=== PATIENT | female | born 1995 | race Caucasian/White ===

== ENCOUNTER → 2017-08-30 | Outpatient (CLI) | payer BC | END | disposition home or self-care (01) | LOC: C.LABSPEC 10:52 | PROVIDERS: ATTEND Physician Assistant | DX: N91.2 Amenorrhea, unspecified (principal) ==

== ENCOUNTER 2023-10-30 07:46 | Inpatient (IN) ==
[2023-10-30] MEDS ORDERED: LIDOCAINE 1% LOCAL 20 ML VIAL INFIL PRN (08:49)
[2023-10-30] MEDS ORDERED: OXYTOCIN 30 UNITS/NSS 30 UNITS/500 ML BAG IV PRN (08:49)
[2023-10-30 08:56] LABS: Hematocrit (blood only) 32.7 % (37.0-47.0); Hemoglobin 11.1 g/dl (12.0-16.0); Mean Corpuscular Hgb Conc 33.9 g/dL (32.0-36.0); Mean Corpuscular Volume 97.3 fL (80.0-100.0); Mean Platelet Volume 10.3 fL (9.4-12.4); Platelet Count 149 K/uL (130-400); RDW Coefficient of Variation 12.7 % (11.5-14.5); RDW Standard Deviation 44.4 fL (36.4-46.3); Red Blood Count 3.36 M/uL (4.20-5.40); White Blood Count 7.98 K/ul (4.8-10.8)
--- NOTE | 2023-10-30 09:41 | Obstetrical Progress Note ---
Date of Service October 30, 2023 Assessment & Plan (1) : Plan: at 39 + weeks GDMA! Pending macrosomia FHR; CAT1 Ctx Minimal VE: Ft/thick/post Good bulb placed w/o difficulty. 30cc saline used Mild bleeding noticed after placement Admission and Anticipated Discharge Date Admission Date: October 30, 2023 Results & Data Vital Signs (Past 12 Hours) Vital Signs Temp Pulse Resp BP 10/30/23 07:57 101 H 117/61 10/30/23 07:53 36.6 C 18
[2023-10-30] MEDS: LACTATED RINGER'S 1,000 ML IV PRN (10:05)
--- NOTE | 2023-10-30 12:16 | Obstetrical Progress Note ---
Date of Service October 30, 2023 Assessment & Plan (1) : Plan: Induction day off Good fell out FHR ; CAT1 Ctx; 2-4mins VE; 3/50/-3 EFW By Lisa; 8-9lbs Pitocin augmentation Admission and Anticipated Discharge Date Admission Date: October 30, 2023 Results & Data Vital Signs (Past 12 Hours) Vital Signs Temp Pulse Resp BP 10/30/23 07:57 101 H 117/61 10/30/23 07:53 36.6 C 18
[2023-10-30] MEDS: OXYTOCIN 30 UNITS/NSS 30 UNITS/500 ML BAG IV PRN (12:17)
[2023-10-30] MEDS ORDERED: NALOXONE HCL 0.4 MG/1 ML VIAL/CARP IV PRN (16:05)
[2023-10-30] MEDS ORDERED: NALOXONE HCL 1 MG in SODIUM CHLORIDE 0.9% 1,000 ML IV PRN (16:05)
[2023-10-30] MEDS ORDERED: ROPIVACAINE 0.5% PF 5 MG/ML 20 ML VIAL EPI PRN (16:05)
[2023-10-30] MEDS ORDERED: NALBUPHINE HCL 5 MG in SYRINGE 0 ML IV PRN (16:05)
[2023-10-30] MEDS ORDERED: LIDOCAINE 2% MPF LOCAL 5 ML VIAL EPI PRN (16:05)
[2023-10-30] MEDS ORDERED: diphenhydrAMINE 50 MG/ML VIAL IV PRN (16:05)
[2023-10-30] MEDS: fentANYL 2 MCG/ML BUPIVacaine 0.125%-NSS 100ML BAG EPI PRN (16:20)
--- NOTE | 2023-10-30 16:24 | Anesthesiology Consultation ---
Date of Service October 30, 2023 Assessment & Plan Chart Review Chart Review: Acceptable Risk for Labor Epidural Consults Requested none History Height/Weight Height: 5 ft 9 in Weight: 108.409 kg Allergies Allergy/AdvReac Type Severity Reaction Status Date / Time No Known Allergies Allergy Verified 04/23/23 08:42 Medications Home Medications Medication Instructions Recorded Confirmed Last Taken vit with calcium-iron 1 tab PO HS 04/18/23 10/30/23 10/29/23 22:00 fum-folic acid 60 mg-0.8 mg tablet Active Medications Generic Name Dose Route Start Last Admin Trade Name Freq PRN Reason Stop Dose Admin Lactated Ringer's 1,000 mls @ 125 mls/hr 10/30/23 08:49 10/30/23 15:35 Lr IV 11/01/23 08:48 999 mls/hr .Q8H PRN Administration L&D Protocol Protocol Oxytocin 30 units in 500 mls @ 12 mls/hr 10/30/23 11:55 10/30/23 15:00 Pitocin 30 Units/Nss IV 11/01/23 11:54 0.72 units/hr .Q24H PRN 12 mls/hr Labor Induction/Augmentation Titration Protocol 0.72 UNITS/HR Past Surgical History Surgical History (Updated 10/30/23 @ 08:14 by Ciarra Betancourt RN) Holden teeth removed No history of previous surgery Social History Smoking Status: Never smoker Do You Dip or Chew Tobacco: No Hx Alcohol Use: No Hx Substance Use: No Physical Exam Vital Signs Last Vital Signs Temp 36.9 C 10/30/23 12:20 Pulse 85 10/30/23 16:21 Resp 20 10/30/23 12:20 BP 108/71 10/30/23 16:21 Pulse Ox 97 10/30/23 16:21 Testing Laboratory Results 10/30/23 08:33 Blood Type A Positive 10/30/23 08:33 Antibody Screen NEGATIVE 10/30/23 08:33 10/30/23 10:08 POC Glucose 76
[2023-10-30] MEDS ORDERED: NURSING L&D Epidural Breakthrough Pain Update ONE (17:56)
--- OUTSIDE RECORDS SUMMARY | 2023-10-30 17:57 | External Medical Summary | Summary of Care ---
Author Name Unknown Organization [facility] Address [address] [place] [place] [address] Phone [phone] Care Team Providers Care Rn Imcu Name Role Phone Malinda Owens Primary Care Provider [phone] Reason for Visit * Reason Comments Return Visit Encounter Details Date Type Department Care Team (Late st Contact Info) Description 10/29/2023 8:45 AM EDT [facility] [address] [place] [address] Praveen aCrranza MD [address] [place] [id number] Encounter for supervision of other normal , unspecified trimester*; Class 1 obesity due to excess calories without serious comorbidity with body mass index (BMI) of 33.0 to 33.9 in adult; Antepartum anemia complicating ; Excessive growth affecting management of , antepartum, single or unspecified fetus; Diet controlled gestational diabetes mellitus (GDM) in third trimester Allergies No known active allergiesdocumented as of this encounter (statuses as of 10/29/2023) Medications Medication Sig Dispensed Refills Start Date End Date Status 19 29-1 MG Oral Tablet Chewable Take by mouth. 0 Active Vitamin B-12 1000 MCG Oral Tablet (Cyanocobalamin)Indica tions:Antepartum anemia complicating Take 1 Tablet by mouth in the morning. 30 Tablet 5 08/14/2023 Active OneTouch Verio Flex System w/Device KitIndications:Diet controlled gestational diabetes mellitus (GDM) in third trimester Use to test blood sugars 4 times daily (fasting, 1 hour after breakfast, lunch, and dinner) 1 Kit 0 09/20/2023 Active [employer]ite In Vitro Strip (Glucose Blood)Indications:Diet controlled gestational diabetes mellitus (GDM) in third trimester Use to test blood sugars 4 times daily (fasting, 1 hour after breakfast, lunch, and dinner) 125 Strip 6 09/20/2023 Active [employer] Delica Lancets 30GIndications:Diet controlled gestational diabetes mellitus (GDM) in third trimester Use to test blood sugars 4 times daily (fasting, 1 hour after breakfast, lunch, and dinner) 200 Each 6 09/20/2023 Active documented as of this encounter (statuses as of 10/29/2023) Active Problems Problem Noted Date Diagnosed Date Diet controlled gestational diabetes mellitus (GDM) in third trimester 09/20/2023 Overview: 09/20/23 Repeated 3hr GTT at 33w d/t LGA, failed. MFM referral placed for ADAPT. Diagnosed at 33 weeks Nutrition consult 09/24/23 Lab Results Component Value Date/Time 50-G GESTATIONAL GLUCOSE, 1 HOUR - [facility] 169 (H) 04/19/2023 09:23 AM 100-G GESTATIONAL GLUCOSE, 1 HOUR - [facility] 216 (H) 09/19/2023 01:52 PM 100-G GESTATIONAL GLUCOSE, 2 HOUR - [facility] 258 (H) 09/19/2023 02:54 PM 100-G GESTATIONAL GLUCOSE, 3 HOUR - [facility] 139 09/19/2023 03:51 PM 100-G GESTATIONAL GLUCOSE, FASTING - [facility] 74 09/19/2023 12:54 PM 09/21/23: MFM ADAPT consult complete. Enrolled in Current Health. 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 Instructions provided to report blood sugars each week for MFM review 09/25/23: RPM reviewed; Stable; continue diet controlled 10/03/23: RPM reviewed; Stable 10/09/23: RPM reviewed; Stable overall; continue diet controlled 10/16/23: RPM reviewed; Stable 10/23/23: RPM reviewed; Stable; diet controlled Last Assessment & Plan: She presents for follow-up of growth secondary to GDMA1, previously noted LGA, and class I obesity. Blood glucose values have been well-controlled with diet. Today's ultrasound notes the following: The estimated weight is large for gestational age in the 94th percentile. The visualized anatomy is unremarkable in appearance. The DEYSI is normal. Excessive growth affec ting management of mother, antepartum 09/14/2023 Last Assessment & Plan: CONSIDERATIONS: Reviewed that weight greater than 90%ile is considered "large for gestational age" (LGA). Discussed associated risks (e.g., difficult labor progress or delivery, hemorrhage, shoulder dystocia). LGA may be related to constitutional factors (e.g., male gender, ethnicity), environmental factors (maternal diabetes/obesity/weight gain), or genetic conditions. Discussed the limitations of ultrasound in predicting weight, especially at later gestational ages. RECOMMENDATIONS: Recommend delivery without trial of labor for estimated weight greater than 4500 gm in the diabetic woman. Based on the current EFW, she is a candidate for a trial of labor. Concern for macrosomia/LGA is NOT an indication for induction of labor, though elective induction after 39 weeks can be considered per patient/provider preferences. The patient should discuss further management and delivery plan with her primary OB provider. Iron deficiency anemia 08/21/2023 Antepartum anemia complicating 024 Overview: Receiving IV iron infusions Anemia Labs Lab Results Component Value Date/Time HGB 10.7 (L) 08/13/2023 07:56 AM HGB 12.2 04/18/2023 12:00 AM HCT 32.3 (L) 08/13/2023 07:56 AM FERRITIN - [facility] 19 08/13/2023 07:56 AM VITAMIN B12 - [facility] 160 (L) 08/13/2023 07:56 AM FOLIC ACID - [facility] >20.0 08/13/2023 07:56 AM IRON BINDING CAPACITY - [facility] 430 (H) 08/13/2023 07:56 AM MCV 103.2 08/13/2023 07:56 AM Last Assessment & Plan: CONSIDERATIONS: Severe maternal anemia (hemoglobin levels below 6 to 7 g/dl) is associated with oligohydramnios, cerebral vasodilation, delivery, miscarriage, growth restriction, nonreassuring heart rate patterns, and stillbirth. There is also an increased risk for maternal . RECOMMENDATIONS: If hemoglobin is below 11 g/dl during first and third trimesters or less than10.5 g/dL in 2nd trimester, we recommend anemia studies to assess serum ferritin, iron, iron binding capacity, transferritin saturation, and hemoglobin electrophoresis. If iron-deficiency anemia is confirmed, then we recommend iron supplementation with oral (preferred) or parenteral therapy (if recommended by blood conservation program after oral therapy has failed) as indicated to keep hemoglobin level above 11 g/dl during . Oral iron should be taken with orange juice. If anemia studies do not reflect iron deficiency anemia we recommend checking TSH, B12 and folate levels and referral to a tire mold tester. If hemoglobin levels are below 8 g/dl, we recommend Maternal Medicine ultrasound for growth every 4 weeks after 24 weeks. Consider a blood transfusion if hemoglobin levels fall below 6 g/dL. ([employer] Bulletin Number 95, December,). Consider Venofer transfusions if patient labs supportive of iron deficiency anemia with dosing of 300 mg IV weekly x 3 weeks Encounter for supervision of other normal , unspecified trimester 04/03/2023 Class 1 obesity due to exces s calories without serious comorbidity with body mass index (BMI) of 33.0 to 33.9 in adult 04/03/2023 Overview: Early glucola Estimated Date of Delivery Comme nts Yes 11/02/2023 Based on Ultraso und documented as of this encounter (statuses as of 10/29/2023) Resolved Problems Problem Noted Date Diagnosed Date Resolved Date Abnormal glucose tolerance i n mother complicating 04/19/2023 08/31/2023 Overview: Failed early glucola. 3hr GTT ordered documented as of this encounter (statuses as of 10/29/2023) Immunizations Name Administration Dates Next Due DTP Vaccine 01/02/1997, 5,1994,05/19 DTaP Dipth/Tet/Acell Pertussis (Infanrix), Peds 01/18/2000,01/02/1997 HEP A - Hepatitis A (Adult > 18 yrs) 08/22/2019 HPV Vaccine, 4-Valent 11/13/2012,03/21/2012 Haemophilius B (HIB), unspecified 1994,,1994 Hep A - Hepatitis A (ped/ado le, 1-18 Yrs) 11/13/2012,02/02/2010 Hepatitis A Vaccine 02/02/2010 Hepatitis B, 0-19 yrs 02/17/1995,1994,07/1993 IPV - Polio Virus Vaccine (Inact) 01/18/2000 MMR - Measles/Mumps/Rubella Vaccine 01/18/2000,0 07/26/1995 Meningococcal Conjugate Vacc ine (Menactra/Menveo) 02/02/2010 Meningococcal MCV4P Conjugat e Vaccine (Menactra) 11/13/2012 OPV - Polio Virus Vaccine (Oral) 000,01/02/1997,1994,05/19 Seasonal Influenza Virus Vac cine, Unspecified Formulation 04/08/2012,04/13/2010,04/09/2009 Seasonal Influenza, PF, 6 M & above, IM , (FluLaval or Fluzone) 05/17/2023,08/21/2019 Seasonal Influenza, Split, I IV3, With Preserve, Inj 04/08/2012,04/13/2010 TDAP (age 10 and older)(Boostrix) 08/13/2023,11/2019 TDAP (age 11 and older)(Adacel) 09/17/2008 Varicella Vaccine (Chicken Pox) 09/17/2008,11/07 documented as of this encounter Social History Tobacco Use Types Packs/Day Years Used Date Smoking Tobacco: Never Smokeless Tobacco: Never Alcohol Use Standard Drinks/Week Comments Not Currently 0 (1 standard drink = 0.6 oz pur e alcohol) Hunger Vital Sign Answer Date Recorded Within the past 12 months, y ou worried that your food would run out before you got the money to buy more. Never true 01/20/20 23 Within the past 12 months, t he food you bought just didn't last and you didn't have money to get more. Never true 01/19/2023 [place] Depression Scale Answer Date Recorded [place] Depression Scale Total 5 09/28/2023 The thought of harming myself has occurred to me . Never 09/28/2023 Estimated Date of Delivery Comme nts Yes 11/02/2023 Based on Ultraso und Sex and Gender Information Value Date Recorded Sex Assigned at Female 01/19/2023 1:52 PM EDT Gender Identity Female 01/19/2023 1:52 PM EDT Sexual Orientation Straight 01/19/2023 1: 52 PM EDT Job Start Date Occupation Industry Not on file Not on file Not on file documented as of this encounter Last Filed Vital Signs Vital Sign Reading Time Taken Comments Blood Pressure 100/60 10/29/2023 9:02 AM EDT Pulse - - Temperature - - Respiratory Rate - - Oxygen Saturation - - Inhaled Oxygen Concentration - - Weight 108.4 kg (239 lb) 10/29/2023 9:02 AM EDT Height 175.3 cm (5' 9") 10/29/2023 9:02 AM EDT Body Mass Index 35.29 10/29/2023 9:02 AM EDT documented in this encounter Progress Notes * Praveen Carranza MD - 10/29/2023 9:20 AM EDT Pt doing well No complaints VE; FT Tamara for induction tomorrow documented in this encounter Nursing Notes * Eli Calles LPN - 10/29/2023 8:59 AM EDT 39w3d IOL tomorrow documented in this encounter Plan of Treatment Upcoming Encounters Date Type Department Care Team (Late st Contact Info) Description 05/12/2024 10:00 AM EST Office Visit Family Practice [facility] [address] [address] Malinda Owens CRNP [address] [id number] Health Maintenance Due Date Last Done Comments Depression Screening 2006 GARDASIL-HPV IMMUNIZATION SERIES (3 - 3-dose series) 02/05/2013 11/13/2012, 03/21/2012 COVID-19 Vaccine ( - 2022- season) 2023 Pap Smear 01/29/2026 01/29/2023, 11/17, 07/17/2018, Additional history exists DTaP,Tdap,and Td Vaccines (9 - Td or Tdap) 08/13/2033 08/13/2023, 08/22/2019, 09/17/2008, Additional history exists Hepatitis B Completed 02/17/1995, 07/1993, 1994 MENINGOCOCCAL (MENACTRA/MENVEO) Completed 11/13/2012, 02/02/2010 Influenza Vaccine (FLU shot) Completed , 08/21/2019, 04/08/2012, Additional history exists Pneumococcal Vaccine: Pediatrics (0 to 5 Years) and At-Risk Patients (6 to 64 Years) Aged Out No longer eligible based on patient's age to complete this topic documented as of this encounter Medical Devices Not on filedocumented as of this encounter Visit Diagnoses Diagnosis Encounter for supervision of other normal , unspecified trimester- Primary Class 1 obesity due to excess calories without serious comorbidity with body mass index (BMI) of 33.0 to 33.9 in adult Antepartum anemia complicating Anemia, antepartum Excessive growth affecting management of , antepartum, single or unspecified fetus Diet controlled gestational diabetes mellitus (GDM) in third trimester documented in this encounter Care Teams Rn Imcu Relationship Specialty Start Date End Date Malinda Owens CRNP [address] [id number] PCP - General Nurse Practitioner 09/20/23 documented as of this encounter
--- OUTSIDE RECORDS SUMMARY | 2023-10-30 17:57 | External Medical Summary | Summary of Care ---
Author Name Unknown Organization [facility] Address [address] [place] [place] [address] Phone [phone] Care Team Providers Care Foster Parent Name Role Phone Malinda Owens Primary Care Provider [phone] Reason for Visit * Reason Comments Return Visit Encounter Details Date Type Department Care Team (Late st Contact Info) Description 10/24/2023 3:00 PM EDT [facility] [address] [place] [address] Praveen Carranza MD [address] [place] [phone] Encounter for supervision of other normal , [...] as of this encounter (statuses as of 10/24/2023) Medications Medication Sig Dispensed Refills Start Date [...] and dinner) 1 Kit 0 09/20/2023 Active [employer] In Vitro Strip (Glucose Blood)Indications:Diet controlled gestational diabetes mellitus (GDM) in third trimester Use to test blood sugars 4 times daily (fasting, 1 hour after breakfast, lunch, and dinner) 125 Strip 6 09/20/2023 Active [employer] Delica Lancets 30GIndications:Diet controlled gestational diabetes mellitus (GDM) in third trimester Use to test blood sugars 4 times daily (fasting, 1 hour after breakfast, lunch, and dinner) 200 Each 6 09/20/2023 Active documented as of this encounter (statuses as of 10/24/2023) Active Problems Problem Noted Date Diagnosed Date [...] complete. Enrolled in Current Health. 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 Instructions provided [...] and folate levels and referral to a linux administrator. If hemoglobin levels are below 8 g/dl, we recommend Maternal Medicine ultrasound for growth every 4 weeks after 24 weeks. Consider a blood transfusion if hemoglobin levels fall below 6 g/dL. ([employer] Bulletin Number 95, December,). Consider Venofer [...] as of this encounter (statuses as of 10/24/2023) Resolved Problems Problem Noted Date Diagnosed Date Resolved Date Abnormal glucose tolerance i n mother complicating 04/19/2023 08/31/2023 Overview: Failed early glucola. 3hr GTT ordered documented as of this encounter (statuses as of 10/24/2023) Immunizations Name Administration Dates Next Due DTP [...] money to get more. Never true 01/19/2023 [place] Depression Scale Answer Date Recorded [place] Depression Scale Total 5 09/28/2023 The thought [...] Sign Reading Time Taken Comments Blood Pressure 98/60 10/24/2023 3:08 PM EDT Pulse - - Temperature - - Respiratory Rate - - Oxygen Saturation - - Inhaled Oxygen Concentration - - Weight - - Height 175.3 cm (5' 9") 10/24/2023 3:08 PM EDT Body Mass Index - - documented in this encounter Progress Notes * Praveen Carranza MD - 10/24/2023 3:42 PM EDT Pt doing well GDMA1 on diet EFW done by MFM is 8;9lbs Discussed induction of labor Pt is agreeable VE; ft.post/thick Tamara for induction on 10/30/23 * Eli Calles LPN - 10/24/2023 3:08 PM EDT 38w5d Concerns with growth scan documented in this encounter Plan of Treatment Upcoming Encounters Date Type Department Care Team (Late st Contact Info) Description 10/29/2023 8:45 AM EDT Office Visit Gynecology/Obstetrics [facility] [address] [address] Praveen Carranza MD [address] [phone] 05/12/2024 10:00 AM EST Office Visit Family Practice [facility] [address] [phone] Malinda Owens CRNP [address] [place] [place] [address] Health Maintenance Due Date Last Done Comments Depression Screening 2006 GARDASIL-HPV IMMUNIZATION SERIES (3 - 3-dose series) 02/05/2013 11/13/2012, 03/21/2012 COVID-19 Vaccine ( season) 2023 Pap Smear 01/29/2026 01/29/2023, 11/17, [...] trimester documented in this encounter Care Teams Foster Parent Relationship Specialty Start Date End Date Malinda Owens CRNP [address] [phone] PCP - General Nurse Practitioner 09/20/23 documented as of this encounter
--- OUTSIDE RECORDS SUMMARY | 2023-10-30 17:58 | External Medical Summary | Summary of Care ---
Author Name Unknown Organization [facility] Address [address] [place] [address] Phone [phone] Care Team Providers Care Latex Caster Name Role Phone Malinda Owens Primary Care Provider [phone] Reason for Visit * Reason Comments Ultrasound Encounter Details Date Type Department Care Team (Late st Contact Info) Description 10/19/2023 2:45 PM EDT Office Visit Fire Official Obstetrics Maternal Medicine, [place] [address] [place], [place] [phone] Cam Sim, [address], [place] [phone] Diet controlled gestational diabetes mellitus (GDM) in third trimester*; Excessive growth affecting management of , antepartum, single or unspecified fetus Allergies No known active allergiesdocumented as of this encounter (statuses as of 10/22/2023) Medications Medication Sig Dispensed Refills Start Date End Date Status 19 29-1 MG Oral Tablet Chewable Take by mouth. 0 Active Vitamin B-12 1000 MCG Oral Tablet (Cyanocobalamin)Indica tions:Antepartum anemia complicating Take 1 Tablet by mouth in the morning. 30 Tablet 5 08/14/2023 Active STAR FESTIVALToAskBot Verio Flex System w/Device KitIndications:Diet controlled gestational diabetes mellitus (GDM) in third trimester Use to test blood sugars 4 times daily (fasting, 1 hour after breakfast, lunch, and dinner) 1 Kit 0 09/20/2023 Active Affaredelgiornouch Verio In Vitro Strip (Glucose Blood)Indications:Diet controlled gestational diabetes mellitus (GDM) in third trimester Use to test blood sugars 4 times daily (fasting, 1 hour after breakfast, lunch, and dinner) 125 Strip 6 09/20/2023 Active OneTouch Mayank Lancets 30GIndications:Diet controlled gestational diabetes mellitus (GDM) in third trimester Use to test blood sugars 4 times daily (fasting, 1 hour after breakfast, lunch, and dinner) 200 Each 6 09/20/2023 Active documented as of this encounter (statuses as of 10/22/2023) Active Problems Problem Noted Date Diagnosed Date [...] complete. Enrolled in Current Health. Plans to cone picker meter from pharmacy today. Instructions provided to report blood sugars each week for MFM review 09/25/23: RPM reviewed; Stable; continue diet controlled 10/03/23: RPM reviewed; Stable 10/09/23: RPM reviewed; Stable overall; continue diet controlled 10/16/23: RPM reviewed; Stable Last Assessment & Plan: She presents for [...] and folate levels and referral to a actuarial science professor. If hemoglobin levels are below 8 g/dl, we recommend Maternal Medicine ultrasound for growth every 4 weeks after 24 weeks. Consider a blood transfusion if hemoglobin levels fall below 6 g/dL. ([employer] Practice Bulletin Number 95, December,). Consider Venofer [...] as of this encounter (statuses as of 10/22/2023) Resolved Problems Problem Noted Date Diagnosed Date Resolved Date Abnormal glucose tolerance i n mother complicating 04/19/2023 08/31/2023 Overview: Failed early glucola. 3hr GTT ordered documented as of this encounter (statuses as of 10/22/2023) Immunizations Name Administration Dates Next Due DTP [...] money to get more. Never true 01/19/2023 [place] Depression Scale Answer Date Recorded [place] Depression Scale Total 5 09/28/2023 The thought [...] on file documented as of this encounter Progress Notes * Cam Sim, DO - 10/19/2023 5:36 PM EDT MATERNAL MEDICINE VISIT Yuli Gutierrez is at 38w0d who presents to [facility] for an ultrasound and follow-up of her high risk . PHYSICAL EXAM: General: pleasant, alert and oriented, no acute distress She is being seen today by Maternal- Medicine for the following reasons: Problem List Items Addressed This Visit Excessive growth affecting management of mother, antepartum CONSIDERATIONS: Reviewed that weight greater than 90%ile is considered "large for gestational age" (LGA). Discussed associated risks (e.g., difficult labor progress or delivery, hemorrhage, shoulderdystocia). LGA may be related to constitutional factors (e.g., male gender, ethnicity), environmental factors (maternal diabetes/obesity/weight gain), or genetic conditions. Discussed the limitations of ultrasound in predicting weight, especially at later gestationalages. RECOMMENDATIONS: Recommend delivery without trial of labor for estimated weight greater than 4500 gm in the diabetic woman. Based on the current EFW, she is a candidate for a trial of labor. Concern for macrosomia/LGA is NOT an indication for induction of labor, though elective induction after 39 weeks can be considered per patient/provider preferences. The patient should discuss furthermanagement and delivery plan with her primary OB provider. Diet controlled gestational diabetes mellitus (GDM) in third trimester - Primary She presents for follow-up of growth secondary to GDMA1, previously noted LGA, and class I obesity. Blood glucose values have been well-controlled with diet. Today's ultrasound notes the following: The estimated weight is large for gestational age in the 94th percentile. The visualized anatomy is unremarkable in appearance. The DEYSI is normal. We reviewed today's ultrasound findings. (For full report, please refer to ultrasound report provided separately). Ms. Gutierrez's questions were answered to her satisfaction. RECOMMENDATIONS: No follow-up with Maternal Medicine is necessary unless further questions or indications arise. Thank you for allowing us to participate in the care of this patient. Please call with any questions. Cam Sim DO 10/19/2023 5:36 PM documented in this encounter Miscellaneous Notes * Assessment & Plan Note - Cam Sim DO - 10/19/2023 5:36 PM EDT Associated Problem(s): Diet controlled gestational diabetes mellitus (GDM) in third trimester She presents for follow-up of growth secondary to GDMA1, previously noted LGA, and class I obesity. Blood glucose values have been well-controlled with diet. Today's ultrasound notes the following: The estimated weight is large for gestational age in the 94th percentile. The visualized anatomy is unremarkable in appearance. The DEYSI is normal. * Assessment & Plan Note - Cam Sim DO - 10/19/2023 5:34 PM EDT Associated Problem(s): Excessive growth affecting management of mother, antepartum CONSIDERATIONS: Reviewed that weight greater than 90%ile is considered "large for gestational age" (LGA). Discussed associated risks (e.g., difficult labor progress or delivery, hemorrhage, shoulderdystocia). LGA may be related to constitutional factors (e.g., male gender, ethnicity), environmental factors (maternal diabetes/obesity/weight gain), or genetic conditions. Discussed the limitations of ultrasound in predicting weight, especially at later gestationalages. RECOMMENDATIONS: Recommend delivery without trial of labor for estimated weight greater than 4500 gm in the diabetic woman. Based on the current EFW, she is a candidate for a trial of labor. Concern for macrosomia/LGA is NOT an indication for induction of labor, though elective induction after 39 weeks can be considered per patient/provider preferences. The patient should discuss furthermanagement and delivery plan with her primary OB provider. documented in this encounter Plan of Treatment Upcoming Encounters Date Type Department Care Team (Gregorio Contact Info) Description 10/24/2023 3:00 PM EDT Office Visit Gynecology/Obstetrics [facility] [address] [place] [address] Praveen Carrazna MD [address] [place] [address] 10/29/2023 8:45 AM EDT Office Visit Gynecology/Obstetrics [facility] [address] [place] [address] Praveen Carranza MD [address] [place] [address] 05/12/2024 10:00 AM EST Office Visit Family Practice [facility] [address] [place] [address] Malinda Owens CRNP [address] [place] [address] Health Maintenance Due Date Last Done Comments Depression Screening 2006 GARDASIL-HPV IMMUNIZATION SERIES (3 - 3-dose series) 02/05/2013 11/13/2012, 03/21/2012 COVID-19 Vaccine (2022- season) 2023 Pap Smear 01/29/2026 01/29/2023, 11/17, [...] as of this encounter Visit Diagnoses Diagnosis Diet controlled gestational diabetes mellitus (GDM) in third trimester- Primary Excessive growth affecting management of , antepartum, single or unspecified fetus documented in this encounter Care Teams Latex Caster Relationship Specialty Start Date End Date Malinda Owens CRNP [address] [place] [address] PCP - General Nurse Practitioner 09/20/23 documented as of this encounter
--- OUTSIDE RECORDS SUMMARY | 2023-10-30 17:58 | External Medical Summary | Summary of Care ---
Author Name Unknown Organization [facility] Address [address] [place] [address] Phone [phone] Care Team Providers Care Child & Adolescent Psychiatrist Name Role Phone Malinda Owens Primary Care Provider [phone] Reason for Visit * Reason Comments Ultrasound Encounter Details Date Type Department Care Team (Late st Contact Info) Description 10/19/2023 2:45 PM EDT Office Visit Microbiology Lab Assistant Obstetrics Maternal Medicine, [place] [address] [place], [place] [phone] Cam Sim, [address] [place], [place] [phone] Diet controlled gestational diabetes mellitus (GDM) in third trimester*; Excessive growth affecting management of , antepartum, single or unspecified fetus Allergies No known active allergiesdocumented as of this encounter (statuses as of 10/19/2023) Medications Medication Sig Dispensed Refills Start Date End Date Status 19 29-1 MG Oral Tablet Chewable Take by mouth. 0 Active Vitamin B-12 1000 MCG Oral Tablet (Cyanocobalamin)Indica tions:Antepartum anemia complicating Take 1 Tablet by mouth in the morning. 30 Tablet 5 08/14/2023 Active IZI Medical ProductsToFuton Verio Flex System w/Device KitIndications:Diet controlled gestational diabetes mellitus (GDM) in third trimester Use to test blood sugars 4 times daily (fasting, 1 hour after breakfast, lunch, and dinner) 1 Kit 0 09/20/2023 Active simplifyMDuch Verio In Vitro Strip (Glucose Blood)Indications:Diet controlled gestational diabetes mellitus (GDM) in third trimester Use to test blood sugars 4 times daily (fasting, 1 hour after breakfast, lunch, and dinner) 125 Strip 6 09/20/2023 Active OneTouch Delshantel Lancets 30GIndications:Diet controlled gestational diabetes mellitus (GDM) in third trimester Use to test blood sugars 4 times daily (fasting, 1 hour after breakfast, lunch, and dinner) 200 Each 6 09/20/2023 Active documented as of this encounter (statuses as of 10/19/2023) Active Problems Problem Noted Date Diagnosed Date [...] complete. Enrolled in Current Health. Plans to chicken picker meter from pharmacy today. Instructions provided [...] and folate levels and referral to a shoe coverer. If hemoglobin levels are below 8 g/dl, we recommend Maternal Medicine ultrasound for growth every 4 weeks after 24 weeks. Consider a blood transfusion if hemoglobin levels fall below 6 g/dL. ([employer] Practice Bulletin Number 95, December,). Consider Venofer [...] as of this encounter (statuses as of 10/19/2023) Resolved Problems Problem Noted Date Diagnosed Date Resolved Date Abnormal glucose tolerance i n mother complicating 04/19/2023 08/31/2023 Overview: Failed early glucola. 3hr GTT ordered documented as of this encounter (statuses as of 10/19/2023) Immunizations Name Administration Dates Next Due DTP [...] money to get more. Never true 01/19/2023 [place] Depression Scale Answer Date Recorded [place] Depression Scale Total 5 09/28/2023 The thought [...] Gutierrez is at 38w0d who presents to [facility] for an ultrasound and follow-up of her [...] 10/24/2023 3:00 PM EDT Office Visit Gynecology/Obstetrics [facility] [address] [place] [address] Praveen Carranza MD [address] [place] [address] 10/29/2023 8:45 AM EDT Office Visit Gynecology/Obstetrics [facility] [address] [place] [address] Praveen Carranza MD [address] [place] [address] 05/12/2024 10:00 AM EST Office Visit Family Practice [facility] [address] [place] [address] Malinda Owens CRNP [address] [place] [address] Health Maintenance Due Date Last Done Comments [...] fetus documented in this encounter Care Teams Child & Adolescent Psychiatrist Relationship Specialty Start Date End Date Malinda Owens CRNP [address] [place] [place] [address] PCP - General Nurse Practitioner 09/20/23 documented as of this encounter
--- OUTSIDE RECORDS SUMMARY | 2023-10-30 17:58 | External Medical Summary | Summary of Care ---
Author Name Unknown Organization [facility] Address [address] [facility] [place] [address] Phone [phone] Care Team Providers Care Art Installer Name Role Phone Unavailable Primary Care Provider Unavailabl e Reason for Visit * Reason Comments Infusion Venofer 2/ Encounter Details Date Type Department Care Team (Latest Contact Info) Description 08/31/2023 10:15 AM EDT Hem/Onc Treatment Hematology/Oncology Treatment, [address] [address] [place], Chair [address] [address] Antepartum anemia complicating *; Iron deficiency anemia, unspecified iron deficiency anemia type Allergies No known active allergiesdocumented as of this encounter (statuses as of 10/19/2023) Medications Medication Sig Dispensed Refills Start Date End Date Status 19 29-1 MG Oral Tablet Chewable Take by mouth. 0 Active Vitamin B-12 1000 MCG Oral Tablet (Cyanocobalamin)Ind ications:Antepartum anemia complicating Take 1 Tablet by mouth in the morning. 30 Tablet 5 08/14/2023 Active Doxylamine Succinate (Sleep) 25 MG Oral Tablet (Unisom SleepTabs) Take 1 Tablet by mouth at bedtime as needed. 0 10/02/2023 Discontinued (Medication List Clean Up) documented as of this encounter (statuses as of 10/19/2023) Active Problems Problem Noted Date Diagnosed Date Iron deficiency anemia 08/21/2023 Antepartum anemia complicating [...] and folate levels and referral to a technical sales advisor. If hemoglobin levels are below 8 g/dl, we recommend Maternal Medicine ultrasound for growth every 4 weeks after 24 weeks. Consider a blood transfusion if hemoglobin levels fall below 6 g/dL. ([employer] [facility] Practice Bulletin Number 95, December,). Consider Venofer [...] money to get more. Never true 01/19/2023 [place]da Depression Scale Answer Date Recorded [place]da Depression Scale Total 9 04/03/2023 The thought of harming myself has occurred to me . Never 04/03/2023 Estimated Date of Delivery Comme nts Yes [...] Sign Reading Time Taken Comments Blood Pressure 130/75 08/31/2023 10:40 AM EDT Pulse 96 08/31/2023 10:40 AM EDT Temperature 37.1 C (98.7 F) 08/31/2023 10:40 AM E DT Respiratory Rate 18 08/31/2023 10:40 AM EDT Oxygen Saturation 95% 08/31/2023 10:40 AM EDT Inhaled Oxygen Concentration - - Weight - - Height - - Body Mass Index - - documented in this encounter Nursing Notes * Em Mendoza LPN - 08/31/2023 12:40 PM EDT 1215: Pt tolerated Venofer infusion well. PIV removed intact. Pt to return in one week. Discharged in stable condition. * Em Mendoza LPN - 08/31/2023 10:40 AM EDT Chair 8. Pt arrived for Venofer 2/3 infusion. PIV in RFA. Pt tolerated well. VSS. No complaints at this time. documented in this encounter Plan of Treatment Upcoming Encounters Date Type Department Care Team (Late st Contact Info) Description 10/24/2023 3:00 PM EDT Office Visit Gynecology/Obstetrics [facility] [address] [address] Praveen Carranza MD [address] [place] [address] 10/29/2023 8:45 AM EDT Office Visit Gynecology/Obstetrics [facility] [address] [address] Praveen Carranza MD [address] [place] [address] 05/12/2024 10:00 AM EST Office Visit Family Practice [facility] [address] [place] [address] Malinda Owens CRNP [address] [place] [address] Health Maintenance Due Date Last Done Comments [...] as of this encounter Visit Diagnoses Diagnosis Antepartum anemia complicating - Primary Anemia, antepartum Iron deficiency anemia, unspecified iron deficiency anemia type documented in this encounter Administered Medications Inactive Administered Medications - up to 3 most recent administrations Medication Order MAR Action Action Date Dose Rate Site Iron Sucrose (Venofer) 300 mg in NSS 250 mL ivpb 300 mg, IV Piggyback, ONCE, 1 dose, On Sun08/31/23 at 1200, Administer over 90 Minutes Start Infusion 08/31/2023 10:37 AM EDT 300 mg 166.67 mL/hr NSS infusion 500 mL, Intravenous, at 50 mL/hr, CONTINUOUS, Starting on Sun08/31/23 at 1130, Until Sun08/31/23 at 1645 Start Infusion 08/31/2023 10:37 AM EDT 500 mL 50 mL/hr documented in this encounter
--- OUTSIDE RECORDS SUMMARY | 2023-10-30 17:58 | External Medical Summary | Summary of Care ---
Author Name Unknown Organization [facility] Address [address] [facility] [place] [address] Phone [phone] Care Team Providers Care Health Professional Name Role Phone Unavailable Primary Care Provider Unavailabl e Reason for Visit * Reason Comments IV Therapy Venofer. Encounter Details Date Type Department Care Team (Latest Contact Info) Description 08/24/2023 2:00 PM EST Hem/Onc Treatment Hematology/Oncology Treatment, [place] [address] [place] [address] Antepartum anemia complicating *; Iron deficiency anemia, unspecified iron deficiency anemia type Allergies No known active allergiesdocumented as of this encounter (statuses as of 10/20/2023) Medications Medication Sig Dispensed Refills Start Date [...] as of this encounter (statuses as of 10/20/2023) Active Problems Problem Noted Date Diagnosed Date [...] and folate levels and referral to a director religious education. If hemoglobin levels are below 8 g/dl, we recommend Maternal Medicine ultrasound for growth every 4 weeks after 24 weeks. Consider a blood transfusion if hemoglobin levels fall below 6 g/dL. ([employer] Practice Bulletin Number 95, December,). Consider Venofer [...] as of this encounter (statuses as of 10/20/2023) Resolved Problems Problem Noted Date Diagnosed Date Resolved Date Abnormal glucose tolerance i n mother complicating 04/19/2023 08/31/2023 Overview: Failed early glucola. 3hr GTT ordered documented as of this encounter (statuses as of 10/20/2023) Immunizations Name Administration Dates Next Due DTP [...] money to get more. Never true 01/19/2023 [place] Depression Scale Answer Date Recorded [place] Depression Scale Total 9 04/03/2023 The thought [...] Sign Reading Time Taken Comments Blood Pressure 140/75 08/24/2023 2:00 PM EST Pulse 90 08/24/2023 2:00 PM EST Temperature 36.6 C (97.9 F) 08/24/2023 2:00 PM ES T Respiratory Rate 18 08/24/2023 2:00 PM EST Oxygen Saturation 100% 08/24/2023 2:00 PM EST Inhaled Oxygen Concentration - - Weight - - Height - - Body Mass Index - - documented in this encounter Nursing Notes * Lakia Donald RN - 08/24/2023 3:41 PM EST Goals: Patient will remain free from injury. Possible barriers to meeting goals: Fall risk d/t ambulation with IV pole. Stability of the patient: Moderately stable - low risk of patient condition declining or worsening Summary regarding today's goals: Met: Patient remained free of injury. Patient tolerated infusion well. Discharged in stable condition. * Lakia Donald RN - 08/24/2023 2:35 PM EST Chair 11. Patient arrived for venofer infusion with no acute complaints. Patient was oriented to treatment room and infusion process. Patient verbalized understanding. Call robledo within reach. PIV established. Safety and Risk for Injury Patient will remain free from injury. Ensure appropriate safety devices are available. Provide and maintain safe environment. documented in this encounter Plan of Treatment Upcoming Encounters Date Type Department Care Team (Late st Contact Info) Description 10/24/2023 3:00 PM EDT Office Visit Gynecology/Obstetrics [facility] [address] [address] Praveen Carranza MD [address] [place] [address] 10/29/2023 8:45 AM EDT Office Visit Gynecology/Obstetrics [facility] [address] [address] Praveen Carrnaza MD [address] [place] [address] 05/12/2024 10:00 AM EST Office Visit Family Practice [facility] [address] [place] [address] Malinda Owens CRNP [address] [place] [address] Health Maintenance Due Date Last Done Comments Depression Screening 2006 GARDASIL-HPV IMMUNIZATION SERIES (3 - 3-dose series) 02/05/2013 11/13/2012, 03/21/2012 COVID-19 Vaccine (24 season) 2023 Pap Smear 01/29/2026 01/29/2023, 11/17, [...] mg, IV Piggyback, ONCE, 1 dose, On Sun08/24/23 at 1545, Administer over 90 Minutes Start Infusion 08/24/2023 2:10 PM EST 300 mg 166.67 mL/hr NSS infusion 500 mL, Intravenous, at 50 mL/hr, CONTINUOUS, Starting on Sun08/24/23 at 1515, Until Sun08/24/23 at 1955 Start Infusion 08/24/2023 2:10 PM EST 500 mL 50 mL/hr documented in this encounter
--- OUTSIDE RECORDS SUMMARY | 2023-10-30 17:59 | External Medical Summary | Summary of Care ---
Author Name Unknown Organization [facility] Address [address] [place] [facility] [address] Phone [phone] Care Team Providers Care Rehabilitation Services Aide Name Role Phone Malinda Owens Primary Care Provider [phone] Reason for Visit * Reason Onset Date Comments Forms Request 10/09/2023 Encounter Details Date Type Department Care Team (Late st Contact Info) Description 10/09/2023 Telephone Gynecology/Obstetrics [facility] [address] [place] [address] Indira Cleveland CRNP [address] [place] [address] Forms Request Allergies No known active allergiesdocumented as of this encounter (statuses as of 10/11/2023) Medications Medication Sig Dispensed Refills Start Date End Date Status 19 29-1 MG Oral Tablet Chewable Take by mouth. 0 Active Vitamin B-12 1000 MCG Oral Tablet (Cyanocobalamin)Indica tions:Antepartum anemia complicating Take 1 Tablet by mouth in the morning. 30 Tablet 5 08/14/2023 Active Gecko AudioToToroleo Verio Flex System w/Device KitIndications:Diet controlled gestational diabetes mellitus (GDM) in third trimester Use to test blood sugars 4 times daily (fasting, 1 hour after breakfast, lunch, and dinner) 1 Kit 0 09/20/2023 Active Gecko AudioTouch Verio In Vitro Strip (Glucose Blood)Indications:Diet controlled gestational diabetes mellitus (GDM) in third trimester Use to test blood sugars 4 times daily (fasting, 1 hour after breakfast, lunch, and dinner) 125 Strip 6 09/20/2023 Active OneTouch Delica Lancets 30GIndications:Diet controlled gestational diabetes mellitus (GDM) in third trimester Use to test blood sugars 4 times daily (fasting, 1 hour after breakfast, lunch, and dinner) 200 Each 6 09/20/2023 Active documented as of this encounter (statuses as of 10/11/2023) Active Problems Problem Noted Date Diagnosed Date [...] complete. Enrolled in Current Health. Plans to pickers material handlers meter from pharmacy today. Instructions provided to report blood sugars each week for MFM review 09/25/23: RPM reviewed; Stable; continue diet controlled 10/03/23: RPM reviewed; Stable 10/09/23: RPM reviewed; Stable overall; continue diet controlled Last Assessment & Plan: She presents for an assessment of growth and anatomy secondary to GDMA1, previously noted LGA, and class I obesity. Per review of HIGH SCHOOL FRENCH TEACHER documentation of 09/25/23, blood glucose values have been well-controlled with diet, which she confirms today as well. Imaging reviewed: -- US report from 09/14/23 -- EFW [id number] (97%) We reviewed the results of today's ultrasound. The estimated weight is appropriate for gestational age in the 85th percentile. The visualized anatomy is unremarkable in appearance. Multiple structures are suboptimally imaged secondary to position/advanced gestational age. The amniotic fluid amount appears normal. We discussed that ultrasound is not able to identify all anomalies, but it is reassuring that no anomalies were seen today. We reviewed that the EFW today is at the upper range of normal, though there can be some variation with ultrasound assessment of weight with a range of variability today of about 1 lb. Given GDM and upper-normal measurements with a prior evaluation noting LGA, I suggested a repeat evaluation in about 3-4 weeks to assess growth prior to delivery. Excessive growth affec ting management of mother, antepartum 09/14/2023 Iron deficiency anemia 08/21/2023 Antepartum anemia complicating [...] and folate levels and referral to a physics and astronomy professor. If hemoglobin levels are below 8 g/dl, we recommend Maternal Medicine ultrasound for growth every 4 weeks after 24 weeks. Consider a blood transfusion if hemoglobin levels fall below 6 g/dL. ([employer] Physician Scribe Practice Bulletin Number 95, December,). Consider Venofer [...] as of this encounter (statuses as of 10/11/2023) Resolved Problems Problem Noted Date Diagnosed Date Resolved Date Abnormal glucose tolerance i n mother complicating 04/19/2023 08/31/2023 Overview: Failed early glucola. 3hr GTT ordered documented as of this encounter (statuses as of 10/11/2023) Immunizations Name Administration Dates Next Due DTP [...] money to get more. Never true 01/19/2023 [place] Depression Scale Answer Date Recorded [place] Depression Scale Total 5 09/28/2023 The thought [...] on file documented as of this encounter Miscellaneous Notes * Telephone Encounter - Ronda Turner LPN - 10/11/2023 3:15 PM EDT Copies in scan bin. Originals in triage for pickers material handlers at next visit. * Telephone Encounter - Ronda Turner LPN - 10/11/2023 10:20 AM EDT Forms on Indira's desk for signature. * Telephone Encounter - Ronda Turner LPN - 10/09/2023 2:02 PM EDT FMLA forms dropped off. Patient prefers to pick-up at [facility] next week. documented in this encounter Plan of Treatment Upcoming Encounters Date Type Department Care Team (Late st Contact Info) Description 10/16/2023 3:00 PM EDT Office Visit Gynecology/Obstetrics [facility] [address] [place] [address] Praveen Carranza MD [address] [place] [address] 10/19/2023 2:45 PM EDT Office Visit Supervisor Fine Grading Obstetrics Maternal Medicine, [place] [address] [place] [address] Cam Sim, [address] [place] [address] 10/19/2023 2:45 PM EDT Imaging Radiology [facility], [place] [address] [place] [address] 10/24/2023 3:00 PM EDT Office Visit Gynecology/Obstetrics [facility] [address] [place] [address] Praveen Carranza MD [address] [place] [address] 10/29/2023 8:45 AM EDT Office Visit Gynecology/Obstetrics [facility] [address] [place] [address] Praveen Carranza MD [address] [place] [address] 05/12/2024 10:00 AM EST Office Visit Family Practice [facility] [address] [place] [address] Malinda Owens CRNP [address] [place] [address] Health Maintenance Due Date Last Done Comments [...] Not on filedocumented as of this encounter Care Teams Rehabilitation Services Aide Relationship Specialty Start Date End Date Malinda Owens CRNP [address] [place] [address] PCP - General Nurse Practitioner 09/20/23 documented as of this encounter
--- OUTSIDE RECORDS SUMMARY | 2023-10-30 17:59 | External Medical Summary | Summary of Care ---
Author Name Unknown Organization [facility] Address [address] [facility] [place] [address] Phone [phone] Care Team Providers Care Kick Plate Installer Name Role Phone Unavailable Primary Care Provider Unavailabl e Reason for Visit * Reason Comments IV Therapy Venofer 08/18 Encounter Details Date Type Department Care Team (Latest Contact Info) Description 09/07/2023 2:00 PM EDT Hem/Onc Treatment Hematology/Oncology Treatment, [address] [address] [place], Chair [address] Hem [address] [address] Antepartum anemia complicating *; Iron deficiency anemia, unspecified iron deficiency anemia type Allergies No known active allergiesdocumented as of this encounter (statuses as of 10/18/2023) Medications Medication Sig Dispensed Refills Start Date [...] as of this encounter (statuses as of 10/18/2023) Active Problems Problem Noted Date Diagnosed Date [...] and folate levels and referral to a lace cutter. If hemoglobin levels are below 8 g/dl, we recommend Maternal Medicine ultrasound for growth every 4 weeks after 24 weeks. Consider a blood transfusion if hemoglobin levels fall below 6 g/dL. ([employer] Nurses Director Practice Bulletin Number 95, December,). Consider Venofer [...] as of this encounter (statuses as of 10/18/2023) Resolved Problems Problem Noted Date Diagnosed Date Resolved Date Abnormal glucose tolerance i n mother complicating 04/19/2023 08/31/2023 Overview: Failed early glucola. 3hr GTT ordered documented as of this encounter (statuses as of 10/18/2023) Immunizations Name Administration Dates Next Due DTP [...] money to buy more. Never true 01/20/20 Within the past 12 months, t he food you bought just didn't last and you didn't have money to get more. Never true 01/19/2023 [place] Depression Scale Answer Date Recorded [place] Depression Scale Total 9 04/03/2023 The thought [...] Sign Reading Time Taken Comments Blood Pressure 99/62 09/07/2023 2:00 PM EDT Pulse 100 09/07/2023 2:00 PM EDT Temperature 36.8 C (98.2 F) 09/07/2023 2:00 PM ED T Respiratory Rate 16 09/07/2023 2:00 PM EDT Oxygen Saturation 98% 09/07/2023 2:00 PM EDT Inhaled Oxygen Concentration - - Weight - - Height - - Body Mass Index - - documented in this encounter Nursing Notes * Justine Cool RN - 09/07/2023 3:45 PM EDT Goals: Patient will remain free from injury. Possible barriers to meeting goals: ambulating with IV pole Stability of the patient: Moderately stable - low risk of patient condition declining or worsening Summary regarding today's goals: Met: pt remained free of harm today Patient tolerated treatment well without any acute issues or problems. Patient left facility in stable condition and denied any further needs. * Justine Cool RN - 09/07/2023 2:24 PM EDT Chair 10. IV inserted. Patient here for Venofer 08/18, feeling well, no issues. Safety and Risk for Injury Patient will remain free from injury. Ensure appropriate safety devices are available. Provide and maintain safe environment. documented in this encounter Plan of Treatment Upcoming Encounters Date Type Department Care Team (Late st Contact Info) Description 10/19/2023 2:45 PM EDT Office Visit Side Piece Coverer Obstetrics Maternal Medicine, [address] [address] [facility] [address] [place] [address] 10/19/2023 2:45 PM EDT Imaging Radiology [facility] [place] [address] [place] [address] 10/24/2023 3:00 PM EDT Office Visit Gynecology/Obstetrics [facility] [address] [place] [address] Praveen Carranza MD [address] [place] [address] 10/29/2023 8:45 AM EDT Office Visit Gynecology/Obstetrics [facility] [address] [place] [place] [address] Praveen Carranza MD [address] [place] [address] 05/12/2024 10:00 AM EST Office Visit Family Practice [facility] [address] [place] [address] Malinda Owens CRNP [address] [place] [address] Health Maintenance Due Date Last Done Comments [...] mg, IV Piggyback, ONCE, 1 dose, On Sun09/07/23 at 1545, Administer over 90 Minutes Start Infusion 09/07/2023 2:12 PM EDT 300 mg 166.67 mL/hr NSS infusion 500 mL, Intravenous, at 50 mL/hr, CONTINUOUS, Starting on Sun09/07/23 at 1515, Until Sun09/07/23 at 1948 Start Infusion 09/07/2023 2:12 PM EDT 500 mL 50 mL/hr documented in this encounter
--- OUTSIDE RECORDS SUMMARY | 2023-10-30 17:59 | External Medical Summary | Summary of Care ---
Author Name Unknown Organization [facility] Address [address] [facility] [place] [address] Phone [phone] Care Team Providers Care Hydro Station Operator Name Role Phone Malinda Owens Primary Care Provider Reason for Visit * Reason Comments Return Visit Encounter Details Date Type Department Care Team (Late st Contact Info) Description 10/16/2023 3:00 PM EDT Office Visit Gynecology/Obstetric [facility] [address] [place] [address] Praveen Carranza MD [address] [place] [address] Excessive growth affecting management of , antepartum, single or unspecified fetus*; Encounter for supervision of other normal , unspecified trimester; Class 1 obesity due to excess calories without serious comorbidity with body mass index (BMI) of 33.0 to 33.9 in adult; Antepartum anemia complicating ; Diet controlled gestational diabetes mellitus (GDM) in third trimester Allergies No known active allergiesdocumented as of this encounter (statuses as of 10/16/2023) Medications Medication Sig Dispensed Refills Start Date [...] and dinner) 1 Kit 0 09/20/2023 Active [place] Mengxun [employer] In Vitro Strip (Glucose Blood)Indications:Diet controlled gestational diabetes mellitus (GDM) in third trimester Use to test blood sugars 4 times daily (fasting, 1 hour after breakfast, lunch, and dinner) 125 Strip 6 09/20/2023 Active Synqera Delica Lancets 30GIndications:Diet controlled gestational diabetes mellitus (GDM) in third trimester Use to test blood sugars 4 times daily (fasting, 1 hour after breakfast, lunch, and dinner) 200 Each 6 09/20/2023 Active documented as of this encounter (statuses as of 10/16/2023) Active Problems Problem Noted Date Diagnosed Date [...] complete. Enrolled in Current Health. Plans to sweet pickled fruit maker meter from pharmacy today. Instructions provided to [...] and class I obesity. Per review of REROLLING MACHINE OPERATOR documentation of 09/25/23, blood glucose values have [...] and folate levels and referral to a armored car messenger. If hemoglobin levels are below 8 g/dl, we recommend Maternal Medicine ultrasound for growth every 4 weeks after 24 weeks. Consider a blood transfusion if hemoglobin levels fall below 6 g/dL. ([employer] Stage Electrician Practice Bulletin Number 95, December,). Consider Venofer [...] as of this encounter (statuses as of 10/16/2023) Resolved Problems Problem Noted Date Diagnosed Date Resolved Date Abnormal glucose tolerance i n mother complicating 04/19/2023 08/31/2023 Overview: Failed early glucola. 3hr GTT ordered documented as of this encounter (statuses as of 10/16/2023) Immunizations Name Administration Dates Next Due DTP [...] money to get more. Never true 01/19/2023 [place] Depression Scale Answer Date Recorded [place] Depression Scale Total 5 09/28/2023 The thought [...] Reading Time Taken Comments Blood Pressure 100/60 10/16/2023 3:02 PM EDT Pulse - - Temperature - - Respiratory Rate - - Oxygen Saturation - - Inhaled Oxygen Concentration - - Weight 107.5 kg (237 lb) 10/16/2023 3:02 PM EDT Height 175.3 cm (5' 9") 10/16/2023 3:02 PM EDT Body Mass Index 35 10/16/2023 3:02 PM EDT documented in this encounter Progress Notes * Praveen Carranza MD - 10/16/2023 3:15 PM EDT Pt doing well No comapaints GDMA1 on diet Last EFW 85% Tamara for MFM appt this Sunday * Eli Calles LPN - 10/16/2023 3:02 PM EDT [id number] documented in this encounter Plan of Treatment Upcoming Encounters Date Type Department Care Team (Late st Contact Info) Description 10/19/2023 2:45 PM EDT Office Visit Roustabout Supervisor Obstetrics Maternal Medicine, [place] [address] [place] [address] Cam Sim [address] [place] [address] 10/19/2023 2:45 PM EDT Imaging Radiology [facility], [place] [address] [place] [address] 10/24/2023 3:00 PM EDT Office Visit Gynecology/Obstetrics [facility] [address] [place] [address] Praveen Carranza MD [address] [place] [address] 10/29/2023 8:45 AM EDT Office Visit Gynecology/Obstetrics [facility] [address] [place] [address] Praveen Carranza MD [address] [place] [address] 05/12/2024 10:00 AM EST Office Visit Family Practice [facility] [address] [place] [address] Malinda Owens CRNP [address] [place] [address] Health Maintenance Due Date Last Done Comments [...] as of this encounter Visit Diagnoses Diagnosis Excessive growth affecting management of , antepartum, single or unspecified fetus- Primary Encounter for supervision of other normal , unspecified trimester Class 1 obesity due to excess calories without serious comorbidity with body mass index (BMI) of 33.0 to 33.9 in adult Antepartum anemia complicating Anemia, antepartum Diet controlled gestational diabetes mellitus (GDM) in third trimester documented in this encounter Care Teams Hydro Station Operator Relationship Specialty Start Date End Date Malinda Owens CRNP [address] [place] [address] PCP - General Nurse Practitioner 09/20/23 documented as of this encounter
--- OUTSIDE RECORDS SUMMARY | 2023-10-30 17:59 | External Medical Summary | Summary of Care ---
Author Name Unknown Organization [facility] Address [address] [place] [place] [facility] [place] [address] Phone [phone] Care Team Providers Care Production Shift Supervisor Name Role Phone Malinda Owens Primary Care Provider Reason for Visit * Reason Onset Date Comments Forms Request 10/09/2023 Encounter Details Date Type Department Care Team (Late st Contact Info) Description 10/09/2023 Telephone Gynecology/Obstetrics [facility] [address] [place] [address] Indira Cleveland CRNP [address] [place] [address] Forms Request Allergies No known active allergiesdocumented as of this encounter (statuses as of 10/11/2023) Medications Medication Sig Dispensed Refills Start Date End Date Status 19 29-1 MG Oral Tablet Chewable Take by mouth. 0 Active Vitamin B-12 1000 MCG Oral Tablet (Cyanocobalamin)Indica tions:Antepartum anemia complicating Take 1 Tablet by mouth in the morning. 30 Tablet 5 08/14/2023 Active YR FreeToHarir Verio Flex System w/Device KitIndications:Diet controlled gestational diabetes mellitus (GDM) in third trimester Use to test blood sugars 4 times daily (fasting, 1 hour after breakfast, lunch, and dinner) 1 Kit 0 09/20/2023 Active YR FreeTouch Verio In Vitro Strip (Glucose Blood)Indications:Diet controlled [...] complete. Enrolled in Current Health. Plans to field support representative meter from pharmacy today. Instructions provided to report blood sugars each week for MFM review 09/25/23: RPM reviewed; Stable; continue diet controlled 10/03/23: RPM reviewed; Stable 10/09/23: RPM reviewed; Stable overall; continue diet controlled Last Assessment & Plan: She presents for an assessment of growth and anatomy secondary to GDMA1, previously noted LGA, and class I obesity. Per review of BLACKSMITH APPRENTICE documentation of 09/25/23, blood glucose values have [...] and folate levels and referral to a delivery department supervisor. If hemoglobin levels are below 8 g/dl, we recommend Maternal Medicine ultrasound for growth every 4 weeks after 24 weeks. Consider a blood transfusion if hemoglobin levels fall below 6 g/dL. ([employer] and Senior Licensing Manager Practice Bulletin Number 95, December,). Consider Venofer [...] money to get more. Never true 01/19/2023 [place] Depression Scale Answer Date Recorded [place] Depression Scale Total 5 09/28/2023 The thought [...] 10/16/2023 3:00 PM EDT Office Visit Gynecology/Obstetrics [facility] [address] [place] [address] Praveen Carranza MD [address] [place] [address] 10/19/2023 2:45 PM EDT Office Visit Manager Talent Obstetrics Maternal Medicine, [place] [address] [place] [address] Cam Sim, [address] [place] [address] 10/19/2023 2:45 PM EDT Imaging Radiology [facility] [address] [place] [address] 10/24/2023 3:00 PM EDT Office Visit Gynecology/Obstetrics [facility] [address] [place] [address] Praveen Carranza MD [address] [place] [address] 10/29/2023 8:45 AM EDT Office Visit Gynecology/Obstetrics [facility] [address] [place] [address] Praveen Carranza MD [address] [place] [address] 05/12/2024 10:00 AM EST Office Visit Family Practice [facility] [address] [place] [address] Malinda Owens CRNP [address] [place] [address] Health Maintenance Due Date Last Done Comments [...] filedocumented as of this encounter Care Teams Production Shift Supervisor Relationship Specialty Start Date End Date Malinda Owens CRNP [address] [place] [address] PCP - General Nurse Practitioner 09/20/23 documented as of this encounter
--- OUTSIDE RECORDS SUMMARY | 2023-10-30 17:59 | External Medical Summary | Summary of Care ---
Author Name Unknown Organization [facility] Address [address] [place] [address] Phone [phone] Care Team Providers Care Tablet Technician Name Role Phone Malinda Owens Primary Care Provider [phone] Reason for Visit * Reason Onset Date Comments Medication Refill 10/14/2023 Encounter Details Date Type Department Care Team (Late st Contact Info) Description 10/14/2023 Refill Gynecology/Obstetrics [facility] [address] [place] [address] Indira [place] CRNP [address] [place] [address] Antepartum anemia complicating ; Diet controlled gestational diabetes mellitus (GDM) in third trimester Allergies No known active allergiesdocumented as of this encounter (statuses as of 10/15/2023) Medications Medication Sig Dispensed Refills Start Date [...] and dinner) 1 Kit 0 09/20/2023 Active OneTouch Verio In Vitro Strip (Glucose Blood)Indications:Diet controlled [...] as of this encounter (statuses as of 10/15/2023) Active Problems Problem Noted Date Diagnosed Date [...] complete. Enrolled in Current Health. Plans to seed cone picker meter from pharmacy today. Instructions provided to report blood sugars each week for MFM review 09/25/23: RPM reviewed; Stable; continue diet controlled 10/03/23: RPM reviewed; Stable 10/09/23: RPM reviewed; Stable overall; continue diet controlled Last Assessment & Plan: She presents for an assessment of growth and anatomy secondary to GDMA1, previously noted LGA, and class I obesity. Per review of WOVEN BLIND LOOM TENDER documentation of 09/25/23, blood glucose values have [...] and folate levels and referral to a workers compensation consultant. If hemoglobin levels are below 8 g/dl, we recommend Maternal Medicine ultrasound for growth every 4 weeks after 24 weeks. Consider a blood transfusion if hemoglobin levels fall below 6 g/dL. ([employer] Fur Polisher Practice Bulletin Number 95, December,). Consider Venofer [...] as of this encounter (statuses as of 10/15/2023) Resolved Problems Problem Noted Date Diagnosed Date Resolved Date Abnormal glucose tolerance i n mother complicating 04/19/2023 08/31/2023 Overview: Failed early glucola. 3hr GTT ordered documented as of this encounter (statuses as of 10/15/2023) Immunizations Name Administration Dates Next Due DTP [...] money to get more. Never true 01/19/2023 Gill Depression Scale Answer Date Recorded Gill Depression Scale Total 5 09/28/2023 The thought [...] encounter Miscellaneous Notes * Telephone Encounter - Lolis Vasquez LPN - 10/15/2023 11:25 AM EDTRefused Prescriptions: Disp Refills Vitamin B-12 1000 MCG Oral Tablet (Cyanoco*30 Tab*5 Sig: Take 1Tablet by mouth in the morning.Refused By: LOLIS VASQUEZ LReason for Refusal: Not indicated OneTouch Verio In Vitro Strip (Glucose Blo*125 St*6 Sig: Use to test blood sugars 4 times daily (fasting, 1 hour after breakfast, lunch, and dinner)Refused By: LOLIS VASQUEZ LReason for Refusal: Not indicated * Telephone Encounter - Lolis Vasquez LPN - 10/15/2023 11:24 AM EDTPending Prescriptions: Disp Refills Vitamin B-12 1000 MCG Oral Tablet (Cyanoco*30 Tab*5 Sig: Take 1 Tablet by mouth in the morning. OneTouch Verio In Vitro Strip (Glucose Blo*125 St*6 Sig: Use to test blood sugars 4 times daily (fasting, 1 hour after breakfast, lunch, and dinner) documented in this encounter Plan of Treatment Upcoming Encounters Date Type Department Care Team (Late st Contact Info) Description 10/16/2023 3:00 PM EDT Office Visit Gynecology/Obstetrics [address] [place] [address] Praveen Carranza MD [address] [place] [address] 10/19/2023 2:45 PM EDT Office Visit Musical Instrument Maker Obstetrics Maternal Medicine, [place] [address] [place] [address] Cam Sim DO [address] [place] [address] 10/19/2023 2:45 PM EDT Imaging [facility]iology [facility] [place] [address] [place] [address] 10/24/2023 3:00 PM EDT Office Visit Gynecology/Obstetrics [facility] [address] [place] [address] Praveen Carranza MD [address] [place] [address] 10/29/2023 8:45 AM EDT Office Visit Gynecology/Obstetrics [facility] [address] [place] [address] Praveen Carranza MD [address] [place] [address] 05/12/2024 10:00 AM EST Office Visit Family Practice [facility] [address] [place] [address] Malinda Owens CRNP [address] [place] [address] Health Maintenance Due Date Last Done Comments Depression Screening 2006 GARDASIL-HPV IMMUNIZATION SERIES (3 - 3-dose series) 02/05/2013 11/13/2012, 03/21/2012 COVID-19 Vaccine (2022-24 season) 2023 Pap Smear 01/29/2026 01/29/2023, 11/17, [...] encounter Visit Diagnoses Diagnosis Antepartum anemia complicating Anemia, antepartum Diet controlled gestational diabetes mellitus (GDM) in third trimester documented in this encounter Care Teams Tablet Technician Relationship Specialty Start Date End Date Malinda Owens CRNP [address] [place] [address] PCP - General Nurse Practitioner 09/20/23 documented as of this encounter
--- OUTSIDE RECORDS SUMMARY | 2023-10-30 18:00 | External Medical Summary ---
Author Name Unknown Address Unknown Organization K01:[facility] - [address] [facility] [address] Laboratory Report Ordering Provider Test Date Status KELSI LR 10/09/2023 14:40:51 Final Observation Date Value Abnormality Reference (Units ) Status Streptococcus agalactiae DNA [Presence] in Specimen by MOR with probe detection 10/09/2023 14:40:51 Negative Negative Final No Group B Streptococcus det ected by culture-enhanced PCR (amplified probe).
The collection of vaginal/rectal swab specimen combinations (FDA approved specimen type) is optimal for the detection of Group B Streptococcus. Single source collection (vaginal only or rectal only) or alternate specimen sources may lead to false negative results. Performing Location [facility] - [address] [address]
--- OUTSIDE RECORDS SUMMARY | 2023-10-30 18:00 | External Medical Summary | Summary of Care ---
Author Name Unknown Organization [facility] Address [address] [facility] [address] Phone [phone] Care Team Providers Care Melter Supervisor Open Hearth Furnace Name Role Phone Malinda Owens Primary Care Provider [phone] Reason for Visit * Reason Onset Date Comments Forms Request 10/09/2023 Encounter Details Date Type Department Care Team (Late st Contact Info) Description 10/09/2023 Telephone Gynecology/Obstetrics [facility] [address] [place] [address] Indira [place] CRNP [address] [place] [address] Forms Request Allergies No known active allergiesdocumented as of this encounter (statuses as of 10/09/2023) Medications Medication Sig Dispensed Refills Start Date End Date Status 19 29-1 MG Oral Tablet Chewable Take by mouth. 0 Active Vitamin B-12 1000 MCG Oral Tablet (Cyanocobalamin)Indica tions:Antepartum anemia complicating Take 1 Tablet by mouth in the morning. 30 Tablet 5 08/14/2023 Active [employer] Verio Flex System w/Device KitIndications:Diet controlled gestational diabetes mellitus (GDM) in third trimester Use to test blood sugars 4 times daily (fasting, 1 hour after breakfast, lunch, and dinner) 1 Kit 0 09/20/2023 Active OpenEdTouch Verio In Vitro Strip (Glucose Blood)Indications:Diet controlled [...] as of this encounter (statuses as of 10/09/2023) Active Problems Problem Noted Date Diagnosed Date [...] complete. Enrolled in Current Health. Plans to brick picker meter from pharmacy today. Instructions provided to report blood sugars each week for MFM review 09/25/23: RPM reviewed; Stable; continue diet controlled 10/03/23: RPM reviewed; Stable 10/09/23: RPM reviewed; Stable overall; continue diet controlled Last Assessment & Plan: She presents for an assessment of growth and anatomy secondary to GDMA1, previously noted LGA, and class I obesity. Per review of SUPPLY CHAIN PLANNER documentation of 09/25/23, blood glucose values have [...] and folate levels and referral to a inclusion special education teacher. If hemoglobin levels are below 8 g/dl, we recommend Maternal Medicine ultrasound for growth every 4 weeks after 24 weeks. Consider a blood transfusion if hemoglobin levels fall below 6 g/dL. ([employer] and Nozzle Worker Practice Bulletin Number 95, December,). Consider Venofer [...] as of this encounter (statuses as of 10/09/2023) Resolved Problems Problem Noted Date Diagnosed Date Resolved Date Abnormal glucose tolerance i n mother complicating 04/19/2023 08/31/2023 Overview: Failed early glucola. 3hr GTT ordered documented as of this encounter (statuses as of 10/09/2023) Immunizations Name Administration Dates Next Due DTP [...] money to get more. Never true 01/19/2023 [place] Depression Scale Answer Date Recorded [place] Depression Scale Total 5 09/28/2023 The thought [...] Care Team (Late st Contact Info) Description 10/10/2023 9:30 AM EDT Pharmacy Pharmacy, House [address] [place] [address] Clinic, [place] [address] [place] [address] 10/16/2023 3:00 PM EDT Office Visit Gynecology/Obstetrics [facility] [address] [facility] [place] [address] Praveen Carranza MD [address] [place] [address] 10/19/2023 2:45 PM EDT Office Visit Shirt Cleaner Obstetrics Maternal Medicine, [address] [place] [address] [facility] [address] [place] [address] 10/19/2023 2:45 PM EDT [facility] [address] [place] [address] 10/24/2023 3:00 PM EDT Office Visit Gynecology/Obstetrics [facility] [address] [place] [address] Praveen Carranza MD [address] [place] [address] 10/29/2023 8:45 AM EDT Office Visit Gynecology/Obstetrics [facility] [address] [place] [address] Praveen Carranza MD [address] [place] [address] 05/12/2024 10:00 AM EST Office Visit Family [facility] [address] [place] [address] Malinda Owens CRNP [address] [place] [address] Health Maintenance Due Date Last Done Comments [...] filedocumented as of this encounter Care Teams Melter Supervisor Open Hearth Furnace Relationship Specialty Start Date End Date Malinda Owens CRNP [address] [place] [address] PCP - General Nurse Practitioner 09/20/23 documented as of this encounter
--- OUTSIDE RECORDS SUMMARY | 2023-10-30 18:00 | External Medical Summary | Summary of Care ---
Author Name Unknown Organization [facility] Address [address] [place] [address] Phone [phone] Care Team Providers Care Equipment Operator Intermodal Yard Name Role Phone Malinda Owens Primary Care Provider [phone] Reason for Visit * Reason Comments Outpatient Testing Encounter Details Date Type Department Care Team (Late st Contact Info) Description 10/09/2023 1:30 PM EDT Laboratory Laboratory, [facility] [address] [facility] [place] [address] [facility] [address] [place] [address] Iron deficiency anemia, unspecified iron deficiency anemia [...] the morning. 30 Tablet 5 08/14/2023 Active Inviragenio Flex System w/Device KitIndications:Diet controlled gestational diabetes mellitus (GDM) in third trimester Use to test blood sugars 4 times daily (fasting, 1 hour after breakfast, lunch, and dinner) 1 Kit 0 09/20/2023 Active [employer] Verio In Vitro Strip (Glucose Blood)Indications:Diet controlled gestational diabetes mellitus (GDM) in third trimester Use to test blood sugars 4 times daily (fasting, 1 hour after breakfast, lunch, and dinner) 125 Strip 6 09/20/2023 Active Luisa Talley Lancets 30GIndications:Diet controlled gestational diabetes mellitus (GDM) [...] complete. Enrolled in Current Health. Plans to fiber picker meter from pharmacy today. Instructions provided to report blood sugars each week for MFM review 09/25/23: RPM reviewed; Stable; continue diet controlled 10/03/23: RPM reviewed; Stable 10/09/23: RPM reviewed; Stable overall; continue diet controlled Last Assessment & Plan: She presents for an assessment of growth and anatomy secondary to GDMA1, previously noted LGA, and class I obesity. Per review of TEST DESK OPERATOR documentation of 09/25/23, blood glucose values [...] and folate levels and referral to a decorating consultant. If hemoglobin levels are below 8 g/dl, we recommend Maternal Medicine ultrasound for growth every 4 weeks after 24 weeks. Consider a blood transfusion if hemoglobin levels fall below 6 g/dL. ([employer]st[employer]ians and Gage Maker Practice Bulletin Number 95, December,). Consider Venofer [...] money to get more. Never true 01/19/2023 [place] Depression Scale Answer Date Recorded [place] Depression Scale Total 5 09/28/2023 The thought [...] on file documented as of this encounter Plan of Treatment Upcoming Encounters Date Type Department Care Team (Late st Contact Info) Description 10/09/2023 2:15 PM EDT Office Visit Gynecology/Obstetrics Shanna Topete [address] [place] [address] Indira [place] CRNP [address] [place] [address] Arrived 10/10/2023 9:30 AM EDT Pharmacy Pharmacy, [place] [address] [place] [address] [facility] [address] [place] [address] 10/16/2023 3:00 PM EDT Office Visit Gynecology/Obstetrics Shanna Romeros [address] [place] [address] Praveen Carranza MD [address] [place] [address] 10/19/2023 2:45 PM EDT Office Visit Good Humor Vendor Obstetrics Maternal Medicine, [place] [address] [place] [address] Cam Sim, [address] [place] [address] 10/19/2023 2:45 PM EDT [facility] [place] [address] [place] [address] 10/24/2023 3:00 PM EDT Office Visit Gynecology/Obstetrics Shanna Romeros [address] [place] [address] Praveen Carranza MD [address] [place] [address] 10/29/2023 8:45 AM EDT Office Visit Gynecology/Obstetrics Shanna Topete [address] [place] [address] Praveen Carranza MD [address] [place] [address] 05/12/2024 10:00 AM EST Office Visit Family [facility] [address] [place] [address] Malinda Owens CRNP [address] [place] [address] Pending Results Name Type Priority Associated Diagnoses Date /Time CBC WITH WBC DIFFERENTIAL Lab Routine Iron deficiency anemia, unspecified iron deficiency anemia type 10/09/2023 1:33 PM EDT IRON SCREEN, INCLUDING TIBC Lab Routine Iron deficiency anemia, unspecified iron deficiency anemia type 10/09/2023 1:33 PM EDT FERRITIN Lab Routine Iron deficiency anemia, unspecified iron deficiency anemia type 10/09/2023 1:33 PM EDT RETICULOCYTE PANEL Lab Routine Iron deficiency anemia, unspecified iron deficiency anemia type 10/09/2023 1:33 PM EDT FOLIC ACID Lab Routine Iron deficiency anemia, unspecified iron deficiency anemia type 10/09/2023 1:33 PM EDT VITAMIN B12 Lab Routine Iron deficiency anemia, unspecified iron deficiency anemia type 10/09/2023 1:33 PM EDT CBC Lab Routine Iron deficiency anemia, unspecified iron deficiency anemia type 10/09/2023 1:33 PM EDT DIFFERENTIAL, AUTOMATED Lab Routine Iron deficiency anemia, unspecified iron deficiency anemia type 10/09/2023 1:33 PM EDT Health Maintenance Due Date Last Done Comments [...] as of this encounter Visit Diagnoses Diagnosis Iron deficiency anemia, unspecified iron deficiency anemia type documented in this encounter Care Teams Equipment Operator Intermodal Yard Relationship Specialty Start Date End Date Malinda Ownes CRNP [address] [place] [address] PCP - General Nurse Practitioner 09/20/23 documented as of this encounter
--- OUTSIDE RECORDS SUMMARY | 2023-10-30 18:00 | External Medical Summary | Summary of Care ---
Author Name Unknown Organization [facility] Address [address] [place] [address] Phone [phone] Care Team Providers Care Online Tutor Name Role Phone Malinda Owens Primary Care Provider [phone] Reason for Visit * Reason Comments Return Visit Encounter Details Date Type Department Care Team (Late st Contact Info) Description 10/09/2023 2:15 PM EDT Office Visit Gynecology/Obstetric s Shanna Topete [address] [place] [address] Indira [place] CRNP [address] [place] [address] Encounter for supervision of other normal , [...] and dinner) 1 Kit 0 09/20/2023 Active [facility] [employer] (H[facility]) Verio In Vitro Strip (Glucose Blood)Indications:Diet controlled gestational diabetes mellitus (GDM) in third trimester Use to test blood sugars 4 times daily (fasting, 1 hour after breakfast, lunch, and dinner) 125 Strip 6 09/20/2023 Active SDL Enterprise TechnologiesTouch Delica Lancets 30GIndications:Diet controlled gestational diabetes mellitus [...] complete. Enrolled in Current Health. Plans to cherry picker operator meter from pharmacy today. Instructions provided to report blood sugars each week for MFM review 09/25/23: RPM reviewed; Stable; continue diet controlled 10/03/23: RPM reviewed; Stable 10/09/23: RPM reviewed; Stable overall; continue diet controlled Last Assessment & Plan: She presents for an assessment of growth and anatomy secondary to GDMA1, previously noted LGA, and class I obesity. Per review of REFRACTORY FURNACE DESIGNER documentation of 09/25/23, blood glucose values have [...] and folate levels and referral to a inspector advanced composite. If hemoglobin levels are below 8 g/dl, we recommend Maternal Medicine ultrasound for growth every 4 weeks after 24 weeks. Consider a blood transfusion if hemoglobin levels fall below 6 g/dL. ([employer] Obstetricians and Cloth Weigher Practice Bulletin Number 95, December,). Consider Venofer [...] money to get more. Never true 01/19/2023 Premium Depression Scale Answer Date Recorded [place] Depression Scale Total 5 09/28/2023 The thought [...] Sign Reading Time Taken Comments Blood Pressure 104/62 10/09/2023 1:53 PM EDT Pulse - - Temperature - - Respiratory Rate - - Oxygen Saturation - - Inhaled Oxygen Concentration - - Weight 107.5 kg (237 lb) 10/09/2023 1:53 PM EDT Height 175.3 cm (5' 9") 10/09/2023 1:53 PM EDT Body Mass Index 35 10/09/2023 1:53 PM EDT documented in this encounter Progress Notes * Indira [place] CRNP - 10/09/2023 2:13 PM EDT 36w4d Complaints: had pretty bad pelvic pain last week but helps to sit on ball. Blood sugars are overall good. Has elevated reading occasionally, usually not higher than 150. Good FM. No contractions, bleeding, or LOF. Following with MFM, LGA fetus. Sending blood sugars to [facility] GBS today. Circular Clerk Documentation Provider requested development coach. Name of development coach: AD Schmidt documented in this encounter Nursing Notes * Ronda Turner LPN - 10/09/2023 1:59 PM EDT 36w4d Denies concerns GBS today documented in this encounter Plan of Treatment Upcoming Encounters Date Type Department Care Team (Late st Contact Info) Description 10/10/2023 9:30 AM EDT Pharmacy Pharmacy, [place] [address] [place] [address] Clinic, [facility] [address] [place] [address] 10/16/2023 3:00 PM EDT Office Visit Gynecology/Obstetrics [facility] [address] [place] [address] Praveen Carranza MD [address] [place] [address] 10/19/2023 2:45 PM EDT Office Visit Refractory Furnace Designer Obstetrics Maternal Medicine, [address] [address] [facility] [address] [place] [address] 10/19/2023 2:45 PM EDT Imaging Radiology [facility], [place] [address] [place] [address] 10/24/2023 3:00 PM EDT Office Visit Gynecology/Obstetrics [facility] [address] [place] [address] Praveen Carranza MD [address] [place] [address] 10/29/2023 8:45 AM EDT Office Visit Gynecology/Obstetrics [facility] [address] [place] [address] Praveen Carranza MD [address] [place] [address] 05/12/2024 10:00 AM EST Office Visit Family Practice [facility] [address] [place] [address] Malinda Owens CRNP [address] [place] [address] Pending Results Name Type Priority Associated Diagnoses Date /Time GROUP B STREP CULTURE/PCR Lab Routine Encounter for supervision of other normal , unspecified trimester 10/09/2023 2:40 PM EDT Health Maintenance Due Date Last [...] trimester documented in this encounter Care Teams Online Tutor Relationship Specialty Start Date End Date Malinda Owens CRNP [address] [place] [address] PCP - General Nurse Practitioner 09/20/23 documented as of this encounter
--- OUTSIDE RECORDS SUMMARY | 2023-10-30 18:00 | External Medical Summary | Summary of Care ---
Author Name Unknown Organization [facility] Address [address] [place] [address] Phone [phone] Care Team Providers Care Branch Employment Coordinator Name Role Phone Malinda Owens Primary Care Provider [phone] Reason for Visit * Reason Onset Date Comments Forms Request 10/09/2023 Encounter Details Date Type Department Care Team (Late st Contact Info) Description 10/09/2023 Telephone Gynecology/Obstetrics [facility] [address] [place] [address] Indira Cleveland CRNP [address] [place] [address] Forms Request Allergies No known active allergiesdocumented as of this encounter (statuses as of 10/09/2023) Medications Medication Sig Dispensed Refills Start Date End Date Status 19 29-1 MG Oral Tablet Chewable Take by mouth. 0 Active Vitamin B-12 1000 MCG Oral Tablet (Cyanocobalamin)Indica tions:Antepartum anemia complicating Take 1 Tablet by mouth in the morning. 30 Tablet 5 08/14/2023 Active Agworld Pty LtdTo[employer]Quest Verio Flex System w/Device KitIndications:Diet controlled gestational diabetes mellitus (GDM) in third trimester Use to test blood sugars 4 times daily (fasting, 1 hour after breakfast, lunch, and dinner) 1 Kit 0 09/20/2023 Active Agworld Pty LtdTouch Verio In Vitro Strip (Glucose Blood)Indications:Diet controlled [...] Enrolled in Current Health. Plans to picker tender helper meter from pharmacy today. Instructions provided to report blood sugars each week for MFM review 09/25/23: RPM reviewed; Stable; continue diet controlled 10/03/23: RPM reviewed; Stable 10/09/23: RPM reviewed; Stable overall; continue diet controlled Last Assessment & Plan: She presents for an assessment of growth and anatomy secondary to GDMA1, previously noted LGA, and class I obesity. Per review of COLD MILL SUPERVISOR documentation of 09/25/23, blood glucose values have [...] and folate levels and referral to a immigration manager. If hemoglobin levels are below 8 g/dl, we recommend Maternal Medicine ultrasound for growth every 4 weeks after 24 weeks. Consider a blood transfusion if hemoglobin levels fall below 6 g/dL. ([employer] and Pipe Machine Operator Practice Bulletin Number 95, December,). Consider Venofer [...] money to get more. Never true 01/19/2023 [place] Depression Scale Answer Date Recorded [place] Depression Scale Total 5 09/28/2023 The thought [...] Description 10/10/2023 9:30 AM EDT Pharmacy Pharmacy, [place] [address] [place] [address] Clinic, [place] [address] [place] [address] 10/16/2023 3:00 PM EDT Office Visit Gynecology/Obstetrics [facility] [address] [facility] [place] [address] Praveen Carranza MD [address] [place] [address] 10/19/2023 2:45 PM EDT Office Visit Superintendent Greens Obstetrics Maternal Medicine, [place] [address] [place] [address] [facility] [address] [place] [address] 10/19/2023 2:45 PM EDT [facility] [place] [address] [place] [address] 10/24/2023 3:00 PM EDT Office Visit Gynecology/Obstetrics [facility] [address] [place] [address] Praveen Carranza MD [address] [place] [address] 10/29/2023 8:45 AM EDT Office Visit Gynecology/Obstetrics [facility] [address] [place] [address] Praveen Carranza MD [address] [place] [address] 05/12/2024 10:00 AM EST Office Visit Family [facility] [address] [place] [address] Malinda Owens CRNP [address] [place] [address] Health Maintenance Due Date Last Done Comments [...] filedocumented as of this encounter Care Teams Branch Employment Coordinator Relationship Specialty Start Date End Date Malinda Owens CRNP [address] [place] [address] PCP - General Nurse Practitioner 09/20/23 documented as of this encounter
--- OUTSIDE RECORDS SUMMARY | 2023-10-30 18:00 | External Medical Summary | Summary of Care ---
Author Name Unknown Organization [facility] Address [address] [place] [facility] [place] [place] [address] Phone [phone] Care Team Providers Care Dog Show Judge Name Role Phone Malinda Owens Primary Care Provider [phone] Reason for Visit * Reason Comments Return Visit Encounter Details Date Type Department Care Team (Late st Contact Info) Description 10/09/2023 2:15 PM EDT Office Visit Gynecology/Obstetric s [facility] [address] [place] [address] Indira Cleveland CRNP [address] [place] [address] Encounter for supervision of other normal , [...] and dinner) 1 Kit 0 09/20/2023 Active [employer] Verio In Vitro Strip (Glucose Blood)Indications:Diet controlled gestational diabetes mellitus (GDM) in third trimester Use to test blood sugars 4 times daily (fasting, 1 hour after breakfast, lunch, and dinner) 125 Strip 6 09/20/2023 Active MyDocTimeTouch Delica Lancets 30GIndications:Diet controlled gestational diabetes mellitus [...] complete. Enrolled in Current Health. Plans to belt picker meter from pharmacy today. Instructions provided to report blood sugars each week for MFM review 09/25/23: RPM reviewed; Stable; continue diet controlled 10/03/23: RPM reviewed; Stable 10/09/23: RPM reviewed; Stable overall; continue diet controlled Last Assessment & Plan: She presents for an assessment of growth and anatomy secondary to GDMA1, previously noted LGA, and class I obesity. Per review of GLOBAL PROJECT MANAGER documentation of 09/25/23, blood glucose values have [...] and folate levels and referral to a golf course ranger. If hemoglobin levels are below 8 g/dl, we recommend Maternal Medicine ultrasound for growth every 4 weeks after 24 weeks. Consider a blood transfusion if hemoglobin levels fall below 6 g/dL. ([employer] Obst[employer]ians and Drawer In Dobby Loom Practice Bulletin Number 95, December,). Consider Venofer [...] money to get more. Never true 01/19/2023 [place] Depression Scale Answer Date Recorded [place] Depression Scale Total 5 09/28/2023 The thought [...] Sending blood sugars to [facility]. GBS today. Hose Stripper Documentation Provider requested financial aid counselor. Name of financial aid counselor: AD Schmidt documented in this encounter Nursing Notes * Ronda Turner LPN - 10/09/2023 1:59 PM EDT 36w4d Denies concerns GBS today documented in this encounter Plan of Treatment Upcoming Encounters Date Type Department Care Team (Late st Contact Info) Description 10/10/2023 9:30 AM EDT Pharmacy Pharmacy, [place] [address] [place] [address] Clinic, [facility] [address] [place] [address] 10/16/2023 3:00 PM EDT Office Visit Gynecology/Obstetrics [facility] [address] [place] [address] Praveen Carranza MD [address] [place] [address] 10/19/2023 2:45 PM EDT Office Visit Recreation Center Director Obstetrics Maternal Medicine, [address] [address] [facility] [address] [place] [address] 10/19/2023 2:45 PM EDT Imaging Radiology [facility], [place] [address] [place] [address] 10/24/2023 3:00 PM EDT Office Visit Gynecology/Obstetrics [facility] [address] [place] [address] Praveen Carranza MD [address] [place] [address] 10/29/2023 8:45 AM EDT Office Visit Gynecology/Obstetrics [facility] [address] [place] [address] Praveen Carranza MD [address] [place] [address] 05/12/2024 10:00 AM EST Office Visit Family Practice [facility] [address] [place] [address] Malinda Owens CRNP [address] [place] [address] Scheduled Orders Name Type Priority Associated Diagnoses Orde r Schedule GROUP B STREP CULTURE/PCR Lab Routine Encounter for supervision of other normal , unspecified trimester Ordered: 10/09/2023 Health Maintenance Due Date Last Done Comments [...] trimester documented in this encounter Care Teams Dog Show Judge Relationship Specialty Start Date End Date Malinda Owens CRNP [address] [place] [address] PCP - General Nurse Practitioner 09/20/23 documented as of this encounter
--- OUTSIDE RECORDS SUMMARY | 2023-10-30 18:01 | External Medical Summary | Summary of Care ---
Author Name Unknown Organization [facility] Address [address] [facility] [place] [address] Phone [phone] Care Team Providers Care Music Rehabilitation Therapist Name Role Phone Malinda Owens Primary Care Provider [phone] Reason for Visit * Reason Comments Return Visit Encounter Details Date Type Department Care Team (Late st Contact Info) Description 09/28/2023 2:30 PM EDT Office Visit Gynecology/Obstetric [facility] [address] [facility] [place] [address] Claire Caballero PA-C [address] [facility] [place] [address] Encounter for supervision of other normal , third trimester*; Class 1 obesity due to excess calories without serious comorbidity with body mass index (BMI) of 33.0 to 33.9 in adult; Diet controlled gestational diabetes mellitus (GDM) in third trimester; Antepartum anemia complicating ; Excessive growth affecting management of , antepartum, single or unspecified fetus Allergies No known active allergiesdocumented as of this encounter (statuses as of 09/28/2023) Medications Medication Sig Dispensed Refills Start Date End Date Status 19 29-1 MG Oral Tablet Chewable Take by mouth. 0 Active Doxylamine Succinate (Sleep) 25 MG Oral Tablet (Unisom SleepTabs) Take 1 Tablet by mouth at bedtime as needed. 0 Active Vitamin B-12 1000 MCG Oral Tablet (Cyanocobalamin)Indica tions:Antepartum anemia complicating Take 1 Tablet by mouth in the morning. 30 Tablet 5 08/14/2023 Active [employer] Flex System w/Device KitIndications:Diet controlled gestational diabetes mellitus (GDM) in third trimester Use to test blood sugars 4 times daily (fasting, 1 hour after breakfast, lunch, and dinner) 1 Kit 0 09/20/2023 Active [employer] In Vitro Strip (Glucose Blood)Indications:Diet controlled gestational diabetes mellitus (GDM) in third trimester Use to test blood sugars 4 times daily (fasting, 1 hour after breakfast, lunch, and dinner) 125 Strip 6 09/20/2023 Active Karmarama DelConnexient Lancets 30GIndications:Diet controlled gestational diabetes mellitus (GDM) in third trimester Use to test blood sugars 4 times daily (fasting, 1 hour after breakfast, lunch, and dinner) 200 Each 6 09/20/2023 Active documented as of this encounter (statuses as of 09/28/2023) Active Problems Problem Noted Date Diagnosed Date [...] complete. Enrolled in Current Health. Plans to orange picker meter from pharmacy today. Instructions provided to report blood sugars each week for MFM review 09/25/23: RPM reviewed; Stable; continue diet controlled Last Assessment & Plan: She presents for an assessment of growth and anatomy secondary to GDMA1, previously noted LGA, and class I obesity. Per review of QUIRK SANDER documentation of 09/25/23, blood glucose values have [...] and folate levels and referral to a unit operator. If hemoglobin levels are below 8 g/dl, we recommend Maternal Medicine ultrasound for growth every 4 weeks after 24 weeks. Consider a blood transfusion if hemoglobin levels fall below 6 g/dL. ([employer]st[employer]ians and Rf Test Engineer Practice Bulletin Number 95, December,). Consider Venofer [...] as of this encounter (statuses as of 09/28/2023) Resolved Problems Problem Noted Date Diagnosed Date Resolved Date Abnormal glucose tolerance i n mother complicating 04/19/2023 08/31/2023 Overview: Failed early glucola. 3hr GTT ordered documented as of this encounter (statuses as of 09/28/2023) Immunizations Name Administration Dates Next Due DTP [...] money to get more. Never true 01/19/2023 [place] Depression Scale Answer Date Recorded [place] Depression Scale Total 5 09/28/2023 The thought [...] Reading Time Taken Comments Blood Pressure 100/60 09/28/2023 2:25 PM EDT Pulse - - Temperature - - Respiratory Rate - - Oxygen Saturation - - Inhaled Oxygen Concentration - - Weight 108.4 kg (239 lb) 09/28/2023 2:25 PM EDT Height - - Body Mass Index 35.29 08/13/2023 8:08 AM EST documented in this encounter Progress Notes * Claire Caballero PA-C - 09/28/2023 2:40 PM EDT Yuli Gutierrez is a 28 year old female here for her routine OB appointment at 35w0d Her Estimated Date of Delivery: 11/02/23 She is inquiring about what things to take with her to L&D. She also is starting to think abouther plan, and is curious if she is able to take birthing classes. She attended BF classes jamal L&D tour of [facility] already. She also is asking if her follow-up scan with M is necessary. She expresses no further concerns. REVIEW OF SYSTEMS She affirms movement. Denies vaginal bleeding, LOF, contractions, N/V, headaches, vision changes, chest pain, deep calf pain/swelling, RUQ pain. [place] Depression Scale [place] Depression Scale Total: 5 [place] suicide question and score: Score of 3 = Yes, quite often. Score of 2 = Sometimes. Score of 1 = Hardly ever The thought of harming myself has occurred to me.: 0 PHYSICAL EXAM: BP 100/60 | Wt 108.4 kg (239 lb) | BMI 35.29 kg/m | BSA 2.3 m +FHT 130s Fundal height 36 cm ASSESSMENT/PLAN Encounter for supervision of other normal , third trimester (Primary) Class 1 obesity due to excess calories without serious comorbidity with body mass index (BMI) of 33.0 to 33.9 in adult Diet controlled gestational diabetes mellitus (GDM) in third trimester Antepartum anemia complicating Excessive growth affecting management of , antepartum, single or unspecified fetus - Following with MFM. Growth percentile was down at last MFM appointment (from 97th percentile to 85th). Encouraged her to follow-up for repeat growth scan. Stressed the importance of monitoring EFW.She is agreeable to continuing to follow at this time. Supervision of - discussed GBS and to expect swab to be complete at next visit. Will schedule 1 week KATY early to complete GBS in 36th week. - new OB book given today. Packing list and [facility] online birthing class information given. - reviewed plan and preferences. - labor precautions and kick counts reviewed RTO in 1 week for KATY/GBS Claire Caballero PA-C 09/28/2023 * Jaqueline Chery LPN - 09/28/2023 2:25 PM EDT 35w0d Denies vaginal bleeding/rom + movement No new concerns documented in this encounter Plan of Treatment Upcoming Encounters Date Type Department Care Team (Late st Contact Info) Description 10/02/2023 11:30 AM EDT Office Visit Gynecology/Obstetrics Shanna [facility] [address] [place] [address] [place], [place] [address] [place] [address] 10/09/2023 1:30 PM EDT [facility] [address] [place] [phone] Khris Topete [address] [place] [address] 10/09/2023 2:15 PM EDT Office Visit Gynecology/Obstetrics [facility] [address] [place] [address] Indira Cleveland CRNP [address] [place] [address] 10/10/2023 9:30 AM EDT Pharmacy Pharmacy, [place] [address] [place] [address] [facility], [place] [address] [place] [address] 10/16/2023 3:00 PM EDT Office Visit Gynecology/Obstetrics [facility] [address] [facility] [address] Praveen Carranza MD [address] [place] [address] 10/19/2023 2:45 PM EDT Office Visit Assistant Director Of Admissions Obstetrics Maternal Medicine, [place] [address] [place] [address] Cam Sim, [address] [place] [address] 10/19/2023 2:45 PM EDT Imaging Radiology [facility], [place] [address] [place] [address] 10/24/2023 3:00 PM EDT [facility] [address] [place] [address] Praveen Carranza MD [address] [place] [address] 10/29/2023 8:45 AM EDT Office Visit [facility]cology[facility] [address] [place] [address] Praveen Carranza MD [address] [place] [address] 05/12/2024 10:00 AM EST Office Visit Family Practice [facility] [address] [place] [address] Malinda Owens CRNP [address] [place] [address] Health Maintenance Due Date Last Done Comments [...] Encounter for supervision of other normal , third trimester- Primary Class 1 obesity due to excess calories without serious comorbidity with body mass index (BMI) of 33.0 to 33.9 in adult Diet controlled gestational diabetes mellitus (GDM) in third trimester Antepartum anemia complicating Anemia, antepartum Excessive growth affecting management of , antepartum, single or unspecified fetus documented in this encounter Care Teams Music Rehabilitation Therapist Relationship Specialty Start Date End Date Malinda Owens CRNP [address] [place] [address] PCP - General Nurse Practitioner 09/20/23 documented as of this encounter"
--- OUTSIDE RECORDS SUMMARY | 2023-10-30 18:01 | External Medical Summary ---
Author Name Unknown Address Unknown Organization K01:LABORATORY [facility] - [address] [place] [address] Laboratory Report Ordering Provider Test Date Status ANTWON BARLOW 10/09/2023 13:33:49 Final Observation Date Value Abnormality Reference (Units ) Status Iron 10/09/2023 13:33:49 83 33-151 (ug/dL) Final Iron-binding capacity 10/09/2023 13:33:49 456 Above high normal 250-425 (ug/dL) Final Transferrin Sat % 10/09/2023 13:33:49 18 15-55 (%) Final Performing Location LABORATORY [facility] - [address] [place] [address]
--- OUTSIDE RECORDS SUMMARY | 2023-10-30 18:01 | External Medical Summary ---
Author Name Unknown Address Unknown Organization K01:LABORATORY C - [address] [place] [address] Laboratory Report Ordering Provider Test Date Status ANTWON BARLOW 10/09/2023 13:33:49 Final Observation Date Value Abnormality Reference (Units ) Status Vitamin B12 10/09/2023 13:33:49 201 Below low normal 2 32-1245 (pg/mL) Final Performing Location LABORATORY [facility] - [address] [place] [address]
--- OUTSIDE RECORDS SUMMARY | 2023-10-30 18:01 | External Medical Summary | Summary of Care ---
Author Name Unknown Organization [facility] Address [address] [place] [place] [facility] [place] [address] Phone [phone] Care Team Providers Care Crop Supervisor Name Role Phone Malinda Owens Primary Care Provider [phone] Reason for Visit * Reason Comments Return Visit Encounter Details Date Type Department Care Team (Late st Contact Info) Description 10/02/2023 11:30 AM EDT Office Visit Gynecology/Obstetric s Shanna Top[facility] [address] [place] [address] BackYvrose davis CRNP [address] [place] [address] Encounter for supervision of other normal , [...] as of this encounter (statuses as of 10/02/2023) Medications Medication Sig Dispensed Refills Start Date [...] Active OneTouch Verio In Vitro Strip (Glucose Blood)Indications:D iet controlled gestational diabetes mellitus (GDM) in third trimester Use to test blood sugars 4 times daily (fasting, 1 hour after breakfast, lunch, and dinner) 125 Strip 6 09/20/2023 Active OneTouch Delica Lancets 30GIndications:Diet controlled gestational diabetes mellitus (GDM) in third trimester Use to test blood sugars 4 times daily (fasting, 1 hour after breakfast, lunch, and dinner) 200 Each 6 09/20/2023 Active Doxylamine Succinate (Sleep) 25 MG Oral Tablet (Unisom SleepTabs) Take 1 Tablet by mouth at bedtime as needed. 0 10/02/2023 Discontinued (Medication List Clean Up) documented as of this encounter (statuses as of 10/02/2023) Active Problems Problem Noted Date Diagnosed Date [...] complete. Enrolled in Current Health. Plans to pick up worker meter from pharmacy today. Instructions provided to report blood sugars each week for MFM review 09/25/23: RPM reviewed; Stable; continue diet controlled Last Assessment & Plan: She presents for an assessment of growth and anatomy secondary to GDMA1, previously noted LGA, and class I obesity. Per review of GREIGE GOODS INSPECTOR documentation of 09/25/23, blood glucose values have [...] and folate levels and referral to a marine diver. If hemoglobin levels are below 8 g/dl, we recommend Maternal Medicine ultrasound for growth every 4 weeks after 24 weeks. Consider a blood transfusion if hemoglobin levels fall below 6 g/dL. ([employer] Obst[employer] and [place] Worker Practice Bulletin Number 95, December,). Consider [...] as of this encounter (statuses as of 10/02/2023) Resolved Problems Problem Noted Date Diagnosed Date Resolved Date Abnormal glucose tolerance i n mother complicating 04/19/2023 08/31/2023 Overview: Failed early glucola. 3hr GTT ordered documented as of this encounter (statuses as of 10/02/2023) Immunizations Name Administration Dates Next Due DTP Vaccine 01/02/1997, 5,1994,05/19 DTaP Dipth/Tet/Acell Pertussis (Infanrix), Peds 01/18/2000,01/02/1997 HEP A - Hepatitis A (Adult > 18 yrs) 08/22/2019 HPV Vaccine, 4-Valent 11/13/2012,03/21/2012 Haemophilius B (HIB), unspecified 1994,,1994 Hep A - Hepatitis A (ped/ado le, 1-18 Yrs) 11/13/2012,02/02/2010 Hepatitis A Vaccine 02/02/2010 Hepatitis B, 0-19 yrs 02/17/1995,1994,1007/1993 IPV - Polio Virus Vaccine (Inact) 01/18/2000 [...] money to get more. Never true 01/19/2023 [place] Depression Scale Answer Date Recorded [place] Depression Scale Total 5 09/28/2023 The thought [...] Reading Time Taken Comments Blood Pressure 98/60 10/02/2023 11:22 AM EDT Pulse - - Temperature - - Respiratory Rate - - Oxygen Saturation - - Inhaled Oxygen Concentration - - Weight 108 kg (238 lb) 10/02/2023 11:22 AM EDT Height - - Body Mass Index 35.15 08/13/2023 8:08 AM EST documented in this encounter Progress Notes * Yvrose Seymour CRNP - 10/02/2023 11:28 AM EDT 35w4d Doing well, good movement. No ctx/bleeding. Increase in physiologic vaginal discharge, no itching/burning/odor. Followed by [facility] for GDM. Has another growth scan scheduled in a few weeks with MFM. Labor instructions provided. GBS next visit. AD Ritchie * Jaqueline Chery LPN - 10/02/2023 11:24 AM EDT 35w4d Denies vaginal bleeding/rom + movement Increased dischage documented in this encounter Plan of Treatment Upcoming Encounters Date Type Department Care Team (Late st Contact Info) Description 10/09/2023 1:30 PM EDT [facility] [address] [phone] Khris Topete [address] [place] [address] 10/09/2023 2:15 PM EDT Office Visit Gynecology/Obstetrics [facility] [address] [place] [address] Indira Cleveland CRNP [address] [place] [address] 10/10/2023 9:30 AM EDT Pharmacy Pharmacy, [place] [address] [place] [address] [place] [address] [place] [address] 10/16/2023 3:00 PM EDT Office Visit Gynecology/Obstetrics [facility] [address] [place] [address] Praveen Carranza MD [address] [place] [address] 10/19/2023 2:45 PM EDT Office Visit Cane Piler Obstetrics Maternal Medicine, [place] [address] [place] [address] Cam Sim, [address] [place] [address] 10/19/2023 2:45 PM EDT Imaging Radiology [place] [address] [place] [address] 10/24/2023 3:00 PM EDT Office Visit Gynecology/Obstetrics [facility] [address] [place] [address] Praveen Carranza MD [address] [place] [address] 10/29/2023 8:45 AM EDT Office Visit Gynecology/Obstetrics [facility] [address] [place] [address] Praveen Carranza MD [address] [place] [address] 05/12/2024 10:00 AM EST Office Visit Family [facility] [address] [place] [address] Malinda Owens CRNP [address] [place] [address] Health Maintenance Due Date Last Done Comments [...] trimester documented in this encounter Care Teams Crop Supervisor Relationship Specialty Start Date End Date Malinda Owens CRNP [address] [place] [address] PCP - General Nurse Practitioner 09/20/23 documented as of this encounter
--- OUTSIDE RECORDS SUMMARY | 2023-10-30 18:01 | External Medical Summary ---
Author Name Unknown Address Unknown Organization K01:LAB[facility]ATORY [facility] - [address] [place] [address] Laboratory Report Ordering Provider Test Date Status ANTWON BARLOW 10/09/2023 13:33:49 Final Observation Date Value Abnormality Reference (Units ) Status Ferritin 10/09/2023 13:33:49 90 13-150 (ng /mL) Final Performing Location [facility] [address] [address] [place] [address]
--- OUTSIDE RECORDS SUMMARY | 2023-10-30 18:01 | External Medical Summary | Summary of Care ---
Author Name Unknown Organization [facility] Address [address] [place] [facility] [place] [place] [address] Phone [phone] Care Team Providers Care Director Of Strategic Communications Name Role Phone Malinda Owens Primary Care Provider [phone] Encounter Details Date Type Department Care Team (Late st Contact Info) Description 10/05/2023 Telephone Gynecology/Obstetrics [facility] [address] [place] [address] Indira Cleveland CRNP [address] [facility] [place] [address] Allergies No known active allergiesdocumented as of this encounter (statuses as of 10/05/2023) Medications Medication Sig Dispensed Refills Start Date End Date Status 19 29-1 MG Oral Tablet Chewable Take by mouth. 0 Active Vitamin B-12 1000 MCG Oral Tablet (Cyanocobalamin)Indica tions:Antepartum anemia complicating Take 1 Tablet by mouth in the morning. 30 Tablet 5 08/14/2023 Active LOGIC DEVICE[employer]oWeb Performance Verio Flex System w/Device KitIndications:Diet controlled gestational diabetes mellitus (GDM) in third trimester Use to test blood sugars 4 times daily (fasting, 1 hour after breakfast, lunch, and dinner) 1 Kit 0 09/20/2023 Active LOGIC DEVICESTouch Verio In Vitro Strip (Glucose Blood)Indications:Diet controlled [...] as of this encounter (statuses as of 10/05/2023) Active Problems Problem Noted Date Diagnosed Date [...] complete. Enrolled in Current Health. Plans to curing pickling packer meter from pharmacy today. Instructions provided to report blood sugars each week for MFM review 09/25/23: RPM reviewed; Stable; continue diet controlled 10/03/23: RPM reviewed; Stable Last Assessment & Plan: She presents for an assessment of growth and anatomy secondary to GDMA1, previously noted LGA, and class I obesity. Per review of IT APPLICATION DEVELOPMENT MANAGER documentation of 09/25/23, blood glucose values [...] and folate levels and referral to a quality assurance practice manager. If hemoglobin levels are below 8 g/dl, we recommend Maternal Medicine ultrasound for growth every 4 weeks after 24 weeks. Consider a blood transfusion if hemoglobin levels fall below 6 g/dL. ([employer] [place] Bulletin Number 95, December,). Consider Venofer [...] as of this encounter (statuses as of 10/05/2023) Resolved Problems Problem Noted Date Diagnosed Date Resolved Date Abnormal glucose tolerance i n mother complicating 04/19/2023 08/31/2023 Overview: Failed early glucola. 3hr GTT ordered documented as of this encounter (statuses as of 10/05/2023) Immunizations Name Administration Dates Next Due DTP [...] money to get more. Never true 01/19/2023 [place] Depression Scale Answer Date Recorded [place] Depression Scale Total 5 09/28/2023 The thought [...] encounter Miscellaneous Notes * Telephone Encounter - Em Amato RN - 10/05/2023 9:01 AM EDT Pt is having pelvic pain only when she walks. Feels completely fine when sitting. Only happens withwalking. Denies any bleeding, ROM, or decreased movement. Advised to push fluids, try tylenoland heat or a belly band. Pt agreeable. documented in this encounter Plan of Treatment Upcoming Encounters Date Type Department Care Team (Late st Contact Info) Description 10/09/2023 1:30 PM EDT Laboratory Laboratory, [facility] [address] [facility] [phone] [facility] [place] [address] 10/09/2023 2:15 PM EDT Office Visit Gynecology/Obstetrics [facility] [address] [place] [address] Indira Cleveland CRNP [address] [facility] [place] [address] 10/10/2023 9:30 AM EDT Pharmacy Pharmacy, [id number] [place] [address] [place] [address] 10/16/2023 3:00 PM EDT Office Visit Gynecology/Obstetrics [facility] [address] [facility] [place] [address] Praveen Carranza MD [address] [place] [address] 10/19/2023 2:45 PM EDT Office Visit District Plant Engineer Obstetrics Maternal Medicine, [address] [address] Cam Sim, [address] [place] [address] 10/19/2023 2:45 PM EDT [facility] [address] [place] [address] 10/24/2023 3:00 PM EDT Office Visit Gynecology/Obstetrics [facility] [address] [place] [address] Praveen Carranza MD [address] [place] [address] 10/29/2023 8:45 AM EDT Office Visit Gynecology/Obstetrics [facility] [address] [place] [address] Praveen Carranza MD [address] [place] [address] 05/12/2024 10:00 AM EST Office Visit Family Practice [facility] [address] [place] [address] Malinda Owens CRNP [address] [place] [address] Health Maintenance Due Date Last Done Comments [...] filedocumented as of this encounter Care Teams Director Of Strategic Communications Relationship Specialty Start Date End Date Malinda Owens CRNP [address] [place] [address] PCP - General Nurse Practitioner 09/20/23 documented as of this encounter
--- OUTSIDE RECORDS SUMMARY | 2023-10-30 18:01 | External Medical Summary ---
Author Name Unknown Address Unknown Organization K01:[facility] - [address] [place] [address] Laboratory Report Ordering Provider Test Date Status ANTWON BARLOW 10/09/2023 13:33:49 Final Observation Date Value Abnormality Reference (Units ) Status Folic Acid 10/09/2023 13:33:49 18.2 >4.5 (ng/ mL) Final Performing Location [facility] - [address] [place] [address]
--- OUTSIDE RECORDS SUMMARY | 2023-10-30 18:01 | External Medical Summary ---
Author Name Unknown Address Unknown Organization K01:LABORATORY [facility] - [facility] [address] [facility] [address] [facility] [address] Laboratory Report Ordering Provider Test Date Status ANTWON BARLOW 10/09/2023 13:33:49 Final Observation Date Value Abnormality Reference (Units ) Status WBC, Total 10/09/2023 13:33:49 8.02 4.00-10.80 (K/uL) Final RBC 10/09/2023 13:33:49 3.51 3.85-5.15 (M/uL) Final Hemoglobin 10/09/2023 13:33:49 11.9 Below low normal 12.0-15.3 (g/dL) Final HCT 10/09/2023 13:33:49 37.0 36.0-45.2 (%) Final MCV 10/09/2023 13:33:49 105.4 81.5-97.5 (fL) Final MCH 10/09/2023 13:33:49 33.9 27.0-34.0 (pg) Final MCHC 10/09/2023 13:33:49 32.2 32.0-36.0 (g/dL) Final RDW 10/09/2023 13:33:49 13.2 11.5-15.5 (%) Final Platelets 10/09/2023 13:33:49 196 140-400 (K/uL) Final MPV 10/09/2023 13:33:49 10.9 6.6-11.1 (fL) Final Nucleated erythrocytes/100 leukocytes [Ratio] in Blood by Automated count 10/09/2023 13:33:49 0 <=0 (/100 WBCs) Final Performing Location LABORATORY [facility] - [address] [facility] [place] [address]
--- OUTSIDE RECORDS SUMMARY | 2023-10-30 18:01 | External Medical Summary | Summary of Care ---
Author Name Unknown Organization [facility] Address [address] [place] [address] Phone [phone] Care Team Providers Care Historiography Professor Name Role Phone Malinda Owens Primary Care Provider [phone] Encounter Details Date Type Department Care Team (Late st Contact Info) Description 09/27/2023 10:45 AM EDT Office Visit Jordan Man Obstetrics Maternal Medicine, [place] [address] [place] [address] Cam Sim, [address] [place] [address] Diet controlled gestational diabetes mellitus (GDM) in third trimester*; Excessive growth affecting management of , antepartum, single or unspecified fetus; 34 weeks gestation of ; Other specified related conditions, unspecified trimester Allergies No known active allergiesdocumented as of this encounter (statuses as of 09/27/2023) Medications Medication Sig Dispensed Refills Start Date [...] the morning. 30 Tablet 5 08/14/2023 Active StylefinchTouch Boost Communicationsio Flex System w/Device KitIndications:Diet controlled gestational diabetes mellitus (GDM) in third trimester Use to test blood sugars 4 times daily (fasting, 1 hour after breakfast, lunch, and dinner) 1 Kit 0 09/20/2023 Active SeeOnuch [email or web address] In Vitro Strip (Glucose Blood)Indications:Diet controlled gestational diabetes mellitus (GDM) in third trimester Use to test blood sugars 4 times daily (fasting, 1 hour after breakfast, lunch, and dinner) 125 Strip 6 09/20/2023 Active StylefinchTouch Delica Lancets 30GIndications:Diet controlled gestational diabetes mellitus (GDM) in third trimester Use to test blood sugars 4 times daily (fasting, 1 hour after breakfast, lunch, and dinner) 200 Each 6 09/20/2023 Active documented as of this encounter (statuses as of 09/27/2023) Active Problems Problem Noted Date Diagnosed Date [...] complete. Enrolled in Current Health. Plans to machine pecan picker meter from pharmacy today. Instructions provided to report blood sugars each week for MFM review 09/25/23: RPM reviewed; Stable; continue diet controlled Last Assessment & Plan: She presents for an assessment of growth and anatomy secondary to GDMA1, previously noted LGA, and class I obesity. Per review of NURSING STAFF DEVELOPMENT COORDINATOR documentation of 09/25/23, blood glucose values have [...] and folate levels and referral to a sail repairer. If hemoglobin levels are below 8 g/dl, we recommend Maternal Medicine ultrasound for growth every 4 weeks after 24 weeks. Consider a blood transfusion if hemoglobin levels fall below 6 g/dL. ([employer] Practice Bulletin Number 95, December,). Consider Venofer [...] as of this encounter (statuses as of 09/27/2023) Resolved Problems Problem Noted Date Diagnosed Date Resolved Date Abnormal glucose tolerance i n mother complicating 04/19/2023 08/31/2023 Overview: Failed early glucola. 3hr GTT ordered documented as of this encounter (statuses as of 09/27/2023) Immunizations Name Administration Dates Next Due DTP [...] money to get more. Never true 01/19/2023 [place] Depression Scale Answer Date Recorded [place] Depression Scale Total 9 04/03/2023 The thought [...] of this encounter Progress Notes * Cam Sim DO - 09/27/2023 12:45 PM EDT MATERNAL MEDICINE VISIT Yuli Gutierrez is at 34w6d who presents to [facility] for an ultrasound and follow-up of her high risk . PHYSICAL EXAM: General: pleasant, alert and oriented, no acute distress She is being seen today by Maternal- Medicine for the following reasons: Problem List Items Addressed This Visit Excessive growth affecting management of mother, antepartum Diet controlled gestational diabetes mellitus (GDM) in third trimester - Primary She presents for an assessment of growth and anatomy secondary to GDMA1, previously noted LGA, and class I obesity. Per review of NURSING STAFF DEVELOPMENT COORDINATOR documentation of 09/25/23, blood glucose values have been well- controlled with diet, which she confirms today as [...] identify all anomalies, but it is reassuring thatno anomalies were seen today. We reviewed that [...] weeks to assess growth prior to delivery. We reviewed today's ultrasound findings. (For full report, please refer to ultrasound report provided separately). Ms. Gutierrez's questions were answered to her satisfaction. RECOMMENDATIONS: Recommend follow up ultrasound in 4 weeks for growth secondary to the above. Thank you for allowing us to participate in the care of this patient. Please call with any questions. Cam Sim DO 09/27/2023 12:45 PM documented in this encounter Miscellaneous Notes * Assessment & Plan Note - Cam Sim DO - 09/27/2023 12:04 PM EDT Associated Problem(s): Diet controlled gestational diabetes mellitus (GDM) in third trimester She presents for an assessment of growth and anatomy secondary to GDMA1, previously noted LGA, and class I obesity. Per review of NURSING STAFF DEVELOPMENT COORDINATOR documentation of 09/25/23, blood glucose values have been well- controlled with diet, which she confirms today as [...] identify all anomalies, but it is reassuring thatno anomalies were seen today. We reviewed that [...] weeks to assess growth prior to delivery. documented in this encounter Plan of Treatment Upcoming Encounters Date Type Department Care Team (Late st Contact Info) Description 09/28/2023 2:30 PM EDT Office Visit Gynecology/Obstetrics Shanna Topete [address] [place] [address] Claire Caballero PA-C [address] [place] [address] 10/09/2023 1:30 PM EDT [facility] [address] [place] [phone] Khris Topete [address] [place] [address] 10/09/2023 2:15 PM EDT Office Visit Gynecology/Obstetrics [facility] [address] [place] [address] Indira Cleveland CRNP [address] [place] [address] 10/10/2023 9:30 AM EDT Pharmacy Pharmacy, [place] [address] [place] [address] [facility] [address] [place] [address] 10/16/2023 3:00 PM EDT Office Visit Gynecology/Obstetrics [facility] [address] [place] [address] Praveen Carranza MD [address] [place] [address] 10/19/2023 2:45 PM EDT Office Visit Jordan Man Obstetrics Maternal Medicine, [place] [address] [place] [address] Cam Sim, [address] [place] [address] 10/19/2023 2:45 PM EDT Imaging Radiology [facility], [place] [address] [place] [address] 10/24/2023 3:00 PM EDT [facility] [address] [place] [address] Praveen Carranza MD [address] [place] [address] 10/29/2023 8:45 AM EDT Office Visit Gynecology/Obstetrics [facility] [address] [place] [address] Praveen Carranza MD [address] [place] [address] 05/12/2024 10:00 AM EST Office Visit Family [facility] [address] [place] [address] Malinda Owens CRNP [address] [place] [address] Scheduled Orders Name Type Priority Associated Diagnoses Orde r Schedule MFM US PREG FOLLOW UP EACH FETUS Medical Imaging Routine Diet controlled gestational diabetes mellitus (GDM) in third trimester Excessive growth affecting management of , antepartum, single or unspecified fetus Other specified related conditions, unspecified trimester 1 Occurrences starting 09/27/2023 until 11/02/2023 Health Maintenance Due Date Last Done Comments [...] of , antepartum, single or unspecified fetus 34 weeks gestation of state, incidental Other specified related conditions, unspecified trimester documented in this encounter Care Teams Historiography Professor Relationship Specialty Start Date End Date Malinda Owens CRNP [address] [place] [address] PCP - General Nurse Practitioner 09/20/23 documented as of this encounter
--- OUTSIDE RECORDS SUMMARY | 2023-10-30 18:01 | External Medical Summary ---
Author Name Unknown Address Unknown Organization K01:LABORATORY [facility] - [address] [place] [address] Laboratory Report Ordering Provider Test Date Status ANTWON BARLOW 10/09/2023 13:33:49 Final Observation Date Value Abnormality Reference (Units ) Status Retic, % (auto) 10/09/2023 13:33:49 2.91 Above high normal 0.80-1.90 (%) Final Reticulocytes, Absolute 10/09/2023 13:33:49 102.1 Above high normal 31.3-100.1 (K/uL) Final Reticulocyte fraction, immature 10/09/2023 13:33:49 23.0 Above high normal 2.5-20.6 (%) Final Reticulocyte HGB 10/09/2023 13:33:49 35.6 29.7-37.4 (pg) Final Performing Location LAB[facility]ATORY [facility] [address] [facility] [address]
--- OUTSIDE RECORDS SUMMARY | 2023-10-30 18:01 | External Medical Summary ---
Author Name Unknown Address Unknown Organization K01:LABORATORY [facility] - [address] [facility] [place] [address] Laboratory Report Ordering Provider Test Date Status ANTWON BARLOW 10/09/2023 13:33:49 Final Observation Date Value Abnormality Reference (Units ) Status SYNC LEUKOCYTES IN BLOOD BY AUTOMATED COUNT 10/09/2023 13:33:49 8.02 4.00-10.80 (K/uL) Final Segs 10/09/2023 13:33:49 73.2 40.0-75.0 (%) Final Lymphs % 10/09/2023 13:33:49 17.2 Below low normal 18.0-42.0 (%) Final Monos 10/09/2023 13:33:49 8.2 1.0-11.0 (%) Final Eosinophils 10/09/2023 13:33:49 0.5 0.0-6.0 (%) Final Basos 10/09/2023 13:33:49 0.2 0.0-2.0 (%) Final Immature Granulocyte, Percent 10/09/2023 13:33:49 0.7 0.0-2.0 (%) Final Absolute Segs 10/09/2023 13:33:49 5.86 1.80-7.70 (K/uL) Final Lymphs, absolute 10/09/2023 13:33:49 1.38 1.00-4.80 (K/ul) Final Monos, Abs 10/09/2023 13:33:49 0.66 0.00-1.10 (K/uL) Final Eos, Abs 10/09/2023 13:33:49 0.04 0.00-0.70 (K/uL) Final Basos, Abs 10/09/2023 13:33:49 0.02 0.00-0.20 (K/uL) Final Immature Granulocytes, Number 10/09/2023 13:33:49 0.06 0.00-0.20 (K/uL) Final Performing Location LABORATORY [facility] - [address] [facility] [address]
--- OUTSIDE RECORDS SUMMARY | 2023-10-30 18:02 | External Medical Summary | Summary of Care ---
Author Name Unknown Organization [facility] Address [address] [place] [address] Phone [phone] Care Team Providers Care Bilingual Teacher Name Role Phone Malinda Owens Primary Care Provider [phone] Reason for Visit * Reason Comments DSMT INITIAL * Evaluate & Treat - Unlimited Visits (Within 10 days (routine)) - Pending Review Specialty Diagnoses / Procedures Referred By Bennie gilliland Referred To Contact Territory Account Executive / Nutrition Services Diagnoses Diet controlled gestational diabetes mellitus (GDM) in third trimester Indira Cleveland CRNP [address] [place] [address] Referral ID Status Reason Start Date Expiration Date Visits Requested Visits Authorized [id number] Pending Review Specialty Services Required 09/20/[phone] Encounter Details Date Type Department Care Team ([facility] st Contact Info) Description 09/24/2023 9:00 AM EDT Telemedicine Nutrition Services, [facility] [address] [place] [address] Anai Mustafa RDN [address] [place] [address] Diet controlled gestational diabetes mellitus (GDM) in third trimester [O24.410]* Allergies No known active allergiesdocumented as of this encounter (statuses as of 09/24/2023) Medications Medication Sig Dispensed Refills Start Date [...] the morning. 30 Tablet 5 08/14/2023 Active enVistauch Verio Flex System w/Device KitIndications:Diet controlled gestational diabetes mellitus (GDM) in third trimester Use to test blood sugars 4 times daily (fasting, 1 hour after breakfast, lunch, and dinner) 1 Kit 0 09/20/2023 Active Rumble In Vitro Strip (Glucose Blood)Indications:Diet controlled gestational diabetes mellitus (GDM) in third trimester Use to test blood sugars 4 times daily (fasting, 1 hour after breakfast, lunch, and dinner) 125 Strip 6 09/20/2023 Active Mis Descuentos Delica Lancets 30GIndications:Diet controlled gestational diabetes mellitus (GDM) in third trimester Use to test blood sugars 4 times daily (fasting, 1 hour after breakfast, lunch, and dinner) 200 Each 6 09/20/2023 Active documented as of this encounter (statuses as of 09/24/2023) Active Problems Problem Noted Date Diagnosed Date [...] Enrolled in Current Health. Plans to picker and sorter load and unload meter from pharmacy today. Instructions provided to report blood sugars each week for MFM review Last Assessment & Plan: CONSIDERATIONS: Reviewed etiology and risks associated with gestational diabetes mellitus (GDM), including risks to , fetus, and maternal progression to Type 2 DM. Instructed on proper use of glucometer; supplies ordered, if indicated. Advised that life-long screening for diabetes is recommended every 1-3 years. RECOMMENDATIONS: Recommend monitoring blood sugars with daily fasting blood sugar (maintained at less than or equal to 95) and 1 hour postprandial measurements (maintained at less than or equal to 140). Medications should be adjusted to maintain these target values. Report levels to MFM (Maternal- Medicine) weekly. Recommend nutrition consult with RDN (Registered Dietitian Final Assembler Boat). Lifestyle changes are also indicated including optimizing gestational weight gain and physical activity of 30 minutes per day, if not otherwise contraindicated in . Insulin is preferred if medications are indicated to optimize euglycemia. Metformin (preferred over glyburide) may also be used in some circumstances. Reviewed the risks and benefits of each. Recommend ultrasound, surveillance and delivery as follows: A1GDM, delivery should be accomplished by 41w0d. A2GDM, recommend growth assessment with MFM every 4 weeks, initiate surveillance at 32 weeks and continue until delivery at 39 weeks. Recommend intrapartum monitoring every 1-2 hours (A2GDM) or every 4 hours (A1GDM) and treat with insulin if indicated. Recommend 2-hour glucose tolerance testing with 75-gram glucose load 6-8 weeks . Excessive growth affec ting management of mother, [...] and folate levels and referral to a mechanical artist. If hemoglobin levels are below 8 g/dl, we recommend Maternal Medicine ultrasound for growth every 4 weeks after 24 weeks. Consider a blood transfusion if hemoglobin levels fall below 6 g/dL. ([employer] Practice Bulletin Number 95, December,). Consider [...] as of this encounter (statuses as of 09/24/2023) Resolved Problems Problem Noted Date Diagnosed Date Resolved Date Abnormal glucose tolerance i n mother complicating 04/19/2023 08/31/2023 Overview: Failed early glucola. 3hr GTT ordered documented as of this encounter (statuses as of 09/24/2023) Immunizations Name Administration Dates Next Due DTP [...] money to get more. Never true 01/19/2023 [place] Depression Scale Answer Date Recorded [place] Depression Scale Total 9 04/03/2023 The thought [...] on file documented as of this encounter Patient Instructions * Patient Instructions* Anai Mustafa RDN - 09/24/2023 10:09 AM EDT Participant Selected Behavioral Objective: Nutrition: To improve blood glucose control I will at least 3 times before next visit, follow a meal plan of 30-45 grams of carbohydrate at each meal, 0-15 grams at morning and afternoon snack and 15-30 grams at evening snack. documented in this encounter Progress Notes * Anai Mustafa RDN - 09/24/2023 9:00 AM EDT DIABETES SELF-MANAGEMENT TRAINING/INITIAL NOTE Name: Yuli Gutierrez Date: 09/24/2023 Patient location: HOME. I was in a hospital or clinic location. After connecting through televideo,patient was verified with two unique identifiers. Patient (or authorized legal sales representative metals) was then informed that this was a Telemedicine visit and being conducted confidentially over secure lines. Methods to assure confidentiality were taken. Patient acknowledged consent and understanding of pr ivacy and security of the Telemedicine visit. The patient agreed to participate. Last order of DIABETES MANAGEMENT EDUCATION (ADA) REFERRAL was found on 09/20/2023 from Telephone on 09/20/2023 No order of CLINICAL NUTRITION AND DIABETES EDUCATION ANNUAL RENEWAL is found. No order of PEDIATRIC DIABETES MANAGEMENT EDUCATION (ADA) REFERRAL OP is found. ADA referral in place? Yes Participant scheduled for 1:1 training due to lack of classes scheduled within 2 months of appointment. What diabetes concerns and/or barriers to care would you like to discuss in your appointment: Here for initial Gestational Diabetes education at 34 week 3 days gestation. She visited with Maternal Medicine staff for overview of diabetes management during , including glucometer instruction. Now in for nutrition education. Participant is taking vitamins. Reports no problems with nausea/vomiting/constipation/diarrhea/heartburn. Participant is not enrolled in [place]. Participant plans to breast feed. In your words, what is diabetes? "Diabetes that you get just in , caused by the placenta." Do you know the risks of uncontrolled diabetes? Yes Do you believe that diabetes can be controlled? Yes Are you ready to make small changes to help with diabetes self-management: Yes What type of diabetes do you have? Gestational Diabetes Mellitus: Are you aware of the post- glucose screening recommendations? Yes Female of childbearing age with any type of diabetes or considering . N/A Diabetes diagnosis year: 2023 Do you have a family history of diabetes? Yes Have you had any previous diabetes education? Yes Support systems: Spouse Barriers to care: None Special Needs: None Psychosocial Screening: Lately have you been feeling down, depressed or hopeless most of the day? No How Do You Manage Stress? Breathing exercises Talking to family/friends Takes a bath in the evenings Watches television Food Insecurity: Within the past 12 months, I worried whether our food would run out before we got money to buy more. No Within the past 12 months, the food we bought just did not last and we did not have money to buy more. No Sleep Health: Addressed - How many hours are you sleeping during the night? 8-10 hours Do you have difficulty falling or staying asleep? No Do you snore? No Are you waking up during the night with symptoms of low glucose levels (shaky, sweaty, nightmares)?No Are you waking up during the night to urinate frequently? No Diabetes Medications: None Monitoring blood glucose, interpreting and using results Self-Monitoring Blood Glucose Source of Information: Data obtained from this chart. Participant is using the Current Health phoneapplication to report blood glucose levels to [facility] Frequency of tests: 4 times daily -fasting and 1 hour after each meal. Started checking her blood glucose levels on Wednesday 09/20 Blood Glucose Levels 09/20-09/24/23: Fasting: After breakfast: After lunch: After supper: X X X 136 67 99 87 130 76 123 83 155 72 Summary: Blood glucose level was elevated last evening due to participant eating at a restaurant and drinking 1/2 sweetened and 1/2 unsweetened iced tea with this meal. Hypoglycemia?: No Diet: Describes typical diet history/24-hour recall: Breakfast 9 AM: Has started to eat this meal on a daily basis. During the week - [place] yogurt with granola and sometimes fruit added, water. Weekends - scrambled eggs with vegetables added, toast, water. Snacks: States that the snacks are tough. Trying to have fruit (apple with peanut butter). Drinks water. Lunch 12 PM during work week, weekends - a little later: Likes BLT sandwich. On other days, might have leftovers. Drinks water. Snacks: "Hit or miss", if she feels hungry. Fruit or baby carrots or peppers with cream cheese. Dinner weekdays -6-7 PM, weekends - 5 PM: Yesterday - ate at a restaurant - hamburger on a bun, side salad, iced tea - 1/2 sweetened, 1/2 unsweetened Snacks 7-8 PM: Usually eats this snack. Grapes, Carb Smart ice cream bar, water. Drinks: Water, diet green tea Restaurant meals: once a week Alcohol: None Tobacco Use: No Weight management review: Wt Readings from Last 12 Encounters: 09/14/23 110.2 kg (243 lb) 08/31/23 108.9 kg (240 lb) 08/13/23 108 kg (238 lb) 07/31/23 107.5 kg (237 lb) 06/20/23 104.3 kg (230 lb) 06/01/23 104.8 kg (231 lb) 05/17/23 102.6 kg (226 lb 3.2 oz) 05/11/23 102.6 kg (226 lb 4.8 oz) 04/27/23 102.9 kg (226 lb 12.8 oz) 04/19/23 104.2 kg (229 lb 12.8 oz) 04/03/23 103 kg (227 lb) 01/29/23 106 kg (233 lb 9.6 oz) Prepregnancy weight: 233 lb Prepregnancy BMI: 34.4 Recommended weight gain by term : 11-20 lb Total weight gain in : 10 lb at 34 weeks 3 days gestation which is at goal. Goal is slow rate of weight gain per week until delivery. Physical Activity: Light activity level. Does move around in her house, but her back is starting to be more uncomfortable. Was doing yoga during second trimester. ADA STANDARDS OF CARE/BUNDLE MEASURES Diabetes Bundle / Standards of Care: Gestational Diabetes Participant Therapy Management Plan: Hypertension: BP Readings from Last 3 Encounters: 09/14/23 100/60 09/07/23 99/62 08/31/23 130/75 Gestational Diabetes Participant, being monitored by [facility]. Dyslipidemia: Gestational Diabetes Mellitus Participant Kidney function review: Lab Results Component Value Date/Time ESTIMATED GLOMERULAR FILTRATION RATE - [facility] >90 08/13/2023 07:56 AM Gestational Diabetes Mellitus Participant DSMT/Diabetes MNT Diagnosis: Food and nutrition related knowledge deficit related to nutritional management of gestational diabetes as evidenced by participant interview. DSMT Initial Visit Assessment of Content Areas: Choose the answer that represents the participant's competency in each area. All need to be assessed at initial. Areas taught must match intervention. If content area not assessed and/or intervened today, it will be deferred to future session. Diabetes disease process and treatment process: Needs instruction (1) Incorporating nutrition management into lifestyle: Needs instruction (1) Incorporating physical activity into lifestyle: Needs instruction (1) Using medications safely: Needs instruction (1) Monitoring blood glucose, interpreting and using results: Needs instruction (1) Prevention, detection, and treatment of acute complications: Needs instruction (1) Prevention, detection, and treatment of chronic complications: Needs instruction (1) Developing strategies to address psychosocial issues: Needs instruction (1) Developing strategies to promote health/change behavior: Needs instruction (1) DSMT/ Diabetes MNT intervention: Nutrition: GDM nutrition: Educated on rationale and guidelines of nutritional management of GDM. Emphasis on need for carbohydrate control/consistency with structured meal schedule. Importance of also meeting nutritional needs of reinforced. Stressed importance of avoiding sugar sweetened beverages, fruit juices. Encouraged bedtime snack 8-10 hours before fasting test the next day. Individualized meal pattern provided = Breakfast: 30-45 grams carbohydrate Snack: 0-15 grams carbohydrate Lunch: 30-45 grams carbohydrate Snack: 0-15 grams carbohydrate Dinner: 30-45 grams carbohydrate Bedtime snack: 15-30 grams carbohydrate Participant Selected Behavioral Objective: Nutrition: To improve blood glucose control I will at least 3 times before next visit, follow a meal plan of 30-45 grams of carbohydrate at each meal, 0-15 grams at morning and afternoon snack and 15-30 grams at evening snack. Recommended Medication Changes: No changes. Education materials given to participant/caregiver and reviewed during today's visit: Ready, Set, Start Counting! Carbohydrate Counting - a Tool to Help Manage Your Blood Glucose Possible Future Topics: Content areas that were not assessed in first visit: All content areas have been assessed. Time Spent With Patient: Time in: 09 Time out: 951 Billing: MNT: 45 Minutes (38-52) Plan for Return: Follow up visit not necessary at this time. Participant provided with contact information for Diabetes Care and Software Educator. All [facility] providers within the system are able to see [place] [employer] education and outcomes within the participant's electronic medical record. LILY Reyez [facility] NUTRITION SERVICES [facility] Diabetes Care and Software Educator documented in this encounter Plan of Treatment Upcoming Encounters Date Type Department Care Team (Late st Contact Info) Description 09/27/2023 10:45 AM EDT Office Visit [facility] M[facility], [place] [address] [place] [address] Cam Sim DO [address] [place] [address] 09/27/2023 10:45 AM EDT [facility] [place] [address] [place] [address] 09/28/2023 2:30 PM EDT Office Visit Gynecology/Obstetrics [facility] [address] [facility] [place] [address] Claire Caballero PA-C [address] [place] [address] [place] [address] 10/09/2023 1:30 PM EDT Laboratory Laboratory, [facility] [place] [phone] [facility] [address] [facility] [place] [address] 10/09/2023 2:15 PM EDT Office Visit Gynecology/Obstetrics [facility] [address] [facility] [place] [address] Indira Cleveland CRNP [address] [place] [address] 10/10/2023 9:30 AM EDT Pharmacy Pharmacy, [place] [address] [place] [address] [place] [address] [place] [address] 10/16/2023 3:00 PM EDT Office Visit Gynecology/Obstetrics [facility] [address] [place] [address] Praveen Carranza MD [address] [place] [address] 10/24/2023 3:00 PM EDT Office Visit Gynecology/Obstetrics [facility] [address] [place] [address] Praveen Carranza MD [address] [place] [address] 10/29/2023 8:45 AM EDT Office Visit Gynecology/Obstetrics [facility] [address] [place] [address] Praveen Carranza MD [address] [place] [address] 05/12/2024 10:00 AM EST Office Visit Family Practice [facility] [address] [place] [address] Malinda Owens CRNP [address] [place] [address] Scheduled Referrals Name Type Priority Associated Diagnoses Orde r Schedule DIABETES MANAGEMENT EDUCATION (ADA) REFERRAL Referral Within 10 days (routine) Diet controlled gestational diabetes mellitus (GDM) in third trimester Ordered: 09/20/2023 Health Maintenance Due Date Last Done Comments [...] gestational diabetes mellitus (GDM) in third trimester [O24.410]- Primary documented in this encounter Care Teams Bilingual Teacher Relationship Specialty Start Date End Date Malinda Owens CRNP [address] [place] [address] PCP - General Nurse Practitioner 09/20/23 documented as of this encounter
--- OUTSIDE RECORDS SUMMARY | 2023-10-30 18:02 | External Medical Summary | Summary of Care ---
Author Name Unknown Organization [facility] Address [address] [facility] [address] Phone [phone] Care Team Providers Care Crt Name Role Phone Unavailable Primary Care Provider Unavailabl e Reason for Visit * Reason Comments Outpatient Testing Encounter Details Date Type Department Care Team (Late st Contact Info) Description 09/19/2023 1:00 PM EDT Laboratory Laboratory, [facility] 132 [facility] [place] [phone] [facility] 132 [facility] [place] [address] Encounter for supervision of other normal , unspecified trimester; Excessive growth affecting management of , antepartum, single or unspecified fetus Allergies No known active allergiesdocumented as of this encounter (statuses as of 09/19/2023) Medications Medication Sig Dispensed Refills Start Date [...] the morning. 30 Tablet 5 08/14/2023 Active documented as of this encounter (statuses as of 09/19/2023) Active Problems Problem Noted Date Diagnosed Date Excessive growth affec ting management of mother, antepartum 09/14/2023 Iron deficiency anemia 08/21/2023 Antepartum anemia complicating 024 Overview: Needs IV iron infusons Encounter for supervision of other normal , unspecified trimester 04/03/2023 Class 1 obesity due to exces s calories without serious comorbidity with body mass index (BMI) of 33.0 to 33.9 in adult 04/03/2023 Overview: Early glucola Estimated Date of Delivery Comme nts Yes 11/02/2023 Based on Ultraso und documented as of this encounter (statuses as of 09/19/2023) Resolved Problems Problem Noted Date Diagnosed Date Resolved Date Abnormal glucose tolerance i n mother complicating 04/19/2023 08/31/2023 Overview: Failed early glucola. 3hr GTT ordered documented as of this encounter (statuses as of 09/19/2023) Immunizations Name Administration Dates Next Due DTP [...] money to get more. Never true 01/19/2023 [place] Depression Scale Answer Date Recorded [place] Depression Scale Total 9 04/03/2023 The thought [...] 09/28/2023 2:30 PM EDT Office Visit Gynecology/Obstetrics [facility] [address] [facility] [place] [address] Claire Caballero PA-C [address] [place] [address] [place] [phone] 10/09/2023 1:30 PM EDT Laboratory Laboratory, [facility] [address] [place] [address] Khris Topete [address] [place] [address] 10/09/2023 2:15 PM EDT Office Visit Gynecology/Obstetrics [facility] [address] [place] [address] Indira Cleveland CRNP [address] [place] [address] 10/10/2023 9:30 AM EDT Pharmacy Pharmacy, [address] [address] 10/16/2023 3:00 PM EDT Office Visit Gynecology/Obstetrics [facility] [address] [place] [address] Praveen Carranza MD [address] [place] [address] 10/24/2023 3:00 PM EDT Office Visit Gynecology/Obstetrics [facility] [address] [place] [address] Praveen Carranza MD [address] [place] [address] 10/29/2023 8:45 AM EDT Office Visit Gynecology/Obstetrics [facility] [address] [place] [address] Praveen Carranza MD [address] [place] [address] 05/12/2024 10:00 AM EST Office Visit Family Practice [facility] [address] [place] [address] Malinda Owens CRNP [address] [place] [address] Pending Results Name Type Priority Associated Diagnoses Date /Time GESTATIONAL GLUCOSE TOLERANCE, 3 HOUR Lab Routine Encounter for supervision of other normal , unspecified trimester Excessive growth affecting management of , antepartum, single or unspecified fetus 09/19/2023 12:54 PM EDT 100-G GESTATIONAL GLUCOSE, 3 HOUR Lab Routine Encounter for supervision of other normal , unspecified trimester Excessive growth affecting management of , antepartum, single or unspecified fetus 09/19/2023 3:51 PM EDT Health Maintenance Due Date Last [...] Not on filedocumented as of this encounter Procedures Procedure Name Priority Date/Time Associated Diagnosis Comments 100-G GESTATIONAL GLUCOSE, 2 HOUR Routine 09/19/2023 2:54 PM EDT Encounter for supervision of other normal , unspecified trimester Excessive growth affecting management of , antepartum, single or unspecified fetus 100-G GESTATIONAL GLUCOSE, 1 HOUR Routine 09/19/2023 1:52 PM EDT Encounter for supervision of other normal , unspecified trimester Excessive growth affecting management of , antepartum, single or unspecified fetus 100-G GESTATIONAL GLUCOSE, FASTING Routine 09/19/2023 12:54 PM EDT Encounter for supervision of other normal , unspecified trimester Excessive growth affecting management of , antepartum, single or unspecified fetus documented in this encounter Results * (ABNORMAL) 100-G GESTATIONAL GLUCOSE, 2 HOUR (09/19/2023 2:54 PM EDT) 100-g Gestational Glucose, 2 Hour 258(H) 70 - 154 mg/dL 09/19/2023 3:45 PM EDT LABORATORY [place] 57-10 Blood Venous blood specimen / Unknown Venipuncture / Unknown 09/19/2023 2:54 PM EDT 09/19/2023 2:54 PM EDT Indira DUONG LAB BLOOD ORDERABLES Performing Organization Address City/[facility]/ZIP Co de Phone Number [facility] [place] [phone] [facility] [phone] * (ABNORMAL) 100-G GESTATIONAL GLUCOSE, 1 HOUR (09/19/2023 1:52 PM EDT) 100-g Gestational Glucose, 1 Hour 216(H) 70 - 179 mg/dL 09/19/2023 2:40 PM EDT LAB[facility]ORY [place] 57-10 Blood Venous blood specimen / Unknown Venipuncture / Unknown 09/19/2023 1:52 PM EDT 09/19/2023 1:52 PM EDT Indira DUONG LAB BLOOD ORDERABLES LAB[facility]ATORY [place] 57-[address] [place] [address] * 100-G GESTATIONAL GLUCOSE, FASTING (09/19/2023 12:54 PM EDT) 100-g Gestational Glucose, Fasting 74 70 - 94 mg/dL 09/19/2023 1:28 PM EDT LABORATORY [place] 57-10 Blood Venous blood specimen / Unknown Venipuncture / Unknown 09/19/2023 12:54 PM EDT 09/19/2023 12:54 PM EDT Narrative LABORATORY [place] 57-10 - 09/19/2023 1:28 PM EDT Based on ACOG guideline, gestational diabetes mellitus is diagnosed when any of the following is met: Fasting is greater than or equal to 95 mg/dL 1 hour is greater than or equal to 180 mg/dL 2 hour is greater than or equal to 155 mg/dL 3 hour is greater than or equal to 140 mg/dL Indira DUONG LAB BLOOD ORDERABLES LABORATORY [place] 57-[address] [place] [address] documented in this encounter Visit Diagnoses Diagnosis Encounter for supervision of other normal , unspecified trimester Excessive growth affecting management of , antepartum, single or unspecified fetus documented in this encounter
--- OUTSIDE RECORDS SUMMARY | 2023-10-30 18:02 | External Medical Summary | Summary of Care ---
Author Name Unknown Organization [facility] Address [address] [facility] [place] [address] Phone [phone] Care Team Providers Care Olericulture Professor Name Role Phone Unavailable Primary Care Provider Unavailabl e Reason for Referral * Evaluate & Treat - Unlimited Visits (Within 10 days (routine)) - Pending Review Specialty Diagnoses / Procedures Referred By Bennie gilliland Referred To Contact Line Up Examiner / Nutrition Services Diagnoses Diet controlled gestational diabetes mellitus (GDM) in third trimester Indira Cleveland CRNP [address] [place] [address] Referral ID Status Reason Start Date Expiration Date Visits Requested Visits Authorized [id number] Pending Review Specialty Services Required 09/20/2023 999 999 Question Answer Is the patient ? Yes Referral Priority Within 10 days (routine) Where should this appointment be scheduled? Digna Comments This referral is for Diabetes Self-Management Training (DSMT) by a recognized [place] Diabetes Association (ADA) nurse informatics educator: Nurse (RN), Registered Dietitian Residential Collections (RDN), and/or Diabetes Medical Nutrition Therapy (MNT) Management (dietitian only). Diabetes educators are responsible for assessing the participant's diabetes education needs, and providing diabetes self-management training in accordance with the standards set by the ADA for DSMT. Any adjustment in diabetes therapy will be made within the guidelines of standards of practice and isinger approved policies and procedures. I understand that the nurse informatics educator will keep me informed. Areas of Education: Pathophysiology Nutrition Physical Activity Medications Monitoring Acute Complications Chronic Complications Psychosocial Management Promote Health/Behavior Change Participant will be offered 1:1 education training if there is a lack of classes available within 2 months. Providers can also order 1:1 training if indicated for participant for the following reasons: 1:1 Training for Insulin Initiation Participant Inappropriate for Class Setting By my electronic signature, I understand that my patient will be offered the comprehensive ADA content area above unless deemed not appropriate of I specify otherwise here: * Evaluate & Treat - Unlimited Visits (Within 10 days (routine)) - Pending Review Specialty Diagnoses / Procedures Referred By Bennie gilliland Referred To Contact Obstetrics/Gynecology / Maternal Medicine Diagnoses Diet controlled gestational diabetes mellitus (GDM) in third trimester Indira Cleveland CRNP [address] [place] [address] Referral ID Status Reason Start Date Expiration Date Visits Requested Visits Authorized [id number] Pending Review Specialty Services Required 09/20/2023 999 999 Question Answer Referral Priority Within 10 days (routine) Has the patient had a viability scan? Yes Date performed 03/20/2023 Location performed Radiology Reason for referral Diabetes Diabetes type Gestational Where should this appointment be scheduled? [facility] Comments /Para: LMP: No LMP recorded. Patient is . SERAFIN: 11/02/2023, by Ultrasound Pre-Gravid BMI: 33.51 Reason for Visit * Reason Onset Date Comments Abnormal Test Results 09/20/2023 Encounter Details Date Type Department Care Team (Late st Contact Info) Description 09/20/2023 Telephone Gynecology/Obstetrics Shanna Topete [address] [place] [address] nIdira Cleveland CRNP [address] [place] [address] Abnormal Test Results Allergies No known active allergiesdocumented as of this encounter (statuses as of 09/20/2023) Medications Medication Sig Dispensed Refills Start Date [...] the morning. 30 Tablet 5 08/14/2023 Active [employer] Verio Flex System w/Device KitIndications:Diet controlled gestational diabetes mellitus (GDM) in third trimester Use to test blood sugars 4 times daily (fasting, 1 hour after breakfast, lunch, and dinner) 1 Kit 0 09/20/2023 Active [employer] In Vitro Strip (Glucose Blood)Indications:Diet controlled gestational diabetes mellitus (GDM) in third trimester Use to test blood sugars 4 times daily (fasting, 1 hour after breakfast, lunch, and dinner) 125 Strip 6 09/20/2023 Active [employer] Lancets 30GIndications:Diet controlled gestational diabetes mellitus (GDM) in third trimester Use to test blood sugars 4 times daily (fasting, 1 hour after breakfast, lunch, and dinner) 200 Each 6 09/20/2023 Active documented as of this encounter (statuses as of 09/20/2023) Active Problems Problem Noted Date Diagnosed Date Diet controlled gestational diabetes mellitus (GDM) in third trimester 09/20/2023 Overview: Repeated 3hr GTT at 33w d/t LGA, failed. MFM referral placed for ADAPT. Excessive growth affec ting management of mother, [...] as of this encounter (statuses as of 09/20/2023) Resolved Problems Problem Noted Date Diagnosed Date Resolved Date Abnormal glucose tolerance i n mother complicating 04/19/2023 08/31/2023 Overview: Failed early glucola. 3hr GTT ordered documented as of this encounter (statuses as of 09/20/2023) Immunizations Name Administration Dates Next Due DTP [...] money to get more. Never true 01/19/2023 [place] Depression Scale Answer Date Recorded [place] Depression Scale Total 9 04/03/2023 The thought [...] Telephone Encounter - Ronda Turner LPN - 09/20/2023 10:04 AM EDT Patient aware, reviewed testing instructions. Will send myg also. Everette Augustine. Richarday with [facility] referral. * Telephone Encounter - Ronda Turner LPN - 09/20/2023 9:23 AM EDT left message for patient to call office * Telephone Encounter - Indira Cleveland CRNP - 09/20/2023 9:05 AM EDT Please notify pt that she failed her 3hr GTT. She is now considered GDM. Recommendation is referralto MFM so she can get enrolled in ADAPT program. Will send glucometer and supplies to pharmacy as well. She can check the One Touch website to learn how to use it if she'd like. Review goal parameters with pt. Please confirm pharmacy and confirm she's ok with MFM. documented in this encounter Plan of Treatment Upcoming Encounters Date Type Department Care Team (Late st Contact Info) Description 09/28/2023 2:30 PM EDT Office Visit Gynecology[facility]st[facility] [address] [facility] [address] Claire Caballero PA-C [address] [place] [address] 10/09/2023 1:30 PM EDT Laboratory Laboratory, [facility] [address] [facility] [place] [phone] TopeteKhris bermudez [facility] [address] [place] [address] 10/09/2023 2:15 PM EDT [facility] [address] [facility] [place] [address] Indira Cleveland CRNP [address] [facility] [address] 10/10/2023 9:30 AM EDT Pharmacy Pharmacy, [id number] [id number] 10/16/2023 3:00 PM EDT Office Visit Gynecology/Obstetrics [facility] [address] [place] [address] Praveen Carranza MD [address] [place] [address] 10/24/2023 3:00 PM EDT Office Visit Gynecology/Obstetrics [facility] [address] [place] [address] Praveen Carranza MD [address] [place] [address] 10/29/2023 8:45 AM EDT Office Visit Gynecology/Obstetrics [facility] [address] [place] [address] Praveen Carranza MD [address] [place] [address] 05/12/2024 10:00 AM EST Office Visit Family Practice [facility] [address] [place] [address] Malinda Owens CRNP [address] [place] [address] Scheduled Orders Name Type Priority Associated Diagnoses Orde r Schedule MFM US MATERNAL 1ST FETUS Medical Imaging Routine Diet controlled gestational diabetes mellitus (GDM) in third trimester Other specified related conditions, third trimester Expected: 09/20/2023, Expires: 10/19/2024 Scheduled Referrals Name Type Priority Associated Diagnoses Orde r Schedule MATERNAL MEDICINE REFERRAL OP Referral Within 10 days (routine) Diet controlled gestational diabetes mellitus (GDM) in third trimester Ordered: 09/20/2023 DIABETES MANAGEMENT EDUCATION (ADA) REFERRAL Referral Within [...] diabetes mellitus (GDM) in third trimester- Primary Other specified related conditions, third trimester documented in this encounter
--- OUTSIDE RECORDS SUMMARY | 2023-10-30 18:02 | External Medical Summary ---
Author Name Unknown Address Unknown Organization K0G:[facility] [place] [address] [place] [id number] Laboratory Report Ordering Provider Test Date Status KELSI LR 09/19/2023 15:51:24 Final Observation Date Value Abnormality Reference (Units ) Status Glucose [Mass/volume] in Serum or Plasma --3 hours post dose glucose 09/19/2023 15:51:24 139 70-139 (mg/dL) Final Performing Location [facility] [place] [address] [place] [address]
--- OUTSIDE RECORDS SUMMARY | 2023-10-30 18:02 | External Medical Summary ---
Author Name Unknown Address Unknown Organization [facility] [address] [facility] [address] [place] [id number] Laboratory Report Ordering Provider Test Date Status KELSI LR 09/19/2023 14:54:43 Final Observation Date Value Abnormality Reference (Units ) Status Glucose, 2-hr post glucose challenge 09/19/2023 14:54:43 258 Above high normal 70-154 (mg/dL) Final Performing Location [facility] [place] [address] [place] [address]
--- OUTSIDE RECORDS SUMMARY | 2023-10-30 18:02 | External Medical Summary | Summary of Care ---
Author Name Unknown Organization [facility] Address [address] [place] [address] Phone [phone] Care Team Providers Care Health Information Internship Name Role Phone Malinda Owens Primary Care Provider [phone] Reason for Visit * Reason Onset Date Comments Home Monitoring Orders Only 09/21/2023 Encounter Details Date Type Department Care Team ([facility] st Contact Info) Description 09/21/2023 Home Monitoring Infrastructure Director Obstetrics Maternal Medicine, [place] [address] [facility] [address] [place] [address] Laith Lino CRNP [address] [facility] [address] [place] [address] Diet controlled gestational diabetes mellitus (GDM) in third trimester* Allergies No known active allergiesdocumented as of this encounter (statuses as of 09/21/2023) Medications Medication Sig Dispensed Refills Start Date [...] and dinner) 1 Kit 0 09/20/2023 Active [employer] In Vitro Strip (Glucose Blood)Indications:Diet controlled gestational diabetes mellitus (GDM) in third trimester Use to test blood sugars 4 times daily (fasting, 1 hour after breakfast, lunch, and dinner) 125 Strip 6 09/20/2023 Active [employer] Lancets 30GIndications:Diet controlled gestational diabetes mellitus (GDM) in third trimester Use to test blood sugars 4 times daily (fasting, 1 hour after breakfast, lunch, and dinner) 200 Each 6 09/20/2023 Active documented as of this encounter (statuses as of 09/21/2023) Active Problems Problem Noted Date Diagnosed Date [...] complete. Enrolled in Current Health. Plans to meat pickler meter from pharmacy today. Instructions provided to [...] Recommend nutrition consult with RDN (Registered Dietitian Commissioning Manager). Lifestyle changes are also indicated including optimizing [...] and folate levels and referral to a solutions manager. If hemoglobin levels are below 8 g/dl, we recommend Maternal Medicine ultrasound for growth every 4 weeks after 24 weeks. Consider a blood transfusion if hemoglobin levels fall below 6 g/dL. ([employer] Bulletin Number 95, December,). Consider [...] as of this encounter (statuses as of 09/21/2023) Resolved Problems Problem Noted Date Diagnosed Date Resolved Date Abnormal glucose tolerance i n mother complicating 04/19/2023 08/31/2023 Overview: Failed early glucola. 3hr GTT ordered documented as of this encounter (statuses as of 09/21/2023) Immunizations Name Administration Dates Next Due DTP [...] money to get more. Never true 01/19/2023 [place] Depression Scale Answer Date Recorded [place] Depression Scale Total 9 04/03/2023 The thought [...] as of this encounter Progress Notes * Teri Rod, Community Health Marketing Performance Analyst - 09/21/2023 3:04 PM EDT Patient has been successfully enrolled to the [id number] Diabetes Management in program. Standard alarm settings have been set as follows: Singular glucose level > 200 Singular glucose level < 60 Patient has been advised to take blood sugar four times a day (fasting upon waking, and one hour after each meal). Patient has been oriented to remote patient monitoring, assisted with initial device set-up, and provided with instruction and education regarding the program. Patient understands that this monitoring should not be used as a replacement for emergency and/or urgent care. If patient experiences any urgent symptoms, they are aware to call office/injection molding operator provider for additional instructions. In emergency situations, they will report directly to the ED for further evaluation. If you would like to customize the alert parameters and/or instructions for this patient, please let me know and we can have them changed. documented in this encounter Plan of Treatment Upcoming Encounters Date Type Department Care Team (Late st Contact Info) Description 09/24/2023 9:00 AM EDT Telemedicine Nutrition Services, [facility] [address] [place] [address] Anai Mustafa, RDN [address] [place] [address] 09/27/2023 10:45 AM EDT Office Visit Infrastructure Director Obstetrics Maternal Medicine, [place] [address] [place] [address] Cam Sim, [address] [place] [address] 09/27/2023 10:45 AM EDT [facility] [address] [place] [address] 09/28/2023 2:30 PM EDT Office Visit Gynecology/Obstetrics [facility] [address] [place] [address] Claire Caballero PA-C [address] [place] [address] [place] [address] 10/09/2023 1:30 PM EDT Laboratory Laboratory, [facility] [address] [place] [address] [facility] [address] [place] [address] 10/09/2023 2:15 PM EDT Office Visit Gynecology/Obstetrics [facility] [address] [place] [address] Indira Cleveland CRNP [address] [place] [address] 10/10/2023 9:30 AM EDT Pharmacy Pharmacy, [place] [address] [place] [address] [place] [address] [place] [address] 10/16/2023 3:00 PM EDT Office Visit Gynecology/Obstetrics [facility] [address] [place] [address] Praveen Carranza MD [address] [place] [address] 10/24/2023 3:00 PM EDT Office Visit Gynecology/Obstetrics [facility] [address] [place] [address] Praveen Carranza MD [address] [place] [address] 10/29/2023 8:45 AM EDT Office Visit Gynecology/Obstetrics [facility] [address] [place] [address] Praveen Carranza MD [address] [place] [address] 05/12/2024 10:00 AM EST Office Visit Family Practice [facility] [address] [place] [address] Malinda Owens CRNP [address] [place] [address] Health Maintenance Due Date Last Done Comments [...] diabetes mellitus (GDM) in third trimester- Primary documented in this encounter Care Teams Health Information Internship Relationship Specialty Start Date End Date Malinda Owens CRNP [address] [place] [address] PCP - General Nurse Practitioner 09/20/23 documented as of this encounter
--- OUTSIDE RECORDS SUMMARY | 2023-10-30 18:02 | External Medical Summary | Summary of Care ---
Author Name Unknown Organization [facility] Address [address] [facility] [place] [address] Phone [phone] Care Team Providers Care Extension Professor Name Role Phone Unavailable Primary Care Provider Unavailabl e Reason for Referral * Evaluate & Treat - Unlimited Visits (Within 10 days (routine)) - Pending Review Specialty Diagnoses / Procedures Referred By Bennie gilliland Referred To Contact Events Manager / Nutrition Services Diagnoses Diet controlled gestational diabetes mellitus (GDM) in third trimester Indira Cleveland CRNP [address] [place] [address] Referral ID Status Reason Start Date Expiration Date Visits Requested Visits Authorized [id number] Pending Review Specialty Services Required 09/20/2023 999 999 Question Answer Is the patient ? Yes Referral Priority Within 10 days (routine) Where should this appointment be scheduled? Digna Comments This referral is for Diabetes Self-Management Training (DSMT) by a recognized [place] Diabetes Association (ADA) telehealth nurse educator: Nurse (RN), Registered Dietitian Capacity Planning Analyst (RDN), and/or Diabetes Medical Nutrition Therapy (MNT) Management (dietitian only). Diabetes educators are responsible for assessing the participant's diabetes education needs, and providing diabetes self-management training in accordance with the standards set by the ADA for DSMT. Any adjustment in diabetes therapy will be made within the guidelines of standards of practice and isinger approved policies and procedures. I understand that the telehealth nurse educator will keep me informed. Areas of [...] (GDM) in third trimester Indira Cleveland CRNP [address] [place] [address] Referral ID Status Reason Start Date Expiration Date Visits Requested Visits Authorized [id number] Pending Review Specialty Services Required 09/20/2023 999 [...] Gynecology/Obstetrics Shanna Topete [address] [place] [address] Indira Cleveland CRNP [address] [place] [address] Abnormal Test Results Allergies No known active [...] the morning. 30 Tablet 5 08/14/2023 Active [employer] Verio Flex System w/Device KitIndications:Diet controlled gestational diabetes mellitus (GDM) in third trimester Use to test blood sugars 4 times daily (fasting, 1 hour after breakfast, lunch, and dinner) 1 Kit 0 09/20/2023 Active [employer] In Vitro Strip (Glucose Blood)Indications:Diet controlled gestational diabetes mellitus (GDM) in third trimester Use to test blood sugars 4 times daily (fasting, 1 hour after breakfast, lunch, and dinner) 125 Strip 6 09/20/2023 Active [employer]or[employer] Lancets 30GIndications:Diet controlled gestational diabetes mellitus (GDM) [...] money to get more. Never true 01/19/2023 [place] Depression Scale Answer Date Recorded [place] Depression Scale Total 9 04/03/2023 The thought [...] send myg also. Everette Augustine. Richarday with [facility] referral. * Telephone Encounter - Ronda [...] 09/28/2023 2:30 PM EDT Office Visit Gynecology/Obstetrics [facility] [address] [facility] [address] Claire Caballero PA-C [address] [place] [address] 10/09/2023 1:30 PM EDT Laboratory Laboratory, [facility] [address] [facility] [place] [address] TopeteKhris bermudez [facility] [address] [place] [address] 10/09/2023 2:15 PM EDT [facility] [address] [facility] [place] [address] Indira Cleveland CRNP [address] [facility] [address] 10/10/2023 9:30 AM EDT Pharmacy Pharmacy, [id number] [id number] 10/16/2023 3:00 PM EDT Office Visit Gynecology/Obstetrics [facility] [address] [place] [address] Praveen Carranza MD [address] [place] [address] 10/24/2023 3:00 PM EDT Office Visit Gynecology/Obstetrics [facility] [address] [place] [address] Praveen Carranza MD [address] [place] [address] 10/29/2023 8:45 AM EDT Office Visit Gynecology/Obstetrics [facility] [address] [place] [address] Praveen Carranza MD [address] [place] [address] 05/12/2024 10:00 AM EST Office Visit Family [facility] [address] [place] [address] Malinda Owens CRNP [address] [place] [address] Scheduled Orders Name Type Priority Associated Diagnoses [...]
--- OUTSIDE RECORDS SUMMARY | 2023-10-30 18:02 | External Medical Summary | Summary of Care ---
Author Name Unknown Organization [facility] Address [address] [place] [address] Phone [phone] Care Team Providers Care Store Administrative Assistant Name Role Phone Malinda Owens Primary Care Provider [phone] Reason for Referral * Evaluate & Treat - Unlimited Visits (Within 3 days (urgent)) - Pending Review Specialty Diagnoses / Procedures Referred By Bennie gilliland Referred To Contact Material Requirements Planning Manager Diagnoses Diet controlled gestational diabetes mellitus (GDM) in third trimester Laith Lino CRNP [address] [address] Referral ID Status Reason Start Date Expiration Date Visits Requested Visits Authorized [id number] Pending Review Specialty Services Required 09/21/2023 1 1 Question Answer Referral Priority Within 3 days (urgent) Where should this appointment be scheduled? [facility] Program Type Chronic Disease Management Chronic Disease Management Diabetes in Alarm Settings Standard per protocol Comments Has OneTouch Verio meter Reason for Visit * Reason Comments Consultation High risk * Evaluate & Treat - Unlimited Visits (Within 10 days (routine)) - Pending Review Specialty Diagnoses / Procedures Referred By Contjeffery gilliland Referred To Contact Obstetrics/Gynecology / Maternal Medicine Diagnoses Diet controlled gestational diabetes mellitus (GDM) in third trimester Indira Cleveland CRNP [address] [place] [address] Referral ID Status Reason Start Date Expiration Date Visits Requested Visits Authorized [id number] Pending Review Specialty Services Required 09/20/[phone] Encounter Details Date Type Department Care Team (Late st Contact Info) Description 09/21/2023 1:45 PM EDT Telemedicine Facility Specialist Obstetrics Maternal Medicine, [place] [address] [facility] [address] [place] [address] Laith Lino CRNP [address] [facility] [address] [place] [address] Diet controlled gestational diabetes mellitus (GDM) in third trimester*; Antepartum anemia complicating ; Supervision of high risk , antepartum, third trimester; 34 weeks gestation of Allergies No known active allergiesdocumented as of [...] the morning. 30 Tablet 5 08/14/2023 Active PCD PartnersTouch Verio Flex System w/Device KitIndications:Diet controlled gestational diabetes mellitus (GDM) in third trimester Use to test blood sugars 4 times daily (fasting, 1 hour after breakfast, lunch, and dinner) 1 Kit 0 09/20/2023 Active PCD PartnersTouch Verio In Vitro Strip (Glucose Blood)Indications:Diet controlled [...] complete. Enrolled in Current Health. Plans to poultry picking machine tender meter from pharmacy today. Instructions provided to [...] Recommend nutrition consult with RDN (Registered Dietitian Curbstone Setter). Lifestyle changes are also indicated including optimizing [...] and folate levels and referral to a poultry trimmer. If hemoglobin levels are below 8 g/dl, we recommend Maternal Medicine ultrasound for growth every 4 weeks after 24 weeks. Consider a blood transfusion if hemoglobin levels fall below 6 g/dL. ([employer] Bulletin Number 95, December,). [...] money to get more. Never true 01/19/2023 Monte[place] Depression Scale Answer Date Recorded [place] Depression Scale Total 9 04/03/2023 The thought [...] as of this encounter Progress Notes * Laith Lino CRNP - 09/21/2023 1:52 PM EDT MATERNAL MEDICINE CONSULT Yuli Gutierrez 09/21/23 REFERRING PROVIDER: AD Miguel Patient location: HOME. I was in a hospital or clinic location. After connecting through televideo,patient was verified with two unique identifiers. 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 Methods to assure confidentiality were taken. Patient acknowledged consent and understanding of pr ivacy and security of the Telemedicine visit. The patient agreed to participate. Yuli Gutierrez is a 28 year old with intrauterine at 34w0d (Estimated Date of Delivery: 11/02/23 by 7w4d ultrasound) who presents today for an MFM consult due to gestational diabetesand anemia. HPI/CURRENT : pre- BMI=class 1 obesity (103 kg (227 lb); 5' 9"); FOB #1; pregnancycomplicated by above. Genetic testing: Low Risk Cell Free DNA [facility] (from 03/23/23 to present) Problem Noted Resolved Diet controlled gestational diabetes mellitus (GDM) in third trimester Overview Addendum 09/21/2023 1:49 PM by Laith Lino CRNP 09/20/23 Repeated 3hr GTT at 33w d/t LGA, failed. MFM referral placed for ADAPT. Diagnosed at 33 weeks Nutrition consult ordered Lab Results Component Value Date/Time 50-G GESTATIONAL [...] complete. Enrolled in Current Health. Plans to poultry picking machine tender meter from pharmacy today. Instructions provided to report blood sugars each week for MFM review Excessive growth affecting management of mother, antepartum Antepartum anemia complicating Overview Addendum 09/20/2023 11:15 AM by Laith Lino CRNP Receiving IV iron infusions Anemia Labs Lab [...] 07:56 AM MCV 103.2 08/13/2023 07:56 AM I have reviewed this patient's previous OB ultrasound reports, pertinent labwork and testing provided by her referring OB provider. Current Outpatient Medications Medication Sig Dispense Refill Doxylamine Succinate (Sleep) 25 MG Oral Tablet (Unisom SleepTabs) Take 1 Tablet by mouth at bedtimeas needed. S[employer] Delica Lancets 30G Use to test blood sugars 4 times daily (fasting, 1 hour after breakfast, lunch, and dinner) 200 Each 6 [employer]Box Verio Flex System w/Device Kit Use to test blood sugars 4 times daily (fasting, 1 hour after breakfast, lunch, and dinner) 1 Kit 0 S[employer] Verio In Vitro Strip (Glucose Blood) Use to test blood sugars 4 times daily (fasting, 1 hour after breakfast, lunch, and dinner) 125 Strip 6 19 29-1 MG Oral Tablet Chewable Take by mouth. Vitamin B-12 1000 MCG Oral Tablet (Cyanocobalamin) Take 1 Tablet by mouth in the morning. 30 Tablet5 No current facility-administered medications for this visit. Review of patient's allergies indicates: No Known Allergies OB History Para Term AB Living 2 0 0 0 1 0 SAB IAB Ectopic Multiple Live Births 0 0 0 0 0 # Outcome Date GA Lbr Joe/2nd Weight Sex Delivery Anes PTL Lv 2 Current 1 AB 01/20/23 SPONTANEOUS No past medical history on file. Past Surgical History: Procedure Laterality Date DENTAL SURGERY PROCEDURE NEC Age 12 Family History Problem Relation Age of Onset No Known Problems Mother Diabetes Father Colon cancer Grandmother (Maternal) Other (old age) Grandfather (Maternal) Heart attack Grandfather (Paternal) Social History Tobacco Use Smoking status: Never Smokeless tobacco: Never Substance Use Topics Alcohol use: Not Currently Drug use: No REVIEW OF SYSTEMS: headaches: no nausea/vomiting: denies reports movement: yes abdominal pain/tenderness/cramping/contractions: no vaginal bleeding: no vaginal leaking of fluid: no all other systems negative PHYSICAL EXAM: There were no vitals taken for this visit. General: Well appearing Psych: Alert to time, place, and person and Pleasant DISCUSSION/RECOMMENDATIONS: Problem List Items Addressed This Visit [facility] Antepartum anemia complicating CONSIDERATIONS: Severe maternal anemia (hemoglobin levels below [...] blood conservation program after oral therapy has failed)as indicated to keep hemoglobin level above 11 g/dl during . Oral iron should be taken with orange juice. If anemia studies do not reflect iron deficiency anemia we recommend checking TSH, B12 and folate levels and referral to a poultry trimmer. If hemoglobin levels are below 8 g/dl, we recommend Maternal Medicine ultrasound for growth every 4 weeks after 24 weeks. Consider a blood transfusion if hemoglobin levels fall below 6 g/dL. ([employer] Practice Bulletin Number 95, December,). Consider Venofer transfusions if patient labs supportive of iron deficiency anemia with dosing of 300 mg IV weekly x 3 weeks Diet controlled gestational diabetes mellitus (GDM) in third trimester - Primary CONSIDERATIONS: Reviewed etiology and risks associated with gestational diabetes mellitus (GDM), including risks topregnancy, fetus, and maternal progression to Type 2 [...] Recommend nutrition consult with RDN (Registered Dietitian Curbstone Setter). Lifestyle changes are also indicated including optimizing gestational weight gain and physical activity of 30 minutes per day, if not otherwise contraindicated in . Insulin is preferred if medications are indicated to optimize euglycemia. Metformin (preferred overglyburide) may also be used in some circumstances. [...] with 75-gram glucose load 6-8 weeks . Relevant Orders REMOTE PATIENT MONITORING REFERRAL SUPPORTIVE CARE Antepartum anemia complicating CONSIDERATIONS: Severe maternal anemia (hemoglobin levels below [...] blood conservation program after oral therapy has failed)as indicated to keep hemoglobin level above 11 g/dl during . Oral iron should be taken with orange juice. If anemia studies do not reflect iron deficiency anemia we recommend checking TSH, B12 and folate levels and referral to a poultry trimmer. If hemoglobin levels are below 8 g/dl, we recommend Maternal Medicine ultrasound for growth every 4 weeks after 24 weeks. Consider a blood transfusion if hemoglobin levels fall below 6 g/dL. ([employer] Practice Bulletin Number 95, December,). Consider Venofer transfusions if patient labs supportive of iron deficiency anemia with dosing of 300 mg IV weekly x 3 weeks Other Visit Diagnoses Supervision of high risk , antepartum, third trimester 34 weeks gestation of Follow up ultrasound with Maternal Medicine is scheduled on 09/27/[address] Ross for anatomyscan secondary to gestational diabetes and anemia. Patient is aware of upcoming MFM appointment. AD Astudillo 09/21/2023 2:19 PM documented in this encounter Miscellaneous Notes * Assessment & Plan Note - Laith Lino CRNP - 09/21/2023 1:47 PM EDT Associated Problem(s): Diet controlled gestational diabetes mellitus (GDM) in third trimester CONSIDERATIONS: Reviewed etiology and risks associated with gestational diabetes mellitus (GDM), including risks topregnancy, fetus, and maternal progression to Type 2 [...] Recommend nutrition consult with RDN (Registered Dietitian Curbstone Setter). Lifestyle changes are also indicated including optimizing gestational weight gain and physical activity of 30 minutes per day, if not otherwise contraindicated in . Insulin is preferred if medications are indicated to optimize euglycemia. Metformin (preferred overglyburide) may also be used in some circumstances. [...] with 75-gram glucose load 6-8 weeks . * Assessment & Plan Note - Laith Lino CRNP - 09/21/2023 1:47 PM EDT Associated Problem(s): Antepartum anemia complicating CONSIDERATIONS: Severe maternal anemia (hemoglobin levels below [...] blood conservation program after oral therapy has failed)as indicated to keep hemoglobin level above 11 g/dl during . Oral iron should be taken with orange juice. If anemia studies do not reflect iron deficiency anemia we recommend checking TSH, B12 and folate levels and referral to a poultry trimmer. If hemoglobin levels are below 8 g/dl, we recommend Maternal Medicine ultrasound for growth every 4 weeks after 24 weeks. Consider a blood transfusion if hemoglobin levels fall below 6 g/dL. ([employer] Practice Bulletin Number 95, December,). Consider Venofer transfusions if patient labs supportive of iron deficiency anemia with dosing of 300 mg IV weekly x 3 weeks * Pt Handout (on AVS) - Laith Lino CRNP - 09/21/2023 1:46 PM EDT 79359 Understanding Blood Sugar During Gestational diabetes causes high blood sugar levels during . You are at risk of developing, or perhaps have already developed, gestational diabetes. Controlling your blood sugar can help prevent problems for you and your baby. Your body turns food into blood sugar As food is digested, it turns into sugar (glucose), a fuel that feeds your body. This sugar goes into your bloodstream. Your body then releases a substance called insulin to help your body use blood sugar correctly. Blood sugar goes to your baby The placenta is where nutrients in your blood are exchanged with your baby's blood. Your blood sugar goes to your baby from the placenta through the umbilical cord. Your baby uses this sugar to grow. Too much blood sugar affects you and your baby During , the placenta makes hormones that can disrupt the way your body uses insulin. If your body can't use insulin correctly, your blood sugar level gets too high. Then too much blood sugar goes to your baby. This can cause problems for both you and your baby. Controlling your blood sugar helps prevent problems You can lower your blood sugar by eating right, exercising, and taking medicines that your healthcare provider prescribes to control your blood sugar. If you keep your blood sugar in control, the risks to you and your baby are the same as those for a normal . Last Reviewed Date: 12/16/202019998788-4110 [employer]. All rights reserved. This information is not intended as a substitute for professional medical care. Always follow your healthcare professional's instructions. * Pt Handout (on AVS) - Laith Lino CRNP - 09/21/2023 1:46 PM EDT Images from the original note were not included. [address] Gestational Diabetes: Exercise Exercise can help you keep your blood sugar in a normal range. That?s because your body uses more blood sugar when you exercise. Diabetes in can often be managed with careful nutrition and exercise alone. Then you may not need medicine to control your blood sugar. Exercise regularly Your healthcare provider may want you to exercise each day. The best time depends on when your blood sugar is highest. Exercising may also help ease some common symptoms of . These include bloating, constipation, and backaches. Ask about exercise at your first care visit. Your provider will work with you to make an exercise plan that fits your needs. Here are some tips: Aim to exercise for 30 to 60 minutes a day. Do this at moderate intensity. This means you're moving enough to raise your heart rate and start sweating. But you can still talk normally. Try breaking up daily exercise into 2 or 3 sessions. For example, take a 15- minute walk after each meal. Exercise with a friend or your partner. This may help you stick to your exercise plan. Go at a comfortable pace. Don?t tire yourself out. Exercise safely Ask your provider about exercise safety for you and your baby. Walking, swimming, and low-impact orwater aerobics are often the safest things to do. Other safety tips include: Don't do activities where you jump, turn, twist, stop or start quickly. Don't lift heavy weights. Don't exercise on your back after the first trimester. This can put too much pressure on an important vein. It can limit blood flow to the baby. If you do yoga or Pilates, find a class designed for . Use a sports bra to support your breasts. You may also want to use a belly support belt later inpregnancy. Don't get overheated. Don't do hot yoga or hot Pilates. Don't raise your heart rate to a level that makes it hard to talk. Drink plenty of water. If you use insulin, carry a carbohydrate snack with you. If you walk or do low-impact aerobics, wear sturdy shoes. If you haven?t eaten in 2 or more hours, have a light snack before exercising. Don't do contact sports that put you at risk of being hit in the belly. These include boxing, ice hockey, soccer, and basketball. Don't go skydiving or scuba diving. Don't do things that may cause a serious fall. These include horseback riding, gymnastics, and off-road cycling. Use a stationary bike. It's a safer choice than a standard bike. It will stop you from getting off balance with your growing belly. When it's not safe to exercise It's not advised to exercise when if you have any of these health conditions: Some types of heart and lung diseases with twins or more, and at risk for labor labor of your water has broken (ruptured membranes) Placenta previa later than 26 weeks of Preeclampsia or high blood pressure due to Severe anemia Cervical insufficiency or cerclage When to call your healthcare provider Call your provider right away or go to the emergency room (ER) if you have any of these: Belly pain Shortness of breath before starting exercise Vaginal bleeding Dizziness or feeling faint Chest pain Headache Decreased movement contractions Muscle weakness Calf pain or swelling Fluid leaking from the vagina Last Reviewed Date: 07/19/202119991027-2192 [employer]. All rights reserved. This information is not intended as a substitute for professional medical care. Always follow your healthcare professional's instructions. * Pt Handout (on AVS) - Laith Lino CRNP - 09/21/2023 1:46 PM EDT Images from the original note were not included. 17334 Healthy Meals for Diabetes Figuring out what to eat can be one of the most confusing parts of diabetes. It will help you to have a meal plan. You can ask your healthcare team to help you make a meal plan that fits your needs. Your meal plan tells you when to eat your meals and snacks, what kinds of foods to eat, and how muchof each food to eat. You don?t have to give up all the foods you like but following some guidelines will set you up for success in managing your diabetes. A healthcare provider will help you develop a meal plan that fits your needs. Choose healthy carbohydrates Starches, sugars, and fiber are all types of carbohydrates (carbs). Carbs can get a bad reputation since they affect your blood sugar the most. It is important to remember that your body benefits from the right amount of healthy carbs. Fiber can help lower your cholesterol and triglycerides. Fiber is also healthy for your heart. You should have 20 to 35 grams of total fiber each day. Fiber comes from plants. Fiber-rich foods include: Whole-grain breads and cereals Nuts Brown rice and quinoa Whole-wheat pasta Fruits and vegetables Beans and peas Keep track of the amount of carbs you eat. This can help you keep the right balance of physical activity and medicine. The amount of carbs needed will vary for each person. It depends on many things such as your health, the medicines you take, and how active you are. Your healthcare team will help you figure out the right amount of carbs for you. You may start with around 45 to 60 grams of carbs per meal, depending on your needs. Here are some examples of foods that have about 15 grams of carbs (1 serving of carbs): 1/2 cup of canned or frozen fruit A small piece of fresh fruit (4 ounces) 1 slice of bread 1/2 cup of oatmeal 1/3 cup of rice 4 to 6 crackers 1/2 [place] muffin 1/2 cup of black beans 1/4 of a large baked potato (3 ounces) 2/3 cup of plain fat-free yogurt 1 cup of soup 1/2 cup of casserole 6 chicken nuggets 2-ogdl-ixpjmw brownie or cake without frosting 2 small cookies 1/2 cup of ice cream or sherbet Choose healthy protein foods Proteins play a alatorre role in building healthy muscles, bones, skin, and many other parts of your body. Eating protein that's low in fat can help you control your weight. It also helps keep your heart healthy. Low-fat protein foods include: Fish Plant proteins, such as lentils, beans, peas, nuts, and soy products like tofu and soymilk Lean meat with all visible fat removed Poultry with the skin removed Low-fat or nonfat milk, cheese, and yogurt Limit unhealthy fats and sugar Saturated and trans fats are unhealthy for your heart. They raise LDL (bad) cholesterol. Fat is also high in calories. To cut down on unhealthy fats and sugar, limit these foods: Butter or margarine Palm and palm kernel oils and coconut oil Cream Cheese Roth Lunch meats Ice cream Sweet bakery goods such as pies, muffins, and donuts Jams and jellies Candy bars Regular sodas How much to eat The amount of food you eat affects your blood sugar. It also affects your weight. Your healthcare team will tell you how much of each type of food you should eat. Use measuring cups and spoons and a food scale to measure serving sizes. Learn what a correct serving size looks like on your plate. This will help [facility] and can?t measure your servings. For instance, a serving of meat is about the size of the palmof your hand. Eat only the number of servings given on your meal plan for each food. Don?t take seconds. Learn to read food labels. Be sure to look at serving size, total carbohydrates, fiber, calories, sugar, salt, and saturated and trans fats. Look for healthier options such as foods with no added sugar or salt. Plan ahead for parties. Then you can still have a good time without diving into unhealthy food choices. Bring a healthy dish to [employer]. Choose healthy snacks When it comes to snacks, we often think about foods with added sugar and fats. But there are many other options for healthier snack choices. Here are a few snack ideas to choose from: Snacks with less than 5 grams of carbohydrates 1 piece of string cheese 3 celery sticks plus 1 tablespoon of peanut butter 5 may tomatoes plus 1 tablespoon of ranch dressing 1 hard-boiled egg 1/4 cup of fresh blueberries 5 baby carrots 1 cup of light popcorn 1/2 cup of sugar-free gelatin 15 almonds Snacks with about 10 to 20 grams of carbohydrates 1/3 cup of hummus plus 1 cup of fresh cut non-starchy vegetables (carrots, green peppers, broccoli, celery, or a mix) 1/2 cup of fresh or canned fruit plus 1/4 cup of cottage cheese 1/2 cup of tuna salad with 4 crackers 2 rice cakes and a tablespoon of peanut butter 1 small apple or orange 3 cups light popcorn 1/2 of a turkey sandwich (1 slice of whole-wheat bread, 2 ounces of turkey, and mustard) Portion sizes are important for controlling your blood sugar and staying at a healthy weight. Stockup on healthy snack foods so you always have them on hand. When to eat Your meal plan will likely include breakfast, lunch, dinner, and some snacks. Try to eat your meals and snacks at about the same times each day. Eat all your meals and snacks. Skipping a meal or snack can make your blood sugar drop too low. It can also cause you to eat too much at the next meal or snack. Then your blood sugar could get toohigh. Be patient It can be stressful trying to figure out what to eat. But over time, you?ll form new habits around your meal plan and healthy guidelines. Then eating right for your blood sugar will be much easier. Last Reviewed Date: 09/17/202319991232-6272 [employer]. All rights reserved. This information is not intended as a substitute for professional medical care. Always follow your healthcare professional's instructions. * Pt Handout (on AVS) - Brynn LinoAD Still - 09/21/2023 1:46 PM EDT Images from the original note were not included. 35993 If You Need Extra Insulin During During , your body may not be able to make enough insulin to control your blood sugar. If this happens, you may need extra insulin. This will help control your blood sugar. In some cases, anoral antidiabetic medicine may be used. An example of this is glyburide. But insulin is used most often. Insulin is a natural substance. It is not addictive. It does not harm your baby. It does not cross the placenta. That means it does not affect your baby the way taking a pill would. If you did not have diabetes before , you will likely stop taking insulin after your baby is born. Learning to use insulin Your healthcare provider will prescribe your insulin. They will teach you how to give yourself a shot. With practice, you?ll get comfortable doing it. You will need to inject it 1 or more times a day. Insulin is injected into fatty tissue. The best site for a shot of insulin is in your belly area. But you can also do the shot in your upper arm or thigh. Talk with your healthcare provider about where to give the shot. Here are some steps to follow: Choose an injection site. Clean it with alcohol if the skin is dirty. Pinch a fold of skin. Insert the needle at a steep angle. The best angle will depend on your body type, the length of the needle, and where you put the shot. Your healthcare provider will help youfind the best angle. Keeping the skin pinched, push the plunger down. This injects the insulin. Release the pinched skin. Remove the needle from your skin. If you see blood or insulin leaking from your skin, press firmly on the site for 5 to 8 seconds. Don?t rub your skin in the area. [place] and syringes should be used only 1 time. After using, throw them away in a puncture-proof container. This is known as a sharps container. Don?t throw needles in your household trash. Talk to your healthcare provider if you have any questions or concerns about taking insulin. The best site for injecting insulin is your abdomen. But you can also inject into an upper arm or thigh. Talk with your health care provider about where to give yourself a shot. Finding the right dose for you Your healthcare provider will work with you to find the right dose of insulin for you. It may take time. This is because you need to balance your insulin with your food and exercise. And your body needs more insulin as your baby grows. You must check your blood sugar several times a day. This is to be sure your insulin is working. Ifyour blood sugar is too high or too low, your healthcare provider will adjust your dose. Low blood sugar Taking insulin puts you at risk of low blood sugar. Symptoms of low blood sugar include: Shakiness Dizziness Weakness Confusion If you feel any of these symptoms, check your blood sugar right away. Always treat low blood sugar quickly. To do this, eat 15 grams of fast-acting sugar, such as: 3 glucose tablets 5 to 6 pieces of hard candy 1 to 2 tablespoons of honey or sugar cup fruit juice or regular, nondiet soda 1 cup fat-free milk Then check your blood sugar again in 15 minutes. If your blood sugar is still low, eat another 15 grams of sugar. If your blood sugar does not return to the target range in 30 minutes, call your healthcare provider. Last Reviewed Date: 05/18/202219990473-1018 [employer]. All rights reserved. This information is not intended as a substitute for professional medical care. Always follow your healthcare professional's instructions. * Pt Handout (on AVS) - Laith Lino CRNP - 09/21/2023 1:46 PM EDT Images from the original note were not included. Managing Gestational Diabetes - Video Being diagnosed with gestational diabetes can be stressful. But with proper care and management, you can stay healthy and deliver a healthy baby. In many cases, gestational diabetes goes away on its own after the mother gives . To view the video go to this web address: [email or web address] Or, scan this QR code with your smart phone [employer]. * Pt Handout (on AVS) - Laith Lino CRNP - 09/21/2023 1:46 PM EDT Images from the original note were not included. [id number] What Is Gestational Diabetes? Diabetes is when your body doesn?t use blood sugar normally. Gestational diabetes happens only in . When food is digested, it turns into sugar (glucose) that goes into your bloodstream. Yourbody sends out insulin. This is a hormone that helps your cells use this blood sugar for energy. Changes in your body during may affect this process. This can cause your blood sugar to be too high. This can cause problems for both you and your baby. You can take steps to control your blood sugar. This will help reduce the risks for you and your baby. Managing gestational diabetes You need to control your blood sugar while you are . Your healthcare team will help you make a plan to do this. This plan will include: Eating the right foods. This is the main way to control your blood sugar. You need to eat a variety of healthy foods each day. To help you plan changes in your diet, you will likely work with a registered dietitian. This is an expert on food and nutrition. The dietitian may have you take part charles nutrition program to help you reach your goals. Getting exercise. Your body uses more blood sugar when you exercise. Your healthcare team can help you pick the best kinds of exercise for you. Checking your blood sugar. You will likely need to check your blood sugar at home. You will do this 2 or more times a day. Your healthcare team will teach you how. They will talk with you about your blood sugar goals. Your blood sugar may also be tested every week or so at a clinic. If your blood sugar stays too high, you may need to have insulin shots during your . Risks to your baby If your blood sugar stays high, your baby is at risk for these problems: Your baby may grow too large. If your blood sugar stays too high, your baby may grow too large. This is called macrosomia. This means a baby is too big for a safe vaginal . A large baby may get their shoulder stuck behind the pubic bone during . This is called shoulder dystocia. The baby's arms and shoulders could be injured. This may cause permanent arm damage. The baby may also have low oxygen levels (hypoxia) while they are stuck. Hypoxia can lead to cerebral palsy. In rare cases, it can lead to . Your baby?s organs may not be fully grown at . If you have diabetes, your baby may need to be delivered early. This may be because of problems with the . Or it may be because of risks to you or your baby. If your baby is delivered early, their lungs may not work well. This is called respiratory distress syndrome. Your baby's liver also may not work normally. And your baby may have yellow color in their skin and eyes (jaundice) after . Your baby?s blood sugar may be low after . If your blood sugar is too high, your baby makesextra insulin. The baby will keep making extra insulin right after . Your baby may need to be treated for low blood sugar. Your baby could be stillborn. This is very rare. But your baby could before if your blood sugar stays high for too long. Risks to you If you don?t control your blood sugar, you are more likely to have: High blood pressure. High blood sugar makes you more likely to have high blood pressure during your . This is a danger to your health. It could lead to early delivery for your baby. Infections. High blood sugar makes you more likely to have bladder, kidney, and vaginal infections. Trouble breathing. You may feel short of breath. High blood sugar can cause too much fluid around the baby. This is called polyhydramnios. Your abdomen gets big and pushes up on your lungs. Difficult labor. Your delivery may be harder. And your recovery may take longer. If your blood sugar stays too high, your baby may grow too large. A large baby might cause injury to you during . Or the baby may have to be delivered by section (). This means making a cut (incision) in your abdomen and uterus. A is a common risk of gestational diabetes. Reduce your future risk for type 2 diabetes Women who have gestational diabetes are at higher risk of type 2 diabetes later. You are also at higher risk for gestational diabetes in your next . You can help reduce your risk in these ways: Lose excess weight. Be as active as you can. Eat more fruits and vegetables. Eat fewer processed foods. Get regular blood tests to check for diabetes. Who is at risk for gestational diabetes? You're more at risk if you: Are overweight Have a family history of diabetes Have had a baby who before Had gestational diabetes in the past Are , , , [place] or [place] , or How daily issues affect your health Many things in your daily life impact your health. This can include transportation, money problems,housing, access to food, and childcare. If you can?t get to medical appointments, you may not receive the care you need. When money is tight, it may be difficult to pay for medicines. And living far from a grocery store can make it hard to buy healthy food. If you have concerns in any of these or other areas, talk with your healthcare team. They may know of local resources to assist you. Or they may have a staff person who can help. Last Reviewed Date: 01/16/202319995459-4435 [employer]. All rights reserved. This information is not intended as a substitute for professional medical care. Always follow your healthcare professional's instructions. * Pt Handout (on AVS) - Laith Lino CRNP - 09/21/2023 1:46 PM EDT Images from the original note were not included. 67554 Understanding Carbohydrates Just like a car needs the right type of fuel to run, you need the right kind of food to function. To keep your energy level up, your body needs food that has carbohydrates (carbs). But carbs raise blood sugar levels higher and faster than other kinds of food. Your dietitian will work with you to figure out the amount of carbs you need. Carbs come in 3 types: starches, sugars, and fiber. Starches Starches are found in grains, some vegetables, and beans. Grain products include bread, pasta, cereal, and tortillas. Starchy vegetables include potatoes, peas, corn, mccarthy beans, yams, and squash. Kidney beans, chowdary beans, black beans, garbanzo beans, and lentils also have starches. Sugars Sugars are found naturally in many foods. Or they can be added. Foods that contain natural sugar include fruits and fruit juices, dairy products, honey, and molasses. Added sugars are found in most desserts, processed foods, candy, regular soda, and fruit drinks. These are very helpful to treat lowblood sugar (hypoglycemia). They give you sugar quickly. Try to keep at least 15 to 20 grams of these simple sugars with you at all times. Eat or drink these if you start to have symptoms of low blood sugar. Fiber Fiber comes from plant foods. Your body can't digest most fiber. Instead of raising blood sugar levels like other carbs, fiber stops blood sugar from rising too quickly. Fiber is found in fruits, vegetables, whole grains, beans, peas, and many nuts. Understanding how to count your carbs Keep track of the amount of carbs you eat. This can help you keep the right balance of carbs, physical activity, and medicine. The amount of carbs you need will be different from what other people need. How much you need depends on many things. These include your health, the medicines you take, andhow active you are. Your healthcare team will help you figure out the right amount of carbs for you. You may start with 45 to 60 grams of carbs per meal, depending on your case. Carb counting is a system that helps you keep track of the carbohydrates you eat at each meal. Carbs come from many foods. These include grains, starchy vegetables, fruit, milk, beans, and snackfoods. You can either count carbohydrate grams or carbohydrate servings. When you count carbohydrate servings, 1 carbohydrate serving = 15 grams of carbohydrates. Here are some examples of foods that have about 15 grams of carbs (1 serving of carbohydrates): 1/2 cup of canned or frozen fruit A small piece of fresh fruit (4 ounces) 1 slice of bread 1/2 cup of oatmeal 1/3 cup of rice 4 to 6 crackers 1/2 [place] muffin 1/2 cup of black beans 1/4 of a large baked potato (3 ounces) 2/3 cup of plain fat-free yogurt 1 cup of soup 1/2 cup of casserole 6 chicken nuggets [id number] brownie or cake without frosting 2 small cookies 1/2 cup of ice cream or sherbet Carb counting is easier when food labels are available. Look at the label to see how many grams of total carbs per serving the food contains. Then you can figure out how much you should eat. If your food doesn't have a nutrition label, you should be able to get an idea of how many carbs there are per serving by using a book or website. Two very important lines to look at on the label are the serving size and the total carbohydrate amount per serving. Here are some tips for using food labels to count your carbs: Check the serving size. The information on the label is based on that serving size. If you eat more than the listed serving size, you may have to double or triple the other information on the label. Check the total grams of carbs. Total carbohydrate from the label includes sugar, starch, and fiber. Be sure to use the total carbohydrate number (minus the fiber) and not sugar alone. Know how many grams of carbs you can have. Be familiar with the matching portion sizes. Compare labels. Compare the labels of different products. Look at serving sizes and total carbs to find the products that work best for you. Don't forget protein and fat. With the focus on carb counting, it might be easy to forget protein and fat in your meals. Don't forget to include sources of protein and healthy fat to balance your meals. Also watch how much salt (sodium) you eat. This is especially true if you have high blood pressure. If you have diabetes, limit the amount of sodium to less than 2,300 mg a day. It?s also important to be consistent with the amount of carbs and time you eat when taking a fixed dose of diabetes medicine. Work with your healthcare provider or dietitian if you need more help. They can help you keep track of your carbs. They can also help you figure out how many grams of carbs you should have. Last Reviewed Date: 08/17/202319998349-7279 [employer]. All rights reserved. This information is not intended as a substitute for professional medical care. Always follow your healthcare professional's instructions. * Pt Handout (on AVS) - Laith Lino CRNP - 09/21/2023 1:46 PM EDT [id number] Anemia During Anemia is a condition in which the red blood cell count is too low. In women, this is often caused by not having enough iron in the blood. Anemia is common in and very easy to treat. Why you need iron While , your body uses iron to make red blood cells for you and your baby. These cells bring oxygen to your baby and to the rest of your body. Not having enough red blood cells can cause yourbaby to be born too small. But this is rare, as it?s easy for you to get enough iron. Testing for anemia The only way to know if you have anemia is to have a simple test called a CBC (complete blood count). This is a routine test that will be done at one of your first visits. This test may be done again, at about week 26 to week 28. Treating anemia If you have anemia due to low iron content, follow the advice of your healthcare provider. Eating foods high in iron and taking supplements can help you get the iron you need. Eating foods high in iron Green leafy vegetables and nuts are a good source of iron. Eat foods that are high in iron such as: Red meat (limit organ meats such as liver) Seafood (be sure it?s fully cooked), and don't eat fish that are high in mercury, such as swordfish, tilefish, yovani mackerel, and shark Tofu Eggs Green, leafy vegetables Whole grains and iron-fortified cereals Dried fruits and nuts Taking iron supplements In most cases, a vitamin can provide enough iron. But if you need more, your healthcare provider may prescribe an iron supplement. Swallow iron pills with a glass of orange or cranberry juice. The vitamin C in these fruit juices can help your body absorb iron. But don?t take your iron pills with juices that have calcium added to them. They can keep your body from absorbing the iron. Iron supplements Iron supplements may have certain side effects. They may cause your stools to turn black, and make you feel sick to your stomach or constipated. Here are some tips that may help you limit side effects: Start slowly. Take 1 pill a day for a few days. Then work up to your prescribed dose over time. Take your pills with meals and not at bedtime. Increase the fiber in your diet. Eat more whole grains, fruits, and vegetables. Do mild exercise each day. If advised by your healthcare provider, take a stool softener. Last Reviewed Date: 11/16/202119998620-0195 [employer]. All rights reserved. This information is not intended as a substitute for professional medical care. Always follow your healthcare professional's instructions. * Pt Handout (on AVS) - Laith Lino CRNP - 09/21/2023 1:46 PM EDT Images from the original note were not included. Diabetes and Healthy Eating - Video If you have diabetes, you know it's important to keep your blood glucose level within a safe range.One of the best ways to do this is by eating a healthy diet. Let's take a few minutes to learn about some good eating habits that can make a difference for you. To view the video go to this web address: [email or web address] Or, scan this QR code with your smart phone [employer]. * Pt Handout (on AVS) - Laith Lino CRNP - 09/21/2023 1:46 PM EDT Images from the original note were not included. 84162 Diabetes: Shopping for and Making Meals Having diabetes doesn?t mean you have to shop in a special aisle or look for special foods. But you'll need to make healthy food choices. Comparing items and reading food labels is alatorre. This can helpyou find the healthiest foods for you and your family. Comparing items When you shop, compare items to find the best ones for your needs. Keep these facts in mind: No sugar added doesn't mean a product is sugar-free. Sugar-free means less than 1/2 gram (g) of sugar per serving. Fat-free means less than 1/2 g of fat per serving. This does not necessarily mean the product islow in calories. Low fat means 3 g fat or less per serving. Reduced fat or less fat means 25% less fat than the regular version. Some of this fat may be saturated or trans fat. And the calories per serving may be similar to the regular version. Making small changes Don?t try to change all of your eating habits at once. Here are some ideas to start with: Try fat-free or low-fat cheese, milk, and yogurt. Also, try leaner cuts of meat. This will help you cut down on saturated fat. Try whole-grain bread, brown rice, and whole-wheat pasta. Load up on fresh or frozen vegetables. If you buy canned, choose low-sodium vegetables. Stay away from processed foods as much as possible. They tend to be low in fiber and high in trans fats and salt. Limit how much salt you have to 2,300 mg per day. Try tofu, soy milk, or meat substitutes.?They can help you cut cholesterol and saturated fat outof your diet. Learning to read food labels To find healthy foods that help you control blood sugar, learn how to read food labels. Look for the Nutrition Facts label on packaged foods. It will tell you how many servings there are in the package. It will also tell you the amount of carbohydrate, sugar, fat, and fiber in each serving. Then you can decide if the food fits into your meal plan. Using the food label So, once you have the food label, what do you do with it? The food label helps in many ways. Use itto: Compare items. Decide which is the best for your health needs. Track the number of carbohydrates in your portions. Figure out how many servings of a food you can have and still stay within the number of carbohydrates for that meal. Planning meals For good blood sugar control, plan what and when you?ll eat. Start by making a meal plan that includes all the food groups. Then time your meals and exercise to help keep your blood sugar level steady. You may need to adjust your plan for special situations. But 3 of the best ways to manage your blood sugar are to: Eat meals and snacks at the same time every day Eat about the same amount of food Exercise each day Eating from all the food groups A healthy meal plan starts with eating many different types of foods. Look for lean meats, fresh fruits and vegetables, whole grains, and low-fat or nonfat dairy products. Eating a wide variety of healthy foods offers the nutrients your body needs. It can also keep you from getting bored with your meal plan. Reducing liquid sugars Extra calories from sodas, sports drinks, and fruit drinks make it hard to keep blood sugar in range. Cut as many liquid sugars from your meal plan as you can. This includes most fruit juices. These are often high in natural or added sugar. Instead, take plenty of water and other sugar-free drinks. Eating less fat If you need to lose some weight, try to reduce the amount of fat in your diet. This can also help lower your cholesterol level. This can keep blood vessels healthier. Cut fat by using only small amounts of liquid oil for cooking. Read food labels carefully. This can help you stay away from foods with unhealthy trans fats. Timing your meals When it comes to blood sugar control, when you eat is as important as what you eat. You may need toeat several small meals spaced evenly during the day. This can help you stay in your target range. So don?t skip breakfast or wait until late in the day to get most of your calories. Doing so can make your blood sugar rise too high or fall too low. Cooking wisely Broil, steam, bake, or grill meats and vegetables. Don't zacarias them. Flavor foods with vegetable pure, lemon or standing rock juice, or herb seasonings. Don't use cream-based sauces or sugary glazes. Remove skin from chicken and turkey before serving. Look in cookbooks for easy low-fat, low-sugar recipes. When making your normal recipes, cut sugar by 1/2. Cut fat by 1/3. Last Reviewed Date: 05/18/202119993829-0149 [employer]. All rights reserved. This information is not intended as a substitute for professional medical care. Always follow your healthcare professional's instructions. * Pt Handout (on AVS) - Laith Lino CRNP - 09/21/2023 1:46 PM EDT Images from the original note were not included. [id number] Gestational Diabetes: After Your blood sugar will most likely return to normal after delivery. But gestational diabetes is a warning sign that you are at risk of getting diabetes later in life. You?re also more likely to have gestational diabetes with your next . But you can take steps to reduce these risks. Taking care of yourself Even if your blood sugar goes back to normal, you still need to take care of yourself. This will help prevent diabetes later in life. You'll need to: Keep your weight down. Eating food that is low in fat and sugar can help you control your weight. If you?re overweight, your risk of getting diabetes in 10 to 15 years more than doubles. Keeping your weight down also reduces your risk of gestational diabetes in your next . Get regular exercise. Exercise helps lower your blood sugar. It can also help you control your weight. Try to work up to at least 150 to 300 minutes of moderate exercise every week. This is at least 30 minutes each day. Have your blood sugar checked. Make an appointment to have your blood sugar checked 6 to 8 weeksafter delivery. If your blood sugar is still high, you may have type 2 diabetes. Your healthcare provider will tell you more about how to manage diabetes long-term. Have regular diabetes screenings. Have blood tests every year, or as often as your healthcare provider advises. Breastmilk is the best food for your baby. Giving only breastmilk is advised for at least your baby's first 6 months. may also help lower your blood sugar. Your healthcare provider can show you how to breastfeed. Be sure to eat healthy foods and drink extra water while you?re . You may find exercise easier right after . This is when your breasts may feel law firm consultant. Planning a future Your blood sugar needs to be back to normal before you get again. Have your blood sugar checked before you plan your next . And remember that it?s possible to get again soon after you give . Talk with your healthcare provider about the best method of control for you and your partner. Last Reviewed Date: 07/19/202119995203-7088 [employer]. All rights reserved. This information is not intended as a substitute for professional medical care. Always follow your healthcare professional's instructions. documented in this encounter Plan of Treatment Upcoming Encounters Date Type Department Care Team (Late st Contact Info) Description 09/24/2023 9:00 AM EDT Telemedicine Nutrition Services, [facility] [address] [place] [address] Anai Mustafa, RDN [address] [place] [address] 09/27/2023 10:45 AM EDT Office Visit Facility Specialist Obstetrics Maternal Medicine, [address] [address] [place], [facility] [place] [address] 09/27/2023 10:45 AM EDT Imaging Radiology [facility], [place] [address] [place] [address] 09/28/2023 2:30 PM EDT Office Visit Gynecology/Obstetrics [facility] [address] Claire Caballero PA-C [address] [place] [address] 10/09/2023 1:30 PM EDT Laboratory Laboratory, [facility] 132 [facility] [place] [phone] [facility] 132 [facility] [place] [address] 10/09/2023 2:15 PM EDT Office Visit Gynecology/Obstetrics [facility] 132 [facility] [place] [address] Indira Cleveland CRNP 132 [facility] [place] [address] 10/10/2023 9:30 AM EDT Pharmacy Pharmacy, [place] [address] [place] [address] [facility], [facility] [address] [place] [address] 10/16/2023 3:00 PM EDT Office Visit Gynecology/Obstetrics [facility] [address] [place] [address] Praveen Carranza MD [address] [place] [address] 10/24/2023 3:00 PM EDT Office Visit Gynecology/Obstetrics [facility] [address] [place] [address] Praveen Carranza MD [address] [place] [address] 10/29/2023 8:45 AM EDT Office Visit Gynecology/Obstetrics [facility] [address] [place] [address] Praveen Carranza MD [address] [place] [address] 05/12/2024 10:00 AM EST Office Visit Family Practice [facility] [address] [place] [address] Malinda Owens CRNP [address] [place] [address] Scheduled Referrals Name Type Priority Associated Diagnoses Orde r Schedule REMOTE PATIENT MONITORING REFERRAL Referral Within 3 days (urgent) Diet controlled gestational diabetes mellitus (GDM) in third trimester Ordered: 09/21/2023 Health Maintenance Due Date Last Done Comments [...] diabetes mellitus (GDM) in third trimester- Primary Antepartum anemia complicating Anemia, antepartum Supervision of high risk , antepartum, third trimester 34 weeks gestation of state, incidental documented in this encounter Care Teams Store Administrative Assistant Relationship Specialty Start Date End Date Malinda Owens CRNP 132 [facility] [place] [address] PCP - General Nurse Practitioner 09/20/23 documented as of this encounter
--- OUTSIDE RECORDS SUMMARY | 2023-10-30 18:03 | External Medical Summary ---
Author Name Unknown Address Unknown Organization K0G:LABORATORY [place] [address] [place] [address] Laboratory Report Ordering Provider Test Date Status ADELINEKELSI 09/19/2023 12:54:02 Final Based on ACOG guideline, ges tational diabetes mellitus is diagnosed when any of the following is met:
Fasting is greater than or equal to 95 mg/dL
1 hour is greater than or equal to 180 mg/dL
2 hour is greater than or equal to 155 mg/dL
3 hour is greater than or equal to 140 mg/dL Observation Date Value Abnormality Reference (Units ) Status Glucose, fasting 09/19/2023 12:54:02 74 70- 94 (mg/dL) Final Performing Location LABORATORY [facility] [place] [address] [place] [address]
--- OUTSIDE RECORDS SUMMARY | 2023-10-30 18:03 | External Medical Summary | Summary of Care ---
Author Name Unknown Organization [facility] Address [address] [place] [address] Phone [phone] Care Team Providers Care Hand Salter Name Role Phone Unavailable Primary Care Provider Unavailabl e Reason for Visit * Reason Onset Date Comments Anemia Follow-Up 09/14/2023 Encounter Details Date Type Department Care Team (Late st Contact Info) Description 09/14/2023 2:30 PM EDT Pharmacy Pharmacy, [place] [address] [place] [address] Clinic, [place] [address] [place] [address] Iron deficiency anemia, unspecified iron deficiency anemia type* Allergies No known active allergiesdocumented as of this encounter (statuses as of 09/14/2023) Medications Medication Sig Dispensed Refills Start Date End Date Status 19 -1 MG Oral Tablet Chewable Take by mouth. 0 Active Doxylamine Succinate (Sleep) 25 MG Oral Tablet (Unisom SleepTabs) Take 1 Tablet by mouth at bedtime as needed. 0 Active Vitamin B-12 1000 MCG Oral Tablet (Cyanocobalamin)Indica tions:Antepartum anemia complicating Take 1 Tablet by mouth in the morning. 30 Tablet 5 08/14/2023 Active documented as of this encounter (statuses as of 09/14/2023) Active Problems Problem Noted Date Diagnosed Date [...] as of this encounter (statuses as of 09/14/2023) Resolved Problems Problem Noted Date Diagnosed Date Resolved Date Abnormal glucose tolerance i n mother complicating 04/19/2023 08/31/2023 Overview: Failed early glucola. 3hr GTT ordered documented as of this encounter (statuses as of 09/14/2023) Immunizations Name Administration Dates Next Due DTP [...] money to get more. Never true 01/19/2023 Ferrum Depression Scale Answer Date Recorded Ferrum Depression Scale Total 9 04/03/2023 The thought [...] as of this encounter Progress Notes * Nel Freitas RPh - 09/14/2023 10:33 AM EDT CBCd, ferritin, iron screen, retic panel, B12, FA ordered for 10/09/23. Gerald PlazaD, [facility] Clinical Pharmacist [facility] (P: [phone]) 09/14/2023 10:33 AM * Jeni Bryant, finish molder - 09/13/2023 2:11 PM EDT Patient Phone Numbers MyG sent to patient.. Patient received Venofer 300 mg x 3 on 08/24/23, 08/31/23 and 09/07/23. Labs due on 10/09/23. GA: 32w6d Estimated Date of Delivery: 11/02/23 Pharmacist - please place appropriate lab orders. Thank you, Jeni Bryant Tank Car Mechanic 09/13/2023,2:12 PM documented in this encounter Plan of Treatment Upcoming Encounters Date Type Department Care Team (Late st Contact Info) Description 09/14/2023 1:15 PM EDT Imaging Radiology [facility] [address] [place] [address] 09/14/2023 2:15 PM EDT Office Visit Gynecology/Obstetrics [facility] [address] [place] [address] Indira Cleveland CRNP [address] [place] [address] 09/28/2023 2:30 PM EDT Office Visit Gynecology/Obstetrics [facility] [address] [place] [address] Claire Caballero PA-C [address] [place] [address] [place] [address] 10/09/2023 1:30 PM EDT Laboratory Laboratory, [facility] [address] [place] [phone] Khris Topete [address] [place] [address] 10/09/2023 2:15 PM EDT Office Visit Gynecology/Obstetrics [facility] [address] [place] [address] Indira Cleveland CRNP [address] [place] [address] 10/10/2023 9:30 AM EDT Pharmacy Pharmacy, [place] [address] [place] [address] Clinic, [facility] [address] [place] [address] 10/16/2023 3:00 PM EDT Office Visit Gynecology/Obstetrics [facility] [address] [place] [address] Praveen Carranza MD [address] [place] [address] 10/24/2023 3:00 PM EDT Office Visit Gynecology/Obstetrics [facility] [address] [place] [address] Praveen Carranza MD [address] [place] [address] 10/29/2023 8:45 AM EDT Office Visit Gynecology/Obstetrics [facility] [address] [place] [address] Praveen Carranza MD [address] [place] [address] 05/12/2024 10:00 AM EST Office Visit Family Practice [facility] [address] [place] [address] Malinda Owens CRNP [address] [place] [address] Scheduled Orders Name Type Priority Associated Diagnoses Orde r Schedule CBC WITH WBC DIFFERENTIAL Lab Routine Iron deficiency anemia, unspecified iron deficiency anemia type Expected: 10/09/2023, Expires: 08/15/2024 IRON SCREEN, INCLUDING TIBC Lab Routine Iron deficiency anemia, unspecified iron deficiency anemia type Expected: 10/09/2023, Expires: 08/15/2024 FERRITIN Lab Routine Iron deficiency anemia, unspecified iron deficiency anemia type Expected: 10/09/2023, Expires: 08/15/2024 RETICULOCYTE PANEL Lab Routine Iron deficiency anemia, unspecified iron deficiency anemia type Expected: 10/09/2023, Expires: 08/15/2024 FOLIC ACID Lab Routine Iron deficiency anemia, unspecified iron deficiency anemia type Expected: 10/09/2023, Expires: 08/15/2024 VITAMIN B12 Lab Routine Iron deficiency anemia, unspecified iron deficiency anemia type Expected: 10/09/2023, Expires: 08/15/2024 Health Maintenance Due Date Last Done Comments [...] Iron deficiency anemia, unspecified iron deficiency anemia type- Primary documented in this encounter
--- OUTSIDE RECORDS SUMMARY | 2023-10-30 18:03 | External Medical Summary | Summary of Care ---
Author Name Unknown Organization [facility] Address [address] [place] [facility] [place] [address] Phone [phone] Care Team Providers Care Nuclear Monitoring Technician Name Role Phone Unavailable Primary Care Provider Unavailabl e Reason for Visit * Reason Comments Return Visit Encounter Details Date Type Department Care Team (Late st Contact Info) Description 09/14/2023 2:15 PM EDT Office Visit Gynecology/Obstetric s Shanna Topete [address] [place] [address] Indira Cleveland CRNP [address] [place] [address] Encounter for supervision of other normal , [...] Dispensed Refills Start Date End Date Status 29-1 MG Oral Tablet Chewable Take by [...] money to get more. Never true 01/19/2023 Industry Depression Scale Answer Date Recorded Industry Depression Scale Total 9 04/03/2023 The thought [...] Reading Time Taken Comments Blood Pressure 100/60 09/14/2023 1:38 PM EDT Pulse - - Temperature - - Respiratory Rate - - Oxygen Saturation - - Inhaled Oxygen Concentration - - Weight 110.2 kg (243 lb) 09/14/2023 1:38 PM EDT Height - - Body Mass Index 35.88 08/13/2023 8:08 AM EST documented in this encounter Progress Notes * Indira Cleveland CRNP - 09/14/2023 2:02 PM EDT 33w Had growth u/s today, 97th percentile. Recommend repeat 3hr GTT, she is agreeable. No other concerns. Baby is active. No contractions, bleeding, LOF. AD Miguel * Jaqueline Chery LPN - 09/14/2023 1:38 PM EDT 33w0d Denies vaginal bleeding/rom + movement Growth US today 2697gm 97% DEYSI 18.4cm documented in this encounter Plan of Treatment Upcoming Encounters Date Type Department Care Team (Late st Contact Info) Description 09/14/2023 2:30 PM EDT Pharmacy Pharmacy, [place] [address] [facility] [place] [address] Clinic, [facility]emia [facility] [place] [address] Iron deficiency anemia, unspecified iron deficiency anemia type* 09/19/2023 1:00 PM EDT Laboratory Laboratory, [facility] [address] [place] [phone] [facility] [place] [address] 09/28/2023 2:30 PM EDT Office [facility] 132 [place] [address] Claire Caballero PA-C [address] [place] [address] [place] [address] 10/09/2023 1:30 PM EDT [facility] [address] [place] [address] Khris Topete [address] [place] [address] 10/09/2023 2:15 PM EDT Office Visit Gynecology/Obstetric s Shanna Topete [address] [place] [address] Indira Cleveland CRNP [address] [place] [address] 10/10/2023 9:30 AM EDT Pharmacy Pharmacy, [address] [address] 10/16/2023 3:00 PM EDT Office Visit Gynecology/Obstetric s Shanna Topete [address] [place] [address] Praveen Carranza MD [address] [place] [address] 10/24/2023 3:00 PM EDT Office Visit Gynecology/Obstetric s Shanna Topete [address] [place] [address] Praveen Carranza MD [address] [place] [address] 10/29/2023 8:45 AM EDT Office Visit Gynecology/Obstetric s Shanna Topete [address] [place] [address] Praveen Carranza MD [address] [place] [address] 05/12/2024 10:00 AM EST Office Visit Family Practice [facility] [address] [place] [address] Malinda Owens CRNP [address] [place] [address] Scheduled Orders Name Type Priority Associated Diagnoses Orde r Schedule GESTATIONAL GLUCOSE TOLERANCE, 3 HOUR Lab Routine Encounter for supervision of other normal , unspecified trimester Excessive growth affecting management of , antepartum, single or unspecified fetus Expected: 09/15/2023 (Approximate), Expires: 09/13/2024 Health Maintenance Due Date Last Done Comments [...] of , antepartum, single or unspecified fetus Iron deficiency anemia, unspecified iron deficiency anemia type- Primary documented in this encounter
--- OUTSIDE RECORDS SUMMARY | 2023-10-30 18:03 | External Medical Summary | Summary of Care ---
Author Name Unknown Organization [facility] Address [address] [place] [facility] [place] [address] Phone [phone] Care Team Providers Care Costume Rental Clerk Name Role Phone Unavailable Primary Care Provider Unavailabl e Reason for Visit * Reason Onset Date Comments Test Results 09/14/2023 Unexpected or In determinate Result Encounter Details Date Type Department Care Team (Late st Contact Info) Description 09/14/2023 Telephone Gynecology/Obstetrics [facility] [address] [place] [address] Yvrose Seymour CRNP [address] [place] [address] Test Results (Unexpected or Indeterminate ... Allergies No known active allergiesdocumented as of this encounter (statuses as of 09/17/2023) Medications Medication Sig Dispensed Refills Start Date [...] as of this encounter (statuses as of 09/17/2023) Active Problems Problem Noted Date Diagnosed Date [...] as of this encounter (statuses as of 09/17/2023) Resolved Problems Problem Noted Date Diagnosed Date Resolved Date Abnormal glucose tolerance i n mother complicating 04/19/2023 08/31/2023 Overview: Failed early glucola. 3hr GTT ordered documented as of this encounter (statuses as of 09/17/2023) Immunizations Name Administration Dates Next Due DTP [...] money to get more. Never true 01/19/2023 Arp Depression Scale Answer Date Recorded Arp Depression Scale Total 9 04/03/2023 The thought [...] encounter Miscellaneous Notes * Telephone Encounter - Yvrose Seymour CRNP - 09/17/2023 7:34 AM EDT This was addressed at her last office visit on 09/13. AD Ritchie * Telephone Encounter - Shelia Armstrong OSA - 09/14/2023 4:08 PM EDT Fermin- The radiologist discovered an unexpected or indeterminate finding on Yuli Gutierrez ([id number]) and asks that you review the following report. Study Type: US PREG FOLLOW-UP EACH FETUS Date of Study: 09/14/2023 IMPRESSION 1. Large for gestational age. Composite age 35 weeks 1 day and growth 2 weeks and 1 day advanced based on current gestational age from 1st ultrasound. 2. Normal DEYSI 3. Vertex presentation. Please respond to this encounter to acknowledge receipt of this message and take responsibility to ensure this report is reviewed. Thank you, THOMAS Soto Client Service Rep [facility] documented in this encounter Plan of Treatment Upcoming Encounters Date Type Department Care Team (Late st Contact Info) Description 09/19/2023 1:00 PM EDT Laboratory Laboratory, [facility] 132 [place] [phone] Khris Topete [address] [place] [address] 09/28/2023 2:30 PM EDT Office Visit Gynecology/Obstetrics [facility] [place] [address] Claire Caballero PA-C [address] [place] [address] [place] [address] 10/09/2023 1:30 PM EDT Laboratory Laboratory, [facility] 132 [place] [phone] Khris Topete 132 [place] [address] 10/09/2023 2:15 PM EDT Office Visit Gynecology/Obstetrics [facility] [address] [place] [address] Indira Cleveland CRNP [address] [place] [address] 10/10/2023 9:30 AM EDT Pharmacy Pharmacy, [address] [address] Clinic, [place] [address] [address] [place], [place] [id number] 10/16/2023 3:00 PM EDT Office Visit Gynecology/Obstetrics [facility] [address] [place] [address] Praveen Carranza MD [address] [place] [address] 10/24/2023 3:00 PM EDT Office Visit Gynecology/Obstetrics [facility] [address] [place] [address] Praveen Carranza MD [address] [place] [address] 10/29/2023 8:45 AM EDT Office Visit Gynecology/Obstetrics [facility] [address] [place] [address] Praveen Carranza MD [address] [place] [address] 05/12/2024 10:00 AM EST Office Visit Family Practice [facility] [address] [place] [address] Malinda Owens CRNP [address] [place] [address] Health Maintenance Due Date Last Done Comments [...]
--- OUTSIDE RECORDS SUMMARY | 2023-10-30 18:03 | External Medical Summary | Summary of Care ---
Author Name Unknown Organization [facility] Address [address] [facility] [address] Phone [phone] Care Team Providers Care Thrasher Feeder Name Role Phone Unavailable Primary Care Provider Unavailabl e Reason for Visit * Reason Onset Date Comments Test Results 09/14/2023 Unexpected or In determinate Result Encounter Details Date Type Department Care Team (Late st Contact Info) Description 09/14/2023 Telephone Gynecology/Obstetrics [facility] [address] [place] [address] Yvrose Seymour CRNP [address] [facility] [place] [address] Test Results (Unexpected or Indeterminate ... Allergies No known active allergiesdocumented as of this encounter (statuses as of 09/14/2023) Medications Medication Sig Dispensed Refills Start Date End Date Status -1 MG Oral Tablet Chewable Take by [...] money to get more. Never true 01/19/2023 Parsons Depression Scale Answer Date Recorded Parsons Depression Scale Total 9 04/03/2023 The thought [...] encounter Miscellaneous Notes * Telephone Encounter - Shelia Armstrong OSA - 09/14/2023 4:08 PM EDT [place]- The radiologist discovered an unexpected or indeterminate finding on Yuli Matt ([id number]) and asks that you review the following [...] Thank you, THOMAS Soto Client Service Rep [facility] documented in this encounter Plan of Treatment Upcoming Encounters Date Type Department Care Team (Late st Contact Info) Description 09/19/2023 1:00 PM EDT Laboratory Laboratory, [facility] [address] [place] [phone] Khris Topete [facility] [place] [address] 09/28/2023 2:30 PM EDT Office Visit Gynecology/Obstetrics [facility] [place] [address] Claire Caballero PA-C [address] [place] [address] 10/09/2023 1:30 PM EDT Laboratory Laboratory, [facility] [address] [place] [phone] Khris Topete [facility] [place] [address] 10/09/2023 2:15 PM EDT Office Visit Gynecology/Obstetrics [facility] [address] [place] [address] Indira Cleveland CRNP [address] [place] [address] 10/10/2023 9:30 AM EDT Pharmacy Pharmacy, [place] [address] [place] [address] [place] [address] [place] [address] 10/16/2023 3:00 PM EDT Office Visit Gynecology/Obstetrics [facility] [address] [place] [address] Praveen Carranza MD [address] [place] [address] 10/24/2023 3:00 PM EDT Office Visit Gynecology/Obstetrics [facility] [address] [place] [address] Praveen Carranza MD [address] [place] [address] 10/29/2023 8:45 AM EDT Office Visit Gynecology/Obstetrics [facility] [address] [place] [address] Praveen Carranza MD [address] [place] [address] 05/12/2024 10:00 AM EST Office Visit Family Practice [facility] [address] [place] [address] Malinda Owens CRNP [address] [place] [address] Health Maintenance Due Date Last Done Comments [...]
--- OUTSIDE RECORDS SUMMARY | 2023-10-30 18:03 | External Medical Summary ---
Author Name Unknown Address Unknown Organization K0G:LAB[facility]ORY [facility] [place] [address] [place] [address] Laboratory Report Ordering Provider Test Date Status KELSI LR 09/19/2023 13:52:29 Final Observation Date Value Abnormality Reference (Units ) Status Glucose [Mass/volume] in Serum or Plasma --1 hour post dose glucose 09/19/2023 13:52:29 216 Above high normal 70-179 (mg/dL) Final Performing Location LAB[facility]ATORY [facility] [place] [address] [place] [address]
--- OUTSIDE RECORDS SUMMARY | 2023-10-30 18:04 | External Medical Summary | Summary of Care ---
Author Name Unknown Organization [facility] Address [address] [place] [facility] [place] [address] Phone [phone] Care Team Providers Care Fruit Culler Name Role Phone Unavailable Primary Care Provider Unavailabl e Reason for Visit * Reason Comments IV Therapy Venofer 08/18 Encounter Details Date Type Department Care Team (Latest Contact Info) Description 09/07/2023 2:00 PM EDT Hem/Onc Treatment Hematology/Oncology Treatment, [address] [address] [place], Chair 11 Hem Onc [address] [address] Antepartum anemia complicating *; Iron deficiency anemia, unspecified iron deficiency anemia type Allergies No known active allergiesdocumented as of this encounter (statuses as of 09/07/2023) Medications Medication Sig Dispensed Refills Start Date [...] as of this encounter (statuses as of 09/07/2023) Active Problems Problem Noted Date Diagnosed Date [...] as of this encounter (statuses as of 09/07/2023) Resolved Problems Problem Noted Date Diagnosed Date Resolved Date Abnormal glucose tolerance i n mother complicating 04/19/2023 08/31/2023 Overview: Failed early glucola. 3hr GTT ordered documented as of this encounter (statuses as of 09/07/2023) Immunizations Name Administration Dates Next Due DTP [...] money to get more. Never true 01/19/2023 [place] Depression Scale Answer Date Recorded [place] Depression Scale Total 9 04/03/2023 The thought [...] Care Team (Late st Contact Info) Description 09/10/2023 2:30 PM EDT Pharmacy Pharmacy, [place] [address] [place] [address] Clinic, [place] [address] [place] [address] 09/14/2023 1:15 PM EDT Imaging Radiology [facility] [address] [place] [address] 09/14/2023 2:15 PM EDT Office Visit Gynecology/Obstetrics [facility] [address] [place] [address] Indira [place] CRNP [address] [place] [address] 09/28/2023 2:30 PM EDT Office Visit Gynecology/Obstetrics [facility] [address] [place] [address] Claire Caballero PA-C [address] [place] [address] [place] [address] 10/09/2023 2:15 PM EDT Office Visit Gynecology/Obstetrics [facility] [address] [place] [address] Indira [place] CRNP [address] [place] [address] 10/16/2023 3:00 PM EDT Office Visit Gynecology/Obstetrics [facility] [address] [place] [address] Praveen Carranza MD [address] [place] [address] 10/24/2023 3:00 PM EDT Office Visit Gynecology/Obstetrics [facility] [address] [place] [address] Praveen Carranza MD [address] [place] [address] 10/29/2023 8:45 AM EDT Office Visit Gynecology/Obstetrics [facility] [address] [place] [address] Praveen Carranza MD [address] [place] [address] 05/12/2024 10:00 AM EST Office Visit Family Practice [facility] [address] [place] [address] Malinda Owens CRNP [address] [place] [address] Health Maintenance Due Date Last Done Comments [...] type documented in this encounter Administered Medications Active Administered Medications - up to 3 most recent administrations Medication Order MAR Action Action Date Dose Rate Site diphenhydrAMINE (Benadryl) inj 50 mg 50 mg, IV Push, ONCE PRN Other, Hypersensitivity Reaction, Starting on Sun09/07/23 at 1413, Until 09/08/23 at 1412, For 24 hours EPINEPHrine 1 MG/ML inj 0.3 mg 0.3 mg, Intramuscular, ONCE PRN Other, Hypersensitivity Reaction or Anaphylaxis, Starting on Sun09/07/23 at 1413, Until 09/08/23 at 1412, For 24 hours hEParin 100 UNIT/ML Lock Flush inj 500 Units 500 Units (5 mL), IV Lock, PRN Other, IV Flush, Starting on Sun09/07/23 at 1413, Until 09/08/23 at 1412, For 24 hours, Do not flush if lock, PICC, or central line not in place; IV infusing or unable to flush. Hydrocortisone Sod Suc (PF) (Solu-Cortef) inj 100 mg 100 mg, IV Push, ONCE PRN Other, Hypersensitivity Reaction, Starting on Sun09/07/23 at 1413, Until 09/08/23 at 1412, For 24 hours NSS infusion 500 mL, Intravenous, at 50 mL/hr, CONTINUOUS, Starting on Sun09/07/23 at 1515, Until 09/08/23 at 0114 Start Infusion 09/07/2023 2:12 PM EDT 500 mL 50 mL/hr oxygen GAS Inhalation, OXYGEN, First dose on Sun09/07/23 at 1600, Until Discontinued, Device/Managed by: Low Flow Device, Goal SPO2 (%): 91-95, Starting Device: Nasal Cannula, Initial Flow Rate (LPM): 2, Lowest Support: Nasal Cannula: Flow 0-6 LPM. Titrate up/down by 1 LPM., Higher Support: Non-Rebreather (NRB) Mask: Minimum of 10 LPM. Titrate to maintain bag inflation., Titration Interval: Q2 minutes and as needed., Notify Provider: For sudden DECREASE in resting SPO2 to less than 85% and when escalating delivery device., Wean patient off Oxygen when the oxygen saturation is greater than or equal to 93% sodium chloride 0.9 % flush central line 10 mL 10 mL, IV Push, PRN Other, IV Flush, Starting on Sun09/07/23 at 1413, Until 09/08/23 at 1412, For 24 hours, Do not flush if lock, PICC, or central line not in place; IV infusing or unable to flush. Inactive Administered Medications - up to 3 most recent administrations Medication Order MAR Action Action Date Dose Rate Site Iron Sucrose (Venofer) 300 mg in NSS 250 mL ivpb 300 mg, IV Piggyback, ONCE, 1 dose, On Sun09/07/23 at 1545, Administer over 90 Minutes Start Infusion 09/07/2023 2:12 PM EDT 300 mg 166.67 mL/hr documented in this encounter
--- OUTSIDE RECORDS SUMMARY | 2023-10-30 18:04 | External Medical Summary | Summary of Care ---
Author Name Unknown Organization [facility] Address [address] [place] [place] [address] Phone [phone] Care Team Providers Care Operational Intelligence Officer Name Role Phone Unavailable Primary Care Provider Unavailabl e Reason for Visit * Reason Comments IV Therapy Venofer. Encounter Details Date Type Department Care Team (Latest Contact Info) Description 08/24/2023 2:00 PM EST Hem/Onc Treatment Hematology/Oncology Treatment, [place] [address] [place] [address] Antepartum anemia complicating *; Iron deficiency anemia, unspecified iron deficiency anemia type Allergies No known active allergiesdocumented as of this encounter (statuses as of 08/24/2023) Medications Medication Sig Dispensed Refills Start Date [...] as of this encounter (statuses as of 08/24/2023) Active Problems Problem Noted Date Diagnosed Date Iron deficiency anemia 08/21/2023 Antepartum anemia complicating 024 Overview: Needs IV iron infusons Abnormal glucose tolerance in mother complicatin g 04/19/2023 Overview: Failed early glucola. 3hr GTT ordered Encounter for supervision of other normal , unspecified trimester 04/03/2023 Class 1 obesity due to exces s calories without serious comorbidity with body mass index (BMI) of 33.0 to 33.9 in adult 04/03/2023 Overview: Early glucola Estimated Date of Delivery Comme nts Yes 11/02/2023 Based on Ultraso und documented as of this encounter (statuses as of 08/24/2023) Immunizations Name Administration Dates Next Due DTP [...] money to get more. Never true 01/19/2023 [place] Depression Scale Answer Date Recorded [place] Depression Scale Total 9 04/03/2023 The thought [...] in this encounter Nursing Notes * Lakia Donald, TAMIKO - 08/24/2023 3:41 PM EST Goals: Patient [...] Care Team (Late st Contact Info) Description 08/29/2023 10:00 AM EDT Pharmacy Pharmacy, [address] [address] Clinic, [address] [address] 08/31/2023 8:30 AM EDT Office Visit Gynecology/Obstetrics [facility] [address] [facility] [address] [place], [place] [address] [place] [place] [address] 08/31/2023 10:15 AM EDT Hem/Onc Treatment Hematology/Oncology [address], [address] [phone] [place], Chair [address] [facility] [address] [place] [address] [place] [address] 09/07/2023 2:00 PM EDT Hem/Onc Treatment Hematology/Oncology Treatment, [address] [phone] [place], Chair 11 Hem Onc [place] [address] [facility] [place] [address] 05/12/2024 10:00 AM EST Office Visit Family Practice [facility] [address] [place] [address] Malinda Owens CRNP [address] [place] [address] Health Maintenance Due Date Last Done Comments [...] ONCE PRN Other, Hypersensitivity Reaction, Starting on 08/24/23 at 1411, Until 08/25/23 at 1410, For 24 hours EPINEPHrine 1 MG/ML inj 0.3 mg 0.3 mg, Intramuscular, ONCE PRN Other, Hypersensitivity Reaction or Anaphylaxis, Starting on 08/24/23 at 1411, Until 08/25/23 at 1410, For 24 hours hEParin 100 UNIT/ML Lock Flush inj 500 Units 500 Units (5 mL), IV Lock, PRN Other, IV Flush, Starting on Sun08/24/23 at 1411, Until 08/25/23 at 1410, For 24 hours, Do not flush if lock, PICC, or central line not in place; IV infusing or unable to flush. Hydrocortisone Sod Suc (PF) (Solu-Cortef) inj 100 mg 100 mg, IV Push, ONCE PRN Other, Hypersensitivity Reaction, Starting on Sun08/24/23 at 1411, Until 08/25/23 at 1410, For 24 hours NSS infusion 500 mL, Intravenous, at 50 mL/hr, CONTINUOUS, Starting on Sun08/24/23 at 1515, Until 08/25/23 at 0114 Start Infusion 08/24/2023 2:10 PM EST 500 mL 50 mL/hr oxygen GAS Inhalation, OXYGEN, First dose on Sun08/24/23 at 1600, Until Discontinued, Device/Managed by: Low [...] Push, PRN Other, IV Flush, Starting on Sun08/24/23 at 1411, Until 08/25/23 at 1410, For 24 hours, Do not flush if [...] 2:10 PM EST 300 mg 166.67 mL/hr documented in this encounter
--- OUTSIDE RECORDS SUMMARY | 2023-10-30 18:04 | External Medical Summary | Summary of Care ---
Author Name Unknown Organization [facility] Address [address] [place] [address] Phone [phone] Care Team Providers Care Lead Mason Tender Name Role Phone Unavailable Primary Care Provider Unavailabl e Reason for Visit * Reason Comments Infusion Venofer 2/3 Encounter Details Date Type Department Care Team (Latest Contact Info) Description 08/31/2023 10:15 AM EDT Hem/Onc Treatment Hematology/Oncology Treatment, [address] [address] [place], Chair 10 Hem On[address] [address] Antepartum anemia complicating *; Iron deficiency anemia, unspecified iron deficiency anemia type Allergies No known active allergiesdocumented as of this encounter (statuses as of 08/31/2023) Medications Medication Sig Dispensed Refills Start Date [...] as of this encounter (statuses as of 08/31/2023) Active Problems Problem Noted Date Diagnosed Date [...] as of this encounter (statuses as of 08/31/2023) Resolved Problems Problem Noted Date Diagnosed Date Resolved Date Abnormal glucose tolerance i n mother complicating 04/19/2023 08/31/2023 Overview: Failed early glucola. 3hr GTT ordered documented as of this encounter (statuses as of 08/31/2023) Immunizations Name Administration Dates Next Due DTP [...] money to get more. Never true 01/19/2023 [place] Depression Scale Answer Date Recorded [place] Depression Scale Total 9 04/03/2023 The thought [...] Care Team (Late st Contact Info) Description 09/07/2023 2:00 PM EDT Hem/Onc Treatment Hematology/Oncology Treatment, [address] [phone] [place], Chair 11 Hem On[address] [address] 09/10/2023 2:30 PM EDT Pharmacy Pharmacy, [place] [address] [place] [address] Clinic, [facility] [address] [place] [address] 09/14/2023 1:15 PM EDT Imaging Radiology [facility] [address] 09/14/2023 2:15 PM EDT Office Visit Gynecology/Obstetrics [facility] [place] [address] Indira [place] CRNP [facility] [address] 09/28/2023 2:30 PM EDT Office Visit Gynecology/Obstetrics [facility] [address] [place] [address] Claire Caballero PA-C [address] [place] [address] [place] [address] 10/09/2023 2:15 PM EDT Office Visit Gynecology/Obstetrics [facility] [address] [place] [address] Indira [place] CRNP [address] [place] [address] 10/16/2023 3:00 PM EDT Office Visit Gynecology/Obstetrics [facility] [address] [place] [address] Praveen Carranza MD [address] [place] [address] 10/24/2023 3:00 PM EDT Office Visit Gynecology/Obstetrics [facility] [address] [place] [address] Praveen Carranza MD [address] [place] [address] 10/29/2023 8:45 AM EDT Office Visit Gynecology/Obstetrics [facility] [address] [place] [address] Praveen Carranza MD [address] [place] [address] 05/12/2024 10:00 AM EST Office Visit Family Practice [facility] [address] [place] [address] Malinda Owens CRNP [address] [place] [address] Health Maintenance Due Date Last Done Comments [...] ONCE PRN Other, Hypersensitivity Reaction, Starting on Sun08/31/23 at 1027, Until 09/01/23 at 1026, For 24 hours EPINEPHrine 1 MG/ML inj 0.3 mg 0.3 mg, Intramuscular, ONCE PRN Other, Hypersensitivity Reaction or Anaphylaxis, Starting on Sun08/31/23 at 1027, Until 09/01/23 at 1026, For 24 hours hEParin 100 UNIT/ML Lock Flush inj 500 Units 500 Units (5 mL), IV Lock, PRN Other, IV Flush, Starting on Sun08/31/23 at 1027, Until 09/01/23 at 1026, For 24 hours, Do not flush if lock, PICC, or central line not in place; IV infusing or unable to flush. Hydrocortisone Sod Suc (PF) (Solu-Cortef) inj 100 mg 100 mg, IV Push, ONCE PRN Other, Hypersensitivity Reaction, Starting on Sun08/31/23 at 1027, Until 09/01/23 at 1026, For 24 hours NSS infusion 500 mL, Intravenous, at 50 mL/hr, CONTINUOUS, Starting on Sun08/31/23 at 1130, Until Sun08/31/23 at 2129 Start Infusion 08/31/2023 10:37 AM EDT 500 mL 50 mL/hr oxygen GAS Inhalation, OXYGEN, First dose on Sun08/31/23 at 1100, Until Discontinued, Device/Managed by: Low Flow Device, [...] Push, PRN Other, IV Flush, Starting on Sun08/31/23 at 1027, Until 09/01/23 at 1026, For 24 hours, Do not flush if [...] 10:37 AM EDT 300 mg 166.67 mL/hr documented in this encounter
--- OUTSIDE RECORDS SUMMARY | 2023-10-30 18:04 | External Medical Summary | Summary of Care ---
Author Name Unknown Organization [facility] Address [address] [place] [address] Phone [phone] Care Team Providers Care Electric Arc Furnace Operator Name Role Phone Unavailable Primary Care Provider Unavailabl e Reason for Visit * Reason Onset Date Comments Anemia Follow-Up 08/29/2023 Encounter Details Date Type Department Care Team (Late st Contact Info) Description 08/29/2023 10:00 AM EDT Pharmacy Pharmacy, [place] [address] [place] [address] Clinic, [place] [address] [place] [address] Iron deficiency anemia, unspecified iron deficiency anemia type* Allergies No known active allergiesdocumented as of this encounter (statuses as of 08/29/2023) Medications Medication Sig Dispensed Refills Start Date [...] as of this encounter (statuses as of 08/29/2023) Active Problems Problem Noted Date Diagnosed Date [...] as of this encounter (statuses as of 08/29/2023) Immunizations Name Administration Dates Next Due DTP [...] money to get more. Never true 01/19/2023 [place] Depression Scale Answer Date Recorded [place] Depression Scale Total 9 04/03/2023 The thought [...] as of this encounter Progress Notes * Judy Briggs [facility] - 08/29/2023 3:17 PM EDT Patient received first dose of Venofer 300 mg x 3 repletion series on 08/23 and appeared to have tolerated it without issue. Next scheduled: 08/30 Scheduled to be completed: 09/06 GA: 30w5d Estimated Date of Delivery: 11/02/23 Follow-up after completion of series to schedule repeat labs if appropriate prior to delivery. Anemia Clinic will continue to follow. Thank you for allowing us to participate in the care of thispatient. Thanks, Judy Briggs [facility] Clinical Pharmacist [facility] Anemia [facility] (P: [phone]) 08/29/2023 3:17 PM documented in this encounter Plan of Treatment Upcoming Encounters Date Type Department Care Team (Late st Contact Info) Description 08/31/2023 8:30 AM EDT Office Visit Gynecology/Obstetrics [facility] 132 [place] [address] Yvrose Seymour CRNP 132 [place] [address] 08/31/2023 10:15 AM EDT Hem/Onc Treatment Hematology/Oncology Treatment, [address] [place] [phone] [place], Chair 10 Hem On[address] [place] [address] 09/07/2023 2:00 PM EDT Hem/Onc Treatment Hematology/Oncology Treatment, [address] [place] [phone] [place], Chair 11 Hem Onc [address] [address] 09/10/2023 2:30 PM EDT Pharmacy Pharmacy, [place] [address] [place], [place] [id number] Clinic, [facility] [address] [place] [address] 05/12/2024 10:00 AM EST Office Visit Family Practice [facility] 132 [place] [address] Malinda Owens CRNP 132 [place] [address] Health Maintenance Due Date Last Done Comments [...]
--- OUTSIDE RECORDS SUMMARY | 2023-10-30 18:04 | External Medical Summary | Summary of Care ---
Author Name Unknown Organization [facility] Address [address] [facility] [address] Phone [phone] Care Team Providers Care Barrel Loader Name Role Phone Unavailable Primary Care Provider Unavailabl e Reason for Visit * Reason Comments Return Visit Encounter Details Date Type Department Care Team (Late st Contact Info) Description 08/31/2023 8:30 AM EDT Office Visit Gynecology/Obstetric s [facility] [address] [place] [address] Yvrose Seymour CRNP [address] [place] [address] Encounter for supervision of other normal , unspecified trimester*; Class 1 obesity due to excess calories without serious comorbidity with body mass index (BMI) of 33.0 to 33.9 in adult; Antepartum anemia complicating ; Uterine size date discrepancy Allergies No known active allergiesdocumented as of [...] money to get more. Never true 01/19/2023 [place] Depression Scale Answer Date Recorded [place] Depression Scale Total 9 04/03/2023 The thought [...] Sign Reading Time Taken Comments Blood Pressure 118/70 08/31/2023 8:24 AM EDT Pulse - - Temperature - - Respiratory Rate - - Oxygen Saturation - - Inhaled Oxygen Concentration - - Weight 108.9 kg (240 lb) 08/31/2023 8:24 AM EDT Height - - Body Mass Index 35.44 08/13/2023 8:08 AM EST documented in this encounter Progress Notes * Jaqueline Chery LPN - 08/31/2023 8:23 AM EDT 31w0d Denies vaginal bleeding/rom + movement No new concerns * Yvrose Seymour CRNP - 08/31/2023 8:22 AM EDT 31w0d Baby moving well, reviewed [facility] and when to call. No bleeding/ctx. Receiving iron infusions; feeling more energetic. S>D, will get growth scan. Discussed choosing peds. 2 week return AD Ritchie documented in this encounter Plan of Treatment Upcoming Encounters Date Type Department Care Team (Late st Contact Info) Description 08/31/2023 10:15 AM EDT Hem/Onc Treatment Hematology/Oncology Treatment, [address] [place] [phone] [place], Chair [address] Hem [address] [place] [address] 09/07/2023 2:00 PM EDT Hem/Onc Treatment Hematology/Oncology Treatment, [address] [place] [address] [place], Chair 11 Hem Onc [address] [place] [address] 09/10/2023 2:30 PM EDT Pharmacy Pharmacy, [place] [address] [place] [address] Clinic, [facility] [address] 09/14/2023 1:15 PM EDT Imaging Radiology [facility] 132 [facility] [place] [id number] 09/14/2023 2:15 PM EDT Office Visit Gynecology/Obstetrics [facility] [address] [place] [address] Indira [place] CRNP [address] [place] [address] 09/28/2023 2:30 PM EDT Office Visit Gynecology/Obstetrics [facility] [address] [place] [address] Claire Caballero PA-C [address] [place] [address] [place] [address] 10/09/2023 2:15 PM EDT Office Visit Gynecology/Obstetrics [facility] [address] [place] [address] Indira [place] CRNP [address] [place] [address] 10/16/2023 3:00 PM EDT Office Visit Gynecology/Obstetrics [facility] [address] [place] [address] Praveen Carranza MD [address] [place] [address] 10/24/2023 3:00 PM EDT Office Visit Gynecology/Obstetrics [facility] [address] [place] [address] Praveen Carranza MD [address] [place] [address] 10/29/2023 8:45 AM EDT Office Visit Gynecology/Obstetrics [facility] [address] [place] [address] Praveen Carranza MD [address] [place] [address] 05/12/2024 10:00 AM EST Office Visit Family Practice [facility] [address] [place] [address] Malinda Owens CRNP [address] [place] [address] Scheduled Orders Name Type Priority Associated Diagnoses Orde r Schedule US PREG FOLLOW-UP EACH FETUS Medical Imaging Routine Encounter for supervision of other normal , unspecified trimester Uterine size date discrepancy Expected: 08/31/2023 (Approximate), Expires: 09/30/2024 Health Maintenance Due Date Last Done Comments [...] in adult Antepartum anemia complicating Anemia, antepartum Uterine size date discrepancy Uterine size date discrepancy, antepartum condition or complication documented in this encounter
--- OUTSIDE RECORDS SUMMARY | 2023-10-30 18:05 | External Medical Summary | Summary of Care ---
Author Name Unknown Organization [facility] Address [address] [facility] [place] [address] Phone [phone] Care Team Providers Care Wireless Internet Installer Name Role Phone Unavailable Primary Care Provider Unavailabl e Encounter Details Date Type Department Care Team (Late st Contact Info) Description 08/21/2023 Orders Only [facility] [address] [place] [address] Indira [place] CRNP [address] [place] [address] Antepartum anemia complicating * Allergies No known active allergiesdocumented as of this encounter (statuses as of 08/21/2023) Medications Medication Sig Dispensed Refills Start Date [...] as of this encounter (statuses as of 08/21/2023) Active Problems Problem Noted Date Diagnosed Date [...] as of this encounter (statuses as of 08/21/2023) Immunizations Name Administration Dates Next Due DTP [...] money to get more. Never true 01/19/2023 [place] Depression Scale Answer Date Recorded [place] Depression Scale Total 9 04/03/2023 The thought [...] Care Team (Late st Contact Info) Description 08/21/2023 4:00 PM EST Pharmacy Pharmacy, [place] [address] [place] [address] Clinic, Anemia [address] [place] [address] Iron deficiency anemia, unspecified iron deficiency anemia type* 08/29/2023 10:00 AM EDT Pharmacy Pharmacy, [place] [address] [place] [address] Clinic, Anemia [address] [place] [address] 08/31/2023 8:30 AM EDT Office Visit Gynecology/Obstetric s [facility] [address] [place] [address] Yvrose Seymour CRNP [address] [place] [address] 05/12/2024 10:00 AM EST Office Visit Family Practice [facility] [address] [place] [address] Malinda Owens CRNP [address] [place] [address] Health Maintenance Due Date Last Done Comments [...] anemia, unspecified iron deficiency anemia type- Primary Antepartum anemia complicating - Primary Anemia, antepartum documented in this encounter
--- OUTSIDE RECORDS SUMMARY | 2023-10-30 18:05 | External Medical Summary | Summary of Care ---
Author Name Unknown Organization [facility] Address [address] [place] [address] Phone [phone] Care Team Providers Care Locksmith Apprentice Name Role Phone Unavailable Primary Care Provider Unavailabl e Reason for Visit * Reason Onset Date Comments Anemia Follow-Up 08/21/2023 * Evaluate & Treat - Unlimited Visits (Within 10 days (routine)) - Pending Review Specialty Diagnoses / Procedures Referred By Contjeffery t Referred To Contact Pharmacist / Pharmacy Diagnoses ROSSANA (iron deficiency anemia) Indira Cleveland CRNP [address] [place] [address] Referral ID Status Reason Start Date Expiration Date Visits Requested Visits Authorized [id number] Pending Review Specialty Services Required 08/14/2023 99 99 Encounter Details Date Type Department Care Team (Late st Contact Info) Description 08/21/2023 4:00 PM [facility] Pharmacy Pharmacy, [place] [address] [place], [place] [id number] Clinic, Anemia [address] [place] [address] Iron deficiency anemia, unspecified iron deficiency anemia [...] money to get more. Never true 01/19/2023 [place] Depression Scale Answer Date Recorded [place] Depression Scale Total 9 04/03/2023 The thought [...] of this encounter Progress Notes * Judy Iniguez, [facility] - 08/21/2023 1:11 PM EST Patient Phone Numbers Patient referred by AD Aguiar for evaluation of anemia by the Anemia Clinic. Called patient to introduce role/clinic and to review labs from 08/13. Hgb: 10.7 g/dL TSAT: 24 % Ferritin: 19 ng/mL B12: 160 pg/mL FA: >20.0 ng/mL GA: 29w4d Estimated Date of Delivery: 11/02/23 Hgb is below target range for the third trimester. Iron studies within target range. B12 level below target range. FA level within target range. Per chart review, patient is taking B12 1000mcg daily and appears to be tolerating it well. Patientreports feeling kind of blah depending on the day. Some days worse than others. Patient qualifies for IV iron repletion. Plan: Venofer 300 mg IV weekly x 3 doses at . Orders placed and routed to appropriate parties. Patient agreeable to intervention. Follow-up labs to be scheduled ~4-6 weeks after iron repletion completed if appropriate prior to delivery. Anemia Clinic will continue to follow. Thank you for allowing us to participate in the care of thispatient. Thanks, Judy Iniguez [facility] Clinical Pharmacist [facility] Anemia Clinic (P: [phone]) 08/21/2023 1:12 PM documented in this encounter Miscellaneous Notes * Addendum Note - Judy Iniguez RPh - 08/21/2023 2:21 PM ESTAddended by: JUDY INIGUEZ on: 08/21/2023 02:21 PM Modules accepted: Orders documented in this encounter Plan of Treatment Upcoming Encounters Date Type Department Care Team (Late st Contact Info) Description 08/29/2023 10:00 AM EDT Pharmacy Pharmacy, [place] [address] [place] [address] Clinic, Anemia [facility] [place] [address] 08/31/2023 8:30 AM EDT Office Visit Gynecology/Obstetrics [facility] [address] [facility] [place] [address] Yvrose Seymour CRNP [address] [place] [address] 05/12/2024 10:00 AM EST Office Visit Family Practice [facility] [address] [place] [address] Malinda Owens CRNP [address] [place] [address] Scheduled Referrals Name Type Priority Associated Diagnoses Orde r Schedule PHARMACIST MEDS THERAPY MGMT REFERRAL OP Referral Within 10 days (routine) ROSSANA (iron deficiency anemia) Ordered: 08/14/2023 Health Maintenance Due Date Last Done Comments [...]
--- OUTSIDE RECORDS SUMMARY | 2023-10-30 18:05 | External Medical Summary | Summary of Care ---
Author Name Unknown Organization [facility] Address [address] [place] [address] Phone [phone] Care Team Providers Care Certifed Refrigeration Operator Name Role Phone Unavailable Primary Care Provider Unavailabl e Reason for Referral * Evaluate & Treat - Unlimited Visits (Within 10 days (routine)) - Pending Review Specialty Diagnoses / Procedures Referred By Bennie t Referred To Contact Pharmacist / Pharmacy Diagnoses ROSSANA (iron deficiency anemia) Indira Cleveland CRNP [address] [place] [address] Referral ID Status Reason Start Date Expiration Date Visits Requested Visits Authorized [id number] Pending Review Specialty Services Required 08/14/2023 99 99 Question Answer Referral Priority Within 10 days (routine) Where should this appointment be scheduled? [facility] Referring Provider Role: Specialist Specialty: oil well driller Reason for Referral: Anemia Comments Pharmacist Medication Therapy Management: Iron deficiency anemia Bryce Brar RN Reason for Visit * Reason Onset Date Comments Blood Management Program 08/14/2023 Encounter Details Date Type Department Care Team (Late st Contact Info) Description 08/14/2023 Telephone Patient Blood Management, [place] [address] [place] [address] Indira Cleveland CRNP [address] [place] [address] Blood Management Program Allergies No known active allergiesdocumented as of this encounter (statuses as of 08/23/2023) Medications Medication Sig Dispensed Refills Start Date [...] as of this encounter (statuses as of 08/23/2023) Active Problems Problem Noted Date Diagnosed Date [...] as of this encounter (statuses as of 08/23/2023) Immunizations Name Administration Dates Next Due DTP [...] money to get more. Never true 01/19/2023 [place] Depression Scale Answer Date Recorded [place] Depression Scale Total 9 04/03/2023 The thought [...] encounter Miscellaneous Notes * Telephone Encounter - Anai Delgadillo MED ASSIST - 08/23/2023 8:33 AM EST Called and spoke to patient and she is scheduled for venofer for 08/24/23. * Telephone Encounter - Yvrose Capps LPN - 08/23/2023 8:12 AM EST Ramer planned was signed. Scheduling: Please contact patient to schedule 2 hour appointment "Venofer 06/20", (AD Oquendo). Thank you Patient will need Venofer once a week x 3 doses. * Telephone Encounter - Yvrose Capps LPN - 08/22/2023 2:30 PM EST Order Received Ramer plan built and routed to provider Per Judy oconnor to add D50.9 to beacon plan. Prior auth not needed for Venofer. Schedule once beacon plan is signed. * Telephone Encounter - Bryce Brar RN - 08/14/2023 10:19 AM EST Recommend IV iron per OB MTM guidelines. Patient agreeable, prefers infusion at [facility]. documented in this encounter Plan of Treatment Upcoming Encounters Date Type Department Care Team (Late st Contact Info) Description 08/24/2023 2:00 PM EST Hem/Onc Treatment Hematology/Oncology Treatment, [place] [address] [place] [address] 08/29/2023 10:00 AM EDT Pharmacy Pharmacy, [address] [address] Clinic, Anemia [address] [place] [address] 08/31/2023 8:30 AM EDT Office Visit Gynecology/Obstetrics [facility] [address] [place] [address] Yvrose Seymour CRNP [address] [place] [address] 08/31/2023 10:15 AM EDT Hem/Onc Treatment Hematology/Oncology [address] [phone] [place], Chair 10 Hem Onc [address] [address] 09/07/2023 2:00 PM EDT Hem/Onc Treatment Hematology/Oncology Treatment, [address] [phone] [place], Chair 11 Hem Onc [address] [place] [address] 05/12/2024 10:00 AM EST Office Visit Family Practice [facility] [address] [place] [address] Malinda Owens CRNP [address] [place] [address] Scheduled Referrals Name Type Priority Associated Diagnoses Orde r Schedule PHARMACIST MEDS THERAPY MGMT REFERRAL OP Referral Within 10 days (routine) ROSSANA (iron deficiency anemia) Ordered: 08/14/2023 Health Maintenance Due Date Last Done Comments Depression Screening 2006 GARDASIL-HPV IMMUNIZATION SERIES (3 - 3-dose series) 02/05/2013 11/13/2012, 03/21/2012 COVID-19 Vaccine ( season) 2023 Pap Smear 01/29/2026 01/29/2023, /11/2019, 07/17/2018, Additional history exists DTaP,Tdap,and Td Vaccines [...] as of this encounter Visit Diagnoses Diagnosis ROSSANA (iron deficiency anemia)- Primary Iron deficiency anemia, unspecified documented in this encounter
--- OUTSIDE RECORDS SUMMARY | 2023-10-30 18:05 | External Medical Summary | Summary of Care ---
Author Name Unknown Organization [facility] Address [address] [place] [address] Phone [phone] Care Team Providers Care Passenger Car Cleaning Supervisor Name Role Phone Unavailable Primary Care Provider Unavailabl e Reason for Visit * Reason Onset Date Comments Anemia Follow-Up 08/23/2023 Encounter Details Date Type Department Care Team (Late st Contact Info) Description 08/23/2023 8:00 AM [facility] Pharmacy Pharmacy, [place] [address] [place] [address] Clinic, Anemia [address] [place] [address] Iron deficiency anemia, unspecified iron deficiency anemia [...] money to get more. Never true 01/19/2023 [place] Depression Scale Answer Date Recorded [place] Depression Scale Total 9 04/03/2023 The thought [...] Progress Notes * Nel Freitas RPh - 08/23/2023 4:00 PM EST Patient Phone Numbers Returned call to patient. Patient was previously inquiring if she should start PO iron until her infusions were scheduled, however, infusions scheduled starting on 08/24/23. Will discuss need for PO iron once repeat labs are obtained after repletion series. Anemia Clinic will continue to follow. Thank you for allowing us to participate in the care of thispatient. Nel Freitas, PharmD, BCPS Clinical Pharmacist [facility] Anemia Clinic (P: [phone]) 08/23/2023 4:16 PM documented in this encounter Plan of Treatment Upcoming Encounters Date Type Department Care Team (Late st Contact Info) Description 08/24/2023 2:00 PM EST Hem/Onc Treatment Hematology/Oncology Treatment, [address], [place] [phone] 08/29/2023 10:00 AM EDT Pharmacy Pharmacy, [place] [address] [place] [address] Clinic, [facility] [address] [place] [address] 08/31/2023 8:30 AM EDT Office Visit Gynecology/Obstetrics [facility] [address] [place] [address] Yvrose Seymour CRNP [address] [place] [address] 08/31/2023 10:15 AM EDT Hem/Onc Treatment Hematology/Oncology Treatment, [address], [place] [phone] [place], Chair [address] Hem On[address] [place] [address] 09/07/2023 2:00 PM EDT Hem/Onc Treatment Hematology/Oncology Treatment, [address], [place] [phone] [place], Chair 11 Hem Onc [facility] [address] [place] [address] [place] [address] 05/12/2024 10:00 AM EST Office Visit Family Practice [facility] [address] [place] [address] Malinda Owens CRNP [address] [place] [address] Health Maintenance Due Date Last Done Comments [...]
--- OUTSIDE RECORDS SUMMARY | 2023-10-30 18:05 | External Medical Summary | Summary of Care ---
Author Name Unknown Organization [facility] Address [address] [place] [address] Phone [phone] Care Team Providers Care Concrete Craftsman Name Role Phone Unavailable Primary Care Provider Unavailabl e Encounter Details Date Type Department Care Team (Late st Contact Info) Description 08/22/2023 Orders Only Pharmacy, [place] [address] [place] [address] Dane [place], [facility] [address] [place] [address] Allergies No known active allergiesdocumented as of this encounter (statuses as of 08/22/2023) Medications Medication Sig Dispensed Refills Start Date [...] as of this encounter (statuses as of 08/22/2023) Active Problems Problem Noted Date Diagnosed Date [...] as of this encounter (statuses as of 08/22/2023) Immunizations Name Administration Dates Next Due DTP [...] money to get more. Never true 01/19/2023 [place] Depression Scale Answer Date Recorded [place] Depression Scale Total 9 04/03/2023 The thought [...] Description 08/29/2023 10:00 AM EDT Pharmacy Pharmacy, [place] [address] [place] [address] [place] [address] [place] [address] 08/31/2023 8:30 AM EDT Office Visit Gynecology/Obstetrics [facility] [address] [place] [address] Yvrose Seymour CRNP [address] [place] [address] 05/12/2024 10:00 AM EST Office Visit Family Practice [facility] [address] [place] [address] Malinda Owens CRNP [address] [place] [address] Health Maintenance Due Date Last Done Comments [...]
--- OUTSIDE RECORDS SUMMARY | 2023-10-30 18:06 | External Medical Summary | Summary of Care ---
Author Name Unknown Organization [facility] Address [address] [place] [address] Phone [phone] Care Team Providers Care Metal Fabricator Apprentice Name Role Phone Unavailable Primary Care Provider Unavailabl e Reason for Visit * Reason Onset Date Comments Anemia Follow-Up 08/21/2023 * Evaluate & Treat - Unlimited Visits (Within 10 days (routine)) - Pending Review Specialty Diagnoses / Procedures Referred By Contjeffery t Referred To Contact Pharmacist / Pharmacy Diagnoses ROSSANA (iron deficiency anemia) Indira Cleveland CRNP [address] [place] [address] Referral ID Status Reason Start Date Expiration Date Visits Requested Visits Authorized [id number] Pending Review Specialty Services Required 08/14/2023 99 99 Encounter Details Date Type Department Care Team (Late st Contact Info) Description 08/21/2023 4:00 PM [facility] Pharmacy Pharmacy, [place] [address] [place], [place] [address] Clinic, Anemia [address] [place] [address] Iron deficiency anemia, unspecified iron deficiency anemia [...] money to get more. Never true 01/19/2023 [place] Depression Scale Answer Date Recorded [place] Depression Scale Total 9 04/03/2023 The thought [...] of this encounter Progress Notes * Judy Briggs, [facility] - 08/21/2023 1:11 PM EST Patient Phone [...] and appears to be tolerating it well. Patient qualifies for IV iron repletion. Tentative Plan: Venofer 300 mg IV weekly x 3 doses at . Orders need to be placed and routed to appropriate parties if patient agreeable to intervention. Follow-up labs to be scheduled ~4-6 weeks after iron repletion completed if appropriate prior to delivery. Anemia Clinic will continue to follow. Thank you for allowing us to participate in the care of this patient. Thanks, Judy Briggs [facility] Clinical Pharmacist [facility] Anemia Clinic (P: [phone]) 08/21/2023 1:12 PM documented in this encounter Plan of Treatment Upcoming Encounters Date Type Department Care Team (Late st Contact Info) Description 08/29/2023 4:00 PM EDT Pharmacy Pharmacy, [address] [address] Clinic, Anemia [facility] [place] [address] 08/31/2023 8:30 AM EDT Office Visit Gynecology/Obstetrics [facility] [address] [place] [address] Yvrose Seymour CRNP [address] [place] [address] 05/12/2024 10:00 AM EST Office Visit Family Practice [facility] [address] [place] [address] Malinda Owens CRNP [address] [place] [address] Scheduled Referrals Name Type Priority Associated Diagnoses [...]
--- OUTSIDE RECORDS SUMMARY | 2023-10-30 18:06 | External Medical Summary ---
Author Name Unknown Address Unknown Organization K0G:[facility]ORY [facility] [place] [address] [place] [address] Laboratory Report Ordering Provider Test Date Status KELSI LR 08/13/2023 10:58:42 Final Observation Date Value Abnormality Reference (Units ) Status Glucose [Mass/volume] in Serum or Plasma --3 hours post dose glucose 08/13/2023 10:58:42 72 70-139 (mg/dL) Final Performing Location LABORATORY [place] [address] [place] [address]
--- OUTSIDE RECORDS SUMMARY | 2023-10-30 18:06 | External Medical Summary | Summary of Care ---
Author Name Unknown Organization [facility] Address [address] [place] [address] Phone [phone] Care Team Providers Care Breakfast Manager Name Role Phone Unavailable Primary Care Provider Unavailabl e Reason for Referral * (Within 10 days (routine)) Specialty Diagnoses / Procedures Referred By Bennie t Referred To Contact Adeline Cleveland CRNP [address] [place] [address] Referral ID Status Reason Start Date Expiration Date Visits Re quested Visits Authorized Question Answer Referral Priority Within 10 days (routine) Where should this appointment be scheduled? [facility] Reason for Visit * Reason Onset Date Comments Abnormal Test Results 08/14/2023 Encounter Details Date Type Department Care Team (Late st Contact Info) Description 08/14/2023 Refill Gynecology/Obstetrics [facility] [address] [place] [address] Adeline Cleveland CRNP [address] [place] [address] Antepartum anemia complicating * Allergies No known active allergiesdocumented as of this encounter (statuses as of 08/14/2023) Medications Medication Sig Dispensed Refills Start Date [...] as of this encounter (statuses as of 08/14/2023) Active Problems Problem Noted Date Diagnosed Date Antepartum anemia complicating 024 Overview: Needs IV [...] as of this encounter (statuses as of 08/14/2023) Immunizations Name Administration Dates Next Due DTP [...] money to get more. Never true 01/19/2023 [place] Depression Scale Answer Date Recorded [place] Depression Scale Total 9 04/03/2023 The thought [...] encounter Miscellaneous Notes * Telephone Encounter - Adeline Cleveland CRNP - 08/14/2023 10:03 AM ESTSigned Prescriptions: Disp Refills Vitamin B-12 1000 MCG Oral Tablet (Cyanoco*30 Tab*5 Sig: Take 1Tablet by mouth in the morning.Authorizing Provider: ADELINE [place] * Telephone Encounter - Adeline Cleveland CRNP - 08/14/2023 10:03 AM EST Rx sent. Referral placed. * Telephone Encounter - Laurel Buchanan RN - 08/14/2023 9:38 AM ESTPending Prescriptions: Disp Refills Vitamin B-12 1000 MCG Oral Tablet (Cyanoco*30 Tab*5 Sig: Take 1 Tablet by mouth in the morning. * Telephone Encounter - Laurel Buchanan RN - 08/14/2023 9:37 AM EST Patient called and made aware. Patient agreeable to IV iron. Uses [facility] in [place]. Pharmacy updated in chart. * Telephone Encounter - Adeline Cleveland CRNP - 08/14/2023 9:29 AM EST Please make pt aware she is anemic. Needs IV iron infusions, as well as oral vitamin B12. Once she is aware, and agreeable please route back to me so I can place referral for infusions. Please ask pharmacy so I can send the B12. documented in this encounter Plan of Treatment Upcoming Encounters Date Type Department Care Team (Late st Contact Info) Description 08/27/2023 8:30 AM EDT Office Visit Gynecology/Obstetrics [facility] [address] [place] [address] Yvrose Seymour CRNP [address] [place] [address] 05/12/2024 10:00 AM EST Office Visit Family Practice [facility] [address] [place] [address] Malinda Owens CRNP [address] [place] [address] Scheduled Referrals Name Type Priority Associated Diagnoses Orde r Schedule BLOOD MANAGEMENT REFERRAL Referral Within 10 days (routine) Antepartum anemia complicating Ordered: 08/14/2023 Health Maintenance Due Date Last [...]
--- OUTSIDE RECORDS SUMMARY | 2023-10-30 18:06 | External Medical Summary ---
Author Name Unknown Address Unknown Organization K0G:LABORATORY [facility] [place] [address] [place] [address] Laboratory Report Ordering Provider Test Date Status KELSI LR 08/13/2023 10:01:42 Final Observation Date Value Abnormality Reference (Units ) Status Glucose, 2-hr post glucose challenge 08/13/2023 10:01:42 174 Above high normal 70-154 (mg/dL) Final Performing Location [facility]ORY [facility] [place] [address] [place] [address]
--- OUTSIDE RECORDS SUMMARY | 2023-10-30 18:06 | External Medical Summary | Summary of Care ---
Author Name Unknown Organization [facility] Address [address] [place] [address] Phone [phone] Care Team Providers Care Glassware Finisher Name Role Phone Unavailable Primary Care Provider Unavailabl e Reason for Visit * Reason Comments Blood Management Program Encounter Details Date Type Department Care Team (Late st Contact Info) Description 08/14/2023 Documentation Patient Blood Management, [place] [address] [place] [address] Bryce Brar RN Allergies No known active allergiesdocumented as of [...] money to get more. Never true 01/19/2023 [place] Depression Scale Answer Date Recorded [place] Depression Scale Total 9 04/03/2023 The thought [...] as of this encounter Progress Notes * Bryce Brar RN - 08/14/2023 10:16 AM EST REFERRAL - Patient Blood Management Name: Yuli Gutierrez REQUESTING SERVICE: [facility] OB REASON FOR REFERRAL: new evaluation outpatient, anemia in [place]: 11/02/23 Anemia Evaluation: Latest Reference Range & Units 08/13/23 07:56 HGB 12.0 - 15.3 g/dL 10.7 (L) HCT 36.0 - 45.2 % 32.3 (L) Iron 33 - 151 ug/dL 104 Iron Binding Capacity 250 - 425 ug/dL 430 (H) Transferrin Saturation Percent 15 - 55 % 24 Ferritin 13 - 150 ng/mL 19 Vitamin B12 232 - 1,245 pg/mL 160 (L) Folic Acid >4.5 ng/mL >20.0 Immature Reticuloctye Fraction 2.5 - 20.6 % 26.5 (H) Reticulocyte Hemoglobin 29.7 - 37.4 pg 35.6 (L): Data is abnormally low (H): Data is abnormally high Current Patient Medications: Medications that may impair hemostasis: none Medications that may impair iron absorption: none Patient Refused Blood Transfusion? (e.g. Congregation): no Possible Contributing Factors: iron deficiency and vitamin B12 deficiency Treatment Recommendations: B12 1000mcg PO daily IV iron per OB MTM guidelines. 08/14 - OB MTM submitted. MyG sent to patient. Thank you for allowing Blood Management to participate in the care of this patient. documented in this encounter Plan of Treatment Upcoming Encounters Date Type Department Care Team (Late st Contact Info) Description 08/27/2023 8:30 AM EDT Office Visit Gynecology/Obstetrics [facility] [address] [place] [address] Yvrose Seymour CRNP [address] [place] [address] 05/12/2024 10:00 AM EST Office Visit Family Practice [facility] [address] [place] [address] Malinda Owens CRNP [address] [place] [address] Health Maintenance Due Date Last Done Comments [...]
--- OUTSIDE RECORDS SUMMARY | 2023-10-30 18:06 | External Medical Summary | Summary of Care ---
Author Name Unknown Organization [facility] Address [address] [facility] [address] Phone [phone] Care Team Providers Care Tractor Drill Operator Name Role Phone Unavailable Primary Care Provider Unavailabl e Reason for Visit * Reason Comments Return Visit Encounter Details Date Type Department Care Team (Late st Contact Info) Description 08/13/2023 8:15 AM EST Office Visit [facility]necology[facility]Obstetric [facility] [address] [place] [address] Indira Cleveland CRNP [address] [place] [address] Encounter for supervision of other normal , unspecified trimester*; Class 1 obesity due to excess calories without serious comorbidity with body mass index (BMI) of 33.0 to 33.9 in adult; Abnormal glucose tolerance in mother complicating ; Need for prophylactic vaccination with combined zlarlwvofg-frbgiap-kl rtussis (DTP) vaccine Allergies No known active allergiesdocumented as of this encounter (statuses as of 08/13/2023) Medications Medication Sig Dispensed Refills Start Date End Date Status 19 29-1 MG Oral Tablet Chewable Take by mouth. 0 Active Doxylamine Succinate (Sleep) 25 MG Oral Tablet (Unisom SleepTabs) Take 1 Tablet by mouth at bedtime as needed. 0 Active documented as of this encounter (statuses as of 08/13/2023) Active Problems Problem Noted Date Diagnosed Date Abnormal glucose tolerance in mother complicatin g [...] as of this encounter (statuses as of 08/13/2023) Immunizations Name Administration Dates Next Due DTP [...] money to get more. Never true 01/19/2023 [place] Depression Scale Answer Date Recorded [place] Depression Scale Total 9 04/03/2023 The thought [...] Sign Reading Time Taken Comments Blood Pressure 100/58 08/13/2023 8:08 AM EST Pulse - - Temperature - - Respiratory Rate - - Oxygen Saturation - - Inhaled Oxygen Concentration - - Weight 108 kg (238 lb) 08/13/2023 8:08 AM EST Height 175.3 cm (5' 9") 08/13/2023 8:08 AM EST Body Mass Index 35.15 08/13/2023 8:08 AM EST documented in this encounter Progress Notes * Indira Cleveland CRNP - 08/13/2023 8:28 AM EST 28w3d Has superficial lumps in medial aspect of bilateral breasts. More prominent at night, but present all day. Changed type of bra, wondering if that was causing it. Exam shows superficial nodule medial aspect of left breast. Nodule feels in skin, consistent with sebaceous cyst type lesion. Right breast lesion not present at time of examination. Reassured this does not seem to be in breast tissue. Call with changes. Completing 3hr GTT today. TDAP today. Baby is active. No contractions or bleeding. AD Miguel * Eli Calles LPN - 08/13/2023 8:08 AM EST 28w3d Would like tdap Lumps on inside of breast documented in this encounter Nursing Notes * Eli Calles LPN - 08/13/2023 8:38 AM EST Patient here for tdap injection. Patient doing well no complaints. Injection given IM as ordered. Patient tolerated well. Patient to follow up as directed. Patient instructed to call if any complications. Patient verbalized understanding of instructions given and her follow up appt for 2 weeks Injection site: Right Deltoid Medication Source: Dispensed stock medication documented in this encounter Plan of Treatment Upcoming Encounters Date Type Department Care Team (Late st Contact Info) Description 08/27/2023 8:30 AM EDT [facility] [address] [place] [address] Yvrose Seymour CRNP [address] [place] [address] 05/12/2024 10:00 AM EST Office Visit Family Practice [facility] [address] [place] [address] Malinda Owens CRNP [address] [place] [address] Health Maintenance Due Date Last Done Comments [...] (BMI) of 33.0 to 33.9 in adult Abnormal glucose tolerance in mother complicating Abnormal maternal glucose tolerance, complicating , childbirth, or the puerperium, unspecified as to episode of care Need for prophylactic vaccination with combined ivxpetrstf-dicwmbf-ebqegvrbc (DTP) vaccine documented in this encounter
--- OUTSIDE RECORDS SUMMARY | 2023-10-30 18:06 | External Medical Summary ---
Author Name Unknown Address Unknown Organization [id number]:LABORATORY [facility] [address] - [address] [place] [address] Laboratory Report Ordering Provider Test Date Status KELSI LR 08/13/2023 08:59:09 Final Observation Date Value Abnormality Reference (Units ) Status Glucose [Mass/volume] in Serum or Plasma --1 hour post dose glucose 08/13/2023 08:59:09 178 70-179 (mg/dL) Final Performing Location LAB[facility]ATORY [facility] 57[address] 0 - [address] [place] [address]
--- OUTSIDE RECORDS SUMMARY | 2023-10-30 18:06 | External Medical Summary | Summary of Care ---
Author Name Unknown Organization [facility] Address [address] [place] [address] Phone [phone] Care Team Providers Care Apartment Groundskeeper Name Role Phone Unavailable Primary Care Provider Unavailabl e Reason for Visit * Reason Comments Outpatient Testing Encounter Details Date Type Department Care Team (Late st Contact Info) Description 08/13/2023 7:50 AM EST Laboratory Laboratory, [facility] [address] [place] [phone] [facility] [address] [place] [address] Encounter for supervision of other normal , unspecified trimester; Abnormal glucose tolerance in mother complicating Allergies No known active allergiesdocumented as of [...] money to get more. Never true 01/19/2023 [place] Depression Scale Answer Date Recorded [place] Depression Scale Total 9 04/03/2023 The thought [...] 08/27/2023 8:30 AM EDT Office Visit Gynecology/Obstetrics [facility] [address] [place] [address] [address] Yvrose Seymour CRNP [address] [place] [address] 05/12/2024 10:00 AM EST Office Visit Family Practice [facility] [address] [place] [address] Malinda Owens CRNP [address] [place] [address] Pending Results Name Type Priority Associated Diagnoses Date /Time GESTATIONAL GLUCOSE TOLERANCE, 3 HOUR Lab Routine Encounter for supervision of other normal , unspecified trimester Abnormal glucose tolerance in mother complicating 08/13/2023 7:56 AM EST CBC WITH WBC DIFFERENTIAL AND ANEMIA REFLEX WORKUP Lab Routine Encounter for supervision of other normal , unspecified trimester 08/13/2023 7:56 AM EST SYPHILIS ANTIBODY SCREEN WITH REFLEX TO RPR Lab Routine Encounter for supervision of other normal , unspecified trimester 08/13/2023 7:56 AM EST ANEMIA CBC Lab Routine Encounter for supervision of other normal , unspecified trimester 08/13/2023 7:56 AM EST DIFFERENTIAL, AUTOMATED Lab Routine Encounter for supervision of other normal , unspecified trimester 08/13/2023 7:56 AM EST ANEMIA REFLEX CHEMISTRY HOLD Lab Routine Encounter for supervision of other normal , unspecified trimester 08/13/2023 7:56 AM EST SYPHILIS ANTIBODY SCREEN Lab Routine Encounter for supervision of other normal , unspecified trimester 08/13/2023 7:56 AM EST 100-G GESTATIONAL GLUCOSE, 3 HOUR Lab Routine Encounter for supervision of other normal , unspecified trimester Abnormal glucose tolerance in mother complicating 08/13/2023 10:58 AM EST Health Maintenance Due Date Last Done Comments [...] Comments 100-G GESTATIONAL GLUCOSE, 2 HOUR Routine 08/13/2023 10:01 AM EST Encounter for supervision of other normal , unspecified trimester Abnormal glucose tolerance in mother complicating 100-G GESTATIONAL GLUCOSE, 1 HOUR Routine 08/13/2023 8:59 AM EST Encounter for supervision of other normal , unspecified trimester Abnormal glucose tolerance in mother complicating 100-G GESTATIONAL GLUCOSE, FASTING Routine 08/13/2023 7:56 AM EST Encounter for supervision of other normal , unspecified trimester Abnormal glucose tolerance in mother complicating documented in this encounter Results * (ABNORMAL) 100-G GESTATIONAL GLUCOSE, 2 HOUR (08/13/2023 10:01 AM EST) 100-g Gestational Glucose, 2 Hour 174(H) 70 - 154 mg/dL 08/13/2023 11:04 AM EST [facility] [place] [facility] Blood Venous blood specimen / Unknown Venipuncture / Unknown 08/13/2023 10:01 AM EST 08/13/2023 10:01 AM EST Indira DUONG LAB BLOOD ORDERABLES [facility] [place] [facility] [facility] [address] * 100-G GESTATIONAL GLUCOSE, 1 HOUR (08/13/2023 8:59 AM EST) 100-g Gestational Glucose, 1 Hour 178 70 - 179 mg/dL 08/13/2023 9:47 AM EST [facility] [place] [facility] Blood Venous blood specimen / Unknown Venipuncture / Unknown 08/13/2023 8:59 AM EST 08/13/2023 8:59 AM EST Indira DUONG LAB BLOOD ORDERABLES [facility] [place] [facility] [facility] [address] * 100-G GESTATIONAL GLUCOSE, FASTING (08/13/2023 7:56 AM EST) 100-g Gestational Glucose, Fasting 79 70 - 94 mg/dL 08/13/2023 8:56 AM EST LAB[facility]ORY [facility] [place] 57-10 Blood Venous blood specimen / Unknown Venipuncture / Unknown 08/13/2023 7:56 AM EST 08/13/2023 7:56 AM EST Narrative [facility] - 08/13/2023 8:56 AM EST Based on ACOG guideline, gestational diabetes mellitus is diagnosed when any of the following is met: Fasting is greater than or equal to 95 mg/dL 1 hour is greater than or equal to 180 mg/dL 2 hour is greater than or equal to 155 mg/dL 3 hour is greater than or equal to 140 mg/dL Indira DUONG LAB BLOOD ORDERABLES Performing Organization Address City/State/[facility] Co de Phone Number [facility] [place] [address] [place] [address] documented in this encounter Visit Diagnoses Diagnosis Encounter for supervision of other normal , unspecified trimester Abnormal glucose tolerance in mother complicating Abnormal maternal glucose tolerance, complicating , childbirth, or the puerperium, unspecified as to episode of care documented in this encounter
--- OUTSIDE RECORDS SUMMARY | 2023-10-30 18:07 | External Medical Summary ---
Author Name Unknown Address Unknown Organization [id number]:[facility] [place] [address] - [address] [place] [address] Laboratory Report Ordering Provider Test Date Status NINO LRTOMER 08/13/2023 07:56:39 Final Based on ACOG guideline, ges tational [...] Abnormality Reference (Units ) Status Glucose, fasting 08/13/2023 07:56:39 79 70- 94 (mg/dL) Final Performing Location LABORATORY [facility] [place] [address] 0 - [address] [place] [address]
--- OUTSIDE RECORDS SUMMARY | 2023-10-30 18:07 | External Medical Summary | Summary of Care ---
Author Name Unknown Organization [facility] Address [address] [place] [address] Phone [phone] Care Team Providers Care Derrick Worker Name Role Phone Unavailable Primary Care Provider Unavailabl e Reason for Visit * Reason Onset Date Comments Test Results 06/19/2023 Encounter Details Date Type Department Care Team (Late st Contact Info) Description 06/19/2023 Telephone Gynecology/Obstetrics [facility] [address] [place] [address] Yvrose Seymour CRNP [address] [place] [id number] Test Results Allergies No known active allergiesdocumented as of this encounter (statuses as of 06/21/2023) Medications Medication Sig Dispensed Refills Start Date End Date Status 19 29-1 MG Oral Tablet Chewable Take by mouth. 0 Active Doxylamine Succinate (Sleep) 25 MG Oral Tablet (Unisom SleepTabs) Take 1 Tablet by mouth at bedtime as needed. 0 Active documented as of this encounter (statuses as of 06/21/2023) Active Problems Problem Noted Date Diagnosed Date [...] as of this encounter (statuses as of 06/21/2023) Immunizations Name Administration Dates Next Due DTP [...] Inj 04/08/2012,04/13/2010 TDAP (age 10 and older)(Boostrix) 08/22/2019 TDAP (age 11 and older)(Adacel) 09/17/2008 Varicella [...] money to get more. Never true 01/19/2023 [place] Depression Scale Answer Date Recorded [place] Depression Scale Total 9 04/03/2023 The thought [...] encounter Miscellaneous Notes * Telephone Encounter - Laurel Buchanan RN - 06/21/2023 10:17 AM EST Per chart, Patient has missed anatomy appt scheduled for 07/04. * Telephone Encounter - Laurel Buchanan RN - 06/21/2023 10:00 AM EST Attempted to call patient. No answer, unable to Leave VM * Telephone Encounter - Lolis Vasquez LPN - 06/19/2023 9:34 AM EST left message for patient to call office * Telephone Encounter - Yvrose Seymour CRNP - 06/19/2023 8:24 AM EST Normal anatomy scan, does need follow up imaging in 2 weeks for missed anatomy. Please notify pt and help schedule. AD Ritchie documented in this encounter Plan of Treatment Upcoming Encounters Date Type Department Care Team (Late st Contact Info) Description 07/04/2023 3:00 PM EST Imaging Radiology [facility] 2nd [facility] [address] [place] [address] 07/18/2023 8:00 AM EST Office Visit Gynecology/Obstetrics [facility] [place] [address] Indira Cleveland CRNP [address] [place] [address] 05/12/2024 10:00 AM EST Office Visit Family Practice [facility] [address] [place] [address] Malinda Owens CRNP [address] [place] [address] Scheduled Orders Name Type Priority Associated Diagnoses Orde r Schedule US PREG FOLLOW-UP EACH FETUS Medical Imaging Routine Encounter for supervision of other normal , unspecified trimester Expected: 07/03/2023 (Approximate), Expires: 07/20/2024 Health Maintenance Due Date Last Done Comments COVID-19 Vaccine (#1) 1994 Depression Screening 2006 GARDASIL-HPV IMMUNIZATION SERIES (3 - 3-dose series) 02/05/2013 11/13/2012, 03/21/2012 Pap Smear 01/29/2026 01/29/2023, 11/17, 07/17/2018, Additional history exists DTaP,Tdap,and Td Vaccines (8 - Td or Tdap) 08/21/2029 08/22/2019, 09/17/2008, 01/18/2000, Additional history exists Hepatitis B Completed 02/17/1995, [...] of other normal , unspecified trimester- Primary documented in this encounter
--- OUTSIDE RECORDS SUMMARY | 2023-10-30 18:07 | External Medical Summary ---
Author Name Unknown Address Unknown Organization [id number]:LABORATORY C - [address] [place] [address] Laboratory Report Ordering Provider Test Date Status KELSI LR 08/13/2023 07:56:39 Final Observation Date Value Abnormality Reference (Units ) Status Folic Acid 08/13/2023 07:56:39 >20.0 >4.5 (ng/ mL) Final Performing Location LABORATORY [facility] - [address] [place] [address]
--- OUTSIDE RECORDS SUMMARY | 2023-10-30 18:07 | External Medical Summary | Summary of Care ---
Author Name Unknown Organization [facility] Address [address] [place] [address] Phone [phone] Care Team Providers Care Scanning Coordinator Name Role Phone Unavailable Primary Care Provider Unavailabl e Reason for Visit * Reason Onset Date Comments Test Results 06/19/2023 Encounter Details Date Type Department Care Team (Late st Contact Info) Description 06/19/2023 Telephone Gynecology/Obstetrics [facility] [address] [place] [address] Yvrose Seymour CRNP [address] [place] [address] Test Results Allergies No known active allergiesdocumented [...] money to get more. Never true 01/19/2023 [place] Depression Scale Answer Date Recorded [place] Depression Scale Total 9 04/03/2023 The thought [...] Description 07/04/2023 3:00 PM EST Imaging Radiology [facility] 2nd [facility] [address] [facility] [place] [address] 07/18/2023 8:00 AM EST Office Visit Gynecology/Obstetrics [facility] [place] [address] Indira Cleveland CRNP [address] [place] [address] 05/12/2024 10:00 AM EST Office Visit Family Practice [facility] [address] [place] [address] Malinda Owens CRNP [address] [place] [address] Scheduled Orders Name Type Priority Associated Diagnoses [...]
--- OUTSIDE RECORDS SUMMARY | 2023-10-30 18:07 | External Medical Summary ---
Author Name Unknown Address Unknown Organization [id number]:LABORATORY [facility] [address] [place] [address] Laboratory Report Ordering Provider Test Date Status KELSI LR 08/13/2023 07:56:39 Final Observation Date Value Abnormality Reference (Units ) Status Creatinine 08/13/2023 07:56:39 0.7 0.5-1.0 (mg/dL) Final Glomerular filtration rate/1.73 sq M.predicted [Volume Rate/Area] in Serum, Plasma or Blood by Creatinine-based formula (CKD-EPI) 08/13/2023 07:56:39 >90 >=60 (mL/min) Final eGFR is calculated based on the CKD-EPI 2020 equation Performing Location LABORATORY [facility] - [facility] [address] [place] [address]
--- OUTSIDE RECORDS SUMMARY | 2023-10-30 18:07 | External Medical Summary ---
Author Name Unknown Address Unknown Organization [id number]:[facility] [place] [address] [place] [address] Laboratory Report Ordering Provider Test Date Status KELSI LR 08/13/2023 07:56:39 Final Observation Date Value Abnormality Reference (Units ) Status Iron 08/13/2023 07:56:39 104 33-151 (ug/dL) Final Iron-binding capacity 08/13/2023 07:56:39 430 Above high normal 250-425 (ug/dL) Final Transferrin Sat % 08/13/2023 07:56:39 24 15-55 (%) Final Performing Location [facility] [place] [address] [place] [address]
--- OUTSIDE RECORDS SUMMARY | 2023-10-30 18:07 | External Medical Summary ---
Author Name Unknown Address Unknown Organization [id number]:LAB[facility]ATORY [facility] [place] - [address] [place] [address] Laboratory Report Ordering Provider Test Date Status NINO LRTOMER 08/13/2023 07:56:39 Final Observation Date Value Abnormality Reference (Units ) Status Retic, % (auto) 08/13/2023 07:56:39 3.24 Above high normal 0.80-1.90 (%) Final Reticulocytes, Absolute 08/13/2023 07:56:39 100.8 Above high normal 31.3-100.1 (K/uL) Final Reticulocyte fraction, immature 08/13/2023 07:56:39 26.5 Above high normal 2.5-20.6 (%) Final Reticulocyte HGB 08/13/2023 07:56:39 35.6 29.7-37.4 (pg) Final Performing Location LABORATORY [facility] - [address] [place] [address]
--- OUTSIDE RECORDS SUMMARY | 2023-10-30 18:07 | External Medical Summary ---
Author Name Unknown Address Unknown Organization [id number]:LABORATORY [facility] [place] - [address] [facility] [place] [address] Laboratory Report Ordering Provider Test Date Status KELSI LR 08/13/2023 07:56:39 Final Observation Date Value Abnormality Reference (Units ) Status SYNC LEUKOCYTES IN BLOOD BY AUTOMATED COUNT 08/13/2023 07:56:39 9.09 4.00-10.80 (K/uL) Final Segs 08/13/2023 07:56:39 70.7 40.0-75.0 (%) Final Lymphs % 08/13/2023 07:56:39 18.9 18.0-42.0 (%) Final Monos 08/13/2023 07:56:39 7.4 1.0-11.0 (%) Final Eosinophils 08/13/2023 07:56:39 1.4 0.0-6.0 (%) Final Basos 08/13/2023 07:56:39 0.2 0.0-2.0 (%) Final Immature Granulocyte, Percent 08/13/2023 07:56:39 1.4 0.0-2.0 (%) Final Absolute Segs 08/13/2023 07:56:39 6.42 1.80-7.70 (K/uL) Final Lymphs, absolute 08/13/2023 07:56:39 1.72 1.00-4.80 (K/ul) Final Monos, Abs 08/13/2023 07:56:39 0.67 0.00-1.10 (K/uL) Final Eos, Abs 08/13/2023 07:56:39 0.13 0.00-0.70 (K/uL) Final Basos, Abs 08/13/2023 07:56:39 0.02 0.00-0.20 (K/uL) Final Immature Granulocytes, Number 08/13/2023 07:56:39 0.13 0.00-0.20 (K/uL) Final Performing Location LABORATORY [facility] [place] - [address] [facility] [address]
--- OUTSIDE RECORDS SUMMARY | 2023-10-30 18:07 | External Medical Summary ---
Author Name Unknown Address Unknown Organization K01:LABORATORY [facility] [place] - [address] [place], [place] [address] [address] Laboratory Report Ordering Provider Test Date Status KELSI LR 08/13/2023 07:56:39 Final Observation Date Value Abnormality Reference (Units ) Status WBC, Total 08/13/2023 07:56:39 9.09 4.00-10.8 0 (K/uL) Final RBC 08/13/2023 07:56:39 3.13 3.85-5.15 (M/uL) Final Hemoglobin 08/13/2023 07:56:39 10.7 Below low normal 12 .0-15.3 (g/dL) Final Anemia reflex testing trigge rs on a HGB < 12.0 for Females and HGB < 13.0 for Males in accordance with the WHO Anemia Guidelines
Anemia reflex testing triggers on a HGB < 12.0 for Females and HGB < 13.0 for Males in accordance with the WHO Anemia Guidelines HCT 08/13/2023 07:56:39 32.3 Below low normal 36. 0-45.2 (%) Final MCV 08/13/2023 07:56:39 103.2 81.5-97.5 (fL) Final MCH 08/13/2023 07:56:39 34.2 27.0-34.0 (pg) Final MCHC 08/13/2023 07:56:39 33.1 32.0-36.0 (g/dL) Final RDW 08/13/2023 07:56:39 12.9 11.5-15.5 (%) Final Platelets 08/13/2023 07:56:39 197 140-400 (K /uL) Final MPV 08/13/2023 07:56:39 10.7 6.6-11.1 ( fL) Final Nucleated erythrocytes/100 leukocytes [Ratio] in Blood by Automated count 08/13/2023 07:56:39 0 <=0 (/100 WBCs) Marycruz morgan Performing Location LABORATORY [facility] [place] - [address] [place] [facility] [address]
--- OUTSIDE RECORDS SUMMARY | 2023-10-30 18:07 | External Medical Summary | Summary of Care ---
Author Name Unknown Organization [facility] Address [address] [facility] [place] [address] Phone [phone] Care Team Providers Care Trials Manager Name Role Phone Unavailable Primary Care Provider Unavailabl e Reason for Visit * Reason Onset Date Comments Test Results 06/19/2023 Encounter Details Date Type Department Care Team (Late st Contact Info) Description 06/19/2023 Telephone Gynecology/Obstetrics [facility] [address] [place] [address] Yvrose Seymour CRNP [address] [place] [address] Test Results Allergies No known active allergiesdocumented [...] money to get more. Never true 01/19/2023 [place] Depression Scale Answer Date Recorded [place] Depression Scale Total 9 04/03/2023 The thought [...] Description 07/04/2023 3:00 PM EST Imaging Radiology [facility] 2nd [facility] [address] [facility] [place] [address] 07/18/2023 8:00 AM EST Office Visit [facility]necology[facility] [place] [address] Indira Cleveland CRNP [address] [place] [address] 05/12/2024 10:00 AM EST Office Visit Family Practice [facility] [address] [place] [address] Malinda Owens CRNP [address] [place] [address] Scheduled Orders Name Type Priority Associated Diagnoses [...]
--- OUTSIDE RECORDS SUMMARY | 2023-10-30 18:07 | External Medical Summary | Summary of Care ---
Author Name Unknown Organization [facility] Address [address] [place] [facility] [place] [address] Phone [phone] Care Team Providers Care Speech And Language Assistant Name Role Phone Unavailable Primary Care Provider Unavailabl e Reason for Visit * Reason Comments Return Visit Encounter Details Date Type Department Care Team (Late st Contact Info) Description 07/31/2023 8:00 AM EST Office [facility] [address] [place] [address] Indira Cleveland CRNP [address] [place] [address] Encounter for supervision of other normal , unspecified trimester*; Class 1 obesity due to excess calories without serious comorbidity with body mass index (BMI) of 33.0 to 33.9 in adult; Abnormal glucose tolerance in mother complicating Allergies No known active allergiesdocumented as of this encounter (statuses as of 07/31/2023) Medications Medication Sig Dispensed Refills Start Date End Date Status 19 29-1 MG Oral Tablet Chewable Take by mouth. 0 Active Doxylamine Succinate (Sleep) 25 MG Oral Tablet (Unisom SleepTabs) Take 1 Tablet by mouth at bedtime as needed. 0 Active documented as of this encounter (statuses as of 07/31/2023) Active Problems Problem Noted Date Diagnosed Date [...] as of this encounter (statuses as of 07/31/2023) Immunizations Name Administration Dates Next Due DTP [...] money to get more. Never true 01/19/2023 [place] Depression Scale Answer Date Recorded [place] Depression Scale Total 9 04/03/2023 The thought [...] Sign Reading Time Taken Comments Blood Pressure 98/66 07/31/2023 8:02 AM EST Pulse - - Temperature - - Respiratory Rate - - Oxygen Saturation - - Inhaled Oxygen Concentration - - Weight 107.5 kg (237 lb) 07/31/2023 8:02 AM EST Height 175.3 cm (5' 9") 07/31/2023 8:02 AM EST Body Mass Index 35 07/31/2023 8:02 AM EST documented in this encounter Progress Notes * Indira Cleveland CRNP - 07/31/2023 8:16 AM EST 26w4d No concerns. Baby is active. No contractions or bleeding. Will complete 3hr GTT with next visit in 2 weeks. AD Miguel documented in this encounter Nursing Notes * Ronda Turner LPN - 07/31/2023 8:08 AM EST 26w4d Denies concerns. Has Heir and Parent class at [facility] this week. documented in this encounter Plan of Treatment Upcoming Encounters Date Type Department Care Team (Late st Contact Info) Description 08/13/2023 7:50 AM EST Laboratory Laboratory, [facility] [address] [place] [phone] [facility] [address] [place] [address] 08/13/2023 8:15 AM EST Office Visit Gynecology/Obstetrics [facility] [address] [place] [address] Indira Cleveland CRNP [address] [place] [address] 08/27/2023 8:30 AM EDT Office Visit Gynecology/Obstetrics [facility] [address] [place] [address] Yvrose Seymour CRNP [address] [place] [address] 05/12/2024 10:00 AM EST Office Visit Family Practice [facility] [address] [place] [address] Malinda Owens CRNP [address] [place] [address] Scheduled Orders Name Type Priority Associated Diagnoses Orde r Schedule GESTATIONAL GLUCOSE TOLERANCE, 3 HOUR Lab Routine Encounter for supervision of other normal , unspecified trimester Abnormal glucose tolerance in mother complicating Expected: 07/31/2023 (Approximate), Expires: 07/31/2024 CBC WITH WBC DIFFERENTIAL AND ANEMIA REFLEX WORKUP Lab Routine Encounter for supervision of other normal , unspecified trimester Expected: 07/31/2023 (Approximate), Expires: 07/31/2024 SYPHILIS ANTIBODY SCREEN WITH REFLEX TO RPR Lab Routine Encounter for supervision of other normal , unspecified trimester Expected: 07/31/2023 (Approximate), Expires: 07/31/2024 Health Maintenance Due Date Last Done Comments [...]
--- OUTSIDE RECORDS SUMMARY | 2023-10-30 18:07 | External Medical Summary ---
Author Name Unknown Address Unknown Organization [facility] - [address] [place] [address] Laboratory Report Ordering Provider Test Date Status KELSI LR 08/13/2023 07:56:39 Final Observation Date Value Abnormality Reference (Units ) Status Vitamin B12 08/13/2023 07:56:39 160 Below low normal 2 32-1245 (pg/mL) Final Performing Location [facility] - [address] [place] [id number]
--- OUTSIDE RECORDS SUMMARY | 2023-10-30 18:07 | External Medical Summary ---
Author Name Unknown Address Unknown Organization [facility] - [address] [place] [address] Laboratory Report Ordering Provider Test Date Status KELSI LR 08/13/2023 07:56:39 Final Observation Date Value Abnormality Reference (Units ) Status Ferritin 08/13/2023 07:56:39 19 13-150 (ng /mL) Final Performing Location [facility] - [address] [place] [address]
--- OUTSIDE RECORDS SUMMARY | 2023-10-30 18:07 | External Medical Summary ---
Author Name Unknown Address Unknown Organization K[facility] [place] - [address] [facility] [address] Laboratory Report Ordering Provider Test Date Status KELSI LR 08/13/2023 07:56:39 Final Observation Date Value Abnormality Reference (Units ) Status Treponema pallidum Ab [Presence] in Serum by Immunoassay 08/13/2023 07:56:39 Nonreactive Nonreactive Final No serologic evidence of syp hilis. No additional testing clinicially indicated at this time. Consider repeat testing in 2-4 weeks if acute or primary syphilis is suspected. Performing Location [facility] [place] [facility] [address] [facility] [address]
--- OUTSIDE RECORDS SUMMARY | 2023-10-30 18:07 | External Medical Summary ---
Author Name Unknown Address Unknown Organization [facility] - [address] [place] [address] Laboratory Report Ordering Provider Test Date Status KELSI LR 08/13/2023 07:56:39 Final Observation Date Value Abnormality Reference (Units ) Status TSH 08/13/2023 07:56:39 3.44 0.27-4.20 (uIU/mL) Final Performing Location [facility] - [address] [place] [address]
--- OUTSIDE RECORDS SUMMARY | 2023-10-30 18:08 | External Medical Summary | Summary of Care ---
Author Name Unknown Organization [facility] Address [address] [facility] [place] [address] Phone [phone] Care Team Providers Care Cushion Maker Hand Name Role Phone Unavailable Primary Care Provider Unavailabl e Reason for Visit * Reason Comments Acute Congestion, cough Encounter Details Date Type Department Care Team (Late st Contact Info) Description 06/20/2023 4:00 PM EST Telemedicine Family [facility] [address] [facility] [address] Kasia Segundo PA-C [address] [facility] [place] [address] Acute non-recurrent pansinusitis* Allergies No known active allergiesdocumented as of this encounter (statuses as of 06/20/2023) Medications Medication Sig Dispensed Refills Start Date End Date Status 19 29-1 MG Oral Tablet Chewable Take by mouth. 0 Active Doxylamine Succinate (Sleep) 25 MG Oral Tablet (Unisom SleepTabs) Take 1 Tablet by mouth at bedtime as needed. 0 Active Amoxicillin 875 MG Oral TabletIndications:Acu te non-recurrent pansinusitis Take 1 Tablet by mouth in the morning and 1 Tablet before bedtime. Do all this for 10 days. 20 Tablet 0 06/20/2023 06/30/2023 Active documented as of this encounter (statuses as of 06/20/2023) Active Problems Problem Noted Date Diagnosed Date [...] as of this encounter (statuses as of 06/20/2023) Immunizations Name Administration Dates Next Due DTP [...] money to get more. Never true 01/19/2023 [place] Depression Scale Answer Date Recorded [place] Depression Scale Total 9 04/03/2023 The thought [...] as of this encounter Progress Notes * Kasia Segundo PA-C - 06/20/2023 4:26 PM EST Patient location: HOME. I was in a hospital or clinic location. After connecting through televideo,patient was verified with two unique identifiers. Patient (or authorized legal strategic partnership representative) was then informed that this was a Telemedicine visit and being conducted confidentially over secure lines. Methods to assure confidentiality were taken. Patient acknowledged consent and understanding of pr ivacy and security of the Telemedicine visit. The patient agreed to participate. Unable to connect over telemed. Connected over telephone in my office. Pt agreed to participate. Subjective Yuli Gutierrez is a 28 year old female that presents for Acute (Congestion, cough) 20 weeks female presents c/o congestion, cough x 10 days. Pt states she started getting sick at [place] and symptoms have continued. She hasn't been using anything at home because of being. No one else around her is sick. She didn't take any home COVID tests. She did marlee her OB group who recommended she get seen by her PCP. She denies fevers, chills, chest pain, SOB. Had one ep isode of vomiting, none since. Denies diarrhea, abdominal pain, vaginal bleeding, cramping. Allergies and medications reviewed. Objective There were no vitals taken for this visit. There is no height or weight on file to calculate BMI. BP Readings from Last 3 Encounters: 06/20/23 124/72 06/01/23 100/62 05/17/23 104/70 Wt Readings from Last 3 Encounters: 06/20/23 104.3 kg (230 lb) 06/01/23 104.8 kg (231 lb) 05/17/23 102.6 kg (226 lb 3.2 oz) Physical Exam Constitutional: General: She is not in acute distress. Pulmonary: Effort: Pulmonary effort is normal. Neurological: Mental Status: She is oriented to person, place, and time. Psychiatric: Mood and Affect: Mood normal. Behavior: Behavior normal. Assessment and plan 1. Acute non-recurrent pansinusitis -amoxicillin as prescribed for sinusitis -rest,fluids -to Er with acute worsening symptoms -OTC medications as recommended by [facility] P[facility]ER - Amoxicillin 875 MG Oral Tablet; Take 1 Tablet by mouth in the morning and 1 Tablet before bedtime. Do all this for 10 days. Dispense: 20 Tablet; Refill: 0 Follow up Total time today including reviewing chart before the visit, pertinent labs, imaging reports, face to face time, and documentation time was 15 minutes. The above was discussed and understanding was expressed. Kasia Segundo PA-C documented in this encounter Plan of Treatment Upcoming Encounters Date Type Department Care Team (Late st Contact Info) Description 07/04/2023 3:00 PM EST Imaging Radiology [facility] 2nd [facility] [address] [facility] [place] [address] 07/18/2023 8:00 AM EST Office Visit Gynecology/Obstetrics [facility] [address] [facility] [place] [address] Indira Cleveland CRNP [address] [place] [address] 05/12/2024 10:00 AM EST Office Visit Family [facility] [address] [place] [address] Malinda Owens CRNP [address] [place] [address] Health Maintenance Due Date Last Done Comments [...] as of this encounter Visit Diagnoses Diagnosis Acute non-recurrent pansinusitis- Primary documented in this encounter
--- OUTSIDE RECORDS SUMMARY | 2023-10-30 18:08 | External Medical Summary | Summary of Care ---
Author Name Unknown Organization [facility] Address [address] [facility] [place] [address] Phone [phone] Care Team Providers Care Optical Brightener Maker Helper Name Role Phone Unavailable Primary Care Provider Unavailabl e Reason for Visit * Reason Comments Return Visit Encounter Details Date Type Department Care Team (Late st Contact Info) Description 06/01/2023 8:15 AM EST Office Visit Gynecology/Obstetric s Shanna Topete [address] [place] [address] Kina Capps PA-C [address] [place] [address] Encounter for supervision of other normal , unspecified trimester*; Class 1 obesity due to excess calories without serious comorbidity with body mass index (BMI) of 33.0 to 33.9 in adult; Abnormal glucose tolerance in mother complicating Allergies No known active allergiesdocumented as of this encounter (statuses as of 06/01/2023) Medications Medication Sig Dispensed Refills Start Date End Date Status 19 29-1 MG Oral Tablet Chewable Take by mouth. 0 Active Doxylamine Succinate (Sleep) 25 MG Oral Tablet (Unisom SleepTabs) Take 1 Tablet by mouth at bedtime as needed. 0 Active documented as of this encounter (statuses as of 06/01/2023) Active Problems Problem Noted Date Diagnosed Date [...] as of this encounter (statuses as of 06/01/2023) Immunizations Name Administration Dates Next Due DTP [...] money to get more. Never true 01/19/2023 [place] Depression Scale Answer Date Recorded [place] Depression Scale Total 9 04/03/2023 The thought [...] Sign Reading Time Taken Comments Blood Pressure 100/62 06/01/2023 8:10 AM EST Pulse - - Temperature - - Respiratory Rate - - Oxygen Saturation - - Inhaled Oxygen Concentration - - Weight 104.8 kg (231 lb) 06/01/2023 8:10 AM EST Height 175.3 cm (5' 9") 06/01/2023 8:10 AM EST Body Mass Index 34.11 06/01/2023 8:10 AM EST documented in this encounter Progress Notes * Kina Capps PA-C - 06/01/2023 8:23 AM EST 18w0d Acute visit, pt wanted FHT check. Denies bleeding, leaking, contractions. Unsure if feeling quickening as of yet. + FHT 150's with today visit. Reviewed MSAFP, pt still undecided will notify office if she'd like to completed. Reviewed 15-22wk testing. RTC in 2 weeks with anatomy as scheduled Kina Capps PA-C documented in this encounter Plan of Treatment Upcoming Encounters Date Type Department Care Team (Late st Contact Info) Description 06/15/2023 12:45 PM EST Imaging Radiology [facility] [address] [facility] [place] [address] 06/20/2023 8:30 AM EST Office Visit Gynecology/Obstetrics [facility] [address] [place] [address] Indira Cleveland CRNP [address] [place] [address] 05/12/2024 10:00 AM EST Office Visit Family Practice [facility] [address] [place] [address] Malinda Owens CRNP [address] [place] [address] Health Maintenance Due Date Last Done Comments [...]
--- OUTSIDE RECORDS SUMMARY | 2023-10-30 18:08 | External Medical Summary | Summary of Care ---
Author Name Unknown Organization [facility] Address [address] [place] [place] [address] Phone [phone] Care Team Providers Care Seo Assistant Name Role Phone Unavailable Primary Care Provider Unavailabl e Reason for Visit * Reason Onset Date Comments Return Visit Medication Administration 05/17/2023 Flu an d/or Pneumo Inj Encounter Details Date Type Department Care Team (Late st Contact Info) Description 05/17/2023 7:45 AM EST Office Visit Gynecology/Obstetric s [facility] [address] [place] [address] BackYvrose davis CRNP [address] [place] [address] Cramping complicating , antepartum*; Encounter for supervision of other normal , unspecified trimester; Class 1 obesity due to excess calories without serious comorbidity with body mass index (BMI) of 33.0 to 33.9 in adult; Abnormal glucose tolerance in mother complicating ; Need for prophylactic vaccination and inoculation against influenza Allergies No known active allergiesdocumented as of this encounter (statuses as of 05/17/2023) Medications Medication Sig Dispensed Refills Start Date End Date Status 19 29-1 MG Oral Tablet Chewable Take by mouth. 0 Active Doxylamine Succinate (Sleep) 25 MG Oral Tablet (Unisom SleepTabs) Take 1 Tablet by mouth at bedtime as needed. 0 Active documented as of this encounter (statuses as of 05/17/2023) Active Problems Problem Noted Date Diagnosed Date [...] as of this encounter (statuses as of 05/17/2023) Immunizations Name Administration Dates Next Due DTP [...] OPV - Polio Virus Vaccine (Oral) 000,01/02/1997,1994,05/19 SEASONAL INFLUENZA, PF, 6 M & Above, IM , (FLULAVAL or FLUZONE) 05/17/2023,08/21/2019 Seasonal Influenza Virus Vac cine, Unspecified Formulation 04/08/2012,04/13/2010,04/09/2009 Seasonal Influenza, Split, I IV3, With Preserve, [...] money to get more. Never true 01/19/2023 [place] Depression Scale Answer Date Recorded [place] Depression Scale Total 9 04/03/2023 The thought [...] Sign Reading Time Taken Comments Blood Pressure 104/70 05/17/2023 7:30 AM EST Pulse - - Temperature - - Respiratory Rate - - Oxygen Saturation - - Inhaled Oxygen Concentration - - Weight 102.6 kg (226 lb 3.2 oz) 05/17/2023 7:30 AM EST Height 175.3 cm (5' 9") 05/17/2023 7:30 AM EST Body Mass Index 33.4 05/17/2023 7:30 AM EST documented in this encounter Patient Instructions * Patient Instructions* Yvrose Seymour CRNP - 05/17/2023 7:52 AM EST Round Ligament Pain: Causes and Treatment Round ligament pain is most common during the 2nd and 3rd trimesters. Women may have a sharp pain in their abdomen or hip area that is either on one side or both. Some women even report pain that extends into the groin area. Round ligament pain is considered a normal part of as your body goes through many different changes. What causes round ligament pain? The round ligament supports the uterus and stretches during . It connects the front portion of the uterus to the groin. These ligaments contract and relax like muscles, but much more slowly. Any movement (including going from a sitting to standing position quickly, laughing, or coughing) that stretches these ligaments by making them contract quickly, can cause a woman to experience pain.Round ligament pain should only last for a few seconds. Stretching is the best way to loosen things up and prevent round ligament pain. Here are our top round ligament pain stretches to get you started: #1 CAT-COW Start on your hands and knees, shoulders above wrists and hips above knees. Breathe in and drop your stomach down, arching your back and looking upward. Then, breathe out and round your upper back toward the ceiling, allowing your head to drop and face your stomach. #2 HIP FLEXOR STRETCH In all fours position with your arm resting on a chair or birthing ball, bring the right leg forward while extending/straightening the left leg back until you feel a stretch in the front of the left thigh. Hold the position for 5-10 seconds. Repeat on the opposite side. #3 SIDE LYING SAVASANA Lie on your left side in a position, tuck your left arm beneath your head, and place a pillowbetween your legs to relieve pressure on your lower back. Flex your hips and remain in this position for several minutes. Inhale deeply as you stretch. #4 THE PELVIC CLOCK Sit on a birthing ball or chair with your feet flat on the floor. Bring your hands to your hips so you can feel the movement in your pelvis as you stretch. Now, imagine a clock resting on your pelvis--with your navel at 12 oclock and pubic bone at 6 oclock. Engage your abs and lengthen your spine. Inhale and tilt your pelvis toward a 3 oclock position. Continue on the inhale and move around the clock, creating a small arch in your lower back. Exhale and bring your pelvis to 9 oclock. Continue your exhale until you reach a neutral 12 oclock position. #5 BUTTERFLY STRETCH Sit upright on a firm surface. Place the soles of your feet together and pulse your legs up and down, like the wings of a butterfly. You should feel a stretch in your inner thighs. For an even deeperstretch, place your hands on your knees for resistance. Other Ways to Relieve Round Ligament Pain While round ligament pain stretches are the best way to reduce pain, there are a few other things you can try to alleviate the discomfort : A belly band to give your bump some extra support Hydration to improve circulation to your growing tissue Rest to allow your muscles to recover from any movement Massage to give that area some extra TLC Acetaminophen to get some medicated pain relief documented in this encounter Progress Notes * Yvrose Seymour CRNP - 05/17/2023 7:40 AM EST 15w6d No bleeding or movement. Reports cramping x1 week, no remedies. Can be on either side. Discussed round ligament pain - recommend Tylenol, warm bath, increase water intake. She is very anxious given prior miscarriage; will check cervical length for reassurance, as well as urine dip. Discussed MSAFP and role in screening for ONTD, she wants to check insurance coverage. Advised to complete by 23 weeks. Recommend flu shot, she accepts. She would feel more at ease returning in 2 weeks for FHR. Anatomy scan at 20 wks. AD Ritchie documented in this encounter Nursing Notes * Ronda Turner LPN - 05/17/2023 7:58 AM EST Patient here for flu injection. Patient doing well no complaints. Injection given IM as ordered. Patient tolerated well. Patient to follow up as directed. Patient instructed to call if any complications. Patient verbalized understanding of instructions given and her follow up appt for KATY. Injection site: Right Deltoid Medication Source: Dispensed stock medication * Cecile Dowell RN - 05/17/2023 7:32 AM EST Patient here for KATY 15w6d Having a lot of cramping No bleeding/leaking Pended anatomy documented in this encounter Miscellaneous Notes * Addendum Note - Cecile Dowell RN - 05/17/2023 8:34 AM ESTAddended by: CECILE DOWELL on: 05/17/2023 08:34 AM Modules accepted: Orders documented in this encounter Plan of Treatment Upcoming Encounters Date Type Department Care Team (Late st Contact Info) Description 05/17/2023 10:45 AM EST Imaging Radiology [address] [place] [address] Arrived 06/15/2023 12:45 PM EST Imaging Radiology [address] [place] [address] 05/12/2024 10:00 AM EST Office Visit Family Practice [address] [place] [address] Malinda Owens CRNP [address] [facility] [place] [address] Pending Results Name Type Priority Associated Diagnoses Date /Time US PELVIS TRANS-VAGINAL OB Medical Imaging Routine Encounter for supervision of other normal , unspecified trimester 05/17/2023 8:26 AM EST CULTURE, URINE, QUANTITATIVE Lab Routine Encounter for supervision of other normal , unspecified trimester Cramping complicating , antepartum 05/17/2023 8:34 AM EST Scheduled Orders Name Type Priority Associated Diagnoses Orde r Schedule US PREG SINGLE/1ST GEST, 14 WEEKS OR LATER Medical Imaging Routine Encounter for supervision of other normal , unspecified trimester Expected: 06/16/2023, Expires: 06/16/2024 URINALYSIS OBSTETRICS, POINT OF CARE Point of Care Testing - Unsolicited Results Routine Cramping complicating , antepartum Ordered: 05/17/2023 Health Maintenance Due Date Last Done Comments [...] Procedure Name Priority Date/Time Associated Diagnosis Comments URINALYSIS, POINT OF CARE (ENTER/EDIT) Routine 05/17/2023 Cramping complicating , antepartum documented in this encounter Results * URINALYSIS, POINT OF CARE (ENTER/EDIT) (05/17/2023) Color, Urine Yellow Yellow or Light Yellow Clarity, Urine Clear Clear Glucose, Urine Negative Negative mg/dL Bilirubin, Urine Negative Negative Ketone, Urine Negative Negative mg/dL Specific [place], Urine 1.020 1.003 - 1.030 Blood, Urine Negative Negative pH, Urine 7.5 5.0 - 7.5 units Protein, Urine Negative Negative mg/dL Urobilinogen, Urine 1.0 0.2 - 1.0 mg/dL Nitrite, Urine Negative Negative Esterase, Urine Small Negative Urine 05/17/2023 Yvrose DUONG LAB POINT O F CARE TEST ENTER/EDIT ORDERABLES documented in this encounter Visit Diagnoses Diagnosis Cramping complicating , antepartum- Primary Other specified complication, antepartum Encounter for supervision of other normal , unspecified trimester Class 1 obesity due to excess calories without serious comorbidity with body mass index (BMI) of 33.0 to 33.9 in adult Abnormal glucose tolerance in mother complicating Abnormal maternal glucose tolerance, complicating , childbirth, or the puerperium, unspecified as to episode of care Need for prophylactic vaccination and inoculation against influenza documented in this encounter
--- OUTSIDE RECORDS SUMMARY | 2023-10-30 18:08 | External Medical Summary | Summary of Care ---
Author Name Unknown Organization [facility] Address [address] [facility] [place] [address] Phone [phone] Care Team Providers Care Shoe Associate Name Role Phone Unavailable Primary Care Provider Unavailabl e Reason for Visit * Reason Onset Date Comments Test Results 06/19/2023 Encounter Details Date Type Department Care Team (Late st Contact Info) Description 06/19/2023 Telephone Gynecology/Obstetrics [facility] [address] [place] [address] Yvrose Seymour CRNP [address] [place] [id number] Test Results Allergies No known active allergiesdocumented [...] money to get more. Never true 01/19/2023 [place] Depression Scale Answer Date Recorded [place] Depression Scale Total 9 04/03/2023 The thought [...] Description 06/20/2023 4:00 PM EST [facility]medicine [facility] [place] [address] [place] [address] Kasia Segundo PA-C [address] [facility] [place] [address] 07/04/2023 3:00 PM EST Imaging Radiology [facility] 2nd [facility] 132 [facility] [place] [address] 05/12/2024 10:00 AM EST Office Visit Family Practice [facility] [address] [place] [address] Malinda Owens CRNP [address] [place] [address] Scheduled Orders Name Type Priority Associated Diagnoses [...]
--- OUTSIDE RECORDS SUMMARY | 2023-10-30 18:08 | External Medical Summary ---
Author Name Unknown Address Unknown Organization [id number]:[facility] - [address] [place] [id number] Laboratory Report Ordering Provider Test Date Status BOBBI SANTIAGO 05/17/2023 08:34:50 Final Observation Date Value Abnormality Reference (Units) Status Bacteria identified in Specimen by Culture 05/17/2023 08:34:50 No significant growth Final Test: Culture, Urine, Quanti tative
Specimen Source: Urine, Clean Catch
Specimen Type: Urine
Specimen Date: 05/17/2023 8:34 AM
Result Date: 05/18/2023 9:14 AM
Result Status: Final result
Resulting Lab: [facility]
[address]
[facility] [address]

CULTURE

No significant growth

null Performing Location [facility] - [address] [facility] [address]
--- OUTSIDE RECORDS SUMMARY | 2023-10-30 18:08 | External Medical Summary | Summary of Care ---
Author Name Unknown Organization [facility] Address [address] [place] [address] Phone [phone] Care Team Providers Care Lithographic Platemaker Name Role Phone Unavailable Primary Care Provider Unavailabl e Encounter Details Date Type Department Care Team (Late st Contact Info) Description 02/21/2023 Telephone Gynecology/Obstetrics [facility] [address] [place], [place] [phone] Maddi Parra [facility] [address] [place], [place] [phone] Allergies No known active allergiesdocumented as of this encounter (statuses as of 05/23/2023) Medications Medication Sig Dispensed Refills Start Date End Date Status 19 29-1 MG Oral Tablet Chewable Take by mouth. 0 Activ e documented as of this encounter (statuses as of 05/23/2023) Active Problems Problem Noted Date Diagnosed Date Abnormal glucose tolerance in mother complicatin g 04/19/2023 Overview: Failed early glucola. 3hr GTT ordered Encounter for supervision of other normal , unspecified trimester 04/03/2023 Class 1 obesity due to exces s calories without serious comorbidity with body mass index (BMI) of 33.0 to 33.9 in adult 04/03/2023 Overview: Early glucola documented as of this encounter (statuses as of 05/23/2023) Immunizations Name Administration Dates Next Due DTP [...] & Above, IM , (FLULAVAL or FLUZONE) 08/21/2019 Seasonal Influenza Virus Vac cine, Unspecified Formulation 04/08/2012,04/13/2010,04/09/2009 Seasonal Influenza, Split, I IV3, With Preserve, Inj 04/08/2012,04/13/2010 TDAP (age 10 and older)(Boostrix) 08/22/2019 TDAP (age 11 and older)(Adacel) 09/17/2008 Varicella Vaccine (Chicken Pox) 09/17/2008,11/07 documented as of this encounter Social History Tobacco Use Types Packs/Day Years Used Date Smoking Tobacco: Never Smokeless Tobacco: Never Alcohol Use Standard Drinks/Week Comments Yes 0 (1 standard drink = 0.6 oz pur e alcohol) socially Hunger Vital Sign Answer Date Recorded Within the past 12 months, y ou worried that your food would run out before you got the money to buy more. Never true 08/04/20 23 Within the past 12 months, t he food you bought just didn't last and you didn't have money to get more. Never true 01/19/2023 [place] Depression Scale Answer Date Recorded [place] Depression Scale Total 9 04/03/2023 The thought of harming myself has occurred to me . Never 04/03/2023 Sex and Gender Information Value Date Recorded Sex Assigned at Female 01/19/2023 1:52 PM EDT Gender Identity Female 01/19/2023 1:52 PM EDT Sexual Orientation Straight 01/19/2023 1: 52 PM EDT Job Start Date Occupation Industry Not on file Not on file Not on file documented as of this encounter Miscellaneous Notes * Telephone Encounter - Belkys Zaidi OSA - 02/21/2023 1:32 PM EDT Apt scheduled * Telephone Encounter - Eli Calles LPN - 02/21/2023 9:37 AM EDT Please call pt and get her scheduled for US olivia * Telephone Encounter - Eli Calles LPN - 02/21/2023 9:37 AM EDT ----- Message from Maddi Parra CNM sent at 02/21/2023 9:01 AM EDT ----- Called patient to let her know her beta hcg was 44.9, which is higher than on 01/26/23 when it was 4.5. I ordered an ultrasound to rule out retained products of conception versus a new . Please assist with scheduling an ultrasound today or tomorrow. She denies bleeding and cramping at this time. Thanks! Maddi Parra CNM documented in this encounter Plan of Treatment Upcoming Encounters Date Type Department Care Team (Late st Contact Info) Description 06/01/2023 8:15 AM EST Office Visit Gynecology/Obstetrics [facility] [address] [place] [address] Kina Capps PA-C [address] [place] [address] 06/15/2023 12:45 PM EST Imaging Radiology [facility] 2nd [facility] [place] [address] [place] [address] 05/12/2024 10:00 AM EST Office Visit Family Practice [facility] [address] [place] [address] Malinda Owens CRNP [address] [place] [address] Health Maintenance Due Date Last Done Comments [...]
--- OUTSIDE RECORDS SUMMARY | 2023-10-30 18:08 | External Medical Summary | Summary of Care ---
Author Name Unknown Organization [facility] Address [address] [place] [place] [address] Phone [phone] Care Team Providers Care Grades 1 Through 5 Teacher Name Role Phone Unavailable Primary Care Provider Unavailabl e Reason for Visit * Reason Comments Return Visit Encounter Details Date Type Department Care Team (Late st Contact Info) Description 06/20/2023 8:30 AM EST Office Visit Gynecology/Obstetric s [facility] [address] [place] [address] Indira Cleveland CRNP [address] [place] [address] Encounter for supervision of other normal , [...] money to get more. Never true 01/19/2023 [place] Depression Scale Answer Date Recorded [place] Depression Scale Total 9 04/03/2023 The thought [...] Sign Reading Time Taken Comments Blood Pressure 124/72 06/20/2023 8:27 AM EST Pulse - - Temperature - - Respiratory Rate - - Oxygen Saturation - - Inhaled Oxygen Concentration - - Weight 104.3 kg (230 lb) 06/20/2023 8:27 AM EST Height 175.3 cm (5' 9") 06/20/2023 8:27 AM EST Body Mass Index 33.97 06/20/2023 8:27 AM EST documented in this encounter Progress Notes * Indira Cleveland CRNP - 06/20/2023 9:07 AM EST 20w5d Vomited x1 on , feeling fine since. Has questions about labor, labor, FM. Unsure if feeling FM. No contractions that she is aware of. Had anatomy u/s last week, has u/s scheduled for missed anatomy. AD Miguel * Ronda Turner LPN - 06/20/2023 8:30 AM EST 20w5d Denies concerns. Vomiting x 1. Needs f/u for missed anatomy in 2 weeks. documented in this encounter Plan of Treatment Upcoming Encounters Date Type Department Care Team (Late st Contact Info) Description 06/20/2023 4:00 PM EST [facility]icine [facility] [address] Kasia Segundo PA-C [facility] [address] 07/04/2023 3:00 PM EST Imaging Radiology [facility] 2nd [facility] [address] [place] [address] 07/18/2023 8:00 AM EST Office Visit Gynecology/Obstetrics [facility] [address] [place] [address] Indira Cleveland CRNP [address] [place] [address] 05/12/2024 10:00 AM EST Office Visit Family Practice [facility] [address] [place] [address] Malinda Owens CRNP [address] [place] [address] Health Maintenance Due Date Last Done Comments [...]
--- OUTSIDE RECORDS SUMMARY | 2023-10-30 18:08 | External Medical Summary | Summary of Care ---
Author Name Unknown Organization [facility] Address [address] [place] [facility] [place] [address] Phone [phone] Care Team Providers Care Acupressure Therapist Name Role Phone Unavailable Primary Care Provider Unavailabl e Reason for Visit * Reason Onset Date Comments Return Visit Medication Administration 05/17/2023 Flu an d/or Pneumo Inj Encounter Details Date Type Department Care Team (Late st Contact Info) Description 05/17/2023 7:45 AM EST Office Visit Gynecology/Obstetric s [facility] [address] [place] [address] BackYvrose davis CRNP [address] [place] [address] Cramping complicating , antepartum*; Encounter for supervision [...] money to get more. Never true 01/19/2023 [place] Depression Scale Answer Date Recorded [place] Depression Scale Total 9 04/03/2023 The thought [...] Description 05/17/2023 10:45 AM EST Imaging Radiology [address] [place] [address] Arrived 06/15/2023 12:45 PM EST Imaging Radiology [address] [place] [address] 05/12/2024 10:00 AM EST Office Visit Family Practice [address] [place] [address] Malinda Owens CRNP 132 [facility] [place] [address] Pending Results Name Type Priority Associated Diagnoses [...] Negative Ketone, Urine Negative Negative mg/dL Specific [place], Urine 1.020 1.003 - 1.030 Blood, Urine [...]
--- OUTSIDE RECORDS SUMMARY | 2023-10-30 18:08 | External Medical Summary | Summary of Care ---
Author Name Unknown Organization [facility] Address [address] [facility] [place] [address] Phone [phone] Care Team Providers Care Radio Officer Name Role Phone Unavailable Primary Care Provider Unavailabl e Reason for Visit * Reason Onset Date Comments Return Visit Medication Administration 05/17/2023 Flu an d/or Pneumo Inj Encounter Details Date Type Department Care Team (Late st Contact Info) Description 05/17/2023 7:45 AM EST Office Visit Gynecology/Obstetric s [facility] [address] [place] [address] BackYvrose davis CRNP [address] [place] [address] Cramping complicating , antepartum*; Encounter for supervision [...] money to get more. Never true 01/19/2023 [place] Depression Scale Answer Date Recorded [place] Depression Scale Total 9 04/03/2023 The thought [...] Description 05/17/2023 10:45 AM EST Imaging Radiology [address] [place] [address] Arrived 06/15/2023 12:45 PM EST Imaging Radiology [address] [place] [address] 05/12/2024 10:00 AM EST Office Visit Family Practice [address] [place] [address] Malinda Owens CRNP 132 [facility] [place] [address] Pending Results Name Type Priority Associated Diagnoses [...] Negative Ketone, Urine Negative Negative mg/dL Specific [place], Urine 1.020 1.003 - 1.030 Blood, Urine [...]
--- OUTSIDE RECORDS SUMMARY | 2023-10-30 18:09 | External Medical Summary | Summary of Care ---
Author Name Unknown Organization [facility] Address [address] [place] [facility] [place] [address] Phone [phone] Care Team Providers Care Lighting Engineering Technician Name Role Phone Unavailable Primary Care Provider Unavailabl e Reason for Visit * Reason Comments Physical-Exam Establish care. Had diarrhea and cramping for a few weeks 2 weeks ago but has since resolved. LAWYER CRIMINAL ok'd Imodium. Pt is 15 weeks Encounter Details Date Type Department Care Team (Late st Contact Info) Description 05/11/2023 9:20 AM EST Office Visit Family Practice [facility] [place] [address] Malinda Owens CRNP 132 [facility] [place] [address] Well adult exam*; Diarrhea, unspecified type; Encounter for supervision of normal first in first trimester Allergies No known active allergiesdocumented as of this encounter (statuses as of 05/11/2023) Medications Medication Sig Dispensed Refills Start Date End Date Status 19 29-1 MG Oral Tablet Chewable Take by mouth. 0 Active Doxylamine Succinate (Sleep) 25 MG Oral Tablet (Unisom SleepTabs) Take 1 Tablet by mouth at bedtime as needed. 0 Active Vitamin B-6 25 MG Oral Tablet Take by mouth. 0 05/11/2023 Discontin ued( Medication List Clean Up) documented as of this encounter (statuses as of 05/11/2023) Active Problems Problem Noted Date Diagnosed Date [...] as of this encounter (statuses as of 05/11/2023) Immunizations Name Administration Dates Next Due DTP [...] Date Smoking Tobacco: Never Smokeless Tobacco: Never Tobacco Cessation:Counseling Given: Not Answered Alcohol Use Standard Drinks/Week Comments Not Currently [...] money to get more. Never true 01/19/2023 [place] Depression Scale Answer Date Recorded [place] Depression Scale Total 9 04/03/2023 The thought [...] Sign Reading Time Taken Comments Blood Pressure 112/78 05/11/2023 9:17 AM EST Pulse 72 05/11/2023 9:17 AM EST Temperature 37.2 C (98.9 F) 05/11/2023 9:17 AM ES T Respiratory Rate 16 05/11/2023 9:17 AM EST Oxygen Saturation 98% 05/11/2023 9:17 AM EST Inhaled Oxygen Concentration - - Weight 102.6 kg (226 lb 4.8 oz) 05/11/2023 9:17 AM EST Height 175.3 cm (5' 9") 05/11/2023 9:17 AM EST Body Mass Index 33.42 05/11/2023 9:17 AM EST documented in this encounter Progress Notes * Malinda Oewns CRNP - 05/11/2023 9:22 AM EST Images from the original note were not included. Follow up Family Medicine Visit History of Present Illness Yuli Gutierrez is a very pleasant 28 year old female with PMH listed below presenting with Physical-Exam. Had diarrhea and cramping for a few weeks 2 weeks ago but has since resolved. No fever or chills. Minimal bleeding on toilet paper, unsure of source vaginal or GI. She had regular BM prior to . More prone to diarrhea since , now resolved. LAWYER CRIMINAL ok'd Imodium. Pt is 15 weeks , due in October 2023. 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 Tobacco Use Smoking status: Never Smokeless tobacco: Never Substance and Sexual Activity Alcohol use: Not Currently Drug use: No Sexual activity: Yes Partners: Male Other Topics Concern Not on file Social History Narrative Not on file Social Determinants of Health Financial Resource Strain: Not on file Food Insecurity: No Food Insecurity (01/19/2023) Hunger Vital Sign Worried About Running Out of Food in the Last Year: Never true Ran Out of Food in the Last Year: Never true Transportation Needs: Not on file Physical Activity: Not on file Stress: Not on file Social Connections: Not on file Intimate Partner Violence: Not on file Housing Stability: Not on file PMH: No past medical history on file. Past Surgical History: Procedure Laterality Date DENTAL SURGERY PROCEDURE NEC Age 12 Outpatient Medications Marked as Taking for the 05/11/23 encounter (Office Visit) with Malinda Owens CRNP Medication Sig Doxylamine Succinate (Sleep) 25 MG Oral Tablet (Unisom SleepTabs) Take 1 Tablet by mouth at bedtimeas needed. 19 29-1 MG Oral Tablet Chewable Take by mouth. Review of patient's allergies indicates: No Known Allergies Most Recent Immunizations Administered Date(s) Administered DTP Vaccine 01/02/1997 DTaP - Dipth/Tet/Acell Pertussis (Infanrix), Peds 01/18/2000 HEP A - Hepatitis A (Adult > 18 yrs) 08/22/2019 HPV Vaccine, 4-Valent 11/13/2012 Haemophilius B (HIB), unspecified 1994 Hep A - Hepatitis A (ped/adole, 1-18 Yrs) 11/13/2012 Hepatitis A Vaccine 02/02/2010 Hepatitis B, 0-19 yrs 02/17/1995 IPV - Polio Virus Vaccine (Inact) 01/18/2000 MMR - Measles/Mumps/Rubella Vaccine 01/18/2000 Meningococcal Conjugate Vaccine (Menactra/Menveo) 02/02/2010 Meningococcal MCV4P Conjugate Vaccine (Menactra) 11/13/2012 OPV - Polio Virus Vaccine (Oral) 01/18/2000 SEASONAL INFLUENZA, PF, 6 M & Above, IM , (FLULAVAL or FLUZONE) 08/21/2019 Seasonal Influenza Virus Vaccine, Unspecified Formulation 04/08/2012 Seasonal Influenza, Split, IIV3, With Preserve, Inj 04/08/2012 TDAP (age 10 and older)(Boostrix) 08/22/2019 TDAP (age 11 and older)(Adacel) 09/17/2008 Varicella Vaccine (Chicken Pox) 09/17/2008 Review of Systems: Physical Exam BP 112/78 (BP Site: Left Arm, BP Position: Sitting, BP Cuff Size: Regular) | Pulse 72 | Temp 37.2 C (98.9 F) (Tympanic) | Resp 16 | Ht 1.753 m (5' 9") | Wt 102.6 kg (226 lb 4.8 oz) | SpO2 98% | BMI 33.42 kg/m | BSA 2.24 m Physical Exam Constitutional: Appearance: Normal appearance. She is well-developed and well-groomed. HENT: Head: Normocephalic. Right Ear: Tympanic membrane, ear canal and external ear normal. Left Ear: Tympanic membrane, ear canal and external ear normal. Nose: Nose normal. Mouth/Throat: Mouth: Mucous membranes are moist. Pharynx: Oropharynx is clear. Eyes: Extraocular Movements: Extraocular movements intact. Conjunctiva/sclera: Conjunctivae normal. Pupils: Pupils are equal, round, and reactive to light. Cardiovascular: Rate and Rhythm: Normal rate and regular rhythm. Pulses: Normal pulses. Heart sounds: Normal heart sounds. Pulmonary: Effort: Pulmonary effort is normal. Breath sounds: Normal breath sounds. Abdominal: General: Bowel sounds are normal. Palpations: Abdomen is soft. Musculoskeletal: General: Normal range of motion. Cervical back: Normal range of motion. Skin: General: Skin is warm and dry. Capillary Refill: Capillary refill takes less than 2 seconds. Neurological: General: No focal deficit present. Mental Status: She is alert. Psychiatric: Mood and Affect: Mood normal. Assessment and Plan 1. Well adult exam Manager Therapy diet and exercise - plan to return gym if nausea/fatigue improved in second trimester PAP wnl 2022 2. Diarrhea, unspecified type Self limiting +RLQ abdominal pain at that time Discussed s/sx to watch - fever, blood, black tarry stools, severe abdominal pain 3. Encounter for supervision of normal first in first trimester F/u ob Wrap-Up I have advised the patient to call our office with any worsening or new symptoms. I spent a total of 20-29 minutes (exact time 28 mins) on the date of service in preparation, delivery, and documentation of the care provided to Yuli Gutierrez excluding any time spent in the performance of separately billed services. Malinda Owens, MSN, AD [facility] documented in this encounter Plan of Treatment Upcoming Encounters Date Type Department Care Team (Late st Contact Info) Description 05/17/2023 7:45 AM EST Office Visit Gynecology/Obstetrics [facility] [address] [place] [address] BackerYvrose CRNP [address] [place] [address] 05/12/2024 10:00 AM EST Office Visit Family Practice [facility] [address] [place] [address] Malinda Owens CRNP [address] [place] [address] Health Maintenance Due Date Last Done Comments COVID-19 Vaccine (#1) 1994 Depression Screening 2006 GARDASIL-HPV IMMUNIZATION SERIES (3 - 3-dose series) 02/05/2013 11/13/2012, 03/21/2012 Influenza Vaccine (FLU shot) (#1) 2023 08/21/2019, 04/08/2012, 04/08/2012, Additional history exists Pap Smear 01/29/2026 01/29/2023, 11/17, 07/17/2018, Additional history exists DTaP,Tdap,and Td Vaccines (8 - Td or Tdap) 08/21/2029 08/22/2019, 09/17/2008, 01/18/2000, Additional history exists Hepatitis B Completed 02/17/1995, 07/1993, 1994 MENINGOCOCCAL (MENACTRA/MENVEO) Completed 11/13/2012, 02/02/2010 Pneumococcal Vaccine: Pediatrics (0 to 5 Years) and At-Risk Patients (6 to 64 Years) Aged Out No longer eligible based on patient's age to complete this topic documented as of this encounter Medical Devices Not on filedocumented as of this encounter Visit Diagnoses Diagnosis Well adult exam- Primary Routine general medical examination at a health care facility Diarrhea, unspecified type Encounter for supervision of normal first in first trimester Supervision of normal first documented in this encounter
--- OUTSIDE RECORDS SUMMARY | 2023-10-30 18:09 | External Medical Summary | Summary of Care ---
Author Name Unknown Organization [facility] Address [address] [place] [address] Phone [phone] Care Team Providers Care Mathematics Technician Name Role Phone Unavailable Primary Care Provider Unavailabl e Encounter Details Date Type Department Care Team (Late st Contact Info) Description 05/15/2023 Telephone Gynecology/Obstetrics [facility] [address] [place] [address] Praveen Carranza MD [address] [facility] [place] [address] Allergies No known active allergiesdocumented as of this encounter (statuses as of 05/15/2023) Medications Medication Sig Dispensed Refills Start Date End Date Status 19 29-1 MG Oral Tablet Chewable Take by mouth. 0 Active Doxylamine Succinate (Sleep) 25 MG Oral Tablet (Unisom SleepTabs) Take 1 Tablet by mouth at bedtime as needed. 0 Active documented as of this encounter (statuses as of 05/15/2023) Active Problems Problem Noted Date Diagnosed Date [...] as of this encounter (statuses as of 05/15/2023) Immunizations Name Administration Dates Next Due DTP [...] money to get more. Never true 01/19/2023 [place] Depression Scale Answer Date Recorded [place] Depression Scale Total 9 04/03/2023 The thought [...] Telephone Encounter - Em Amato RN - 05/15/2023 4:14 PM EST Pt states that she started a few days ago with pain on her lower part of her belly. She feels that this is constant. Happens not only with movement but at rest. She denies any UTI symptoms. Denies any bleeding. She has been having diarrhea at times. She has not tried imodium. She was seen by her pcp for this last week but it had resolved by the time she got there but comes and goes now. Denies any fevers or chills. She denies any change in her appetite. She does admit to not drinking as much asnormal. Advised to push fluids and try heat and tylenol. If no relief should call back. Pt has appton . ADvised to keep that and call back with no relief. documented in this encounter Plan of Treatment Upcoming Encounters Date Type Department Care Team (Late st Contact Info) Description 05/17/2023 7:45 AM EST Office Visit Gynecology/Obstetrics [address] [place] [address] Yvrose Seymour CRNP [address] [place] [address] 05/12/2024 10:00 AM EST Office Visit Family [facility] [address] [place] [address] Malinda Owens CRNP [address] [place] [address] Health Maintenance Due Date Last Done Comments [...]
--- OUTSIDE RECORDS SUMMARY | 2023-10-30 18:09 | External Medical Summary | Summary of Care ---
Author Name Unknown Organization [facility] Address [address] [facility] [place] [address] Phone [phone] Care Team Providers Care Parking Officer Name Role Phone Unavailable Primary Care Provider Unavailabl e Reason for Visit * Reason Onset Date Comments Abnormal Test Results 04/19/2023 Encounter Details Date Type Department Care Team (Late st Contact Info) Description 04/19/2023 Telephone Gynecology/Obstetrics [facility] [address] [place] [id number] Indira Cleveland CRNP [address] [place] [id number] Abnormal Test Results Allergies No known active allergiesdocumented as of this encounter (statuses as of 05/14/2023) Medications Medication Sig Dispensed Refills Start Date [...] as of this encounter (statuses as of 05/14/2023) Active Problems Problem Noted Date Diagnosed Date [...] as of this encounter (statuses as of 05/14/2023) Immunizations Name Administration Dates Next Due DTP [...] money to get more. Never true 01/19/2023 [place] Depression Scale Answer Date Recorded [place] Depression Scale Total 9 04/03/2023 The thought [...] Telephone Encounter - Belkys Zaidi OSA - 04/19/2023 1:44 PM EDT Apt scheduled * Telephone Encounter - Lolis Vasquez LPN - 04/19/2023 1:07 PM EDT Patient notified of abnormal glucola. The order has been placed in [place]. Patient. advised to be NPO after 10pm the night before the test.The patient must stay on the premises for the entire time of the test. Patient counseled to take something to eat for after testing. Please help pt schedule 3 hour gtt * Telephone Encounter - Indira Cleveland CRNP - 04/19/2023 1:03 PM EDT Please notify pt that glucola elevated (169). Needs 3hr GTT. Orders placed. documented in this encounter Plan of Treatment Upcoming Encounters Date Type Department Care Team (Late st Contact Info) Description 05/17/2023 7:45 AM EST Office Visit Gynecology/Obstetrics [facility] [address] [place] [id number] Yvrose Seymour CRNP [address] [place] [id number] 05/12/2024 10:00 AM EST Office Visit Family Practice [facility] [address] [place] [id number] Malinda Owens CRNP [address] [place] [address] Health Maintenance Due Date Last Done Comments [...] as of this encounter Visit Diagnoses Diagnosis Abnormal glucose tolerance in mother complicating - Primary Abnormal maternal glucose tolerance, complicating , childbirth, or the puerperium, unspecified as to episode of care documented in this encounter
--- NOTE | 2023-10-30 18:36 | Anesthesia Procedure Note ---
Date of Service October 30, 2023 Anesthesia Epidural Re-Dose Vital Signs Temp Pulse Resp BP Pulse Ox 36.9 C 82 18 111/61 96 10/30/23 16:30 10/30/23 18:32 10/30/23 18:00 10/30/23 18:32 10/30/23 18:31 Notes Pain Intensity: 5 Dilatation (cm): 4.5 Effacement (%): 75 Called by nursing to evaluate epidural as the patient is having increased pain. The epidural was re-dosed with the following medications (all medications via epidural route) after negative aspiration of the epidural catheter for CSF/HEME. 2% lidocaine 5cc After Epidural Re-Dose Mental Status: alert / awake / arousable and participated in evaluation Pain: improving with treatment Airway Patency, RR, SpO2: stable & adequate BP & HR: stable & adequate
[2023-10-30] MEDS: fentaNYL citrate PF 100 MCG/2 ML VIAL ONE ×2 (19:06→23:52)
[2023-10-30] MEDS: LIDOCAINE 2%/EPINEPHRINE 1:200,000 20 ML PF ONE ×2 (19:06→23:54)
[2023-10-30] MEDS: OXYTOCIN 30 UNITS/LR 1,003 ML IV SCH (19:06)
[2023-10-30] MEDS: BUPIVACAINE 0.25% PF 30 ML VIAL ONE ×2 (19:06→23:52)
[2023-10-30] MEDS: fentANYL 2 MCG/ML BUPIVacaine 0.125%-NSS 100ML BAG ONE ×2 (19:06→23:53)
[2023-10-30] MEDS: SODIUM CHLORIDE 0.9% PF INJ 10 ML VIAL ONE ×2 (19:06→23:55)
[2023-10-30] MEDS: LIDOCAINE 2%/EPINEPHRINE 1:200,000 20 ML PF EPI STA (19:07)
[2023-10-30] MEDS: SODIUM CHLORIDE 0.9% PF INJ 10 ML VIAL EPI STA (19:07)
[2023-10-30] MEDS: fentaNYL citrate PF 100 MCG/2 ML VIAL EPI STA (19:07)
[2023-10-30] MEDS: BUPIVACAINE 0.25% PF 30 ML VIAL EPI STA (19:07)
[2023-10-30] MEDS: NURSING L&D Epidural Breakthrough Pain Update ONE (19:07)
[2023-10-30] MEDS: ePHEDrine sulfate 50 MG/ML AMP ONE ×2 (19:29→23:55)
[2023-10-30] MEDS: fentaNYL citrate PF 100 MCG/2 ML VIAL EPI PRN (20:38)
[2023-10-30] MEDS: BUPIVACAINE 0.25% PF 30 ML VIAL EPI PRN (21:21)
[2023-10-30] MEDS: SODIUM CHLORIDE 0.9% PF INJ 10 ML VIAL EPI PRN (21:22)
--- NOTE | 2023-10-30 21:25 | Anesthesia Procedure Note ---
Date of Service October 30, 2023 Anesthesia Epidural Re-Dose Vital Signs Temp Pulse Resp BP Pulse Ox 36.8 C 77 18 117/68 94 10/30/23 20:30 10/30/23 21:18 10/30/23 20:30 10/30/23 21:18 10/30/23 21:16 Notes Pain Intensity: 8 Dilatation (cm): 7.5 Effacement (%): 100 Heart Rate: 130 After Epidural Re-Dose Mental Status: alert / awake / arousable and participated in evaluation Airway Patency, RR, SpO2: stable & adequate BP & HR: stable & adequate Additional Notes: @ 2113, Pt epidural was bolused w/ 12 ml 0.17% bupivacaine + 50 mcgs fentanyl using incremental aspiration and injections. Vital signs stable.
--- NOTE | 2023-10-30 22:10 | Obstetrical Progress Note ---
Date of Service October 30, 2023 Assessment & Plan Admission and Anticipated Discharge Date Admission Date: October 30, 2023 Subjective FHR; CAT1 Ctx 2-4 Pit 15mu Ve 7/90/-2 AROM- clear fluid anticipate VD Results & Data Vital Signs (Past 12 Hours) Vital Signs Temp Pulse Resp BP Pulse Ox 10/30/23 22:08 92 H 95 10/30/23 22:03 91 H 93 10/30/23 22:00 18 10/30/23 22:00 37.0 C 18 10/30/23 21:58 93 H 95 10/30/23 21:51 87 95 10/30/23 21:47 81 110/60 10/30/23 21:46 90 97 10/30/23 21:41 93 H 94 10/30/23 21:36 77 92 10/30/23 21:31 77 117/65 93 10/30/23 21:30 18 10/30/23 21:30 18 10/30/23 21:26 72 92 10/30/23 21:21 82 96 10/30/23 21:18 77 117/68 10/30/23 21:16 88 94 10/30/23 21:11 85 94 10/30/23 21:10 81 93 10/30/23 21:06 88 95 10/30/23 21:03 90 92 10/30/23 21:01 94 10/30/23 21:01 92 H 10/30/23 21:01 90 108/67 10/30/23 20:57 79 93 10/30/23 20:56 83 98 10/30/23 20:51 94 10/30/23 20:51 92 H 10/30/23 20:51 92 H 93 10/30/23 20:47 96 H 110/66 10/30/23 20:46 88 93 10/30/23 20:44 85 94 10/30/23 20:41 84 97 10/30/23 20:38 88 93 10/30/23 20:36 97 H 95 10/30/23 20:32 87 94 10/30/23 20:31 87 96 10/30/23 20:30 18 10/30/23 20:30 36.8 C 18 10/30/23 20:26 85 97 10/30/23 20:23 92 H 94 10/30/23 20:21 87 95 10/30/23 20:17 94 10/30/23 20:17 80 05 20:17 79 126/62 10/30/23 20:16 81 97 10/30/23 20:12 78 94 10/30/23 20:11 86 98 10/30/23 20:06 88 96 10/30/23 20:05 83 94 10/30/23 20:03 88 113/63 10/30/23 20:01 87 95 10/30/23 19:58 95 H 93 10/30/23 19:56 90 95 10/30/23 19:51 78 96 10/30/23 19:49 89 125/74 10/30/23 19:47 91 H 93 10/30/23 19:46 79 96 10/30/23 19:41 90 96 10/30/23 19:36 84 98 10/30/23 19:33 86 146/68 H 94 10/30/23 19:31 94 H 97 10/30/23 19:26 97 H 97 10/30/23 19:21 76 97 10/30/23 19:17 92 H 117/70 94 10/30/23 19:16 85 96 10/30/23 19:11 80 98 10/30/23 19:06 87 97 10/30/23 19:02 90 109/58 L 10/30/23 19:01 90 96 10/30/23 18:56 82 98 10/30/23 18:51 83 97 10/30/23 18:46 96 10/30/23 18:46 78 10/30/23 18:46 77 129/62 10/30/23 18:44 79 119/58 L 10/30/23 18:41 83 112/60 96 10/30/23 18:38 86 120/59 L 10/30/23 18:36 84 97 10/30/23 18:35 86 124/61 10/30/23 18:32 82 111/61 10/30/23 18:31 82 96 10/30/23 18:30 77 18 105/55 L 10/30/23 18:26 75 142/62 H 96 10/30/23 18:21 81 96 10/30/23 18:17 85 94 10/30/23 18:16 86 94 10/30/23 18:15 80 136/60 10/30/23 18:11 77 96 10/30/23 18:06 84 97 10/30/23 18:01 76 97 10/30/23 18:00 75 18 114/64 10/30/23 17:56 75 97 10/30/23 17:51 78 97 10/30/23 17:46 70 97 10/30/23 17:44 71 97/55 L 10/30/23 17:41 68 97 10/30/23 17:36 69 98 10/30/23 17:31 70 98 10/30/23 17:30 66 20 105/54 L 10/30/23 17:26 70 98 10/30/23 17:21 70 99 10/30/23 17:16 67 96 10/30/23 17:14 67 98/52 L 10/30/23 17:11 69 97 10/30/23 17:06 68 96 10/30/23 17:01 81 97 10/30/23 17:00 18 10/30/23 17:00 18 10/30/23 16:59 73 123/58 L 10/30/23 16:56 70 97 10/30/23 16:52 88 109/65 10/30/23 16:51 92 H 98 10/30/23 16:47 69 113/63 10/30/23 16:46 91 H 98 10/30/23 16:42 88 107/68 10/30/23 16:41 79 98 10/30/23 16:40 20 10/30/23 16:40 20 10/30/23 16:38 71 114/69 10/30/23 16:36 70 98 10/30/23 16:31 75 94/66 L 98 10/30/23 16:30 18 10/30/23 16:30 36.9 C 18 10/30/23 16:29 77 114/58 L 10/30/23 16:27 83 116/57 L 10/30/23 16:26 80 97 10/30/23 16:25 67 123/63 10/30/23 16:24 71 121/62 10/30/23 16:22 18 10/30/23 16:22 18 10/30/23 16:21 85 108/71 97 10/30/23 16:19 80 110/69 10/30/23 16:16 86 99 10/30/23 16:11 84 100 10/30/23 15:36 72 104/54 L 10/30/23 14:32 69 117/67 10/30/23 13:30 67 115/56 L 10/30/23 12:47 72 102/54 L 10/30/23 12:20 36.9 C 20 10/30/23 12:18 75 106/62
[2023-10-30] MEDS: ePHEDrine sulfate 50 MG/ML AMP IV PRN (23:51)
[2023-10-31] MEDS: METHYLERGONOVINE MALEATE 0.2 MG/ML AMP IM ONE (04:15)
[2023-10-31] MEDS: miSOPROStoL 200 MCG TAB PR ONE (04:55)
[2023-10-31] MEDS ORDERED: OXYTOCIN 30 UNITS/NSS 30 UNITS/500 ML BAG IV PRN (05:15)
[2023-10-31] MEDS ORDERED: HYDROCORTISONE ACETATE 25 MG SUPP PR PRN (05:15)
--- NOTE | 2023-10-31 05:20 | Delivery Summary ---
Vaginal Delivery Summary Date of Service October 31, 2023 Vaginal Delivery Summary DELIVERY NOTE Patient delivered a live infant male in left occiput anterior presentation there was no nuchal cord which was easily reduced. was delivered and placed on mother's abdomen. Delayed cord clamping was performed. 8,9 Cord blood is obtained Cord gasses are not obtained Meconium is absent Placenta is spontaneously delivered. Placenta appears grossly normal and has 3 vessel cord Inspection of the perineum showed a third degree midline laceration and right sulcus tear Laceration is repaired in layers with 2-0 Vicryl in layers Rectal exam post repair showed good sphincter tone no sutures palpated in the rectum. Quantitative blood loss is 986 cc per 's weight is pending Mother and baby are stable in in the recovery
[2023-10-31] MEDS: BENZOCAINE 20% SPRY 85 APPLN/85 GM CAN EXT PRN (05:48)
[2023-10-31] MEDS: IBUPROFEN 600 MG TAB PO PRN (05:49)
[2023-10-31] MEDS: DIPHTHER/TETAN/PERTUS Vaccine (Tdap, Adol/Adult) 0.5mL IM ONE (06:44)
[2023-10-31] MEDS ORDERED: SODIUM CHLORIDE 0.9% 250 ML IV PRN (06:49)
--- NOTE | 2023-10-31 07:02 | Anesthesia Procedure Note ---
Date of Service October 31, 2023 Anesthesia Post Epidural Note Vital Signs Vital Signs: Temp Pulse Resp BP Pulse Ox 37.0 C 90 18 96/68 L 73 L 10/31/23 05:26 10/31/23 06:21 10/31/23 06:21 10/31/23 06:21 10/31/23 04:01 Pain Intensity Bilateral Abdomen: Pain Intensity: 5 Bilateral Back: Pain Intensity: 8 Notes Mental Status: alert / awake / arousable and participated in evaluation Nausea / Vomiting: adequately controlled Pain: adequately controlled Airway Patency, RR, SpO2: stable & adequate BP & HR: stable & adequate Hydration State: stable & adequate Neuraxial Anesthesia: was administered and sensory block is resolving Anesthetic Complications: no major complications apparent and Pt Satisfied with anesthetic care Epidural: Removed without complications and With tip intact
[2023-10-31] MEDS: PRENATAL VITAMIN 1 TAB PO SCH (09:29)
[2023-10-31] MEDS: DOCUSATE SODIUM 100 MG CAP PO SCH (09:29)
[2023-10-31] MEDS: ACETAMINOPHEN 325 MG TAB PO PRN (12:35)
[2023-11-01 06:48] LABS: Hematocrit (blood only) 23.5 % (37.0-47.0); Hemoglobin 7.9 g/dl (12.0-16.0); Mean Corpuscular Hemoglobin 33.3 pg (25.0-34.0); Mean Corpuscular Hgb Conc 33.6 g/dL (32.0-36.0); Mean Corpuscular Volume 99.2 fL (80.0-100.0); Mean Platelet Volume 10.4 fL (9.4-12.4); Platelet Count 134 K/uL (130-400); RDW Coefficient of Variation 13.1 % (11.5-14.5); RDW Standard Deviation 46.6 fL (36.4-46.3); Red Blood Count 2.37 M/uL (4.20-5.40); White Blood Count 14.25 K/ul (4.8-10.8)
--- NOTE | 2023-11-01 09:37 | Obstetrical Progress Note ---
Date of Service November 01, 2023 Assessment & Plan (1) Anemia, : PPD #1 pt doing well Anemia. No tachycardia starting pt on ferrous sulphate Results & Data Vital Signs (Past 12 Hours) Vital Signs Temp Pulse Resp BP Pulse Ox O2 Del Method 11/01/23 08:00 36.3 C L 78 18 94/60 L 96 Room Air 11/01/23 03:35 36.6 C 84 18 101/67 95 Room Air 10/31/23 23:15 36.7 C 68 18 98/65 L 96 Room Air
[2023-11-01] MEDS ORDERED: FERROUS SULFATE 325 MG/7.4 ML UDP PO SCH (09:45)
[2023-11-01] MEDS ORDERED: Nursing to Pharmacy Communication SCH (10:30)
[2023-11-01] MEDS: FERROUS SULFATE 325 MG TAB PO SCH (12:26)
[2023-11-01] MEDS: bisacodyL 5 MG TABEC PO SCH (19:45)
[2023-11-01 21:52] VITALS: RESP 18
[2023-11-01 23:18] VITALS: O2SAT 96
[2023-11-02] MEDS ORDERED: bisacodyL 10 MG SUPP PR PRN
[2023-11-02 06:43] LABS: Hematocrit (blood only) 23.2 % (37.0-47.0); Hemoglobin 7.7 g/dl (12.0-16.0)
[2023-11-02 07:51] VITALS: BP 97/60; PULSE 62; TEMP 97.7
--- NOTE | 2023-11-02 09:18 | Obstetrical Progress Note ---
Date of Service November 02, 2023 Assessment & Plan Admission and Anticipated Discharge Date Admission Date: October 30, 2023 Subjective Patient is seen and examined. She feels well, no complaints. Ambulating without dizziness Voiding without difficulty Tolerating regular diet with out N&V Bleeding is minimal No fever/ chills/ CP/ SOB/ N&V/ Leg pain Breast feeding without problems Vital Signs Temp Pulse Resp BP Pulse Ox O2 Del Method 11/02/23 08:49 36.5 C 62 18 97/60 L 96 11/02/23 07:45 Room Air 11/02/23 07:45 36.5 C 62 18 97/60 L 96 Room Air 11/02/23 03:00 36.6 C 64 18 100/63 96 Room Air 11/01/23 23:00 36.5 C 64 18 94/58 L 96 Room Air Lab Results 10/30/23 10/30/23 10/30/23 Range/Units 08:33 09:21 10:08 WBC 7.98 (4.8-10.8) K/ul RBC 3.36 L (4.20-5.40) M/uL Hgb 11.1 L (12.0-16.0) g/dl Hct 32.7 L (37.0-47.0) % MCV 97.3 (80.0-100.0) fL MCH 33.0 (25.0-34.0) pg MCHC 33.9 (32.0-36.0) g/dL RDW Std Deviation 44.4 (36.4-46.3) fL RDW Coeff of Kare[place] 12.7 (11.5-14.5) % Plt Count 149 (130-400) K/uL MPV 10.3 (9.4-12.4) fL POC Glucose 76 (70-99) mg/dl RPR Nonreactive (Nonreactive) Blood Type A Positive Antibody Screen NEGATIVE 11/01/23 11/02/23 Range/Units 06:12 06:04 WBC 14.25 H (4.8-10.8) K/ul RBC 2.37 L (4.20-5.40) M/uL Hgb 7.9 L D 7.7 L (12.0-16.0) g/dl Hct 23.5 L 23.2 L (37.0-47.0) % MCV 99.2 (80.0-100.0) fL MCH 33.3 (25.0-34.0) pg MCHC 33.6 (32.0-36.0) g/dL RDW Std Deviation 46.6 H (36.4-46.3) fL RDW Coeff of Karey 13.1 (11.5-14.5) % Plt Count 134 (130-400) K/uL MPV 10.4 (9.4-12.4) fL POC Glucose (70-99) mg/dl RPR (Nonreactive) Blood Type Antibody Screen PE: General: Alert, orientedx3, NAD Abd: soft, NT, fundus firm, below Umbilicus Perineum intact, Lochia rubra minimal Ext; NT, no edema AP: 28 yo s/p , ppd# 2 VSS Afebrile doing well Continue routine care Anemic, asymptomatic, offered IV iron and she accepted All questions were answered D/C home , f/u in office Results & Data Vital Signs (Past 12 Hours) Vital Signs Temp Pulse Resp BP Pulse Ox O2 Del Method 11/02/23 08:49 36.5 C 62 18 97/60 L 96 11/02/23 07:45 Room Air 11/02/23 07:45 36.5 C 62 18 97/60 L 96 Room Air 11/02/23 03:00 36.6 C 64 18 100/63 96 Room Air 11/01/23 23:00 36.5 C 64 18 94/58 L 96 Room Air
[2023-11-02] MEDS: IRON SUCROSE 200 MG in 0.9 % SODIUM CHLORIDE 100 ML IV ONE (09:24)
== END 2023-11-02 11:30 | disposition home health service (06) | DRG 768 ==
LOC: 4S1 07:46 → 4E2 10-31 08:30

== ENCOUNTER 2024-09-05 09:52 | Inpatient (IN) ==
--- NOTE | 2024-09-05 10:22 | XRay Report ---
XR chest 1V portable CLINICAL HISTORY: Sepsis COMPARISON STUDY: None FINDINGS: Right chest port tip is at the cavoatrial junction. Heart size and pulmonary vasculature ar e normal. No effusion, consolidation, or pneumothorax. IMPRESSION: No acute findings. ACT 112: Negative or not required by law. Electronically signed by: Shayan Gomez M.D. 09/05/2024 10:21 AM
--- NOTE | 2024-09-05 10:36 | Emergency Department Note ---
Impression & Plan Febrile neutropenia, Immunosuppressed due to chemotherapy, Triple negative breast cancer, Hypomagnesemia ED Provider Note NAME: FLACO CAMACHO AGE: 29 SEX: F : 1995 ARRIVES VIA: Walk-In INFORMANT: Patient ED PROVIDER(S): Julián Ma MD CHIEF COMPLAINT: Fever, neutropenia, breast cancer patient, referred PLAN: Disposition: Admit MEDICAL DECISION MAKING: The patient is a pleasant 29-year-old woman with a past medical history of triple negative breast cancer who presents to the emergency department via walk- in referred by the cancer center for fever and hypotension in the setting of the patient feeling unwell for the past several days. Patient has any cough or congestion, chest pain or shortness of breath. She reports feeling dizzy and weak with intermittent nausea. She denies any vomiting or diarrhea. She denies any urinary symptoms. Patient is receiving chemotherapy with her last treatment last week. On presentation the patient is febrile to 39.5 with heart in the 120s and blood pressure 80s/60s and vital signs otherwise stable. O2 saturation is 98% on room air with normal respiratory effort. She appears clinically dry. Lungs are clear. Right upper chest wall port site is clean dry intact without evidence of infection or tenderness. Abdomen is benign. Sepsis protocol was initiated with blood cultures obtained and empiric cefepime and vancomycin initiated and 30 cc+/kg IV fluids ordered. EKG without overt acute ischemia. CXR negative for acute cardiopulmonary process per my personal preliminary review/interpretation. WBC 1.2K with neutropenia of 0.03. H/H 9.9/27.8 decreased from prior and platelets 40K decreased from prior consistent with pancytopenia. Chemistry without metabolic acidosis. Lactic acid 0.8, within normal limits. Magnesium 1.5 with repletion provided. Electrolytes unremarkable otherwise. LFTs unremarkable. High-sensitivity troponin 7.9, within normal limits. Procalcitonin is not elevated. hCG negative. UA with 2+ bacteria but with epithelial cells present and no nitrites. Respiratory BioFire was negative. Patient agrees with plan for admission for further management. Case was discussed with Digna Lamb PAC, with Digna Velazquez hospitalist who will evaluate the patient for admission. Triage Nursing notes reviewed and agree them. Prior/external medical records reviewed Vital Signs: reviewed Differential diagnosis: Sepsis, UTI, pneumonia, metabolic, electrolyte abnormalities, cardiac sources, intracerebral event, toxicologic, neurologic, as well as other pathologies. ER treatment provided: See below. Diagnostics interpreted by me: ECG: Sinus tachycardia, 117 bpm, no ectopy, nonspecific ST abnormality, no overt ST elevation depression, QTc 474, QRS 84. Cardiac Monitoring: An order for continuous cardiac monitoring was placed and demonstrated Sinus tachycardia, 117 bpm, no ectopy. Laboratory studies: See below Imaging studies: See below Consultation(s): Digna Lamb PAC, with [facility] Borjas[facility]. HPI: The patient is a pleasant 29-year-old woman with a past medical history of triple negative breast cancer who presents to the emergency department via walk- in referred by the cancer center for fever and hypotension in the setting of the patient feeling unwell for the past several days. Patient has any cough or congestion, chest pain or shortness of breath. She reports feeling dizzy and weak with intermittent nausea. She denies any vomiting or diarrhea. She denies any urinary symptoms. Patient is receiving chemotherapy with her last treatment last week. ROS: See above HPI for pertinent positives & negatives. A total of 10 systems reviewed and were otherwise negative. VITALS:See Below PHYSICAL EXAMINATION: GENERAL: Awake, alert, ill-appearing, in no distress HENT: Normocephalic, atraumatic. Oropharynx with dry mucous membranes and otherwise unremarkable. EYES: Normal conjunctiva. Sclera non-icteric. NECK: Supple. No nuchal rigidity. FROM. No JVD. RESPIRATORY: Clear to auscultation. CARDIAC: Tachycardic rate, normal rhythm. Extremities warm and well perfused. Pulses equal. ABDOMEN: Soft, non-distended. No tenderness to palpation. No rebound or guarding. No masses. MUSCULOSKELETAL: Chest examination reveals no tenderness. Right upper chest wall port site clean dry and intact. The back is symmetrical on inspection without obvious abnormality. There is no CVA tenderness to palpation. No joint edema. LOWER EXTREMITIES: Calves are equal size bilaterally and non-tender. No edema. No discoloration. NEURO: Normal sensorium. No sensory or motor deficits noted. SKIN: No rash or jaundice noted. ED COURSE: Critical Care: I have personally spent greater than 35 minutes of critical care time in the direct management of this patient. This includes bedside care, interpretation of diagnostic studies, and testing, discussion with consultants, patient, and family members, and other required patient management activities. This 35 minutes is in excess of all separately billable procedures. Julián Ma MD Past Med/Surg History Problem List (Updated 09/06/24 @ 13:45 by Julián Ma MD) Hypomagnesemia (Acute) Immunosuppressed due to chemotherapy (Acute) Triple negative breast cancer (Acute) Febrile neutropenia (Acute) Cholelithiasis Anemia, No significant past medical history Medical History Bradycardia normally runs in 50's History of COVID-19 (2019) no hosp; resolved Hx gestational diabetes History of anemia Mother currently breast-feeding Surgical History [place] teeth removed Family History Other No family history of adverse response to anesthesia Social History Smoking Status: Never smoker Second Hand Exposure: No; Do You Dip or Chew Tobacco: No; Hx Alcohol Use: No Hx Substance Use: No Preferred Language: Martiniquais Communication Ability: Effective Ruby [employer] Consultant Required: No Beliefs That Will Affect Care: None marital status: Current Living Situation: Spouse Other Information That Helps Us Care for You: No Feels Safe at Home: Yes Safety Concerns: Feels Safe At This Time Assistive Devices: None Allergies Allergies Allergy/AdvReac Type Severity Reaction Status Date / Time No Known Allergies Allergy Verified 09/05/24 13:34 Home Meds Home Medications Medication Instructions Recorded Confirmed loratadine 10 mg tablet 10 mg PO DAILY PRN Allergy Symptoms 09/05/24 09/05/24 olanzapine 5 mg tablet 5 mg PO BID 09/05/24 09/05/24 ondansetron HCl 8 mg tablet 8 mg PO Q8H PRN Nausea And Vomiting 09/05/24 09/05/24 Results & Data (ED) Vital Signs Vital Signs - 24 hr 09/05/24 09:53 09/05/24 09:57 09/05/24 10:27 Temperature 39.5 C H Temperature Source Oral Pulse Rate 128 H Pulse Rate from SpO2 Sensor Pulse Rhythm Regular Pulse Strength Normal Respiratory Rate 24 Respiratory Effort / Characteristics Non-Labored Spontaneous Respiratory Depth Normal Respiratory Pattern Regular Blood Pressure 84/66 L 97/65 L Blood Pressure Mean 72 81 Blood Pressure Position Sitting Pulse Oximetry 98 Oxygen Delivery Method Room Air Room Air Sepsis Recent Fever Within 48 Hours Yes Sepsis New/Unexplained Change in Mental Status No Sepsis Action Taken by Nursing No Action Required 09/05/24 10:27 09/05/24 10:27 09/05/24 10:27 Temperature Temperature Source Pulse Rate Pulse Rate from SpO2 Sensor Pulse Rhythm Pulse Strength Respiratory Rate Respiratory Effort / Characteristics Respiratory Depth Respiratory Pattern Blood Pressure 97/65 L 97/65 L 97/65 L Blood Pressure Mean 81 81 81 Blood Pressure Position Pulse Oximetry Oxygen Delivery Method Sepsis Recent Fever Within 48 Hours Sepsis New/Unexplained Change in Mental Status Sepsis Action Taken by Nursing 09/05/24 10:27 09/05/24 10:27 09/05/24 10:27 Temperature Temperature Source Pulse Rate Pulse Rate from SpO2 Sensor Pulse Rhythm Pulse Strength Respiratory Rate Respiratory Effort / Characteristics Respiratory Depth Respiratory Pattern Blood Pressure 97/65 L 97/65 L 97/65 L Blood Pressure Mean 81 81 81 Blood Pressure Position Pulse Oximetry Oxygen Delivery Method Sepsis Recent Fever Within 48 Hours Sepsis New/Unexplained Change in Mental Status Sepsis Action Taken by Nursing 09/05/24 10:27 09/05/24 10:27 09/05/24 10:27 Temperature Temperature Source Pulse Rate Pulse Rate from SpO2 Sensor Pulse Rhythm Pulse Strength Respiratory Rate Respiratory Effort / Characteristics Respiratory Depth Respiratory Pattern Blood Pressure 97/65 L 97/65 L 97/65 L Blood Pressure Mean 81 81 81 Blood Pressure Position Pulse Oximetry Oxygen Delivery Method Sepsis Recent Fever Within 48 Hours Sepsis New/Unexplained Change in Mental Status Sepsis Action Taken by Nursing 09/05/24 10:27 09/05/24 10:27 09/05/24 10:27 Temperature Temperature Source Pulse Rate Pulse Rate from SpO2 Sensor Pulse Rhythm Pulse Strength Respiratory Rate Respiratory Effort / Characteristics Respiratory Depth Respiratory Pattern Blood Pressure 97/65 L 97/65 L 97/65 L Blood Pressure Mean 81 81 81 Blood Pressure Position Pulse Oximetry Oxygen Delivery Method Sepsis Recent Fever Within 48 Hours Sepsis New/Unexplained Change in Mental Status Sepsis Action Taken by Nursing 09/05/24 10:27 09/05/24 10:27 09/05/24 10:27 Temperature Temperature Source Pulse Rate Pulse Rate from SpO2 Sensor Pulse Rhythm Pulse Strength Respiratory Rate Respiratory Effort / Characteristics Respiratory Depth Respiratory Pattern Blood Pressure 97/65 L 97/65 L 97/65 L Blood Pressure Mean 81 81 81 Blood Pressure Position Pulse Oximetry Oxygen Delivery Method Sepsis Recent Fever Within 48 Hours Sepsis New/Unexplained Change in Mental Status Sepsis Action Taken by Nursing 09/05/24 10:27 09/05/24 10:27 09/05/24 10:27 Temperature Temperature Source Pulse Rate Pulse Rate from SpO2 Sensor Pulse Rhythm Pulse Strength Respiratory Rate Respiratory Effort / Characteristics Respiratory Depth Respiratory Pattern Blood Pressure 97/65 L 97/65 L 97/65 L Blood Pressure Mean 81 81 81 Blood Pressure Position Pulse Oximetry Oxygen Delivery Method Sepsis Recent Fever Within 48 Hours Sepsis New/Unexplained Change in Mental Status Sepsis Action Taken by Nursing 09/05/24 10:42 09/05/24 11:00 09/05/24 11:33 Temperature Temperature Source Pulse Rate 117 H 123 H 111 H Pulse Rate from SpO2 Sensor 117 H 114 H 111 H Pulse Rhythm Pulse Strength Respiratory Rate 24 18 23 Respiratory Effort / Characteristics Respiratory Depth Respiratory Pattern Blood Pressure Blood Pressure Mean Blood Pressure Position Pulse Oximetry 98 95 98 Oxygen Delivery Method Sepsis Recent Fever Within 48 Hours Sepsis New/Unexplained Change in Mental Status Sepsis Action Taken by Nursing 09/05/24 11:45 09/05/24 11:51 09/05/24 11:51 Temperature Temperature Source Pulse Rate 112 H Pulse Rate from SpO2 Sensor 112 H Pulse Rhythm Pulse Strength Respiratory Rate 23 Respiratory Effort / Characteristics Respiratory Depth Respiratory Pattern Blood Pressure 89/54 L 89/54 L Blood Pressure Mean 77 77 Blood Pressure Position Pulse Oximetry 99 Oxygen Delivery Method Sepsis Recent Fever Within 48 Hours Sepsis New/Unexplained Change in Mental Status Sepsis Action Taken by Nursing 09/05/24 11:59 09/05/24 12:00 09/05/24 12:00 Temperature Temperature Source Pulse Rate 115 H Pulse Rate from SpO2 Sensor Pulse Rhythm Pulse Strength Respiratory Rate Respiratory Effort / Characteristics Respiratory Depth Respiratory Pattern Blood Pressure Blood Pressure Mean 104 104 Blood Pressure Position Pulse Oximetry Oxygen Delivery Method Sepsis Recent Fever Within 48 Hours Sepsis New/Unexplained Change in Mental Status Sepsis Action Taken by Nursing 09/05/24 12:00 09/05/24 12:09 09/05/24 12:10 Temperature Temperature Source Pulse Rate 116 H Pulse Rate from SpO2 Sensor Pulse Rhythm Pulse Strength Respiratory Rate 20 Respiratory Effort / Characteristics Respiratory Depth Respiratory Pattern Blood Pressure 83/55 L Blood Pressure Mean 104 60 Blood Pressure Position Pulse Oximetry Oxygen Delivery Method Sepsis Recent Fever Within 48 Hours Sepsis New/Unexplained Change in Mental Status Sepsis Action Taken by Nursing 09/05/24 12:12 09/05/24 12:18 09/05/24 12:36 Temperature Temperature Source Pulse Rate 111 H 107 H 103 H Pulse Rate from SpO2 Sensor Pulse Rhythm Pulse Strength Respiratory Rate 25 H 18 21 Respiratory Effort / Characteristics Respiratory Depth Respiratory Pattern Blood Pressure 91/57 L 88/59 L 88/59 L Blood Pressure Mean 68 68 68 Blood Pressure Position Pulse Oximetry Oxygen Delivery Method Sepsis Recent Fever Within 48 Hours Sepsis New/Unexplained Change in Mental Status Sepsis Action Taken by Nursing Laboratory Data Attestation: I reviewed the patient's lab results. 09/06/24 07:27 09/06/24 07:27 Lab Results 09/05/24 09/05/24 Range/Units 10:55 12:22 WBC 1.29 L (4.8-10.8) K/ul RBC 2.99 L (4.20-5.40) M/uL Hgb 9.9 L (12.0-16.0) g/dl Hct 27.8 L (37.0-47.0) % MCV 93.0 (80.0-100.0) fL MCH 33.1 (25.0-34.0) pg MCHC 35.6 (32.0-36.0) g/dL RDW Std Deviation 35.8 L (36.4-46.3) fL RDW Coeff of Karey 10.6 L (11.5-14.5) % Plt Count 40 L (130-400) K/uL MPV 10.6 (9.4-12.4) fL Immature Gran % (Auto) 0.0 % Neut % (Auto) 2.3 % Lymph % (Auto) 87.6 % [place] % (Auto) 7.8 % Eos % (Auto) 2.3 % Baso % (Auto) 0.0 % Neut # (Auto) 0.03 L* (1.40-6.50) K/uL Lymph # (Auto) 1.13 L (1.20-3.40) K/uL [place] # (Auto) 0.10 L (0.11-0.59) K/uL Eos # (Auto) 0.03 (0.00-0.50) K/uL Baso # (Auto) 0.00 (0.00-0.20) K/uL Immature Gran # (Auto) 0.00 L (0.01-0.20) K/uL PT 11.7 (9.0-12.0) Seconds INR 1.1 (0.9-1.1) VBG pH 7.45 H (7.36-7.41) VBG pCO2 23 L (38-50) mmHg VBG pO2 50 mmHg VBG HCO3 16 mmol/L VBG O2 Saturation 83.6 % VBG Base Excess -6.0 mEq/L Sodium 130 L (136-145) mmol/L Potassium 3.6 (3.5-5.1) mmol/L Chloride 102 (98-107) mmol/L Carbon Dioxide 23 (21-32) mmol/L Anion Gap 5 (3-11) BUN 11 (6-23) mg/dl Creatinine 0.82 (0.6-1.2) mg/dl Est Cr Clr Drug Dosing 119.5 ml/min eGFR 98.62 BUN/Creatinine Ratio 13.4 (10-20) Glucose 93 (70-99(Fasting)) mg/dl Lactate 0.8 (0.4-2.0) mmol/L Calcium 8.8 (8.6-10.3) mg/dl Magnesium 1.5 L (1.7-2.4) mg/dl Total Bilirubin 0.8 (0.2-1.0) mg/dl Direct Bilirubin 0.1 (0-0.2) mg/dl AST 13 (13-39) U/L ALT 12 (7-52) U/L Alkaline Phosphatase 56 (34-104) U/L Troponin I High Sens 7.9 (0-14) pg/ml Total Protein 6.4 (6.0-8.3) gm/dl Albumin 4.0 (3.4-5.0) gm/dl Procalcitonin 0.11 (0-0.5) ng/ml HCG, Qual Negative (Negative) Urine Color Yellow Urine Appearance Clear (Clear) Urine pH 5.0 (4.5-7.5) Ur Specific [place] 1.026 (1.000-1.030) Urine Protein Negative (Negative) Urine Glucose (UA) Negative (Negative) Urine Ketones 1+ H (Negative) Urine Blood Negative (Negative) Urine Nitrite Negative (Negative) Urine Bilirubin Negative (Negative) Urine Urobilinogen Negative (Negative) Ur Leukocyte Esterase Trace H (Negative) Urine WBC (Auto) 0-5 (0-5) /hpf Urine RBC (Auto) 0-2 (0-2) /hpf U Hyaline Cast (Auto) 0-2 (0-2) /lpf U Epithel Cells (Auto) 11-20 H (0-2) /hpf Urine Bacteria (Auto) 2+ H (None Seen) Adenovirus (PCR) Not Detected (NotDetected) B. pertussis DNA (PCR) Not Detected (NotDetected) B.parapertussis DNA PCR Not Detected (NotDetected) C. pneumoniae DNA (PCR) Not Detected (NotDetected) Coronavirus OC43 (PCR) Not Detected (NotDetected) Coronavirus HKU1 (PCR) Not Detected (NotDetected) Coronavirus 229E (PCR) Not Detected (NotDetected) SARS-CoV-2 (PCR) Not Detected (NotDetected) Coronavirus NL63 (PCR) Not Detected (NotDetected) Human Metapneumovir PCR Not Detected (NotDetected) Influenza Type A (PCR) Not Detected (NotDetected) Influenza Type B (PCR) Not Detected (NotDetected) M. pneumoniae (PCR) Not Detected (NotDetected) Parainfluenza 1 (PCR) Not Detected (NotDetected) Parainfluenza 2 (PCR) Not Detected (NotDetected) Parainfluenza 3 (PCR) Not Detected (NotDetected) Parainfluenza 4 (PCR) Not Detected (NotDetected) RSV (PCR) Not Detected (NotDetected) Entero/Rhino (PCR) Not Detected (NotDetected) Administered Medications Acetaminophen (Acetaminophen 325 Mg Tab) 650 mg PO Q4H PRN PRN Reason: Fever or headache Stop: 10/05/24 15:28 Last Admin: 09/06/24 11:40 Dose: 650 mg Documented By: Admin: 09/05/24 16:38 Dose: 650 mg Documented By: FJKuldeep Sodium Chloride (Nss) 1,000 mls @ 125 mls/hr IV .Q8H ADEOLA Stop: 09/06/24 13:59 Last Admin: 09/06/24 05:34 Dose: 125 mls/hr Documented By: Infusion: 09/06/24 05:33 Dose: Infused Documented By: Admin: 09/05/24 21:33 Dose: 125 mls/hr Documented By: Infusion: 09/05/24 21:33 Dose: Infused Documented By: Admin: 09/05/24 15:48 Dose: 125 mls/hr Documented By: ARVIN Cefepime HCl (Maxipime 2000mg) 2,000 mg in 20 mls @ 5 mls/min IV Q8H ADEOLA; Protocol Stop: 09/16/24 09:29 Last Admin: 09/06/24 10:07 Dose: 5 mls/min Documented By: ARVIN Vancomycin HCl 1,250 mg/ (Sodium Chloride) 275 mls @ 200 mls/hr IV Q8H ADEOLA Stop: 09/08/24 09:59 Last Infusion: 09/06/24 11:53 Dose: Infused Documented By: Admin: 09/06/24 10:07 Dose: 200 mls/hr Documented By: ARVIN Olanzapine (Olanzapine 5 Mg Tablet) 5 mg PO BID ADEOLA Stop: 10/05/24 20:59 Last Admin: 09/06/24 09:33 Dose: Not Given Documented By: Admin: 09/05/24 21:28 Dose: 5 mg Documented By: IGLESIA Ondansetron HCl (Ondansetron Inj 2 Mg/Ml 2 Ml Vial) 4 mg IV Q4H PRN PRN Reason: Nausea And Vomiting Stop: 10/05/24 15:28 Last Admin: 09/05/24 16:38 Dose: 4 mg Documented By: SAMMY Ondansetron HCl (Ondansetron 8mg Od Tab) 8 mg PO Q8H PRN PRN Reason: Nausea And Vomiting Stop: 10/05/24 15:30 Last Admin: 09/06/24 09:34 Dose: 8 mg Documented By: ARVIN Discontinued Medications Sodium Chloride (Nss) 1,000 mls @ 999 mls/hr IV .Q1H1M ADEOLA Stop: 09/05/24 12:15 Last Infusion: 09/05/24 15:56 Dose: Infused Documented By: Admin: 09/05/24 11:16 Dose: 999 mls/hr Documented By: Infusion: 09/05/24 11:16 Dose: Infused Documented By: Admin: 09/05/24 11:07 Dose: 999 mls/hr Documented By: KATHERINE Acetaminophen (Ofirmev) 1,000 mg in 100 mls @ 400 mls/hr IV NOW STA Stop: 09/05/24 10:21 Last Infusion: 09/05/24 11:22 Dose: Infused Documented By: Admin: 09/05/24 11:07 Dose: 400 mls/hr Documented By: KATHERINE Cefepime HCl (Maxipime 2000mg) 2,000 mg in 20 mls @ 5 mls/min IV NOW STA; Protocol Stop: 09/05/24 10:10 Last Admin: 09/05/24 11:07 Dose: 5 mls/min Documented By: KATEHRINE Magnesium Sulfate/Dextrose (Magnesium Sulfate / D5w) 1 gm in 100 mls @ 100 mls/hr IV NOW STA Stop: 09/05/24 13:17 Last Infusion: 09/05/24 13:57 Dose: Infused Documented By: Admin: 09/05/24 12:57 Dose: 100 mls/hr Documented By: KATHERINE Vancomycin HCl 2,250 mg/ (Sodium Chloride) 545 mls @ 200 mls/hr IV NOW ONE Stop: 09/05/24 15:13 Last Infusion: 09/05/24 17:33 Dose: Infused Documented By: Admin: 09/05/24 14:37 Dose: 200 mls/hr Documented By: KATHERINE Sodium Chloride (Nss) 1,000 mls @ 999 mls/hr IV .Q1H1M ONE Stop: 09/05/24 13:30 Last Infusion: 09/05/24 15:55 Dose: Infused Documented By: Admin: 09/05/24 12:57 Dose: 999 mls/hr Documented By: KATHERINE Vancomycin HCl 1,500 mg/ (Sodium Chloride) 530 mls @ 200 mls/hr IV Q12H ADEOLA Stop: 09/08/24 00:00 Last Infusion: 09/06/24 02:32 Dose: Infused Documented By: Admin: 09/05/24 23:53 Dose: 200 mls/hr Documented By: IGLESIA Hydrocortisone Sodium (Succinate 100 mg/ Syringe) 2 mls @ 4 mls/min IV NOW STA Stop: 09/06/24 11:00 Last Admin: 09/06/24 11:40 Dose: 4 mls/min Documented By: [facility] Imaging Data Radiologist's Impression: Chest X-Ray 09/05/24 10:08 XR chest 1V portable CLINICAL HISTORY: Sepsis COMPARISON STUDY: None FINDINGS: Right chest port tip is at the cavoatrial junction. Heart size and pulmonary vasculature are normal. No effusion, consolidation, or pneumothorax. IMPRESSION: No acute findings. ACT 112: Negative or not required by law. Electronically signed by: Shayan Gomez M.D. 09/05/2024 10:21 AM Discharge Plan Visit Data Chief Complaint: Fever Stated Complaint: FEVER, CHEMO RELATED/CANCER PATIENT ED Provider: Julián Ma Discharge Problem: Febrile neutropenia, Immunosuppressed due to chemotherapy, Triple negative breast cancer, Hypomagnesemia Patient Disposition: Admitted As Inpatient Discharge Instructions Interventions: ED Discharge Assessment Last Done: 09/05/24 16:07
[2024-09-05] MEDS: ACETAMINOPHEN 1,000 MG/100 ML VIAL IV STA (11:07)
[2024-09-05] MEDS: SODIUM CHLORIDE 0.9% 1,000 ML IV SCH ×2 (11:07→15:48)
[2024-09-05] MEDS: CEFEPIME 2000MG 2,000 MG/20 ML SYR IV STA (11:07)
[2024-09-05 11:14] LABS: HCO3 VBG 16 mmol/L; Oxygen Saturation VBG 83.6 %; PCO2 VBG 23 mmHg (38-50); PO2 VBG 50 mmHg; pH VBG 7.45 (7.36-7.41)
[2024-09-05 11:30] LABS: Hematocrit (blood only) 27.8 % (37.0-47.0); Hemoglobin 9.9 g/dl (12.0-16.0); Mean Corpuscular Hemoglobin 33.1 pg (25.0-34.0); Mean Corpuscular Hgb Conc 35.6 g/dL (32.0-36.0); Mean Platelet Volume 10.6 fL (9.4-12.4); Platelet Count 40 K/uL (130-400); RDW Coefficient of Variation 10.6 % (11.5-14.5); RDW Standard Deviation 35.8 fL (36.4-46.3); Red Blood Count 2.99 M/uL (4.20-5.40); White Blood Count 1.29 K/ul (4.8-10.8)
[2024-09-05 11:47] LABS: Pregnancy Test, Serum Negative (Negative)
[2024-09-05 11:49] LABS: BUN Creatinine Ratio 13.4 (10-20); Bilirubin Direct 0.1 mg/dl (0-0.2); Bilirubin,Total 0.8 mg/dl (0.2-1.0); Calcium 8.8 mg/dl (8.6-10.3); Creatinine Clr Calc Pharmacy 119.5 ml/min; Magnesium 1.5 mg/dl (1.7-2.4); Potassium 3.6 mmol/L (3.5-5.1); Total Protein 6.4 gm/dl (6.0-8.3)
[2024-09-05 11:54] LABS: Troponin I High Sensitivity 7.9 pg/ml (0-14)
[2024-09-05 11:57] LABS: Eosinophils # (auto) 0.03 K/uL (0.00-0.50); Eosinophils % (auto) 2.3 %; Lymphocytes # (auto) 1.13 K/uL (1.20-3.40); Lymphocytes % (auto) 87.6 %; Monocytes % (auto) 7.8 %; Neutrophils # (auto) 0.03 K/uL (1.40-6.50); Neutrophils % (auto) 2.3 %
[2024-09-05 11:58] LABS: INR 1.1 (0.9-1.1); Prothrombin Time 11.7 Seconds (9.0-12.0)
[2024-09-05 12:15] LABS: Adenovirus PCR Not Detected (NotDetected); Bordetella parapertussis PCR Not Detected (NotDetected); Bordetella pertussis PCR Not Detected (NotDetected); Chlamydia pneumoniae PCR Not Detected (NotDetected); Coronavirus 229E PCR Not Detected (NotDetected); Coronavirus CoV-2 (COVID19)PCR Not Detected (NotDetected); Coronavirus HKU1 PCR Not Detected (NotDetected); Coronavirus NL63 PCR Not Detected (NotDetected); Coronavirus OC43PCR Not Detected (NotDetected); Human Metapneumovirus PCR Not Detected (NotDetected); Influenza A PCR Not Detected (NotDetected); Influenza B PCR Not Detected (NotDetected); Mycoplasma pneumoniae PCR Not Detected (NotDetected); Parainfluenza Virus 1 PCR Not Detected (NotDetected); Parainfluenza Virus 2 PCR Not Detected (NotDetected); Parainfluenza Virus 3 PCR Not Detected (NotDetected); Parainfluenza Virus 4 PCR Not Detected (NotDetected); Respiratory Syncytial VirusPCR Not Detected (NotDetected); Rhinovirus/Enterovirus PCR Not Detected (NotDetected)
[2024-09-05] MEDS ORDERED: VANCOMYCIN CONSULT ACTIVE PRN (12:30)
--- NOTE | 2024-09-05 12:35 | History & Physical Report ---
Date of Service September 05, 2024 Assessment & Plan (1) Febrile neutropenia: (2) Triple negative breast cancer: (3) Immunosuppressed due to chemotherapy: Plan: - Admit to med [facility] [place] [facility], neutropenic precautions, discussed with the additional 8 family members at bedside at length. - Currently follows with [facility] onc[facility] as outpatient - T2 primary tumor, no axillary lymph node involvement on PET-CT, negative for distant metastatic disease - Neoadjuvant chemotherapy with Keynote 522 protocol. Currently completed phase 1 of the treatment, (Paclitaxel, carboplatin, Keytruda). - Current Regimen: Actively on Phase 2, Keytruda, Adriamycin, cyclophosphamide, started C1 day 8 on 08/14. Last round was on 08/28/24 and had pegfilgrastim dosed on 08/29. - she is at high-risk for febrile neutropenia - Will consult oncology here for recommendations on starting pegfilgrastim here x several doses due to ANC of 30 upon presentation - BCx x 2, obtain BC from left chest wall port as well- follow - Cont cefepime and Vanc IV for empiric coverage at this time - biofire RVP is negative - She is on Lupron monthly per oncology DVT ppx: teds, scds Lines: PIV x 1, Mediport x 1 FEN/GI: Regular diet, neutropenic precautions, no fresh fruit or vegetable unless able to be peeled CODE: Full code Dispo: From home, likely to remain in the hospital x 1-2 days I spent a total of 77 minutes with greater than 50% of that time face to face with the patient, personally reviewing all current laboratories, imaging studies, past medication reconciliation, outpatient chart review, and discussion with specialists to collaborate care for the patient excluding time spent in the performance of separately billed services or time spent by another provider/QHP. Please see attending documentation for corrections and/or additions. History of Present Illness Chief Complaint: Fever Primary Care Provider: NO PCP This is a 29 yo F with PMHx of Left triple negative breast cancer, diagnosed Mar 2024, follows with Dr. Kanu Maravilla, currently receiving neoadjuvant chemotherapy and is on phase 2 which includes Keytruda 200 mg every 3 weeks x 4, Adriamycin every 3 weeks x 4, cyclophosphamide every 3 weeks x 4. She had cycle 1 day 8 on 08/14. Presented to the cancer center this morning however was found to be febrile with a Tmax of 39.3, BP 86/40. Here she is found to have WBC of 1.29, neutrophils 0, lymphs 1.13, ANC is 30, she was referred to the hospitalist team for admission for febrile neutropenia. Blood cultures have been obtained peripherally and through port in the left chest wall. She was started on cefepime and IV vancomycin. Currently has had 1 L normal saline so far, additional 1 L is ordered for hypotension. Magnesium 1.5 being replaced. BioFire respiratory viral panel is negative. Pt last round of chemotherapy was on 08/28 and had dose of pegfilgrastim on 08/29( this was the first time she required neupogen) Pt reports having chills and sweats last evening and reports being found to have fever this morning at the clinic. She admits to have a soft bowel movement this morning. Denies any abdominal complaints. Eating ok but reports the taste of food is not right. She does better with fluids. Multipls family members including , brother, sister, brother in law, mother in law and mother are all present at bedside. Education was provided for mask wearing, hand washing, and recommendations for NO hugging, kissing, other forms of physical contact with neutropenia at this time, and masks provided at bedside. Allergies Allergy/AdvReac Type Severity Reaction Status Date / Time No Known Allergies Allergy Verified 09/05/24 13:34 Home Medications Medication Instructions Recorded Confirmed Type loratadine 10 mg tablet 10 mg PO DAILY PRN Allergy Symptoms 09/05/24 09/05/24 History olanzapine 5 mg tablet 5 mg PO BID 09/05/24 09/05/24 History ondansetron HCl 8 mg tablet 8 mg PO Q8H PRN Nausea And Vomiting 09/05/24 09/05/24 History Past Med/Surg History Problem List (Updated 09/05/24 @ 12:37 by Jeanie Mckay PA-C) Immunosuppressed due to chemotherapy Triple negative breast cancer Febrile neutropenia Cholelithiasis Anemia, No significant past medical history Medical History (Updated 09/05/24 @ 12:37 by Jeanie Mckay PA-C) Bradycardia normally runs in 50's History of COVID-19 (2019) no hosp; resolved Hx gestational diabetes History of anemia Mother currently breast-feeding Surgical History [place] teeth removed Family History Other No family history of adverse response to anesthesia Social History Smoking Status: Never smoker Second Hand Exposure: No; Do You Dip or Chew Tobacco: No; Hx Alcohol Use: No Hx Substance Use: No Preferred Language: Swedish Communication Ability: Effective 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 Beliefs That Will Affect Care: None marital status: Current Living Situation: Spouse Feels Safe at Home: Yes Assistive Devices: Contacts Review of Systems Review of Systems: Constitutional: + Fevers, sweats and chills, + shakes Eyes: No diplopia, no worsening or blurred vision ENT: normal hearing, no trouble swallowing Respiratory: No cough, sputum, dyspnea at rest or on exertion Cardiovascular: No chest pain, tightness or palpitations Abdomen: No pain, nausea, vomiting, diarrhea or constipation Musculoskeletal: No joint pain, calf pain, swelling Neurologic: No weakness, numbness/tingling, or balance problems Psychiatric: No anxiety or depression Skin: No rash or itch Physical Exam Physical Exam: General: awake, alert, white female, pallor, alopecia Head: Normocephalic, atraumatic ENT: PERRL, EOMI, no pharyngeal exudate, mucous membranes moist Chest: Right Mediport, clear to auscultation, on room air, no adventitious breath sounds Cardiac: Sinus tachycardia, no murmur, no JVD, normal peripheral pulses, good capillary refill Abdominal: NABS x 4 quadrants, soft, nondistended, nontender to palpation, no rebound or guarding Extremities: Normal inspection, no peripheral edema or erythema, calfs nontender to palpation Psych: Normal mood and affect Neuro: AAO x 3, strength intact bilaterally and rated 5/5, no motor deficits, speech is clear, no peripheral sensory deficits Results & Data Results & Data Vital Signs (Past 12 Hours) Vital Signs Temp Pulse Resp BP Pulse Ox O2 Del Method 09/05/24 12:10 83/55 L 09/05/24 12:09 116 H 20 09/05/24 11:59 115 H 09/05/24 11:51 89/54 L 09/05/24 11:51 89/54 L 09/05/24 11:45 112 H 23 99 09/05/24 11:33 111 H 23 98 09/05/24 11:00 123 H 18 95 09/05/24 10:42 117 H 24 98 09/05/24 10:27 97/65 L 09/05/24 10:27 97/65 L 09/05/24 10:27 97/65 L 09/05/24 10:27 97/65 L 09/05/24 10:27 97/65 L 09/05/24 10:27 97/65 L 09/05/24 10:27 97/65 L 09/05/24 10:27 97/65 L 09/05/24 10:27 97/65 L 09/05/24 10:27 97/65 L 09/05/24 10:27 97/65 L 09/05/24 10:27 97/65 L 09/05/24 10:27 97/65 L 09/05/24 10:27 97/65 L 09/05/24 10:27 97/65 L 09/05/24 10:27 97/65 L 09/05/24 10:27 97/65 L 09/05/24 10:27 97/65 L 09/05/24 10:27 97/65 L 09/05/24 09:57 39.5 C H 128 H 24 84/66 L 98 Room Air 09/05/24 09:53 Room Air Laboratory Results 09/05/24 11:09 Aerobic Blood Culture - Pending Blood Anaerobic Blood Culture - Pending 09/05/24 10:55 Aerobic Blood Culture - Pending Blood Anaerobic Blood Culture - Pending 09/05/24 10:55 WBC 1.29 L RBC 2.99 L Hgb 9.9 L Hct 27.8 L MCV 93.0 MCH 33.1 MCHC 35.6 RDW Std Deviation 35.8 L RDW Coeff of Karey 10.6 L Plt Count 40 L MPV 10.6 Immature Gran % (Auto) 0.0 Neut % (Auto) 2.3 Lymph % (Auto) 87.6 Adams % (Auto) 7.8 Eos % (Auto) 2.3 Baso % (Auto) 0.0 Neut # (Auto) 0.03 L* Lymph # (Auto) 1.13 L Adams # (Auto) 0.10 L Eos # (Auto) 0.03 Baso # (Auto) 0.00 Immature Gran # (Auto) 0.00 L PT 11.7 INR 1.1 VBG pH 7.45 H VBG pCO2 23 L VBG pO2 50 VBG HCO3 16 VBG O2 Saturation 83.6 VBG Base Excess -6.0 Sodium 130 L Potassium 3.6 Chloride 102 Carbon Dioxide 23 Anion Gap 5 BUN 11 Creatinine 0.82 Est Cr Clr Drug Dosing 119.5 eGFR 98.62 BUN/Creatinine Ratio 13.4 Glucose 93 Lactate 0.8 Calcium 8.8 Magnesium 1.5 L Total Bilirubin 0.8 Direct Bilirubin 0.1 AST 13 ALT 12 Alkaline Phosphatase 56 Troponin I High Sens 7.9 Total Protein 6.4 Albumin 4.0 HCG, Qual Negative Adenovirus (PCR) Not Detected B. pertussis DNA (PCR) Not Detected B.parapertussis DNA PCR Not Detected C. pneumoniae DNA (PCR) Not Detected Coronavirus OC43 (PCR) Not Detected Coronavirus HKU1 (PCR) Not Detected Coronavirus 229E (PCR) Not Detected SARS-CoV-2 (PCR) Not Detected Coronavirus NL63 (PCR) Not Detected Human Metapneumovir PCR Not Detected Influenza Type A (PCR) Not Detected Influenza Type B (PCR) Not Detected M. pneumoniae (PCR) Not Detected Parainfluenza 1 (PCR) Not Detected Parainfluenza 2 (PCR) Not Detected Parainfluenza 3 (PCR) Not Detected Parainfluenza 4 (PCR) Not Detected RSV (PCR) Not Detected Entero/Rhino (PCR) Not Detected Diagnostic Findings Chest X-Ray 09/05/24 10:08 XR chest 1V portable CLINICAL HISTORY: Sepsis COMPARISON STUDY: None FINDINGS: Right chest port tip is at the cavoatrial junction. Heart size and pulmonary vasculature are normal. No effusion, consolidation, or pneumothorax. IMPRESSION: No acute findings. ACT 112: Negative or not required by law. Electronically signed by: Shayan Gomez M.D. 09/05/2024 10:21 AM Code Status & VTE Plan Code Status Full code Supervising Physician Co-Signing Physician Notes I have seen and discussed the case with the collaborating advanced practitioner. I agree with the above H&P. I have reviewed and confirmed the patients medical history, the findings on physical examination, and the patients diagnosis and treatment plan with Santiago LOPES and agree with the information documented. In short, Ms. Gutierrez is a 29 yo woman with triple negative breast cancer on active chemotherapy admitted fro febrile neutropenia. She reports feeling poorly with nausea and vomiting after her treatments. She was sent in today with fevers, tmax documented at 39.5. She denies any other symptoms. labs with noted neutropenia, hyponatremia to 130 (likely multifactorial) and hypomagnesemia. Biofire negative. Ua with questionable sampling, given epi cell and 2+ as well as absent symptoms #Febrile Neutropenia #Severe neutropenia #possible sepsis, unclear source #Immunocompromised #Left breast triple negative breast cancer, T2 primary tumor, no axilla lymph node involvement PET-CT scan negative for distant metastatic disease. ANC 30 On phase 2 of chemo: -Keytruda 200 mg every 3 weekly x4 -Adriamycin 60 mg/m every 3 weekly x4 - cyclophosphamide 600 mg/m every 3 weekly x4. and pilgastrium Continue vanc and cefepime Follow up cultures Heme/Onc for need for Neupogen Trend CBC with diff IVF @125 neutropenic precautions I spent a total of 15 minutes coordinating, documenting, and providing care for this patient excluding time spent in the performance of separately billed services. All of the aforementioned completed outside of collaborating with the assigned advanced practitioner for a full treatment plan. I have reviewed the advanced practitioner's documentation, and I agree with, and take responsibility for the plan of care
[2024-09-05 12:47] LABS: Appearance Urine Clear (Clear); Bacteria Urine Automated 2+ (None Seen); Bilirubin Urine Negative (Negative); Blood Urine Negative (Negative); Cast Urine Automated 0-2 /lpf (0-2); Color Urine Yellow; Glucose Urine UA Negative (Negative); Ketones Urine 1+ (Negative); Leukocyte Esterase Urine Trace (Negative); Nitrite Urine Negative (Negative); Protein Urine Negative (Negative); RBC Urine Automated 0-2 /hpf (0-2); Specific Gravity Urine 1.026 (1.000-1.030); Urobilinogen Urine Negative (Negative); WBC Urine Automated 0-5 /hpf (0-5)
[2024-09-05] MEDS: SODIUM CHLORIDE 0.9% 1,000 ML IV ONE (12:57)
[2024-09-05] MEDS: MAGNESIUM SULFATE / D5W 1 GM/100 ML BAG IV STA (12:57)
--- OUTSIDE RECORDS SUMMARY | 2024-09-05 14:21 | External Medical Summary ---
Author Name Unknown Address Unknown Organization [id number]:[facility] [place] [address] Laboratory Report Ordering Provider Test Date Status JASMINE JANSEN 09/05/2024 09:10:25 Final Observation Date Value Abnormality Reference (Units ) Status Nucleated erythrocytes/100 leukocytes [Ratio] in Blood by Automated count 09/05/2024 09:10:25 Final Variant lymphocytes [Presence] in Blood by Light microscopy 09/05/2024 09:10:25 Present Abnormal None Seen Final Giant platelets [Presence] in Blood by Light microscopy 09/05/2024 09:10:25 Present Abnormal None Seen Final Performing Location [facility] [place] [address]
--- OUTSIDE RECORDS SUMMARY | 2024-09-05 14:21 | External Medical Summary ---
Author Name Unknown Address Unknown Organization [id number]:[facility] [address] [place] [address] Laboratory Report Ordering Provider Test Date Status JASMINE JANSEN 09/04/2024 12:40:13 Final Observation Date Value Abnormality Reference (Units ) Status SYNC LEUKOCYTES IN BLOOD BY AUTOMATED COUNT 09/04/2024 12:40:13 1.61 Below low normal 4.00-10.80 (K/uL) Final Neutrophils/100 leukocytes in Blood by Manual count 09/04/2024 12:40:13 1.0 Below low normal 40.0-75.0 (%) Final Lymphocytes/100 leukocytes in Blood by Manual count 09/04/2024 12:40:13 89.0 Above high normal 18.0-42.0 (%) Final Monocytes/100 leukocytes in Blood by Manual count 09/04/2024 12:40:13 2.0 1.0-11.0 (%) Final Eosinophils/100 leukocytes in Blood by Manual count 09/04/2024 12:40:13 8.0 Above high normal 0.0-6.0 (%) Final Neutrophils [#/volume] in Blood by Manual count 09/04/2024 12:40:13 0.02 Below low normal 1.80-7.70 (K/uL) Final Lymphocytes [#/volume] in Blood by Manual count 09/04/2024 12:40:13 1.43 1.00-4.80 (K/uL) Final Monocytes [#/volume] in Blood by Manual count 09/04/2024 12:40:13 0.03 0.00-1.10 (K/uL) Final Eosinophils [#/volume] in Blood by Manual count 09/04/2024 12:40:13 0.13 0.00-0.70 (K/uL) Final Nucleated erythrocytes/100 leukocytes [Ratio] in Blood by Automated count 09/04/2024 12:40:13 Final Variant lymphocytes [Presence] in Blood by Light microscopy 09/04/2024 12:40:13 Present Abnormal None Seen Final Performing Location [facility] [address] [place] [address]
--- OUTSIDE RECORDS SUMMARY | 2024-09-05 14:21 | External Medical Summary ---
Author Name Unknown Address Unknown Organization [id number][facility] [place] [address] Laboratory Report Ordering Provider Test Date Status JASMINE JANSEN 09/05/2024 09:10:25 Final Observation Date Value Abnormality Reference (Units ) Status SYNC LEUKOCYTES IN BLOOD BY AUTOMATED COUNT 09/05/2024 09:10:25 1.48 Below low normal 4.00-10.80 (K/uL) Final Segs 09/05/2024 09:10:25 0.6 Below low normal 40.0-75.0 (%) Final Lymphs % 09/05/2024 09:10:25 91.2 Above high normal 18.0-42.0 (%) Final Monos 09/05/2024 09:10:25 4.1 1.0-11.0 (%) Final Eosinophils 09/05/2024 09:10:25 3.4 0.0-6.0 (%) Final Basos 09/05/2024 09:10:25 0.7 0.0-2.0 (%) Final Absolute Segs 09/05/2024 09:10:25 0.01 Below low normal 1.80-7.70 (K/uL) Final Lymphs, absolute 09/05/2024 09:10:25 1.35 1.00-4.80 (K/ul) Final Monos, Abs 09/05/2024 09:10:25 0.06 0.00-1.10 (K/uL) Final Eos, Abs 09/05/2024 09:10:25 0.05 0.00-0.70 (K/uL) Final Basos, Abs 09/05/2024 09:10:25 0.01 0.00-0.20 (K/uL) Final Performing Location [facility] [place] [address]
--- OUTSIDE RECORDS SUMMARY | 2024-09-05 14:21 | External Medical Summary | Summary of Care ---
Author Name Unknown Organization [facility] Address [address] [place] [facility] [place] [address] Phone [phone] Care Team Providers Care Title I Director Name Role Phone Malinda Owens AD Primary Care Provider [phone] Encounter Details Date Type Department Care Team (Late st Contact Info) Description 09/04/2024 Orders Only [facility]ology[facility] [address] [facility] [place] [address] Kanu Maravilla MD [address] [place] [address] Malignant neoplasm of upper-outer quadrant of left breast in female, estrogen receptor negative (HCC)*; Dehydration Allergies No known active allergiesdocumented as of this encounter (statuses as of 09/05/2024) Medications 19 29-1 MG Oral Tablet Chewable Take by mouth. Activ e Famotidine 20 MG Oral Tablet (Pepcid)Indication s:Malignant neoplasm of upper-outer quadrant of left breast in female, estrogen receptor negative (HCC),Encounter for antineoplastic chemotherapy,Encou nter for prevention of neutropenia due to chemotherapy Take by mouth 1 Tablet 12 hours prior to paclitaxel infusion. Do not start before May 06, 2024. 12 Tablet 05/06/20 24 Active Additional Information Patient not taking.Reported on 05/02/2024 Prochlorperazine Maleate 10 MG Oral Tablet (Compazine)Indicat ions:Malignant neoplasm of upper-outer quadrant of left breast in female, estrogen receptor negative (HCC),Encounter for antineoplastic chemotherapy,Encou nter for prevention of neutropenia due to chemotherapy Take 1 Tablet by mouth every 6 hours as needed for Nausea. Do not start before May 06, 2024. 30 Tablet 5 05/06/20 24 Active Lidocaine-Prilocai ne 2.5-2.5 % External Cream (Emla)Indications: Malignant neoplasm of upper-outer quadrant of left breast in female, estrogen receptor negative (HCC) APPLY TO SKIN OVER MEDIPORT & COVER 1HR PRIOR TO ACCESSING. 30 g 05/05/20 24 Active Loratadine 10 MG Oral Tablet (Claritin)Indicati ons:Malignant neoplasm of upper-outer quadrant of left breast in female, estrogen receptor negative (HCC) Take 1 tablet by mouth x5 days starting the day before fulphila injection 20 Tablet 05/08/20 24 Active Ondansetron HCl 8 MG Oral Tablet (Zofran)Indication s:Malignant neoplasm of upper-outer quadrant of left breast in female, estrogen receptor negative (HCC) Take 1 Tablet by mouth every 8 hours as needed for Nausea. 30 Tablet 3 06/26/19 25 Active Phenazopyridine HCl 200 MG Oral Tablet (Pyridium)Indicati ons:Dysuria Take 1 Tablet by mouth in the morning and 1 Tablet at noon and 1 Tablet before bedtime. After meals.. 6 Tablet 07/02/19 25 Active Diphenoxylate-Atro pine 2.5-0.025 MG Oral Tablet (Lomotil)Indicatio ns:Chemotherapy induced diarrhea Take 1 Tablet by mouth 4 times a day as needed for Diarrhea. 30 Tablet 07/04/19 25 Active oxyBUTYnin Chloride 5 MG Oral Tablet (Ditropan)Indicati ons:Chemotherapy induced diarrhea,Bladder spasm Take 1 Tablet by mouth in the morning and 1 Tablet at noon and 1 Tablet before bedtime. 30 Tablet 07/07/19 25 Active OLANZapine 5 MG Oral TabletIndications: Malignant neoplasm of upper-outer quadrant of left breast in female, estrogen receptor negative (HCC) Take 1-2 Tablets by mouth at bedtime as needed for Insomnia or Nausea. 60 Tablet 1 09/03/19 25 Active documented as of this encounter (statuses as of 09/05/2024) Active Problems Problem Noted Date Diagnosed Date Dehydration 07/01/2024 Encounter for fertility preservation procedure 1 07/08/2023 Suppression of ovarian secretion 05/08/2024 Encounter for antineoplastic chemotherapy 2023 Encounter for prevention of neutropenia due to c hemotherapy 04/30/2024 Malignant neoplasm of upper- outer quadrant of left breast in female, estrogen receptor negative 04/22/2024 Cancer Staging:Clinical: Unsigned Diet controlled gestational diabetes mellitus (GDM) in third trimester 09/20/2023 Overview (10/31/2023): 09/20/23 Repeated 3hr GTT at 33w d/t [...] complete. Enrolled in Current Health. Plans to moss picker meter from pharmacy today. Instructions provided to report blood sugars each week for MFM review 09/25/23: RPM reviewed; Stable; continue diet controlled 10/03/23: RPM reviewed; Stable 10/09/23: RPM reviewed; Stable overall; continue diet controlled 10/16/23: RPM reviewed; Stable 10/23/23: RPM reviewed; Stable; diet controlled 10/31/23: RPM reviewed; Stable. Continue diet control. Assessment & Plan (10/19/2023 5:36 PM EDT): She presents for follow-up of growth secondary to GDMA1, previously noted LGA, and class I obesity. Blood glucose values have been well-controlled with diet. Today's ultrasound notes the following: The estimated weight is large for gestational age in the 94th percentile. The visualized anatomy is unremarkable in appearance. The DEYSI is normal. Assessment & Plan (09/27/2023 12:45 PM EDT): She presents for an assessment of growth and anatomy secondary to GDMA1, previously noted LGA, and class I obesity. Per review of GROUND CONTROL APPROACH TECHNICIAN documentation of 09/25/23, blood glucose values have [...] weeks to assess growth prior to delivery. Assessment & Plan (09/21/2023 1:47 PM EDT): CONSIDERATIONS: Reviewed etiology and risks associated with [...] Recommend nutrition consult with RDN (Registered Dietitian Shot Coat Tender). Lifestyle changes are also indicated including optimizing [...] affec ting management of mother, antepartum 09/14/2023 Assessment & Plan (10/19/2023 5:34 PM EDT): CONSIDERATIONS: Reviewed that weight greater than 90%ile [...] deficiency anemia 08/21/2023 Antepartum anemia complicating 024 Overview (09/20/2023): Receiving IV iron infusions Anemia Labs Lab [...] 07:56 AM MCV 103.2 08/13/2023 07:56 AM Assessment & Plan (09/21/2023 1:47 PM EDT): CONSIDERATIONS: Severe maternal anemia (hemoglobin levels below [...] and folate levels and referral to a building code administrator. If hemoglobin levels are below 8 g/dl, we recommend Maternal Medicine ultrasound for growth every 4 weeks after 24 weeks. Consider a blood transfusion if hemoglobin levels fall below 6 g/dL. ([employer] Practice Bulletin Number 95, December,). Consider Venofer transfusions if patient labs supportive of iron deficiency anemia with dosing of 300 mg IV weekly x 3 weeks Encounter for supervision of other normal , unspecified trimester 04/03/2023 Class 1 obesity due to exces s calories without serious comorbidity with body mass index (BMI) of 33.0 to 33.9 in adult 04/03/2023 Overview (04/03/2023): Early glucola documented as of this encounter (statuses as of 09/05/2024) Resolved Problems Problem Noted Date Diagnosed Date Resolved Date Abnormal glucose tolerance i n mother complicating 04/19/2023 08/31/2023 Overview (04/19/2023): Failed early glucola. 3hr GTT ordered documented as of this encounter (statuses as of 09/05/2024) Immunizations Name Administration Dates Next Due DTP Vaccine 01/02/1997, 5,1994,05/19 DTaP Dipth/Tet/Acell Pertussis (Infanrix), Peds 01/18/2000,01/02/1997 HEP A - Hepatitis A (Adult > 18 yrs) 08/22/2019 HPV Vaccine, 4-Valent 11/13/2012,03/21/2012 Haemophilius B (HIB), unspecified 1994,,1994 Hepatitis A Vaccine 02/02/2010 Hepatitis A, Ped/Adol., 18 y ear and below, 2-Dose 11/13/2012,02/02/2010 Hepatitis B, 0-19 yrs 02/17/1995,1994,07/1993 IPV - Polio Virus Vaccine (Inact) 01/18/2000 MMR - Measles/Mumps/Rubella Vaccine 01/18/2000,0 07/26/1995 Meningococcal Conjugate Vacc ine (Menactra/Menveo) 02/02/2010 Meningococcal MCV4P Conjugat e Vaccine (Menactra) 11/13/2012 OPV - Polio Virus Vaccine (Oral) 000,01/02/1997,1994,05/19 Seasonal Influenza Vac., MDV , IM, 0.5 mL (Fluzone) 04/08/2012,04/13/2010 Seasonal Influenza Virus Vac cine, Unspecified Formulation 04/08/2012,04/13/2010,04/09/2009 Seasonal Influenza, PF, 6 M & above, IM , (FluLaval or Fluzone) 05/17/2023,08/21/2019 Seasonal Influenza, Trivalen t, (IIV3), PF, (Fluzone) 04/24/2024 TDAP (age 10 and older)(Boostrix) 08/13/2023,11/2019 TDAP, Age 7 and older, IM (Adacel) 09/17/2008 Varicella Vaccine (Chicken Pox) 09/17/2008,11/07 documented [...] the money to buy more. Never true 03/26/20 24 Within the past 12 months, t he food you bought just didn't last and you didn't have money to get more. Never true 03/26/2024 Elizabeth Depression Scale Answer Date Recorded Elizabeth Depression Scale Total 6 12/11/2023 The thought of harming myself has occurred to me . Never 12/11/2023 Childcare Answer Date Recorded Do you feel overwhelmed with taking care of a child, family member or friend? No 03/26/2024 Does your family need help f inding childcare? (Household - for ages 0-17 years) Not on file 03/26/2024 Clothing Answer Date Recorded Have you been unable to get clothing when it was really needed? No 03/26/2024 Is your family able to get c lothes or diapers when needed? (Household - for ages 0-17 years) Not on file 03/26/2024 Personal Safety Answer Date Recorded Do you feel unsafe or have concerns for your saf ety? No 03/26/2024 Do you have concerns for you r family's safety? (Household - for ages 0-17 years) Not on file 03/26/2024 Utilities Answer Date Recorded Do you have trouble paying y our heating, water, or electric bill? No 03/26/2024 Is your family able to pay t he heat, water, or electric bill? (Household - for ages 0-17 years) Not on file 03/26/2024 Does your family have access to good internet? (Household - for ages 0-17 years) Not on file 03/26/2024 Employment Status Answer Date Recorded Are you unemployed or without regular income? No 03/26/2024 Does the household have a re gular source of income? (Household - for ages 0-17 years) Not on file 03/26/2024 Social Connections Answer Date Recorded How often do you feel lonely or isolated from th ose around you? Never 03/26/2024 Financial Resource Strain Answer Date R ecorded Do you have any trouble payi ng for your medications, or do you think you might in the future? No 03/26/2024 Does your family have troubl e paying for medicine? (Household - for ages 0-17 years) Not on file 03/26/2024 Transportation Needs Answer Date Record ed Do you have trouble getting a ride to medical visits or work? (Adult - for ages 18 years and over) Not on file 03/26/2024 Does your family have a hard time getting a ride to doctors visits? (Household - for ages 0-17 years) Not on file 03/26/2024 Has lack of transportation k ept you from medical appointments, meetings, work, or from getting things needed for daily living? Check all that apply. No 03/26/2024 Do you (or your family) have trouble finding or paying for a ride (transportation)? (Household - for ages 0-17 years) Not on file 03/26/2024 Housing Stability Answer Date Recorded Do you currently live in a s helter or have no steady place to sleep at night? No 03/26/2024 Do you think you are at risk of becoming homeless? (Adult - for ages 18 years and over) Not on file 03/26/2024 Does your family worry about paying for your home or becoming homeless? (Household - for ages 0-17 years) Not on file 1 Are you homeless or worried that you might be in the future? No 03/26/2024 Are you (or your family) giuliano eless or worried that you might be in the future? (Household - for ages 0-17 years) Not on file Food Insecurity Answer Date Recorded Do you need food for this week? No 03/26/2024 Are you able to get enough f ood for your family? (Household - for ages 0-17 years) Not on file 03/26/2024 Does your family need food t his week? (Household - for ages 0-17 years) Not on file 03/26/2024 Do you always have enough fo od for your family? (Household - for ages 0-17 years) Not on file 03/26/2024 Food Insecurity Answer Date Recorded Within the past 12 months, y ou worried that your food would run out before you got the money to buy more. Never true 03/26/20 24 Within the past 12 months, t he food you bought just didn't last and you didn't have money to get more. Never true 03/26/2024 Do you need food for this week? 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 documented in this encounter Plan of Treatment Upcoming Encounters Date Type Department Care Team (Late st Contact Info) Description 09/05/2024 9:00 AM EDT Hem/Onc Treatment [address]ematology[address] [phone] [place], Chair [address] Hem On[address] [place] [address] 09/08/2024 9:30 AM EDT Imaging Radiology [address] [place] [phone] 09/18/2024 11:00 AM EDT Nurse Only Hematology/Oncology Treatment, [address] [place] [phone] [place], Chair 10 Hem On[address] [place] [address] 09/18/2024 12:00 PM EDT Office Visit Hematology/Oncology [facility] [place] [address] [place] [phone] Gabby Zavala CRNP [address] [place], [place] [address] [id number] 09/18/2024 12:30 PM EDT Hem/Onc Treatment Hematology/Oncology Treatment, [place] [address] [place] [address] [place], Chair 6 Hem Onc [address] [facility] [address] Health Maintenance Due Date Last Done Comments Depression Screening 2006 HPV (Gardasil) Vaccine (3 - 3-dose series) 02/05/2013 11/13/2012, 03/21/2012 Lipid Panel 2014 COVID-19 Vaccine ( season) 2024 HPV/Co-Test 2024 Cervical Cancer Screening 01/29/2026 Pap Smear 01/29/2026 01/29/2023, 11/17, 07/17/2018, Additional history exists DTap/Tdap Vaccines (9 - Td or Tdap) 08/13/2033 08/13/2023, 08/22/2019, 09/17/2008, Additional history exists Hepatitis B Vaccine Completed 02/17/1995, 1994, 1994 MENINGOCOCCAL (MENACTRA/MENVEO) Completed 11/13/2012, 02/02/2010 Influenza Vaccine (FLU shot) Completed 12/2023, 05/17/2023, 08/21/2019, Additional history exists Meningitis B Vaccine (Bexsero/Trumemba) Aged Out No longer eligible based on patient's age to complete this topic Pneumococcal Vaccine: Pediatrics (0 to 5 Years) and At-Risk Patients (6 to 18 Years and 19+ Years) Aged Out No longer eligib le based on patient's age to complete this topic documented as of this encounter Medical Devices Implanted Type Area E Learning Manager Device Identifier Shelf Expiration Date Model / Serial / Lot Therese Angulo 4fr 11cm - [id number] Implanted:Qty : 1 on 02/08/2024 by Jeffrey Kerr MD at OR [facility] [employer] [facility] [id number] 08/16/2028 [id number] / / [id number] Description:https://www.doct ordoctor.biz/search/Detail.aspx?[email or web address] JLS 09/04/2024 Non metallic Port Implant W8f Poly Cath - [id number] Implanted:Qty : 1 on 05/02/2024 by aIm Curry MD at OR [facility] Right: Chest CR BARD : PERIPHERAL VASCULAR [id number] 05/17/2025 [id number] / / [id number] documented as of this encounter Visit Diagnoses Diagnosis Diet controlled gestational diabetes mellitus (GDM) in third trimester- Primary Antepartum anemia complicating Anemia, antepartum Supervision of high risk , antepartum, third trimester 34 weeks gestation of state, incidental Diet controlled gestational diabetes mellitus (GDM) in third trimester- Primary Excessive growth affecting management of , antepartum, single or unspecified fetus 34 weeks gestation of state, incidental Other specified related conditions, unspecified trimester Diet controlled gestational diabetes mellitus (GDM) in third trimester- Primary Excessive growth affecting management of , antepartum, single or unspecified fetus Malignant neoplasm of upper-outer quadrant of left breast in female, estrogen receptor negative (HCC)- Primary Dehydration documented in this encounter Care Teams Title I Director Relationship Specialty Start Date End Date Malinda Owens CRNP [address] [facility] [place] [address] PCP - General Nurse Practitioner 09/20/23 documented as of this encounter
--- OUTSIDE RECORDS SUMMARY | 2024-09-05 14:21 | External Medical Summary ---
Author Name Unknown Address Unknown Organization [id number]:[facility] [place] [place] [address] Laboratory Report Ordering Provider Test Date Status JASMINE JANSEN 09/04/2024 12:40:13 Final Observation Date Value Abnormality Reference (Units ) Status WBC, Total 09/04/2024 12:40:13 1.61 Below low normal 4. 00-10.80 (K/uL) Final RBC 09/04/2024 12:40:13 3.24 3.85-5.15 (M/uL) Final Hemoglobin 09/04/2024 12:40:13 10.9 Below low normal 12 .0-15.3 (g/dL) Final HCT 09/04/2024 12:40:13 31.3 Below low normal 36. 0-45.2 (%) Final MCV 09/04/2024 12:40:13 96.6 81.5-97.5 (fL) Final MCH 09/04/2024 12:40:13 33.6 27.0-34.0 (pg) Final MCHC 09/04/2024 12:40:13 34.8 32.0-36.0 (g/dL) Final RDW 09/04/2024 12:40:13 10.9 11.5-15.5 (%) Final Platelets 09/04/2024 12:40:13 57 Below low normal 140 -400 (K/uL) Final MPV 09/04/2024 12:40:13 10.5 6.6-11.1 ( fL) Final Performing Location [facility] [place] [place] [address]
--- OUTSIDE RECORDS SUMMARY | 2024-09-05 14:21 | External Medical Summary | Summary of Care ---
Author Name Unknown Organization [facility] Address [address] [place] [place] [place] [address] Phone [phone] Care Team Providers Care Joy Operator Name Role Phone Malinda Owens AD Primary Care Provider [phone] Encounter Details Date Type Department Care Team (Late st Contact Info) Description 09/04/2024 Orders Only Hematology/Oncology [facility] [address] [place] [phone] Kanu Maravilla MD [address] [place] [address] Allergies No known active allergiesdocumented as of this encounter (statuses as of 09/05/2024) Medications 29-1 MG Oral Tablet Chewable Take by [...] and class I obesity. Per review of BRICK MACHINE OPERATOR documentation of 09/25/23, blood glucose [...] Recommend nutrition consult with RDN (Registered Dietitian Tobacco Weigher). Lifestyle changes are also indicated including optimizing [...] and folate levels and referral to a guest services attendant. If hemoglobin levels are below 8 g/dl, we recommend Maternal Medicine ultrasound for growth every 4 weeks after 24 weeks. Consider a blood transfusion if hemoglobin levels fall below 6 g/dL. ([employer] Practice Bulletin Number 95, December,). Consider [...] money to get more. 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 Not on file Not on file documented as of this encounter Plan of Treatment Upcoming Encounters Date Type Department Care Team (Late st Contact Info) Description 09/05/2024 9:00 AM EDT Hem/Onc Treatment Hematology/Oncology Treatment [address] [place] [phone] [place], Chair [address] On[address] [place] [address] 09/08/2024 9:30 AM EDT Imaging Radiology [address] [place] [address] 09/18/2024 11:00 AM EDT Nurse Only Hematology/Oncology [address] [phone] [place], Chair 10 Hem Onc [address] [place] [address] 09/18/2024 12:00 PM EDT Office Visit Hematology/Oncology [facility] [address] [place] [phone] Gabby Zavala CRNP [address] [facility] [place] [address] 09/18/2024 12:30 PM EDT Hem/Onc Treatment Hematology/Oncology Treatment, [address] [place] [phone] [place], Chair 6 Hem Onc [address] [place] [address] Health Maintenance Due Date Last Done Comments [...] this encounter Medical Devices Implanted Type Area Administrator Device Identifier Shelf Expiration Date Model / Serial / Lot Stent Angulo 4fr 11cm - [id number] Implanted:Qty : 1 on 02/08/2024 by Jeffrey Kerr MD at OR [facility] [employer] [id number] 08/16/2028 [id number] / / [id number] Description:https://www.doct ordoctor.biz/search/Detail.aspx?[email or web address] JLS 09/04/2024 Non metallic Port Implant W8f Poly Cath - [id number] Implanted:Qty : 1 on 05/02/2024 by Iam Curry MD at OR [facility] Right: Chest CR BARD : PERIPHERAL VASCULAR [id number] 05/17/2025 [id number] / / [id number] documented as of this encounter Care Teams Joy Operator Relationship Specialty Start Date End Date Malinda Owens CRNP [address] [place] [address] PCP - General Nurse Practitioner 09/20/23 documented as of this encounter
--- OUTSIDE RECORDS SUMMARY | 2024-09-05 14:21 | External Medical Summary ---
Author Name Unknown Address Unknown Organization [id number]:[facility] [place] [address] Laboratory Report Ordering Provider Test Date Status INDERJITJASMINE 09/04/2024 12:40:13 Final Observation Date Value Abnormality Reference (Units ) Status Magnesium 09/04/2024 12:40:13 1.7 1.5-2.6 (m g/dL) Final Performing Location [facility] [place] [address]
--- OUTSIDE RECORDS SUMMARY | 2024-09-05 14:21 | External Medical Summary ---
Author Name Unknown Address Unknown Organization [id number]:[facility] [address] [place] [address] Laboratory Report Ordering Provider Test Date Status JASMINE JANSEN 09/04/2024 12:40:13 Final Observation Date Value Abnormality Reference (Units ) Status BUN 09/04/2024 12:40:13 12 6-20 (mg/dL) Final Creatinine 09/04/2024 12:40:13 0.8 0.5-1.0 (mg/dL) Final Glomerular filtration rate/1.73 sq M.predicted [Volume Rate/Area] in Serum, Plasma or Blood by Creatinine-based formula (CKD-EPI) 09/04/2024 12:40:13 >90 >=60 (mL/min) Final eGFR is calculated based on the CKD-EPI 2020 equation. Sodium 09/04/2024 12:40:13 133 Below low normal 135 -146 (mmol/L) Final Potassium 09/04/2024 12:40:13 3.9 3.5-5.1 (m mol/L) Final Cl 09/04/2024 12:40:13 100 98-107 (mm ol/L) Final CO2 09/04/2024 12:40:13 21 Below low normal 22- 32 (mmol/L) Final Anion gap 09/04/2024 12:40:13 12 7-15 (mmol /L) Final Glucose 09/04/2024 12:40:13 90 70-120 (mg /dL) Final Albumin 09/04/2024 12:40:13 4.1 3.8-5.0 (g /dL) Final AST (Aspartate aminotransferase) 09/04/2024 12:40:13 15 10-35 (U/L) Fin al Alk Phos 09/04/2024 12:40:13 79 35-130 (U/ L) Final Bilirubin, Total 09/04/2024 12:40:13 0.7 <=1 .2 (mg/dL) Final Calcium 09/04/2024 12:40:13 9.4 8.4-10.2 ( mg/dL) Final Protein 09/04/2024 12:40:13 6.9 6.0-8.3 (g /dL) Final ALT (Alanine aminotransferase) 09/04/2024 12:40:13 18 10-35 (U/L) Clif[place] [email or web address] Performing Location [facility] [address] [place] [address]
--- OUTSIDE RECORDS SUMMARY | 2024-09-05 14:21 | External Medical Summary ---
Author Name Unknown Address Unknown Organization K09:[facility] [place] [address] Laboratory Report Ordering Provider Test Date Status JASMINE JANSEN 09/05/2024 09:10:25 Final Observation Date Value Abnormality Reference (Units ) Status WBC, Total 09/05/2024 09:10:25 1.48 Below low normal 4. 00-10.80 (K/uL) Final Results rechecked. RBC 09/05/2024 09:10:25 2.98 3.85-5.15 (M/uL) Final Hemoglobin 09/05/2024 09:10:25 10.1 Below low normal 12 .0-15.3 (g/dL) Final HCT 09/05/2024 09:10:25 29.0 Below low normal 36. 0-45.2 (%) Final MCV 09/05/2024 09:10:25 97.3 81.5-97.5 (fL) Final MCH 09/05/2024 09:10:25 33.9 27.0-34.0 (pg) Final MCHC 09/05/2024 09:10:25 34.8 32.0-36.0 (g/dL) Final RDW 09/05/2024 09:10:25 10.8 11.5-15.5 (%) Final Platelets 09/05/2024 09:10:25 38 Below low normal 140 -400 (K/uL) Final Results rechecked. MPV 09/05/2024 09:10:25 10.7 6.6-11.1 ( fL) Final Performing Location [facility] [place] [address]
--- OUTSIDE RECORDS SUMMARY | 2024-09-05 14:21 | External Medical Summary | Summary of Care ---
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 Enrolled in Current Health. Plans to turkey picker meter from pharmacy today. Instructions provided [...] and class I obesity. Per review of AUTOMATIC PATTERN EDGER documentation of 09/25/23, blood glucose values have [...] Recommend nutrition consult with RDN (Registered Dietitian Elementary Reading Tutor). Lifestyle changes are also indicated including optimizing [...] and folate levels and referral to a research methodologist. If hemoglobin levels are below 8 g/dl, we recommend Maternal Medicine ultrasound for growth every 4 weeks after 24 weeks. Consider a blood transfusion if hemoglobin levels fall below 6 g/dL. ([employer] Bulletin Number 95, December,). Consider [...] money to get more. 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 Port needle flushed with 10 ml NSS, blood return noted, and port locked with additional 10 ml NSS. Lopez needle removed, intact, gauze dressing applied. Goals: Pt will remain free from injury. Possible barriers to meeting goals: pt is currently a high fall risk; ambulation with IV pole Stability of the patient: Moderately stable - low risk of patient condition declining or worsening Summary regarding today's goals: Met: . Pt remained free from injury during treatment today. Discharged in stable condition. * Ava Pope RN - 09/04/2024 2:14 PM EDT Chair 3, IV hydration. Pt presents to clinic c/o persistent dizziness, difficulty ambulating. Pt isvisibly unsteady when ambulating in clinic. Pt denies N/V, pain, bowel issues. Pt states dizziness has progressively gotten worse since treatment last week. Pt reports low appetite, but stated she is trying to stay hydrated. VAD accessed; specimen collected for ordered labs. NSS infusing. Safety and Risk for Injury Patient will remain free from injury. Ensure appropriate safety devices are available. Provide and maintain safe environment. Patient instructed on use of heat and massage functions where applicable. Patient shown how to operate the heat function of the chair and to alert nursing staff if the chair feels too warm. Patient instructed on the risk of potential segovia while using the heat function. documented in this encounter Plan of Treatment Upcoming Encounters Date Type Department Care Team (Late st Contact Info) Description 09/05/2024 9:00 AM EDT Hem/Onc Treatment Hematology/Oncology Treatment [address] [place] [phone] [place], Chair 3 Hem On[address] [place] [address] 09/08/2024 9:30 AM EDT Imaging Radiology [address] [place] [address] 09/18/2024 11:00 AM EDT Nurse Only Hematology/Oncology Treatment [address] [place] [phone] [place], Chair 10 Hem On[address] [place] [address] 09/18/2024 12:00 PM EDT Office Visit Hematology/Oncology [facility] [place] [address] [place] [phone] Gabby Zavala CRNP [address] [place], [place] [address] [address] 09/18/2024 12:30 PM EDT Hem/Onc Treatment Hematology/Oncology Treatment, [address] [place] [phone] [place], Chair 6 Hem Onc [address]ery [address] [place] [address] Health Maintenance Due Date Last Done Comments [...] this encounter Medical Devices Implanted Type Area Photo Manager Device Identifier Shelf Expiration Date Model / Serial / Lot Stent Kev 4fr 11cm - [id number] Implanted:Qty : 1 on 02/08/2024 by [facility] [id number] 08/16/2028 [id number] / / [id number] Description:[email or web address]://www.doct [email or web address].biz/search/Detail.[email or web address]?[email or web address] JLS 09/04/2024 Non metallic Port Implant W8f Poly Cath - [id number] Implanted:Qty : 1 on 05/02/2024 by Iam Curry MD at OR [facility] Right: Chest CR BARD : PERIPHERAL VASCULAR [id number] 05/17/2025 [id number] / / [id number] documented as of this encounter Procedures Procedure Name Priority Date/Time Associated Diagnosis Comments DIFFERENTIAL, AUTOMATED STAT 09/04/2024 12:40 PM EDT Malignant neoplasm of upper-outer quadrant of left breast in female, estrogen receptor negative (HCC) COMPREHENSIVE METABOLIC PANEL STAT 09/04/2024 12:40 PM EDT Malignant neoplasm of upper-outer quadrant of left breast in female, estrogen receptor negative (HCC) CBC STAT 09/04/2024 12:40 PM EDT Malignant neoplasm of upper-outer quadrant of left breast in female, estrogen receptor negative (HCC) CBC STAT 09/04/2024 12:40 PM EDT Malignant neoplasm of upper-outer quadrant of left breast in female, estrogen receptor negative (HCC) DIFFERENTIAL, TECHNOLOGIST REVIEW Routine 09/04/2024 12:40 PM EDT Malignant neoplasm of upper-outer quadrant of left breast in female, estrogen receptor negative (HCC) MAGNESIUM STAT 09/04/2024 12:40 PM EDT Malignant neoplasm of upper-outer quadrant of left breast in female, estrogen receptor negative (HCC) documented in this encounter Results * (ABNORMAL) DIFFERENTIAL, TECHNOLOGIST REVIEW (09/04/2024 12:40 PM EDT) WBC 1.61(L) 4.00 - 10.80 K/uL 09/04/2024 1:18 PM EDT [facility] 56-02 Neutrophils % 1.0(L) 40.0 - 75.0 % 09/04/2024 1:18 PM EDT [facility] 56-02 Lymphocytes % 89.0(H) 18.0 - 42.0 % 09/04/2024 1:18 PM EDT [facility] 56-02 Monocytes % 2.0 1.0 - 11.0 % 09/04/2024 1:18 PM EDT [facility] 56-02 Eosinophils % 8.0(H) 0.0 - 6.0 % 09/04/2024 1:18 PM EDT [facility] 56- Absolute Neutrophils 0.02(L) 1.80 - 7.70 K/uL 09/04/2024 1:18 PM EDT [facility] 56- Absolute Lymphocytes 1.43 1.00 - 4.80 K/uL 09/04/2024 1:18 PM EDT [facility] 56- Absolute Monocytes 0.03 0.00 - 1.10 K/uL 09/04/2024 1:18 PM EDT [facility] 56 Absolute Eosinophils 0.13 0.00 - 0.70 K/uL 09/04/2024 1:18 PM EDT [facility] 56- nRBCs 09/04/2024 1:18 PM EDT [facility] 56- Reactive Lymphocytes Present(A ) None Seen 09/04/2024 1:18 PM EDT [facility] 56 Blood Blood sample taken from central line / Unknown Central Line / Unknown 09/04/2024 12:40 PM EDT 09/04/2024 1:06 PM EDT us Kanu Maravilla MD LAB BLOOD ORDERABLES Final Res ult [facility] [address] [place] [address] * DIFFERENTIAL, AUTOMATED (09/04/2024 12:40 PM EDT) Blood Blood sample taken from central line / Unknown Central Line / Unknown 09/04/2024 12:40 PM EDT 09/04/2024 1:06 PM EDT Kanu Maravilla MD LAB BLOOD ORDERABLES Final Res ult [facility] [address] [place] [address] * (ABNORMAL) CBC (09/04/2024 12:40 PM EDT) WBC 1.61(L) 4.00 - 10.80 K/uL 09/04/2024 1:18 PM EDT [facility] 56 RBC 3.24 3.85 - 5.15 M/uL 09/04/2024 1:18 PM EDT [facility] 56 HGB 10.9(L) 12.0 - 15.3 g/dL 09/04/2024 1:18 PM EDT [facility] 56 HCT 31.3(L) 36.0 - 45.2 % 09/04/2024 1:18 PM EDT [facility] 56 MCV 96.6 81.5 - 97.5 fL 09/04/2024 1:18 PM EDT [facility] 56 MCH 33.6 27.0 - 34.0 pg 09/04/2024 1:18 PM EDT [facility] 56 MCHC 34.8 32.0 - 36.0 g/dL 09/04/2024 1:18 PM EDT [facility] 56 RDW 10.9 11.5 - 15.5 % 09/04/2024 1:18 PM EDT [facility] 56 PLT 57(L) 140 - 400 K/uL 09/04/2024 1:18 PM EDT [facility] 56 MPV 10.5 6.6 - 11.1 fL 09/04/2024 1:18 PM EDT [facility] 56 Blood Blood sample taken from central line / Unknown Central Line / Unknown 09/04/2024 12:40 PM EDT 09/04/2024 1:06 PM EDT us Kanu Maravilla MD LAB BLOOD ORDERABLES Final Res ult [facility] 56- [address] [place] [address] * MAGNESIUM (09/04/2024 12:40 PM EDT) Magnesium 1.7 1.5 - 2.6 mg/dL 09/04/2024 1:48 PM EDT [facility] 56 Blood Blood sample taken from central line / Unknown Central Line / Unknown 09/04/2024 12:40 PM EDT 09/04/2024 1:06 PM EDT us Kanu Maravilla MD LAB BLOOD ORDERABLES Final Res ult [facility] [address] [place] [address] * (ABNORMAL) COMPREHENSIVE METABOLIC PANEL (09/04/2024 12:40 PM EDT) BUN 12 6 - 20 mg/dL 09/04/2024 1:48 PM EDT [facility] 56 CREATININE 0.8 0.5 - 1.0 mg/dL 09/04/2024 1:48 PM EDT [facility] 56 EGFR >90 >=60 mL/min 09/04/2024 1:48 PM EDT [facility] 56 Comment:eGFR is calculated b ased on the CKD-EPI 2020 equation. SODIUM 133(L) 135 - 146 mmol/L 09/04/2024 1:48 PM EDT [facility] 56 POTASSIUM 3.9 3.5 - 5.1 mmol/L 09/04/2024 1:48 PM EDT [facility] 56 CHLORIDE 100 98 - 107 mmol/L 09/04/2024 1:48 PM EDT [facility] 56 CO2 21(L) 22 - 32 mmol/L 09/04/2024 1:48 PM EDT [facility] 56 ANION GAP 12 7 - 15 mmol/L 09/04/2024 1:48 PM EDT [facility] 56 GLUCOSE 90 70 - 120 mg/dL 09/04/2024 1:48 PM EDT [facility] 56 Albumin 4.1 3.8 - 5.0 g/dL 09/04/2024 1:48 PM EDT [facility] 56 AST 15 10 - 35 U/L 09/04/2024 1:48 PM EDT [facility] 56 Alkaline Phosphatase 79 35 - 130 U/L 09/04/2024 1:48 PM EDT [facility] 56- Bilirubin, Total 0.7 <=1.2 mg/dL 09/04/2024 1:48 PM EDT [facility] 56- CALCIUM 9.4 8.4 - 10.2 mg/dL 09/04/2024 1:48 PM EDT [facility] 56- Protein 6.9 6.0 - 8.3 g/dL 09/04/2024 1:48 PM EDT [facility] 56- ALT 18 10 - 35 U/L 09/04/2024 1:48 PM EDT [facility] 56- Blood Blood sample taken from central line / Unknown Central Line / Unknown 09/04/2024 12:40 PM EDT 09/04/2024 1:06 PM EDT us Kanu Maravilla MD LAB BLOOD ORDERABLES Final Res ult [facility] [address] [place] [address] documented in this encounter Visit Diagnoses Diagnosis Diet controlled [...] (HCC)- Primary Dehydration documented in this encounter Administered Medications Inactive Administered Medications - up to 3 most recent administrations Medication Order MAR Action Action Date Dose Rate Site NSS infusion FOR HYDRATION Intravenous, at 500 mL/hr Administer over 2 Hours, ONCE, 1 dose, On Sun09/04/24 at 1345Indications:Malignant neoplasm of upper-outer quadrant of left breast in female, estrogen receptor negative (HCC),Dehydration Start Infusion 09/04/2024 12:54 PM EDT 1,000 mL 500 mL/hr sodium chloride 0.9 % flush central line 10 mL 10 mL, IV Push, PRN Other, IV Flush, Starting on Sun09/04/24 at 1238, Until Bibi 09/04/24 at 2006, For 24 hours, Do not flush if lock, PICC, or central line not in place; IV infusing or unable to flush.Indications:Maligna nt neoplasm of upper-outer quadrant of left breast in female, estrogen receptor negative (HCC),Dehydration Given 09/04/2024 2:57 PM EDT 20 mL documented in this encounter Care Teams Aircraft Loadmaster Superintendent Relationship Specialty Start Date End Date Malinda Owens CRNP [address] [facility] [place] [address] PCP - General Nurse Practitioner 09/20/23 documented as of this encounter
--- OUTSIDE RECORDS SUMMARY | 2024-09-05 14:22 | External Medical Summary ---
Author Name Unknown Address Unknown Organization [id number]:[facility] - [address] [place] [address] Laboratory Report Ordering Provider Test Date Status RADHA CUEVAS 08/28/2024 11:47:28 Final Observation Date Value Abnormality Reference (Units ) Status Folic Acid 08/28/2024 11:47:28 >20.0 >4.5 (ng/ mL) Final Performing Location [facility] - [address] [place] [address]
--- OUTSIDE RECORDS SUMMARY | 2024-09-05 14:22 | External Medical Summary ---
Author Name Unknown Address Unknown Organization [id number]:[facility] [place] [address] Laboratory Report Ordering Provider Test Date Status JASMINE JANSEN 08/28/2024 11:47:28 Final Observation Date Value Abnormality Reference (Units ) Status WBC, Total 08/28/2024 11:47:28 5.63 4.00-10.8 0 (K/uL) Final RBC 08/28/2024 11:47:28 3.21 3.85-5.15 (M/uL) Final Hemoglobin 08/28/2024 11:47:28 10.9 Below low normal 12 .0-15.3 (g/dL) Final HCT 08/28/2024 11:47:28 32.5 Below low normal 36. 0-45.2 (%) Final MCV 08/28/2024 11:47:28 101.2 81.5-97.5 (fL) Final MCH 08/28/2024 11:47:28 34.0 27.0-34.0 (pg) Final MCHC 08/28/2024 11:47:28 33.5 32.0-36.0 (g/dL) Final RDW 08/28/2024 11:47:28 12.1 11.5-15.5 (%) Final Platelets 08/28/2024 11:47:28 175 140-400 (K /uL) Final MPV 08/28/2024 11:47:28 10.0 6.6-11.1 ( fL) Final Performing Location [facility] [place] [address]
--- OUTSIDE RECORDS SUMMARY | 2024-09-05 14:22 | External Medical Summary | Summary of Care ---
Author Name Unknown Organization [facility] Address [address] [place] [address] Phone [phone] Care Team Providers Care Executive Business Coach Name Role Phone Malinda Owens Primary Care Provider [phone] Reason for Visit * Reason Comments Chemotherapy C4 D15 Carbo Taxol * Episode Based Medications (Routine) - Authorized Specialty Diagnoses / Procedures Referred By Contac t Referred To Contact Diagnoses Malignant neoplasm of upper-outer quadrant of left breast in female, estrogen receptor negative (HCC) Encounter for antineoplastic chemotherapy Encounter for prevention of neutropenia due to chemotherapy Procedures OR DOXORUBIC HCL 10 MG VL CHEMO OR CARBOPLATIN INJECTION OR FOSAPREPITANT INJECTION OR INJ PEMBROLIZUMAB OR INJECTION, FULPHILA OR PACLITAXEL INJECTION OR INJ CYCLOPHOSPHAMD AUROMEDIC OR PALONOSETRON HCL Em Ng MD Hematology/Oncology Treatment, [address] [address] Phone: tel: fax: Referral ID Status Reason Start Date Expiration Date V isits Requested Visits Authorized [id number] Authorized 04/30/2024 06/17/2099 [id number] Encounter Details Date Type Department Care Team (Latest Contact Info) Description 07/31/2024 8:45 AM EST Hem/Onc Treatment Hematology/Oncolog y Treatment, [address] [address] [place] Chair 7 Hem Onc [address] [place] [address] Malignant neoplasm of upper-outer quadrant of left breast in female, estrogen receptor negative (HCC)*; Encounter for antineoplastic chemotherapy; Encounter for prevention of neutropenia due to chemotherapy Allergies No known active allergiesdocumented as of this encounter (statuses as of 08/27/2024) Medications 19 29-1 MG Oral Tablet Chewable [...] fulphila injection 20 Tablet 05/08/20 24 Active dexAMETHasone 4 MG Oral Tablet (Decadron)Indicati ons:Encounter for antineoplastic chemotherapy,Jess christie neoplasm of upper-outer quadrant of left breast in female, estrogen receptor negative (HCC) Take two tablets the night before and morning of each chemotherapy treatment 40 Tablet 05/22/20 24 Active Ondansetron HCl 8 MG Oral [...] before bedtime. 30 Tablet 07/07/19 25 Active documented as of this encounter (statuses as of 08/27/2024) Active Problems Problem Noted Date Diagnosed Date [...] complete. Enrolled in Current Health. 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 Instructions provided [...] and class I obesity. Per review of COLLIERY CLERK documentation of 09/25/23, blood glucose values have [...] Recommend nutrition consult with RDN (Registered Dietitian Lead Handler). Lifestyle changes are also indicated including optimizing [...] and folate levels and referral to a tool trouble shooter. If hemoglobin levels are below 8 g/dl, we recommend Maternal Medicine ultrasound for growth every 4 weeks after 24 weeks. Consider a blood transfusion if hemoglobin levels fall below 6 g/dL. ([employer] Practice Bulletin Number 95, December,). Consider [...] as of this encounter (statuses as of 08/27/2024) Resolved Problems Problem Noted Date Diagnosed Date Resolved Date Abnormal glucose tolerance i n mother complicating 04/19/2023 08/31/2023 Overview (04/19/2023): Failed early glucola. 3hr GTT ordered documented as of this encounter (statuses as of 08/27/2024) Immunizations Name Administration Dates Next Due DTP [...] money to get more. Never true 03/26/2024 [place] Depression Scale Answer Date Recorded [place] Depression Scale Total 6 12/11/2023 The thought [...] 03/26/2024 Does the household have a re lar source of income? 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 Not on file Not on file documented as of this encounter Last Filed Vital Signs Vital Sign Reading Time Taken Comments Blood Pressure 105/71 07/31/2024 8:48 AM EST Pulse 82 07/31/2024 8:48 AM EST Temperature 36.6 C (97.9 F) 07/31/2024 8:48 AM ES T Respiratory Rate 18 07/31/2024 8:48 AM EST Oxygen Saturation 95% 07/31/2024 8:48 AM EST Inhaled Oxygen Concentration - - Weight 90.8 kg (200 lb 3.2 oz) 07/31/2024 8:48 A M EST Height - - Body Mass Index 33.32 07/24/2024 8:04 AM EST documented in this encounter Nursing Notes * Jaqueline Arenas RN - 07/31/2024 2:39 PM EST Patient tolerated treatment without issue. Port needle flushed with 10 ml NSS, blood return noted, and port locked with additional 10 ml NSS. Lopez needle removed, intact, gauze dressing applied. Goals: Patient will remain free from injury. Possible barriers to meeting goals: Ambulating with IV pole Stability of the patient: Moderately stable - low risk of patient condition declining or worsening Summary regarding today's goals: Met: patient remained free from harm. Pt discharged in stable condition. * Jaqueline Arenas RN - 07/31/2024 2:29 PM EST Chair 5 Patient here for labs drawn from port and treatment. Port accessed with brisk blood return. Labs drawn and port flushed with NSS. Patient stated she feels the worst she has through all other treatments. She appears pale in color and complains of weakness. Patient verbalized concern about starting next phase "low". Discussed labs and complaints with Dr. Maravilla decision was made to treat last cycle of taxol carbo but delay start of Keytruda/ AC by 1 week. Patient also requested hydration today andDr. Maravilla agreed. Chemotherapy/Immunotherapy agents: CARBOPLATIN and TAXOL Consent for chemotherapy drug treatment complete, dated, and signed? yes, date - 04/24/24 Treatment lab parameters met? Yes Has treatment weight changed > than 10%? No Treatment preauthorized? Yes VITALS Filed Vitals: 07/31/24 0848 BP: 105/71 Pulse: 82 Resp: 18 Temp: 36.6 C (97.9 F) SpO2: 95% Weight: 90.8 kg (200 lb 3.2 oz) BP Readings from Last 2 Encounters: 07/31/24 105/71 07/24/24 100/71 Pulse Readings from Last 2 Encounters: 07/31/24 82 07/24/24 103 Resp Readings from Last 2 Encounters: 07/31/24 18 07/17/24 18 SpO2 Readings from Last 2 Encounters: 07/31/24 95% 07/24/24 97% Temp Readings from Last 2 Encounters: 07/31/24 36.6 C (97.9 F) 07/24/24 36.7 C (98.1 F) (Tympanic) Urine protein: N/A Patient education completed for treatment? Yes Blood transfusion consent signed and complete? NA Return appointment scheduled? Yes Patient had provider visit today? No - If no provider visit must complete Pretreatment Assessment Functional Status: Functional status at today's visit: Fully active, able to carry on all pre-disease performance without restriction The drug name, dose, infusion volume, rate and route of administration, expiration date and time, appearance and physical integrity of the drug and rate set on the pump and sequencing of drug administration (as applicable) were verified by me and second sign-in RN. Patient was assessed for symptoms or adverse side effects during treatment. Patient Education: Patient instructed on use of heat and massage functions where applicable. Patient shown how to operate the heat function of the chair and to alert nursing staff if the chair feels too warm. Patient instructed on the risk of potential segovia while using the heat function. PRE-TREATMENT ASSESSMENT: NEURO: fatigue:States feels more fatigued than she has thus far CV/RESP: denies symptoms GI/: denies symptoms OTHER: denies any additional symptoms PAIN: 0 Safety and Risk for Injury Patient will remain free from injury. Ensure appropriate safety devices are available. Provide and maintain safe environment. documented in this encounter Plan of Treatment Upcoming Encounters Date Type Department Care Team (Late st Contact Info) Description 08/28/2024 11:15 AM EDT Hem/Onc Treatment Hematology/Oncology Treatment, [place] [address] [facility] [place] [phone] [place], Chair 10 Hem Onc [facility] [address] [facility] [place] [address] 09/11/2024 8:00 AM EDT Office Visit Hematology/Oncology [facility] [place] [address] [facility] [place] [phone] Gabby Zavala CRNP [address] [place] [address] Health Maintenance Due Date Last Done Comments Depression Screening 2006 HPV (Gardasil) Vaccine (3 - 3-dose series) 02/05/2013 11/13/2012, 03/21/2012 COVID-19 Vaccine ( season) 2024 HPV/Co-Test 2024 [...] this encounter Medical Devices Implanted Type Area Clock Maker Device Identifier Shelf Expiration Date Model / Serial / Lot Stent Angulo 4fr 11cm - [id number] Implanted:Qty : 1 on 02/08/2024 by Jeffrey Kerr MD at OR [facility] [employer] [id number] 08/16/2028 [id number] / / [id number] Port Implant W8f Poly Cath - [id number] Implanted:Qty : 1 on 05/02/2024 by Iam Curry MD at OR [facility] Right: Chest CR BARD : PERIPHERAL VASCULAR [id number] 05/17/2025 [id number] / / [id number] documented as of this encounter Procedures Procedure Name Priority Date/Time Associated Diagnosis Comments DIFFERENTIAL, AUTOMATED STAT 07/31/2024 8:44 AM EST Malignant neoplasm of upper-outer quadrant of left breast in female, estrogen receptor negative (HCC) COMPREHENSIVE METABOLIC PANEL STAT 07/31/2024 8:44 AM EST Malignant neoplasm of upper-outer quadrant of left breast in female, estrogen receptor negative (HCC) CBC STAT 07/31/2024 8:44 AM EST Malignant neoplasm of upper-outer quadrant of left breast in female, estrogen receptor negative (HCC) CBC STAT 07/31/2024 8:44 AM EST Malignant neoplasm of upper-outer quadrant of left breast in female, estrogen receptor negative (HCC) DIFFERENTIAL, TECHNOLOGIST REVIEW Routine 07/31/2024 8:44 AM EST Malignant neoplasm of upper-outer quadrant of left breast in female, estrogen receptor negative (HCC) HCG QUALITATIVE, URINE STAT 8:44 AM EST Malignant neoplasm of upper-outer quadrant of left breast in female, estrogen receptor negative (HCC) documented in this encounter Results * DIFFERENTIAL, TECHNOLOGIST REVIEW (07/31/2024 8:44 AM EST) Pathologist [facility] nRs 07/31/2024 10:02 AM EST [facility] 56-02 Blood Venous blood specimen / Unknown Central Line / Unknown 07/31/2024 8:44 AM EST 07/31/2024 9:39 AM EST Kanu Maravilla MD LAB BLOOD ORDERABLES Final Res ult [facility] 56-[address] [place] [address] * (ABNORMAL) DIFFERENTIAL, AUTOMATED (07/31/2024 8:44 AM EST) WBC 2.59(L) 4.00 - 10.80 K/uL 07/31/2024 10:02 AM EST [facility] 56-02 Neutrophils % 71.4 40.0 - 75.0 % 07/31/2024 10:02 AM [facility] 56-02 Lymphocytes % 27.0 18.0 - 42.0 % 07/31/2024 10:02 AM [facility] 56-02 Monocytes % 1.2 1.0 - 11.0 % 07/31/2024 10:02 AM [facility] 56-02 Eosinophils % 0.0 0.0 - 6.0 % 07/31/2024 10:02 AM [facility] 56-02 Basophils % 0.4 0.0 - 2.0 % 07/31/2024 10:02 AM [facility] 56-02 Absolute Neutrophils 1.85 1.80 - 7.70 K/uL 07/31/2024 10:02 AM [facility] 56-02 Absolute Lymphocytes 0.70(L) 1.00 - 4.80 K/ul 07/31/2024 10:02 AM [facility] 56-02 Absolute Monocytes 0.03 0.00 - 1.10 K/uL 07/31/2024 10:02 AM [facility] 56-02 Absolute Eosinophils 0.00 0.00 - 0.70 K/uL 07/31/2024 10:02 AM [facility] 56-02 Absolute Basophils 0.01 0.00 - 0.20 K/uL 07/31/2024 10:02 AM [facility] 56-02 Blood Venous blood specimen / Unknown Central Line / Unknown 07/31/2024 8:44 AM EST 07/31/2024 9:39 AM EST us Kanu Maravilla MD LAB BLOOD ORDERABLES Final Res ult [facility] 56-[address] [place] [address] * (ABNORMAL) CBC (07/31/2024 8:44 AM EST) WBC 2.59(L) 4.00 - 10.80 K/uL 07/31/2024 10:02 AM [facility] 56-02 RBC 3.39 3.85 - 5.15 M/uL 07/31/2024 10:02 AM [facility] 56-02 HGB 11.4(L) 12.0 - 15.3 g/dL 07/31/2024 10:02 AM [facility] 56- HCT 34.6(L) 36.0 - 45.2 % 07/31/2024 10:02 AM [facility] 56- MCV 102.1 81.5 - 97.5 fL 07/31/2024 10:02 AM [facility] 56- MCH 33.6 27.0 - 34.0 pg 07/31/2024 10:02 AM [facility] 56- MCHC 32.9 32.0 - 36.0 g/dL 07/31/2024 10:02 AM [facility] 56- RDW 14.6 11.5 - 15.5 % 07/31/2024 10:02 AM [facility] 56- PLT 179 140 - 400 K/uL 07/31/2024 10:02 AM [facility] 56- MPV 10.2 6.6 - 11.1 fL 07/31/2024 10:02 AM [facility] 56 Blood Venous blood specimen / Unknown Central Line / Unknown 07/31/2024 8:44 AM EST 07/31/2024 9:39 AM EST us Kanu Maravilla MD LAB BLOOD ORDERABLES Final Res ult [facility] 56 [address] [place] [address] * HCG QUALITATIVE, URINE (07/31/2024 8:44 AM EST) HCG Qualitative, Urine Negative Negative 07/31/2024 9:57 AM [facility] 56- Urine Urine specimen obtained by clean catch procedure / Unknown Non-blood Collection / Unknown 07/31/2024 8:44 AM EST 07/31/2024 9:48 AM EST us Kanu Maravilla MD LAB URINE ORDERABLES Final Res ult [facility] 56- [address] [facility] [place] [place] [address] * (ABNORMAL) COMPREHENSIVE METABOLIC PANEL (07/31/2024 8:44 AM EST) BUN 16 6 - 20 mg/dL 07/31/2024 10:02 AM [facility] 56- CREATININE 0.7 0.5 - 1.0 mg/dL 07/31/2024 10:02 AM [facility] 56- EGFR >90 >=60 mL/min 07/31/2024 10:02 AM [facility] 56- Comment:eGFR is calculated b ased on the CKD-EPI 2020 equation. SODIUM 140 135 - 146 mmol/L 07/31/2024 10:02 AM [facility] 56- POTASSIUM 4.3 3.5 - 5.1 mmol/L 07/31/2024 10:02 AM [facility] 56- CHLORIDE 104 98 - 107 mmol/L 07/31/2024 10:02 AM [facility] 56 CO2 20(L) 22 - 32 mmol/L 07/31/2024 10:02 AM [facility] 56- ANION GAP 16(H) 7 - 15 mmol/L 07/31/2024 10:02 AM [facility] 56 GLUCOSE 223(H) 70 - 120 mg/dL 07/31/2024 10:02 AM [facility] 56 Albumin 4.5 3.8 - 5.0 g/dL 07/31/2024 10:02 AM [facility] 56- AST 16 10 - 35 U/L 07/31/2024 10:02 AM [facility] 56- Alkaline Phosphatase 80 35 - 130 U/L 07/31/2024 10:02 AM [facility] 56- Bilirubin, Total 0.4 <=1.2 mg/dL 07/31/2024 10:02 AM [facility] 56- CALCIUM 9.6 8.4 - 10.2 mg/dL 07/31/2024 10:02 AM [facility] 56- Protein 7.5 6.0 - 8.3 g/dL 07/31/2024 10:02 AM [facility] 56- ALT 20 10 - 35 U/L 07/31/2024 10:02 AM EST [facility] 56-02 Blood Venous blood specimen / Unknown Central Line / Unknown 07/31/2024 8:44 AM EST 07/31/2024 9:38 AM EST us Kanu Maravilla MD LAB BLOOD ORDERABLES Final Res ult [facility] 56- [address] [place] [address] documented in this encounter Visit Diagnoses Diagnosis [...] in female, estrogen receptor negative (HCC)- Primary Encounter for antineoplastic chemotherapy Encounter for prevention of neutropenia due to chemotherapy documented in this encounter Administered Medications Inactive Administered Medications - up to 3 most recent administrations Medication Order MAR Action Action Date Dose Rate Site CARBOplatin (Paraplatin) 225 mg in D5W 250 mL infusion 225 mg (Target AUC = 1.5), IV Piggyback, at 510 mL/hr Administer over 30 Minutes, PROTECT FROM LIGHT, ONCE, 1 dose, On Bibi 07/31/24 at 1145Indications:Malignant neoplasm of upper-outer quadrant of left breast in female, estrogen receptor negative (HCC),Encounter for antineoplastic chemotherapy,Encounter for prevention of neutropenia due to chemotherapy Start Infusion 07/31/2024 12:24 PM EST 225 mg 510 mL/hr dexAMETHasone (Decadron) tab 12 mg 12 mg, Oral, ONCE, On Bibi 07/31/24 at 1045, For 1 doseIndications:Malignant neoplasm of upper-outer quadrant of left breast in female, estrogen receptor negative (HCC),Encounter for antineoplastic chemotherapy,Encounter for prevention of neutropenia due to chemotherapy Given 07/31/2024 10:58 AM EST 12 mg diphenhydrAMINE (Benadryl) inj 25 mg 25 mg, IV Push, ONCE, On Bibi 07/31/24 at 1045, For 1 doseIndications:Malignant neoplasm of upper-outer quadrant of left breast in female, estrogen receptor negative (HCC),Encounter for antineoplastic chemotherapy,Encounter for prevention of neutropenia due to chemotherapy Given 07/31/2024 11:01 AM EST 25 mg Famotidine (Pepcid) inj 20 mg 20 mg, IV Push, ONCE, On Bibi 07/31/24 at 1045, For 1 dose, Give IV push over 2 minutes.Indications:Maligna nt neoplasm of upper-outer quadrant of left breast in female, estrogen receptor negative (HCC),Encounter for antineoplastic chemotherapy,Encounter for prevention of neutropenia due to chemotherapy Given 07/31/2024 10:59 AM EST 20 mg NSS infusion FOR HYDRATION Intravenous, at 500 mL/hr Administer over 2 Hours, ONCE, 1 dose, On Bibi 07/31/24 at 1130Indications:Malignant neoplasm of upper-outer quadrant of left breast in female, estrogen receptor negative (HCC),Encounter for antineoplastic chemotherapy,Encounter for prevention of neutropenia due to chemotherapy Start Infusion 07/31/2024 11:10 AM EST 1,000 mL 500 mL/hr NSS infusion Intravenous, at 50 mL/hr, PRN, Starting on Bibi 07/31/24 at 1130, Until Bibi 07/31/24 at 1842, Maintenance lineIndications:Malignant neoplasm of upper-outer quadrant of left breast in female, estrogen receptor negative (HCC),Encounter for antineoplastic chemotherapy,Encounter for prevention of neutropenia due to chemotherapy Start Infusion 07/31/2024 10:22 AM EST 50 mL/hr PACLitaxel (Taxol) 165 mg in NSS 250 mL infusion 165 mg (rounded from 164.8 mg = 80 mg/m2 2.06 m2 Treatment Plan BSA from Recorded weight), IV Piggyback, ONCE, 1 dose, On Bibi 07/31/24 at 1230, Administer over 60 Minutes, Administer through 0.22 micron low protein binding filter!Indications:Malignan t neoplasm of upper-outer quadrant of left breast in female, estrogen receptor negative (HCC),Encounter for antineoplastic chemotherapy,Encounter for prevention of neutropenia due to chemotherapy Start Infusion 07/31/2024 11:21 AM EST 165 mg 255 mL/hr Palonosetron (Aloxi) inj SOLN 0.25 mg 0.25 mg, IV Push, ONCE, On Bibi 07/31/24 at 1045, For 1 dose, Restricted per [facility] antiemetic guidelinesIndications:Jess christie neoplasm of upper-outer quadrant of left breast in female, estrogen receptor negative (HCC),Encounter for antineoplastic chemotherapy,Encounter for prevention of neutropenia due to chemotherapy Given 07/31/2024 11:01 AM EST 0.25 mg sodium chloride 0.9 % flush/inj 20 mL 20 mL, IV Push, PRN IV Flush and Lock, Starting on Bibi 07/31/24 at 1016, Until Bibi 07/31/24 at 1842, Do not flush if lock, PICC, or central line not in place; IV infusing or unable to flush. For midlines and central lines. For IV Flush and Lock, IVAD is flushed with a total of 20 mL Normal Saline, 10 mL of Normal Saline Flush with 10 mL of Normal Saline acting as IV LOCK.Indications:Malignant neoplasm of upper-outer quadrant of left breast in female, estrogen receptor negative (HCC),Encounter for antineoplastic chemotherapy,Encounter for prevention of neutropenia due to chemotherapy Given 07/31/2024 1:08 PM EST 20 mL documented in this encounter Care Teams Executive Business Coach Relationship Specialty Start Date End Date Malinda Owens CRNP [address] [facility] [place] [address] PCP - General Nurse Practitioner 09/20/23 documented as of this encounter
--- OUTSIDE RECORDS SUMMARY | 2024-09-05 14:22 | External Medical Summary ---
Author Name Unknown Address Unknown Organization K01:LABORATORY [facility] - [address] [place] [address] Laboratory Report Ordering Provider Test Date Status RADHA CUEVAS 08/28/2024 11:47:28 Final Observation Date Value Abnormality Reference (Units ) Status Ferritin 08/28/2024 11:47:28 128 13-150 (ng /mL) Final Performing Location [facility]ORY [facility] [address] [place] [place] [address]
--- OUTSIDE RECORDS SUMMARY | 2024-09-05 14:22 | External Medical Summary | Summary of Care ---
Author Name Unknown Organization [facility] Address [address] [place] [facility] [place] [address] Phone [phone] Care Team Providers Care Medical Technologist Microbiology Name Role Phone Malinda Owens Primary Care Provider [phone] Reason for Visit * Reason Comments Chemotherapy Day 1, cycle 5 doxor ubicin, keytruda, cytoxan Procedure Labs from port * Episode Based Medications (Routine) - Authorized Specialty Diagnoses / Procedures Referred By Bennie t Referred To Contact Diagnoses Malignant neoplasm of upper-outer quadrant of left breast in female, estrogen receptor negative (HCC) Encounter for antineoplastic chemotherapy Encounter for prevention of neutropenia due to chemotherapy Procedures MN DOXORUBIC HCL 10 MG VL CHEMO MN CARBOPLATIN INJECTION MN FOSAPREPITANT INJECTION MN INJ PEMBROLIZUMAB MN INJECTION, FULPHILA MN PACLITAXEL INJECTION MN INJ CYCLOPHOSPHAMD AUROMEDIC MN PALONOSETRON HCL Em Ng MD Hematology/Oncology Treatment, [address] [address] Phone: tel: fax: Referral ID Status Reason Start Date Expiration Date V isits Requested Visits Authorized [id number] Authorized 04/30/2024 06/17/2099 [id number] Encounter Details Date Type Department Care Team (Latest Contact Info) Description 08/28/2024 11:15 AM EDT Hem/Onc Treatment Hematology/Oncolog y Treatment, [address] [place] [address] [place] Chair [address] Hem On[address] [place] [address] Encounter for antineoplastic chemotherapy*; Malignant neoplasm of upper-outer quadrant of left breast in female, estrogen receptor negative (HCC); Encounter for prevention of neutropenia due to chemotherapy Allergies No known active allergiesdocumented as of this encounter (statuses as of 08/28/2024) Medications 19 29-1 MG Oral Tablet Chewable [...] before bedtime. 30 Tablet 07/07/19 25 Active dexAMETHasone 4 MG Oral Tablet (Decadron)Indicati ons:Encounter for antineoplastic chemotherapy,Jimmieforest christie neoplasm of upper-outer quadrant of left breast in female, estrogen receptor negative (HCC) Take two tablets the night before and morning of each chemotherapy treatment 40 Tablet 05/22/20 24 025 Discontin ued(Medic ation List Clean Up) documented as of this encounter (statuses as of 08/28/2024) Active Problems Problem Noted Date Diagnosed Date [...] complete. Enrolled in Current Health. Plans to case picker meter from pharmacy today. Instructions provided [...] and class I obesity. Per review of TAIL [employer]PER documentation of 09/25/23, blood glucose values have [...] Recommend nutrition consult with RDN (Registered Dietitian Sap Basis Architect). Lifestyle changes are also indicated including optimizing [...] and folate levels and referral to a salesperson flying squad. If hemoglobin levels are below 8 g/dl, we recommend Maternal Medicine ultrasound for growth every 4 weeks after 24 weeks. Consider a blood transfusion if hemoglobin levels fall below 6 g/dL. ([employer] [facility] Bulletin Number 95, December,). Consider Venofer [...] as of this encounter (statuses as of 08/28/2024) Resolved Problems Problem Noted Date Diagnosed Date Resolved Date Abnormal glucose tolerance i n mother complicating 04/19/2023 08/31/2023 Overview (04/19/2023): Failed early glucola. 3hr GTT ordered documented as of this encounter (statuses as of 08/28/2024) Immunizations Name Administration Dates Next Due DTP [...] money to get more. 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 Patient tolerated well. No complaints. Port needle flushed with 10 ml NSS, blood return noted, and port locked with additional 10 ml NSS. Lopez needle removed, intact, gauze dressing applied. Goals: Patient will remain free from injury. Possible barriers to meeting goals: ambulating with IV pole, dizziness Stability of the patient: Moderately stable - low risk of patient condition declining or worsening Summary regarding today's goals: Met: Patient remained free from harm/injury during treatment. Patient left facility in stable condition. * Marilyn Burnett RN - 08/28/2024 1:44 PM EDT Chair 1. Patient here for labs from port and treatment. Patient reports still feeling dizzy, lightheaded, decreased appetite. VAD accessed without difficulty, + blood return, waste tube drawn, labs drawn without difficulty. flushed with 10 ml NSS and dressing applied. Reviewed labs with Dr. Maravilla, ANC 1.58 and relayed patient's symptoms. Ok to treat. Patient agreeable to treatment. Encouraged patient to call if she has increased nausea and feels she needs fluids or a provider appointment following treatment. Patient verbalized understanding. Chemotherapy/Immunotherapy agents: CYTOXAN, DOXORUBICIN, and KEYTRUDA Consent for chemotherapy drug treatment complete, dated, and signed? yes, date - 04/24/24 Treatment lab parameters met? Yes Has treatment weight changed > than 10%? No Treatment preauthorized? Yes VITALS Filed Vitals: 08/28/24 1146 BP: 108/72 Pulse: 102 Resp: 16 Temp: 36.8 C (98.2 F) TempSrc: Tympanic SpO2: 95% Weight: 88.2 kg (194 lb 6.4 oz) BP Readings from Last 2 Encounters: 08/28/24 108/72 08/21/24 90/58 Pulse Readings from Last 2 Encounters: 08/28/24 102 08/21/24 108 Resp Readings from Last 2 Encounters: 08/28/24 16 08/21/24 18 SpO2 Readings from Last 2 Encounters: 08/28/24 95% 08/21/24 95% Temp Readings from Last 2 Encounters: 08/28/24 36.8 C (98.2 F) (Tympanic) 08/21/24 35.9 C (96.6 F) (Tympanic) Urine protein: N/A Patient education [...] using the heat function. PRE-TREATMENT ASSESSMENT: NEURO: dizziness: continued CV/RESP: none GI/: decreased appetite: continued OTHER: denies any additional symptoms PAIN: 0 Safety and Risk for Injury Patient will remain free from injury. Ensure appropriate safety devices are available. Provide and maintain safe environment. documented in this encounter Miscellaneous Notes * Result Encounter Note - Mandeep Luna MD - 08/28/2024 1:41 PM EDT You following this patient documented in this encounter Plan of Treatment Upcoming Encounters Date Type Department Care Team (Late st Contact Info) Description 08/29/2024 3:00 PM EDT Hem/Onc Treatment Hematology/Oncology Treatment, [place] [address] [facility] [place] [phone] [place], Chair [address] Hem [address] [place] [address] 09/18/2024 11:00 AM EDT Nurse Only Hematology/Oncology Treatment, [address], [place] [phone] [place], Chair [address] Hem On[address] [place], [place] [address] 09/18/2024 12:00 PM EDT Office Visit Hematology/Oncology [address], [place] [phone] Gabby Zavala CRNP [address] [place] [address] 09/18/2024 12:30 PM EDT Hem/Onc Treatment Hematology/Oncology Treatment, [address], [place] [phone] [place], Chair 11 Hem On[address] [place] [address] Health Maintenance Due Date Last Done Comments [...] this encounter Medical Devices Implanted Type Area Physician In Private Practice Device Identifier Shelf Expiration Date Model / Serial / Lot Stent Angulo 4fr 11cm - [id number] Implanted:Qty : 1 on 02/08/2024 by Jeffrey Kerr MD at OR [facility] [employer] [id number] 08/16/2028 [id number] / / [id number] Port Implant W8f Poly Cath - [id number] Implanted:Qty : 1 on 05/02/2024 by Ima Curry MD at OR [facility] Right: Chest CR BARD : PERIPHERAL VASCULAR [id number] 05/17/2025 [id number] / / [id number] documented as of this encounter Procedures Procedure Name Priority Date/Time Associated Diagnosis Comments DIFFERENTIAL, AUTOMATED STAT 08/28/2024 11:47 AM EDT Malignant neoplasm of upper-outer quadrant of left breast in female, estrogen receptor negative (HCC) TSH WITH FREE T4 IF INDICATED STAT 08/28/2024 11:47 AM EDT Malignant neoplasm of upper-outer quadrant of left breast in female, estrogen receptor negative (HCC) COMPREHENSIVE METABOLIC PANEL STAT 08/28/2024 11:47 AM EDT Malignant neoplasm of upper-outer quadrant of left breast in female, estrogen receptor negative (HCC) CBC STAT 08/28/2024 11:47 AM EDT Malignant neoplasm of upper-outer quadrant of left breast in female, estrogen receptor negative (HCC) CBC STAT 08/28/2024 11:47 AM EDT Malignant neoplasm of upper-outer quadrant of left breast in female, estrogen receptor negative (HCC) HCG QUALITATIVE, URINE STAT 11:47 AM EDT Malignant neoplasm of upper-outer quadrant of left breast in female, estrogen receptor negative (HCC) documented in this encounter Results * (ABNORMAL) DIFFERENTIAL, AUTOMATED (08/28/2024 11:47 AM EDT) WBC 5.63 4.00 - 10.80 K/uL 08/28/2024 12:18 PM EDT [facility] 56-02 Neutrophils % 28.0(L) 40.0 - 75.0 % 08/28/2024 12:18 PM EDT [facility] 56-02 Lymphocytes % 54.9(H) 18.0 - 42.0 % 08/28/2024 12:18 PM EDT [facility] 56-02 Monocytes % 13.5(H) 1.0 - 11.0 % 08/28/2024 12:18 PM EDT [facility] 56-02 Eosinophils % 3.4 0.0 - 6.0 % 08/28/2024 12:18 PM EDT [facility] 56-02 Basophils % 0.2 0.0 - 2.0 % 08/28/2024 12:18 PM EDT [facility] 56-02 Absolute Neutrophils 1.58(L) 1.80 - 7.70 K/uL 08/28/2024 12:18 PM EDT [facility] 56-02 Absolute Lymphocytes 3.09 1.00 - 4.80 K/ul 08/28/2024 12:18 PM EDT [facility] 56-02 Absolute Monocytes 0.76 0.00 - 1.10 K/uL 08/28/2024 12:18 PM EDT [facility] 56-02 Absolute Eosinophils 0.19 0.00 - 0.70 K/uL 08/28/2024 12:18 PM EDT [facility] 56-02 Absolute Basophils 0.01 0.00 - 0.20 K/uL 08/28/2024 12:18 PM EDT [facility] 56-02 Blood Venous blood specimen / Unknown Venipuncture / Unknown 08/28/2024 11:47 AM EDT 08/28/2024 12:14 PM EDT Kanu Maravilla MD LAB BLOOD ORDERABLES Final Res ult [facility] 56- [address] [place] [address] * (ABNORMAL) CBC (08/28/2024 11:47 AM EDT) WBC 5.63 4.00 - 10.80 K/uL 08/28/2024 12:18 PM EDT [address] RBC 3.21 3.85 - 5.15 M/uL 08/28/2024 12:18 PM EDT [address] HGB 10.9(L) 12.0 - 15.3 g/dL 08/28/2024 12:18 PM EDT [address] HCT 32.5(L) 36.0 - 45.2 % 08/28/2024 12:18 PM EDT [address] MCV 101.2 81.5 - 97.5 fL 08/28/2024 12:18 PM EDT [address] MCH 34.0 27.0 - 34.0 pg 08/28/2024 12:18 PM EDT [facility] 56 MCHC 33.5 32.0 - 36.0 g/dL 08/28/2024 12:18 PM EDT [facility] 56 RDW 12.1 11.5 - 15.5 % 08/28/2024 12:18 PM EDT [facility] 56 PLT 175 140 - 400 K/uL 08/28/2024 12:18 PM EDT [facility] 56 MPV 10.0 6.6 - 11.1 fL 08/28/2024 12:18 PM EDT [facility] 56 Blood Venous blood specimen / Unknown Venipuncture / Unknown 08/28/2024 11:47 AM EDT 08/28/2024 12:14 PM EDT Kanu Maravilla MD LAB BLOOD ORDERABLES Final Res ult Performing Organization Address City/[facility]/ZIP Co de Phone Number [facility] 56 [address] [place] [address] * HCG QUALITATIVE, URINE (08/28/2024 11:47 AM EDT) HCG Qualitative, Urine Negative Negative 08/28/2024 12:27 PM EDT [facility] 56 Urine Urine specimen obtained by clean catch procedure / Unknown Non-blood Collection / Unknown 08/28/2024 11:47 AM EDT 08/28/2024 12:15 PM EDT Kanu Maycol Maravilla MD LAB URINE ORDERABLES Final Res ult Performing Organization Address [facility]/[place] Co de Phone Number [facility] 56 [address] [place] [address] * (ABNORMAL) COMPREHENSIVE METABOLIC PANEL (08/28/2024 11:47 AM EDT) Pathologist [facility] BUN 12 6 - 20 mg/dL 08/28/2024 12:32 PM EDT [address] CREATININE 0.8 0.5 - 1.0 mg/dL 08/28/2024 12:32 PM EDT [address] EGFR >90 >=60 mL/min 08/28/2024 12:32 PM EDT [facility] 56 Comment:eGFR is calculated b ased on the CKD-EPI 2020 equation. SODIUM 141 135 - 146 mmol/L 08/28/2024 12:32 PM EDT [facility] 56- POTASSIUM 3.9 3.5 - 5.1 mmol/L 08/28/2024 12:32 PM EDT [facility] 56 CHLORIDE 109(H) 98 - 107 mmol/L 08/28/2024 12:32 PM EDT [facility] 56 CO2 24 22 - 32 mmol/L 08/28/2024 12:32 PM EDT [facility] 56 ANION GAP 8 7 - 15 mmol/L 08/28/2024 12:32 PM EDT [facility] 56 GLUCOSE 66(L) 70 - 120 mg/dL 08/28/2024 12:32 PM EDT [facility] 5602 Albumin 4.1 3.8 - 5.0 g/dL 08/28/2024 12:32 PM EDT [facility] 5602 AST 32 10 - 35 U/L 08/28/2024 12:32 PM EDT [facility] 56 Alkaline Phosphatase 52 35 - 130 U/L 08/28/2024 12:32 PM EDT [facility] 5602 Bilirubin, Total 0.5 <=1.2 mg/dL 08/28/2024 12:32 PM EDT [facility] 5602 CALCIUM 9.5 8.4 - 10.2 mg/dL 08/28/2024 12:32 PM EDT [facility] 5602 Protein 6.4 6.0 - 8.3 g/dL 08/28/2024 12:32 PM EDT [facility] 56 ALT 33 10 - 35 U/L 08/28/2024 12:32 PM EDT [facility] Blood Venous blood specimen / Unknown Venipuncture / Unknown 08/28/2024 11:47 AM EDT 08/28/2024 12:06 PM EDT us Kanu Maravilla MD LAB BLOOD ORDERABLES Final Res ult [facility] 56-[address] [place] [address] * TSH WITH FREE T4 IF INDICATED (08/28/2024 11:47 AM EDT) TSH 1.61 0.27 - 4.20 uIU/mL 08/28/2024 8:53 PM EDT [facility] Blood Venous blood specimen / Unknown Venipuncture / Unknown 08/28/2024 11:47 AM EDT 08/28/2024 12:06 PM EDT us Mandeep Luna MD LAB BLOOD ORDERABLES Fin al Result [facility] [address] [place] [address] documented in this encounter Visit Diagnoses Diagnosis [...] of , antepartum, single or unspecified fetus Encounter for antineoplastic chemotherapy- Primary Malignant neoplasm of upper-outer quadrant of left breast in female, estrogen receptor negative (HCC) Encounter for prevention of neutropenia due to chemotherapy documented in this encounter Administered Medications Inactive Administered Medications - up to 3 most recent administrations Medication Order MAR Action Action Date Dose Rate Site cycloPHOSphamide (Cytoxan) 1,240 mg in NSS 500 mL infusion 1,240 mg (rounded from 1,236 mg = 600 mg/m2 2.06 m2 Treatment Plan BSA from Recorded weight), IV Piggyback, ONCE, On Bibi 08/28/24 at 1345, For 1 dose, Cyclophosphamide doses over 1g should be in 500 mL.May extend infusion to 1 hour if not tolerated.Indications:Malig nant neoplasm of upper-outer quadrant of left breast in female, estrogen receptor negative (HCC),Encounter for antineoplastic chemotherapy,Encounter for prevention of neutropenia due to chemotherapy Start Infusion 08/28/2024 2:25 PM EDT 1,240 mg 1032.4 mL/hr DOXOrubicin (Adriamycin) inj 124 mg 124 mg (rounded from 123.6 mg = 60 mg/m2 2.06 m2 Treatment Plan BSA from Recorded weight), IV Push, ONCE, On Bibi 08/28/24 at 1330, For 1 dose, Dispensed and administered in a syringe.Indications:Maligna nt neoplasm of upper-outer quadrant of left breast in female, estrogen receptor negative (HCC),Encounter for antineoplastic chemotherapy,Encounter for prevention of neutropenia due to chemotherapy Given 08/28/2024 2:15 PM EDT 62 mg Subsq SYR 08/28/2024 2:11 PM EDT 62 mg Fosaprepitant Dimeglumine (Emend) 150 mg, ondansetron (Zofran) 16 mg, dexamethasone sodium phosphate 12 mg in NSS 250 mL Infusion 150 mg, IV Piggyback, ONCE, 1 dose, On Bibi 08/28/24 at 1345, Administer over 30 Minutes, Infuse over 30 minutes. Give 30 minutes prior to chemotherapy.Indications:Nancy gnant neoplasm of upper-outer quadrant of left breast in female, estrogen receptor negative (HCC),Encounter for antineoplastic chemotherapy,Encounter for prevention of neutropenia due to chemotherapy Start Infusion 08/28/2024 12:52 PM EDT 150 mg 538.4 mL/hr NSS infusion FOR HYDRATION Intravenous, at 500 mL/hr Administer over 2 Hours, ONCE, 1 dose, On Bibi 08/28/24 at 1315Indications:Malignant neoplasm of upper-outer quadrant of left breast in female, estrogen receptor negative (HCC),Encounter for antineoplastic chemotherapy,Encounter for prevention of neutropenia due to chemotherapy Start Infusion 08/28/2024 12:51 PM EDT 1,000 mL 500 mL/hr NSS infusion 500 mL, Intravenous, at 50 mL/hr, ONCE PRN, 1 dose, Starting on Bibi 08/28/24 at 1345, Until Bibi 08/28/24 at 1503, Other, maintain lineIndications:Malignant neoplasm of upper-outer quadrant of left breast in female, estrogen receptor negative (HCC),Encounter for antineoplastic chemotherapy,Encounter for prevention of neutropenia due to chemotherapy Start Infusion 08/28/2024 12:47 PM EDT 500 mL 50 mL/hr Pembrolizumab (Keytruda) 200 mg in NSS 100 mL infusion 200 mg, IV Piggyback, ONCE, 1 dose, On Bibi 08/28/24 at 1415, Administer over 30 Minutes, Infuse through 0.2 micron filter.Indications:Malignant neoplasm of upper-outer quadrant of left breast in female, estrogen receptor negative (HCC),Encounter for antineoplastic chemotherapy,Encounter for prevention of neutropenia due to chemotherapy Start Infusion 08/28/2024 1:35 PM EDT 200 mg 226 mL/hr sodium chloride 0.9 % flush/inj 20 mL 20 mL, IV Push, PRN IV Flush and Lock, Starting on Bibi 08/28/24 at 1240, Until Bibi 08/28/24 at 1939, Do not flush if lock, PICC, or [...] prevention of neutropenia due to chemotherapy Given 08/28/2024 3:11 PM EDT 20 mL documented in this encounter Care Teams Medical Technologist Microbiology Relationship Specialty Start Date End Date Malinda Owens CRNP [address] [facility] [place] [address] PCP - General Nurse Practitioner 09/20/23 documented as of this encounter
--- OUTSIDE RECORDS SUMMARY | 2024-09-05 14:22 | External Medical Summary ---
Author Name Unknown Address Unknown Organization K01:[facility] [address] [place] [address] [place] [address] Laboratory Report Ordering Provider Test Date Status RADHA CUEVAS 08/28/2024 11:47:28 Final Observation Date Value Abnormality Reference (Units ) Status Iron 08/28/2024 11:47:28 92 33-151 (ug/dL) Final Iron-binding capacity 08/28/2024 11:47:28 232 Below low normal 250-425 (ug/dL) Final Transferrin Sat % 08/28/2024 11:47:28 40 15-55 (%) Final Performing Location [facility] [place] [address] [place] [address]
--- OUTSIDE RECORDS SUMMARY | 2024-09-05 14:22 | External Medical Summary ---
Author Name Unknown Address Unknown Organization K09:[facility] [place] 56-02 - [address] [place] [address] Laboratory Report Ordering Provider Test Date Status JASMINE JANSEN 08/28/2024 11:47:28 Final Observation Date Value Abnormality Reference (Units ) Status BUN 08/28/2024 11:47:28 12 6-20 (mg/dL) Final Creatinine 08/28/2024 11:47:28 0.8 0.5-1.0 (mg/dL) Final Glomerular filtration rate/1.73 sq M.predicted [Volume Rate/Area] in Serum, Plasma or Blood by Creatinine-based formula (CKD-EPI) 08/28/2024 11:47:28 >90 >=60 (mL/min) Final eGFR is calculated based on the CKD-EPI 2020 equation. Sodium 08/28/2024 11:47:28 141 135-146 (m mol/L) Final Potassium 08/28/2024 11:47:28 3.9 3.5-5.1 (m mol/L) Final Cl 08/28/2024 11:47:28 109 Above high normal 98 -107 (mmol/L) Final CO2 08/28/2024 11:47:28 24 22-32 (mmo l/L) Final Anion gap 08/28/2024 11:47:28 8 7-15 (mmol /L) Final Glucose 08/28/2024 11:47:28 66 Below low normal 70- 120 (mg/dL) Final Albumin 08/28/2024 11:47:28 4.1 3.8-5.0 (g /dL) Final AST (Aspartate aminotransferase) 08/28/2024 11:47:28 32 10-35 (U/L) Fin al Alk Phos 08/28/2024 11:47:28 52 35-130 (U/ L) Final Bilirubin, Total 08/28/2024 11:47:28 0.5 <=1 .2 (mg/dL) Final Calcium 08/28/2024 11:47:28 9.5 8.4-10.2 ( mg/dL) Final Protein 08/28/2024 11:47:28 6.4 6.0-8.3 (g /dL) Final ALT (Alanine aminotransferase) 08/28/2024 11:47:28 33 10-35 (U/L) Clifton [email or web address] Performing Location [facility] [place] 07- 29 [address] [place] [address]
--- OUTSIDE RECORDS SUMMARY | 2024-09-05 14:22 | External Medical Summary ---
Author Name Unknown Address Unknown Organization K01:[facility] [place] - [address] [facility] [address] Laboratory Report Ordering Provider Test Date Status ELAINE JAVIERON 08/28/2024 11:47:28 Final Observation Date Value Abnormality Reference (Units ) Status TSH 08/28/2024 11:47:28 1.61 0.27-4.20 (uIU/mL) Final Performing Location [facility] [place] - [address] [facility] [address] [facility] [address]
--- OUTSIDE RECORDS SUMMARY | 2024-09-05 14:22 | External Medical Summary ---
Author Name Unknown Address Unknown Organization K01:[facility] - [address] [place] [address] Laboratory Report Ordering Provider Test Date Status RADHA CUEVAS 08/28/2024 11:47:28 Final Observation Date Value Abnormality Reference (Units ) Status Vitamin B12 08/28/2024 11:47:28 [phone] (pg/mL) Final Performing Location [facility] - [address] [place] [address]
--- OUTSIDE RECORDS SUMMARY | 2024-09-05 14:22 | External Medical Summary ---
Author Name Unknown Address Unknown Organization K09:LAB[facility]ATORY [place] [address] Laboratory Report Ordering Provider Test Date Status INDERJITFERRARO 08/28/2024 11:47:28 Final Observation Date Value Abnormality Reference (Units ) Status Screen, Urine 08/28/2024 11:47:28 Negative Negative Final Performing Location LABORATORY [place] [address]
--- OUTSIDE RECORDS SUMMARY | 2024-09-05 14:22 | External Medical Summary | Summary of Care ---
Author Name Unknown Organization [facility] Address [address] [facility] [place] [address] Phone [phone] Care Team Providers Care Forestry Faculty Member Name Role Phone Malinda Owens Primary Care Provider [phone] Reason for Visit * Reason Onset Date Comments Medication Refill 08/28/2024 Encounter Details Date Type Department Care Team (Late st Contact Info) Description 08/28/2024 Refill Hematology/Oncology [facility] [address] [place] [address] Gabby Zavala CRNP [address] [place] [address] Encounter for antineoplastic chemotherapy; Malignant neoplasm of upper-outer quadrant of left breast in female, estrogen receptor negative (HCC) Allergies No known active allergiesdocumented as of this encounter (statuses as of 08/29/2024) Medications 29-1 MG Oral Tablet Chewable Take [...] as of this encounter (statuses as of 08/29/2024) Active Problems Problem Noted Date Diagnosed Date [...] 09/21/23: MFM ADAPT consult complete. Enrolled in [employer]. Plans to pick up and delivery driver meter from pharmacy today. Instructions provided to [...] and class I obesity. Per review of OPTICAL DESIGN ENGINEER documentation of 09/25/23, blood glucose values have [...] Recommend nutrition consult with RDN (Registered Dietitian Heating Systems Installer). Lifestyle changes are also indicated including optimizing [...] and folate levels and referral to a shipping inspector. If hemoglobin levels are below 8 g/dl, we recommend Maternal Medicine ultrasound for growth every 4 weeks after 24 weeks. Consider a blood transfusion if hemoglobin levels fall below 6 g/dL. ([employer] and Personal Development Coach Practice Bulletin Number 95, December,). Consider Venofer [...] as of this encounter (statuses as of 08/29/2024) Resolved Problems Problem Noted Date Diagnosed Date Resolved Date Abnormal glucose tolerance i n mother complicating 04/19/2023 08/31/2023 Overview (04/19/2023): Failed early glucola. 3hr GTT ordered documented as of this encounter (statuses as of 08/29/2024) Immunizations Name Administration Dates Next Due DTP Vaccine 01/02/1997, 5,1994,05/19 DTaP Dipth/Tet/Acell Pertussis (Infanrix), Peds 01/18/2000,01/02/1997 HEP A - Hepatitis A (Adult > 18 yrs) 08/22/2019 HPV Vaccine, 4-Valent 11/13/2012,03/21/2012 Haemophilius B (HIB), unspecified 1994,,1994 Hepatitis A Vaccine 02/02/2010 Hepatitis A, Ped/Adol., 18 y ear and below, 2-Dose 11/13/2012,02/02/2010 Hepatitis B, 0-19 yrs 02/17/1995,1994,1007/1993 IPV - [...] money to get more. 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 file Not on file Not on file documented as of this encounter Miscellaneous Notes * Telephone Encounter - Laron Cano, TAMIKO - 08/28/2024 4:31 PM EDTRefused Prescriptions: Disp Refills dexAMETHasone 4 MG Oral Tablet (Decadron) 40 Tab*0 Sig: Take two tablets the night before and morning of each chemotherapy treatmentRefused By: Peña CANO for Refusal: Course of treatment complete documented in this encounter Plan of Treatment Upcoming Encounters Date Type Department Care Team (Late st Contact Info) Description 08/29/2024 3:00 PM EDT Hem/Onc Treatment Hematology/Oncology Treatment, [address] [place] [phone] [place], Chair 11 Hem Onc [place] [address] [place] [address] 09/18/2024 11:00 AM EDT Nurse Only Hematology/Oncology Treatment, [address] [place] [phone] [place], Chair 10 Hem Onc [place] [address] [place] [address] 09/18/2024 12:00 PM EDT Office Visit Hematology/Oncology [place] [address] [address] [place] [phone] Gabby Zavala CRNP [address] [facility] [place] [address] 09/18/2024 12:30 PM EDT Hem/Onc Treatment Hematology/Oncology Treatment, [place] [address] [place] [address] [place], Chair 11 Hem Onc [place] [address] [place] [address] Health Maintenance Due Date Last Done Comments [...] this encounter Medical Devices Implanted Type Area Weatherization Director Device Identifier Shelf Expiration Date Model / Serial / Lot Therese Angulo 4fr 11cm - [id number] Implanted:Qty : 1 on 02/08/2024 by Jeffrey Kerr MD at OR [facility] [employer] [facility] [id number] 08/16/2028 [id number] / / [id number] Port Implant W8f Poly Cath - [id number] Implanted:Qty : 1 on 05/02/2024 by Iam Curry MD at OR [facility] Right: Chest CR BARD : PERIPHERAL VASCULAR [id number] 05/17/2025 [id number] / / [id number] documented as of this encounter Visit Diagnoses [...] single or unspecified fetus Encounter for antineoplastic chemotherapy Malignant neoplasm of upper-outer quadrant of left breast in female, estrogen receptor negative (HCC) documented in this encounter Care Teams Forestry Faculty Member Relationship Specialty Start Date End Date Malinda Owens CRNP [address] [facility] [place] [address] PCP - General Nurse Practitioner 09/20/23 documented as of this encounter
--- OUTSIDE RECORDS SUMMARY | 2024-09-05 14:22 | External Medical Summary | Summary of Care ---
Author Name Unknown Organization [facility] Address [address] [place] [facility] [place] [place] [address] Phone [phone] Care Team Providers Care Senior Manufacturing Technician Name Role Phone Malinda Owens AD Primary Care Provider [phone] Encounter Details Date Type Department Care Team (Late st Contact Info) Description 08/28/2024 Abstract Hematology/Oncology [facility] [place] [address] [facility] [place] [phone] Kanu Maravilla MD [address] [facility] [place] [address] Allergies No known active allergiesdocumented as of [...] Enrolled in [employer]. Plans to pickling drum operator meter from pharmacy today. Instructions provided [...] and class I obesity. Per review of SUBACUTE NURSE documentation of 09/25/23, blood glucose values have [...] Recommend nutrition consult with RDN (Registered Dietitian Waste Machine Operator). Lifestyle changes are also indicated including optimizing [...] and folate levels and referral to a mortgage closing clerk. If hemoglobin levels are below 8 g/dl, we recommend Maternal Medicine ultrasound for growth every 4 weeks after 24 weeks. Consider a blood transfusion if hemoglobin levels fall below 6 g/dL. ([employer]ians and Plywood Factory Worker Practice Bulletin Number 95, December,). Consider [...] money to get more. 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 file Not on file Not on file documented as of this encounter Plan of Treatment Upcoming Encounters Date Type Department Care Team (Late st Contact Info) Description 08/29/2024 3:00 PM EDT Hem/Onc Treatment Hematology/[address], [address] [phone] [place], Chair 11 Hem Onc [address] [place] [address] 09/18/2024 11:00 AM EDT Nurse Only Hematology/Oncology [address] [phone] [place], Chair 10 Hem Onc [address] [place] [address] 09/18/2024 12:00 PM EDT Office Visit Hematology/Oncology [facility] [address] [place] [phone] Gabby Zavala CRNP [address] [facility] [place] [id number] 09/18/2024 12:30 PM EDT Hem/Onc Treatment Hematology/Oncology Treatment, [address] [phone] [place], Chair 11 Hem Onc [address] [place] [address] Health Maintenance Due Date Last Done Comments [...] this encounter Medical Devices Implanted Type Area Tester/Lift Trucker Device Identifier Shelf Expiration Date Model / Serial / Lot Stent Angulo 4fr 11cm - [id number] Implanted:Qty : 1 on 02/08/2024 by Jeffrey Kerr MD at OR [facility] [employer] [id number] 08/16/2028 [id number] / / [id number] Port Implant W8f Poly Cath - [id number] Implanted:Qty : 1 on 05/02/2024 by Iam Curry MD at OR [facility] Right: Chest CR BARD : PERIPHERAL VASCULAR [id number] 05/17/2025 [id number] / / [id number] documented as of this encounter Care Teams Senior Manufacturing Technician Relationship Specialty Start Date End Date Malinda Owens CRNP [address] [place] [address] PCP - General Nurse Practitioner 09/20/23 documented as of this encounter
--- OUTSIDE RECORDS SUMMARY | 2024-09-05 14:22 | External Medical Summary | Summary of Care ---
Author Name Unknown Organization [facility] Address [address] [place] [address] Phone [phone] Care Team Providers Care Geographic Information System Surveyor Name Role Phone Malinda Owens Primary Care Provider [phone] Reason for Visit * Reason Comments IV Therapy Hydration Medication Administration Fulphila * Episode Based Medications (Routine) - Authorized Specialty Diagnoses / Procedures Referred By Contac t Referred To Contact Diagnoses Malignant neoplasm of upper-outer quadrant of left breast in female, estrogen receptor negative (HCC) Encounter for antineoplastic chemotherapy Encounter for prevention of neutropenia due to chemotherapy Procedures MA DOXORUBIC HCL 10 MG VL CHEMO MA CARBOPLATIN INJECTION MA FOSAPREPITANT INJECTION MA INJ PEMBROLIZUMAB MA INJECTION, FULPHILA MA PACLITAXEL INJECTION MA INJ CYCLOPHOSPHAMD AUROMEDIC MA PALONOSETRON HCL Em Ng MD Hematology/Oncology Treatment, [address] [address] Phone: tel: fax: Referral ID Status Reason Start Date Expiration Date V isits Requested Visits Authorized [id number] Authorized 04/30/2024 06/17/2099 [id number] Encounter Details Date Type Department Care Team (Latest Contact Info) Description 08/29/2024 3:00 PM EDT Hem/Onc Treatment Hematology/Oncolog y Treatment, [address] [phone] [place], Chair 11 Hem Onc [address] [address] Malignant neoplasm of upper-outer quadrant of left breast in female, estrogen receptor negative (HCC)*; Encounter for antineoplastic chemotherapy; Encounter for prevention of neutropenia due to chemotherapy; Iron deficiency anemia, unspecified iron deficiency anemia type; Macrocytic anemia Allergies No known active allergiesdocumented as of this encounter (statuses as of 08/30/2024) Medications 19 29-1 MG Oral Tablet Chewable [...] as of this encounter (statuses as of 08/30/2024) Active Problems Problem Noted Date Diagnosed Date [...] Enrolled in [employer]. Plans to picker packer meter from pharmacy today. Instructions provided [...] and class I obesity. Per review of OPHTHALMIC SURGICAL ASSISTANT documentation of 09/25/23, blood glucose values have [...] Recommend nutrition consult with RDN (Registered Dietitian Procurement Accountant). Lifestyle changes are also indicated including optimizing [...] and folate levels and referral to a filtration plant mechanic. If hemoglobin levels are below 8 g/dl, we recommend Maternal Medicine ultrasound for growth every 4 weeks after 24 weeks. Consider a blood transfusion if hemoglobin levels fall below 6 g/dL. ([employer] and Division Director Practice Bulletin Number 95, December,). Consider [...] as of this encounter (statuses as of 08/30/2024) Resolved Problems Problem Noted Date Diagnosed Date Resolved Date Abnormal glucose tolerance i n mother complicating 04/19/2023 08/31/2023 Overview (04/19/2023): Failed early glucola. 3hr GTT ordered documented as of this encounter (statuses as of 08/30/2024) Immunizations Name Administration Dates Next Due DTP [...] money to get more. 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 Port needle flushed with 10 ml NSS, blood return noted, and port locked with additional 10 ml NSS. Lopez needle removed, intact, gauze dressing applied. Goals: Patient will remain free from injury. Possible barriers to meeting goals: Dizziness upon standing Stability of the patient: Moderately stable - low risk of patient condition declining or worsening Summary regarding today's goals: Met: Patient remained free from harm. Pt discharged in stable condition. * Justine Cool RN - 08/29/2024 4:18 PM EDT Chair 1. Port accessed, blood return noted, slightly sluggish but was present. Patient overall is feeling fatigued but main complaint is restless legs and trouble sleeping. Patient's mother had also noticed she had some "pink/reddish" areas under both eyes, on chin, down neck and onto chest. Patient said she did not notice it today but her mom did. Patient states it is not burning or itching and is not bothersome. AD Elliott made aware and came out to assess patient - additional labs ordered since patient had been complaining of restless legs. Adding on Ferritin, iron screen, folic acid, B12, magnesium. TSH WNL before tx yesterday. BP is slightly low today - 91/62. Patient is still feeling lightheaded and "off" but no more than she has been lately. Will recheck during hydration. Fulphila injection given per order in L arm. Patient had not started taking Claritin, she thought she started it tomorrow - RN educated to starttaking it today when she goes home and take for 5 days. In the future, patient should take it starting day of tx. Pt communicated understanding. Patient is comfortable at this time and denies further needs. Patient instructed on use of heat and massage functions where applicable. Patient shown how to operate the heat function of the chair and to alert nursing staff if the chair feels too warm. Patient instructed on the risk of potential segovia while using the heat function. Safety and Risk for Injury Patient will remain free from injury. Ensure appropriate safety devices are available. Provide and maintain safe environment. documented in this encounter Plan of Treatment Upcoming Encounters Date Type Department Care Team (Late st Contact Info) Description 09/18/2024 11:00 AM EDT Nurse Only Hematology/Oncology Treatment, [address] [place] [phone] [place], Chair 10 Hem Onc [address] [place], [place] [address] 09/18/2024 12:00 PM EDT Office Visit Hematology/Oncology [address] [place], [place] [phone] Gabby Zavala CRNP [address] [place] [address] [place] [address] 09/18/2024 12:30 PM EDT Hem/Onc Treatment Hematology/Oncology Treatment, [address], [place] [phone] [place], Chair 6 Hem Onc [address] [place], [place] [address] Health Maintenance Due Date Last Done Comments [...] this encounter Medical Devices Implanted Type Area Tree Marker Device Identifier Shelf Expiration Date Model / Serial / Lot Stent Angulo 4fr 11cm - [id number] Implanted:Qty : 1 on 02/08/2024 by Jeffrey Kerr MD at OR [facility] TM [id number] 08/16/2028 [id number] / / [id number] Port Implant W8f Poly Cath - [id number] Implanted:Qty : 1 on 05/02/2024 by Iam Curry MD at OR [facility] Right: Chest CR BARD : PERIPHERAL VASCULAR [id number] 05/17/2025 [id number] / / [id number] documented as of this encounter Procedures Procedure Name Priority Date/Time Associated Diagnosis Comments FOLIC ACID Routine 08/28/2024 11:47 AM EDT Encounter for antineoplastic chemotherapy Iron deficiency anemia, unspecified iron deficiency anemia type Macrocytic anemia IRON SCREEN, INCLUDING TIBC Routine 08/28/2024 11:47 AM EDT Encounter for antineoplastic chemotherapy Iron deficiency anemia, unspecified iron deficiency anemia type Macrocytic anemia MAGNESIUM Routine 08/28/2024 11:47 AM EDT Encounter for antineoplastic chemotherapy Iron deficiency anemia, unspecified iron deficiency anemia type Macrocytic anemia FERRITIN Routine 08/28/2024 11:47 AM EDT Encounter for antineoplastic chemotherapy Iron deficiency anemia, unspecified iron deficiency anemia type Macrocytic anemia VITAMIN B12 Routine 08/28/2024 11:47 AM EDT Encounter for antineoplastic chemotherapy Iron deficiency anemia, unspecified iron deficiency anemia type Macrocytic anemia documented in this encounter Results * (ABNORMAL) IRON SCREEN, INCLUDING TIBC (08/28/2024 11:47 AM EDT) Iron 92 33 - 151 ug/dL 08/29/2024 4:52 PM EDT LAB[facility] Iron Binding Capacity 232(L) 250 - 425 ug/dL 08/29/2024 4:52 PM EDT [facility] Transferrin Saturation Percent 40 15 - 55 % 08/29/2024 4:52 PM EDT [facility] Blood Venous blood specimen / Unknown Venipuncture / Unknown 08/28/2024 11:47 AM EDT 08/28/2024 12:06 PM EDT Gabby DUONG LAB BLOOD ORDERABLES Fi nal Result Performing Organization Address [facility] Co de Phone Number LABORATORY [address] [address] * FERRITIN (08/28/2024 11:47 AM EDT) Ferritin 128 13 - 150 ng/mL 08/29/2024 5:46 PM EDT [facility] Blood Venous blood specimen / Unknown Venipuncture / Unknown 08/28/2024 11:47 AM EDT 08/28/2024 12:06 PM EDT Gabby DUONG LAB BLOOD ORDERABLES Fi nal Result Performing Organization Address [facility] Co de Phone Number LABORATORY [address] [address] * MAGNESIUM (08/28/2024 11:47 AM EDT) Magnesium 1.6 1.5 - 2.6 mg/dL 08/29/2024 4:52 PM EDT [facility] Blood Venous blood specimen / Unknown Venipuncture / Unknown 08/28/2024 11:47 AM EDT 08/28/2024 12:06 PM EDT Gabby DUONG LAB BLOOD ORDERABLES Fi nal Result LABORATORY [facility] [address] [place] [address] * FOLIC ACID (08/28/2024 11:47 AM EDT) Folic Acid >20.0 >4.5 ng/mL 08/29/2024 5:46 PM EDT [facility] Blood Venous blood specimen / Unknown Venipuncture / Unknown 08/28/2024 11:47 AM EDT 08/28/2024 12:06 PM EDT Gabby DUONG LAB BLOOD ORDERABLES Fi nal Result Performing Organization Address City/[facility]/ZIP Co de Phone Number LABORATORY [facility] [address] [place] [address] * VITAMIN B12 (08/28/2024 11:47 AM EDT) Vitamin B12 435 232 - 1,245 pg/mL 08/29/2024 5:46 PM EDT LABORATORY [facility] Blood Venous blood specimen / Unknown Venipuncture / Unknown 08/28/2024 11:47 AM EDT 08/28/2024 12:06 PM EDT Gabby DUONG LAB BLOOD ORDERABLES Fi nal Result Performing Organization Address City/[facility]/ZIP Co de Phone Number LABORATORY [facility] [address] [place] [address] documented in this encounter Visit Diagnoses Diagnosis [...] for prevention of neutropenia due to chemotherapy Iron deficiency anemia, unspecified iron deficiency anemia type Macrocytic anemia Unspecified deficiency anemia documented in this encounter Administered Medications Inactive Administered Medications - up to 3 most recent administrations Medication Order MAR Action Action Date Dose Rate Site NSS infusion FOR HYDRATION Intravenous, at 500 mL/hr Administer over 2 Hours, ONCE, 1 dose, On Sun08/29/24 at 1615Indications:Maligna nt neoplasm of upper-outer quadrant of left breast in female, estrogen receptor negative (HCC),Encounter for antineoplastic chemotherapy,Encounter for prevention of neutropenia due to chemotherapy Start Infusion 08/29/2024 3:33 PM EDT 1,000 mL 500 mL/hr Pegfilgrastim-jmdb (Fulphila) inj 6 mg 6 mg, Subcutaneous, ONCE, On Sun08/29/24 at 1615, For 1 doseIndications:Maligna nt neoplasm of upper-outer quadrant of left breast in female, estrogen receptor negative (HCC),Encounter for antineoplastic chemotherapy,Encounter for prevention of neutropenia due to chemotherapy Given 08/29/2024 3:42 PM EDT 6 mg Arm Left Upper sodium chloride 0.9 % flush/inj 20 mL 20 mL, IV Push, PRN IV Flush and Lock, Starting on Sun08/29/24 at 1532, Until Sun08/29/24 at 2136, Do not flush if lock, PICC, or central line not in place; IV infusing or unable to flush. For midlines and central lines. For IV Flush and Lock, IVAD is flushed with a total of 20 mL Normal Saline, 10 mL of Normal Saline Flush with 10 mL of Normal Saline acting as IV LOCK.Indications:Malign ant neoplasm of upper-outer quadrant of left breast in female, estrogen receptor negative (HCC),Encounter for antineoplastic chemotherapy,Encounter for prevention of neutropenia due to chemotherapy Given 08/29/2024 5:22 PM EDT 20 mL documented in this encounter Care Teams Geographic Information System Surveyor Relationship Specialty Start Date End Date Malinda Owens CRNP [address] [place] [address] PCP - General Nurse Practitioner 09/20/23 documented as of this encounter
--- OUTSIDE RECORDS SUMMARY | 2024-09-05 14:22 | External Medical Summary | Summary of Care ---
Author Name Unknown Organization [facility] Address [address] [facility] [place] [address] Phone [phone] Care Team Providers Care Casino Cage Manager Name Role Phone Roman Malinda DUONG Primary Care Provider [phone] Reason for Visit * Reason Onset Date Comments Advice 08/28/2024 Encounter Details Date Type Department Care Team (Late st Contact Info) Description 08/28/2024 Telephone Hematology/Oncology [facility] [place] [address] [facility] [place] [address] Kanu Maravilla MD [address] [facility] [place] [address] Advice Allergies No known active allergiesdocumented as of [...] female, estrogen receptor negative (HCC),Encounter for antineoplastic chemotherapy,Yassine nter for prevention of neutropenia due to [...] Enrolled in Current Health. Plans to pickling solution maker meter from pharmacy today. Instructions provided [...] and class I obesity. Per review of PRESSURE WELDER documentation of 09/25/23, blood glucose values have [...] Recommend nutrition consult with RDN (Registered Dietitian Brake Coupler Dinkey). Lifestyle changes are also indicated including optimizing [...] and folate levels and referral to a tanbark laborer. If hemoglobin levels are below 8 g/dl, we recommend Maternal Medicine ultrasound for growth every 4 weeks after 24 weeks. Consider a blood transfusion if hemoglobin levels fall below 6 g/dL. ([employer] Loom Operator Practice Bulletin Number 95, December,). Consider [...] money to get more. 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 [place] [address] 09/18/2024 12:30 PM EDT Hem/Onc Treatment Hematology/Oncology Treatment, [address] [phone] [place], Chair 11 Hem Onc [address] [place] [address] Health Maintenance Due Date Last Done Comments [...] this encounter Medical Devices Implanted Type Area Hogshead Wrecker Device Identifier Shelf Expiration Date Model / Serial / Lot Stent Angulo 4fr 11cm - [id number] Implanted:Qty : 1 on 02/08/2024 by Jeffrey Kerr MD at OR [facility] [employer] [id number] 08/16/2028 [id number] / / [id number] Port Implant W8f Poly Cath - [id number] Implanted:Qty : 1 on 05/02/2024 by Iam Curry MD at OR [facility] Right: Chest CR BARD : PERIPHERAL VASCULAR [id number] 05/17/2025 [id number] / / [id number] documented as of this encounter Care Teams Casino Cage Manager Relationship Specialty Start Date End Date Malinda Owens CRNP [address] [place] [address] PCP - General Nurse Practitioner 09/20/23 documented as of this encounter
--- OUTSIDE RECORDS SUMMARY | 2024-09-05 14:22 | External Medical Summary ---
Author Name Unknown Address Unknown Organization K09:[facility] [place] [place] [address] Laboratory Report Ordering Provider Test Date Status JASMINE JANSEN 08/28/2024 11:47:28 Final Observation Date Value Abnormality Reference (Units ) Status SYNC LEUKOCYTES IN BLOOD BY AUTOMATED COUNT 08/28/2024 11:47:28 5.63 4.00-10.80 (K/uL) Final Segs 08/28/2024 11:47:28 28.0 Below low normal 40.0-75.0 (%) Final Lymphs % 08/28/2024 11:47:28 54.9 Above high normal 18.0-42.0 (%) Final Monos 08/28/2024 11:47:28 13.5 Above high normal 1.0-11.0 (%) Final Eosinophils 08/28/2024 11:47:28 3.4 0.0-6.0 (%) Final Basos 08/28/2024 11:47:28 0.2 0.0-2.0 (%) Final Absolute Segs 08/28/2024 11:47:28 1.58 Below low normal 1.80-7.70 (K/uL) Final Lymphs, absolute 08/28/2024 11:47:28 3.09 1.00-4.80 (K/ul) Final Monos, Abs 08/28/2024 11:47:28 0.76 0.00-1.10 (K/uL) Final Eos, Abs 08/28/2024 11:47:28 0.19 0.00-0.70 (K/uL) Final Basos, Abs 08/28/2024 11:47:28 0.01 0.00-0.20 (K/uL) Final Performing Location [facility] [place] [place] [address]
--- OUTSIDE RECORDS SUMMARY | 2024-09-05 14:22 | External Medical Summary ---
Author Name Unknown Address Unknown Organization K01:[facility] [address] [place] [address] Laboratory Report Ordering Provider Test Date Status RADHA CUEVAS 08/28/2024 11:47:28 Final Observation Date Value Abnormality Reference (Units ) Status Magnesium 08/28/2024 11:47:28 1.6 1.5-2.6 (m g/dL) Final Performing Location [facility] - [address] [place] [address]
--- OUTSIDE RECORDS SUMMARY | 2024-09-05 14:22 | External Medical Summary | Summary of Care ---
Author Name Unknown Organization [facility] Address [address] [place] [facility] [place] [address] Phone [phone] Care Team Providers Care Storage Specialist Name Role Phone Malinda Owens AD Primary Care Provider [phone] Encounter Details Date Type Department Care Team (Late st Contact Info) Description 08/28/2024 Orders Only Hematology/Oncology [facility] [place] [address] [facility] [place] [phone] Kanu Maravilla MD 200 [place] [address] Malignant neoplasm of upper-outer quadrant of left [...] Enrolled in Current Health. Plans to machine operator hop picker meter from pharmacy today. Instructions provided [...] and class I obesity. Per review of CONSULTANT NURSE documentation of 09/25/23, blood glucose values [...] Recommend nutrition consult with RDN (Registered Dietitian Tugboat Pilot). Lifestyle changes are also indicated including optimizing [...] and folate levels and referral to a commissary steward. If hemoglobin levels are below 8 g/dl, we recommend Maternal Medicine ultrasound for growth every 4 weeks after 24 weeks. Consider a blood transfusion if hemoglobin levels fall below 6 g/dL. ([employer] Counter Representative Practice Bulletin Number 95, December,). Consider Venofer [...] money to get more. 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 Lately in the last 2 weeks her blood pressure has remained on the lower side, I would like to give her IV hydration normal saline over 2 hours when she comes for prophylactic Pegfilgrastim tomorrow and with subsequent treatments.. documented in this encounter Plan of Treatment Upcoming Encounters Date Type Department Care Team (Late st Contact Info) Description 08/29/2024 3:00 PM EDT Hem/Onc Treatment Hematology/Oncology Treatment, [address] [phone] [place], Chair 11 Hem Onc [address] [place] [address] 09/18/2024 11:00 AM EDT Nurse Only Hematology/Oncology Treatment, [address] [place] [phone] [place], Chair 10 Hem Onc [place] [address] [place] [address] 09/18/2024 12:00 PM EDT Office Visit Hematology/Oncology [facility] [place] [address] [address] [place] [place], [place] [address] Gabby Zavala CRNP [address] [facility] [place] [address] 09/18/2024 12:30 PM EDT Hem/Onc Treatment [facility]ematology/Oncology Treatment, [place] [facility] [phone] [place], Chair 11 Hem Onc [place] 200 [facility], [place] [address] Health Maintenance Due Date Last Done Comments [...] this encounter Medical Devices Implanted Type Area Diamond Mounter Device Identifier Shelf Expiration Date Model / Serial / Lot Therese Angulo 4fr 11cm - [id number] Implanted:Qty : 1 on 02/08/2024 by Jeffrey Kerr MD at OR [facility] [employer] [id number] 08/16/2028 [id number] / / [id number] Port Implant W8f Poly Cath - [id number] Implanted:Qty : 1 on 05/02/2024 by Iam Curry MD at OR [facility] Right: Chest CR BARD : PERIPHERAL VASCULAR [id number] 05/17/2025 [id number] / / [id number] documented as of this encounter Visit Diagnoses [...] Dehydration documented in this encounter Care Teams Storage Specialist Relationship Specialty Start Date End Date Malinda Owens CRNP [address] [place] [address] PCP - General Nurse Practitioner 09/20/23 documented as of this encounter
--- OUTSIDE RECORDS SUMMARY | 2024-09-05 14:23 | External Medical Summary | Summary of Care ---
Author Name Unknown Organization [facility] Address [address] [place] [address] Phone [phone] Care Team Providers Care Glass Tinter Name Role Phone Malinda Owens Primary Care Provider [phone] Reason for Visit * Reason Comments Chemotherapy [...] PALONOSETRON HCL Em Ng MD Hematology/Oncology Treatment, [address] [address] Phone: tel: fax: Referral ID Status Reason Start Date Expiration Date V isits Requested Visits Authorized [id number] Authorized 04/30/2024 06/17/2099 [id number] Encounter Details Date Type Department Care Team (Latest Contact Info) Description 07/31/2024 8:45 AM EST Hem/Onc Treatment Hematology/Oncolog y Treatment, [address] [phone] [place] Chair 7 Hem Onc [address] [place] [address] Malignant neoplasm of upper-outer quadrant of left breast in female, estrogen receptor negative (HCC)*; Encounter for antineoplastic chemotherapy; Encounter for prevention of neutropenia due to chemotherapy Allergies No known active allergiesdocumented as of this encounter (statuses as of 08/26/2024) Medications 19 29-1 MG Oral Tablet Chewable [...] as of this encounter (statuses as of 08/26/2024) Active Problems Problem Noted Date Diagnosed Date [...] and class I obesity. Per review of BENDING ROLL HAND documentation of 09/25/23, blood glucose values have [...] Recommend nutrition consult with RDN (Registered Dietitian Mechanical Project Manager). Lifestyle changes are also indicated including [...] and folate levels and referral to a hr clerk. If hemoglobin levels are below 8 g/dl, we recommend Maternal Medicine ultrasound for growth every 4 weeks after 24 weeks. Consider a blood transfusion if hemoglobin levels fall below 6 g/dL. ([employer] Terrain Vehicle Racer Practice Bulletin Number 95, December,). Consider Venofer [...] as of this encounter (statuses as of 08/26/2024) Resolved Problems Problem Noted Date Diagnosed Date Resolved Date Abnormal glucose tolerance i n mother complicating 04/19/2023 08/31/2023 Overview (04/19/2023): Failed early glucola. 3hr GTT ordered documented as of this encounter (statuses as of 08/26/2024) Immunizations Name Administration Dates Next Due DTP [...] money to get more. 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 on file Not [...] 11:15 AM EDT Hem/Onc Treatment Hematology/Oncology Treatment, [place] [facility] [place] [phone] [place], Chair 10 Hem Onc [facility] 200 [facility] [place] [address] 09/11/2024 8:00 AM EDT Office Visit Hematology/Oncology [facility] [place] 200 [facility] [place] [phone] Gabby Zavala CRNP [address] [place] [address] Health Maintenance Due Date Last Done Comments [...] this encounter Medical Devices Implanted Type Area Commercial Representative Device Identifier Shelf Expiration Date Model / Serial / Lot Stent Angulo 4fr 11cm - [id number] Implanted:Qty : 1 on 02/08/2024 by Jeffrey Kerr MD at OR [facility] [employer] [id number] 08/16/2028 6546 / / [id number] Port Implant W8f Poly Cath - [id number] Implanted:Qty : 1 on 05/02/2024 by Iam Curry MD at OR [facility] Right: Chest CR BARD : PERIPHERAL VASCULAR [id number] 05/17/2025 [id number] / / [id number] documented as of this encounter Procedures Procedure [...] TECHNOLOGIST REVIEW (07/31/2024 8:44 AM EST) Pathologist [facility] nRs 07/31/2024 10:02 AM EST [facility] 56-02 Blood Venous blood specimen / Unknown Central Line / Unknown 07/31/2024 8:44 AM EST 07/31/2024 9:39 AM EST Kanu Maravilla MD LAB BLOOD ORDERABLES Final Res ult [facility] 56-[address] [place] [address] * (ABNORMAL) DIFFERENTIAL, AUTOMATED (07/31/2024 8:44 AM EST) WBC 2.59(L) 4.00 - 10.80 K/uL 07/31/2024 10:02 AM EST [facility] 56-02 Neutrophils % 71.4 40.0 - 75.0 % 07/31/2024 10:02 AM [facility] 56-02 Lymphocytes % 27.0 18.0 - 42.0 % 07/31/2024 10:02 AM [facility] 56-02 Monocytes % 1.2 1.0 - 11.0 % 07/31/2024 10:02 AM [facility] 56-02 Eosinophils % 0.0 0.0 - 6.0 % 07/31/2024 10:02 AM [facility] 56-02 Basophils % 0.4 0.0 - 2.0 % 07/31/2024 10:02 AM [facility] 56-02 Absolute Neutrophils 1.85 1.80 - 7.70 K/uL 07/31/2024 10:02 AM [facility] 56-02 Absolute Lymphocytes 0.70(L) 1.00 - 4.80 K/ul 07/31/2024 10:02 AM [facility] 56-02 Absolute Monocytes 0.03 0.00 - 1.10 K/uL 07/31/2024 10:02 AM [facility] 56-02 Absolute Eosinophils 0.00 0.00 - 0.70 K/uL 07/31/2024 10:02 AM [facility] 56-02 Absolute Basophils 0.01 0.00 - 0.20 K/uL 07/31/2024 10:02 AM [facility] 56-02 Blood Venous blood specimen / Unknown Central Line / Unknown 07/31/2024 8:44 AM EST 07/31/2024 9:39 AM EST us Kanu Maravilla MD LAB BLOOD ORDERABLES Final Res ult [facility] 56-[address] [place] [address] * (ABNORMAL) CBC (07/31/2024 8:44 AM EST) WBC 2.59(L) 4.00 - 10.80 K/uL 07/31/2024 10:02 AM [facility] 56-02 RBC 3.39 3.85 - 5.15 M/uL 07/31/2024 10:02 AM [facility] 56-02 HGB 11.4(L) 12.0 - 15.3 g/dL 07/31/2024 10:02 AM [facility] 56- HCT 34.6(L) 36.0 - 45.2 % 07/31/2024 10:02 AM [facility] 56- MCV 102.1 81.5 - 97.5 fL 07/31/2024 10:02 AM [facility] 56- MCH 33.6 27.0 - 34.0 pg 07/31/2024 10:02 AM [facility] 56- MCHC 32.9 32.0 - 36.0 g/dL 07/31/2024 10:02 AM [facility] 56- RDW 14.6 11.5 - 15.5 % 07/31/2024 10:02 AM [facility] 56- PLT 179 140 - 400 K/uL 07/31/2024 10:02 AM [facility] 56- MPV 10.2 6.6 - 11.1 fL 07/31/2024 10:02 AM [facility] 56 Blood Venous blood specimen / Unknown Central Line / Unknown 07/31/2024 8:44 AM EST 07/31/2024 9:39 AM EST us Kanu Maravilla MD LAB BLOOD ORDERABLES Final Res ult [facility] 56 [address] [place] [address] * HCG QUALITATIVE, URINE (07/31/2024 8:44 AM EST) HCG Qualitative, Urine Negative Negative 07/31/2024 9:57 AM [facility] 56- Urine Urine specimen obtained by clean catch procedure / Unknown Non-blood Collection / Unknown 07/31/2024 8:44 AM EST 07/31/2024 9:48 AM EST us Kanu Maravilla MD LAB URINE ORDERABLES Final Res ult [facility] 56- [address] [facility] [place] [address] * (ABNORMAL) COMPREHENSIVE METABOLIC PANEL (07/31/2024 8:44 AM EST) BUN 16 6 - 20 mg/dL 07/31/2024 10:02 AM [facility] 56- CREATININE 0.7 0.5 - 1.0 mg/dL 07/31/2024 10:02 AM [facility] 56- EGFR >90 >=60 mL/min 07/31/2024 10:02 AM [facility] 56- Comment:eGFR is calculated b ased on the CKD-EPI 2020 equation. SODIUM 140 135 - 146 mmol/L 07/31/2024 10:02 AM [facility] 56- POTASSIUM 4.3 3.5 - 5.1 mmol/L 07/31/2024 10:02 AM [facility] 56- CHLORIDE 104 98 - 107 mmol/L 07/31/2024 10:02 AM [facility] 56 CO2 20(L) 22 - 32 mmol/L 07/31/2024 10:02 AM [facility] 56- ANION GAP 16(H) 7 - 15 mmol/L 07/31/2024 10:02 AM [facility] 56 GLUCOSE 223(H) 70 - 120 mg/dL 07/31/2024 10:02 AM [facility] 56 Albumin 4.5 3.8 - 5.0 g/dL 07/31/2024 10:02 AM [facility] 56- AST 16 10 - 35 U/L 07/31/2024 10:02 AM [facility] 56- Alkaline Phosphatase 80 35 - 130 U/L 07/31/2024 10:02 AM [facility] 56- Bilirubin, Total 0.4 <=1.2 mg/dL 07/31/2024 10:02 AM [facility] 56- CALCIUM 9.6 8.4 - 10.2 mg/dL 07/31/2024 10:02 AM [facility] 56- Protein 7.5 6.0 - 8.3 g/dL 07/31/2024 10:02 AM [facility] 56- ALT 20 10 - 35 U/L 07/31/2024 10:02 AM EST [facility] 56-02 Blood Venous blood specimen / Unknown Central Line / Unknown 07/31/2024 8:44 AM EST 07/31/2024 9:38 AM EST us Kanu Maravilla MD LAB BLOOD ORDERABLES Final Res ult [facility] 56- [address] [place] [address] documented in this encounter Visit Diagnoses Diagnosis [...] at 1045, For 1 dose, Restricted per [facility] antiemetic guidelinesIndications:Jess christie neoplasm [...] mL documented in this encounter Care Teams Glass Tinter Relationship Specialty Start Date End Date Malinda Owens CRNP [address] [facility] [place] [address] PCP - General Nurse Practitioner 09/20/23 documented as of this encounter
--- OUTSIDE RECORDS SUMMARY | 2024-09-05 14:23 | External Medical Summary | Summary of Care ---
Author Name Unknown Organization [facility] Address [address] [place] [address] Phone [phone] Care Team Providers Care Chaplain Name Role Phone Malinda Owens Primary Care Provider [phone] Reason for Visit * Reason Comments Chemotherapy C4 D15 Carbo Taxol * Episode Based Medications (Routine) - Authorized Specialty Diagnoses / Procedures Referred By Contac t Referred To Contact Diagnoses Malignant neoplasm of upper-outer quadrant of left breast in female, estrogen receptor negative (HCC) Encounter for antineoplastic chemotherapy Encounter for prevention of neutropenia due to chemotherapy Procedures [place] DOXORUBIC HCL 10 MG VL CHEMO [place] CARBOPLATIN INJECTION [place] FOSAPREPITANT INJECTION [place] INJ PEMBROLIZUMAB AZ INJECTION, FULPHILA AZ PACLITAXEL INJECTION AZ INJ CYCLOPHOSPHAMD AUROMEDIC AZ PALONOSETRON HCL Em Ng MD Hematology/Oncology Treatment, [address] [address] Phone: tel: fax: Referral ID Status Reason Start Date Expiration Date V isits Requested Visits Authorized [id number] Authorized 04/30/2024 06/17/2099 999 999 Encounter Details Date Type Department Care Team (Latest Contact Info) Description 07/31/2024 8:45 AM EST Hem/Onc Treatment Hematology/Oncolog y Treatment, [address] [address] [place] Chair 7 Hem On[address] [place] [address] Malignant neoplasm of upper-outer quadrant of [...] Enrolled in Current Health. Plans to picker / packer meter from pharmacy today. Instructions provided [...] and class I obesity. Per review of ASSET PROTECTION DETECTIVE documentation of 09/25/23, blood glucose values have [...] Recommend nutrition consult with RDN (Registered Dietitian Developer Analyst). Lifestyle changes are also indicated including optimizing [...] and folate levels and referral to a snailer. If hemoglobin levels are below 8 g/dl, we recommend Maternal Medicine ultrasound for growth every 4 weeks after 24 weeks. Consider a blood transfusion if hemoglobin levels fall below 6 g/dL. ([employer] Trans[employer] Manager Practice Bulletin Number 95, December,). Consider [...] money to get more. 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 Not [...] 11:15 AM EDT Hem/Onc Treatment Hematology/Oncology Treatment, [place] 200 [facility] [place] [id number] [place], Chair 10 Hem Onc [facility] 200 [facility] [place] [address] 09/11/2024 8:00 AM EDT Office Visit Hematology/Oncology [facility] [place] 200 [facility] [place] [phone] Gabby Zavala CRNP [address] [place] [address] Health Maintenance Due Date Last Done Comments [...] this encounter Medical Devices Implanted Type Area Options Advisor Device Identifier Shelf Expiration Date Model / Serial / Lot Stent Angulo 4fr 11cm - [id number] Implanted:Qty : 1 on 02/08/2024 by Jeffrey Kerr MD at OR [facility] [employer] [id number] 08/16/2028 [id number] / / [id number] Port Implant W8f Poly Cath - [id number] Implanted:Qty : 1 on 05/02/2024 by Iam Curry MD at OR [facility] Right: Chest CR BARD : PERIPHERAL VASCULAR [id number] 05/17/2025 [id number] / / [id number] documented as of this encounter Procedures Procedure [...] REVIEW (07/31/2024 8:44 AM EST) Pathologist [facility] nRs 07/31/2024 10:02 AM EST [facility] 56-02 Blood Venous blood specimen / Unknown Central Line / Unknown 07/31/2024 8:44 AM EST 07/31/2024 9:39 AM EST Kanu Maravilla MD LAB BLOOD ORDERABLES Final Res ult [facility] 56-[address] [place] [address] * (ABNORMAL) DIFFERENTIAL, AUTOMATED (07/31/2024 8:44 AM EST) WBC 2.59(L) 4.00 - 10.80 K/uL 07/31/2024 10:02 AM EST [facility] 56-02 Neutrophils % 71.4 40.0 - 75.0 % 07/31/2024 10:02 AM [facility] 56-02 Lymphocytes % 27.0 18.0 - 42.0 % 07/31/2024 10:02 AM [facility] 56-02 Monocytes % 1.2 1.0 - 11.0 % 07/31/2024 10:02 AM [facility] 56-02 Eosinophils % 0.0 0.0 - 6.0 % 07/31/2024 10:02 AM [facility] 56-02 Basophils % 0.4 0.0 - 2.0 % 07/31/2024 10:02 AM [facility] 56-02 Absolute Neutrophils 1.85 1.80 - 7.70 K/uL 07/31/2024 10:02 AM [facility] 56-02 Absolute Lymphocytes 0.70(L) 1.00 - 4.80 K/ul 07/31/2024 10:02 AM [facility] 56-02 Absolute Monocytes 0.03 0.00 - 1.10 K/uL 07/31/2024 10:02 AM [facility] 56-02 Absolute Eosinophils 0.00 0.00 - 0.70 K/uL 07/31/2024 10:02 AM [facility] 56-02 Absolute Basophils 0.01 0.00 - 0.20 K/uL 07/31/2024 10:02 AM [facility] 56-02 Blood Venous blood specimen / Unknown Central Line / Unknown 07/31/2024 8:44 AM EST 07/31/2024 9:39 AM EST us Kanu Maravilla MD LAB BLOOD ORDERABLES Final Res ult [facility] 56-[address] [place] [address] * (ABNORMAL) CBC (07/31/2024 8:44 AM EST) WBC 2.59(L) 4.00 - 10.80 K/uL 07/31/2024 10:02 AM [facility] 56-02 RBC 3.39 3.85 - 5.15 M/uL 07/31/2024 10:02 AM [facility] 56-02 HGB 11.4(L) 12.0 - 15.3 g/dL 07/31/2024 10:02 AM [facility] 56- HCT 34.6(L) 36.0 - 45.2 % 07/31/2024 10:02 AM [facility] 56- MCV 102.1 81.5 - 97.5 fL 07/31/2024 10:02 AM [facility] 56- MCH 33.6 27.0 - 34.0 pg 07/31/2024 10:02 AM [facility] 56- MCHC 32.9 32.0 - 36.0 g/dL 07/31/2024 10:02 AM [facility] 56- RDW 14.6 11.5 - 15.5 % 07/31/2024 10:02 AM [facility] 56- PLT 179 140 - 400 K/uL 07/31/2024 10:02 AM [facility] 56- MPV 10.2 6.6 - 11.1 fL 07/31/2024 10:02 AM [facility] 56 Blood Venous blood specimen / Unknown Central Line / Unknown 07/31/2024 8:44 AM EST 07/31/2024 9:39 AM EST us Kanu Maravilla MD LAB BLOOD ORDERABLES Final Res ult [facility] 56 [address] [place] [address] * HCG QUALITATIVE, URINE (07/31/2024 8:44 AM EST) HCG Qualitative, Urine Negative Negative 07/31/2024 9:57 AM [facility] 56- Urine Urine specimen obtained by clean catch procedure / Unknown Non-blood Collection / Unknown 07/31/2024 8:44 AM EST 07/31/2024 9:48 AM EST us Kanu Maravilla MD LAB URINE ORDERABLES Final Res ult [facility] 56- 200 [facility] [place] [address] * (ABNORMAL) COMPREHENSIVE METABOLIC PANEL (07/31/2024 8:44 AM EST) BUN 16 6 - 20 mg/dL 07/31/2024 10:02 AM [facility] 56- CREATININE 0.7 0.5 - 1.0 mg/dL 07/31/2024 10:02 AM [facility] 56- EGFR >90 >=60 mL/min 07/31/2024 10:02 AM [facility] 56- Comment:eGFR is calculated b ased on the CKD-EPI 2020 equation. SODIUM 140 135 - 146 mmol/L 07/31/2024 10:02 AM [facility] 56- POTASSIUM 4.3 3.5 - 5.1 mmol/L 07/31/2024 10:02 AM [facility] 56- CHLORIDE 104 98 - 107 mmol/L 07/31/2024 10:02 AM [facility] 56 CO2 20(L) 22 - 32 mmol/L 07/31/2024 10:02 AM [facility] 56- ANION GAP 16(H) 7 - 15 mmol/L 07/31/2024 10:02 AM [facility] 56 GLUCOSE 223(H) 70 - 120 mg/dL 07/31/2024 10:02 AM [facility] 56 Albumin 4.5 3.8 - 5.0 g/dL 07/31/2024 10:02 AM [facility] 56- AST 16 10 - 35 U/L 07/31/2024 10:02 AM [facility] 56- Alkaline Phosphatase 80 35 - 130 U/L 07/31/2024 10:02 AM [facility] 56- Bilirubin, Total 0.4 <=1.2 mg/dL 07/31/2024 10:02 AM [facility] 56- CALCIUM 9.6 8.4 - 10.2 mg/dL 07/31/2024 10:02 AM [facility] 56- Protein 7.5 6.0 - 8.3 g/dL 07/31/2024 10:02 AM [facility] 56- ALT 20 10 - 35 U/L 07/31/2024 10:02 AM EST [facility] 56-02 Blood Venous blood specimen / Unknown Central Line / Unknown 07/31/2024 8:44 AM EST 07/31/2024 9:38 AM EST us Kanu Maravilla MD LAB BLOOD ORDERABLES Final Res ult [facility] 56- [address] [place] [address] documented in this encounter Visit Diagnoses Diagnosis [...] at 1045, For 1 dose, Restricted per [facility] antiemetic guidelinesIndications:Jess christie neoplasm of upper-outer [...] mL documented in this encounter Care Teams Chaplain Relationship Specialty Start Date End Date Malinda Owens CRNP [address] [facility] [place] [address] PCP - General Nurse Practitioner 09/20/23 documented as of this encounter
--- OUTSIDE RECORDS SUMMARY | 2024-09-05 14:23 | External Medical Summary | Summary of Care ---
Author Name Unknown Organization [facility] Address [address] [place] [address] Phone [phone] Care Team Providers Care Try On Baster Name Role Phone Malinda Owens Primary Care Provider [phone] Reason for Visit * Reason Comments Chemotherapy Taxol/Carbo * Episode Based Medications (Routine) - Authorized Specialty Diagnoses / Procedures Referred By Contac t Referred To Contact Diagnoses Malignant neoplasm of upper-outer quadrant of left breast in female, estrogen receptor negative (HCC) Encounter for antineoplastic chemotherapy Encounter for prevention of neutropenia due to chemotherapy Procedures DC DOXORUBIC HCL 10 MG VL CHEMO DC CARBOPLATIN INJECTION DC FOSAPREPITANT INJECTION DC INJ PEMBROLIZUMAB DC INJECTION, FULPHILA DC PACLITAXEL INJECTION DC INJ CYCLOPHOSPHAMD AUROMEDIC DC PALONOSETRON HCL Em Ng MD Hematology/Oncology Treatment, [address] [address] Phone: tel: fax: Referral ID Status Reason Start Date Expiration Date V isits Requested Visits Authorized [id number] Authorized 04/30/2024 06/17/2099 [id number] Encounter Details Date Type Department Care Team (Latest Contact Info) Description 07/24/2024 9:30 AM EST Hem/Onc Treatment Hematology/Oncolog y Treatment, [address] [address] [place], Chair 11 Hem Onc [address] [address] Malignant neoplasm of upper-outer quadrant of left [...] Oral Tablet (Decadron)Indicati ons:Encounter for antineoplastic chemotherapy,Jess simont neoplasm of upper-outer quadrant of left breast [...] complete. Enrolled in Current Health. Plans to berry picker machine operator meter from pharmacy today. [...] and class I obesity. Per review of LAMINATION SPINNER documentation of 09/25/23, blood glucose values have [...] Recommend nutrition consult with RDN (Registered Dietitian Laborer General). Lifestyle changes are also indicated including optimizing [...] and folate levels and referral to a business support professional. If hemoglobin levels are below 8 g/dl, we recommend Maternal Medicine ultrasound for growth every 4 weeks after 24 weeks. Consider a blood transfusion if hemoglobin levels fall below 6 g/dL. ([employer] and Ventilated Rib Fitter Practice Bulletin Number 95, December,). Consider Venofer [...] money to get more. 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 Lopez needle removed intact. * Ava Pope RN - 07/24/2024 3:34 PM EST Pt completed treatment without issues. VAD flushed with 10 ml NSS and Heparin 5 ml (100 units/ml). Lopez needle removed intact. Goals: Pt will remain free from injury. Possible barriers to meeting goals: ambulation with IV pole Stability of the patient: Moderately stable - low risk of patient condition declining or worsening Summary regarding today's goals: Met: . Pt remained free from injury during treatment today. Discharged in stable condition. * Ava Pope RN - 07/24/2024 10:47 AM EST Chair 7 Chemotherapy/Immunotherapy agents: CARBOPLATIN and TAXOL Consent for chemotherapy drug treatment complete, dated, and signed? yes, date - 04/24/24 Treatment lab parameters met? Yes Has treatment weight changed > than 10%? No Treatment preauthorized? Yes VITALS Filed Vitals: BP Readings from Last 2 Encounters: 07/24/24 100/71 07/17/24 112/74 Pulse Readings from Last 2 Encounters: 07/24/24 103 07/17/24 84 Resp Readings from Last 2 Encounters: 07/17/24 18 07/03/24 18 SpO2 Readings from Last 2 Encounters: 07/24/24 97% 07/17/24 96% Temp Readings from Last 2 Encounters: 07/24/24 36.7 C (98.1 F) (Tympanic) 07/17/24 36.8 C (98.2 F) Urine protein: N/A Patient education completed for treatment? Yes Blood transfusion consent signed and complete? NA Return appointment scheduled? Yes Patient had provider visit today? Yes - Ok to release order and treat per provider VAD accessed; NSS infuisng. Safety and Risk for Injury Patient will remain free from injury. Ensure appropriate safety devices are available. Provide and maintain safe environment. Functional Status: Functional status at today's visit: Restricted in physically strenuous activity but ambulatory and able to carry out work on a light orsedentary nature, e.g. light house work, office work The drug name, dose, infusion volume, rate [...] 11:15 AM EDT Hem/Onc Treatment Hematology/Oncology Treatment, [place] [address] [place] [phone] [place], Chair 10 Hem Onc [facility] 200 [facility] [place] [address] 09/11/2024 8:00 AM EDT Office Visit Hematology/Oncology [facility] [place] 200 [facility] [place] [address] Gabby Zavala CRNP 400 [place] [address] Health Maintenance Due Date Last Done Comments [...] this encounter Medical Devices Implanted Type Area Project Manager/Team Coach Device Identifier Shelf Expiration Date Model / Serial / Lot Stent Angulo 4fr 11cm - [id number] Implanted:Qty : 1 on 02/08/2024 by Jeffrey Kerr MD at OR [facility] [employer] [id number] 08/16/2028 6546 / / [id number] Port Implant W8f Poly Cath - [id number] Implanted:Qty : 1 on 05/02/2024 by Iam Curry MD at OR [facility] Right: Chest CR BARD : PERIPHERAL VASCULAR [id number] 05/17/2025 [id number] / / [id number] documented as of this encounter Visit Diagnoses [...] Action Date Dose Rate Site CARBOplatin (Paraplatin) 219 mg in D5W 250 mL infusion 219 mg (rounded from 219.15 mg, Target AUC = 1.5), IV Piggyback, at 510 mL/hr Administer over 30 Minutes, PROTECT FROM LIGHT, ONCE, 1 dose, On Bibi 07/24/24 at 1215Indications:Malignant neoplasm of upper-outer quadrant of left breast in female, estrogen receptor negative (HCC),Encounter for antineoplastic chemotherapy,Encounter for prevention of neutropenia due to chemotherapy Start Infusion 07/24/2024 11:19 AM EST 219 mg 510 mL/hr dexAMETHasone (Decadron) tab 12 mg 12 mg, Oral, ONCE, On Bibi 07/24/24 at 0945, For 1 doseIndications:Malignant neoplasm of upper-outer quadrant of left breast in female, estrogen receptor negative (HCC),Encounter for antineoplastic chemotherapy,Encounter for prevention of neutropenia due to chemotherapy Given 07/24/2024 9:36 AM EST 12 mg diphenhydrAMINE (Benadryl) inj 25 mg 25 mg, IV Push, ONCE, On Bibi 07/24/24 at 0945, For 1 doseIndications:Malignant neoplasm of upper-outer quadrant of left breast in female, estrogen receptor negative (HCC),Encounter for antineoplastic chemotherapy,Encounter for prevention of neutropenia due to chemotherapy Given 07/24/2024 9:34 AM EST 25 mg Famotidine (Pepcid) inj 20 mg 20 mg, IV Push, ONCE, On Bibi 07/24/24 at 0945, For 1 dose, Give IV push over 2 minutes.Indications:Malignan t neoplasm of upper-outer quadrant of left breast in female, estrogen receptor negative (HCC),Encounter for antineoplastic chemotherapy,Encounter for prevention of neutropenia due to chemotherapy Given 07/24/2024 9:37 AM EST 20 mg NSS infusion Intravenous, at 50 mL/hr, PRN, Starting on Bibi 07/24/24 at 1015, Until Bibi 07/24/24 at 1939, Maintenance lineIndications:Malignant neoplasm of upper-outer quadrant of left breast in female, estrogen receptor negative (HCC),Encounter for antineoplastic chemotherapy,Encounter for prevention of neutropenia due to chemotherapy Start Infusion 07/24/2024 9:11 AM EST 50 mL/hr PACLitaxel (Taxol) 165 mg in NSS 250 mL infusion 165 mg (rounded from 164.8 mg = 80 mg/m2 2.06 m2 Treatment Plan BSA from Recorded weight), IV Piggyback, ONCE, 1 dose, On Bibi 07/24/24 at 1115, Administer over 60 Minutes, Administer through 0.22 micron low protein binding filter!Indications:Malignant neoplasm of upper-outer quadrant of left breast in female, estrogen receptor negative (HCC),Encounter for antineoplastic chemotherapy,Encounter for prevention of neutropenia due to chemotherapy Start Infusion 07/24/2024 10:04 AM EST 165 mg 255 mL/hr Palonosetron (Aloxi) inj SOLN 0.25 mg 0.25 mg, IV Push, ONCE, On Bibi 07/24/24 at 0945, For 1 dose, Restricted per [facility] antiemetic guidelinesIndications:Malign ant neoplasm of upper-outer quadrant of left breast in female, estrogen receptor negative (HCC),Encounter for antineoplastic chemotherapy,Encounter for prevention of neutropenia due to chemotherapy Given 07/24/2024 9:36 AM EST 0.25 mg sodium chloride 0.9 % flush/inj 10 mL 10 mL, IV Push, PRN line flush, Starting on Bibi 07/24/24 at 0904, Until Bibi 07/24/24 at 1939, Do not flush if lock, PICC, or central line not in place; IV infusing or unable to flush. For midlines and central lines.Indications:Malignant neoplasm of upper-outer quadrant of left breast in female, estrogen receptor negative (HCC),Encounter for antineoplastic chemotherapy,Encounter for prevention of neutropenia due to chemotherapy Given 07/24/2024 9:35 AM EST 10 mL sodium chloride 0.9 % flush/inj 20 mL 20 mL, IV Push, PRN IV Flush and Lock, Starting on Bibi 07/24/24 at 0904, Until Bibi 07/24/24 at 1939, Do not flush if lock, [...] prevention of neutropenia due to chemotherapy Given 07/24/2024 11:58 AM EST 20 mL documented in this encounter Care Teams Try On Baster Relationship Specialty Start Date End Date Malinda Owens CRNP [address] [facility] [address] PCP - General Nurse Practitioner 09/20/23 documented as of this encounter
--- OUTSIDE RECORDS SUMMARY | 2024-09-05 14:23 | External Medical Summary | Summary of Care ---
Author Name Unknown Organization [facility] Address [address] [place] [address] Phone [phone] Care Team Providers Care Racing Board Marker Name Role Phone Malinda Owens Primary Care Provider [phone] Reason for Visit * Reason Comments Chemotherapy Taxol/Carbo * Episode Based Medications (Routine) - Authorized Specialty Diagnoses / Procedures Referred By Contac t Referred To Contact Diagnoses Malignant neoplasm of upper-outer quadrant of left breast in female, estrogen receptor negative (HCC) Encounter for antineoplastic chemotherapy Encounter for prevention of neutropenia due to chemotherapy Procedures HI DOXORUBIC HCL 10 MG VL CHEMO HI CARBOPLATIN INJECTION HI FOSAPREPITANT INJECTION HI INJ PEMBROLIZUMAB HI INJECTION, FULPHILA HI PACLITAXEL INJECTION HI INJ CYCLOPHOSPHAMD AUROMEDIC HI PALONOSETRON HCL Em Ng MD Hematology/Oncology Treatment, [address] [address] Phone: tel: fax: Referral ID Status Reason Start Date Expiration Date V isits Requested Visits Authorized [id number] Authorized 04/30/2024 06/17/2099 999 [id number] Encounter Details Date Type Department Care Team (Latest Contact Info) Description 07/24/2024 9:30 AM EST Hem/Onc Treatment Hematology/Oncolog y Treatment, [address] [address] [place], Chair 11 Hem Onc [address] [address] Malignant neoplasm of upper-outer quadrant of left [...] Enrolled in Current Health. Plans to pick pulling machine operator meter from pharmacy today. Instructions [...] and class I obesity. Per review of REFUEL[employer] documentation of 09/25/23, blood glucose values have [...] Recommend nutrition consult with RDN (Registered Dietitian Tilt Tray Driver). Lifestyle changes are also indicated including optimizing [...] and folate levels and referral to a van cdl driver. If hemoglobin levels are below 8 g/dl, we recommend Maternal Medicine ultrasound for growth every 4 weeks after 24 weeks. Consider a blood transfusion if hemoglobin levels fall below 6 g/dL. ([employer] and Percussion Instructor Practice Bulletin Number 95, December,). Consider Venofer [...] money to get more. 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 Not [...] 11:15 AM EDT Hem/Onc Treatment Hematology/Oncology Treatment, [place] [address] [place] [phone] [place], Chair 10 Hem Onc [facility] 200 [facility] [place] [address] 09/11/2024 8:00 AM EDT Office Visit Hematology/Oncology [facility] [place] 200 [facility] [place] [address] Gabby Zavala CRNP 400 [place] [address] Health Maintenance Due Date Last Done Comments [...] this encounter Medical Devices Implanted Type Area Senior Internet Sales Consultant Device Identifier Shelf Expiration Date Model / Serial / Lot Stent Angulo 4fr 11cm - [id number] Implanted:Qty : 1 on 02/08/2024 by Jeffrey Kerr MD at OR [facility] [employer] [id number] 08/16/2028 [id number] / / [id number] Port Implant W8f Poly Cath - [id number] Implanted:Qty : 1 on 05/02/2024 by Iam Curry MD at OR [facility] Right: Chest CR BARD : PERIPHERAL VASCULAR [id number] 05/17/2025 [id number] / / [id number] documented as of this encounter Visit Diagnoses [...] at 0945, For 1 dose, Restricted per [facility] antiemetic guidelinesIndications:Malign ant neoplasm of upper-outer [...] mL documented in this encounter Care Teams Racing Board Marker Relationship Specialty Start Date End Date Malinda Owens CRNP [address] [place] [address] PCP - General Nurse Practitioner 09/20/23 documented as of this encounter
--- OUTSIDE RECORDS SUMMARY | 2024-09-05 14:23 | External Medical Summary | Summary of Care ---
Author Name Unknown Organization [facility] Address [address] [place] [address] Phone [phone] Care Team Providers Care Mechanical Maintenance Supervisor Name Role Phone Malinda Owens Primary Care Provider Reason for Visit * Reason Comments Chemotherapy Taxol/Carbo * Episode Based Medications (Routine) - Authorized Specialty Diagnoses / Procedures Referred By Contac t Referred To Contact Diagnoses Malignant neoplasm of upper-outer quadrant of left breast in female, estrogen receptor negative (HCC) Encounter for antineoplastic chemotherapy Encounter for prevention of neutropenia due to chemotherapy Procedures MT DOXORUBIC HCL 10 MG VL CHEMO MT CARBOPLATIN INJECTION MT FOSAPREPITANT INJECTION MT INJ PEMBROLIZUMAB MT INJECTION, FULPHILA MT PACLITAXEL INJECTION MT INJ CYCLOPHOSPHAMD AUROMEDIC MT PALONOSETRON HCL Em Ng MD Hematology/Oncology Treatment, [address] [address] Phone: tel: fax: Referral ID Status Reason Start Date Expiration Date V isits Requested Visits Authorized [id number] Authorized 04/30/2024 06/17/2099 999 [id number] Encounter Details Date Type Department Care Team (Latest Contact Info) Description 07/24/2024 9:30 AM EST Hem/Onc Treatment Hematology/Oncolog y Treatment, [address] [address] [place], Chair 11 Hem On[address] [address] Malignant neoplasm of upper-outer quadrant of left [...] and class I obesity. Per review of ANESTHESIOLOGIST ASSISTANT CERTIFIED documentation of 09/25/23, blood glucose values have [...] Recommend nutrition consult with RDN (Registered Dietitian Stage Director). Lifestyle changes are also indicated including optimizing [...] and folate levels and referral to a cafeteria supervisor. If hemoglobin levels are below 8 g/dl, we recommend Maternal Medicine ultrasound for growth every 4 weeks after 24 weeks. Consider a blood transfusion if hemoglobin levels fall below 6 g/dL. ([employer] Obstetricians and Oracle Apex Developer Practice Bulletin Number 95, December,). Consider Venofer [...] money to get more. 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 Not [...] 11:15 AM EDT Hem/Onc Treatment Hematology/Oncology Treatment, [place] [address] [place] [address] [place], Chair 10 Hem Onc [facility] 200 [facility] [place] [address] 09/11/2024 8:00 AM EDT Office Visit Hematology/Oncology [facility] [place] 200 [facility] [place] [address] Gabby Zavala CRNP 400 [place] [address] Health Maintenance Due Date Last Done Comments [...] this encounter Medical Devices Implanted Type Area Musical Instruments Assembler Device Identifier Shelf Expiration Date Model / Serial / Lot Stent Angulo 4fr 11cm - [id number] Implanted:Qty : 1 on 02/08/2024 by Jeffrey Kerr MD at OR [facility] [employer] [id number] 08/16/2028 [id number] / / [id number] Port Implant W8f Poly Cath - [id number] Implanted:Qty : 1 on 05/02/2024 by Iam Curry MD at OR [facility] Right: Chest CR BARD : PERIPHERAL VASCULAR [id number] 05/17/2025 [id number] / / [id number] documented as of this encounter Visit Diagnoses [...] at 0945, For 1 dose, Restricted per [facility] antiemetic guidelinesIndications:Malign ant neoplasm of upper-outer [...] mL documented in this encounter Care Teams Mechanical Maintenance Supervisor Relationship Specialty Start Date End Date Malinda Owens CRNP [address] [place] [address] PCP - General Nurse Practitioner 09/20/23 documented as of this encounter
--- OUTSIDE RECORDS SUMMARY | 2024-09-05 14:23 | External Medical Summary | Summary of Care ---
Author Name Unknown Organization [facility] Address [address] [place] [address] Phone [phone] Care Team Providers Care Tunnel Miner Name Role Phone Malinda Owens Primary Care Provider [phone] Reason for Visit * Reason Comments Chemotherapy Taxol/Carbo * Episode Based Medications (Routine) - Authorized Specialty Diagnoses / Procedures Referred By Contac t Referred To Contact Diagnoses Malignant neoplasm of upper-outer quadrant of left breast in female, estrogen receptor negative (HCC) Encounter for antineoplastic chemotherapy Encounter for prevention of neutropenia due to chemotherapy Procedures IN DOXORUBIC HCL 10 MG VL CHEMO IN CARBOPLATIN INJECTION IN FOSAPREPITANT INJECTION IN INJ PEMBROLIZUMAB IN INJECTION, FULPHILA IN PACLITAXEL INJECTION IN INJ CYCLOPHOSPHAMD AUROMEDIC IN PALONOSETRON HCL Em Ng MD Hematology/Oncology Treatment, [address] [address] Phone: tel: fax: Referral ID Status Reason Start Date Expiration Date V isits Requested Visits Authorized [id number] Authorized 04/30/2024 06/17/2099 999 [id number] Encounter Details Date Type Department Care Team (Latest Contact Info) Description 07/24/2024 9:30 AM EST Hem/Onc Treatment Hematology/Oncolog y Treatment, [address] [address] [place], Chair 11 Hem Onc [address] [address] Malignant neoplasm of upper-outer quadrant of left [...] complete. Enrolled in Current Health. Plans to fruit or nut picker meter from pharmacy today. Instructions provided [...] and class I obesity. Per review of VERMIN EXTERMINATOR documentation of 09/25/23, blood glucose values have [...] Recommend nutrition consult with RDN (Registered Dietitian Hand Decorator). Lifestyle changes are also indicated including optimizing [...] and folate levels and referral to a senior shipping clerk. If hemoglobin levels are below 8 g/dl, we recommend Maternal Medicine ultrasound for growth every 4 weeks after 24 weeks. Consider a blood transfusion if hemoglobin levels fall below 6 g/dL. ([employer] Obstetricians and Steam Press Tender Practice Bulletin Number 95, December,). Consider Venofer [...] money to get more. 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 Not on file [...] 11:15 AM EDT Hem/Onc Treatment Hematology/Oncology Treatment, [place] [address] [place] [phone] [place], Chair 10 Hem Onc [facility] 200 [facility] [place] [address] 09/11/2024 8:00 AM EDT Office Visit Hematology/Oncology [facility] [place] 200 [facility] [place] [address] Gabby Zavala CRNP 400 [place] [address] Health Maintenance Due Date Last Done Comments [...] this encounter Medical Devices Implanted Type Area Special Population Paraprofessional Device Identifier Shelf Expiration Date Model / Serial / Lot Stent Angulo 4fr 11cm - [id number] Implanted:Qty : 1 on 02/08/2024 by Jeffrey Kerr MD at OR [facility] [employer] [id number] 08/16/2028 [id number] / / [id number] Port Implant W8f Poly Cath - [id number] Implanted:Qty : 1 on 05/02/2024 by Iam Curry MD at OR [facility] Right: Chest CR BARD : PERIPHERAL VASCULAR [id number] 05/17/2025 [id number] / / [id number] documented as of this encounter Visit Diagnoses [...] at 0945, For 1 dose, Restricted per [facility] antiemetic guidelinesIndications:Malign ant neoplasm of upper-outer quadrant [...] mL documented in this encounter Care Teams Tunnel Miner Relationship Specialty Start Date End Date Malinda Owens CRNP [address] [facility] [place] [address] PCP - General Nurse Practitioner 09/20/23 documented as of this encounter
--- OUTSIDE RECORDS SUMMARY | 2024-09-05 14:23 | External Medical Summary | Summary of Care ---
Author Name Unknown Organization [facility] Address [address] [place] [address] Phone [phone] Care Team Providers Care Mail Room Name Role Phone Malinda Owens Primary Care Provider [phone] Reason for Visit * Reason Comments Chemotherapy Taxol/Carbo * Episode Based Medications (Routine) - Authorized Specialty Diagnoses / Procedures Referred By Contac t Referred To Contact Diagnoses Malignant neoplasm of upper-outer quadrant of left breast in female, estrogen receptor negative (HCC) Encounter for antineoplastic chemotherapy Encounter for prevention of neutropenia due to chemotherapy Procedures NE DOXORUBIC HCL 10 MG VL CHEMO NE CARBOPLATIN INJECTION NE FOSAPREPITANT INJECTION NE INJ PEMBROLIZUMAB NE INJECTION, FULPHILA NE PACLITAXEL INJECTION NE INJ CYCLOPHOSPHAMD AUROMEDIC NE PALONOSETRON HCL Em Ng MD Hematology/Oncology Treatment, [address] [address] Phone: tel: fax: Referral ID Status Reason Start Date Expiration Date V isits Requested Visits Authorized [id number] Authorized 04/30/2024 06/17/2099 999 [id number] Encounter Details Date Type Department Care Team (Latest Contact Info) Description 07/24/2024 9:30 AM EST Hem/Onc Treatment Hematology/Oncolog y Treatment, [address] [address] [place], Chair 11 Hem Onc [address] [address] Malignant neoplasm of upper-outer quadrant of left [...] complete. Enrolled in Current Health. Plans to excelsior picker meter from pharmacy today. Instructions provided [...] and class I obesity. Per review of TOWER HAND documentation of 09/25/23, blood glucose values [...] Recommend nutrition consult with RDN (Registered Dietitian Cone Examiner). Lifestyle changes are also indicated including optimizing [...] and folate levels and referral to a customer contact specialist. If hemoglobin levels are below 8 g/dl, we recommend Maternal Medicine ultrasound for growth every 4 weeks after 24 weeks. Consider a blood transfusion if hemoglobin levels fall below 6 g/dL. ([employer] Obstetricians and Computer Systems Technology Instructor Practice Bulletin Number 95, December,). Consider [...] money to get more. 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 Not [...] 11:15 AM EDT Hem/Onc Treatment Hematology/Oncology Treatment, [place] [address] [place] [address] [place], Chair 10 Hem Onc [facility] 200 [facility] [place] [address] 09/11/2024 8:00 AM EDT Office Visit Hematology/Oncology [facility] [place] 200 [facility] [place] [address] Gabby Zavala CRNP 400 [place] [id number] Health Maintenance Due Date Last Done Comments [...] this encounter Medical Devices Implanted Type Area Drawing In Machine Tender Helper Device Identifier Shelf Expiration Date Model / Serial / Lot Stent Angulo 4fr 11cm - [id number] Implanted:Qty : 1 on 02/08/2024 by Jeffrey Kerr MD at OR [facility] [employer] [id number] 08/16/2028 [id number] / / [id number] Port Implant W8f Poly Cath - [id number] Implanted:Qty : 1 on 05/02/2024 by Iam Curry MD at OR [facility] Right: Chest CR BARD : PERIPHERAL VASCULAR [id number] 05/17/2025 [id number] / / [id number] documented as of this encounter Visit Diagnoses [...] at 0945, For 1 dose, Restricted per [facility] antiemetic guidelinesIndications:Malign ant neoplasm of [...] mL documented in this encounter Care Teams Mail Room Relationship Specialty Start Date End Date Malinda Owens CRNP [address] [place] [address] PCP - General Nurse Practitioner 09/20/23 documented as of this encounter
--- OUTSIDE RECORDS SUMMARY | 2024-09-05 14:23 | External Medical Summary | Summary of Care ---
Author Name Unknown Organization [facility] Address [address] [place] [address] Phone [phone] Care Team Providers Care Environmental Conservation Professor Name Role Phone Malinda Owens Primary Care Provider [phone] Reason for Visit * Reason Comments Chemotherapy [...] PALONOSETRON HCL Em Ng MD Hematology/Oncology Treatment, [address] [address] Phone: tel: fax: Referral ID Status Reason Start Date Expiration Date V isits Requested Visits Authorized [id number] Authorized 04/30/2024 06/17/2099 999 999 Encounter Details Date Type Department Care Team (Latest Contact Info) Description 07/24/2024 9:30 AM EST Hem/Onc Treatment Hematology/Oncolog y Treatment, [address] [address] [place], Chair 11 Hem Onc [address] [address] Malignant neoplasm of upper-outer quadrant of left [...] and class I obesity. Per review of OPTICIANRY TEACHER documentation of 09/25/23, blood glucose values [...] Recommend nutrition consult with RDN (Registered Dietitian Shift Supervisor). Lifestyle changes are also indicated including optimizing [...] folate levels and referral to a cafeteria clerk. If hemoglobin levels are below 8 g/dl, we recommend Maternal Medicine ultrasound for growth every 4 weeks after 24 weeks. Consider a blood transfusion if hemoglobin levels fall below 6 g/dL. ([employer] Obstetricians and Tube Splicer Practice Bulletin Number 95, December,). Consider Venofer [...] money to get more. 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 on file [...] 11:15 AM EDT Hem/Onc Treatment Hematology/Oncology Treatment, [place] [address] [place] [address] [place], Chair 10 Hem Onc [facility] 200 [facility] [place] [address] 09/11/2024 8:00 AM EDT Office Visit Hematology/Oncology [facility] [place] 200 [facility] [place] [address] Gabby Zavala CRNP 400 [place] [address] Health Maintenance Due Date Last Done Comments [...] this encounter Medical Devices Implanted Type Area Internal Communications Writer Device Identifier Shelf Expiration Date Model / Serial / Lot Stent Angulo 4fr 11cm - [id number] Implanted:Qty : 1 on 02/08/2024 by Jeffrey Kerr MD at OR [facility] [employer] [id number] 08/16/2028 [id number] / / [id number] Port Implant W8f Poly Cath - [id number] Implanted:Qty : 1 on 05/02/2024 by Iam Curry MD at OR [facility] Right: Chest CR BARD : PERIPHERAL VASCULAR [id number] 05/17/2025 [id number] / / [id number] documented as of this encounter Visit Diagnoses [...] at 0945, For 1 dose, Restricted per [facility] antiemetic guidelinesIndications:Malign ant neoplasm of upper-outer quadrant [...] mL documented in this encounter Care Teams Environmental Conservation Professor Relationship Specialty Start Date End Date Malinda Owens CRNP [address] [facility] [place] [address] PCP - General Nurse Practitioner 09/20/23 documented as of this encounter
--- OUTSIDE RECORDS SUMMARY | 2024-09-05 14:24 | External Medical Summary ---
Author Name Unknown Address Unknown Organization K[facility] [place] [address] Laboratory Report Ordering Provider Test Date Status JASMINE JANSEN 08/21/2024 09:00:52 Final Observation Date Value Abnormality Reference (Units ) Status SYNC LEUKOCYTES IN BLOOD BY AUTOMATED COUNT 08/21/2024 09:00:52 5.93 4.00-10.80 (K/uL) Final Segs 08/21/2024 09:00:52 16.2 Below low normal 40.0-75.0 (%) Final Lymphs % 08/21/2024 09:00:52 63.9 Above high normal 18.0-42.0 (%) Final Monos 08/21/2024 09:00:52 16.7 Above high normal 1.0-11.0 (%) Final Eosinophils 08/21/2024 09:00:52 2.7 0.0-6.0 (%) Final Basos 08/21/2024 09:00:52 0.5 0.0-2.0 (%) Final Absolute Segs 08/21/2024 09:00:52 0.96 Below low normal 1.80-7.70 (K/uL) Final Lymphs, absolute 08/21/2024 09:00:52 3.79 1.00-4.80 (K/ul) Final Monos, Abs 08/21/2024 09:00:52 0.99 0.00-1.10 (K/uL) Final Eos, Abs 08/21/2024 09:00:52 0.16 0.00-0.70 (K/uL) Final Basos, Abs 08/21/2024 09:00:52 0.03 0.00-0.20 (K/uL) Final Performing Location [facility] [place] [address]
--- OUTSIDE RECORDS SUMMARY | 2024-09-05 14:24 | External Medical Summary ---
Author Name Unknown Address Unknown Organization [facility] [address] [place] [address] Laboratory Report Ordering Provider Test Date Status JASMINE JANSEN 08/21/2024 09:00:52 Final Observation Date Value Abnormality Reference (Units ) Status BUN 08/21/2024 09:00:52 14 6-20 (mg/dL) Final Creatinine 08/21/2024 09:00:52 0.8 0.5-1.0 (mg/dL) Final Glomerular filtration rate/1.73 sq M.predicted [Volume Rate/Area] in Serum, Plasma or Blood by Creatinine-based formula (CKD-EPI) 08/21/2024 09:00:52 >90 >=60 (mL/min) Final eGFR is calculated based on the CKD-EPI 2020 equation. Sodium 08/21/2024 09:00:52 139 135-146 (m mol/L) Final Potassium 08/21/2024 09:00:52 4.0 3.5-5.1 (m mol/L) Final Cl 08/21/2024 09:00:52 104 98-107 (mm ol/L) Final CO2 08/21/2024 09:00:52 23 22-32 (mmo l/L) Final Anion gap 08/21/2024 09:00:52 12 7-15 (mmol /L) Final Glucose 08/21/2024 09:00:52 85 70-120 (mg /dL) Final Albumin 08/21/2024 09:00:52 4.3 3.8-5.0 (g /dL) Final AST (Aspartate aminotransferase) 08/21/2024 09:00:52 33 10-35 (U/L) Final Alk Phos 08/21/2024 09:00:52 66 35-130 (U/ L) Final Bilirubin, Total 08/21/2024 09:00:52 0.6 <=1 .2 (mg/dL) Final Calcium 08/21/2024 09:00:52 9.9 8.4-10.2 ( mg/dL) Final Protein 08/21/2024 09:00:52 7.1 6.0-8.3 (g /dL) Final ALT (Alanine aminotransferase) 08/21/2024 09:00:52 31 10-35 (U/L) Final Performing Location [facility] [address] [place] [address]
--- OUTSIDE RECORDS SUMMARY | 2024-09-05 14:24 | External Medical Summary | Summary of Care ---
Author Name Unknown Organization [facility] Address [address] [place] [place] [address] Phone [phone] Care Team Providers Care Finish Painter Name Role Phone Malinda Owens Primary Care Provider [phone] Reason for Visit * Reason Comments Chemotherapy Chemo held Medication Administration Lupron injecti on * Episode Based Medications (Routine) - Authorized Specialty Diagnoses / Procedures Referred By Contac t Referred To Contact Diagnoses Malignant neoplasm of upper-outer quadrant of left breast in female, estrogen receptor negative (HCC) Encounter for fertility preservation procedure Suppression of ovarian secretion Procedures PA LEUPROLIDE ACETATE /3.75 MG Em Ng MD Hematology/Oncology Treatment, [address] [address] Phone: tel: fax: Referral ID Status Reason Start Date Expiration Date V isits Requested Visits Authorized [id number] Authorized 05/08/2024 06/16/2099 999 [id number] Encounter Details Date Type Department Care Team (Latest Contact Info) Description 08/14/2024 10:30 AM EST Hem/Onc Treatment Hematology/Oncology Treatment, [address] [address] [place], Chair 7 Hem Onc [address] [address] Malignant neoplasm of upper-outer quadrant of left breast in female, estrogen receptor negative (HCC)*; Encounter for fertility preservation procedure; Suppression of ovarian secretion Allergies No known active allergiesdocumented as of this encounter (statuses as of 08/15/2024) Medications 29-1 MG Oral Tablet Chewable Take [...] as of this encounter (statuses as of 08/15/2024) Active Problems Problem Noted Date Diagnosed Date [...] and class I obesity. Per review of DISABILITY INSURANCE CLAIM EXAMINER documentation of 09/25/23, blood glucose values have [...] Recommend nutrition consult with RDN (Registered Dietitian Clinical Staff Educator). Lifestyle changes are also indicated including optimizing [...] and folate levels and referral to a transcription. If hemoglobin levels are below 8 g/dl, we recommend Maternal Medicine ultrasound for growth every 4 weeks after 24 weeks. Consider a blood transfusion if hemoglobin levels fall below 6 g/dL. ([employer] Obstetricians and [employer] Membership Advisors Practice Bulletin Number 95, December,). Consider Venofer [...] as of this encounter (statuses as of 08/15/2024) Resolved Problems Problem Noted Date Diagnosed Date Resolved Date Abnormal glucose tolerance i n mother complicating 04/19/2023 08/31/2023 Overview (04/19/2023): Failed early glucola. 3hr GTT ordered documented as of this encounter (statuses as of 08/15/2024) Immunizations Name Administration Dates Next Due DTP [...] money to get more. 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 Maravilla, chemo held due to ANC 0.4. Chemo delayed 1 week. Port needle flushed with 10 ml NSS, blood return noted, and port locked with additional 10 ml NSS. Lopez needle removed, intact, gauze dressing applied. Lupron injection due today, injection given and patient tolerated well. Patient left facility in stable condition. documented in this encounter Plan of Treatment Upcoming Encounters Date Type Department Care Team (Late st Contact Info) Description 08/21/2024 8:45 AM EST Hem/Onc Treatment Hematology/Oncology Treatment, [place] [address] [place] [address] [place], Chair 3 Hem Onc [facility] 200 [facility] [place] [address] 09/11/2024 8:00 AM EDT Office Visit Hematology/Oncology [facility] [place] 200 [facility] [place] [address] Gabby Zavala CRNP 400 [facility] [place] [address] Health Maintenance Due Date Last Done Comments [...] this encounter Medical Devices Implanted Type Area Dump Operator Device Identifier Shelf Expiration Date Model / Serial / Lot Therese Angulo 4fr 11cm - [id number] Implanted:Qty : 1 on 02/08/2024 by Jeffrey Kerr MD at OR [facility] [employer] [id number] 08/16/2028 6546 / / [id number] Port Implant W8f Poly Cath - [id number] Implanted:Qty : 1 on 05/02/2024 by Iam Curry MD at OR [facility] Right: Chest CR BARD : PERIPHERAL VASCULAR [id number] 05/17/2025 [id number] / / [id number] documented as of this encounter Visit Diagnoses [...] estrogen receptor negative (HCC)- Primary Encounter for fertility preservation procedure 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 documented in this encounter Administered Medications Inactive Administered Medications - up to 3 most recent administrations Medication Order MAR Action Action Date Dose Rate Site Leuprolide Acetate (Lupron) inj 3.75 mg 3.75 mg, Intramuscular, ONCE, On Bibi 08/14/24 at 1145, For 1 doseIndications:Malignant neoplasm of upper-outer quadrant of left breast in female, estrogen receptor negative (HCC),Encounter for fertility preservation procedure,Suppression of ovarian secretion Given 08/14/2024 10:43 AM EST 3.75 mg Dorsogluteal Left documented in this encounter Care Teams Finish Painter Relationship Specialty Start Date End Date Malinda Owens CRNP [address] [place] [address] PCP - General Nurse Practitioner 09/20/23 documented as of this encounter
--- OUTSIDE RECORDS SUMMARY | 2024-09-05 14:24 | External Medical Summary ---
Author Name Unknown Address Unknown Organization K09[facility] [place] [address] Laboratory Report Ordering Provider Test Date Status JASMINE JANSEN 08/21/2024 09:00:52 Final Observation Date Value Abnormality Reference (Units ) Status Screen, Urine 08/21/2024 09:00:52 Negative Negative Final Performing Location [facility] [place] [place] [address]
--- OUTSIDE RECORDS SUMMARY | 2024-09-05 14:24 | External Medical Summary | Summary of Care ---
Author Name Unknown Organization [facility] Address [address] [place] [address] Phone [phone] Care Team Providers Care Tanyard Worker Name Role Phone Malinda Owens Primary Care [...] PALONOSETRON HCL Em Ng MD Hematology/Oncology Treatment, [address] [address] Phone: tel: fax: Referral ID Status Reason Start Date Expiration Date V isits Requested Visits Authorized [id number] Authorized 04/30/2024 06/17/[phone] Encounter Details Date Type Department Care Team (Latest Contact Info) Description 07/31/2024 8:45 AM EST Hem/Onc Treatment Hematology/Oncolog y Treatment, [address] [address] [place] Chair 7 Hem Onc [address] [place] [address] Malignant neoplasm of upper-outer quadrant of [...] complete. Enrolled in Current Health. Plans to merchandise pickup/receiving associate meter from pharmacy today. Instructions provided to [...] and class I obesity. Per review of DRY CLIPPER TENDER documentation of 09/25/23, blood glucose values [...] Recommend nutrition consult with RDN (Registered Dietitian Trade Show Coordinator). Lifestyle changes are also indicated including optimizing [...] and folate levels and referral to a box office attendant. If hemoglobin levels are below 8 g/dl, we recommend Maternal Medicine ultrasound for growth every 4 weeks after 24 weeks. Consider a blood transfusion if hemoglobin levels fall below 6 g/dL. ([employer] [facility] Bulletin Number 95, December,). Consider Venofer [...] money to get more. 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 [...] 11:15 AM EDT Hem/Onc Treatment Hematology/Oncology Treatment, [place] [address] [facility] [place] [phone] [place], Chair 10 Hem Onc [place] [address] [place] [address] 09/11/2024 8:00 AM EDT Office Visit Hematology/Oncology [place] [address] [place] [phone] Gabby Zavala CRNP [address] [address] Health Maintenance Due Date Last Done Comments [...] this encounter Medical Devices Implanted Type Area Eyewear Manufacturing Tech Device Identifier Shelf Expiration Date Model / Serial / Lot Stent Angulo 4fr 11cm - [id number] Implanted:Qty : 1 on 02/08/2024 by Jeffrey Kerr MD at OR [facility] [employer] [id number] 08/16/2028 [id number] / / [id number] Port Implant W8f Poly Cath - [id number] Implanted:Qty : 1 on 05/02/2024 by Iam Curry MD at OR [facility] Right: Chest CR BARD : PERIPHERAL VASCULAR [id number] 05/17/2025 [id number] / / [id number] documented as of this encounter Procedures Procedure [...] TECHNOLOGIST REVIEW (07/31/2024 8:44 AM EST) Pathologist [facility] nRs 07/31/2024 10:02 AM EST [facility] 56-02 Blood Venous blood specimen / Unknown Central Line / Unknown 07/31/2024 8:44 AM EST 07/31/2024 9:39 AM EST Kanu Maravilla MD LAB BLOOD ORDERABLES Final Res ult [facility] 56-[address] [place] [address] * (ABNORMAL) DIFFERENTIAL, AUTOMATED (07/31/2024 8:44 AM EST) WBC 2.59(L) 4.00 - 10.80 K/uL 07/31/2024 10:02 AM EST [facility] 56-02 Neutrophils % 71.4 40.0 - 75.0 % 07/31/2024 10:02 AM [facility] 56-02 Lymphocytes % 27.0 18.0 - 42.0 % 07/31/2024 10:02 AM [facility] 56-02 Monocytes % 1.2 1.0 - 11.0 % 07/31/2024 10:02 AM [facility] 56-02 Eosinophils % 0.0 0.0 - 6.0 % 07/31/2024 10:02 AM [facility] 56-02 Basophils % 0.4 0.0 - 2.0 % 07/31/2024 10:02 AM [facility] 56-02 Absolute Neutrophils 1.85 1.80 - 7.70 K/uL 07/31/2024 10:02 AM [facility] 56-02 Absolute Lymphocytes 0.70(L) 1.00 - 4.80 K/ul 07/31/2024 10:02 AM [facility] 56-02 Absolute Monocytes 0.03 0.00 - 1.10 K/uL 07/31/2024 10:02 AM [facility] 56-02 Absolute Eosinophils 0.00 0.00 - 0.70 K/uL 07/31/2024 10:02 AM [facility] 56-02 Absolute Basophils 0.01 0.00 - 0.20 K/uL 07/31/2024 10:02 AM [facility] 56-02 Blood Venous blood specimen / Unknown Central Line / Unknown 07/31/2024 8:44 AM EST 07/31/2024 9:39 AM EST us Kanu Maravilla MD LAB BLOOD ORDERABLES Final Res ult [facility] 56-[address] [place] [address] * (ABNORMAL) CBC (07/31/2024 8:44 AM EST) WBC 2.59(L) 4.00 - 10.80 K/uL 07/31/2024 10:02 AM [facility] 56-02 RBC 3.39 3.85 - 5.15 M/uL 07/31/2024 10:02 AM [facility] 56-02 HGB 11.4(L) 12.0 - 15.3 g/dL 07/31/2024 10:02 AM [facility] 56- HCT 34.6(L) 36.0 - 45.2 % 07/31/2024 10:02 AM [facility] 56- MCV 102.1 81.5 - 97.5 fL 07/31/2024 10:02 AM [facility] 56- MCH 33.6 27.0 - 34.0 pg 07/31/2024 10:02 AM [facility] 56- MCHC 32.9 32.0 - 36.0 g/dL 07/31/2024 10:02 AM [facility] 56- RDW 14.6 11.5 - 15.5 % 07/31/2024 10:02 AM [facility] 56- PLT 179 140 - 400 K/uL 07/31/2024 10:02 AM [facility] 56- MPV 10.2 6.6 - 11.1 fL 07/31/2024 10:02 AM [facility] 56 Blood Venous blood specimen / Unknown Central Line / Unknown 07/31/2024 8:44 AM EST 07/31/2024 9:39 AM EST us Kanu Maravilla MD LAB BLOOD ORDERABLES Final Res ult [facility] 56 [address] [place] [address] * HCG QUALITATIVE, URINE (07/31/2024 8:44 AM EST) HCG Qualitative, Urine Negative Negative 07/31/2024 9:57 AM [facility] 56- Urine Urine specimen obtained by clean catch procedure / Unknown Non-blood Collection / Unknown 07/31/2024 8:44 AM EST 07/31/2024 9:48 AM EST us Kanu Maravilla MD LAB URINE ORDERABLES Final Res ult [facility] 56- 200 [facility] [place] [address] * (ABNORMAL) COMPREHENSIVE METABOLIC PANEL (07/31/2024 8:44 AM EST) BUN 16 6 - 20 mg/dL 07/31/2024 10:02 AM [facility] 56- CREATININE 0.7 0.5 - 1.0 mg/dL 07/31/2024 10:02 AM [facility] 56- EGFR >90 >=60 mL/min 07/31/2024 10:02 AM [facility] 56- Comment:eGFR is calculated b ased on the CKD-EPI 2020 equation. SODIUM 140 135 - 146 mmol/L 07/31/2024 10:02 AM [facility] 56- POTASSIUM 4.3 3.5 - 5.1 mmol/L 07/31/2024 10:02 AM [facility] 56- CHLORIDE 104 98 - 107 mmol/L 07/31/2024 10:02 AM [facility] 56 CO2 20(L) 22 - 32 mmol/L 07/31/2024 10:02 AM [facility] 56- ANION GAP 16(H) 7 - 15 mmol/L 07/31/2024 10:02 AM [facility] 56 GLUCOSE 223(H) 70 - 120 mg/dL 07/31/2024 10:02 AM [facility] 56 Albumin 4.5 3.8 - 5.0 g/dL 07/31/2024 10:02 AM [facility] 56- AST 16 10 - 35 U/L 07/31/2024 10:02 AM [facility] 56- Alkaline Phosphatase 80 35 - 130 U/L 07/31/2024 10:02 AM [facility] 56- Bilirubin, Total 0.4 <=1.2 mg/dL 07/31/2024 10:02 AM [facility] 56- CALCIUM 9.6 8.4 - 10.2 mg/dL 07/31/2024 10:02 AM [facility] 56- Protein 7.5 6.0 - 8.3 g/dL 07/31/2024 10:02 AM [facility] 56- ALT 20 10 - 35 U/L 07/31/2024 10:02 AM EST [facility] 56-02 Blood Venous blood specimen / Unknown Central Line / Unknown 07/31/2024 8:44 AM EST 07/31/2024 9:38 AM EST us Kanu Maravilla MD LAB BLOOD ORDERABLES Final Res ult [facility] 56- [address] [place] [address] documented in this encounter Visit Diagnoses Diagnosis [...] at 1045, For 1 dose, Restricted per [facility] antiemetic guidelinesIndications:Jess christie neoplasm of upper-outer quadrant [...] mL documented in this encounter Care Teams Tanyard Worker Relationship Specialty Start Date End Date Malinda Owens CRNP [address] [facility] [place] [address] PCP - General Nurse Practitioner 09/20/23 documented as of this encounter
--- OUTSIDE RECORDS SUMMARY | 2024-09-05 14:24 | External Medical Summary ---
Author Name Unknown Address Unknown Organization K01:LABORATORY [facility] - [address] [place] [address] Laboratory Report Ordering Provider Test Date Status JAVIERELAINELISE 08/21/2024 09:00:52 Final Observation Date Value Abnormality Reference (Units ) Status TSH 08/21/2024 09:00:52 2.42 0.27-4.20 (uIU/mL) Final Performing Location [facility]ATORY [facility] [address] [place] [address]
--- OUTSIDE RECORDS SUMMARY | 2024-09-05 14:24 | External Medical Summary | Summary of Care ---
Author Name Unknown Organization [facility] Address [address] [place] [address] Phone [phone] Care Team Providers Care Termite Renewal Inspector Name Role Phone Malinda Owens Primary Care Provider [phone] Reason for Visit * Reason Comments Nurse Documentation Delay chemo 1 week IV Therapy IV hydration only Encounter Details Date Type Department Care Team (Latest Contact Info) Description 08/21/2024 8:45 AM EST Hem/Onc Treatment Hematology/Oncolog y Treatment, [place] [address] [place] [address] [place], Chair 3 Hem Onc [facility] [address] [place] [address] Encounter for antineoplastic chemotherapy*; Malignant neoplasm of upper-outer quadrant of left breast in female, estrogen receptor negative (HCC); Encounter for prevention of neutropenia due to chemotherapy Allergies No known active allergiesdocumented as of this encounter (statuses as of 08/21/2024) Medications 19 29-1 MG Oral Tablet Chewable [...] estrogen receptor negative (HCC),Encounter for antineoplastic chemotherapy,Yassine estrella for prevention of neutropenia due to chemotherapy [...] as of this encounter (statuses as of 08/21/2024) Active Problems Problem Noted Date Diagnosed Date [...] complete. Enrolled in Current Health. Plans to sheepskin pickler meter from pharmacy today. Instructions provided [...] and class I obesity. Per review of GRAIN BLENDER documentation of 09/25/23, blood glucose values have [...] Recommend nutrition consult with RDN (Registered Dietitian Wool Dyer). Lifestyle changes are also indicated including optimizing [...] and folate levels and referral to a superintendent meters. If hemoglobin levels are below 8 g/dl, we recommend Maternal Medicine ultrasound for growth every 4 weeks after 24 weeks. Consider a blood transfusion if hemoglobin levels fall below 6 g/dL. ([employer] [facility] [employer] Bulletin Number 95, December,). Consider Venofer [...] as of this encounter (statuses as of 08/21/2024) Resolved Problems Problem Noted Date Diagnosed Date Resolved Date Abnormal glucose tolerance i n mother complicating 04/19/2023 08/31/2023 Overview (04/19/2023): Failed early glucola. 3hr GTT ordered documented as of this encounter (statuses as of 08/21/2024) Immunizations Name Administration Dates Next Due DTP [...] money to get more. 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 Port needle flushed with 10 ml NSS, blood return noted, and port locked with additional 10 ml NSS. Lopez needle removed, intact, gauze dressing applied. Patient aware of appointment date/time for next week. Denies other needs at this time. Ambulatory from unit in stable condition. Goals: Patient will remain free from injury Possible barriers to meeting goals: ambulating with IV pole Stability of the patient: Moderately stable - low risk of patient condition declining or worsening Summary regarding today's goals: Patient remained free from injury * Genie Zambrano RN - 08/21/2024 10:48 AM EST 1035 Reviewed today's labs with Dr. Maravilla. Based on ANC of 0.96 and patient's symptoms (see previous note), he wants to defer treatment for 1 week. Ok to finish patient's fluids today. Discussed withpatient, she is agreeable and verbalizes understanding. * Genie Zambrano RN - 08/21/2024 10:16 AM EST Chair 8. Pt here for Keytruda AC treatment. Reports she has been having a hard time at home. Specifically notes fatigue, lightheadedness, dizziness, SOB, nausea, and diarrhea. Port accessed using sterile technique. Blood return noted. 10ml blood wasted, labs drawn. Flushed with 10ml NS. Pt tolerated well. Chemotherapy/Immunotherapy agents: CYTOXAN, DOXORUBICIN, and KEYTRUDA Consent for chemotherapy drug treatment complete, dated, and signed? yes, date - 04/24/24 Treatment lab parameters met? No, ANC 0.96, Dr. Maravilla to review Has treatment weight changed > than 10%? No Treatment preauthorized? Yes VITALS Filed Vitals: 08/21/24 0900 BP: 90/58 Pulse: 108 Resp: 18 Temp: 35.9 C (96.6 F) TempSrc: Tympanic SpO2: 95% Weight: 88.8 kg (195 lb 12.8 oz) BP Readings from Last 2 Encounters: 08/21/24 90/58 08/13/24 100/60 Pulse Readings from Last 2 Encounters: 08/21/24 108 08/14/24 93 Resp Readings from Last 2 Encounters: 08/21/24 18 08/13/24 18 SpO2 Readings from Last 2 Encounters: 08/21/24 95% 08/14/24 94% Temp Readings from Last 2 Encounters: 08/21/24 35.9 C (96.6 F) (Tympanic) 08/14/24 36.7 C (98.1 F) (Tympanic) Urine protein: N/A Patient education completed for treatment? Yes Blood transfusion consent signed and complete? NA Return appointment scheduled? Yes Patient had provider visit today? No - If no provider visit must complete Pretreatment Assessment PRE-TREATMENT ASSESSMENT: NEURO: denies symptoms, dizziness: , fatigue: , and OTHER: lightheaded CV/RESP: shortness of breath: GI/: nausea: started yesterday evening, and diarrhea: loose stools for past few days progressing to diarrhea this morning, yellow in color OTHER: denies any additional symptoms PAIN: 0 Functional Status: Functional status at today's visit: [...] 11:15 AM EDT Hem/Onc Treatment Hematology/Oncology Treatment, [address] [place] [phone] [place], Chair 10 Hem Onc [facility] [address] [facility] [place] [address] 09/11/2024 8:00 AM EDT Office Visit Hematology/Oncology [facility] [place] [address] [place] [phone] Gabby Zavala CRNP [address] [place] [address] [place] [address] Health Maintenance Due Date Last Done Comments [...] this encounter Medical Devices Implanted Type Area Housecleaner Floor Device Identifier Shelf Expiration Date Model / Serial / Lot Stent Angulo 4fr 11cm - [id number] Implanted:Qty : 1 on 02/08/2024 by Jeffrey Kerr MD at OR [facility] [employer] [id number] 08/16/2028 [id number] / / [id number] Port Implant W8f Poly Cath - [id number] Implanted:Qty : 1 on 05/02/2024 by Iam Curry MD at OR [facility] Right: Chest CR BARD : PERIPHERAL VASCULAR [id number] 05/17/2025 [id number] / / [id number] documented as of this encounter Procedures Procedure Name Priority Date/Time Associated Diagnosis Comments DIFFERENTIAL, AUTOMATED STAT 08/21/2024 9:00 AM EST Malignant neoplasm of upper-outer quadrant of left breast in female, estrogen receptor negative (HCC) TSH WITH FREE T4 IF INDICATED STAT 08/21/2024 9:00 AM EST Malignant neoplasm of upper-outer quadrant of left breast in female, estrogen receptor negative (HCC) COMPREHENSIVE METABOLIC PANEL STAT 08/21/2024 9:00 AM EST Malignant neoplasm of upper-outer quadrant of left breast in female, estrogen receptor negative (HCC) CBC STAT 08/21/2024 9:00 AM EST Malignant neoplasm of upper-outer quadrant of left breast in female, estrogen receptor negative (HCC) CBC STAT 08/21/2024 9:00 AM EST Malignant neoplasm of upper-outer quadrant of left breast in female, estrogen receptor negative (HCC) HCG QUALITATIVE, URINE STAT 9:00 AM EST Malignant neoplasm of upper-outer quadrant of left breast in female, estrogen receptor negative (HCC) documented in this encounter Results * (ABNORMAL) DIFFERENTIAL, AUTOMATED (08/21/2024 9:00 AM EST) WBC 5.93 4.00 - 10.80 K/uL 08/21/2024 9:34 AM EST [facility] 56-02 Neutrophils % 16.2(L) 40.0 - 75.0 % 08/21/2024 9:34 AM EST [facility] 56-02 Lymphocytes % 63.9(H) 18.0 - 42.0 % 08/21/2024 9:34 AM EST [facility] 56-02 Monocytes % 16.7(H) 1.0 - 11.0 % 08/21/2024 9:34 AM EST [facility] 56-02 Eosinophils % 2.7 0.0 - 6.0 % 08/21/2024 9:34 AM EST [facility] 56-02 Basophils % 0.5 0.0 - 2.0 % 08/21/2024 9:34 AM EST LAB[facility]ATORY [facility] 56-02 Absolute Neutrophils 0.96(L) 1.80 - 7.70 K/uL 08/21/2024 9:34 AM [facility] 56 Absolute Lymphocytes 3.79 1.00 - 4.80 K/ul 08/21/2024 9:34 AM [facility] 56 Absolute Monocytes 0.99 0.00 - 1.10 K/uL 08/21/2024 9:34 AM [facility] 56 Absolute Eosinophils 0.16 0.00 - 0.70 K/uL 08/21/2024 9:34 AM [facility] 56- Absolute Basophils 0.03 0.00 - 0.20 K/uL 08/21/2024 9:34 AM [facility] 56 Blood Venous blood specimen / Unknown Central Line / Unknown 08/21/2024 9:00 AM EST 08/21/2024 9:28 AM EST us Kanu Maravilla MD LAB BLOOD ORDERABLES Final Res ult [facility] [address] [place] [address] * (ABNORMAL) CBC (08/21/2024 9:00 AM EST) WBC 5.93 4.00 - 10.80 K/uL 08/21/2024 9:34 AM [facility] RBC 3.50 3.85 - 5.15 M/uL 08/21/2024 9:34 AM [facility] 56 HGB 11.8(L) 12.0 - 15.3 g/dL 08/21/2024 9:34 AM [facility] 56- HCT 34.5(L) 36.0 - 45.2 % 08/21/2024 9:34 AM [facility] 56- MCV 98.6 81.5 - 97.5 fL 08/21/2024 9:34 AM [facility] 56- MCH 33.7 27.0 - 34.0 pg 08/21/2024 9:34 AM [facility] 56 MCHC 34.2 32.0 - 36.0 g/dL 08/21/2024 9:34 AM [facility] RDW 12.9 11.5 - 15.5 % 08/21/2024 9:34 AM [facility] 56- PLT 206 140 - 400 K/uL 08/21/2024 9:34 AM [facility] 56 MPV 9.9 6.6 - 11.1 fL 08/21/2024 9:34 AM [facility] 56 Blood Venous blood specimen / Unknown Central Line / Unknown 08/21/2024 9:00 AM EST 08/21/2024 9:28 AM EST us Kanu Maravilla MD LAB BLOOD ORDERABLES Final Res ult [facility] 56 [address] [place] [address] * HCG QUALITATIVE, URINE (08/21/2024 9:00 AM EST) HCG Qualitative, Urine Negative Negative 08/21/2024 9:54 AM [facility] 56 Urine Urine specimen obtained by clean catch procedure / Unknown Non-blood Collection / Unknown 08/21/2024 9:00 AM EST 08/21/2024 9:49 AM EST us Kanu Maravilla MD LAB URINE ORDERABLES Final Res ult [facility] 56 [address] [place] [address] * COMPREHENSIVE METABOLIC PANEL (08/21/2024 9:00 AM EST) BUN 14 6 - 20 mg/dL 08/21/2024 9:54 AM [facility] 56- CREATININE 0.8 0.5 - 1.0 mg/dL 08/21/2024 9:54 AM [facility] 56- EGFR >90 >=60 mL/min 08/21/2024 9:54 AM [facility] 56 Comment:eGFR is calculated b ased on the CKD-EPI 2020 equation. SODIUM 139 135 - 146 mmol/L 08/21/2024 9:54 AM [facility] 56-02 POTASSIUM 4.0 3.5 - 5.1 mmol/L 08/21/2024 9:54 AM [facility] 56-02 CHLORIDE 104 98 - 107 mmol/L 08/21/2024 9:54 AM [facility] 56-02 CO2 23 22 - 32 mmol/L 08/21/2024 9:54 AM [facility] 56-02 ANION GAP 12 7 - 15 mmol/L 08/21/2024 9:54 AM [facility] 56-02 GLUCOSE 85 70 - 120 mg/dL 08/21/2024 9:54 AM [facility] 56-02 Albumin 4.3 3.8 - 5.0 g/dL 08/21/2024 9:54 AM [facility] 56-02 AST 33 10 - 35 U/L 08/21/2024 9:54 AM [facility] 5602 Alkaline Phosphatase 66 35 - 130 U/L 08/21/2024 9:54 AM [facility] 56-02 Bilirubin, Total 0.6 <=1.2 mg/dL 08/21/2024 9:54 AM [facility] 56-02 CALCIUM 9.9 8.4 - 10.2 mg/dL 08/21/2024 9:54 AM [facility] 56-02 Protein 7.1 6.0 - 8.3 g/dL 08/21/2024 9:54 AM [facility] 56-02 ALT 31 10 - 35 U/L 08/21/2024 9:54 AM [facility] 56-02 Blood Venous blood specimen / Unknown Central Line / Unknown 08/21/2024 9:00 AM EST 08/21/2024 9:28 AM EST us Kanu Maravilla MD LAB BLOOD ORDERABLES Final Res ult [facility] [address] [place] [address] * TSH WITH FREE T4 IF INDICATED (08/21/2024 9:00 AM EST) TSH 2.42 0.27 - 4.20 uIU/mL 08/21/2024 6:07 PM EST LABORATORY [facility] Blood Venous blood specimen / Unknown Central Line / Unknown 08/21/2024 9:00 AM EST 08/21/2024 9:28 AM EST Mandeep Luna MD LAB BLOOD ORDERABLES Fin al Result LABORATORY [facility] [address] [place] [address] documented in this encounter Visit [...] 2 Hours, ONCE, 1 dose, On Bibi 08/21/24 at 0945Indications:Malignant neoplasm of upper-outer quadrant of left breast in female, estrogen receptor negative (HCC),Encounter for antineoplastic chemotherapy,Encounter for prevention of neutropenia due to chemotherapy Start Infusion 08/21/2024 9:33 AM EST 1,000 mL 500 mL/hr NSS infusion 500 mL, Intravenous, at 50 mL/hr, ONCE PRN, 1 dose, Starting on Bibi 08/21/24 at 1015, Until Bibi 08/21/24 at 1132, Other, maintain lineIndications:Malignant neoplasm of upper-outer quadrant of left breast in female, estrogen receptor negative (HCC),Encounter for antineoplastic chemotherapy,Encounter for prevention of neutropenia due to chemotherapy Start Infusion 08/21/2024 9:30 AM EST 500 mL 50 mL/hr documented in this encounter Care Teams Termite Renewal Inspector Relationship Specialty Start Date End Date Malinda Owens CRNP [address] [place] [address] PCP - General Nurse Practitioner 09/20/23 documented as of this encounter
--- OUTSIDE RECORDS SUMMARY | 2024-09-05 14:24 | External Medical Summary | Summary of Care ---
Author Name Unknown Organization [facility] Address [address] [place] [address] Phone [phone] Care Team Providers Care Histology Supervisor Name Role Phone Malinda Owens Primary Care Provider [phone] Reason for Visit * Reason Comments Chemotherapy C4 D15 Carbo Taxol * Episode Based Medications (Routine) - Authorized Specialty Diagnoses / Procedures Referred By Contac t Referred To Contact Diagnoses Malignant neoplasm of upper-outer quadrant of left breast in female, estrogen receptor negative (HCC) Encounter for antineoplastic chemotherapy Encounter for prevention of neutropenia due to chemotherapy Procedures MD DOXORUBIC HCL 10 MG VL CHEMO MD CARBOPLATIN INJECTION MD FOSAPREPITANT INJECTION MD INJ PEMBROLIZUMAB MD INJECTION, FULPHILA MD PACLITAXEL INJECTION MD INJ CYCLOPHOSPHAMD AUROMEDIC MD PALONOSETRON HCL Em Ng MD Hematology/Oncology Treatment, [address] [address] Phone: tel: fax: Referral ID Status Reason Start Date Expiration Date V isits Requested Visits Authorized [id number] Authorized 04/30/2024 06/17/2099 [id number] Encounter Details Date Type Department Care Team (Latest Contact Info) Description 07/31/2024 8:45 AM EST Hem/Onc Treatment Hematology/Oncolog y Treatment, [address] [address] [place] Chair 7 Hem On[address] [place] [address] Malignant neoplasm of upper-outer quadrant of [...] complete. Enrolled in Current Health. Plans to continuous pickling line pickler meter from pharmacy today. Instructions provided [...] and class I obesity. Per review of WATCH INSPECTOR documentation of 09/25/23, blood glucose values [...] Recommend nutrition consult with RDN (Registered Dietitian Wage And Hour Investigator). Lifestyle changes are also indicated including optimizing [...] and folate levels and referral to a failure analysis technician. If hemoglobin levels are below 8 g/dl, we recommend Maternal Medicine ultrasound for growth every 4 weeks after 24 weeks. Consider a blood transfusion if hemoglobin levels fall below 6 g/dL. ([employer] and Senior Compliance Officer Practice Bulletin Number 95, December,). Consider Venofer [...] money to get more. 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 [...] 11:15 AM EDT Hem/Onc Treatment Hematology/Oncology Treatment, [place] [address] [facility] [place] [phone] [place], Chair 10 Hem Onc [facility] [address] [facility] [place] [address] 09/11/2024 8:00 AM EDT Office Visit Hematology/Oncology [facility] [place] [address] [facility] [place] [phone] Gabby Zavala CRNP [address] [place] [address] Health Maintenance Due Date Last Done Comments [...] this encounter Medical Devices Implanted Type Area Capsule Inspector Device Identifier Shelf Expiration Date Model / Serial / Lot Stent Angulo 4fr 11cm - [id number] Implanted:Qty : 1 on 02/08/2024 by Jeffrey Kerr MD at OR [facility] [employer] [id number] 08/16/2028 [id number] / / [id number] Port Implant W8f Poly Cath - [id number] Implanted:Qty : 1 on 05/02/2024 by Iam Curry MD at OR [facility] Right: Chest CR BARD : PERIPHERAL VASCULAR [id number] 05/17/2025 [id number] / / [id number] documented as of this encounter Procedures Procedure [...] TECHNOLOGIST REVIEW (07/31/2024 8:44 AM EST) Pathologist [facility] nRs 07/31/2024 10:02 AM EST [facility] 56-02 Blood Venous blood specimen / Unknown Central Line / Unknown 07/31/2024 8:44 AM EST 07/31/2024 9:39 AM EST Kanu Maravilla MD LAB BLOOD ORDERABLES Final Res ult [facility] 56-[address] [place] [address] * (ABNORMAL) DIFFERENTIAL, AUTOMATED (07/31/2024 8:44 AM EST) WBC 2.59(L) 4.00 - 10.80 K/uL 07/31/2024 10:02 AM EST [facility] 56-02 Neutrophils % 71.4 40.0 - 75.0 % 07/31/2024 10:02 AM [facility] 56-02 Lymphocytes % 27.0 18.0 - 42.0 % 07/31/2024 10:02 AM [facility] 56-02 Monocytes % 1.2 1.0 - 11.0 % 07/31/2024 10:02 AM [facility] 56-02 Eosinophils % 0.0 0.0 - 6.0 % 07/31/2024 10:02 AM [facility] 56-02 Basophils % 0.4 0.0 - 2.0 % 07/31/2024 10:02 AM [facility] 56-02 Absolute Neutrophils 1.85 1.80 - 7.70 K/uL 07/31/2024 10:02 AM [facility] 56-02 Absolute Lymphocytes 0.70(L) 1.00 - 4.80 K/ul 07/31/2024 10:02 AM [facility] 56-02 Absolute Monocytes 0.03 0.00 - 1.10 K/uL 07/31/2024 10:02 AM [facility] 56-02 Absolute Eosinophils 0.00 0.00 - 0.70 K/uL 07/31/2024 10:02 AM [facility] 56-02 Absolute Basophils 0.01 0.00 - 0.20 K/uL 07/31/2024 10:02 AM [facility] 56-02 Blood Venous blood specimen / Unknown Central Line / Unknown 07/31/2024 8:44 AM EST 07/31/2024 9:39 AM EST us Kanu Maravilla MD LAB BLOOD ORDERABLES Final Res ult [facility] 56-[address] [place] [address] * (ABNORMAL) CBC (07/31/2024 8:44 AM EST) WBC 2.59(L) 4.00 - 10.80 K/uL 07/31/2024 10:02 AM [facility] 56-02 RBC 3.39 3.85 - 5.15 M/uL 07/31/2024 10:02 AM [facility] 56-02 HGB 11.4(L) 12.0 - 15.3 g/dL 07/31/2024 10:02 AM [facility] 56- HCT 34.6(L) 36.0 - 45.2 % 07/31/2024 10:02 AM [facility] 56- MCV 102.1 81.5 - 97.5 fL 07/31/2024 10:02 AM [facility] 56- MCH 33.6 27.0 - 34.0 pg 07/31/2024 10:02 AM [facility] 56- MCHC 32.9 32.0 - 36.0 g/dL 07/31/2024 10:02 AM [facility] 56- RDW 14.6 11.5 - 15.5 % 07/31/2024 10:02 AM [facility] 56- PLT 179 140 - 400 K/uL 07/31/2024 10:02 AM [facility] 56- MPV 10.2 6.6 - 11.1 fL 07/31/2024 10:02 AM [facility] 56 Blood Venous blood specimen / Unknown Central Line / Unknown 07/31/2024 8:44 AM EST 07/31/2024 9:39 AM EST us Kanu Maravilla MD LAB BLOOD ORDERABLES Final Res ult [facility] 56 [address] [place] [address] * HCG QUALITATIVE, URINE (07/31/2024 8:44 AM EST) HCG Qualitative, Urine Negative Negative 07/31/2024 9:57 AM [facility] 56- Urine Urine specimen obtained by clean catch procedure / Unknown Non-blood Collection / Unknown 07/31/2024 8:44 AM EST 07/31/2024 9:48 AM EST us Kanu Maravilla MD LAB URINE ORDERABLES Final Res ult [facility] 56- [address] [facility] [address] * (ABNORMAL) COMPREHENSIVE METABOLIC PANEL (07/31/2024 8:44 AM EST) BUN 16 6 - 20 mg/dL 07/31/2024 10:02 AM [facility] 56- CREATININE 0.7 0.5 - 1.0 mg/dL 07/31/2024 10:02 AM [facility] 56- EGFR >90 >=60 mL/min 07/31/2024 10:02 AM [facility] 56- Comment:eGFR is calculated b ased on the CKD-EPI 2020 equation. SODIUM 140 135 - 146 mmol/L 07/31/2024 10:02 AM [facility] 56- POTASSIUM 4.3 3.5 - 5.1 mmol/L 07/31/2024 10:02 AM [facility] 56- CHLORIDE 104 98 - 107 mmol/L 07/31/2024 10:02 AM [facility] 56 CO2 20(L) 22 - 32 mmol/L 07/31/2024 10:02 AM [facility] 56- ANION GAP 16(H) 7 - 15 mmol/L 07/31/2024 10:02 AM [facility] 56 GLUCOSE 223(H) 70 - 120 mg/dL 07/31/2024 10:02 AM [facility] 56 Albumin 4.5 3.8 - 5.0 g/dL 07/31/2024 10:02 AM [facility] 56- AST 16 10 - 35 U/L 07/31/2024 10:02 AM [facility] 56- Alkaline Phosphatase 80 35 - 130 U/L 07/31/2024 10:02 AM [facility] 56- Bilirubin, Total 0.4 <=1.2 mg/dL 07/31/2024 10:02 AM [facility] 56- CALCIUM 9.6 8.4 - 10.2 mg/dL 07/31/2024 10:02 AM [facility] 56- Protein 7.5 6.0 - 8.3 g/dL 07/31/2024 10:02 AM [facility] 56- ALT 20 10 - 35 U/L 07/31/2024 10:02 AM EST [facility] 56-02 Blood Venous blood specimen / Unknown Central Line / Unknown 07/31/2024 8:44 AM EST 07/31/2024 9:38 AM EST us Kanu Maravilla MD LAB BLOOD ORDERABLES Final Res ult [facility] 56- [address] [place] [address] documented in this encounter Visit Diagnoses Diagnosis [...] at 1045, For 1 dose, Restricted per [facility] antiemetic guidelinesIndications:Jess christie neoplasm of [...] mL documented in this encounter Care Teams Histology Supervisor Relationship Specialty Start Date End Date Malinda Owens CRNP [address] [facility] [place] [address] PCP - General Nurse Practitioner 09/20/23 documented as of this encounter
--- OUTSIDE RECORDS SUMMARY | 2024-09-05 14:24 | External Medical Summary ---
Author Name Unknown Address Unknown Organization K09:[facility] [place] [address] Laboratory Report Ordering Provider Test Date Status JASMINE JANSEN 08/21/2024 09:00:52 Final Observation Date Value Abnormality Reference (Units ) Status WBC, Total 08/21/2024 09:00:52 5.93 4.00-10.8 0 (K/uL) Final RBC 08/21/2024 09:00:52 3.50 3.85-5.15 (M/uL) Final Hemoglobin 08/21/2024 09:00:52 11.8 Below low normal 12 .0-15.3 (g/dL) Final HCT 08/21/2024 09:00:52 34.5 Below low normal 36. 0-45.2 (%) Final MCV 08/21/2024 09:00:52 98.6 81.5-97.5 (fL) Final MCH 08/21/2024 09:00:52 33.7 27.0-34.0 (pg) Final MCHC 08/21/2024 09:00:52 34.2 32.0-36.0 (g/dL) Final RDW 08/21/2024 09:00:52 12.9 11.5-15.5 (%) Final Platelets 08/21/2024 09:00:52 206 140-400 (K /uL) Final MPV 08/21/2024 09:00:52 9.9 6.6-11.1 ( fL) Final Performing Location [facility] [place] [address]
--- OUTSIDE RECORDS SUMMARY | 2024-09-05 14:24 | External Medical Summary | Summary of Care ---
Author Name Unknown Organization [facility] Address [address] [place] [place] [address] Phone [phone] Care Team Providers Care Trust Mail Clerk Name Role Phone Malinda Owens AD Primary Care Provider [phone] Encounter Details Date Type Department Care Team (Late st Contact Info) Description 08/14/2024 Orders Only Hematology/Oncology [facility] [address] [facility] [place] [phone] Kanu Maravilla MD 200 [place] [address] Allergies No known active allergiesdocumented as of this encounter (statuses as of 08/14/2024) Medications 29-1 MG Oral Tablet Chewable Take [...] as of this encounter (statuses as of 08/14/2024) Active Problems Problem Noted Date Diagnosed Date [...] complete. Enrolled in Current Health. Plans to warp picker meter from pharmacy today. Instructions provided [...] and class I obesity. Per review of DAIRY POWDER MIXER OPERATOR documentation of 09/25/23, blood glucose values [...] Recommend nutrition consult with RDN (Registered Dietitian Serology Technician). Lifestyle changes are also indicated including optimizing [...] and folate levels and referral to a radiologic technologist chief. If hemoglobin levels are below 8 g/dl, we recommend Maternal Medicine ultrasound for growth every 4 weeks after 24 weeks. Consider a blood transfusion if hemoglobin levels fall below 6 g/dL. ([employer] and [employer] Professional Practice Bulletin Number 95, December,). Consider Venofer [...] as of this encounter (statuses as of 08/14/2024) Resolved Problems Problem Noted Date Diagnosed Date Resolved Date Abnormal glucose tolerance i n mother complicating 04/19/2023 08/31/2023 Overview (04/19/2023): Failed early glucola. 3hr GTT ordered documented as of this encounter (statuses as of 08/14/2024) Immunizations Name Administration Dates Next Due DTP [...] money to get more. 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 [place] [phone] Health Maintenance Due Date Last Done Comments [...] this encounter Medical Devices Implanted Type Area Supervisor Communications And Signals Device Identifier Shelf Expiration Date Model / Serial / Lot Stent Angulo 4fr 11cm - [id number] Implanted:Qty : 1 on 02/08/2024 by Jeffrey Kerr MD at OR [facility] [employer] [id number] 08/16/2028 [id number] / / [id number] Port Implant W8f Poly Cath - [id number] Implanted:Qty : 1 on 05/02/2024 by Iam Curry MD at OR [facility] Right: Chest CR BARD : PERIPHERAL VASCULAR [id number] 05/17/2025 [id number] / / [id number] documented as of this encounter Care Teams Trust Mail Clerk Relationship Specialty Start Date End Date Malinda Owens CRNP [address] [facility] [place] [address] PCP - General Nurse Practitioner 09/20/23 documented as of this encounter
--- OUTSIDE RECORDS SUMMARY | 2024-09-05 14:24 | External Medical Summary | Summary of Care ---
Author Name Unknown Organization [facility] Address [address] [place] [address] Phone [phone] Care Team Providers Care Lamp Cleaner Street Light Name Role Phone Malinda Owens Primary Care Provider [phone] Reason for Visit * Reason Comments Re-Check Treatment Encounter Details Date Type Department Care Team (Late st Contact Info) Description 08/14/2024 10:00 AM EST Office Visit Hematology/Oncology Rafael Amato [place] [facility] [place] [phone] Kanu Maravilla MD 200 [facility] [place] [address] Malignant neoplasm of upper-outer quadrant of left [...] in Current Health. Plans to pick up attendant meter from pharmacy today. Instructions provided to [...] and class I obesity. Per review of INDUCTION MACHINE OPERATOR documentation of 09/25/23, blood glucose [...] Recommend nutrition consult with RDN (Registered Dietitian Unitizer). Lifestyle changes are also indicated including optimizing [...] and folate levels and referral to a construction project mgr. If hemoglobin levels are below 8 g/dl, we recommend Maternal Medicine ultrasound for growth every 4 weeks after 24 weeks. Consider a blood transfusion if hemoglobin levels fall below 6 g/dL. ([employer] [facility] Practice Bulletin Number 95, December,). Consider Venofer [...] money to get more. 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 Not on file Not on file documented as of this encounter Last Filed Vital Signs Vital Sign Reading Time Taken Comments Blood Pressure - - Pulse 93 08/14/2024 10:00 AM EST Temperature 36.7 C (98.1 F) 08/14/2024 10:[address] Respiratory Rate - - Oxygen Saturation 94% 08/14/2024 10:00 AM EST Inhaled Oxygen Concentration - - Weight 91 kg (200 lb 9.6 oz) 08/14/2024 10:00 AM EST Height - - Body Mass Index 33.38 07/24/2024 8:04 AM EST documented in this encounter Progress Notes * Kanu Maravilla MD - 08/14/2024 10:00 AM EST Hematology/Oncology Outpatient Clinic note [facility] [address] [facility] [place] [address] NAME: Yuli Gutierrez :1995 29-year-old female, DIAGNOSIS: Left Triple Negative Breast Cancer Cancer Staging Clinical Stage 1 - T2 N0 Genetic Clinic evaluation at [facility], as per the patient she is negative for the known mutations. Former patient of Dr. Ng CURRENT TREATMENT: Currently receiving neoadjuvant chemotherapy KEYNOTE 522 as follows ( 05/08/2024 - ) Phase 1: - Keytruda 200 mg every 3 weekly x 4 - Paclitaxel 80 mg/m weekly x 12 - Carboplatin at AUC of 1.5 every weekly x 12 Phase 2: -Keytruda 200 mg every 3 weekly x4 -Adriamycin 60 mg/m every 3 weekly x4 - cyclophosphamide 600 mg/m every 3 weekly x4. Surgery Phase 3: -Keytruda 200 mg every 3 weekly x 9 08/14/2024 --> she is here for phase 2 treatment, cycle # 1 day 8.( treatment delayed because of low ANC of about 400 by 1 week. - Next week will repeat blood workup and will proceed with the treatment after improvement of the blood counts. -she is at high-risk for febrile neutropenia she will receive prophylactic Pegfilgrastim. -Lupron every monthly. DIAGNOSTIC WORKUP: [place] lump in the left breast in 02/2024. Bilateral breast diagnostic mammogram and left breast sonogram on 04/06/2024: - Left breast --> Hypoechoic mass at 2-3 o'clock position measuring about 1.8 x 1.1 x 1.7 cm - Right breast unremarkable. - No axillary lymphadenopathy on the left side. Left breast 2/3 o'clock mass biopsy (04/15/2024) - Invasive breast cancer, no special type, grade 3. - ER and SD receptor negative, Her2/trent Negative by IHC. PET-CT scan done on 05/01/2024: - FDG avid left breast mass measuring 2.1 x 2.2 cm SUV of 13.2 - no FDG avid exactly, mediastinal lymphadenopathy, noted FDG avid disease noted anywhere else. Bilateral breast MRI on 04/06/2024: - Left breast mass measuring 2.8 x 2.3 x 2.3 cm. - No axillary or intramammary lymphadenopathy right breast extreme fibroglandular tissue. OTHER IMPORTANT HISTORY: - last was about 9 months back.. Family history: - family history of colon cancer (MGM, 80) and early breast cancer (MGM sister, 35) INTERVAL HISTORY: She has come the clinic for the follow-up, accompanied by her mom. Currently receiving Keytruda, Paclitaxel and carboplatin, she completed 1st phase of the treatment, has some neuropathy in the lowerextremity and to some extent upper extremities, for last few days she was not feeling quite well, felt to be more dehydrated, receiving IV hydration for the last 2 days, she says that she is not seenby a big improvement after IV hydration, some leg cramps lately in both legs, no swelling, no upperextremity edema, no cardiac or pulmonary symptoms, good appetite, she had diarrhea, responded well with the Lomotil therapy. Current weight around 200 lb which is stable. She is also on Lupron. No bleeding from the sites, no abdominal symptoms. No headache. Past Medical History: Diagnosis Date History of gestational diabetes Motion sickness Past Surgical History: Procedure Laterality Date DENTAL SURGERY PROCEDURE NEC Age 12 ERCP, DIAGNOSTIC, SPECIMEN COLLECTION N/A 02/08/2024 choledocholithiasis, complete removal/one plastic pancreatic stent placed into ventral pancreatic duct/ENDOSCOPIC RETROGRADE CHOLANGIOPANCREATOGRAPHY (ERCP) DIAGNOSTIC performed by Jeffrey Kerr MD at OR [facility] INSER TUNN ACC DEV;5 YRS/OLDER Right 05/02/2024 INSERT TUNNELED CENTRAL VENOUS ACCESS WITH SUBQ PORT performed by Iam Curry MD at OR [facility] US GUIDED BREAST BIOPSY LEFT Left 04/15/2024 Current Outpatient Medications Medication Sig Dispense Refill 19 29-1 MG Oral Tablet Chewable Take by mouth. (Patient not taking: Reported on 05/02/2024) Famotidine 20 MG Oral Tablet (Pepcid) Take by mouth 1 Tablet 12 hours prior to paclitaxel infusion.Do not start before May 06, 2024. (Patient not taking: Reported on 05/02/2024 Do not start before May 06, 2024.) 12 Tablet 0 Prochlorperazine Maleate 10 MG Oral Tablet (Compazine) Take 1 Tablet by mouth every 6 hours as needed for Nausea. Do not start before May 06, 2024. 30 Tablet 5 Lidocaine-Prilocaine 2.5-2.5 % External Cream (Emla) APPLY TO SKIN OVER MEDIPORT & COVER 1HR PRIOR TO ACCESSING. 30 g 0 Loratadine 10 MG Oral Tablet (Claritin) Take 1 tablet by mouth x5 days starting the day before fulphila injection 20 Tablet 0 dexAMETHasone 4 MG Oral Tablet (Decadron) Take two tablets the night before and morning of each chemotherapy treatment 40 Tablet 0 Ondansetron HCl 8 MG Oral Tablet (Zofran) Take 1 Tablet by mouth every 8 hours as needed for Nausea. 30 Tablet 3 Phenazopyridine HCl 200 MG Oral Tablet (Pyridium) Take 1 Tablet by mouth in the morning and 1 Tablet at noon and 1 Tablet before bedtime. After meals.. 6 Tablet 0 Diphenoxylate-Atropine 2.5-0.025 MG Oral Tablet (Lomotil) Take 1 Tablet by mouth 4 times a day as needed for Diarrhea. 30 Tablet 0 oxyBUTYnin Chloride 5 MG Oral Tablet (Ditropan) Take 1 Tablet by mouth in the morning and 1 Tablet at noon and 1 Tablet before bedtime. 30 Tablet 0 No current facility-administered medications for this visit. Facility-Administered Medications Ordered in Other Visits Medication Dose Route Frequency Provider Last Rate Last Admin hEParin 100 UNIT/ML Lock Flush inj 500 Units 5 mL IV Lock PRN Kanu Maravilla MD sodium chloride 0.9 % flush central line 10 mL 10 mL IV Push PRN Kanu Maravilla MD 20 mL at 08/13/24 5719 Family History Problem Relation Name Age of Onset No Known Problems Mother Diabetes Father Colon cancer Grandmother (Maternal) Other (old age) Grandfather (Maternal) Heart attack Grandfather (Paternal) Social History Socioeconomic History Marital status: Spouse name: Not on file Number of children: Not on file Years of education: Not on file Highest education level: Not on file Occupational History 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 (Adult - for ages 18 years and over): No Does your family have trouble paying for medicine? (Household - for ages 0-17 years): Not on file Food Insecurity: No Food Insecurity (03/26/2024) Food Insecurity Worried About Running Out of Food in the Last Year: Never true Ran Out of Food in the Last Year: Never true Do you need food for this week? (Adult - for ages 18 years and over): No Transportation Needs: No Transportation Needs (03/26/2024) Transportation Needs Do you have trouble getting a ride to medical visits or work? (Adult - for ages 18 years and over):Not on file Does your family have a hard time getting a ride to doctors visits? (Household - for ages 0-17 years): Not on file Has lack of transportation kept you from medical appointments, meetings, work, or from getting things needed for daily living? Check all that apply. (Adult - for ages 18 years and over): No Do you (or your family) have trouble finding or paying for a ride (transportation)? (Household - for ages 0-17 years): Not on file Social Connections: Socially Integrated (03/26/2024) Social Connections How often do you feel lonely or isolated from those around you? (Adult - for ages 18 years and over): Never Housing Stability: Low Risk (03/26/2024) Housing Stability Do you currently live in a long-term or have no steady place to sleep at night? (Adult - for ages 18 years and over): No Do you think you are at risk of becoming homeless? (Adult - for ages 18 years and over): Not on file Does your family worry about paying for your home or becoming homeless? (Household - for ages 0-17 years): Not on file Are you homeless or worried that you might be in the future? (Adult - for ages 18 years and over): No Are you (or your family) homeless or worried that you might be in the future? (Household - for ages0-17 years): Not on file On exam: Pulse 93 | Temp 36.7 C (98.1 F) (Tympanic) | Wt 91 kg (200 lb 9.6 oz) | SpO2 94% | BMI 33.38 kg/m | BSA 2.04 m Constitutional: Patient is alert, cooperative and oriented x 3. Well built female, Patient is in noacute distress. HEENT: No icterus, no pallor, Throat and pharynx normal. Sinuses are non-tender. Neck: Supple and without lymphadenopathy or masses. No JVD. No Palpable supraclavicular lymph nodes. Lungs: Clear to auscultation. Bilateral symmetric air entry. No wheezing or rhonchi. Cardiovascular: Normal heart sounds, no murmurs.Regular rate and rhythm. Abdomen: Soft, nontender, no hepatomegaly, no splenomegaly. Bowel sounds are normal. Neurological: No gross focal neurological deficit; walks with a normal gait. Extremities: No finger clubbing, No cyanosis. No leg edema. Skin:: No skin rash. SPINE: No spinal or paraspinal tenderness. LABS: Blood workup done on 08/14/2024: -WBC 4700 -ANC 400 - Hemoglobin and hematocrit - 10.3/30.4, Platelet count [id number] -BUN/Creat: 16/0.8, Calcium 9.4, normal LFT. IMAGING: As described above. ASSESSMENT AND PLAN: 29-year-old, premenopausal female, Left breast triple negative breast cancer, T2 primary tumor, no axilla lymph node involvement PET-CT scan negative for distant metastatic disease. As per the patient, genetic Clinic evaluation done at [facility], it is negative. Currently receiving neoadjuvant chemotherapy with Keynote 522 protocol. Currently completedn phase 1 of the treatment, (Paclitaxel, carboplatin, Keytruda) . Now she has some tingling and numbness of the extremities she has she is expected with the recent Paclitaxel treatment She is here for start of phase 2 treatment but reviewed blood workup done today, ANC is around 400 so would like to hold the treatment, she is also not feeling quite well, no fever at this time. For last 2 days she has received IV hydration. Would like to delay the treatment by 1 week and with the improvement blood count, will resume the treatment She will receive Keytruda, Adriamycin cyclophosphamide, she is at high-risk for febrile neutropenia, she will receive prophylactic Pegfilgrastim. Will continue Lupron every monthly as we planned. Will see her in about 4 weeks ( before the 2nd cycle of phase 2) Dr. Kanu Maravilla Hem/Onc (This note was completed using the dictation program Fluency Direct. As such, there may be misspellings word substitutions, or other variations that should not change the essence of the clinical content of this encounter note. If there is need for further clarification, please direct questions to the provider listed above.) documented in this encounter Nursing Notes * Em Caballero MED ASSIST - 08/14/2024 10:01 AM EST Patient identifed by name and birthdate Do you have any concerns about pain management for today's visit? Yes. Patient instructed to discuss pain concerns with provider during the visit today Living Will or Advance Directive for Health Care as noted on the problem list. [facility] is a way you can talk to your provider on line through e-mail. Would you like to sign up? I can activate it for you? ALREADY ACTIVE Filed Vitals: 08/14/24 1000 Pulse: 93 Temp: 36.7 C (98.1 F) TempSrc: Tympanic SpO2: 94% Weight: 91 kg (200 lb 9.6 oz) Patient was instructed to not get up on the exam table/exam chair until directed and assisted by their provider; patient is to remain seated in the chair/ wheelchair/ exam table/ exam chair for fall prevention and safety reasons. Patient is aware to have assistance to step down off exam table/exam chair with personnel. Patient voiced full comprehension of instructions. documented in this encounter Plan of Treatment Upcoming Encounters Date Type Department Care Team (Late st Contact Info) Description 08/21/2024 8:45 AM EST Hem/Onc Treatment Hematology/Oncology Treatment, [place] [address] [place] [phone] [place], Chair 3 Hem Onc [facility] 200 [facility] [place] [address] 09/11/2024 8:00 AM EDT Office Visit Hematology/Oncology Rafael Amato [address] [place] [address] Gabby Zavala CRNP [address] [place] [address] Health Maintenance Due Date Last Done Comments [...] this encounter Medical Devices Implanted Type Area Dry House Operator Device Identifier Shelf Expiration Date Model / Serial / Lot Stent Angulo 4fr 11cm - [id number] Implanted:Qty : 1 on 02/08/2024 by Jeffrey Kerr MD at OR [facility] [employer] [id number] 08/16/2028 [id number] / / [id number] Port Implant W8f Poly Cath - [id number] Implanted:Qty : 1 on 05/02/2024 by Iam Curry MD at OR [facility] Right: Chest CR BARD : PERIPHERAL VASCULAR [id number] 05/17/2025 [id number] / / [id number] documented as of this encounter Visit Diagnoses [...] Dehydration documented in this encounter Care Teams Lamp Cleaner Street Light Relationship Specialty Start Date End Date Malinda Owens CRNP [address] [place] [address] PCP - General Nurse Practitioner 09/20/23 documented as of this encounter
--- OUTSIDE RECORDS SUMMARY | 2024-09-05 14:24 | External Medical Summary | Summary of Care ---
Author Name Unknown Organization [facility] Address [address] [place] [facility] [place] [address] Phone [phone] Care Team Providers Care Beauty Operator Name Role Phone Malinda Owens Primary Care Provider [phone] Reason for Visit * Reason Comments Chemotherapy Chemo held Medication Administration Lupron injecti on * Episode Based Medications (Routine) - Authorized Specialty Diagnoses / Procedures Referred By Contac t Referred To Contact Diagnoses Malignant neoplasm of upper-outer quadrant of left breast in female, estrogen receptor negative (HCC) Encounter for fertility preservation procedure Suppression of ovarian secretion Procedures LA LEUPROLIDE ACETATE /3.75 MG Em Ng MD Hematology/Oncology Treatment, [address] [address] Phone: tel: fax: Referral ID Status Reason Start Date Expiration Date V isits Requested Visits Authorized [id number] Authorized 05/08/2024 06/16/2099 [id number] Encounter Details Date Type Department Care Team (Latest Contact Info) Description 08/14/2024 10:30 AM EST Hem/Onc Treatment Hematology/Oncology Treatment, [address] [address] [place], Chair 7 Hem Onc [address] [address] Malignant neoplasm of upper-outer quadrant [...] complete. Enrolled in Current Health. Plans to waste picker meter from pharmacy today. Instructions provided [...] and class I obesity. Per review of MUSHROOM FARMER documentation of 09/25/23, blood glucose values have [...] Recommend nutrition consult with RDN (Registered Dietitian Rides Attendant). Lifestyle changes are also indicated including optimizing [...] folate levels and referral to a senior business manager. If hemoglobin levels are below 8 g/dl, we recommend Maternal Medicine ultrasound for growth every 4 weeks after 24 weeks. Consider a blood transfusion if hemoglobin levels fall below 6 g/dL. ([employer] Sales Manager Practice Bulletin Number 95, December,). Consider [...] money to get more. Never true 03/26/2024 [place] Depression Scale Answer Date Recorded [place] Depression Scale Total 6 12/11/2023 The thought [...] 8:45 AM EST Hem/Onc Treatment Hematology/Oncology Treatment, [place] [address] [place] [address] [place], Chair 3 Hem Onc [facility] 200 [facility] [place] [address] 09/11/2024 8:00 AM EDT Office Visit Hematology/Oncology [facility] [place] 200 [facility] [place] [address] Gabby Zavala CRNP 400 [facility] [place] [address] Health Maintenance Due Date Last Done Comments [...] this encounter Medical Devices Implanted Type Area Java Programmer Device Identifier Shelf Expiration Date Model / Serial / Lot Therese Angulo 4fr 11cm - [id number] Implanted:Qty : 1 on 02/08/2024 by Jeffrey Kerr MD at OR [facility] [employer] [id number] 08/16/2028 [id number] / / [id number] Port Implant W8f Poly Cath - [id number] Implanted:Qty : 1 on 05/02/2024 by Iam Curry MD at OR [facility] Right: Chest CR BARD : PERIPHERAL VASCULAR [id number] 05/17/2025 [id number] / / [id number] documented as of this encounter Visit Diagnoses [...] Left documented in this encounter Care Teams Beauty Operator Relationship Specialty Start Date End Date Malinda Owens CRNP [address] [place] [address] PCP - General Nurse Practitioner 09/20/23 documented as of this encounter
--- OUTSIDE RECORDS SUMMARY | 2024-09-05 14:24 | External Medical Summary | Summary of Care ---
Author Name Unknown Organization [facility] Address [address] [place] [facility] [address] Phone [phone] Care Team Providers Care Director Economic Name Role Phone Malinda Owens Primary Care Provider [phone] Reason for Visit * Reason Comments Chemotherapy Chemo held Medication Administration Lupron injecti on * Episode Based Medications (Routine) - Authorized Specialty Diagnoses / Procedures Referred By Contac t Referred To Contact Diagnoses Malignant neoplasm of upper-outer quadrant of left breast in female, estrogen receptor negative (HCC) Encounter for fertility preservation procedure Suppression of ovarian secretion Procedures SD LEUPROLIDE ACETATE /3.75 MG Em Ng MD Hematology/Oncology Treatment, [address] [address] Phone: tel: fax: Referral ID Status Reason Start Date Expiration Date V isits Requested Visits Authorized [id number] Authorized 05/08/2024 06/16/2099 [id number] Encounter Details Date Type Department Care Team (Latest Contact Info) Description 08/14/2024 10:30 AM EST Hem/Onc Treatment Hematology/Oncology Treatment, [address] [address] [place], Chair 7 Hem Onc [address] [address] Malignant neoplasm of upper-outer quadrant of left breast in female, estrogen receptor negative (HCC)*; Encounter for fertility preservation procedure; Suppression of ovarian secretion Allergies No known active allergiesdocumented as of this encounter (statuses as of 08/25/2024) Medications 29-1 MG Oral Tablet Chewable Take [...] as of this encounter (statuses as of 08/25/2024) Active Problems Problem Noted Date Diagnosed Date [...] complete. Enrolled in Current Health. Plans to filler picker meter from pharmacy today. Instructions provided [...] and class I obesity. Per review of COMMUNICATIONS OFFICER documentation of 09/25/23, blood glucose values have [...] Recommend nutrition consult with RDN (Registered Dietitian Landscape Painter). Lifestyle changes are also indicated including optimizing [...] and folate levels and referral to a engagement liaison. If hemoglobin levels are below 8 g/dl, we recommend Maternal Medicine ultrasound for growth every 4 weeks after 24 weeks. Consider a blood transfusion if hemoglobin levels fall below 6 g/dL. ([employer] Drop Wire Aligner Practice Bulletin Number 95, December,). Consider Venofer [...] as of this encounter (statuses as of 08/25/2024) Resolved Problems Problem Noted Date Diagnosed Date Resolved Date Abnormal glucose tolerance i n mother complicating 04/19/2023 08/31/2023 Overview (04/19/2023): Failed early glucola. 3hr GTT ordered documented as of this encounter (statuses as of 08/25/2024) Immunizations Name Administration Dates Next Due DTP [...] money to get more. 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 Maravlila, chemo held due to ANC 0.4. Chemo [...] 11:15 AM EDT Hem/Onc Treatment Hematology/Oncology Treatment, [place] [facility] [address] [place], Chair [address] Hem Onc [address] [place] [address] 09/11/2024 8:00 AM EDT Office Visit Hematology/Oncology [facility] [place] 200 [facility] [place] [address] Gabby Zavala CRNP 400 [facility] [place] [address] Health Maintenance Due Date Last Done Comments [...] this encounter Medical Devices Implanted Type Area Manager Energy Device Identifier Shelf Expiration Date Model / Serial / Lot Therese Angulo 4fr 11cm - [id number] Implanted:Qty : 1 on 02/08/2024 by Jeffrey Kerr MD at OR [facility] [employer] [id number] 08/16/2028 [id number] / / [id number] Port Implant W8f Poly Cath - [id number] Implanted:Qty : 1 on 05/02/2024 by Iam Curry MD at OR [facility] Right: Chest CR BARD : PERIPHERAL VASCULAR [id number] 05/17/2025 [id number] / / [id number] documented as of this encounter Visit Diagnoses [...] Left documented in this encounter Care Teams Director Economic Relationship Specialty Start Date End Date Malinda Owens CRNP [address] [place] [address] PCP - General Nurse Practitioner 09/20/23 documented as of this encounter
--- OUTSIDE RECORDS SUMMARY | 2024-09-05 14:25 | External Medical Summary ---
Author Name Unknown Address Unknown Organization K09:[facility] [place] [address] Laboratory Report Ordering Provider Test Date Status JASMINE JANSEN 08/14/2024 09:38:05 Final Observation Date Value Abnormality Reference (Units ) Status SYNC LEUKOCYTES IN BLOOD BY AUTOMATED COUNT 08/14/2024 09:38:05 4.74 4.00-10.80 (K/uL) Final Segs 08/14/2024 09:38:05 8.5 Below low normal 40.0-75.0 (%) Final Lymphs % 08/14/2024 09:38:05 69.8 Above high normal 18.0-42.0 (%) Final Monos 08/14/2024 09:38:05 19.8 Above high normal 1.0-11.0 (%) Final Eosinophils 08/14/2024 09:38:05 1.5 0.0-6.0 (%) Final Basos 08/14/2024 09:38:05 0.4 0.0-2.0 (%) Final Absolute Segs 08/14/2024 09:38:05 0.40 Below low normal 1.80-7.70 (K/uL) Final Lymphs, absolute 08/14/2024 09:38:05 3.31 1.00-4.80 (K/ul) Final Monos, Abs 08/14/2024 09:38:05 0.94 0.00-1.10 (K/uL) Final Eos, Abs 08/14/2024 09:38:05 0.07 0.00-0.70 (K/uL) Final Basos, Abs 08/14/2024 09:38:05 0.02 0.00-0.20 (K/uL) Final Performing Location [facility] [place] [address]
--- OUTSIDE RECORDS SUMMARY | 2024-09-05 14:25 | External Medical Summary | Summary of Care ---
Author Name Unknown Organization [facility] Address [address] [place] [address] Phone [phone] Care Team Providers Care Junior Software Engineer Name Role Phone Malinda Owens Primary Care Provider [phone] Reason for Visit * Reason Comments Chemotherapy C4 D15 Carbo Taxol * Episode Based Medications (Routine) - Authorized Specialty Diagnoses / Procedures Referred By Contac t Referred To Contact Diagnoses Malignant neoplasm of upper-outer quadrant of left breast in female, estrogen receptor negative (HCC) Encounter for antineoplastic chemotherapy Encounter for prevention of neutropenia due to chemotherapy Procedures NY DOXORUBIC HCL 10 MG VL CHEMO [place] CARBOPLATIN INJECTION [place] FOSAPREPITANT INJECTION [place] INJ PEMBROLIZUMAB NY INJECTION, FULPHILA NY PACLITAXEL INJECTION [place] INJ CYCLOPHOSPHAMD AUROMEDIC [place] PALONOSETRON HCL Em Ng MD Hematology/Oncology Treatment, [address] [address] Phone: tel: fax: Referral ID Status Reason Start Date Expiration Date V isits Requested Visits Authorized [id number] Authorized 04/30/2024 06/17/[phone] Encounter Details Date Type Department Care Team (Latest Contact Info) Description 07/31/2024 8:45 AM EST Hem/Onc Treatment Hematology/Oncolog y Treatment, [address] [address] [place] Chair 7 Hem Onc [address] [place] [address] Malignant neoplasm of upper-outer quadrant of left breast in female, estrogen receptor negative (HCC)*; Encounter for antineoplastic chemotherapy; Encounter for prevention of neutropenia due to chemotherapy Allergies No known active allergiesdocumented as of this encounter (statuses as of 08/07/2024) Medications 19 29-1 MG Oral Tablet Chewable [...] as of this encounter (statuses as of 08/07/2024) Active Problems Problem Noted Date Diagnosed Date [...] complete. Enrolled in Current Health. Plans to greens picker meter from pharmacy today. Instructions provided [...] and class I obesity. Per review of HYDROTECHNICAL SPECIALIST documentation of 09/25/23, blood glucose values have [...] Recommend nutrition consult with RDN (Registered Dietitian Rodeo Rider). Lifestyle changes are also indicated including optimizing [...] and folate levels and referral to a diagnostic imaging manager. If hemoglobin levels are below 8 g/dl, we recommend Maternal Medicine ultrasound for growth every 4 weeks after 24 weeks. Consider a blood transfusion if hemoglobin levels fall below 6 g/dL. ([employer] Bulletin Number 95, December,). Consider Venofer [...] as of this encounter (statuses as of 08/07/2024) Resolved Problems Problem Noted Date Diagnosed Date Resolved Date Abnormal glucose tolerance i n mother complicating 04/19/2023 08/31/2023 Overview (04/19/2023): Failed early glucola. 3hr GTT ordered documented as of this encounter (statuses as of 08/07/2024) Immunizations Name Administration Dates Next Due DTP [...] money to get more. 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 Not on file Not on file [...] Team (Late st Contact Info) Description 08/14/2024 9:00 AM EST Hem/Onc Treatment Hematology/Oncology Treatment, [address] [place] [phone] [place], Chair 7 Hem Onc [place] [address] [address] [place] [id number] 08/28/2024 9:00 AM EDT Nurse Only Hematology/Oncology Treatment, [address] [place] [phone] [place], Chair 5 Hem On[address] [place] [address] 08/28/2024 9:30 AM EDT Office Visit Hematology/Oncology [facility] [place] [address] [place], [place] [phone] Gabby Zavala CRNP [address] [facility] [place] [address] 08/28/2024 10:00 AM EDT Hem/Onc Treatment Hematology/Oncology Treatment, [place] [address] [place] [phone] [place], Chair 7 Hem Onc [facility] [address] [facility] [place] [address] Health Maintenance Due Date Last Done Comments COVID-19 Vaccine (#1) 1999 Depression Screening 2006 HPV (Gardasil) Vaccine (3 - 3-dose series) 02/05/2013 11/13/2012, 03/21/2012 Pneumococcal Vaccine: Pediatrics (0 to 5 Years) and At-Risk Patients (6 to 18 Years and 19+ Years) (1 of 2 - PCV) 2013 HPV/Co-Test 2024 Cervical Cancer Screening 01/29/2026 Pap [...] this encounter Medical Devices Implanted Type Area Telephone Sterilizer Device Identifier Shelf Expiration Date Model / Serial / Lot Stent Kev 4fr 11cm - [id number] Implanted:Qty : 1 on 02/08/2024 by Jeffrey Kerr MD at OR [facility] [employer] [id number] 08/16/2028 [id number] / / [id number] Port Implant W8f Poly Cath - [id number] Implanted:Qty : 1 on 05/02/2024 by Iam Curry MD at OR [facility] Right: Chest CR BARD : PERIPHERAL VASCULAR [id number] 05/17/2025 [id number] / / [id number] documented as of this encounter Procedures Procedure [...] DIFFERENTIAL, TECHNOLOGIST REVIEW (07/31/2024 8:44 AM EST) nRBCs 07/31/2024 10:02 AM EST [facility] 56-02 Blood Venous blood specimen / Unknown Central Line / Unknown 07/31/2024 8:44 AM EST 07/31/2024 9:39 AM EST Kanu Maravilla MD LAB BLOOD ORDERABLES Final Res ult [facility] 56-[address] [place], [place] [id number] * (ABNORMAL) DIFFERENTIAL, AUTOMATED (07/31/2024 8:44 AM EST) WBC 2.59(L) 4.00 - 10.80 K/uL 07/31/2024 10:02 AM [facility] 56-02 Neutrophils % 71.4 40.0 - 75.0 % 07/31/2024 10:02 AM [facility] 56-02 Lymphocytes % 27.0 18.0 - 42.0 % 07/31/2024 10:02 AM [facility] 56-02 Monocytes % 1.2 1.0 - 11.0 % 07/31/2024 10:02 AM [facility] 56-02 Eosinophils % 0.0 0.0 - 6.0 % 07/31/2024 10:02 AM [facility] 56-02 Basophils % 0.4 0.0 - 2.0 % 07/31/2024 10:02 AM [facility] 56-02 Absolute Neutrophils 1.85 1.80 - 7.70 K/uL 07/31/2024 10:02 AM [facility] 56-02 Absolute Lymphocytes 0.70(L) 1.00 - 4.80 K/ul 07/31/2024 10:02 AM [facility] 56-02 Absolute Monocytes 0.03 0.00 - 1.10 K/uL 07/31/2024 10:02 AM [facility] 56-02 Absolute Eosinophils 0.00 0.00 - 0.70 K/uL 07/31/2024 10:02 AM [facility] 56-02 Absolute Basophils 0.01 0.00 - 0.20 K/uL 07/31/2024 10:02 AM [facility] 56-02 Blood Venous blood specimen / Unknown Central Line / Unknown 07/31/2024 8:44 AM EST 07/31/2024 9:39 AM EST Kanu Maravilla MD LAB BLOOD ORDERABLES Final Res ult [facility] [address] [place] [address] * (ABNORMAL) CBC (07/31/2024 8:44 AM EST) WBC 2.59(L) 4.00 - 10.80 K/uL 07/31/2024 10:02 AM EST [facility] 56- RBC 3.39 3.85 - 5.15 M/uL 07/31/2024 10:02 AM [facility] 56 HGB 11.4(L) 12.0 - 15.3 g/dL 07/31/2024 10:02 AM [facility] 56 HCT 34.6(L) 36.0 - 45.2 % 07/31/2024 10:02 AM [facility] 56- MCV 102.1 81.5 - 97.5 fL 07/31/2024 10:02 AM [facility] 56- MCH 33.6 27.0 - 34.0 pg 07/31/2024 10:02 AM [facility] 5602 MCHC 32.9 32.0 - 36.0 g/dL 07/31/2024 10:02 AM [facility] 56-02 RDW 14.6 11.5 - 15.5 % 07/31/2024 10:02 AM [facility] 56-02 PLT 179 140 - 400 K/uL 07/31/2024 10:02 AM [facility] 56- MPV 10.2 6.6 - 11.1 fL 07/31/2024 10:02 AM [facility] 56-02 Blood Venous blood specimen / Unknown Central Line / Unknown 07/31/2024 8:44 AM EST 07/31/2024 9:39 AM EST us Kanu Maravilla MD LAB BLOOD ORDERABLES Final Res ult [facility] [address] [place] [address] * HCG QUALITATIVE, URINE (07/31/2024 8:44 AM EST) HCG Qualitative, Urine Negative Negative 07/31/2024 9:57 AM [facility] 56 Urine Urine specimen obtained by clean catch procedure / Unknown Non-blood Collection / Unknown 07/31/2024 8:44 AM EST 07/31/2024 9:48 AM EST us Kanu Maravilla MD LAB URINE ORDERABLES Final Res ult [facility] 56- [address] [place] [address] * (ABNORMAL) COMPREHENSIVE METABOLIC PANEL (07/31/2024 8:44 AM EST) BUN 16 6 - 20 mg/dL 07/31/2024 10:02 AM [facility] 56- CREATININE 0.7 0.5 - 1.0 mg/dL 07/31/2024 10:02 AM [facility] 56- EGFR >90 >=60 mL/min 07/31/2024 10:02 AM [facility] 56 Comment:eGFR is calculated b ased on the CKD-EPI 2020 equation. SODIUM 140 135 - 146 mmol/L 07/31/2024 10:02 AM [facility] 56- POTASSIUM 4.3 3.5 - 5.1 mmol/L 07/31/2024 10:02 AM [facility] 56- CHLORIDE 104 98 - 107 mmol/L 07/31/2024 10:02 AM [facility] 56- CO2 20(L) 22 - 32 mmol/L 07/31/2024 10:02 AM [facility] 56- ANION GAP 16(H) 7 - 15 mmol/L 07/31/2024 10:02 AM [facility] 56- GLUCOSE 223(H) 70 - 120 mg/dL 07/31/2024 10:02 AM [facility] 56- Albumin 4.5 3.8 - 5.0 g/dL 07/31/2024 10:02 AM [facility] 56- AST 16 10 - 35 U/L 07/31/2024 10:02 AM [facility] 56- Alkaline Phosphatase 80 35 - 130 U/L 07/31/2024 10:02 AM [facility] 56- Bilirubin, Total 0.4 <=1.2 mg/dL 07/31/2024 10:02 AM [facility] 56- CALCIUM 9.6 8.4 - 10.2 mg/dL 07/31/2024 10:02 AM [facility] 56- Protein 7.5 6.0 - 8.3 g/dL 07/31/2024 10:02 AM [facility] 56- ALT 20 10 - 35 U/L 07/31/2024 10:02 AM [facility] 56- Blood Venous blood specimen / Unknown Central Line / Unknown 07/31/2024 8:44 AM EST 07/31/2024 9:38 AM EST us Kanu Maravilla MD LAB BLOOD ORDERABLES Final Res ult [facility] 56- [address] [place] [address] documented in this encounter Visit Diagnoses Diagnosis [...] FROM LIGHT, ONCE, 1 dose, On Bibi 2/13/25 at 1145Indications:Malignant neoplasm of upper-outer quadrant of [...] at 1045, For 1 dose, Restricted per [facility] antiemetic guidelinesIndications:Malig nant neoplasm of upper-outer quadrant of left [...] mL documented in this encounter Care Teams Junior Software Engineer Relationship Specialty Start Date End Date Malinda Owens CRNP [address] [place] [address] PCP - General Nurse Practitioner 09/20/23 documented as of this encounter
--- OUTSIDE RECORDS SUMMARY | 2024-09-05 14:25 | External Medical Summary ---
Author Name Unknown Address Unknown Organization K01:[facility] [place] - [address] [facility] [place] [address] Laboratory Report Ordering Provider Test Date Status ELAINE JAVIERON 08/14/2024 09:38:05 Final Observation Date Value Abnormality Reference (Units ) Status TSH 08/14/2024 09:38:05 2.88 0.27-4.20 (uIU/mL) Final Performing Location [facility] [place] - [address] [facility] [address] [facility] [address]
--- OUTSIDE RECORDS SUMMARY | 2024-09-05 14:25 | External Medical Summary | Summary of Care ---
Author Name Unknown Organization [facility] Address [address] [place] [facility] [place] [address] Phone [phone] Care Team Providers Care Package Sealer Name Role Phone Malinda Owens Primary Care Provider [phone] Reason for Visit * Reason Comments IV Therapy hydration Encounter Details Date Type Department Care Team (Latest Contact Info) Description 08/13/2024 2:30 PM EST Hem/Onc Treatment Hematology/Oncology Treatment, [address] [phone] [place], Chair 5 Hem Onc [address] [address] Malignant neoplasm of upper-outer quadrant of left breast in female, estrogen receptor negative (HCC)*; Dehydration Allergies No known active allergiesdocumented as of this encounter (statuses as of 08/14/2024) Medications 19 29-1 MG Oral Tablet Chewable [...] MG Oral Tablet (Decadron)Indicati ons:Encounter for antineoplastic chemotherapy,Jses christie neoplasm of upper-outer quadrant of left [...] complete. Enrolled in Current Health. Plans to shrimp picker meter from pharmacy today. Instructions provided [...] and class I obesity. Per review of PAVER LAYER documentation of 09/25/23, blood glucose values have [...] Recommend nutrition consult with RDN (Registered Dietitian Quality Process Engineer). Lifestyle changes are also indicated including optimizing [...] and folate levels and referral to a cytologist. If hemoglobin levels are below 8 g/dl, we recommend Maternal Medicine ultrasound for growth every 4 weeks after 24 weeks. Consider a blood transfusion if hemoglobin levels fall below 6 g/dL. ([employer] Practice Bulletin Number 95, December,). Consider Venofer [...] money to get more. 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 Patient tolerated well. Port needle flushed with 10 ml NSS, [...] Patient left facility in stable condition. * Jaqueline Arenas RN - 08/13/2024 3:40 PM EST Chair 10 Patient here for hydration. She continues to complain of feeling significant fatigue, dizziness and"feeling like [she'll] pass out". Patient instructed on use of heat in chair. Patient shown how to operate the heat [...] Team (Late st Contact Info) Description 08/14/2024 9:30 AM EST Nurse Only Hematology/Oncology Treatment, [place] [address] [place] [phone] [place], Chair 5 Hem Onc [address] [facility] [place] [address] 08/14/2024 10:00 AM EST Office Visit Hematology/Oncology [facility] [address] [facility] [place] [phone] Kanu Maravilla MD [address] [facility] [place] [address] 08/14/2024 10:30 AM EST [facility] [address] [facility], [place] [phone] [place], Chair 7 Hem Onc [address]enery [address] [facility] [place], [place] [address] Health Maintenance Due Date Last Done Comments [...] this encounter Medical Devices Implanted Type Area Journeyman Carpenter Device Identifier Shelf Expiration Date Model / Serial / Lot Stent Kev 4fr 11cm - [id number] Implanted:Qty : 1 on 02/08/2024 by Jeffrey Kerr MD at OR [facility] [employer] [id number] 08/16/2028 [id number] / / [id number] Port Implant W8f Poly Cath - [id number] Implanted:Qty : 1 on 05/02/2024 by Iam Curry MD at OR [facility] Right: Chest CR BARD : PERIPHERAL VASCULAR [id number] 05/17/2025 [id number] / / [id number] documented as of this encounter Visit Diagnoses [...] over 2 Hours, ONCE, 1 dose, On Sun08/13/24 at 1615Indications:Malignant neoplasm of upper-outer quadrant of left breast in female, estrogen receptor negative (HCC),Dehydration Start Infusion 08/13/2024 3:02 PM EST 1,000 mL 500 mL/hr sodium chloride 0.9 % flush central line 10 mL 10 mL, IV Push, PRN Other, IV Flush, Starting on Sun08/13/24 at 1501, Until Sun08/13/24 at 2102, For 24 hours, Do not flush if lock, PICC, or central line not in place; IV infusing or unable to flush.Indications:Maligna nt neoplasm of upper-outer quadrant of left breast in female, estrogen receptor negative (HCC),Dehydration Given 08/13/2024 4:49 PM EST 20 mL documented in this encounter Care Teams Package Sealer Relationship Specialty Start Date End Date Malinda Owens CRNP [address] [facility] [place] [address] PCP - General Nurse Practitioner 09/20/23 documented as of this encounter
--- OUTSIDE RECORDS SUMMARY | 2024-09-05 14:25 | External Medical Summary | Summary of Care ---
Author Name Unknown Organization [facility] Address [address] [place] [address] Phone [phone] Care Team Providers Care Loan Coordinator Name Role Phone Malinda Owens Primary Care Provider [phone] Reason for Visit * Reason Comments Procedure Labs from port Encounter Details Date Type Department Care Team (Late st Contact Info) Description 08/14/2024 9:30 AM EST Nurse Only Hematology/Oncology Treatment, [address] [phone] [place], Chair 5 Hem On[address] [address] Procedure (Labs from port) Allergies No known active allergiesdocumented as of [...] complete. Enrolled in Current Health. Plans to forklift picker meter from pharmacy today. Instructions provided [...] and class I obesity. Per review of MANAGER RELOCATION documentation of 09/25/23, blood glucose values have [...] Recommend nutrition consult with RDN (Registered Dietitian Marketing Professional). Lifestyle changes are also indicated including optimizing [...] and folate levels and referral to a silk snapper. If hemoglobin levels are below 8 g/dl, we recommend Maternal Medicine ultrasound for growth every 4 weeks after 24 weeks. Consider a blood transfusion if hemoglobin levels fall below 6 g/dL. ([employer] [facility] [employer] [facility] Bulletin Number 95, December,). Consider [...] money to get more. 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 Port accessed without difficulty, + blood return, waste tube drawn, Port needle flushed with 20 ml NSS, dressing applied. Urine specimen obtained and taken to the lab. Patient awaiting provider appointment. documented in this encounter Plan of Treatment Upcoming Encounters Date Type Department Care Team (Late st Contact Info) Description 08/21/2024 8:45 AM EST Hem/Onc Treatment Hematology/[address], [address] [phone] [place], Chair 3 Hem On[address] [place] [address] 09/11/2024 8:00 AM EDT Office Visit Hematology/Oncology [address] [place] [phone] Gabby Zavala CRNP [address] [place] [address] [place] [phone] Pending Results Name Type Priority Associated Diagnoses Date /Time TSH WITH FREE T4 IF INDICATED Lab STAT Malignant neoplasm of upper-outer quadrant of left breast in female, estrogen receptor negative (HCC) 08/14/2024 9:38 AM EST Health Maintenance Due Date Last [...] this encounter Medical Devices Implanted Type Area Component Technician Device Identifier Shelf Expiration Date Model / Serial / Lot Stent Kev 4fr 11cm - [id number] Implanted:Qty : 1 on 02/08/2024 by Jeffrey Kerr MD at OR [facility] [employer] [id number] 08/16/2028 [id number] / / [id number] Port Implant W8f Poly Cath - [id number] Implanted:Qty : 1 on 05/02/2024 by Iam Curry MD at OR [facility] Right: Chest CR BARD : PERIPHERAL VASCULAR [id number] 05/17/2025 [id number] / / [id number] documented as of this encounter Procedures Procedure Name Priority Date/Time Associated Diagnosis Comments DIFFERENTIAL, AUTOMATED STAT 08/14/2024 9:38 AM EST Malignant neoplasm of upper-outer quadrant of left breast in female, estrogen receptor negative (HCC) COMPREHENSIVE METABOLIC PANEL STAT 08/14/2024 9:38 AM EST Malignant neoplasm of upper-outer quadrant of left breast in female, estrogen receptor negative (HCC) CBC STAT 08/14/2024 9:38 AM EST Malignant neoplasm of upper-outer quadrant of left breast in female, estrogen receptor negative (HCC) CBC STAT 08/14/2024 9:38 AM EST Malignant neoplasm of upper-outer quadrant of left breast in female, estrogen receptor negative (HCC) HCG QUALITATIVE, URINE STAT 9:38 AM EST Malignant neoplasm of upper-outer quadrant of left breast in female, estrogen receptor negative (HCC) documented in this encounter Results * (ABNORMAL) DIFFERENTIAL, AUTOMATED (08/14/2024 9:38 AM EST) WBC 4.74 4.00 - 10.80 K/uL 08/14/2024 9:57 AM EST [facility] 56-02 Neutrophils % 8.5(L) 40.0 - 75.0 % 08/14/2024 9:57 AM [facility] 56-02 Lymphocytes % 69.8(H) 18.0 - 42.0 % 08/14/2024 9:57 AM EST [facility] 56-02 Monocytes % 19.8(H) 1.0 - 11.0 % 08/14/2024 9:57 AM EST [facility] 56-02 Eosinophils % 1.5 0.0 - 6.0 % 08/14/2024 9:57 AM EST [facility] 56-02 Basophils % 0.4 0.0 - 2.0 % 08/14/2024 9:57 AM EST [facility] 56-02 Absolute Neutrophils 0.40(L) 1.80 - 7.70 K/uL 08/14/2024 9:57 AM EST [facility] 56-02 Absolute Lymphocytes 3.31 1.00 - 4.80 K/ul 08/14/2024 9:57 AM EST [facility] 56-02 Absolute Monocytes 0.94 0.00 - 1.10 K/uL 08/14/2024 9:57 AM [facility] 56- Absolute Eosinophils 0.07 0.00 - 0.70 K/uL 08/14/2024 9:57 AM [facility] 56- Absolute Basophils 0.02 0.00 - 0.20 K/uL 08/14/2024 9:57 AM [facility] 56- Blood Venous blood specimen / Unknown Venipuncture / Unknown 08/14/2024 9:38 AM EST 08/14/2024 9:52 AM EST us Kanu Maravilla MD LAB BLOOD ORDERABLES Final Res ult [facility] [address]- [address] [place] [address] * (ABNORMAL) CBC (08/14/2024 9:38 AM EST) WBC 4.74 4.00 - 10.80 K/uL 08/14/2024 9:57 AM [facility] 56- RBC 3.02 3.85 - 5.15 M/uL 08/14/2024 9:57 AM [facility] 56- HGB 10.3(L) 12.0 - 15.3 g/dL 08/14/2024 9:57 AM [facility] 56- HCT 30.4(L) 36.0 - 45.2 % 08/14/2024 9:57 AM [facility] 56- MCV 100.7 81.5 - 97.5 fL 08/14/2024 9:57 AM [facility] 56- MCH 34.1 27.0 - 34.0 pg 08/14/2024 9:57 AM [facility] 56- MCHC 33.9 32.0 - 36.0 g/dL 08/14/2024 9:57 AM [facility] 56- RDW 13.6 11.5 - 15.5 % 08/14/2024 9:57 AM [facility] 56- PLT 151 140 - 400 K/uL 08/14/2024 9:57 AM [facility] 56- MPV 9.3 6.6 - 11.1 fL 08/14/2024 9:57 AM EST [facility] 56 Blood Venous blood specimen / Unknown Venipuncture / Unknown 08/14/2024 9:38 AM EST 08/14/2024 9:52 AM EST us Kanu Maravilla MD LAB BLOOD ORDERABLES Final Res ult [facility] 56 [address] [place] [address] * HCG QUALITATIVE, URINE (08/14/2024 9:38 AM EST) HCG Qualitative, Urine Negative Negative 08/14/2024 10:00 AM [facility] 56 Urine Urine specimen obtained by clean catch procedure / Unknown Non-blood Collection / Unknown 08/14/2024 9:38 AM EST 08/14/2024 9:54 AM EST Kanu Maravilla MD LAB URINE ORDERABLES Final Res ult [facility] [address] [place] [address] * COMPREHENSIVE METABOLIC PANEL (08/14/2024 9:38 AM EST) BUN 16 6 - 20 mg/dL 08/14/2024 10:21 AM [facility] 56- CREATININE 0.8 0.5 - 1.0 mg/dL 08/14/2024 10:21 AM [facility] 56- EGFR >90 >=60 mL/min 08/14/2024 10:21 AM [facility] 56 Comment:eGFR is calculated b ased on the CKD-EPI 2020 equation. SODIUM 141 135 - 146 mmol/L 08/14/2024 10:21 AM [facility] 56- POTASSIUM 4.0 3.5 - 5.1 mmol/L 08/14/2024 10:21 AM [facility] 56- CHLORIDE 106 98 - 107 mmol/L 08/14/2024 10:21 AM [facility] 56- CO2 22 22 - 32 mmol/L 08/14/2024 10:21 AM [facility] 56- ANION GAP 13 7 - 15 mmol/L 08/14/2024 10:21 AM [facility] 56- GLUCOSE 83 70 - 120 mg/dL 08/14/2024 10:21 AM [facility] 56- Albumin 4.1 3.8 - 5.0 g/dL 08/14/2024 10:21 AM [facility] 56- AST 23 10 - 35 U/L 08/14/2024 10:21 AM [facility] 56 Alkaline Phosphatase 61 35 - 130 U/L 08/14/2024 10:21 AM [facility] 56- Bilirubin, Total 0.4 <=1.2 mg/dL 08/14/2024 10:21 AM [facility] 56- CALCIUM 9.4 8.4 - 10.2 mg/dL 08/14/2024 10:21 AM [facility] 56 Protein 6.8 6.0 - 8.3 g/dL 08/14/2024 10:21 AM [facility] 56 ALT 19 10 - 35 U/L 08/14/2024 10:21 AM [facility] 56- Blood Venous blood specimen / Unknown Venipuncture / Unknown 08/14/2024 9:38 AM EST 08/14/2024 9:52 AM EST us Kanu Maravilla MD LAB BLOOD ORDERABLES Final Res ult [facility] 56 [address] [place], [place] [id number] documented in this encounter Visit Diagnoses Diagnosis [...] in female, estrogen receptor negative (HCC)- Primary documented in this encounter Administered Medications Active Administered Medications - up to 3 most recent administrations Medication Order MAR Action Action Date Dose Rate Site sodium chloride 0.9 % flush/inj 10 mL 10 mL, IV Push, PRN line flush, Starting on Bibi 08/14/24 at 1035, Until Discontinued, Do not flush if lock, PICC, or central line not in place; IV infusing or unable to flush. For midlines and central lines.Indications:Malignant neoplasm of upper-outer quadrant of left breast in female, estrogen receptor negative (HCC) sodium chloride 0.9 % flush/inj 20 mL 20 mL, IV Push, PRN IV Flush and Lock, Starting on Bibi 08/14/24 at 1035, Until Discontinued, Do not flush if lock, PICC, or [...] breast in female, estrogen receptor negative (HCC) Given 08/14/2024 9:45 AM EST 20 mL documented in this encounter Care Teams Loan Coordinator Relationship Specialty Start Date End Date Malinda Owens CRNP [address] [place] [address] PCP - General Nurse Practitioner 09/20/23 documented as of this encounter
--- OUTSIDE RECORDS SUMMARY | 2024-09-05 14:25 | External Medical Summary ---
Author Name Unknown Address Unknown Organization [id number]:[facility] [place] [place] [address] Laboratory Report Ordering Provider Test Date Status JASMINE JANSEN 08/14/2024 09:38:05 Final Observation Date Value Abnormality Reference (Units ) Status WBC, Total 08/14/2024 09:38:05 4.74 4.00-10.8 0 (K/uL) Final RBC 08/14/2024 09:38:05 3.02 3.85-5.15 (M/uL) Final Hemoglobin 08/14/2024 09:38:05 10.3 Below low normal 12 .0-15.3 (g/dL) Final HCT 08/14/2024 09:38:05 30.4 Below low normal 36. 0-45.2 (%) Final MCV 08/14/2024 09:38:05 100.7 81.5-97.5 (fL) Final MCH 08/14/2024 09:38:05 34.1 27.0-34.0 (pg) Final MCHC 08/14/2024 09:38:05 33.9 32.0-36.0 (g/dL) Final RDW 08/14/2024 09:38:05 13.6 11.5-15.5 (%) Final Platelets 08/14/2024 09:38:05 151 140-400 (K /uL) Final MPV 08/14/2024 09:38:05 9.3 6.6-11.1 ( fL) Final Performing Location [facility] [place] [place] [address]
--- OUTSIDE RECORDS SUMMARY | 2024-09-05 14:25 | External Medical Summary ---
Author Name Unknown Address Unknown Organization K09:[facility] 56-[address] [place] [address] Laboratory Report Ordering Provider Test Date Status JASMINE JANSEN 08/14/2024 09:38:05 Final Observation Date Value Abnormality Reference (Units ) Status BUN 08/14/2024 09:38:05 16 6-20 (mg/dL) Final Creatinine 08/14/2024 09:38:05 0.8 0.5-1.0 (mg/dL) Final Glomerular filtration rate/1.73 sq M.predicted [Volume Rate/Area] in Serum, Plasma or Blood by Creatinine-based formula (CKD-EPI) 08/14/2024 09:38:05 >90 >=60 (mL/min) Final eGFR is calculated based on the CKD-EPI 2020 equation. Sodium 08/14/2024 09:38:05 141 135-146 (m mol/L) Final Potassium 08/14/2024 09:38:05 4.0 3.5-5.1 (m mol/L) Final Cl 08/14/2024 09:38:05 106 98-107 (mm ol/L) Final CO2 08/14/2024 09:38:05 22 22-32 (mmo l/L) Final Anion gap 08/14/2024 09:38:05 13 7-15 (mmol /L) Final Glucose 08/14/2024 09:38:05 83 70-120 (mg /dL) Final Albumin 08/14/2024 09:38:05 4.1 3.8-5.0 (g /dL) Final AST (Aspartate aminotransferase) 08/14/2024 09:38:05 23 10-35 (U/L) Final Alk Phos 08/14/2024 09:38:05 61 35-130 (U/ L) Final Bilirubin, Total 08/14/2024 09:38:05 0.4 <=1 .2 (mg/dL) Final Calcium 08/14/2024 09:38:05 9.4 8.4-10.2 ( mg/dL) Final Protein 08/14/2024 09:38:05 6.8 6.0-8.3 (g /dL) Final ALT (Alanine aminotransferase) 08/14/2024 09:38:05 19 10-35 (U/L) Final Performing Location [facility] [address]- [address] [place] [address]
--- OUTSIDE RECORDS SUMMARY | 2024-09-05 14:25 | External Medical Summary | Summary of Care ---
Author Name Unknown Organization [facility] Address [address] [place] [address] Phone [phone] Care Team Providers Care Concrete Pavement Installer Name Role Phone Malinda Owens AD Primary Care Provider [phone] Encounter Details Date Type Department Care Team (Late st Contact Info) Description 08/12/2024 Orders Only [facility]ology[facility] [address] [facility] [place] [address] Kanu Maravilla MD [address] [place] [place] [address] Malignant neoplasm of upper-outer quadrant of left breast in female, estrogen receptor negative (HCC)*; Dehydration Allergies No known active allergiesdocumented as of this encounter (statuses as of 08/12/2024) Medications 19 29-1 MG Oral Tablet Chewable [...] as of this encounter (statuses as of 08/12/2024) Active Problems Problem Noted Date Diagnosed Date [...] complete. Enrolled in Current Health. Plans to leaf size picker meter from pharmacy today. Instructions provided [...] and class I obesity. Per review of EPIC CUPID ANALYST documentation of 09/25/23, blood glucose values have [...] Recommend nutrition consult with RDN (Registered Dietitian Plywood And Veneer Repairer). Lifestyle changes are also indicated including optimizing [...] and folate levels and referral to a cupola man. If hemoglobin levels are below 8 g/dl, we recommend Maternal Medicine ultrasound for growth every 4 weeks after 24 weeks. Consider a blood transfusion if hemoglobin levels fall below 6 g/dL. ([employer] [facility] [employer] [facility] Bulletin Number 95, December,). Consider [...] as of this encounter (statuses as of 08/12/2024) Resolved Problems Problem Noted Date Diagnosed Date Resolved Date Abnormal glucose tolerance i n mother complicating 04/19/2023 08/31/2023 Overview (04/19/2023): Failed early glucola. 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 documented in this encounter Plan of Treatment Upcoming Encounters Date Type Department Care Team (Late st Contact Info) Description 08/14/2024 9:00 AM EST Hem/Onc Treatment Hematology/[address], [address] [phone] [place], Chair [address] Hem [address] [place] [address] 08/28/2024 9:00 AM EDT Nurse Only Hematology/[address]cology [address] [phone] [place], Chair 5 Hem On[address] [place] [address] 08/28/2024 9:30 AM EDT Office Visit Hematology/Oncology [facility] [address] [phone] Gabby Zavala CRNP [address] [place] [id number] 08/28/2024 10:00 AM EDT Hem/Onc Treatment Hematology/Oncology Treatment, [address], [place] [phone] [place], Chair 7 Hem On[address], [place] [phone] Health Maintenance Due Date Last Done Comments [...] this encounter Medical Devices Implanted Type Area Local Company Refrigerated Truck Driver Device Identifier Shelf Expiration Date Model / Serial / Lot Stent Angulo 4fr 11cm - [id number] Implanted:Qty : 1 on 02/08/2024 by Jeffrey Kerr MD at OR [facility] [employer] [id number] 08/16/2028 [id number] / / [id number] Port Implant W8f Poly Cath - [id number] Implanted:Qty : 1 on 05/02/2024 by Iam Curry MD at OR [facility] Right: Chest CR BARD : PERIPHERAL VASCULAR [id number] 05/17/2025 [id number] / / [id number] documented as of this encounter Visit Diagnoses [...] Dehydration documented in this encounter Care Teams Concrete Pavement Installer Relationship Specialty Start Date End Date Malinda Owens CRNP [address] [place] [address] PCP - General Nurse Practitioner 09/20/23 documented as of this encounter
--- OUTSIDE RECORDS SUMMARY | 2024-09-05 14:25 | External Medical Summary | Summary of Care ---
Author Name Unknown Organization [facility] Address [address] [place] [address] Phone [phone] Care Team Providers Care Investment Officer Name Role Phone Malinda Owens Primary Care [...] PALONOSETRON HCL Em Ng MD Hematology/Oncology Treatment, [address] [address] Phone: tel: fax: Referral ID Status Reason Start Date Expiration Date V isits Requested Visits Authorized [id number] Authorized 04/30/2024 06/17/[phone] Encounter Details Date Type Department Care Team (Latest Contact Info) Description 07/31/2024 8:45 AM EST Hem/Onc Treatment Hematology/Oncolog y Treatment, [address] [phone] [place] Chair 7 Hem On[address] [place] [address] Malignant neoplasm of upper-outer quadrant of [...] and class I obesity. Per review of MEDICAID BILLING SPECIALIST documentation of 09/25/23, blood glucose values [...] Recommend nutrition consult with RDN (Registered Dietitian Manager Psychiatry). Lifestyle changes are also indicated including optimizing [...] and folate levels and referral to a assurance senior manager. If hemoglobin levels are below 8 g/dl, we recommend Maternal Medicine ultrasound for growth every 4 weeks after 24 weeks. Consider a blood transfusion if hemoglobin levels fall below 6 g/dL. ([employer] [facility] [facility] [employer] [facility] Bulletin Number 95, December,). Consider Venofer [...] money to get more. 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 Not [...] 9:00 AM EST Hem/Onc Treatment Hematology/Oncology Treatment, [address] [place] [phone] [place], Chair 7 Hem Onc [place] [address] [address] [place] [address] 08/28/2024 9:00 AM EDT Nurse Only Hematology/Oncology Treatment, [address] [place] [phone] [place], Chair 5 Hem Onc [address] [place] [address] 08/28/2024 9:30 AM EDT Office Visit Hematology/Oncology [facility] [place] [address] [place], [place] [phone] Gabby Zavala CRNP [address] [facility] [place] [address] 08/28/2024 10:00 AM EDT Hem/Onc Treatment Hematology/Oncology Treatment, [place] [address] [place] [phone] [place], Chair 7 Hem Onc [facility] [address] [facility] [place] [address] Health Maintenance Due Date Last Done Comments [...] this encounter Medical Devices Implanted Type Area 7Th Grade Teacher Device Identifier Shelf Expiration Date Model / Serial / Lot Stent Kev 4fr 11cm - [id number] Implanted:Qty : 1 on 02/08/2024 by Jeffrey Kerr MD at OR [facility] [employer] [id number] 08/16/2028 [id number] / / [id number] Port Implant W8f Poly Cath - [id number] Implanted:Qty : 1 on 05/02/2024 by Iam Curry MD at OR [facility] Right: Chest CR BARD : PERIPHERAL VASCULAR [id number] 05/17/2025 [id number] / / [id number] documented as of this encounter Procedures Procedure [...] EST) nRBCs 07/31/2024 10:02 AM EST [facility] 56-02 Blood Venous blood specimen / Unknown Central Line / Unknown 07/31/2024 8:44 AM EST 07/31/2024 9:39 AM EST Kanu Maravilla MD LAB BLOOD ORDERABLES Final Res ult [facility] 56-[address] [place], [place] [phone] * (ABNORMAL) DIFFERENTIAL, AUTOMATED (07/31/2024 8:44 AM EST) WBC 2.59(L) 4.00 - 10.80 K/uL 07/31/2024 10:02 AM [facility] 56-02 Neutrophils % 71.4 40.0 - 75.0 % 07/31/2024 10:02 AM [facility] 56-02 Lymphocytes % 27.0 18.0 - 42.0 % 07/31/2024 10:02 AM [facility] 56-02 Monocytes % 1.2 1.0 - 11.0 % 07/31/2024 10:02 AM [facility] 56-02 Eosinophils % 0.0 0.0 - 6.0 % 07/31/2024 10:02 AM [facility] 56-02 Basophils % 0.4 0.0 - 2.0 % 07/31/2024 10:02 AM [facility] 56-02 Absolute Neutrophils 1.85 1.80 - 7.70 K/uL 07/31/2024 10:02 AM [facility] 56-02 Absolute Lymphocytes 0.70(L) 1.00 - 4.80 K/ul 07/31/2024 10:02 AM [facility] 56-02 Absolute Monocytes 0.03 0.00 - 1.10 K/uL 07/31/2024 10:02 AM [facility] 56-02 Absolute Eosinophils 0.00 0.00 - 0.70 K/uL 07/31/2024 10:02 AM [facility] 56-02 Absolute Basophils 0.01 0.00 - 0.20 K/uL 07/31/2024 10:02 AM [facility] 56-02 Blood Venous blood specimen / Unknown Central Line / Unknown 07/31/2024 8:44 AM EST 07/31/2024 9:39 AM EST Kanu Maravilla MD LAB BLOOD ORDERABLES Final Res ult [facility] 56 [address] [place] [address] * (ABNORMAL) CBC (07/31/2024 8:44 AM EST) WBC 2.59(L) 4.00 - 10.80 K/uL 07/31/2024 10:02 AM EST [facility] 56- RBC 3.39 3.85 - 5.15 M/uL 07/31/2024 10:02 AM [facility] 56 HGB 11.4(L) 12.0 - 15.3 g/dL 07/31/2024 10:02 AM [facility] 56 HCT 34.6(L) 36.0 - 45.2 % 07/31/2024 10:02 AM [facility] 56- MCV 102.1 81.5 - 97.5 fL 07/31/2024 10:02 AM [facility] 56- MCH 33.6 27.0 - 34.0 pg 07/31/2024 10:02 AM [facility] 5602 MCHC 32.9 32.0 - 36.0 g/dL 07/31/2024 10:02 AM [facility] 56-02 RDW 14.6 11.5 - 15.5 % 07/31/2024 10:02 AM [facility] 56-02 PLT 179 140 - 400 K/uL 07/31/2024 10:02 AM [facility] 56- MPV 10.2 6.6 - 11.1 fL 07/31/2024 10:02 AM [facility] 56-02 Blood Venous blood specimen / Unknown Central Line / Unknown 07/31/2024 8:44 AM EST 07/31/2024 9:39 AM EST us Kanu Maravilla MD LAB BLOOD ORDERABLES Final Res ult [facility] [address] [place] [address] * HCG QUALITATIVE, URINE (07/31/2024 8:44 AM EST) HCG Qualitative, Urine Negative Negative 07/31/2024 9:57 AM [facility] 56 Urine Urine specimen obtained by clean catch procedure / Unknown Non-blood Collection / Unknown 07/31/2024 8:44 AM EST 07/31/2024 9:48 AM EST us Kanu Maravilla MD LAB URINE ORDERABLES Final Res ult [facility] 56- [address] [place] [address] * (ABNORMAL) COMPREHENSIVE METABOLIC PANEL (07/31/2024 8:44 AM EST) BUN 16 6 - 20 mg/dL 07/31/2024 10:02 AM [facility] 56- CREATININE 0.7 0.5 - 1.0 mg/dL 07/31/2024 10:02 AM [facility] 56- EGFR >90 >=60 mL/min 07/31/2024 10:02 AM [facility] 56 Comment:eGFR is calculated b ased on the CKD-EPI 2020 equation. SODIUM 140 135 - 146 mmol/L 07/31/2024 10:02 AM [facility] 56- POTASSIUM 4.3 3.5 - 5.1 mmol/L 07/31/2024 10:02 AM [facility] 56- CHLORIDE 104 98 - 107 mmol/L 07/31/2024 10:02 AM [facility] 56- CO2 20(L) 22 - 32 mmol/L 07/31/2024 10:02 AM [facility] 56- ANION GAP 16(H) 7 - 15 mmol/L 07/31/2024 10:02 AM [facility] 56- GLUCOSE 223(H) 70 - 120 mg/dL 07/31/2024 10:02 AM [facility] 56- Albumin 4.5 3.8 - 5.0 g/dL 07/31/2024 10:02 AM [facility] 56- AST 16 10 - 35 U/L 07/31/2024 10:02 AM [facility] 56- Alkaline Phosphatase 80 35 - 130 U/L 07/31/2024 10:02 AM [facility] 56- Bilirubin, Total 0.4 <=1.2 mg/dL 07/31/2024 10:02 AM [facility] 56- CALCIUM 9.6 8.4 - 10.2 mg/dL 07/31/2024 10:02 AM [facility] 56- Protein 7.5 6.0 - 8.3 g/dL 07/31/2024 10:02 AM [facility] 56- ALT 20 10 - 35 U/L 07/31/2024 10:02 AM [facility] 56- Blood Venous blood specimen / Unknown Central Line / Unknown 07/31/2024 8:44 AM EST 07/31/2024 9:38 AM EST us Kanu Maravilla MD LAB BLOOD ORDERABLES Final Res ult [facility] 56- [address] [place] [address] documented in this encounter Visit Diagnoses Diagnosis [...] at 1045, For 1 dose, Restricted per [facility] antiemetic guidelinesIndications:Malig nant neoplasm of upper-outer quadrant [...] mL documented in this encounter Care Teams Investment Officer Relationship Specialty Start Date End Date Malinda Owens CRNP [address] [place] [address] PCP - General Nurse Practitioner 09/20/23 documented as of this encounter
--- OUTSIDE RECORDS SUMMARY | 2024-09-05 14:25 | External Medical Summary ---
Author Name Unknown Address Unknown Organization K09:[facility] [place] [address] Laboratory Report Ordering Provider Test Date Status INDERJITFERRARO 08/14/2024 09:38:05 Final Observation Date Value Abnormality Reference (Units ) Status Screen, Urine 08/14/2024 09:38:05 Negative Negative Final Performing Location [facility] [place] [address]
--- OUTSIDE RECORDS SUMMARY | 2024-09-05 14:25 | External Medical Summary | Summary of Care ---
Author Name Unknown Organization [facility] Address [address] [place] [address] Phone [phone] Care Team Providers Care Professor Of Engineering Name Role Phone Malinda Owens Primary Care Provider [phone] Reason for Visit * Reason Comments Chemotherapy C4 D15 Carbo Taxol * Episode Based Medications (Routine) - Authorized Specialty Diagnoses / Procedures Referred By Contac t Referred To Contact Diagnoses Malignant neoplasm of upper-outer quadrant of left breast in female, estrogen receptor negative (HCC) Encounter for antineoplastic chemotherapy Encounter for prevention of neutropenia due to chemotherapy Procedures [place] DOXORUBIC HCL 10 MG VL CHEMO [place] CARBOPLATIN INJECTION [place] FOSAPREPITANT INJECTION [place] INJ PEMBROLIZUMAB [place] INJECTION, FULPHILA [place] PACLITAXEL INJECTION [place] INJ CYCLOPHOSPHAMD AUROMEDIC [place] PALONOSETRON HCL Em Ng MD Hematology/Oncology Treatment, [address] [address] Phone: tel: fax: Referral ID Status Reason Start Date Expiration Date V isits Requested Visits Authorized [id number] Authorized 04/30/2024 06/17/[phone] Encounter Details Date Type Department Care Team (Latest Contact Info) Description 07/31/2024 8:45 AM EST Hem/Onc Treatment Hematology/Oncolog y Treatment, [address] [phone] [place] Chair 7 Hem Onc [address] [place] [address] Malignant neoplasm of upper-outer quadrant of left breast in female, estrogen receptor negative (HCC)*; Encounter for antineoplastic chemotherapy; Encounter for prevention of neutropenia due to chemotherapy Allergies No known active allergiesdocumented as of this encounter (statuses as of 07/31/2024) Medications 19 29-1 MG Oral Tablet Chewable [...] as of this encounter (statuses as of 07/31/2024) Active Problems Problem Noted Date Diagnosed Date [...] Enrolled in Current Health. Plans to picker meter from pharmacy today. Instructions provided [...] and class I obesity. Per review of EQUINE DENTIST documentation of 09/25/23, blood glucose values have [...] Recommend nutrition consult with RDN (Registered Dietitian Rn Mds). Lifestyle changes are also indicated including optimizing [...] and folate levels and referral to a disulfurizer tender. If hemoglobin levels are below 8 g/dl, we recommend Maternal Medicine ultrasound for growth every 4 weeks after 24 weeks. Consider a blood transfusion if hemoglobin levels fall below 6 g/dL. ([employer] [facility] Bulletin Number 95, December,). Consider Venofer [...] as of this encounter (statuses as of 07/31/2024) Resolved Problems Problem Noted Date Diagnosed Date Resolved Date Abnormal glucose tolerance i n mother complicating 04/19/2023 08/31/2023 Overview (04/19/2023): Failed early glucola. 3hr GTT ordered documented as of this encounter (statuses as of 07/31/2024) Immunizations Name Administration Dates Next Due DTP [...] money to get more. 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 Not on file [...] 9:00 AM EST Hem/Onc Treatment Hematology/Oncology Treatment, [address] [place] [phone] [place], Chair 7 Hem Onc [place] [address] [place] [address] 08/28/2024 9:00 AM EDT Nurse Only Hematology/Oncology Treatment, [address] [place] [phone] [place], Chair 5 Hem Onc [address] [place] [address] 08/28/2024 9:30 AM EDT Office Visit Hematology/Oncology [facility] [place] [address] [place], [place] [phone] Gab[facility] [address] [facility] [place] [address] 08/28/2024 10:00 AM EDT Hem/Onc Treatment Hematology/Oncology Treatment, [place] [address] [place] [phone] [place], Chair 7 Hem Onc [facility] [address] [facility] [place] [address] Health Maintenance Due Date Last Done Comments COVID-19 Vaccine (#1) 1999 Depression Screening 2006 HPV (Gardasil) Vaccine (3 - 3-dose series) 02/05/2013 11/13/2012, 03/21/2012 Pneumococcal Vaccine: Pediat rics (0 to 5 Years) and At-Risk Patients (6 to 18 Years and 19+ Years) (1 of 2 - PCV) 2013 HPV/Co-Test 2024 Cervical Cancer Screening 01/29/2026 Pap Smear 01/29/2026 01/29/2023, 11/17, 07/17/2018, Additional history exists DTap/Tdap Vaccines (9 - Td o r Tdap) 08/13/2033 08/13/2023, 08/22/2019, 09/17/2008, Additional history exists Hepatitis B Vaccine Completed 02/17/1995, 1994, 1994 MENINGOCOCCAL (MENACTRA/MENVEO) Completed 3, 02/02/2010 Influenza Vaccine (FLU shot) Completed 12/2023, 05/17/2023, 08/21/2019, Additional history exists documented as of this encounter Medical Devices Implanted Type Area Cigarette Making Machine Catcher Device Identifier Shelf Expiration Date Model / Serial / Lot Therese Angulo 4fr 11cm - [id number] Implanted:Qty : 1 on 02/08/2024 by Jeffrey Kerr MD at OR [facility] [id number] 08/16/2028 [id number] / / [id number] Port Implant W8f Poly Cath - [id number] Implanted:Qty : 1 on 05/02/2024 by Iam Curry MD at OR [facility] Right: Chest CR BARD : PERIPHERAL VASCULAR [id number] 05/17/2025 [id number] / / [id number] documented as of this encounter Procedures Procedure [...] DIFFERENTIAL, TECHNOLOGIST REVIEW (07/31/2024 8:44 AM EST) nRs 07/31/2024 10:02 AM EST [facility] 56-02 Blood Venous blood specimen / Unknown Central Line / Unknown 07/31/2024 8:44 AM EST 07/31/2024 9:39 AM EST Kanu Maravilla MD LAB BLOOD ORDERABLES Final Res ult [facility] 56-[address] [place] [address] * (ABNORMAL) DIFFERENTIAL, AUTOMATED (07/31/2024 8:44 AM EST) WBC 2.59(L) 4.00 - 10.80 K/uL 07/31/2024 10:02 AM EST [facility] 56-02 Neutrophils % 71.4 40.0 - 75.0 % 07/31/2024 10:02 AM EST [facility] 56-02 Lymphocytes % 27.0 18.0 - 42.0 % 07/31/2024 10:02 AM [facility] 56-02 Monocytes % 1.2 1.0 - 11.0 % 07/31/2024 10:02 AM EST [facility] 56-02 Eosinophils % 0.0 0.0 - 6.0 % 07/31/2024 10:02 AM EST [facility] 56-02 Basophils % 0.4 0.0 - 2.0 % 07/31/2024 10:02 AM EST [facility] 56-02 Absolute Neutrophils 1.85 1.80 - 7.70 K/uL 07/31/2024 10:02 AM EST [facility] 56-02 Absolute Lymphocytes 0.70(L) 1.00 - 4.80 K/ul 07/31/2024 10:02 AM EST [facility] 56-02 Absolute Monocytes 0.03 0.00 - 1.10 K/uL 07/31/2024 10:02 AM EST [facility] 56-02 Absolute Eosinophils 0.00 0.00 - 0.70 K/uL 07/31/2024 10:02 AM [facility] 56-02 Absolute Basophils 0.01 0.00 - 0.20 K/uL 07/31/2024 10:02 AM [facility] 56-02 Blood Venous blood specimen / Unknown Central Line / Unknown 07/31/2024 8:44 AM EST 07/31/2024 9:39 AM EST us Kanu Maravilla MD LAB BLOOD ORDERABLES Final Res ult [facility] 56- [address] [place] [address] * (ABNORMAL) CBC (07/31/2024 8:44 AM EST) Pathologist [facility] WBC 2.59(L) 4.00 - 10.80 K/uL 07/31/2024 10:02 AM [facility] 56- RBC 3.39 3.85 - 5.15 M/uL 07/31/2024 10:02 AM [facility] 56- HGB 11.4(L) 12.0 - 15.3 g/dL 07/31/2024 10:02 AM [facility] 56- HCT 34.6(L) 36.0 - 45.2 % 07/31/2024 10:02 AM [facility] 56- MCV 102.1 81.5 - 97.5 fL 07/31/2024 10:02 AM [facility] 56- MCH 33.6 27.0 - 34.0 pg 07/31/2024 10:02 AM [facility] 56-02 MCHC 32.9 32.0 - 36.0 g/dL 07/31/2024 10:02 AM [facility] 56-02 RDW 14.6 11.5 - 15.5 % 07/31/2024 10:02 AM [facility] 56-02 PLT 179 140 - 400 K/uL 07/31/2024 10:02 AM [facility] 56-02 MPV 10.2 6.6 - 11.1 fL 07/31/2024 10:02 AM [facility] 56-02 Blood Venous blood specimen / Unknown Central Line / Unknown 07/31/2024 8:44 AM EST 07/31/2024 9:39 AM EST us Kanu Maravilla MD LAB BLOOD ORDERABLES Final Res ult [facility] 56- [address] [place] [address] * HCG QUALITATIVE, URINE (07/31/2024 8:44 AM EST) HCG Qualitative, Urine Negative Negative 07/31/2024 9:57 AM [facility] 56 Urine Urine specimen obtained by clean catch procedure / Unknown Non-blood Collection / Unknown 07/31/2024 8:44 AM EST 07/31/2024 9:48 AM EST us Kanu Maravilla MD LAB URINE ORDERABLES Final Res ult [facility] 56- [address] [place], [place] [phone] * (ABNORMAL) COMPREHENSIVE METABOLIC PANEL (07/31/2024 8:44 AM EST) Pathologist [facility] BUN 16 6 - 20 mg/dL 07/31/2024 10:02 AM [facility] 56 CREATININE 0.7 0.5 - 1.0 mg/dL 07/31/2024 10:02 AM [facility] 56 EGFR >90 >=60 mL/min 07/31/2024 10:02 AM [facility] 56 Comment:eGFR is calculated b ased on the CKD-EPI 2020 equation. SODIUM 140 135 - 146 mmol/L 07/31/2024 10:02 AM [facility] 56 POTASSIUM 4.3 3.5 - 5.1 mmol/L 07/31/2024 10:02 AM [facility] 56- CHLORIDE 104 98 - 107 mmol/L 07/31/2024 10:02 AM [facility] 56- CO2 20(L) 22 - 32 mmol/L 07/31/2024 10:02 AM [facility] 56 ANION GAP 16(H) 7 - 15 mmol/L 07/31/2024 10:02 AM [facility] 56- GLUCOSE 223(H) 70 - 120 mg/dL 07/31/2024 10:02 AM [facility] 56 Albumin 4.5 3.8 - 5.0 g/dL 07/31/2024 10:02 AM [facility] 56 AST 16 10 - 35 U/L 07/31/2024 10:02 AM [facility] 56 Alkaline Phosphatase 80 35 - 130 U/L 07/31/2024 10:02 AM [facility] 56- Bilirubin, Total 0.4 <=1.2 mg/dL 07/31/2024 10:02 AM [facility] 56- CALCIUM 9.6 8.4 - 10.2 mg/dL 07/31/2024 10:02 AM [facility] 56- Protein 7.5 6.0 - 8.3 g/dL 07/31/2024 10:02 AM [facility] 56- ALT 20 10 - 35 U/L 07/31/2024 10:02 AM [facility] 56- Blood Venous blood specimen / Unknown Central Line / Unknown 07/31/2024 8:44 AM EST 07/31/2024 9:38 AM EST us Kanu Maravilla MD LAB BLOOD ORDERABLES Final Res ult [facility] [address] [place] [address] documented in this encounter Visit Diagnoses Diagnosis [...] at 1045, For 1 dose, Restricted per [facility] antiemetic guidelinesIndications:Jess christie neoplasm of upper-outer [...] mL documented in this encounter Care Teams Professor Of Engineering Relationship Specialty Start Date End Date Malinda Owens CRNP [address] [place] [address] PCP - General Nurse Practitioner 09/20/23 documented as of this encounter
--- OUTSIDE RECORDS SUMMARY | 2024-09-05 14:25 | External Medical Summary | Summary of Care ---
Author Name Unknown Organization [facility] Address [address] [place] [address] Phone [phone] Care Team Providers Care Medical Technician Name Role Phone Malinda Owens Primary Care Provider [phone] Reason for Visit * Reason Comments Medication Administration Hydration Encounter Details Date Type Department Care Team (Latest Contact Info) Description 08/12/2024 2:30 PM EST Hem/Onc Treatment Hematology/Oncology Treatment, [place] [address] [place] [address] Malignant neoplasm of upper-outer quadrant of left breast in female, estrogen receptor negative (HCC)*; Dehydration Allergies No known active allergiesdocumented as of this encounter (statuses as of 08/13/2024) Medications 29-1 MG Oral Tablet Chewable Take [...] as of this encounter (statuses as of 08/13/2024) Active Problems Problem Noted Date Diagnosed Date [...] complete. Enrolled in Current Health. Plans to supervisor opening and picking meter from pharmacy today. Instructions provided to [...] and class I obesity. Per review of [facility]IEF [facility]IOLOG[facility] documentation of 09/25/23, blood glucose values have [...] Recommend nutrition consult with RDN (Registered Dietitian Quartz Cutter). Lifestyle changes are also indicated including optimizing [...] and folate levels and referral to a brake drum molder. If hemoglobin levels are below 8 g/dl, we recommend Maternal Medicine ultrasound for growth every 4 weeks after 24 weeks. Consider a blood transfusion if hemoglobin levels fall below 6 g/dL. ([employer] [facility] [employer] Practice Bulletin Number 95, December,). Consider Venofer [...] as of this encounter (statuses as of 08/13/2024) Resolved Problems Problem Noted Date Diagnosed Date Resolved Date Abnormal glucose tolerance i n mother complicating 04/19/2023 08/31/2023 Overview (04/19/2023): Failed early glucola. 3hr GTT ordered documented as of this encounter (statuses as of 08/13/2024) Immunizations Name Administration Dates Next Due DTP [...] money to get more. 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 Patient tolerated well. No complaints. Port [...] left facility in stable condition. * Marilyn Burnett, TAMIKO - 08/12/2024 4:31 PM EST Patient here for IV hydration. Patient states she has been feeling dizzy and lightheaded and not feeling herself. VAD accessed without difficulty, + blood return, flushed with 10 ml NSS and dressing applied. Safety and Risk for Injury Patient will [...] potential segovia while using the heat function. Spoke with patient and Dr. Maravilla and patient is agreeable to be scheduled for IV hydration again tomorrow and will see Dr. Maravilla prior to treatment which is scheduled on 08/14/24. documented in this encounter Plan of Treatment Upcoming Encounters Date Type Department Care Team (Late st Contact Info) Description 08/14/2024 9:30 AM EST Nurse Only Hematology/[address] [phone] [place], Chair 5 Hem Onc Scen[address] [place] [address] [place] [address] 08/14/2024 10:00 AM EST Office Visit Hematology/Oncology [address] [place] [address] Kanu Maravilla MD [address] [place] [address] 08/14/2024 10:30 AM EST Hem/Onc Treatment Hematology/[address], [address] [address] [place], Chair 7 Hem Onc Scenery [address] [place] [address] [place] [address] Health Maintenance Due Date Last Done Comments [...] this encounter Medical Devices Implanted Type Area Armed Security Professional Device Identifier Shelf Expiration Date Model / Serial / Lot Stent Angulo 4fr 11cm - [id number] Implanted:Qty : 1 on 02/08/2024 by Jeffrey Kerr MD at OR [facility] [employer] [id number] 08/16/2028 [id number] / / [id number] Port Implant W8f Poly Cath - [id number] Implanted:Qty : 1 on 05/02/2024 by Iam Curry MD at OR [facility] Right: Chest CR BARD : PERIPHERAL VASCULAR [id number] 05/17/2025 [id number] / / [id number] documented as of this encounter Visit Diagnoses [...] over 2 Hours, ONCE, 1 dose, On Sun08/12/24 at 1545Indications:Malignant neoplasm of upper-outer quadrant of left breast in female, estrogen receptor negative (HCC),Dehydration Start Infusion 08/12/2024 2:41 PM EST 1,000 mL 500 mL/hr sodium chloride 0.9 % flush central line 10 mL 10 mL, IV Push, PRN Other, IV Flush, Starting on Sun08/12/24 at 1440, Until Sun08/12/24 at 2054, For 24 hours, Do not flush if lock, PICC, or central line not in place; IV infusing or unable to flush.Indications:Maligna nt neoplasm of upper-outer quadrant of left breast in female, estrogen receptor negative (HCC),Dehydration Given 08/12/2024 4:43 PM EST 20 mL documented in this encounter Care Teams Medical Technician Relationship Specialty Start Date End Date Malinda Owens CRNP [address] [place] [address] PCP - General Nurse Practitioner 09/20/23 documented as of this encounter
--- OUTSIDE RECORDS SUMMARY | 2024-09-05 14:26 | External Medical Summary | Summary of Care ---
Author Name Unknown Organization [facility] Address [address] [place] [facility] [place] [address] Phone [phone] Care Team Providers Care Security Systems Manager Name Role Phone Malinda Owens AD Primary Care Provider [phone] Encounter Details Date Type Department Care Team (Late st Contact Info) Description 07/31/2024 Orders Only [facility]ology[facility]On[facility] [address] [facility] [place] [address] Kanu Maravilla MD [address] [place] [address] Malignant neoplasm of upper-outer quadrant of left [...] and class I obesity. Per review of [facility] documentation of 09/25/23, blood glucose values have [...] Recommend nutrition consult with RDN (Registered Dietitian Diamond Sander). Lifestyle changes are also indicated including optimizing [...] and folate levels and referral to a veneer press operator. If hemoglobin levels are below 8 g/dl, we recommend Maternal Medicine ultrasound for growth every 4 weeks after 24 weeks. Consider a blood transfusion if hemoglobin levels fall below 6 g/dL. ([employer] [facility] [employer] Practice Bulletin Number 95, December,). Consider Venofer [...] money to get more. 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 She says she is not feeling well, she thinks she is dehydrated and would like to have IV fluid documented in this encounter Plan of Treatment Upcoming Encounters Date Type Department Care Team (Late st Contact Info) Description 08/07/2024 9:00 AM EST Hem/Onc Treatment [facility]ology[address] [phone] [place], Chair 7 Hem Onc [address] [address] 08/28/2024 9:00 AM EDT Nurse Only Hematology/[address]cology [address] [phone] [place], Chair [address] [place] [address] 08/28/2024 9:30 AM EDT Office Visit Hematology/Oncology [facility] [address] [phone] Gabby Zavala CRNP [address] [place] [address] [place] [id number] 08/28/2024 10:00 AM EDT Hem/Onc Treatment Hematology/Oncology Treatment, [place] [address] [place] [address] [place], Chair 7 Hem Onc Scenery [address] [facility], [place] [address] Health Maintenance Due Date Last Done Comments [...] this encounter Medical Devices Implanted Type Area Pharmaceutical Service Representative Device Identifier Shelf Expiration Date Model / Serial / Lot Stent Kev 4fr 11cm - [id number] Implanted:Qty : 1 on 02/08/2024 by Jeffrey Kerr MD at OR [facility] [employer] [id number] 08/16/2028 [id number] / / [id number] Port Implant W8f Poly Cath - [id number] Implanted:Qty : 1 on 05/02/2024 by Ima Curry MD at OR [facility] Right: Chest CR BARD : PERIPHERAL VASCULAR [id number] 05/17/2025 [id number] / / [id number] documented as of this encounter Visit Diagnoses [...] Dehydration documented in this encounter Care Teams Security Systems Manager Relationship Specialty Start Date End Date Malinda Owens CRNP [address] [place] [address] PCP - General Nurse Practitioner 09/20/23 documented as of this encounter
--- OUTSIDE RECORDS SUMMARY | 2024-09-05 14:26 | External Medical Summary | Summary of Care ---
Author Name Unknown Organization [facility] Address [address] [place] [address] Phone [phone] Care Team Providers Care Power Barker Name Role Phone Malinda Owens Primary Care Provider [phone] Reason for Visit * Reason Comments Chemotherapy Day 1, cycle 3 keytr uda, paclitaxel, carboplatin * Episode Based Medications (Routine) - Authorized Specialty Diagnoses / Procedures Referred By Bennie gilliland Referred To Contact Diagnoses Malignant neoplasm of [...] PALONOSETRON HCL Em Ng MD Hematology/Oncology Treatment, [address] [address] Phone: tel: fax: Referral ID Status Reason Start Date Expiration Date V isits Requested Visits Authorized [id number] Authorized 04/30/2024 06/17/2099 [id number] Encounter Details Date Type Department Care Team (Latest Contact Info) Description 06/19/2024 10:00 AM EST Hem/Onc Treatment Hematology/Oncolog y Treatment, [address] [place] [address] [place] Chair [address] On[address] [place] [address] Malignant neoplasm of upper-outer quadrant of left breast in female, estrogen receptor negative (HCC)*; Encounter for antineoplastic chemotherapy; Encounter for prevention of neutropenia due to chemotherapy Allergies No known active allergiesdocumented as of this encounter (statuses as of 07/30/2024) Medications 19 29-1 MG Oral Tablet Chewable [...] as needed for Nausea. 30 Tablet 3 05/08/20 24 025 Discontin ued(Refil l) documented as of this encounter (statuses as of 07/30/2024) Active Problems Problem Noted Date Diagnosed Date Encounter for fertility preservation procedure 1 07/08/2023 [...] complete. Enrolled in Current Health. Plans to miner pick meter from pharmacy today. Instructions provided to [...] and class I obesity. Per review of STEEL [facility]ATE [employer] documentation of 09/25/23, blood glucose values have [...] Recommend nutrition consult with RDN (Registered Dietitian Magistrate Judge). Lifestyle changes are also indicated including optimizing [...] and folate levels and referral to a explosives engineer. If hemoglobin levels are below 8 g/dl, we recommend Maternal Medicine ultrasound for growth every 4 weeks after 24 weeks. Consider a blood transfusion if hemoglobin levels fall below 6 g/dL. ([employer] [facility] [facility] [employer] Manager Practice Bulletin Number 95, December,). Consider [...] as of this encounter (statuses as of 07/30/2024) Resolved Problems Problem Noted Date Diagnosed Date Resolved Date Abnormal glucose tolerance i n mother complicating 04/19/2023 08/31/2023 Overview (04/19/2023): Failed early glucola. 3hr GTT ordered documented as of this encounter (statuses as of 07/30/2024) Immunizations Name Administration Dates Next Due DTP [...] money to get more. Never true 03/26/2024 [place] Depression Scale Answer Date Recorded [place] Depression Scale Total 6 12/11/2023 The thought [...] food for this week? 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 Patient tolerated well. No complaints. VAD with + blood return, flushed with 10 ml NSS and Heparin 5 ml (100 units/ml). Lopez needle removed intact. Dry dressing applied. Goals: Patient will remain free from injury. Possible barriers to meeting goals: ambulating with IV pole Stability of the patient: Moderately stable - low risk of patient condition declining or worsening Summary regarding today's goals: Met: Patient remained free from harm/injury during treatment. Patient left facility in stable condition. * Marilyn Burnett RN - 06/19/2024 10:57 AM EST Chair 8, patient here for day 1, cycle 3 keytruda, paclitaxel, carboplatin following provider visit. Patient with no complaints. VAD accessed without difficulty, + blood return, flushed with 10 ml NSS and dressing applied. Chemotherapy/Immunotherapy agents: CARBOPLATIN, KEYTRUDA, and TAXOL Consent for chemotherapy drug treatment complete, dated, and signed? yes, date - 04/24/24 Treatment lab parameters met? Yes Has treatment weight changed > than 10%? No Treatment preauthorized? Yes VITALS Filed Vitals: BP Readings from Last 2 Encounters: 06/19/24 106/72 06/12/24 111/60 Pulse Readings from Last 2 Encounters: 06/19/24 86 06/12/24 98 Resp Readings from Last 2 Encounters: 06/12/24 16 06/05/24 16 SpO2 Readings from Last 2 Encounters: 06/19/24 95% 06/12/24 97% Temp Readings from Last 2 Encounters: 06/19/24 36.2 C (97.2 F) (Tympanic) 06/12/24 36.5 C (97.7 F) (Tympanic) Urine protein: N/A Patient education completed for treatment? Yes Blood transfusion consent signed and complete? NA Return appointment scheduled? Yes Patient had provider visit today? Yes - Ok to release order and treat per provider Functional Status: Functional status at today's visit: [...] Team (Late st Contact Info) Description 07/31/2024 8:45 AM EST Hem/Onc Treatment Hematology/Oncology Treatment, [place] [address] [place] [phone] [place], Chair 7 Hem Onc Scenery [address] [place] [address] 08/07/2024 9:00 AM EST Hem/Onc Treatment Hematology/Oncology Treatment, [place] [address] [place] [address] [place], Chair 7 Hem Onc Scenery [address] [place] [address] 08/28/2024 9:00 AM EDT Nurse Only Hematology/Oncology Treatment, [place] [address] [place] [phone] [place], Chair [address] [facility] [address] [place] [address] 08/28/2024 9:30 AM EDT Office Visit Hematology/Oncology [facility] [address] [facility], [place] [phone] Gabby Zavala CRNP [address] [place], [place] [address] [address] 08/28/2024 10:00 AM EDT Hem/Onc Treatment Hematology/Oncology Treatment, [place] [address] [place] [phone] iLma, Chair [address] [facility] [address] [place] [address], [place] [address] Health Maintenance Due Date Last Done Comments [...] Completed 12/2023, 05/17/2023, 08/21/2019, Additional history exists Pneumococcal Vaccine: Pediatrics (0 to 5 Years) and At-Risk Patients (6 to 18 Years and 19+ Years) Aged Out No longer eligib le based on patient's age to complete this topic documented as of this encounter Medical Devices Implanted Type Area Ux Visual Designer Device Identifier Shelf Expiration Date Model / Serial / Lot Stent Angulo 4fr 11cm - [id number] Implanted:Qty : 1 on 02/08/2024 by Jeffrey Kerr MD at OR [facility] [employer] [id number] 08/16/2028 6546 / / [id number] Port Implant W8f Poly Cath - [id number] Implanted:Qty : 1 on 05/02/2024 by Iam Curry MD at OR [facility] Right: Chest CR BARD : PERIPHERAL VASCULAR [id number] 05/17/2025 [id number] / / [id number] documented as of this encounter Visit Diagnoses [...] FROM LIGHT, ONCE, 1 dose, On Bibi 06/19/24 at 1345Indications:Malignant neoplasm of upper-outer quadrant of left breast in female, estrogen receptor negative (HCC),Encounter for antineoplastic chemotherapy,Encounter for prevention of neutropenia due to chemotherapy Start Infusion 06/19/2024 12:40 PM EST 219 mg 510 mL/hr dexAMETHasone (Decadron) tab 12 mg 12 mg, Oral, ONCE, On Bibi 06/19/24 at 1115, For 1 doseIndications:Malignant neoplasm of upper-outer quadrant of left breast in female, estrogen receptor negative (HCC),Encounter for antineoplastic chemotherapy,Encounter for prevention of neutropenia due to chemotherapy Given 06/19/2024 10:46 AM EST 12 mg diphenhydrAMINE (Benadryl) inj 25 mg 25 mg, IV Push, ONCE, On Bibi 06/19/24 at 1115, For 1 doseIndications:Malignant neoplasm of upper-outer quadrant of left breast in female, estrogen receptor negative (HCC),Encounter for antineoplastic chemotherapy,Encounter for prevention of neutropenia due to chemotherapy Given 06/19/2024 10:47 AM EST 25 mg Famotidine (Pepcid) inj 20 mg 20 mg, IV Push, ONCE, On Bibi 06/19/24 at 1115, For 1 dose, Give IV push over 2 minutes.Indications:Maligna nt neoplasm of upper-outer quadrant of left breast in female, estrogen receptor negative (HCC),Encounter for antineoplastic chemotherapy,Encounter for prevention of neutropenia due to chemotherapy Given 06/19/2024 10:47 AM EST 20 mg hEParin 100 UNIT/ML Lock Flush inj 500 Units 500 Units (5 mL), IV Lock, PRN Other, IV Flush, Starting on Bibi 06/19/24 at 1036, Until Bibi 06/19/24 at 1747, For 24 hours, Do not flush if lock, PICC, or central line not in place; IV infusing or unable to flush.Indications:Malignant neoplasm of upper-outer quadrant of left breast in female, estrogen receptor negative (HCC),Encounter for antineoplastic chemotherapy,Encounter for prevention of neutropenia due to chemotherapy Given 06/19/2024 1:15 PM EST 500 Units NSS infusion Intravenous, at 50 mL/hr, PRN, Starting on Bibi 06/19/24 at 1145, Until Bibi 06/19/24 at 1747, Maintenance lineIndications:Malignant neoplasm of upper-outer quadrant of left breast in female, estrogen receptor negative (HCC),Encounter for antineoplastic chemotherapy,Encounter for prevention of neutropenia due to chemotherapy Start Infusion 06/19/2024 10:45 AM EST 50 mL/hr PACLitaxel (Taxol) 165 mg in NSS 250 mL infusion 165 mg (rounded from 164.8 mg = 80 mg/m2 2.06 m2 Treatment Plan BSA from Recorded weight), IV Piggyback, ONCE, 1 dose, On Bibi 06/19/24 at 1245, Administer over 60 Minutes, Administer through 0.22 micron low protein binding filter!Indications:Malignan t neoplasm of upper-outer quadrant of left breast in female, estrogen receptor negative (HCC),Encounter for antineoplastic chemotherapy,Encounter for prevention of neutropenia due to chemotherapy Start Infusion 06/19/2024 11:34 AM EST 165 mg 255 mL/hr Palonosetron (Aloxi) inj SOLN 0.25 mg 0.25 mg, IV Push, ONCE, On Bibi 06/19/24 at 1115, For 1 dose, Restricted per S antiemetic guidelinesIndications:Malig nant neoplasm of upper-outer quadrant of left breast in female, estrogen receptor negative (HCC),Encounter for antineoplastic chemotherapy,Encounter for prevention of neutropenia due to chemotherapy Given 06/19/2024 10:48 AM EST 0.25 mg Pembrolizumab (Keytruda) 200 mg in NSS 100 mL infusion 200 mg, IV Piggyback, ONCE, 1 dose, On Bibi 06/19/24 at 1215, Administer over 30 Minutes, Infuse through 0.2 micron filter.Indications:Malignan t neoplasm of upper-outer quadrant of left breast in female, estrogen receptor negative (HCC),Encounter for antineoplastic chemotherapy,Encounter for prevention of neutropenia due to chemotherapy Start Infusion 06/19/2024 10:55 AM EST 200 mg 226 mL/hr sodium chloride 0.9 % flush central line 10 mL 10 mL, IV Push, PRN Other, IV Flush, Starting on Bibi 06/19/24 at 1036, Until Bibi 06/19/24 at 1747, For 24 hours, Do not flush if lock, PICC, or central line not in place; IV infusing or unable to flush.Indications:Malignant neoplasm of upper-outer quadrant of left breast in female, estrogen receptor negative (HCC),Encounter for antineoplastic chemotherapy,Encounter for prevention of neutropenia due to chemotherapy Given 06/19/2024 1:15 PM EST 10 mL documented in this encounter Care Teams Power Barker Relationship Specialty Start Date End Date Malinda Owens CRNP [address] [place] [id number] PCP - General Nurse Practitioner 09/20/23 documented as of this encounter
--- OUTSIDE RECORDS SUMMARY | 2024-09-05 14:26 | External Medical Summary | Summary of Care ---
Author Name Unknown Organization [facility] Address [address] [place] [address] Phone [phone] Care Team Providers Care Motion Picture Photographer Name Role Phone Malinda Owens Primary Care Provider [phone] Reason for Visit * Reason Comments Chemotherapy C4 D15 Carbo Taxol * Episode Based Medications (Routine) - Authorized Specialty Diagnoses / Procedures Referred By Contac t Referred To Contact Diagnoses Malignant neoplasm of upper-outer quadrant of left breast in female, estrogen receptor negative (HCC) Encounter for antineoplastic chemotherapy Encounter for prevention of neutropenia due to chemotherapy Procedures MO DOXORUBIC HCL 10 MG VL CHEMO MO CARBOPLATIN INJECTION MO FOSAPREPITANT INJECTION MO INJ PEMBROLIZUMAB MO INJECTION, FULPHILA MO PACLITAXEL INJECTION MO INJ CYCLOPHOSPHAMD AUROMEDIC MO PALONOSETRON HCL Em Ng MD Hematology/Oncology Treatment, [address] [address] Phone: tel: fax: Referral ID Status Reason Start Date Expiration Date V isits Requested Visits Authorized [id number] Authorized 04/30/2024 06/17/2099 999 999 Encounter Details Date Type Department Care Team (Latest Contact Info) Description 07/31/2024 8:45 AM EST Hem/Onc Treatment Hematology/Oncolog y Treatment, [address] [address] [place] Chair 7 Hem Onc [address] [place] [address] Malignant neoplasm of upper-outer quadrant of [...] and class I obesity. Per review of BASTING MACHINE OPERATOR documentation of 09/25/23, blood glucose [...] Recommend nutrition consult with RDN (Registered Dietitian Education Program Coordinator). Lifestyle changes are also indicated including [...] and folate levels and referral to a dispatcher refinery. If hemoglobin levels are below 8 g/dl, we recommend Maternal Medicine ultrasound for growth every 4 weeks after 24 weeks. Consider a blood transfusion if hemoglobin levels fall below 6 g/dL. ([employer] Obst[employer] and Registered Physical Therapist Practice Bulletin Number 95, December,). Consider Venofer [...] money to get more. 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 [...] 9:00 AM EST Hem/Onc Treatment Hematology/Oncology Treatment, [address] [place] [phone] [place], Chair 7 Hem Onc [place] [address] [place] [place] [address] 08/28/2024 9:00 AM EDT Nurse Only Hematology/Oncology Treatment, [address] [place] [phone] [place], Chair 5 Hem Onc [address] [place] [address] 08/28/2024 9:30 AM EDT Office Visit Hematology/Oncology [facility] [place] [address] [place], [place] [phone] Gabby Zavala CRNP [address] [facility] [place] [address] 08/28/2024 10:00 AM EDT Hem/Onc Treatment Hematology/Oncology Treatment, [place] [address] [place] [phone] [place], Chair 7 Hem Onc [facility] [address] [facility] [place] [address] Health Maintenance Due Date Last Done Comments [...] encounter Medical Devices Implanted Type Area Supervisor Labor Gang Device Identifier Shelf Expiration Date Model / Serial / Lot Therese Angulo 4fr 11cm - [id number] Implanted:Qty : 1 on 02/08/2024 by Jeffrey Kerr MD at OR [facility] [employer] [id number] 08/16/2028 [id number] / / [id number] Port Implant W8f Poly Cath - [id number] Implanted:Qty : 1 on 05/02/2024 by Iam Curry MD at OR [facility] Right: Chest CR BARD : PERIPHERAL VASCULAR [id number] 05/17/2025 [id number] / / [id number] documented as of this encounter Procedures Procedure [...] AM EST) nRs 07/31/2024 10:02 AM EST [facility] 56-02 Blood Venous blood specimen / Unknown Central Line / Unknown 07/31/2024 8:44 AM EST 07/31/2024 9:39 AM EST Kanu Maravilla MD LAB BLOOD ORDERABLES Final Res ult [facility] 56-[address] [place] [address] * (ABNORMAL) DIFFERENTIAL, AUTOMATED (07/31/2024 8:44 AM EST) WBC 2.59(L) 4.00 - 10.80 K/uL 07/31/2024 10:02 AM EST [facility] 56-02 Neutrophils % 71.4 40.0 - 75.0 % 07/31/2024 10:02 AM EST [facility] 56-02 Lymphocytes % 27.0 18.0 - 42.0 % 07/31/2024 10:02 AM [facility] 56-02 Monocytes % 1.2 1.0 - 11.0 % 07/31/2024 10:02 AM EST [facility] 56-02 Eosinophils % 0.0 0.0 - 6.0 % 07/31/2024 10:02 AM EST [facility] 56-02 Basophils % 0.4 0.0 - 2.0 % 07/31/2024 10:02 AM EST [facility] 56-02 Absolute Neutrophils 1.85 1.80 - 7.70 K/uL 07/31/2024 10:02 AM EST [facility] 56-02 Absolute Lymphocytes 0.70(L) 1.00 - 4.80 K/ul 07/31/2024 10:02 AM EST [facility] 56-02 Absolute Monocytes 0.03 0.00 - 1.10 K/uL 07/31/2024 10:02 AM EST [facility] 56-02 Absolute Eosinophils 0.00 0.00 - 0.70 K/uL 07/31/2024 10:02 AM [facility] 56-02 Absolute Basophils 0.01 0.00 - 0.20 K/uL 07/31/2024 10:02 AM [facility] 56-02 Blood Venous blood specimen / Unknown Central Line / Unknown 07/31/2024 8:44 AM EST 07/31/2024 9:39 AM EST us Kanu Maravilla MD LAB BLOOD ORDERABLES Final Res ult [facility] 56- 200 [place] [address] * (ABNORMAL) CBC (07/31/2024 8:44 AM EST) Pathologist [facility] WBC 2.59(L) 4.00 - 10.80 K/uL 07/31/2024 10:02 AM [facility] 56- RBC 3.39 3.85 - 5.15 M/uL 07/31/2024 10:02 AM [facility] 56- HGB 11.4(L) 12.0 - 15.3 g/dL 07/31/2024 10:02 AM [facility] 56- HCT 34.6(L) 36.0 - 45.2 % 07/31/2024 10:02 AM [facility] 56- MCV 102.1 81.5 - 97.5 fL 07/31/2024 10:02 AM [facility] 56- MCH 33.6 27.0 - 34.0 pg 07/31/2024 10:02 AM [facility] 56-02 MCHC 32.9 32.0 - 36.0 g/dL 07/31/2024 10:02 AM [facility] 56-02 RDW 14.6 11.5 - 15.5 % 07/31/2024 10:02 AM [facility] 56-02 PLT 179 140 - 400 K/uL 07/31/2024 10:02 AM [facility] 56-02 MPV 10.2 6.6 - 11.1 fL 07/31/2024 10:02 AM [facility] 56-02 Blood Venous blood specimen / Unknown Central Line / Unknown 07/31/2024 8:44 AM EST 07/31/2024 9:39 AM EST us Kanu Maravilla MD LAB BLOOD ORDERABLES Final Res ult [facility] 56- [address] [place] [address] * HCG QUALITATIVE, URINE (07/31/2024 8:44 AM EST) HCG Qualitative, Urine Negative Negative 07/31/2024 9:57 AM [facility] 56 Urine Urine specimen obtained by clean catch procedure / Unknown Non-blood Collection / Unknown 07/31/2024 8:44 AM EST 07/31/2024 9:48 AM EST us Kanu Maravilla MD LAB URINE ORDERABLES Final Res ult [facility] [address]- [address] [place], [place] [phone] * (ABNORMAL) COMPREHENSIVE METABOLIC PANEL (07/31/2024 8:44 AM EST) Pathologist [facility] BUN 16 6 - 20 mg/dL 07/31/2024 10:02 AM [facility] 56 CREATININE 0.7 0.5 - 1.0 mg/dL 07/31/2024 10:02 AM [facility] 56 EGFR >90 >=60 mL/min 07/31/2024 10:02 AM [facility] 56 Comment:eGFR is calculated b ased on the CKD-EPI 2020 equation. SODIUM 140 135 - 146 mmol/L 07/31/2024 10:02 AM [facility] 56 POTASSIUM 4.3 3.5 - 5.1 mmol/L 07/31/2024 10:02 AM [facility] 56- CHLORIDE 104 98 - 107 mmol/L 07/31/2024 10:02 AM [facility] 56- CO2 20(L) 22 - 32 mmol/L 07/31/2024 10:02 AM [facility] 56 ANION GAP 16(H) 7 - 15 mmol/L 07/31/2024 10:02 AM [facility] 56- GLUCOSE 223(H) 70 - 120 mg/dL 07/31/2024 10:02 AM [facility] 56 Albumin 4.5 3.8 - 5.0 g/dL 07/31/2024 10:02 AM [facility] 56 AST 16 10 - 35 U/L 07/31/2024 10:02 AM [facility] 56 Alkaline Phosphatase 80 35 - 130 U/L 07/31/2024 10:02 AM [facility] 56- Bilirubin, Total 0.4 <=1.2 mg/dL 07/31/2024 10:02 AM [facility] 56- CALCIUM 9.6 8.4 - 10.2 mg/dL 07/31/2024 10:02 AM [facility] 56- Protein 7.5 6.0 - 8.3 g/dL 07/31/2024 10:02 AM [facility] 56- ALT 20 10 - 35 U/L 07/31/2024 10:02 AM [facility] 56- Blood Venous blood specimen / Unknown Central Line / Unknown 07/31/2024 8:44 AM EST 07/31/2024 9:38 AM EST us Kanu Maravilla MD LAB BLOOD ORDERABLES Final Res ult [facility] [address] [place] [address] documented in this encounter Visit Diagnoses Diagnosis [...] mg 25 mg, IV Push, ONCE, On Bbii 07/31/24 at 1045, For 1 doseIndications:Malignant neoplasm [...] at 1045, For 1 dose, Restricted per [facility] antiemetic guidelinesIndications:Jess christie neoplasm [...] mL documented in this encounter Care Teams Motion Picture Photographer Relationship Specialty Start Date End Date Malinda Owens CRNP [address] [place] [address] PCP - General Nurse Practitioner 09/20/23 documented as of this encounter
--- OUTSIDE RECORDS SUMMARY | 2024-09-05 14:26 | External Medical Summary ---
Author Name Unknown Address Unknown Organization [id number]:[facility] [place] [address] Laboratory Report Ordering Provider Test Date Status INDERJITFERRARO 07/31/2024 08:44:58 Final Observation Date Value Abnormality Reference (Units ) Status Screen, Urine 07/31/2024 08:44:58 Negative Negative Final Performing Location [facility] [place] [address]
--- OUTSIDE RECORDS SUMMARY | 2024-09-05 14:26 | External Medical Summary | Summary of Care ---
Author Name Unknown Organization [facility] Address [address] [place] [address] Phone [phone] Care Team Providers Care Commercial Loan Administrator Name Role Phone Malinda Owens Primary Care Provider [phone] Reason for Visit * Reason Comments Chemotherapy Day 1, cycle 3 keytr uda, paclitaxel, carboplatin * Episode Based Medications (Routine) - Authorized Specialty Diagnoses / Procedures Referred By Bennie gilliland Referred To Contact Diagnoses Malignant neoplasm of upper-outer quadrant of left breast in female, estrogen receptor negative (HCC) Encounter for antineoplastic chemotherapy Encounter for prevention of neutropenia due to chemotherapy Procedures GA DOXORUBIC HCL 10 MG VL CHEMO GA CARBOPLATIN INJECTION GA FOSAPREPITANT INJECTION GA INJ PEMBROLIZUMAB GA INJECTION, FULPHILA GA PACLITAXEL INJECTION GA INJ CYCLOPHOSPHAMD AUROMEDIC GA PALONOSETRON HCL Em Ng MD Hematology/Oncology Treatment, [address] [address] Phone: tel: fax: Referral ID Status Reason Start Date Expiration Date V isits Requested Visits Authorized [id number] Authorized 04/30/2024 06/17/[phone] Encounter Details Date Type Department Care Team (Latest Contact Info) Description 06/19/2024 10:00 AM EST Hem/Onc Treatment Hematology/Oncolog y Treatment, [address] [place] [address] [place] Chair 4 Hem Onc [address] [place] [address] Malignant neoplasm of upper-outer quadrant of [...] class I obesity. Per review of CONSULTANT INTERNSHIP documentation of 09/25/23, blood glucose values have [...] Recommend nutrition consult with RDN (Registered Dietitian Blindstitch Hemmer). Lifestyle changes are also indicated including optimizing [...] and folate levels and referral to a licensed esthetician. If hemoglobin levels are below 8 g/dl, we recommend Maternal Medicine ultrasound for growth every 4 weeks after 24 weeks. Consider a blood transfusion if hemoglobin levels fall below 6 g/dL. ([employer] Hand Painter Practice Bulletin Number 95, December,). Consider Venofer [...] money to get more. 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 Not [...] 8:45 AM EST Hem/Onc Treatment Hematology/Oncology Treatment, [place] [address] [place] [phone] [place], Chair 7 Hem Onc [address] [address] [place] [address] 08/07/2024 9:00 AM EST Hem/Onc Treatment Hematology/Oncology Treatment, [place] 200 [facility] [place] [phone] [place], Chair 7 Hem Onc [address]enery 200 [facility] [place] [address] 08/28/2024 9:00 AM EDT Nurse Only Hematology/Oncology Treatment, [place] 200 [facility] [place] [phone] [place], Chair 5 [facility] 200 [facility] [place] [address] 08/28/2024 9:30 AM EDT Office Visit Hematology/Oncology [facility] 200 [facility], [place] [phone] Gabby Zavala CRNP [address] [place], [place] [address] [address] 08/28/2024 10:00 AM EDT Hem/Onc Treatment Hematology/Oncology Treatment, [place] 200 [facility] [place] [phone] [place], Chair 7 [facility] [address] [place] [address], [place] [address] Health Maintenance Due Date Last Done Comments [...] this encounter Medical Devices Implanted Type Area Critical Care Unit Nurse Device Identifier Shelf Expiration Date Model / Serial / Lot Stent Angulo 4fr 11cm - [id number] Implanted:Qty : 1 on 02/08/2024 by Jeffrey Kerr MD at OR [facility] [employer]ley Spoon [id number] 08/16/2028 [id number] / / [id number] Port Implant W8f Poly Cath - [id number] Implanted:Qty : 1 on 05/02/2024 by Iam Curry MD at OR [facility] Right: Chest CR BARD : PERIPHERAL VASCULAR [id number] 05/17/2025 [id number] / / [id number] documented as of this encounter Visit Diagnoses [...] mL documented in this encounter Care Teams Commercial Loan Administrator Relationship Specialty Start Date End Date Malinda Owens CRNP [address] [place] [address] PCP - General Nurse Practitioner 09/20/23 documented as of this encounter
--- OUTSIDE RECORDS SUMMARY | 2024-09-05 14:26 | External Medical Summary ---
Author Name Unknown Address Unknown Organization K09[facility] [place] [address] Laboratory Report Ordering Provider Test Date Status JASMINE JANSEN 07/31/2024 08:44:58 Final Observation Date Value Abnormality Reference (Units ) Status Nucleated erythrocytes/100 leukocytes [Ratio] in Blood by Automated count 07/31/2024 08:44:58 Final Performing Location [facility] [place] [place] [address]
--- OUTSIDE RECORDS SUMMARY | 2024-09-05 14:26 | External Medical Summary ---
Author Name Unknown Address Unknown Organization K09:[facility] 56-02 - [address] [place] [address] Laboratory Report Ordering Provider Test Date Status JASMINE JANSEN 07/31/2024 08:44:58 Final Observation Date Value Abnormality Reference (Units ) Status BUN 07/31/2024 08:44:58 16 6-20 (mg/dL) Final Creatinine 07/31/2024 08:44:58 0.7 0.5-1.0 (mg/dL) Final Glomerular filtration rate/1.73 sq M.predicted [Volume Rate/Area] in Serum, Plasma or Blood by Creatinine-based formula (CKD-EPI) 07/31/2024 08:44:58 >90 >=60 (mL/min) Final eGFR is calculated based on the CKD-EPI 2020 equation. Sodium 07/31/2024 08:44:58 140 135-146 (m mol/L) Final Potassium 07/31/2024 08:44:58 4.3 3.5-5.1 (m mol/L) Final Cl 07/31/2024 08:44:58 104 98-107 (mm ol/L) Final CO2 07/31/2024 08:44:58 20 Below low normal 22- 32 (mmol/L) Final Anion gap 07/31/2024 08:44:58 16 Above high normal 7- 15 (mmol/L) Final Glucose 07/31/2024 08:44:58 223 Above high normal 70 -120 (mg/dL) Final Albumin 07/31/2024 08:44:58 4.5 3.8-5.0 (g /dL) Final AST (Aspartate aminotransferase) 07/31/2024 08:44:58 16 10-35 (U/L) Fin al Alk Phos 07/31/2024 08:44:58 80 35-130 (U/ L) Final Bilirubin, Total 07/31/2024 08:44:58 0.4 <=1 .2 (mg/dL) Final Calcium 07/31/2024 08:44:58 9.6 8.4-10.2 ( mg/dL) Final Protein 07/31/2024 08:44:58 7.5 6.0-8.3 (g /dL) Final ALT (Alanine aminotransferase) 07/31/2024 08:44:58 20 10-35 (U/L) [place] [email or web address] Performing Location [facility] 56- 67 [address] [place] [address]
--- OUTSIDE RECORDS SUMMARY | 2024-09-05 14:26 | External Medical Summary ---
Author Name Unknown Address Unknown Organization K09:[facility] [place] [address] Laboratory Report Ordering Provider Test Date Status JASMINE JANSEN 07/31/2024 08:44:58 Final Observation Date Value Abnormality Reference (Units ) Status WBC, Total 07/31/2024 08:44:58 2.59 Below low normal 4. 00-10.80 (K/uL) Final RBC 07/31/2024 08:44:58 3.39 3.85-5.15 (M/uL) Final Hemoglobin 07/31/2024 08:44:58 11.4 Below low normal 12 .0-15.3 (g/dL) Final HCT 07/31/2024 08:44:58 34.6 Below low normal 36. 0-45.2 (%) Final MCV 07/31/2024 08:44:58 102.1 81.5-97.5 (fL) Final MCH 07/31/2024 08:44:58 33.6 27.0-34.0 (pg) Final MCHC 07/31/2024 08:44:58 32.9 32.0-36.0 (g/dL) Final RDW 07/31/2024 08:44:58 14.6 11.5-15.5 (%) Final Platelets 07/31/2024 08:44:58 179 140-400 (K /uL) Final MPV 07/31/2024 08:44:58 10.2 6.6-11.1 ( fL) Final Performing Location [facility] [place] [address]
--- OUTSIDE RECORDS SUMMARY | 2024-09-05 14:26 | External Medical Summary | Summary of Care ---
Author Name Unknown Organization [facility] Address [address] [place] [address] Phone [phone] Care Team Providers Care Experimental Flight Test Mechanic Name Role Phone Malinda Owens Primary Care Provider [phone] Reason for Visit * Reason Comments Chemotherapy [...] PALONOSETRON HCL Em Ng MD Hematology/Oncology Treatment, [address] [address] Phone: tel: fax: Referral ID Status Reason Start Date Expiration Date V isits Requested Visits Authorized [id number] Authorized 04/30/2024 06/17/2099 999 999 Encounter Details Date Type Department Care Team (Latest Contact Info) Description 06/19/2024 10:00 AM EST Hem/Onc Treatment Hematology/Oncolog y Treatment, [address] [place] [address] [place] Chair 4 Hem Onc [address] [place] [address] Malignant neoplasm of upper-outer quadrant of [...] complete. Enrolled in Current Health. Plans to pickler helper meter from pharmacy today. Instructions provided [...] and class I obesity. Per review of DATABASE MANAGEMENT SPECIALIST documentation of 09/25/23, blood glucose values [...] Recommend nutrition consult with RDN (Registered Dietitian Service Tech/Welder). Lifestyle changes are also indicated including optimizing [...] and folate levels and referral to a repairer hairspring. If hemoglobin levels are below 8 g/dl, we recommend Maternal Medicine ultrasound for growth every 4 weeks after 24 weeks. Consider a blood transfusion if hemoglobin levels fall below 6 g/dL. ([employer] Obst[employer] and Grain Buyer Practice Bulletin Number 95, December,). Consider Venofer [...] money to get more. 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 200 [place] [address] 08/28/2024 9:30 AM EDT Office Visit Hematology/Oncology [facility] 200 [facility], [place] [phone] Gabby Zavala CRNP [address] [place], [place] [address] [address] 08/28/2024 10:00 AM EDT Hem/Onc Treatment Hematology/Oncology Treatment, [place] 200 [place] [address] [place], Chair [address] [facility] [address] [place] [address], [place] [address] Health Maintenance Due Date Last Done Comments [...] this encounter Medical Devices Implanted Type Area Tool And Die Manager Device Identifier Shelf Expiration Date Model / Serial / Lot Stent Angulo 4fr 11cm - [id number] Implanted:Qty : 1 on 02/08/2024 by Jeffrey Kerr MD at OR [facility] CME [id number] 08/16/2028 [id number] / / [id number] Port Implant W8f Poly Cath - [id number] Implanted:Qty : 1 on 05/02/2024 by Iam Curry MD at OR [facility] Right: Chest CR BARD : PERIPHERAL VASCULAR [id number] 05/17/2025 [id number] / / [id number] documented as of this encounter Visit Diagnoses [...] mL documented in this encounter Care Teams Experimental Flight Test Mechanic Relationship Specialty Start Date End Date Malinda Owens CRNP [address] [place] [address] PCP - General Nurse Practitioner 09/20/23 documented as of this encounter
--- OUTSIDE RECORDS SUMMARY | 2024-09-05 14:26 | External Medical Summary ---
Author Name Unknown Address Unknown Organization K09:[facility] [address] [place] [address] Laboratory Report Ordering Provider Test Date Status JASMINE JANSEN 07/31/2024 08:44:58 Final Observation Date Value Abnormality Reference (Units ) Status SYNC LEUKOCYTES IN BLOOD BY AUTOMATED COUNT 07/31/2024 08:44:58 2.59 Below low normal 4.00-10.80 (K/uL) Final Segs 07/31/2024 08:44:58 71.4 40.0-75.0 (%) Final Lymphs % 07/31/2024 08:44:58 27.0 18.0-42.0 (%) Final Monos 07/31/2024 08:44:58 1.2 1.0-11.0 (%) Final Eosinophils 07/31/2024 08:44:58 0.0 0.0-6.0 (%) Final Basos 07/31/2024 08:44:58 0.4 0.0-2.0 (%) Final Absolute Segs 07/31/2024 08:44:58 1.85 1.80-7.70 (K/uL) Final Lymphs, absolute 07/31/2024 08:44:58 0.70 Below low normal 1.00-4.80 (K/ul) Final Monos, Abs 07/31/2024 08:44:58 0.03 0.00-1.10 (K/uL) Final Eos, Abs 07/31/2024 08:44:58 0.00 0.00-0.70 (K/uL) Final Basos, Abs 07/31/2024 08:44:58 0.01 0.00-0.20 (K/uL) Final Performing Location [facility] [address] [place] [address]
--- OUTSIDE RECORDS SUMMARY | 2024-09-05 14:26 | External Medical Summary | Summary of Care ---
Author Name Unknown Organization [facility] Address [address] [place] [address] Phone [phone] Care Team Providers Care Acid Cleaner Name Role Phone Malinda Owens Primary Care Provider [phone] Reason for Visit * Reason Comments Chemotherapy Day 1, cycle 3 keytr uda, paclitaxel, carboplatin * Episode Based Medications (Routine) - Authorized Specialty Diagnoses / Procedures Referred By Bennie gilliland Referred To Contact Diagnoses Malignant neoplasm of upper-outer quadrant of left breast in female, estrogen receptor negative (HCC) Encounter for antineoplastic chemotherapy Encounter for prevention of neutropenia due to chemotherapy Procedures CA DOXORUBIC HCL 10 MG VL CHEMO CA CARBOPLATIN INJECTION CA FOSAPREPITANT INJECTION CA INJ PEMBROLIZUMAB CA INJECTION, FULPHILA CA PACLITAXEL INJECTION CA INJ CYCLOPHOSPHAMD AUROMEDIC CA PALONOSETRON HCL Em Ng MD Hematology/Oncology Treatment, [address] [address] Phone: tel: fax: Referral ID Status Reason Start Date Expiration Date V isits Requested Visits Authorized [id number] Authorized 04/30/2024 06/17/2099 [id number] Encounter Details Date Type Department Care Team (Latest Contact Info) Description 06/19/2024 10:00 AM EST Hem/Onc Treatment Hematology/Oncolog y Treatment, [address] [place] [address] L[place] Chair 4 Hem On[address] [place] [address] Malignant neoplasm of upper-outer [...] complete. Enrolled in Current Health. Plans to pickle sorter meter from pharmacy today. Instructions provided to [...] and class I obesity. Per review of DEVELOPMENT MANAGER documentation of 09/25/23, blood glucose [...] Recommend nutrition consult with RDN (Registered Dietitian Telephone Worker). Lifestyle changes are also indicated including optimizing [...] and folate levels and referral to a before and after school daycare worker. If hemoglobin levels are below 8 g/dl, we recommend Maternal Medicine ultrasound for growth every 4 weeks after 24 weeks. Consider a blood transfusion if hemoglobin levels fall below 6 g/dL. ([employer] [facility] Practice Bulletin Number 95, December,). Consider Venofer [...] money to get more. 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 [address] [place], Chair 7 Hem Onc Scenery 200 [place] [address] 08/28/2024 9:00 AM EDT Nurse Only Hematology/Oncology Treatment, [place] [address] [place] [address] [place], Chair 5 [facility] [address] [place] [address] 08/28/2024 9:30 AM EDT Office Visit Hematology/Oncology [facility] 200 [facility], [place] [phone] Gabby Zavala CRNP [address] [place], [place] [address] [address] 08/28/2024 10:00 AM EDT Hem/Onc Treatment Hematology/Oncology Treatment, [place] [address] [place] [phone] [place], Chair 7 [facility] [address] [place] [address], [place] [address] Health Maintenance Due Date Last Done Comments [...] this encounter Medical Devices Implanted Type Area Pipeline Dispatcher Device Identifier Shelf Expiration Date Model / Serial / Lot Stent Angulo 4fr 11cm - [id number] Implanted:Qty : 1 on 02/08/2024 by Jeffrey Kerr MD at OR [facility] yeppt [id number] 08/16/2028 [id number] / / [id number] Port Implant W8f Poly Cath - [id number] Implanted:Qty : 1 on 05/02/2024 by Iam Curry MD at OR [facility] Right: Chest CR BARD : PERIPHERAL VASCULAR [id number] 05/17/2025 [id number] / / [id number] documented as of this encounter Visit Diagnoses [...] mL documented in this encounter Care Teams Acid Cleaner Relationship Specialty Start Date End Date Malinda Owens CRNP [address] [place] [address] PCP - General Nurse Practitioner 09/20/23 documented as of this encounter
--- OUTSIDE RECORDS SUMMARY | 2024-09-05 14:26 | External Medical Summary | Summary of Care ---
Author Name Unknown Organization [facility] Address [address] [place] [address] Phone [phone] Care Team Providers Care Diamond Driller Helper Name Role Phone Malinda Owens Primary Care Provider [phone] Reason for Visit * Reason Comments Chemotherapy Day 1, cycle 3 keytr uda, paclitaxel, carboplatin * Episode Based Medications (Routine) - Authorized Specialty Diagnoses / Procedures Referred By Bennie gilliland Referred To Contact Diagnoses Malignant neoplasm of upper-outer quadrant of left breast in female, estrogen receptor negative (HCC) Encounter for antineoplastic chemotherapy Encounter for prevention of neutropenia due to chemotherapy Procedures IL DOXORUBIC HCL 10 MG VL CHEMO IL CARBOPLATIN INJECTION IL FOSAPREPITANT INJECTION IL INJ PEMBROLIZUMAB IL INJECTION, FULPHILA IL PACLITAXEL INJECTION IL INJ CYCLOPHOSPHAMD AUROMEDIC IL PALONOSETRON HCL Em Ng MD Hematology/Oncology Treatment, [address] [address] Phone: tel: fax: Referral ID Status Reason Start Date Expiration Date V isits Requested Visits Authorized [id number] Authorized 04/30/2024 06/17/2099 [id number] Encounter Details Date Type Department Care Team (Latest Contact Info) Description 06/19/2024 10:00 AM EST Hem/Onc Treatment Hematology/Oncolog y Treatment, [address] [place] [address] [place] Chair 4 Hem On[address] [place] [address] Malignant neoplasm of upper-outer quadrant of [...] complete. Enrolled in Current Health. Plans to fish bait picker meter from pharmacy today. Instructions provided [...] and class I obesity. Per review of TECHNICAL DIRECTOR documentation of 09/25/23, blood glucose values have [...] Recommend nutrition consult with RDN (Registered Dietitian Hydraulic Press In Operator). Lifestyle changes are also indicated including [...] and folate levels and referral to a service desk specialist. If hemoglobin levels are below 8 g/dl, we recommend Maternal Medicine ultrasound for growth every 4 weeks after 24 weeks. Consider a blood transfusion if hemoglobin levels fall below 6 g/dL. ([employer] [facility] Sur[facility] Practice Bulletin Number 95, December,). Consider Venofer [...] money to get more. 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 on [...] 8:45 AM EST Hem/Onc Treatment Hematology/Oncology Treatment, [place] [address] [place] [phone] L[place], Chair 7 Hem Onc Scenery [address] [place] [address] 08/07/2024 9:00 AM EST Hem/Onc Treatment Hematology/Oncology Treatment, [place] 200 [place] [phone] L[place], Chair 7 Hem Onc Scenery 200 [facility] [place] [address] 08/28/2024 9:00 AM EDT Nurse Only Hematology/Oncology Treatment, [place] 200 [place] [phone] [place], Chair 5 Hem Onc [facility] 200 [facility] [place] [address] 08/28/2024 9:30 AM EDT Office Visit Hematology/Oncology [facility] 200 [facility], [place] [phone] Gabby Zavala CRNP [address] [place], [place] [address] [address] 08/28/2024 10:00 AM EDT Hem/Onc Treatment Hematology/Oncology Treatment, [place] 200 [place] [address] [place], Chair 7 Hem Onc [facility] [address] [place] [address], [place] [address] Health Maintenance Due Date Last Done Comments [...] encounter Medical Devices Implanted Type Area Senior Resident Care Director Device Identifier Shelf Expiration Date Model / Serial / Lot Stent Angulo 4fr 11cm - [id number] Implanted:Qty : 1 on 02/08/2024 by Jeffrey Kerr MD at OR [facility] C[employer] [id number] 08/16/2028 [id number] / / [id number] Port Implant W8f Poly Cath - [id number] Implanted:Qty : 1 on 05/02/2024 by Iam Curry MD at OR [facility] Right: Chest CR BARD : PERIPHERAL VASCULAR [id number] 05/17/2025 [id number] / / [id number] documented as of this encounter Visit Diagnoses [...] mL documented in this encounter Care Teams Diamond Driller Helper Relationship Specialty Start Date End Date Malinda Owens CRNP [address] [place] [address] PCP - General Nurse Practitioner 09/20/23 documented as of this encounter
--- OUTSIDE RECORDS SUMMARY | 2024-09-05 14:27 | External Medical Summary | Summary of Care ---
Author Name Unknown Organization [facility] Address [address] [place] [address] Phone [phone] Care Team Providers Care Color Television Console Monitor Name Role Phone Malinda Owens Primary Care Provider [phone] Reason for Visit * Reason Comments Chemotherapy [...] PALONOSETRON HCL Em Ng MD Hematology/Oncology Treatment, [address] [address] Phone: tel: fax: Referral ID Status Reason Start Date Expiration Date V isits Requested Visits Authorized [id number] Authorized 04/30/2024 06/17/2099 [id number] Encounter Details Date Type Department Care Team (Latest Contact Info) Description 06/19/2024 10:00 AM EST Hem/Onc Treatment Hematology/Oncolog y Treatment, [address] [place] [address] [place] Chair 4 Hem Onc [address] [place] [address] Malignant neoplasm of upper-outer quadrant of [...] Enrolled in Current Health. Plans to pickle processor meter from pharmacy today. Instructions provided to [...] and class I obesity. Per review of TAPE LIBRARIAN documentation of 09/25/23, blood glucose values have [...] Recommend nutrition consult with RDN (Registered Dietitian Lawn Care Worker). Lifestyle changes are also indicated including [...] and folate levels and referral to a parts clerk. If hemoglobin levels are below 8 g/dl, we recommend Maternal Medicine ultrasound for growth every 4 weeks after 24 weeks. Consider a blood transfusion if hemoglobin levels fall below 6 g/dL. ([employer] Practice Bulletin Number 95, December,). Consider [...] money to get more. 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 [...] 8:45 AM EST Hem/Onc Treatment Hematology/Oncology Treatment, [place] [address] [place] [phone] [place], Chair 7 Hem Onc Scenery [address] [place] [address] 08/07/2024 9:00 AM EST Hem/Onc Treatment Hematology/Oncology Treatment, [place] 200 [place] [address] L[place], Chair 7 Hem Onc Scenery 200 [facility] [place] [address] 08/28/2024 9:00 AM EDT Nurse Only Hematology/Oncology Treatment, [place] 200 [place] [address] [place], Chair 5 Hem [facility]c [facility] 200 [facility] [place] [address] 08/28/2024 9:30 AM EDT Office Visit Hematology/Oncology [facility] 200 [facility], [place] [phone] Gabby Zavala CRNP [address] [place], [place] [address] [address] 08/28/2024 10:00 AM EDT Hem/Onc Treatment Hematology/Oncology Treatment, [place] 200 [place] [phone] Liam, Chair 7 Hem Onc [facility] [address] [place] [address], [place] [address] Health Maintenance Due Date Last Done Comments [...] this encounter Medical Devices Implanted Type Area Marketing Coordinator Device Identifier Shelf Expiration Date Model / Serial / Lot Stent Angulo 4fr 11cm - [id number] Implanted:Qty : 1 on 02/08/2024 by Jeffrey Kerr MD at OR [facility] Hiri [id number] 08/16/2028 [id number] / / [id number] Port Implant W8f Poly Cath - [id number] Implanted:Qty : 1 on 05/02/2024 by Iam Curry MD at OR [facility] Right: Chest CR BARD : PERIPHERAL VASCULAR [id number] 05/17/2025 [id number] / / [id number] documented as of this encounter Visit Diagnoses [...] mL documented in this encounter Care Teams Color Television Console Monitor Relationship Specialty Start Date End Date Malinda Owens CRNP [address] [place] [address] PCP - General Nurse Practitioner 09/20/23 documented as of this encounter
--- OUTSIDE RECORDS SUMMARY | 2024-09-05 14:27 | External Medical Summary | Summary of Care ---
Author Name Unknown Organization [facility] Address [address] [place] [address] Phone [phone] Care Team Providers Care Assembler Brazer Name Role Phone Malinda Owens Primary Care Provider [phone] Reason for Visit * Reason Comments Chemotherapy C3/D8 - Taxol, Carbo * Episode Based Medications (Routine) - Authorized Specialty Diagnoses / Procedures Referred By Contac t Referred To Contact Diagnoses Malignant neoplasm of upper-outer quadrant of left breast in female, estrogen receptor negative (HCC) Encounter for antineoplastic chemotherapy Encounter for prevention of neutropenia due to chemotherapy Procedures [place] DOXORUBIC HCL 10 MG VL CHEMO WY CARBOPLATIN INJECTION WY FOSAPREPITANT INJECTION WY INJ PEMBROLIZUMAB WY INJECTION, FULPHILA WY PACLITAXEL INJECTION WY INJ CYCLOPHOSPHAMD AUROMEDIC W[place] PALONOSETRON HCL Em Ng MD Hematology/Oncology Treatment, [address] [address] Phone: tel: fax: Referral ID Status Reason Start Date Expiration Date V isits Requested Visits Authorized [id number] Authorized 04/30/2024 06/17/2099 [id number] Encounter Details Date Type Department Care Team (Latest Contact Info) Description 06/26/2024 10:00 AM EST Hem/Onc Treatment Hematology/Oncolog y Treatment, [address] [address] [place], Chair 1 Hem Onc [address] [place] [address] Malignant neoplasm of upper-outer quadrant of [...] and class I obesity. Per review of HEADING MATCHER AND ASSEMBLER documentation of 09/25/23, blood glucose values have [...] Recommend nutrition consult with RDN (Registered Dietitian Food Service Hotel Runner). Lifestyle changes are also indicated including optimizing [...] and folate levels and referral to a hangersmith. If hemoglobin levels are below 8 g/dl, we recommend Maternal Medicine ultrasound for growth every 4 weeks after 24 weeks. Consider a blood transfusion if hemoglobin levels fall below 6 g/dL. ([employer] Practice Bulletin Number 95, December,). Consider [...] money to get more. 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 Not on file Not on file documented as of this encounter Last Filed Vital Signs Vital Sign Reading Time Taken Comments Blood Pressure 107/65 06/26/2024 10:34 AM EST Pulse 88 06/26/2024 10:34 AM EST Temperature 36.3 C (97.3 F) 06/26/2024 10:[address] Respiratory Rate 16 06/26/2024 10:34 AM EST Oxygen Saturation 97% 06/26/2024 10:34 AM EST Inhaled Oxygen Concentration - - Weight 89.2 kg (196 lb 9.6 oz) 06/26/2024 10:34 AM EST Height - - Body Mass Index 29.02 05/02/2024 10:35 AM EST documented in this encounter Nursing Notes * Justine Cool RN - 06/26/2024 5:07 PM EST Goals: Patient will remain free from injury. Possible barriers to meeting goals: ambulating with IV pole, IV benadryl before tx Stability of the patient: Moderately stable - low risk of patient condition declining or worsening Summary regarding today's goals: Met: pt remained free of harm today Patient tolerated treatment well without any acute issues or problems. Patient left facility in stable condition and denied any further needs. * Justine Cool RN - 06/26/2024 5:03 PM EST Chair 3. Port accessed, no issues. Blood return noted in beginning but not noted afterwards. May need TPA next week if not blood returned again. Labs WNL for tx, WBC down trending, will monitor next week. Chemotherapy/Immunotherapy agents: CARBOPLATIN and TAXOL Consent for chemotherapy drug treatment complete, dated, and signed? yes, date - 04/24/2024 Treatment lab parameters met? Yes Has treatment weight changed > than 10%? No Treatment preauthorized? Yes VITALS Filed Vitals: 06/26/24 1034 BP: 107/65 Pulse: 88 Resp: 16 Temp: 36.3 C (97.3 F) TempSrc: Tympanic SpO2: 97% Weight: 89.2 kg (196 lb 9.6 oz) BP Readings from Last 2 Encounters: 06/26/24 107/65 06/19/24 106/72 Pulse Readings from Last 2 Encounters: 06/26/24 88 06/19/24 86 Resp Readings from Last 2 Encounters: 06/26/24 16 06/12/24 16 SpO2 Readings from Last 2 Encounters: 06/26/24 97% 06/19/24 95% Temp Readings from Last 2 Encounters: 06/26/24 36.3 C (97.3 F) (Tympanic) 06/19/24 36.2 C (97.2 F) (Tympanic) Urine protein: N/A Patient education [...] using the heat function. PRE-TREATMENT ASSESSMENT: NEURO: denies symptoms CV/RESP: denies symptoms GI/: denies symptoms OTHER: denies any additional symptoms PAIN: 0 Safety and Risk for Injury Patient will remain free from injury. Ensure appropriate safety devices are available. Provide and maintain safe environment. documented in this encounter Plan of Treatment Upcoming Encounters Date Type Department Care Team (Late st Contact Info) Description 07/31/2024 8:45 AM EST Hem/Onc Treatment Hematology/[address] [phone] [place], Chair 7 Hem Onc Scenery 200 [facility] [place] [address] 08/07/2024 9:00 AM EST Hem/Onc Treatment Hematology/Oncology [address] [address] [place], Chair 7 Hem Onc Scenery 200 [facility] [place] [address] 08/28/2024 9:00 AM EDT Nurse Only Hematology/Oncology Treatment, [address] [phone] [place], Chair 5 Hem Onc Scenery 200 [facility] [place] [address] 08/28/2024 9:30 AM EDT Office Visit Hematology/Oncology Scenery [place] [address] [place] [phone] Gabby Zavala CRNP [address] [place] [address] [place] [address] 08/28/2024 10:00 AM EDT Hem/Onc Treatment Hematology/Oncology Treatment [address] [place] [phone] L[place], Chair 7 Hem Onc Scenery [address] [place] [address] Health Maintenance Due Date Last Done Comments [...] and 19+ Years) Aged Out No longer elib le based on patient's age to complete this topic documented as of this encounter Medical Devices Implanted Type Area Oil Recovery Unit Operator Device Identifier Shelf Expiration Date Model / Serial / Lot Stent Angulo 4fr 11cm - [id number] Implanted:Qty : 1 on 02/08/2024 by Jeffrey Kerr MD at OR [facility] [employer] [id number] 08/16/2028 6546 / / [id number] Port Implant W8f Poly Cath - [id number] Implanted:Qty : 1 on 05/02/2024 by Iam Curry MD at OR [facility] Right: Chest CR BARD : PERIPHERAL VASCULAR [id number] 05/17/2025 [id number] / / [id number] documented as of this encounter Visit Diagnoses [...] FROM LIGHT, ONCE, 1 dose, On Bibi 06/26/24 at 1400Indications:Malignant neoplasm of upper-outer quadrant of left breast in female, estrogen receptor negative (HCC),Encounter for antineoplastic chemotherapy,Encounter for prevention of neutropenia due to chemotherapy Start Infusion 06/26/2024 12:45 PM EST 219 mg 510 mL/hr dexAMETHasone (Decadron) tab 12 mg 12 mg, Oral, ONCE, On Bibi 06/26/24 at 1130, For 1 doseIndications:Malignant neoplasm of upper-outer quadrant of left breast in female, estrogen receptor negative (HCC),Encounter for antineoplastic chemotherapy,Encounter for prevention of neutropenia due to chemotherapy Given 06/26/2024 11:11 AM EST 12 mg diphenhydrAMINE (Benadryl) inj 25 mg 25 mg, IV Push, ONCE, On Bibi 06/26/24 at 1130, For 1 doseIndications:Malignant neoplasm of upper-outer quadrant of left breast in female, estrogen receptor negative (HCC),Encounter for antineoplastic chemotherapy,Encounter for prevention of neutropenia due to chemotherapy Given 06/26/2024 11:11 AM EST 25 mg Famotidine (Pepcid) inj 20 mg 20 mg, IV Push, ONCE, On Bibi 06/26/24 at 1130, For 1 dose, Give IV push over 2 minutes.Indications:Maligna nt neoplasm of upper-outer quadrant of left breast in female, estrogen receptor negative (HCC),Encounter for antineoplastic chemotherapy,Encounter for prevention of neutropenia due to chemotherapy Given 06/26/2024 11:11 AM EST 20 mg hEParin 100 UNIT/ML Lock Flush inj 500 Units 500 Units (5 mL), IV Lock, PRN Other, IV Flush, Starting on Sun06/26/24 at 1054, Until Sun06/26/24 at 2125, For 24 hours, Do not flush if lock, PICC, or central line not in place; IV infusing or unable to flush.Indications:Malignant neoplasm of upper-outer quadrant of left breast in female, estrogen receptor negative (HCC),Encounter for antineoplastic chemotherapy,Encounter for prevention of neutropenia due to chemotherapy Given 06/26/2024 1:19 PM EST 500 Units NSS infusion Intravenous, at 50 mL/hr, PRN, Starting on Sun06/26/24 at 1200, Until Sun06/26/24 at 2125, Maintenance lineIndications:Malignant neoplasm of upper-outer quadrant of left breast in female, estrogen receptor negative (HCC),Encounter for antineoplastic chemotherapy,Encounter for prevention of neutropenia due to chemotherapy Start Infusion 06/26/2024 11:10 AM EST 50 mL/hr PACLitaxel (Taxol) 165 mg in NSS 250 mL infusion 165 mg (rounded from 164.8 mg = 80 mg/m2 2.06 m2 Treatment Plan BSA from Recorded weight), IV Piggyback, ONCE, 1 dose, On Sun06/26/24 at 1300, Administer over 60 Minutes, Administer through 0.22 micron low protein binding filter!Indications:Malignan t neoplasm of upper-outer quadrant of left breast in female, estrogen receptor negative (HCC),Encounter for antineoplastic chemotherapy,Encounter for prevention of neutropenia due to chemotherapy Start Infusion 06/26/2024 11:39 AM EST 165 mg 255 mL/hr Palonosetron (Aloxi) inj SOLN 0.25 mg 0.25 mg, IV Push, ONCE, On Sun06/26/24 at 1130, For 1 dose, Restricted per [facility] antiemetic guidelinesIndications:[place] nant neoplasm of upper-outer quadrant of left breast in female, estrogen receptor negative (HCC),Encounter for antineoplastic chemotherapy,Encounter for prevention of neutropenia due to chemotherapy Given 06/26/2024 11:11 AM EST 0.25 mg sodium chloride 0.9 % flush central line 10 mL 10 mL, IV Push, PRN Other, IV Flush, Starting on Bibi 06/26/24 at 1054, Until Bibi 06/26/24 at 2125, For 24 hours, Do not flush if lock, PICC, or central line not in place; IV infusing or unable to flush.Indications:Malignant neoplasm of upper-outer quadrant of left breast in female, estrogen receptor negative (HCC),Encounter for antineoplastic chemotherapy,Encounter for prevention of neutropenia due to chemotherapy Given 06/26/2024 1:19 PM EST 10 mL documented in this encounter Care Teams Assembler Brazer Relationship Specialty Start Date End Date Malinda Owens CRNP [address] [place] [address] PCP - General Nurse Practitioner 09/20/23 documented as of this encounter
--- OUTSIDE RECORDS SUMMARY | 2024-09-05 14:27 | External Medical Summary | Summary of Care ---
Author Name Unknown Organization [facility] Address [address] [place] [address] Phone [phone] Care Team Providers Care Etcher Apprentice Name Role Phone Malinda Owens Primary Care Provider [phone] Reason for Visit * Reason Comments Chemotherapy C3/D8 - Taxol, Carbo * Episode Based Medications (Routine) - Authorized Specialty Diagnoses / Procedures Referred By Contac t Referred To Contact Diagnoses Malignant neoplasm of upper-outer quadrant of left breast in female, estrogen receptor negative (HCC) Encounter for antineoplastic chemotherapy Encounter for prevention of neutropenia due to chemotherapy Procedures AR DOXORUBIC HCL 10 MG VL CHEMO AR CARBOPLATIN INJECTION AR FOSAPREPITANT INJECTION AR INJ PEMBROLIZUMAB AR INJECTION, FULPHILA AR PACLITAXEL INJECTION AR INJ CYCLOPHOSPHAMD AUROMEDIC AR PALONOSETRON HCL Em Ng MD Hematology/Oncology Treatment, [address] [address] Phone: tel: fax: Referral ID Status Reason Start Date Expiration Date V isits Requested Visits Authorized [id number] Authorized 04/30/2024 06/17/2099 999 [id number] Encounter Details Date Type Department Care Team (Latest Contact Info) Description 06/26/2024 10:00 AM EST Hem/Onc Treatment Hematology/Oncolog y Treatment, [address] [address] [place], Chair [address] [place] [address] Malignant neoplasm of upper-outer quadrant of [...] complete. Enrolled in Current Health. Plans to chart picker meter from pharmacy today. Instructions provided [...] and class I obesity. Per review of DRAW FIRE OPERATOR documentation of 09/25/23, blood glucose values [...] Recommend nutrition consult with RDN (Registered Dietitian Guest Service Host). Lifestyle changes are also indicated including optimizing [...] and folate levels and referral to a tax collection coordinator. If hemoglobin levels are below 8 g/dl, we recommend Maternal Medicine ultrasound for growth every 4 weeks after 24 weeks. Consider a blood transfusion if hemoglobin levels fall below 6 g/dL. ([employer] and Cartography Supervisor Practice Bulletin Number 95, December,). Consider Venofer [...] money to get more. 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 on [...] 8:45 AM EST Hem/Onc Treatment [address]ematology[address] [phone] [place], Chair 7 Hem Onc Scenery [address] [facility] [place] [address] 08/07/2024 9:00 AM EST Hem/Onc Treatment [address]ematology[address] [address] [place], Chair 7 Hem Onc Scenery 200 [facility] [place] [address] 08/28/2024 9:00 AM EDT Nurse Only Hematology/[address], [address] [phone] [place], Chair 5 Hem Onc Scenery 200 [facility] [place] [address] 08/28/2024 9:30 AM EDT Office Visit Hematology/Oncology Scenery [place] [address] [place] [phone] Gabby Zavala CRNP [address] [place] [address] [place] [address] 08/28/2024 10:00 AM EDT Hem/Onc Treatment Hematology/Oncology Treatment [address] [place] [phone] [place], Chair 7 Hem Onc Scenery [address] [place] [address] Health Maintenance Due Date Last Done Comments [...] encounter Medical Devices Implanted Type Area Special Education Teacher Device Identifier Shelf Expiration Date Model / Serial / Lot Stent Angulo 4fr 11cm - [id number] Implanted:Qty : 1 on 02/08/2024 by Jeffrey Kerr MD at OR [facility] [employer] [id number] 08/16/2028 [id number] / / [id number] Port Implant W8f Poly Cath - [id number] Implanted:Qty : 1 on 05/02/2024 by Iam Curry MD at OR [facility] Right: Chest CR BARD : PERIPHERAL VASCULAR [id number] 05/17/2025 [id number] / / [id number] documented as of this encounter Visit Diagnoses [...] mL documented in this encounter Care Teams Etcher Apprentice Relationship Specialty Start Date End Date Malinda Owens CRNP [address] [place] [address] PCP - General Nurse Practitioner 09/20/23 documented as of this encounter
--- OUTSIDE RECORDS SUMMARY | 2024-09-05 14:27 | External Medical Summary | Summary of Care ---
Author Name Unknown Organization [facility] Address [address] [place] [address] Phone [phone] Care Team Providers Care Electronic Warfare Officer Name Role Phone Malinda Owens Primary Care Provider [phone] Reason for Visit * Reason Comments Chemotherapy [...] PALONOSETRON HCL Em Ng MD Hematology/Oncology Treatment, [address] [address] Phone: tel: fax: Referral ID Status Reason Start Date Expiration Date V isits Requested Visits Authorized [id number] Authorized 04/30/2024 06/17/2099 [id number] Encounter Details Date Type Department Care Team (Latest Contact Info) Description 06/26/2024 10:00 AM EST Hem/Onc Treatment Hematology/Oncolog y Treatment, [address] [address] [place], Chair 1 Hem Onc [address] [place] [address] Malignant neoplasm of upper-outer quadrant of [...] and class I obesity. Per review of WELL SHOOTER documentation of 09/25/23, blood glucose values have [...] Recommend nutrition consult with RDN (Registered Dietitian Treating Inspector). Lifestyle changes are also indicated including optimizing [...] folate levels and referral to a director case. If hemoglobin levels are below 8 g/dl, we recommend Maternal Medicine ultrasound for growth every 4 weeks after 24 weeks. Consider a blood transfusion if hemoglobin levels fall below 6 g/dL. ([employer]etricians and Projection Technician Practice Bulletin Number 95, December,). Consider Venofer [...] money to get more. 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 Not on file [...] 8:45 AM EST Hem/Onc Treatment Hematology/[address]cology [address], [address] [phone] [place], Chair 7 Hem Onc Scenery 200 [facility] [place] [address] 08/07/2024 9:00 AM EST Hem/Onc Treatment Hematology/Oncology [address] [address] [place], Chair 7 Hem Onc Scenery 200 [facility] [place] [address] 08/28/2024 9:00 AM EDT Nurse Only Hematology/Oncology Treatment, [address] [phone] [place], Chair 5 Hem Onc Scenery 200 [facility] [place] [address] 08/28/2024 9:30 AM EDT Office Visit Hematology/Oncology Scenery [place] [address] [place] [phone] Gabby Zavala CRNP [address] [place] [address] [place] [address] 08/28/2024 10:00 AM EDT Hem/Onc Treatment Hematology/Oncology Treatment [address] [place] [phone] [place], Chair 7 Hem Onc Scenery [address] [place] [address] Health Maintenance Due Date Last Done Comments [...] this encounter Medical Devices Implanted Type Area Educational Adviser Device Identifier Shelf Expiration Date Model / Serial / Lot Stent Angulo 4fr 11cm - [id number] Implanted:Qty : 1 on 02/08/2024 by Jeffrey Kerr MD at OR [facility] [employer] [id number] 08/16/2028 [id number] / / [id number] Port Implant W8f Poly Cath - [id number] Implanted:Qty : 1 on 05/02/2024 by Iam Curry MD at OR [facility] Right: Chest CR BARD : PERIPHERAL VASCULAR [id number] 05/17/2025 [id number] / / [id number] documented as of this encounter Visit Diagnoses [...] mL documented in this encounter Care Teams Electronic Warfare Officer Relationship Specialty Start Date End Date Malinda Owens CRNP [address] [place] [address] PCP - General Nurse Practitioner 09/20/23 documented as of this encounter
--- OUTSIDE RECORDS SUMMARY | 2024-09-05 14:27 | External Medical Summary | Summary of Care ---
Author Name Unknown Organization [facility] Address [address] [place] [address] Phone [phone] Care Team Providers Care Warehouse Lead Name Role Phone Malinda Owens Primary Care Provider [phone] Reason for Visit * Reason Comments Chemotherapy C3/D8 - Taxol, Carbo * Episode Based Medications (Routine) - Authorized Specialty Diagnoses / Procedures Referred By Contac t Referred To Contact Diagnoses Malignant neoplasm of upper-outer quadrant of left breast in female, estrogen receptor negative (HCC) Encounter for antineoplastic chemotherapy Encounter for prevention of neutropenia due to chemotherapy Procedures TX DOXORUBIC HCL 10 MG VL CHEMO TX CARBOPLATIN INJECTION TX FOSAPREPITANT INJECTION TX INJ PEMBROLIZUMAB TX INJECTION, FULPHILA TX PACLITAXEL INJECTION TX INJ CYCLOPHOSPHAMD AUROMEDIC TX PALONOSETRON HCL Em Ng MD Hematology/Oncology Treatment, [address] [address] Phone: tel: fax: Referral ID Status Reason Start Date Expiration Date V isits Requested Visits Authorized [id number] Authorized 04/30/2024 06/17/2099 999 [id number] Encounter Details Date Type Department Care Team (Latest Contact Info) Description 06/26/2024 10:00 AM EST Hem/Onc Treatment Hematology/Oncolog y Treatment, [address] [address] [place], Chair 1 Hem Onc [address] [place] [address] Malignant neoplasm of upper-outer quadrant of [...] and class I obesity. Per review of CUSTOMER ENERGY SPECIALIST documentation of 09/25/23, blood glucose values [...] Recommend nutrition consult with RDN (Registered Dietitian Retail Branch Manager). Lifestyle changes are also indicated including [...] and folate levels and referral to a geotechnician. If hemoglobin levels are below 8 g/dl, we recommend Maternal Medicine ultrasound for growth every 4 weeks after 24 weeks. Consider a blood transfusion if hemoglobin levels fall below 6 g/dL. ([employer]stetricians and Lineworker Practice Bulletin Number 95, December,). Consider Venofer [...] to get more. 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 [...] 8:45 AM EST Hem/Onc Treatment Hematology/[address]cology [address], [address] [phone] [place], Chair 7 Hem Onc Scenery 200 [facility] [place] [address] 08/07/2024 9:00 AM EST Hem/Onc Treatment Hematology/Oncology [address] [address] [place], Chair 7 Hem Onc Scenery 200 [place] [address] 08/28/2024 9:00 AM EDT Nurse Only Hematology/Oncology Treatment, [address] [phone] [place], Chair 5 Hem Onc Scenery [address] [facility] [place] [address] 08/28/2024 9:30 AM EDT Office Visit Hematology/Oncology Scenery [place] [address] [place] [phone] Gabby Zavala CRNP [address] [place] [address] [place] [address] 08/28/2024 10:00 AM EDT Hem/Onc Treatment Hematology/Oncology Treatment [address] [place] [phone] [place], Chair 7 Hem Onc Scenery [address] [place] [address] Health Maintenance Due Date Last Done Comments [...] this encounter Medical Devices Implanted Type Area Demand Equipment Repairer Device Identifier Shelf Expiration Date Model / Serial / Lot Stent Angulo 4fr 11cm - [id number] Implanted:Qty : 1 on 02/08/2024 by Jeffrey Kerr MD at OR [facility] [employer] [id number] 08/16/2028 [id number] / / [id number] Port Implant W8f Poly Cath - [id number] Implanted:Qty : 1 on 05/02/2024 by Iam Curry MD at OR [facility] Right: Chest CR BARD : PERIPHERAL VASCULAR [id number] 05/17/2025 [id number] / / [id number] documented as of this encounter Visit Diagnoses [...] mL documented in this encounter Care Teams Warehouse Lead Relationship Specialty Start Date End Date Malinda Owens CRNP [address] [place] [address] PCP - General Nurse Practitioner 09/20/23 documented as of this encounter
--- OUTSIDE RECORDS SUMMARY | 2024-09-05 14:27 | External Medical Summary | Summary of Care ---
Author Name Unknown Organization [facility] Address [address] [place] [address] Phone [phone] Care Team Providers Care Certified Hyperbaric Technologist Name Role Phone Malinda Owens Primary Care Provider [phone] Reason for Visit * Reason Comments Chemotherapy [...] PALONOSETRON HCL Em Ng MD Hematology/Oncology Treatment, [address] [address] Phone: tel: fax: Referral ID Status Reason Start Date Expiration Date V isits Requested Visits Authorized [id number] Authorized 04/30/2024 06/17/2099 999 [id number] Encounter Details Date Type Department Care Team (Latest Contact Info) Description 06/19/2024 10:00 AM EST Hem/Onc Treatment Hematology/Oncolog y Treatment, [address] [place] [address] [place] Chair 4 Hem On[address] [place] [address] Malignant neoplasm of upper-outer [...] complete. Enrolled in Current Health. Plans to picking tech meter from pharmacy today. Instructions provided to [...] and class I obesity. Per review of SCRUBBER MACHINE TENDER documentation of 09/25/23, blood glucose values [...] Recommend nutrition consult with RDN (Registered Dietitian Podiatric Surgeon). Lifestyle changes are also indicated including optimizing [...] and folate levels and referral to a assistant press operator offset. If hemoglobin levels are below 8 g/dl, we recommend Maternal Medicine ultrasound for growth every 4 weeks after 24 weeks. Consider a blood transfusion if hemoglobin levels fall below 6 g/dL. ([employer] Obstetricians and Petroleum Laboratory Technician Practice Bulletin Number 95, December,). Consider [...] money to get more. 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 Not on [...] 8:45 AM EST Hem/Onc Treatment Hematology/Oncology Treatment, [place] [address] [place] [phone] [place], Chair 7 Hem Onc Scenery [address] [place] [address] 08/07/2024 9:00 AM EST Hem/Onc Treatment Hematology/Oncology Treatment, [place] 200 [place] [phone] [place], Chair 7 Hem Onc Scenery 200 [facility] [place] [address] 08/28/2024 9:00 AM EDT Nurse Only Hematology/Oncology Treatment, [place] [address] [place] [address] [place], Chair 5 Hem Onc [facility] 200 [facility] [place] [address] 08/28/2024 9:30 AM EDT Office Visit Hematology/Oncology [facility] 200 [facility], [place] [phone] Gabby Zavala CRNP [address] [place], [place] [address] [address] 08/28/2024 10:00 AM EDT Hem/Onc Treatment Hematology/Oncology Treatment, [place] 200 [place] [address] [place], Chair 7 Hem Onc [facility] [address] [place] [address], [place] [address] Health Maintenance Due Date Last Done Comments [...] this encounter Medical Devices Implanted Type Area Global Creative Chairman Device Identifier Shelf Expiration Date Model / Serial / Lot Stent Angulo 4fr 11cm - [id number] Implanted:Qty : 1 on 02/08/2024 by Jeffrey Kerr MD at OR [facility] [employer] [id number] 08/16/2028 [id number] / / [id number] Port Implant W8f Poly Cath - [id number] Implanted:Qty : 1 on 05/02/2024 by Iam Curry MD at OR [facility] Right: Chest CR BARD : PERIPHERAL VASCULAR [id number] 05/17/2025 [id number] / / [id number] documented as of this encounter Visit Diagnoses [...] mg, IV Piggyback, ONCE, 1 dose, On Bbii 06/19/24 at 1215, Administer over 30 Minutes, [...] mL documented in this encounter Care Teams Certified Hyperbaric Technologist Relationship Specialty Start Date End Date Malinda Owens CRNP [address] [place] [address] PCP - General Nurse Practitioner 09/20/23 documented as of this encounter
--- OUTSIDE RECORDS SUMMARY | 2024-09-05 14:27 | External Medical Summary | Summary of Care ---
Author Name Unknown Organization [facility] Address [address] [place] [address] Phone [phone] Care Team Providers Care Cat Hooker Name Role Phone Malinda Owens Primary Care Provider [phone] Reason for Visit * Reason Comments Chemotherapy Day 1, cycle 3 keytr uda, paclitaxel, carboplatin * Episode Based Medications (Routine) - Authorized Specialty Diagnoses / Procedures Referred By Bennie gilliland Referred To Contact Diagnoses Malignant neoplasm of upper-outer quadrant of left breast in female, estrogen receptor negative (HCC) Encounter for antineoplastic chemotherapy Encounter for prevention of neutropenia due to chemotherapy Procedures WI DOXORUBIC HCL 10 MG VL CHEMO WI CARBOPLATIN INJECTION WI FOSAPREPITANT INJECTION WI INJ PEMBROLIZUMAB WI INJECTION, FULPHILA WI PACLITAXEL INJECTION WI INJ CYCLOPHOSPHAMD AUROMEDIC WI PALONOSETRON HCL Em Ng MD Hematology/Oncology Treatment, [address] [address] Phone: tel: fax: Referral ID Status Reason Start Date Expiration Date V isits Requested Visits Authorized [id number] Authorized 04/30/2024 06/17/2099 999 [id number] Encounter Details Date Type Department Care Team (Latest Contact Info) Description 06/19/2024 10:00 AM EST Hem/Onc Treatment Hematology/Oncolog y Treatment, [address] [place] [address] [place] Chair 4 Hem On[address] [place] [address] Malignant neoplasm of upper-outer quadrant of [...] and class I obesity. Per review of COMMERCIAL ENGINEER documentation of 09/25/23, blood glucose values [...] Recommend nutrition consult with RDN (Registered Dietitian Filter Tank Tender Helper Head). Lifestyle changes are also indicated including optimizing [...] and folate levels and referral to a coremaker supervisor. If hemoglobin levels are below 8 g/dl, we recommend Maternal Medicine ultrasound for growth every 4 weeks after 24 weeks. Consider a blood transfusion if hemoglobin levels fall below 6 g/dL. ([employer] Obstetricians and Optical Coating Technician Practice Bulletin Number 95, December,). Consider [...] money to get more. 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 [...] 8:45 AM EST Hem/Onc Treatment Hematology/Oncology Treatment, [place] [address] [place] [phone] [place], Chair 7 Hem Onc Scenery [address] [place] [address] 08/07/2024 9:00 AM EST Hem/Onc Treatment Hematology/Oncology Treatment, [place] 200 [place] [address] [place], Chair 7 Hem Onc Scenery 200 [facility] [place] [address] 08/28/2024 9:00 AM EDT Nurse Only Hematology/Oncology Treatment, [place] 200 [place] [phone] [place], Chair 5 Hem [facility] 200 [facility] [place] [address] 08/28/2024 9:30 AM EDT Office Visit Hematology/Oncology [facility] 200 [facility], [place] [phone] Gabby Zavala CRNP [address] [place], [place] [address] [address] 08/28/2024 10:00 AM EDT Hem/Onc Treatment Hematology/Oncology Treatment, [place] 200 [place] [address] [place], Chair 7 Hem [facility] [address] [place] [address], [place] [address] Health Maintenance Due Date Last Done Comments [...] encounter Medical Devices Implanted Type Area Manager Distribution Center Device Identifier Shelf Expiration Date Model / Serial / Lot Stent Angulo 4fr 11cm - [id number] Implanted:Qty : 1 on 02/08/2024 by Jeffrey Kerr MD at OR [facility] [employer] [id number] 08/16/2028 [id number] / / [id number] Port Implant W8f Poly Cath - [id number] Implanted:Qty : 1 on 05/02/2024 by Iam Curry MD at OR [facility] Right: Chest CR BARD : PERIPHERAL VASCULAR [id number] 05/17/2025 [id number] / / [id number] documented as of this encounter Visit Diagnoses [...] mL documented in this encounter Care Teams Cat Hooker Relationship Specialty Start Date End Date Malinda Owens CRNP [address] [place] [address] PCP - General Nurse Practitioner 09/20/23 documented as of this encounter
--- OUTSIDE RECORDS SUMMARY | 2024-09-05 14:27 | External Medical Summary | Summary of Care ---
Author Name Unknown Organization [facility] Address [address] [place] [address] Phone [phone] Care Team Providers Care Meter Tester Polyphase Name Role Phone Malinda Owens Primary Care Provider [phone] Reason for Visit * Reason Comments Chemotherapy C3/D8 - Taxol, Carbo * Episode Based Medications (Routine) - Authorized Specialty Diagnoses / Procedures Referred By Contac t Referred To Contact Diagnoses Malignant neoplasm of upper-outer quadrant of left breast in female, estrogen receptor negative (HCC) Encounter for antineoplastic chemotherapy Encounter for prevention of neutropenia due to chemotherapy Procedures OK DOXORUBIC HCL 10 MG VL CHEMO OK CARBOPLATIN INJECTION OK FOSAPREPITANT INJECTION OK INJ PEMBROLIZUMAB OK INJECTION, FULPHILA OK PACLITAXEL INJECTION OK INJ CYCLOPHOSPHAMD AUROMEDIC OK PALONOSETRON HCL Em Ng MD Hematology/Oncology Treatment, [address] [address] Phone: tel: fax: Referral ID Status Reason Start Date Expiration Date V isits Requested Visits Authorized [id number] Authorized 04/30/2024 06/17/2099 [id number] Encounter Details Date Type Department Care Team (Latest Contact Info) Description 06/26/2024 10:00 AM EST Hem/Onc Treatment Hematology/Oncolog y Treatment, [address] [address] [place], Chair 1 Hem On[address] [place] [address] Malignant neoplasm of upper-outer quadrant of [...] complete. Enrolled in Current Health. Plans to pharmacy picking technician meter from pharmacy today. Instructions provided to [...] and class I obesity. Per review of DESULFURIZER MACHINE documentation of 09/25/23, blood glucose values have [...] Recommend nutrition consult with RDN (Registered Dietitian Airplane Flight Attendant). Lifestyle changes are also indicated including [...] and folate levels and referral to a poker prop player. If hemoglobin levels are below 8 g/dl, we recommend Maternal Medicine ultrasound for growth every 4 weeks after 24 weeks. Consider a blood transfusion if hemoglobin levels fall below 6 g/dL. ([employer] [facility] [employer] [facility] Bulletin Number 95, December,). Consider Venofer [...] money to get more. 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 on file [...] 8:45 AM EST Hem/Onc Treatment [address]ematology[address] [phone] [place], Chair 7 Hem Onc Scenery [address] [facility] [place] [address] 08/07/2024 9:00 AM EST Hem/Onc Treatment Hematology/[address] [address] [place], Chair 7 Hem Onc Scenery [address] [facility] [place] [address] 08/28/2024 9:00 AM EDT Nurse Only Hematology/[address], [address] [phone] [place], Chair 5 Hem Onc Scenery [address] [facility] [place] [address] 08/28/2024 9:30 AM EDT Office Visit Hematology/Oncology Scenery [place] [address] [place] [phone] Gabby Zavala CRNP [address] [place] [address] [place] [address] 08/28/2024 10:00 AM EDT Hem/Onc Treatment Hematology/Oncology Treatment [address] [place] [phone] [place], Chair 7 Hem Onc Scenery [address] [place] [address] Health Maintenance Due Date Last Done Comments [...] this encounter Medical Devices Implanted Type Area Fleet Mechanic Device Identifier Shelf Expiration Date Model / Serial / Lot Stent Angulo 4fr 11cm - [id number] Implanted:Qty : 1 on 02/08/2024 by Jeffrey Kerr MD at OR [facility] [employer] [id number] 08/16/2028 [id number] / / [id number] Port Implant W8f Poly Cath - [id number] Implanted:Qty : 1 on 05/02/2024 by Iam Curry MD at OR [facility] Right: Chest CR BARD : PERIPHERAL VASCULAR [id number] 05/17/2025 [id number] / / [id number] documented as of this encounter Visit Diagnoses [...] For 1 dose, Restricted per [facility]HS antiemetic guidelinesIndications:Malforset nant neoplasm of upper-outer quadrant of left [...] mL documented in this encounter Care Teams Meter Tester Polyphase Relationship Specialty Start Date End Date Malinda Owens CRNP [address] [place] [address] PCP - General Nurse Practitioner 09/20/23 documented as of this encounter
--- OUTSIDE RECORDS SUMMARY | 2024-09-05 14:27 | External Medical Summary | Summary of Care ---
Author Name Unknown Organization [facility] Address [address] [place] [address] Phone [phone] Care Team Providers Care College Admissions Counselor Name Role Phone Malinda Owens Primary Care Provider [phone] Reason for Visit * Reason Comments Chemotherapy [...] PALONOSETRON HCL Em Ng MD Hematology/Oncology Treatment, [address] [address] Phone: tel: fax: Referral ID Status Reason Start Date Expiration Date V isits Requested Visits Authorized [id number] Authorized 04/30/2024 06/17/2099 [id number] Encounter Details Date Type Department Care Team (Latest Contact Info) Description 06/26/2024 10:00 AM EST Hem/Onc Treatment Hematology/Oncolog y Treatment, [address] [phone] [place], Chair 1 Hem On[address] [place] [address] Malignant neoplasm of upper-outer quadrant of [...] complete. Enrolled in Current Health. Plans to slat pickler meter from pharmacy today. Instructions provided [...] and class I obesity. Per review of PACK CHANGER documentation of 09/25/23, blood glucose values have [...] Recommend nutrition consult with RDN (Registered Dietitian [place] Seamer). Lifestyle changes are also indicated including optimizing [...] and folate levels and referral to a numerical control operator. If hemoglobin levels are below 8 g/dl, we recommend Maternal Medicine ultrasound for growth every 4 weeks after 24 weeks. Consider a blood transfusion if hemoglobin levels fall below 6 g/dL. ([employer] [facility] [employer] Bulletin Number 95, December,). Consider [...] money to get more. 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 Not on file [...] 8:45 AM EST Hem/Onc Treatment Hematology/[address], [address] [phone] [place], Chair 7 Hem Onc Scenery [address] [place] [address] 08/07/2024 9:00 AM EST Hem/Onc Treatment Hematology/Oncology [address] [address] [place], Chair 7 Hem Onc Scenery [address] [place] [address] 08/28/2024 9:00 AM EDT Nurse Only Hematology/Oncology Treatment, [address] [phone] [place], Chair 5 Hem Onc Scenery [address] [place] [address] 08/28/2024 9:30 AM EDT Office Visit Hematology/Oncology Scenery [place] [address] [place] [phone] Gabby Zavala CRNP [address] [place] [address] [place] [address] 08/28/2024 10:00 AM EDT Hem/Onc Treatment Hematology/Oncology Treatment [address] [place] [phone] [place], Chair 7 Hem Onc Scenery [address] [place] [address] Health Maintenance Due Date Last Done Comments [...] this encounter Medical Devices Implanted Type Area Canvas Baster Jumpbasting Device Identifier Shelf Expiration Date Model / Serial / Lot Stent Angulo 4fr 11cm - [id number] Implanted:Qty : 1 on 02/08/2024 by Jeffrey Kerr MD at OR [facility] [employer] [id number] 08/16/2028 [id number] / / [id number] Port Implant W8f Poly Cath - [id number] Implanted:Qty : 1 on 05/02/2024 by Iam Curry MD at OR [facility] Right: Chest CR BARD : PERIPHERAL VASCULAR [id number] 05/17/2025 [id number] / / [id number] documented as of this encounter Visit Diagnoses [...] mL documented in this encounter Care Teams College Admissions Counselor Relationship Specialty Start Date End Date Malinda Owens CRNP [address] [place] [address] PCP - General Nurse Practitioner 09/20/23 documented as of this encounter
--- OUTSIDE RECORDS SUMMARY | 2024-09-05 14:28 | External Medical Summary | Summary of Care ---
Author Name Unknown Organization [facility] Address [address] [place] [address] Phone [phone] Care Team Providers Care Chief Executive Or Managing Director Name Role Phone Roman Malinda DUONG Primary Care Provider [phone] Reason for Visit * Reason Comments Chemotherapy C4 D1 Keytruda, Taxo l, Carbo, Lupron * Episode Based Medications (Routine) - Authorized [...] PALONOSETRON HCL Em Ng MD Hematology/Oncology Treatment, [address] [place] [address] Phone: tel: fax: Referral ID Status Reason Start Date Expiration Date V isits Requested Visits Authorized [id number] Authorized 04/30/2024 06/17/2099 [id number] Encounter Details Date Type Department Care Team (Latest Contact Info) Description 07/17/2024 10:00 AM EST Hem/Onc Treatment Hematology/Oncolog y Treatment, [address] [place] [address] [place] Chair 3 Hem Onc [address] [place] [address] Encounter for antineoplastic chemotherapy*; Malignant neoplasm of upper-outer quadrant of left breast in female, estrogen receptor negative (HCC); Encounter for prevention of neutropenia due to chemotherapy; Encounter for fertility preservation procedure; Suppression of ovarian secretion Allergies No known active allergiesdocumented as of this encounter (statuses as of 07/26/2024) Medications 19 29-1 MG Oral Tablet Chewable [...] as of this encounter (statuses as of 07/26/2024) Active Problems Problem Noted Date Diagnosed Date [...] in Current Health. Plans to picker tender meter from pharmacy today. Instructions provided [...] and class I obesity. Per review of BENEFITS ADVISOR documentation of 09/25/23, blood glucose values have [...] Recommend nutrition consult with RDN (Registered Dietitian Mail Censor). Lifestyle changes are also indicated including optimizing [...] and folate levels and referral to a crime lab technician. If hemoglobin levels are below 8 g/dl, we recommend Maternal Medicine ultrasound for growth every 4 weeks after 24 weeks. Consider a blood transfusion if hemoglobin levels fall below 6 g/dL. ([employer] Information Clerk Practice Bulletin Number 95, December,). Consider Venofer [...] as of this encounter (statuses as of 07/26/2024) Resolved Problems Problem Noted Date Diagnosed Date Resolved Date Abnormal glucose tolerance i n mother complicating 04/19/2023 08/31/2023 Overview (04/19/2023): Failed early glucola. 3hr GTT ordered documented as of this encounter (statuses as of 07/26/2024) Immunizations Name Administration Dates Next Due DTP [...] money to get more. 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 Not on file Not on file Not on file documented as of this encounter Last Filed Vital Signs Vital Sign Reading Time Taken Comments Blood Pressure 112/74 07/17/2024 10:20 AM EST Pulse 84 07/17/2024 10:20 AM EST Temperature 36.8 C (98.2 F) 07/17/2024 10:[address] Respiratory Rate 18 07/17/2024 10:20 AM EST Oxygen Saturation 96% 07/17/2024 10:20 AM EST Inhaled Oxygen Concentration - - Weight 91.4 kg (201 lb 9.6 oz) 07/17/2024 10:20 AM EST Height - - Body Mass Index 29.76 05/02/2024 10:35 AM EST documented in this encounter Nursing Notes * Jaqueline Arenas RN - 07/17/2024 2:36 PM EST Patient tolerated treatment without issue. VAD with brisk blood return and flushed with 10 ml NSS and Heparin 5 ml (100 units/ml). Lopez needle removed intact. Goals: Patient will remain free from injury. Possible barriers to meeting goals: Ambulating with IV pole Stability of the patient: Moderately stable - low risk of patient condition declining or worsening Summary regarding today's goals: Met: Patient remained free from harm. Pt discharged in stable condition. * Jaqueline Arenas RN - 07/17/2024 1:05 PM EST Chair 5 Patient here for lab draw from port and treatment. Port accessed without issue an labs drawn. Chemotherapy/Immunotherapy agents: CARBOPLATIN, KEYTRUDA, LUPRON, and TAXOL Consent for chemotherapy drug treatment complete, dated, and signed? yes, date - 04/24/24 Treatment lab parameters met? Yes Has treatment weight changed > than 10%? No Treatment preauthorized? Yes VITALS Filed Vitals: 07/17/24 1020 BP: 112/74 Pulse: 84 Resp: 18 Temp: 36.8 C (98.2 F) SpO2: 96% Weight: 91.4 kg (201 lb 9.6 oz) BP Readings from Last 2 Encounters: 07/17/24 112/74 07/03/24 94/69 Pulse Readings from Last 2 Encounters: 07/17/24 84 07/03/24 108 Resp Readings from Last 2 Encounters: 07/17/24 18 07/03/24 18 SpO2 Readings from Last 2 Encounters: 07/17/24 96% 07/03/24 96% Temp Readings from Last 2 Encounters: 07/17/24 36.8 C (98.2 F) 07/03/24 36.9 C (98.4 F) (Tympanic) Urine protein: N/A Patient education [...] 8:45 AM EST Hem/Onc Treatment [address]emat[address] [id number] Chair [place] [address] Hem On[address] [place] [address] 08/07/2024 9:00 AM EST Hem/Onc Treatment [address]ematology[address] [address] Chair [place] [address] Hem On[address] [place] [address] 08/28/2024 9:00 AM EDT Nurse Only Hematology[address] [address] [place], Chair 5 Hem Onc Scene [address] [facility] [place] [address] 08/28/2024 9:30 AM EDT Office Visit Hematology/Oncology [facility] [address] [facility], [place] [phone] Gabby Zavala CRNP [address] [facility] [place] [address] 08/28/2024 10:00 AM EDT Hem/Onc Treatment Hematology/Oncology Treatment, [place] [address] [facility], [place] [address] [place], Chair 7 Hem Onc [facility] [address] [facility] [place], [place] [address] Health Maintenance Due Date Last Done Comments [...] this encounter Medical Devices Implanted Type Area Dental Laboratory Technician Device Identifier Shelf Expiration Date Model / Serial / Lot Stent Angulo 4fr 11cm - [id number] Implanted:Qty : 1 on 02/08/2024 by Jeffrey Kerr MD at OR [facility] [place] [id number] 08/16/2028 [id number] / / [id number] Port Implant W8f Poly Cath - [id number] Implanted:Qty : 1 on 05/02/2024 by Iam Curry MD at OR [facility] Right: Chest CR BARD : PERIPHERAL VASCULAR [id number] 05/17/2025 [id number] / / [id number] documented as of this encounter Procedures Procedure Name Priority Date/Time Associated Diagnosis Comments DIFFERENTIAL, AUTOMATED STAT 07/17/2024 10:18 AM EST Malignant neoplasm of upper-outer quadrant of left breast in female, estrogen receptor negative (HCC) TSH WITH FREE T4 IF INDICATED STAT 07/17/2024 10:18 AM EST Malignant neoplasm of upper-outer quadrant of left breast in female, estrogen receptor negative (HCC) COMPREHENSIVE METABOLIC PANEL STAT 07/17/2024 10:18 AM EST Malignant neoplasm of upper-outer quadrant of left breast in female, estrogen receptor negative (HCC) CBC STAT 07/17/2024 10:18 AM EST Malignant neoplasm of upper-outer quadrant of left breast in female, estrogen receptor negative (HCC) CBC STAT 07/17/2024 10:18 AM EST Malignant neoplasm of upper-outer quadrant of left breast in female, estrogen receptor negative (HCC) HCG QUALITATIVE, URINE STAT 10:18 AM EST Malignant neoplasm of upper-outer quadrant of left breast in female, estrogen receptor negative (HCC) documented in this encounter Results * (ABNORMAL) DIFFERENTIAL, AUTOMATED (07/17/2024 10:18 AM EST) WBC 3.63(L) 4.00 - 10.80 K/uL 07/17/2024 10:52 AM EST [facility] 56-02 Neutrophils % 53.7 40.0 - 75.0 % 07/17/2024 10:52 AM [facility] 56-02 Lymphocytes % 35.5 18.0 - 42.0 % 07/17/2024 10:52 AM [facility] 56-02 Monocytes % 10.5 1.0 - 11.0 % 07/17/2024 10:52 AM [facility] 56-02 Eosinophils % 0.0 0.0 - 6.0 % 07/17/2024 10:52 AM [facility] 56-02 Basophils % 0.3 0.0 - 2.0 % 07/17/2024 10:52 AM [facility] 56-02 Absolute Neutrophils 1.95 1.80 - 7.70 K/uL 07/17/2024 10:52 AM [facility] 56-02 Absolute Lymphocytes 1.29 1.00 - 4.80 K/ul 07/17/2024 10:52 AM [facility] 56-02 Absolute Monocytes 0.38 0.00 - 1.10 K/uL 07/17/2024 10:52 AM [facility] 56-02 Absolute Eosinophils 0.00 0.00 - 0.70 K/uL 07/17/2024 10:52 AM [facility] 56-02 Absolute Basophils 0.01 0.00 - 0.20 K/uL 07/17/2024 10:52 AM [facility] 56-02 Blood Venous blood specimen / Unknown Central Line / Unknown 07/17/2024 10:18 AM EST 07/17/2024 10:48 AM EST us Kanu Maravilla MD LAB BLOOD ORDERABLES Final Res ult [facility] 56-[address] [place] [address] * (ABNORMAL) CBC (07/17/2024 10:18 AM EST) WBC 3.63(L) 4.00 - 10.80 K/uL 07/17/2024 10:52 AM [facility] 56-02 RBC 3.26 3.85 - 5.15 M/uL 07/17/2024 10:52 AM [facility] 56 HGB 11.0(L) 12.0 - 15.3 g/dL 07/17/2024 10:52 AM [facility] 56- HCT 33.7(L) 36.0 - 45.2 % 07/17/2024 10:52 AM [facility] 56- MCV 103.4 81.5 - 97.5 fL 07/17/2024 10:52 AM [facility] 56 MCH 33.7 27.0 - 34.0 pg 07/17/2024 10:52 AM [facility] 56 MCHC 32.6 32.0 - 36.0 g/dL 07/17/2024 10:52 AM [facility] 56- RDW 16.3 11.5 - 15.5 % 07/17/2024 10:52 AM [facility] 56 PLT 194 140 - 400 K/uL 07/17/2024 10:52 AM [facility] 56 MPV 8.7 6.6 - 11.1 fL 07/17/2024 10:52 AM [facility] 56 Blood Venous blood specimen / Unknown Central Line / Unknown 07/17/2024 10:18 AM EST 07/17/2024 10:48 AM EST us Kanu Maravilla MD LAB BLOOD ORDERABLES Final Res ult [facility] 56- [address] [place] [address] * HCG QUALITATIVE, URINE (07/17/2024 10:18 AM EST) Pathologist [facility] HCG Qualitative, Urine Negative Negative 07/17/2024 11:20 AM [facility] 56-02 Urine Urine specimen obtained by clean catch procedure / Unknown Non-blood Collection / Unknown 07/17/2024 10:18 AM EST 07/17/2024 11:04 AM EST us Kanu Maravilla MD LAB URINE ORDERABLES Final Res ult [address] [place] [address] * (ABNORMAL) COMPREHENSIVE METABOLIC PANEL (07/17/2024 10:18 AM EST) BUN 13 6 - 20 mg/dL 07/17/2024 11:[address] CREATININE 0.8 0.5 - 1.0 mg/dL 07/17/2024 11:[address] EGFR >90 >=60 mL/min 07/17/2024 11:[address] Comment:eGFR is calculated b ased on the CKD-EPI 2020 equation. SODIUM 141 135 - 146 mmol/L 07/17/2024 11:[address] POTASSIUM 4.3 3.5 - 5.1 mmol/L 07/17/2024 11:[address] CHLORIDE 106 98 - 107 mmol/L 07/17/2024 11:[address] CO2 22 22 - 32 mmol/L 07/17/2024 11:[address] ANION GAP 13 7 - 15 mmol/L 07/17/2024 11:[address] GLUCOSE 115 70 - 120 mg/dL 07/17/2024 11:[address] Albumin 4.4 3.8 - 5.0 g/dL 07/17/2024 11:[address] AST <5(L) 10 - 35 U/L 07/17/2024 11:[address] Alkaline Phosphatase 87 35 - 130 U/L 07/17/2024 11:[address] Bilirubin, Total 0.5 <=1.2 mg/dL 07/17/2024 11:[address] CALCIUM 9.7 8.4 - 10.2 mg/dL 07/17/2024 11:[address] Protein 7.4 6.0 - 8.3 g/dL 07/17/2024 11:[address] ALT 17 10 - 35 U/L 07/17/2024 11:13 AM EST [facility] 56-02 Blood Venous blood specimen / Unknown Central Line / Unknown 07/17/2024 10:18 AM EST 07/17/2024 10:48 AM EST us Kanu Maravilla MD LAB BLOOD ORDERABLES Final Res ult [facility] 56-[address] [place] [address] * TSH WITH FREE T4 IF INDICATED (07/17/2024 10:18 AM EST) TSH 0.53 0.27 - 4.20 uIU/mL 07/17/2024 7:24 PM EST [facility] Blood Venous blood specimen / Unknown Central Line / Unknown 07/17/2024 10:18 AM EST 07/17/2024 10:48 AM EST us Mandeep Luna MD LAB BLOOD ORDERABLES Fin al Result [facility] [address] [place] [address] documented in this encounter Visit [...] for prevention of neutropenia due to chemotherapy Encounter for fertility preservation procedure Suppression of [...] FROM LIGHT, ONCE, 1 dose, On Bibi 07/17/24 at 1330Indications:Malignant neoplasm of upper-outer quadrant of left breast in female, estrogen receptor negative (HCC),Encounter for antineoplastic chemotherapy,Encounter for prevention of neutropenia due to chemotherapy Start Infusion 07/17/2024 1:45 PM EST 225 mg 510 mL/hr dexAMETHasone (Decadron) tab 12 mg 12 mg, Oral, ONCE, On Bibi 07/17/24 at 1100, For 1 doseIndications:Malignant neoplasm of upper-outer quadrant of left breast in female, estrogen receptor negative (HCC),Encounter for antineoplastic chemotherapy,Encounter for prevention of neutropenia due to chemotherapy Given 07/17/2024 11:55 AM EST 12 mg diphenhydrAMINE (Benadryl) inj 25 mg 25 mg, IV Push, ONCE, On Bibi 07/17/24 at 1100, For 1 doseIndications:Malignant neoplasm of upper-outer quadrant of left breast in female, estrogen receptor negative (HCC),Encounter for antineoplastic chemotherapy,Encounter for prevention of neutropenia due to chemotherapy Given 07/17/2024 11:57 AM EST 25 mg Famotidine (Pepcid) inj 20 mg 20 mg, IV Push, ONCE, On Bibi 07/17/24 at 1100, For 1 dose, Give IV push over 2 minutes.Indications:Maligna nt neoplasm of upper-outer quadrant of left breast in female, estrogen receptor negative (HCC),Encounter for antineoplastic chemotherapy,Encounter for prevention of neutropenia due to chemotherapy Given 07/17/2024 11:59 AM EST 20 mg hEParin 100 UNIT/ML Lock Flush inj 500 Units 500 Units (5 mL), IV Lock, PRN Other, IV Flush, Starting on Bibi 07/17/24 at 1025, Until Bibi 07/17/24 at 1840, For 24 hours, Do not flush if lock, PICC, or central line not in place; IV infusing or unable to flush.Indications:Malignant neoplasm of upper-outer quadrant of left breast in female, estrogen receptor negative (HCC),Encounter for antineoplastic chemotherapy,Encounter for prevention of neutropenia due to chemotherapy Given 07/17/2024 2:23 PM EST 500 Units NSS infusion Intravenous, at 50 mL/hr, PRN, Starting on Sun07/17/24 at 1130, Until Sun07/17/24 at 1840, Maintenance lineIndications:Malignant neoplasm of upper-outer quadrant of left breast in female, estrogen receptor negative (HCC),Encounter for antineoplastic chemotherapy,Encounter for prevention of neutropenia due to chemotherapy Start Infusion 07/17/2024 11:55 AM EST 50 mL/hr PACLitaxel (Taxol) 165 mg in NSS 250 mL infusion 165 mg (rounded from 164.8 mg = 80 mg/m2 2.06 m2 Treatment Plan BSA from Recorded weight), IV Piggyback, ONCE, 1 dose, On Sun07/17/24 at 1230, Administer over 60 Minutes, Administer through 0.22 micron low protein binding filter!Indications:Malignan t neoplasm of upper-outer quadrant of left breast in female, estrogen receptor negative (HCC),Encounter for antineoplastic chemotherapy,Encounter for prevention of neutropenia due to chemotherapy Start Infusion 07/17/2024 12:43 PM EST 165 mg 255 mL/hr Palonosetron (Aloxi) inj SOLN 0.25 mg 0.25 mg, IV Push, ONCE, On Sun07/17/24 at 1100, For 1 dose, Restricted per [facility] antiemetic guidelinesIndications:Malig nant neoplasm of upper-outer quadrant of left breast in female, estrogen receptor negative (HCC),Encounter for antineoplastic chemotherapy,Encounter for prevention of neutropenia due to chemotherapy Given 07/17/2024 11:55 AM EST 0.25 mg Pembrolizumab (Keytruda) 200 mg in NSS 100 mL infusion 200 mg, IV Piggyback, ONCE, 1 dose, On Sun07/17/24 at 1200, Administer over 30 Minutes, Infuse through 0.2 micron filter.Indications:Malignan t neoplasm of upper-outer quadrant of left breast in female, estrogen receptor negative (HCC),Encounter for antineoplastic chemotherapy,Encounter for prevention of neutropenia due to chemotherapy Start Infusion 07/17/2024 12:04 PM EST 200 mg 226 mL/hr sodium chloride 0.9 % flush central line 10 mL 10 mL, IV Push, PRN Other, IV Flush, Starting on Sun07/17/24 at 1025, Until Sun07/17/24 at 1840, For 24 hours, Do not flush if lock, PICC, or central line not in place; IV infusing or unable to flush.Indications:Malignant neoplasm of upper-outer quadrant of left breast in female, estrogen receptor negative (HCC),Encounter for antineoplastic chemotherapy,Encounter for prevention of neutropenia due to chemotherapy Given 07/17/2024 2:23 PM EST 10 mL documented in this encounter Care Teams Chief Executive Or Managing Director Relationship Specialty Start Date End Date Malinda Owens CRNP [address] [facility] [place] [address] PCP - General Nurse Practitioner 09/20/23 documented as of this encounter
--- OUTSIDE RECORDS SUMMARY | 2024-09-05 14:28 | External Medical Summary | Summary of Care ---
Author Name Unknown Organization [facility] Address [address] [place] [address] Phone [phone] Care Team Providers Care Robotics Application Engineer Name Role Phone Malinda Owens Primary Care Provider [phone] Reason for Visit * Reason Comments Chemotherapy C3/D15 - Taxol, Carb o Procedure Labs from port * Episode Based Medications (Routine) - Authorized Specialty Diagnoses / Procedures Referred By Contjeffery t Referred To Contact Diagnoses Malignant neoplasm of upper-outer quadrant of left breast in female, estrogen receptor negative (HCC) Encounter for antineoplastic chemotherapy Encounter for prevention of neutropenia due to chemotherapy Procedures NM DOXORUBIC HCL 10 MG VL CHEMO NM CARBOPLATIN INJECTION NM FOSAPREPITANT INJECTION NM INJ PEMBROLIZUMAB NM INJECTION, FULPHILA NM PACLITAXEL INJECTION NM INJ CYCLOPHOSPHAMD AUROMEDIC NM PALONOSETRON HCL Em Ng MD Hematology/Oncology Treatment, [address] [address] Phone: tel: fax: Referral ID Status Reason Start Date Expiration Date V isits Requested Visits Authorized [id number] Authorized 04/30/2024 06/17/2099 [id number] Encounter Details Date Type Department Care Team (Latest Contact Info) Description 07/03/2024 9:15 AM EST Hem/Onc Treatment Hematology/Oncolog y Treatment, [address] [place] [address] [place] Chair 4 Hem On[address] [place] [address] Encounter for antineoplastic chemotherapy*; Malignant neoplasm of upper-outer quadrant of left breast in female, estrogen receptor negative (HCC); Encounter for prevention of neutropenia due to chemotherapy Allergies No known active allergiesdocumented as of this encounter (statuses as of 07/27/2024) Medications 19 29-1 MG Oral Tablet Chewable [...] After meals.. 6 Tablet 07/02/19 25 Active documented as of this encounter (statuses as of 07/27/2024) Active Problems Problem Noted Date Diagnosed Date [...] Enrolled in Current Health. 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 Instructions provided to [...] and class I obesity. Per review of EMERGENCY ROOM REGISTERED NURSE documentation of 09/25/23, blood glucose values [...] Recommend nutrition consult with RDN (Registered Dietitian Painter Drum). Lifestyle changes are also indicated including optimizing [...] and folate levels and referral to a contracts analyst. If hemoglobin levels are below 8 g/dl, we recommend Maternal Medicine ultrasound for growth every 4 weeks after 24 weeks. Consider a blood transfusion if hemoglobin levels fall below 6 g/dL. ([employer] Bulletin Number 95, December,). Consider Venofer [...] as of this encounter (statuses as of 07/27/2024) Resolved Problems Problem Noted Date Diagnosed Date Resolved Date Abnormal glucose tolerance i n mother complicating 04/19/2023 08/31/2023 Overview (04/19/2023): Failed early glucola. 3hr GTT ordered documented as of this encounter (statuses as of 07/27/2024) Immunizations Name Administration Dates Next Due DTP [...] money to get more. 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 on file Not on file Not on file documented as of this encounter Last Filed Vital Signs Vital Sign Reading Time Taken Comments Blood Pressure 94/69 07/03/2024 9:23 AM EST Pulse 108 07/03/2024 9:23 AM EST Temperature 36.9 C (98.4 F) 07/03/2024 9:23 AM ES T Respiratory Rate 18 07/03/2024 9:23 AM EST Oxygen Saturation 96% 07/03/2024 9:23 AM EST Inhaled Oxygen Concentration - - Weight 89.6 kg (197 lb 9.6 oz) 07/03/2024 9:23 A M EST Height - - Body Mass Index 29.17 05/02/2024 10:35 AM EST documented in this encounter Nursing Notes * Mery Parks LPN - 07/03/2024 2:16 PM EST 1245 Patient completed IV therapy. Port line was clamped; hub scrubbed with alcohol prep pad; 10mL NSS flushed through line with ease; positive blood return; hub scrubbed with alcohol prep pad; 5mL flushed through line with ease; Port line clamped for needle removal. * Justine Cool RN - 07/03/2024 1:31 PM EST Goals: Patient will remain free [...] stable condition and denied any further needs. Patient is going on work trip to [place] next weekend so she would prefer to delay tx 07/10 - confirmed this is okay with Dr. Maravilla. Lupron will be pushed back to 07/17 when she returns for next chemo as well. * Justine Cool RN - 07/03/2024 12:57 PM EST Labs are WNL for tx, no complaints or concerns. On Pyridium for cystitis symptoms and states she does feel better so far since starting that and getting IV hydration a couple days ago. Chemotherapy/Immunotherapy agents: CARBOPLATIN and TAXOL Consent for chemotherapy drug treatment complete, dated, and signed? yes, date - 04/24/2024 Treatment lab parameters met? Yes Has treatment weight changed > than 10%? No Treatment preauthorized? Yes VITALS Filed Vitals: 07/03/24 0923 BP: 94/69 Pulse: 108 Resp: 18 Temp: 36.9 C (98.4 F) TempSrc: Tympanic SpO2: 96% Weight: 89.6 kg (197 lb 9.6 oz) BP Readings from Last 2 Encounters: 07/03/24 94/69 07/01/24 112/66 Pulse Readings from Last 2 Encounters: 07/03/24 108 07/01/24 90 Resp Readings from Last 2 Encounters: 07/03/24 18 07/01/24 18 SpO2 Readings from Last 2 Encounters: 07/03/24 96% 01/14/25 95% Temp Readings from Last 2 Encounters: 07/03/24 36.9 C (98.4 F) (Tympanic) 07/01/24 36.2 C (97.2 F) (Tympanic) Urine protein: [...] NEURO: denies symptoms CV/RESP: denies symptoms GI/: OTHER: urine color change d/t being on Pyridium at this time, cystitis OTHER: denies any additional symptoms PAIN: 0 Safety and Risk for Injury Patient will remain free from injury. Ensure appropriate safety devices are available. Provide and maintain safe environment. * Justine Cool RN - 07/03/2024 12:56 PM EST Chair 8. Port accessed with 19G 3/4" needle and labs drawn via port per protocol, awaiting lab results. Patient here today with friend. Pt comfortable and denies further needs at this time. Patient instructed on use of heat and [...] 8:45 AM EST Hem/Onc Treatment Hematology/Oncology Treatment, [address], [place] [id number] [place], Chair 7 Hem Onc Scenery [address] [facility] [place] [address] 08/07/2024 9:00 AM EST Hem/Onc Treatment Hematology/Oncology Treatment, [address], [place] [phone] [place], Chair 7 Hem Onc Scenery [address] [facility] [place] [address] 08/28/2024 9:00 AM EDT Nurse Only Hematology/Oncology Treatment, [address], [place] [id number] [place], Chair 5 Hem Onc Scenery [address] [facility] [place], [place] [address] 08/28/2024 9:30 AM EDT Office Visit Hematology/Oncology Scenery [place] [address] [place], [place] [phone] Gab[facility]ala CR[facility] [address] 08/28/2024 10:00 AM EDT Hem/Onc Treatment Hematology/Oncology Treatment, [address], [place] [phone] [place], Chair 7 Hem Onc Scenery [address] [facility] [place], [place] [address] Health Maintenance Due Date Last Done Comments [...] this encounter Medical Devices Implanted Type Area Air Liaison And Special Staff Device Identifier Shelf Expiration Date Model / Serial / Lot Stent Angulo 4fr 11cm - [id number] Implanted:Qty : 1 on 02/08/2024 by Jeffrey Kerr MD at OR [facility] [employer] [id number] 08/16/2028 [id number] / / [id number] Port Implant W8f Poly Cath - [id number] Implanted:Qty : 1 on 05/02/2024 by Iam Curry MD at OR [facility] Right: Chest CR BARD : PERIPHERAL VASCULAR [id number] 05/17/2025 [id number] / / [id number] documented as of this encounter Procedures Procedure Name Priority Date/Time Associated Diagnosis Comments DIFFERENTIAL, AUTOMATED STAT 07/03/2024 9:37 AM EST Malignant neoplasm of upper-outer quadrant of left breast in female, estrogen receptor negative (HCC) COMPREHENSIVE METABOLIC PANEL STAT 07/03/2024 9:37 AM EST Malignant neoplasm of upper-outer quadrant of left breast in female, estrogen receptor negative (HCC) CBC STAT 07/03/2024 9:37 AM EST Malignant neoplasm of upper-outer quadrant of left breast in female, estrogen receptor negative (HCC) CBC STAT 07/03/2024 9:37 AM EST Malignant neoplasm of upper-outer quadrant of left breast in female, estrogen receptor negative (HCC) DIFFERENTIAL, TECHNOLOGIST REVIEW Routine 07/03/2024 9:37 AM EST Malignant neoplasm of upper-outer quadrant of left breast in female, estrogen receptor negative (HCC) HCG QUALITATIVE, URINE STAT 9:37 AM EST Malignant neoplasm of upper-outer quadrant of left breast in female, estrogen receptor negative (HCC) documented in this encounter Results * (ABNORMAL) DIFFERENTIAL, TECHNOLOGIST REVIEW (07/03/2024 9:37 AM EST) Pathologist [facility] nRs 07/03/2024 10:01 AM EST [facility] 56-02 Reactive Lymphocytes Present(A ) None Seen 07/03/2024 10:01 AM [facility] 56-02 Blood Venous blood specimen / Unknown Venipuncture / Unknown 07/03/2024 9:37 AM EST 07/03/2024 9:45 AM EST Kanu Maravilla MD LAB BLOOD ORDERABLES Final Res ult [facility] 56-[address] [place] [address] * (ABNORMAL) DIFFERENTIAL, AUTOMATED (07/03/2024 9:37 AM EST) Pathologist [facility] WBC 3.54(L) 4.00 - 10.80 K/uL 07/03/2024 10:01 AM EST [facility] 56-02 Neutrophils % 57.1 40.0 - 75.0 % 07/03/2024 10:01 AM [facility] 56-02 Lymphocytes % 36.7 18.0 - 42.0 % 07/03/2024 10:01 AM EST [facility] 56-02 Monocytes % 5.9 1.0 - 11.0 % 07/03/2024 10:01 AM EST [facility] 56-02 Eosinophils % 0.0 0.0 - 6.0 % 07/03/2024 10:01 AM [facility] 56- Basophils % 0.3 0.0 - 2.0 % 07/03/2024 10:01 AM [facility] 56-02 Absolute Neutrophils 2.02 1.80 - 7.70 K/uL 07/03/2024 10:01 AM [facility] 56- Absolute Lymphocytes 1.30 1.00 - 4.80 K/ul 07/03/2024 10:01 AM [facility] 56- Absolute Monocytes 0.21 0.00 - 1.10 K/uL 07/03/2024 10:01 AM [facility] 56- Absolute Eosinophils 0.00 0.00 - 0.70 K/uL 07/03/2024 10:01 AM [facility] 56- Absolute Basophils 0.01 0.00 - 0.20 K/uL 07/03/2024 10:01 AM [facility] 56- Blood Venous blood specimen / Unknown Venipuncture / Unknown 07/03/2024 9:37 AM EST 07/03/2024 9:45 AM EST us Kanu Maravilla MD LAB BLOOD ORDERABLES Final Res ult [facility] [address]- [address] [place] [id number] * (ABNORMAL) CBC (07/03/2024 9:37 AM EST) WBC 3.54(L) 4.00 - 10.80 K/uL 07/03/2024 10:01 AM [facility] 56- RBC 3.21 3.85 - 5.15 M/uL 07/03/2024 10:01 AM [facility] 56- HGB 10.5(L) 12.0 - 15.3 g/dL 07/03/2024 10:01 AM [facility] 56- HCT 31.7(L) 36.0 - 45.2 % 07/03/2024 10:01 AM [facility] 56- MCV 98.8 81.5 - 97.5 fL 07/03/2024 10:01 AM [facility] 56- MCH 32.7 27.0 - 34.0 pg 07/03/2024 10:01 AM [facility] 56- MCHC 33.1 32.0 - 36.0 g/dL 07/03/2024 10:01 AM [facility] 56- RDW 13.3 11.5 - 15.5 % 07/03/2024 10:01 AM [facility] 56- PLT 178 140 - 400 K/uL 07/03/2024 10:01 AM [facility] 56- MPV 9.1 6.6 - 11.1 fL 07/03/2024 10:01 AM [facility] 56- Blood Venous blood specimen / Unknown Venipuncture / Unknown 07/03/2024 9:37 AM EST 07/03/2024 9:45 AM EST Kanu Maravilla MD LAB BLOOD ORDERABLES Final Res ult [facility] 56 [address] [place] [address] * HCG QUALITATIVE, URINE (07/03/2024 9:37 AM EST) HCG Qualitative, Urine Negative Negative 07/03/2024 9:51 AM [facility] 56 Urine Urine specimen obtained by clean catch procedure / Unknown Non-blood Collection / Unknown 07/03/2024 9:37 AM EST 07/03/2024 9:45 AM EST Kanu Maravilla MD LAB URINE ORDERABLES Final Res ult [facility] [address] [place] [address] * (ABNORMAL) COMPREHENSIVE METABOLIC PANEL (07/03/2024 9:37 AM EST) BUN 12 6 - 20 mg/dL 07/03/2024 10:07 AM [facility] 56 CREATININE 0.7 0.5 - 1.0 mg/dL 07/03/2024 10:07 AM [facility] 5602 EGFR >90 >=60 mL/min 07/03/2024 10:07 AM [facility] 56-02 Comment:eGFR is calculated b ased on the CKD-EPI 2020 equation. SODIUM 140 135 - 146 mmol/L 07/03/2024 10:07 AM [facility] 56- POTASSIUM 3.9 3.5 - 5.1 mmol/L 07/03/2024 10:07 AM [facility] 56- CHLORIDE 105 98 - 107 mmol/L 07/03/2024 10:07 AM [facility] 56 CO2 20(L) 22 - 32 mmol/L 07/03/2024 10:07 AM [facility] 56 ANION GAP 15 7 - 15 mmol/L 07/03/2024 10:07 AM [facility] 56 GLUCOSE 141(H) 70 - 120 mg/dL 07/03/2024 10:07 AM [facility] 56 Albumin 4.3 3.8 - 5.0 g/dL 07/03/2024 10:07 AM [facility] 56 AST 15 10 - 35 U/L 07/03/2024 10:07 AM [facility] 56 Alkaline Phosphatase 83 35 - 130 U/L 07/03/2024 10:07 AM [facility] 56- Bilirubin, Total 0.4 <=1.2 mg/dL 07/03/2024 10:07 AM [facility] 56- CALCIUM 9.3 8.4 - 10.2 mg/dL 07/03/2024 10:07 AM [facility] 56- Protein 7.1 6.0 - 8.3 g/dL 07/03/2024 10:07 AM [facility] 56-02 ALT 14 10 - 35 U/L 07/03/2024 10:07 AM [facility] 56-02 Blood Venous blood specimen / Unknown Venipuncture / Unknown 07/03/2024 9:37 AM EST 07/03/2024 9:45 AM EST us Kanu Maravilla MD LAB BLOOD ORDERABLES Final Res ult [facility] 56-[address] [place] [address] documented in this encounter Visit Diagnoses Diagnosis [...] FROM LIGHT, ONCE, 1 dose, On Bibi 07/03/24 at 1330Indications:Malignant neoplasm of upper-outer quadrant of left breast in female, estrogen receptor negative (HCC),Encounter for antineoplastic chemotherapy,Encounter for prevention of neutropenia due to chemotherapy Start Infusion 07/03/2024 12:07 PM EST 225 mg 510 mL/hr dexAMETHasone (Decadron) tab 12 mg 12 mg, Oral, ONCE, On Sun07/03/24 at 1100, For 1 doseIndications:Malignant neoplasm of upper-outer quadrant of left breast in female, estrogen receptor negative (HCC),Encounter for antineoplastic chemotherapy,Encounter for prevention of neutropenia due to chemotherapy Given 07/03/2024 10:29 AM EST 12 mg diphenhydrAMINE (Benadryl) inj 25 mg 25 mg, IV Push, ONCE, On Sun07/03/24 at 1100, For 1 doseIndications:Malignant neoplasm of upper-outer quadrant of left breast in female, estrogen receptor negative (HCC),Encounter for antineoplastic chemotherapy,Encounter for prevention of neutropenia due to chemotherapy Given 07/03/2024 10:28 AM EST 25 mg Famotidine (Pepcid) inj 20 mg 20 mg, IV Push, ONCE, On Bibi 07/03/24 at 1100, For 1 dose, Give IV push over 2 minutes.Indications:Maligna nt neoplasm of upper-outer quadrant of left breast in female, estrogen receptor negative (HCC),Encounter for antineoplastic chemotherapy,Encounter for prevention of neutropenia due to chemotherapy Given 07/03/2024 10:28 AM EST 20 mg hEParin 100 UNIT/ML Lock Flush inj 500 Units 500 Units (5 mL), IV Lock, PRN Other, IV Flush, Starting on Bibi 07/03/24 at 1015, Until Sun07/03/24 at 1805, For 24 hours, Do not flush if lock, PICC, or central line not in place; IV infusing or unable to flush.Indications:Malignant neoplasm of upper-outer quadrant of left breast in female, estrogen receptor negative (HCC),Encounter for antineoplastic chemotherapy,Encounter for prevention of neutropenia due to chemotherapy Given 07/03/2024 12:41 PM EST 500 Units NSS infusion Intravenous, at 50 mL/hr, PRN, Starting on Sun07/03/24 at 1130, Until Sun07/03/24 at 1805, Maintenance lineIndications:Malignant neoplasm of upper-outer quadrant of left breast in female, estrogen receptor negative (HCC),Encounter for antineoplastic chemotherapy,Encounter for prevention of neutropenia due to chemotherapy Start Infusion 07/03/2024 10:23 AM EST 50 mL/hr PACLitaxel (Taxol) 165 mg in NSS 250 mL infusion 165 mg (rounded from 164.8 mg = 80 mg/m2 2.06 m2 Treatment Plan BSA from Recorded weight), IV Piggyback, ONCE, 1 dose, On Sun07/03/24 at 1230, Administer over 60 Minutes, Administer through 0.22 micron low protein binding filter!Indications:Malignan t neoplasm of upper-outer quadrant of left breast in female, estrogen receptor negative (HCC),Encounter for antineoplastic chemotherapy,Encounter for prevention of neutropenia due to chemotherapy Start Infusion 07/03/2024 11:01 AM EST 165 mg 255 mL/hr Palonosetron (Aloxi) inj SOLN 0.25 mg 0.25 mg, IV Push, ONCE, On Sun07/03/24 at 1100, For 1 dose, Restricted per [facility] antiemetic guidelinesIndications:Jess christie neoplasm of upper-outer quadrant of left breast in female, estrogen receptor negative (HCC),Encounter for antineoplastic chemotherapy,Encounter for prevention of neutropenia due to chemotherapy Given 07/03/2024 10:28 AM EST 0.25 mg sodium chloride 0.9 % flush central line 10 mL 10 mL, IV Push, PRN Other, IV Flush, Starting on Bibi 07/03/24 at 1015, Until Bibi 07/03/24 at 1805, For 24 hours, Do not flush if lock, PICC, or central line not in place; IV infusing or unable to flush.Indications:Malignant neoplasm of upper-outer quadrant of left breast in female, estrogen receptor negative (HCC),Encounter for antineoplastic chemotherapy,Encounter for prevention of neutropenia due to chemotherapy Given 07/03/2024 12:41 PM EST 10 mL documented in this encounter Care Teams Robotics Application Engineer Relationship Specialty Start Date End Date Malinda Owens CRNP [address] [facility] [place] [address] PCP - General Nurse Practitioner 09/20/23 documented as of this encounter
--- OUTSIDE RECORDS SUMMARY | 2024-09-05 14:28 | External Medical Summary | Summary of Care ---
Author Name Unknown Organization [facility] Address [address] [place] [address] Phone [phone] Care Team Providers Care Rotary Dryer Operator Name Role Phone Malinda Owens Primary Care Provider [phone] Reason for Visit * Reason Comments Chemotherapy [...] PALONOSETRON HCL Em Ng MD Hematology/Oncology Treatment, [address] [address] Phone: tel: fax: Referral ID Status Reason Start Date Expiration Date V isits Requested Visits Authorized [id number] Authorized 04/30/2024 06/17/2099 [id number] 999 Encounter Details Date Type Department Care Team (Latest Contact Info) Description 07/03/2024 9:15 AM EST Hem/Onc Treatment Hematology/Oncolog y Treatment, [address] [place] [address] [place] Chair 4 Hem On[address] [place] [address] Encounter for antineoplastic chemotherapy*; Malignant neoplasm [...] complete. Enrolled in Current Health. Plans to bead picker meter from pharmacy today. Instructions provided [...] and class I obesity. Per review of AIR CARRIER MAINTENANCE INSPECTOR documentation of 09/25/23, blood glucose values [...] Recommend nutrition consult with RDN (Registered Dietitian Crimping Machine Operator For Metal). Lifestyle changes are also indicated including optimizing [...] and folate levels and referral to a fleet service clerk. If hemoglobin levels are below 8 g/dl, we recommend Maternal Medicine ultrasound for growth every 4 weeks after 24 weeks. Consider a blood transfusion if hemoglobin levels fall below 6 g/dL. ([employer] [facility] [employer] [facility] Bulletin Number 95, December,). Consider Venofer [...] money to get more. 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 file [...] Patient is going on work trip to [place] next weekend so she would prefer to [...] 8:45 AM EST Hem/Onc Treatment Hematology/Oncology Treatment, [address], [place] [phone] [place], Chair 7 Hem Onc Scenery [address] [facility] [place] [address] 08/07/2024 9:00 AM EST Hem/Onc Treatment Hematology/Oncology Treatment, [address], [place] [phone] [place], Chair 7 Hem Onc Scenery 200 [facility] [place] [address] 08/28/2024 9:00 AM EDT Nurse Only Hematology/Oncology Treatment, [address], [place] [phone] [place], Chair 5 Hem Onc Scenery 200 [facility] [place], [place] [address] 08/28/2024 9:30 AM EDT Office Visit Hematology/Oncology [place] [address] [place], [place] [phone] Gab[facility]avala [facility] [address] 08/28/2024 10:00 AM EDT Hem/Onc Treatment Hematology/Oncology Treatment, [address], [place] [phone] i[place], Chair 7 Hem Onc Scenery 200 [facility] [place], [place] [address] Health Maintenance Due Date Last Done Comments [...] this encounter Medical Devices Implanted Type Area Caustics Loader Device Identifier Shelf Expiration Date Model / Serial / Lot Stent Angulo 4fr 11cm - [id number] Implanted:Qty : 1 on 02/08/2024 by Jeffrey Kerr MD at OR [facility] [employer] [id number] 08/16/2028 [id number] / / [id number] Port Implant W8f Poly Cath - [id number] Implanted:Qty : 1 on 05/02/2024 by Iam Curry MD at OR [facility] Right: Chest CR BARD : PERIPHERAL VASCULAR [id number] 05/17/2025 [id number] / / [id number] documented as of this encounter Procedures Procedure [...] TECHNOLOGIST REVIEW (07/03/2024 9:37 AM EST) Pathologist [facility] nRs 07/03/2024 10:01 AM EST [facility] 56-02 Reactive Lymphocytes Present(A ) None Seen 07/03/2024 10:01 AM [facility] 56-02 Blood Venous blood specimen / Unknown Venipuncture / Unknown 07/03/2024 9:37 AM EST 07/03/2024 9:45 AM EST Kanu Maravilla MD LAB BLOOD ORDERABLES Final Res ult [facility] 56-[address] [place] [address] * (ABNORMAL) DIFFERENTIAL, AUTOMATED (07/03/2024 9:37 AM EST) Pathologist [facility] WBC 3.54(L) 4.00 - 10.80 K/uL 07/03/2024 10:01 AM EST [facility] 56-02 Neutrophils % 57.1 40.0 - 75.0 % 07/03/2024 10:01 AM [facility] 56-02 Lymphocytes % 36.7 18.0 - 42.0 % 07/03/2024 10:01 AM EST [facility] 56-02 Monocytes % 5.9 1.0 - 11.0 % 07/03/2024 10:01 AM EST [facility] 56-02 Eosinophils % 0.0 0.0 - 6.0 % 07/03/2024 10:01 AM [facility] 56- Basophils % 0.3 0.0 - 2.0 % 07/03/2024 10:01 AM [facility] 56-02 Absolute Neutrophils 2.02 1.80 - 7.70 K/uL 07/03/2024 10:01 AM [facility] 56- Absolute Lymphocytes 1.30 1.00 - 4.80 K/ul 07/03/2024 10:01 AM [facility] 56- Absolute Monocytes 0.21 0.00 - 1.10 K/uL 07/03/2024 10:01 AM [facility] 56- Absolute Eosinophils 0.00 0.00 - 0.70 K/uL 07/03/2024 10:01 AM [facility] 56- Absolute Basophils 0.01 0.00 - 0.20 K/uL 07/03/2024 10:01 AM [facility] 56- Blood Venous blood specimen / Unknown Venipuncture / Unknown 07/03/2024 9:37 AM EST 07/03/2024 9:45 AM EST us Kanu Maravilla MD LAB BLOOD ORDERABLES Final Res ult [facility] 56- [address] [place] [id number] * (ABNORMAL) CBC (07/03/2024 9:37 AM EST) WBC 3.54(L) 4.00 - 10.80 K/uL 07/03/2024 10:01 AM [facility] 56- RBC 3.21 3.85 - 5.15 M/uL 07/03/2024 10:01 AM [facility] 56- HGB 10.5(L) 12.0 - 15.3 g/dL 07/03/2024 10:01 AM [facility] 56- HCT 31.7(L) 36.0 - 45.2 % 07/03/2024 10:01 AM [facility] 56- MCV 98.8 81.5 - 97.5 fL 07/03/2024 10:01 AM [facility] 56- MCH 32.7 27.0 - 34.0 pg 07/03/2024 10:01 AM [facility] 56- MCHC 33.1 32.0 - 36.0 g/dL 07/03/2024 10:01 AM [facility] 56- RDW 13.3 11.5 - 15.5 % 07/03/2024 10:01 AM [facility] 56- PLT 178 140 - 400 K/uL 07/03/2024 10:01 AM [facility] 56- MPV 9.1 6.6 - 11.1 fL 07/03/2024 10:01 AM [facility] 56- Blood Venous blood specimen / Unknown Venipuncture / Unknown 07/03/2024 9:37 AM EST 07/03/2024 9:45 AM EST Kanu Maravilla MD LAB BLOOD ORDERABLES Final Res ult [facility] 56 [address] [place] [address] * HCG QUALITATIVE, URINE (07/03/2024 9:37 AM EST) HCG Qualitative, Urine Negative Negative 07/03/2024 9:51 AM [facility] 56 Urine Urine specimen obtained by clean catch procedure / Unknown Non-blood Collection / Unknown 07/03/2024 9:37 AM EST 07/03/2024 9:45 AM EST Kanu Maravilla MD LAB URINE ORDERABLES Final Res ult [facility] [address] [place] [address] * (ABNORMAL) COMPREHENSIVE METABOLIC PANEL (07/03/2024 9:37 AM EST) BUN 12 6 - 20 mg/dL 07/03/2024 10:07 AM [facility] 56 CREATININE 0.7 0.5 - 1.0 mg/dL 07/03/2024 10:07 AM [facility] 5602 EGFR >90 >=60 mL/min 07/03/2024 10:07 AM [facility] 56-02 Comment:eGFR is calculated b ased on the CKD-EPI 2020 equation. SODIUM 140 135 - 146 mmol/L 07/03/2024 10:07 AM [facility] 56- POTASSIUM 3.9 3.5 - 5.1 mmol/L 07/03/2024 10:07 AM [facility] 56- CHLORIDE 105 98 - 107 mmol/L 07/03/2024 10:07 AM [facility] 56 CO2 20(L) 22 - 32 mmol/L 07/03/2024 10:07 AM [facility] 56 ANION GAP 15 7 - 15 mmol/L 07/03/2024 10:07 AM [facility] 56 GLUCOSE 141(H) 70 - 120 mg/dL 07/03/2024 10:07 AM [facility] 56 Albumin 4.3 3.8 - 5.0 g/dL 07/03/2024 10:07 AM [facility] 56 AST 15 10 - 35 U/L 07/03/2024 10:07 AM [facility] 56 Alkaline Phosphatase 83 35 - 130 U/L 07/03/2024 10:07 AM [facility] 56- Bilirubin, Total 0.4 <=1.2 mg/dL 07/03/2024 10:07 AM [facility] 56- CALCIUM 9.3 8.4 - 10.2 mg/dL 07/03/2024 10:07 AM [facility] 56- Protein 7.1 6.0 - 8.3 g/dL 07/03/2024 10:07 AM [facility] 56-02 ALT 14 10 - 35 U/L 07/03/2024 10:07 AM [facility] 56-02 Blood Venous blood specimen / Unknown Venipuncture / Unknown 07/03/2024 9:37 AM EST 07/03/2024 9:45 AM EST us Kanu Maravilla MD LAB BLOOD ORDERABLES Final Res ult [facility] 56-[address] [place] [address] documented in this encounter Visit Diagnoses Diagnosis [...] mL documented in this encounter Care Teams Rotary Dryer Operator Relationship Specialty Start Date End Date Malinda Owens CRNP [address] [facility] [place] [address] PCP - General Nurse Practitioner 09/20/23 documented as of this encounter
--- OUTSIDE RECORDS SUMMARY | 2024-09-05 14:28 | External Medical Summary | Summary of Care ---
Author Name Unknown Organization [facility] Address [address] [place] [address] Phone [phone] Care Team Providers Care Aligner Barrel And Receiver Name Role Phone Roman Malinda DUONG Primary Care Provider Reason for Visit * Reason Comments Chemotherapy C4 D1 Keytruda, Taxo l, Carbo, Lupron * Episode Based Medications (Routine) - Authorized Specialty Diagnoses / Procedures Referred By Bennie t Referred To Contact Diagnoses Malignant neoplasm of upper-outer quadrant of left breast in female, estrogen receptor negative (HCC) Encounter for antineoplastic chemotherapy Encounter for prevention of neutropenia due to chemotherapy Procedures ME DOXORUBIC HCL 10 MG VL CHEMO ME CARBOPLATIN INJECTION ME FOSAPREPITANT INJECTION ME INJ PEMBROLIZUMAB ME INJECTION, FULPHILA ME PACLITAXEL INJECTION ME INJ CYCLOPHOSPHAMD AUROMEDIC ME PALONOSETRON HCL Em Ng MD Hematology/Oncology Treatment, [address] [place] [address] Phone: tel: fax: Referral ID Status Reason Start Date Expiration Date V isits Requested Visits Authorized [id number] Authorized 04/30/2024 06/17/[phone] Encounter Details Date Type Department Care Team (Latest Contact Info) Description 07/17/2024 10:00 AM EST Hem/Onc Treatment Hematology/Oncolog y Treatment, [address] [place] [address] [place] Chair 3 Hem Onc [address] [place] [address] Encounter for antineoplastic chemotherapy*; Malignant neoplasm [...] and class I obesity. Per review of PAINTER HELPER SIGN documentation of 09/25/23, blood glucose values have [...] Recommend nutrition consult with RDN (Registered Dietitian Burlap Worker). Lifestyle changes are also indicated including [...] and folate levels and referral to a paper cup machine tender. If hemoglobin levels are below 8 g/dl, we recommend Maternal Medicine ultrasound for growth every 4 weeks after 24 weeks. Consider a blood transfusion if hemoglobin levels fall below 6 g/dL. ([employer] [facility] Con[employer] Truck Mounted Practice Bulletin Number 95, December,). Consider Venofer [...] money to get more. 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 [address] [facility], [place] [phone] Gabby Zavala CRNP 400 [facility] [place] [address] 08/28/2024 10:00 AM EDT Hem/Onc Treatment Hematology/Oncology Treatment, [place] 200 [facility], [place] [address] [place], Chair 7 Hem Onc [facility] 200 [facility] [place], [place] [address] Health Maintenance Due Date Last Done Comments [...] this encounter Medical Devices Implanted Type Area Military Communications Specialist Device Identifier Shelf Expiration Date Model / Serial / Lot Stent Angulo 4fr 11cm - [id number] Implanted:Qty : 1 on 02/08/2024 by Jeffrey Kerr MD at OR [facility] [employer] [id number] 08/16/2028 [id number] / / [id number] Port Implant W8f Poly Cath - [id number] Implanted:Qty : 1 on 05/02/2024 by Iam Curry MD at OR [facility] Right: Chest CR BARD : PERIPHERAL VASCULAR [id number] 05/17/2025 [id number] / / [id number] documented as of this encounter Procedures Procedure [...] 10.80 K/uL 07/17/2024 10:52 AM EST [facility] 56-02 Neutrophils % 53.7 40.0 - 75.0 % 07/17/2024 10:52 AM [facility] 56-02 Lymphocytes % 35.5 18.0 - 42.0 % 07/17/2024 10:52 AM [facility] 56-02 Monocytes % 10.5 1.0 - 11.0 % 07/17/2024 10:52 AM [facility] 56-02 Eosinophils % 0.0 0.0 - 6.0 % 07/17/2024 10:52 AM [facility] 56-02 Basophils % 0.3 0.0 - 2.0 % 07/17/2024 10:52 AM [facility] 56-02 Absolute Neutrophils 1.95 1.80 - 7.70 K/uL 07/17/2024 10:52 AM [facility] 56-02 Absolute Lymphocytes 1.29 1.00 - 4.80 K/ul 07/17/2024 10:52 AM [facility] 56-02 Absolute Monocytes 0.38 0.00 - 1.10 K/uL 07/17/2024 10:52 AM [facility] 56-02 Absolute Eosinophils 0.00 0.00 - 0.70 K/uL 07/17/2024 10:52 AM [facility] 56-02 Absolute Basophils 0.01 0.00 - 0.20 K/uL 07/17/2024 10:52 AM [facility] 56-02 Blood Venous blood specimen / Unknown Central Line / Unknown 07/17/2024 10:18 AM EST 07/17/2024 10:48 AM EST us Kanu Maravilla MD LAB BLOOD ORDERABLES Final Res ult [facility] 56-[address] [place] [address] * (ABNORMAL) CBC (07/17/2024 10:18 AM EST) WBC 3.63(L) 4.00 - 10.80 K/uL 07/17/2024 10:52 AM [facility] 56-02 RBC 3.26 3.85 - 5.15 M/uL 07/17/2024 10:52 AM [facility] 56 HGB 11.0(L) 12.0 - 15.3 g/dL 07/17/2024 10:52 AM [facility] 56- HCT 33.7(L) 36.0 - 45.2 % 07/17/2024 10:52 AM [facility] 56- MCV 103.4 81.5 - 97.5 fL 07/17/2024 10:52 AM [facility] 56 MCH 33.7 27.0 - 34.0 pg 07/17/2024 10:52 AM [facility] 56 MCHC 32.6 32.0 - 36.0 g/dL 07/17/2024 10:52 AM [facility] 56- RDW 16.3 11.5 - 15.5 % 07/17/2024 10:52 AM [facility] 56 PLT 194 140 - 400 K/uL 07/17/2024 10:52 AM [facility] 56 MPV 8.7 6.6 - 11.1 fL 07/17/2024 10:52 AM [facility] 56 Blood Venous blood specimen / Unknown Central Line / Unknown 07/17/2024 10:18 AM EST 07/17/2024 10:48 AM EST us Kanu Maravilla MD LAB BLOOD ORDERABLES Final Res ult [facility] 56- [address] [place] [address] * HCG QUALITATIVE, URINE (07/17/2024 10:18 AM EST) Pathologist [facility] HCG Qualitative, Urine Negative Negative 07/17/2024 11:20 AM [facility] 56-02 Urine Urine specimen obtained by clean catch procedure / Unknown Non-blood Collection / Unknown 07/17/2024 10:18 AM EST 07/17/2024 11:04 AM EST us Kanu Maravilla MD LAB URINE ORDERABLES Final Res ult [address] [place] [address] * (ABNORMAL) COMPREHENSIVE METABOLIC PANEL (07/17/2024 10:18 AM EST) BUN 13 6 - 20 mg/dL 07/17/2024 11:[address] CREATININE 0.8 0.5 - 1.0 mg/dL 07/17/2024 11:[address] EGFR >90 >=60 mL/min 07/17/2024 11:[address] Comment:eGFR is calculated b ased on the CKD-EPI 2020 equation. SODIUM 141 135 - 146 mmol/L 07/17/2024 11:[address] POTASSIUM 4.3 3.5 - 5.1 mmol/L 07/17/2024 11:[address] CHLORIDE 106 98 - 107 mmol/L 07/17/2024 11:[address] CO2 22 22 - 32 mmol/L 07/17/2024 11:[address] ANION GAP 13 7 - 15 mmol/L 07/17/2024 11:[address] GLUCOSE 115 70 - 120 mg/dL 07/17/2024 11:[address] Albumin 4.4 3.8 - 5.0 g/dL 07/17/2024 11:[address] AST <5(L) 10 - 35 U/L 07/17/2024 11:[address] Alkaline Phosphatase 87 35 - 130 U/L 07/17/2024 11:[address] Bilirubin, Total 0.5 <=1.2 mg/dL 07/17/2024 11:[address] CALCIUM 9.7 8.4 - 10.2 mg/dL 07/17/2024 11:[address] Protein 7.4 6.0 - 8.3 g/dL 07/17/2024 11:[address] ALT 17 10 - 35 U/L 07/17/2024 11:13 AM EST [facility] 56-02 Blood Venous blood specimen / Unknown Central Line / Unknown 07/17/2024 10:18 AM EST 07/17/2024 10:48 AM EST us Kanu Maravilla MD LAB BLOOD ORDERABLES Final Res ult [facility] 56-[address] [place] [address] * TSH WITH FREE T4 IF INDICATED (07/17/2024 10:18 AM EST) TSH 0.53 0.27 - 4.20 uIU/mL 07/17/2024 7:24 PM EST [facility] Blood Venous blood specimen / Unknown Central Line / Unknown 07/17/2024 10:18 AM EST 07/17/2024 10:48 AM EST us Mandeep Luna MD LAB BLOOD ORDERABLES Fin al Result LAB[facility]ATORY [facility] [address] [place] [address] documented in this encounter Visit [...] at 1100, For 1 dose, Restricted per [facility] antiemetic guidelinesIndications:Malig nant neoplasm of upper-outer quadrant [...] mL documented in this encounter Care Teams Aligner Barrel And Receiver Relationship Specialty Start Date End Date Malinda Owens CRNP 132 [facility] [place] [address] PCP - General Nurse Practitioner 09/20/23 documented as of this encounter
--- OUTSIDE RECORDS SUMMARY | 2024-09-05 14:28 | External Medical Summary | Summary of Care ---
Author Name Unknown Organization [facility] Address [address] [place] [address] Phone [phone] Care Team Providers Care Training Officer Name Role Phone Malinda Owens Primary Care Provider [phone] Reason for Visit * Reason Comments Chemotherapy [...] HCL Em Ng MD Hematology/Oncology Treatment, [address] [address] Phone: tel: fax: Referral ID Status Reason Start Date Expiration Date V isits Requested Visits Authorized [id number] Authorized 04/30/2024 06/17/2099 999 999 Encounter Details Date Type Department Care Team (Latest Contact Info) Description 07/03/2024 9:15 AM EST Hem/Onc Treatment Hematology/Oncolog y Treatment, [address] [place] [address] [place] Chair 4 Hem On[address] [place] [address] Encounter for antineoplastic chemotherapy*; Malignant neoplasm [...] complete. Enrolled in Current Health. Plans to tile picker meter from pharmacy today. Instructions provided [...] class I obesity. Per review of TEST ENGINEERING TECHNICIAN documentation of 09/25/23, blood glucose values [...] Recommend nutrition consult with RDN (Registered Dietitian Live In Caregiver). Lifestyle changes are also indicated including optimizing [...] and folate levels and referral to a 6th grade teacher. If hemoglobin levels are below 8 g/dl, we recommend Maternal Medicine ultrasound for growth every 4 weeks after 24 weeks. Consider a blood transfusion if hemoglobin levels fall below 6 g/dL. ([employer] and Principal Cloud Architect Practice Bulletin Number 95, December,). Consider Venofer [...] money to get more. 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 [place] [address] 08/28/2024 9:00 AM EDT Nurse Only Hematology/Oncology Treatment, [address], [place] [phone] [place], Chair 5 Hem Onc Scenery [address] [facility] [employer], [place] [address] 08/28/2024 9:30 AM EDT Office Visit Hematology/Oncology Scenery [place] [address] [employer], [place] [phone] Gabby Zavala CRNP [facility] [address] 08/28/2024 10:00 AM EDT Hem/Onc Treatment Hematology/Oncology Treatment, [address], [place] [phone] [place], Chair 7 Hem Onc Scenery 200 [facility] [employer], [place] [address] Health Maintenance Due Date Last Done Comments [...] this encounter Medical Devices Implanted Type Area Inclusion Manager Device Identifier Shelf Expiration Date Model / Serial / Lot Stent Angulo 4fr 11cm - [id number] Implanted:Qty : 1 on 02/08/2024 by Jeffrey Kerr MD at OR [facility] [employer] [id number] 08/16/2028 [id number] / / [id number] Port Implant W8f Poly Cath - [id number] Implanted:Qty : 1 on 05/02/2024 by Iam Curry MD at OR [facility] Right: Chest CR BARD : PERIPHERAL VASCULAR [id number] 05/17/2025 [id number] / / [id number] documented as of this encounter Procedures Procedure [...] TECHNOLOGIST REVIEW (07/03/2024 9:37 AM EST) Pathologist [facility] [place] nRs 07/03/2024 10:01 AM EST [facility] 56-02 Reactive Lymphocytes Present(A ) None Seen 07/03/2024 10:01 AM [facility] 56-02 Blood Venous blood specimen / Unknown Venipuncture / Unknown 07/03/2024 9:37 AM EST 07/03/2024 9:45 AM EST Kanu Maravilla MD LAB BLOOD ORDERABLES Final Res ult [facility] 56-[address] [place] [address] * (ABNORMAL) DIFFERENTIAL, AUTOMATED (07/03/2024 9:37 AM EST) Pathologist [facility] [place] WBC 3.54(L) 4.00 - 10.80 K/uL 07/03/2024 10:01 AM EST [facility] 56-02 Neutrophils % 57.1 40.0 - 75.0 % 07/03/2024 10:01 AM [facility] 56-02 Lymphocytes % 36.7 18.0 - 42.0 % 07/03/2024 10:01 AM EST [facility] 56-02 Monocytes % 5.9 1.0 - 11.0 % 07/03/2024 10:01 AM EST [facility] 56-02 Eosinophils % 0.0 0.0 - 6.0 % 07/03/2024 10:01 AM [facility] 56- Basophils % 0.3 0.0 - 2.0 % 07/03/2024 10:01 AM [facility] 56-02 Absolute Neutrophils 2.02 1.80 - 7.70 K/uL 07/03/2024 10:01 AM [facility] 56- Absolute Lymphocytes 1.30 1.00 - 4.80 K/ul 07/03/2024 10:01 AM [facility] 56- Absolute Monocytes 0.21 0.00 - 1.10 K/uL 07/03/2024 10:01 AM [facility] 56- Absolute Eosinophils 0.00 0.00 - 0.70 K/uL 07/03/2024 10:01 AM [facility] 56- Absolute Basophils 0.01 0.00 - 0.20 K/uL 07/03/2024 10:01 AM [facility] 56- Blood Venous blood specimen / Unknown Venipuncture / Unknown 07/03/2024 9:37 AM EST 07/03/2024 9:45 AM EST us Kanu Maravilla MD LAB BLOOD ORDERABLES Final Res ult [facility] 56- [address] [place] [id number] * (ABNORMAL) CBC (07/03/2024 9:37 AM EST) WBC 3.54(L) 4.00 - 10.80 K/uL 07/03/2024 10:01 AM [facility] 56- RBC 3.21 3.85 - 5.15 M/uL 07/03/2024 10:01 AM [facility] 56- HGB 10.5(L) 12.0 - 15.3 g/dL 07/03/2024 10:01 AM [facility] 56- HCT 31.7(L) 36.0 - 45.2 % 07/03/2024 10:01 AM [facility] 56- MCV 98.8 81.5 - 97.5 fL 07/03/2024 10:01 AM [facility] 56- MCH 32.7 27.0 - 34.0 pg 07/03/2024 10:01 AM [facility] 56- MCHC 33.1 32.0 - 36.0 g/dL 07/03/2024 10:01 AM [facility] 56- RDW 13.3 11.5 - 15.5 % 07/03/2024 10:01 AM [facility] 56- PLT 178 140 - 400 K/uL 07/03/2024 10:01 AM [facility] 56- MPV 9.1 6.6 - 11.1 fL 07/03/2024 10:01 AM [facility] 56- Blood Venous blood specimen / Unknown Venipuncture / Unknown 07/03/2024 9:37 AM EST 07/03/2024 9:45 AM EST Kanu Maravilla MD LAB BLOOD ORDERABLES Final Res ult [facility] 56 [address] [place] [address] * HCG QUALITATIVE, URINE (07/03/2024 9:37 AM EST) HCG Qualitative, Urine Negative Negative 07/03/2024 9:51 AM [facility] 56 Urine Urine specimen obtained by clean catch procedure / Unknown Non-blood Collection / Unknown 07/03/2024 9:37 AM EST 07/03/2024 9:45 AM EST Kanu Maravilla MD LAB URINE ORDERABLES Final Res ult [facility] 56[facility] 200 [place] [address] * (ABNORMAL) COMPREHENSIVE METABOLIC PANEL (07/03/2024 9:37 AM EST) BUN 12 6 - 20 mg/dL 07/03/2024 10:07 AM [facility] 56 CREATININE 0.7 0.5 - 1.0 mg/dL 07/03/2024 10:07 AM [facility] 5602 EGFR >90 >=60 mL/min 07/03/2024 10:07 AM [facility] 56-02 Comment:eGFR is calculated b ased on the CKD-EPI 2020 equation. SODIUM 140 135 - 146 mmol/L 07/03/2024 10:07 AM [facility] 56- POTASSIUM 3.9 3.5 - 5.1 mmol/L 07/03/2024 10:07 AM [facility] 56- CHLORIDE 105 98 - 107 mmol/L 07/03/2024 10:07 AM [facility] 56 CO2 20(L) 22 - 32 mmol/L 07/03/2024 10:07 AM [facility] 56 ANION GAP 15 7 - 15 mmol/L 07/03/2024 10:07 AM [facility] 56 GLUCOSE 141(H) 70 - 120 mg/dL 07/03/2024 10:07 AM [facility] 56 Albumin 4.3 3.8 - 5.0 g/dL 07/03/2024 10:07 AM [facility] 56 AST 15 10 - 35 U/L 07/03/2024 10:07 AM [facility] 56 Alkaline Phosphatase 83 35 - 130 U/L 07/03/2024 10:07 AM [facility] 56- Bilirubin, Total 0.4 <=1.2 mg/dL 07/03/2024 10:07 AM [facility] 56- CALCIUM 9.3 8.4 - 10.2 mg/dL 07/03/2024 10:07 AM [facility] 56- Protein 7.1 6.0 - 8.3 g/dL 07/03/2024 10:07 AM [facility] 56-02 ALT 14 10 - 35 U/L 07/03/2024 10:07 AM [facility] 56-02 Blood Venous blood specimen / Unknown Venipuncture / Unknown 07/03/2024 9:37 AM EST 07/03/2024 9:45 AM EST us Kanu Maravilla MD LAB BLOOD ORDERABLES Final Res ult [facility] 56-[address] [place] [address] documented in this encounter Visit Diagnoses Diagnosis [...] mL documented in this encounter Care Teams Training Officer Relationship Specialty Start Date End Date Malinda Owens CRNP [address] [facility] [place] [address] PCP - General Nurse Practitioner 09/20/23 documented as of this encounter
--- OUTSIDE RECORDS SUMMARY | 2024-09-05 14:28 | External Medical Summary | Summary of Care ---
Author Name Unknown Organization [facility] Address [address] [place] [address] Phone [phone] Care Team Providers Care Animal Husbandman Name Role Phone Malinda Owens Primary Care Provider [phone] Reason for Visit * Reason Comments Chemotherapy C3/D8 - Taxol, Carbo * Episode Based Medications (Routine) - Authorized Specialty Diagnoses / Procedures Referred By Contac t Referred To Contact Diagnoses Malignant neoplasm of upper-outer quadrant of left breast in female, estrogen receptor negative (HCC) Encounter for antineoplastic chemotherapy Encounter for prevention of neutropenia due to chemotherapy Procedures OH DOXORUBIC HCL 10 MG VL CHEMO OH CARBOPLATIN INJECTION [place] FOSAPREPITANT INJECTION OH INJ PEMBROLIZUMAB OH INJECTION, FULPHILA OH PACLITAXEL INJECTION OH INJ CYCLOPHOSPHAMD AUROMEDIC OH PALONOSETRON HCL Em Ng MD Hematology/Oncology Treatment, [address] [address] Phone: tel: fax: Referral ID Status Reason Start Date Expiration Date V isits Requested Visits Authorized [id number] Authorized 04/30/2024 06/17/[phone] Encounter Details Date Type Department Care Team (Latest Contact Info) Description 06/26/2024 10:00 AM EST Hem/Onc Treatment Hematology/Oncolog y Treatment, [address] [address] [place], Chair 1 [address] [place] [address] Malignant neoplasm of upper-outer [...] and class I obesity. Per review of DRYING MACHINE OPERATOR PACKAGE YARNS documentation of 09/25/23, blood glucose values have [...] Recommend nutrition consult with RDN (Registered Dietitian Utility Operator Yarn). Lifestyle changes are also indicated including optimizing [...] and folate levels and referral to a sort worker. If hemoglobin levels are below 8 g/dl, we recommend Maternal Medicine ultrasound for growth every 4 weeks after 24 weeks. Consider a blood transfusion if hemoglobin levels fall below 6 g/dL. ([employer] and Diesel Fleet Mechanic Practice Bulletin Number 95, December,). Consider Venofer [...] money to get more. 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 on file Not [...] 8:45 AM EST Hem/Onc Treatment Hematology/[address], [address] [phone] [place], Chair 7 Hem Onc Scenery 200 [facility] [place] [address] 08/07/2024 9:00 AM EST Hem/Onc Treatment Hematology/Oncology [address] [address] [place], Chair 7 Hem Onc Scenery 200 [facility] [place] [address] 08/28/2024 9:00 AM EDT Nurse Only Hematology/Oncology Treatment, [address] [phone] [place], Chair 5 Hem Onc Scenery 200 [facility] [place] [address] 08/28/2024 9:30 AM EDT Office Visit Hematology/Oncology Scenery [place] [address] [place] [phone] Gabby Zavala CRNP [address] [place] [address] [place] [address] 08/28/2024 10:00 AM EDT Hem/Onc Treatment Hematology/Oncology Treatment [address] [place] [phone] [place], Chair 7 Hem Onc Scenery [address] [place] [address] Health Maintenance Due Date Last Done Comments [...] this encounter Medical Devices Implanted Type Area High School Learning Support Teacher Device Identifier Shelf Expiration Date Model / Serial / Lot Stent Angulo 4fr 11cm - [id number] Implanted:Qty : 1 on 02/08/2024 by Jeffrey Kerr MD at OR [facility] [employer] [id number] 08/16/2028 [id number] / / [id number] Port Implant W8f Poly Cath - [id number] Implanted:Qty : 1 on 05/02/2024 by Iam Curry MD at OR [facility] Right: Chest CR BARD : PERIPHERAL VASCULAR [id number] 05/17/2025 [id number] / / [id number] documented as of this encounter Visit Diagnoses [...] mL documented in this encounter Care Teams Animal Husbandman Relationship Specialty Start Date End Date Malinda Owens CRNP [address] [place] [address] PCP - General Nurse Practitioner 09/20/23 documented as of this encounter
--- OUTSIDE RECORDS SUMMARY | 2024-09-05 14:28 | External Medical Summary | Summary of Care ---
Author Name Unknown Organization [facility] Address [address] [place] [address] Phone [phone] Care Team Providers Care Field Crop Technical Officer Name Role Phone Roman Malinda DUONG Primary Care Provider [phone] Reason for Visit * Reason Comments Chemotherapy [...] PALONOSETRON HCL Em Ng MD Hematology/Oncology Treatment, [address] [place] [address] Phone: tel: fax: Referral ID Status Reason Start Date Expiration Date V isits Requested Visits Authorized [id number] Authorized 04/30/2024 06/17/[phone] Encounter Details Date Type Department Care Team (Latest Contact Info) Description 07/17/2024 10:00 AM EST Hem/Onc Treatment Hematology/Oncolog y Treatment, [address] [place] [address] [place] Chair [address] [place] [address] Encounter for antineoplastic chemotherapy*; Malignant neoplasm [...] and class I obesity. Per review of PANEL INSTALLER documentation of 09/25/23, blood glucose values have [...] Recommend nutrition consult with RDN (Registered Dietitian Ink Jet Operator). Lifestyle changes are also indicated including [...] and folate levels and referral to a reservoir caretaker. If hemoglobin levels are below 8 g/dl, we recommend Maternal Medicine ultrasound for growth every 4 weeks after 24 weeks. Consider a blood transfusion if hemoglobin levels fall below 6 g/dL. ([employer] and Floor Installer Practice Bulletin Number 95, December,). Consider Venofer [...] money to get more. 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 file [...] in this encounter Nursing Notes * Jaqueline Aernas RN - 07/17/2024 2:36 PM EST Patient [...] 8:45 AM EST Hem/Onc Treatment Hematology/Oncology Treatment, [address] [phone] Chair [place] 7 Hem On[address] [place] [address] 08/07/2024 9:00 AM EST Hem/Onc Treatment Hematology/Oncology Treatment, [address] [address] Chair [place] 7 Hem Onc [address] [place] [address] 08/28/2024 9:00 AM EDT Nurse Only Hematology/Oncology Treatment, [address] [address] [place], Chair 5 Hem Onc Scene 200 [facility] [place] [place] [address] 08/28/2024 9:30 AM EDT Office Visit Hematology/Oncology [facility] [address] [facility], [place] [phone] Gabby Zavala CRNP [address] [facility] [address] 08/28/2024 10:00 AM EDT Hem/Onc Treatment Hematology/Oncology Treatment, [place] 200 [facility], [place] [address] [place], Chair 7 Hem Onc [facility] 200 [facility] [place], [place] [address] Health Maintenance Due Date Last Done Comments [...] this encounter Medical Devices Implanted Type Area Pyrotechnic Assembler Device Identifier Shelf Expiration Date Model / Serial / Lot Stent Angulo 4fr 11cm - [id number] Implanted:Qty : 1 on 02/08/2024 by Jeffrey Kerr MD at OR [facility] [employer] [id number] 08/16/2028 6546 / / [id number] Port Implant W8f Poly Cath - [id number] Implanted:Qty : 1 on 05/02/2024 by Iam Curry MD at OR [facility] Right: Chest CR BARD : PERIPHERAL VASCULAR [id number] 05/17/2025 [id number] / / [id number] documented as of this encounter Procedures Procedure [...] 10.80 K/uL 07/17/2024 10:52 AM EST [facility] 56-02 Neutrophils % 53.7 40.0 - 75.0 % 07/17/2024 10:52 AM [facility] 56-02 Lymphocytes % 35.5 18.0 - 42.0 % 07/17/2024 10:52 AM [facility] 56-02 Monocytes % 10.5 1.0 - 11.0 % 07/17/2024 10:52 AM [facility] 56-02 Eosinophils % 0.0 0.0 - 6.0 % 07/17/2024 10:52 AM [facility] 56-02 Basophils % 0.3 0.0 - 2.0 % 07/17/2024 10:52 AM [facility] 56-02 Absolute Neutrophils 1.95 1.80 - 7.70 K/uL 07/17/2024 10:52 AM [facility] 56-02 Absolute Lymphocytes 1.29 1.00 - 4.80 K/ul 07/17/2024 10:52 AM [facility] 56-02 Absolute Monocytes 0.38 0.00 - 1.10 K/uL 07/17/2024 10:52 AM [facility] 56-02 Absolute Eosinophils 0.00 0.00 - 0.70 K/uL 07/17/2024 10:52 AM [facility] 56-02 Absolute Basophils 0.01 0.00 - 0.20 K/uL 07/17/2024 10:52 AM [facility] 56-02 Blood Venous blood specimen / Unknown Central Line / Unknown 07/17/2024 10:18 AM EST 07/17/2024 10:48 AM EST us Kanu Maravilla MD LAB BLOOD ORDERABLES Final Res ult [facility] 56-[address] [place] [address] * (ABNORMAL) CBC (07/17/2024 10:18 AM EST) WBC 3.63(L) 4.00 - 10.80 K/uL 07/17/2024 10:52 AM [facility] 56-02 RBC 3.26 3.85 - 5.15 M/uL 07/17/2024 10:52 AM [facility] 56 HGB 11.0(L) 12.0 - 15.3 g/dL 07/17/2024 10:52 AM [facility] 56- HCT 33.7(L) 36.0 - 45.2 % 07/17/2024 10:52 AM [facility] 56- MCV 103.4 81.5 - 97.5 fL 07/17/2024 10:52 AM [facility] 56 MCH 33.7 27.0 - 34.0 pg 07/17/2024 10:52 AM [facility] 56 MCHC 32.6 32.0 - 36.0 g/dL 07/17/2024 10:52 AM [facility] 56- RDW 16.3 11.5 - 15.5 % 07/17/2024 10:52 AM [facility] 56 PLT 194 140 - 400 K/uL 07/17/2024 10:52 AM [facility] 56 MPV 8.7 6.6 - 11.1 fL 07/17/2024 10:52 AM [facility] 56 Blood Venous blood specimen / Unknown Central Line / Unknown 07/17/2024 10:18 AM EST 07/17/2024 10:48 AM EST us Kanu Maravilla MD LAB BLOOD ORDERABLES Final Res ult [facility] 56- [address] [place] [address] * HCG QUALITATIVE, URINE (07/17/2024 10:18 AM EST) Pathologist [facility] HCG Qualitative, Urine Negative Negative 07/17/2024 11:20 AM [facility] 56-02 Urine Urine specimen obtained by clean catch procedure / Unknown Non-blood Collection / Unknown 07/17/2024 10:18 AM EST 07/17/2024 11:04 AM EST us Kanu Maravilla MD LAB URINE ORDERABLES Final Res ult [address] [place] [address] * (ABNORMAL) COMPREHENSIVE METABOLIC PANEL (07/17/2024 10:18 AM EST) BUN 13 6 - 20 mg/dL 07/17/2024 11:[address] CREATININE 0.8 0.5 - 1.0 mg/dL 07/17/2024 11:[address] EGFR >90 >=60 mL/min 07/17/2024 11:[address] Comment:eGFR is calculated b ased on the CKD-EPI 2020 equation. SODIUM 141 135 - 146 mmol/L 07/17/2024 11:[address] POTASSIUM 4.3 3.5 - 5.1 mmol/L 07/17/2024 11:[address] CHLORIDE 106 98 - 107 mmol/L 07/17/2024 11:[address] CO2 22 22 - 32 mmol/L 07/17/2024 11:[address] ANION GAP 13 7 - 15 mmol/L 07/17/2024 11:[address] GLUCOSE 115 70 - 120 mg/dL 07/17/2024 11:[address] Albumin 4.4 3.8 - 5.0 g/dL 07/17/2024 11:[address] AST <5(L) 10 - 35 U/L 07/17/2024 11:[address] Alkaline Phosphatase 87 35 - 130 U/L 07/17/2024 11:[address] Bilirubin, Total 0.5 <=1.2 mg/dL 07/17/2024 11:[address] CALCIUM 9.7 8.4 - 10.2 mg/dL 07/17/2024 11:[address] Protein 7.4 6.0 - 8.3 g/dL 07/17/2024 11:[address] ALT 17 10 - 35 U/L 07/17/2024 11:13 AM EST [facility] 56-02 Blood Venous blood specimen / Unknown Central Line / Unknown 07/17/2024 10:18 AM EST 07/17/2024 10:48 AM EST us Kanu Maravilla MD LAB BLOOD ORDERABLES Final Res ult [facility] 56-[address] [place] [address] * TSH WITH FREE T4 IF INDICATED (07/17/2024 10:18 AM EST) TSH 0.53 0.27 - 4.20 uIU/mL 07/17/2024 7:24 PM EST [facility] Blood Venous blood specimen / Unknown Central Line / Unknown 07/17/2024 10:18 AM EST 07/17/2024 10:48 AM EST us Mandeep Luna MD LAB BLOOD ORDERABLES Fin al Result [facility] [address] [place] [address] documented in this encounter Visit [...] at 1100, For 1 dose, Restricted per [facility] antiemetic guidelinesIndications:Malig nant neoplasm of upper-outer [...] mL documented in this encounter Care Teams Field Crop Technical Officer Relationship Specialty Start Date End Date Malinda Owens CRNP 132 [facility] [place] [address] PCP - General Nurse Practitioner 09/20/23 documented as of this encounter
--- OUTSIDE RECORDS SUMMARY | 2024-09-05 14:29 | External Medical Summary | Summary of Care ---
Author Name Unknown Organization [facility] Address [address] [place] [address] Phone [phone] Care Team Providers Care Application Security Engineer Name Role Phone Malinda Owens Primary Care Provider [phone] Reason for Visit * Reason Comments Medication Administration Lupron * Episode Based Medications (Routine) - Authorized Specialty Diagnoses / Procedures Referred By Contac t Referred To Contact Diagnoses Malignant neoplasm of upper-outer quadrant of left breast in female, estrogen receptor negative (HCC) Encounter for fertility preservation procedure Suppression of ovarian secretion Procedures OR LEUPROLIDE ACETATE /3.75 MG Em Ng MD Hematology/Oncology Treatment, [address] [address] Phone: tel: fax: Referral ID Status Reason Start Date Expiration Date V isits Requested Visits Authorized [id number] Authorized 05/08/2024 06/16/2099 [id number] Encounter Details Date Type Department Care Team (Latest Contact Info) Description 07/18/2024 1:00 PM EST Immunization/I njection Hematology/Oncology Treatment, [address] [address] [place], Chair [address] [address] Malignant neoplasm of upper-outer quadrant of left breast in female, estrogen receptor negative (HCC)*; Encounter for fertility preservation procedure; Suppression of ovarian secretion Allergies No known active allergiesdocumented as of this encounter (statuses as of 07/26/2024) Medications 29-1 MG Oral Tablet Chewable Take [...] complete. Enrolled in Current Health. Plans to car pick up driver meter from pharmacy today. Instructions provided [...] and class I obesity. Per review of GROCERY DELIVERER documentation of 09/25/23, blood glucose values have [...] Recommend nutrition consult with RDN (Registered Dietitian Leather Goods Sales Representative). Lifestyle changes are also indicated including optimizing [...] and folate levels and referral to a mortar man. If hemoglobin levels are below 8 g/dl, we recommend Maternal Medicine ultrasound for growth every 4 weeks after 24 weeks. Consider a blood transfusion if hemoglobin levels fall below 6 g/dL. ([employer] Practice Bulletin Number 95, December,). Consider Venofer [...] money to get more. Never true 03/26/2024 [place] Depression Scale Answer Date Recorded [place] Depression Scale Total 6 12/11/2023 The thought [...] No 03/26/2024 Does the household have a presbyterian hospitallar source of income? 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 Patient with no complaints. Lupron administered without difficulty. See MAR, patient tolerated well. Patient left facility in stable condition. documented in this encounter Plan of Treatment Upcoming Encounters Date Type Department Care Team (Late st Contact Info) Description 07/31/2024 8:45 AM EST Hem/Onc Treatment Hematology/[place]cology Treatment, [place] [address] [place] [address] [place], Chair 7 Hem Onc Scen[place] [address] [place] [address] 08/07/2024 9:00 AM EST Hem/Onc Treatment Hematology/Oncology Treatment, [place] [address] [place] [address] [place], Chair 7 Hem Onc Scenery 200 [facility] [place] [address] 08/28/2024 9:00 AM EDT Nurse Only Hematology/Oncology Treatment, [place] [address] [place] [address] [place], Chair [address] [facility] [address] [facility] [place] [address] 08/28/2024 9:30 AM EDT Office Visit Hematology/Oncology [address], [place] [phone] Gabby [facility]avala CR[facility] [address] [facility] [address] 08/28/2024 10:00 AM EDT Hem/Onc Treatment Hematology/Oncology Treatment, [address], [place] [address] [place], Chair [address] [facility] [address] [place] [address] [place] [address] Health Maintenance Due Date Last Done Comments [...] this encounter Medical Devices Implanted Type Area Green End Department Supervisor Device Identifier Shelf Expiration Date Model / Serial / Lot Stent Angulo 4fr 11cm - [id number] Implanted:Qty : 1 on 02/08/2024 by Jeffrey Kerr MD at OR [facility] [employer] [id number] 08/16/2028 [id number] / / [id number] Port Implant W8f Poly Cath - [id number] Implanted:Qty : 1 on 05/02/2024 by Iam Curry MD at OR [facility] Right: Chest CR BARD : PERIPHERAL VASCULAR [id number] 05/17/2025 [id number] / / [id number] documented as of this encounter Visit Diagnoses [...] 3.75 mg 3.75 mg, Intramuscular, ONCE, On Sun07/18/24 at 1345, For 1 doseIndications:Malignan t neoplasm of upper-outer quadrant of left breast in female, estrogen receptor negative (HCC),Encounter for fertility preservation procedure,Suppression of ovarian secretion Given 07/18/2024 1:19 PM EST 3.75 mg Ventrogluteal Left documented in this encounter Care Teams Application Security Engineer Relationship Specialty Start Date End Date Malinda Owens CRNP [address] [facility] [place] [address] PCP - General Nurse Practitioner 09/20/23 documented as of this encounter
--- OUTSIDE RECORDS SUMMARY | 2024-09-05 14:29 | External Medical Summary | Summary of Care ---
Author Name Unknown Organization [facility] Address [address] [place] [address] Phone [phone] Care Team Providers Care Furniture Stainer Name Role Phone Malinda Owens Primary Care Provider [phone] Reason for Visit * Reason Comments Chemotherapy Taxol/Carbo * Episode Based Medications (Routine) - Authorized Specialty Diagnoses / Procedures Referred By Contac t Referred To Contact Diagnoses Malignant neoplasm of upper-outer quadrant of left breast in female, estrogen receptor negative (HCC) Encounter for antineoplastic chemotherapy Encounter for prevention of neutropenia due to chemotherapy Procedures MI DOXORUBIC HCL 10 MG VL CHEMO MI CARBOPLATIN INJECTION MI FOSAPREPITANT INJECTION MI INJ PEMBROLIZUMAB MI INJECTION, FULPHILA MI PACLITAXEL INJECTION MI INJ CYCLOPHOSPHAMD AUROMEDIC MI PALONOSETRON HCL Em Ng MD Hematology/Oncology Treatment, [address] [address] Phone: tel: fax: Referral ID Status Reason Start Date Expiration Date V isits Requested Visits Authorized [id number] Authorized 04/30/2024 06/17/2099 [id number] Encounter Details Date Type Department Care Team (Latest Contact Info) Description 07/24/2024 9:30 AM EST Hem/Onc Treatment Hematology/Oncolog y Treatment, [address] [address] [place], Chair [address] Hem [address] [address] Malignant neoplasm of upper-outer quadrant of left breast in female, estrogen receptor negative (HCC)*; Encounter for antineoplastic chemotherapy; Encounter for prevention of neutropenia due to chemotherapy Allergies No known active allergiesdocumented as of this encounter (statuses as of 07/25/2024) Medications 19 29-1 MG Oral Tablet Chewable [...] as of this encounter (statuses as of 07/25/2024) Active Problems Problem Noted Date Diagnosed Date [...] complete. Enrolled in Current Health. Plans to flower buncher or picker meter from pharmacy today. Instructions provided [...] and class I obesity. Per review of RECRUITER ACCOUNT MANAGER documentation of 09/25/23, blood glucose values [...] Recommend nutrition consult with RDN (Registered Dietitian Labor Relations Teacher). Lifestyle changes are also indicated including optimizing [...] and folate levels and referral to a assembler hydraulic backhoe. If hemoglobin levels are below 8 g/dl, we recommend Maternal Medicine ultrasound for growth every 4 weeks after 24 weeks. Consider a blood transfusion if hemoglobin levels fall below 6 g/dL. ([employer] Practice Bulletin Number 95, December,). Consider Venofer [...] as of this encounter (statuses as of 07/25/2024) Resolved Problems Problem Noted Date Diagnosed Date Resolved Date Abnormal glucose tolerance i n mother complicating 04/19/2023 08/31/2023 Overview (04/19/2023): Failed early glucola. 3hr GTT ordered documented as of this encounter (statuses as of 07/25/2024) Immunizations Name Administration Dates Next Due DTP [...] money to get more. 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 Not on [...] 8:45 AM EST Hem/Onc Treatment [address]ematology[address] [phone] [place], Chair 7 Hem Onc Scenery [address] [facility] [place] [address] 08/07/2024 9:00 AM EST Hem/Onc Treatment Hematology/[address]cology [address], [address] [address] [place], Chair 7 Hem Onc Scenery 200 [facility] [place] [address] 08/28/2024 9:00 AM EDT Nurse Only Hematology/Oncology [address], [address] [address] [place], Chair 5 Hem Onc Scenery 200 [facility] [place] [address] 08/28/2024 9:30 AM EDT Office Visit Hematology/Oncology Scenery [address] [place] [address] Gabby Zavala CRNP [address] [place], [place] [address] [address] 08/28/2024 10:00 AM EDT Hem/Onc Treatment Hematology/[address]cology [address], [address] [address] [place], Chair 7 Hem Onc Scenery [address] [facility] [place] [address] Health Maintenance Due Date Last Done Comments [...] and 19+ Years) Aged Out No longer brandonb areli based on patient's age to complete this topic documented as of this encounter Medical Devices Implanted Type Area Buttermaker Continuous Churn Device Identifier Shelf Expiration Date Model / Serial / Lot Stent Kev 4fr 11cm - [id number] Implanted:Qty : 1 on 02/08/2024 by Jeffrey Kerr MD at OR [facility] [employer] [id number] 08/16/2028 [id number] / / [id number] Port Implant W8f Poly Cath - [id number] Implanted:Qty : 1 on 05/02/2024 by Iam Curry MD at OR [facility] Right: Chest CR BARD : PERIPHERAL VASCULAR [id number] 05/17/2025 [id number] / / [id number] documented as of this encounter Visit Diagnoses [...] at 0945, For 1 dose, Restricted per S antiemetic guidelinesIndications:Malign ant neoplasm of upper-outer quadrant [...] mL documented in this encounter Care Teams Furniture Stainer Relationship Specialty Start Date End Date Malinda Owens CRNP 132 [facility] [place] [address] PCP - General Nurse Practitioner 09/20/23 documented as of this encounter
--- OUTSIDE RECORDS SUMMARY | 2024-09-05 14:29 | External Medical Summary | Summary of Care ---
Author Name Unknown Organization [facility] Address [address] [place] [address] Phone [phone] Care Team Providers Care De Alcoholizer Name Role Phone Malinda Owens Primary Care Provider [phone] Reason for Visit * Reason Comments Chemotherapy Taxol/Carbo * Episode Based Medications (Routine) - Authorized Specialty Diagnoses / Procedures Referred By Contac t Referred To Contact Diagnoses Malignant neoplasm of upper-outer quadrant of left breast in female, estrogen receptor negative (HCC) Encounter for antineoplastic chemotherapy Encounter for prevention of neutropenia due to chemotherapy Procedures ID DOXORUBIC HCL 10 MG VL CHEMO ID CARBOPLATIN INJECTION ID FOSAPREPITANT INJECTION ID INJ PEMBROLIZUMAB ID INJECTION, FULPHILA ID PACLITAXEL INJECTION ID INJ CYCLOPHOSPHAMD AUROMEDIC ID PALONOSETRON HCL Em Ng MD Hematology/Oncology Treatment, [address] [address] Phone: tel: fax: Referral ID Status Reason Start Date Expiration Date V isits Requested Visits Authorized [id number] Authorized 04/30/2024 06/17/2099 [id number] Encounter Details Date Type Department Care Team (Latest Contact Info) Description 07/24/2024 9:30 AM EST Hem/Onc Treatment Hematology/Oncolog y Treatment, [address] [address] [place], Chair 11 Hem On[address] [address] Malignant neoplasm of upper-outer quadrant of left breast in female, estrogen receptor negative (HCC)*; Encounter for antineoplastic chemotherapy; Encounter for prevention of neutropenia due to chemotherapy Allergies No known active allergiesdocumented as of this encounter (statuses as of 07/24/2024) Medications 19 29-1 MG Oral Tablet Chewable [...] as of this encounter (statuses as of 07/24/2024) Active Problems Problem Noted Date Diagnosed Date [...] complete. Enrolled in Current Health. Plans to warehouse picker meter from pharmacy today. Instructions provided [...] and class I obesity. Per review of ENGINEERING TEST SPECIALIST documentation of 09/25/23, blood glucose values [...] Recommend nutrition consult with RDN (Registered Dietitian Production Material Handler). Lifestyle changes are also indicated including [...] folate levels and referral to a tax expert. If hemoglobin levels are below 8 g/dl, we recommend Maternal Medicine ultrasound for growth every 4 weeks after 24 weeks. Consider a blood transfusion if hemoglobin levels fall below 6 g/dL. ([employer] Leach Run[employer] Practice Bulletin Number 95, December,). Consider Venofer [...] as of this encounter (statuses as of 07/24/2024) Resolved Problems Problem Noted Date Diagnosed Date Resolved Date Abnormal glucose tolerance i n mother complicating 04/19/2023 08/31/2023 Overview (04/19/2023): Failed early glucola. 3hr GTT ordered documented as of this encounter (statuses as of 07/24/2024) Immunizations Name Administration Dates Next Due DTP [...] money to get more. 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 Not on file Not on file documented as of this encounter Nursing Notes * Ava Pope, RN - 07/24/2024 3:34 PM EST Pt [...] 8:45 AM EST Hem/Onc Treatment Hematology/Oncology Treatment, [address], [place] [address] [place], Chair 7 Hem Onc Scenery 200 [facility] [place] [address] 08/07/2024 9:00 AM EST Hem/Onc Treatment Hematology/Oncology Treatment, [address], [place] [address] [place], Chair 7 Hem Onc Scenery [address] [place] [address] [place] [address] 08/28/2024 9:00 AM EDT Nurse Only Hematology/Oncology Treatment, [address], [place] [address] [place], Chair 5 Hem Onc Scenery [address] [place] [address] [place] [address] 08/28/2024 9:30 AM EDT Office [facility] [address] [place] [address] Gabby Zavala, AD [address] [facility] [place] [facility] [place] [address] 08/28/2024 10:00 AM EDT Hem/Onc Treatment Hematology/Oncology [address], [address] [address] [place], Chair 7 Hem Onc Scenery 200 [facility] [place] [address] Health Maintenance Due Date Last Done Comments Depression Screening 2006 HPV (Gardasil) Vaccine (3 - 3-dose series) 02/05/2013 11/13/2012, 03/21/2012 COVID-19 Vaccine (2023- season) 2024 HPV/Co-Test 2024 Cervical Cancer Screening [...] this encounter Medical Devices Implanted Type Area Sqe Device Identifier Shelf Expiration Date Model / Serial / Lot Stent Angulo 4fr 11cm - [id number] Implanted:Qty : 1 on 02/08/2024 by Jeffrey Kerr MD at OR [facility] [employer] [id number] 08/16/2028 [id number] / / [id number] Port Implant W8f Poly Cath - [id number] Implanted:Qty : 1 on 05/02/2024 by Iam Curry MD at OR [facility] Right: Chest CR BARD : PERIPHERAL VASCULAR [id number] 05/17/2025 [id number] / / [id number] documented as of this encounter Visit Diagnoses [...] at 0945, For 1 dose, Restricted per [facility] antiemetic guidelinesIndications:Malign ant neoplasm of upper-outer quadrant [...] mL documented in this encounter Care Teams De Alcoholizer Relationship Specialty Start Date End Date Malinda Owens CRNP [address] [facility] [place] [address] PCP - General Nurse Practitioner 09/20/23 documented as of this encounter
--- OUTSIDE RECORDS SUMMARY | 2024-09-05 14:29 | External Medical Summary | Summary of Care ---
Author Name Unknown Organization [facility] Address [address] [facility] [place] [address] Phone [phone] Care Team Providers Care Cutlery Grinder Name Role Phone Malinda Owens Primary Care Provider [phone] Reason for Visit * Reason Comments Procedure Port flush, lab draw Encounter Details Date Type Department Care Team (Late st Contact Info) Description 07/24/2024 8:00 AM EST Nurse Only Hematology/Oncology Treatment, [address] [address] [place], Chair 5 Hem On[address] [address] Procedure (Port flush, lab draw) Allergies No known active allergiesdocumented as of [...] complete. Enrolled in Current Health. Plans to cigar packer and picker meter from pharmacy today. Instructions provided [...] and class I obesity. Per review of WARP BLEACH[employer] VAT TENDER documentation of 09/25/23, blood glucose values [...] Recommend nutrition consult with RDN (Registered Dietitian Corrections Specialist). Lifestyle changes are also indicated including optimizing [...] and folate levels and referral to a mason liner. If hemoglobin levels are below 8 g/dl, we recommend Maternal Medicine ultrasound for growth every 4 weeks after 24 weeks. Consider a blood transfusion if hemoglobin levels fall below 6 g/dL. ([employer] [facility] Account Services Specialist Practice Bulletin Number 95, December,). Consider [...] money to get more. 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 Kendrick blood for labs. VAD flushed with 20 ml NSS and capped with alcohol cap. Patient to room for appointment with Dr. Maravilla. documented in this encounter Plan of Treatment Upcoming Encounters Date Type Department Care Team (Latest Contact Info) Description 07/24/2024 9:30 AM EST Hem/Onc Treatment Hematology/[address]colog [address], [address] [phone] [place], Chair 11 Hem On[address] [place] [address] Malignant neoplasm of upper-outer quadrant of left breast in female, estrogen receptor negative (HCC)*; Encounter for antineoplastic chemotherapy; Encounter for prevention of neutropenia due to chemotherapy 07/31/2024 8:45 AM EST Hem/Onc Treatment Hematology/[address]olog [address], [address] [phone] [place], Chair 7 Hem Onc [address] [place] [address] Health Maintenance Due Date Last Done Comments COVID-19 Vaccine (#1) 1999 Depression Screening 2006 HPV (Gardasil) Vaccine (3 - 3-dose series) 02/05/2013 11/13/2012, 03/21/2012 HPV/Co-Test 2024 Cervical Cancer Screening 01/29/2026 Pap [...] and 19+ Years) Aged Out No longer eunice singleton based on patient's age to complete this topic documented as of this encounter Medical Devices Implanted Type Area Rails Developer Device Identifier Shelf Expiration Date Model / Serial / Lot Stent Angulo 4fr 11cm - [id number] Implanted:Qty : 1 on 02/08/2024 by Jeffrey Kerr MD at OR [facility] Compliance 360 [id number] 08/16/2028 [id number] / / [id number] Port Implant W8f Poly Cath - [id number] Implanted:Qty : 1 on 05/02/2024 by Iam Curry MD at OR [facility] Right: Chest CR BARD : PERIPHERAL VASCULAR [id number] 05/17/2025 [id number] / / [id number] documented as of this encounter Procedures Procedure Name Priority Date/Time Associated Diagnosis Comments DIFFERENTIAL, AUTOMATED STAT 07/24/2024 8:04 AM EST Malignant neoplasm of upper-outer quadrant of left breast in female, estrogen receptor negative (HCC) COMPREHENSIVE METABOLIC PANEL STAT 07/24/2024 8:04 AM EST Malignant neoplasm of upper-outer quadrant of left breast in female, estrogen receptor negative (HCC) CBC STAT 07/24/2024 8:04 AM EST Malignant neoplasm of upper-outer quadrant of left breast in female, estrogen receptor negative (HCC) CBC STAT 07/24/2024 8:04 AM EST Malignant neoplasm of upper-outer quadrant of left breast in female, estrogen receptor negative (HCC) DIFFERENTIAL, TECHNOLOGIST REVIEW Routine 07/24/2024 8:04 AM EST Malignant neoplasm of upper-outer quadrant of left breast in female, estrogen receptor negative (HCC) HCG QUALITATIVE, URINE STAT 8:04 AM EST Malignant neoplasm of upper-outer quadrant of left breast in female, estrogen receptor negative (HCC) documented in this encounter Results * (ABNORMAL) DIFFERENTIAL, TECHNOLOGIST REVIEW (07/24/2024 8:04 AM EST) nRs 07/24/2024 8:43 AM EST [facility] 56-02 Reactive Lymphocytes Present(A ) None Seen 07/24/2024 8:43 AM EST [facility] 56-02 Blood Venous blood specimen / Unknown Central Line / Unknown 07/24/2024 8:04 AM EST 07/24/2024 8:26 AM EST us Kanu Maravilla MD LAB BLOOD ORDERABLES Final Res ult [facility] 56- [address] [place], [place] [id number] * (ABNORMAL) DIFFERENTIAL, AUTOMATED (07/24/2024 8:04 AM EST) WBC 3.74(L) 4.00 - 10.80 K/uL 07/24/2024 8:43 AM EST [facility] 56-02 Neutrophils % 67.4 40.0 - 75.0 % 07/24/2024 8:43 AM EST [facility] 56-02 Lymphocytes % 31.8 18.0 - 42.0 % 07/24/2024 8:43 AM [facility] 56-02 Monocytes % 0.8(L) 1.0 - 11.0 % 07/24/2024 8:43 AM [facility] 56-02 Eosinophils % 0.0 0.0 - 6.0 % 07/24/2024 8:43 AM [facility] 56-02 Basophils % 0.0 0.0 - 2.0 % 07/24/2024 8:43 AM [facility] 56-02 Absolute Neutrophils 2.52 1.80 - 7.70 K/uL 07/24/2024 8:43 AM [facility] 56-02 Absolute Lymphocytes 1.19 1.00 - 4.80 K/ul 07/24/2024 8:43 AM [facility] 56-02 Absolute Monocytes 0.03 0.00 - 1.10 K/uL 07/24/2024 8:43 AM [facility] 56- Absolute Eosinophils 0.00 0.00 - 0.70 K/uL 07/24/2024 8:43 AM [facility] 56-02 Absolute Basophils 0.00 0.00 - 0.20 K/uL 07/24/2024 8:43 AM [facility] 56-02 Blood Venous blood specimen / Unknown Central Line / Unknown 07/24/2024 8:04 AM EST 07/24/2024 8:26 AM EST us Kanu Maravilla MD LAB BLOOD ORDERABLES Final Res ult [facility] 56- [address] [place] [id number] * (ABNORMAL) CBC (07/24/2024 8:04 AM EST) WBC 3.74(L) 4.00 - 10.80 K/uL 07/24/2024 8:43 AM [facility] 56- RBC 3.58 3.85 - 5.15 M/uL 07/24/2024 8:43 AM [facility] 56-02 HGB 12.1 12.0 - 15.3 g/dL 07/24/2024 8:43 AM [facility] 56-02 HCT 36.0 36.0 - 45.2 % 07/24/2024 8:43 AM [facility] 56- MCV 100.6 81.5 - 97.5 fL 07/24/2024 8:43 AM [facility] 56-02 MCH 33.8 27.0 - 34.0 pg 07/24/2024 8:43 AM [facility] 5602 MCHC 33.6 32.0 - 36.0 g/dL 07/24/2024 8:43 AM [facility] 56- RDW 15.0 11.5 - 15.5 % 07/24/2024 8:43 AM [facility] 56-02 PLT 188 140 - 400 K/uL 07/24/2024 8:43 AM [facility] 5602 MPV 9.5 6.6 - 11.1 fL 07/24/2024 8:43 AM [facility] 5602 Blood Venous blood specimen / Unknown Central Line / Unknown 07/24/2024 8:04 AM EST 07/24/2024 8:26 AM EST us Kanu Maravilla MD LAB BLOOD ORDERABLES Final Res ult [facility] 56- [address] [place] [address] * HCG QUALITATIVE, URINE (07/24/2024 8:04 AM EST) Pathologist [facility] HCG Qualitative, Urine Negative Negative 07/24/2024 9:07 AM [facility] Urine Urine specimen obtained by clean catch procedure / Unknown Non-blood Collection / Unknown 07/24/2024 8:04 AM EST 07/24/2024 9:01 AM EST aKnu Maravilla MD LAB URINE ORDERABLES Final Res ult [facility] 56- [address] [place] [address] * (ABNORMAL) COMPREHENSIVE METABOLIC PANEL (07/24/2024 8:04 AM EST) BUN 16 6 - 20 mg/dL 07/24/2024 8:50 AM [facility] 56- CREATININE 0.8 0.5 - 1.0 mg/dL 07/24/2024 8:50 AM [facility] 56- EGFR >90 >=60 mL/min 07/24/2024 8:50 AM [facility] 56- Comment:eGFR is calculated b ased on the CKD-EPI 2020 equation. SODIUM 139 135 - 146 mmol/L 07/24/2024 8:50 AM [facility] 56- POTASSIUM 4.2 3.5 - 5.1 mmol/L 07/24/2024 8:50 AM [facility] 56- CHLORIDE 102 98 - 107 mmol/L 07/24/2024 8:50 AM [facility] 56- CO2 21(L) 22 - 32 mmol/L 07/24/2024 8:50 AM [facility] 56- ANION GAP 16(H) 7 - 15 mmol/L 07/24/2024 8:50 AM [facility] 56- GLUCOSE 199(H) 70 - 120 mg/dL 07/24/2024 8:50 AM [facility] 56- Albumin 4.6 3.8 - 5.0 g/dL 07/24/2024 8:50 AM [facility] 56- AST 17 10 - 35 U/L 07/24/2024 8:50 AM [facility] 56- Alkaline Phosphatase 89 35 - 130 U/L 07/24/2024 8:50 AM [facility] 56- Bilirubin, Total 0.5 <=1.2 mg/dL 07/24/2024 8:50 AM [facility] 56- CALCIUM 9.9 8.4 - 10.2 mg/dL 07/24/2024 8:50 AM [facility] 56- Protein 7.8 6.0 - 8.3 g/dL 07/24/2024 8:50 AM [facility] 56- ALT 18 10 - 35 U/L 07/24/2024 8:50 AM [facility] 56- Blood Venous blood specimen / Unknown Central Line / Unknown 07/24/2024 8:04 AM EST 07/24/2024 8:26 AM EST us Kanu Maravilla MD LAB BLOOD ORDERABLES Final Res ult [facility] 56-[address] [place] [address] documented in this encounter Visit Diagnoses Diagnosis [...] for prevention of neutropenia due to chemotherapy Malignant neoplasm of upper-outer quadrant of left breast in female, estrogen receptor negative (HCC)- Primary documented in this encounter Administered Medications Inactive Administered Medications - up to 3 most recent administrations Medication Order MAR Action Action Date Dose Rate Site sodium chloride 0.9 % flush/inj 10 mL 10 mL, IV Push, PRN line flush, Starting on Bibi 07/24/24 at 0803, Until Bibi 07/24/24 at 0904, Do not flush if lock, PICC, or central line not in place; IV infusing or unable to flush. For midlines and central lines.Indications:Malignant neoplasm of upper-outer quadrant of left breast in female, estrogen receptor negative (HCC) Given 07/24/2024 8:43 AM EST 20 mL documented in this encounter Care Teams Cutlery Grinder Relationship Specialty Start Date End Date Malinda Owens CRNP [address] [place] [address] PCP - General Nurse Practitioner 09/20/23 documented as of this encounter
--- OUTSIDE RECORDS SUMMARY | 2024-09-05 14:29 | External Medical Summary | Summary of Care ---
Author Name Unknown Organization [facility] Address [address] [place] [facility] [place] [address] Phone [phone] Care Team Providers Care Saute Chef Name Role Phone Malinda Owens Primary Care Provider [phone] Reason for Visit * Reason Comments Procedure Port flush, lab draw Encounter Details Date Type Department Care Team (Late st Contact Info) Description 07/24/2024 8:00 AM EST Nurse Only Hematology/Oncology Treatment, [address] [address] [place], Chair [address] [address] Procedure (Port flush, lab draw) Allergies No [...] and class I obesity. Per review of WASTE BALER documentation of 09/25/23, blood glucose values have [...] Recommend nutrition consult with RDN (Registered Dietitian Vice President Of Contracts). Lifestyle changes are also indicated including optimizing [...] and folate levels and referral to a sand bobber. If hemoglobin levels are below 8 g/dl, we recommend Maternal Medicine ultrasound for growth every 4 weeks after 24 weeks. Consider a blood transfusion if hemoglobin levels fall below 6 g/dL. ([employer] [facility] Practice Bulletin Number 95, December,). Consider Venofer [...] money to get more. 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 Not [...] AM EST Hem/Onc Treatment Hematology/[address]olog y [address], [address] [phone] [place], Chair 11 Hem On[address] [place] [address] Malignant neoplasm of upper-outer quadrant of left breast in female, estrogen receptor negative (HCC)*; Encounter for antineoplastic chemotherapy; Encounter for prevention of neutropenia due to chemotherapy 07/31/2024 8:45 AM EST Hem/Onc Treatment Hematology/[address]colog [address], [address] [address] [place], Chair 7 Hem Onc [address] [place] [address] Health Maintenance Due Date Last Done Comments [...] this encounter Medical Devices Implanted Type Area Newspaper Delivery Counselor Device Identifier Shelf Expiration Date Model / Serial / Lot Stent Angulo 4fr 11cm - [id number] Implanted:Qty : 1 on 02/08/2024 by Jeffrey Kerr MD at OR [facility] [employer] [id number] 08/16/2028 [id number] / / [id number] Port Implant W8f Poly Cath - [id number] Implanted:Qty : 1 on 05/02/2024 by Iam Curry MD at OR [facility] Right: Chest CR BARD : PERIPHERAL VASCULAR [id number] 05/17/2025 [id number] / / [id number] documented as of this encounter Procedures Procedure [...] AM EST) nRs 07/24/2024 8:43 AM EST [facility] 56-02 Reactive Lymphocytes Present(A ) None Seen 07/24/2024 8:43 AM EST [facility] 56-02 Blood Venous blood specimen / Unknown Central Line / Unknown 07/24/2024 8:04 AM EST 07/24/2024 8:26 AM EST us Kanu Maravilla MD LAB BLOOD ORDERABLES Final Res ult [facility] 56- [address] [place], [place] [id number] * (ABNORMAL) DIFFERENTIAL, AUTOMATED (07/24/2024 8:04 AM EST) WBC 3.74(L) 4.00 - 10.80 K/uL 07/24/2024 8:43 AM EST [facility] 56-02 Neutrophils % 67.4 40.0 - 75.0 % 07/24/2024 8:43 AM EST [facility] 56-02 Lymphocytes % 31.8 18.0 - 42.0 [...] MD LAB BLOOD ORDERABLES Final Res ult [facility] 56- [address] [place] [id number] * (ABNORMAL) CBC (07/24/2024 8:04 AM EST) [...] MD LAB BLOOD ORDERABLES Final Res ult [facility] 56- [address] [place] [address] * HCG QUALITATIVE, URINE (07/24/2024 8:04 AM EST) Pathologist [facility] HCG Qualitative, Urine Negative Negative 07/24/2024 9:07 AM [facility] Urine Urine specimen obtained by clean catch procedure / Unknown Non-blood Collection / Unknown 07/24/2024 8:04 AM EST 07/24/2024 9:01 AM EST Kanu Maravilla MD LAB URINE ORDERABLES Final Res ult [facility] 56- [address] [place] [address] * (ABNORMAL) COMPREHENSIVE METABOLIC PANEL (07/24/2024 8:04 [...] LAB BLOOD ORDERABLES Final Res ult [facility] 56-[address] [place] [address] documented in this encounter Visit Diagnoses Diagnosis [...] mL documented in this encounter Care Teams Saute Chef Relationship Specialty Start Date End Date Malinda Owens CRNP [address] [place] [address] PCP - General Nurse Practitioner 09/20/23 documented as of this encounter
--- OUTSIDE RECORDS SUMMARY | 2024-09-05 14:29 | External Medical Summary | Summary of Care ---
Author Name Unknown Organization [facility] Address [address] [place] [address] Phone [phone] Care Team Providers Care Glass Sagger Name Role Phone Roman Malinda DUONG Primary Care Provider [phone] Reason for Visit * Reason Comments Chemotherapy [...] HCL Em Ng MD Hematology/Oncology Treatment, [address] [place] [address] Phone: tel: fax: Referral ID Status Reason Start Date Expiration Date V isits Requested Visits Authorized [id number] Authorized 04/30/2024 06/17/[phone] Encounter Details Date Type Department Care Team (Latest Contact Info) Description 07/17/2024 10:00 AM EST Hem/Onc Treatment Hematology/Oncolog y Treatment, [address] [place] [address] [place] Chair [address] [place] [address] Encounter for antineoplastic chemotherapy*; Malignant neoplasm [...] Enrolled in Current Health. Plans to pick remover meter from pharmacy today. Instructions provided to [...] and class I obesity. Per review of BEAN [facility]INER documentation of 09/25/23, blood glucose values have [...] Recommend nutrition consult with RDN (Registered Dietitian Bee Worker). Lifestyle changes are also indicated including [...] and folate levels and referral to a car painter. If hemoglobin levels are below 8 g/dl, we recommend Maternal Medicine ultrasound for growth every 4 weeks after 24 weeks. Consider a blood transfusion if hemoglobin levels fall below 6 g/dL. ([employer] [facility] Surfacing Machine Operator Practice Bulletin Number 95, December,). [...] money to get more. 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 [...] AM EST Hem/Onc Treatment Hematology/Oncology Treatment, [address] [phone] Chair [place] 7 Hem On[address] [place] [address] 08/07/2024 9:00 AM EST Hem/Onc Treatment Hematology/Oncology Treatment, [address] [address] Chair [place] 7 Hem On[address] [place] [address] 08/28/2024 9:00 AM EDT Nurse Only Hematology/Oncology Treatment, [address] [address] [place], Chair 5 Hem Onc Scene [address] [facility] [place] [address] 08/28/2024 9:30 AM EDT Office Visit Hematology/Oncology [facility] [address] [facility], [place] [phone] Gabby Zavala CRNP [address] [facility] [place] [address] 08/28/2024 10:00 AM EDT Hem/Onc Treatment Hematology/Oncology Treatment, [place] [address] [facility], [place] [address] [place], Chair 7 Hem Onc [facility] [address] [facility] [place], [place] [address] Health Maintenance Due Date Last Done Comments [...] this encounter Medical Devices Implanted Type Area Power Lineworker Device Identifier Shelf Expiration Date Model / Serial / Lot Stent Angulo 4fr 11cm - [id number] Implanted:Qty : 1 on 02/08/2024 by Jeffrey Kerr MD at OR [facility] [id number] 08/16/2028 6546 / / [id number] Port Implant W8f Poly Cath - [id number] Implanted:Qty : 1 on 05/02/2024 by Iam Curry MD at OR [facility] Right: Chest CR BARD : PERIPHERAL VASCULAR [id number] 05/17/2025 [id number] / / [id number] documented as of this encounter Procedures Procedure [...] 10.80 K/uL 07/17/2024 10:52 AM EST [facility] 56-02 Neutrophils % 53.7 40.0 - 75.0 % 07/17/2024 10:52 AM [facility] 56-02 Lymphocytes % 35.5 18.0 - 42.0 % 07/17/2024 10:52 AM [facility] 56-02 Monocytes % 10.5 1.0 - 11.0 % 07/17/2024 10:52 AM [facility] 56-02 Eosinophils % 0.0 0.0 - 6.0 % 07/17/2024 10:52 AM [facility] 56-02 Basophils % 0.3 0.0 - 2.0 % 07/17/2024 10:52 AM [facility] 56-02 Absolute Neutrophils 1.95 1.80 - 7.70 K/uL 07/17/2024 10:52 AM [facility] 56-02 Absolute Lymphocytes 1.29 1.00 - 4.80 K/ul 07/17/2024 10:52 AM [facility] 56-02 Absolute Monocytes 0.38 0.00 - 1.10 K/uL 07/17/2024 10:52 AM [facility] 56-02 Absolute Eosinophils 0.00 0.00 - 0.70 K/uL 07/17/2024 10:52 AM [facility] 56-02 Absolute Basophils 0.01 0.00 - 0.20 K/uL 07/17/2024 10:52 AM [facility] 56-02 Blood Venous blood specimen / Unknown Central Line / Unknown 07/17/2024 10:18 AM EST 07/17/2024 10:48 AM EST us Kanu Maravilla MD LAB BLOOD ORDERABLES Final Res ult [facility] 56-[address] [place] [address] * (ABNORMAL) CBC (07/17/2024 10:18 AM EST) WBC 3.63(L) 4.00 - 10.80 K/uL 07/17/2024 10:52 AM [facility] 56-02 RBC 3.26 3.85 - 5.15 M/uL 07/17/2024 10:52 AM [facility] 56 HGB 11.0(L) 12.0 - 15.3 g/dL 07/17/2024 10:52 AM [facility] 56- HCT 33.7(L) 36.0 - 45.2 % 07/17/2024 10:52 AM [facility] 56- MCV 103.4 81.5 - 97.5 fL 07/17/2024 10:52 AM [facility] 56 MCH 33.7 27.0 - 34.0 pg 07/17/2024 10:52 AM [facility] 56 MCHC 32.6 32.0 - 36.0 g/dL 07/17/2024 10:52 AM [facility] 56- RDW 16.3 11.5 - 15.5 % 07/17/2024 10:52 AM [facility] 56 PLT 194 140 - 400 K/uL 07/17/2024 10:52 AM [facility] 56 MPV 8.7 6.6 - 11.1 fL 07/17/2024 10:52 AM [facility] 56 Blood Venous blood specimen / Unknown Central Line / Unknown 07/17/2024 10:18 AM EST 07/17/2024 10:48 AM EST us Kanu Mraavilla MD LAB BLOOD ORDERABLES Final Res ult [facility] 56- [address] [place] [address] * HCG QUALITATIVE, URINE (07/17/2024 10:18 AM EST) Pathologist [facility] HCG Qualitative, Urine Negative Negative 07/17/2024 11:20 AM [facility] 56-02 Urine Urine specimen obtained by clean catch procedure / Unknown Non-blood Collection / Unknown 07/17/2024 10:18 AM EST 07/17/2024 11:04 AM EST us Kanu Maravilla MD LAB URINE ORDERABLES Final Res ult [address] [place] [address] * (ABNORMAL) COMPREHENSIVE METABOLIC PANEL (07/17/2024 10:18 AM EST) BUN 13 6 - 20 mg/dL 07/17/2024 11:[address] CREATININE 0.8 0.5 - 1.0 mg/dL 07/17/2024 11:[address] EGFR >90 >=60 mL/min 07/17/2024 11:[address] Comment:eGFR is calculated b ased on the CKD-EPI 2020 equation. SODIUM 141 135 - 146 mmol/L 07/17/2024 11:[address] POTASSIUM 4.3 3.5 - 5.1 mmol/L 07/17/2024 11:[address] CHLORIDE 106 98 - 107 mmol/L 07/17/2024 11:[address] CO2 22 22 - 32 mmol/L 07/17/2024 11:[address] ANION GAP 13 7 - 15 mmol/L 07/17/2024 11:[address] GLUCOSE 115 70 - 120 mg/dL 07/17/2024 11:[address] Albumin 4.4 3.8 - 5.0 g/dL 07/17/2024 11:[address] AST <5(L) 10 - 35 U/L 07/17/2024 11:[address] Alkaline Phosphatase 87 35 - 130 U/L 07/17/2024 11:[address] Bilirubin, Total 0.5 <=1.2 mg/dL 07/17/2024 11:[address] CALCIUM 9.7 8.4 - 10.2 mg/dL 07/17/2024 11:[address] Protein 7.4 6.0 - 8.3 g/dL 07/17/2024 11:[address] ALT 17 10 - 35 U/L 07/17/2024 11:13 AM EST [facility] 56-02 Blood Venous blood specimen / Unknown Central Line / Unknown 07/17/2024 10:18 AM EST 07/17/2024 10:48 AM EST us Kanu Maravilla MD LAB BLOOD ORDERABLES Final Res ult [facility] 56-[address] [place] [address] * TSH WITH FREE T4 IF INDICATED (07/17/2024 10:18 AM EST) TSH 0.53 0.27 - 4.20 uIU/mL 07/17/2024 7:24 PM EST [facility] Blood Venous blood specimen / Unknown Central Line / Unknown 07/17/2024 10:18 AM EST 07/17/2024 10:48 AM EST us Mandeep Luna MD LAB BLOOD ORDERABLES Fin al Result [facility] [address] [place] [address] documented in this encounter Visit [...] at 1100, For 1 dose, Restricted per [facility] antiemetic guidelinesIndications:Malig nant neoplasm of upper-outer quadrant [...] documented in this encounter Care Teams Glass Sagger Relationship Specialty Start Date End Date Malinda Owens CRNP [address] [facility] [place] [address] PCP - General Nurse Practitioner 09/20/23 documented as of this encounter
--- OUTSIDE RECORDS SUMMARY | 2024-09-05 14:29 | External Medical Summary | Summary of Care ---
Author Name Unknown Organization [facility] Address [address] [place] [address] Phone [phone] Care Team Providers Care Physician Extender Name Role Phone Roman Malinda DUONG Primary Care Provider [phone] Reason for Visit * Reason Comments Chemotherapy [...] HCL Em Ng MD Hematology/Oncology Treatment, [address] [place] [address] Phone: tel: fax: Referral ID Status Reason Start Date Expiration Date V isits Requested Visits Authorized [id number] Authorized 04/30/2024 06/17/[phone] Encounter Details Date Type Department Care Team (Latest Contact Info) Description 07/17/2024 10:00 AM EST Hem/Onc Treatment Hematology/Oncolog y Treatment, [address] [place] [address] [place] Chair 3 Hem On[address] [place] [address] Encounter for antineoplastic chemotherapy*; Malignant neoplasm [...] Enrolled in Current Health. Plans to picker operator meter from pharmacy today. Instructions [...] and class I obesity. Per review of WIRER HELPER documentation of 09/25/23, blood glucose values have [...] Recommend nutrition consult with RDN (Registered Dietitian Sales Agent [employer]). Lifestyle changes are also indicated including optimizing [...] and folate levels and referral to a breakfast and room attendant. If hemoglobin levels are below 8 g/dl, we recommend Maternal Medicine ultrasound for growth every 4 weeks after 24 weeks. Consider a blood transfusion if hemoglobin levels fall below 6 g/dL. ([employer] Practice Bulletin Number 95, December,). Consider [...] money to get more. 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 * Jaqueline Aernas RN - 07/17/2024 1:05 PM EST Chair [...] 8:45 AM EST Hem/Onc Treatment [address]ematology[address] [phone] Chair [place] [address] Hem On[address] [place] [address] 08/07/2024 9:00 AM EST Hem/Onc Treatment [address]ematology[address], [address] [address] Chair [place] 7 Hem Onc [address] [place] [address] 08/28/2024 9:00 AM EDT Nurse Only Hematology/[address], [address] [address] Park, Chair 5 Hem Onc Scene [address] [facility] [place] [address] 08/28/2024 9:30 AM EDT Office Visit Hematology/Oncology [facility] [address] [facility], [place] [phone] Gabby Zavala CRNP [address] [facility] [place] [address] 08/28/2024 10:00 AM EDT Hem/Onc Treatment Hematology/Oncology Treatment, [place] 200 [facility], [place] [address] [place], Chair 7 Hem Onc [facility] 200 [facility] [place], [place] [address] Health Maintenance Due Date Last Done Comments [...] encounter Medical Devices Implanted Type Area Manager Massage Department Device Identifier Shelf Expiration Date Model / Serial / Lot Stent Angulo 4fr 11cm - [id number] Implanted:Qty : 1 on 02/08/2024 by Jeffrey Kerr MD at OR [facility] [employer] [id number] 08/16/2028 [id number] / / [id number] Port Implant W8f Poly Cath - [id number] Implanted:Qty : 1 on 05/02/2024 by Iam Curry MD at OR [facility] Right: Chest CR BARD : PERIPHERAL VASCULAR [id number] 05/17/2025 [id number] / / [id number] documented as of this encounter Procedures Procedure [...] 10.80 K/uL 07/17/2024 10:52 AM EST [facility] 56-02 Neutrophils % 53.7 40.0 - 75.0 % 07/17/2024 10:52 AM [facility] 56-02 Lymphocytes % 35.5 18.0 - 42.0 % 07/17/2024 10:52 AM [facility] 56-02 Monocytes % 10.5 1.0 - 11.0 % 07/17/2024 10:52 AM [facility] 56-02 Eosinophils % 0.0 0.0 - 6.0 % 07/17/2024 10:52 AM [facility] 56-02 Basophils % 0.3 0.0 - 2.0 % 07/17/2024 10:52 AM [facility] 56-02 Absolute Neutrophils 1.95 1.80 - 7.70 K/uL 07/17/2024 10:52 AM [facility] 56-02 Absolute Lymphocytes 1.29 1.00 - 4.80 K/ul 07/17/2024 10:52 AM [facility] 56-02 Absolute Monocytes 0.38 0.00 - 1.10 K/uL 07/17/2024 10:52 AM [facility] 56-02 Absolute Eosinophils 0.00 0.00 - 0.70 K/uL 07/17/2024 10:52 AM [facility] 56-02 Absolute Basophils 0.01 0.00 - 0.20 K/uL 07/17/2024 10:52 AM [facility] 56-02 Blood Venous blood specimen / Unknown Central Line / Unknown 07/17/2024 10:18 AM EST 07/17/2024 10:48 AM EST us Kanu Maravilla MD LAB BLOOD ORDERABLES Final Res ult [facility] 56-[address] [place] [address] * (ABNORMAL) CBC (07/17/2024 10:18 AM EST) WBC 3.63(L) 4.00 - 10.80 K/uL 07/17/2024 10:52 AM [facility] 56-02 RBC 3.26 3.85 - 5.15 M/uL 07/17/2024 10:52 AM [facility] 56 HGB 11.0(L) 12.0 - 15.3 g/dL 07/17/2024 10:52 AM [facility] 56- HCT 33.7(L) 36.0 - 45.2 % 07/17/2024 10:52 AM [facility] 56- MCV 103.4 81.5 - 97.5 fL 07/17/2024 10:52 AM [facility] 56 MCH 33.7 27.0 - 34.0 pg 07/17/2024 10:52 AM [facility] 56 MCHC 32.6 32.0 - 36.0 g/dL 07/17/2024 10:52 AM [facility] 56- RDW 16.3 11.5 - 15.5 % 07/17/2024 10:52 AM [facility] 56 PLT 194 140 - 400 K/uL 07/17/2024 10:52 AM [facility] 56 MPV 8.7 6.6 - 11.1 fL 07/17/2024 10:52 AM [facility] 56 Blood Venous blood specimen / Unknown Central Line / Unknown 07/17/2024 10:18 AM EST 07/17/2024 10:48 AM EST us Kanu Maravilla MD LAB BLOOD ORDERABLES Final Res ult [facility] 56- [address] [place] [address] * HCG QUALITATIVE, URINE (07/17/2024 10:18 AM EST) Pathologist [facility] [place] HCG Qualitative, Urine Negative Negative 07/17/2024 11:20 AM [facility] 56-02 Urine Urine specimen obtained by clean catch procedure / Unknown Non-blood Collection / Unknown 07/17/2024 10:18 AM EST 07/17/2024 11:04 AM EST us Kanu Maravilla MD LAB URINE ORDERABLES Final Res ult [address] [place] [address] * (ABNORMAL) COMPREHENSIVE METABOLIC PANEL (07/17/2024 10:18 AM EST) BUN 13 6 - 20 mg/dL 07/17/2024 11:[address] CREATININE 0.8 0.5 - 1.0 mg/dL 07/17/2024 11:[address] EGFR >90 >=60 mL/min 07/17/2024 11:[address] Comment:eGFR is calculated b ased on the CKD-EPI 2020 equation. SODIUM 141 135 - 146 mmol/L 07/17/2024 11:[address] POTASSIUM 4.3 3.5 - 5.1 mmol/L 07/17/2024 11:[address] CHLORIDE 106 98 - 107 mmol/L 07/17/2024 11:[address] CO2 22 22 - 32 mmol/L 07/17/2024 11:[address] ANION GAP 13 7 - 15 mmol/L 07/17/2024 11:[address] GLUCOSE 115 70 - 120 mg/dL 07/17/2024 11:[address] Albumin 4.4 3.8 - 5.0 g/dL 07/17/2024 11:[address] AST <5(L) 10 - 35 U/L 07/17/2024 11:[address] Alkaline Phosphatase 87 35 - 130 U/L 07/17/2024 11:[address] Bilirubin, Total 0.5 <=1.2 mg/dL 07/17/2024 11:[address] CALCIUM 9.7 8.4 - 10.2 mg/dL 07/17/2024 11:[address] Protein 7.4 6.0 - 8.3 g/dL 07/17/2024 11:[address] ALT 17 10 - 35 U/L 07/17/2024 11:13 AM EST [facility] 56-02 Blood Venous blood specimen / Unknown Central Line / Unknown 07/17/2024 10:18 AM EST 07/17/2024 10:48 AM EST us Kanu Maravilla MD LAB BLOOD ORDERABLES Final Res ult [facility] 56-[address] [place] [address] * TSH WITH FREE T4 IF INDICATED (07/17/2024 10:18 AM EST) TSH 0.53 0.27 - 4.20 uIU/mL 07/17/2024 7:24 PM EST LABORATORY [facility] Blood Venous blood specimen / Unknown Central Line / Unknown 07/17/2024 10:18 AM EST 07/17/2024 10:48 AM EST us Mandeep Luna MD LAB BLOOD ORDERABLES Fin al Result LABORATORY [facility] [address] [place] [address] documented in this encounter Visit [...] at 1100, For 1 dose, Restricted per [facility] [...] mL documented in this encounter Care Teams Physician Extender Relationship Specialty Start Date End Date Malinda Owens CRNP [address] [facility] [place] [address] PCP - General Nurse Practitioner 09/20/23 documented as of this encounter
--- OUTSIDE RECORDS SUMMARY | 2024-09-05 14:29 | External Medical Summary | Summary of Care ---
Author Name Unknown Organization [facility] Address [address] [place] [address] Phone [phone] Care Team Providers Care Maltster Name Role Phone Roman Malinda DUONG Primary [...] PALONOSETRON HCL Em Ng MD Hematology/Oncology Treatment, [address] [place] [address] Phone: tel: fax: Referral ID Status Reason Start Date Expiration Date V isits Requested Visits Authorized [id number] Authorized 04/30/2024 06/17/[phone] Encounter Details Date Type Department Care Team (Latest Contact Info) Description 07/17/2024 10:00 AM EST Hem/Onc Treatment Hematology/Oncolog y Treatment, [address] [place] [address] [place] Chair 3 Hem On[address] [place] [address] Encounter for antineoplastic chemotherapy*; Malignant neoplasm [...] and class I obesity. Per review of WARD CLERK documentation of 09/25/23, blood glucose values [...] Recommend nutrition consult with RDN (Registered Dietitian Psychological Assistant). Lifestyle changes are also indicated including optimizing [...] and folate levels and referral to a custom harvester. If hemoglobin levels are below 8 g/dl, we recommend Maternal Medicine ultrasound for growth every 4 weeks after 24 weeks. Consider a blood transfusion if hemoglobin levels fall below 6 g/dL. ([employer] Practice Bulletin Number 95, December,). Consider Venofer [...] money to get more. 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 Not [...] 8:45 AM EST Hem/Onc Treatment Hematology/[address]cology [address], [address] [phone] Chair [place] 7 Hem Onc [address] [place] [address] 08/07/2024 9:00 AM EST Hem/Onc Treatment Hematology/[address]cology Treatment, [address] [address] Chair [place] 7 Hem Onc [address] [place] [address] 08/28/2024 9:00 AM EDT Nurse Only Hematology/Oncology Treatment, [address] [address] [place], Chair 5 Hem Onc Scene 200 [facility] [place] [address] 08/28/2024 9:30 AM EDT Office Visit Hematology/Oncology [facility] [address] [facility], [place] [phone] Gabby Zavala CRNP [facility] [place] [facility] [place] [address] 08/28/2024 10:00 AM EDT Hem/Onc Treatment Hematology/Oncology Treatment, [place] 200 [facility], [place] [address] [place], Chair 7 Hem Onc [facility] 200 [facility] [place], [place] [address] Health Maintenance Due Date Last Done Comments [...] this encounter Medical Devices Implanted Type Area Panel Wirer Device Identifier Shelf Expiration Date Model / Serial / Lot Stent Angulo 4fr 11cm - [id number] Implanted:Qty : 1 on 02/08/2024 by Jeffrey Kerr MD at OR [facility] [employer] [id number] 08/16/2028 [id number] / / [id number] Port Implant W8f Poly Cath - [id number] Implanted:Qty : 1 on 05/02/2024 by Iam Curry MD at OR [facility] Right: Chest CR BARD : PERIPHERAL VASCULAR [id number] 05/17/2025 [id number] / / [id number] documented as of this encounter Procedures Procedure [...] 10.80 K/uL 07/17/2024 10:52 AM EST [facility] 56-02 Neutrophils % 53.7 40.0 - 75.0 % 07/17/2024 10:52 AM [facility] 56-02 Lymphocytes % 35.5 18.0 - 42.0 % 07/17/2024 10:52 AM [facility] 56-02 Monocytes % 10.5 1.0 - 11.0 % 07/17/2024 10:52 AM [facility] 56-02 Eosinophils % 0.0 0.0 - 6.0 % 07/17/2024 10:52 AM [facility] 56-02 Basophils % 0.3 0.0 - 2.0 % 07/17/2024 10:52 AM [facility] 56-02 Absolute Neutrophils 1.95 1.80 - 7.70 K/uL 07/17/2024 10:52 AM [facility] 56-02 Absolute Lymphocytes 1.29 1.00 - 4.80 K/ul 07/17/2024 10:52 AM [facility] 56-02 Absolute Monocytes 0.38 0.00 - 1.10 K/uL 07/17/2024 10:52 AM [facility] 56-02 Absolute Eosinophils 0.00 0.00 - 0.70 K/uL 07/17/2024 10:52 AM [facility] 56-02 Absolute Basophils 0.01 0.00 - 0.20 K/uL 07/17/2024 10:52 AM [facility] 56-02 Blood Venous blood specimen / Unknown Central Line / Unknown 07/17/2024 10:18 AM EST 07/17/2024 10:48 AM EST us Kanu Maravilla MD LAB BLOOD ORDERABLES Final Res ult [facility] 56-[address] [place] [address] * (ABNORMAL) CBC (07/17/2024 10:18 AM EST) WBC 3.63(L) 4.00 - 10.80 K/uL 07/17/2024 10:52 AM [facility] 56-02 RBC 3.26 3.85 - 5.15 M/uL 07/17/2024 10:52 AM [facility] 56 HGB 11.0(L) 12.0 - 15.3 g/dL 07/17/2024 10:52 AM [facility] 56- HCT 33.7(L) 36.0 - 45.2 % 07/17/2024 10:52 AM [facility] 56- MCV 103.4 81.5 - 97.5 fL 07/17/2024 10:52 AM [facility] 56 MCH 33.7 27.0 - 34.0 pg 07/17/2024 10:52 AM [facility] 56 MCHC 32.6 32.0 - 36.0 g/dL 07/17/2024 10:52 AM [facility] 56- RDW 16.3 11.5 - 15.5 % 07/17/2024 10:52 AM [facility] 56 PLT 194 140 - 400 K/uL 07/17/2024 10:52 AM [facility] 56 MPV 8.7 6.6 - 11.1 fL 07/17/2024 10:52 AM [facility] 56 Blood Venous blood specimen / Unknown Central Line / Unknown 07/17/2024 10:18 AM EST 07/17/2024 10:48 AM EST us Kanu Maravilla MD LAB BLOOD ORDERABLES Final Res ult [facility] 56- [address] [place] [address] * HCG QUALITATIVE, URINE (07/17/2024 10:18 AM EST) Pathologist [facility] HCG Qualitative, Urine Negative Negative 07/17/2024 11:20 AM [facility] 56-02 Urine Urine specimen obtained by clean catch procedure / Unknown Non-blood Collection / Unknown 07/17/2024 10:18 AM EST 07/17/2024 11:04 AM EST us aKnu Maravilla MD LAB URINE ORDERABLES Final Res ult [address] [place] [address] * (ABNORMAL) COMPREHENSIVE METABOLIC PANEL (07/17/2024 10:18 AM EST) BUN 13 6 - 20 mg/dL 07/17/2024 11:[address] CREATININE 0.8 0.5 - 1.0 mg/dL 07/17/2024 11:[address] EGFR >90 >=60 mL/min 07/17/2024 11:[address] Comment:eGFR is calculated b ased on the CKD-EPI 2020 equation. SODIUM 141 135 - 146 mmol/L 07/17/2024 11:[address] POTASSIUM 4.3 3.5 - 5.1 mmol/L 07/17/2024 11:[address] CHLORIDE 106 98 - 107 mmol/L 07/17/2024 11:[address] CO2 22 22 - 32 mmol/L 07/17/2024 11:[address] ANION GAP 13 7 - 15 mmol/L 07/17/2024 11:[address] GLUCOSE 115 70 - 120 mg/dL 07/17/2024 11:[address] Albumin 4.4 3.8 - 5.0 g/dL 07/17/2024 11:[address] AST <5(L) 10 - 35 U/L 07/17/2024 11:[address] Alkaline Phosphatase 87 35 - 130 U/L 07/17/2024 11:[address] Bilirubin, Total 0.5 <=1.2 mg/dL 07/17/2024 11:[address] CALCIUM 9.7 8.4 - 10.2 mg/dL 07/17/2024 11:[address] Protein 7.4 6.0 - 8.3 g/dL 07/17/2024 11:[address] ALT 17 10 - 35 U/L 07/17/2024 11:13 AM EST [facility] 56-02 Blood Venous blood specimen / Unknown Central Line / Unknown 07/17/2024 10:18 AM EST 07/17/2024 10:48 AM EST us Kanu Maravilla MD LAB BLOOD ORDERABLES Final Res ult [facility] 56-[address] [place] [address] * TSH WITH FREE T4 IF INDICATED (07/17/2024 10:18 AM EST) TSH 0.53 0.27 - 4.20 uIU/mL 07/17/2024 7:24 PM EST LABORATORY [facility] Blood Venous blood specimen / Unknown Central Line / Unknown 07/17/2024 10:18 AM EST 07/17/2024 10:48 AM EST us Mandeep Luna MD LAB BLOOD ORDERABLES Fin al Result LABORATORY [facility] [address] [place] [address] documented in this encounter Visit [...] at 1100, For 1 dose, Restricted per [facility] antiemetic guidelinesIndications:Malig nant neoplasm of upper-outer quadrant [...] mL documented in this encounter Care Teams Maltster Relationship Specialty Start Date End Date Malinda Owens CRNP [address] [facility] [place] [address] PCP - General Nurse Practitioner 09/20/23 documented as of this encounter
--- OUTSIDE RECORDS SUMMARY | 2024-09-05 14:29 | External Medical Summary | Summary of Care ---
Author Name Unknown Organization [facility] Address [address] [facility] [place] [address] Phone [phone] Care Team Providers Care Package Sealer Machine Name Role Phone Malinda Owens Primary Care Provider [phone] Reason for Visit * Reason Comments NEW PATIENT Treatment Encounter Details Date Type Department Care Team (Late st Contact Info) Description 07/24/2024 8:30 AM EST Office Visit Hematology/Oncology [place] Amato [place] [facility] [place] [phone] Kanu Maravilla MD 200 [facility] [place] [address] Malignant neoplasm of upper-outer quadrant of left breast in female, estrogen receptor negative (HCC)*; Suppression of ovarian secretion Allergies No known [...] complete. Enrolled in Current Health. Plans to strip picker meter from pharmacy today. Instructions provided [...] and class I obesity. Per review of POLICE COMMUNICATIONS DISPATCHER documentation of 09/25/23, blood glucose values have [...] Recommend nutrition consult with RDN (Registered Dietitian Document Reviewer). Lifestyle changes are also indicated including optimizing [...] and folate levels and referral to a finance intern. If hemoglobin levels are below 8 g/dl, we recommend Maternal Medicine ultrasound for growth every 4 weeks after 24 weeks. Consider a blood transfusion if hemoglobin levels fall below 6 g/dL. ([employer] [facility] Bulletin Number 95, December,). Consider Venofer [...] money to get more. 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 file Not on file Not on file documented as of this encounter Last Filed Vital Signs Vital Sign Reading Time Taken Comments Blood Pressure 100/71 07/24/2024 8:04 AM EST Pulse 103 07/24/2024 8:04 AM EST Temperature 36.7 C (98.1 F) 07/24/2024 8:04 AM ES T Respiratory Rate - - Oxygen Saturation 97% 07/24/2024 8:04 AM EST Inhaled Oxygen Concentration - - Weight 90.6 kg (199 lb 12.8 oz) 07/24/2024 8:04 AM EST Height 165.1 cm (5' 5") 07/24/2024 8:04 AM EST Body Mass Index 33.25 07/24/2024 8:04 AM EST documented in this encounter Progress Notes * Kanu Maravilla MD - 07/24/2024 8:30 AM EST Hematology/Oncology Outpatient Clinic note Digna Amato [address] [place] [place] [address] NAME: Yuli Gutierrez :1995 29-year-old female, DIAGNOSIS: Left Triple Negative Breast Cancer Cancer Staging Clinical Stage 1 - T2 N0 Genetic Clinic evaluation at [facility], as per the patient she is negative [...] 200 mg every 3 weekly x 9 07/24/2024 --> she is here for phase 1 treatment, cycle # 4 day 8. -Lupron every monthly. DIAGNOSTIC WORKUP: Gable lump in the left breast in 02/2024. [...] special type, grade 3. - ER and AL receptor negative, Her2/trent Negative by IHC. PET-CT [...] clinic for the follow-up, accompanied by her . Currently receiving Keytruda, Paclitaxel and carboplatin, overall tolerated well, some leg cramps lately in both legs, no swelling, no upper extremity edema, no CBCD, good appetite, she had diarrhea, responded well with the Lomotil therapy. Current weight around 199 lb. She is also on Lupron. No bleeding from the sites, no abdominal symptoms. No headache. She denies any increasing tingling and numbness of the extremities. Past Medical History: Diagnosis Date History of gestational diabetes Motion sickness Past Surgical History: Procedure Laterality Date DENTAL SURGERY PROCEDURE NEC Age 12 ERCP, DIAGNOSTIC, SPECIMEN COLLECTION N/A 02/08/2024 choledocholithiasis, complete removal/one plastic pancreatic stent placed into ventral pancreatic duct/ENDOSCOPIC RETROGRADE CHOLANGIOPANCREATOGRAPHY (ERCP) DIAGNOSTIC performed by Jeffrey Kerr MD at OR [facility] INSER TUNN ACC DEV;5 YRS/OLDER Right 05/02/2024 INSERT TUNNELED CENTRAL VENOUS ACCESS WITH SUBQ PORT performed by Iam Curry MD at OR [facility] US GUIDED BREAST BIOPSY LEFT Left 04/15/2024 Current Outpatient Medications Medication Sig Dispense Refill 19 -1 MG Oral Tablet Chewable Take [...] No current facility-administered medications for this visit. 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 LABS: Blood workup done on 07/24/2024: -WBC 3700, Hemoglobin and hematocrit -12.1/36, Platelet count of [id number] -BUN/Creat: 16/0.8, Calcium 9.9, normal liver function test -urine for test --> negative. IMAGING: As described above. ASSESSMENT AND PLAN: 29-year-old, premenopausal female, Left breast triple negative breast cancer, T2 primary tumor, no axilla lymph node involvement PET-CT scan negative for distant metastatic disease. As per the patient, genetic Clinic evaluation done at [facility], it is negative. Currently receiving neoadjuvant chemotherapy with Keynote 522 protocol. Currently she is on phase 1of the treatment, cycle # 4 day 8. (Paclitaxel, carboplatin, Keytruda) Overall she has tolerated well, she had some mild diarrhea responded well with the Lomotil therapy.No new immune mediated side effects. She has some restless leg type of symptoms in the both legs which could be related to the Paclitaxel chemotherapy, no worsening neuropathy symptoms, overall she is doing well. She says that previously palpable left breast mass has reduced in the size. I reviewed her blood workup done today. Will continue with neoadjuvant chemotherapy treatment as we planned, today she will receive Paclitaxel, carboplatin and Keytruda. Next week would be the last treatment for the phase 1 of the treatment and then will proceed with phase 2 treatment week after that. Will continue Lupron every monthly as we planned. We talked about triple negative breast cancer, neoadjuvant treatment option, surgical treatment options, she was seen by 2 surgeons Will see her in about [address] Kanu Maravilla Hem/Onc (This note was [...] Notes * Em Caballero MED ASSIST - 07/24/2024 8:08 AM EST Patient identifed by name and birthdate Do you have any concerns about pain management for today's visit? Yes. Patient instructed to discuss pain concerns with provider during the visit today Living Will or Advance Directive for Health Care as noted on the problem list. [facility] is a way you can talk to your provider on line through e-mail. Would you like to sign up? I can activate it for you? ALREADY ACTIVE Filed Vitals: 07/24/24 0804 BP: 100/71 Pulse: 103 Temp: 36.7 C (98.1 F) TempSrc: Tympanic SpO2: 97% Weight: 90.6 kg (199 lb 12.8 oz) Height: 1.651 m (5' 5") Patient was instructed to not get up [...] 8:45 AM EST Hem/Onc Treatment Hematology/Oncology Treatment, [place] [address] [facility] [phone] Park, Chair 7 [facility] [address] [place] [address] [place] [address] 08/07/2024 8:00 AM EST Nurse Only Hematology/Oncology Treatment, [place] [address] [facility] [phone] Park, Chair 5 Hem Onc Scenery 200 [facility] [place] [address] 08/07/2024 8:30 AM EST Office Visit Hematology/Oncology [facility] [address] [facility] [place], [place] [address] Gabby Zavala CRNP [address] [facility] [place] [address] 08/07/2024 9:00 AM EST Hem/Onc Treatment Hematology/Oncology Treatment, [place] [address] [facility] [address] [place], Chair 7 Hem Onc [facility] [address] [facility] [place], [place] [address] Health Maintenance Due Date Last Done Comments [...] this encounter Medical Devices Implanted Type Area Fibreglass Gun Hand Device Identifier Shelf Expiration Date Model / Serial / Lot Therese Angulo 4fr 11cm - [id number] Implanted:Qty : 1 on 02/08/2024 [facility] [id number] 08/16/2028 [id number] / / [id number] Port Implant W8f Poly Cath - [id number] Implanted:Qty : 1 on 05/02/2024 by Iam Curry MD at OR [facility] Right: Chest CR BARD : PERIPHERAL VASCULAR [id number] 05/17/2025 [id number] / / [id number] documented as of this encounter Visit Diagnoses [...] in female, estrogen receptor negative (HCC)- Primary 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
--- OUTSIDE RECORDS SUMMARY | 2024-09-05 14:30 | External Medical Summary ---
Author Name Unknown Address Unknown Organization K09:[facility] [place] [address] Laboratory Report Ordering Provider Test Date Status JASMINE JANSEN 07/17/2024 10:18:37 Final Observation Date Value Abnormality Reference (Units ) Status BUN 07/17/2024 10:18:37 13 6-20 (mg/dL) Final Creatinine 07/17/2024 10:18:37 0.8 0.5-1.0 (mg/dL) Final Glomerular filtration rate/1.73 sq M.predicted [Volume Rate/Area] in Serum, Plasma or Blood by Creatinine-based formula (CKD-EPI) 07/17/2024 10:18:37 >90 >=60 (mL/min) Final eGFR is calculated based on the CKD-EPI 2020 equation. Sodium 07/17/2024 10:18:37 141 135-146 (m mol/L) Final Potassium 07/17/2024 10:18:37 4.3 3.5-5.1 (m mol/L) Final Cl 07/17/2024 10:18:37 106 98-107 (mm ol/L) Final CO2 07/17/2024 10:18:37 22 22-32 (mmo l/L) Final Anion gap 07/17/2024 10:18:37 13 7-15 (mmol /L) Final Glucose 07/17/2024 10:18:37 115 70-120 (mg /dL) Final Albumin 07/17/2024 10:18:37 4.4 3.8-5.0 (g /dL) Final AST (Aspartate aminotransferase) 07/17/2024 10:18:37 <5 Below low normal 10-35 (U/L) Final Alk Phos 07/17/2024 10:18:37 87 35-130 (U/ L) Final Bilirubin, Total 07/17/2024 10:18:37 0.5 <=1 .2 (mg/dL) Final Calcium 07/17/2024 10:18:37 9.7 8.4-10.2 ( mg/dL) Final Protein 07/17/2024 10:18:37 7.4 6.0-8.3 (g /dL) Final ALT (Alanine aminotransferase) 07/17/2024 10:18:37 17 10-35 (U/L) Clifton [email or web address] Performing Location [facility] [address] [place] [address]
--- OUTSIDE RECORDS SUMMARY | 2024-09-05 14:30 | External Medical Summary ---
Author Name Unknown Address Unknown Organization K09:[facility] [place] [address] Laboratory Report Ordering Provider Test Date Status JASMINE JANSEN 07/17/2024 10:18:37 Final Observation Date Value Abnormality Reference (Units ) Status WBC, Total 07/17/2024 10:18:37 3.63 Below low normal 4. 00-10.80 (K/uL) Final RBC 07/17/2024 10:18:37 3.26 3.85-5.15 (M/uL) Final Hemoglobin 07/17/2024 10:18:37 11.0 Below low normal 12 .0-15.3 (g/dL) Final HCT 07/17/2024 10:18:37 33.7 Below low normal 36. 0-45.2 (%) Final MCV 07/17/2024 10:18:37 103.4 81.5-97.5 (fL) Final MCH 07/17/2024 10:18:37 33.7 27.0-34.0 (pg) Final MCHC 07/17/2024 10:18:37 32.6 32.0-36.0 (g/dL) Final RDW 07/17/2024 10:18:37 16.3 11.5-15.5 (%) Final Platelets 07/17/2024 10:18:37 194 140-400 (K /uL) Final MPV 07/17/2024 10:18:37 8.7 6.6-11.1 ( fL) Final Performing Location [facility] [place] [address]
--- OUTSIDE RECORDS SUMMARY | 2024-09-05 14:30 | External Medical Summary | Summary of Care ---
Author Name Unknown Organization [facility] Address [address] [place] [address] Phone [phone] Care Team Providers Care Open Hearth Stockyard Supervisor Name Role Phone Roman Malinda DUONG Primary Care Provider [phone] Reason for Visit * Reason Comments Chemotherapy C4 D1 Keytruda, Taxo l, Carbo, Lupron * Episode Based Medications (Routine) - Authorized Specialty Diagnoses / Procedures Referred By Bennie t Referred To Contact Diagnoses Malignant neoplasm of upper-outer quadrant of left breast in female, estrogen receptor negative (HCC) Encounter for antineoplastic chemotherapy Encounter for prevention of neutropenia due to chemotherapy Procedures NV DOXORUBIC HCL 10 MG VL CHEMO NV CARBOPLATIN INJECTION NV FOSAPREPITANT INJECTION NV INJ PEMBROLIZUMAB NV INJECTION, FULPHILA NV PACLITAXEL INJECTION NV INJ CYCLOPHOSPHAMD AUROMEDIC NV PALONOSETRON HCL Em Ng MD Hematology/Oncology Treatment, [address] [place] [address] Phone: tel: fax: Referral ID Status Reason Start Date Expiration Date V isits Requested Visits Authorized [id number] Authorized 04/30/2024 07/23/2024 [id number] Encounter Details Date Type Department Care Team (Latest Contact Info) Description 07/17/2024 10:00 AM EST Hem/Onc Treatment Hematology/Oncolog y Treatment, [address] [place] [address] [place] Chair [address] Hem On[address] [place] [address] Encounter for antineoplastic chemotherapy*; Malignant neoplasm of upper-outer quadrant of left breast in female, estrogen receptor negative (HCC); Encounter for prevention of neutropenia due to chemotherapy; Encounter for fertility preservation procedure; Suppression of ovarian secretion Allergies No known active allergiesdocumented as of this encounter (statuses as of 07/17/2024) Medications 19 29-1 MG Oral Tablet Chewable [...] as of this encounter (statuses as of 07/17/2024) Active Problems Problem Noted Date Diagnosed Date [...] Enrolled in Current Health. Plans to pick pack worker meter from pharmacy today. Instructions provided [...] and class I obesity. Per review of HOSPITAL PHARMACY TECHNICIAN documentation of 09/25/23, blood glucose values [...] nutrition consult with RDN (Registered Dietitian Production Aide). Lifestyle changes are also indicated including optimizing [...] and folate levels and referral to a roundhouse worker. If hemoglobin levels are below 8 g/dl, we recommend Maternal Medicine ultrasound for growth every 4 weeks after 24 weeks. Consider a blood transfusion if hemoglobin levels fall below 6 g/dL. ([employer] Tension [employer] [facility] Bulletin Number 95, December,). Consider Venofer [...] as of this encounter (statuses as of 07/17/2024) Resolved Problems Problem Noted Date Diagnosed Date Resolved Date Abnormal glucose tolerance i n mother complicating 04/19/2023 08/31/2023 Overview (04/19/2023): Failed early glucola. 3hr GTT ordered documented as of this encounter (statuses as of 07/17/2024) Immunizations Name Administration Dates Next Due DTP [...] to get more. 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 Not on [...] Nursing Notes * Jaqueline Arenas, RN - 07/17/2024 2:36 PM EST Patient [...] Care Team (Late st Contact Info) Description 07/18/2024 1:00 PM EST Immunization/Injecti on Hematology/Oncology [address], [address] [phone] [place], Chair 11 Hem On[address] [place] [address] 07/24/2024 8:00 AM EST Nurse Only Hematology/Oncology [address], [address] [phone] Park, Chair 5 Hem Onc [address] [place] [address] 07/24/2024 8:30 AM EST Office Visit Hematology/Oncology [address] [place] [phone] Kanu Maravilla MD [address] [place], [place] [address] [address] 07/24/2024 9:30 AM EST Hem/Onc Treatment Hematology/Oncology [address], [address] [phone] [place], Chair 11 Hem Onc Scenery [address] [place] [address] Health Maintenance Due Date Last Done Comments [...] this encounter Medical Devices Implanted Type Area Rf Engineer Device Identifier Shelf Expiration Date Model / Serial / Lot Stent Angulo 4fr 11cm - [id number] Implanted:Qty : 1 on 02/08/2024 by Jeffrey Kerr MD at OR [facility] [employer] [id number] 08/16/2028 [id number] / / [id number] Port Implant W8f Poly Cath - [id number] Implanted:Qty : 1 on 05/02/2024 by Iam Curry MD at OR [facility] Right: Chest CR BARD : PERIPHERAL VASCULAR [id number] 05/17/2025 [id number] / / [id number] documented as of this encounter Procedures Procedure [...] 10.80 K/uL 07/17/2024 10:52 AM EST [facility] Neutrophils % 53.7 40.0 - 75.0 % 07/17/2024 10:52 AM EST [facility] Lymphocytes % 35.5 18.0 - 42.0 % 07/17/2024 10:52 AM EST [facility] Monocytes % 10.5 1.0 - 11.0 % 07/17/2024 10:52 AM EST [facility] Eosinophils % 0.0 0.0 - 6.0 % 07/17/2024 10:52 AM EST [facility] Basophils % 0.3 0.0 - 2.0 % 07/17/2024 10:52 AM EST [facility]-02 Absolute Neutrophils 1.95 1.80 - 7.70 K/uL 07/17/2024 10:52 AM EST [facility] 56-02 Absolute Lymphocytes 1.29 1.00 - 4.80 K/ul 07/17/2024 10:52 AM EST [facility] 56-02 Absolute Monocytes 0.38 0.00 - 1.10 K/uL 07/17/2024 10:52 AM [facility] 56- Absolute Eosinophils 0.00 0.00 - 0.70 K/uL 07/17/2024 10:52 AM [facility] 56- Absolute Basophils 0.01 0.00 - 0.20 K/uL 07/17/2024 10:52 AM [facility] 56- Blood Venous blood specimen / Unknown Central Line / Unknown 07/17/2024 10:18 AM EST 07/17/2024 10:48 AM EST us Kanu Maravilla MD LAB BLOOD ORDERABLES Final Res ult [facility] [address]- [address] [place] [address] * (ABNORMAL) CBC (07/17/2024 10:18 AM EST) WBC 3.63(L) 4.00 - 10.80 K/uL 07/17/2024 10:52 AM [facility] 56- RBC 3.26 3.85 - 5.15 M/uL 07/17/2024 10:52 AM [facility] 56- HGB 11.0(L) 12.0 - 15.3 g/dL 07/17/2024 10:52 AM [facility] 56- HCT 33.7(L) 36.0 - 45.2 % 07/17/2024 10:52 AM [facility] 56- MCV 103.4 81.5 - 97.5 fL 07/17/2024 10:52 AM [facility] 56- MCH 33.7 27.0 - 34.0 pg 07/17/2024 10:52 AM [facility] 56- MCHC 32.6 32.0 - 36.0 g/dL 07/17/2024 10:52 AM [facility] 56- RDW 16.3 11.5 - 15.5 % 07/17/2024 10:52 AM EST [facility] 56- PLT 194 140 - 400 K/uL 07/17/2024 10:52 AM [facility] 56- MPV 8.7 6.6 - 11.1 fL 07/17/2024 10:52 AM EST [facility] 56- Blood Venous blood specimen / Unknown Central Line / Unknown 07/17/2024 10:18 AM EST 07/17/2024 10:48 AM EST Kanu Maravilla MD LAB BLOOD ORDERABLES Final Res ult [address] [place] [address] * HCG QUALITATIVE, URINE (07/17/2024 10:18 AM EST) HCG Qualitative, Urine Negative Negative 07/17/2024 11:[address] Urine Urine specimen obtained by clean catch procedure / Unknown Non-blood Collection / Unknown 07/17/2024 10:18 AM EST 07/17/2024 11:04 AM EST Kanu Maravilla MD LAB URINE ORDERABLES Final Res ult [place] [address] [address] [place] [address] * (ABNORMAL) COMPREHENSIVE METABOLIC PANEL (07/17/2024 10:18 AM EST) BUN 13 6 - 20 mg/dL 07/17/2024 11:13 AM [facility] 56- CREATININE 0.8 0.5 - 1.0 mg/dL 07/17/2024 11:13 AM [facility] 56- EGFR >90 >=60 mL/min 07/17/2024 11:13 AM [facility] 56- Comment:eGFR is calculated b ased on the CKD-EPI 2020 equation. SODIUM 141 135 - 146 mmol/L 07/17/2024 11:13 AM [facility] 56-02 POTASSIUM 4.3 3.5 - 5.1 mmol/L 07/17/2024 11:13 AM [facility] 5602 CHLORIDE 106 98 - 107 mmol/L 07/17/2024 11:13 [address] CO2 22 22 - 32 mmol/L 07/17/2024 11:13 [address] ANION GAP 13 7 - 15 mmol/L 07/17/2024 11:13 AM [address] GLUCOSE 115 70 - 120 mg/dL 07/17/2024 11:[address] Albumin 4.4 3.8 - 5.0 g/dL 07/17/2024 11:13 AM [address] AST <5(L) 10 - 35 U/L 07/17/2024 11:13 [address] Alkaline Phosphatase 87 35 - 130 U/L 07/17/2024 11:13 AM [address] Bilirubin, Total 0.5 <=1.2 mg/dL 07/17/2024 11:13 AM [address] CALCIUM 9.7 8.4 - 10.2 mg/dL 07/17/2024 11:13 AM [address] Protein 7.4 6.0 - 8.3 g/dL 07/17/2024 11:13 [address] ALT 17 10 - 35 U/L 07/17/2024 11:13 AM [address] Blood Venous blood specimen / Unknown Central Line / Unknown 07/17/2024 10:18 AM EST 07/17/2024 10:48 AM EST us Kanu Maravilla MD LAB BLOOD ORDERABLES Final Res ult [address] [place] [address] * TSH WITH FREE T4 IF INDICATED (07/17/2024 10:18 AM EST) TSH 0.53 0.27 - 4.20 uIU/mL 07/17/2024 7:24 PM EST [facility] Blood Venous blood specimen / Unknown Central Line / Unknown 07/17/2024 10:18 AM EST 07/17/2024 10:48 AM EST Mandeep Luna MD LAB BLOOD ORDERABLES Fin al Result [facility] [address] [place] [address] documented in this encounter Visit [...] PROTECT FROM LIGHT, ONCE, 1 dose, On Sun07/17/24 at 1330Indications:Malignant neoplasm of upper-outer quadrant of left breast in female, estrogen receptor negative (HCC),Encounter for antineoplastic chemotherapy,Encounter for prevention of neutropenia due to chemotherapy Start Infusion 07/17/2024 1:45 PM EST 225 mg 510 mL/hr dexAMETHasone (Decadron) tab 12 mg 12 mg, Oral, ONCE, On Sun07/17/24 at 1100, For 1 doseIndications:Malignant neoplasm of [...] Starting on Bibi 07/17/24 at 1025, Until Sun07/17/24 at 1840, For [...] IV Piggyback, ONCE, 1 dose, On Bibi 07/17/24 at 1230, Administer over 60 Minutes, Administer through 0.22 micron low protein binding filter!Indications:Malignan t neoplasm of upper-outer quadrant of left breast in female, estrogen receptor negative (HCC),Encounter for antineoplastic chemotherapy,Encounter for prevention of neutropenia due to chemotherapy Start Infusion 07/17/2024 12:43 PM EST 165 mg 255 mL/hr Palonosetron (Aloxi) inj SOLN 0.25 mg 0.25 mg, IV Push, ONCE, On Bibi 07/17/24 at 1100, For 1 dose, Restricted per [facility] antiemetic guidelinesIndications:Jess christie neoplasm of upper-outer quadrant of left breast in female, estrogen receptor negative (HCC),Encounter for antineoplastic chemotherapy,Encounter for prevention of neutropenia due to chemotherapy Given 07/17/2024 11:55 AM EST 0.25 mg Pembrolizumab (Keytruda) 200 mg in NSS 100 mL infusion 200 mg, IV Piggyback, ONCE, 1 dose, On Bibi 07/17/24 at 1200, Administer over 30 Minutes, Infuse [...] mL documented in this encounter Care Teams Open Hearth Stockyard Supervisor Relationship Specialty Start Date End Date Malinda Owens CRNP [address] [place] [address] PCP - General Nurse Practitioner 09/20/23 documented as of this encounter
--- OUTSIDE RECORDS SUMMARY | 2024-09-05 14:30 | External Medical Summary ---
Author Name Unknown Address Unknown Organization K01:[facility] [address] [facility] [address] Laboratory Report Ordering Provider Test Date Status LISE JAVIER 07/17/2024 10:18:37 Final Observation Date Value Abnormality Reference (Units ) Status TSH 07/17/2024 10:18:37 0.53 0.27-4.20 (uIU/mL) Final Performing Location [facility] [address] [facility] [address] [facility] [address]
--- OUTSIDE RECORDS SUMMARY | 2024-09-05 14:30 | External Medical Summary | Summary of Care ---
Author Name Unknown Organization [facility] Address [address] [place] [facility] [place] [address] Phone [phone] Care Team Providers Care Zyglo Inspector Name Role Phone Malinda Owens Primary Care Provider [phone] Reason for Visit * Reason Comments Medication Administration Lupron * Episode Based Medications (Routine) - Authorized Specialty Diagnoses / Procedures Referred By Contac t Referred To Contact Diagnoses Malignant neoplasm of upper-outer quadrant of left breast in female, estrogen receptor negative (HCC) Encounter for fertility preservation procedure Suppression of ovarian secretion Procedures CT LEUPROLIDE ACETATE /3.75 MG Em Ng MD Hematology/Oncology Treatment, [address] [address] Phone: tel: fax: Referral ID Status Reason Start Date Expiration Date V isits Requested Visits Authorized [id number] Authorized 05/08/2024 06/16/2099 [id number] Encounter Details Date Type Department Care Team (Latest Contact Info) Description 07/18/2024 1:00 PM EST Immunization/I njection Hematology/Oncology Treatment, [address] [address] [place], Chair [address] [address] Malignant neoplasm of upper-outer quadrant of left breast in female, estrogen receptor negative (HCC)*; Encounter for fertility preservation procedure; Suppression of ovarian secretion Allergies No known active allergiesdocumented as of this encounter (statuses as of 07/18/2024) Medications 29-1 MG Oral Tablet Chewable Take [...] as of this encounter (statuses as of 07/18/2024) Active Problems Problem Noted Date Diagnosed Date [...] and class I obesity. Per review of SAP PI ARCHITECT documentation of 09/25/23, blood glucose values have [...] Recommend nutrition consult with RDN (Registered Dietitian Zone Maintenance Technician). Lifestyle changes are also indicated including [...] and folate levels and referral to a manager clinical applications. If hemoglobin levels are below 8 g/dl, we recommend Maternal Medicine ultrasound for growth every 4 weeks after 24 weeks. Consider a blood transfusion if hemoglobin levels fall below 6 g/dL. ([employer] Practice Bulletin Number 95, December,). Consider Venofer [...] as of this encounter (statuses as of 07/18/2024) Resolved Problems Problem Noted Date Diagnosed Date Resolved Date Abnormal glucose tolerance i n mother complicating 04/19/2023 08/31/2023 Overview (04/19/2023): Failed early glucola. 3hr GTT ordered documented as of this encounter (statuses as of 07/18/2024) Immunizations Name Administration Dates Next Due DTP [...] money to get more. Never true 03/26/2024 [place] Depression Scale Answer Date Recorded [place] Depression Scale Total 6 12/11/2023 The thought [...] No 03/26/2024 Does the household have a [facility] hospit[facility] source of income? 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 on file Not on file [...] 8:00 AM EST Nurse Only Hematology/Oncology Treatment, [place] [address] [facility] [address] [place] [address] [place], Chair [address] Hem On[address] [place] [address] 07/24/2024 8:30 AM EST Office Visit Hematology/Oncology [facility] [place] [address] [place] [phone] Kanu Maravilla MD [address] [facility] [place] [address] 07/24/2024 9:30 AM EST Hem/Onc Treatment Hematology/Oncology Treatment, [place] [address] [place], [place] [address] [place], Chair 11 Hem Onc Scenery [address] [place] [address] Health Maintenance Due Date Last Done Comments [...] this encounter Medical Devices Implanted Type Area Right Of Way Manager Device Identifier Shelf Expiration Date Model / Serial / Lot Stent Angulo 4fr 11cm - [id number] Implanted:Qty : 1 on 02/08/2024 by Jeffrey Kerr MD at OR [facility] [employer] [id number] 08/16/2028 [id number] / / [id number] Port Implant W8f Poly Cath - [id number] Implanted:Qty : 1 on 05/02/2024 by Iam Curry MD at OR [facility] Right: Chest CR BARD : PERIPHERAL VASCULAR [id number] 05/17/2025 [id number] / / [id number] documented as of this encounter Visit Diagnoses [...] Left documented in this encounter Care Teams Zyglo Inspector Relationship Specialty Start Date End Date Malinda Owens CRNP [address] [address] PCP - General Nurse Practitioner 09/20/23 documented as of this encounter
--- OUTSIDE RECORDS SUMMARY | 2024-09-05 14:30 | External Medical Summary | Summary of Care ---
Author Name Unknown Organization [facility] Address [address] [place] [address] Phone [phone] Care Team Providers Care Scaleman Name Role Phone Roman Malinda DUONG Primary Care Provider [phone] Reason for Visit * Reason Comments Chemotherapy C4 D1 Keytruda, Taxo l, Carbo, Lupron * Episode Based Medications (Routine) - Authorized Specialty Diagnoses / Procedures Referred By Bennie t Referred To Contact Diagnoses Malignant neoplasm of upper-outer quadrant of left breast in female, estrogen receptor negative (HCC) Encounter for antineoplastic chemotherapy Encounter for prevention of neutropenia due to chemotherapy Procedures VA DOXORUBIC HCL 10 MG VL CHEMO VA CARBOPLATIN INJECTION VA FOSAPREPITANT INJECTION VA INJ PEMBROLIZUMAB VA INJECTION, FULPHILA VA PACLITAXEL INJECTION VA INJ CYCLOPHOSPHAMD AUROMEDIC VA PALONOSETRON HCL Em Ng MD Hematology/Oncology Treatment, [address] [place] [address] Phone: tel: fax: Referral ID Status Reason Start Date Expiration Date V isits Requested Visits Authorized [id number] Authorized 04/30/2024 07/23/2024 [id number] Encounter Details Date Type Department Care Team (Latest Contact Info) Description 07/17/2024 10:00 AM EST Hem/Onc Treatment Hematology/Oncolog y Treatment, [address] [place] [address] [place] Chair [address] [place] [address] Encounter for antineoplastic chemotherapy*; Malignant neoplasm [...] in Current Health. Plans to picker and packer meter from pharmacy today. Instructions provided [...] and class I obesity. Per review of INTERNET ARCHITECT documentation of 09/25/23, blood glucose values [...] Recommend nutrition consult with RDN (Registered Dietitian Pipeline Operator). Lifestyle changes are also indicated including [...] and folate levels and referral to a blending plant operator. If hemoglobin levels are below 8 g/dl, we recommend Maternal Medicine ultrasound for growth every 4 weeks after 24 weeks. Consider a blood transfusion if hemoglobin levels fall below 6 g/dL. ([employer] Practice Bulletin Number 95, December,). Consider Venofer [...] money to get more. 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 Not [...] 1:00 PM EST Immunization/Injecti on Hematology/[address]cology [address], [address] [phone] [place], Chair [address] Hem On[address] [place] [address] 07/24/2024 8:00 AM EST Nurse Only Hematology/Oncology [address], [address] [phone] [place], Chair 5 Hem On[address] [place] [address] 07/24/2024 8:30 AM EST Office Visit Hematology/Oncology [address] [place] [phone] Kanu Maravilla MD [address] [place], [place] [address] 07/24/2024 9:30 AM EST Hem/Onc Treatment Hematology/Oncology [address], [address] [phone] [place], Chair 11 Hem Onc [address] [place] [address] Health Maintenance Due Date Last Done Comments [...] this encounter Medical Devices Implanted Type Area Per Diem Physical Therapist Assistant Device Identifier Shelf Expiration Date Model / Serial / Lot Stent Angulo 4fr 11cm - [id number] Implanted:Qty : 1 on 02/08/2024 by Jeffrey Kerr MD at OR [facility] [employer] [id number] 08/16/2028 [id number] / / [id number] Port Implant W8f Poly Cath - [id number] Implanted:Qty : 1 on 05/02/2024 by Iam Curry MD at OR [facility] Right: Chest CR BARD : PERIPHERAL VASCULAR [id number] 05/17/2025 [id number] / / [id number] documented as of this encounter Procedures Procedure [...] 2.0 % 07/17/2024 10:52 AM EST [facility] 56-02 Absolute Neutrophils 1.95 1.80 - 7.70 K/uL 07/17/2024 10:52 AM EST [facility] 56-02 Absolute Lymphocytes 1.29 1.00 - 4.80 K/ul 07/17/2024 10:52 AM EST [facility] 56-02 Absolute Monocytes 0.38 0.00 - [...] [facility] 56- [address] [place] [address] * (ABNORMAL) CBC (07/17/2024 10:18 AM EST) [...] - 15.5 % 07/17/2024 10:52 AM EST [facility] 56- PLT 194 140 - 400 K/uL 07/17/2024 10:52 AM [facility] 56- MPV 8.7 6.6 - 11.1 fL 07/17/2024 10:52 AM EST [facility] 56- Blood Venous blood specimen / Unknown Central Line / Unknown 07/17/2024 10:18 AM EST 07/17/2024 10:48 AM EST Kanu Maravilla MD LAB BLOOD ORDERABLES Final Res ult [address] [place] [address] * HCG QUALITATIVE, URINE (07/17/2024 10:18 AM EST) HCG Qualitative, Urine Negative Negative 07/17/2024 11:[address] Urine Urine specimen obtained by clean catch procedure / Unknown Non-blood Collection / Unknown 07/17/2024 10:18 AM EST 07/17/2024 11:04 AM EST Kanu Maravilla MD LAB URINE ORDERABLES Final Res ult [place] [address] [address] [place] [address] * (ABNORMAL) COMPREHENSIVE METABOLIC PANEL (07/17/2024 10:18 [...] 98 - 107 mmol/L 07/17/2024 11:[address] CO2 22 22 - 32 mmol/L 07/17/2024 11:[address] ANION GAP 13 7 - 15 mmol/L 07/17/2024 11:[address] GLUCOSE 115 70 - 120 mg/dL 07/17/2024 11:[address] Albumin 4.4 3.8 - 5.0 g/dL 07/17/2024 11:[address] AST <5(L) 10 - 35 U/L 07/17/2024 11:[address] Alkaline Phosphatase 87 35 - 130 U/L 07/17/2024 11:[address] Bilirubin, Total 0.5 <=1.2 mg/dL 07/17/2024 11:[address] CALCIUM 9.7 8.4 - 10.2 mg/dL 07/17/2024 11:[address] Protein 7.4 6.0 - 8.3 g/dL 07/17/2024 11:[address] ALT 17 10 - 35 U/L 07/17/2024 11:13 [address] Blood Venous blood specimen / Unknown Central Line / Unknown 07/17/2024 10:18 AM EST 07/17/2024 10:48 AM EST us Kanu Maravilla MD LAB BLOOD ORDERABLES Final Res ult [address] [place] [address] * TSH WITH FREE T4 IF INDICATED (07/17/2024 10:18 AM EST) TSH 0.53 0.27 - 4.20 uIU/mL 07/17/2024 7:24 PM EST [facility] Blood Venous blood specimen / Unknown Central Line / Unknown 07/17/2024 10:18 AM EST 07/17/2024 10:48 AM EST Mandeep Luna MD LAB BLOOD ORDERABLES Fin al Result [facility] [address] [place] [address] documented in this encounter Visit [...] at 1100, For 1 dose, Restricted per [facility] antiemetic guidelinesIndications:Jess christie neoplasm of upper-outer [...] mL documented in this encounter Care Teams Scaleman Relationship Specialty Start Date End Date Malinda Owens CRNP [address] [address] PCP - General Nurse Practitioner 09/20/23 documented as of this encounter
--- OUTSIDE RECORDS SUMMARY | 2024-09-05 14:30 | External Medical Summary ---
Author Name Unknown Address Unknown Organization K09[facility] [place] [id number] Laboratory Report Ordering Provider Test Date Status JASMINE JANSEN 07/24/2024 08:04:00 Final Observation Date Value Abnormality Reference (Units ) Status Nucleated erythrocytes/100 leukocytes [Ratio] in Blood by Automated count 07/24/2024 08:04:00 Final Variant lymphocytes [Presence] in Blood by Light microscopy 07/24/2024 08:04:00 Present Abnormal None Seen Final Performing Location [facility] [place] [address]
--- OUTSIDE RECORDS SUMMARY | 2024-09-05 14:30 | External Medical Summary | Summary of Care ---
Author Name Unknown Organization [facility] Address [address] [place] [address] Phone [phone] Care Team Providers Care Electrical Equipment Assembler Name Role Phone Malinda Owens Primary Care Provider [phone] Reason for Visit * Reason Comments Chemotherapy [...] PALONOSETRON HCL Em Ng MD Hematology/Oncology Treatment, [address] [address] Phone: tel: fax: Referral ID Status Reason Start Date Expiration Date V isits Requested Visits Authorized [id number] Authorized 04/30/2024 07/23/2024 [id number] Encounter Details Date Type Department Care Team (Latest Contact Info) Description 07/03/2024 9:15 AM EST Hem/Onc Treatment Hematology/Oncolog y Treatment, [address] [place] [address] L[place] Chair 4 Hem Onc [address] [place] [address] Encounter for antineoplastic chemotherapy*; Malignant neoplasm of upper-outer quadrant of left breast in female, estrogen receptor negative (HCC); Encounter for prevention of neutropenia due to chemotherapy Allergies No known active allergiesdocumented as of this encounter (statuses as of 07/03/2024) Medications 19 29-1 MG Oral Tablet Chewable [...] as of this encounter (statuses as of 07/03/2024) Active Problems Problem Noted Date Diagnosed Date [...] complete. Enrolled in Current Health. 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 Instructions provided [...] and class I obesity. Per review of PACKAGING CLERK documentation of 09/25/23, blood glucose values [...] nutrition consult with RDN (Registered Dietitian Sales Record Clerk). Lifestyle changes are also indicated including optimizing [...] and folate levels and referral to a lead manufacturing engineer. If hemoglobin levels are below 8 g/dl, we recommend Maternal Medicine ultrasound for growth every 4 weeks after 24 weeks. Consider a blood transfusion if hemoglobin levels fall below 6 g/dL. ([employer] Bulletin Number 95, December,). Consider Venofer [...] as of this encounter (statuses as of 07/03/2024) Resolved Problems Problem Noted Date Diagnosed Date Resolved Date Abnormal glucose tolerance i n mother complicating 04/19/2023 08/31/2023 Overview (04/19/2023): Failed early glucola. 3hr GTT ordered documented as of this encounter (statuses as of 07/03/2024) Immunizations Name Administration Dates Next Due DTP [...] money to get more. 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 Maravilla. Yee will be pushed back to 07/17 when [...] Readings from Last 2 Encounters: 07/03/24 96% 07/01/24 95% Temp Readings from Last 2 Encounters: [...] Care Team (Late st Contact Info) Description 07/17/2024 10:00 AM EST Hem/Onc Treatment Hematology/Oncology Treatment, [place] [address] [place] [phone] [place] Chair 3 Hem [facility] [address] [address] 07/24/2024 8:00 AM EST Nurse Only Hematology/Oncology Treatment, [place] [address] [facility] [place] [phone] L[place], Chair 5 Hem Onc [address] [place] [address] 07/24/2024 8:30 AM EST Office Visit Hematology/Oncology [address] [place] [phone] Kanu Maravilla MD 200 [place] [address] 07/24/2024 9:30 AM EST Hem/Onc Treatment Hematology/Oncology Treatment, [place] [address] [facility] [place] [phone] L[place], Chair 11 Hem Onc [address] [place] [address] Health Maintenance Due Date Last Done Comments [...] this encounter Medical Devices Implanted Type Area Non Food Receiving Clerk Device Identifier Shelf Expiration Date Model / Serial / Lot Stent Kev montes de ocar 11cm - [id number] Implanted:Qty : 1 on 02/08/2024 by Jeffrey Kerr MD at OR [facility] [employer] [id number] 08/16/2028 [id number] / / [id number] Port Implant W8f Poly Cath - [id number] Implanted:Qty : 1 on 05/02/2024 by Iam Curry MD at OR [facility] Right: Chest CR BARD : PERIPHERAL VASCULAR [id number] 05/17/2025 [id number] / / [id number] documented as of this encounter Procedures Procedure [...] DIFFERENTIAL, TECHNOLOGIST REVIEW (07/03/2024 9:37 AM EST) nRBCs 07/03/2024 10:01 AM [facility] 56-02 Reactive Lymphocytes Present(A ) None Seen 07/03/2024 10:01 AM [facility] 56-02 Blood Venous blood specimen / Unknown Venipuncture / Unknown 07/03/2024 9:37 AM EST 07/03/2024 9:45 AM EST Kanu Maravilla MD LAB BLOOD ORDERABLES Final Res ult [facility] 56-[address] [place] [address] * (ABNORMAL) DIFFERENTIAL, AUTOMATED (07/03/2024 9:37 AM EST) [facility] WBC 3.54(L) 4.00 - 10.80 K/uL 07/03/2024 10:01 AM [facility] 56-02 Neutrophils % 57.1 40.0 - 75.0 % 07/03/2024 10:01 AM [facility] 56-02 Lymphocytes % 36.7 18.0 - 42.0 % 07/03/2024 10:01 AM [facility] 56-02 Monocytes % 5.9 1.0 - 11.0 % 07/03/2024 10:01 AM [facility] 56-02 Eosinophils % 0.0 0.0 - 6.0 % 07/03/2024 10:01 AM [facility] 56-02 Basophils % 0.3 0.0 - 2.0 % 07/03/2024 10:01 AM [facility] 56-02 Absolute Neutrophils 2.02 1.80 - 7.70 K/uL 07/03/2024 10:01 AM [facility] 56-02 Absolute Lymphocytes 1.30 1.00 - 4.80 K/ul 07/03/2024 10:01 AM [facility] 56-02 Absolute Monocytes 0.21 0.00 - 1.10 K/uL 07/03/2024 10:01 AM [facility] 56-02 Absolute Eosinophils 0.00 0.00 - 0.70 K/uL 07/03/2024 10:01 AM [facility] 56-02 Absolute Basophils 0.01 0.00 - 0.20 K/uL 07/03/2024 10:01 AM [facility] 56-02 Blood Venous blood specimen / Unknown Venipuncture / Unknown 07/03/2024 9:37 AM EST 07/03/2024 9:45 AM EST us Kanu Maravilla MD LAB BLOOD ORDERABLES Final Res ult [facility] 56-[address] [place], [place] [id number] * (ABNORMAL) CBC (07/03/2024 9:37 AM EST) WBC 3.54(L) 4.00 - 10.80 K/uL 07/03/2024 10:01 AM [facility] 56- RBC 3.21 3.85 - 5.15 M/uL 07/03/2024 10:01 AM [facility] 56-02 HGB 10.5(L) 12.0 - 15.3 g/dL 07/03/2024 10:01 AM [facility] 56- HCT 31.7(L) 36.0 - 45.2 % 07/03/2024 10:01 AM [facility] 56-02 MCV 98.8 81.5 - 97.5 fL 07/03/2024 10:01 AM [facility] 56-02 MCH 32.7 27.0 - 34.0 pg 07/03/2024 10:01 AM [facility] 56-02 MCHC 33.1 32.0 - 36.0 g/dL 07/03/2024 10:01 AM [facility] 56-02 RDW 13.3 11.5 - 15.5 % 07/03/2024 10:01 AM [facility] 56-02 PLT 178 140 - 400 K/uL 07/03/2024 10:01 AM [facility] 56-02 MPV 9.1 6.6 - 11.1 fL 07/03/2024 10:01 AM [facility] 56-02 Blood Venous blood specimen / Unknown Venipuncture / Unknown 07/03/2024 9:37 AM EST 07/03/2024 9:45 AM EST us Kanu Maravilla MD LAB BLOOD ORDERABLES Final Res ult [facility] 56 [address] [place] [address] * HCG QUALITATIVE, URINE (07/03/2024 9:37 AM EST) HCG Qualitative, Urine Negative Negative 07/03/2024 9:51 AM EST [address] Urine Urine specimen obtained by clean catch procedure / Unknown Non-blood Collection / Unknown 07/03/2024 9:37 AM EST 07/03/2024 9:45 AM EST us Kanu Maravilla MD LAB URINE ORDERABLES Final Res ult Performing Organization Address City/[facility]/ZIP Co de Phone Number [address] [place] [address] * (ABNORMAL) COMPREHENSIVE METABOLIC PANEL (07/03/2024 9:37 AM EST) BUN 12 6 - 20 mg/dL 07/03/2024 10:[address] CREATININE 0.7 0.5 - 1.0 mg/dL 07/03/2024 10:[address] EGFR >90 >=60 mL/min 07/03/2024 10:07 AM [facility] 56 Comment:eGFR is calculated b ased on the CKD-EPI 2020 equation. SODIUM 140 135 - 146 mmol/L 07/03/2024 10:07 AM [facility] 56- POTASSIUM 3.9 3.5 - 5.1 mmol/L 07/03/2024 10:07 AM [facility] 56- CHLORIDE 105 98 - 107 mmol/L 07/03/2024 10:07 AM [facility] 56- CO2 20(L) 22 - 32 mmol/L 07/03/2024 10:07 AM [facility] 56 ANION GAP 15 7 - 15 mmol/L 07/03/2024 10:07 AM [facility] 56- GLUCOSE 141(H) 70 - 120 mg/dL 07/03/2024 10:07 AM [facility] 56-02 Albumin 4.3 3.8 - 5.0 g/dL 07/03/2024 10:07 AM [facility] 56-02 AST 15 10 - 35 U/L 07/03/2024 10:07 AM [facility] 56- Alkaline Phosphatase 83 35 - 130 U/L 07/03/2024 10:07 AM [facility] 56-02 Bilirubin, Total 0.4 <=1.2 mg/dL 07/03/2024 10:07 AM [facility] 56- CALCIUM 9.3 8.4 - 10.2 mg/dL 07/03/2024 10:07 AM [facility] 56-02 Protein 7.1 6.0 - 8.3 g/dL 07/03/2024 10:07 AM [facility] 56- ALT 14 10 - 35 U/L 07/03/2024 10:07 AM [facility] 5602 Blood Venous blood specimen / Unknown Venipuncture / Unknown 07/03/2024 9:37 AM EST 07/03/2024 9:45 AM EST Kanu Maravilla MD LAB BLOOD ORDERABLES Final Res ult [facility] 56- [address] [place] [address] documented in this encounter Visit Diagnoses Diagnosis [...] chemotherapy documented in this encounter Administered Medications Active Administered Medications - up to 3 most recent administrations Medication Order MAR Action Action Date Dose Rate Site diphenhydrAMINE (Benadryl) inj 50 mg 50 mg, IV Push, ONCE PRN Other, Hypersensitivity Reaction, Starting on Sun07/03/24 at 1015, Until Sun07/04/24 at 1014, For 24 hoursIndications:Malignant neoplasm of upper-outer quadrant of left breast in female, estrogen receptor negative (HCC),Encounter for antineoplastic chemotherapy,Encounter for prevention of neutropenia due to chemotherapy EPINEPHrine 1 MG/ML inj 0.3 mg 0.3 mg, Intramuscular, ONCE PRN Other, Hypersensitivity Reaction or Anaphylaxis, Starting on Sun07/03/24 at 1015, Until Sun07/04/24 at 1014, For 24 hoursIndications:Malignant neoplasm of upper-outer quadrant of left breast in female, estrogen receptor negative (HCC),Encounter for antineoplastic chemotherapy,Encounter for prevention of neutropenia due to chemotherapy hEParin 100 UNIT/ML Lock Flush inj 500 Units 500 Units (5 mL), IV Lock, PRN Other, IV Flush, Starting on Sun07/03/24 at 1015, Until Sun07/04/24 at 1014, For 24 hours, Do not flush if lock, PICC, or central line not in place; IV infusing or unable to flush.Indications:Malignant neoplasm of upper-outer quadrant of left breast in female, estrogen receptor negative (HCC),Encounter for antineoplastic chemotherapy,Encounter for prevention of neutropenia due to chemotherapy Given 07/03/2024 12:41 PM EST 500 Units Hydrocortisone Sod Suc (PF) (Solu-Cortef) inj 100 mg 100 mg, IV Push, ONCE PRN Other, Hypersensitivity Reaction, Starting on Sun07/03/24 at 1015, Until Sun07/04/24 at 1014, For 24 hoursIndications:Malignant neoplasm of upper-outer quadrant of left breast in female, estrogen receptor negative (HCC),Encounter for antineoplastic chemotherapy,Encounter for prevention of neutropenia due to chemotherapy LORAzepam (Ativan) tab 0.5 mg 0.5 mg, Oral, ONCE PRN Anxiety, Nausea, Starting on Sun07/03/24 at 1130, Until DiscontinuedIndications:Nancy gnant neoplasm of upper-outer quadrant of left breast in female, estrogen receptor negative (HCC),Encounter for antineoplastic chemotherapy,Encounter for prevention of neutropenia due to chemotherapy meperidine (Demerol) 25 MG/ML inj 25 mg 25 mg, Intramuscular, ONCE PRN Shivering, Chills/Rigors from acute infusion reaction, Starting on Sun07/03/24 at 1015, Until Sun07/04/24 at 1014, For 24 hoursIndications:Malignant neoplasm of upper-outer quadrant of left breast in female, estrogen receptor negative (HCC),Encounter for antineoplastic chemotherapy,Encounter for prevention of neutropenia due to chemotherapy NSS infusion Intravenous, at 50 mL/hr, PRN, Starting on Sun07/03/24 at 1130, Until Discontinued, Maintenance lineIndications:Malignant neoplasm of upper-outer quadrant of left breast in female, estrogen receptor negative (HCC),Encounter for antineoplastic chemotherapy,Encounter for prevention of neutropenia due to chemotherapy Start Infusion 07/03/2024 10:23 AM EST 50 mL/hr oxygen GAS Inhalation, OXYGEN, First dose on Sun07/03/24 at 1100, Until Discontinued, Device/Managed by: Low [...] saturation is greater than or equal to 93%Indications:Malignant neoplasm of upper-outer quadrant of left breast in female, estrogen receptor negative (HCC),Encounter for antineoplastic chemotherapy,Encounter for prevention of neutropenia due to chemotherapy sodium chloride 0.9 % flush central line 10 mL 10 mL, IV Push, PRN Other, IV Flush, Starting on Sun07/03/24 at 1015, Until Sun07/04/24 at 1014, For 24 hours, Do not flush if lock, PICC, or central line not in place; IV infusing or unable to flush.Indications:Malignant neoplasm of upper-outer quadrant of left breast in female, estrogen receptor negative (HCC),Encounter for antineoplastic chemotherapy,Encounter for prevention of neutropenia due to chemotherapy Given 07/03/2024 12:41 PM EST 10 mL Inactive Administered Medications - up to 3 most recent administrations Medication Order MAR Action Action Date Dose Rate Site CARBOplatin (Paraplatin) 225 mg in D5W 250 mL infusion 225 mg (Target AUC = 1.5), IV Piggyback, at 510 mL/hr Administer over 30 Minutes, PROTECT FROM LIGHT, ONCE, 1 dose, On Sun07/03/24 at 1330Indications:Malignant neoplasm of upper-outer quadrant of [...] mg 20 mg, IV Push, ONCE, On Sun07/03/24 at 1100, For 1 dose, Give IV push over 2 minutes.Indications:Malignan t neoplasm of upper-outer quadrant of left breast in female, estrogen receptor negative (HCC),Encounter for antineoplastic chemotherapy,Encounter for prevention of neutropenia due to chemotherapy Given 07/03/2024 10:28 AM EST 20 mg PACLitaxel (Taxol) 165 mg in NSS 250 [...] 0.25 mg, IV Push, ONCE, On Bibi 07/03/24 at 1100, For 1 dose, Restricted per [facility] antiemetic guidelinesIndications:Malign ant neoplasm of upper-outer quadrant of left breast in female, estrogen receptor negative (HCC),Encounter for antineoplastic chemotherapy,Encounter for prevention of neutropenia due to chemotherapy Given 07/03/2024 10:28 AM EST 0.25 mg documented in this encounter Care Teams Electrical Equipment Assembler Relationship Specialty Start Date End Date Malinda Owens CRNP [address] [place] [address] PCP - General Nurse Practitioner 09/20/23 documented as of this encounter
--- OUTSIDE RECORDS SUMMARY | 2024-09-05 14:30 | External Medical Summary | Summary of Care ---
Author Name Unknown Organization [facility] Address [address] [facility] [place] [address] Phone [phone] Care Team Providers Care Firmware Software Verification Engineer Name Role Phone Roman Ridgemargaret AD Primary Care Provider [phone] Encounter Details Date Type Department Care Team (Late st Contact Info) Description 07/11/2024 Orders Only PATIENT PORTAL DO NOT DELETE THIS DEPT USED BY [place] [id number] Allergies No known active allergiesdocumented as of this encounter (statuses as of 07/11/2024) Medications 29-1 MG Oral Tablet Chewable Take by mouth. Activ e Famotidine 20 MG Oral Tablet (Pepcid)Indication s:Malignant neoplasm of upper-outer quadrant of left breast in female, estrogen receptor negative (HCC),Encounter for antineoplastic chemotherapy,Encou nter for prevention of neutropenia due to chemotherapy Take by mouth 1 Tablet 12 hours prior to paclitaxel infusion. Do not start before May 06, 2024. 12 Tablet 05/06/20 Active Additional Information Patient not taking.Reported on 05/02/2024 Prochlorperazine Maleate 10 MG Oral Tablet (Compazine)Indicat ions:Malignant neoplasm of upper-outer quadrant of left breast in female, estrogen receptor negative (HCC),Encounter for antineoplastic chemotherapy,Encou nter for prevention of neutropenia due to chemotherapy Take 1 Tablet by mouth every 6 hours as needed for Nausea. Do not start before May 06, 2024. 30 Tablet 5 05/06/20 Active Lidocaine-Prilocai ne 2.5-2.5 % External Cream [...] Oral Tablet (Decadron)Indicati ons:Encounter for antineoplastic chemotherapy,Jess alfredtalat neoplasm of upper-outer quadrant of left breast [...] as of this encounter (statuses as of 07/11/2024) Active Problems Problem Noted Date Diagnosed Date [...] MFM ADAPT consult complete. Enrolled in Current [place]. Plans to pickling drum operator meter from [...] and class I obesity. Per review of ENVIRONMENTAL FIELD TEAM MEMBER documentation of 09/25/23, blood glucose values have [...] Recommend nutrition consult with RDN (Registered Dietitian Agronomy Teacher). Lifestyle changes are also indicated including [...] and folate levels and referral to a journeyman pipe welder. If hemoglobin levels are below 8 g/dl, we recommend Maternal Medicine ultrasound for growth every 4 weeks after 24 weeks. Consider a blood transfusion if hemoglobin levels fall below 6 g/dL. ([employer] [facility] Bulletin Number 95, December,). Consider Venofer [...] as of this encounter (statuses as of 07/11/2024) Resolved Problems Problem Noted Date Diagnosed Date Resolved Date Abnormal glucose tolerance i n mother complicating 04/19/2023 08/31/2023 Overview (04/19/2023): Failed early glucola. 3hr GTT ordered documented as of this encounter (statuses as of 07/11/2024) Immunizations Name Administration Dates Next Due DTP [...] the money to buy more. Never true 10/09/20 24 Within the past 12 months, t he food you bought just didn't last and you didn't have money to get more. Never true 03/26/2024 [place] Depression Scale Answer Date Recorded [place] Depression Scale Total 6 12/11/2023 The thought [...] No 03/26/2024 Does the household have a [facility] mexicolar source of income? 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 Not on file Not on file documented as of this encounter Plan of Treatment Upcoming Encounters Date Type Department Care Team (Late st Contact Info) Description 07/17/2024 10:00 AM EST Hem/Onc Treatment Hematology/Oncology Treatment, [address] [place] [phone] iLma, Chair [address] [place], [place] [address] 07/24/2024 8:00 AM EST Nurse Only Hematology/Oncology Treatment, [place] [address] [place] [phone] [place], Chair 5 Hem Onc [address] [place] [address] 07/24/2024 8:30 AM EST Office Visit Hematology/Oncology [address], [place] [phone] Kanu Maravilla MD [address] [facility], [place] [address] 07/24/2024 9:30 AM EST Hem/Onc Treatment Hematology/Oncology Treatment, [address], [place] [phone] [place], Chair 11 Hem Onc [address] [place] [address] Health Maintenance Due Date Last Done Comments [...] this encounter Medical Devices Implanted Type Area Chart Collector Device Identifier Shelf Expiration Date Model / Serial / Lot Stent Angulo 4fr 11cm - [id number] Implanted:Qty : 1 on 02/08/2024 by Jeffrey Kerr MD at OR [facility] [employer] [id number] 08/16/2028 [id number] / / [id number] Port Implant W8f Poly Cath - [id number] Implanted:Qty : 1 on 05/02/2024 by Iam Curry MD at OR [facility] Right: Chest CR BARD : PERIPHERAL VASCULAR [id number] 05/17/2025 [id number] / / [id number] documented as of this encounter Care Teams Firmware Software Verification Engineer Relationship Specialty Start Date End Date Malinda Owens CRNP [address] [place] [address] PCP - General Nurse Practitioner 09/20/23 documented as of this encounter
--- OUTSIDE RECORDS SUMMARY | 2024-09-05 14:30 | External Medical Summary ---
Author Name Unknown Address Unknown Organization K09:[facility] [place] [address] Laboratory Report Ordering Provider Test Date Status JASMINE JANSEN 07/24/2024 08:04:00 Final Observation Date Value Abnormality Reference (Units ) Status Screen, Urine 07/24/2024 08:04:00 Negative Negative Final Performing Location [facility] [place] [address]
--- OUTSIDE RECORDS SUMMARY | 2024-09-05 14:30 | External Medical Summary ---
Author Name Unknown Address Unknown Organization K09:[facility] [address] Laboratory Report Ordering Provider Test Date Status JASMINE JANSEN 07/24/2024 08:04:00 Final Observation Date Value Abnormality Reference (Units ) Status WBC, Total 07/24/2024 08:04:00 3.74 Below low normal 4. 00-10.80 (K/uL) Final RBC 07/24/2024 08:04:00 3.58 3.85-5.15 (M/uL) Final Hemoglobin 07/24/2024 08:04:00 12.1 12.0-15.3 (g/dL) Final HCT 07/24/2024 08:04:00 36.0 36.0-45.2 (%) Final MCV 07/24/2024 08:04:00 100.6 81.5-97.5 (fL) Final MCH 07/24/2024 08:04:00 33.8 27.0-34.0 (pg) Final MCHC 07/24/2024 08:04:00 33.6 32.0-36.0 (g/dL) Final RDW 07/24/2024 08:04:00 15.0 11.5-15.5 (%) Final Platelets 07/24/2024 08:04:00 188 140-400 (K /uL) Final MPV 07/24/2024 08:04:00 9.5 6.6-11.1 ( fL) Final Performing Location [facility] [place] [address]
--- OUTSIDE RECORDS SUMMARY | 2024-09-05 14:30 | External Medical Summary ---
Author Name Unknown Address Unknown Organization K09:[facility] [place] [address] Laboratory Report Ordering Provider Test Date Status INDERJITFERRARO 07/17/2024 10:18:37 Final Observation Date Value Abnormality Reference (Units ) Status Screen, Urine 07/17/2024 10:18:37 Negative Negative Final Performing Location [facility] [place] [address]
--- OUTSIDE RECORDS SUMMARY | 2024-09-05 14:30 | External Medical Summary ---
Author Name Unknown Address Unknown Organization K09:[facility] [address] [place] [address] Laboratory Report Ordering Provider Test Date Status JASMINE JANSEN 07/24/2024 08:04:00 Final Observation Date Value Abnormality Reference (Units ) Status SYNC LEUKOCYTES IN BLOOD BY AUTOMATED COUNT 07/24/2024 08:04:00 3.74 Below low normal 4.00-10.80 (K/uL) Final Segs 07/24/2024 08:04:00 67.4 40.0-75.0 (%) Final Lymphs % 07/24/2024 08:04:00 31.8 18.0-42.0 (%) Final Monos 07/24/2024 08:04:00 0.8 Below low normal 1.0-11.0 (%) Final Eosinophils 07/24/2024 08:04:00 0.0 0.0-6.0 (%) Final Basos 07/24/2024 08:04:00 0.0 0.0-2.0 (%) Final Absolute Segs 07/24/2024 08:04:00 2.52 1.80-7.70 (K/uL) Final Lymphs, absolute 07/24/2024 08:04:00 1.19 1.00-4.80 (K/ul) Final Monos, Abs 07/24/2024 08:04:00 0.03 0.00-1.10 (K/uL) Final Eos, Abs 07/24/2024 08:04:00 0.00 0.00-0.70 (K/uL) Final Basos, Abs 07/24/2024 08:04:00 0.00 0.00-0.20 (K/uL) Final Performing Location [facility] [place] [address]
--- OUTSIDE RECORDS SUMMARY | 2024-09-05 14:30 | External Medical Summary ---
Author Name Unknown Address Unknown Organization K09:[facility] 56-[address] [place] [address] Laboratory Report Ordering Provider Test Date Status JASMINE JANSEN 07/24/2024 08:04:00 Final Observation Date Value Abnormality Reference (Units ) Status BUN 07/24/2024 08:04:00 16 6-20 (mg/dL) Final Creatinine 07/24/2024 08:04:00 0.8 0.5-1.0 (mg/dL) Final Glomerular filtration rate/1.73 sq M.predicted [Volume Rate/Area] in Serum, Plasma or Blood by Creatinine-based formula (CKD-EPI) 07/24/2024 08:04:00 >90 >=60 (mL/min) Final eGFR is calculated based on the CKD-EPI 2020 equation. Sodium 07/24/2024 08:04:00 139 135-146 (m mol/L) Final Potassium 07/24/2024 08:04:00 4.2 3.5-5.1 (m mol/L) Final Cl 07/24/2024 08:04:00 102 98-107 (mm ol/L) Final CO2 07/24/2024 08:04:00 21 Below low normal 22- 32 (mmol/L) Final Anion gap 07/24/2024 08:04:00 16 Above high normal 7- 15 (mmol/L) Final Glucose 07/24/2024 08:04:00 199 Above high normal 70 -120 (mg/dL) Final Albumin 07/24/2024 08:04:00 4.6 3.8-5.0 (g /dL) Final AST (Aspartate aminotransferase) 07/24/2024 08:04:00 17 10-35 (U/L) Fin al Alk Phos 07/24/2024 08:04:00 89 35-130 (U/ L) Final Bilirubin, Total 07/24/2024 08:04:00 0.5 <=1 .2 (mg/dL) Final Calcium 07/24/2024 08:04:00 9.9 8.4-10.2 ( mg/dL) Final Protein 07/24/2024 08:04:00 7.8 6.0-8.3 (g /dL) Final ALT (Alanine aminotransferase) 07/24/2024 08:04:00 18 10-35 (U/L) Clifton [email or web address] Performing Location [facility] [address] [place] [address]
--- OUTSIDE RECORDS SUMMARY | 2024-09-05 14:30 | External Medical Summary ---
Author Name Unknown Address Unknown Organization K09:[facility] [place] [address] Laboratory Report Ordering Provider Test Date Status JASMINE JANSEN 07/17/2024 10:18:37 Final Observation Date Value Abnormality Reference (Units ) Status SYNC LEUKOCYTES IN BLOOD BY AUTOMATED COUNT 07/17/2024 10:18:37 3.63 Below low normal 4.00-10.80 (K/uL) Final Segs 07/17/2024 10:18:37 53.7 40.0-75.0 (%) Final Lymphs % 07/17/2024 10:18:37 35.5 18.0-42.0 (%) Final Monos 07/17/2024 10:18:37 10.5 1.0-11.0 (%) Final Eosinophils 07/17/2024 10:18:37 0.0 0.0-6.0 (%) Final Basos 07/17/2024 10:18:37 0.3 0.0-2.0 (%) Final Absolute Segs 07/17/2024 10:18:37 1.95 1.80-7.70 (K/uL) Final Lymphs, absolute 07/17/2024 10:18:37 1.29 1.00-4.80 (K/ul) Final Monos, Abs 07/17/2024 10:18:37 0.38 0.00-1.10 (K/uL) Final Eos, Abs 07/17/2024 10:18:37 0.00 0.00-0.70 (K/uL) Final Basos, Abs 07/17/2024 10:18:37 0.01 0.00-0.20 (K/uL) Final Performing Location [facility] [address] [place] [address]
--- OUTSIDE RECORDS SUMMARY | 2024-09-05 14:31 | External Medical Summary | Summary of Care ---
Author Name Unknown Organization [facility] Address [address] [place] [address] Phone [phone] Care Team Providers Care Synchronous Motor Assembler Name Role Phone Malinda Owens Primary Care Provider [phone] Reason for Visit * Reason Comments Outpatient Testing Encounter Details Date Type Department Care Team (Late st Contact Info) Description 07/01/2024 9:10 AM EST Laboratory Laboratory [facility] [address] [place] [id number] [facility] 200 [facility] [place] [address] Dysuria Allergies No known active allergiesdocumented as of this encounter (statuses as of 07/01/2024) Medications 29-1 MG Oral Tablet Chewable Take [...] Nausea. 30 Tablet 3 06/26/19 25 Active documented as of this encounter (statuses as of 07/01/2024) Active Problems Problem Noted Date Diagnosed Date [...] and class I obesity. Per review of FENCE GATE ASSEMBLER documentation of 09/25/23, blood glucose values [...] Recommend nutrition consult with RDN (Registered Dietitian Operater). Lifestyle changes are also indicated including optimizing [...] folate levels and referral to a director of program management. If hemoglobin levels are below 8 g/dl, we recommend Maternal Medicine ultrasound for growth every 4 weeks after 24 weeks. Consider a blood transfusion if hemoglobin levels fall below 6 g/dL. ([employer] Practice Bulletin Number 95, December,). Consider [...] as of this encounter (statuses as of 07/01/2024) Resolved Problems Problem Noted Date Diagnosed Date Resolved Date Abnormal glucose tolerance i n mother complicating 04/19/2023 08/31/2023 Overview (04/19/2023): Failed early glucola. 3hr GTT ordered documented as of this encounter (statuses as of 07/01/2024) Immunizations Name Administration Dates Next Due DTP [...] money to get more. Never true 03/26/2024 [place] Depression Scale Answer Date Recorded [place] Depression Scale Total 6 12/11/2023 The thought [...] No 03/26/2024 Does the household have a [facility] source of income? 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 Not on file Not on file documented as of this encounter Plan of Treatment Upcoming Encounters Date Type Department Care Team (Late st Contact Info) Description 07/01/2024 2:00 PM EST Hem/Onc Treatment Hematology/Oncology Treatment, [place] [address] [place] [address] [place], Chair 11 Hem Onc Scene [address] [place] [address] 07/03/2024 8:30 AM EST [facility] [address] [place] [address] Park, Lab Scenery [address] [place] [address] 07/03/2024 9:15 AM EST [facility] 200 [facility] [place] [address] Park, Chair 4 Hem Onc Scenery [address] [place] [address] 07/17/2024 9:00 AM EST Laboratory Laboratory Scenery [facility] [address] [place] [address] [place], Lab Scenery [address] [place], [place] [address] 07/17/2024 10:00 AM EST [facility] 200 [facility], [place] [address] [place], Chair 3 Hem Onc Scenery [address] [place] [address] 07/24/2024 7:50 AM EST Laboratory Laboratory [facility] [address] [place], [place] [address] [place], Lab Scenery [address] [place] [address] 07/24/2024 8:30 AM EST Office Visit Hematology/Oncology Scen[facility] [address] [place] [address] Kanu Maravilla MD [address] [place] [address] 07/24/2024 9:30 AM EST [facility] [address] [place] [facility] [address] [place], Chair 11 Hem Onc Scenery [address] [place] [address] 08/06/2024 9:00 AM EST Telemedicine Genetics HemOnc, [facility] [address] [place] [address] Estephania Reyes, MS [address] [place] [address] Pending Results Name Type Priority Associated Diagnoses Date /Time URINALYSIS, REFLEX TO MICROSCOPIC Lab Routine Dysuria 07/01/2024 9:11 AM EST CULTURE, URINE, QUANTITATIVE Lab Routine Dysuria 07/01/2024 9:11 AM EST Health Maintenance Due Date Last [...] this encounter Medical Devices Implanted Type Area Software Test Engineer Device Identifier Shelf Expiration Date Model / Serial / Lot Therese Angulo 4fr 11cm - [id number] Implanted:Qty : 1 on 02/08/2024 [facility] [id number] 08/16/2028 [id number] / / [id number] Port Implant W8f Poly Cath - [id number] Implanted:Qty : 1 on 05/02/2024 by Iam Curry MD at OR [facility] Right: Chest CR BARD : PERIPHERAL VASCULAR [id number] 05/17/2025 [id number] / / [id number] documented as of this encounter Visit Diagnoses [...] of , antepartum, single or unspecified fetus Dysuria documented in this encounter Care Teams Synchronous Motor Assembler Relationship Specialty Start Date End Date Malinda Owens CRNP [address] [facility] [place] [address] PCP - General Nurse Practitioner 09/20/23 documented as of this encounter
--- OUTSIDE RECORDS SUMMARY | 2024-09-05 14:31 | External Medical Summary ---
Author Name Unknown Address Unknown Organization K09:[facility] [address] [place] [address] Laboratory Report Ordering Provider Test Date Status JASMINE JANSEN 07/03/2024 09:37:44 Final Observation Date Value Abnormality Reference (Units ) Status BUN 07/03/2024 09:37:44 12 6-20 (mg/dL) Final Creatinine 07/03/2024 09:37:44 0.7 0.5-1.0 (mg/dL) Final Glomerular filtration rate/1.73 sq M.predicted [Volume Rate/Area] in Serum, Plasma or Blood by Creatinine-based formula (CKD-EPI) 07/03/2024 09:37:44 >90 >=60 (mL/min) Final eGFR is calculated based on the CKD-EPI 2020 equation. Sodium 07/03/2024 09:37:44 140 135-146 (m mol/L) Final Potassium 07/03/2024 09:37:44 3.9 3.5-5.1 (m mol/L) Final Cl 07/03/2024 09:37:44 105 98-107 (mm ol/L) Final CO2 07/03/2024 09:37:44 20 Below low normal 22- 32 (mmol/L) Final Anion gap 07/03/2024 09:37:44 15 7-15 (mmol /L) Final Glucose 07/03/2024 09:37:44 141 Above high normal 70 -120 (mg/dL) Final Albumin 07/03/2024 09:37:44 4.3 3.8-5.0 (g /dL) Final AST (Aspartate aminotransferase) 07/03/2024 09:37:44 15 10-35 (U/L) Fin al Alk Phos 07/03/2024 09:37:44 83 35-130 (U/ L) Final Bilirubin, Total 07/03/2024 09:37:44 0.4 <=1 .2 (mg/dL) Final Calcium 07/03/2024 09:37:44 9.3 8.4-10.2 ( mg/dL) Final Protein 07/03/2024 09:37:44 7.1 6.0-8.3 (g /dL) Final ALT (Alanine aminotransferase) 07/03/2024 09:37:44 14 10-35 (U/L) [facility]if[place] [email or web address] Performing Location [facility] [address] [place] [address]
--- OUTSIDE RECORDS SUMMARY | 2024-09-05 14:31 | External Medical Summary ---
Author Name Unknown Address Unknown Organization K09:[facility] [place] [address] Laboratory Report Ordering Provider Test Date Status JASMINE JANSEN 07/03/2024 09:37:44 Final Observation Date Value Abnormality Reference (Units ) Status Screen, Urine 07/03/2024 09:37:44 Negative Negative Final Performing Location [facility] [place] [address]
--- OUTSIDE RECORDS SUMMARY | 2024-09-05 14:31 | External Medical Summary | Summary of Care ---
Author Name Unknown Organization [facility] Address [address] [place] [address] Phone [phone] Care Team Providers Care Retort Firer Name Role Phone Owens Ridgemargaret AD Primary Care Provider [phone] Reason for Visit * Reason Onset Date Comments Advice 07/02/2024 Maravilla Encounter Details Date Type Department Care Team (Late st Contact Info) Description 07/02/2024 Refill Hematology/Oncology [facility] [address] 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 Per review of AIR AND WATER FILLER documentation of 09/25/23, blood glucose values have [...] Recommend nutrition consult with RDN (Registered Dietitian Heat Curer). Lifestyle changes are also indicated including optimizing [...] and folate levels and referral to a oil pipeline operator. If hemoglobin levels are below 8 g/dl, we recommend Maternal Medicine ultrasound for growth every 4 weeks after 24 weeks. Consider a blood transfusion if hemoglobin levels fall below 6 g/dL. ([employer] Small Lot [employer] Practice Bulletin Number 95, December,). Consider [...] as of this encounter (statuses as of 07/02/2024) Resolved Problems Problem Noted Date Diagnosed Date Resolved Date Abnormal glucose tolerance i n mother complicating 04/19/2023 08/31/2023 Overview (04/19/2023): Failed early glucola. 3hr GTT ordered documented as of this encounter (statuses as of 07/02/2024) Immunizations Name Administration Dates Next Due DTP [...] money to get more. Never true 03/26/2024 [place] Depression Scale Answer Date Recorded [place] Depression Scale Total 6 12/11/2023 The [...] No 03/26/2024 Does the household have a [facility] source of income? 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 After meals..Authorizing Provider: INDERJIT MARAVILLA * Telephone Encounter - Laron Emerson RN - 07/02/2024 12:20 PM EST Called patient, she is aware of the script and that Pyridium may change her urine orange/red in color. * Telephone Encounter - Inderjit Maravilla MD - 07/02/2024 12:18 PM EST E-prescribed Pyridium. * Telephone Encounter - Laron Emerson RN - 07/02/2024 10:44 AM EST Spoke with Dr. Maravilla- will prescribe Pyridium. Per Up-To-Date - "Give 200mg oral 3 times a day for 2 days" Pended script. * Telephone Encounter - Laron Emerson RN - 07/02/2024 10:28 AM EST Called patient, her energy has improved with the hydration yesterday, is aware that she doesn't have a UTI currently. She continues to have dysuria and bladder spasms. Dr. Maravilla - please advise, is there something we can prescribe to help with cystitis symptoms? Pt is to have treatment tomorrow. * Telephone Encounter - Kinsey Nugent OSA - 07/02/2024 10:10 AM EST Taiwo pt Yuli Gutierrez Pt is calling asking to speak with you regarding a message she received. She said it's easier to explain to you. Are you avail? Can you please call Yuli back at [phone] Yuli stated that she has tx tomorrow and needs a resolution today! Thank you! documented in this encounter Plan of Treatment Upcoming Encounters Date Type Department Care Team (Late st Contact Info) Description 07/03/2024 9:15 AM EST Hem/Onc Treatment Hematology/Oncology Treatment, [address], [place] [phone] [place], Chair 4 Hem Onc Scenery [address] [place] [address] [place], [place] [address] 07/17/2024 10:00 AM EST Hem/Onc Treatment Hematology/Oncology Treatment, [address], [place] [address] [place], Chair 3 Hem Onc Scenery [address] [place] [address] [place], [place] [address] 07/24/2024 8:00 AM EST Nurse Only Hematology/Oncology Treatment, [address], [place] [address] Park, Chair 5 Hem Onc Scenery 200 [facility] [place], [place] [address] 07/24/2024 8:30 AM EST Office Visit Hematology/Oncology [address], [place] [address] Inderjit Maravilla MD [address] [facility], [place] [address] 07/24/2024 9:30 AM EST Hem/Onc Treatment Hematology/Oncology Treatment, [address], [place] [address] [place], Chair 11 Hem Onc Scenery [address] [place] [address], [place] [address] Health Maintenance Due Date Last Done Comments [...] this encounter Medical Devices Implanted Type Area Python Java Developer Device Identifier Shelf Expiration Date Model / Serial / Lot Stent Angulo 4fr 11cm - [id number] Implanted:Qty : 1 on 02/08/2024 by Jeffrey Kerr MD at OR [facility] [employer] [id number] 08/16/2028 [id number] / / [id number] Port Implant W8f Poly Cath - [id number] Implanted:Qty : 1 on 05/02/2024 by Iam Curry MD at OR [facility] Right: Chest CR BARD : PERIPHERAL VASCULAR [id number] 05/17/2025 [id number] / / [id number] documented as of this encounter Visit Diagnoses [...] of , antepartum, single or unspecified fetus Dysuria- Primary documented in this encounter Care Teams Retort Firer Relationship Specialty Start Date End Date Malinda Owens CRNP [address] [place] [address] PCP - General Nurse Practitioner 09/20/23 documented as of this encounter
--- OUTSIDE RECORDS SUMMARY | 2024-09-05 14:31 | External Medical Summary ---
Author Name Unknown Address Unknown Organization K09:[facility] [address] Laboratory Report Ordering Provider Test Date Status JASMINE JANSEN 07/03/2024 09:37:44 Final Observation Date Value Abnormality Reference (Units ) Status WBC, Total 07/03/2024 09:37:44 3.54 Below low normal 4. 00-10.80 (K/uL) Final RBC 07/03/2024 09:37:44 3.21 3.85-5.15 (M/uL) Final Hemoglobin 07/03/2024 09:37:44 10.5 Below low normal 12 .0-15.3 (g/dL) Final HCT 07/03/2024 09:37:44 31.7 Below low normal 36. 0-45.2 (%) Final MCV 07/03/2024 09:37:44 98.8 81.5-97.5 (fL) Final MCH 07/03/2024 09:37:44 32.7 27.0-34.0 (pg) Final MCHC 07/03/2024 09:37:44 33.1 32.0-36.0 (g/dL) Final RDW 07/03/2024 09:37:44 13.3 11.5-15.5 (%) Final Platelets 07/03/2024 09:37:44 178 140-400 (K /uL) Final MPV 07/03/2024 09:37:44 9.1 6.6-11.1 ( fL) Final Performing Location [facility] [address]
--- OUTSIDE RECORDS SUMMARY | 2024-09-05 14:31 | External Medical Summary | Summary of Care ---
Author Name Unknown Organization [facility] Address [address] [place] [facility] [place] [address] Phone [phone] Care Team Providers Care Insurance Case Manager Name Role Phone Malinda Owens Primary Care Provider [phone] Reason for Visit * Reason Comments Medication Administration IV hydration Encounter Details Date Type Department Care Team (Latest Contact Info) Description 07/01/2024 2:00 PM EST Hem/Onc Treatment Hematology/Oncology Treatment, [address] [phone] [place], Chair 11 Hem On[address] [address] Dehydration*; Malignant neoplasm of upper-outer quadrant of left breast in female, estrogen receptor negative (HCC) Allergies No known active allergiesdocumented as of this encounter (statuses as of 07/01/2024) Medications 19 29-1 MG Oral Tablet Chewable [...] complete. Enrolled in Current Health. Plans to peanut picker meter from pharmacy today. Instructions provided [...] and class I obesity. Per review of SOFTWARE ENGINEER documentation of 09/25/23, blood glucose values [...] Recommend nutrition consult with RDN (Registered Dietitian Bilingual Interpreter). Lifestyle changes are also indicated including optimizing [...] and folate levels and referral to a firer glost kiln. If hemoglobin levels are below 8 g/dl, we recommend Maternal Medicine ultrasound for growth every 4 weeks after 24 weeks. Consider a blood transfusion if hemoglobin levels fall below 6 g/dL. ([employer] [facility] [employer] Practice Bulletin Number 95, December,). Consider Venofer [...] money to get more. 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 Patient's ANC 0.65. Patient denies fever and any other s/s infection. Instructed patient to call with any concerns of infection or fever. Will recheck labs with treatment later this week. Infusion complete. Patient tolerated well. VAD with + blood return, flushed with [...] stable condition. * Marilyn Burnett RN - 07/01/2024 2:42 PM EST Patient here for IV hydration. Patient states that she has had diarrhea and urinary frequency. Patient states that she is feeling better today compared to over the weekend. States she had diarrhea X1this morning. She has been eating. Urinalysis was done this morning. VAD accessed without difficulty, + blood return noted, flushed with 10 ml NSS. Waste tube drawn andlabs drawn, flushed with 10 ml NSS and dressing [...] 9:15 AM EST Hem/Onc Treatment Hematology/Oncology Treatment, [place] [address] [place] [phone] [place], Chair 4 Hem Onc Scenery [address] [facility] [place] [address] 07/17/2024 10:00 AM EST Hem/Onc Treatment Hematology/Oncology Treatment, [address] [place] [phone] [place], Chair 3 Hem Onc Scenery [address] [facility] [place] [address] 07/24/2024 8:00 AM EST Nurse Only Hematology/Oncology Treatment, [address] [place] [phone] [place], Chair 5 Hem Onc Scenery [address] [facility] [place], [place] [address] 07/24/2024 8:30 AM EST Office Visit Hematology/Oncology [facility] [address] [facility] [place], [place] [phone] Kanu Maravilla MD 200 [facility], [place] [address] 07/24/2024 9:30 AM EST Hem/Onc Treatment Hematology/Oncology Treatment, [address], [place] [phone] [place], Chair 11 Hem Onc Scenery [address] [facility] [place] [address] 08/06/2024 9:00 AM EST Telemedicine Genetics HemOnc, [facility] [address] [place] [address] Estephania Reyes, MS [address] [place] [address] Health Maintenance Due Date Last Done Comments [...] this encounter Medical Devices Implanted Type Area Ruby Rails Developer Device Identifier Shelf Expiration Date Model / Serial / Lot Stent Angulo 4fr 11cm - [id number] Implanted:Qty : 1 on 02/08/2024 by Jeffrey Kerr MD at OR [facility] [employer] [id number] 08/16/2028 [id number] / / [id number] Port Implant W8f Poly Cath - [id number] Implanted:Qty : 1 on 05/02/2024 by Iam Curry MD at OR [facility] Right: Chest CR BARD : PERIPHERAL VASCULAR [id number] 05/17/2025 [id number] / / [id number] documented as of this encounter Procedures Procedure Name Priority Date/Time Associated Diagnosis Comments DIFFERENTIAL, AUTOMATED STAT 07/01/2024 2:25 PM EST Malignant neoplasm of upper-outer quadrant of left breast in female, estrogen receptor negative (HCC) COMPREHENSIVE METABOLIC PANEL STAT 07/01/2024 2:25 PM EST Malignant neoplasm of upper-outer quadrant of left breast in female, estrogen receptor negative (HCC) CBC STAT 07/01/2024 2:25 PM EST Malignant neoplasm of upper-outer quadrant of left breast in female, estrogen receptor negative (HCC) CBC STAT 07/01/2024 2:25 PM EST Malignant neoplasm of upper-outer quadrant of left breast in female, estrogen receptor negative (HCC) DIFFERENTIAL, TECHNOLOGIST REVIEW Routine 07/01/2024 2:25 PM EST Malignant neoplasm of upper-outer quadrant of left breast in female, estrogen receptor negative (HCC) MAGNESIUM STAT 07/01/2024 2:25 PM EST Dehydration documented in this encounter Results * (ABNORMAL) DIFFERENTIAL, TECHNOLOGIST REVIEW (07/01/2024 2:25 PM EST) nRBCs 07/01/2024 2:47 PM EST [facility] 56-02 Reactive Lymphocytes Present(A ) None Seen 07/01/2024 2:47 PM EST [facility] 56-02 Blood Venous blood specimen / Unknown Central Line / Unknown 07/01/2024 2:25 PM EST 07/01/2024 2:30 PM EST us Kanu Maravilla MD LAB BLOOD ORDERABLES Final Res ult [facility] 56- [address] [place] [address] * (ABNORMAL) DIFFERENTIAL, AUTOMATED (07/01/2024 2:25 PM EST) WBC 2.41(L) 4.00 - 10.80 K/uL 07/01/2024 2:47 PM EST [facility] 56-02 Neutrophils % 26.9(L) 40.0 - 75.0 % 07/01/2024 2:47 PM EST [facility] 56-02 Lymphocytes % 60.2(H) 18.0 - 42.0 % 07/01/2024 2:47 PM EST [facility] 56-02 Monocytes % 10.8 1.0 - 11.0 % 07/01/2024 2:47 PM EST [facility] 56- Eosinophils % 1.7 0.0 - 6.0 % 07/01/2024 2:47 PM EST [facility] 56- Basophils % 0.4 0.0 - 2.0 % 07/01/2024 2:47 PM EST [facility] 56- Absolute Neutrophils 0.65(L) 1.80 - 7.70 K/uL 07/01/2024 2:47 PM EST [facility] 56 Absolute Lymphocytes 1.45 1.00 - 4.80 K/ul 07/01/2024 2:47 PM EST [facility] 56- Absolute Monocytes 0.26 0.00 - 1.10 K/uL 07/01/2024 2:47 PM EST [facility] 56 Absolute Eosinophils 0.04 0.00 - 0.70 K/uL 07/01/2024 2:47 PM EST [facility] 56 Absolute Basophils 0.01 0.00 - 0.20 K/uL 07/01/2024 2:47 PM [facility] 56 Blood Venous blood specimen / Unknown Central Line / Unknown 07/01/2024 2:25 PM EST 07/01/2024 2:30 PM EST us Kanu Maravilla MD LAB BLOOD ORDERABLES Final Res ult [facility] [address] [place] [address] * (ABNORMAL) CBC (07/01/2024 2:25 PM EST) WBC 2.41(L) 4.00 - 10.80 K/uL 07/01/2024 2:47 PM EST [facility] 56 RBC 3.30 3.85 - 5.15 M/uL 07/01/2024 2:47 PM EST [facility] 56 HGB 10.8(L) 12.0 - 15.3 g/dL 07/01/2024 2:47 PM EST [facility] 56 HCT 32.2(L) 36.0 - 45.2 % 07/01/2024 2:47 PM EST [facility]-02 MCV 97.6 81.5 - 97.5 fL 07/01/2024 2:47 PM EST [facility] 56-02 MCH 32.7 27.0 - 34.0 pg 07/01/2024 2:47 PM EST [facility] 56-02 MCHC 33.5 32.0 - 36.0 g/dL 07/01/2024 2:47 PM EST [facility] 56-02 RDW 13.3 11.5 - 15.5 % 07/01/2024 2:47 PM [facility] 56-02 PLT 150 140 - 400 K/uL 07/01/2024 2:47 PM [facility] 56-02 MPV 9.2 6.6 - 11.1 fL 07/01/2024 2:47 PM EST [facility] 56-02 Blood Venous blood specimen / Unknown Central Line / Unknown 07/01/2024 2:25 PM EST 07/01/2024 2:30 PM EST Kanu Maravilla MD LAB BLOOD ORDERABLES Final Res ult [facility] 56-02 [address] [place] [address] * MAGNESIUM (07/01/2024 2:25 PM EST) Magnesium 1.7 1.5 - 2.6 mg/dL 07/01/2024 2:56 PM EST [facility] Blood Venous blood specimen / Unknown Central Line / Unknown 07/01/2024 2:25 PM EST 07/01/2024 2:30 PM EST Kanu Maravilla MD LAB BLOOD ORDERABLES Final Res ult [facility] 56- [address] [place] [address] * COMPREHENSIVE METABOLIC PANEL (07/01/2024 2:25 PM EST) BUN 13 6 - 20 mg/dL 07/01/2024 2:56 PM [facility] 56- CREATININE 0.8 0.5 - 1.0 mg/dL 07/01/2024 2:56 PM [facility] 56-02 EGFR >90 >=60 mL/min 07/01/2024 2:56 PM [facility] 56- Comment:eGFR is calculated b ased on the CKD-EPI 2020 equation. SODIUM 139 135 - 146 mmol/L 07/01/2024 2:56 PM [facility] 56- POTASSIUM 4.2 3.5 - 5.1 mmol/L 07/01/2024 2:56 PM [facility] 56- CHLORIDE 105 98 - 107 mmol/L 07/01/2024 2:56 PM [facility] 56- CO2 23 22 - 32 mmol/L 07/01/2024 2:56 PM [facility] 56- ANION GAP 11 7 - 15 mmol/L 07/01/2024 2:56 PM [facility] 56- GLUCOSE 80 70 - 120 mg/dL 07/01/2024 2:56 PM [facility] 56- Albumin 4.2 3.8 - 5.0 g/dL 07/01/2024 2:56 PM [facility] 56- AST 17 10 - 35 U/L 07/01/2024 2:56 PM [facility] 56- Alkaline Phosphatase 80 35 - 130 U/L 07/01/2024 2:56 PM [facility] 56- Bilirubin, Total 0.6 <=1.2 mg/dL 07/01/2024 2:56 PM [facility] 56-02 CALCIUM 9.0 8.4 - 10.2 mg/dL 07/01/2024 2:56 PM [facility] 56-02 Protein 6.9 6.0 - 8.3 g/dL 07/01/2024 2:56 PM [facility] 56-02 ALT 15 10 - 35 U/L 07/01/2024 2:56 PM [facility] 56-02 Blood Venous blood specimen / Unknown Central Line / Unknown 07/01/2024 2:25 PM EST 07/01/2024 2:30 PM EST Kanu Maravilla MD LAB BLOOD ORDERABLES Final Res ult [facility] 75-[address] [place] [address] documented in this encounter Visit Diagnoses Diagnosis [...] of , antepartum, single or unspecified fetus Dehydration- Primary Malignant neoplasm of upper-outer quadrant of left breast in female, estrogen receptor negative (HCC) documented in this encounter Administered Medications Active Administered Medications - up to 3 most recent administrations Medication Order MAR Action Action Date Dose Rate Site hEParin 100 UNIT/ML Lock Flush inj 500 Units 500 Units (5 mL), IV Lock, PRN Other, IV Flush, Starting on Sun07/01/24 at 1419, Until Sun07/02/24 at 1418, For 24 hours, Do not flush if lock, PICC, or central line not in place; IV infusing or unable to flush.Indications:Dehydration,M alignant neoplasm of upper-outer quadrant of left breast in female, estrogen receptor negative (HCC) Given 07/01/2024 4:20 PM EST 500 Units sodium chloride 0.9 % flush central line 10 mL 10 mL, IV Push, PRN Other, IV Flush, Starting on Sun07/01/24 at 1419, Until Sun07/02/24 at 1418, For 24 hours, Do not flush if lock, PICC, or central line not in place; IV infusing or unable to flush.Indications:Dehydration,M alignant neoplasm of upper-outer quadrant of left breast in female, estrogen receptor negative (HCC) Given 07/01/2024 4:20 PM EST 10 mL Inactive Administered Medications - up to 3 most recent administrations Medication Order MAR Action Action Date Dose Rate Site NSS infusion FOR HYDRATION Intravenous, at 500 mL/hr Administer over 2 Hours, ONCE, 1 dose, On Sun07/01/24 at 1530Indications:Dehydrati on,Malignant neoplasm of upper-outer quadrant of left breast in female, estrogen receptor negative (HCC) Start Infusion 07/01/2024 2:20 PM EST 1,000 mL 500 mL/hr documented in this encounter Care Teams Insurance Case Manager Relationship Specialty Start Date End Date Malinda Owens CRNP [address] [facility] [place] [address] PCP - General Nurse Practitioner 09/20/23 documented as of this encounter
--- OUTSIDE RECORDS SUMMARY | 2024-09-05 14:31 | External Medical Summary | Summary of Care ---
Author Name Unknown Organization [facility] Address [address] [place] [address] Phone [phone] Care Team Providers Care Pedal Assembler Name Role Phone Malinda Owens Primary Care Provider [phone] Reason for Visit * Reason Comments Chemotherapy C3/D15 - Taxol, Carb o Procedure Labs from port * Episode Based Medications (Routine) - Authorized Specialty Diagnoses / Procedures Referred By Contjeffery t Referred To Contact Diagnoses Malignant neoplasm of upper-outer quadrant of left breast in female, estrogen receptor negative (HCC) Encounter for antineoplastic chemotherapy Encounter for prevention of neutropenia due to chemotherapy Procedures FL DOXORUBIC HCL 10 MG VL CHEMO FL CARBOPLATIN INJECTION FL FOSAPREPITANT INJECTION FL INJ PEMBROLIZUMAB FL INJECTION, FULPHILA FL PACLITAXEL INJECTION FL INJ CYCLOPHOSPHAMD AUROMEDIC FL PALONOSETRON HCL Em Ng MD Hematology/Oncology Treatment, [address] [address] Phone: tel: fax: Referral ID Status Reason Start Date Expiration Date V isits Requested Visits Authorized [id number] Authorized 04/30/2024 07/23/2024 [id number] Encounter Details Date Type Department Care Team (Latest Contact Info) Description 07/03/2024 9:15 AM EST Hem/Onc Treatment Hematology/Oncolog y Treatment, [address] [place] [address] [place] Chair [address] [place] [address] Encounter for antineoplastic chemotherapy*; [...] and class I obesity. Per review of FURNACE CHECKER documentation of 09/25/23, blood glucose values have [...] Recommend nutrition consult with RDN (Registered Dietitian Pavilion Cutter). Lifestyle changes are also indicated including [...] and folate levels and referral to a transplant surgeon. If hemoglobin levels are below 8 g/dl, we recommend Maternal Medicine ultrasound for growth every 4 weeks after 24 weeks. Consider a blood transfusion if hemoglobin levels fall below 6 g/dL. ([employer] Met[employer] Practice Bulletin Number 95, December,). Consider Venofer [...] money to get more. 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 Not [...] Patient is going on work trip to [place] next weekend so she would prefer to [...] 10:00 AM EST Hem/Onc Treatment Hematology/Oncology Treatment, [place] [address] [place] [phone] [place] Chair 3 Hem [facility] Scenery [facility] [address] 07/24/2024 8:00 AM EST Nurse Only Hematology/Oncology Treatment, [place] [address] [place] [phone] [place], Chair 5 Hem On[address] [place] [address] 07/24/2024 8:30 AM EST Office Visit Hematology/Oncology [address] [place] [phone] Kanu Maravilla MD 200 [place] [address] 07/24/2024 9:30 AM EST Hem/Onc Treatment Hematology/Oncology Treatment, [place] [address] [place] [phone] [place], Chair 11 Hem Onc [address] [place] [address] Health Maintenance Due Date Last Done Comments [...] this encounter Medical Devices Implanted Type Area Human Resources File Clerk Device Identifier Shelf Expiration Date Model / Serial / Lot Stent Kev montes de ocar 11cm - [id number] Implanted:Qty : 1 on 02/08/2024 by Jeffrey Kerr MD at OR [facility] [employer] [id number] 08/16/2028 [id number] / / [id number] Port Implant W8f Poly Cath - [id number] Implanted:Qty : 1 on 05/02/2024 by Iam Curry MD at OR [facility] Right: Chest CR BARD : PERIPHERAL VASCULAR [id number] 05/17/2025 [id number] / / [id number] documented as of this encounter Procedures Procedure [...] 9:37 AM EST) nRBCs 07/03/2024 10:01 AM [facility] 56-02 Reactive Lymphocytes Present(A ) None Seen 07/03/2024 10:01 AM [facility] 56-02 Blood Venous blood specimen / Unknown Venipuncture / Unknown 07/03/2024 9:37 AM EST 07/03/2024 9:45 AM EST Kanu Maravilla MD LAB BLOOD ORDERABLES Final Res ult [facility] 56-[address] [place] [address] * (ABNORMAL) DIFFERENTIAL, AUTOMATED (07/03/2024 9:37 AM EST) [facility] WBC 3.54(L) 4.00 - 10.80 K/uL 07/03/2024 10:01 AM [facility] 56-02 Neutrophils % 57.1 40.0 - 75.0 % 07/03/2024 10:01 AM [facility] 56-02 Lymphocytes % 36.7 18.0 - 42.0 % 07/03/2024 10:01 AM [facility] 56-02 Monocytes % 5.9 1.0 - 11.0 % 07/03/2024 10:01 AM [facility] 56-02 Eosinophils % 0.0 0.0 - 6.0 % 07/03/2024 10:01 AM [facility] 56-02 Basophils % 0.3 0.0 - 2.0 % 07/03/2024 10:01 AM [facility] 56-02 Absolute Neutrophils 2.02 1.80 - 7.70 K/uL 07/03/2024 10:01 AM [facility] 56-02 Absolute Lymphocytes 1.30 1.00 - 4.80 K/ul 07/03/2024 10:01 AM [facility] 56-02 Absolute Monocytes 0.21 0.00 - 1.10 K/uL 07/03/2024 10:01 AM [facility] 56-02 Absolute Eosinophils 0.00 0.00 - 0.70 K/uL 07/03/2024 10:01 AM [facility] 56-02 Absolute Basophils 0.01 0.00 - 0.20 K/uL 07/03/2024 10:01 AM [facility] 56-02 Blood Venous blood specimen / Unknown Venipuncture / Unknown 07/03/2024 9:37 AM EST 07/03/2024 9:45 AM EST us Kanu Maravilla MD LAB BLOOD ORDERABLES Final Res ult [facility] 56-[address] [place], [place] [id number] * (ABNORMAL) CBC (07/03/2024 9:37 AM EST) WBC 3.54(L) 4.00 - 10.80 K/uL 07/03/2024 10:01 AM [facility] 56- RBC 3.21 3.85 - 5.15 M/uL 07/03/2024 10:01 AM [facility] 56-02 HGB 10.5(L) 12.0 - 15.3 g/dL 07/03/2024 10:01 AM [facility] 56- HCT 31.7(L) 36.0 - 45.2 % 07/03/2024 10:01 AM [facility] 56-02 MCV 98.8 81.5 - 97.5 fL 07/03/2024 10:01 AM [facility] 56-02 MCH 32.7 27.0 - 34.0 pg 07/03/2024 10:01 AM [facility] 56-02 MCHC 33.1 32.0 - 36.0 g/dL 07/03/2024 10:01 AM [facility] 56-02 RDW 13.3 11.5 - 15.5 % 07/03/2024 10:01 AM [facility] 56-02 PLT 178 140 - 400 K/uL 07/03/2024 10:01 AM [facility] 56-02 MPV 9.1 6.6 - 11.1 fL 07/03/2024 10:01 AM [facility] 56-02 Blood Venous blood specimen / Unknown Venipuncture / Unknown 07/03/2024 9:37 AM EST 07/03/2024 9:45 AM EST us Kanu Maravilla MD LAB BLOOD ORDERABLES Final Res ult [facility] 56 [address] [place] [address] * HCG QUALITATIVE, URINE (07/03/2024 9:37 AM EST) HCG Qualitative, Urine Negative Negative 07/03/2024 9:51 AM EST [address] Urine Urine specimen obtained by clean catch procedure / Unknown Non-blood Collection / Unknown 07/03/2024 9:37 AM EST 07/03/2024 9:45 AM EST us Kanu Maravilla MD LAB URINE ORDERABLES Final Res ult Performing Organization Address City/[facility]/ZIP Co de Phone Number [address] [place] [address] * (ABNORMAL) COMPREHENSIVE METABOLIC PANEL (07/03/2024 9:37 AM EST) BUN 12 6 - 20 mg/dL 07/03/2024 10:[address] CREATININE 0.7 0.5 - 1.0 mg/dL 07/03/2024 10:[address] EGFR >90 >=60 mL/min 07/03/2024 10:07 AM [facility] 56 Comment:eGFR is calculated b ased on the CKD-EPI 2020 equation. SODIUM 140 135 - 146 mmol/L 07/03/2024 10:07 AM [facility] 56- POTASSIUM 3.9 3.5 - 5.1 mmol/L 07/03/2024 10:07 AM [facility] 56- CHLORIDE 105 98 - 107 mmol/L 07/03/2024 10:07 AM [facility] 56- CO2 20(L) 22 - 32 mmol/L 07/03/2024 10:07 AM [facility] 56 ANION GAP 15 7 - 15 mmol/L 07/03/2024 10:07 AM [facility] 56- GLUCOSE 141(H) 70 - 120 mg/dL 07/03/2024 10:07 AM [facility] 56-02 Albumin 4.3 3.8 - 5.0 g/dL 07/03/2024 10:07 AM [facility] 56-02 AST 15 10 - 35 U/L 07/03/2024 10:07 AM [facility] 56- Alkaline Phosphatase 83 35 - 130 U/L 07/03/2024 10:07 AM [facility] 56-02 Bilirubin, Total 0.4 <=1.2 mg/dL 07/03/2024 10:07 AM [facility] 56- CALCIUM 9.3 8.4 - 10.2 mg/dL 07/03/2024 10:07 AM [facility] 56-02 Protein 7.1 6.0 - 8.3 g/dL 07/03/2024 10:07 AM [facility] 56- ALT 14 10 - 35 U/L 07/03/2024 10:07 AM [facility] [address] Blood Venous blood specimen / Unknown Venipuncture / Unknown 07/03/2024 9:37 AM EST 07/03/2024 9:45 AM EST Kanu Maravilla MD LAB BLOOD ORDERABLES Final Res ult [facility] 56- [address] [place] [address] documented in this encounter Visit Diagnoses Diagnosis [...] at 1100, For 1 dose, Restricted per [facility] antiemetic guidelinesIndications:Malign ant neoplasm of upper-outer quadrant of left breast in female, estrogen receptor negative (HCC),Encounter for antineoplastic chemotherapy,Encounter for prevention of neutropenia due to chemotherapy Given 07/03/2024 10:28 AM EST 0.25 mg documented in this encounter Care Teams Pedal Assembler Relationship Specialty Start Date End Date Malinda Owens CRNP [address] [place] [address] PCP - General Nurse Practitioner 09/20/23 documented as of this encounter
--- OUTSIDE RECORDS SUMMARY | 2024-09-05 14:31 | External Medical Summary ---
Author Name Unknown Address Unknown Organization K09:[facility] [address] [place] [address] Laboratory Report Ordering Provider Test Date Status JASMINE JANSEN 07/03/2024 09:37:44 Final Observation Date Value Abnormality Reference (Units ) Status SYNC LEUKOCYTES IN BLOOD BY AUTOMATED COUNT 07/03/2024 09:37:44 3.54 Below low normal 4.00-10.80 (K/uL) Final Segs 07/03/2024 09:37:44 57.1 40.0-75.0 (%) Final Lymphs % 07/03/2024 09:37:44 36.7 18.0-42.0 (%) Final Monos 07/03/2024 09:37:44 5.9 1.0-11.0 (%) Final Eosinophils 07/03/2024 09:37:44 0.0 0.0-6.0 (%) Final Basos 07/03/2024 09:37:44 0.3 0.0-2.0 (%) Final Absolute Segs 07/03/2024 09:37:44 2.02 1.80-7.70 (K/uL) Final Lymphs, absolute 07/03/2024 09:37:44 1.30 1.00-4.80 (K/ul) Final Monos, Abs 07/03/2024 09:37:44 0.21 0.00-1.10 (K/uL) Final Eos, Abs 07/03/2024 09:37:44 0.00 0.00-0.70 (K/uL) Final Basos, Abs 07/03/2024 09:37:44 0.01 0.00-0.20 (K/uL) Final Performing Location [facility] [address] [place] [address]
--- OUTSIDE RECORDS SUMMARY | 2024-09-05 14:31 | External Medical Summary | Summary of Care ---
Author Name Unknown Organization [facility] Address [address] [facility] [place] [address] Phone [phone] Care Team Providers Care Nuclear Equipment Operator Name Role Phone OwensMalinda AD Primary Care Provider [phone] Reason for Visit * Reason Onset Date Comments Test Results Lab 07/02/2024 Encounter Details Date Type Department Care Team (Late st Contact Info) Description 07/02/2024 Telephone Hematology/Oncology [facility] [place] [address] [facility] [place] [phone] Kanu Maravilla MD [address] [facility] [place] [address] Test Results Lab Allergies No known active allergiesdocumented as of this encounter (statuses as of 07/02/2024) Medications 29-1 MG Oral Tablet Chewable Take [...] Enrolled in Current Health. Plans to picking supervisor meter from pharmacy today. Instructions provided to [...] and class I obesity. Per review of ELECTRONIC LAB TECHNICIAN documentation of 09/25/23, blood glucose values [...] Recommend nutrition consult with RDN (Registered Dietitian Blacksmith Supervisor). Lifestyle changes are also indicated including [...] and folate levels and referral to a supervisor hanging and trimming. If hemoglobin levels are below 8 g/dl, we recommend Maternal Medicine ultrasound for growth every 4 weeks after 24 weeks. Consider a blood transfusion if hemoglobin levels fall below 6 g/dL. ([employer] and Silk Winding Machine Operator Practice Bulletin Number 95, December,). [...] money to get more. Never true 03/26/2024 Craig Depression Scale Answer Date Recorded Craig Depression Scale Total 6 12/11/2023 The thought [...] No 03/26/2024 Does the household have a tuba city regional health care corporationlar source of income? 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 * Telephone Encounter - Yvrose Capps LPN - 07/02/2024 9:46 AM EST ----- Message from Kanu Maravilla MD sent at 07/02/2024 9:38 AM EST ----- Urine culture --> no growth. documented in this encounter Plan of Treatment Upcoming Encounters Date Type Department Care Team (Late st Contact Info) Description 07/03/2024 9:15 AM EST Hem/Onc Treatment Hematology/Oncology Treatment, [address], [place] [phone] [place], Chair 4 Hem Onc Scenery 200 [facility] [place], [place] [address] 07/17/2024 10:00 AM EST Hem/Onc Treatment Hematology/Oncology Treatment, [address], [place] [address] [place], Chair 3 Hem Onc Scenery 200 [facility] [place], [place] [address] 07/24/2024 8:00 AM EST Nurse Only Hematology/Oncology Treatment, [address] [place] [phone] [place], Chair 5 Hem Onc Scenery 200 [facility] [place], [place] [address] 07/24/2024 8:30 AM EST Office Visit Hematology/Oncology [facility] [address] [place], [place] [phone] Kanu Maravilla MD [address] [place] [address] 07/24/2024 9:30 AM EST Hem/Onc Treatment Hematology/Oncology Treatment, [address], [place] [address] [place], Chair 11 Hem Onc Scenery 200 [facility] [place], [place] [address] 08/06/2024 9:00 AM EST Telemedicine Genetics HemOnc, [facility] [address] [place] [address] Reyes, Estephania Sharri, MS [address] [place], [place] [phone] Health Maintenance Due Date Last Done Comments [...] this encounter Medical Devices Implanted Type Area Avp Device Identifier Shelf Expiration Date Model / Serial / Lot Stent Angulo 4fr 11cm - [id number] Implanted:Qty : 1 on 02/08/2024 by Jeffrey Kerr MD at OR [facility] [employer] [id number] 08/16/2028 [id number] / / [id number] Port Implant W8f Poly Cath - [id number] Implanted:Qty : 1 on 05/02/2024 by Iam Curry MD at OR [facility] Right: Chest CR BARD : PERIPHERAL VASCULAR [id number] 05/17/2025 [id number] / / [id number] documented as of this encounter Care Teams Nuclear Equipment Operator Relationship Specialty Start Date End Date Malinda Owens CRNP [address] [place] [address] PCP - General Nurse Practitioner 09/20/23 documented as of this encounter
--- OUTSIDE RECORDS SUMMARY | 2024-09-05 14:31 | External Medical Summary ---
Author Name Unknown Address Unknown Organization K09:[facility] [address] [place] [address] Laboratory Report Ordering Provider Test Date Status JASMINE JANSEN 07/01/2024 14:25:05 Final Observation Date Value Abnormality Reference (Units ) Status BUN 07/01/2024 14:25:05 13 6-20 (mg/dL) Final Creatinine 07/01/2024 14:25:05 0.8 0.5-1.0 (mg/dL) Final Glomerular filtration rate/1.73 sq M.predicted [Volume Rate/Area] in Serum, Plasma or Blood by Creatinine-based formula (CKD-EPI) 07/01/2024 14:25:05 >90 >=60 (mL/min) Final eGFR is calculated based on the CKD-EPI 2020 equation. Sodium 07/01/2024 14:25:05 139 135-146 (m mol/L) Final Potassium 07/01/2024 14:25:05 4.2 3.5-5.1 (m mol/L) Final Cl 07/01/2024 14:25:05 105 98-107 (mm ol/L) Final CO2 07/01/2024 14:25:05 23 22-32 (mmo l/L) Final Anion gap 07/01/2024 14:25:05 11 7-15 (mmol /L) Final Glucose 07/01/2024 14:25:05 80 70-120 (mg /dL) Final Albumin 07/01/2024 14:25:05 4.2 3.8-5.0 (g /dL) Final AST (Aspartate aminotransferase) 07/01/2024 14:25:05 17 10-35 (U/L) Final Alk Phos 07/01/2024 14:25:05 80 35-130 (U/ L) Final Bilirubin, Total 07/01/2024 14:25:05 0.6 <=1 .2 (mg/dL) Final Calcium 07/01/2024 14:25:05 9.0 8.4-10.2 ( mg/dL) Final Protein 07/01/2024 14:25:05 6.9 6.0-8.3 (g /dL) Final ALT (Alanine aminotransferase) 07/01/2024 14:25:05 15 10-35 (U/L) Final Performing Location [facility] [address] [place] [address]
--- OUTSIDE RECORDS SUMMARY | 2024-09-05 14:31 | External Medical Summary | Summary of Care ---
Author Name Unknown Organization [facility] Address [address] [place] [address] Phone [phone] Care Team Providers Care Lab Animal Technician Name Role Phone Owens Ridgemargaret AD Primary Care Provider [phone] Reason for Visit * Reason Onset Date Comments Advice 07/02/2024 Maravilla Encounter Details Date Type Department Care Team (Late st Contact Info) Description 07/02/2024 Refill Hematology/Oncology [facility] 200 [facility] [address] Services, Scheduling [address] [place] [address] Dysuria* Allergies No known active allergiesdocumented as [...] complete. Enrolled in Current Health. Plans to picket labor union meter from pharmacy today. Instructions provided to [...] and class I obesity. Per review of TRANSIT PLANNING DIRECTOR documentation of 09/25/23, blood glucose values [...] Recommend nutrition consult with RDN (Registered Dietitian Ski Patrol). Lifestyle changes are also indicated including optimizing [...] and folate levels and referral to a polyethylene bag machine operator. If hemoglobin levels are below 8 g/dl, we recommend Maternal Medicine ultrasound for growth every 4 weeks after 24 weeks. Consider a blood transfusion if hemoglobin levels fall below 6 g/dL. ([employer] and Charter Coordinator Practice Bulletin Number 95, December,). Consider Venofer [...] No 03/26/2024 Does the household have a inscription house health centerlar source of income? 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 * Telephone Encounter - Kanu Maravilla MD - 07/02/2024 12:18 PM EST [...] Can you please call Yuli back at [phone] Yuli stated that she has tx tomorrow and needs a resolution today! Thank you! documented in this encounter Plan of Treatment Upcoming Encounters Date Type Department Care Team (Late st Contact Info) Description 07/03/2024 9:15 AM EST Hem/Onc Treatment Hematology/Oncology Treatment, [place] [address] [place] [address] [place], Chair 4 Hem Onc Scenery [address] [place] [address] 07/17/2024 10:00 AM EST Hem/Onc Treatment Hematology/Oncology Treatment, [place] 200 [place] [address] [place], Chair 3 Hem Onc Scenery 200 [facility] [place] [address] 07/24/2024 8:00 AM EST Nurse Only Hematology/Oncology Treatment, [place] 200 [place] [address] [place], Chair 5 Hem Onc Scenery 200 [facility] [place] [address] 07/24/2024 8:30 AM EST Office Visit Hematology/Oncology [facility] [address] [facility] [phone] Kanu Maravilla MD [address] [place] [address] 07/24/2024 9:30 AM EST Hem/Onc Treatment Hematology/Oncology Treatment, [place] 200 [place] [address] [place], Chair 11 Hem Onc Scenery 200 [facility] [place] [address] Health Maintenance Due Date Last Done Comments [...] this encounter Medical Devices Implanted Type Area Neon Glass Bender Device Identifier Shelf Expiration Date Model / Serial / Lot Stent Angulo 4fr 11cm - [id number] Implanted:Qty : 1 on 02/08/2024 by Jeffrey Kerr MD at OR [facility] [employer] [id number] 08/16/2028 [id number] / / [id number] Port Implant W8f Poly Cath - [id number] Implanted:Qty : 1 on 05/02/2024 by Iam Curry MD at OR [facility] Right: Chest CR BARD : PERIPHERAL VASCULAR [id number] 05/17/2025 [id number] / / [id number] documented as of this encounter Visit Diagnoses [...] Primary documented in this encounter Care Teams Lab Animal Technician Relationship Specialty Start Date End Date Malinda Owens CRNP [address] [facility] [place] [address] PCP - General Nurse Practitioner 09/20/23 documented as of this encounter
--- OUTSIDE RECORDS SUMMARY | 2024-09-05 14:31 | External Medical Summary ---
Author Name Unknown Address Unknown Organization K09:[facility] [place] [address] Laboratory Report Ordering Provider Test Date Status JASMINE JANSEN 07/03/2024 09:37:44 Final Observation Date Value Abnormality Reference (Units ) Status Nucleated erythrocytes/100 leukocytes [Ratio] in Blood by Automated count 07/03/2024 09:37:44 Final Variant lymphocytes [Presence] in Blood by Light microscopy 07/03/2024 09:37:44 Present Abnormal None Seen Final Performing Location [facility] [place] [address]
--- OUTSIDE RECORDS SUMMARY | 2024-09-05 14:32 | External Medical Summary | Summary of Care ---
Author Name Unknown Organization [facility] Address [address] [place] [address] Phone [phone] Care Team Providers Care Riveter Name Role Phone Malinda Owens Primary Care Provider [phone] Reason for Visit * Reason Comments Chemotherapy Carbo/Taxol C2,D8 * Episode Based Medications (Routine) - Authorized Specialty Diagnoses / Procedures Referred By Contac t Referred To Contact Diagnoses Malignant neoplasm of upper-outer quadrant of left breast in female, estrogen receptor negative (HCC) Encounter for antineoplastic chemotherapy Encounter for prevention of neutropenia due to chemotherapy Procedures PA DOXORUBIC HCL 10 MG VL CHEMO PA CARBOPLATIN INJECTION PA FOSAPREPITANT INJECTION PA INJ PEMBROLIZUMAB PA INJECTION, FULPHILA PA PACLITAXEL INJECTION PA INJ CYCLOPHOSPHAMD AUROMEDIC PA PALONOSETRON HCL Em Ng MD Hematology/Oncology Treatment, [address] [address] Phone: tel: fax: Referral ID Status Reason Start Date Expiration Date V isits Requested Visits Authorized [id number] Authorized 04/30/2024 07/23/2024 [id number] Encounter Details Date Type Department Care Team (Latest Contact Info) Description 06/05/2024 11:00 AM EST Hem/Onc Treatment Hematology/Oncolog y Treatment, [address] [address] [place], Chair [address] Hem On[address] [place] [address] Malignant neoplasm of upper-outer quadrant of left breast in female, estrogen receptor negative (HCC)*; Encounter for antineoplastic chemotherapy; Encounter for prevention of neutropenia due to chemotherapy Allergies No known active allergiesdocumented as of this encounter (statuses as of 06/27/2024) Medications 19 29-1 MG Oral Tablet Chewable [...] as of this encounter (statuses as of 06/27/2024) Active Problems Problem Noted Date Diagnosed Date [...] and class I obesity. Per review of CITY COUNCILMAN documentation of 09/25/23, blood glucose values have [...] Recommend nutrition consult with RDN (Registered Dietitian Nursing Home Manager). Lifestyle changes are also indicated including [...] folate levels and referral to a assistant pastry chef. If hemoglobin levels are below 8 g/dl, we recommend Maternal Medicine ultrasound for growth every 4 weeks after 24 weeks. Consider a blood transfusion if hemoglobin levels fall below 6 g/dL. ([employer] and Chemical Processing Laborer Practice Bulletin Number 95, December,). Consider [...] as of this encounter (statuses as of 06/27/2024) Resolved Problems Problem Noted Date Diagnosed Date Resolved Date Abnormal glucose tolerance i n mother complicating 04/19/2023 08/31/2023 Overview (04/19/2023): Failed early glucola. 3hr GTT ordered documented as of this encounter (statuses as of 06/27/2024) Immunizations Name Administration Dates Next Due DTP [...] money to get more. 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 Not on file Not on file documented as of this encounter Last Filed Vital Signs Vital Sign Reading Time Taken Comments Blood Pressure 100/68 06/05/2024 11:01 AM EST Pulse 91 06/05/2024 11:01 AM EST Temperature 36.6 C (97.9 F) 06/05/2024 11:[address] Respiratory Rate 16 06/05/2024 11:01 AM EST Oxygen Saturation 96% 06/05/2024 11:01 AM EST Inhaled Oxygen Concentration - - Weight 87.2 kg (192 lb 3.2 oz) 06/05/2024 11:01 AM EST Height - - Body Mass Index 28.37 05/02/2024 10:35 AM EST documented in this encounter Nursing Notes * Laron Emerson RN - 06/05/2024 1:38 PM EST Pt infusion completed without issues. Pt denied any symptoms. VAD flushed with NSS/Heparin per orders by TAMIKO Parsons. VAD access removed without issues. Goals: Pt will remain free from injury. Possible barriers to meeting goals: IV Chemotherapy Stability of the patient: Moderately stable - low risk of patient condition declining or worsening Summary regarding today's goals: Met: Pt remained free from injury. * Laron Emerson RN - 06/05/2024 11:02 AM EST Chair 12. VAD accesed without issues, positive blood return noted. Bruising noted at the port site but no redness noted. Pt denies any pain or irritation at this site. Advised to monitor bruising and if it worsens to let our office know. She denies any complaints today. Safety and Risk for Injury Patient will [...] potential segovia while using the heat function. Chemotherapy/Immunotherapy agents: Carbo/Taxol Consent for chemotherapy drug treatment complete, dated, and signed? yes, date - 04/24/24 Treatment lab parameters met? Yes Has treatment weight changed > than 10%? No Treatment preauthorized? Yes VITALS Filed Vitals: 06/05/24 1101 BP: 100/68 Pulse: 91 Resp: 16 Temp: 36.6 C (97.9 F) SpO2: 96% Weight: 87.2 kg (192 lb 3.2 oz) BP Readings from Last 2 Encounters: 06/05/24 100/68 05/29/24 112/72 Pulse Readings from Last 2 Encounters: 06/05/24 91 05/29/24 61 Resp Readings from Last 2 Encounters: 06/05/24 16 05/29/24 18 SpO2 Readings from Last 2 Encounters: 06/05/24 96% 05/29/24 96% Temp Readings from Last 2 Encounters: 06/05/24 36.6 C (97.9 F) 05/29/24 36.1 C (97 F) (Tympanic) Urine protein: N/A Patient education [...] OTHER: denies any additional symptoms PAIN: 0 documented in this encounter Plan of Treatment Upcoming Encounters Date Type Department Care Team (Late st Contact Info) Description 07/03/2024 8:30 AM EST Laboratory Laboratory Scenery [facility] [address] [place] [address] [place], Lab Scenery [address] [place] [address] 07/03/2024 9:30 AM EST Hem/Onc Treatment [address]ematology[address] [address] [place], Chair 10 Hem Onc Scenery [address] [place] [address] 07/17/2024 9:00 AM EST Laboratory Laboratory [facility] [place] [address] [place] [address] [place], Lab Scenery [address] [facility] [place] [address] 07/17/2024 10:00 AM EST Hem/Onc Treatment Hematology/Oncology Treatment [place] 200 [facility] [place] [address] [place], Chair 3 Hem Onc Scenery [address] [place] [address] 07/24/2024 7:50 AM EST Laboratory Laboratory [facility] [place] [address] [place] [address] [place], Lab Scenery [address] [facility] [place] [address] 07/24/2024 8:30 AM EST Office Visit Hematology/Oncology [facility] 200 [facility] [place], [place] [address] Kanu Maravilla MD 200 [facility] [place], [place] [address] 07/24/2024 9:30 AM EST Hem/Onc Treatment Hematology/Oncology Treatment, [place] [address] [facility] [place] [address] [place], Chair 11 Hem Onc [facility] 200 [facility], [place] [address] 08/06/2024 9:00 AM EST Telemedicine Genetics HemOnc, [facility] [address] [place] [address] Estephania Reyes, [place] [address] [place] [address] Health Maintenance Due Date Last [...] this encounter Medical Devices Implanted Type Area Db2 Dba Device Identifier Shelf Expiration Date Model / Serial / Lot Stent Kev 4fr 11cm - [id number] Implanted:Qty : 1 on 02/08/2024 by Jeffrey Kerr MD at OR [facility] [employer] [id number] 08/16/2028 [id number] / / [id number] Port Implant W8f Poly Cath - [id number] Implanted:Qty : 1 on 05/02/2024 by Iam Curry MD at OR [facility] Right: Chest CR BARD : PERIPHERAL VASCULAR [id number] 05/17/2025 [id number] / / [id number] documented as of this encounter Visit Diagnoses [...] FROM LIGHT, ONCE, 1 dose, On Bibi 06/05/24 at 1400Indications:Malignant neoplasm of upper-outer quadrant of left breast in female, estrogen receptor negative (HCC),Encounter for antineoplastic chemotherapy,Encounter for prevention of neutropenia due to chemotherapy Start Infusion 06/05/2024 12:36 PM EST 219 mg 510 mL/hr dexAMETHasone (Decadron) tab 12 mg 12 mg, Oral, ONCE, On Bibi 06/05/24 at 1130, For 1 doseIndications:Malignant neoplasm of upper-outer quadrant of left breast in female, estrogen receptor negative (HCC),Encounter for antineoplastic chemotherapy,Encounter for prevention of neutropenia due to chemotherapy Given 06/05/2024 11:09 AM EST 12 mg diphenhydrAMINE (Benadryl) inj 25 mg 25 mg, IV Push, ONCE, On Bibi 06/05/24 at 1130, For 1 doseIndications:Malignant neoplasm of upper-outer quadrant of left breast in female, estrogen receptor negative (HCC),Encounter for antineoplastic chemotherapy,Encounter for prevention of neutropenia due to chemotherapy Given 06/05/2024 11:09 AM EST 25 mg Famotidine (Pepcid) inj 20 mg 20 mg, IV Push, ONCE, On Bibi 06/05/24 at 1130, For 1 dose, Give IV push over 2 minutes.Indications:Maligna nt neoplasm of upper-outer quadrant of left breast in female, estrogen receptor negative (HCC),Encounter for antineoplastic chemotherapy,Encounter for prevention of neutropenia due to chemotherapy Given 06/05/2024 11:09 AM EST 20 mg hEParin 100 UNIT/ML Lock Flush inj 500 Units 500 Units (5 mL), IV Lock, PRN Other, IV Flush, Starting on Bibi 06/05/24 at 1045, Until Bibi 06/05/24 at 1741, For 24 hours, Do not flush if lock, PICC, or central line not in place; IV infusing or unable to flush.Indications:Malignant neoplasm of upper-outer quadrant of left breast in female, estrogen receptor negative (HCC),Encounter for antineoplastic chemotherapy,Encounter for prevention of neutropenia due to chemotherapy Given 06/05/2024 1:13 PM EST 500 Units NSS infusion Intravenous, at 50 mL/hr, PRN, Starting on Bibi 06/05/24 at 1200, Until Bibi 06/05/24 at 1741, Maintenance lineIndications:Malignant neoplasm of upper-outer quadrant of left breast in female, estrogen receptor negative (HCC),Encounter for antineoplastic chemotherapy,Encounter for prevention of neutropenia due to chemotherapy Start Infusion 06/05/2024 11:18 AM EST 50 mL/hr PACLitaxel (Taxol) 165 mg in NSS 250 mL infusion 165 mg (rounded from 164.8 mg = 80 mg/m2 2.06 m2 Treatment Plan BSA from Recorded weight), IV Piggyback, ONCE, 1 dose, On Bibi 06/05/24 at 1300, Administer over 60 Minutes, Administer through 0.22 micron low protein binding filter!Indications:Malignan t neoplasm of upper-outer quadrant of left breast in female, estrogen receptor negative (HCC),Encounter for antineoplastic chemotherapy,Encounter for prevention of neutropenia due to chemotherapy Restarted 06/05/2024 11:28 AM EST 255 mL/hr Start Infusion 06/05/2024 11:25 AM EST 165 mg 255 mL/h r Palonosetron (Aloxi) inj SOLN 0.25 mg 0.25 mg, IV Push, ONCE, On Bibi 06/05/24 at 1130, For 1 dose, Restricted per [facility]NER antiemetic guidelinesIndications:Malignant neoplasm of upper-outer quadrant of left breast in female, estrogen receptor negative (HCC),Encounter for antineoplastic chemotherapy,Encounter for prevention of neutropenia due to chemotherapy Given 06/05/2024 11:09 AM EST 0.25 mg sodium chloride 0.9 % flush central line 10 mL 10 mL, IV Push, PRN Other, IV Flush, Starting on Bibi 06/05/24 at 1045, Until Bibi 06/05/24 at 1741, For 24 hours, Do not flush if lock, PICC, or central line not in place; IV infusing or unable to flush.Indications:Malignant neoplasm of upper-outer quadrant of left breast in female, estrogen receptor negative (HCC),Encounter for antineoplastic chemotherapy,Encounter for prevention of neutropenia due to chemotherapy Given 06/05/2024 1:13 PM EST 10 mL documented in this encounter Care Teams Riveter Relationship Specialty Start Date End Date Malinda Owens CRNP [address] [place] [address] PCP - General Nurse Practitioner 09/20/23 documented as of this encounter
--- OUTSIDE RECORDS SUMMARY | 2024-09-05 14:32 | External Medical Summary ---
Author Name Unknown Address Unknown Organization K01:[facility] - [address] [place] [id number] Laboratory Report Ordering Provider Test Date Status JASMINE JANSEN 07/01/2024 09:11:33 Final Observation Date Value Abnormality Reference (Units) Status Bacteria identified in Specimen by Culture 07/01/2024 09:11:33 No significant growth Final Test: Culture, Urine, Quanti tative
Specimen Source: Urine, Clean Catch
Specimen Type: Urine
Specimen Date: 07/01/2024910
Result Date: 07/02/2024930
Result Status: Final result
Resulting Lab: [facility]
[address]
[place] [address]

CULTURE

No significant growth

null Performing Location [facility] - [address] [place] [id number]
--- OUTSIDE RECORDS SUMMARY | 2024-09-05 14:32 | External Medical Summary | Summary of Care ---
Author Name Unknown Organization [facility] Address [address] [place] [address] Phone [phone] Care Team Providers Care Slackline Operator Name Role Phone Malinda Owens Primary Care Provider [phone] Reason for Visit * Reason Comments Chemotherapy [...] PALONOSETRON HCL Em Ng MD Hematology/Oncology Treatment, [address] [address] Phone: tel: fax: Referral ID Status Reason Start Date Expiration Date V isits Requested Visits Authorized [id number] Authorized 04/30/2024 07/23/2024 999 [id number] Encounter Details Date Type Department Care Team (Latest Contact Info) Description 06/05/2024 11:00 AM EST Hem/Onc Treatment Hematology/Oncolog y Treatment, [address] [address] [place], Chair [address] Hem On[address] [place] [address] Malignant neoplasm of upper-outer [...] and class I obesity. Per review of LABORATORY MILLER documentation of 09/25/23, blood glucose values have [...] Recommend nutrition consult with RDN (Registered Dietitian Movie Extra). Lifestyle changes are also indicated including optimizing [...] and folate levels and referral to a motor tester. If hemoglobin levels are below 8 g/dl, we recommend Maternal Medicine ultrasound for growth every 4 weeks after 24 weeks. Consider a blood transfusion if hemoglobin levels fall below 6 g/dL. ([employer] Obstetricians and Rotor Blade Installer Practice Bulletin Number 95, December,). Consider [...] money to get more. 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 on [...] 07/03/2024 8:30 AM EST Laboratory Laboratory Scenery [facility] [address] [place] [address] [place], Lab Scenery [address] [place] [address] 07/03/2024 9:30 AM EST Hem/Onc Treatment Hematology/Oncology [address] [address] [place], Chair 10 Hem Onc Scenery [address] [place] [address] 07/17/2024 9:00 AM EST Laboratory Laboratory [facility] [place] [address] [place] [address] [place], Lab Scenery [address] [facility] [place] [address] 07/17/2024 10:00 AM EST Hem/Onc Treatment Hematology/Oncology Treatment [place] 200 [facility] [place] [address] [place], Chair 3 Hem Onc Scenery [address] [place] [address] 07/24/2024 7:50 AM EST Laboratory Laboratory [facility] [place] [address] [place] [address] [place], Lab Scenery [address] [facility] [place] [address] 07/24/2024 8:30 AM EST Office Visit Hematology/Oncology [facility] 200 [facility] [place], [place] [address] Kanu Maravilla MD 200 [facility] [place], [place] [address] 07/24/2024 9:30 AM EST Hem/Onc Treatment Hematology/Oncology Treatment, [place] 200 [place] [address] [place], Chair 11 Hem Onc [facility] 200 [facility], [place] [address] 08/06/2024 9:00 AM EST Telemedicine Genetics HemOnc, [facility] [address] [place] [address] Estephania Reyes, [place] [address] [place] [address] Health Maintenance Due Date Last [...] this encounter Medical Devices Implanted Type Area Insole And Outsole Preparer Device Identifier Shelf Expiration Date Model / Serial / Lot Stent Kev 4fr 11cm - [id number] Implanted:Qty : 1 on 02/08/2024 by Jeffrey Kerr MD at OR [facility] [employer] [id number] 08/16/2028 [id number] / / [id number] Port Implant W8f Poly Cath - [id number] Implanted:Qty : 1 on 05/02/2024 by Iam Curry MD at OR [facility] Right: Chest CR BARD : PERIPHERAL VASCULAR [id number] 05/17/2025 [id number] / / [id number] documented as of this encounter Visit Diagnoses [...] at 1130, For 1 dose, Restricted per [facility] antiemetic guidelinesIndications:Malignant neoplasm of upper-outer quadrant of [...] mL documented in this encounter Care Teams Slackline Operator Relationship Specialty Start Date End Date Malinda Owens CRNP [address] [place] [address] PCP - General Nurse Practitioner 09/20/23 documented as of this encounter
--- OUTSIDE RECORDS SUMMARY | 2024-09-05 14:32 | External Medical Summary | Summary of Care ---
Author Name Unknown Organization [facility] Address [address] [place] [address] Phone [phone] Care Team Providers Care Server Name Role Phone Malinda Owens Primary Care [...] HCL Em Ng MD Hematology/Oncology Treatment, [address] [address] Phone: tel: fax: Referral ID Status Reason Start Date Expiration Date V isits Requested Visits Authorized [id number] Authorized 04/30/2024 07/23/2024 999 999 Encounter Details Date Type Department Care Team (Latest Contact Info) Description 06/05/2024 11:00 AM EST Hem/Onc Treatment Hematology/Oncolog y Treatment, [address] [address] [place], Chair [address] Hem On[address] [place] [address] Malignant neoplasm of upper-outer quadrant of [...] Enrolled in Current Health. 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 [...] and class I obesity. Per review of PILATES INSTRUCTOR documentation of 09/25/23, blood glucose values have [...] Recommend nutrition consult with RDN (Registered Dietitian Director Of Strategic Sourcing). Lifestyle changes are also indicated including optimizing [...] and folate levels and referral to a digital photo printer. If hemoglobin levels are below 8 g/dl, we recommend Maternal Medicine ultrasound for growth every 4 weeks after 24 weeks. Consider a blood transfusion if hemoglobin levels fall below 6 g/dL. ([employer] Obstetricians and Carpenter Railcar Practice Bulletin Number 95, December,). Consider Venofer [...] money to get more. 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 [...] 07/03/2024 8:30 AM EST Laboratory Laboratory Scenery [facility] [address] [place] [address] [place], Lab Scenery [address] [place] [address] 07/03/2024 9:30 AM EST Hem/Onc Treatment Hematology/Oncology [address] [address] [place], Chair 10 Hem Onc Scenery [address] [place] [address] 07/17/2024 9:00 AM EST Laboratory Laboratory [facility] [place] [address] [place] [address] [place], Lab Scenery [address] [facility] [place] [address] 07/17/2024 10:00 AM EST Hem/Onc Treatment Hematology/Oncology Treatment [place] 200 [facility] [place] [address] [place], Chair 3 Hem Onc Scenery [address] [place] [address] 07/24/2024 7:50 AM EST Laboratory Laboratory [facility] [place] [address] [place] [address] [place], Lab Scenery [address] [facility] [place] [address] 07/24/2024 8:30 AM EST Office Visit Hematology/Oncology [facility] 200 [facility] [place], [place] [address] Kanu Maravilla MD 200 [facility] [place], [place] [address] 07/24/2024 9:30 AM EST Hem/Onc Treatment Hematology/Oncology Treatment, [place] 200 [place] [address] [place], Chair 11 Hem Onc [facility] 200 [facility], [place] [address] 08/06/2024 9:00 AM EST Telemedicine Genetics [facility]Onc, [facility] [address] [place] [address] Estephania Reyes, [place] [address] [place] [address] Health Maintenance Due Date Last [...] this encounter Medical Devices Implanted Type Area Pet Stylist Device Identifier Shelf Expiration Date Model / Serial / Lot Stent Kev 4fr 11cm - [id number] Implanted:Qty : 1 on 02/08/2024 by Jeffrey Kerr MD at OR [facility] [employer] [id number] 08/16/2028 [id number] / / [id number] Port Implant W8f Poly Cath - [id number] Implanted:Qty : 1 on 05/02/2024 by Iam Curry MD at OR [facility] Right: Chest CR BARD : PERIPHERAL VASCULAR [id number] 05/17/2025 [id number] / / [id number] documented as of this encounter Visit Diagnoses [...] at 1130, For 1 dose, Restricted per [facility] antiemetic guidelinesIndications:Malignant neoplasm of upper-outer quadrant of [...] mL documented in this encounter Care Teams Server Relationship Specialty Start Date End Date Malinda Owens CRNP [address] [place] [address] PCP - General Nurse Practitioner 09/20/23 documented as of this encounter
--- OUTSIDE RECORDS SUMMARY | 2024-09-05 14:32 | External Medical Summary ---
Author Name Unknown Address Unknown Organization K09:[facility] [place] [address] Laboratory Report Ordering Provider Test Date Status JASMINE JANSEN 07/01/2024 09:11:33 Final Observation Date Value Abnormality Reference (Units ) Status Color of Urine by Auto 07/01/2024 09:11:33 Yellow Light Yellow, Yellow, Dark Yellow Final Clarity, Urine 07/01/2024 09:11:33 Clear Clear Final Glucose [Mass/volume] in Urine by Automated test strip 07/01/2024 09:11:33 Negative Negative (mg/dL) Final Bilirubin.total [Presence] in Urine by Automated test strip 07/01/2024 09:11:33 Negative Negative Final Ketones [Mass/volume] in Urine by Automated test strip 07/01/2024 09:11:33 Negative Negative (mg/dL) Final Specific gravity, Urine 07/01/2024 09:11:33 1.020 1.003-1.030 Final Hemoglobin [Presence] in Urine by Automated test strip 07/01/2024 09:11:33 Negative Negative Final pH, Urine 07/01/2024 09:11:33 6.0 5.0-7.5 (Units) Final Protein [Mass/volume] in Urine by Automated test strip 07/01/2024 09:11:33 100 Abnormal Negative (mg/dL) Final Urobilinogen [Mass/volume] in Urine by Automated test strip 07/01/2024 09:11:33 0.2 0.2, 1.0 (mg/dL) Final Nitrite [Presence] in Urine by Automated test strip 07/01/2024 09:11:33 Negative Negative Final Leukocyte esterase [Presence] in Urine by Automated test strip 07/01/2024 09:11:33 Trace Abnormal Negative Final Performing Location [facility] [place] [address]
--- OUTSIDE RECORDS SUMMARY | 2024-09-05 14:32 | External Medical Summary ---
Author Name Unknown Address Unknown Organization K09:[facility] [place] [address] Laboratory Report Ordering Provider Test Date Status INDERJITJASMINE 07/01/2024 14:25:05 Final Observation Date Value Abnormality Reference (Units ) Status Magnesium 07/01/2024 14:25:05 1.7 1.5-2.6 (m g/dL) Final Performing Location [facility] [place] [address]
--- OUTSIDE RECORDS SUMMARY | 2024-09-05 14:32 | External Medical Summary ---
Author Name Unknown Address Unknown Organization [facility] [place] [address] Laboratory Report Ordering Provider Test Date Status JASMINE JANSEN 07/01/2024 14:25:05 Final Observation Date Value Abnormality Reference (Units ) Status Nucleated erythrocytes/100 leukocytes [Ratio] in Blood by Automated count 07/01/2024 14:25:05 Final Variant lymphocytes [Presence] in Blood by Light microscopy 07/01/2024 14:25:05 Present Abnormal None Seen Final Performing Location [facility] [place] [address]
--- OUTSIDE RECORDS SUMMARY | 2024-09-05 14:32 | External Medical Summary | Summary of Care ---
Author Name Unknown Organization [facility] Address [address] [place] [address] Phone [phone] Care Team Providers Care Ui Ux Developer Name Role Phone Malinda Owens Primary Care Provider [phone] Reason for Visit * Reason Comments Chemotherapy [...] HCL Em Ng MD Hematology/Oncology Treatment, [address] [address] Phone: tel: fax: Referral ID Status Reason Start Date Expiration Date V isits Requested Visits Authorized [id number] Authorized 04/30/2024 07/23/2024 999 999 Encounter Details Date Type Department Care Team (Latest Contact Info) Description 06/05/2024 11:00 AM EST Hem/Onc Treatment Hematology/Oncolog y Treatment, [address] [address] [place], Chair 6 Hem On[address] [place] [address] Malignant neoplasm of upper-outer quadrant of [...] and class I obesity. Per review of INVESTIGATIVE SHOPPER documentation of 09/25/23, blood glucose values have [...] Recommend nutrition consult with RDN (Registered Dietitian District Resource Officer). Lifestyle changes are also indicated including optimizing [...] and folate levels and referral to a supply chain technician. If hemoglobin levels are below 8 g/dl, we recommend Maternal Medicine ultrasound for growth every 4 weeks after 24 weeks. Consider a blood transfusion if hemoglobin levels fall below 6 g/dL. ([employer] Obstetricians and Machinist Supervisor Outside Practice Bulletin Number 95, December,). Consider Venofer [...] money to get more. 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 file [...] 07/03/2024 8:30 AM EST Laboratory Laboratory Scenery [facility] [address] [place] [address] [place], Lab Scenery [address] [place] [address] 07/03/2024 9:30 AM EST Hem/Onc Treatment Hematology/Oncology [address] [address] [place], Chair 10 Hem Onc Scenery [address] [place] [address] 07/17/2024 9:00 AM EST Laboratory Laboratory [facility] [place] [address] [place] [address] [place], Lab Scenery [address] [facility] [place] [address] 07/17/2024 10:00 AM EST Hem/Onc Treatment Hematology/Oncology Treatment [place] [address] [facility] [place] [address] [place], Chair 3 Hem Onc Scenery [address] [place] [address] 07/24/2024 7:50 AM EST Laboratory Laboratory [facility] [place] [address] [place] [address] [place], Lab Scenery [address] [facility] [place] [address] 07/24/2024 8:30 AM EST Office Visit Hematology/Oncology [facility] [address] [facility] [place], [place] [address] Kanu Maravilla MD [address] [facility] [place], [place] [address] 07/24/2024 9:30 AM EST Hem/Onc Treatment Hematology/Oncology Treatment, [place] 200 [place] [address] [place], Chair [address] [facility] 200 [facility], [place] [address] 08/06/2024 9:00 AM EST Telemedicine Genetics HemOnc, [facility] [address] [place] [address] Estephania Reyes, [place] [address] [place] [address] Health Maintenance Due Date Last [...] this encounter Medical Devices Implanted Type Area Marine Oiler Device Identifier Shelf Expiration Date Model / Serial / Lot Stent Kev 4fr 11cm - [id number] Implanted:Qty : 1 on 02/08/2024 by Jeffrey Kerr MD at OR [facility] [employer] [id number] 08/16/2028 6546 / / [id number] Port Implant W8f Poly Cath - [id number] Implanted:Qty : 1 on 05/02/2024 by Iam Curry MD at OR [facility] Right: Chest CR BARD : PERIPHERAL VASCULAR [id number] 05/17/2025 [id number] / / [id number] documented as of this encounter Visit Diagnoses [...] at 1130, For 1 dose, Restricted per [facility] antiemetic guidelinesIndications:Malignant neoplasm of upper-outer quadrant [...] mL documented in this encounter Care Teams Ui Ux Developer Relationship Specialty Start Date End Date Malinda Owens CRNP [address] [place] [address] PCP - General Nurse Practitioner 09/20/23 documented as of this encounter
--- OUTSIDE RECORDS SUMMARY | 2024-09-05 14:32 | External Medical Summary ---
Author Name Unknown Address Unknown Organization K09:[facility] [place] [place] [address] Laboratory Report Ordering Provider Test Date Status JASMINE JANSEN 07/01/2024 14:25:05 Final Observation Date Value Abnormality Reference (Units ) Status WBC, Total 07/01/2024 14:25:05 2.41 Below low normal 4. 00-10.80 (K/uL) Final RBC 07/01/2024 14:25:05 3.30 3.85-5.15 (M/uL) Final Hemoglobin 07/01/2024 14:25:05 10.8 Below low normal 12 .0-15.3 (g/dL) Final HCT 07/01/2024 14:25:05 32.2 Below low normal 36. 0-45.2 (%) Final MCV 07/01/2024 14:25:05 97.6 81.5-97.5 (fL) Final MCH 07/01/2024 14:25:05 32.7 27.0-34.0 (pg) Final MCHC 07/01/2024 14:25:05 33.5 32.0-36.0 (g/dL) Final RDW 07/01/2024 14:25:05 13.3 11.5-15.5 (%) Final Platelets 07/01/2024 14:25:05 150 140-400 (K /uL) Final MPV 07/01/2024 14:25:05 9.2 6.6-11.1 ( fL) Final Performing Location [facility] [address]
--- OUTSIDE RECORDS SUMMARY | 2024-09-05 14:32 | External Medical Summary ---
Author Name Unknown Address Unknown Organization K09:[facility] [place] [address] Laboratory Report Ordering Provider Test Date Status JASIMNE JANSEN 07/01/2024 14:25:05 Final Observation Date Value Abnormality Reference (Units ) Status SYNC LEUKOCYTES IN BLOOD BY AUTOMATED COUNT 07/01/2024 14:25:05 2.41 Below low normal 4.00-10.80 (K/uL) Final Segs 07/01/2024 14:25:05 26.9 Below low normal 40.0-75.0 (%) Final Lymphs % 07/01/2024 14:25:05 60.2 Above high normal 18.0-42.0 (%) Final Monos 07/01/2024 14:25:05 10.8 1.0-11.0 (%) Final Eosinophils 07/01/2024 14:25:05 1.7 0.0-6.0 (%) Final Basos 07/01/2024 14:25:05 0.4 0.0-2.0 (%) Final Absolute Segs 07/01/2024 14:25:05 0.65 Below low normal 1.80-7.70 (K/uL) Final Lymphs, absolute 07/01/2024 14:25:05 1.45 1.00-4.80 (K/ul) Final Monos, Abs 07/01/2024 14:25:05 0.26 0.00-1.10 (K/uL) Final Eos, Abs 07/01/2024 14:25:05 0.04 0.00-0.70 (K/uL) Final Basos, Abs 07/01/2024 14:25:05 0.01 0.00-0.20 (K/uL) Final Performing Location [facility] [place] [address]
--- OUTSIDE RECORDS SUMMARY | 2024-09-05 14:32 | External Medical Summary | Summary of Care ---
Author Name Unknown Organization [facility] Address [address] [place] [address] Phone [phone] Care Team Providers Care Museum Security Chief Name Role Phone Malinda Owens Primary Care Provider [phone] Reason for Visit * Reason Comments Chemotherapy Carbo/Taxol C2,D8 * Episode Based Medications (Routine) - Authorized Specialty Diagnoses / Procedures Referred By Contac t Referred To Contact Diagnoses Malignant neoplasm of upper-outer quadrant of left breast in female, estrogen receptor negative (HCC) Encounter for antineoplastic chemotherapy Encounter for prevention of neutropenia due to chemotherapy Procedures LA DOXORUBIC HCL 10 MG VL CHEMO LA CARBOPLATIN INJECTION LA FOSAPREPITANT INJECTION LA INJ PEMBROLIZUMAB LA INJECTION, FULPHILA LA PACLITAXEL INJECTION LA INJ CYCLOPHOSPHAMD AUROMEDIC LA PALONOSETRON HCL Em Ng MD Hematology/Oncology Treatment, [address] [address] Phone: tel: fax: Referral ID Status Reason Start Date Expiration Date V isits Requested Visits Authorized [id number] Authorized 04/30/2024 07/23/[phone] Encounter Details Date Type Department Care Team (Latest Contact Info) Description 06/05/2024 11:00 AM EST Hem/Onc Treatment Hematology/Oncolog y Treatment, [address] [address] [place], Chair 6 Hem Onc [address] [place] [address] Malignant neoplasm of upper-outer [...] and class I obesity. Per review of PROMOTIONS MANAGER documentation of 09/25/23, blood glucose values [...] Recommend nutrition consult with RDN (Registered Dietitian Music Engraver). Lifestyle changes are also indicated including optimizing [...] and folate levels and referral to a power manager. If hemoglobin levels are below 8 g/dl, we recommend Maternal Medicine ultrasound for growth every 4 weeks after 24 weeks. Consider a blood transfusion if hemoglobin levels fall below 6 g/dL. ([employer] Obstetricians and Aluminum Hydroxide Process Operator Practice Bulletin Number 95, December,). Consider [...] money to get more. 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 [...] 07/03/2024 8:30 AM EST Laboratory Laboratory Scenery [facility] [address] [place] [address] [place], Lab Scenery [address] [place] [address] 07/03/2024 9:30 AM EST Hem/Onc Treatment Hematology/Oncology [address] [address] [place], Chair 10 Hem Onc Scenery [address] [place] [address] 07/17/2024 9:00 AM EST Laboratory Laboratory [facility] [place] [address] [place] [address] [place], Lab Scenery [address] [facility] [place] [address] 07/17/2024 10:00 AM EST Hem/Onc Treatment Hematology/Oncology Treatment [place] 200 [facility] [place] [address] [place], Chair 3 Hem Onc Scenery [address] [place] [address] 07/24/2024 7:50 AM EST Laboratory Laboratory [facility] [place] [address] [place] [address] [place], Lab Scenery [address] [facility] [place] [address] 07/24/2024 8:30 AM EST Office Visit Hematology/Oncology [facility] 200 [facility] [place], [place] [address] Kanu Maravilla MD 200 [facility] [place], [place] [address] 07/24/2024 9:30 AM EST Hem/Onc Treatment Hematology/Oncology Treatment, [place] 200 [place] [address] [place], Chair 11 Hem Onc [facility] 200 [facility], [place] [address] 08/06/2024 9:00 AM EST Telemedicine Genetics [facility]c, [facility] [address] [place] [address] Estephania Reyes, [place] [address] [place] [address] Health Maintenance Due Date Last [...] this encounter Medical Devices Implanted Type Area Push Connector Assembler Device Identifier Shelf Expiration Date Model / Serial / Lot Stent Kev 4fr 11cm - [id number] Implanted:Qty : 1 on 02/08/2024 by Jeffrey Kerr MD at OR [facility] [employer] [id number] 08/16/2028 6546 / / [id number] Port Implant W8f Poly Cath - [id number] Implanted:Qty : 1 on 05/02/2024 by Iam Curry MD at OR [facility] Right: Chest CR BARD : PERIPHERAL VASCULAR [id number] 05/17/2025 [id number] / / [id number] documented as of this encounter Visit Diagnoses [...] at 1130, For 1 dose, Restricted per [facility] antiemetic guidelinesIndications:Malignant neoplasm of upper-outer quadrant [...] mL documented in this encounter Care Teams Museum Security Chief Relationship Specialty Start Date End Date Malinda Owens CRNP [address] [place] [address] PCP - General Nurse Practitioner 09/20/23 documented as of this encounter
--- OUTSIDE RECORDS SUMMARY | 2024-09-05 14:32 | External Medical Summary ---
Author Name Unknown Address Unknown Organization K09:[facility] [place] [address] Laboratory Report Ordering Provider Test Date Status JASMINE JANSEN 07/01/2024 09:11:33 Final Observation Date Value Abnormality Reference (Units ) Status RBC, Urine 07/01/2024 09:11:33 0-2 0-2 (/HPF) Final WBC, Urine 07/01/2024 09:11:33 6-9 Abnormal 0-2 (/HPF) Final Bacteria [#/area] in Urine sediment by Microscopy high power field 07/01/2024 09:11:33 26-50 Abnormal 0-25 (/HPF) Final Epithelial cells.squamous [#/area] in Urine sediment by Microscopy high power field 07/01/2024 09:11:33 Many Abnormal None (/HPF) Final Performing Location [facility] [place] [address]
--- OUTSIDE RECORDS SUMMARY | 2024-09-05 14:32 | External Medical Summary | Summary of Care ---
Author Name Unknown Organization [facility] Address [address] [place] [address] Phone [phone] Care Team Providers Care Director Of Payroll Name Role Phone Malinda Owens Primary Care Provider [phone] Reason for Visit * Reason Comments Chemotherapy Carbo/Taxol C2,D8 * Episode Based Medications (Routine) - Authorized Specialty Diagnoses / Procedures Referred By Contac t Referred To Contact Diagnoses Malignant neoplasm of upper-outer quadrant of left breast in female, estrogen receptor negative (HCC) Encounter for antineoplastic chemotherapy Encounter for prevention of neutropenia due to chemotherapy Procedures VT DOXORUBIC HCL 10 MG VL CHEMO VT CARBOPLATIN INJECTION VT FOSAPREPITANT INJECTION VT INJ PEMBROLIZUMAB VT INJECTION, FULPHILA VT PACLITAXEL INJECTION VT INJ CYCLOPHOSPHAMD AUROMEDIC VT PALONOSETRON HCL Em Ng MD Hematology/Oncology Treatment, [address] [address] Phone: tel: fax: Referral ID Status Reason Start Date Expiration Date V isits Requested Visits Authorized [id number] Authorized 04/30/2024 07/23/[phone] Encounter Details Date Type Department Care Team (Latest Contact Info) Description 06/05/2024 11:00 AM EST Hem/Onc Treatment Hematology/Oncolog y Treatment, [address] [address] [place], Chair [address] On[address] [place] [address] Malignant neoplasm of upper-outer [...] and class I obesity. Per review of JIG BORING MACHINE SET UP OPERATOR documentation of 09/25/23, blood glucose values [...] Recommend nutrition consult with RDN (Registered Dietitian Rubber Tire Curer). Lifestyle changes are also indicated including [...] and folate levels and referral to a alarm mechanism adjuster. If hemoglobin levels are below 8 g/dl, we recommend Maternal Medicine ultrasound for growth every 4 weeks after 24 weeks. Consider a blood transfusion if hemoglobin levels fall below 6 g/dL. ([employer] Practice Bulletin Number 95, December,). Consider Venofer [...] money to get more. 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 on file Not [...] 07/03/2024 8:30 AM EST Laboratory Laboratory Sc[facility] [address] [place] [address] [place], Lab Scenery [address] [place] [address] 07/03/2024 9:30 AM EST Hem/Onc Treatment [address]ematology[address] [address] [place], Chair 10 Hem Onc Scenery [address] [place] [address] 07/17/2024 9:00 AM EST Laboratory Laboratory [facility] [place] [address] [place] [address] [place], Lab Scenery [address] [facility] [place] [address] 07/17/2024 10:00 AM EST Hem/Onc Treatment Hematology/Oncology Treatment [place] 200 [facility] [place] [address] [place], Chair 3 Hem Onc Scenery [address] [place] [address] 07/24/2024 7:50 AM EST Laboratory Laboratory [facility] [place] [address] [place] [address] [place], Lab Scenery [address] [facility] [place] [address] 07/24/2024 8:30 AM EST Office Visit Hematology/Oncology [facility] 200 [facility] [place], [place] [address] Kanu Maravilla MD 200 [facility] [place], [place] [address] 07/24/2024 9:30 AM EST Hem/Onc Treatment Hematology/Oncology Treatment, [place] 200 [place] [address] [place], Chair 11 Hem Onc [facility] 200 [facility], [place] [address] 08/06/2024 9:00 AM EST Telemedicine Genetics HemOnc, [facility] [address] [place] [address] Estephania Reyes, [place] [address] [place] [address] Health Maintenance Due Date Last [...] this encounter Medical Devices Implanted Type Area Route Driver Coin Machines Device Identifier Shelf Expiration Date Model / Serial / Lot Stent Kev 4fr 11cm - [id number] Implanted:Qty : 1 on 02/08/2024 by Jeffrey Kerr MD at OR [facility] [employer] [id number] 08/16/2028 [id number] / / [id number] Port Implant W8f Poly Cath - [id number] Implanted:Qty : 1 on 05/02/2024 by Iam Curry MD at OR [facility] Right: Chest CR BARD : PERIPHERAL VASCULAR [id number] 05/17/2025 [id number] / / [id number] documented as of this encounter Visit Diagnoses [...] 1130, For 1 dose, Restricted per [facility] antiemetic guidelinesIndications:Malignant neoplasm of upper-outer quadrant [...] mL documented in this encounter Care Teams Director Of Payroll Relationship Specialty Start Date End Date Malinda Owens CRNP [address] [place] [address] PCP - General Nurse Practitioner 09/20/23 documented as of this encounter
--- OUTSIDE RECORDS SUMMARY | 2024-09-05 14:32 | External Medical Summary | Summary of Care ---
Author Name Unknown Organization [facility] Address [address] [facility] [place] [address] Phone [phone] Care Team Providers Care Recruitment Officer Name Role Phone Malinda Owens AD Primary Care Provider [phone] Encounter Details Date Type Department Care Team (Late st Contact Info) Description 06/30/2024 Orders Only Hematology/Oncology [facility] 200 [facility] [place] [phone] Kanu Maravilla MD 200 [facility] [address] Dysuria* Allergies No known active allergiesdocumented as of this encounter (statuses as of 06/30/2024) Medications 29-1 MG Oral Tablet Chewable Take [...] as of this encounter (statuses as of 06/30/2024) Active Problems Problem Noted Date Diagnosed Date [...] complete. Enrolled in Current Health. Plans to grape picker meter from pharmacy today. Instructions provided [...] and class I obesity. Per review of MILL DRESSER documentation of 09/25/23, blood glucose values have [...] Recommend nutrition consult with RDN (Registered Dietitian Aircraft Accessories Mechanic). Lifestyle changes are also indicated including optimizing [...] and folate levels and referral to a hostess host. If hemoglobin levels are below 8 g/dl, we recommend Maternal Medicine ultrasound for growth every 4 weeks after 24 weeks. Consider a blood transfusion if hemoglobin levels fall below 6 g/dL. ([employer] Gr[employer] Practice Bulletin Number 95, December,). Consider Venofer [...] as of this encounter (statuses as of 06/30/2024) Resolved Problems Problem Noted Date Diagnosed Date Resolved Date Abnormal glucose tolerance i n mother complicating 04/19/2023 08/31/2023 Overview (04/19/2023): Failed early glucola. 3hr GTT ordered documented as of this encounter (statuses as of 06/30/2024) Immunizations Name Administration Dates Next Due DTP [...] money to get more. Never true 03/26/2024 [place] Depression Scale Answer Date Recorded [place] Depression Scale Total 6 12/11/2023 The thought [...] No 03/26/2024 Does the household have a [facility] source of income? 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 Not on file Not on file documented as of this encounter Plan of Treatment Upcoming Encounters Date Type Department Care Team (Late st Contact Info) Description 07/03/2024 8:30 AM EST Laboratory Laboratory [facility] [address] [place] [address] [phone] [place] [address] 07/03/2024 9:15 AM EST Hem/Onc Treatment Hematology/Oncology Treatment, [place] [address] [place] [phone] [place], Chair 4 Hem Onc Scenery [address] [place] [address] 07/17/2024 9:00 AM EST Laboratory Laboratory [facility] [address] [place], [place] [address] [place], Lab Scenery [address] [place], [place] [address] 07/17/2024 10:00 AM EST [facility] 200 [facility], [place] [address] [place], Chair 3 Hem Onc Scenery [address] [place], [place] [address] 07/24/2024 7:50 AM EST Laboratory Laboratory [facility] [address] [place], [place] [address] [place], Lab Scenery [address] [place], [place] [address] 07/24/2024 8:30 AM EST Office Visit Hematology/Oncology [facility] [address] [place], [place] [address] Kanu Maravilla MD [address] [facility], [place] [address] 07/24/2024 9:30 AM EST [facility] 200 [facility], [place] [address] [place], Chair 11 Hem Onc Scenery [address] [place], [place] [address] 08/06/2024 9:00 AM EST Telemedicine Genetics HemOnc, [place] [address] [place] [address] Estephania Reyes, [place] [address] [place] [address] Scheduled Orders Name Type Priority Associated Diagnoses Orde r Schedule URINALYSIS, REFLEX TO MICROSCOPIC Lab Routine Dysuria Expected: 06/30/2024, Expires: 06/30/2025 CULTURE, URINE, QUANTITATIVE Lab Routine Dysuria Expected: 06/30/2024, Expires: 06/30/2025 Health Maintenance Due Date Last Done Comments [...] 19+ Years) Aged Out No longer elib based on patient's age to complete this topic documented as of this encounter Medical Devices Implanted Type Area Quality Assurance Monitor Chassis Device Identifier Shelf Expiration Date Model / Serial / Lot Stent Angulo 4fr 11cm - [id number] Implanted:Qty : 1 on 02/08/2024 by Jeffrey Kerr MD at OR [facility] [employer] [id number] 08/16/2028 [id number] / / [id number] Port Implant W8f Poly Cath - [id number] Implanted:Qty : 1 on 05/02/2024 by Iam Curry MD at OR [facility] Right: Chest CR BARD : PERIPHERAL VASCULAR [id number] 05/17/2025 [id number] / / [id number] documented as of this encounter Visit Diagnoses [...] Primary documented in this encounter Care Teams Recruitment Officer Relationship Specialty Start Date End Date Malinda Owens CRNP [address] [place] [address] PCP - General Nurse Practitioner 09/20/23 documented as of this encounter
--- OUTSIDE RECORDS SUMMARY | 2024-09-05 14:33 | External Medical Summary | Summary of Care ---
Author Name Unknown Organization [facility] Address [address] [place] [address] Phone [phone] Care Team Providers Care E M Assembler Name Role Phone Malinda Owens Primary Care Provider [phone] Reason for Visit * Reason Comments Chemotherapy Day 1, cycle 2 keytr uda, paclitaxel, carboplatin * Episode Based [...] HCL Em Ng MD Hematology/Oncology Treatment, [address] [address] Phone: tel: fax: Referral ID Status Reason Start Date Expiration Date V isits Requested Visits Authorized [id number] Authorized 04/30/2024 07/23/[phone] Encounter Details Date Type Department Care Team (Latest Contact Info) Description 05/29/2024 10:30 AM EST Hem/Onc Treatment Hematology/Oncolog y Treatment, [address] [place] [address] [place] Chair 9 Hem Onc [address] [place] [address] Malignant neoplasm of upper-outer [...] complete. Enrolled in Current Health. Plans to garbage pick up man meter from pharmacy today. Instructions provided to [...] and class I obesity. Per review of APPLICATION SECURITY CONSULTANT documentation of 09/25/23, blood glucose values have [...] Recommend nutrition consult with RDN (Registered Dietitian Hansard Reporter). Lifestyle changes are also indicated including optimizing [...] and folate levels and referral to a rocket assembly operator. If hemoglobin levels are below 8 g/dl, we recommend Maternal Medicine ultrasound for growth every 4 weeks after 24 weeks. Consider a blood transfusion if hemoglobin levels fall below 6 g/dL. ([employer] Buy[employer] Practice Bulletin Number 95, December,). Consider [...] money to get more. 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 Patient tolerated well. No complaints voiced. VAD with + blood return, flushed with [...] stable condition. * Marilyn Burnett RN - 05/29/2024 10:50 AM EST Chair 5, patient here for treatment. Patient states that she had some diarrhea and cramping earlierin the week. All symptoms have resolved and patient states that she is feeling up to treatment today. VAD accessed without difficulty, + blood return, flushed with 10 ml NSS and dressing applied. Chemotherapy/Immunotherapy agents: CARBOPLATIN, KEYTRUDA, and TAXOL Consent for chemotherapy drug treatment complete, dated, and signed? yes, date - 04/24/24 Treatment lab parameters met? Yes Has treatment weight changed > than 10%? No Treatment preauthorized? Yes VITALS Filed Vitals: 05/29/24 1027 BP: 112/72 Pulse: 61 Resp: 18 Temp: 36.1 C (97 F) TempSrc: Tympanic SpO2: 96% Weight: 88 kg (194 lb) BP Readings from Last 2 Encounters: 05/29/24 112/72 05/22/24 111/74 Pulse Readings from Last 2 Encounters: 05/29/24 61 05/22/24 77 Resp Readings from Last 2 Encounters: 05/29/24 18 05/22/24 18 SpO2 Readings from Last 2 Encounters: 05/29/24 96% 05/22/24 97% Temp Readings from Last 2 Encounters: 05/29/24 36.1 C (97 F) (Tympanic) 05/22/24 36.4 C (97.6 F) (Tympanic) Urine protein: N/A Patient education [...] Description 07/03/2024 8:30 AM EST Laboratory [facility] [address] [place] [address] [place], Lab Scenery [address] [place] [address] 07/03/2024 9:30 AM EST Hem/Onc Treatment Hematology/Oncology Treatment, [place] [facility] [address] [place], Chair 10 Hem Onc Scenery [address] [place] [address] 07/17/2024 9:00 AM EST Laboratory Laboratory [facility] [place] [address] [place] [address] [place], Lab Scenery [address] [facility] [place] [address] 07/17/2024 10:00 AM EST Hem/Onc Treatment Hematology/Oncology Treatment, [place] [address] [facility] [place], [place] [address] [place], Chair 3 Hem Onc Scenery [address] [place] [address] 07/24/2024 7:50 AM EST Laboratory [facility] [place] [address] [place] [address] [place], Lab Scenery [address] [place] [address] 07/24/2024 8:30 AM EST Office Visit Hematology/Oncology [facility] [place] [address] [place] [address] Kanu Maravilla MD [address] [place], [place] [address] 07/24/2024 9:30 AM EST Hem/Onc Treatment Hematology/Oncology Treatment, [place] [address] [place] [address] [place], Chair 11 Hem Onc Scenery [address] [place] [address] 08/06/2024 9:00 AM EST Telemedicine Genetics HemOnc, [facility] [address] [place] [address] Estephania Reyes, [place] [address] [place] [address] Health Maintenance Due Date Last [...] this encounter Medical Devices Implanted Type Area Overhead Irrigator Device Identifier Shelf Expiration Date Model / Serial / Lot Therese Angulo 4fr 11cm - [id number] Implanted:Qty : 1 on 02/08/2024 by Jeffrey Kerr MD at OR [facility] [employer] [id number] 08/16/2028 [id number] / / [id number] Port Implant W8f Poly Cath - [id number] Implanted:Qty : 1 on 05/02/2024 by Iam Curry MD at OR [facility] Right: Chest CR BARD : PERIPHERAL VASCULAR [id number] 05/17/2025 [id number] / / [id number] documented as of this encounter Visit Diagnoses [...] PROTECT FROM LIGHT, ONCE, 1 dose, On Sun05/29/24 at 1330Indications:Malignant neoplasm of upper-outer quadrant of left breast in female, estrogen receptor negative (HCC),Encounter for antineoplastic chemotherapy,Encounter for prevention of neutropenia due to chemotherapy Start Infusion 05/29/2024 12:52 PM EST 219 mg 510 mL/hr dexAMETHasone (Decadron) tab 12 mg 12 mg, Oral, ONCE, On Sun05/29/24 at 1100, For 1 doseIndications:Malignant neoplasm of upper-outer quadrant of left breast in female, estrogen receptor negative (HCC),Encounter for antineoplastic chemotherapy,Encounter for prevention of neutropenia due to chemotherapy Given 05/29/2024 10:43 AM EST 12 mg diphenhydrAMINE (Benadryl) inj 25 mg 25 mg, IV Push, ONCE, On Bibi 05/29/24 at 1100, For 1 doseIndications:Malignant neoplasm of upper-outer quadrant of left breast in female, estrogen receptor negative (HCC),Encounter for antineoplastic chemotherapy,Encounter for prevention of neutropenia due to chemotherapy Given 05/29/2024 10:40 AM EST 25 mg Famotidine (Pepcid) inj 20 mg 20 mg, IV Push, ONCE, On Sun05/29/24 at 1100, For 1 dose, Give IV push over 2 minutes.Indications:Maligna nt neoplasm of upper-outer quadrant of left breast in female, estrogen receptor negative (HCC),Encounter for antineoplastic chemotherapy,Encounter for prevention of neutropenia due to chemotherapy Given 05/29/2024 10:40 AM EST 20 mg hEParin 100 UNIT/ML Lock Flush inj 500 Units 500 Units (5 mL), IV Lock, PRN Other, IV Flush, Starting on Bibi 05/29/24 at 1026, Until Sun05/29/24 at 1759, For 24 hours, Do not flush if lock, PICC, or central line not in place; IV infusing or unable to flush.Indications:Malignant neoplasm of upper-outer quadrant of left breast in female, estrogen receptor negative (HCC),Encounter for antineoplastic chemotherapy,Encounter for prevention of neutropenia due to chemotherapy Given 05/29/2024 1:29 PM EST 500 Units NSS infusion Intravenous, at 50 mL/hr, PRN, Starting on Bibi 05/29/24 at 1130, Until Sun05/29/24 at 1759, Maintenance lineIndications:Malignant neoplasm of upper-outer quadrant of left breast in female, estrogen receptor negative (HCC),Encounter for antineoplastic chemotherapy,Encounter for prevention of neutropenia due to chemotherapy Start Infusion 05/29/2024 10:39 AM EST 50 mL/hr PACLitaxel (Taxol) 165 mg in NSS 250 mL infusion 165 mg (rounded from 164.8 mg = 80 mg/m2 2.06 m2 Treatment Plan BSA from Recorded weight), IV Piggyback, ONCE, 1 dose, On Bibi 05/29/24 at 1230, Administer over 60 Minutes, Administer through 0.22 micron low protein binding filter!Indications:Malignan t neoplasm of upper-outer quadrant of left breast in female, estrogen receptor negative (HCC),Encounter for antineoplastic chemotherapy,Encounter for prevention of neutropenia due to chemotherapy Start Infusion 05/29/2024 11:45 AM EST 165 mg 255 mL/hr Palonosetron (Aloxi) inj SOLN 0.25 mg 0.25 mg, IV Push, ONCE, On Bibi 05/29/24 at 1100, For 1 dose, Restricted per [facility] antiemetic guidelinesIndications:Jess christie neoplasm of upper-outer quadrant of left breast in female, estrogen receptor negative (HCC),Encounter for antineoplastic chemotherapy,Encounter for prevention of neutropenia due to chemotherapy Given 05/29/2024 10:40 AM EST 0.25 mg Pembrolizumab (Keytruda) 200 mg in NSS 100 mL infusion 200 mg, IV Piggyback, ONCE, 1 dose, On Bibi 05/29/24 at 1200, Administer over 30 Minutes, Infuse through 0.2 micron filter.Indications:Malignan t neoplasm of upper-outer quadrant of left breast in female, estrogen receptor negative (HCC),Encounter for antineoplastic chemotherapy,Encounter for prevention of neutropenia due to chemotherapy Start Infusion 05/29/2024 11:05 AM EST 200 mg 226 mL/hr sodium chloride 0.9 % flush central line 10 mL 10 mL, IV Push, PRN Other, IV Flush, Starting on Bibi 05/29/24 at 1026, Until Bibi 05/29/24 at 1759, For 24 hours, Do not flush if lock, PICC, or central line not in place; IV infusing or unable to flush.Indications:Malignant neoplasm of upper-outer quadrant of left breast in female, estrogen receptor negative (HCC),Encounter for antineoplastic chemotherapy,Encounter for prevention of neutropenia due to chemotherapy Given 05/29/2024 1:29 PM EST 10 mL documented in this encounter Care Teams E M Assembler Relationship Specialty Start Date End Date Malinda Owens CRNP [address] [place] [address] PCP - General Nurse Practitioner 09/20/23 documented as of this encounter
--- OUTSIDE RECORDS SUMMARY | 2024-09-05 14:33 | External Medical Summary | Summary of Care ---
Author Name Unknown Organization [facility] Address [address] [place] [address] Phone [phone] Care Team Providers Care Roustabout Crew Name Role Phone Malinda Owens Primary Care [...] PALONOSETRON HCL Em Ng MD Hematology/Oncology Treatment, [address] [address] Phone: tel: fax: Referral ID Status Reason Start Date Expiration Date V isits Requested Visits Authorized [id number] Authorized 04/30/2024 07/23/2024 999 [id number] Encounter Details Date Type Department Care Team (Latest Contact Info) Description 05/29/2024 10:30 AM EST Hem/Onc Treatment Hematology/Oncolog y Treatment, [address] [place] [address] [place] Chair [address] Hem On[address] [place] [address] Malignant neoplasm of upper-outer [...] and class I obesity. Per review of BREAKDOWN PERSON documentation of 09/25/23, blood glucose values have [...] Recommend nutrition consult with RDN (Registered Dietitian Auto Parts Delivery Driver). Lifestyle changes are also indicated including [...] and folate levels and referral to a logging superintendent. If hemoglobin levels are below 8 g/dl, we recommend Maternal Medicine ultrasound for growth every 4 weeks after 24 weeks. Consider a blood transfusion if hemoglobin levels fall below 6 g/dL. ([employer] and Gasket Supervisor Practice Bulletin Number 95, December,). 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 [...] Description 07/03/2024 8:30 AM EST Laboratory [facility] [address] [place] [address] [place], Lab Scenery [address] [place] [address] 07/03/2024 9:30 AM EST Hem/Onc Treatment Hematology/Oncology Treatment, [place] [facility] [address] [place], Chair 10 Hem Onc Scenery [address] [place] [address] 07/17/2024 9:00 AM EST Laboratory Laboratory [facility] [place] [address] [place] [address] [place], Lab Scenery [address] [facility] [place] [address] 07/17/2024 10:00 AM EST Hem/Onc Treatment Hematology/Oncology Treatment, [place] 200 [facility] [place], [place] [address] [place], Chair 3 Hem Onc Scenery [address] [place] [address] 07/24/2024 7:50 AM EST Laboratory Laboratory [facility] [place] [address] [place] [address] [place], Lab Scenery [address] [place] [address] 07/24/2024 8:30 AM EST Office Visit Hematology/Oncology [facility] [place] [address] [place] [address] Kanu Maravilla MD [address] [place], [place] [address] 07/24/2024 9:30 AM EST Hem/Onc Treatment Hematology/Oncology Treatment, [place] [address] [place] [address] [place], Chair 11 Hem Onc Scenery [address] [place] [address] 08/06/2024 9:00 AM EST Telemedicine Genetics HemOnc, [facility] [address] [place] [address] Estephania Reyes, MS [address] [place] [address] Health Maintenance Due Date Last [...] this encounter Medical Devices Implanted Type Area Drop Count Associate Device Identifier Shelf Expiration Date Model / Serial / Lot Therese Angulo 4fr 11cm - [id number] Implanted:Qty : 1 on 02/08/2024 by Jeffrey Kerr MD at OR [facility] [employer] [id number] 08/16/2028 [id number] / / [id number] Port Implant W8f Poly Cath - [id number] Implanted:Qty : 1 on 05/02/2024 by Iam Curry MD at OR [facility] Right: Chest CR BARD : PERIPHERAL VASCULAR [id number] 05/17/2025 [id number] / / [id number] documented as of this encounter Visit Diagnoses [...] For 1 dose, Restricted per [facility] antiemetic guidelinesIndications:Jess christie neoplasm of upper-outer [...] mL documented in this encounter Care Teams Roustabout Crew Relationship Specialty Start Date End Date Malinda Owens CRNP [address] [place] [address] PCP - General Nurse Practitioner 09/20/23 documented as of this encounter
--- OUTSIDE RECORDS SUMMARY | 2024-09-05 14:33 | External Medical Summary | Summary of Care ---
Author Name Unknown Organization [facility] Address [address] [place] [address] Phone [phone] Care Team Providers Care Bologna Maker Name Role Phone Malinda Owens Primary Care Provider [phone] Reason for Visit * Reason Comments Chemotherapy Day 1, cycle 2 keytr uda, paclitaxel, carboplatin * Episode Based Medications (Routine) - Authorized Specialty Diagnoses / Procedures Referred By Benine gilliland Referred To Contact Diagnoses Malignant neoplasm [...] HCL Em Ng MD Hematology/Oncology Treatment, [address] [address] Phone: tel: fax: Referral ID Status Reason Start Date Expiration Date V isits Requested Visits Authorized [id number] Authorized 04/30/2024 07/23/2024 999 999 Encounter Details Date Type Department Care Team (Latest Contact Info) Description 05/29/2024 10:30 AM EST Hem/Onc Treatment Hematology/Oncolog y Treatment, [address] [place] [address] [place] Chair 9 Hem Onc [address] [place] [address] Malignant neoplasm of upper-outer quadrant of [...] and class I obesity. Per review of FOOD CHEMIST documentation of 09/25/23, blood glucose values have [...] Recommend nutrition consult with RDN (Registered Dietitian Desulfurizer Operator). Lifestyle changes are also indicated including [...] and folate levels and referral to a stitch bonding machine tender helper. If hemoglobin levels are below 8 g/dl, we recommend Maternal Medicine ultrasound for growth every 4 weeks after 24 weeks. Consider a blood transfusion if hemoglobin levels fall below 6 g/dL. ([employer]stetricians and Felting Machine Operator Practice Bulletin Number 95, December,). [...] money to get more. 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 on [...] Description 07/03/2024 8:30 AM EST Laboratory Laboratory [facility] [address] [place] [address] [place], Lab Scenery [address] [place] [address] 07/03/2024 9:30 AM EST Hem/Onc Treatment Hematology/Oncology Treatment, [place] 200 [facility] [address] [place], Chair 10 Hem Onc Scenery [address] [place] [address] 07/17/2024 9:00 AM EST Laboratory Laboratory [facility] [place] [address] [place] [address] [place], Lab Scenery [address] [facility] [place] [address] 07/17/2024 10:00 AM EST Hem/Onc Treatment Hematology/Oncology Treatment, [place] 200 [facility] [place], [place] [address] [place], Chair 3 Hem Onc Scenery [address] [place] [address] 07/24/2024 7:50 AM EST Laboratory Laboratory [facility] [place] [address] [place] [address] [place], Lab Scenery [address] [place] [address] 07/24/2024 8:30 AM EST Office Visit Hematology/Oncology [facility] [place] [address] [place] [address] Kanu Maravilla MD [address] [place], [place] [address] 07/24/2024 9:30 AM EST Hem/Onc Treatment Hematology/Oncology Treatment, [place] [address] [place] [address] [place], Chair 11 Hem Onc Scenery [address] [place] [address] 08/06/2024 9:00 AM EST Telemedicine Genetics HemOnc, [facility] [address] [place] [address] Estephania Reyes, MS [address] [place] [address] Health Maintenance Due Date Last [...] this encounter Medical Devices Implanted Type Area Lab Scientist Device Identifier Shelf Expiration Date Model / Serial / Lot Therese Angulo 4fr 11cm - [id number] Implanted:Qty : 1 on 02/08/2024 by Jeffrey Kerr MD at OR [facility] [employer] Mobile [id number] 08/16/2028 6546 / / [id number] Port Implant W8f Poly Cath - [id number] Implanted:Qty : 1 on 05/02/2024 by Iam Curry MD at OR [facility] Right: Chest CR BARD : PERIPHERAL VASCULAR [id number] 05/17/2025 [id number] / / [id number] documented as of this encounter Visit Diagnoses [...] at 1100, For 1 dose, Restricted per [facility] antiemetic guidelinesIndications:Jess christie neoplasm of upper-outer [...] mL documented in this encounter Care Teams Bologna Maker Relationship Specialty Start Date End Date Malinda Owens CRNP [address] [place] [address] PCP - General Nurse Practitioner 09/20/23 documented as of this encounter
--- OUTSIDE RECORDS SUMMARY | 2024-09-05 14:33 | External Medical Summary | Summary of Care ---
Author Name Unknown Organization [facility] Address [address] [place] [address] Phone [phone] Care Team Providers Care Digital Media Buyer Name Role Phone Malinda Owens Primary Care Provider [phone] Reason for Visit * Reason Comments Chemotherapy Day 1, cycle 2 keytr uda, paclitaxel, carboplatin * Episode Based Medications (Routine) - Authorized Specialty Diagnoses / Procedures Referred By Bennie gilliland Referred To Contact Diagnoses Malignant neoplasm of upper-outer quadrant of left breast in female, estrogen receptor negative (HCC) Encounter for antineoplastic chemotherapy Encounter for prevention of neutropenia due to chemotherapy Procedures WV DOXORUBIC HCL 10 MG VL CHEMO WV CARBOPLATIN INJECTION WV FOSAPREPITANT INJECTION WV INJ PEMBROLIZUMAB WV INJECTION, FULPHILA WV PACLITAXEL INJECTION WV INJ CYCLOPHOSPHAMD AUROMEDIC WV PALONOSETRON HCL Em Ng MD Hematology/Oncology Treatment, [address] [address] Phone: tel: fax: Referral ID Status Reason Start Date Expiration Date V isits Requested Visits Authorized [id number] Authorized 04/30/2024 07/23/2024 999 999 Encounter Details Date Type Department Care Team (Latest Contact Info) Description 05/29/2024 10:30 AM EST Hem/Onc Treatment Hematology/Oncolog y Treatment, [address] [place] [address] [place] Chair 9 Hem Onc [address] [place] [address] Malignant neoplasm of upper-outer quadrant of [...] and class I obesity. Per review of OUTREACH ASSISTANT documentation of 09/25/23, blood glucose values [...] Recommend nutrition consult with RDN (Registered Dietitian Licensed Practical Nurse Instructor). Lifestyle changes are also indicated including optimizing [...] and folate levels and referral to a data integrity analyst. If hemoglobin levels are below 8 g/dl, we recommend Maternal Medicine ultrasound for growth every 4 weeks after 24 weeks. Consider a blood transfusion if hemoglobin levels fall below 6 g/dL. ([employer] Obstetricians and Manual Training Teacher Practice Bulletin Number 95, December,). Consider Venofer [...] money to get more. 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 file [...] Description 07/03/2024 8:30 AM EST Laboratory Laboratory [facility] [address] [place] [address] [place], Lab Scenery [address] [place] [address] 07/03/2024 9:30 AM EST Hem/Onc Treatment Hematology/Oncology Treatment, [place] 200 [facility] [address] [place], Chair 10 Hem Onc Scenery [address] [place] [address] 07/17/2024 9:00 AM EST Laboratory Laboratory [facility] [place] [address] [place] [address] [place], Lab Scenery [address] [facility] [place] [address] 07/17/2024 10:00 AM EST Hem/Onc Treatment Hematology/Oncology Treatment, [place] 200 [facility] [place], [place] [address] [place], Chair 3 Hem Onc Scenery [address] [place] [address] 07/24/2024 7:50 AM EST Laboratory Laboratory [facility] [place] [address] [place] [address] [place], Lab Scenery [address] [place] [address] 07/24/2024 8:30 AM EST Office Visit Hematology/Oncology [facility] [place] [address] [place] [address] Kanu Maravilla MD [address] [place], [place] [address] 07/24/2024 9:30 AM EST Hem/Onc Treatment Hematology/Oncology Treatment, [place] [address] [place] [address] [place], Chair 11 Hem Onc Scenery [address] [place] [address] 08/06/2024 9:00 AM EST Telemedicine Genetics HemOnc, [facility] [address] [place] [address] Estephania Reyes, MS [address] [place] [address] Health Maintenance Due Date Last [...] this encounter Medical Devices Implanted Type Area Sales Force Administrator Device Identifier Shelf Expiration Date Model / Serial / Lot Therese Angulo 4fr 11cm - [id number] Implanted:Qty : 1 on 02/08/2024 by Jeffrey Kerr MD at OR [facility] unrival [id number] 08/16/2028 6546 / / [id number] Port Implant W8f Poly Cath - [id number] Implanted:Qty : 1 on 05/02/2024 by Iam Curry MD at OR [facility] Right: Chest CR BARD : PERIPHERAL VASCULAR [id number] 05/17/2025 [id number] / / [id number] documented as of this encounter Visit Diagnoses [...] at 1100, For 1 dose, Restricted per [facility] antiemetic guidelinesIndications:Jess christie neoplasm [...] mL documented in this encounter Care Teams Digital Media Buyer Relationship Specialty Start Date End Date Malinda Owens CRNP [address] [place] [address] PCP - General Nurse Practitioner 09/20/23 documented as of this encounter
--- OUTSIDE RECORDS SUMMARY | 2024-09-05 14:33 | External Medical Summary | Summary of Care ---
Author Name Unknown Organization [facility] Address [address] [place] [address] Phone [phone] Care Team Providers Care Laboratory Equipment Cleaner Name Role Phone Malinda Owens Primary Care Provider [phone] Reason for Visit * Reason Comments Chemotherapy [...] PALONOSETRON HCL Em Ng MD Hematology/Oncology Treatment, [address] [address] Phone: tel: fax: Referral ID Status Reason Start Date Expiration Date V isits Requested Visits Authorized [id number] Authorized 04/30/2024 07/23/2024 999 999 Encounter Details Date Type Department Care Team (Latest Contact Info) Description 05/29/2024 10:30 AM EST Hem/Onc Treatment Hematology/Oncolog y Treatment, [address] [place] [address] [place] Chair [address] Hem On[address] [place] [address] Malignant neoplasm of upper-outer [...] Enrolled in Current Health. Plans to supervisor extrusion meter from pharmacy today. Instructions provided to [...] and class I obesity. Per review of POURING CRANE OPERATOR documentation of 09/25/23, blood glucose values [...] Recommend nutrition consult with RDN (Registered Dietitian Boarding Room Fixer). Lifestyle changes are also indicated including optimizing [...] and folate levels and referral to a enterprise manager. If hemoglobin levels are below 8 g/dl, we recommend Maternal Medicine ultrasound for growth every 4 weeks after 24 weeks. Consider a blood transfusion if hemoglobin levels fall below 6 g/dL. ([employer] Obstetricians and Bed Maker Practice Bulletin Number 95, December,). Consider [...] money to get more. 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 Not on file [...] Description 07/03/2024 8:30 AM EST Laboratory [facility] [address] [place] [address] [place], Lab Scenery [address] [place] [address] 07/03/2024 9:30 AM EST Hem/Onc Treatment Hematology/Oncology Treatment, [place] 200 [facility] [address] [place], Chair 10 Hem Onc Scenery [address] [place] [address] 07/17/2024 9:00 AM EST Laboratory Laboratory [facility] [place] [address] [place] [address] [place], Lab Scenery [address] [facility] [place] [address] 07/17/2024 10:00 AM EST Hem/Onc Treatment Hematology/Oncology Treatment, [place] 200 [facility] [place], [place] [address] [place], Chair 3 Hem Onc Scenery [address] [place] [address] 07/24/2024 7:50 AM EST Laboratory [facility] [place] [address] [place] [address] [place], Lab Scenery [address] [place] [address] 07/24/2024 8:30 AM EST Office Visit Hematology/Oncology [facility] [place] [address] [place] [address] Kanu Maravilla MD [address] [place], [place] [address] 07/24/2024 9:30 AM EST Hem/Onc Treatment Hematology/Oncology Treatment, [place] [address] [place] [address] [place], Chair 11 Hem Onc Scenery [address] [place] [address] 08/06/2024 9:00 AM EST Telemedicine Genetics HemOnc, [facility] [address] [place] [address] Estephania Reyes, MS [address] [place] [address] Health Maintenance Due Date Last [...] encounter Medical Devices Implanted Type Area Supervisor Heavy Equipment Device Identifier Shelf Expiration Date Model / Serial / Lot Therese Angulo 4fr 11cm - [id number] Implanted:Qty : 1 on 02/08/2024 by Jeffrey Kerr MD at OR [facility] fypio [id number] 08/16/2028 6546 / / [id number] Port Implant W8f Poly Cath - [id number] Implanted:Qty : 1 on 05/02/2024 by Iam Curry MD at OR [facility] Right: Chest CR BARD : PERIPHERAL VASCULAR [id number] 05/17/2025 [id number] / / [id number] documented as of this encounter Visit Diagnoses [...] at 1100, For 1 dose, Restricted per [facility] antiemetic guidelinesIndications:Jess christie neoplasm of upper-outer quadrant [...] mL documented in this encounter Care Teams Laboratory Equipment Cleaner Relationship Specialty Start Date End Date Malinda Owens CRNP [address] [place] [address] PCP - General Nurse Practitioner 09/20/23 documented as of this encounter
--- OUTSIDE RECORDS SUMMARY | 2024-09-05 14:33 | External Medical Summary | Summary of Care ---
Author Name Unknown Organization [facility] Address [address] [place] [address] Phone [phone] Care Team Providers Care Package Sorter Name Role Phone Malinda Owens Primary Care Provider [phone] Reason for Visit * Reason Comments Chemotherapy Day 1, cycle 2 keytr uda, paclitaxel, carboplatin * Episode Based Medications (Routine) - Authorized Specialty Diagnoses / Procedures Referred By Bennie gilliland Referred To Contact Diagnoses Malignant neoplasm of upper-outer quadrant of left breast in female, estrogen receptor negative (HCC) Encounter for antineoplastic chemotherapy Encounter for prevention of neutropenia due to chemotherapy Procedures CT DOXORUBIC HCL [address] CARBOPLATIN INJECTION CT FOSAPREPITANT INJECTION CT INJ PEMBROLIZUMAB CT INJECTION, FULPHILA CT PACLITAXEL INJECTION CT INJ CYCLOPHOSPHAMD AUROMEDIC CT PALONOSETRON HCL Em Ng MD Hematology/Oncology Treatment, [address] [address] Phone: tel: fax: Referral ID Status Reason Start Date Expiration Date V isits Requested Visits Authorized [id number] Authorized 04/30/2024 07/23/2024 999 999 Encounter Details Date Type Department Care Team (Latest Contact Info) Description 05/29/2024 10:30 AM EST Hem/Onc Treatment Hematology/Oncolog y Treatment, [address] [place] [address] [place] Chair [address] Hem [address] [place] [address] Malignant neoplasm of upper-outer [...] Enrolled in Current Health. Plans to pickle maker meter from pharmacy today. Instructions provided [...] and class I obesity. Per review of PUBLICATION SPECIALIST documentation of 09/25/23, blood glucose values [...] Recommend nutrition consult with RDN (Registered Dietitian Metal Fabricating Shop Helper). Lifestyle changes are also indicated including optimizing [...] and folate levels and referral to a watermaster. If hemoglobin levels are below 8 g/dl, we recommend Maternal Medicine ultrasound for growth every 4 weeks after 24 weeks. Consider a blood transfusion if hemoglobin levels fall below 6 g/dL. ([employer] Obstetricians and Record Librarian Practice Bulletin Number 95, December,). Consider Venofer [...] money to get more. 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 Not [...] Description 07/03/2024 8:30 AM EST Laboratory [facility] [address] [place] [address] [place], Lab Scenery [address] [place] [address] 07/03/2024 9:30 AM EST Hem/Onc Treatment Hematology/Oncology Treatment, [place] 200 [facility] [address] [place], Chair 10 Hem Onc Scenery [address] [place] [address] 07/17/2024 9:00 AM EST Laboratory Laboratory [facility] [place] [address] [place] [address] [place], Lab Scenery [address] [facility] [place] [address] 07/17/2024 10:00 AM EST Hem/Onc Treatment Hematology/Oncology Treatment, [place] 200 [facility] [place], [place] [address] [place], Chair 3 Hem Onc Scenery [address] [place] [address] 07/24/2024 7:50 AM EST Laboratory Laboratory [facility] [place] [address] [place] [address] [place], Lab Scenery [address] [place] [address] 07/24/2024 8:30 AM EST Office Visit Hematology/Oncology [facility] [place] [address] [place] [address] Kanu Maravilla MD [address] [place], [place] [address] 07/24/2024 9:30 AM EST Hem/Onc Treatment Hematology/Oncology Treatment, [place] [address] [place] [address] [place], Chair 11 Hem Onc Scenery [address] [place] [address] 08/06/2024 9:00 AM EST Telemedicine Genetics HemOnc, [facility] [address] [place] [address] Estephania Reyes, MS [address] [place] [address] Health Maintenance Due Date Last [...] this encounter Medical Devices Implanted Type Area Licensed Bondsman Device Identifier Shelf Expiration Date Model / Serial / Lot Therese Angulo 4fr 11cm - [id number] Implanted:Qty : 1 on 02/08/2024 by Jeffrey Kerr MD at OR [facility] Peak Rx #[id number] 08/16/2028 6546 / / [id number] Port Implant W8f Poly Cath - [id number] Implanted:Qty : 1 on 05/02/2024 by Iam Curry MD at OR [facility] Right: Chest CR BARD : PERIPHERAL VASCULAR [id number] 05/17/2025 [id number] / / [id number] documented as of this encounter Visit Diagnoses [...] at 1100, For 1 dose, Restricted per [facility] antiemetic guidelinesIndications:Jess christie neoplasm [...] documented in this encounter Care Teams Package Sorter Relationship Specialty Start Date End Date Malinda Owens CRNP [address] [place] [address] PCP - General Nurse Practitioner 09/20/23 documented as of this encounter
--- OUTSIDE RECORDS SUMMARY | 2024-09-05 14:33 | External Medical Summary | Summary of Care ---
Author Name Unknown Organization [facility] Address [address] [place] [address] Phone [phone] Care Team Providers Care Registrar [employer] Name Role Phone Malinda Owens Primary Care Provider [phone] Reason for Visit * Reason Comments Chemotherapy [...] HCL Em Ng MD Hematology/Oncology Treatment, [address] [address] Phone: tel: fax: Referral ID Status Reason Start Date Expiration Date V isits Requested Visits Authorized [id number] Authorized 04/30/2024 07/23/2024 [id number] Encounter Details Date Type Department Care Team (Latest Contact Info) Description 05/29/2024 10:30 AM EST Hem/Onc Treatment Hematology/Oncolog y Treatment, [address] [place] [address] [place] Chair [address] [place] [address] Malignant neoplasm of upper-outer quadrant of [...] and class I obesity. Per review of [employer] documentation of 09/25/23, blood glucose values have [...] Recommend nutrition consult with RDN (Registered Dietitian Hat Measurer). Lifestyle changes are also indicated including optimizing [...] and folate levels and referral to a sound effects supervisor. If hemoglobin levels are below 8 g/dl, we recommend Maternal Medicine ultrasound for growth every 4 weeks after 24 weeks. Consider a blood transfusion if hemoglobin levels fall below 6 g/dL. ([employer] Decontamination Technician Practice Bulletin Number 95, December,). Consider [...] money to get more. 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 [...] Description 07/03/2024 8:30 AM EST Laboratory Laboratory [facility] [address] [place] [address] [place], Lab Scenery [address] [place] [address] 07/03/2024 9:30 AM EST Hem/Onc Treatment [facility]ematology[facility]cology [facility], [place] [facility] [address] [place], Chair 10 Hem Onc Scenery [address] [place] [address] 07/17/2024 9:00 AM EST Laboratory Laboratory [facility] [place] [address] [place] [address] [place], Lab Scenery [address] [facility] [place] [address] 07/17/2024 10:00 AM EST Hem/Onc Treatment Hematology/Oncology Treatment, [place] 200 [facility] [place], [place] [address] [place], Chair 3 Hem Onc Scenery [address] [place] [address] 07/24/2024 7:50 AM EST Laboratory Laboratory [facility] [place] [address] [place] [address] [place], Lab Scenery [address] [place] [address] 07/24/2024 8:30 AM EST Office Visit Hematology/Oncology [facility] [place] [address] [place] [address] Kanu Maravilla MD [address] [place], [place] [address] 07/24/2024 9:30 AM EST Hem/Onc Treatment Hematology/Oncology Treatment, [place] [address] [place] [address] [place], Chair 11 Hem Onc Scenery [address] [place] [address] 08/06/2024 9:00 AM EST Telemedicine Genetics HemOnc, [facility] [address] [place] [address] Estephania Reyes, [place] [address] [place] [address] Health Maintenance Due Date Last [...] this encounter Medical Devices Implanted Type Area Contact Lens Polisher Device Identifier Shelf Expiration Date Model / Serial / Lot Therese Angulo 4fr 11cm - [id number] Implanted:Qty : 1 on 02/08/2024 by Jeffrey Kerr MD at OR [facility] [employer] [id number] 08/16/2028 [id number] / / [id number] Port Implant W8f Poly Cath - [id number] Implanted:Qty : 1 on 05/02/2024 by Iam Curry MD at OR [facility] Right: Chest CR BARD : PERIPHERAL VASCULAR [id number] 05/17/2025 [id number] / / [id number] documented as of this encounter Visit Diagnoses [...] at 1100, For 1 dose, Restricted per [facility] antiemetic guidelinesIndications:Jess christie neoplasm of [...] mL documented in this encounter Care Teams Registrar College Or University Relationship Specialty Start Date End Date Malinda Owens CRNP [address] [place] [address] PCP - General Nurse Practitioner 09/20/23 documented as of this encounter
--- OUTSIDE RECORDS SUMMARY | 2024-09-05 14:33 | External Medical Summary | Summary of Care ---
Author Name Unknown Organization [facility] Address [address] [place] [address] Phone [phone] Care Team Providers Care Project Geophysicist Name Role Phone Malinda Owens Primary Care Provider [phone] Reason for Visit * Reason Comments Chemotherapy Day 1, cycle 2 keytr uda, paclitaxel, carboplatin * Episode Based Medications (Routine) - Authorized Specialty Diagnoses / Procedures Referred By Bennie gilliland Referred To Contact Diagnoses Malignant neoplasm of upper-outer quadrant of left breast in female, estrogen receptor negative (HCC) Encounter for antineoplastic chemotherapy Encounter for prevention of neutropenia due to chemotherapy Procedures NC DOXORUBIC HCL 10 MG VL CHEMO NC CARBOPLATIN INJECTION NC FOSAPREPITANT INJECTION NC INJ PEMBROLIZUMAB NC INJECTION, FULPHILA NC PACLITAXEL INJECTION NC INJ CYCLOPHOSPHAMD AUROMEDIC NC PALONOSETRON HCL Em Ng MD Hematology/Oncology Treatment, [address] [address] Phone: tel: fax: Referral ID Status Reason Start Date Expiration Date V isits Requested Visits Authorized [id number] Authorized 04/30/2024 07/23/2024 [id number] Encounter Details Date Type Department Care Team (Latest Contact Info) Description 05/29/2024 10:30 AM EST Hem/Onc Treatment Hematology/Oncolog y Treatment, [address] [place] [address] [place] Chair [address] [place] [address] Malignant neoplasm of upper-outer quadrant of [...] complete. Enrolled in Current Health. Plans to shredder picker meter from pharmacy today. Instructions provided [...] and class I obesity. Per review of SUR[facility]IST[facility] documentation of 09/25/23, blood glucose values [...] Recommend nutrition consult with RDN (Registered Dietitian Engine Maintenance Mechanic). Lifestyle changes are also indicated including [...] and folate levels and referral to a sack keeper. If hemoglobin levels are below 8 g/dl, we recommend Maternal Medicine ultrasound for growth every 4 weeks after 24 weeks. Consider a blood transfusion if hemoglobin levels fall below 6 g/dL. ([employer] and Battery Plate Assembler Practice Bulletin Number 95, December,). Consider Venofer [...] money to get more. 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 on file Not [...] Description 07/03/2024 8:30 AM EST Laboratory Laboratory [facility] [address] [place] [address] [place], Lab Scenery [address] [place] [address] 07/03/2024 9:30 AM EST Hem/Onc Treatment [facility]ematology/Oncology Treatment, [place] [facility] [address] [place], Chair 10 Hem Onc Scenery [address] [place] [address] 07/17/2024 9:00 AM EST Laboratory Laboratory [facility] [place] [address] [place] [address] [place], Lab Scenery [address] [facility] [place] [address] 07/17/2024 10:00 AM EST Hem/Onc Treatment Hematology/Oncology Treatment, [place] [address] [facility] [place], [place] [address] [place], Chair 3 Hem Onc Scenery [address] [place] [address] 07/24/2024 7:50 AM EST Laboratory Laboratory [facility] [place] [address] [place] [address] [place], Lab Scenery [address] [place] [address] 07/24/2024 8:30 AM EST Office Visit Hematology/Oncology [facility] [place] [address] [place] [address] Kanu Maravilla MD [address] [place], [place] [address] 07/24/2024 9:30 AM EST Hem/Onc Treatment Hematology/Oncology Treatment, [place] [address] [place] [address] [place], Chair 11 Hem Onc Scenery [address] [place] [address] 08/06/2024 9:00 AM EST Telemedicine Genetics [facility]Onc, [facility] [address] [place] [address] Estephania Reyes, [place] [address] [place] [address] Health Maintenance Due Date Last [...] this encounter Medical Devices Implanted Type Area Car Attendant Device Identifier Shelf Expiration Date Model / Serial / Lot Therese Angulo 4fr 11cm - [id number] Implanted:Qty : 1 on 02/08/2024 by Jeffrey Kerr MD at OR [facility] [employer] [id number] 08/16/2028 [id number] / / [id number] Port Implant W8f Poly Cath - [id number] Implanted:Qty : 1 on 05/02/2024 by Iam Curry MD at OR [facility] Right: Chest CR BARD : PERIPHERAL VASCULAR [id number] 05/17/2025 [id number] / / [id number] documented as of this encounter Visit Diagnoses [...] at 1100, For 1 dose, Restricted per [facility] antiemetic guidelinesIndications:Jess christie neoplasm of upper-outer [...] mL documented in this encounter Care Teams Project Geophysicist Relationship Specialty Start Date End Date Malinda Owens CRNP [address] [place] [address] PCP - General Nurse Practitioner 09/20/23 documented as of this encounter
--- OUTSIDE RECORDS SUMMARY | 2024-09-05 14:34 | External Medical Summary | Summary of Care ---
Author Name Unknown Organization [facility] Address [address] [place] [address] Phone [phone] Care Team Providers Care Bus Starter Name Role Phone Malinda Owens Primary Care Provider [phone] Reason for Visit * Reason Comments Chemotherapy C2D15 Carboplatin, T axol; Lupron * Episode Based Medications (Routine) - [...] PALONOSETRON HCL Em Ng MD Hematology/Oncology Treatment, [address] [address] Phone: tel: fax: Referral ID Status Reason Start Date Expiration Date V isits Requested Visits Authorized [id number] Authorized 04/30/2024 07/23/2024 [id number] Encounter Details Date Type Department Care Team (Latest Contact Info) Description 06/12/2024 11:00 AM EST Hem/Onc Treatment Hematology/Oncolog y Treatment, [address] [address] [place], Chair 6 Hem On[address] [place] [address] Malignant neoplasm of upper-outer quadrant of left breast in female, estrogen receptor negative (HCC)*; Encounter for antineoplastic chemotherapy; Encounter for prevention of neutropenia due to chemotherapy; Encounter for fertility preservation procedure; Suppression of ovarian secretion Allergies No known active allergiesdocumented as of this encounter (statuses as of 06/26/2024) Medications 19 29-1 MG Oral Tablet Chewable [...] for Nausea. 30 Tablet 3 05/08/20 24 Active dexAMETHasone 4 MG Oral Tablet (Decadron)Indicati ons:Encounter for antineoplastic chemotherapy,Jess christie neoplasm of upper-outer quadrant of left breast in female, estrogen receptor negative (HCC) Take two tablets the night before and morning of each chemotherapy treatment 40 Tablet 05/22/20 Active documented as of this encounter (statuses as of 06/26/2024) Active Problems Problem Noted Date Diagnosed Date [...] Enrolled in Current Health. Plans to warehouse order picker meter from pharmacy today. Instructions provided [...] and class I obesity. Per review of [employer] documentation of 09/25/23, blood glucose values have [...] Recommend nutrition consult with RDN (Registered Dietitian Safe And Vault Installer). Lifestyle changes are also indicated including [...] and folate levels and referral to a bb shot packer. If hemoglobin levels are below 8 g/dl, we recommend Maternal Medicine ultrasound for growth every 4 weeks after 24 weeks. Consider a blood transfusion if hemoglobin levels fall below 6 g/dL. ([employer] and Pr[employer] Print [employer] Practice Bulletin Number 95, December,). Consider Venofer [...] as of this encounter (statuses as of 06/26/2024) Resolved Problems Problem Noted Date Diagnosed Date Resolved Date Abnormal glucose tolerance i n mother complicating 04/19/2023 08/31/2023 Overview (04/19/2023): Failed early glucola. 3hr GTT ordered documented as of this encounter (statuses as of 06/26/2024) Immunizations Name Administration Dates Next Due DTP [...] money to get more. 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 on file Not on file documented as of this encounter Last Filed Vital Signs Vital Sign Reading Time Taken Comments Blood Pressure 111/60 06/12/2024 10:50 AM EST Pulse 98 06/12/2024 10:50 AM EST Temperature 36.5 C (97.7 F) 06/12/2024 10:[address] Respiratory Rate 16 06/12/2024 10:50 AM EST Oxygen Saturation 97% 06/12/2024 10:50 AM EST Inhaled Oxygen Concentration - - Weight 87.8 kg (193 lb 9.6 oz) 06/12/2024 10:50 AM EST Height - - Body Mass Index 28.58 05/02/2024 10:35 AM EST documented in this encounter Nursing Notes * Ciara Boyce RN - 06/12/2024 1:52 PM EST Goals: Patient will remain free from injury. Possible barriers to meeting goals: ambulation with IV pole Stability of the patient: Moderately stable - low risk of patient condition declining or worsening Summary regarding today's goals: Met: patient without injury during treatment today. Pt tolerated ordered meds well. No complaints. Discharged in stable condition. * Ciara Boyce RN - 06/12/2024 12:58 PM EST Chair 5 Pt here for C2D15 Carboplatin & Taxol; Lupron injection. Pt reports she has been generally feeling better with last treatment. Chemotherapy/Immunotherapy agents: CARBOPLATIN, LUPRON, and TAXOL Consent for chemotherapy drug treatment complete, dated, and signed? yes, date - 04/24/24 Treatment lab parameters met? Yes Has treatment weight changed > than 10%? No Treatment preauthorized? Yes VITALS Filed Vitals: 06/12/24 1050 BP: 111/60 Pulse: 98 Resp: 16 Temp: 36.5 C (97.7 F) TempSrc: Tympanic SpO2: 97% Weight: 87.8 kg (193 lb 9.6 oz) BP Readings from Last 2 Encounters: 06/12/24 111/60 06/05/24 100/68 Pulse Readings from Last 2 Encounters: 06/12/24 98 06/05/24 91 Resp Readings from Last 2 Encounters: 06/12/24 16 06/05/24 16 SpO2 Readings from Last 2 Encounters: 06/12/24 97% 06/05/24 96% Temp Readings from Last 2 Encounters: 06/12/24 36.5 C (97.7 F) (Tympanic) 06/05/24 36.6 C (97.9 F) Urine protein: N/A Patient education completed [...] using the heat function. PRE-TREATMENT ASSESSMENT: NEURO: Headaches - occasional, denies neuropathy CV/RESP: denies symptoms GI/: nausea: occasional and diarrhea: continues but improved, PRN immodium effective OTHER: States vaginal bleeding and cramping has resolved PAIN: 0 Safety and Risk for Injury Patient will remain free from injury. Ensure appropriate safety devices are available. Provide and maintain safe environment. documented in this encounter Plan of Treatment Upcoming Encounters Date Type Department Care Team (Late st Contact Info) Description 07/03/2024 8:30 AM EST Laboratory Laboratory [facility] [address] [place] [phone] [place], Lab Scenery [address] [place], [place] [address] 07/03/2024 9:30 AM EST Hem/Onc Treatment Hematology/Oncology Treatment[address], [place] [address] [place], Chair 10 Hem Onc Scenery 200 [facility] [place] [address] 07/10/2024 7:40 AM EST Laboratory Laboratory [facility] [address] [place] [address] [place], Lab Scenery [address] [place], [place] [address] 07/10/2024 8:45 AM EST Hem/Onc Treatment Hematology/Oncology [address], [place] [address] [place], Chair 9 Hem Onc Scenery 200 [facility] [place], [place] [address] 07/24/2024 8:30 AM EST Office Visit Hematology/Oncology [facility] [place] [address] [place], [place] [phone] Kanu Maravilla MD [address] [place], [place] [address] 08/06/2024 9:00 AM EST Telemedicine Genetics HemOnc, [facility] [address] [place] [address] Estephania Reyes, [place] [address] [place] [address] Health Maintenance Due Date Last [...] this encounter Medical Devices Implanted Type Area Cna Pct Device Identifier Shelf Expiration Date Model / Serial / Lot Stent Kev 4fr 11cm - [id number] Implanted:Qty : 1 on 02/08/2024 by Jeffrey Kerr MD at OR [facility] [employer] [id number] 08/16/2028 [id number] / / [id number] Port Implant W8f Poly Cath - [id number] Implanted:Qty : 1 on 05/02/2024 by Iam Curry MD at OR [facility] Right: Chest CR BARD : PERIPHERAL VASCULAR [id number] 05/17/2025 [id number] / / [id number] documented as of this encounter Visit Diagnoses [...] FROM LIGHT, ONCE, 1 dose, On Bibi 06/12/24 at 1300Indications:Jess christie neoplasm of upper-outer quadrant of left breast in female, estrogen receptor negative (HCC),Encounter for antineoplastic chemotherapy,Encounte r for prevention of neutropenia due to chemotherapy Start Infusion 06/12/2024 1:09 PM EST 219 mg 510 mL/hr dexAMETHasone (Decadron) tab 12 mg 12 mg, Oral, ONCE, On Bibi 06/12/24 at 1145, For 1 doseIndications:Jess christie neoplasm of upper-outer quadrant of left breast in female, estrogen receptor negative (HCC),Encounter for antineoplastic chemotherapy,Encounte r for prevention of neutropenia due to chemotherapy Given 06/12/2024 11:41 AM EST 12 mg diphenhydrAMINE (Benadryl) inj 25 mg 25 mg, IV Push, ONCE, On Bibi 06/12/24 at 1145, For 1 doseIndications:Jess christie neoplasm of upper-outer quadrant of left breast in female, estrogen receptor negative (HCC),Encounter for antineoplastic chemotherapy,Encounte r for prevention of neutropenia due to chemotherapy Given 06/12/2024 11:43 AM EST 25 mg Famotidine (Pepcid) inj 20 mg 20 mg, IV Push, ONCE, On Bibi 06/12/24 at 1145, For 1 dose, Give IV push over 2 minutes.Indications:M alignant neoplasm of upper-outer quadrant of left breast in female, estrogen receptor negative (HCC),Encounter for antineoplastic chemotherapy,Encounte r for prevention of neutropenia due to chemotherapy Given 06/12/2024 11:45 AM EST 20 mg hEParin 100 UNIT/ML Lock Flush inj 500 Units 500 Units (5 mL), IV Lock, PRN Other, IV Flush, Starting on Bibi 06/12/24 at 1129, Until Bibi 06/12/24 at 1754, For 24 hours, Do not flush if lock, PICC, or central line not in place; IV infusing or unable to flush.Indications:Mal ignant neoplasm of upper-outer quadrant of left breast in female, estrogen receptor negative (HCC),Encounter for antineoplastic chemotherapy,Encounte r for prevention of neutropenia due to chemotherapy Given 06/12/2024 1:47 PM EST 500 Units Leuprolide Acetate (Lupron) inj 3.75 mg 3.75 mg, Intramuscular, ONCE, On Bibi 06/12/24 at 1415, For 1 doseIndications:Jess nant neoplasm of upper-outer quadrant of left breast in female, estrogen receptor negative (HCC),Encounter for fertility preservation procedure,Suppression of ovarian secretion Given 06/12/2024 1:19 PM EST 3.75 mg Dorsogluteal Left NSS infusion Intravenous, at 50 mL/hr, PRN, Starting on Bibi 06/12/24 at 1230, Until Bibi 06/12/24 at 1754, Maintenance lineIndications:Jess nant neoplasm of upper-outer quadrant of left breast in female, estrogen receptor negative (HCC),Encounter for antineoplastic chemotherapy,Encounte r for prevention of neutropenia due to chemotherapy Start Infusion 06/12/2024 11:33 AM EST 50 mL/hr PACLitaxel (Taxol) 165 mg in NSS 250 mL infusion 165 mg (rounded from 164.8 mg = 80 mg/m2 2.06 m2 Treatment Plan BSA from Recorded weight), IV Piggyback, ONCE, 1 dose, On Bibi 06/12/24 at 1200, Administer over 60 Minutes, Administer through 0.22 micron low protein binding filter!Indications:Ma lignant neoplasm of upper-outer quadrant of left breast in female, estrogen receptor negative (HCC),Encounter for antineoplastic chemotherapy,Encounte r for prevention of neutropenia due to chemotherapy Start Infusion 06/12/2024 12:05 PM EST 165 mg 255 mL/hr Palonosetron (Aloxi) inj SOLN 0.25 mg 0.25 mg, IV Push, ONCE, On Bibi 06/12/24 at 1145, For 1 dose, Restricted per S antiemetic guidelinesIndications :Malignant neoplasm of upper-outer quadrant of left breast in female, estrogen receptor negative (HCC),Encounter for antineoplastic chemotherapy,Encounte r for prevention of neutropenia due to chemotherapy Given 06/12/2024 11:41 AM EST 0.25 mg sodium chloride 0.9 % flush central line 10 mL 10 mL, IV Push, PRN Other, IV Flush, Starting on Bibi 06/12/24 at 1129, Until Bibi 06/12/24 at 1754, For 24 hours, Do not flush if lock, PICC, or central line not in place; IV infusing or unable to flush.Indications:Mal ignant neoplasm of upper-outer quadrant of left breast in female, estrogen receptor negative (HCC),Encounter for antineoplastic chemotherapy,Encounte r for prevention of neutropenia due to chemotherapy Given 06/12/2024 1:47 PM EST 10 mL documented in this encounter Care Teams Bus Starter Relationship Specialty Start Date End Date Malinda Owens CRNP [address] [place] [address] PCP - General Nurse Practitioner 09/20/23 documented as of this encounter
--- OUTSIDE RECORDS SUMMARY | 2024-09-05 14:34 | External Medical Summary | Summary of Care ---
Author Name Unknown Organization [facility] Address [address] [place] [address] Phone [phone] Care Team Providers Care Ged Tutor Name Role Phone Malinda Owens Primary Care Provider [phone] Reason for Visit * Reason Comments Chemotherapy [...] HCL Em Ng MD Hematology/Oncology Treatment, [address] [address] Phone: tel: fax: Referral ID Status Reason Start Date Expiration Date V isits Requested Visits Authorized [id number] Authorized 04/30/2024 07/23/2024 [id number] Encounter Details Date Type Department Care Team (Latest Contact Info) Description 06/12/2024 11:00 AM EST Hem/Onc Treatment Hematology/Oncolog y Treatment, [address] [address] [place], Chair [address] Hem On[address] [place] [address] Malignant neoplasm of upper-outer quadrant of [...] and class I obesity. Per review of LARGE ANIMAL HUSBANDRY TECHNICIAN documentation of 09/25/23, blood glucose values [...] Recommend nutrition consult with RDN (Registered Dietitian Chemical Equipment Repairer). Lifestyle changes are also indicated including [...] and folate levels and referral to a dry cleaner hand. If hemoglobin levels are below 8 g/dl, we recommend Maternal Medicine ultrasound for growth every 4 weeks after 24 weeks. Consider a blood transfusion if hemoglobin levels fall below 6 g/dL. ([employer] and Sample Selector Practice Bulletin Number 95, December,). Consider Venofer [...] money to get more. 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 [...] Description 07/03/2024 8:30 AM EST Laboratory Laboratory [facility] [address] [place] [phone] [place], Lab Scenery [address] [place], [place] [address] 07/03/2024 9:30 AM EST Hem/Onc Treatment Hematology/Oncology Treatment[address], [place] [address] [place], Chair 10 Hem Onc Scenery 200 [facility] [place] [address] 07/10/2024 7:40 AM EST Laboratory Laboratory [facility] [address] [place] [address] [place], Lab Scenery [address] [place], [place] [address] 07/10/2024 8:45 AM EST Hem/Onc Treatment Hematology/Oncology [address], [place] [address] [place], Chair 9 Hem Onc Scenery 200 [facility] [place], [place] [address] 07/24/2024 8:30 AM EST Office Visit Hematology/Oncology [facility] [place] [address] [place], [place] [phone] Kanu Maravilla MD [address] [place], [place] [address] 08/06/2024 9:00 AM EST Telemedicine Genetics HemOnc, [facility] [address] [place] [address] Estephania Reyes, [place] [address] [place] [address] Health Maintenance Due Date Last [...] this encounter Medical Devices Implanted Type Area Instrumentation Technician Device Identifier Shelf Expiration Date Model / Serial / Lot Stent Kev 4fr 11cm - [id number] Implanted:Qty : 1 on 02/08/2024 by Jeffrey Kerr MD at OR [facility] [employer] [id number] 08/16/2028 [id number] / / [id number] Port Implant W8f Poly Cath - [id number] Implanted:Qty : 1 on 05/02/2024 by Iam Curry MD at OR [facility] Right: Chest CR BARD : PERIPHERAL VASCULAR [id number] 05/17/2025 [id number] / / [id number] documented as of this encounter Visit Diagnoses [...] mL documented in this encounter Care Teams Ged Tutor Relationship Specialty Start Date End Date Malinda Owens CRNP [address] [place] [address] PCP - General Nurse Practitioner 09/20/23 documented as of this encounter
--- OUTSIDE RECORDS SUMMARY | 2024-09-05 14:34 | External Medical Summary | Summary of Care ---
Author Name Unknown Organization [facility] Address [address] [place] [address] Phone [phone] Care Team Providers Care Sheet Metal Shop Foreman Name Role Phone Malidna Owens Primary Care Provider [phone] Reason for Visit * Reason Comments Chemotherapy C2D15 Carboplatin, T axol; Lupron * Episode Based Medications (Routine) - Authorized Specialty Diagnoses / Procedures Referred By Contjeffery t Referred To Contact Diagnoses Malignant neoplasm of upper-outer quadrant of left breast in female, estrogen receptor negative (HCC) Encounter for antineoplastic chemotherapy Encounter for prevention of neutropenia due to chemotherapy Procedures SD DOXORUBIC HCL 10 MG VL CHEMO SD CARBOPLATIN INJECTION SD FOSAPREPITANT INJECTION SD INJ PEMBROLIZUMAB SD INJECTION, FULPHILA SD PACLITAXEL INJECTION SD INJ CYCLOPHOSPHAMD AUROMEDIC SD PALONOSETRON HCL Em Ng MD Hematology/Oncology Treatment, [address] [address] Phone: tel: fax: Referral ID Status Reason Start Date Expiration Date V isits Requested Visits Authorized [id number] Authorized 04/30/2024 07/23/2024 999 [id number] Encounter Details Date Type Department Care Team (Latest Contact Info) Description 06/12/2024 11:00 AM EST Hem/Onc Treatment Hematology/Oncolog y Treatment, [address] [address] [place], Chair [address] Hem [address] [place] [address] Malignant neoplasm of upper-outer [...] Enrolled in Current Health. Plans to pick and shovel man meter from pharmacy today. Instructions provided [...] and class I obesity. Per review of SCIENTIFIC AFFAIRS MANAGER documentation of 09/25/23, blood glucose values [...] Recommend nutrition consult with RDN (Registered Dietitian Mineral Technologist). Lifestyle changes are also indicated including optimizing [...] and folate levels and referral to a pipe recovery specialist. If hemoglobin levels are below 8 g/dl, we recommend Maternal Medicine ultrasound for growth every 4 weeks after 24 weeks. Consider a blood transfusion if hemoglobin levels fall below 6 g/dL. ([employer] Obstetricians and Sales Stock Associate Practice Bulletin Number 95, December,). Consider Venofer [...] money to get more. 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 [...] Description 07/03/2024 8:30 AM EST Laboratory Laboratory [facility] [address] [place] [address] [place], Lab Scenery [address] [place], [place] [address] 07/03/2024 9:30 AM EST Hem/Onc Treatment Hematology/Oncology Treatment[address], [place] [address] [place], Chair 10 Hem Onc Scenery 200 [facility] [place] [address] 07/10/2024 7:40 AM EST Laboratory Laboratory [facility] [address] [place] [address] [place], Lab Scenery [address] [place], [place] [address] 07/10/2024 8:45 AM EST Hem/Onc Treatment Hematology/Oncology [address], [place] [address] [place], Chair 9 Hem Onc Scenery 200 [facility] [place], [place] [address] 07/24/2024 8:30 AM EST Office Visit Hematology/Oncology [facility] [place] [address] [place], [place] [address] Kanu Maravilla MD [address] [place], [place] [address] 08/06/2024 9:00 AM EST Telemedicine Genetics HemOnc, [facility] [address] [place] [address] Estephania Reyes, [place] [address] [place] [address] Health Maintenance Due Date Last [...] this encounter Medical Devices Implanted Type Area Consumer Loan Officer Device Identifier Shelf Expiration Date Model / Serial / Lot Stent Kev 4fr 11cm - [id number] Implanted:Qty : 1 on 02/08/2024 by Jeffrey Kerr MD at OR [facility] [employer] [id number] 08/16/2028 [id number] / / [id number] Port Implant W8f Poly Cath - [id number] Implanted:Qty : 1 on 05/02/2024 by Iam Curry MD at OR [facility] Right: Chest CR BARD : PERIPHERAL VASCULAR [id number] 05/17/2025 [id number] / / [id number] documented as of this encounter Visit Diagnoses [...] mL documented in this encounter Care Teams Sheet Metal Shop Foreman Relationship Specialty Start Date End Date Malinda Owens CRNP [address] [place] [address] PCP - General Nurse Practitioner 09/20/23 documented as of this encounter
--- OUTSIDE RECORDS SUMMARY | 2024-09-05 14:34 | External Medical Summary | Summary of Care ---
Author Name Unknown Organization [facility] Address [address] [place] [address] Phone [phone] Care Team Providers Care Sheriffs Officer Name Role Phone Malinda Owens Primary Care Provider [phone] Reason for Visit * Reason Comments Chemotherapy [...] HCL Em Ng MD Hematology/Oncology Treatment, [address] [address] Phone: tel: fax: Referral ID Status Reason Start Date Expiration Date V isits Requested Visits Authorized [id number] Authorized 04/30/2024 07/23/2024 999 [id number] Encounter Details Date Type Department Care Team (Latest Contact Info) Description 06/12/2024 11:00 AM EST Hem/Onc Treatment Hematology/Oncolog y Treatment, [address] [address] [place], Chair [address] [place] [address] Malignant neoplasm of upper-outer [...] in Current Health. Plans to pick up driver meter from pharmacy today. [...] and class I obesity. Per review of SR. MEDIA MANAGER documentation of 09/25/23, blood glucose values [...] Recommend nutrition consult with RDN (Registered Dietitian General Service Technician). Lifestyle changes are also indicated including [...] levels and referral to a director of business continuity. If hemoglobin levels are below 8 g/dl, we recommend Maternal Medicine ultrasound for growth every 4 weeks after 24 weeks. Consider a blood transfusion if hemoglobin levels fall below 6 g/dL. ([employer] Obstetricians and Poultry Hatchery Man Practice Bulletin Number 95, December,). Consider Venofer [...] money to get more. 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 on file [...] Description 07/03/2024 8:30 AM EST Laboratory Laboratory [facility] [address] [place] [address] [place], Lab Scenery [address] [place], [place] [address] 07/03/2024 9:30 AM EST Hem/Onc Treatment Hematology/Oncology [address], [place] [address] [place], Chair 10 Hem Onc Scenery 200 [facility] [place] [address] 07/10/2024 7:40 AM EST Laboratory Laboratory [facility] [address] [place] [address] [place], Lab Scenery [address] [place], [place] [address] 07/10/2024 8:45 AM EST Hem/Onc Treatment Hematology/Oncology [address], [place] [address] [place], Chair 9 Hem Onc Scenery 200 [facility] [place], [place] [address] 07/24/2024 8:30 AM EST Office Visit Hematology/Oncology [facility] [place] [address] [place], [place] [address] Kanu Maravilla MD [address] [place], [place] [address] 08/06/2024 9:00 AM EST Telemedicine Genetics [facility]Onc, [facility] [address] [place] [address] Estephania Reyes, [place] [address] [place] [address] Health Maintenance [...] this encounter Medical Devices Implanted Type Area Court Recording Monitor Device Identifier Shelf Expiration Date Model / Serial / Lot Stent Kev 4fr 11cm - [id number] Implanted:Qty : 1 on 02/08/2024 by Jeffrey Kerr MD at OR [facility] [employer] [id number] 08/16/2028 6546 / / [id number] Port Implant W8f Poly Cath - [id number] Implanted:Qty : 1 on 05/02/2024 by Iam Curry MD at OR [facility] Right: Chest CR BARD : PERIPHERAL VASCULAR [id number] 05/17/2025 [id number] / / [id number] documented as of this encounter Visit Diagnoses [...] mL documented in this encounter Care Teams Sheriffs Officer Relationship Specialty Start Date End Date Malinda Owens CRNP [address] [place] [address] PCP - General Nurse Practitioner 09/20/23 documented as of this encounter
--- OUTSIDE RECORDS SUMMARY | 2024-09-05 14:34 | External Medical Summary | Summary of Care ---
Author Name Unknown Organization [facility] Address [address] [place] [address] Phone [phone] Care Team Providers Care Class C Truck Driver Name Role Phone Malinda Owens Primary Care Provider [phone] Reason for Visit * Reason Comments Outpatient Testing Encounter Details Date Type Department Care Team (Late st Contact Info) Description 06/26/2024 9:00 AM EST Laboratory Laboratory [facility] [address] [place] [phone] [facility] [address] [facility] [place] [address] Malignant neoplasm of upper-outer quadrant of left breast in female, estrogen receptor negative (HCC) Allergies No known active allergiesdocumented as of this encounter (statuses as of 06/26/2024) Medications 29-1 MG Oral Tablet Chewable Take [...] chemotherapy treatment 40 Tablet 05/22/20 24 Active documented as of this encounter (statuses [...] and class I obesity. Per review of PROCEDURE RN documentation of 09/25/23, blood glucose values have [...] Recommend nutrition consult with RDN (Registered Dietitian Mac Operator). Lifestyle changes are also indicated including [...] and folate levels and referral to a hearing specialist. If hemoglobin levels are below 8 g/dl, we recommend Maternal Medicine ultrasound for growth every 4 weeks after 24 weeks. Consider a blood transfusion if hemoglobin levels fall below 6 g/dL. ([employer] Obstetricians and Marine Oiler Practice Bulletin Number 95, December,). Consider Venofer [...] money to get more. Never true 03/26/2024 [place] Depression Scale Answer Date Recorded [place] Depression Scale Total 6 12/11/2023 The thought [...] Care Team (Late st Contact Info) Description 06/26/2024 10:00 AM EST Hem/Onc Treatment Hematology/Oncology Treatment, [place] [address] [place] [address] [place], Chair 1 Hem Onc Scenery [address] [place] [address] Arrived 07/03/2024 8:30 AM EST Laboratory Laboratory Scenery [facility] [address] [place], [place] [address] [place], Lab Scenery [address] [place] [address] 07/03/2024 9:30 AM EST Hem[facility] 200 [facility], [place] [address] [place], Chair 10 Hem Onc Scenery [address] [place], [place] [address] 07/10/2024 7:40 AM EST Laboratory Laboratory [facility] [address] [place], [place] [address] [place], Lab Scenery [address] [place], [place] [address] 07/10/2024 8:45 AM EST Hem[facility]Onc [facility] 200 [facility], [place] [address] [place], Chair 9 Hem Onc Scenery [address] [facility] [place], [place] [address] 07/24/2024 8:30 AM EST Office Visit Hematology/Oncology [facility] [address] [place], [place] [address] Kanu Maravilla MD [address] [place], [place] [address] 08/06/2024 9:00 AM EST Telemedicine Genetics HemOnc, [facility] [address] [place] [address] Estephania Reyes, [place] [address] [place] [address] Pending Results Name Type Priority Associated Diagnoses Date /Time CBC WITH WBC DIFFERENTIAL Lab STAT Malignant neoplasm of upper-outer quadrant of left breast in female, estrogen receptor negative (HCC) 06/26/2024 9:14 AM EST COMPREHENSIVE METABOLIC PANEL Lab STAT Malignant neoplasm of upper-outer quadrant of left breast in female, estrogen receptor negative (HCC) 06/26/2024 9:14 AM EST HCG QUALITATIVE, URINE Lab STAT Malignant neoplasm of upper-outer quadrant of left breast in female, estrogen receptor negative (HCC) 06/26/2024 9:14 AM EST CBC Lab STAT Malignant neoplasm of upper-outer quadrant of left breast in female, estrogen receptor negative (HCC) 06/26/2024 9:14 AM EST DIFFERENTIAL, AUTOMATED Lab STAT Malignant neoplasm of upper-outer quadrant of left breast in female, estrogen receptor negative (HCC) 06/26/2024 9:14 AM EST Health Maintenance Due Date Last [...] encounter Medical Devices Implanted Type Area Supervisor Brine Device Identifier Shelf Expiration Date Model / Serial / Lot Therese Angulo 4fr 11cm - [id number] Implanted:Qty : 1 on 02/08/2024 by Jeffrey Kerr MD at OR [facility] [employer] [facility] [id number] 08/16/2028 6546 / / [id number] Port Implant W8f Poly Cath - [id number] Implanted:Qty : 1 on 05/02/2024 by Iam Curry MD at OR [facility] Right: Chest CR BARD : PERIPHERAL VASCULAR [id number] 05/17/2025 [id number] / / [id number] documented as of this encounter Visit Diagnoses [...] (HCC) documented in this encounter Care Teams Class C Truck Driver Relationship Specialty Start Date End Date Malinda Owens CRNP 132 [facility] [place] [address] PCP - General Nurse Practitioner 09/20/23 documented as of this encounter
--- OUTSIDE RECORDS SUMMARY | 2024-09-05 14:34 | External Medical Summary | Summary of Care ---
Author Name Unknown Organization [facility] Address [address] [place] [facility] [facility] [place] [address] Phone [phone] Care Team Providers Care Paper Pattern Inspector Name Role Phone Owens Ridgemargaret AD Primary Care Provider [phone] Reason for Visit * Reason Onset Date Comments Medication Refill 06/26/2024 Encounter Details Date Type Department Care Team (Late st Contact Info) Description 06/26/2024 Refill Hematology/Oncology [facility] [place] 200 [facility] [place] [phone] Kanu Maravilla MD 200 [facility] [place] [address] Malignant neoplasm of upper-outer quadrant of left [...] Nausea. 30 Tablet 3 06/26/19 25 Active Ondansetron HCl 8 MG Oral Tablet [...] and class I obesity. Per review of OFFSET LABEL REWINDER documentation of 09/25/23, blood glucose values have [...] nutrition consult with RDN (Registered Dietitian Quality Assurance Clerk). Lifestyle changes are also indicated including [...] and folate levels and referral to a residential child care counselor. If hemoglobin levels are below 8 g/dl, we recommend Maternal Medicine ultrasound for growth every 4 weeks after 24 weeks. Consider a blood transfusion if hemoglobin levels fall below 6 g/dL. ([employer] Obstetricians and Medical Instrument Cable Fabricator Practice Bulletin Number 95, December,). Consider [...] money to get more. 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 * Telephone Encounter - Laron Emerson RN - 06/26/2024 1:46 PM EST Pt requesting refill for Zofran. Pended. documented in this encounter Plan of Treatment Upcoming Encounters Date Type Department Care Team (Late st Contact Info) Description 07/03/2024 8:30 AM EST Laboratory [facility] [address] [place] [address] [place], Lab Scenery [address] [place], [place] [address] 07/03/2024 9:30 AM EST Hem[facility]Onc [facility] [place] [address] [place], Chair 10 Hem Onc Scenery [address] [place] [address] 07/17/2024 9:00 AM EST Laboratory Laboratory [facility] [address] [place] [address] [place], Lab Scenery [address] [place] [address] 07/17/2024 10:00 AM EST Hem[facility]Onc Treatment [facility] [address] [place] [address] [place], Chair 3 Hem Onc Scenery [address] [place] [address] 07/24/2024 7:50 AM EST Laboratory Laboratory Scenery [facility] [address] [place] [address] [place], Lab Scenery [address] [place] [address] 07/24/2024 8:30 AM EST Office Visit Hematology/Oncology [facility] [place] [address] [place], [place] [phone] Kanu Maravilla MD 200 [facility] [place], [place] [address] 07/24/2024 9:30 AM EST Hem/Onc Treatment Hematology/Oncology Treatment, [place] [address] [place], [place] [address] [place], Chair 11 Hem Onc [facility] 200 [facility] [place], [place] [address] 08/06/2024 9:00 AM EST Telemedicine Genetics HemOnc, [facility] [address] [place] [address] Estephania Reyes, MD [address] [place] [address] Health Maintenance Due Date Last [...] this encounter Medical Devices Implanted Type Area Candy Roller Device Identifier Shelf Expiration Date Model / Serial / Lot Stent Kev 4fr 11cm - [id number] Implanted:Qty : 1 on 02/08/2024 by Jeffrey Kerr MD at OR [facility] [employer] [id number] 08/16/2028 6546 / / [id number] Port Implant W8f Poly Cath - [id number] Implanted:Qty : 1 on 05/02/2024 by Iam Curry MD at OR [facility] Right: Chest CR BARD : PERIPHERAL VASCULAR [id number] 05/17/2025 [id number] / / [id number] documented as of this encounter Visit Diagnoses [...] (HCC) documented in this encounter Care Teams Paper Pattern Inspector Relationship Specialty Start Date End Date Malinda Owens CRNP 132 [facility] [place] [address] PCP - General Nurse Practitioner 09/20/23 documented as of this encounter
--- OUTSIDE RECORDS SUMMARY | 2024-09-05 14:34 | External Medical Summary | Summary of Care ---
Author Name Unknown Organization [facility] Address [address] [place] [address] Phone [phone] Care Team Providers Care High School Band Teacher Name Role Phone Malinda Owens Primary Care Provider [phone] Reason for Visit * Reason Comments Chemotherapy [...] HCL Em Ng MD Hematology/Oncology Treatment, [address] [address] Phone: tel: fax: Referral ID Status Reason Start Date Expiration Date V isits Requested Visits Authorized [id number] Authorized 04/30/2024 07/23/2024 [id number] Encounter Details Date Type Department Care Team (Latest Contact Info) Description 06/12/2024 11:00 AM EST Hem/Onc Treatment Hematology/Oncolog y Treatment, [address] [address] [place], Chair [address] Hem [address] [place] [address] Malignant neoplasm of upper-outer [...] complete. Enrolled in Current [employer]. Plans to sales department supervisor meter from pharmacy today. Instructions provided [...] class I obesity. Per review of HIGH LEAD YARDER documentation of 09/25/23, blood glucose values have [...] nutrition consult with RDN (Registered Dietitian Retail Seasonal Specialist). Lifestyle changes are also indicated including [...] and folate levels and referral to a ground instructor advanced. If hemoglobin levels are below 8 g/dl, we recommend Maternal Medicine ultrasound for growth every 4 weeks after 24 weeks. Consider a blood transfusion if hemoglobin levels fall below 6 g/dL. ([employer] and Voice Writing Reporter Practice Bulletin Number 95, December,). Consider Venofer [...] money to get more. 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 [place] [address] 07/10/2024 7:40 AM EST Laboratory Laboratory [facility] [address] [place] [address] [place], Lab Scenery [address] [place], [place] [address] 07/10/2024 8:45 AM EST Hem/Onc Treatment Hematology/Oncology Treatment[address], [place] [address] [place], Chair 9 Hem Onc Sc[address] [facility] [place], [place] [address] 07/24/2024 8:30 AM EST Office Visit Hematology/Oncology [facility] [place] [address] [place], [place] [id number] Kanu Maravilla MD [address] [place], [place] [address] 08/06/2024 9:00 AM EST Telemedicine Genetics HemOnc, [facility] [address] [place] [address] Estephania Reyes, [place] [address] [place] [address] Health Maintenance Due Date Last [...] encounter Medical Devices Implanted Type Area Route Vending Machine Servicer Device Identifier Shelf Expiration Date Model / Serial / Lot Stent Kev 4fr 11cm - [id number] Implanted:Qty : 1 on 02/08/2024 by Jeffrey Kerr MD at OR [facility] [employer] [id number] 08/16/2028 [id number] / / [id number] Port Implant W8f Poly Cath - [id number] Implanted:Qty : 1 on 05/02/2024 by Iam Curry MD at OR [facility] Right: Chest CR BARD : PERIPHERAL VASCULAR [id number] 05/17/2025 [id number] / / [id number] documented as of this encounter Visit Diagnoses [...] mL documented in this encounter Care Teams High School Band Teacher Relationship Specialty Start Date End Date Malinda Owens CRNP [address] [place] [id number] PCP - General Nurse Practitioner 09/20/23 documented as of this encounter
--- OUTSIDE RECORDS SUMMARY | 2024-09-05 14:34 | External Medical Summary | Summary of Care ---
Author Name Unknown Organization [facility] Address [address] [place] [address] Phone [phone] Care Team Providers Care Sandblasting Supervisor Name Role Phone Malinda Owens Primary Care Provider [phone] Reason for Visit * Reason Comments Chemotherapy [...] PALONOSETRON HCL Em Ng MD Hematology/Oncology Treatment, [address] [address] Phone: tel: fax: Referral ID Status Reason Start Date Expiration Date V isits Requested Visits Authorized [id number] Authorized 04/30/2024 07/23/[id number] Encounter Details Date Type Department Care Team (Latest Contact Info) Description 06/12/2024 11:00 AM EST Hem/Onc Treatment Hematology/Oncolog y Treatment, [address] [address] [place], Chair [address] [place] [address] Malignant neoplasm of upper-outer quadrant of [...] and class I obesity. Per review of AVIONIC TECHNICIAN documentation of 09/25/23, blood glucose values [...] Recommend nutrition consult with RDN (Registered Dietitian Supervisor Shellfish Farming). Lifestyle changes are also indicated including optimizing [...] and folate levels and referral to a geriatric nurse. If hemoglobin levels are below 8 g/dl, we recommend Maternal Medicine ultrasound for growth every 4 weeks after 24 weeks. Consider a blood transfusion if hemoglobin levels fall below 6 g/dL. ([employer] and Candles Pourer Practice Bulletin Number 95, December,). Consider Venofer [...] to get more. 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 [...] Description 07/03/2024 8:30 AM EST Laboratory Laboratory [facility] [address] [place] [phone] [place], Lab Scenery [address] [place], [place] [address] 07/03/2024 9:30 AM EST Hem/Onc Treatment Hematology/Oncology Treatment[address], [place] [address] [place], Chair 10 Hem Onc Scenery 200 [facility] [place] [address] 07/10/2024 7:40 AM EST Laboratory Laboratory [facility] [address] [place] [address] [place], Lab Scenery [address] [place], [place] [address] 07/10/2024 8:45 AM EST Hem/Onc Treatment Hematology/Oncology Treatment[address], [place] [address] [place], Chair 9 Hem Onc Scenery 200 [facility] [place], [place] [address] 07/24/2024 8:30 AM EST Office Visit Hematology/Oncology [facility] [place] [address] [place], [place] [phone] Kanu Maravilla MD [address] [place], [place] [address] 08/06/2024 9:00 AM EST Telemedicine Genetics HemOnc, [facility] [address] [place] [address] Estephania Reyes, [place] [address] [place] [address] Health Maintenance Due Date Last [...] this encounter Medical Devices Implanted Type Area Wound Care Technician Device Identifier Shelf Expiration Date Model / Serial / Lot Stent Kev 4fr 11cm - [id number] Implanted:Qty : 1 on 02/08/2024 by Jeffrey Kerr MD at OR [facility] [employer] [id number] 08/16/2028 [id number] / / [id number] Port Implant W8f Poly Cath - [id number] Implanted:Qty : 1 on 05/02/2024 by Iam Curry MD at OR [facility] Right: Chest CR BARD : PERIPHERAL VASCULAR [id number] 05/17/2025 [id number] / / [id number] documented as of this encounter Visit Diagnoses [...] mL documented in this encounter Care Teams Sandblasting Supervisor Relationship Specialty Start Date End Date Malinda Owens CRNP [address] [place] [address] PCP - General Nurse Practitioner 09/20/23 documented as of this encounter
--- OUTSIDE RECORDS SUMMARY | 2024-09-05 14:34 | External Medical Summary | Summary of Care ---
Author Name Unknown Organization [facility] Address [address] [place] [address] Phone [phone] Care Team Providers Care Counselor Supervisor Name Role Phone Malinda Owens Primary Care Provider [phone] Reason for Visit * Reason Comments Chemotherapy [...] PALONOSETRON HCL Em Ng MD Hematology/Oncology Treatment, [address] [address] Phone: tel: fax: Referral ID Status Reason Start Date Expiration Date V isits Requested Visits Authorized [id number] Authorized 04/30/2024 07/23/[phone] Encounter Details Date Type Department Care Team (Latest Contact Info) Description 06/26/2024 10:00 AM EST Hem/Onc Treatment Hematology/Oncolog y Treatment, [address] [address] [place], Chair [address] Hem On[address] [place] [address] Malignant neoplasm of upper-outer [...] and class I obesity. Per review of REVERSE UNIT OPERATOR documentation of 09/25/23, blood glucose values [...] Recommend nutrition consult with RDN (Registered Dietitian Packaging Designer). Lifestyle changes are also indicated including optimizing [...] and folate levels and referral to a hotel yardperson. If hemoglobin levels are below 8 g/dl, we recommend Maternal Medicine ultrasound for growth every 4 weeks after 24 weeks. Consider a blood transfusion if hemoglobin levels fall below 6 g/dL. ([employer] and Clinical Professor Practice Bulletin Number 95, December,). Consider Venofer [...] money to get more. 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 on file Not [...] Description 07/03/2024 8:30 AM EST Laboratory Laboratory [facility] [address] [place], [place] [phone] [place], Lab Scenery [address] [place], [place] [address] 07/03/2024 9:30 AM EST Hem/Onc Treatment Hematology/Oncology Treatment, [place] 200 [facility], [place] [address] [place], Chair 10 Hem Onc Scenery [address] [place], [place] [address] 07/17/2024 9:00 AM EST Laboratory Laboratory [facility] [place] [address] [place], [place] [address] [place], Lab Scenery [address] [place], [place] [address] 07/17/2024 10:00 AM EST Hem/Onc Treatment Hematology/Oncology Treatment, [place] 200 [facility], [place] [address] [place], Chair 3 Hem Onc Scenery [address] [place], [place] [address] 07/24/2024 7:50 AM EST Laboratory Laboratory [facility] [place] [address] [place], [place] [address] [place], Lab Scenery [address] [place] [address] 07/24/2024 8:30 AM EST Office Visit Hematology/Oncology [facility] [place] [address] [place], [place] [address] Kanu Maravilla MD [address] [place], [place] [address] 07/24/2024 9:30 AM EST Hem/Onc Treatment Hematology/Oncology Treatment, [place] [address] [place] [address] [place], Chair 11 Hem Onc Scenery [address] [place] [address] 08/06/2024 9:00 AM EST Telemedicine Genetics [facility], [facility] [address] [place] [address] Estephania Reyes, [place] [address] [place] [address] Health Maintenance Due Date Last Done Comments [...] this encounter Medical Devices Implanted Type Area Medical Esthetician Device Identifier Shelf Expiration Date Model / Serial / Lot Therese Angulo 4fr 11cm - [id number] Implanted:Qty : 1 on 02/08/2024 by Jeffrey Kerr MD at OR [facility] [employer] [facility] [id number] 08/16/2028 6546 / / [id number] Port Implant W8f Poly Cath - [id number] Implanted:Qty : 1 on 05/02/2024 by Iam Curry MD at OR [facility] Right: Chest CR BARD : PERIPHERAL VASCULAR [id number] 05/17/2025 [id number] / / [id number] documented as of this encounter Visit Diagnoses [...] ONCE PRN Other, Hypersensitivity Reaction, Starting on Sun06/26/24 at 1054, Until Sun06/27/24 at 1053, For 24 hoursIndications:Malignant neoplasm of upper-outer quadrant of left breast in female, estrogen receptor negative (HCC),Encounter for antineoplastic chemotherapy,Encounter for prevention of neutropenia due to chemotherapy EPINEPHrine 1 MG/ML inj 0.3 mg 0.3 mg, Intramuscular, ONCE PRN Other, Hypersensitivity Reaction or Anaphylaxis, Starting on Sun06/26/24 at 1054, Until Sun06/27/24 at 1053, For 24 hoursIndications:Malignant neoplasm of upper-outer quadrant of left breast in female, estrogen receptor negative (HCC),Encounter for antineoplastic chemotherapy,Encounter for prevention of neutropenia due to chemotherapy hEParin 100 UNIT/ML Lock Flush inj 500 Units 500 Units (5 mL), IV Lock, PRN Other, IV Flush, Starting on Sun06/26/24 at 1054, Until Sun06/27/24 at 1053, For 24 hours, Do not flush if lock, PICC, or central line not in place; IV infusing or unable to flush.Indications:Malignant neoplasm of upper-outer quadrant of left breast in female, estrogen receptor negative (HCC),Encounter for antineoplastic chemotherapy,Encounter for prevention of neutropenia due to chemotherapy Given 06/26/2024 1:19 PM EST 500 Units Hydrocortisone Sod Suc (PF) (Solu-Cortef) inj 100 mg 100 mg, IV Push, ONCE PRN Other, Hypersensitivity Reaction, Starting on Sun06/26/24 at 1054, Until Sun06/27/24 at 1053, For 24 hoursIndications:Malignant neoplasm of upper-outer quadrant of left breast in female, estrogen receptor negative (HCC),Encounter for antineoplastic chemotherapy,Encounter for prevention of neutropenia due to chemotherapy LORAzepam (Ativan) tab 0.5 mg 0.5 mg, Oral, ONCE PRN Anxiety, Nausea, Starting on Sun06/26/24 at 1200, Until DiscontinuedIndications:Nancy gnant neoplasm of upper-outer quadrant of left breast in female, estrogen receptor negative (HCC),Encounter for antineoplastic chemotherapy,Encounter for prevention of neutropenia due to chemotherapy meperidine (Demerol) 25 MG/ML inj 25 mg 25 mg, Intramuscular, ONCE PRN Shivering, Chills/Rigors from acute infusion reaction, Starting on Sun06/26/24 at 1054, Until Sun06/27/24 at 1053, For 24 hoursIndications:Malignant neoplasm of upper-outer quadrant of left breast in female, estrogen receptor negative (HCC),Encounter for antineoplastic chemotherapy,Encounter for prevention of neutropenia due to chemotherapy NSS infusion Intravenous, at 50 mL/hr, PRN, Starting on Sun06/26/24 at 1200, Until Discontinued, Maintenance lineIndications:Malignant neoplasm of upper-outer quadrant of left breast in female, estrogen receptor negative (HCC),Encounter for antineoplastic chemotherapy,Encounter for prevention of neutropenia due to chemotherapy Start Infusion 06/26/2024 11:10 AM EST 50 mL/hr oxygen GAS Inhalation, OXYGEN, First dose on Sun06/26/24 at 1130, Until Discontinued, Device/Managed by: Low Flow Device, [...] Push, PRN Other, IV Flush, Starting on Sun06/26/24 at 1054, Until Sun06/27/24 at 1053, For 24 hours, Do not flush if lock, PICC, or central line not in place; IV infusing or unable to flush.Indications:Malignant neoplasm of upper-outer quadrant of left breast in female, estrogen receptor negative (HCC),Encounter for antineoplastic chemotherapy,Encounter for prevention of neutropenia due to chemotherapy Given 06/26/2024 1:19 PM EST 10 mL Inactive Administered Medications - up to 3 most recent administrations Medication Order MAR Action Action Date Dose Rate Site CARBOplatin (Paraplatin) 219 mg in D5W 250 mL infusion 219 mg (rounded from 219.15 mg, Target AUC = 1.5), IV Piggyback, at 510 mL/hr Administer over 30 Minutes, PROTECT FROM LIGHT, ONCE, 1 dose, On Sun06/26/24 at 1400Indications:Malignant neoplasm of upper-outer quadrant of left breast in female, estrogen receptor negative (HCC),Encounter for antineoplastic chemotherapy,Encounter for prevention of neutropenia due to chemotherapy Start Infusion 06/26/2024 12:45 PM EST 219 mg 510 mL/hr dexAMETHasone (Decadron) tab 12 mg 12 mg, Oral, ONCE, On Sun06/26/24 at 1130, For 1 doseIndications:Malignant neoplasm of [...] Given 06/26/2024 11:11 AM EST 20 mg PACLitaxel (Taxol) 165 mg in NSS 250 mL infusion 165 mg (rounded from 164.8 mg = 80 mg/m2 2.06 m2 Treatment Plan BSA from Recorded weight), IV Piggyback, ONCE, 1 dose, On Bibi 06/26/24 at 1300, Administer over 60 Minutes, Administer through 0.22 micron low protein binding filter!Indications:Malignant neoplasm of upper-outer quadrant of left breast in female, estrogen receptor negative (HCC),Encounter for antineoplastic chemotherapy,Encounter for prevention of neutropenia due to chemotherapy Start Infusion 06/26/2024 11:39 AM EST 165 mg 255 mL/hr Palonosetron (Aloxi) inj SOLN 0.25 mg 0.25 mg, IV Push, ONCE, On Bibi 06/26/24 at 1130, For 1 dose, Restricted per [facility] antiemetic guidelinesIndications:Malign ant neoplasm of upper-outer quadrant of left breast in female, estrogen receptor negative (HCC),Encounter for antineoplastic chemotherapy,Encounter for prevention of neutropenia due to chemotherapy Given 06/26/2024 11:11 AM EST 0.25 mg documented in this encounter Care Teams Counselor Supervisor Relationship Specialty Start Date End Date Malinda Owens CRNP [address] [place] [address] PCP - General Nurse Practitioner 09/20/23 documented as of this encounter
--- OUTSIDE RECORDS SUMMARY | 2024-09-05 14:35 | External Medical Summary | Summary of Care ---
Author Name Unknown Organization [facility] Address [address] [place] [address] Phone [phone] Care Team Providers Care Powertrain Design Engineer Name Role Phone Malinda Owens Primary Care Provider [phone] Reason for Visit * Reason Comments Re-Check Chemotherapy Encounter Details Date Type Department Care Team (Late st Contact Info) Description 06/19/2024 9:30 AM EST Office Visit Hematology/Oncology [facility] [address] [facility] [address] Macarena Valerio CRNP [address] [place] [address] Malignant neoplasm of upper-outer quadrant of left breast in female, estrogen receptor negative (HCC)* Allergies No known active allergiesdocumented as of this encounter (statuses as of 06/19/2024) Medications 19 29-1 MG Oral Tablet Chewable [...] as of this encounter (statuses as of 06/19/2024) Active Problems Problem Noted Date Diagnosed Date [...] complete. Enrolled in Current Health. Plans to picked edge sewing machine operator meter from pharmacy today. Instructions [...] and class I obesity. Per review of CHECK SERVICES CLERK documentation of 09/25/23, blood glucose values [...] Recommend nutrition consult with RDN (Registered Dietitian Automation Engineering Technician). Lifestyle changes are also indicated including [...] folate levels and referral to a shipping and receiving assistant. If hemoglobin levels are below 8 g/dl, we recommend Maternal Medicine ultrasound for growth every 4 weeks after 24 weeks. Consider a blood transfusion if hemoglobin levels fall below 6 g/dL. ([employer] [facility] Ang[employer] Practice Bulletin Number 95, December,). Consider [...] as of this encounter (statuses as of 06/19/2024) Resolved Problems Problem Noted Date Diagnosed Date Resolved Date Abnormal glucose tolerance i n mother complicating 04/19/2023 08/31/2023 Overview (04/19/2023): Failed early glucola. 3hr GTT ordered documented as of this encounter (statuses as of 06/19/2024) Immunizations Name Administration Dates Next Due DTP [...] money to get more. 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 file documented as of this encounter Last Filed Vital Signs Vital Sign Reading Time Taken Comments Blood Pressure 106/72 06/19/2024 9:39 AM EST Pulse 86 06/19/2024 9:39 AM EST Temperature 36.2 C (97.2 F) 06/19/2024 9:39 AM ES T Respiratory Rate - - Oxygen Saturation 95% 06/19/2024 9:39 AM EST Inhaled Oxygen Concentration - - Weight 87.1 kg (192 lb) 06/19/2024 9:39 AM EST Height - - Body Mass Index 28.34 05/02/2024 10:35 AM EST documented in this encounter Progress Notes * Macarena Valerio CRNP - 06/19/2024 9:26 AM EST Hematology/Oncology Outpatient [facility] [address] [place] [address] Name: Yuli Gutierrez Date: 06/19/2024 CHIEF COMPLAINT: Yuli Gutierrez is a 29 year old female patient here today for f/u visit She will transfer to Dr. Maravilla on 07/24/23 From Patient chart confirmed with patient. From Dr. Ng note 05/08/24. HEMATOLOGY/ONCOLOGY DIAGNOSIS: Left Triple Negative Breast Cancer Cancer Staging Clinical Stage 1 - T1N0 DATE OF DIAGNOSIS: 04/15/24 CURRENT TREATMENT: Pembrolizumab D1 + Carboplatin AUC1.5 D1,8,15 + Paclitaxel 80 mg/m2 D1,8,15 q21 Days C1-4 followed by Pembrolizumab + AC q21 Days (05/08/24 - ) ONCOLOGY HISTORY: Found upon self examination when she felt a firm, nontender, mobile, approximately 1 in round mass approximately at 3:00 o'clock. position in her left breast on 04/08/2024. Patient is , gave to her daughter via s/p spontaneous vaginal delivery on 10/30/2023 and was lactating/. Patient had a previous miscarriage in 2022. Her most recent was complicated with gestational diabetes mellitus. The palpated lump in her left breast has not been painful and is not associated with bloody nipple discharge or skin changes. GYNECOLOGIC HISTORY: LMP: No LMP recorded. Menarche at age: 12 Menopause at age: n/a Number of children: Patient's age at first live : 28 Did you breast feed any of your children: Yes Ever take oral contraceptives? No Ever take estrogen? No 04/09/2024: She underwent ultrasound of the left breast as well as bilateral diagnostic mammographyon 04/09/2024 that showed heterogeneously dense left breast with a 1.8 cm mass located in the posterior outer breast, corresponding to the area of the palpable abnormality. Right breast mammography showed heterogeneously dense right breast with no evidence of suspicious masses, calcification or other abnormalities. Limited Ultrasound of the left breast showed homogeneous fibroglandular echotexture with an irregular hypoechoic mass measuring 1.8 x 1.1 x 1.7 cm at the 2-3 o'clock position and 12 cm from the nipple. No axillary adenopathy seen. 04/15/2024: Ultrasound-guided core needle biopsy of the 18 x 17 x 11 mm hypoechoic left breast masswas performed along with tissue marker/clip placement. Pathology consistent with invasive mammary (ductal) carcinoma, NOS, grade 3.. Estrogen receptor: Negative. Progesterone receptor:Negative. HER-2/trent oncoprotein: Negative by IHC 04/15/2024: PATHOLOGY: Invasive mammary (ductal) carcinoma, NOS, grade 3.. Estrogen receptor: Negative. Progesterone receptor:Negative. HER-2/trent oncoprotein: Negative by IHC A. Breast, left, 2:00 / 3:00 position, 12 cm from nipple, core biopsy: Invasive mammary carcinoma of no special type, grade 3. The lesion exhibits some medullary features. Comment: The lesion exhibits some medullary features; however, correlation with the subsequent excisional specimen is required. Biomarkers will be reported separately. Interval History: PET/CT 05/01/24: IMPRESSION FDG avid left outer breast mass, consistent with biopsy-proven malignancy. No evidence of FDG avid locoregional or metastatic disease. MRI Breast 05/07/24: Impression Left upper outer quadrant posterior depth biopsy-proven breast carcinoma. Appropriate action recommended at this time. Superficial right lower inner quadrant 4 mm enhancing focus. Finding may represent a sebaceous cyst. Correlation with clinical exam is recommended. BI-RADS Category: 6 - Known Biopsy-Proven Malignancy. HISTORY OF PRESENT ILLNESS: Yuli Gutierrez is a 29 year old female with a history as outlined above. Currently here for f/u visit today and consideration for C3 D1 of treatment. Patient overall feeling well. C/o fatigue. Mild intermittent sore throat. Denies N/V. Had tingling in both feet for the first time last night. It is resolved now. Mild nausea at times with good use of Zofran. Having loose stools intermittently and does use imodium. Has loose stool after eating. Requests something stronger for diarrhea. No abdominal pain. No urinary issues except some mild urinary hesitancy just right after treatment. Can not feel breast mass. She wonders about doing an image now to check on improvement. No recent vaginal bleeding. Past Medical History: Diagnosis Date History of gestational diabetes Motion sickness Past Surgical History: Procedure Laterality Date DENTAL SURGERY PROCEDURE NEC Age 12 ERCP, DIAGNOSTIC, SPECIMEN COLLECTION N/A 02/08/2024 choledocholithiasis, complete removal/one plastic pancreatic stent placed into ventral pancreatic duct/ENDOSCOPIC RETROGRADE CHOLANGIOPANCREATOGRAPHY (ERCP) DIAGNOSTIC performed by Jeffrey Kerr MD at OR [facility] INSER TUNN ACC DEV;5 YRS/OLDER Right 05/02/2024 INSERT TUNNELED CENTRAL VENOUS ACCESS WITH SUBQ PORT performed by Iam Curry MD at OR [facility] US GUIDED BREAST BIOPSY LEFT Left 04/15/2024 Social History Socioeconomic History Marital status: Spouse name: Not on file Number of children: Not on file Years of education: Not on file Highest education level: Not on file Occupational History 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 (Adult - for ages 18 years and over): No Are you able to get enough food for your family? (Household - for ages 0-17 years): Not on file Does your family need food this week? (Household - for ages 0-17 years): Not on file Do you always have enough food for your family? (Household - for ages 0-17 years): Not on file Transportation Needs: No Transportation Needs (03/26/2024) Transportation [...] Stability Do you currently live in a chcf or have no steady place to sleep [...] - for ages0-17 years): Not on file Review of patient's allergies indicates: No Known Allergies Current Outpatient Medications Medication Sig Dispense Refill [...] day before fulphila injection 20 Tablet 0 Ondansetron HCl 8 MG Oral Tablet (Zofran) Take 1 Tablet by mouth every 8 hours as needed for Nausea. 30 Tablet 3 dexAMETHasone 4 MG Oral Tablet (Decadron) Take two tablets the night before and morning of each chemotherapy treatment 40 Tablet 0 No current facility-administered medications for this visit. REVIEW OF SYSTEMS: See HPI - otherwise negative OBJECTIVE: Filed Vitals: 06/19/24 0939 BP: 106/72 Pulse: 86 Temp: 36.2 C (97.2 F) TempSrc: Tympanic SpO2: 95% Weight: 87.1 kg (192 lb) Wt Readings from Last 5 Encounters: 06/19/24 87.1 kg (192 lb) 06/12/24 87.8 kg (193 lb 9.6 oz) 06/05/24 87.2 kg (192 lb 3.2 oz) 05/29/24 88 kg (194 lb) 05/22/24 87.4 kg (192 lb 11.2 oz) PHYSICAL EXAM: ECOG: Performance Status 0 = 100% Normal Activity General Appearance: Normal - Healthy appearing patient in no acute distress HEENT: Normal - No oral or pharyngeal masses, ulceration or thrush noted, no sinus tenderness Lymph Nodes: Normal - No palpable lymph nodes in the neck or supraclavicular areas Lungs/Thorax: Normal - Clear to auscultation Heart: Normal - Regular rate and rhythm, normal S1, S2, no appreciable murmurs, rubs, gallops Pulses/Extremities: Normal - 2+ throughout and symmetrical, no edema Abdomen: Normal - Soft, nontender, bowel sounds present, no appreciable hepatosplenomegaly, no palpable masses Musculoskeletal: Normal - No pain on palpation over bony prominence, no joint or bony deformity Neurologic: Normal - Grossly intact LABS: Results for orders placed or performed in visit on 06/19/24 COMPREHENSIVE METABOLIC PANEL Result Value Ref Range BUN 16 6 - 20 mg/dL CREATININE 0.8 0.5 - 1.0 mg/dL EGFR >90 >=60 mL/min SODIUM 139 135 - 146 mmol/L POTASSIUM 4.3 3.5 - 5.1 mmol/L CHLORIDE 103 98 - 107 mmol/L CO2 20 (L) 22 - 32 mmol/L ANION GAP 16 (H) 7 - 15 mmol/L GLUCOSE 131 (H) 70 - 120 mg/dL Albumin 4.6 3.8 - 5.0 g/dL AST 11 10 - 35 U/L Alkaline Phosphatase 91 35 - 130 U/L Bilirubin, Total 0.3 <=1.2 mg/dL CALCIUM 10.1 8.4 - 10.2 mg/dL Protein 7.7 6.0 - 8.3 g/dL ALT 15 10 - 35 U/L HCG QUALITATIVE, URINE Result Value Ref Range HCG Qualitative, Urine Negative Negative CBC Result Value Ref Range WBC 4.11 4.00 - 10.80 K/uL RBC 3.76 3.85 - 5.15 M/uL HGB 12.0 12.0 - 15.3 g/dL HCT 36.8 36.0 - 45.2 % MCV 97.9 81.5 - 97.5 fL MCH 31.9 27.0 - 34.0 pg MCHC 32.6 32.0 - 36.0 g/dL RDW 12.9 11.5 - 15.5 % PLT 192 140 - 400 K/uL MPV 9.6 6.6 - 11.1 fL DIFFERENTIAL, AUTOMATED Result Value Ref Range WBC 4.11 4.00 - 10.80 K/uL Neutrophils % 78.1 (H) 40.0 - 75.0 % Lymphocytes % 21.2 18.0 - 42.0 % Monocytes % 0.7 (L) 1.0 - 11.0 % Eosinophils % 0.0 0.0 - 6.0 % Basophils % 0.0 0.0 - 2.0 % Absolute Neutrophils 3.21 1.80 - 7.70 K/uL Absolute Lymphocytes 0.87 (L) 1.00 - 4.80 K/ul Absolute Monocytes 0.03 0.00 - 1.10 K/uL Absolute Eosinophils 0.00 0.00 - 0.70 K/uL Absolute Basophils 0.00 0.00 - 0.20 K/uL DIFFERENTIAL, TECHNOLOGIST REVIEW Result Value Ref Range nRBCs Reviewed lab results with pt IMPRESSION/PLAN: Left Triple Negative Breast Cancer Currently completing neoadjuvant chemotherapy with Pembrolizumab D1 + Carboplatin AUC1.5 D1,8,15 + Paclitaxel 80 mg/m2 D1,8,15 q21 Days with plan for 4 cycles. Presents today for consideration of C3D1 of treatment. Lab results reviewed: unremarkable Ok for treatment today as scheduled. Tolerating current treatment plan well with no signs or symptoms of significant toxicity noted Plan for tentative left lumpectomy after completion of neoadjuvant chemo with Dr. Sinha Genetics referral pending RTC with provider for chemo return (scheduled with Taiwo 07/24/23) cbc, cmp, hcg and tsh AD Velez documented in this encounter Nursing Notes * Em Caballero MED ASSIST - 06/19/2024 9:41 AM EST Patient identifed by name and birthdate Do you have any concerns about pain management for today's visit? Yes. Patient instructed to discuss pain concerns with provider during the visit today Living Will or Advance Directive for Health Care as noted on the problem list. [facility] is a way you can talk to your provider on line through e-mail. Would you like to sign up? I can activate it for you? ALREADY ACTIVE Filed Vitals: 06/19/24 0939 BP: 106/72 Pulse: 86 Temp: 36.2 C (97.2 F) TempSrc: Tympanic SpO2: 95% Weight: 87.1 kg (192 lb) Patient was instructed to not get up [...] Description 06/26/2024 9:00 AM EST Laboratory Laboratory Scenery [facility] [address] [place] [address] [place], Lab Scenery [address] [place] [address] 06/26/2024 10:00 AM EST [facility] [address] [place] [address] [place], Chair 1 Hem Onc Scenery [address] [place] [address] 07/03/2024 8:30 AM EST Laboratory Laboratory [facility] [address] [place] [address] [place], Lab Scenery [address] [place] [address] 07/03/2024 9:30 AM EST [facility] [address] [place] [address] [place], Chair 10 Hem Onc Scenery [address] [place] [address] 07/10/2024 7:40 AM EST Laboratory Laboratory [facility] [address] [place] [address] [place], Lab Scenery [address] [place] [address] 07/10/2024 8:45 AM EST [facility] [address] [place] [address] [place], Chair 9 Hem Onc Scenery [address] [place] [address] 07/24/2024 8:30 AM EST Office Visit Hematology/Oncology [facility] [address] [place] [address] Kanu Maravilla MD [address] [place] [address] 08/06/2024 9:00 AM EST Telemedicine Genetics [facility], [facility] [address] [place] [address] Eric Estephania Sharri, MS [address] [place] [address] Health Maintenance Due Date Last [...] and 19+ Years) Aged Out No longer eligabriellab le based on patient's age to complete this topic documented as of this encounter Medical Devices Implanted Type Area Vibrator Operator Device Identifier Shelf Expiration Date Model / Serial / Lot Stent Angulo 4fr 11cm - [id number] Implanted:Qty : 1 on 02/08/2024 by Jeffrey Kerr MD at OR [facility] [employer] [id number] 08/16/2028 [id number] / / [id number] Port Implant W8f Poly Cath - [id number] Implanted:Qty : 1 on 05/02/2024 by Iam Curry MD at OR [facility] Right: Chest CR BARD : PERIPHERAL VASCULAR [id number] 05/17/2025 [id number] / / [id number] documented as of this encounter Visit Diagnoses [...] negative (HCC)- Primary documented in this encounter Care Teams Powertrain Design Engineer Relationship Specialty Start Date End Date Malinda Owens CRNP [address] [facility] [place] [address] PCP - General Nurse Practitioner 09/20/23 documented as of this encounter
--- OUTSIDE RECORDS SUMMARY | 2024-09-05 14:35 | External Medical Summary ---
Author Name Unknown Address Unknown Organization K09:[facility] [place] [address] Laboratory Report Ordering Provider Test Date Status JASMINE JANSEN 06/26/2024 09:14:00 Final Observation Date Value Abnormality Reference (Units ) Status WBC, Total 06/26/2024 09:14:00 2.49 Below low normal 4. 00-10.80 (K/uL) Final RBC 06/26/2024 09:14:00 3.61 3.85-5.15 (M/uL) Final Hemoglobin 06/26/2024 09:14:00 11.9 Below low normal 12 .0-15.3 (g/dL) Final HCT 06/26/2024 09:14:00 35.6 Below low normal 36. 0-45.2 (%) Final MCV 06/26/2024 09:14:00 98.6 81.5-97.5 (fL) Final MCH 06/26/2024 09:14:00 33.0 27.0-34.0 (pg) Final MCHC 06/26/2024 09:14:00 33.4 32.0-36.0 (g/dL) Final RDW 06/26/2024 09:14:00 12.9 11.5-15.5 (%) Final Platelets 06/26/2024 09:14:00 189 140-400 (K /uL) Final MPV 06/26/2024 09:14:00 9.2 6.6-11.1 ( fL) Final Performing Location [facility] [place] [address]
--- OUTSIDE RECORDS SUMMARY | 2024-09-05 14:35 | External Medical Summary ---
Author Name Unknown Address Unknown Organization K09:[facility] [address] Laboratory Report Ordering Provider Test Date Status JASMINE JANSEN 06/19/2024 09:32:09 Final Observation Date Value Abnormality Reference (Units ) Status Screen, Urine 06/19/2024 09:32:09 Negative Negative Final Performing Location [facility] [place] [address]
--- OUTSIDE RECORDS SUMMARY | 2024-09-05 14:35 | External Medical Summary ---
Author Name Unknown Address Unknown Organization K09[facility] [place] [place] [address] Laboratory Report Ordering Provider Test Date Status JASMINE JANSEN 06/19/2024 09:32:09 Final Observation Date Value Abnormality Reference (Units ) Status Nucleated erythrocytes/100 leukocytes [Ratio] in Blood by Automated count 06/19/2024 09:32:09 Final Performing Location [facility] [place] [address]
--- OUTSIDE RECORDS SUMMARY | 2024-09-05 14:35 | External Medical Summary | Summary of Care ---
Author Name Unknown Organization [facility] Address [address] [place] [facility] [place] [address] Phone [phone] Care Team Providers Care Finisher Brush Name Role Phone OwensMalinda AD Primary Care Provider [phone] Reason for Visit * Reason Onset Date Comments Appointment 06/09/2024 Encounter Details Date Type Department Care Team (Late st Contact Info) Description 06/09/2024 Telephone Hematology/Oncology Treatment, [place] [address] [place] [address] Em Ng MD Appointment Allergies No known active allergiesdocumented as of this encounter (statuses as of 06/16/2024) Medications 19 29-1 MG Oral Tablet Chewable [...] as of this encounter (statuses as of 06/16/2024) Active Problems Problem Noted Date Diagnosed Date [...] and class I obesity. Per review of HEEL FINISHER documentation of 09/25/23, blood glucose values have [...] Recommend nutrition consult with RDN (Registered Dietitian Cavalry Scout). Lifestyle changes are also indicated including optimizing [...] and folate levels and referral to a embroiderer hand. If hemoglobin levels are below 8 g/dl, we recommend Maternal Medicine ultrasound for growth every 4 weeks after 24 weeks. Consider a blood transfusion if hemoglobin levels fall below 6 g/dL. ([employer] [facility] Nurse Practice Bulletin Number 95, December,). Consider Venofer [...] as of this encounter (statuses as of 06/16/2024) Resolved Problems Problem Noted Date Diagnosed Date Resolved Date Abnormal glucose tolerance i n mother complicating 04/19/2023 08/31/2023 Overview (04/19/2023): Failed early glucola. 3hr GTT ordered documented as of this encounter (statuses as of 06/16/2024) Immunizations Name Administration Dates Next Due DTP [...] money to get more. Never true 03/26/2024 [place] Depression Scale Answer Date Recorded [place] Depression Scale Total 6 12/11/2023 The thought [...] No 03/26/2024 Does the household have a [facility] source of income? 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 * Telephone Encounter - Yuli Gallagher RN - 06/12/2024 9:27 AM EST Patient will be having weekly chemo treatments through 07/31/24, then will get treatment every otherweek. Pau: can you please add patient as a new return on Dr Maravilla's schedule either 07/17 or 07/24 (needs to be early enough that a 3 hour treatment can be added afterwards)? She is aware we were looking to do this, will get appt from portal or when she comes in for a future treatment sodoes not need to be called. Thanks! * Telephone Encounter - Lisa Casillas OSA - 06/09/2024 3:50 PM EST Updated per the teams message that was sent * Telephone Encounter - Yuli Gallagher RN - 06/09/2024 3:42 PM EST Called patient to discuss appts. She would like to keep future appts on - will need to get her established with Dr Maravilla with a future visit. Scheduling: please reschedule provider visit to be with Macarena 06/19 at 9:30am. Patient aware. Thanks! documented in this encounter Plan of Treatment Upcoming Encounters Date Type Department Care Team (Late st Contact Info) Description 06/19/2024 9:00 AM EST Laboratory Laboratory [facility] [place] [address] [place] [address] [place] [facility] [address] [facility] [place] [address] 06/19/2024 9:30 AM EST Office Visit Hematology/Oncology [facility] [place] [address] [place] [phone] Macarena Valerio [facility] [address] [facility] [place] [address] 06/19/2024 10:00 AM EST Hem/Onc Treatment Hematology/Oncology Treatment, [place] [address] [facility] [place] [address] [place], Chair 4 Hem Onc Scenery [address] [place] [address] 06/26/2024 9:00 AM EST Laboratory Laboratory Scenery [facility] [address] [place] [address] [place], Lab Scenery [address] [place] [address] 06/26/2024 10:00 AM EST Hem/Onc Treatment Hematology/Oncology Treatment, [place] [address] [facility] [place] [address] [place], Chair 1 Hem Onc Scenery [address] [place], [place] [address] 07/03/2024 8:30 AM EST Laboratory Laboratory Scenery [facility] [address] [place] [address] [place], Lab Scenery [address] [place] [address] 07/03/2024 9:30 AM EST [facility] [address] [facility] [place] [address] [place], Chair 10 Hem Onc Scenery [address] [place] [address] 07/10/2024 7:40 AM EST Laboratory Laboratory Scenery [facility] [address] [place] [address] [place], Lab Scenery [address] [place] [address] 07/10/2024 8:45 AM EST Hem/Onc Treatment Hematology/Oncology Treatment, [place] [address] [place] [address] [place], Chair 9 Hem Onc Scenery [address] [place] [address] 07/24/2024 8:30 AM EST Office Visit Hematology/Oncology [facility] [place] [address] [facility] [place] [phone] Kanu Maravilla MD [address] [facility] [place] [address] 08/06/2024 9:00 AM EST Telemedicine Genetics [facility] [address] [place] [address] Estephania Reyes, MS [address] [place] [address] Health Maintenance Due Date Last [...] this encounter Medical Devices Implanted Type Area Fagot Heater Helper Device Identifier Shelf Expiration Date Model / Serial / Lot Stent Kev 4fr 11cm - [id number] Implanted:Qty : 1 on 02/08/2024 by Jeffrey Kerr MD at OR [facility] [employer] [id number] 08/16/2028 [id number] / / [id number] Port Implant W8f Poly Cath - [id number] Implanted:Qty : 1 on 05/02/2024 by Iam Curry MD at OR [facility] Right: Chest CR BARD : PERIPHERAL VASCULAR [id number] 05/17/2025 [id number] / / [id number] documented as of this encounter Care Teams Finisher Brush Relationship Specialty Start Date End Date Malinda Owens CRNP [address] [place] [address] PCP - General Nurse Practitioner 09/20/23 documented as of this encounter
--- OUTSIDE RECORDS SUMMARY | 2024-09-05 14:35 | External Medical Summary ---
Author Name Unknown Address Unknown Organization K01:[facility] [place] [address] [facility] [address] Laboratory Report Ordering Provider Test Date Status ELAINE JAVIERON 06/19/2024 09:32:09 Final Observation Date Value Abnormality Reference (Units ) Status TSH 06/19/2024 09:32:09 0.96 0.27-4.20 (uIU/mL) Final Performing Location [facility] [place] [address] [facility] [address]
--- OUTSIDE RECORDS SUMMARY | 2024-09-05 14:35 | External Medical Summary ---
Author Name Unknown Address Unknown Organization K09:[facility] [address] [place] [address] Laboratory Report Ordering Provider Test Date Status JASMINE JANSEN 06/19/2024 09:32:09 Final Observation Date Value Abnormality Reference (Units ) Status BUN 06/19/2024 09:32:09 16 6-20 (mg/dL) Final Creatinine 06/19/2024 09:32:09 0.8 0.5-1.0 (mg/dL) Final Glomerular filtration rate/1.73 sq M.predicted [Volume Rate/Area] in Serum, Plasma or Blood by Creatinine-based formula (CKD-EPI) 06/19/2024 09:32:09 >90 >=60 (mL/min) Final eGFR is calculated based on the CKD-EPI 2020 equation. Sodium 06/19/2024 09:32:09 139 135-146 (m mol/L) Final Potassium 06/19/2024 09:32:09 4.3 3.5-5.1 (m mol/L) Final Cl 06/19/2024 09:32:09 103 98-107 (mm ol/L) Final CO2 06/19/2024 09:32:09 20 Below low normal 22- 32 (mmol/L) Final Anion gap 06/19/2024 09:32:09 16 Above high normal 7- 15 (mmol/L) Final Glucose 06/19/2024 09:32:09 131 Above high normal 70 -120 (mg/dL) Final Albumin 06/19/2024 09:32:09 4.6 3.8-5.0 (g /dL) Final AST (Aspartate aminotransferase) 06/19/2024 09:32:09 11 10-35 (U/L) Fin al Alk Phos 06/19/2024 09:32:09 91 35-130 (U/ L) Final Bilirubin, Total 06/19/2024 09:32:09 0.3 <=1 .2 (mg/dL) Final Calcium 06/19/2024 09:32:09 10.1 8.4-10.2 ( mg/dL) Final Protein 06/19/2024 09:32:09 7.7 6.0-8.3 (g /dL) Final ALT (Alanine aminotransferase) 06/19/2024 09:32:09 15 10-35 (U/L) Clifton [email or web address] Performing Location [facility] [address] [place] [address]
--- OUTSIDE RECORDS SUMMARY | 2024-09-05 14:35 | External Medical Summary | Summary of Care ---
Author Name Unknown Organization [facility] Address [address] [place] [address] Phone [phone] Care Team Providers Care Plant Controller Name Role Phone Malinda Owens Primary Care Provider [phone] Reason for Visit * Reason Comments Chemotherapy [...] HCL Em Ng MD Hematology/Oncology Treatment, [address] [address] Phone: tel: fax: Referral ID Status Reason Start Date Expiration Date V isits Requested Visits Authorized [id number] Authorized 04/30/2024 07/23/2024 [id number] Encounter Details Date Type Department Care Team (Latest Contact Info) Description 06/12/2024 11:00 AM EST Hem/Onc Treatment Hematology/Oncolog y Treatment, [address] [address] [place], Chair 6 Hem On[address] [place] [address] Malignant neoplasm of upper-outer quadrant of left breast in female, estrogen receptor negative (HCC)*; Encounter for antineoplastic chemotherapy; Encounter for prevention of neutropenia due to chemotherapy; Encounter for fertility preservation procedure; Suppression of ovarian secretion Allergies No known active allergiesdocumented as of this encounter (statuses as of 06/12/2024) Medications 19 29-1 MG Oral Tablet Chewable [...] as of this encounter (statuses as of 06/12/2024) Active Problems Problem Noted Date Diagnosed Date [...] complete. Enrolled in Current Health. Plans to tow picker meter from pharmacy today. Instructions provided [...] and class I obesity. Per review of INFORMATION SECURITY ENGINEER documentation of 09/25/23, blood glucose values [...] Recommend nutrition consult with RDN (Registered Dietitian Business Advisor). Lifestyle changes are also indicated including optimizing [...] and folate levels and referral to a soil checker. If hemoglobin levels are below 8 g/dl, we recommend Maternal Medicine ultrasound for growth every 4 weeks after 24 weeks. Consider a blood transfusion if hemoglobin levels fall below 6 g/dL. ([employer] Practice Bulletin Number 95, December,). Consider Venofer [...] as of this encounter (statuses as of 06/12/2024) Resolved Problems Problem Noted Date Diagnosed Date Resolved Date Abnormal glucose tolerance i n mother complicating 04/19/2023 08/31/2023 Overview (04/19/2023): Failed early glucola. 3hr GTT ordered documented as of this encounter (statuses as of 06/12/2024) Immunizations Name Administration Dates Next Due DTP [...] money to get more. 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 [...] Description 06/19/2024 9:00 AM EST Laboratory Laboratory [facility] [address] [place], [place] [phone] [place], Lab Scenery [address] [place], [place] [address] 06/19/2024 9:30 AM EST Office Visit Hematology/Oncology [facility] [address] [place], [place] [address] Macarena Valerio CRNP [address] [place] [address] 06/19/2024 10:00 AM EST [facility] [address] [facility], [place] [address] [place], Chair 4 Hem Onc [address] [place], [place] [address] 06/26/2024 9:00 AM EST Laboratory Laboratory [facility] [place] [place] [address] [place], [place] [address] [place], Lab Scenery [address] [place] [address] 06/26/2024 10:00 AM EST [facility] [address] [facility], [place] [address] [place], Chair 1 Hem Onc Scenery [address] [place] [address] 07/03/2024 8:30 AM EST Laboratory Laboratory [facility] [address] [place], [place] [address] [place], Lab Scenery [address] [place] [address] 07/03/2024 9:30 AM EST Hem/Onc Treatment Hematology/Oncology Treatment, [place] [address] [place] [address] [place], Chair 10 Hem Onc Scen[address] [place] [address] 07/10/2024 7:40 AM EST Laboratory Laboratory [address]ery [place] [address] [place], [place] [phone] [place], Lab Scenery [address] [facility] [place] [address] 07/10/2024 8:45 AM EST Hem/Onc Treatment Hematology/Oncology Treatment, [place] [address] [place] [address] [place], Chair 9 Hem Onc Scenery [address] [facility] [place], [place] [address] 08/06/2024 9:00 AM EST Telemedicine Genetics [facility], C [address] [place] [address] Estephania Reyes, MS [address] [place] [address] Health Maintenance Due Date Last [...] this encounter Medical Devices Implanted Type Area Operations Assistant Device Identifier Shelf Expiration Date Model / Serial / Lot Stent Angulo 4fr 11cm - [id number] Implanted:Qty : 1 on 02/08/2024 by Jeffrey Kerr MD at OR [facility] [employer] [id number] 08/16/2028 [id number] / / [id number] Port Implant W8f Poly Cath - [id number] Implanted:Qty : 1 on 05/02/2024 by Iam Curry MD at OR [facility] Right: Chest CR BARD : PERIPHERAL VASCULAR [id number] 05/17/2025 [id number] / / [id number] documented as of this encounter Visit Diagnoses [...] failure documented in this encounter Administered Medications Active Administered Medications - up to 3 most recent administrations Medication Order MAR Action Action Date Dose Rate Site diphenhydrAMINE (Benadryl) inj 50 mg 50 mg, IV Push, ONCE PRN Other, Hypersensitivity Reaction, Starting on Bibi 06/12/24 at 1129, Until Sun06/13/24 at 1128, For 24 hoursIndications:Malignant neoplasm of upper-outer quadrant of left breast in female, estrogen receptor negative (HCC),Encounter for antineoplastic chemotherapy,Encounter for prevention of neutropenia due to chemotherapy EPINEPHrine 1 MG/ML inj 0.3 mg 0.3 mg, Intramuscular, ONCE PRN Other, Hypersensitivity Reaction or Anaphylaxis, Starting on Sun06/12/24 at 1129, Until Sun06/13/24 at 1128, For 24 hoursIndications:Malignant neoplasm of upper-outer quadrant of left breast in female, estrogen receptor negative (HCC),Encounter for antineoplastic chemotherapy,Encounter for prevention of neutropenia due to chemotherapy hEParin 100 UNIT/ML Lock Flush inj 500 Units 500 Units (5 mL), IV Lock, PRN Other, IV Flush, Starting on Sun06/12/24 at 1129, Until Sun06/13/24 at 1128, For 24 hours, Do not flush if lock, PICC, or central line not in place; IV infusing or unable to flush.Indications:Malignant neoplasm of upper-outer quadrant of left breast in female, estrogen receptor negative (HCC),Encounter for antineoplastic chemotherapy,Encounter for prevention of neutropenia due to chemotherapy Given 06/12/2024 1:47 PM EST 500 Units Hydrocortisone Sod Suc (PF) (Solu-Cortef) inj 100 mg 100 mg, IV Push, ONCE PRN Other, Hypersensitivity Reaction, Starting on Sun06/12/24 at 1129, Until Sun06/13/24 at 1128, For 24 hoursIndications:Malignant neoplasm of upper-outer quadrant of left breast in female, estrogen receptor negative (HCC),Encounter for antineoplastic chemotherapy,Encounter for prevention of neutropenia due to chemotherapy LORAzepam (Ativan) tab 0.5 mg 0.5 mg, Oral, ONCE PRN Anxiety, Nausea, Starting on Sun06/12/24 at 1230, Until DiscontinuedIndications:Nancy gnant neoplasm of upper-outer quadrant of left breast in female, estrogen receptor negative (HCC),Encounter for antineoplastic chemotherapy,Encounter for prevention of neutropenia due to chemotherapy meperidine (Demerol) 25 MG/ML inj 25 mg 25 mg, Intramuscular, ONCE PRN Shivering, Chills/Rigors from acute infusion reaction, Starting on Sun06/12/24 at 1129, Until Sun06/13/24 at 1128, For 24 hoursIndications:Malignant neoplasm of upper-outer quadrant of left breast in female, estrogen receptor negative (HCC),Encounter for antineoplastic chemotherapy,Encounter for prevention of neutropenia due to chemotherapy NSS infusion Intravenous, at 50 mL/hr, PRN, Starting on Sun06/12/24 at 1230, Until Discontinued, Maintenance lineIndications:Malignant neoplasm of upper-outer quadrant of left breast in female, estrogen receptor negative (HCC),Encounter for antineoplastic chemotherapy,Encounter for prevention of neutropenia due to chemotherapy Start Infusion 06/12/2024 11:33 AM EST 50 mL/hr oxygen GAS Inhalation, OXYGEN, First dose on Sun06/12/24 at 1600, Until Discontinued, Device/Managed by: Low [...] Push, PRN Other, IV Flush, Starting on Sun06/12/24 at 1129, Until Sun06/13/24 at 1128, For 24 hours, Do not flush if lock, PICC, or central line not in place; IV infusing or unable to flush.Indications:Malignant neoplasm of upper-outer quadrant of left breast in female, estrogen receptor negative (HCC),Encounter for antineoplastic chemotherapy,Encounter for prevention of neutropenia due to chemotherapy Given 06/12/2024 1:47 PM EST 10 mL Inactive Administered Medications [...] Given 06/12/2024 11:45 AM EST 20 mg Leuprolide Acetate (Lupron) inj 3.75 mg 3.75 mg, Intramuscular, ONCE, On Bibi 06/12/24 at 1415, For 1 doseIndications:Jess christie neoplasm of upper-outer quadrant of left breast in female, estrogen receptor negative (HCC),Encounter for fertility preservation procedure,Suppression of ovarian secretion Given 06/12/2024 1:19 PM EST 3.75 mg Dorsogluteal Left PACLitaxel (Taxol) 165 mg in NSS 250 [...] at 1145, For 1 dose, Restricted per [facility] antiemetic guidelinesIndications :Malignant neoplasm of upper-outer quadrant of left breast in female, estrogen receptor negative (HCC),Encounter for antineoplastic chemotherapy,Encounte r for prevention of neutropenia due to chemotherapy Given 06/12/2024 11:41 AM EST 0.25 mg documented in this encounter Care Teams Plant Controller Relationship Specialty Start Date End Date Malinda Owens CRNP [address] [place] [address] PCP - General Nurse Practitioner 09/20/23 documented as of this encounter
--- OUTSIDE RECORDS SUMMARY | 2024-09-05 14:35 | External Medical Summary ---
Author Name Unknown Address Unknown Organization K09:[facility] [place] [address] Laboratory Report Ordering Provider Test Date Status JASMINE JANSEN 06/26/2024 09:14:00 Final Observation Date Value Abnormality Reference (Units ) Status Screen, Urine 06/26/2024 09:14:00 Negative Negative Final Performing Location [facility] [place] [address]
--- OUTSIDE RECORDS SUMMARY | 2024-09-05 14:35 | External Medical Summary | Summary of Care ---
Author Name Unknown Organization [facility] Address [address] [place] [address] Phone [phone] Care Team Providers Care Mlt Name Role Phone Ridge Owensmargaret AD Primary Care Provider [phone] Reason for Visit * Reason Onset Date Comments Appointment 06/09/2024 Encounter Details Date Type Department Care Team (Late st Contact Info) Description 06/09/2024 Telephone Hematology/Oncology Treatment, [place] [address] [place] [address] Em Ng MD Appointment Allergies No known active allergiesdocumented as of this encounter (statuses as of 06/13/2024) Medications 19 29-1 MG Oral Tablet Chewable [...] as of this encounter (statuses as of 06/13/2024) Active Problems Problem Noted Date Diagnosed Date [...] complete. Enrolled in Current Health. Plans to grain picker meter from pharmacy today. Instructions provided [...] and class I obesity. Per review of SEWING MACHINE OPERATOR PAPER BAGS documentation of 09/25/23, blood glucose values have [...] Recommend nutrition consult with RDN (Registered Dietitian Insole Department Worker). Lifestyle changes are also indicated including [...] and folate levels and referral to a analytics consultant. If hemoglobin levels are below 8 g/dl, we recommend Maternal Medicine ultrasound for growth every 4 weeks after 24 weeks. Consider a blood transfusion if hemoglobin levels fall below 6 g/dL. ([employer] User Experience [employer] Practice Bulletin Number 95, December,). Consider [...] as of this encounter (statuses as of 06/13/2024) Resolved Problems Problem Noted Date Diagnosed Date Resolved Date Abnormal glucose tolerance i n mother complicating 04/19/2023 08/31/2023 Overview (04/19/2023): Failed early glucola. 3hr GTT ordered documented as of this encounter (statuses as of 06/13/2024) Immunizations Name Administration Dates Next Due DTP [...] money to get more. Never true 03/26/2024 [place] Depression Scale Answer Date Recorded [place] Depression Scale Total 6 12/11/2023 The thought [...] No 03/26/2024 Does the household have a [facility] source of income? (Household - for [...] encounter Miscellaneous Notes * Telephone Encounter - Yuli Gallagher RN [...] Description 06/19/2024 9:00 AM EST Laboratory Laboratory [facility] [address] [facility] [place] [address] [place] [facility] [address] [place] [address] 06/19/2024 9:30 AM EST Office Visit Hematology/Oncology [facility] [place] [address] [facility] [place] [phone] Macarena Valerio CRNP [address] [facility] [place] [address] 06/19/2024 10:00 AM EST Hem/Onc Treatment Hematology/Oncology Treatment, [place] [address] [facility] [place] [phone] [place], Chair 4 Hem Onc [facility] [address] [place] [address] 06/26/2024 9:00 AM EST Laboratory Laboratory Scenery [facility] [address] [place], [place] [address] [place], Lab Scenery [address] [place] [address] 06/26/2024 10:00 AM EST [facility] [address] [facility], [place] [address] [place], Chair 1 Hem Onc [place] [address] [place], [place] [address] 07/03/2024 8:30 AM EST Laboratory Laboratory [facility] [address] [place], [place] [address] [place], Lab Scenery [address] [place], [place] [address] 07/03/2024 9:30 AM EST Hem[facility] [address] [facility], [place] [address] [place], Chair 10 Hem Onc Sc[place] [address] [place], [place] [address] 07/10/2024 7:40 AM EST Laboratory [facility] [address] [place], [place] [address] [place], Lab Scenery [address] [place] [address] 07/10/2024 8:45 AM EST Hem[facility]c [facility] [address] [place] [address] [place], Chair 9 Hem Onc Scenery [address] [place] [address] 08/06/2024 9:00 AM EST Telemedicine Genetics [facility], [facility] [address] [place] [address] Estephania Reyes, MS [address] [place] [address] Health Maintenance Due Date Last [...] this encounter Medical Devices Implanted Type Area Obstetrics Gynecology Physician Device Identifier Shelf Expiration Date Model / Serial / Lot Stent Angulo 4fr 11cm - [id number] Implanted:Qty : 1 on 02/08/2024 by Jeffrey Kerr MD at OR [facility] [employer] [id number] 08/16/2028 [id number] / / [id number] Port Implant W8f Poly Cath - [id number] Implanted:Qty : 1 on 05/02/2024 by Iam Curry MD at OR [facility] Right: Chest CR BARD : PERIPHERAL VASCULAR [id number] 05/17/2025 [id number] / / [id number] documented as of this encounter Care Teams Mlt Relationship Specialty Start Date End Date Malinda Owens CRNP [address] [place] [address] PCP - General Nurse Practitioner 09/20/23 documented as of this encounter
--- OUTSIDE RECORDS SUMMARY | 2024-09-05 14:35 | External Medical Summary | Summary of Care ---
Author Name Unknown Organization [facility] Address [address] [place] [address] Phone [phone] Care Team Providers Care Filler Feeder Name Role Phone Malinda Owens Primary Care Provider [phone] Reason for Visit * Reason Comments Outpatient Testing Encounter Details Date Type Department Care Team (Late st Contact Info) Description 06/12/2024 10:00 AM EST Laboratory [facility] [address] [facility] [phone] [facility] [address] [facility] [place] [address] Malignant neoplasm of upper-outer quadrant of left breast in female, estrogen receptor negative (HCC) Allergies No known active allergiesdocumented as of this encounter (statuses as of 06/12/2024) Medications 29-1 MG Oral Tablet Chewable Take [...] and class I obesity. Per review of FISHER EEL SPEAR documentation of 09/25/23, blood glucose values have [...] Recommend nutrition consult with RDN (Registered Dietitian Treasury Manager). Lifestyle changes are also indicated including [...] and folate levels and referral to a gelatin maker utility. If hemoglobin levels are below 8 g/dl, we recommend Maternal Medicine ultrasound for growth every 4 weeks after 24 weeks. Consider a blood transfusion if hemoglobin levels fall below 6 g/dL. ([employer] Cuff Setter Lockstitch Practice Bulletin Number 95, December,). Consider Venofer [...] money to get more. 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 Not on file Not on file documented as of this encounter Plan of Treatment Upcoming Encounters Date Type Department Care Team (Late st Contact Info) Description 06/12/2024 11:00 AM EST Hem/Onc Treatment Hematology/Oncology Treatment, [place] [address] [place] [address] [place], Chair 6 Hem Onc Scenery [address] [place] [address] Arrived 06/19/2024 9:00 AM EST Laboratory Laboratory Scenery [facility] [address] [place], [place] [address] [place], Lab Scenery [address] [place], [place] [address] 06/19/2024 9:30 AM EST Office [facility] [address] [place] [address] Macarena Valerio CRNP [address] [place] [address] 06/19/2024 10:00 AM EST Hem/Onc Treatment Hematology/Oncology Treatment, [place] [address] [place], [place] [address] [place], Chair [address] [facility] [address] [facility] [place], [place] [address] 08/06/2024 9:00 AM EST Telemedicine Genetics [facility], [facility] [address] [place] [address] Estephania Reyes, [place] [address] [place] [address] Pending Results Name Type Priority Associated Diagnoses Date /Time CBC WITH WBC DIFFERENTIAL Lab STAT Malignant neoplasm of upper-outer quadrant of left breast in female, estrogen receptor negative (HCC) 06/12/2024 9:59 AM EST COMPREHENSIVE METABOLIC PANEL Lab STAT Malignant neoplasm of upper-outer quadrant of left breast in female, estrogen receptor negative (HCC) 06/12/2024 9:59 AM EST HCG QUALITATIVE, URINE Lab STAT Malignant neoplasm of upper-outer quadrant of left breast in female, estrogen receptor negative (HCC) 06/12/2024 9:59 AM EST CBC Lab STAT Malignant neoplasm of upper-outer quadrant of left breast in female, estrogen receptor negative (HCC) 06/12/2024 9:59 AM EST DIFFERENTIAL, AUTOMATED Lab STAT Malignant neoplasm of upper-outer quadrant of left breast in female, estrogen receptor negative (HCC) 06/12/2024 9:59 AM EST Health Maintenance Due Date Last [...] this encounter Medical Devices Implanted Type Area Crabber Device Identifier Shelf Expiration Date Model / Serial / Lot Stent Kev 4fr 11cm - [id number] Implanted:Qty : 1 on 02/08/2024 by Jeffrey Kerr MD at OR [facility] [employer] [id number] 08/16/2028 [id number] / / [id number] Port Implant W8f Poly Cath - [id number] Implanted:Qty : 1 on 05/02/2024 by Iam Curry MD at OR [facility] Right: Chest CR BARD : PERIPHERAL VASCULAR [id number] 05/17/2025 [id number] / / [id number] documented as of this encounter Visit Diagnoses [...] (HCC) documented in this encounter Care Teams Filler Feeder Relationship Specialty Start Date End Date Malinda Owens CRNP [address] [facility] [place] [address] PCP - General Nurse Practitioner 09/20/23 documented as of this encounter
--- OUTSIDE RECORDS SUMMARY | 2024-09-05 14:35 | External Medical Summary ---
Author Name Unknown Address Unknown Organization K09:[facility] [place] [address] Laboratory Report Ordering Provider Test Date Status JASMINE JANSEN 06/19/2024 09:32:09 Final Observation Date Value Abnormality Reference (Units ) Status WBC, Total 06/19/2024 09:32:09 4.11 4.00-10.8 0 (K/uL) Final RBC 06/19/2024 09:32:09 3.76 3.85-5.15 (M/uL) Final Hemoglobin 06/19/2024 09:32:09 12.0 12.0-15.3 (g/dL) Final HCT 06/19/2024 09:32:09 36.8 36.0-45.2 (%) Final MCV 06/19/2024 09:32:09 97.9 81.5-97.5 (fL) Final MCH 06/19/2024 09:32:09 31.9 27.0-34.0 (pg) Final MCHC 06/19/2024 09:32:09 32.6 32.0-36.0 (g/dL) Final RDW 06/19/2024 09:32:09 12.9 11.5-15.5 (%) Final Platelets 06/19/2024 09:32:09 192 140-400 (K /uL) Final MPV 06/19/2024 09:32:09 9.6 6.6-11.1 ( fL) Final Performing Location [facility] [place] [address]
--- OUTSIDE RECORDS SUMMARY | 2024-09-05 14:35 | External Medical Summary ---
Author Name Unknown Address Unknown Organization K09:[facility] [address] [place] [address] Laboratory Report Ordering Provider Test Date Status JASMINE JANSEN 06/19/2024 09:32:09 Final Observation Date Value Abnormality Reference (Units ) Status SYNC LEUKOCYTES IN BLOOD BY AUTOMATED COUNT 06/19/2024 09:32:09 4.11 4.00-10.80 (K/uL) Final Segs 06/19/2024 09:32:09 78.1 Above high normal 40.0-75.0 (%) Final Lymphs % 06/19/2024 09:32:09 21.2 18.0-42.0 (%) Final Monos 06/19/2024 09:32:09 0.7 Below low normal 1.0-11.0 (%) Final Eosinophils 06/19/2024 09:32:09 0.0 0.0-6.0 (%) Final Basos 06/19/2024 09:32:09 0.0 0.0-2.0 (%) Final Absolute Segs 06/19/2024 09:32:09 3.21 1.80-7.70 (K/uL) Final Lymphs, absolute 06/19/2024 09:32:09 0.87 Below low normal 1.00-4.80 (K/ul) Final Monos, Abs 06/19/2024 09:32:09 0.03 0.00-1.10 (K/uL) Final Eos, Abs 06/19/2024 09:32:09 0.00 0.00-0.70 (K/uL) Final Basos, Abs 06/19/2024 09:32:09 0.00 0.00-0.20 (K/uL) Final Performing Location [facility] [address] [place] [address]
--- OUTSIDE RECORDS SUMMARY | 2024-09-05 14:35 | External Medical Summary ---
Author Name Unknown Address Unknown Organization K09:[facility] [address] [place] [address] Laboratory Report Ordering Provider Test Date Status JASMINE JANSEN 06/26/2024 09:14:00 Final Observation Date Value Abnormality Reference (Units ) Status Nucleated erythrocytes/100 leukocytes [Ratio] in Blood by Automated count 06/26/2024 09:14:00 Final Performing Location [facility] [place] [address]
--- OUTSIDE RECORDS SUMMARY | 2024-09-05 14:35 | External Medical Summary | Summary of Care ---
Author Name Unknown Organization [facility] Address [address] [place] [address] Phone [phone] Care Team Providers Care Golf Ball Trimmer Name Role Phone Malinda Owens Primary Care Provider [phone] Reason for Visit * Reason Comments Outpatient Testing Encounter Details Date Type Department Care Team (Late st Contact Info) Description 06/19/2024 9:00 AM EST Laboratory Laboratory [facility] [address] [place] [phone] [facility] 200 [facility] [place] [address] Malignant neoplasm of upper-outer quadrant of left breast in female, estrogen receptor negative (HCC) Allergies No known active allergiesdocumented as of this encounter (statuses as of 06/19/2024) Medications 29-1 MG Oral Tablet Chewable Take [...] and class I obesity. Per review of CARPENTRY FOREMAN documentation of 09/25/23, blood glucose values have [...] Recommend nutrition consult with RDN (Registered Dietitian Residential Real Estate Agent). Lifestyle changes are also indicated including optimizing [...] and folate levels and referral to a hoe runner. If hemoglobin levels are below 8 g/dl, we recommend Maternal Medicine ultrasound for growth every 4 weeks after 24 weeks. Consider a blood transfusion if hemoglobin levels fall below 6 g/dL. ([employer] Obst[employer] and Vacuum Evaporation Operator Practice Bulletin Number 95, December,). Consider [...] money to get more. 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 Not on file Not on file documented as of this encounter Plan of Treatment Upcoming Encounters Date Type Department Care Team (Late st Contact Info) Description 06/19/2024 10:00 AM EST Hem/Onc Treatment Hematology/Oncology Treatment, [place] [address] [place] [address] [place], Chair 4 Hem Onc Scen[place] [address] [place] [address] Arrived 06/26/2024 9:00 AM EST Laboratory Laboratory [facility] [address] [place] [address] [place], Lab Scenery [address] [place] [address] 06/26/2024 10:00 AM EST [facility] 200 [place] [address] [place], Chair 1 Hem Onc Scenery [address] [place] [address] 07/03/2024 8:30 AM EST Laboratory Laboratory [facility] [address] [place] [address] [place], Lab Scenery [address] [place] [address] 07/03/2024 9:30 AM EST [facility] [address] [place] [address] [place], Chair 10 Hem Onc Scenery [address] [place] [address] 07/10/2024 7:40 AM EST Laboratory Laboratory [facility] [address] [place] [address] [place], Lab Scenery [address] [place] [address] 07/10/2024 8:45 AM EST [facility] [address] [place] [address] [place], Chair 9 Hem Onc Scenery [address] [place] [address] 07/24/2024 8:30 AM EST Office Visit Hematology/Oncology [facility] [address] [place] [address] Kanu Maravilla MD [address] [place] [address] 08/06/2024 9:00 AM EST Telemedicine Genetics [facility]Onc, [facility] [address] [place] [address] Estephania Reyes Sharri, MS [address] [place] [address] Pending Results Name Type Priority Associated Diagnoses Date /Time TSH WITH FREE T4 IF INDICATED Lab STAT Malignant neoplasm of upper-outer quadrant of left breast in female, estrogen receptor negative (HCC) 06/19/2024 9:32 AM EST CBC WITH WBC DIFFERENTIAL Lab STAT Malignant neoplasm of upper-outer quadrant of left breast in female, estrogen receptor negative (HCC) 06/19/2024 9:32 AM EST COMPREHENSIVE METABOLIC PANEL Lab STAT Malignant neoplasm of upper-outer quadrant of left breast in female, estrogen receptor negative (HCC) 06/19/2024 9:32 AM EST CBC Lab STAT Malignant neoplasm of upper-outer quadrant of left breast in female, estrogen receptor negative (HCC) 06/19/2024 9:32 AM EST DIFFERENTIAL, AUTOMATED Lab STAT Malignant neoplasm of upper-outer quadrant of left breast in female, estrogen receptor negative (HCC) 06/19/2024 9:32 AM EST Health Maintenance Due Date Last [...] this encounter Medical Devices Implanted Type Area Layout Mechanic Device Identifier Shelf Expiration Date Model / Serial / Lot Stent Angulo 4fr 11cm - [id number] Implanted:Qty : 1 on 02/08/2024 by Jeffrey Kerr MD at OR [facility] [employer] [id number] 08/16/2028 [id number] / / [id number] Port Implant W8f Poly Cath - [id number] Implanted:Qty : 1 on 05/02/2024 by Iam Curry MD at OR [facility] Right: Chest CR BARD : PERIPHERAL VASCULAR [id number] 05/17/2025 [id number] / / [id number] documented as of this encounter Procedures Procedure Name Priority Date/Time Associated Diagnosis Comments HCG QUALITATIVE, URINE STAT 06/19/2024 9:32 AM EST Malignant neoplasm of upper-outer quadrant of left breast in female, estrogen receptor negative (HCC) documented in this encounter Results * HCG QUALITATIVE, URINE (06/19/2024 9:32 AM EST) HCG Qualitative, Urine Negative Negative 06/19/2024 9:43 AM EST [facility] 56- Urine Urine specimen obtained by clean catch procedure / Unknown Non-blood Collection / Unknown 06/19/2024 9:32 AM EST 06/19/2024 9:32 AM EST us Kanu Maravilla MD LAB URINE ORDERABLES Final Res ult [facility] [address]- [address] [place] [address] documented in this encounter Visit [...] (HCC) documented in this encounter Care Teams Golf Ball Trimmer Relationship Specialty Start Date End Date Malinda Owens CRNP [address] [place] [address] PCP - General Nurse Practitioner 09/20/23 documented as of this encounter
--- OUTSIDE RECORDS SUMMARY | 2024-09-05 14:35 | External Medical Summary | Summary of Care ---
Author Name Unknown Organization [facility] Address [address] [place] [address] Phone [phone] Care Team Providers Care Day Care Aide Name Role Phone Malinda Owens Primary Care Provider [phone] Reason for Visit * Reason Comments Chemotherapy [...] HCL Em Ng MD Hematology/Oncology Treatment, [address] [address] Phone: tel: fax: Referral ID Status Reason Start Date Expiration Date V isits Requested Visits Authorized [id number] Authorized 04/30/2024 07/23/2024 [id number] Encounter Details Date Type Department Care Team (Latest Contact Info) Description 06/19/2024 10:00 AM EST Hem/Onc Treatment Hematology/Oncolog y Treatment, [address] [place] [address] [place] Chair [address] [place] [address] Malignant neoplasm of upper-outer quadrant of [...] and class I obesity. Per review of SUPERVISOR DEHYDROGENATION documentation of 09/25/23, blood glucose values have [...] Recommend nutrition consult with RDN (Registered Dietitian Assembler Utility Buildings). Lifestyle changes are also indicated including optimizing [...] folate levels and referral to a manager unix. If hemoglobin levels are below 8 g/dl, we recommend Maternal Medicine ultrasound for growth every 4 weeks after 24 weeks. Consider a blood transfusion if hemoglobin levels fall below 6 g/dL. ([employer] Obst[employer] and Crematorium Operator Practice Bulletin Number 95, December,). Consider [...] money to get more. 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 [...] facility in stable condition. * Marilyn Burnett, RN - 06/19/2024 10:57 AM EST Chair [...] Description 06/26/2024 9:00 AM EST Laboratory Laboratory [facility] [place] [address] [place] [phone] [place], Lab Scene [address] [place] [address] 06/26/2024 10:00 AM EST Hem/Onc Treatment Hematology/Oncology Treatment, [place] [address] [place] [address] [place], Chair 1 Hem Onc Scene [address] [place] [address] 07/03/2024 8:30 AM EST Laboratory Laboratory [facility] [place] [address] [place] [phone] [place], Lab Scenery [address] [place], [place] [address] 07/03/2024 9:30 AM EST [facility] 200 [facility], [place] [address] [place], Chair 10 Hem Onc Scenery [address] [place], [place] [address] 07/10/2024 7:40 AM EST Laboratory Laboratory [facility] [place] [address] [place], [place] [address] [place], Lab Scenery [address] [place], [place] [address] 07/10/2024 8:45 AM EST Hem[facility] 200 [facility], [place] [address] [place], Chair 9 Hem Onc Scenery [address] [place], [place] [address] 07/24/2024 8:30 AM EST Office Visit Hematology/Oncology [facility] [place] [address] [place], [place] [phone] Kanu Maravilla MD [address] [place], [place] [address] 08/06/2024 9:00 AM EST Telemedicine Genetics [facility], [facility] [address] [place] [address] Estephania Reyes, MS [address] [place], [place] [id number] Health Maintenance Due Date Last Done Comments [...] this encounter Medical Devices Implanted Type Area Wood Hacker Device Identifier Shelf Expiration Date Model / Serial / Lot Stent Angulo 4fr 11cm - [id number] Implanted:Qty : 1 on 02/08/2024 by Jeffrey Kerr MD at OR [facility] [employer] [id number] 08/16/2028 [id number] / / [id number] Port Implant W8f Poly Cath - [id number] Implanted:Qty : 1 on 05/02/2024 by Iam Curry MD at OR [facility] Right: Chest CR BARD : PERIPHERAL VASCULAR [id number] 05/17/2025 [id number] / / [id number] documented as of this encounter Visit Diagnoses [...] ONCE PRN Other, Hypersensitivity Reaction, Starting on Sun06/19/24 at 1036, Until Sun06/20/24 at 1035, For 24 hoursIndications:Malignant neoplasm of upper-outer quadrant of left breast in female, estrogen receptor negative (HCC),Encounter for antineoplastic chemotherapy,Encounter for prevention of neutropenia due to chemotherapy EPINEPHrine 1 MG/ML inj 0.3 mg 0.3 mg, Intramuscular, ONCE PRN Other, Hypersensitivity Reaction or Anaphylaxis, Starting on Sun06/19/24 at 1036, Until Sun06/20/24 at 1035, For 24 hoursIndications:Malignant neoplasm of upper-outer quadrant of left breast in female, estrogen receptor negative (HCC),Encounter for antineoplastic chemotherapy,Encounter for prevention of neutropenia due to chemotherapy hEParin 100 UNIT/ML Lock Flush inj 500 Units 500 Units (5 mL), IV Lock, PRN Other, IV Flush, Starting on Sun06/19/24 at 1036, Until Sun06/20/24 at 1035, For 24 hours, Do not flush if lock, PICC, or central line not in place; IV infusing or unable to flush.Indications:Malignant neoplasm of upper-outer quadrant of left breast in female, estrogen receptor negative (HCC),Encounter for antineoplastic chemotherapy,Encounter for prevention of neutropenia due to chemotherapy Given 06/19/2024 1:15 PM EST 500 Units Hydrocortisone Sod Suc (PF) (Solu-Cortef) inj 100 mg 100 mg, IV Push, ONCE PRN Other, Hypersensitivity Reaction, Starting on Sun06/19/24 at 1036, Until Sun06/20/24 at 1035, For 24 hoursIndications:Malignant neoplasm of upper-outer quadrant of left breast in female, estrogen receptor negative (HCC),Encounter for antineoplastic chemotherapy,Encounter for prevention of neutropenia due to chemotherapy LORAzepam (Ativan) tab 0.5 mg 0.5 mg, Oral, ONCE PRN Anxiety, Nausea, Starting on Sun06/19/24 at 1145, Until DiscontinuedIndications:Nancy gnant neoplasm of upper-outer quadrant of left breast in female, estrogen receptor negative (HCC),Encounter for antineoplastic chemotherapy,Encounter for prevention of neutropenia due to chemotherapy meperidine (Demerol) 25 MG/ML inj 25 mg 25 mg, Intramuscular, ONCE PRN Shivering, Chills/Rigors from acute infusion reaction, Starting on Sun06/19/24 at 1036, Until Sun06/20/24 at 1035, For 24 hoursIndications:Malignant neoplasm of upper-outer quadrant of left breast in female, estrogen receptor negative (HCC),Encounter for antineoplastic chemotherapy,Encounter for prevention of neutropenia due to chemotherapy NSS infusion Intravenous, at 50 mL/hr, PRN, Starting on Sun06/19/24 at 1145, Until Discontinued, Maintenance lineIndications:Malignant neoplasm of upper-outer quadrant of left breast in female, estrogen receptor negative (HCC),Encounter for antineoplastic chemotherapy,Encounter for prevention of neutropenia due to chemotherapy Start Infusion 06/19/2024 10:45 AM EST 50 mL/hr oxygen GAS Inhalation, OXYGEN, First dose on Sun06/19/24 at 1115, Until Discontinued, Device/Managed by: Low Flow Device, [...] Starting on Bibi 06/19/24 at 1036, Until Sun06/20/24 at 1035, For 24 hours, Do not flush if lock, PICC, or central line not in place; IV infusing or unable to flush.Indications:Malignant neoplasm of upper-outer quadrant of left breast in female, estrogen receptor negative (HCC),Encounter for antineoplastic chemotherapy,Encounter for prevention of neutropenia due to chemotherapy Given 06/19/2024 1:15 PM EST 10 mL Inactive Administered Medications [...] Given 06/19/2024 10:47 AM EST 20 mg PACLitaxel (Taxol) 165 [...] at 1115, For 1 dose, Restricted per [facility] antiemetic guidelinesIndications:Malign ant neoplasm of upper-outer [...] 10:55 AM EST 200 mg 226 mL/hr documented in this encounter Care Teams Day Care Aide Relationship Specialty Start Date End Date Malinda Owens CRNP [address] [facility] [place] [address] PCP - General Nurse Practitioner 09/20/23 documented as of this encounter
--- OUTSIDE RECORDS SUMMARY | 2024-09-05 14:35 | External Medical Summary ---
Author Name Unknown Address Unknown Organization [facility]09:[facility] [place] [address] Laboratory Report Ordering Provider Test Date Status JASMINE JANSEN 06/26/2024 09:14:00 Final Observation Date Value Abnormality Reference (Units ) Status BUN 06/26/2024 09:14:00 16 6-20 (mg/dL) Final Creatinine 06/26/2024 09:14:00 0.8 0.5-1.0 (mg/dL) Final Glomerular filtration rate/1.73 sq M.predicted [Volume Rate/Area] in Serum, Plasma or Blood by Creatinine-based formula (CKD-EPI) 06/26/2024 09:14:00 >90 >=60 (mL/min) Final eGFR is calculated based on the CKD-EPI 2020 equation. Sodium 06/26/2024 09:14:00 140 135-146 (m mol/L) Final Potassium 06/26/2024 09:14:00 4.2 3.5-5.1 (m mol/L) Final Cl 06/26/2024 09:14:00 104 98-107 (mm ol/L) Final CO2 06/26/2024 09:14:00 22 22-32 (mmo l/L) Final Anion gap 06/26/2024 09:14:00 14 7-15 (mmol /L) Final Glucose 06/26/2024 09:14:00 132 Above high normal 70 -120 (mg/dL) Final Albumin 06/26/2024 09:14:00 4.6 3.8-5.0 (g /dL) Final AST (Aspartate aminotransferase) 06/26/2024 09:14:00 9 Below low normal 10-35 (U/L) Final Alk Phos 06/26/2024 09:14:00 92 35-130 (U/ L) Final Bilirubin, Total 06/26/2024 09:14:00 0.4 <=1 .2 (mg/dL) Final Calcium 06/26/2024 09:14:00 10.1 8.4-10.2 ( mg/dL) Final Protein 06/26/2024 09:14:00 7.9 6.0-8.3 (g /dL) Final ALT (Alanine aminotransferase) 06/26/2024 09:14:00 15 10-35 (U/L) Clif[place] [email or web address] Performing Location [facility] [place] [address]
--- OUTSIDE RECORDS SUMMARY | 2024-09-05 14:35 | External Medical Summary ---
Author Name Unknown Address Unknown Organization [facility] [address] [place] [address] Laboratory Report Ordering Provider Test Date Status JASMINE JANSEN 06/26/2024 09:14:00 Final Observation Date Value Abnormality Reference (Units ) Status SYNC LEUKOCYTES IN BLOOD BY AUTOMATED COUNT 06/26/2024 09:14:00 2.49 Below low normal 4.00-10.80 (K/uL) Final Segs 06/26/2024 09:14:00 65.5 40.0-75.0 (%) Final Lymphs % 06/26/2024 09:14:00 32.5 18.0-42.0 (%) Final Monos 06/26/2024 09:14:00 2.0 1.0-11.0 (%) Final Eosinophils 06/26/2024 09:14:00 0.0 0.0-6.0 (%) Final Basos 06/26/2024 09:14:00 0.0 0.0-2.0 (%) Final Absolute Segs 06/26/2024 09:14:00 1.63 Below low normal 1.80-7.70 (K/uL) Final Lymphs, absolute 06/26/2024 09:14:00 0.81 Below low normal 1.00-4.80 (K/ul) Final Monos, Abs 06/26/2024 09:14:00 0.05 0.00-1.10 (K/uL) Final Eos, Abs 06/26/2024 09:14:00 0.00 0.00-0.70 (K/uL) Final Basos, Abs 06/26/2024 09:14:00 0.00 0.00-0.20 (K/uL) Final Performing Location [facility] [address] [place] [address]
--- OUTSIDE RECORDS SUMMARY | 2024-09-05 14:36 | External Medical Summary ---
Author Name Unknown Address Unknown Organization K09:[facility] [place] [address] Laboratory Report Ordering Provider Test Date Status LISE JAVIER 06/12/2024 09:59:20 Final Observation Date Value Abnormality Reference (Units ) Status SYNC LEUKOCYTES IN BLOOD BY AUTOMATED COUNT 06/12/2024 09:59:20 5.21 4.00-10.80 (K/uL) Final Segs 06/12/2024 09:59:20 77.5 Above high normal 40.0-75.0 (%) Final Lymphs % 06/12/2024 09:59:20 20.2 18.0-42.0 (%) Final Monos 06/12/2024 09:59:20 2.3 1.0-11.0 (%) Final Eosinophils 06/12/2024 09:59:20 0.0 0.0-6.0 (%) Final Basos 06/12/2024 09:59:20 0.0 0.0-2.0 (%) Final Absolute Segs 06/12/2024 09:59:20 4.04 1.80-7.70 (K/uL) Final Lymphs, absolute 06/12/2024 09:59:20 1.05 1.00-4.80 (K/ul) Final Monos, Abs 06/12/2024 09:59:20 0.12 0.00-1.10 (K/uL) Final Eos, Abs 06/12/2024 09:59:20 0.00 0.00-0.70 (K/uL) Final Basos, Abs 06/12/2024 09:59:20 0.00 0.00-0.20 (K/uL) Final Performing Location [facility] [place] [address]
--- OUTSIDE RECORDS SUMMARY | 2024-09-05 14:36 | External Medical Summary | Summary of Care ---
Author Name Unknown Organization [facility] Address [address] [place] [facility] [place] [address] Phone [phone] Care Team Providers Care Line Crew Supervisor Name Role Phone Owens Ridgemargaret AD Primary Care Provider Reason for Visit * Reason Onset Date Comments Appointment 06/05/2024 Yee Encounter Details Date Type Department Care Team (Late st Contact Info) Description 06/05/2024 Telephone Hematology/Oncology Treatment, [place] [address] [place] [address] Em Ng MD [address] [place] [address] Appointment (Yee) Allergies No known active allergiesdocumented as of this encounter (statuses as of 06/06/2024) Medications 19 29-1 MG Oral Tablet Chewable [...] as of this encounter (statuses as of 06/06/2024) Active Problems Problem Noted Date Diagnosed Date [...] complete. Enrolled in Current Health. Plans to worm picker meter from pharmacy today. Instructions provided [...] and class I obesity. Per review of OFFICER CAPTAIN documentation of 09/25/23, blood glucose values have [...] Recommend nutrition consult with RDN (Registered Dietitian Safety Deposit Clerk). Lifestyle changes are also indicated including [...] and folate levels and referral to a well tender. If hemoglobin levels are below 8 g/dl, we recommend Maternal Medicine ultrasound for growth every 4 weeks after 24 weeks. Consider a blood transfusion if hemoglobin levels fall below 6 g/dL. ([employer] and Cnc Laser Operator Practice Bulletin Number 95, December,). Consider [...] as of this encounter (statuses as of 06/06/2024) Resolved Problems Problem Noted Date Diagnosed Date Resolved Date Abnormal glucose tolerance i n mother complicating 04/19/2023 08/31/2023 Overview (04/19/2023): Failed early glucola. 3hr GTT ordered documented as of this encounter (statuses as of 06/06/2024) Immunizations Name Administration Dates Next Due DTP [...] money to get more. 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 Ng- any issues with patient traveling on a plane to [place] for a work trip in June? * Telephone Encounter - Laron Emerson RN - 06/05/2024 4:16 PM EST Lupron is due on 06/13, patient is scheduled for chemo on 06/12. Scheduling- please add "Lupron" to treatment note on 06/12. MyG sent to patient letting her know. documented in this encounter Plan of Treatment Upcoming Encounters Date Type Department Care Team (Late st Contact Info) Description 06/12/2024 10:00 AM EST Laboratory Laboratory [facility] [address] [place] [phone] [place], Lab Scenery [address] [place] [address] 06/12/2024 11:00 AM EST Hem/Onc Treatment Hematology/Oncology [address], [address] [phone] [place], Chair 6 Hem Onc [facility] 200 [facility] [place] [address] 06/19/2024 9:00 AM EST Laboratory Laboratory [facility] [place] [address] [place] [address] [place], Lab Scenery [address] [facility] [place] [address] 06/19/2024 9:30 AM EST Office Visit Hematology/Oncology [facility] [place] [address] [place] [phone] Em Ng MD [address] [place] [address] [place] [address] 06/19/2024 10:00 AM EST Hem/Onc Treatment Hematology/Oncology [address], [address] [phone] [place], Chair 4 Hem Onc [address]en[address] [place] [address] 08/06/2024 9:00 AM EST Telemedicine Genetics [facility], [facility] [address] [place] [address] Estephania Reyes, MS [address] [place] [address] Health Maintenance Due Date Last Done Comments [...] this encounter Medical Devices Implanted Type Area Family Practice Physician Assistant Device Identifier Shelf Expiration Date Model / Serial / Lot Stent Angulo 4fr 11cm - [id number] Implanted:Qty : 1 on 02/08/2024 by Jeffrey Kerr MD at OR [facility] [employer] [id number] 08/16/2028 [id number] / / [id number] Port Implant W8f Poly Cath - [id number] Implanted:Qty : 1 on 05/02/2024 by Iam Curry MD at OR [facility] Right: Chest CR BARD : PERIPHERAL VASCULAR [id number] 05/17/2025 [id number] / / [id number] documented as of this encounter Care Teams Line Crew Supervisor Relationship Specialty Start Date End Date Malinda Owens CRNP [address] [place] [address] PCP - General Nurse Practitioner 09/20/23 documented as of this encounter
--- OUTSIDE RECORDS SUMMARY | 2024-09-05 14:36 | External Medical Summary | Summary of Care ---
Author Name Unknown Organization [facility] Address [address] [place] [address] Phone [phone] Care Team Providers Care Briquette Machine Operator Name Role Phone Ridge Owensmargaret AD Primary Care Provider [phone] Reason for Visit * Reason Onset Date Comments Appointment 06/09/2024 Encounter Details Date Type Department Care Team (Late st Contact Info) Description 06/09/2024 Telephone Hematology/Oncology Treatment, [place] [address] [place] [address] Em Ng MD Appointment Allergies [...] complete. Enrolled in Current Health. Plans to slate picker meter from pharmacy today. Instructions provided [...] and class I obesity. Per review of POULTRY HANGER documentation of 09/25/23, blood glucose values have [...] Recommend nutrition consult with RDN (Registered Dietitian Pipe Fitter Supervisor Maintenance). Lifestyle changes are also indicated including optimizing [...] and folate levels and referral to a material disposition inspector. If hemoglobin levels are below 8 g/dl, we recommend Maternal Medicine ultrasound for growth every 4 weeks after 24 weeks. Consider a blood transfusion if hemoglobin levels fall below 6 g/dL. ([employer] and Elevator Pilot Practice Bulletin Number 95, December,). Consider Venofer [...] money to get more. Never true 03/26/2024 [place] Depression Scale Answer Date Recorded [place] Depression Scale Total 6 12/11/2023 The thought [...] the household have a [facility] source of income? 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 Not on [...] Description 06/12/2024 10:00 AM EST Laboratory Laboratory [facility] [place] [address] [place] [address] [place], Lab [facility] [address] [facility] [place] [address] 06/12/2024 11:00 AM EST Hem/Onc Treatment Hematology/Oncology Treatment, [place] [address] [place] [address] [place], Chair 6 Hem Onc [facility] [address] [place], [place] [address] 06/19/2024 9:00 AM EST Laboratory Laboratory [facility] [place] [address] [place] [address] [place], Lab [address] [facility] [place], [place] [address] 06/19/2024 9:30 AM EST Office Visit Hematology/Oncology [facility] [place] [address] [place], [place] [phone] Macarena Valerio CRNP [address] [place] [address] 06/19/2024 10:00 AM EST Hem/Onc Treatment Hematology/Oncology Treatment, [place] [address] [place] [address] [place], Chair 4 Hem Onc Scenery 200 [facility], [place] [address] 08/06/2024 9:00 AM EST Telemedicine Genetics HemOnc, [facility] [address] [place] [address] Estephania Reyes, MS [address] [place], [place] [phone] Health Maintenance Due Date Last Done Comments [...] this encounter Medical Devices Implanted Type Area Filler In Device Identifier Shelf Expiration Date Model / Serial / Lot Stent Angulo 4fr 11cm - [id number] Implanted:Qty : 1 on 02/08/2024 by Jeffrey Kerr MD at OR [facility] [employer] [id number] 08/16/2028 [id number] / / [id number] Port Implant W8f Poly Cath - [id number] Implanted:Qty : 1 on 05/02/2024 by Iam Curry MD at OR [facility] Right: Chest CR BARD : PERIPHERAL VASCULAR [id number] 05/17/2025 [id number] / / [id number] documented as of this encounter Care Teams Briquette Machine Operator Relationship Specialty Start Date End Date Malinda Owens CRNP [address] [place] [address] PCP - General Nurse Practitioner 09/20/23 documented as of this encounter
--- OUTSIDE RECORDS SUMMARY | 2024-09-05 14:36 | External Medical Summary | Summary of Care ---
Author Name Unknown Organization [facility] Address [address] [place] [facility] [place] [address] Phone [phone] Care Team Providers Care Health Insurance Specialist Name Role Phone Ridge Owensmargaret AD Primary Care Provider [phone] Reason for Visit * Reason Onset Date Comments Appointment 06/09/2024 Encounter Details Date Type Department Care Team (Late st Contact Info) Description 06/09/2024 Telephone Hematology/Oncology Treatment, [place] [address] [place] [address] Em Ng MD [address] [place] [address] Appointment Allergies No known active allergiesdocumented as of this encounter (statuses as of 06/09/2024) Medications 29-1 MG Oral Tablet Chewable Take [...] as of this encounter (statuses as of 06/09/2024) Active Problems Problem Noted Date Diagnosed Date [...] complete. Enrolled in Current Health. Plans to spanish moss picker meter from pharmacy today. Instructions [...] and class I obesity. Per review of BID CLERK documentation of 09/25/23, blood glucose values [...] nutrition consult with RDN (Registered Dietitian Hydraulic Pile Hammer Operator). Lifestyle changes are also indicated including [...] and folate levels and referral to a outboard motors experimental mechanic. If hemoglobin levels are below 8 g/dl, we recommend Maternal Medicine ultrasound for growth every 4 weeks after 24 weeks. Consider a blood transfusion if hemoglobin levels fall below 6 g/dL. ([employer] Obstetricians and Magento Web Developer Practice Bulletin Number 95, December,). Consider [...] as of this encounter (statuses as of 06/09/2024) Resolved Problems Problem Noted Date Diagnosed Date Resolved Date Abnormal glucose tolerance i n mother complicating 04/19/2023 08/31/2023 Overview (04/19/2023): Failed early glucola. 3hr GTT ordered documented as of this encounter (statuses as of 06/09/2024) Immunizations Name Administration Dates Next Due DTP [...] money to get more. 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 on file Not on file documented as of this encounter Miscellaneous Notes * Telephone Encounter - Lsia Casillas OSA - 06/09/2024 3:50 PM EST [...] Description 06/12/2024 10:00 AM EST Laboratory Laboratory [facility] [address] [place] [phone] [place], Lab [address] [address] [place] [address] 06/12/2024 11:00 AM EST Hem/Onc Treatment Hematology/[address]cology [address] [phone] [place], Chair 6 Hem Onc [address]en[address] [place] [address] 06/19/2024 9:00 AM EST Laboratory Laboratory [facility] [address] [place] [address] [place], Lab [address] [facility] [place] [address] 06/19/2024 9:30 AM EST Office Visit Hematology/Oncology [facility] [address] [place] [address] Macarena Valerio, AD [address] [facility] [address] 06/19/2024 10:00 AM EST Hem/Onc Treatment Hematology/Oncology Treatment, [address] [address] [place], Chair 4 Hem Onc [address] [address] [place] [address] 08/06/2024 9:00 AM EST Telemedicine Genetics HemOnc, [facility] [address] [place], [place] [phone] Estephania Reyes, MS [address] [place], [place] [phone] Health Maintenance Due Date Last Done Comments [...] this encounter Medical Devices Implanted Type Area Jewelry Sales Coordinator Device Identifier Shelf Expiration Date Model / Serial / Lot Stent Angulo 4fr 11cm - [id number] Implanted:Qty : 1 on 02/08/2024 by Jeffrey Kerr MD at OR [facility] [employer] [id number] 08/16/2028 [id number] / / [id number] Port Implant W8f Poly Cath - [id number] Implanted:Qty : 1 on 05/02/2024 by Iam Curry MD at OR [facility] Right: Chest CR BARD : PERIPHERAL VASCULAR [id number] 05/17/2025 [id number] / / [id number] documented as of this encounter Care Teams Health Insurance Specialist Relationship Specialty Start Date End Date Malinda Owens CRNP [address] [place] [address] PCP - General Nurse Practitioner 09/20/23 documented as of this encounter
--- OUTSIDE RECORDS SUMMARY | 2024-09-05 14:36 | External Medical Summary | Summary of Care ---
Author Name Unknown Organization [facility] Address [address] [place] [facility] [place] [address] Phone [phone] Care Team Providers Care Feed Mill Supervisor Name Role Phone Ridge Owensmargaret AD Primary Care Provider [phone] Reason for Visit * Reason Onset Date Comments Appointment 06/09/2024 Encounter Details Date Type Department Care Team (Late st Contact Info) Description 06/09/2024 Telephone Hematology/Oncology Treatment, [place] [address] [place] [address] Em Ng MD [address] [place] [address] Appointment Allergies No known active [...] and class I obesity. Per review of LENS CUTTER documentation of 09/25/23, blood glucose values have [...] Recommend nutrition consult with RDN (Registered Dietitian Laboratory Monitor). Lifestyle changes are also indicated including optimizing [...] and folate levels and referral to a window framer. If hemoglobin levels are below 8 g/dl, we recommend Maternal Medicine ultrasound for growth every 4 weeks after 24 weeks. Consider a blood transfusion if hemoglobin levels fall below 6 g/dL. ([employer] Obstetricians and Software Deployment Engineer Practice Bulletin Number 95, December,). Consider [...] to get more. 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 on file Not on file documented as of this encounter Miscellaneous Notes * Telephone Encounter - Lisa Casillas OSA [...] Description 06/12/2024 10:00 AM EST Laboratory Laboratory [facility] [address] [place] [address] [place], Lab [address] [place] [address] 06/12/2024 11:00 AM EST Hem/Onc Treatment Hematology/Oncology [address] [address] [place], Chair 6 Hem Onc [address] [address] [place] [address] 06/19/2024 9:00 AM EST Laboratory Laboratory [facility] [address] [place] [address] [place], Lab [address] [facility] [place] [address] 06/19/2024 9:30 AM EST Office Visit Hematology/Oncology [facility] [address] [place] [address] Macarena Valerio, AD [address] [facility] [place] [address] 06/19/2024 10:00 AM EST Hem/Onc Treatment Hematology/Oncology Treatment, [address] [address] [place], Chair 4 Hem Onc [address] [place] [address] 08/06/2024 9:00 AM EST Telemedicine Genetics HemOnc, [facility] [address] [place], [place] [phone] Estephania Reyes, MS [address] [place], [place] [phone] Health Maintenance Due Date Last Done Comments [...] this encounter Medical Devices Implanted Type Area Job Press Feeder Device Identifier Shelf Expiration Date Model / Serial / Lot Stent Angulo 4fr 11cm - [id number] Implanted:Qty : 1 on 02/08/2024 by Jeffrey Kerr MD at OR [facility] [employer] [id number] 08/16/2028 6546 / / [id number] Port Implant W8f Poly Cath - [id number] Implanted:Qty : 1 on 05/02/2024 by Iam Curry MD at OR [facility] Right: Chest CR BARD : PERIPHERAL VASCULAR [id number] 05/17/2025 [id number] / / [id number] documented as of this encounter Care Teams Feed Mill Supervisor Relationship Specialty Start Date End Date Malinda Owens CRNP [address] [place] [address] PCP - General Nurse Practitioner 09/20/23 documented as of this encounter
--- OUTSIDE RECORDS SUMMARY | 2024-09-05 14:36 | External Medical Summary ---
Author Name Unknown Address Unknown Organization [facility] [place] [address] Laboratory Report Ordering Provider Test Date Status LISE JAVIER 06/12/2024 09:59:20 Final Observation Date Value Abnormality Reference (Units ) Status Screen, Urine 06/12/2024 09:59:20 Negative Negative Final Performing Location [facility] [place] [address]
--- OUTSIDE RECORDS SUMMARY | 2024-09-05 14:36 | External Medical Summary ---
Author Name Unknown Address Unknown Organization [facility] [place] [address] Laboratory Report Ordering Provider Test Date Status LISE JAVIER 06/12/2024 09:59:20 Final Observation Date Value Abnormality Reference (Units ) Status WBC, Total 06/12/2024 09:59:20 5.21 4.00-10.8 0 (K/uL) Final RBC 06/12/2024 09:59:20 3.85 3.85-5.15 (M/uL) Final Hemoglobin 06/12/2024 09:59:20 12.3 12.0-15.3 (g/dL) Final HCT 06/12/2024 09:59:20 37.5 36.0-45.2 (%) Final MCV 06/12/2024 09:59:20 97.4 81.5-97.5 (fL) Final MCH 06/12/2024 09:59:20 31.9 27.0-34.0 (pg) Final MCHC 06/12/2024 09:59:20 32.8 32.0-36.0 (g/dL) Final RDW 06/12/2024 09:59:20 12.4 11.5-15.5 (%) Final Platelets 06/12/2024 09:59:20 230 140-400 (K /uL) Final MPV 06/12/2024 09:59:20 9.9 6.6-11.1 ( fL) Final Performing Location [facility] [address]
--- OUTSIDE RECORDS SUMMARY | 2024-09-05 14:36 | External Medical Summary | Summary of Care ---
Author Name Unknown Organization [facility] Address [address] [place] [facility] [place] [address] Phone [phone] Care Team Providers Care Hospice Massage Therapist Name Role Phone Owens Ridgemargaret AD Primary Care Provider [phone] Reason for Visit * Reason Onset Date Comments Appointment 06/05/2024 Yee Encounter Details Date Type Department Care Team (Late st Contact Info) Description 06/05/2024 Telephone Hematology/Oncology Treatment, [place] [address] [place] [address] Em Ng MD [address] [place] [address] Appointment (Yee) Allergies No known [...] and class I obesity. Per review of TATTOO AND BODY ARTIST documentation of 09/25/23, blood glucose values have [...] Recommend nutrition consult with RDN (Registered Dietitian Branch Manager). Lifestyle changes are also indicated [...] and folate levels and referral to a athletic scout. If hemoglobin levels are below 8 g/dl, we recommend Maternal Medicine ultrasound for growth every 4 weeks after 24 weeks. Consider a blood transfusion if hemoglobin levels fall below 6 g/dL. ([employer] Obstetricians and Door Cutter Practice Bulletin Number 95, December,). Consider [...] money to get more. 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 Ng- any issues with patient traveling on a plane to [place] for a work trip in June? * [...] Description 06/12/2024 10:00 AM EST Laboratory Laboratory [facility] [address] [place] [address] [place] Lab [address] [facility] [place], [place] [address] 06/12/2024 11:00 AM EST Hem/Onc Treatment Hematology/Oncology Treatment, [place] [address] [place] [address] [place], Chair 6 Hem Onc [address] [place] [address] 06/19/2024 9:00 AM EST Laboratory Laboratory [facility] [place] [address] [place] [address] [place] Lab [facility] 200 [facility] [place] [address] 06/19/2024 9:30 AM EST Office Visit Hematology/Oncology [facility] [place] [address] [place] [address] Em Ng MD [address] [place] [address] [place] [address] 06/19/2024 10:00 AM EST Hem/Onc Treatment Hematology/Oncology Treatment, [place] [address] [place] [address] [place], Chair 4 Hem Onc Scenery [address] [place] [address] 08/06/2024 9:00 AM EST Telemedicine Genetics [facility], [facility] [address] [place] [address] Estephania Reyes, MS [address] [place], [place] [phone] Health Maintenance Due Date Last Done Comments [...] this encounter Medical Devices Implanted Type Area Chain Saw Driver Device Identifier Shelf Expiration Date Model / Serial / Lot Therese Angulo 4fr 11cm - [id number] Implanted:Qty : 1 on 02/08/2024 by Jeffrey Kerr MD at OR [facility] [id number] 08/16/2028 [id number] / / [id number] Port Implant W8f Poly Cath - [id number] Implanted:Qty : 1 on 05/02/2024 by Iam Curry MD at OR [facility] Right: Chest CR BARD : PERIPHERAL VASCULAR [id number] 05/17/2025 [id number] / / [id number] documented as of this encounter Care Teams Hospice Massage Therapist Relationship Specialty Start Date End Date Malinda Owens CRNP [address] [place] [address] PCP - General Nurse Practitioner 09/20/23 documented as of this encounter
--- OUTSIDE RECORDS SUMMARY | 2024-09-05 14:36 | External Medical Summary ---
Author Name Unknown Address Unknown Organization [facility] [place] [address] Laboratory Report Ordering Provider Test Date Status LISE JAVIER 06/12/2024 09:59:20 Final Observation Date Value Abnormality Reference (Units ) Status Nucleated erythrocytes/100 leukocytes [Ratio] in Blood by Automated count 06/12/2024 09:59:20 Final Variant lymphocytes [Presence] in Blood by Light microscopy 06/12/2024 09:59:20 Present Abnormal None Seen Final Performing Location [facility] [place] [address]
--- OUTSIDE RECORDS SUMMARY | 2024-09-05 14:36 | External Medical Summary | Summary of Care ---
Author Name Unknown Organization [facility] Address [address] [place] [address] Phone [phone] Care Team Providers Care Air Defense Artillery Officer Name Role Phone Owens Ridgemargaret AD Primary Care Provider [phone] Reason for Visit * Reason Onset Date Comments Appointment 06/05/2024 Yee Encounter Details Date Type Department Care Team (Late st Contact Info) Description 06/05/2024 Telephone Hematology/Oncology Treatment, [place] [address] [place] [address] Em Ng MD [address] [place] [address] Appointment (Yee) Allergies No known [...] Enrolled in Current Health. Plans to pickle water pump operator meter from pharmacy today. Instructions provided [...] and class I obesity. Per review of CAN VACUUM TESTER documentation of 09/25/23, blood glucose values have [...] nutrition consult with RDN (Registered Dietitian Final Assembler). Lifestyle changes are also indicated including optimizing [...] and folate levels and referral to a job press feeder. If hemoglobin levels are below 8 g/dl, we recommend Maternal Medicine ultrasound for growth every 4 weeks after 24 weeks. Consider a blood transfusion if hemoglobin levels fall below 6 g/dL. ([employer] Obstetricians and Kitchen Lead Practice Bulletin Number 95, December,). Consider Venofer [...] money to get more. 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 * [...] Description 06/12/2024 10:00 AM EST Laboratory Laboratory [facility] [address] [place] [address] [place] Lab [address] [facility] [place], [place] [address] 06/12/2024 11:00 AM EST Hem/Onc Treatment Hematology/Oncology Treatment, [place] [address] [place] [address] [place], Chair 6 Hem Onc [address] [place] [address] 06/19/2024 9:00 AM EST Laboratory Laboratory [facility] [place] [address] [place] [address] [place] Lab [facility] 200 [facility] [place] [address] 06/19/2024 9:30 AM EST Office Visit Hematology/Oncology [facility] [place] [address] [place] [address] Em Ng MD [address] [place] [address] [place] [address] 06/19/2024 10:00 AM EST Hem/Onc Treatment Hematology/Oncology Treatment, [place] [address] [place] [address] [place], Chair 4 Hem Onc Scenery [address] [place] [address] 08/06/2024 9:00 AM EST Telemedicine Genetics [facility], [facility] [address] [place] [address] Estephania Reyes, MS [address] [place], [place] [phone] Health Maintenance Due Date Last Done Comments [...] encounter Medical Devices Implanted Type Area Manager Clinical Informatics Device Identifier Shelf Expiration Date Model / Serial / Lot Therese Angulo 4fr 11cm - [id number] Implanted:Qty : 1 on 02/08/2024 by Jeffrey Kerr MD at OR [facility] [id number] 08/16/2028 6546 / / [id number] Port Implant W8f Poly Cath - [id number] Implanted:Qty : 1 on 05/02/2024 by Iam Curry MD at OR [facility] Right: Chest CR BARD : PERIPHERAL VASCULAR [id number] 05/17/2025 [id number] / / [id number] documented as of this encounter Care Teams Air Defense Artillery Officer Relationship Specialty Start Date End Date Malinda Owens CRNP [address] [place] [address] PCP - General Nurse Practitioner 09/20/23 documented as of this encounter
--- OUTSIDE RECORDS SUMMARY | 2024-09-05 14:36 | External Medical Summary | Summary of Care ---
Author Name Unknown Organization [facility] Address [address] [place] [address] Phone [phone] Care Team Providers Care Supervisor Aircraft Maintenance Name Role Phone Ridge Owensmargaret AD Primary Care Provider [phone] Reason for Visit * Reason Onset Date Comments Appointment 06/09/2024 Encounter Details Date Type Department Care Team (Late st Contact Info) Description 06/09/2024 Telephone Hematology/Oncology Treatment, [facility] [address] [place] [address] Em Ng MD [address] [place] [address] Appointment Allergies No known active allergiesdocumented as of this encounter (statuses as of 06/10/2024) Medications 29-1 MG Oral Tablet Chewable Take [...] as of this encounter (statuses as of 06/10/2024) Active Problems Problem Noted Date Diagnosed Date [...] class I obesity. Per review of [facility] documentation of 09/25/23, blood glucose values have [...] Recommend nutrition consult with RDN (Registered Dietitian Professor Of Chemical Engineering). Lifestyle changes are also indicated including optimizing [...] and folate levels and referral to a quarry supervisor open pit. If hemoglobin levels are below 8 g/dl, we recommend Maternal Medicine ultrasound for growth every 4 weeks after 24 weeks. Consider a blood transfusion if hemoglobin levels fall below 6 g/dL. ([employer] [facility] [facility] Bulletin Number 95, December,). Consider Venofer [...] as of this encounter (statuses as of 06/10/2024) Resolved Problems Problem Noted Date Diagnosed Date Resolved Date Abnormal glucose tolerance i n mother complicating 04/19/2023 08/31/2023 Overview (04/19/2023): Failed early glucola. 3hr GTT ordered documented as of this encounter (statuses as of 06/10/2024) Immunizations Name Administration Dates Next Due DTP [...] money to get more. Never true 03/26/2024 Lincoln Depression Scale Answer Date Recorded Lincoln Depression Scale Total 6 12/11/2023 The thought [...] Description 06/12/2024 10:00 AM EST Laboratory Laboratory [facility] [address] [place] [phone] [place], Lab Scenery [address] [place] [address] 06/12/2024 11:00 AM EST Hem/Onc Treatment Hematology[address]cology [address] [phone] [place], Chair 6 Hem Onc Scen[address] [place] [address] 06/19/2024 9:00 AM EST Laboratory Laboratory [facility] [address] [place] [address] [place], Lab Scenery [address] [facility] [place] [address] 06/19/2024 9:30 AM EST Office Visit Hematology/Oncology [facility] [address] [place] [phone] Macarena Valerio, AD [address] [facility] [address] 06/19/2024 10:00 AM EST Hem/Onc Treatment Hematology/Oncology Treatment, [address] [phone] [place], Chair 4 Hem Onc Scen[address] [place] [address] 08/06/2024 9:00 AM EST Telemedicine Genetics HemOnc, [facility] [address] [place], [place] [id number] Estephania Reyes, MS [address] [place], [place] [id number] Health Maintenance Due Date Last Done Comments [...] this encounter Medical Devices Implanted Type Area Pipe Threader Device Identifier Shelf Expiration Date Model / Serial / Lot Stent Angulo 4fr 11cm - [id number] Implanted:Qty : 1 on 02/08/2024 by Jeffrey Kerr MD at OR [facility] [employer] [id number] 08/16/2028 [id number] / / [id number] Port Implant W8f Poly Cath - [id number] Implanted:Qty : 1 on 05/02/2024 by Iam Curry MD at OR [facility] Right: Chest CR BARD : PERIPHERAL VASCULAR [id number] 05/17/2025 [id number] / / [id number] documented as of this encounter Care Teams Supervisor Aircraft Maintenance Relationship Specialty Start Date End Date Malinda Owens CRNP [address] [place] [address] PCP - General Nurse Practitioner 09/20/23 documented as of this encounter
--- OUTSIDE RECORDS SUMMARY | 2024-09-05 14:36 | External Medical Summary ---
Author Name Unknown Address Unknown Organization [id number]:[facility] [address] [place] [address] Laboratory Report Ordering Provider Test Date Status LISE JAVIER 06/12/2024 09:59:20 Final Observation Date Value Abnormality Reference (Units ) Status BUN 06/12/2024 09:59:20 17 6-20 (mg/dL) Final Creatinine 06/12/2024 09:59:20 0.8 0.5-1.0 (mg/dL) Final Glomerular filtration rate/1.73 sq M.predicted [Volume Rate/Area] in Serum, Plasma or Blood by Creatinine-based formula (CKD-EPI) 06/12/2024 09:59:20 >90 >=60 (mL/min) Final eGFR is calculated based on the CKD-EPI 2020 equation. Sodium 06/12/2024 09:59:20 140 135-146 (m mol/L) Final Potassium 06/12/2024 09:59:20 4.1 3.5-5.1 (m mol/L) Final Cl 06/12/2024 09:59:20 105 98-107 (mm ol/L) Final CO2 06/12/2024 09:59:20 19 Below low normal 22- 32 (mmol/L) Final Anion gap 06/12/2024 09:59:20 16 Above high normal 7- 15 (mmol/L) Final Glucose 06/12/2024 09:59:20 160 Above high normal 70 -120 (mg/dL) Final Albumin 06/12/2024 09:59:20 4.6 3.8-5.0 (g /dL) Final AST (Aspartate aminotransferase) 06/12/2024 09:59:20 11 10-35 (U/L) Fin al Alk Phos 06/12/2024 09:59:20 96 35-130 (U/ L) Final Bilirubin, Total 06/12/2024 09:59:20 0.4 <=1 .2 (mg/dL) Final Calcium 06/12/2024 09:59:20 9.9 8.4-10.2 ( mg/dL) Final Protein 06/12/2024 09:59:20 7.8 6.0-8.3 (g /dL) Final ALT (Alanine aminotransferase) 06/12/2024 09:59:20 15 10-35 (U/L) Clifton [email or web address] Performing Location [facility] [address] [place] [address]
[2024-09-05] MEDS: VANCOMYCIN HCL 2,250 MG in SODIUM CHLORIDE 0.9% 500 ML IV ONE (14:37)
--- OUTSIDE RECORDS SUMMARY | 2024-09-05 14:37 | External Medical Summary ---
Author Name Unknown Address Unknown Organization K01[place] [place] [address] [facility] [address] Laboratory Report Ordering Provider Test Date Status LISE JAVIER 06/05/2024 10:09:46 Final Observation Date Value Abnormality Reference (Units ) Status TSH 06/05/2024 10:09:46 0.69 0.27-4.20 (uIU/mL) Final Performing Location [facility] [place] [address] [facility] [address]
--- OUTSIDE RECORDS SUMMARY | 2024-09-05 14:37 | External Medical Summary ---
Author Name Unknown Address Unknown Organization K09:[facility] [address] [place] [address] Laboratory Report Ordering Provider Test Date Status LISE JAVIER 06/05/2024 10:09:46 Final Observation Date Value Abnormality Reference (Units ) Status SYNC LEUKOCYTES IN BLOOD BY AUTOMATED COUNT 06/05/2024 10:09:46 6.32 4.00-10.80 (K/uL) Final Segs 06/05/2024 10:09:46 83.5 Above high normal 40.0-75.0 (%) Final Lymphs % 06/05/2024 10:09:46 14.6 Below low normal 18.0-42.0 (%) Final Monos 06/05/2024 10:09:46 1.7 1.0-11.0 (%) Final Eosinophils 06/05/2024 10:09:46 0.0 0.0-6.0 (%) Final Basos 06/05/2024 10:09:46 0.2 0.0-2.0 (%) Final Absolute Segs 06/05/2024 10:09:46 5.28 1.80-7.70 (K/uL) Final Lymphs, absolute 06/05/2024 10:09:46 0.92 Below low normal 1.00-4.80 (K/ul) Final Monos, Abs 06/05/2024 10:09:46 0.11 0.00-1.10 (K/uL) Final Eos, Abs 06/05/2024 10:09:46 0.00 0.00-0.70 (K/uL) Final Basos, Abs 06/05/2024 10:09:46 0.01 0.00-0.20 (K/uL) Final Performing Location [facility] [address] [place] [address]
--- OUTSIDE RECORDS SUMMARY | 2024-09-05 14:37 | External Medical Summary | Summary of Care ---
Author Name Unknown Organization [facility] Address [address] [facility] [place] [address] Phone [phone] Care Team Providers Care Metal Dealer Name Role Phone Malinda Owens Primary Care Provider [phone] Reason for Visit * Reason Comments Chemotherapy Follow Up 1st treatment Encounter Details Date Type Department Care Team (Late st Contact Info) Description 05/08/2024 9:00 AM EST Office Visit Hematology/Oncology [facility] [place] [address] [place] [address] Em Ng MD [address] [facility] [place] [address] Malignant neoplasm of upper-outer quadrant of left breast in female, estrogen receptor negative (HCC)* Allergies No known active allergiesdocumented as of this encounter (statuses as of 05/29/2024) Medications 19 29-1 MG Oral Tablet Chewable [...] TO ACCESSING. 30 g 05/05/20 24 Active dexAMETHasone 4 MG Oral Tablet (Decadron)Indicati ons:Malignant neoplasm of upper-outer quadrant of left breast in female, estrogen receptor negative (HCC),Encounter for antineoplastic chemotherapy,Encou nter for prevention of neutropenia due to chemotherapy Take 2 Tablets by mouth in the morning for 3 days. With food on days 2, 3, and 4 of chemo and as directed.. Do not start before May 07, 2024. 24 Tablet 05/07/20 24 024 OLANZapine 10 MG Oral Tablet (zyPREXA)Indicatio ns:Malignant neoplasm of upper-outer quadrant of left breast in female, estrogen receptor negative (HCC),Encounter for antineoplastic chemotherapy,Encou nter for prevention of neutropenia due to chemotherapy Take 1 Tablet by mouth at bedtime for 4 days. On days 1, 2, 3, and 4 of chemo. Do not start before May 06, 2024. 16 Tablet 05/06/20 24 024 documented as of this encounter (statuses as of 05/29/2024) Active Problems Problem Noted Date Diagnosed Date [...] Health. 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 Instructions [...] and class I obesity. Per review of AUGER OPERATOR documentation of 09/25/23, blood glucose values [...] Recommend nutrition consult with RDN (Registered Dietitian Air Brake Tester). Lifestyle changes are also indicated including optimizing [...] folate levels and referral to a director global sales. If hemoglobin levels are below 8 g/dl, we recommend Maternal Medicine ultrasound for growth every 4 weeks after 24 weeks. Consider a blood transfusion if hemoglobin levels fall below 6 g/dL. ([employer] and Asset Management Coordinator Practice Bulletin Number 95, December,). Consider [...] as of this encounter (statuses as of 05/29/2024) Resolved Problems Problem Noted Date Diagnosed Date Resolved Date Abnormal glucose tolerance i n mother complicating 04/19/2023 08/31/2023 Overview (04/19/2023): Failed early glucola. 3hr GTT ordered documented as of this encounter (statuses as of 05/29/2024) Immunizations Name Administration Dates Next Due DTP [...] money to get more. Never true 03/26/2024 [place] Depression Scale Answer Date Recorded [place] Depression Scale Total 6 12/11/2023 The thought [...] Sign Reading Time Taken Comments Blood Pressure 100/67 05/08/2024 8:58 AM EST Pulse 54 05/08/2024 8:58 AM EST Temperature 36.3 C (97.4 F) 05/08/2024 8:58 AM ES T Respiratory Rate - - Oxygen Saturation 98% 05/08/2024 8:58 AM EST Inhaled Oxygen Concentration - - Weight 90.6 kg (199 lb 11.2 oz) 05/08/2024 8:58 AM EST Height - - Body Mass Index 29.48 05/02/2024 10:35 AM EST documented in this encounter Progress Notes * Em Ng MD - 05/08/2024 9:24 AM EST Images from the original note were not included. Date of visit: 05/08/2024 Subjective Yuli Gutierrez is a 29 year old female with Left Breast Cancer Clinical Stage 1 ([id number]), triple negative, presents to start chemotherapy with Carbo+Taxol+Keytruda on 05/08/2024. HPI: Yuli Gutierrez is a 29 year old female seen for Medical Oncology consultation on 04/24/2024 for evaluation and discussion of newly diagnosed L breast cancer that was found upon self examination when she felt a firm, nontender, mobile, approximately 1 in round mass approximately at 3:00 o'clock. position in her left breast on 04/08/2024. Patient is , gave to her daughter via s/p spontaneous vaginal delivery on 10/30/2023 and was lactating/. Patient had a previous miscarriage in 2022. Her most recent was complicated with gestational diabetes mellitus. 02/08/2024: Diagnostic ERCP: Choledocholithiasis, complete removal/one plastic pancreatic stent placed into ventral pancreatic duct 04/06/2024: Pt self palpated lump in her left breast has not been painful and is not associated with bloody nipple discharge or skin changes. Mass felt as firm and mobile. Pt unsure how long lump hasbeen present and describes it as non- tender with no noticeable change in size. She states she has not had bloody nipple discharge or any breast skin changes. Patient was breast feeding and pumps 4x daily. 04/09/2024: She underwent ultrasound of the left [...] with invasive mammary (ductal) carcinoma, NOS, grade 3. Estrogen receptor: Negative. Progesterone receptor:Negative. HER-2/trent oncoprotein: Negative. A. Breast, left, 2:00 / 3:00 position, 12 cm from nipple, core biopsy: Invasive mammary carcinoma of no special type, grade 3. The lesion exhibits some medullary features. Comment: The lesion exhibits some medullary features; however, correlation with the subsequent excisional specimen is required. Biomarkers will be reported separately. This case was discussed with Kina OLIVA) on 04/17/2024. at 1032 Clinical History 29-year-old female presenting with a firm and mobile left breast lump first noticed 04/06/2024. Patient is unsure how long lump has been present and describes it as non-tender with no noticeable change in size. She states she has not had bloody nipple discharge or any breast skin changes. Patient is currently breast feeding and pumps 4x daily. Order Comments Ultrasound guided core biopsy of a hypoechoic left breast 2/3:00 12 cm fn mass measuring 17 x 11 x 18 mm. R/O fibroadenoma. R/O phyllodes. Gross Description A. Breast, Left. Received in formalin with a container labeled with "Yuli Gutierrez", "[id number]", "1995" and " left breast 2/three o'clock 12 cm from nipple". Received are multiple cores of carrillo-yellow fibroadipose tissue ranging from less than 0.1 cm to 1.5 cm in length, each approximately 0.2 cm in diameter. The specimen is entirely submitted in cassettes A1 and A2. Collection/ischemic time: time 11:03 AM, date 04/15/2024, time in formalin: time not provided, date not provided. Gross By: Microscopic Description Invasive carcinoma with necrosis Microscopic examination shows sheets of infiltrating epithelial cells with prominent necrosis and without luminal formation with nuclei are 3-4 larger than normal duct epithelial nuclei and containing prominent nucleoli. Mitotic figures are frequent (>10/10hpf). There is no evidence of lymphovascular invasion. The largest dimension of invasive tumor in the specimen is 1.4 cm. An immunohistochemical stain for TRPS1 shows strong and diffuse nuclear positivity. A stain for GATA3 shows focal weak nuclear positivity. These findings are consistent with mammary carcinoma. A. Breast, left, 2:00 / 3:00 position, 12 cm from nipple, core biopsy (block [id number]): Invasive mammary carcinoma of no special type, grade 3. Estrogen Receptor (ER) protein expression is NEGATIVE <1% nuclear positivity COMMENT: Assay internal and external control immunoreactivity is appropriate. Progesterone Receptor (ME) protein expression is NEGATIVE <1% nuclear positivity COMMENT: Assay internal and external control immunoreactivity is appropriate. HER2 oncoprotein expression is NEGATIVE ( 0 average membranous intensity) 04/24/2024: Pt presents with her , [id number] as well as her mother for today's Medical Oncology consultation appointment on 04/24/2024. She has not had any previous breast imaging studies. Family history of breast cancer in maternal grandmother's sister - in her 30s. No genetic testing done in family. No family history of ovarian cancer. Menarche at age: 12 Menopause at age: n/a Number of children: Patient's age at first live : 28 Did you breast feed any of your children: Yes Ever take oral contraceptives? No Ever take estrogen? 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 She is scheduled to undergo bilateral breast MRI on 05/07/2024. Orders entered: Labs today PET scan Echocardiogram Chemo education MRI breasts Mediport Follow-up: Return in about 2 weeks (around 05/08/2024). Chemo consent signed on 04/24/2024: Chemo Protocol: Pembrolizumab 200 mg D1 + Paclitaxel 80 mg/m D1, 8, 15 + Carboplatin AUC=5 D1 q21 Days x 12 Weeks, Followed by Pembrolizumab 200 mg + Doxorubicin+ Cyclophosphamide q21 Days x 12 Weeks, Followed by Surgery 05/01/2024: PET scan revealed FDG avid left outer breast mass measuring 2.1 x 2.2 cm, SUV 13.2 withno evidence of FDG avid locoregional or metastatic disease. 05/02/2024: Underwent right chest wall MediPort placement 05/07/2024: Bilateral breast MRI performed 05/07/2024: The breasts are heterogeneously dense with marked background parenchymal enhancement. In the upper-outer left breast at posterior depth, there is a 2.9 x 2.1 x 2.3 cm irregular enhancing mass containing a biopsy clip reflecting patient's biopsy- proven malignancy. There is no imaging involvement of the skin, chest wall, or nipple. However, themass is very close to the left pectoralis major muscle with 3 mm of fatty tissue intervening and also close to the lateral skin surface with 8 mm from the skin surface to the mass. There is no left lymphadenopathy. There is no suspicious enhancement in the right breast. There is a normal- appearing intramammary lymph node. There is a focus of enhancement in the right medial skin favored to be inflammatory. There is no right lymphadenopathy. A port is seen in the upper right chest wall. PMH: Patient Active Problem List Diagnosis Encounter for supervision of other normal , unspecified trimester Class 1 obesity due to excess calories without serious comorbidity with body mass index (BMI) of 33.0 to 33.9 in adult Antepartum anemia complicating Iron deficiency anemia Excessive growth affecting management of mother, antepartum Diet controlled gestational diabetes mellitus (GDM) in third trimester Malignant neoplasm of upper-outer quadrant of left breast in female, estrogen receptor negative (HCC) Encounter for antineoplastic chemotherapy Encounter for prevention of neutropenia due to chemotherapy Encounter for fertility preservation procedure Suppression of ovarian secretion Current Outpatient Medications Medication Sig Dispense Refill [...] as needed for Nausea. 30 Tablet 3 No current facility-administered medications for this visit. Review of patient's allergies indicates: No Known Allergies Objective BP 100/67 (BP Site: Left Arm, BP Position: Sitting, BP Cuff Size: Large) | Pulse 54 | Temp 36.3 C(97.4 F) (Tympanic) | Wt 90.6 kg (199 lb 11.2 oz) | SpO2 98% | BMI 29.48 kg/m | BSA 2.1 m Physical Exam Constitutional: Appearance: Normal appearance. HENT: Head: Normocephalic and atraumatic. Eyes: General: No scleral icterus. Extraocular Movements: Extraocular movements intact. Conjunctiva/sclera: Conjunctivae normal. Pupils: Pupils are equal, round, and reactive to light. Cardiovascular: Rate and Rhythm: Normal rate and regular rhythm. Heart sounds: No murmur heard. Pulmonary: Effort: Pulmonary effort is normal. Breath sounds: Normal breath sounds. Chest: Comments: R chest MediPort + BREAST EXAMINATION: Right Breast: Right Breast: Masses noted: No Post XRT edema: No Post XRT erythema: No Other palpable abnormality: No Skin: Skin retraction: No Peau d'orange: No Telangectasia: No Scar(s) present: No Other changes: Yes, small pigmented skin lesion midline inframammary crease (4 mm in size) Right Nipple: Nipple inversion: No Pagets: No Nipple discharge: No Right Lymph Nodes: Arm edema: No Palpable axillary adenopathy: No Palpable supraclavicular adenopathy: No Previous axillary incision: No Left Breast: Left Breast: Masses noted: Yes, firm near 2 cm mass at left 2:00 12 cm FN, no skin retraction, not fixed Post XRT edema: No Post XRT erythema: No Other palpable abnormality: No Skin: Skin retraction: No Peau d'orange: No Telangectasia: No Scar(s) present: No Other changes: No Left Nipple: Nipple inversion: No Pagets: No Nipple discharge: No Left Lymph Nodes: Arm edema: No Palpable axillary adenopathy: No Palpable supraclavicular adenopathy: No Previous axillary incision: No Abdominal: General: Abdomen is flat. Bowel sounds are normal. Palpations: Abdomen is soft. Musculoskeletal: Cervical back: Normal range of motion and neck supple. No tenderness. Lymphadenopathy: Cervical: No cervical adenopathy. Skin: Coloration: Skin is not jaundiced or pale. Findings: No bruising. Neurological: General: No focal deficit present. Mental Status: She is alert and oriented to person, place, and time. Psychiatric: Mood and Affect: Mood normal. Behavior: Behavior normal. Thought Content: Thought content normal. Judgment: Judgment normal. ASSESSMENT 29 yr old woman with newly diagnosed left 18 mm triple negative high grade invasive breast cancer found on self exam. She was lactating at the time of diagnosis, has extremely dense tissue on mammography. B/L MRI obtained. Given that this is a triple negative breast cancer, will benefit from preoper ative/neoadjuvant chemotherapy. Discussed the potential benefit of doing this in a neoadjuvant fashion - it will give more time to get the above testing completed, should allow for shrinkage of the tumor to improve cosmetic result, and allows for in vivo assessment of the tumor's response to chemotherapy. 05/01/2024: PET scan revealed FDG avid left outer breast mass measuring 2.1 x 2.2 cm, SUV 13.2 withno evidence of FDG avid locoregional or metastatic disease. 05/02/2024: Underwent right chest wall MediPort placement 05/07/2024: Bilateral breast MRI performed 05/07/2024: The breasts are heterogeneously dense with marked background parenchymal enhancement. In the upper-outer left breast at posterior depth, there is a 2.9 x 2.1 x 2.3 cm irregular enhancing mass containing a biopsy clip reflecting patient's biopsy- proven malignancy. There is no imaging involvement of the skin, chest wall, or nipple. However, themass is very close to the left pectoralis major muscle with 3 mm of fatty tissue intervening and also close to the lateral skin surface with 8 mm from the skin surface to the mass. There is no left lymphadenopathy. There is no suspicious enhancement in the right breast. There is a normal- appearing intramammary lymph node. There is a focus of enhancement in the right medial skin favored to be inflammatory. There is no right lymphadenopathy. A port is seen in the upper right chest wall. Malignant neoplasm of upper-outer quadrant of left breast in female, estrogen receptor negative (HCC) (Primary) - NEW SUPPORTIVE CARE PLAN PLAN OF CARE DISCUSSED WITH PATIENT ON 05/08/2024 : D/w extensively today about fertility preservation, answered all her questions, contacted Dr. Sinha for the feasibility of upfront surgery in the event if pt decides to proceed with oocyte retrieval. Dr. Sinha agreed to upfront surgery if pt desires it. The patient was accompanied by her and her mother. After extensive discussion, the patient decided NOT to delay neoadjuvant chemo in order to undergo oocyte retrieval and cryopreservation, also expresssed the concern about the entire process not being covered by insurance. Discussed alternate option to use Lupron to preserve fertility by reducing the chances of oocyte senescence while receiving chemo. Start chemo today on 05/08/2024 with Keytruda+carbo+Taxol Follow up in 1 week (around 05/15/2024) for PUBLIC HEALTH EPIDEMIOLOGIST/PA/SHAYY follow up. Will try to get Lupron approved to be given today if possible Return to see PUBLIC HEALTH EPIDEMIOLOGIST in 1 week for post chemo follow up and to receive day 8 of cycle 1 chemo See me on day 1 cycle 2 chemo in 3 weeks Em Ng MD documented in this encounter Nursing Notes * Em Caballero, BRIGHT DARLING - 05/08/2024 8:59 AM EST Patient identifed by name and [...] it for you? ALREADY ACTIVE Filed Vitals: 05/08/24 0858 BP: 100/67 Pulse: 54 Temp: 36.3 C (97.4 F) TempSrc: Tympanic SpO2: 98% Weight: 90.6 kg (199 lb 11.2 oz) Patient was instructed to not get [...] Team (Late st Contact Info) Description 06/05/2024 9:50 AM EST Laboratory Laboratory Scenery [facility] [address] [place] [phone] [place], Lab Scenery [address] [place] [address] [id number] 06/05/2024 11:00 AM EST Hem/Onc Treatment Hematology/Oncology Treatment, [place] 200 [facility] [place] [address] [place], Chair 6 Hem Onc Scenery [address] [place] [address] 06/12/2024 10:00 AM EST Laboratory Laboratory [facility] [place] [address] [place] [address] [place], Lab Scenery [address] [place] [address] [address] 06/12/2024 11:00 AM EST Hem/Onc Treatment [facility]ematology[facility]Oncology Treatment, [place] [facility] [place] [address] [place], Chair 6 Hem Onc Scenery [address] [place] [address] 06/19/2024 9:00 AM EST Laboratory Laboratory [facility] [place] [address] [place] [phone] [place], Lab [facility] [address] [facility] [place] [address] 06/19/2024 9:30 AM EST Office Visit Hematology/Oncology [facility] [place] [address] [facility] [place] [phone] Em [facility] MD [facility] [address] 06/19/2024 10:00 AM EST Hem/Onc Treatment Hematology/Oncology Treatment, [place] 200 [facility] [phone] [place], Chair 11 Hem Onc [facility] 200 [facility] [place] [address] 08/06/2024 9:00 AM EST Telemedicine Genetics HemOnc, [facility] [address] [place] [address] Estephania Reyes, MS [address] [place] [address] Health Maintenance Due Date Last [...] this encounter Medical Devices Implanted Type Area Numberer And Wirer Device Identifier Shelf Expiration Date Model / Serial / Lot Stent Angulo 4fr 11cm - [id number] Implanted:Qty : 1 on 02/08/2024 by Jeffrey Kerr MD at OR [facility] [employer] [id number] 08/16/2028 [id number] / / [id number] Port Implant W8f Poly Cath - [id number] Implanted:Qty : 1 on 05/02/2024 by Iam Curry MD at OR [facility] Right: Chest CR BARD : PERIPHERAL VASCULAR [id number] 05/17/2025 [id number] / / [id number] documented as of this encounter Visit Diagnoses [...] Primary documented in this encounter Care Teams Metal Dealer Relationship Specialty Start Date End Date Malinda Owens CRNP [address] [facility] [place] [address] PCP - General Nurse Practitioner 09/20/23 documented as of this encounter
--- OUTSIDE RECORDS SUMMARY | 2024-09-05 14:37 | External Medical Summary | Summary of Care ---
Author Name Unknown Organization [facility] Address [address] [place] [address] Phone [phone] Care Team Providers Care Contracting Executive Name Role Phone Roman Ridgemargaret AD Primary Care Provider [phone] Encounter Details Date Type Department Care Team (Late st Contact Info) Description 05/13/2024 Orders Only Hematology/Oncology, [facility] [address] [place] [address] Em Ng MD [address] [place] [phone] signed Allergies No known active allergiesdocumented as of [...] Nausea. 30 Tablet 3 05/08/20 24 Active documented as of this encounter [...] in Current Health. 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 [...] and class I obesity. Per review of JET AIRCRAFT SERVICER documentation of 09/25/23, blood glucose values have [...] Recommend nutrition consult with RDN (Registered Dietitian Mobile Architect). Lifestyle changes are also indicated including [...] and folate levels and referral to a automotive tire worker. If hemoglobin levels are below 8 g/dl, we recommend Maternal Medicine ultrasound for growth every 4 weeks after 24 weeks. Consider a blood transfusion if hemoglobin levels fall below 6 g/dL. ([employer] and Staff Anesthetist Practice Bulletin Number 95, December,). Consider Venofer [...] money to get more. 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 Not on file Not on file documented as of this encounter Progress Notes * Em Ng MD - 05/13/2024 4:33 AM EST signed documented in this encounter Plan of Treatment Upcoming Encounters Date Type Department Care Team (Late st Contact Info) Description 06/05/2024 9:50 AM EST Laboratory Laboratory [place] [place] [address] [place] [phone] Khris Amato Scenery [address] [facility] [place] [address] 06/05/2024 11:00 AM EST Hem/Onc Treatment Hematology/Oncology Treatment, [place] 200 [facility], [place] [phone] [place], Chair 6 Hem Onc Scenery [address] [place], [place] [address] 06/12/2024 10:00 AM EST Laboratory Laboratory [facility] [address] [place] [phone] [place], Lab Scenery [address] [place], [place] [address] 06/12/2024 11:00 AM EST [facility] [address] [facility], [place] [phone] [place], Chair 6 Hem Onc Scenery [address] [place], [place] [address] 06/19/2024 9:00 AM EST Laboratory Laboratory [facility] [address] [place] [phone] [place], Lab Scenery [address] [facility] [place], [place] [address] 06/19/2024 9:30 AM EST Office Visit Hematology/Oncology [facility] [address] [place], [place] [phone] Em Ng MD [address] [place] [address] [place] [phone] 06/19/2024 10:00 AM EST Hem[facility] 200 [facility], [place] [phone] [place], Chair 11 Hem Onc Scenery [address] [place], [place] [address] 08/06/2024 9:00 AM EST Telemedicine Genetics HemOn, [facility] [address] [place] [address] Eric Estephania Sharri, [place] [address] [place] [address] Health Maintenance Due Date Last Done Comments [...] this encounter Medical Devices Implanted Type Area Education Department Registrar Device Identifier Shelf Expiration Date Model / Serial / Lot Stent Angulo 4fr 11cm - [id number] Implanted:Qty : 1 on 02/08/2024 by Jeffrey Kerr MD at OR [facility] [employer] [id number] 08/16/2028 [id number] / / [id number] Port Implant W8f Poly Cath - [id number] Implanted:Qty : 1 on 05/02/2024 by Iam Curry MD at OR [facility] Right: Chest CR BARD : PERIPHERAL VASCULAR [id number] 05/17/2025 [id number] / / [id number] documented as of this encounter Care Teams Contracting Executive Relationship Specialty Start Date End Date Malinda Owens CRNP [address] [place] [address] PCP - General Nurse Practitioner 09/20/23 documented as of this encounter
--- OUTSIDE RECORDS SUMMARY | 2024-09-05 14:37 | External Medical Summary | Summary of Care ---
Author Name Unknown Organization [facility] Address [address] [place] [address] Phone [phone] Care Team Providers Care Gas Turbine Powerplant Mechanic Helper Name Role Phone Malinda Owens Primary Care Provider [phone] Reason for Visit * Reason Comments Chemotherapy Carbo/Taxol C2,D8 * Episode Based Medications (Routine) - Authorized Specialty Diagnoses / Procedures Referred By Contac t Referred To Contact Diagnoses Malignant neoplasm of upper-outer quadrant of left breast in female, estrogen receptor negative (HCC) Encounter for antineoplastic chemotherapy Encounter for prevention of neutropenia due to chemotherapy Procedures KS DOXORUBIC HCL 10 MG VL CHEMO KS CARBOPLATIN INJECTION KS FOSAPREPITANT INJECTION KS INJ PEMBROLIZUMAB KS INJECTION, FULPHILA KS PACLITAXEL INJECTION KS INJ CYCLOPHOSPHAMD AUROMEDIC Em Ng MD [address] [facility] [place] [address] Phone: tel: fax: Hematology/Oncology Treatment, [address] [place] [address] Phone: tel: fax: Referral ID Status Reason Start Date Expiration Date V isits Requested Visits Authorized [id number] Authorized 04/30/2024 07/07/2024 999 [id number] Encounter Details Date Type Department Care Team (Latest Contact Info) Description 06/05/2024 11:00 AM EST Hem/Onc Treatment Hematology/Oncolog y Treatment, [address] [place] [address] [place], Chair 6 Hem Onc [address] [address] Malignant neoplasm of upper-outer quadrant of left breast in female, estrogen receptor negative (HCC)*; Encounter for antineoplastic chemotherapy; Encounter for prevention of neutropenia due to chemotherapy Allergies No known active allergiesdocumented as of this encounter (statuses as of 06/05/2024) Medications 19 29-1 MG Oral Tablet Chewable [...] needed for Nausea. 30 Tablet 3 05/08/20 Active dexAMETHasone 4 MG Oral Tablet (Decadron)Indicati ons:Encounter for antineoplastic chemotherapy,Jess christie neoplasm of upper-outer quadrant of left breast in female, estrogen receptor negative (HCC) Take two tablets the night before and morning of each chemotherapy treatment 40 Tablet 05/22/20 Active documented as of this encounter (statuses as of 06/05/2024) Active Problems Problem Noted Date Diagnosed Date [...] and class I obesity. Per review of SALES OPERATIONS SPECIALIST documentation of 09/25/23, blood glucose values [...] Recommend nutrition consult with RDN (Registered Dietitian Textile Broker). Lifestyle changes are also indicated including optimizing [...] and folate levels and referral to a log raft worker. If hemoglobin levels are below 8 g/dl, we recommend Maternal Medicine ultrasound for growth every 4 weeks after 24 weeks. Consider a blood transfusion if hemoglobin levels fall below 6 g/dL. ([employer] Operative Supervisor Practice Bulletin Number 95, December,). Consider [...] as of this encounter (statuses as of 06/05/2024) Resolved Problems Problem Noted Date Diagnosed Date Resolved Date Abnormal glucose tolerance i n mother complicating 04/19/2023 08/31/2023 Overview (04/19/2023): Failed early glucola. 3hr GTT ordered documented as of this encounter (statuses as of 06/05/2024) Immunizations Name Administration Dates Next Due DTP [...] to get more. 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 * Laron Emerson, RN - 06/05/2024 11:02 AM EST Chair [...] Description 06/12/2024 10:00 AM EST Laboratory Laboratory [facility] [place] [address] [place] [phone] [place], Lab Scenery [address] [place] [address] 06/12/2024 11:00 AM EST Hem/Onc Treatment Hematology/Oncology Treatment, [place] [address] [facility] [place] [address] [place], Chair 6 Hem Onc Sc[address] [place] [address] 06/19/2024 9:00 AM EST Laboratory Laboratory [facility] [place] [address] [place] [phone] [place], Lab Scenery [address] [place] [address] 06/19/2024 9:30 AM EST Office Visit Hematology/Oncology [facility] [place] [address] [place] [address] Em Ng MD [address] [place] [address] [place] [phone] 06/19/2024 10:00 AM EST Hem/Onc Treatment Hematology/Oncology Treatment, [place] [address] [facility] [place] [phone] [place], Chair 4 Hem Onc [address] [place] [address] 08/06/2024 9:00 AM EST Telemedicine Genetics [facility], [facility] [address] [place] [address] Estephania Reyes Sharri, MS [address] [place] [address] Health Maintenance Due Date Last Done Comments [...] this encounter Medical Devices Implanted Type Area Drapery Worker Device Identifier Shelf Expiration Date Model / Serial / Lot Stent Angulo 4fr 11cm - [id number] Implanted:Qty : 1 on 02/08/2024 by Jeffrey Kerr MD at OR [facility] [employer] [id number] 08/16/2028 [id number] / / [id number] Port Implant W8f Poly Cath - [id number] Implanted:Qty : 1 on 05/02/2024 by Iam Curry MD at OR [facility] Right: Chest CR BARD : PERIPHERAL VASCULAR [id number] 05/17/2025 [id number] / / [id number] documented as of this encounter Visit Diagnoses [...] ONCE PRN Other, Hypersensitivity Reaction, Starting on Sun06/05/24 at 1045, Until Sun06/06/24 at 1044, For 24 hoursIndications:Malignant neoplasm of upper-outer quadrant of left breast in female, estrogen receptor negative (HCC),Encounter for antineoplastic chemotherapy,Encounter for prevention of neutropenia due to chemotherapy EPINEPHrine 1 MG/ML inj 0.3 mg 0.3 mg, Intramuscular, ONCE PRN Other, Hypersensitivity Reaction or Anaphylaxis, Starting on Sun06/05/24 at 1045, Until Sun06/06/24 at 1044, For 24 hoursIndications:Malignant neoplasm of upper-outer quadrant of left breast in female, estrogen receptor negative (HCC),Encounter for antineoplastic chemotherapy,Encounter for prevention of neutropenia due to chemotherapy hEParin 100 UNIT/ML Lock Flush inj 500 Units 500 Units (5 mL), IV Lock, PRN Other, IV Flush, Starting on Sun06/05/24 at 1045, Until Sun06/06/24 at 1044, For 24 hours, Do not flush if lock, PICC, or central line not in place; IV infusing or unable to flush.Indications:Malignant neoplasm of upper-outer quadrant of left breast in female, estrogen receptor negative (HCC),Encounter for antineoplastic chemotherapy,Encounter for prevention of neutropenia due to chemotherapy Given 06/05/2024 1:13 PM EST 500 Units Hydrocortisone Sod Suc (PF) (Solu-Cortef) inj 100 mg 100 mg, IV Push, ONCE PRN Other, Hypersensitivity Reaction, Starting on Sun06/05/24 at 1045, Until Sun06/06/24 at 1044, For 24 hoursIndications:Malignant neoplasm of upper-outer quadrant of left breast in female, estrogen receptor negative (HCC),Encounter for antineoplastic chemotherapy,Encounter for prevention of neutropenia due to chemotherapy LORAzepam (Ativan) tab 0.5 mg 0.5 mg, Oral, ONCE PRN Anxiety, Nausea, Starting on Bibi 06/05/24 at 1200, Until DiscontinuedIndications:Nancy gnant neoplasm of upper-outer quadrant of left breast in female, estrogen receptor negative (HCC),Encounter for antineoplastic chemotherapy,Encounter for prevention of neutropenia due to chemotherapy meperidine (Demerol) 25 MG/ML inj 25 mg 25 mg, Intramuscular, ONCE PRN Shivering, Chills/Rigors from acute infusion reaction, Starting on Sun06/05/24 at 1045, Until Sun06/06/24 at 1044, For 24 hoursIndications:Malignant neoplasm of upper-outer quadrant of left breast in female, estrogen receptor negative (HCC),Encounter for antineoplastic chemotherapy,Encounter for prevention of neutropenia due to chemotherapy NSS infusion Intravenous, at 50 mL/hr, PRN, Starting on Sun06/05/24 at 1200, Until Discontinued, Maintenance lineIndications:Malignant neoplasm of upper-outer quadrant of left breast in female, estrogen receptor negative (HCC),Encounter for antineoplastic chemotherapy,Encounter for prevention of neutropenia due to chemotherapy Start Infusion 06/05/2024 11:18 AM EST 50 mL/hr oxygen GAS Inhalation, OXYGEN, First dose on Sun06/05/24 at 1130, Until Discontinued, Device/Managed by: Low [...] Push, PRN Other, IV Flush, Starting on Sun06/05/24 at 1045, Until Sun06/06/24 at 1044, For 24 hours, Do not flush if lock, PICC, or central line not in place; IV infusing or unable to flush.Indications:Malignant neoplasm of upper-outer quadrant of left breast in female, estrogen receptor negative (HCC),Encounter for antineoplastic chemotherapy,Encounter for prevention of neutropenia due to chemotherapy Given 06/05/2024 1:13 PM EST 10 mL Inactive Administered Medications - up to 3 most recent administrations Medication Order MAR Action Action Date Dose Rate Site CARBOplatin (Paraplatin) 219 mg in D5W 250 mL infusion 219 mg (rounded from 219.15 mg, Target AUC = 1.5), IV Piggyback, at 510 mL/hr Administer over 30 Minutes, PROTECT FROM LIGHT, ONCE, 1 dose, On Sun06/05/24 at 1400Indications:Malignant neoplasm of upper-outer quadrant of left breast in female, estrogen receptor negative (HCC),Encounter for antineoplastic chemotherapy,Encounter for prevention of neutropenia due to chemotherapy Start Infusion 06/05/2024 12:36 PM EST 219 mg 510 mL/hr dexAMETHasone (Decadron) tab 12 mg 12 mg, Oral, ONCE, On Sun06/05/24 at 1130, For 1 doseIndications:Malignant neoplasm of upper-outer quadrant of left breast in female, estrogen receptor negative (HCC),Encounter for antineoplastic chemotherapy,Encounter for prevention of neutropenia due to chemotherapy Given 06/05/2024 11:09 AM EST 12 mg diphenhydrAMINE (Benadryl) inj 25 mg 25 mg, IV Push, ONCE, On Sun06/05/24 at 1130, For 1 doseIndications:Malignant neoplasm of [...] Given 06/05/2024 11:09 AM EST 20 mg PACLitaxel (Taxol) 165 [...] neutropenia due to chemotherapy Start Infusion 06/05/2024 11:25 AM EST 165 mg 255 mL/hr Palonosetron (Aloxi) inj SOLN 0.25 mg 0.25 mg, IV Push, ONCE, On Bibi 06/05/24 at 1130, For 1 dose, Restricted per [facility] antiemetic guidelinesIndications:Malign ant neoplasm of upper-outer quadrant of left breast in female, estrogen receptor negative (HCC),Encounter for antineoplastic chemotherapy,Encounter for prevention of neutropenia due to chemotherapy Given 06/05/2024 11:09 AM EST 0.25 mg documented in this encounter Care Teams Gas Turbine Powerplant Mechanic Helper Relationship Specialty Start Date End Date Malinda Owens CRNP [address] [place] [address] PCP - General Nurse Practitioner 09/20/23 documented as of this encounter
--- OUTSIDE RECORDS SUMMARY | 2024-09-05 14:37 | External Medical Summary | Summary of Care ---
Author Name Unknown Organization [facility] Address [address] [place] [address] Phone [phone] Care Team Providers Care Neurosurgical Nurse Practitioner Name Role Phone Malinda Owens Primary Care Provider [phone] Reason for Visit * Reason Comments Chemotherapy Carbo/Taxol C2,D8 * Episode Based Medications (Routine) - Authorized Specialty Diagnoses / Procedures Referred By Contac t Referred To Contact Diagnoses Malignant neoplasm of upper-outer quadrant of left breast in female, estrogen receptor negative (HCC) Encounter for antineoplastic chemotherapy Encounter for prevention of neutropenia due to chemotherapy Procedures [place] DOXORUBIC HCL 10 MG VL CHEMO AK CARBOPLATIN INJECTION AK FOSAPREPITANT INJECTION AK INJ PEMBROLIZUMAB AK INJECTION, FULPHILA AK PACLITAXEL INJECTION AK INJ CYCLOPHOSPHAMD AUROMEDIC Em Ng MD [address] [facility] [place] [address] Phone: tel: fax: Hematology/Oncology Treatment, [address] [place] [address] Phone: tel: fax: Referral ID Status Reason Start Date Expiration Date V isits Requested Visits Authorized [id number] Authorized 04/30/2024 07/07/2024 999 [id number] Encounter Details Date Type Department Care Team (Latest Contact Info) Description 06/05/2024 11:00 AM EST Hem/Onc Treatment Hematology/Oncolog y Treatment, [address] [place] [address] [place], Chair 6 Hem Onc [address] [address] Malignant neoplasm of upper-outer quadrant of left [...] and class I obesity. Per review of FINANCE ANALYST documentation of 09/25/23, blood glucose values [...] Recommend nutrition consult with RDN (Registered Dietitian Grinder Needle Tip). Lifestyle changes are also indicated including optimizing [...] and folate levels and referral to a network cabler. If hemoglobin levels are below 8 g/dl, we recommend Maternal Medicine ultrasound for growth every 4 weeks after 24 weeks. Consider a blood transfusion if hemoglobin levels fall below 6 g/dL. ([employer] Communications Designer Practice Bulletin Number 95, December,). Consider [...] money to get more. 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 Not [...] Description 06/12/2024 10:00 AM EST Laboratory Laboratory [facility] [place] [address] [place] [phone] [place], Lab Scenery [address] [place] [address] 06/12/2024 11:00 AM EST Hem/Onc Treatment Hematology/Oncology Treatment, [place] [address] [facility] [place] [address] [place], Chair 6 Hem Onc [address] [place] [address] 06/19/2024 9:00 AM EST Laboratory Laboratory [facility] [place] [address] [place] [phone] [place], Lab Scenery [address] [place] [address] 06/19/2024 9:30 AM EST Office Visit Hematology/Oncology [facility] [place] [address] [place] [address] Em Ng MD [address] [place] [address] [place] [phone] 06/19/2024 10:00 AM EST Hem/Onc Treatment Hematology/Oncology Treatment, [place] [address] [facility] [place] [phone] [place], Chair 4 Hem Onc [address] [place] [address] 08/06/2024 9:00 AM EST Telemedicine Genetics [facility], [facility] [address] [place] [address] Estephania Reyes Sharri, MS [address] [place] [address] Health Maintenance Due Date Last Done Comments [...] this encounter Medical Devices Implanted Type Area Real Estate Associate Attorney Device Identifier Shelf Expiration Date Model / Serial / Lot Stent Angulo 4fr 11cm - [id number] Implanted:Qty : 1 on 02/08/2024 by Jeffrey Kerr MD at OR [facility] [employer] [id number] 08/16/2028 6546 / / [id number] Port Implant W8f Poly Cath - [id number] Implanted:Qty : 1 on 05/02/2024 by Iam Curry MD at OR [facility] Right: Chest CR BARD : PERIPHERAL VASCULAR [id number] 05/17/2025 [id number] / / [id number] documented as of this encounter Visit Diagnoses [...] oxygen GAS Inhalation, OXYGEN, First dose on Bibi 06/05/24 at 1130, Until Discontinued, Device/Managed by: Low [...] at 1130, For 1 dose, Restricted per S antiemetic guidelinesIndications:Malignant neoplasm of upper-outer quadrant of left breast in female, estrogen receptor negative (HCC),Encounter for antineoplastic chemotherapy,Encounter for prevention of neutropenia due to chemotherapy Given 06/05/2024 11:09 AM EST 0.25 mg documented in this encounter Care Teams Neurosurgical Nurse Practitioner Relationship Specialty Start Date End Date Malinda Owens CRNP [address] [place] [address] PCP - General Nurse Practitioner 09/20/23 documented as of this encounter
--- OUTSIDE RECORDS SUMMARY | 2024-09-05 14:37 | External Medical Summary ---
Author Name Unknown Address Unknown Organization K09:[facility] [place] [address] Laboratory Report Ordering Provider Test Date Status LISE JAVIER 06/05/2024 10:09:46 Final Observation Date Value Abnormality Reference (Units ) Status WBC, Total 06/05/2024 10:09:46 6.32 4.00-10.8 0 (K/uL) Final RBC 06/05/2024 10:09:46 3.92 3.85-5.15 (M/uL) Final Hemoglobin 06/05/2024 10:09:46 12.6 12.0-15.3 (g/dL) Final HCT 06/05/2024 10:09:46 38.4 36.0-45.2 (%) Final MCV 06/05/2024 10:09:46 98.0 81.5-97.5 (fL) Final MCH 06/05/2024 10:09:46 32.1 27.0-34.0 (pg) Final MCHC 06/05/2024 10:09:46 32.8 32.0-36.0 (g/dL) Final RDW 06/05/2024 10:09:46 12.6 11.5-15.5 (%) Final Platelets 06/05/2024 10:09:46 238 140-400 (K /uL) Final MPV 06/05/2024 10:09:46 9.9 6.6-11.1 ( fL) Final Performing Location [facility] [place] [address]
--- OUTSIDE RECORDS SUMMARY | 2024-09-05 14:37 | External Medical Summary | Summary of Care ---
Author Name Unknown Organization [facility] Address [address] [facility] [place] [address] Phone [phone] Care Team Providers Care Explosive Expert Name Role Phone Owens Ridgemargaret AD Primary Care Provider [phone] Reason for Visit * Reason Onset Date Comments Appointment 06/05/2024 Yee Encounter Details Date Type Department Care Team (Late st Contact Info) Description 06/05/2024 Telephone Hematology/Oncology Treatment, [place] [address] [place] [address] Em Ng MD [address] [place] [address] Appointment (Yee) Allergies No known [...] and class I obesity. Per review of RACK PUNCHER documentation of 09/25/23, blood glucose values have [...] Recommend nutrition consult with RDN (Registered Dietitian Master In Chancery). Lifestyle changes are also indicated including optimizing [...] folate levels and referral to a power system dispatcher. If hemoglobin levels are below 8 g/dl, we recommend Maternal Medicine ultrasound for growth every 4 weeks after 24 weeks. Consider a blood transfusion if hemoglobin levels fall below 6 g/dL. ([employer] [facility]st[employer] and Metal Casket Assembler Practice Bulletin Number 95, December,). 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 Ng- any issues with patient traveling on a plane to [place] for a work trip in June? * [...] Description 06/12/2024 10:00 AM EST Laboratory Laboratory [facility] [address] [place] [phone] [place], Lab Scenery [address] [place] [address] 06/12/2024 11:00 AM EST Hem/Onc Treatment Hematology/Oncology [address], [address] [phone] [place], Chair 6 Hem Onc [facility] [place] [address] 06/19/2024 9:00 AM EST Laboratory Laboratory [facility] [place] [address] [place] [phone] [place], Lab Scenery [address] [facility] [place] [address] 06/19/2024 9:30 AM EST Office Visit Hematology/Oncology [facility] [place] [address] [place] [phone] Em Ng MD [address] [place] [address] [place] [address] 06/19/2024 10:00 AM EST Hem/Onc Treatment Hematology/Oncology [address], [address] [phone] [place], Chair 4 Hem Onc [address] [place] [address] 08/06/2024 9:00 AM EST Telemedicine Genetics [facility], [facility] [address] [place] [address] Estephania Reyes, MS [address] [place] [address] Health Maintenance Due Date Last Done Comments [...] this encounter Medical Devices Implanted Type Area Degreasing Wheel Operator Device Identifier Shelf Expiration Date Model / Serial / Lot Stent Angulo 4fr 11cm - [id number] Implanted:Qty : 1 on 02/08/2024 by Jeffrey Kerr MD at OR [facility] [employer] [id number] 08/16/2028 6546 / / [id number] Port Implant W8f Poly Cath - [id number] Implanted:Qty : 1 on 05/02/2024 by Iam Curry MD at OR [facility] Right: Chest CR BARD : PERIPHERAL VASCULAR [id number] 05/17/2025 [id number] / / [id number] documented as of this encounter Care Teams Explosive Expert Relationship Specialty Start Date End Date Malinda Owens CRNP 132 [place] [address] PCP - General Nurse Practitioner 09/20/23 documented as of this encounter
--- OUTSIDE RECORDS SUMMARY | 2024-09-05 14:37 | External Medical Summary | Summary of Care ---
Author Name Unknown Organization [facility] Address [address] [place] [address] Phone [phone] Care Team Providers Care Chairman & Co Founder Name Role Phone Malinda Owens Primary Care Provider [phone] Reason for Visit * Reason Comments Chemotherapy [...] [place] PACLITAXEL INJECTION [place] INJ CYCLOPHOSPHAMD AUROMEDIC Em Ng MD [address] [facility] [place] [address] Phone: tel: fax: Hematology/Oncology Treatment, [address] [place] [address] Phone: tel: fax: Referral ID Status Reason Start Date Expiration Date V isits Requested Visits Authorized [id number] Authorized 04/30/2024 07/07/2024 999 [id number] Encounter Details Date Type Department Care Team (Latest Contact Info) Description 06/05/2024 11:00 AM EST Hem/Onc Treatment Hematology/Oncolog y Treatment, [address] [place] [address] [place], Chair 6 Hem Onc [address] [address] Malignant neoplasm of upper-outer quadrant of left [...] complete. Enrolled in Current Health. Plans to pickup driver meter from pharmacy today. Instructions provided [...] and class I obesity. Per review of MEDICAL BILLING SERVICE documentation of 09/25/23, blood glucose values have [...] Recommend nutrition consult with RDN (Registered Dietitian Arcade Game Technician). Lifestyle changes are also indicated including [...] folate levels and referral to a business solutions director. If hemoglobin levels are below 8 g/dl, we recommend Maternal Medicine ultrasound for growth every 4 weeks after 24 weeks. Consider a blood transfusion if hemoglobin levels fall below 6 g/dL. ([employer] and Recording Clerk Practice Bulletin Number 95, December,). Consider [...] money to get more. 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 [...] Description 06/12/2024 10:00 AM EST Laboratory Laboratory [facility] [place] [address] [place] [phone] [place], Lab Scenery [address] [place] [address] 06/12/2024 11:00 AM EST Hem/Onc Treatment Hematology/Oncology Treatment, [place] [address] [facility] [place] [phone] [place], Chair 6 Hem Onc [address] [place] [address] 06/19/2024 9:00 AM EST Laboratory Laboratory [facility] [address] [place] [phone] [place], Lab Scenery [address] [place] [address] 06/19/2024 9:30 AM EST Office Visit Hematology/Oncology [facility] [address] [place] [address] Em Ng MD [address] [place] [address] [place] [phone] 06/19/2024 10:00 AM EST Hem/Onc Treatment Hematology/Oncology Treatment, [place] [address] [facility] [place] [phone] [place], Chair 4 Hem Onc [address] [place] [address] 08/06/2024 9:00 AM EST Telemedicine Genetics [facility], [facility] [address] [place] [address] Estephania Reyes Sharri, MS [address] [place] [address] Health Maintenance Due Date Last Done Comments [...] this encounter Medical Devices Implanted Type Area Linux System Administrator Device Identifier Shelf Expiration Date Model / Serial / Lot Stent Angulo 4fr 11cm - [id number] Implanted:Qty : 1 on 02/08/2024 by Jeffrey Kerr MD at OR [facility] [employer] [id number] 08/16/2028 [id number] / / [id number] Port Implant W8f Poly Cath - [id number] Implanted:Qty : 1 on 05/02/2024 by Iam Curry MD at OR [facility] Right: Chest CR BARD : PERIPHERAL VASCULAR [id number] 05/17/2025 [id number] / / [id number] documented as of this encounter Visit Diagnoses [...] mg documented in this encounter Care Teams Chairman & Co Founder Relationship Specialty Start Date End Date Malinda Owens CRNP [address] [place] [address] PCP - General Nurse Practitioner 09/20/23 documented as of this encounter
--- OUTSIDE RECORDS SUMMARY | 2024-09-05 14:37 | External Medical Summary | Summary of Care ---
Author Name Unknown Organization [facility] Address [address] [place] [facility] [place] [address] Phone [phone] Care Team Providers Care Treater Name Role Phone Owens Ridgemargaret AD Primary Care Provider [phone] Reason for Visit * Reason Onset Date Comments Appointment 06/05/2024 Yee Encounter Details Date Type Department Care Team (Late st Contact Info) Description 06/05/2024 Telephone Hematology/Oncology Treatment, [place] [address] [place] [address] Em Ng MD [address] [place] [address] Appointment (Yee) Allergies No known [...] and class I obesity. Per review of RN RENAL documentation of 09/25/23, blood glucose values have [...] Recommend nutrition consult with RDN (Registered Dietitian Agate Setter). Lifestyle changes are also indicated including [...] and folate levels and referral to a transmission design engineer. If hemoglobin levels are below 8 g/dl, we recommend Maternal Medicine ultrasound for growth every 4 weeks after 24 weeks. Consider a blood transfusion if hemoglobin levels fall below 6 g/dL. ([employer] and Director Of Income Tax Practice Bulletin Number 95, December,). Consider Venofer [...] money to get more. 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 Not on [...] Description 06/12/2024 10:00 AM EST Laboratory Laboratory Scenery [place] [address] [place] [phone] [place], Lab Scenery [address] [place] [address] 06/12/2024 11:00 AM EST Hem/Onc Treatment [facility] [place] [facility] [phone] [place], Chair 6 Hem Onc Scenery [address] [place] [address] 06/19/2024 9:00 AM EST Laboratory Laboratory [facility] [place] [address] [place] [phone] [place], Lab Scenery [address] [place] [address] 06/19/2024 9:30 AM EST Office Visit Hematology/Oncology [facility] [place] [address] [place] [phone] Em Ng MD [address] [place] [phone] 06/19/2024 10:00 AM EST Hem/Onc Treatment [facility]ology[facility], [place] [facility] [phone] [place], Chair 4 Hem Onc Scenery [address] [place] [address] 08/06/2024 9:00 AM EST Telemedicine Genetics HemOnc, [facility] [address] [place] [address] Estephania Reyes, MS [address] [place] [address] Health Maintenance Due Date Last [...] this encounter Medical Devices Implanted Type Area No Bake Molder Device Identifier Shelf Expiration Date Model / Serial / Lot Stent Angulo 4fr 11cm - [id number] Implanted:Qty : 1 on 02/08/2024 by Jeffrey Kerr MD at OR [facility] [employer] [id number] 08/16/2028 [id number] / / [id number] Port Implant W8f Poly Cath - [id number] Implanted:Qty : 1 on 05/02/2024 by Iam Curry MD at OR [facility] Right: Chest CR BARD : PERIPHERAL VASCULAR [id number] 05/17/2025 [id number] / / [id number] documented as of this encounter Care Teams Treater Relationship Specialty Start Date End Date Malinda Owens CRNP [address] [place] [address] PCP - General Nurse Practitioner 09/20/23 documented as of this encounter
--- OUTSIDE RECORDS SUMMARY | 2024-09-05 14:37 | External Medical Summary | Summary of Care ---
Author Name Unknown Organization [facility] Address [address] [place] [facility] [place] [address] Phone [phone] Care Team Providers Care Windows Administrator Name Role Phone Malinda Owens Primary Care Provider [phone] Reason for Visit * Reason Comments Outpatient Testing Encounter Details Date Type Department Care Team (Late st Contact Info) Description 06/05/2024 9:50 AM EST Laboratory Laboratory [facility] [address] [place] [phone] [facility] 200 [facility] [place] [address] Malignant neoplasm of upper-outer quadrant of left breast in female, estrogen receptor negative (HCC) Allergies No known active allergiesdocumented as of this encounter (statuses as of 06/05/2024) Medications 29-1 MG Oral Tablet Chewable Take [...] and class I obesity. Per review of SMEARER documentation of 09/25/23, blood glucose values have [...] Recommend nutrition consult with RDN (Registered Dietitian Gas Station Supervisor). Lifestyle changes are also indicated including [...] and folate levels and referral to a compliance quality performance analyst. If hemoglobin levels are below 8 g/dl, we recommend Maternal Medicine ultrasound for growth every 4 weeks after 24 weeks. Consider a blood transfusion if hemoglobin levels fall below 6 g/dL. ([employer] [facility] and [facility] Administrator Practice Bulletin Number 95, December,). 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 on file Not on file documented as of this encounter Plan of Treatment Upcoming Encounters Date Type Department Care Team (Late st Contact Info) Description 06/05/2024 11:00 AM EST Hem/Onc Treatment Hematology/Oncology Treatment, [place] [address] [place] [phone] [place], Chair 6 Hem Onc Scenery [address] [place] [address] Arrived 06/12/2024 10:00 AM EST Laboratory Laboratory Scenery [facility] [address] [place], [place] [phone] [place], Lab Scenery [address] [place], [place] [address] 06/12/2024 11:00 AM EST [facility] [phone] [place], Chair 6 Hem Onc Scenery 200 [facility] [place], [place] [address] 06/19/2024 9:00 AM EST Laboratory Laboratory [facility] [address] [place], [place] [phone] [place], Lab Scenery 200 [facility] [place], [place] [address] 06/19/2024 9:30 AM EST Office Visit Hematology/Oncology [facility] [address] [place], [place] [phone] Em Ng MD [address] [place] [phone] 06/19/2024 10:00 AM EST [facility] 200 [facility], [place] [phone] [place], Chair 4 Hem Onc Scenery 200 [facility] [place], [place] [address] 08/06/2024 9:00 AM EST Telemedicine Genetics HemOnc, [facility] [address] [place] [address] Estephania Reyes, MS [address] [place] [address] Pending Results Name Type Priority Associated Diagnoses Date /Time CBC WITH WBC DIFFERENTIAL Lab STAT Malignant neoplasm of upper-outer quadrant of left breast in female, estrogen receptor negative (HCC) 06/05/2024 10:09 AM EST COMPREHENSIVE METABOLIC PANEL Lab STAT Malignant neoplasm of upper-outer quadrant of left breast in female, estrogen receptor negative (HCC) 06/05/2024 10:09 AM EST TSH WITH FREE T4 IF INDICATED Lab STAT Malignant neoplasm of upper-outer quadrant of left breast in female, estrogen receptor negative (HCC) 06/05/2024 10:09 AM EST CBC Lab STAT Malignant neoplasm of upper-outer quadrant of left breast in female, estrogen receptor negative (HCC) 06/05/2024 10:09 AM EST DIFFERENTIAL, AUTOMATED Lab STAT Malignant neoplasm of upper-outer quadrant of left breast in female, estrogen receptor negative (HCC) 06/05/2024 10:09 AM EST Health Maintenance Due Date Last [...] this encounter Medical Devices Implanted Type Area Motor Teacher Device Identifier Shelf Expiration Date Model / Serial / Lot Therese Angulo 4fr 11cm - [id number] Implanted:Qty : 1 on 02/08/2024 by [facility] [id number] 08/16/2028 [id number] / / [id number] Port Implant W8f Poly Cath - [id number] Implanted:Qty : 1 on 05/02/2024 by Iam Curry MD at OR [facility] Right: Chest CR BARD : PERIPHERAL VASCULAR [id number] 05/17/2025 [id number] / / [id number] documented as of this encounter Procedures Procedure Name Priority Date/Time Associated Diagnosis Comments HCG QUALITATIVE, URINE STAT 06/05/2024 10:09 AM EST Malignant neoplasm of upper-outer quadrant of left breast in female, estrogen receptor negative (HCC) documented in this encounter Results * HCG QUALITATIVE, URINE (06/05/2024 10:09 AM EST) HCG Qualitative, Urine Negative Negative 06/05/2024 10:20 AM EST [facility]-02 Urine Urine specimen obtained by clean catch procedure / Unknown Non-blood Collection / Unknown 06/05/2024 10:09 AM EST 06/05/2024 10:09 AM EST Mandeep Luna MD LAB URINE ORDERABLES Fin al Result [facility] [address] [place] [address] documented in this encounter Visit Diagnoses Diagnosis [...] (HCC) documented in this encounter Care Teams Windows Administrator Relationship Specialty Start Date End Date Malinda Owens CRNP [address] [facility] [place] [address] PCP - General Nurse Practitioner 09/20/23 documented as of this encounter
--- OUTSIDE RECORDS SUMMARY | 2024-09-05 14:37 | External Medical Summary ---
Author Name Unknown Address Unknown Organization K09:[facility] [place] [address] Laboratory Report Ordering Provider Test Date Status LISE JAVIER 06/05/2024 10:09:46 Final Observation Date Value Abnormality Reference (Units ) Status BUN 06/05/2024 10:09:46 15 6-20 (mg/dL) Final Creatinine 06/05/2024 10:09:46 0.8 0.5-1.0 (mg/dL) Final Glomerular filtration rate/1.73 sq M.predicted [Volume Rate/Area] in Serum, Plasma or Blood by Creatinine-based formula (CKD-EPI) 06/05/2024 10:09:46 >90 >=60 (mL/min) Final eGFR is calculated based on the CKD-EPI 2020 equation. Sodium 06/05/2024 10:09:46 140 135-146 (m mol/L) Final Potassium 06/05/2024 10:09:46 4.6 3.5-5.1 (m mol/L) Final Cl 06/05/2024 10:09:46 105 98-107 (mm ol/L) Final CO2 06/05/2024 10:09:46 20 Below low normal 22- 32 (mmol/L) Final Anion gap 06/05/2024 10:09:46 15 7-15 (mmol /L) Final Glucose 06/05/2024 10:09:46 122 Above high normal 70 -120 (mg/dL) Final Albumin 06/05/2024 10:09:46 4.7 3.8-5.0 (g /dL) Final AST (Aspartate aminotransferase) 06/05/2024 10:09:46 12 10-35 (U/L) Fin al Alk Phos 06/05/2024 10:09:46 96 35-130 (U/ L) Final Bilirubin, Total 06/05/2024 10:09:46 0.4 <=1 .2 (mg/dL) Final Calcium 06/05/2024 10:09:46 9.9 8.4-10.2 ( mg/dL) Final Protein 06/05/2024 10:09:46 7.9 6.0-8.3 (g /dL) Final ALT (Alanine aminotransferase) 06/05/2024 10:09:46 14 10-35 (U/L) [place] [email or web address] Performing Location [facility] [address] [place] [address]
--- OUTSIDE RECORDS SUMMARY | 2024-09-05 14:37 | External Medical Summary ---
Author Name Unknown Address Unknown Organization [facility]09:[facility] [place] [address] Laboratory Report Ordering Provider Test Date Status LISE JAVIER 06/05/2024 10:09:46 Final Observation Date Value Abnormality Reference (Units ) Status Nucleated erythrocytes/100 leukocytes [Ratio] in Blood by Automated count 06/05/2024 10:09:46 Final Variant lymphocytes [Presence] in Blood by Light microscopy 06/05/2024 10:09:46 Present Abnormal None Seen Final Performing Location [facility] [place] [address]
--- OUTSIDE RECORDS SUMMARY | 2024-09-05 14:37 | External Medical Summary ---
Author Name Unknown Address Unknown Organization [facility]09[facility] [place] [address] Laboratory Report Ordering Provider Test Date Status LISE JAVIER 06/05/2024 10:09:46 Final Observation Date Value Abnormality Reference (Units ) Status Screen, Urine 06/05/2024 10:09:46 Negative Negative Final Performing Location [facility] [place] [address]
--- OUTSIDE RECORDS SUMMARY | 2024-09-05 14:38 | External Medical Summary | Summary of Care ---
Author Name Unknown Organization [facility] Address [address] [place] [address] Phone [phone] Care Team Providers Care Residential Roofer Helper Name Role Phone Malinda Owens Primary Care Provider [phone] Reason for Visit * Reason Comments Chemotherapy C1/D1 - Keytruda, Ta xol, Carbo * Episode Based Medications (Routine) - [...] FULPHILA CA PACLITAXEL INJECTION CA INJ CYCLOPHOSPHAMD Em Bird MD [address] [facility] [place] [address] Phone: tel: fax: Hematology/Oncology Treatment, [address] [address] Phone: tel: fax: Referral ID Status Reason Start Date Expiration Date V isits Requested Visits Authorized [id number] Authorized 04/30/2024 07/07/2024 [id number] Encounter Details Date Type Department Care Team (Latest Contact Info) Description 05/08/2024 9:30 AM EST Hem/Onc Treatment Hematology/Oncolog y Treatment, [address] [phone] [place], Chair 9 Hem Onc Scenery [address] [place] [address] Malignant neoplasm of upper-outer quadrant of left breast in female, estrogen receptor negative (HCC)*; Encounter for antineoplastic chemotherapy; Encounter for prevention of neutropenia due to chemotherapy Allergies No known active allergiesdocumented as of this encounter (statuses as of 05/26/2024) Medications 19 29-1 MG Oral Tablet Chewable [...] 06, 2024. 16 Tablet 05/06/20 24 024 Ondansetron HCl 8 MG Oral Tablet (Zofran)Indication s:Malignant neoplasm of upper-outer quadrant of left breast in female, estrogen receptor negative (HCC) Take 1 Tablet by mouth every 8 hours as needed for Nausea. 30 Tablet 3 05/08/20 24 024 Discontinu ed(Refill) Loratadine 10 MG Oral Tablet (Claritin)Indicati ons:Malignant neoplasm of upper-outer quadrant of left breast in female, estrogen receptor negative (HCC) Take 1 tablet by mouth x5 days starting the day before fulphila injection 20 Tablet 05/08/20 24 024 Discontinu ed(Refill) documented as of this encounter (statuses as of 05/26/2024) Active Problems Problem Noted Date Diagnosed Date [...] and class I obesity. Per review of WORKERS COMPENSATION CONSULTANT documentation of 09/25/23, blood glucose values [...] Recommend nutrition consult with RDN (Registered Dietitian Head Irrigator). Lifestyle changes are also indicated including optimizing [...] and folate levels and referral to a dump grounds checker. If hemoglobin levels are below 8 g/dl, we recommend Maternal Medicine ultrasound for growth every 4 weeks after 24 weeks. Consider a blood transfusion if hemoglobin levels fall below 6 g/dL. ([employer] and Lumber Carrier Operator Practice Bulletin Number 95, December,). Consider [...] as of this encounter (statuses as of 05/26/2024) Resolved Problems Problem Noted Date Diagnosed Date Resolved Date Abnormal glucose tolerance i n mother complicating 04/19/2023 08/31/2023 Overview (04/19/2023): Failed early glucola. 3hr GTT ordered documented as of this encounter (statuses as of 05/26/2024) Immunizations Name Administration Dates Next Due DTP [...] money to get more. 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 * Justine Cool RN - 05/08/2024 12:07 PM EST Chair 10. IV inserted. Patient has a R chest port but would prefer not to use it today, would rather a PIV to give chemo instead for today. Port assessed and is healing well and WNL as far as appearance. Patient met with Dr. Ng this morning regarding starting tx vs having surgery with egg harvesting first instead vs using Lupron injection during chemo as another alternative. Dr. Ng communicated with Dr. Sinha - Per Dr. Sinha, surgery could be done and would not affect outcome if done first. Patient was present with options to have surgery and have eggs harvested before starting chemo today. She was present with the option of trying to use Lupron as an alternative during chemo to try preserving fertility. Patient was also presented with delaying chemo to have eggs harvested as well. Patient is comfortable about decision today after RN spoke with patient. Patient unders tands the situation and made an educated decision to start first cycle of chemo today. Patient refused Lupron injection at this time. Will start chemo today per patient preference. Patient is accompanied by mother and . left for work but mother is staying with patient today. Chemotherapy/Immunotherapy agents: CARBOPLATIN, KEYTRUDA, and TAXOL Consent for chemotherapy drug treatment complete, dated, and signed? yes, date - 04/24/2024 Treatment lab parameters met? Yes Has treatment weight changed > than 10%? No Treatment preauthorized? Yes VITALS There were no vitals filed for this visit. Urine protein: N/A Patient education completed for [...] Care Team (Late st Contact Info) Description 05/29/2024 9:30 AM EST Laboratory Laboratory Scenery [place] [address] [place] [phone] [place], Lab Scenery [address] [place], [place] [address] 05/29/2024 10:30 AM EST Hem/Onc Treatment Hematology/Oncology Treatment, [place] [address] [facility] [place] [address] [place], Chair 9 Hem Onc Scenery [address] [place] [address] 06/05/2024 9:50 AM EST [facility] [place] [address] [place] [address] [place], Lab Scenery [address] [facility] [place], [place] [address] 06/05/2024 11:00 AM EST Hem/Onc Treatment Hematology/Oncology Treatment, [place] [address] [facility] [place] [phone] [place], Chair 6 Hem Onc Scenery [address] [place], [place] [address] 06/12/2024 10:00 AM EST Laboratory Laboratory Scenery [place] [address] [place] [address] [place], Lab Scenery [address] [facility] [place], [place] [address] 06/12/2024 11:00 AM EST Hem/Onc Treatment Hematology/Oncology Treatment, [address], [place] [phone] [place], Chair 6 Hem Onc [facility] [address] [facility] [place], [place] [address] 06/19/2024 9:00 AM EST Laboratory Laboratory [facility] [place] [address] [facility] [place], [place] [phone] [place], Lab [facility] [address] [facility] [place], [place] [address] 06/19/2024 9:30 AM EST Office Visit Hematology/Oncology [facility] [address] [facility] [place], [place] [phone] Em Ng MD [address] [place] [phone] 06/19/2024 10:00 AM EST Hem/Onc Treatment Hematology/Oncology Treatment[address], [place] [phone] [place], Chair [address] Hem [address] [place], [place] [address] 08/06/2024 9:00 AM EST Telemedicine Genetics [facility]c, [facility] [address] [place] [address] Estephania Reyes, [place] [address] [place] [address] Health Maintenance Due Date Last Done Comments COVID-19 Vaccine (#1) 1999 Pneumococcal Vaccine: Pediat rics (0 to 5 Years) and At-Risk Patients (6 to 64 Years) (1 of 2 - PCV) 2000 Depression Screening 2006 HPV (Gardasil) Vaccine (3 - 3-dose series) 02/05/2013 11/13/2012, 03/21/2012 HPV/Co-Test 2024 Cervical Cancer Screening 01/29/2026 Pap Smear 01/29/2026 01/29/2023, 11/17, 07/17/2018, Additional history exists DTap/Tdap Vaccines (9 - Td o r Tdap) 08/13/2033 08/13/2023, 08/22/2019, 09/17/2008, Additional history exists Hepatitis B Vaccine Completed 02/17/1995, 1994, 1994 MENINGOCOCCAL (MENACTRA/MENVEO) Completed , 02/02/2010 Influenza Vaccine (FLU shot) Completed 12/2023, 05/17/2023, 08/21/2019, Additional history exists documented as of this encounter Medical Devices Implanted Type Area Transportation Attendant Device Identifier Shelf Expiration Date Model / Serial / Lot Stent Angulo 4fr 11cm - [id number] Implanted:Qty : 1 on 02/08/2024 by Jeffrey Kerr MD at OR [facility] [employer] [id number] 08/16/2028 [id number] / / [id number] Port Implant W8f Poly Cath - [id number] Implanted:Qty : 1 on 05/02/2024 by Iam Curry MD at OR [facility] Right: Chest CR BARD : PERIPHERAL VASCULAR [id number] 05/17/2025 [id number] / / [id number] documented as of this encounter Visit Diagnoses [...] Action Date Dose Rate Site CARBOplatin (Paraplatin) 199 mg in D5W 250 mL infusion 199 mg (rounded from 198.9 mg, Target AUC = 1.5), IV Piggyback, at 510 mL/hr Administer over 30 Minutes, PROTECT FROM LIGHT, ONCE, 1 dose, On Bibi 05/08/24 at 1430Indications:Malignant neoplasm of upper-outer quadrant of left breast in female, estrogen receptor negative (HCC),Encounter for antineoplastic chemotherapy,Encounter for prevention of neutropenia due to chemotherapy Start Infusion 05/08/2024 1:27 PM EST 199 mg 510 mL/hr dexAMETHasone (Decadron) tab 12 mg 12 mg, Oral, ONCE, On Bibi 05/08/24 at 1200, For 1 doseIndications:Malignant neoplasm of upper-outer quadrant of left breast in female, estrogen receptor negative (HCC),Encounter for antineoplastic chemotherapy,Encounter for prevention of neutropenia due to chemotherapy Given 05/08/2024 11:29 AM EST 12 mg diphenhydrAMINE (Benadryl) cap 50 mg 50 mg, Oral, ONCE, On Bibi 05/08/24 at 1230, For 1 doseIndications:Malignant neoplasm of upper-outer quadrant of left breast in female, estrogen receptor negative (HCC),Encounter for antineoplastic chemotherapy,Encounter for prevention of neutropenia due to chemotherapy Given 05/08/2024 11:29 AM EST 50 mg Famotidine (Pepcid) tab 20 mg 20 mg, Oral, ONCE, On Bibi 05/08/24 at 1230, For 1 doseIndications:Malignant neoplasm of upper-outer quadrant of left breast in female, estrogen receptor negative (HCC),Encounter for antineoplastic chemotherapy,Encounter for prevention of neutropenia due to chemotherapy Given 05/08/2024 11:29 AM EST 20 mg NSS infusion Intravenous, at 50 mL/hr, PRN, Starting on Bibi 05/08/24 at 1230, Until Bibi 05/08/24 at 1937, Maintenance lineIndications:Malignant neoplasm of upper-outer quadrant of left breast in female, estrogen receptor negative (HCC),Encounter for antineoplastic chemotherapy,Encounter for prevention of neutropenia due to chemotherapy Start Infusion 05/08/2024 11:21 AM EST 50 mL/hr PACLitaxel (Taxol) 165 mg in NSS 250 mL infusion 165 mg (rounded from 164.8 mg = 80 mg/m2 2.06 m2 Treatment Plan BSA from Recorded weight), IV Piggyback, ONCE, 1 dose, On Bibi 05/08/24 at 1330, Administer over 60 Minutes, Administer through 0.22 micron low protein binding filter!Indications:Malignant neoplasm of upper-outer quadrant of left breast in female, estrogen receptor negative (HCC),Encounter for antineoplastic chemotherapy,Encounter for prevention of neutropenia due to chemotherapy Start Infusion 05/08/2024 12:25 PM EST 165 mg 255 mL/hr Palonosetron (Aloxi) inj SOLN 0.25 mg 0.25 mg, IV Push, ONCE, On Bibi 05/08/24 at 1200, For 1 dose, Restricted per [facility] antiemetic guidelinesIndications:Malign ant neoplasm of upper-outer quadrant of left breast in female, estrogen receptor negative (HCC),Encounter for antineoplastic chemotherapy,Encounter for prevention of neutropenia due to chemotherapy Given 05/08/2024 11:29 AM EST 0.25 mg Pembrolizumab (Keytruda) 200 mg in NSS 100 mL infusion 200 mg, IV Piggyback, ONCE, 1 dose, On Bibi 05/08/24 at 1300, Administer over 30 Minutes, Infuse through 0.2 micron filter.Indications:Malignant neoplasm of upper-outer quadrant of left breast in female, estrogen receptor negative (HCC),Encounter for antineoplastic chemotherapy,Encounter for prevention of neutropenia due to chemotherapy Start Infusion 05/08/2024 11:38 AM EST 200 mg 226 mL/hr documented in this encounter Care Teams Residential Roofer Helper Relationship Specialty Start Date End Date Malinda Owens CRNP [address] [place] [address] PCP - General Nurse Practitioner 09/20/23 documented as of this encounter
--- OUTSIDE RECORDS SUMMARY | 2024-09-05 14:38 | External Medical Summary | Summary of Care ---
Author Name Unknown Organization [facility] Address [address] [place] [facility] [place] [address] Phone [phone] Care Team Providers Care Superintendent Cemetery Name Role Phone Malinda Owens Primary Care Provider [phone] Reason for Visit * Reason Comments Chemotherapy [...] FULPHILA DC PACLITAXEL INJECTION DC INJ CYCLOPHOSPHAMD Em Bird MD [address] [facility] [place] [address] Phone: tel: fax: Hematology/Oncology Treatment, [address] [address] Phone: tel: fax: Referral ID Status Reason Start Date Expiration Date V isits Requested Visits Authorized [id number] Authorized 04/30/2024 07/07/2024 [id number] Encounter Details Date Type Department Care Team (Latest Contact Info) Description 05/08/2024 9:30 AM EST Hem/Onc Treatment Hematology/Oncolog y Treatment, [address] [address] [place], Chair 9 Hem Onc Scenery [address] [place] [address] Malignant neoplasm of upper-outer quadrant of left [...] and class I obesity. Per review of CONCRETE FLOAT MAKER documentation of 09/25/23, blood glucose values have [...] Recommend nutrition consult with RDN (Registered Dietitian Claim Agent). Lifestyle changes are also indicated including [...] and folate levels and referral to a tension worker. If hemoglobin levels are below 8 g/dl, we recommend Maternal Medicine ultrasound for growth every 4 weeks after 24 weeks. Consider a blood transfusion if hemoglobin levels fall below 6 g/dL. ([employer] [facility] [facility] Bulletin Number 95, December,). Consider [...] money to get more. 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 Not on file [...] 05/29/2024 9:30 AM EST Laboratory Laboratory Scenery [place] [address] [place] [address] [place], Lab Scenery [address] [place], [place] [address] 05/29/2024 10:30 AM EST Hem/Onc Treatment Hematology/Oncology Treatment, [place] [address] [facility] [place] [address] [place], Chair 9 Hem Onc Scenery [address] [place] [address] 06/05/2024 9:50 AM EST Laboratory Laboratory [facility] [place] [address] [place] [address] [place], Lab Scenery [address] [facility] [place], [place] [address] 06/05/2024 11:00 AM EST Hem/Onc Treatment Hematology/Oncology Treatment, [place] [address] [facility] [place] [address] [place], Chair 6 Hem Onc Scenery [address] [place], [place] [address] 06/12/2024 10:00 AM EST Laboratory Laboratory Scenery [place] [address] [place] [address] [place], Lab Scenery [address] [facility] [place] [place] [address] 06/12/2024 11:00 AM EST Hem/Onc Treatment Hematology/Oncology Treatment, [address], [place] [phone] [place], Chair 6 Hem Onc [facility] [address] [facility] [place], [place] [address] 06/19/2024 9:00 AM EST Laboratory Laboratory [facility] [place] [address] [facility] [place], [place] [phone] [place], Lab [facility] [address] [facility] [place], [place] [address] 06/19/2024 9:30 AM EST Office Visit Hematology/Oncology [facility] [address] [facility] [place], [place] [phone] Em Ng MD [address] [place] [phone] 06/19/2024 10:00 AM EST Hem/Onc Treatment Hematology/Oncology [address], [place] [phone] [place], Chair [address] Hem [address] [place], [place] [address] 08/06/2024 9:00 AM EST Telemedicine Genetics HemOnc, [facility] [address] [place] [address] Estephania Reyes, [place] [address] [place] [address] Health Maintenance Due Date Last [...] this encounter Medical Devices Implanted Type Area Cowlman Device Identifier Shelf Expiration Date Model / Serial / Lot Stent Angulo 4fr 11cm - [id number] Implanted:Qty : 1 on 02/08/2024 by Jeffrey Kerr MD at OR [facility] [employer] [id number] 08/16/2028 [id number] / / [id number] Port Implant W8f Poly Cath - [id number] Implanted:Qty : 1 on 05/02/2024 by Iam Curry MD at OR [facility] Right: Chest CR BARD : PERIPHERAL VASCULAR [id number] 05/17/2025 [id number] / / [id number] documented as of this encounter Visit Diagnoses [...] at 1200, For 1 dose, Restricted per [facility] antiemetic guidelinesIndications:Malign ant neoplasm of upper-outer [...] mL/hr documented in this encounter Care Teams Superintendent Cemetery Relationship Specialty Start Date End Date Malinda Owens CRNP [address] [place] [address] PCP - General Nurse Practitioner 09/20/23 documented as of this encounter
--- OUTSIDE RECORDS SUMMARY | 2024-09-05 14:38 | External Medical Summary ---
Author Name Unknown Address Unknown Organization K09:[facility] [place] [address] Laboratory Report Ordering Provider Test Date Status LISE JAVIER 05/29/2024 09:04:47 Final Observation Date Value Abnormality Reference (Units ) Status SYNC LEUKOCYTES IN BLOOD BY AUTOMATED COUNT 05/29/2024 09:04:47 3.59 Below low normal 4.00-10.80 (K/uL) Final Neutrophils/100 leukocytes in Blood by Manual count 05/29/2024 09:04:47 74.0 40.0-75.0 (%) Final Lymphocytes/100 leukocytes in Blood by Manual count 05/29/2024 09:04:47 23.0 18.0-42.0 (%) Final Monocytes/100 leukocytes in Blood by Manual count 05/29/2024 09:04:47 3.0 1.0-11.0 (%) Final Neutrophils [#/volume] in Blood by Manual count 05/29/2024 09:04:47 2.66 1.80-7.70 (K/uL) Final Lymphocytes [#/volume] in Blood by Manual count 05/29/2024 09:04:47 0.83 Below low normal 1.00-4.80 (K/uL) Final Monocytes [#/volume] in Blood by Manual count 05/29/2024 09:04:47 0.11 0.00-1.10 (K/uL) Final Nucleated erythrocytes/100 leukocytes [Ratio] in Blood by Automated count 05/29/2024 09:04:47 Final Variant lymphocytes [Presence] in Blood by Light microscopy 05/29/2024 09:04:47 Present Abnormal None Seen Final Performing Location LAB[facility] [place] Rafael CINTRON [address]
--- OUTSIDE RECORDS SUMMARY | 2024-09-05 14:38 | External Medical Summary | Summary of Care ---
Author Name Unknown Organization [facility] Address [address] [place] [address] Phone [phone] Care Team Providers Care Cut Off Machine Unloader Name Role Phone Malinda Owens Primary Care Provider [phone] Reason for Visit * Reason Comments Chemotherapy C1/D1 - Keytruda, Ta xol, Carbo * Episode Based Medications (Routine) - Authorized Specialty Diagnoses / Procedures Referred By Contjeffery t Referred To Contact Diagnoses Malignant neoplasm of upper-outer quadrant of left breast in female, estrogen receptor negative (HCC) Encounter for antineoplastic chemotherapy Encounter for prevention of neutropenia due to chemotherapy Procedures NJ DOXORUBIC HCL 10 MG VL CHEMO NJ CARBOPLATIN INJECTION NJ FOSAPREPITANT INJECTION NJ INJ PEMBROLIZUMAB NJ INJECTION, FULPHILA NJ PACLITAXEL INJECTION NJ INJ CYCLOPHOSPHAMD Em Bird MD [address] [facility] [place] [address] Phone: tel: fax: Hematology/Oncology Treatment, [address] [address] Phone: tel: fax: Referral ID Status Reason Start Date Expiration Date V isits Requested Visits Authorized [id number] Authorized 04/30/2024 07/07/[phone] Encounter Details Date Type Department Care Team (Latest Contact Info) Description 05/08/2024 9:30 AM EST Hem/Onc Treatment Hematology/Oncolog y Treatment, [address] [address] [place], Chair 9 Hem Onc Scenery [address] [place] [address] Malignant neoplasm of upper-outer quadrant of left [...] and class I obesity. Per review of [facility]ITY HE[facility] N[facility] documentation of 09/25/23, blood glucose values [...] Recommend nutrition consult with RDN (Registered Dietitian Wirer Street Light). Lifestyle changes are also indicated including optimizing [...] and folate levels and referral to a management technician. If hemoglobin levels are below 8 g/dl, we recommend Maternal Medicine ultrasound for growth every 4 weeks after 24 weeks. Consider a blood transfusion if hemoglobin levels fall below 6 g/dL. ([employer] [facility] [employer] Practice Bulletin Number 95, December,). Consider Venofer [...] money to get more. Never true 03/26/2024 [place] Depression Scale Answer Date Recorded [place] Depression Scale Total 6 12/11/2023 The [...] 05/29/2024 9:30 AM EST Laboratory Laboratory Scenery [place] [address] [place] [address] [place], Lab Scenery [address] [place], [place] [address] 05/29/2024 10:30 AM EST Hem/Onc Treatment Hematology/Oncology Treatment, [place] [address] [facility] [place] [address] [place], Chair 9 Hem Onc Scenery [address] [place] [address] 06/05/2024 9:50 AM EST Laboratory Laboratory [facility] [place] [address] [place] [address] [place], Lab Scenery [address] [facility] [place], [place] [address] 06/05/2024 11:00 AM EST Hem/Onc Treatment Hematology/Oncology Treatment, [place] [address] [facility] [place] [address] [place], Chair 6 Hem Onc Scenery [address] [place], [place] [address] 06/12/2024 10:00 AM EST Laboratory Laboratory Scenery [place] [address] [place] [address] [place], Lab Scenery [address] [facility] [place], [place] [address] 06/12/2024 11:00 AM EST Hem/Onc Treatment Hematology/Oncology Treatment, [address], [place] [phone] [place], Chair 6 Hem Onc [facility] [address] [facility] [place], [place] [address] 06/19/2024 9:00 AM EST Laboratory Laboratory [facility] [place] [address] [facility] [place], [place] [phone] [place], Lab [facility] [address] [facility] [place], [place] [address] 06/19/2024 9:30 AM EST Office Visit Hematology/Oncology [facility] [address] [facility] [place], [place] [phone] Em Ng MD [address] [place] [phone] 06/19/2024 10:00 AM EST Hem/Onc Treatment Hematology/Oncology [address], [place] [phone] [place], Chair 11 Hem On[address] [place], [place] [address] 08/06/2024 9:00 AM EST Telemedicine Genetics HemOnc, [facility] [address] [place] [address] Estephania Reyes, [place] [address] [place] [address] Health Maintenance Due Date Last [...] this encounter Medical Devices Implanted Type Area Clearance Diver Device Identifier Shelf Expiration Date Model / Serial / Lot Stent Angulo 4fr 11cm - [id number] Implanted:Qty : 1 on 02/08/2024 by Jeffrey Kerr MD at OR [facility] [employer] [id number] 08/16/2028 [id number] / / [id number] Port Implant W8f Poly Cath - [id number] Implanted:Qty : 1 on 05/02/2024 by Iam Curry MD at OR [facility] Right: Chest CR BARD : PERIPHERAL VASCULAR [id number] 05/17/2025 [id number] / / [id number] documented as of this encounter Visit Diagnoses [...] Starting on Bibi 05/08/24 at 1230, Until Biib 05/08/24 at 1937, Maintenance lineIndications:Malignant neoplasm of [...] at 1200, For 1 dose, Restricted per [facility] antiemetic guidelinesIndications:Malign ant neoplasm of upper-outer [...] mL/hr documented in this encounter Care Teams Cut Off Machine Unloader Relationship Specialty Start Date End Date Malinda Owens CRNP [address] [place] [address] PCP - General Nurse Practitioner 09/20/23 documented as of this encounter
--- OUTSIDE RECORDS SUMMARY | 2024-09-05 14:38 | External Medical Summary | Summary of Care ---
Author Name Unknown Organization [facility] Address [address] [facility] [place] [address] Phone [phone] Care Team Providers Care Roller Inspector Name Role Phone Malinda Owens Primary Care Provider [phone] Reason for Visit * Reason Comments Chemotherapy [...] FULPHILA MA PACLITAXEL INJECTION MA INJ CYCLOPHOSPHAMD Em Bird MD [address] [facility] [place] [address] Phone: tel: fax: Hematology/Oncology Treatment, [address] [address] Phone: tel: fax: Referral ID Status Reason Start Date Expiration Date V isits Requested Visits Authorized [id number] Authorized 04/30/2024 07/07/[phone] Encounter Details Date Type Department Care Team (Latest Contact Info) Description 05/29/2024 10:30 AM EST Hem/Onc Treatment Hematology/Oncolog y Treatment, [address] [address] [place], Chair 9 Hem Onc Scenery [address] [place] [address] Malignant neoplasm of upper-outer quadrant of left [...] complete. Enrolled in Current Health. Plans to hand picker meter from pharmacy today. Instructions provided [...] class I obesity. Per review of EPIC WILLOW ANALYST documentation of 09/25/23, blood glucose values [...] Recommend nutrition consult with RDN (Registered Dietitian Travel Freight And Passenger Agent). Lifestyle changes are also indicated including [...] and folate levels and referral to a radiology nurse. If hemoglobin levels are below 8 g/dl, we recommend Maternal Medicine ultrasound for growth every 4 weeks after 24 weeks. Consider a blood transfusion if hemoglobin levels fall below 6 g/dL. ([employer] C[employer] [facility] Bulletin Number 95, December,). Consider Venofer [...] money to get more. 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 [...] 06/05/2024 9:50 AM EST Laboratory Laboratory [address]ery [place] [address] [place] [address] [place], Lab Scenery [address] [place] [address] 06/05/2024 11:00 AM EST Hem/Onc Treatment Hematology/Oncology Treatment, [address] [place] [address] [place], Chair 6 Hem Onc Scenery [address] [place] [address] 06/12/2024 10:00 AM EST Laboratory Laboratory [facility] [place] [address] [place] [address] [place], Lab Scenery [address] [place] [address] 06/12/2024 11:00 AM EST Hem/Onc Treatment Hematology/Oncology Treatment, [place] 200 [facility] [place] [address] [place], Chair 6 Hem Onc Scenery [address] [place] [address] 06/19/2024 9:00 AM EST Laboratory Laboratory [facility] [place] [address] [place] [address] [place], Lab Scenery [address] [place] [address] 06/19/2024 9:30 AM EST Office Visit Hematology/Oncology [facility] [place] [address] [place] [phone] Em Ng MD [address] [facility] [place] [phone] 06/19/2024 10:00 AM EST Hem/Onc Treatment Hematology/Oncology Treatment, [place] [address] [place] [address] [place], Chair 11 Hem Onc Scenery [address] [place] [address] 08/06/2024 9:00 AM EST Telemedicine Genetics HemOnc, [facility] [address] [place] [address] Estephania Re[place], [place] [address] [place], [place] [id number] Health Maintenance Due Date Last Done Comments [...] this encounter Medical Devices Implanted Type Area Bank Reconciliator Device Identifier Shelf Expiration Date Model / Serial / Lot Stent Angulo 4fr 11cm - [id number] Implanted:Qty : 1 on 02/08/2024 by Jeffrey Kerr MD at OR [facility] [id number] [id number] 08/16/2028 [id number] / / [id number] Port Implant W8f Poly Cath - [id number] Implanted:Qty : 1 on 05/02/2024 by Iam Curry MD at OR [facility] Right: Chest CR BARD : PERIPHERAL VASCULAR [id number] 05/17/2025 [id number] / / [id number] documented as of this encounter Visit Diagnoses [...] PRN Other, Hypersensitivity Reaction, Starting on Bibi 05/29/24 at 1026, Until Sun05/30/24 at 1025, For 24 hoursIndications:Malignant neoplasm of upper-outer quadrant of left breast in female, estrogen receptor negative (HCC),Encounter for antineoplastic chemotherapy,Encounter for prevention of neutropenia due to chemotherapy EPINEPHrine 1 MG/ML inj 0.3 mg 0.3 mg, Intramuscular, ONCE PRN Other, Hypersensitivity Reaction or Anaphylaxis, Starting on Bibi 05/29/24 at 1026, Until Sun05/30/24 at 1025, For 24 hoursIndications:Malignant neoplasm of upper-outer quadrant of left breast in female, estrogen receptor negative (HCC),Encounter for antineoplastic chemotherapy,Encounter for prevention of neutropenia due to chemotherapy hEParin 100 UNIT/ML Lock Flush inj 500 Units 500 Units (5 mL), IV Lock, PRN Other, IV Flush, Starting on Sun05/29/24 at 1026, Until Sun05/30/24 at 1025, For 24 hours, Do not flush if lock, PICC, or central line not in place; IV infusing or unable to flush.Indications:Malignant neoplasm of upper-outer quadrant of left breast in female, estrogen receptor negative (HCC),Encounter for antineoplastic chemotherapy,Encounter for prevention of neutropenia due to chemotherapy Given 05/29/2024 1:29 PM EST 500 Units Hydrocortisone Sod Suc (PF) (Solu-Cortef) inj 100 mg 100 mg, IV Push, ONCE PRN Other, Hypersensitivity Reaction, Starting on Sun05/29/24 at 1026, Until Sun05/30/24 at 1025, For 24 hoursIndications:Malignant neoplasm of upper-outer quadrant of left breast in female, estrogen receptor negative (HCC),Encounter for antineoplastic chemotherapy,Encounter for prevention of neutropenia due to chemotherapy LORAzepam (Ativan) tab 0.5 mg 0.5 mg, Oral, ONCE PRN Anxiety, Nausea, Starting on Sun05/29/24 at 1130, Until DiscontinuedIndications:Nancy gnant neoplasm of upper-outer quadrant of left breast in female, estrogen receptor negative (HCC),Encounter for antineoplastic chemotherapy,Encounter for prevention of neutropenia due to chemotherapy meperidine (Demerol) 25 MG/ML inj 25 mg 25 mg, Intramuscular, ONCE PRN Shivering, Chills/Rigors from acute infusion reaction, Starting on Sun05/29/24 at 1026, Until Sun05/30/24 at 1025, For 24 hoursIndications:Malignant neoplasm of upper-outer quadrant of left breast in female, estrogen receptor negative (HCC),Encounter for antineoplastic chemotherapy,Encounter for prevention of neutropenia due to chemotherapy NSS infusion Intravenous, at 50 mL/hr, PRN, Starting on Sun05/29/24 at 1130, Until Discontinued, Maintenance lineIndications:Malignant neoplasm of upper-outer quadrant of left breast in female, estrogen receptor negative (HCC),Encounter for antineoplastic chemotherapy,Encounter for prevention of neutropenia due to chemotherapy Start Infusion 05/29/2024 10:39 AM EST 50 mL/hr oxygen GAS Inhalation, OXYGEN, First dose on Sun05/29/24 at 1100, Until Discontinued, Device/Managed by: Low [...] Push, PRN Other, IV Flush, Starting on Sun05/29/24 at 1026, Until Sun05/30/24 at 1025, For 24 hours, Do not flush if lock, PICC, or central line not in place; IV infusing or unable to flush.Indications:Malignant neoplasm of upper-outer quadrant of left breast in female, estrogen receptor negative (HCC),Encounter for antineoplastic chemotherapy,Encounter for prevention of neutropenia due to chemotherapy Given 05/29/2024 1:29 PM EST 10 mL Inactive Administered Medications [...] 20 mg, IV Push, ONCE, On Bibi 05/29/24 at 1100, For 1 dose, Give IV push over 2 minutes.Indications:Malignan t neoplasm of upper-outer quadrant of left breast in female, estrogen receptor negative (HCC),Encounter for antineoplastic chemotherapy,Encounter for prevention of neutropenia due to chemotherapy Given 05/29/2024 10:40 AM EST 20 mg PACLitaxel (Taxol) 165 mg in NSS 250 mL infusion 165 mg (rounded from 164.8 mg = 80 mg/m2 2.06 m2 Treatment Plan BSA from Recorded weight), IV Piggyback, ONCE, 1 dose, On Sun05/29/24 at 1230, Administer over 60 Minutes, Administer through 0.22 micron low protein binding filter!Indications:Malignant neoplasm of upper-outer quadrant of left breast in female, estrogen receptor negative (HCC),Encounter for antineoplastic chemotherapy,Encounter for prevention of neutropenia due to chemotherapy Start Infusion 05/29/2024 11:45 AM EST 165 mg 255 mL/hr Palonosetron (Aloxi) inj SOLN 0.25 mg 0.25 mg, IV Push, ONCE, On Sun05/29/24 at 1100, For 1 dose, Restricted per [facility] antiemetic guidelinesIndications:Malign ant neoplasm of upper-outer quadrant of left breast in female, estrogen receptor negative (HCC),Encounter for antineoplastic chemotherapy,Encounter for prevention of neutropenia due to chemotherapy Given 05/29/2024 10:40 AM EST 0.25 mg Pembrolizumab (Keytruda) 200 mg in NSS 100 mL infusion 200 mg, IV Piggyback, ONCE, 1 dose, On Sun05/29/24 at 1200, Administer over 30 Minutes, Infuse through 0.2 micron filter.Indications:Malignant neoplasm of upper-outer quadrant of left breast in female, estrogen receptor negative (HCC),Encounter for antineoplastic chemotherapy,Encounter for prevention of neutropenia due to chemotherapy Start Infusion 05/29/2024 11:05 AM EST 200 mg 226 mL/hr documented in this encounter Care Teams Roller Inspector Relationship Specialty Start Date End Date Malinda Owens CRNP [address] [facility] [place] [address] PCP - General Nurse Practitioner 09/20/23 documented as of this encounter
--- OUTSIDE RECORDS SUMMARY | 2024-09-05 14:38 | External Medical Summary | Summary of Care ---
Author Name Unknown Organization [facility] Address [address] [facility] [place] [address] Phone [phone] Care Team Providers Care Office Assistant Receptionist Name Role Phone Malinda Owens Primary Care Provider [phone] Reason for Visit * Reason Comments Chemotherapy [...] MA INJ CYCLOPHOSPHAMD Em Bird MD [address] [facility] [place] [address] Phone: tel: fax: Hematology/Oncology Treatment, [address] [address] Phone: tel: fax: Referral ID Status Reason Start Date Expiration Date V isits Requested Visits Authorized [id number] Authorized 04/30/2024 07/07/2024 999 [id number] Encounter Details Date Type Department Care Team (Latest Contact Info) Description 05/08/2024 9:30 AM EST Hem/Onc Treatment Hematology/Oncolog y Treatment, [address] [address] [place], Chair 9 Hem Onc Scenery [address] [place] [address] Malignant neoplasm of upper-outer quadrant of left [...] and class I obesity. Per review of PROP SETTER documentation of 09/25/23, blood glucose values have [...] Recommend nutrition consult with RDN (Registered Dietitian Welder). Lifestyle changes are also indicated including optimizing [...] and folate levels and referral to a smash piecer. If hemoglobin levels are below 8 g/dl, we recommend Maternal Medicine ultrasound for growth every 4 weeks after 24 weeks. Consider a blood transfusion if hemoglobin levels fall below 6 g/dL. ([employer] Teacher [employer] Practice Bulletin Number 95, December,). Consider Venofer [...] money to get more. 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 Not on file [...] 05/29/2024 9:30 AM EST Laboratory Laboratory Scenery [place] [address] [place] [address] [place], Lab Scenery [address] [place], [place] [address] 05/29/2024 10:30 AM EST Hem/Onc Treatment Hematology/Oncology Treatment, [place] [address] [facility] [place] [address] [place], Chair 9 Hem Onc Scenery [address] [place] [address] 06/05/2024 9:50 AM EST Laboratory Laboratory [facility] [place] [address] [place] [address] [place], Lab Scenery [address] [facility] [place], [place] [address] 06/05/2024 11:00 AM EST Hem/Onc Treatment Hematology/Oncology Treatment, [place] 200 [facility] [place] [address] [place], Chair 6 Hem Onc Scenery [address] [place], [place] [address] 06/12/2024 10:00 AM EST Laboratory Laboratory Scenery [place] [address] [place] [address] [place], Lab Scenery [address] [facility] [place], [place] [address] 06/12/2024 11:00 AM EST Hem/Onc Treatment Hematology/Oncology Treatment, [address], [place] [phone] [place], Chair 6 Hem Onc [facility] 200 [facility] [place], [place] [address] 06/19/2024 9:00 AM EST Laboratory Laboratory [facility] [place] 200 [facility] [place], [place] [phone] [place], Lab [facility] 200 [facility] [place], [place] [address] 06/19/2024 9:30 AM EST Office Visit Hematology/Oncology [facility] 200 [facility] [place], [place] [phone] Em Ng MD [address] [place] [phone] 06/19/2024 10:00 AM EST Hem/Onc Treatment Hematology/Oncology [address], [place] [phone] [place], Chair [address] [place], [place] [address] 08/06/2024 9:00 AM EST Telemedicine Genetics HemOnc, [facility] [address] [place] [address] Estephania Reyes, [place] [address] [place] [address] Health Maintenance Due Date Last [...] this encounter Medical Devices Implanted Type Area Chemical Operations Specialist Device Identifier Shelf Expiration Date Model / Serial / Lot Stent Angulo 4fr 11cm - [id number] Implanted:Qty : 1 on 02/08/2024 by Jeffrey Kerr MD at OR [facility] [employer] [id number] 08/16/2028 [id number] / / [id number] Port Implant W8f Poly Cath - [id number] Implanted:Qty : 1 on 05/02/2024 by Iam Curry MD at OR [facility] Right: Chest CR BARD : PERIPHERAL VASCULAR [id number] 05/17/2025 [id number] / / [id number] documented as of this encounter Visit Diagnoses [...] at 1200, For 1 dose, Restricted per HU HU [...] mL/hr documented in this encounter Care Teams Office Assistant Receptionist Relationship Specialty Start Date End Date Malinda Owens CRNP [address] [place] [address] PCP - General Nurse Practitioner 09/20/23 documented as of this encounter
--- OUTSIDE RECORDS SUMMARY | 2024-09-05 14:38 | External Medical Summary | Summary of Care ---
Author Name Unknown Organization [facility] Address [address] [place] [address] Phone [phone] Care Team Providers Care Etl Programmer Name Role Phone Ridge Owensmargaret AD Primary Care Provider [phone] Reason for Visit * Reason Onset Date Comments Advice 05/27/2024 Encounter Details Date Type Department Care Team (Late st Contact Info) Description 05/27/2024 Telephone Hematology/Oncology [facility] [address] [place] [facility] [place] [address] Services, Scheduling [address] [place] [address] Advice Allergies No known active allergiesdocumented as [...] complete. Enrolled in Current Health. Plans to cotton picking machine operator meter from pharmacy today. Instructions [...] and class I obesity. Per review of ROLL ON WORKER documentation of 09/25/23, blood glucose values have [...] Recommend nutrition consult with RDN (Registered Dietitian Physician Liaison). Lifestyle changes are also indicated including optimizing [...] and folate levels and referral to a sales warehouse driver. If hemoglobin levels are below 8 g/dl, we recommend Maternal Medicine ultrasound for growth every 4 weeks after 24 weeks. Consider a blood transfusion if hemoglobin levels fall below 6 g/dL. ([employer] Obstetricians and Massotherapist Practice Bulletin Number 95, December,). Consider Venofer [...] money to get more. Never true 03/26/2024 [place] Depression Scale Answer Date Recorded [place] Depression Scale Total 6 12/11/2023 The thought [...] 03/26/2024 Does the household have a [facility] source of income? 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 She states sheherself hasn't had any fevers. Her diarrhea and cramping yesterday has improved significantly and she is feeling well. Pt is going to test for COVID tonight and will send a message to us with these results. * Telephone Encounter - Nu Inman OSA - 05/27/2024 2:13 PM EST calling asknig to speak to nurse, her daughter has covid and rhinovirus and she wants to know if she should still come for her chemo appt this week documented in this encounter Plan of Treatment Upcoming Encounters Date Type Department Care Team (Late st Contact Info) Description 06/05/2024 9:50 AM EST Laboratory Laboratory Scenery [facility] [address] [place] [phone] [place], Lab Scenery [address] [place], [place] [address] 06/05/2024 11:00 AM EST Hem/Onc Treatment Hematology/[address]cology [address], [address] [address] [place], Chair 6 Hem Onc Scenery [address] [place] [address] 06/12/2024 10:00 AM EST Laboratory Laboratory [facility] [place] [address] [place], [place] [address] [place], Lab Scenery [address] [facility] [place], [place] [address] 06/12/2024 11:00 AM EST Hem/Onc Treatment Hematology/Oncology Treatment, [address], [place] [address] [place], Chair 6 Hem Onc Scenery [address] [place] [address] 06/19/2024 9:00 AM EST Laboratory Laboratory [facility] [address] [place], [place] [address] [place], Lab Scenery [address] [place], [place] [address] 06/19/2024 9:30 AM EST Office Visit Hematology/Oncology [place] 200 [facility] [place] [facility] [place] [phone] Em Ng MD [address] [facility] [place] [phone] 06/19/2024 10:00 AM EST Hem/Onc Treatment Hematology/Oncology Treatment, [place] 200 [place] [address] [place], Chair 11 Hem Onc [facility] 200 [facility] [place] [address] 08/06/2024 9:00 AM EST Telemedicine Genetics HemOnc, [facility] [address] [place] [address] Estephania Reyes, [place] [address] [place] [address] Health Maintenance Due Date Last [...] this encounter Medical Devices Implanted Type Area Funeral Professional Device Identifier Shelf Expiration Date Model / Serial / Lot Stent Kev 4fr 11cm - [id number] Implanted:Qty : 1 on 02/08/2024 by Jeffrey Kerr MD at OR [facility] [employer] [id number] 08/16/2028 [id number] / / [id number] Port Implant W8f Poly Cath - [id number] Implanted:Qty : 1 on 05/02/2024 by Iam Curry MD at OR [facility] Right: Chest CR BARD : PERIPHERAL VASCULAR [id number] 05/17/2025 [id number] / / [id number] documented as of this encounter Care Teams Etl Programmer Relationship Specialty Start Date End Date Malinda Owens CRNP [address] [facility] [place] [address] PCP - General Nurse Practitioner 09/20/23 documented as of this encounter
--- OUTSIDE RECORDS SUMMARY | 2024-09-05 14:38 | External Medical Summary | Summary of Care ---
Author Name Unknown Organization [facility] Address [address] [place] [place] [address] Phone [phone] Care Team Providers Care Anodizing Line Operator Name Role Phone Malinda Owens Primary Care Provider [phone] Reason for Visit * Reason Comments Chemotherapy [...] MA INJ CYCLOPHOSPHAMD Em Bird MD [address] [facility] [place] [address] Phone: tel: fax: Hematology/Oncology Treatment, [address] [address] Phone: tel: fax: Referral ID Status Reason Start Date Expiration Date V isits Requested Visits Authorized [id number] Authorized 04/30/2024 07/07/[phone] Encounter Details Date Type Department Care Team (Latest Contact Info) Description 05/08/2024 9:30 AM EST Hem/Onc Treatment Hematology/Oncolog y Treatment, [address] [address] [place], Chair 9 Hem Onc Scenery [address] [place] [address] Malignant neoplasm of upper-outer quadrant of left [...] and class I obesity. Per review of FINANCIAL SERVICES SALES REPRESENTATIVE documentation of 09/25/23, blood glucose values have [...] Recommend nutrition consult with RDN (Registered Dietitian Marble Machine Tender). Lifestyle changes are also indicated including [...] and folate levels and referral to a communications operator. If hemoglobin levels are below 8 g/dl, we recommend Maternal Medicine ultrasound for growth every 4 weeks after 24 weeks. Consider a blood transfusion if hemoglobin levels fall below 6 g/dL. ([employer] Obstetricians and Glue Cook Practice Bulletin Number 95, December,). 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 Not on file Not [...] 05/29/2024 9:30 AM EST Laboratory Laboratory Scenery [place] [address] [place] [address] [place], Lab Scenery [address] [place], [place] [address] 05/29/2024 10:30 AM EST Hem/Onc Treatment Hematology/Oncology Treatment, [place] 200 [facility] [place] [address] [place], Chair 9 Hem Onc Scen[place] [address] [place] [address] 06/05/2024 9:50 AM EST Laboratory Laboratory [facility] [place] [address] [place] [address] [place], Lab Scenery [address] [facility] [place], [place] [address] 06/05/2024 11:00 AM EST Hem/Onc Treatment Hematology/Oncology Treatment, [place] 200 [facility] [place] [address] [place], Chair 6 Hem Onc [place] [address] [place], [place] [address] 06/12/2024 10:00 AM EST Laboratory Laboratory Scenery [place] [address] [place] [address] [place], Lab Scenery [address] [facility] [place], [place] [address] 06/12/2024 11:00 AM EST Hem/Onc Treatment Hematology/Oncology Treatment, [address], [place] [phone] [place], Chair 6 Hem Onc [facility] 200 [facility] [place], [place] [address] 06/19/2024 9:00 AM EST Laboratory Laboratory [facility] [place] 200 [facility] [place], [place] [address] [place], Lab [facility] 200 [facility] [place], [place] [address] 06/19/2024 9:30 AM EST Office Visit Hematology/Oncology [facility] 200 [facility] [place], [place] [phone] Em Ng MD [address] [place] [phone] 06/19/2024 10:00 AM EST Hem/Onc Treatment Hematology/Oncology Treatment[address], [place] [phone] [place], Chair 11 Hem Onc [address] [place], [place] [address] 08/06/2024 9:00 AM EST Telemedicine Genetics HemOnc, [facility] [address] [place] [address] Estephania Reyes, [place] [address] [place] [address] Health Maintenance Due Date Last [...] this encounter Medical Devices Implanted Type Area Insurance Follow Up Rep Device Identifier Shelf Expiration Date Model / Serial / Lot Stent Angulo 4fr 11cm - [id number] Implanted:Qty : 1 on 02/08/2024 by Jeffrey Kerr MD at OR [facility] [employer] [id number] 08/16/2028 [id number] / / [id number] Port Implant W8f Poly Cath - [id number] Implanted:Qty : 1 on 05/02/2024 by Iam Curry MD at OR [facility] Right: Chest CR BARD : PERIPHERAL VASCULAR [id number] 05/17/2025 [id number] / / [id number] documented as of this encounter Visit Diagnoses [...] at 1200, For 1 dose, Restricted per [facility] antiemetic guidelinesIndications:Malign ant neoplasm of upper-outer [...] mL/hr documented in this encounter Care Teams Anodizing Line Operator Relationship Specialty Start Date End Date Malinda Owens CRNP [address] [place] [address] PCP - General Nurse Practitioner 09/20/23 documented as of this encounter
--- OUTSIDE RECORDS SUMMARY | 2024-09-05 14:38 | External Medical Summary | Summary of Care ---
Author Name Unknown Organization [facility] Address [address] [place] [place] [address] Phone [phone] Care Team Providers Care Upholstery Tech Name Role Phone Malinda Owens Primary Care [...] FULPHILA MT PACLITAXEL INJECTION MT INJ CYCLOPHOSPHAMD Em Bird MD 400 [place] [address] Phone: tel: fax: Hematology/Oncology Treatment, [address] [address] Phone: tel: fax: Referral ID Status Reason Start Date Expiration Date V isits Requested Visits Authorized [id number] Authorized 04/30/2024 07/07/[phone] Encounter Details Date Type Department Care Team (Latest Contact Info) Description 05/08/2024 9:30 AM EST Hem/Onc Treatment Hematology/Oncolog y Treatment, [address] [address] [place], Chair 9 Hem Onc Scenery [address] [place] [address] Malignant neoplasm of upper-outer quadrant of left [...] complete. Enrolled in Current Health. Plans to oyster picker meter from pharmacy today. Instructions provided [...] and class I obesity. Per review of THROAT CUTTER documentation of 09/25/23, blood glucose values [...] Recommend nutrition consult with RDN (Registered Dietitian Apple Picker). Lifestyle changes are also indicated including optimizing [...] and folate levels and referral to a accounting systems manager. If hemoglobin levels are below 8 g/dl, we recommend Maternal Medicine ultrasound for growth every 4 weeks after 24 weeks. Consider a blood transfusion if hemoglobin levels fall below 6 g/dL. ([employer] Obstetricians and Content Administrator Practice Bulletin Number 95, December,). Consider [...] money to get more. 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 [...] 05/29/2024 9:30 AM EST Laboratory Laboratory Scenery [place] [address] [place] [address] [place], Lab Scenery [address] [place], [place] [address] 05/29/2024 10:30 AM EST Hem/Onc Treatment Hematology/Oncology Treatment, [place] 200 [facility] [place] [address] [place], Chair 9 Hem Onc Scenery [address] [place] [address] 06/05/2024 9:50 AM EST Laboratory Laboratory [facility] [place] [address] [place] [address] [place], Lab Scenery [address] [facility] [place], [place] [address] 06/05/2024 11:00 AM EST Hem/Onc Treatment Hematology/Oncology Treatment, [place] 200 [facility] [place] [address] [place], Chair 6 Hem Onc Scenery [address] [place], [place] [address] 06/12/2024 10:00 AM EST Laboratory Laboratory Scenery [place] [address] [place] [address] [place], Lab Scenery [address] [facility] [place], [place] [address] 06/12/2024 11:00 AM EST Hem/Onc Treatment Hematology/Oncology Treatment, [address], [place] [phone] [place], Chair 6 Hem Onc [facility] 200 [facility] [place], [place] [address] 06/19/2024 9:00 AM EST Laboratory Laboratory [facility] [place] 200 [facility] [place], [place] [phone] [place], Lab [facility] 200 [facility] [place], [place] [address] 06/19/2024 9:30 AM EST Office Visit Hematology/Oncology [facility] 200 [facility] [place], [place] [phone] Em Ng MD [address] [place] [phone] 06/19/2024 10:00 AM EST Hem/Onc Treatment Hematology/Oncology [address], [place] [phone] [place], Chair 11 Hem On[address] [place], [place] [address] 08/06/2024 9:00 AM EST Telemedicine Genetics HemOnc, [facility] [address] [place] [address] Estephania Reyes, [place] [address] [place] [address] Health Maintenance Due Date Last [...] this encounter Medical Devices Implanted Type Area Farm Machine Operator Device Identifier Shelf Expiration Date Model / Serial / Lot Stent Angulo 4fr 11cm - [id number] Implanted:Qty : 1 on 02/08/2024 by Jeffrey Kerr MD at OR [facility] [employer] [id number] 08/16/2028 [id number] / / [id number] Port Implant W8f Poly Cath - [id number] Implanted:Qty : 1 on 05/02/2024 by Iam Curry MD at OR [facility] Right: Chest CR BARD : PERIPHERAL VASCULAR [id number] 05/17/2025 [id number] / / [id number] documented as of this encounter Visit Diagnoses [...] at 1200, For 1 dose, Restricted per [facility] antiemetic guidelinesIndications:Malign ant neoplasm of upper-outer [...] mL/hr documented in this encounter Care Teams Upholstery Tech Relationship Specialty Start Date End Date Malinda Owens CRNP [address] [place] [address] PCP - General Nurse Practitioner 09/20/23 documented as of this encounter
--- OUTSIDE RECORDS SUMMARY | 2024-09-05 14:38 | External Medical Summary ---
Author Name Unknown Address Unknown Organization K09:[facility] [place] [address] Laboratory Report Ordering Provider Test Date Status LISE JAVIER 05/29/2024 09:04:47 Final Observation Date Value Abnormality Reference (Units ) Status BUN 05/29/2024 09:04:47 18 6-20 (mg/dL) Final Creatinine 05/29/2024 09:04:47 0.8 0.5-1.0 (mg/dL) Final Glomerular filtration rate/1.73 sq M.predicted [Volume Rate/Area] in Serum, Plasma or Blood by Creatinine-based formula (CKD-EPI) 05/29/2024 09:04:47 >90 >=60 (mL/min) Final eGFR is calculated based on the CKD-EPI 2020 equation. Sodium 05/29/2024 09:04:47 140 135-146 (m mol/L) Final Potassium 05/29/2024 09:04:47 4.7 3.5-5.1 (m mol/L) Final Cl 05/29/2024 09:04:47 104 98-107 (mm ol/L) Final CO2 05/29/2024 09:04:47 21 Below low normal 22- 32 (mmol/L) Final Anion gap 05/29/2024 09:04:47 15 7-15 (mmol /L) Final Glucose 05/29/2024 09:04:47 132 Above high normal 70 -120 (mg/dL) Final Albumin 05/29/2024 09:04:47 4.7 3.8-5.0 (g /dL) Final AST (Aspartate aminotransferase) 05/29/2024 09:04:47 16 10-35 (U/L) Fin al Result may be falsely elevat ed due to hemolysis. Alk Phos 05/29/2024 09:04:47 95 35-130 (U/ L) Final Bilirubin, Total 05/29/2024 09:04:47 0.5 <=1 .2 (mg/dL) Final Calcium 05/29/2024 09:04:47 9.8 8.4-10.2 ( mg/dL) Final Protein 05/29/2024 09:04:47 7.9 6.0-8.3 (g /dL) Final ALT (Alanine aminotransferase) 05/29/2024 09:04:47 23 10-35 (U/L) Final Performing Location [facility] [address] [place] [address]
--- OUTSIDE RECORDS SUMMARY | 2024-09-05 14:38 | External Medical Summary | Summary of Care ---
Author Name Unknown Organization [facility] Address [address] [place] [address] Phone [phone] Care Team Providers Care Rug Hooker Name Role Phone Malinda Owens Primary Care Provider [phone] Reason for Visit * Reason Comments Outpatient Testing Encounter Details Date Type Department Care Team (Late st Contact Info) Description 05/29/2024 9:30 AM EST Laboratory Laboratory [facility] [address] [place] [phone] [facility] [address] [facility] [place] [address] Malignant neoplasm of upper-outer quadrant of left [...] Oral Tablet (Decadron)Indicati ons:Encounter for antineoplastic chemotherapy,Jess hcristie neoplasm of upper-outer quadrant of left breast [...] complete. Enrolled in Current Health. Plans to sampler pickup meter from pharmacy today. Instructions provided to [...] and class I obesity. Per review of WEAPONS OFFICER documentation of 09/25/23, blood glucose values [...] Recommend nutrition consult with RDN (Registered Dietitian Wall And Floor Tiler). Lifestyle changes are also indicated including optimizing [...] and folate levels and referral to a renal case manager. If hemoglobin levels are below 8 g/dl, we recommend Maternal Medicine ultrasound for growth every 4 weeks after 24 weeks. Consider a blood transfusion if hemoglobin levels fall below 6 g/dL. ([employer] [facility] [employer] [facility] Bulletin Number 95, December,). Consider Venofer [...] money to get more. 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 Not on file Not on file documented as of this encounter Plan of Treatment Upcoming Encounters Date Type Department Care Team (Late st Contact Info) Description 05/29/2024 10:30 AM EST Hem/Onc Treatment Hematology/Oncology Treatment, [place] [address] [place] [phone] [place], Chair 9 Hem Onc Scenery [address] [place] [address] Arrived 06/05/2024 9:50 AM EST Laboratory Laboratory Scenery [facility] [address] [place] [address] [place], Lab Scenery [address] [place] [address] 06/05/2024 11:00 AM EST [facility] [address] [facility], [place] [address] [place], Chair 6 Hem Onc Scenery [address] [place], [place] [address] 06/12/2024 10:00 AM EST Laboratory Laboratory [facility] [address] [place], [place] [address] [place], Lab Scenery [address] [place], [place] [address] 06/12/2024 11:00 AM EST [facility] [address] [facility], [place] [address] [place], Chair 6 Hem Onc Scenery [address] [place] [address] 06/19/2024 9:00 AM EST Laboratory Laboratory [facility] [address] [place], [place] [address] [place], Lab Scenery [address] [place] [address] 06/19/2024 9:30 AM EST Office Visit Hematology/Oncology [facility] [address] [place] [address] Em Ng MD [address] [place], [place] [address] [phone] 06/19/2024 10:00 AM EST Hem[facility] [address] [facility], [place] [phone] [place], Chair 11 Hem Onc Scenery [address] [facility] [address] 08/06/2024 9:00 AM EST Telemedicine Genetics HemOnc, [facility] [address] [place] [address] Eric Estephania Harrell, MS [address] [place] [address] Pending Results Name Type Priority Associated Diagnoses Date /Time CBC WITH WBC DIFFERENTIAL Lab STAT Malignant neoplasm of upper-outer quadrant of left breast in female, estrogen receptor negative (HCC) 05/29/2024 9:04 AM EST COMPREHENSIVE METABOLIC PANEL Lab STAT Malignant neoplasm of upper-outer quadrant of left breast in female, estrogen receptor negative (HCC) 05/29/2024 9:04 AM EST CBC Lab STAT Malignant neoplasm of upper-outer quadrant of left breast in female, estrogen receptor negative (HCC) 05/29/2024 9:04 AM EST DIFFERENTIAL, AUTOMATED Lab STAT Malignant neoplasm of upper-outer quadrant of left breast in female, estrogen receptor negative (HCC) 05/29/2024 9:04 AM EST Health Maintenance Due Date Last [...] this encounter Medical Devices Implanted Type Area Language Teacher Device Identifier Shelf Expiration Date Model / Serial / Lot Stent Kev montes de ocar 11cm - [id number] Implanted:Qty : 1 on 02/08/2024 by Jeffrey Kerr MD at OR [facility] [employer]uffle [id number] 08/16/2028 [id number] / / [id number] Port Implant W8f Poly Cath - [id number] Implanted:Qty : 1 on 05/02/2024 by Iam Curry MD at OR [facility] Right: Chest CR BARD : PERIPHERAL VASCULAR [id number] 05/17/2025 [id number] / / [id number] documented as of this encounter Procedures Procedure Name Priority Date/Time Associated Diagnosis Comments HCG QUALITATIVE, URINE STAT 05/29/2024 9:04 AM EST Malignant neoplasm of upper-outer quadrant of left breast in female, estrogen receptor negative (HCC) documented in this encounter Results * HCG QUALITATIVE, URINE (05/29/2024 9:04 AM EST) HCG Qualitative, Urine Negative Negative 05/29/2024 9:14 AM EST [facility] 56-02 Urine Urine specimen obtained by clean catch procedure / Unknown Non-blood Collection / Unknown 05/29/2024 9:04 AM EST 05/29/2024 9:04 AM EST Mandeep Luna MD LAB URINE ORDERABLES Fin al Result [facility] 56-[address] [place] [address] documented in this encounter Visit [...] (HCC) documented in this encounter Care Teams Rug Hooker Relationship Specialty Start Date End Date Malinda Owens CRNP [address] [place] [address] PCP - General Nurse Practitioner 09/20/23 documented as of this encounter
--- OUTSIDE RECORDS SUMMARY | 2024-09-05 14:38 | External Medical Summary ---
Author Name Unknown Address Unknown Organization K09:[facility] [place] [address] Laboratory Report Ordering Provider Test Date Status LISE JAVIER 05/29/2024 09:04:47 Final Observation Date Value Abnormality Reference (Units ) Status WBC, Total 05/29/2024 09:04:47 3.59 Below low normal 4. 00-10.80 (K/uL) Final RBC 05/29/2024 09:04:47 3.85 3.85-5.15 (M/uL) Final Hemoglobin 05/29/2024 09:04:47 12.2 12.0-15.3 (g/dL) Final HCT 05/29/2024 09:04:47 37.3 36.0-45.2 (%) Final MCV 05/29/2024 09:04:47 96.9 81.5-97.5 (fL) Final MCH 05/29/2024 09:04:47 31.7 27.0-34.0 (pg) Final MCHC 05/29/2024 09:04:47 32.7 32.0-36.0 (g/dL) Final RDW 05/29/2024 09:04:47 12.1 11.5-15.5 (%) Final Platelets 05/29/2024 09:04:47 306 140-400 (K /uL) Final MPV 05/29/2024 09:04:47 9.5 6.6-11.1 ( fL) Final Performing Location [facility] [place] [address]
--- OUTSIDE RECORDS SUMMARY | 2024-09-05 14:38 | External Medical Summary ---
Author Name Unknown Address Unknown Organization K09:[facility] [place] [address] Laboratory Report Ordering Provider Test Date Status LISE JAVIER 05/29/2024 09:04:47 Final Observation Date Value Abnormality Reference (Units ) Status Screen, Urine 05/29/2024 09:04:47 Negative Negative Final Performing Location [facility] [place] [address]
--- OUTSIDE RECORDS SUMMARY | 2024-09-05 14:39 | External Medical Summary | Summary of Care ---
Author Name Unknown Organization [facility] Address [address] [facility] [place] [address] Phone [phone] Care Team Providers Care House Father Name Role Phone Malinda Owens Primary Care Provider [phone] Reason for Visit * Reason Comments Chemotherapy Chemo/recheck Encounter Details Date Type Department Care Team (Late st Contact Info) Description 05/22/2024 9:30 AM EST Office Visit Hematology/Oncology [facility] [place] [address] [facility] [place] [place] [address] Gabby Zavala CRNP [address] [place] [address] Malignant neoplasm of upper-outer quadrant of left breast in female, estrogen receptor negative (HCC)*; Encounter for antineoplastic chemotherapy Allergies No known active allergiesdocumented as of this encounter (statuses as of 05/25/2024) Medications 29-1 MG Oral Tablet Chewable Take [...] as of this encounter (statuses as of 05/25/2024) Active Problems Problem Noted Date Diagnosed Date [...] complete. Enrolled in Current Health. Plans to crab picker meter from pharmacy today. Instructions provided [...] and class I obesity. Per review of PLUCK TRIMMER documentation of 09/25/23, blood glucose values have [...] Recommend nutrition consult with RDN (Registered Dietitian Automobile Club Membership Sales Agent). Lifestyle changes are also indicated including [...] and folate levels and referral to a pleater hand. If hemoglobin levels are below 8 g/dl, we recommend Maternal Medicine ultrasound for growth every 4 weeks after 24 weeks. Consider a blood transfusion if hemoglobin levels fall below 6 g/dL. ([employer] [facility] [employer] [facility] Bulletin Number 95, December,). Consider Venofer [...] as of this encounter (statuses as of 05/25/2024) Resolved Problems Problem Noted Date Diagnosed Date Resolved Date Abnormal glucose tolerance i n mother complicating 04/19/2023 08/31/2023 Overview (04/19/2023): Failed early glucola. 3hr GTT ordered documented as of this encounter (statuses as of 05/25/2024) Immunizations Name Administration Dates Next Due DTP [...] money to get more. Never true 03/26/2024 [place] Depression Scale Answer Date Recorded [place] Depression Scale Total 6 12/11/2023 The thought [...] No 03/26/2024 Does the household have a [facility] source of income? (Household [...] Sign Reading Time Taken Comments Blood Pressure 105/75 05/22/2024 9:32 AM EST Pulse 106 05/22/2024 9:32 AM EST Temperature 36.4 C (97.6 F) 05/22/2024 9:32 AM ES T Respiratory Rate - - Oxygen Saturation 95% 05/22/2024 9:32 AM EST Inhaled Oxygen Concentration - - Weight 87.4 kg (192 lb 11.2 oz) 05/22/2024 9:32 AM EST Height - - Body Mass Index 28.44 05/02/2024 10:35 AM EST documented in this encounter Patient Instructions * Patient Instructions* Gabby Zavala CRNP - 05/22/2024 9:48 AM EST Baking Soda Mouth Rinse - 1 teaspoon baking soda - 1 teaspoon salt - 1 quart warm water Swish, gargle and spit 3-4 times a day. documented in this encounter Progress Notes * Gabby Zavala CRNP - 05/22/2024 9:30 AM EST Hematology/Oncology Outpatient Clinic note [facility] [address] [place] [address] Name: Yuli Gutierrez Date: 05/21/2024 CHIEF COMPLAINT: Yuli Gutierrez is a 29 year old female patient of Dr. Ng here today for f/u visit today. From Patient chart confirmed with patient. From [...] for f/u visit today and consideration for C1D15 of treatment. Patient overall feeling well. Does have some mildoral ulcerations but are not painful. Some foods are not tasting right to her. The third day after treatment will get a headaches and nauseous. As needed nausea medications do help some. Lasts for about two days. Denies any peripheral neuropathy. Having trouble getting motivation to cook so not eating as well this week. Trying to push oral fluids. Having loose stools but has not had to take imodium. Feels that her breast mass is smaller. Past Medical History: Diagnosis Date History of gestational diabetes Motion sickness Past Surgical History: Procedure Laterality Date DENTAL SURGERY PROCEDURE NEC Age 12 ERCP, DIAGNOSTIC, SPECIMEN COLLECTION N/A 02/08/2024 choledocholithiasis, complete removal/one plastic pancreatic stent placed into ventral pancreatic duct/ENDOSCOPIC RETROGRADE CHOLANGIOPANCREATOGRAPHY (ERCP) DIAGNOSTIC performed by Jeffrey Kerr MD at OR [facility] INSER TUNN ACC DEV;5 YRS/OLDER Right 05/02/2024 INSERT TUNNELED CENTRAL VENOUS ACCESS WITH SUBQ PORT performed by Iam Curry MD at OR [facility] US GUIDED BREAST BIOPSY LEFT Left [...] HPI - otherwise negative OBJECTIVE: Filed Vitals: 05/22/24 0932 BP: 105/75 Pulse: 106 Temp: 36.4 C (97.6 F) TempSrc: Tympanic SpO2: 95% Weight: 87.4 kg (192 lb 11.2 oz) Wt Readings from Last 5 Encounters: 05/22/24 87.4 kg (192 lb 11.2 oz) 05/16/24 89.4 kg (197 lb) 05/08/24 90.6 kg (199 lb 11.2 oz) 05/02/24 88.5 kg (195 lb) 04/24/24 87.1 kg (192 lb) PHYSICAL EXAM: ECOG: Performance Status 1 = 80-90% Symptoms but nearly ambulatory General Appearance: No acute distress HEENT: +mild oral thrush Lymph Nodes: Normal - No palpable lymph nodes in the neck or supraclavicular areas Lungs/Thorax: Normal - Clear to auscultation Heart: Normal - Regular rate and rhythm, normal S1, S2, no appreciable murmurs Pulses/Extremities: Normal - 2+ throughout and symmetrical, no edema Neurologic: Normal - Grossly intact LABS: Results for orders placed or performed in visit on 05/22/24 COMPREHENSIVE METABOLIC PANEL Result Value Ref Range BUN 14 6 - 20 mg/dL CREATININE 1.0 0.5 - 1.0 mg/dL EGFR 83 >=60 mL/min SODIUM 140 135 - 146 mmol/L POTASSIUM 4.5 3.5 - 5.1 mmol/L CHLORIDE 105 98 - 107 mmol/L CO2 20 (L) 22 - 32 mmol/L ANION GAP 15 7 - 15 mmol/L GLUCOSE 111 70 - 120 mg/dL Albumin 4.7 3.8 - 5.0 g/dL AST 19 10 - 35 U/L Alkaline Phosphatase 100 35 - 130 U/L Bilirubin, Total 0.5 <=1.2 mg/dL CALCIUM 9.6 8.4 - 10.2 mg/dL Protein 7.9 6.0 - 8.3 g/dL ALT 18 10 - 35 U/L HCG QUALITATIVE, URINE Result Value Ref Range HCG Qualitative, Urine Negative Negative CBC Result Value Ref Range WBC 5.15 4.00 - 10.80 K/uL RBC 4.08 3.85 - 5.15 M/uL HGB 12.9 12.0 - 15.3 g/dL HCT 39.8 36.0 - 45.2 % MCV 97.5 81.5 - 97.5 fL MCH 31.6 27.0 - 34.0 pg MCHC 32.4 32.0 - 36.0 g/dL RDW 12.2 11.5 - 15.5 % PLT 244 140 - 400 K/uL MPV 10.0 6.6 - 11.1 fL DIFFERENTIAL, AUTOMATED Result Value Ref Range WBC 5.15 4.00 - 10.80 K/uL Neutrophils % 44.5 40.0 - 75.0 % Lymphocytes % 39.0 18.0 - 42.0 % Monocytes % 9.7 1.0 - 11.0 % Eosinophils % 6.2 (H) 0.0 - 6.0 % Basophils % 0.6 0.0 - 2.0 % Absolute Neutrophils 2.29 1.80 - 7.70 K/uL Absolute Lymphocytes 2.01 1.00 - 4.80 K/ul Absolute Monocytes 0.50 0.00 - 1.10 K/uL Absolute Eosinophils 0.32 0.00 - 0.70 K/uL Absolute Basophils 0.03 0.00 - 0.20 K/uL IMPRESSION/PLAN: Left Triple Negative Breast Cancer Currently completing neoadjuvant chemotherapy with Pembrolizumab D1 + Carboplatin AUC1.5 D1,8,15 + Paclitaxel 80 mg/m2 D1,8,15 q21 Days with plan for 4 cycles. Presents today for consideration of C1D15 of treatment. Lab results reviewed: unremarkable Ok for treatment today as scheduled. Tolerating current treatment plan well with no signs or symptoms of significant toxicity noted. Recommended baking soda/salt water rinses for mild oral thrush Plan for tentative left lumpectomy and sln biopsy after completion of neoadjuvant chemo. Genetics referral pending ADDENDUM: Treatment room covering provider asked to evaluate patient for concerns of infusion drug reaction. Patient seen and examined in treatment room. Per patient and nursing, patients Taxol was running at rate of 250 mL/hr when they developed flushing and nausea. . Patient's infusion was immediately stopped and IV solu-cortef was administered per [place] plan protocol. Was also administered 20 mg IVP Pepcid per recommendation of Dr. Ng. Upon my evaluation, patient is feeling much improved and notes her symptoms have resolved. Patient denies any associated chest pain, respiratory concerns, or rash. VSS. Patient answering all questions appropriately and in complete sentences- able to clear secretions without difficulty. No angioedema noted. No rashes noted. Normal respiratory effort. No LE edema. Case discussed with Dr. Ng. Prescription sent for Dexamethasone 8 mg PO to take night before and morning of all future treatment days. Order also placed to change pre-med Pepcid and Benadryl to IV route for all future treatmentdays. Ok to resume Taxol at ordered rate. RTC in 4 weeks with provider for chemo return AD Montero documented in this encounter Nursing Notes * Anai Delgadillo, RAJAT - 05/22/2024 9:33 AM EST Patient identifed by name and birthdate Do you have any concerns about pain management for today's visit? No Living Will or Advance Directive for Health Care as noted on the problem list. [facility] is a way you can talk to your provider on line through e-mail. Would you like to sign up? I can activate it for you? ALREADY ACTIVE Filed Vitals: 05/22/24 0932 BP: 105/75 Pulse: 106 Temp: 36.4 C (97.6 F) TempSrc: Tympanic SpO2: 95% Weight: 87.4 kg (192 lb 11.2 oz) Patient was instructed to [...] 05/29/2024 9:30 AM EST Laboratory Laboratory Scenery [place] [address] [place] [address] [place], Lab Scenery [address] [facility] [place] [address] 05/29/2024 10:30 AM EST Hem/Onc Treatment Hematology/Oncology Treatment, [place] [address] [facility] [place] [address] [place], Chair 9 Hem Onc Scenery [address] [place] [address] 06/05/2024 9:50 AM EST Laboratory Laboratory Scenery [place] [address] [place] [address] [place], Lab Scenery [address] [facility] [place] [address] 06/05/2024 11:00 AM EST Hem/Onc Treatment Hematology/Oncology Treatment, [place] [address] [facility] [place] [address] [place], Chair 6 Hem Onc Scenery [address] [place], [place] [address] 06/12/2024 10:00 AM EST Laboratory Laboratory Scenery [place] [address] [place], [place] [phone] [place], Lab Scenery [address] [facility] [place], [place] [address] 06/12/2024 11:00 AM EST [facility] [address] [facility], [place] [phone] [place], Chair 6 Hem Onc Scenery [address] [place], [place] [address] 06/19/2024 9:00 AM EST Laboratory Laboratory [facility] [place] [address] [place] [phone] [place], Lab Scenery [address] [facility] [place], [place] [address] 06/19/2024 9:30 AM EST Office Visit Hematology/Oncology [facility] [address] [place], [place] [phone] Em Ng MD [address] [place] [phone] 06/19/2024 10:00 AM EST Hem[facility] 200 [facility], [place] [phone] [place], Chair 11 Hem Onc Scenery [address] [place], [place] [address] 08/06/2024 9:00 AM EST Telemedicine Genetics [facility]c, [facility] [address] [place] [address] Estephania Reyes, [place] [address] [place] [address] Health Maintenance Due Date Last [...] this encounter Medical Devices Implanted Type Area Artillery Maintenance Supervisor Device Identifier Shelf Expiration Date Model / Serial / Lot Stent Kev 4fr 11cm - [id number] Implanted:Qty : 1 on 02/08/2024 by Jeffrey Kerr MD at OR [facility] [email or web address] [id number] 08/16/2028 [id number] / / [id number] Port Implant W8f Poly Cath - [id number] Implanted:Qty : 1 on 05/02/2024 by Ima Curry MD at OR [facility] Right: Chest CR BARD : PERIPHERAL VASCULAR [id number] 05/17/2025 [id number] / / [id number] documented as of this encounter Visit Diagnoses [...] negative (HCC)- Primary Encounter for antineoplastic chemotherapy documented in this encounter Care Teams House Father Relationship Specialty Start Date End Date Malinda Owens CRNP [address] [place] [address] PCP - General Nurse Practitioner 09/20/23 documented as of this encounter
--- OUTSIDE RECORDS SUMMARY | 2024-09-05 14:39 | External Medical Summary | Summary of Care ---
Author Name Unknown Organization [facility] Address [address] [place] [address] Phone [phone] Care Team Providers Care Rolloff Truck Driver Name Role Phone Malinda Owens Primary Care Provider [phone] Reason for Visit * Reason Comments Chemotherapy C1D8 Carboplatin/Tax ol * Episode Based Medications (Routine) - Authorized Specialty Diagnoses / Procedures Referred By Contac t Referred To Contact Diagnoses Malignant neoplasm of upper-outer quadrant of left breast in female, estrogen receptor negative (HCC) Encounter for antineoplastic chemotherapy Encounter for prevention of neutropenia due to chemotherapy Procedures ND DOXORUBIC HCL 10 MG VL CHEMO ND CARBOPLATIN INJECTION ND FOSAPREPITANT INJECTION ND INJ PEMBROLIZUMAB ND INJECTION, FULPHILA ND PACLITAXEL INJECTION ND INJ CYCLOPHOSPHAMD AUROMEDIC Em Ng MD [address] [facility] [place] [address] Phone: tel: fax: Hematology/Oncology Treatment, [address] [place] [address] Phone: tel: fax: Referral ID Status Reason Start Date Expiration Date V isits Requested Visits Authorized [id number] Authorized 04/30/2024 07/07/2024 [id number] Encounter Details Date Type Department Care Team (Latest Contact Info) Description 05/16/2024 10:00 AM EST Hem/Onc Treatment Hematology/Oncolog y Treatment, [address] [place] [address] [place], Chair 2 Hem Onc [address] [address] Malignant neoplasm of upper-outer quadrant of left breast in female, estrogen receptor negative (HCC)*; Encounter for antineoplastic chemotherapy; Encounter for prevention of neutropenia due to chemotherapy; Encounter for fertility preservation procedure; Suppression of ovarian secretion Allergies No known active allergiesdocumented as of this encounter (statuses as of 05/24/2024) Medications 19 29-1 MG Oral Tablet Chewable [...] for Nausea. 30 Tablet 3 05/08/20 Active documented as of this encounter (statuses as of 05/24/2024) Active Problems Problem Noted Date Diagnosed Date [...] and class I obesity. Per review of CULTURAL ANTHROPOLOGY PROFESSOR documentation of 09/25/23, blood glucose values have [...] Recommend nutrition consult with RDN (Registered Dietitian International Organizer). Lifestyle changes are also indicated including optimizing [...] and folate levels and referral to a cw operator. If hemoglobin levels are below 8 g/dl, we recommend Maternal Medicine ultrasound for growth every 4 weeks after 24 weeks. Consider a blood transfusion if hemoglobin levels fall below 6 g/dL. ([employer]ru[employer] Practice Bulletin Number 95, December,). Consider Venofer [...] as of this encounter (statuses as of 05/24/2024) Resolved Problems Problem Noted Date Diagnosed Date Resolved Date Abnormal glucose tolerance i n mother complicating 04/19/2023 08/31/2023 Overview (04/19/2023): Failed early glucola. 3hr GTT ordered documented as of this encounter (statuses as of 05/24/2024) Immunizations Name Administration Dates Next Due DTP [...] money to get more. Never true 03/26/2024 [place] Depression Scale Answer Date Recorded [place] Depression Scale Total 6 12/11/2023 The thought [...] Sign Reading Time Taken Comments Blood Pressure 99/66 05/16/2024 9:45 AM EST Pulse 62 05/16/2024 9:45 AM EST Temperature 36.3 C (97.3 F) 05/16/2024 9:45 AM ES T Respiratory Rate 16 05/16/2024 9:45 AM EST Oxygen Saturation 97% 05/16/2024 9:45 AM EST Inhaled Oxygen Concentration - - Weight 89.4 kg (197 lb) 05/16/2024 9:45 AM EST Height - - Body Mass Index 29.08 05/02/2024 10:35 AM EST documented in this encounter Nursing Notes * Ciara oByce RN - 05/16/2024 2:36 PM EST Goals: Patient will remain free from injury. Possible barriers to meeting goals: ambulation with IV pole Stability of the patient: Moderately stable - low risk of patient condition declining or worsening Summary regarding today's goals: Met: patient without injury during treatment today. Pt tolerated ordered meds well. No complaints. Discharged in stable condition. * Ciara Boyce RN - 05/16/2024 10:31 AM EST Chair 6 Pt here for C1D8 Taxol/Carboplatin. No complaints. Reports she had some side effects over the weekend but feeling well since . Chemotherapy/Immunotherapy agents: CARBOPLATIN and TAXOL Consent for chemotherapy drug treatment complete, dated, and signed? yes, date - 04/24/24 Treatment lab parameters met? Yes Has treatment weight changed > than 10%? No Treatment preauthorized? Yes VITALS Filed Vitals: 05/16/24 0945 BP: 99/66 Pulse: 62 Resp: 16 Temp: 36.3 C (97.3 F) TempSrc: Tympanic SpO2: 97% Weight: 89.4 kg (197 lb) BP Readings from Last 2 Encounters: 05/16/24 99/66 05/08/24 100/67 Pulse Readings from Last 2 Encounters: 05/16/24 62 05/08/24 54 Resp Readings from Last 2 Encounters: 05/16/24 16 05/02/24 16 SpO2 Readings from Last 2 Encounters: 05/16/24 97% 05/08/24 98% Temp Readings from Last 2 Encounters: 05/16/24 36.3 C (97.3 F) (Tympanic) 05/08/24 36.3 C (97.4 F) (Tympanic) Urine protein: N/A Patient education [...] using the heat function. PRE-TREATMENT ASSESSMENT: NEURO: headaches: over the weekend, denies neuropathy CV/RESP: denies symptoms GI/: nausea: over the weekend, took PRN meds and diarrhea: after eating, thinks it's related to food she's eating OTHER: denies any additional symptoms PAIN: 0 Safety and Risk for Injury Patient will remain free from injury. Ensure appropriate safety devices are available. Provide and maintain safe environment. documented in this encounter Plan of Treatment Upcoming Encounters Date Type Department Care Team (Late st Contact Info) Description 05/29/2024 9:30 AM EST Laboratory Laboratory Scenery [facility] [address] [place], [place] [address] [place], Lab Scenery [address] [facility] [place], [place] [address] 05/29/2024 10:30 AM EST Hem/Onc Treatment Hematology/Oncology Treatment, [place] [address] [facility], [place] [address] [place], Chair 9 Hem Onc Scenery [address] [place], [place] [address] 06/05/2024 9:50 AM EST Laboratory Laboratory [facility] [address] [place], [place] [address] [place], Lab Scenery [address] [facility] [place], [place] [address] 06/05/2024 11:00 AM EST Hem/Onc Treatment Hematology/Oncology Treatment, [place] [address] [facility] [place], [place] [address] [place], Chair 6 Hem Onc Scenery [address] [place], [place] [address] 06/12/2024 10:00 AM EST Laboratory Laboratory [facility] [place] [address] [place], [place] [address] [place], Lab Scenery [address] [facility] [place] [address] 06/12/2024 11:00 AM EST Hem/Onc Treatment Hematology/Oncology Treatment, [place] [address] [facility], [place] [address] [place], Chair 6 Hem Onc Scenery [address] [place], [place] [address] 06/19/2024 9:00 AM EST Laboratory Laboratory Scenery [facility] [address] [place], [place] [phone] [place], Lab Scenery [address] [facility] [place], [place] [address] 06/19/2024 9:30 AM EST Office Visit Hematology/Oncology [facility] [place] [address] [place] [phone] Em Ng MD [address] [place], [place] [address] [address] 06/19/2024 10:00 AM EST Hem/Onc Treatment Hematology/Oncology Treatment, [place] [address] [facility] [address] [place], Chair 11 Hem Onc [facility] [address] [facility] [place] [address] 08/06/2024 9:00 AM EST Telemedicine Genetics HemOnc, [facility] [address] [place] [address] Estephania Reyes, MS [address] [place] [address] Health Maintenance [...] this encounter Medical Devices Implanted Type Area Core Measures Abstractor Device Identifier Shelf Expiration Date Model / Serial / Lot Stent Kev 4fr 11cm - [id number] Implanted:Qty : 1 on 02/08/2024 by Jeffrey Kerr MD at OR [facility] [employer] [id number] 08/16/2028 [id number] / / [id number] Port Implant W8f Poly Cath - [id number] Implanted:Qty : 1 on 05/02/2024 by Iam Curry MD at OR [facility] Right: Chest CR BARD : PERIPHERAL VASCULAR [id number] 05/17/2025 [id number] / / [id number] documented as of this encounter Visit Diagnoses [...] PROTECT FROM LIGHT, ONCE, 1 dose, On Sun05/16/24 at 1315Indications:Jess christie neoplasm of upper-outer quadrant of left breast in female, estrogen receptor negative (HCC),Encounter for antineoplastic chemotherapy,Encounte r for prevention of neutropenia due to chemotherapy Start Infusion 05/16/2024 11:47 AM EST 199 mg 510 mL/hr dexAMETHasone (Decadron) tab 12 mg 12 mg, Oral, ONCE, On Sun05/16/24 at 1045, For 1 doseIndications:Jess christie neoplasm of upper-outer quadrant of left breast in female, estrogen receptor negative (HCC),Encounter for antineoplastic chemotherapy,Encounte r for prevention of neutropenia due to chemotherapy Given 05/16/2024 10:12 AM EST 12 mg diphenhydrAMINE (Benadryl) cap 50 mg 50 mg, Oral, ONCE, On Sun05/16/24 at 1115, For 1 doseIndications:Jess simont neoplasm of upper-outer quadrant of left breast in female, estrogen receptor negative (HCC),Encounter for antineoplastic chemotherapy,Encounte r for prevention of neutropenia due to chemotherapy Given 05/16/2024 10:12 AM EST 50 mg Famotidine (Pepcid) tab 20 mg 20 mg, Oral, ONCE, On Sun05/16/24 at 1115, For 1 doseIndications:Jess christie neoplasm of upper-outer quadrant of left breast in female, estrogen receptor negative (HCC),Encounter for antineoplastic chemotherapy,Encounte r for prevention of neutropenia due to chemotherapy Given 05/16/2024 10:12 AM EST 20 mg hEParin 100 UNIT/ML Lock Flush inj 500 Units 500 Units (5 mL), IV Lock, PRN Other, IV Flush, Starting on Sun05/16/24 at 1001, Until Sun05/16/24 at 1838, For 24 hours, Do not flush if lock, PICC, or central line not in place; IV infusing or unable to flush.Indications:Mal ignant neoplasm of upper-outer quadrant of left breast in female, estrogen receptor negative (HCC),Encounter for antineoplastic chemotherapy,Encounte r for prevention of neutropenia due to chemotherapy Given 05/16/2024 12:25 PM EST 500 Units Leuprolide Acetate (Lupron) inj 3.75 mg 3.75 mg, Intramuscular, ONCE, On Sun05/16/24 at 1145, For 1 doseIndications:Jess simont neoplasm of upper-outer quadrant of left breast in female, estrogen receptor negative (HCC),Encounter for fertility preservation procedure,Suppression of ovarian secretion Given 05/16/2024 10:50 AM EST 3.75 mg Dorsogluteal Left NSS infusion Intravenous, at 50 mL/hr, PRN, Starting on Sun05/16/24 at 1115, Until Sun05/16/24 at 1838, Maintenance lineIndications:Malforest nant neoplasm of upper-outer quadrant of left breast in female, estrogen receptor negative (HCC),Encounter for antineoplastic chemotherapy,Encounte r for prevention of neutropenia due to chemotherapy Start Infusion 05/16/2024 10:02 AM EST 50 mL/hr PACLitaxel (Taxol) 165 mg in NSS 250 mL infusion 165 mg (rounded from 164.8 mg = 80 mg/m2 2.06 m2 Treatment Plan BSA from Recorded weight), IV Piggyback, ONCE, 1 dose, On Sun05/16/24 at 1215, Administer over 60 Minutes, Administer through 0.22 micron low protein binding filter!Indications:Ma lignant neoplasm of upper-outer quadrant of left breast in female, estrogen receptor negative (HCC),Encounter for antineoplastic chemotherapy,Encounte r for prevention of neutropenia due to chemotherapy Start Infusion 05/16/2024 10:45 AM EST 165 mg 255 mL/hr Palonosetron (Aloxi) inj SOLN 0.25 mg 0.25 mg, IV Push, ONCE, On Sun05/16/24 at 1045, For 1 dose, Restricted per S antiemetic guidelinesIndications :Malignant neoplasm of upper-outer quadrant of left breast in female, estrogen receptor negative (HCC),Encounter for antineoplastic chemotherapy,Encounte r for prevention of neutropenia due to chemotherapy Given 05/16/2024 10:13 AM EST 0.25 mg sodium chloride 0.9 % flush central line 10 mL 10 mL, IV Push, PRN Other, IV Flush, Starting on Sun05/16/24 at 1001, Until Sun05/16/24 at 1838, For 24 hours, Do not flush if lock, PICC, or central line not in place; IV infusing or unable to flush.Indications:Mal ignant neoplasm of upper-outer quadrant of left breast in female, estrogen receptor negative (HCC),Encounter for antineoplastic chemotherapy,Encounte r for prevention of neutropenia due to chemotherapy Given 05/16/2024 12:25 PM EST 10 mL documented in this encounter Care Teams Rolloff Truck Driver Relationship Specialty Start Date End Date Malinda Owens CRNP [address] [place] [address] PCP - General Nurse Practitioner 09/20/23 documented as of this encounter
--- OUTSIDE RECORDS SUMMARY | 2024-09-05 14:39 | External Medical Summary | Summary of Care ---
Author Name Unknown Organization [facility] Address [address] [place] [address] Phone [phone] Care Team Providers Care Strand Forming Machine Operator Name Role Phone Malinda Owens Primary Care Provider [phone] Reason for Visit * Reason Comments Chemotherapy [...] HI PACLITAXEL INJECTION HI INJ CYCLOPHOSPHAMD AUROMEDIC Em Ng MD [address] [facility] [place] [address] Phone: tel: fax: Hematology/Oncology Treatment, [address] [place] [address] Phone: tel: fax: Referral ID Status Reason Start Date Expiration Date V isits Requested Visits Authorized [id number] Authorized 04/30/2024 07/07/2024 [id number] Encounter Details Date Type Department Care Team (Latest Contact Info) Description 05/16/2024 10:00 AM EST Hem/Onc Treatment Hematology/Oncolog y Treatment, [address] [place] [address] [place], Chair 2 Hem Onc [address] [address] Malignant neoplasm of upper-outer quadrant of left [...] and class I obesity. Per review of CORNETIST documentation of 09/25/23, blood glucose values have [...] Recommend nutrition consult with RDN (Registered Dietitian Masonry Instructor). Lifestyle changes are also indicated including [...] and folate levels and referral to a kettle coordinator. If hemoglobin levels are below 8 g/dl, we recommend Maternal Medicine ultrasound for growth every 4 weeks after 24 weeks. Consider a blood transfusion if hemoglobin levels fall below 6 g/dL. ([employer] and Carding Machine Feeder Practice Bulletin Number 95, December,). Consider Venofer [...] money to get more. 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 Not on file [...] Nursing Notes * Ciara Boyce RN - 05/16/2024 2:36 PM EST Goals: [...] 05/29/2024 9:30 AM EST Laboratory Laboratory Scenery [facility] [address] [place], [place] [address] [place], Lab Scenery [address] [facility] [place], [place] [address] 05/29/2024 10:30 AM EST Hem/Onc Treatment Hematology/Oncology Treatment, [place] [address] [facility], [place] [address] [place], Chair 9 Hem Onc Scenery [address] [place], [place] [address] 06/05/2024 9:50 AM EST Laboratory Laboratory [facility] [address] [place], [place] [address] [place], Lab Scenery [address] [facility] [place], [place] [address] 06/05/2024 11:00 AM EST Hem/Onc Treatment Hematology/Oncology Treatment, [place] 200 [facility] [place], [place] [address] [place], Chair 6 Hem Onc Scenery [address] [place], [place] [address] 06/12/2024 10:00 AM EST Laboratory Laboratory [facility] [place] [address] [place], [place] [address] [place], Lab Scenery [address] [facility] [place] [address] 06/12/2024 11:00 AM EST Hem/Onc Treatment Hematology/Oncology Treatment, [place] [address] [facility], [place] [address] [place], Chair 6 Hem Onc Scenery [address] [place], [place] [address] 06/19/2024 9:00 AM EST Laboratory Laboratory Scenery [facility] [address] [place], [place] [address] [place], Lab Scenery [address] [facility] [place], [place] [address] 06/19/2024 9:30 AM EST Office Visit Hematology/Oncology [facility] [place] [address] [place] [phone] Em Ng MD [address] [place], [place] [address] [address] 06/19/2024 10:00 AM EST Hem/Onc Treatment [facility]ematology[facility]Oncology [facility], [place] [address] [facility] [address] [place], Chair 11 Hem Onc [facility] [address] [facility] [place] [address] 08/06/2024 9:00 AM EST Telemedicine Genetics HemOnc, [facility] [address] [place] [address] Estephania Reyes, MS [address] [place] [address] Health Maintenance Due Date Last [...] this encounter Medical Devices Implanted Type Area Production Miner Device Identifier Shelf Expiration Date Model / Serial / Lot Stent Kev 4fr 11cm - [id number] Implanted:Qty : 1 on 02/08/2024 by Jeffrey Kerr MD at OR [facility] [employer] [id number] 08/16/2028 [id number] / / [id number] Port Implant W8f Poly Cath - [id number] Implanted:Qty : 1 on 05/02/2024 by Iam Curry MD at OR [facility] Right: Chest CR BARD : PERIPHERAL VASCULAR [id number] 05/17/2025 [id number] / / [id number] documented as of this encounter Visit Diagnoses [...] ONCE, 1 dose, On Sun05/16/24 at 1315Indications:Jess hcristie neoplasm of upper-outer quadrant of left [...] mL documented in this encounter Care Teams Strand Forming Machine Operator Relationship Specialty Start Date End Date Malinda Owens CRNP [address] [place] [address] PCP - General Nurse Practitioner 09/20/23 documented as of this encounter
--- OUTSIDE RECORDS SUMMARY | 2024-09-05 14:39 | External Medical Summary | Summary of Care ---
Author Name Unknown Organization [facility] Address [address] [place] [address] Phone [phone] Care Team Providers Care Senior Android Software Engineer Name Role Phone Malinda Owens Primary Care Provider [phone] Reason for Visit * Reason Comments Chemotherapy [...] GA PACLITAXEL INJECTION GA INJ CYCLOPHOSPHAMD AUROMEDIC Em Ng MD [address] [facility] [place] [address] Phone: tel: fax: Hematology/Oncology Treatment, [address] [place] [address] Phone: tel: fax: Referral ID Status Reason Start Date Expiration Date V isits Requested Visits Authorized [id number] Authorized 04/30/2024 07/07/2024 [id number] Encounter Details Date Type Department Care Team (Latest Contact Info) Description 05/16/2024 10:00 AM EST Hem/Onc Treatment Hematology/Oncolog y Treatment, [address] [place] [address] [place], Chair 2 Hem Onc [address] [address] Malignant neoplasm of upper-outer quadrant of left [...] and class I obesity. Per review of REHABILITATION TEAM LEAD documentation of 09/25/23, blood glucose values have [...] Recommend nutrition consult with RDN (Registered Dietitian Activities Officer). Lifestyle changes are also indicated including [...] and folate levels and referral to a elementary summer school teacher. If hemoglobin levels are below 8 g/dl, we recommend Maternal Medicine ultrasound for growth every 4 weeks after 24 weeks. Consider a blood transfusion if hemoglobin levels fall below 6 g/dL. ([employer] and Dog [employer] Cat Food Cook Practice Bulletin Number 95, December,). Consider [...] money to get more. 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 Not [...] 05/29/2024 9:30 AM EST Laboratory Laboratory Scenery [facility] [address] [place], [place] [address] [place], Lab Scenery [address] [facility] [place], [place] [address] 05/29/2024 10:30 AM EST Hem/Onc Treatment Hematology/Oncology Treatment, [place] 200 [facility], [place] [address] [place], Chair 9 Hem Onc Scenery [address] [place], [place] [address] 06/05/2024 9:50 AM EST Laboratory Laboratory [facility] [address] [place], [place] [address] [place], Lab Scenery [address] [facility] [place], [place] [address] 06/05/2024 11:00 AM EST Hem/Onc Treatment Hematology/Oncology Treatment, [place] 200 [facility] [place], [place] [address] [place], Chair 6 Hem Onc Scenery [address] [place], [place] [address] 06/12/2024 10:00 AM EST Laboratory Laboratory [facility] [place] [address] [place], [place] [address] [place], Lab Scenery [address] [facility] [address] 06/12/2024 11:00 AM EST Hem/Onc Treatment Hematology/Oncology Treatment, [place] 200 [facility], [place] [address] [place], Chair 6 Hem Onc Scenery [address] [place], [place] [address] 06/19/2024 9:00 AM EST Laboratory Laboratory Scenery [facility] [address] [place], [place] [phone] [place], Lab Scenery 200 [facility] [place], [place] [address] 06/19/2024 9:30 AM EST Office Visit Hematology/Oncology [facility] [place] [address] [place] [phone] Em Ng MD [address] [place], [place] [address] [address] 06/19/2024 10:00 AM EST Hem/Onc Treatment Hematology[facility]Oncology Treatment, [place] [facility] [address] [place], Chair 11 Hem Onc [facility] 200 [facility] [place] [address] 08/06/2024 9:00 AM EST Telemedicine Genetics HemOnc, [facility] [address] [place] [address] Estephania Reyes, MS [address] [place] [address] Health Maintenance Due Date Last [...] this encounter Medical Devices Implanted Type Area Band Tier Device Identifier Shelf Expiration Date Model / Serial / Lot Stent Kev 4fr 11cm - [id number] Implanted:Qty : 1 on 02/08/2024 by Jeffrey Kerr MD at OR [facility] [employer] [id number] 08/16/2028 [id number] / / [id number] Port Implant W8f Poly Cath - [id number] Implanted:Qty : 1 on 05/02/2024 by Iam Curry MD at OR [facility] Right: Chest CR BARD : PERIPHERAL VASCULAR [id number] 05/17/2025 [id number] / / [id number] documented as of this encounter Visit Diagnoses [...] mL documented in this encounter Care Teams Senior Android Software Engineer Relationship Specialty Start Date End Date Malinda Owens CRNP [address] [place] [address] PCP - General Nurse Practitioner 09/20/23 documented as of this encounter
--- OUTSIDE RECORDS SUMMARY | 2024-09-05 14:39 | External Medical Summary | Summary of Care ---
Author Name Unknown Organization [facility] Address [address] [facility] [place] [address] Phone [phone] Care Team Providers Care Lunch Truck Driver Name Role Phone Malinda Owens Primary Care Provider [phone] Reason for Visit * Reason Comments Chemotherapy [...] [place] PACLITAXEL INJECTION VA INJ CYCLOPHOSPHAMD AUROMEDIC Em Ng MD [address] [facility] [place] [address] Phone: tel: fax: Hematology/Oncology Treatment, [address] [place] [address] Phone: tel: fax: Referral ID Status Reason Start Date Expiration Date V isits Requested Visits Authorized [id number] Authorized 04/30/2024 07/07/[phone] Encounter Details Date Type Department Care Team (Latest Contact Info) Description 05/16/2024 10:00 AM EST Hem/Onc Treatment Hematology/Oncolog y Treatment, [address] [place] [address] [place], Chair 2 Hem Onc [address] [address] Malignant neoplasm of upper-outer quadrant of left [...] in Current Health. Plans to bean picker meter from pharmacy today. Instructions provided [...] and class I obesity. Per review of HUMAN GEOGRAPHY INSTRUCTOR documentation of 09/25/23, blood glucose values [...] Recommend nutrition consult with RDN (Registered Dietitian Driver Merchandiser). Lifestyle changes are also indicated including optimizing [...] and folate levels and referral to a materials analyst. If hemoglobin levels are below 8 g/dl, we recommend Maternal Medicine ultrasound for growth every 4 weeks after 24 weeks. Consider a blood transfusion if hemoglobin levels fall below 6 g/dL. ([employer] and Mortgage Protection Sales Practice Bulletin Number 95, December,). Consider Venofer [...] money to get more. 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 Not on [...] AM EST Laboratory Laboratory Scenery [facility] [address] [place], [place] [address] [place], Lab Scenery [address] [facility] [place], [place] [address] 05/29/2024 10:30 AM EST Hem/Onc Treatment Hematology/Oncology Treatment, [place] 200 [facility], [place] [address] [place], Chair 9 Hem Onc Scenery [address] [place], [place] [address] 06/05/2024 9:50 AM EST Laboratory Laboratory [facility] [address] [place], [place] [address] [place], Lab Scenery [address] [facility] [place], [place] [address] 06/05/2024 11:00 AM EST Hem/Onc Treatment Hematology/Oncology Treatment, [place] [address] [facility] [place], [place] [address] [place], Chair 6 Hem Onc Scenery [address] [place], [place] [address] 06/12/2024 10:00 AM EST Laboratory Laboratory [facility] [place] [address] [place], [place] [address] [place], Lab Scenery [address] [place] [address] 06/12/2024 11:00 AM EST Hem/Onc Treatment Hematology/Oncology Treatment, [place] [address] [facility], [place] [address] [place], Chair 6 Hem Onc Scenery [address] [place], [place] [address] 06/19/2024 9:00 AM EST Laboratory Laboratory Scenery [facility] [address] [place], [place] [phone] [place], Lab Scenery 200 [facility] [place], [place] [address] 06/19/2024 9:30 AM EST Office Visit Hematology/Oncology [facility] [place] [address] [place] [phone] Em Ng MD [address] [place], [place] [address] [address] 06/19/2024 10:00 AM EST Hem/Onc Treatment Hematology[facility]Oncology [facility], [place] [facility] [address] [place], Chair 11 Hem Onc [facility] 200 [facility] [place] [address] 08/06/2024 9:00 AM EST Telemedicine Genetics HemOnc, [facility] [address] [place] [address] Estephania Reyes, MS [address] [place] [address] Health Maintenance Due Date Last [...] this encounter Medical Devices Implanted Type Area Weigh Machine Operator Device Identifier Shelf Expiration Date Model / Serial / Lot Stent Kev 4fr 11cm - [id number] Implanted:Qty : 1 on 02/08/2024 by Jeffrey Kerr MD at OR [facility] [employer] [id number] 08/16/2028 [id number] / / [id number] Port Implant W8f Poly Cath - [id number] Implanted:Qty : 1 on 05/02/2024 by Iam Curry MD at OR [facility] Right: Chest CR BARD : PERIPHERAL VASCULAR [id number] 05/17/2025 [id number] / / [id number] documented as of this encounter Visit Diagnoses [...] mL documented in this encounter Care Teams Lunch Truck Driver Relationship Specialty Start Date End Date Malinda Owens CRNP [address] [place] [address] PCP - General Nurse Practitioner 09/20/23 documented as of this encounter
--- OUTSIDE RECORDS SUMMARY | 2024-09-05 14:39 | External Medical Summary | Summary of Care ---
Author Name Unknown Organization [facility] Address [address] [facility] [place] [address] Phone [phone] Care Team Providers Care Rehabilitation Inspector Name Role Phone Malinda Owens Primary [...] INJ CYCLOPHOSPHAMD AUROMEDIC Em Ng MD [address] [facility] [place] [address] Phone: tel: fax: Hematology/Oncology Treatment, [address] [place] [address] Phone: tel: fax: Referral ID Status Reason Start Date Expiration Date V isits Requested Visits Authorized [id number] Authorized 04/30/2024 07/07/[phone] Encounter Details Date Type Department Care Team (Latest Contact Info) Description 05/16/2024 10:00 AM EST Hem/Onc Treatment Hematology/Oncolog y Treatment, [address] [place] [address] [place], Chair 2 Hem Onc [address] [address] Malignant neoplasm of upper-outer quadrant of left [...] and class I obesity. Per review of SCRIPT COORDINATOR documentation of 09/25/23, blood glucose values [...] nutrition consult with RDN (Registered Dietitian Live Truck Technician). Lifestyle changes are also indicated including [...] and folate levels and referral to a mixing roll operator. If hemoglobin levels are below 8 g/dl, we recommend Maternal Medicine ultrasound for growth every 4 weeks after 24 weeks. Consider a blood transfusion if hemoglobin levels fall below 6 g/dL. ([employer] Obstetricians and Detasseling Crew Supervisor Practice Bulletin Number 95, December,). Consider [...] money to get more. 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 on [...] 05/29/2024 9:30 AM EST Laboratory Laboratory Scenery [facility] [address] [place], [place] [address] [place], Lab Scenery [address] [facility] [place], [place] [address] 05/29/2024 10:30 AM EST Hem/Onc Treatment Hematology/Oncology Treatment, [place] 200 [facility], [place] [address] [place], Chair 9 Hem Onc Scenery [address] [place], [place] [address] 06/05/2024 9:50 AM EST Laboratory Laboratory [facility] [address] [place], [place] [address] [place], Lab Scenery [address] [facility] [place], [place] [address] 06/05/2024 11:00 AM EST Hem/Onc Treatment Hematology/Oncology Treatment, [place] [address] [facility] [place], [place] [address] [place], Chair 6 Hem Onc Scenery [address] [place], [place] [address] 06/12/2024 10:00 AM EST Laboratory Laboratory [facility] [place] [address] [place], [place] [address] [place], Lab Scenery [address] [facility] [place] [address] 06/12/2024 11:00 AM EST Hem/Onc Treatment Hematology/Oncology Treatment, [place] 200 [facility], [place] [address] [place], Chair 6 Hem Onc Scenery [address] [place], [place] [address] 06/19/2024 9:00 AM EST Laboratory Laboratory Scenery [facility] [address] [place], [place] [address] [place], Lab Scenery 200 [facility] [place], [place] [address] 06/19/2024 9:30 AM EST Office Visit Hematology/Oncology [facility] [place] [address] [place] [phone] Em Ng MD [address] [place], [place] [address] [phone] 06/19/2024 10:00 AM EST Hem/Onc Treatment Hematology/Oncology Treatment, [place] [address] [facility] [address] [place], Chair 11 Hem Onc [facility] 200 [facility] [place] [address] 08/06/2024 9:00 AM EST Telemedicine Genetics [facility]c, [facility] [address] [place] [address] Estephania Reyes, MS [address] [place] [address] Health Maintenance Due Date Last [...] this encounter Medical Devices Implanted Type Area Freight Manager Device Identifier Shelf Expiration Date Model / Serial / Lot Stent Kev 4fr 11cm - [id number] Implanted:Qty : 1 on 02/08/2024 by Jeffrey Kerr MD at OR [facility] Intent [id number] 08/16/2028 [id number] / / [id number] Port Implant W8f Poly Cath - [id number] Implanted:Qty : 1 on 05/02/2024 by Iam Curry MD at OR [facility] Right: Chest CR BARD : PERIPHERAL VASCULAR [id number] 05/17/2025 [id number] / / [id number] documented as of this encounter Visit Diagnoses [...] mL documented in this encounter Care Teams Rehabilitation Inspector Relationship Specialty Start Date End Date Malinda Owens CRNP [address] [place] [address] PCP - General Nurse Practitioner 09/20/23 documented as of this encounter
--- OUTSIDE RECORDS SUMMARY | 2024-09-05 14:39 | External Medical Summary | Summary of Care ---
Author Name Unknown Organization [facility] Address [address] [place] [address] Phone [phone] Care Team Providers Care Office Messenger Name Role Phone Malinda Owens Primary Care [...] FULPHIL[place] PACLITAXEL INJECTION [place] INJ CYCLOPHOSPHAMD AUROMEDIC Em Ng MD [address] [facility] [place] [address] Phone: tel: fax: Hematology/Oncology Treatment, [address] [place] [address] Phone: tel: fax: Referral ID Status Reason Start Date Expiration Date V isits Requested Visits Authorized [id number] Authorized 04/30/2024 07/07/[phone] Encounter Details Date Type Department Care Team (Latest Contact Info) Description 05/16/2024 10:00 AM EST Hem/Onc Treatment Hematology/Oncolog y Treatment, [address] [place] [address] [place], Chair 2 Hem Onc [address] [address] Malignant neoplasm of upper-outer quadrant of left [...] in Current Health. Plans to pick up man meter from pharmacy today. [...] and class I obesity. Per review of PROTECTIVE SIGNAL OPERATIONS SUPERVISOR documentation of 09/25/23, blood glucose values [...] Recommend nutrition consult with RDN (Registered Dietitian Sewer System Supervisor). Lifestyle changes are also indicated including [...] and folate levels and referral to a medical instrument cable fabricator. If hemoglobin levels are below 8 g/dl, we recommend Maternal Medicine ultrasound for growth every 4 weeks after 24 weeks. Consider a blood transfusion if hemoglobin levels fall below 6 g/dL. ([employer]st[employer]ians and Machine Bobbin Winder Practice Bulletin Number 95, December,). Consider Venofer [...] money to get more. 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 on file [...] 05/29/2024 9:30 AM EST Laboratory Laboratory Scenery [facility] [address] [place], [place] [address] [place], Lab Scenery [address] [facility] [place], [place] [address] 05/29/2024 10:30 AM EST Hem/Onc Treatment Hematology/Oncology Treatment, [place] 200 [facility], [place] [address] [place], Chair 9 Hem Onc Scenery [address] [place], [place] [address] 06/05/2024 9:50 AM EST Laboratory Laboratory [facility] [address] [place], [place] [address] [place], Lab Scenery [address] [facility] [place], [place] [address] 06/05/2024 11:00 AM EST Hem/Onc Treatment Hematology/Oncology Treatment, [place] 200 [facility] [place], [place] [address] [place], Chair 6 Hem Onc Scenery [address] [place], [place] [address] 06/12/2024 10:00 AM EST Laboratory Laboratory [facility] [place] [place] [address] [place], [place] [address] [place], Lab Scenery [address] [facility] [address] 06/12/2024 11:00 AM EST Hem/Onc Treatment Hematology/Oncology Treatment, [place] 200 [facility], [place] [address] [place], Chair 6 Hem Onc Scenery [address] [place], [place] [address] 06/19/2024 9:00 AM EST Laboratory Laboratory Scenery [facility] [address] [place], [place] [address] [place], Lab Scenery 200 [facility] [place], [place] [address] 06/19/2024 9:30 AM EST Office Visit Hematology/Oncology [facility] [place] [address] [place] [phone] Em Ng MD [address] [place], [place] [address] [address] 06/19/2024 10:00 AM EST Hem/Onc Treatment Hematology/Oncology Treatment, [place] [facility] [address] [place], Chair 11 Hem Onc [facility] 200 [facility] [place] [address] 08/06/2024 9:00 AM EST Telemedicine Genetics [facility]c, [facility] [address] [place] [address] Estephania Reyes, MS [address] [place] [address] Health Maintenance Due Date Last [...] this encounter Medical Devices Implanted Type Area Outdoor Studies Professor Device Identifier Shelf Expiration Date Model / Serial / Lot Stent Kev 4fr 11cm - [id number] Implanted:Qty : 1 on 02/08/2024 by Jeffrey Kerr MD at OR [facility] [employer] [id number] 08/16/2028 6546 / / [id number] Port Implant W8f Poly Cath - [id number] Implanted:Qty : 1 on 05/02/2024 by Iam Curry MD at OR [facility] Right: Chest CR BARD : PERIPHERAL VASCULAR [id number] 05/17/2025 [id number] / / [id number] documented as of this encounter Visit Diagnoses [...] mL documented in this encounter Care Teams Office Messenger Relationship Specialty Start Date End Date Malinda Owens CRNP [address] [place] [address] PCP - General Nurse Practitioner 09/20/23 documented as of this encounter
--- OUTSIDE RECORDS SUMMARY | 2024-09-05 14:40 | External Medical Summary ---
Author Name Unknown Address Unknown Organization K09:[facility] [place] [address] Laboratory Report Ordering Provider Test Date Status LISE JAVIER 05/22/2024 09:11:48 Final Observation Date Value Abnormality Reference (Units ) Status SYNC LEUKOCYTES IN BLOOD BY AUTOMATED COUNT 05/22/2024 09:11:48 5.15 4.00-10.80 (K/uL) Final Segs 05/22/2024 09:11:48 44.5 40.0-75.0 (%) Final Lymphs % 05/22/2024 09:11:48 39.0 18.0-42.0 (%) Final Monos 05/22/2024 09:11:48 9.7 1.0-11.0 (%) Final Eosinophils 05/22/2024 09:11:48 6.2 Above high normal 0.0-6.0 (%) Final Basos 05/22/2024 09:11:48 0.6 0.0-2.0 (%) Final Absolute Segs 05/22/2024 09:11:48 2.29 1.80-7.70 (K/uL) Final Lymphs, absolute 05/22/2024 09:11:48 2.01 1.00-4.80 (K/ul) Final Monos, Abs 05/22/2024 09:11:48 0.50 0.00-1.10 (K/uL) Final Eos, Abs 05/22/2024 09:11:48 0.32 0.00-0.70 (K/uL) Final Basos, Abs 05/22/2024 09:11:48 0.03 0.00-0.20 (K/uL) Final Performing Location [facility] [place] [address]
--- OUTSIDE RECORDS SUMMARY | 2024-09-05 14:40 | External Medical Summary ---
Author Name Unknown Address Unknown Organization K01:[facility] - [address] [place] [address] Laboratory Report Ordering Provider Test Date Status LISE JAVEIR 05/22/2024 09:11:48 Final Observation Date Value Abnormality Reference (Units ) Status TSH 05/22/2024 09:11:48 3.19 0.27-4.20 (uIU/mL) Final Performing Location [facility] [address] [facility] [address]
--- OUTSIDE RECORDS SUMMARY | 2024-09-05 14:40 | External Medical Summary ---
Author Name Unknown Address Unknown Organization K09:[facility] [place] [place] [address] Laboratory Report Ordering Provider Test Date Status LISE JAVIER 05/22/2024 09:11:48 Final Observation Date Value Abnormality Reference (Units ) Status BUN 05/22/2024 09:11:48 14 6-20 (mg/dL) Final Creatinine 05/22/2024 09:11:48 1.0 0.5-1.0 (mg/dL) Final Glomerular filtration rate/1.73 sq M.predicted [Volume Rate/Area] in Serum, Plasma or Blood by Creatinine-based formula (CKD-EPI) 05/22/2024 09:11:48 83 >=60 (mL/min) Final eGFR is calculated based on the CKD-EPI 2020 equation. Sodium 05/22/2024 09:11:48 140 135-146 (m mol/L) Final Potassium 05/22/2024 09:11:48 4.5 3.5-5.1 (m mol/L) Final Cl 05/22/2024 09:11:48 105 98-107 (mm ol/L) Final CO2 05/22/2024 09:11:48 20 Below low normal 22- 32 (mmol/L) Final Anion gap 05/22/2024 09:11:48 15 7-15 (mmol /L) Final Glucose 05/22/2024 09:11:48 111 70-120 (mg /dL) Final Albumin 05/22/2024 09:11:48 4.7 3.8-5.0 (g /dL) Final AST (Aspartate aminotransferase) 05/22/2024 09:11:48 19 10-35 (U/L) Fin al Alk Phos 05/22/2024 09:11:48 100 35-130 (U/ L) Final Bilirubin, Total 05/22/2024 09:11:48 0.5 <=1 .2 (mg/dL) Final Calcium 05/22/2024 09:11:48 9.6 8.4-10.2 ( mg/dL) Final Protein 05/22/2024 09:11:48 7.9 6.0-8.3 (g /dL) Final ALT (Alanine aminotransferase) 05/22/2024 09:11:48 18 10-35 (U/L) [place] [email or web address] Performing Location [facility] [address] [place] [address]
--- OUTSIDE RECORDS SUMMARY | 2024-09-05 14:40 | External Medical Summary ---
Author Name Unknown Address Unknown Organization K09:[facility] [place] [address] Laboratory Report Ordering Provider Test Date Status LISE JAVIER 05/22/2024 09:11:48 Final Observation Date Value Abnormality Reference (Units ) Status Screen, Urine 05/22/2024 09:11:48 Negative Negative Final Performing Location [facility] [place] [address]
--- OUTSIDE RECORDS SUMMARY | 2024-09-05 14:40 | External Medical Summary | Summary of Care ---
Author Name Unknown Organization [facility] Address [address] [place] [address] Phone [phone] Care Team Providers Care It Program Engagement Director Name Role Phone Malinda Owens Primary Care Provider [phone] Encounter Details Date Type Department Care Team (Late st Contact Info) Description 05/22/2024 Orders Only Hematology/Oncology [facility] [place] [address] [place] [address] Gabby Zavala CRNP [address] [place] [address] Allergies No known active allergiesdocumented as of this encounter (statuses as of 05/22/2024) Medications 29-1 MG Oral Tablet Chewable Take [...] as of this encounter (statuses as of 05/22/2024) Active Problems Problem Noted Date Diagnosed Date [...] Enrolled in Current Health. Plans to poultry picker meter from pharmacy today. Instructions provided [...] and class I obesity. Per review of [facility] documentation of 09/25/23, blood glucose values have [...] Recommend nutrition consult with RDN (Registered Dietitian Stock Worker And Deliverer). Lifestyle changes are also indicated including optimizing [...] and folate levels and referral to a seamless tube roller. If hemoglobin levels are below 8 g/dl, we recommend Maternal Medicine ultrasound for growth every 4 weeks after 24 weeks. Consider a blood transfusion if hemoglobin levels fall below 6 g/dL. ([employer] and Volunteer Services Coordinator Practice Bulletin Number 95, December,). Consider [...] as of this encounter (statuses as of 05/22/2024) Resolved Problems Problem Noted Date Diagnosed Date Resolved Date Abnormal glucose tolerance i n mother complicating 04/19/2023 08/31/2023 Overview (04/19/2023): Failed early glucola. 3hr GTT ordered documented as of this encounter (statuses as of 05/22/2024) Immunizations Name Administration Dates Next Due DTP [...] money to get more. Never true 03/26/2024 [place] Depression Scale Answer Date Recorded [place] Depression Scale Total 6 12/11/2023 The thought [...] No 03/26/2024 Does the household have a [facility] source of income? 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 [address] Estephania Reyes Sharri, MS [address] [place] [address] Health Maintenance Due Date Last [...] this encounter Medical Devices Implanted Type Area Health Education Assistant Device Identifier Shelf Expiration Date Model / Serial / Lot Stent Angulo 4fr 11cm - [id number] Implanted:Qty : 1 on 02/08/2024 by Jeffrey Kerr MD at OR [facility] [employer] [id number] 08/16/2028 [id number] / / [id number] Port Implant W8f Poly Cath - [id number] Implanted:Qty : 1 on 05/02/2024 by Iam Curry MD at [facility] Right: Chest CR BARD : PERIPHERAL VASCULAR [id number] 05/17/2025 [id number] / / [id number] documented as of this encounter Care Teams It Program Engagement Director Relationship Specialty Start Date End Date Malinda Owens CRNP [address] [place] [address] PCP - General Nurse Practitioner 09/20/23 documented as of this encounter
--- OUTSIDE RECORDS SUMMARY | 2024-09-05 14:40 | External Medical Summary | Summary of Care ---
Author Name Unknown Organization [facility] Address [address] [facility] [place] [address] Phone [phone] Care Team Providers Care Lumber Straightener Name Role Phone Malinda Owens AD Primary Care Provider [phone] Reason for Visit * Reason Onset Date Comments Forms Request 05/16/2024 FMLA Encounter Details Date Type Department Care Team (Late st Contact Info) Description 05/16/2024 Telephone Hematology/Oncology [facility] [place] [facility] [address] Em Ng MD 400 [facility] [place] [address] Forms Request ([facility] ) Allergies No known active allergiesdocumented as of this encounter (statuses as of 05/19/2024) Medications -1 MG Oral Tablet Chewable Take by [...] as of this encounter (statuses as of 05/19/2024) Active Problems Problem Noted Date Diagnosed Date [...] in Current Health. Plans to pick up operator meter from pharmacy today. Instructions provided [...] and class I obesity. Per review of [facility]NS documentation of 09/25/23, blood glucose values have [...] nutrition consult with RDN (Registered Dietitian Supervisor Heading). Lifestyle changes are also indicated including optimizing [...] and folate levels and referral to a buffet manager. If hemoglobin levels are below 8 g/dl, we recommend Maternal Medicine ultrasound for growth every 4 weeks after 24 weeks. Consider a blood transfusion if hemoglobin levels fall below 6 g/dL. ([employer] and Y[employer] Weight And Strength Tester Practice Bulletin Number 95, December,). Consider [...] as of this encounter (statuses as of 05/19/2024) Resolved Problems Problem Noted Date Diagnosed Date Resolved Date Abnormal glucose tolerance i n mother complicating 04/19/2023 08/31/2023 Overview (04/19/2023): Failed early glucola. 3hr GTT ordered documented as of this encounter (statuses as of 05/19/2024) Immunizations Name Administration Dates Next Due DTP [...] money to get more. 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 * Telephone Encounter - Yvrose Capps LPN - 05/16/2024 11:31 AM EST Patient here for treatment today, dropped two forms for her Zion and other family memberEli Gutierrez. Spoke with patient, made her aware of FMLA form policy. Also informed patient provider will not be in the office Sunday05/20/2024, explained once the forms are completed will makeher aware. She verbalized understanding and is requesting to pick up operator the forms once completed. documented in this encounter Plan of Treatment Upcoming Encounters Date Type Department Care Team (Late st Contact Info) Description 05/22/2024 9:10 AM EST Laboratory Laboratory [facility] [place] [address] [place] [phone] [place], Lab [facility] 200 [facility] [place] [address] 05/22/2024 9:30 AM EST Office Visit Hematology/Oncology [facility] [place] 200 [facility] [place] [address] Gabby Zavala CRNP [address] [place] [address] 05/22/2024 10:00 AM EST Hem/Onc Treatment Hematology/Oncology [address], [place] [address] [place], Chair [address] Hem On[address] [place] [address] 05/29/2024 9:30 AM EST Laboratory Laboratory [facility] [place] 200 [facility] [place] [phone] [place], Lab [facility] 200 [facility] [place], [place] [address] 05/29/2024 10:30 AM EST Hem[facility] [phone] [place], Chair 9 Hem Onc Scenery 200 [facility] [place] [address] 08/06/2024 9:00 AM EST Telemedicine Genetics HemOnc, [address] [address] ReyesEstephania hernandez, MS [address] [place] [address] Health Maintenance Due Date Last [...] this encounter Medical Devices Implanted Type Area Storage Battery Inspector Device Identifier Shelf Expiration Date Model / Serial / Lot Stent Angulo 4fr 11cm - [id number] Implanted:Qty : 1 on 02/08/2024 by Jeffrey Kerr MD at OR [facility] [employer] [id number] 08/16/2028 [id number] / / [id number] Port Implant W8f Poly Cath - [id number] Implanted:Qty : 1 on 05/02/2024 by Iam Curry MD at OR [facility] Right: Chest CR BARD : PERIPHERAL VASCULAR [id number] 05/17/2025 [id number] / / [id number] documented as of this encounter Care Teams Lumber Straightener Relationship Specialty Start Date End Date Malinda Owens CRNP [address] [place] [address] PCP - General Nurse Practitioner 09/20/23 documented as of this encounter
--- OUTSIDE RECORDS SUMMARY | 2024-09-05 14:40 | External Medical Summary | Summary of Care ---
Author Name Unknown Organization [facility] Address [address] [facility] [place] [address] Phone [phone] Care Team Providers Care Lining Cementer Name Role Phone Malinda Owens AD Primary Care Provider [phone] Reason for Visit * Reason Onset Date Comments Forms Request 05/16/2024 FMLA Encounter Details Date Type Department Care Team (Late st Contact Info) Description 05/16/2024 Telephone Hematology/Oncology [facility] [place] 200 [facility] [address] Em Ng MD 400 [facility] [place] [phone] Forms Request ([facility] ) Allergies No known active allergiesdocumented as of this encounter (statuses as of 05/16/2024) Medications -1 MG Oral Tablet Chewable Take [...] as of this encounter (statuses as of 05/16/2024) Active Problems Problem Noted Date Diagnosed Date [...] in Current Health. Plans to machine operator picker meter from pharmacy today. Instructions provided [...] and class I obesity. Per review of RECORDING STUDIO SETUP WORKER documentation of 09/25/23, blood glucose values [...] Recommend nutrition consult with RDN (Registered Dietitian Assistant Designer). Lifestyle changes are also indicated including [...] and folate levels and referral to a warp knitting machine operator. If hemoglobin levels are below 8 g/dl, we recommend Maternal Medicine ultrasound for growth every 4 weeks after 24 weeks. Consider a blood transfusion if hemoglobin levels fall below 6 g/dL. ([employer] and Skimmer Reverberatory Practice Bulletin Number 95, December,). Consider Venofer [...] as of this encounter (statuses as of 05/16/2024) Resolved Problems Problem Noted Date Diagnosed Date Resolved Date Abnormal glucose tolerance i n mother complicating 04/19/2023 08/31/2023 Overview (04/19/2023): Failed early glucola. 3hr GTT ordered documented as of this encounter (statuses as of 05/16/2024) Immunizations Name Administration Dates Next Due DTP [...] money to get more. 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 Spoke with patient, made her aware of [facility] form policy. Also informed patient provider will not be in the office Sunday05/20/2024, explained once the forms are completed will makeher aware. She verbalized understanding and is requesting to machine operator picker the forms once completed. documented in this encounter Plan of Treatment Upcoming Encounters Date Type Department Care Team (Late st Contact Info) Description 05/22/2024 9:10 AM EST Laboratory Laboratory [facility] [place] [address] [place] [phone] [place], Lab [address] [facility] [place] [address] 05/22/2024 9:30 AM EST Office Visit Hematology/Oncology [facility] [place] [address] [place] [address] Gabby Zavala CRNP 400 [place] [address] 05/22/2024 10:00 AM EST Hem[facility] [address] [place], Chair 4 Hem Onc Scenery [address] [place] [address] 05/29/2024 9:30 AM EST Laboratory [facility] [place] [address] [place] [address] [place], Lab Scenery [address] [place] [address] 05/29/2024 10:30 AM EST Hem/Onc Treatment Hematology/Oncology Treatment, [place] 200 [facility] [phone] [place], Chair 9 Hem Onc Scenery [address] [place], [place] [address] 08/06/2024 9:00 AM EST Telemedicine Genetics HemOnc, [facility] [address] [place] [address] Estephania Reyes, MS [address] [place] [address] Health Maintenance Due Date Last [...] this encounter Medical Devices Implanted Type Area Lead Nuclear Medicine Technologist Device Identifier Shelf Expiration Date Model / Serial / Lot Stent Angulo 4fr 11cm - [id number] Implanted:Qty : 1 on 02/08/2024 by Jeffrey Kerr MD at OR [facility] Dhe[employer] Bolo [id number] 08/16/2028 [id number] / / [id number] Port Implant W8f Poly Cath - [id number] Implanted:Qty : 1 on 05/02/2024 by Iam Curry MD at OR [facility] Right: Chest CR BARD : PERIPHERAL VASCULAR [id number] 05/17/2025 [id number] / / [id number] documented as of this encounter Care Teams Lining Cementer Relationship Specialty Start Date End Date Malinda Owens CRNP [address] [place] [address] PCP - General Nurse Practitioner 09/20/23 documented as of this encounter
--- OUTSIDE RECORDS SUMMARY | 2024-09-05 14:40 | External Medical Summary ---
Author Name Unknown Address Unknown Organization K09:[facility] [place] [address] Laboratory Report Ordering Provider Test Date Status LISE JAVIER 05/22/2024 09:11:48 Final Observation Date Value Abnormality Reference (Units ) Status WBC, Total 05/22/2024 09:11:48 5.15 4.00-10.8 0 (K/uL) Final RBC 05/22/2024 09:11:48 4.08 3.85-5.15 (M/uL) Final Hemoglobin 05/22/2024 09:11:48 12.9 12.0-15.3 (g/dL) Final HCT 05/22/2024 09:11:48 39.8 36.0-45.2 (%) Final MCV 05/22/2024 09:11:48 97.5 81.5-97.5 (fL) Final MCH 05/22/2024 09:11:48 31.6 27.0-34.0 (pg) Final MCHC 05/22/2024 09:11:48 32.4 32.0-36.0 (g/dL) Final RDW 05/22/2024 09:11:48 12.2 11.5-15.5 (%) Final Platelets 05/22/2024 09:11:48 244 140-400 (K /uL) Final MPV 05/22/2024 09:11:48 10.0 6.6-11.1 ( fL) Final Performing Location [facility] [address]
--- OUTSIDE RECORDS SUMMARY | 2024-09-05 14:40 | External Medical Summary | Summary of Care ---
Author Name Unknown Organization [facility] Address [address] [facility] [place] [address] Phone [phone] Care Team Providers Care Grounds Manager Name Role Phone Malinda Owens AD Primary Care Provider [phone] Reason for Visit * Reason Onset Date Comments Forms Request 05/16/2024 FMLA Encounter Details Date Type Department Care Team (Late st Contact Info) Description 05/16/2024 Telephone Hematology/Oncology [facility] [place] 200 [facility] [address] Em Ng MD 400 [facility] [place] [phone] Forms Request ([facility] ) Allergies No known active allergiesdocumented as of this encounter (statuses as of 05/20/2024) Medications -1 MG Oral Tablet Chewable Take [...] as of this encounter (statuses as of 05/20/2024) Active Problems Problem Noted Date Diagnosed Date [...] and class I obesity. Per review of INDEPENDENT BEAUTY CONSULTANT documentation of 09/25/23, blood glucose values [...] Recommend nutrition consult with RDN (Registered Dietitian Ironing Machine Operator). Lifestyle changes are also indicated [...] and folate levels and referral to a videogame designer. If hemoglobin levels are below 8 g/dl, we recommend Maternal Medicine ultrasound for growth every 4 weeks after 24 weeks. Consider a blood transfusion if hemoglobin levels fall below 6 g/dL. ([employer] and Talking Books Library Clerk Practice Bulletin Number 95, December,). Consider [...] as of this encounter (statuses as of 05/20/2024) Resolved Problems Problem Noted Date Diagnosed Date Resolved Date Abnormal glucose tolerance i n mother complicating 04/19/2023 08/31/2023 Overview (04/19/2023): Failed early glucola. 3hr GTT ordered documented as of this encounter (statuses as of 05/20/2024) Immunizations Name Administration Dates Next Due DTP [...] money to get more. 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 Will place out at front end mechanic once scanned into chart. The Form for patient's Alessio, faxed to [employer] at [phone], confirmation page will be scanned in with form into chart. Left message on patient's voicemail, return phone number provided. My G sent. * Telephone Encounter - [...] verbalized understanding and is requesting to pick and shovel man the forms once completed. documented in this encounter Plan of Treatment Upcoming Encounters Date Type Department Care Team (Late st Contact Info) Description 05/22/2024 9:10 AM EST Laboratory Laboratory [facility] 200 [facility] [place] [phone] [place], Lab [address] [place] [address] 05/22/2024 9:30 AM EST Office Visit Hematology/Oncology [facility] [address] [place] [phone] Gabby Zavala CRNP [address] [place], [place] [address] [address] 05/22/2024 10:00 AM EST Hem/Onc Treatment Hematology/Oncology Treatment, [place] [address] [facility] [address] [place] [phone] [place], Chair 4 Hem Onc [address] [place] [address] 05/29/2024 9:30 AM EST Laboratory Laboratory [facility] [place] [address] [address] [place], [place] [address] Khris Amato Scenery [address] [place], [place] [address] 05/29/2024 10:30 AM EST Hem/Onc Treatment Hematology/Oncology Treatment, [place] [address] [place], [place] [address] [place], Chair 9 Hem Onc Scenery [address] [place], [place] [address] 08/06/2024 9:00 AM EST Telemedicine Genetics [facility], [facility] [address] [place] [address] Estephania Reyes, MS [address] [place] [address] Health Maintenance Due Date Last [...] this encounter Medical Devices Implanted Type Area Auditing Control Clerk Device Identifier Shelf Expiration Date Model / Serial / Lot Stent Kev 4fr 11cm - [id number] Implanted:Qty : 1 on 02/08/2024 by Jeffrey Kerr MD at OR [facility] [employer] [id number] 08/16/2028 [id number] / / [id number] Port Implant W8f Poly Cath - [id number] Implanted:Qty : 1 on 05/02/2024 by Iam Curry MD at OR [facility] Right: Chest CR BARD : PERIPHERAL VASCULAR [id number] 05/17/2025 [id number] / / [id number] documented as of this encounter Care Teams Grounds Manager Relationship Specialty Start Date End Date Malinda Owens CRNP [address] [place] [address] PCP - General Nurse Practitioner 09/20/23 documented as of this encounter
--- OUTSIDE RECORDS SUMMARY | 2024-09-05 14:40 | External Medical Summary | Summary of Care ---
Author Name Unknown Organization [facility] Address [address] [facility] [place] [address] Phone [phone] Care Team Providers Care Endoscopy Support Specialist Name Role Phone Malinda Owens AD Primary Care Provider [phone] Reason for Visit * Reason Onset Date Comments Forms Request 05/16/2024 FMLA Encounter Details Date Type Department Care Team (Late st Contact Info) Description 05/16/2024 Telephone Hematology/Oncology [facility] 200 [facility] [address] Em Ng MD 400 [facility] [place] [phone] Forms Request ([facility] ) Allergies No known active allergiesdocumented [...] Enrolled in Current Health. Plans to pickle solution maker meter from pharmacy today. Instructions [...] class I obesity. Per review of NURSING DEPARTMENT CHAIRPERSON documentation of 09/25/23, blood glucose values have [...] Recommend nutrition consult with RDN (Registered Dietitian Dinkey Operator Slag). Lifestyle changes are also indicated including optimizing [...] folate levels and referral to a director career services. If hemoglobin levels are below 8 g/dl, we recommend Maternal Medicine ultrasound for growth every 4 weeks after 24 weeks. Consider a blood transfusion if hemoglobin levels fall below 6 g/dL. ([employer] Executive Practice Bulletin Number 95, December,). Consider Venofer [...] money to get more. 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 documented in this encounter Plan of Treatment Upcoming Encounters Date Type Department Care Team (Late st Contact Info) Description 05/22/2024 9:10 AM EST Laboratory Laboratory [facility] [place] [address] [place] [phone] [place], Lab [facility] 200 [facility] [place] [address] 05/22/2024 9:30 AM EST Office Visit Hematology/Oncology [facility] 200 [facility] [place] [address] Gabby Zavala CRNP [address] [place] [address] 05/22/2024 10:00 AM EST Hem/Onc Treatment Hematology/Oncology [address], [place] [address] [place], Chair 4 Hem Onc [address] [place] [address] 05/29/2024 9:30 AM EST Laboratory Laboratory [facility] 200 [facility] [place] [phone] [place], Lab [facility] 200 [facility] [place], [place] [address] 05/29/2024 10:30 AM EST Hem[facility]c [facility] [address] [facility] [phone] [place], Chair 9 Hem Onc Scenery 200 [facility] [place] [address] 08/06/2024 9:00 AM EST Telemedicine Genetics HemOnc, [address] [address] ReyesEstephania hernandez, MS [address] [place] [address] Health Maintenance Due Date Last [...] this encounter Medical Devices Implanted Type Area Centrifugal Separator Device Identifier Shelf Expiration Date Model / Serial / Lot Stent Angulo 4fr 11cm - [id number] Implanted:Qty : 1 on 02/08/2024 by Jeffrey Kerr MD at OR [facility] [employer] [id number] 08/16/2028 [id number] / / [id number] Port Implant W8f Poly Cath - [id number] Implanted:Qty : 1 on 05/02/2024 by Iam Curry MD at OR [facility] Right: Chest CR BARD : PERIPHERAL VASCULAR [id number] 05/17/2025 [id number] / / [id number] documented as of this encounter Care Teams Endoscopy Support Specialist Relationship Specialty Start Date End Date Malinda Owens CRNP [address] [place] [address] PCP - General Nurse Practitioner 09/20/23 documented as of this encounter
--- OUTSIDE RECORDS SUMMARY | 2024-09-05 14:40 | External Medical Summary | Summary of Care ---
Author Name Unknown Organization [facility] Address [address] [place] [address] Phone [phone] Care Team Providers Care Business Development Agent Name Role Phone Malinda Owens Primary Care Provider [phone] Reason for Visit * Reason Comments Chemotherapy [...] MT PACLITAXEL INJECTION MT INJ CYCLOPHOSPHAMD AUROMEDIC Em Ng MD [address] [facility] [place] [address] Phone: tel: fax: Hematology/Oncology Treatment, [address] [place] [address] Phone: tel: fax: Referral ID Status Reason Start Date Expiration Date V isits Requested Visits Authorized [id number] Authorized 04/30/2024 07/07/2024 [id number] Encounter Details Date Type Department Care Team (Latest Contact Info) Description 05/16/2024 10:00 AM EST Hem/Onc Treatment Hematology/Oncolog y Treatment, [address] [place] [address] [place], Chair 2 Hem Onc [address] [address] Malignant neoplasm of upper-outer quadrant of left breast in female, estrogen receptor negative (HCC)*; Encounter for antineoplastic chemotherapy; Encounter for prevention of neutropenia due to chemotherapy; Encounter for fertility preservation procedure; Suppression of ovarian secretion Allergies No known active allergiesdocumented as of this encounter (statuses as of 05/16/2024) Medications 29-1 MG Oral Tablet Chewable Take [...] and class I obesity. Per review of HISTORY FACULTY MEMBER documentation of 09/25/23, blood glucose values [...] Recommend nutrition consult with RDN (Registered Dietitian Tub Wash Operator). Lifestyle changes are also indicated including [...] and folate levels and referral to a bee rancher. If hemoglobin levels are below 8 g/dl, we recommend Maternal Medicine ultrasound for growth every 4 weeks after 24 weeks. Consider a blood transfusion if hemoglobin levels fall below 6 g/dL. ([employer] [facility] [employer] Practice Bulletin Number 95, December,). Consider [...] money to get more. 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 Not on file [...] Description 05/22/2024 9:10 AM EST Laboratory Laboratory [facility] [place] [address] [place] [phone] [place], Lab [facility] [address] [facility] [place] [address] 05/22/2024 9:30 AM EST Office Visit Hematology/Oncology [facility] [place] [address] [place] [address] Gabby Zavala CRNP [address] [facility] [place] [address] 05/22/2024 10:00 AM EST Hem/Onc Treatment [facility], [place] [facility] [address] [place], Chair 4 Hem Onc Scenery 200 [facility] [place] [address] 05/29/2024 9:30 AM EST Laboratory Laboratory [facility] [place] [address] [place] [address] [place], Lab [facility] 200 [facility] [place], [place] [address] 05/29/2024 10:30 AM EST Hem/Onc Treatment Hematology/Oncology [address] [address] [place], Chair 9 Hem Onc Scenery 200 [facility] [place], [place] [address] 08/06/2024 9:00 AM EST Telemedicine Genetics HemOnc, [facility] [address] [place] [address] Estephania Reyes, [place] [address] [place] [address] Health Maintenance Due Date Last [...] this encounter Medical Devices Implanted Type Area Bulk Sealer Device Identifier Shelf Expiration Date Model / Serial / Lot Stent Angulo 4fr 11cm - [id number] Implanted:Qty : 1 on 02/08/2024 by Jeffrey Kerr MD at OR [facility] [employer] [id number] 08/16/2028 [id number] / / [id number] Port Implant W8f Poly Cath - [id number] Implanted:Qty : 1 on 05/02/2024 by Iam Curry MD at OR [facility] Right: Chest CR BARD : PERIPHERAL VASCULAR [id number] 05/17/2025 [id number] / / [id number] documented as of this encounter Visit Diagnoses [...] ONCE PRN Other, Hypersensitivity Reaction, Starting on Sun05/16/24 at 1001, Until 05/17/24 at 1000, For 24 hoursIndications:Malignant neoplasm of upper-outer quadrant of left breast in female, estrogen receptor negative (HCC),Encounter for antineoplastic chemotherapy,Encounter for prevention of neutropenia due to chemotherapy EPINEPHrine 1 MG/ML inj 0.3 mg 0.3 mg, Intramuscular, ONCE PRN Other, Hypersensitivity Reaction or Anaphylaxis, Starting on Sun05/16/24 at 1001, Until 05/17/24 at 1000, For 24 hoursIndications:Malignant neoplasm of upper-outer quadrant of left breast in female, estrogen receptor negative (HCC),Encounter for antineoplastic chemotherapy,Encounter for prevention of neutropenia due to chemotherapy hEParin 100 UNIT/ML Lock Flush inj 500 Units 500 Units (5 mL), IV Lock, PRN Other, IV Flush, Starting on Sun05/16/24 at 1001, Until 05/17/24 at 1000, For 24 hours, Do not flush if lock, PICC, or central line not in place; IV infusing or unable to flush.Indications:Malignant neoplasm of upper-outer quadrant of left breast in female, estrogen receptor negative (HCC),Encounter for antineoplastic chemotherapy,Encounter for prevention of neutropenia due to chemotherapy Given 05/16/2024 12:25 PM EST 500 Units Hydrocortisone Sod Suc (PF) (Solu-Cortef) inj 100 mg 100 mg, IV Push, ONCE PRN Other, Hypersensitivity Reaction, Starting on Sun05/16/24 at 1001, Until 05/17/24 at 1000, For 24 hoursIndications:Malignant neoplasm of upper-outer quadrant of left breast in female, estrogen receptor negative (HCC),Encounter for antineoplastic chemotherapy,Encounter for prevention of neutropenia due to chemotherapy LORAzepam (Ativan) tab 0.5 mg 0.5 mg, Oral, ONCE PRN Anxiety, Nausea, Starting on Sun05/16/24 at 1115, Until DiscontinuedIndications:Nancy gnant neoplasm of upper-outer quadrant of left breast in female, estrogen receptor negative (HCC),Encounter for antineoplastic chemotherapy,Encounter for prevention of neutropenia due to chemotherapy meperidine (Demerol) 25 MG/ML inj 25 mg 25 mg, Intramuscular, ONCE PRN Shivering, Chills/Rigors from acute infusion reaction, Starting on Sun05/16/24 at 1001, Until 05/17/24 at 1000, For 24 hoursIndications:Malignant neoplasm of upper-outer quadrant of left breast in female, estrogen receptor negative (HCC),Encounter for antineoplastic chemotherapy,Encounter for prevention of neutropenia due to chemotherapy NSS infusion Intravenous, at 50 mL/hr, PRN, Starting on Sun05/16/24 at 1115, Until Discontinued, Maintenance lineIndications:Malignant neoplasm of upper-outer quadrant of left breast in female, estrogen receptor negative (HCC),Encounter for antineoplastic chemotherapy,Encounter for prevention of neutropenia due to chemotherapy Start Infusion 05/16/2024 10:02 AM EST 50 mL/hr oxygen GAS Inhalation, OXYGEN, First dose on Sun05/16/24 at 1045, Until Discontinued, Device/Managed by: Low Flow Device, [...] Flush, Starting on Sun05/16/24 at 1001, Until 05/17/24 at 1000, For 24 hours, Do not flush if lock, PICC, or central line not in place; IV infusing or unable to flush.Indications:Malignant neoplasm of upper-outer quadrant of left breast in female, estrogen receptor negative (HCC),Encounter for antineoplastic chemotherapy,Encounter for prevention of neutropenia due to chemotherapy Given 05/16/2024 12:25 PM EST 10 mL Inactive Administered Medications - up to 3 most recent administrations Medication Order MAR Action Action Date Dose Rate Site CARBOplatin (Paraplatin) 199 mg in D5W 250 mL infusion 199 mg (rounded from 198.9 mg, Target AUC = 1.5), IV Piggyback, at 510 mL/hr Administer over 30 Minutes, PROTECT FROM LIGHT, ONCE, 1 dose, On Sun05/16/24 at 1315Indications:Jess nant neoplasm of upper-outer quadrant of left breast in female, estrogen receptor negative (HCC),Encounter for antineoplastic chemotherapy,Encounte r for prevention of neutropenia due to chemotherapy Start Infusion 05/16/2024 11:47 AM EST 199 mg 510 mL/hr dexAMETHasone (Decadron) tab 12 mg 12 mg, Oral, ONCE, On Sun05/16/24 at 1045, For 1 doseIndications:Jess nant neoplasm of upper-outer quadrant of left breast in female, estrogen receptor negative (HCC),Encounter for antineoplastic chemotherapy,Encounte r for prevention of neutropenia due to chemotherapy Given 05/16/2024 10:12 AM EST 12 mg diphenhydrAMINE (Benadryl) cap 50 mg 50 mg, Oral, ONCE, On Sun05/16/24 at 1115, For 1 doseIndications:Jess nant neoplasm of upper-outer quadrant of left breast in female, estrogen receptor negative (HCC),Encounter for antineoplastic chemotherapy,Encounte r for prevention of neutropenia due to chemotherapy Given 05/16/2024 10:12 AM EST 50 mg Famotidine (Pepcid) tab 20 mg 20 mg, Oral, ONCE, On Sun05/16/24 at 1115, For 1 doseIndications:Malforest nant neoplasm of upper-outer quadrant of left breast in female, estrogen receptor negative (HCC),Encounter for antineoplastic chemotherapy,Encounte r for prevention of neutropenia due to chemotherapy Given 05/16/2024 10:12 AM EST 20 mg Leuprolide Acetate (Lupron) inj 3.75 mg 3.75 mg, Intramuscular, ONCE, On Sun05/16/24 at 1145, For 1 doseIndications:Jess christie neoplasm of upper-outer quadrant of left breast in female, estrogen receptor negative (HCC),Encounter for fertility preservation procedure,Suppression of ovarian secretion Given 05/16/2024 10:50 AM EST 3.75 mg Dorsogluteal Left PACLitaxel (Taxol) [...] at 1045, For 1 dose, Restricted per GHS antiemetic guidelinesIndications :Malignant neoplasm of upper-outer quadrant of left breast in female, estrogen receptor negative (HCC),Encounter for antineoplastic chemotherapy,Encounte r for prevention of neutropenia due to chemotherapy Given 05/16/2024 10:13 AM EST 0.25 mg documented in this encounter Care Teams Business Development Agent Relationship Specialty Start Date End Date Malinda Owens CRNP [address] [place] [address] PCP - General Nurse Practitioner 09/20/23 documented as of this encounter
--- OUTSIDE RECORDS SUMMARY | 2024-09-05 14:40 | External Medical Summary | Summary of Care ---
Author Name Unknown Organization [facility] Address [address] [facility] [place] [address] Phone [phone] Care Team Providers Care Team Assembler Name Role Phone Malinda Owens Primary Care Provider [phone] Reason for Visit * Reason Comments Outpatient Testing Encounter Details Date Type Department Care Team (Late st Contact Info) Description 05/22/2024 9:10 AM EST Laboratory Laboratory [facility] [address] [place] [phone] [facility] 200 [facility] [place] [address] Malignant neoplasm of upper-outer quadrant of left [...] complete. Enrolled in Current Health. Plans to package pick up meter from pharmacy today. Instructions provided to [...] and class I obesity. Per review of MINE FOREMAN documentation of 09/25/23, blood glucose values [...] Recommend nutrition consult with RDN (Registered Dietitian Research Neuropsychologist). Lifestyle changes are also indicated including optimizing [...] and folate levels and referral to a jewelry store manager. If hemoglobin levels are below 8 g/dl, we recommend Maternal Medicine ultrasound for growth every 4 weeks after 24 weeks. Consider a blood transfusion if hemoglobin levels fall below 6 g/dL. ([employer] and Vacuum Applicator Operator Practice Bulletin Number 95, December,). Consider [...] to get more. 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 on file Not on file documented as of this encounter Plan of Treatment Upcoming Encounters Date Type Department Care Team (Latest Contact Info) Description 05/22/2024 9:30 AM EST Office Visit Hematology/Oncology Rafael Amato [place] [address] [place] [address] Gabby Zavala CRNP 400 [facility] [place] [address] PENDING VISIT DRAFT 05/22/2024 10:00 AM EST Hem/Onc Treatment Hematology/Oncology Treatment, [place] [address] [facility] [place] [address] [place], Chair 4 Hem Onc [place] [address] [address] [place] [id number] 05/29/2024 9:30 AM EST Laboratory Laboratory Scenery [place] [address] [place], [place] [address] [place], Lab [address]enery [address] [place], [place] [address] 05/29/2024 10:30 AM EST Hem/Onc Treatment Hematology/Oncology Treatment, [place] [address] [place], [place] [address] [place], Chair 9 Hem Onc [address] [place], [place] [address] 08/06/2024 9:00 AM EST Telemedicine Genetics HemOnc, [facility] [place] [address] [place] [address] Estephania Reyes, [place] [address] [place] [address] Pending Results Name Type Priority Associated Diagnoses Date /Time COMPREHENSIVE METABOLIC PANEL Lab STAT Malignant neoplasm of upper-outer quadrant of left breast in female, estrogen receptor negative (HCC) 05/22/2024 9:11 AM EST TSH WITH FREE T4 IF INDICATED Lab STAT Malignant neoplasm of upper-outer quadrant of left breast in female, estrogen receptor negative (HCC) 05/22/2024 9:11 AM EST Health Maintenance Due Date [...] this encounter Medical Devices Implanted Type Area Life Tester [employer] Device Identifier Shelf Expiration Date Model / Serial / Lot Stent Angulo 4fr 11cm - [id number] Implanted:Qty : 1 on 02/08/2024 by Jeffrey Kerr MD at OR [facility] [employer] [id number] 08/16/2028 [id number] / / [id number] Port Implant W8f Poly Cath - [id number] Implanted:Qty : 1 on 05/02/2024 by Iam Curry MD at OR [facility] Right: Chest CR BARD : PERIPHERAL VASCULAR [id number] 05/17/2025 [id number] / / [id number] documented as of this encounter Procedures Procedure Name Priority Date/Time Associated Diagnosis Comments DIFFERENTIAL, AUTOMATED STAT 05/22/2024 9:11 AM EST Malignant neoplasm of upper-outer quadrant of left breast in female, estrogen receptor negative (HCC) CBC STAT 05/22/2024 9:11 AM EST Malignant neoplasm of upper-outer quadrant of left breast in female, estrogen receptor negative (HCC) CBC STAT 05/22/2024 9:11 AM EST Malignant neoplasm of upper-outer quadrant of left breast in female, estrogen receptor negative (HCC) HCG QUALITATIVE, URINE STAT 05/22/2024 9:11 AM EST Malignant neoplasm of upper-outer quadrant of left breast in female, estrogen receptor negative (HCC) documented in this encounter Results * (ABNORMAL) DIFFERENTIAL, AUTOMATED (05/22/2024 9:11 AM EST) WBC 5.15 4.00 - 10.80 K/uL 05/22/2024 9:20 AM [facility] 56-02 Neutrophils % 44.5 40.0 - 75.0 % 05/22/2024 9:20 AM [facility] 56-02 Lymphocytes % 39.0 18.0 - 42.0 % 05/22/2024 9:20 AM [facility] 56-02 Monocytes % 9.7 1.0 - 11.0 % 05/22/2024 9:20 AM [facility] 56-02 Eosinophils % 6.2(H) 0.0 - 6.0 % 05/22/2024 9:20 AM [facility] 56-02 Basophils % 0.6 0.0 - 2.0 % 05/22/2024 9:20 AM [facility] 56-02 Absolute Neutrophils 2.29 1.80 - 7.70 K/uL 05/22/2024 9:20 AM [facility] 56-02 Absolute Lymphocytes 2.01 1.00 - 4.80 K/ul 05/22/2024 9:20 AM [facility] 56-02 Absolute Monocytes 0.50 0.00 - 1.10 K/uL 05/22/2024 9:20 AM [facility] 56-02 Absolute Eosinophils 0.32 0.00 - 0.70 K/uL 05/22/2024 9:20 AM [facility] 56-02 Absolute Basophils 0.03 0.00 - 0.20 K/uL 05/22/2024 9:20 AM [facility] 56-02 Blood Venous blood specimen / Unknown Venipuncture / Unknown 05/22/2024 9:11 AM EST 05/22/2024 9:11 AM EST us Mandeep Luna MD LAB BLOOD ORDERABLES Fin al Result [facility] [address] [place] [address] * CBC (05/22/2024 9:11 AM EST) WBC 5.15 4.00 - 10.80 K/uL 05/22/2024 9:20 AM [facility] 56-02 RBC 4.08 3.85 - 5.15 M/uL 05/22/2024 9:[address] HGB 12.9 12.0 - 15.3 g/dL 05/22/2024 9:[address] HCT 39.8 36.0 - 45.2 % 05/22/2024 9:[address] MCV 97.5 81.5 - 97.5 fL 05/22/2024 9:[address] MCH 31.6 27.0 - 34.0 pg 05/22/2024 9:[address] MCHC 32.4 32.0 - 36.0 g/dL 05/22/2024 9:[address] RDW 12.2 11.5 - 15.5 % 05/22/2024 9:[address] PLT 244 140 - 400 K/uL 05/22/2024 9:[address] MPV 10.0 6.6 - 11.1 fL 05/22/2024 9:20 AM [facility] 56 Blood Venous blood specimen / Unknown Venipuncture / Unknown 05/22/2024 9:11 AM EST 05/22/2024 9:11 AM EST Mandeep Luna MD LAB BLOOD ORDERABLES Fin al Result [address] [place] [address] * HCG QUALITATIVE, URINE (05/22/2024 9:11 AM EST) HCG Qualitative, Urine Negative Negative 05/22/2024 9:21 AM [place] [address] Urine Urine specimen obtained by clean catch procedure / Unknown Non-blood Collection / Unknown 05/22/2024 9:11 AM EST 05/22/2024 9:11 AM EST Mandeep Luna MD LAB URINE ORDERABLES Fin al Result [facility] [place] [address] [place] [address] documented in this encounter Visit Diagnoses Diagnosis [...] (HCC) documented in this encounter Care Teams Team Assembler Relationship Specialty Start Date End Date Malinda Owens CRNP [address] [facility] [place] [address] PCP - General Nurse Practitioner 09/20/23 documented as of this encounter
--- OUTSIDE RECORDS SUMMARY | 2024-09-05 14:40 | External Medical Summary | Summary of Care ---
Author Name Unknown Organization [facility] Address [address] [place] [address] Phone [phone] Care Team Providers Care Repairer Welding Equipment Name Role Phone Malinda Owens Primary Care Provider [phone] Reason for Visit * Reason Comments Chemotherapy [...] INJ CYCLOPHOSPHAMD AUROMEDIC Em Ng MD 400 [facility] [place] [address] Phone: tel: fax: Hematology/Oncology Treatment, [address] [place] [address] Phone: tel: fax: Referral ID Status Reason Start Date Expiration Date V isits Requested Visits Authorized [id number] Authorized 04/30/2024 07/07/2024 [id number] Encounter Details Date Type Department Care Team (Latest Contact Info) Description 05/16/2024 10:00 AM EST Hem/Onc Treatment Hematology/Oncolog y Treatment, [address] [place] [address] [place], Chair 2 Hem Onc [address] [address] Malignant neoplasm of upper-outer quadrant of left [...] and class I obesity. Per review of EDUCATIONAL COORDINATOR documentation of 09/25/23, blood glucose values [...] Recommend nutrition consult with RDN (Registered Dietitian Recovery Analyst). Lifestyle changes are also indicated including [...] folate levels and referral to a hearing aid technician. If hemoglobin levels are below 8 g/dl, we recommend Maternal Medicine ultrasound for growth every 4 weeks after 24 weeks. Consider a blood transfusion if hemoglobin levels fall below 6 g/dL. ([employer] [facility] and [employer] Practice Bulletin Number 95, December,). Consider Venofer [...] money to get more. 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 on [...] 05/29/2024 9:30 AM EST Laboratory Laboratory Sc[address]ery [facility] [address] [place], [place] [address] [place], Lab [address]en[address] [facility] [place], [place] [address] 05/29/2024 10:30 AM EST Hem/Onc Treatment Hematology/Oncology Treatment, [place] [facility], [place] [address] [place], Chair 9 Hem Onc [address] [place], [place] [address] 06/05/2024 9:50 AM EST Laboratory Laboratory [facility] [address] [place], [place] [address] [place], Lab [address] [facility] [place] [place] [address] 06/05/2024 11:00 AM EST Hem/Onc Treatment Hematology/Oncology Treatment, [place] 200 [facility] [place], [place] [address] [place], Chair 6 Hem Onc [address] [place], [place] [address] 06/12/2024 10:00 AM EST Laboratory Laboratory [facility] [place] [address] [place], [place] [address] [place], Lab [address] [place] [address] 06/12/2024 11:00 AM EST Hem/Onc Treatment Hematology/Oncology Treatment, [place] [facility], [place] [address] [place], Chair 6 Hem Onc [address] [place], [place] [address] 06/19/2024 9:00 AM EST Laboratory Laboratory Scenery [facility] [address] [place], [place] [phone] [place], Lab Scenery 200 [facility] [place], [place] [address] 06/19/2024 9:30 AM EST Office Visit Hematology/Oncology [facility] [place] [address] [place] [phone] Em Ng MD [address] [place], [place] [address] [address] 06/19/2024 10:00 AM EST Hem/Onc Treatment Hematology[facility]Oncology Treatment, [place] [facility] [address] [place], Chair 11 Hem Onc [facility] 200 [facility] [place] [address] 08/06/2024 9:00 AM EST Telemedicine Genetics HemOnc, [facility] [address] [place] [address] Estephania Reyes, [place] [address] [place] [address] Health Maintenance Due Date Last [...] this encounter Medical Devices Implanted Type Area Artificial Plastic Eye Maker Device Identifier Shelf Expiration Date Model / Serial / Lot Stent Kev 4fr 11cm - [id number] Implanted:Qty : 1 on 02/08/2024 by Jeffrey Kerr MD at OR [facility] [employer] [id number] 08/16/2028 [id number] / / [id number] Port Implant W8f Poly Cath - [id number] Implanted:Qty : 1 on 05/02/2024 by Iam Curry MD at OR [facility] Right: Chest CR BARD : PERIPHERAL VASCULAR [id number] 05/17/2025 [id number] / / [id number] documented as of this encounter Visit Diagnoses [...] ONCE, On Sun05/16/24 at 1145, For 1 doseIndications:eJss simont neoplasm of upper-outer quadrant of left [...] mL documented in this encounter Care Teams Repairer Welding Equipment Relationship Specialty Start Date End Date Malinda Owens CRNP 132 [place] [address] PCP - General Nurse Practitioner 09/20/23 documented as of this encounter
--- OUTSIDE RECORDS SUMMARY | 2024-09-05 14:40 | External Medical Summary | Summary of Care ---
Author Name Unknown Organization [facility] Address [address] [facility] [place] [address] Phone [phone] Care Team Providers Care Boxing Promoter Name Role Phone Malinda Owens Primary Care Provider [phone] Reason for Visit * Reason Comments Chemotherapy C1/D15 - Taxol, Carb oplatin * Episode Based Medications (Routine) - Authorized [...] FULPHILA SD PACLITAXEL INJECTION SD INJ CYCLOPHOSPHAMD AUREm James MD [address] [facility] [place] [address] Phone: tel: fax: Hematology/Oncology Treatment, [address] [address] Phone: tel: fax: Referral ID Status Reason Start Date Expiration Date V isits Requested Visits Authorized [id number] Authorized 04/30/2024 07/07/2024 [id number] Encounter Details Date Type Department Care Team (Latest Contact Info) Description 05/22/2024 10:00 AM EST Hem/Onc Treatment Hematology/Oncolog y Treatment, [address] [place] [address] [place], Chair 4 Hem Onc Scenery [address] [place] [address] Malignant neoplasm of upper-outer quadrant of left breast in female, estrogen receptor negative (HCC)*; Encounter for antineoplastic chemotherapy; Encounter for prevention of neutropenia due to chemotherapy Allergies No known active allergiesdocumented as of this encounter (statuses as of 05/22/2024) Medications 19 29-1 MG Oral Tablet Chewable [...] and class I obesity. Per review of INTERVENTION MANAGER documentation of 09/25/23, blood glucose values [...] Recommend nutrition consult with RDN (Registered Dietitian Poultry Packer). Lifestyle changes are also indicated including optimizing [...] and folate levels and referral to a drawbench operator. If hemoglobin levels are below 8 g/dl, we recommend Maternal Medicine ultrasound for growth every 4 weeks after 24 weeks. Consider a blood transfusion if hemoglobin levels fall below 6 g/dL. ([employer] [facility] Bulletin Number 95, December,). Consider [...] money to get more. 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 Taxol stopped, NSS bolus started and 100 Solu-Cortef given at this time. Patient also clearing her throat several times, denies SOB or chest tightness however. She states she felt like she may have been getting a cold before coming in today and says her was sick today as well. Patient reports she did take her ordered Benadryl and Pepcid at home last night as well. 1146 - Dr. Ng at chair side to assess patient. Patient is starting to feel less hot and no longer flushed - still c/o nausea and now having a headache, slightly worse headache compared to when she arrived here today. Vital signs are stable: Filed Vitals: 05/22/24 1146 05/22/24 1152 BP: 108/74 111/74 Pulse: 67 77 Resp: 18 18 SpO2: 97% 97% Patient does not have any steroids ordered for the night before and morning of tx days - will now add these to patient's tx plan. Dr. Ng also states we can give an additional 20 IVP Pepcidnow since patient is nauseas and before restarting Taxol. 1205 - 20 IVP Pepcid given. 1215 - Patient is feeling much better now, just overall tired but no complaints. Headache is faint. AD Elliott switched pretreats from PO Pepcid and PO benadryl to IVP Pepcid/Benadryl. 1229 - Patient's Taxol restarted per Dr. Clark, started again at ordered rate. Patient is feeling well. 1245 - Patient is tolerating well at this point, denies any s/s and denies further needs, patient is comfortable. * Justine Cool RN - 05/22/2024 11:46 AM EST Chair 8. Port accessed without difficulty. Patient saw AD Elliott today - see OV note for details. Patient is accompanied by mother in law today. Chemotherapy/Immunotherapy agents: TAXOL, CARBOPLATIN Consent for chemotherapy drug treatment complete, dated, and signed? yes, date - 04/24/2024 Treatment lab parameters met? Yes Has treatment weight changed > than 10%? No Treatment preauthorized? Yes VITALS Filed Vitals: 05/22/24 1146 05/22/24 1152 BP: 108/74 111/74 Pulse: 67 77 Resp: 18 18 SpO2: 97% 97% BP Readings from Last 2 Encounters: 05/22/24 111/74 05/22/24 105/75 Pulse Readings from Last 2 Encounters: 05/22/24 77 05/22/24 106 Resp Readings from Last 2 Encounters: 05/22/24 18 05/16/24 16 SpO2 Readings from Last 2 Encounters: 05/22/24 97% 05/22/24 95% Temp Readings from Last 2 Encounters: 05/22/24 36.4 C (97.6 F) (Tympanic) 05/16/24 36.3 C (97.3 F) (Tympanic) Urine protein: N/A Patient education [...] Description 05/29/2024 9:30 AM EST Laboratory Laboratory [facility] [place] [address] [place] [phone] [place], Lab Scene [address] [facility] [place] [address] 05/29/2024 10:30 AM EST Hem/Onc Treatment Hematology/Oncology Treatment, [place] [address] [place] [address] [place], Chair 9 Hem Onc Scenery [address] [place] [address] 06/05/2024 9:50 AM EST Laboratory Laboratory [facility] [place] [address] [place] [address] [place], Lab [facility] [address] [facility] [place] [address] 06/05/2024 11:00 AM EST Hem/Onc Treatment Hematology/Oncology Treatment, [place] [address] [facility], [place] [phone] [place], Chair 6 Hem Onc Scenery [address] [place], [place] [address] 06/12/2024 10:00 AM EST Laboratory Laboratory [facility] [address] [place], [place] [phone] [place], Lab Scenery [address] [facility] [place] [address] 06/12/2024 11:00 AM EST [facility] [address] [facility], [place] [phone] [place], Chair 6 Hem Onc Scenery [address] [place], [place] [address] 06/19/2024 9:00 AM EST Laboratory Laboratory [facility] [address] [place], [place] [phone] [place], Lab Scenery [address] [facility] [place] [address] 06/19/2024 9:30 AM EST Office Visit Hematology/Oncology [facility] [address] [place], [place] [phone] Em Ng MD [address] [place], [place] [address] [phone] 06/19/2024 10:00 AM EST [facility] [address] [facility], [place] [address] [place], Chair 11 Hem Onc Scenery [address] [place], [place] [address] 08/06/2024 9:00 AM EST Telemedicine Genetics HemOn, [facility] [address] [place] [address] Estephania Reyes, MS [address] [place] [address] Health Maintenance Due Date Last Done Comments [...] this encounter Medical Devices Implanted Type Area Preparation Department Supervisor Device Identifier Shelf Expiration Date Model / Serial / Lot Stent Angulo 4fr 11cm - [id number] Implanted:Qty : 1 on 02/08/2024 by Jeffrey Kerr MD at OR [facility] [employer] [id number] 08/16/2028 [id number] / / [id number] Port Implant W8f Poly Cath - [id number] Implanted:Qty : 1 on 05/02/2024 by Iam Curry MD at OR [facility] Right: Chest CR BARD : PERIPHERAL VASCULAR [id number] 05/17/2025 [id number] / / [id number] documented as of this encounter Visit Diagnoses [...] ONCE PRN Other, Hypersensitivity Reaction, Starting on Sun05/22/24 at 1045, Until Sun05/23/24 at 1044, For 24 hoursIndications:Malignant neoplasm of upper-outer quadrant of left breast in female, estrogen receptor negative (HCC),Encounter for antineoplastic chemotherapy,Encounter for prevention of neutropenia due to chemotherapy EPINEPHrine 1 MG/ML inj 0.3 mg 0.3 mg, Intramuscular, ONCE PRN Other, Hypersensitivity Reaction or Anaphylaxis, Starting on Sun05/22/24 at 1045, Until Sun05/23/24 at 1044, For 24 hoursIndications:Malignant neoplasm of upper-outer quadrant of left breast in female, estrogen receptor negative (HCC),Encounter for antineoplastic chemotherapy,Encounter for prevention of neutropenia due to chemotherapy hEParin 100 UNIT/ML Lock Flush inj 500 Units 500 Units (5 mL), IV Lock, PRN Other, IV Flush, Starting on Sun05/22/24 at 1045, Until Sun05/23/24 at 1044, For 24 hours, Do not flush if lock, PICC, or central line not in place; IV infusing or unable to flush.Indications:Malignant neoplasm of upper-outer quadrant of left breast in female, estrogen receptor negative (HCC),Encounter for antineoplastic chemotherapy,Encounter for prevention of neutropenia due to chemotherapy Given 05/22/2024 2:08 PM EST 500 Units Hydrocortisone Sod Suc (PF) (Solu-Cortef) inj 100 mg 100 mg, IV Push, ONCE PRN Other, Hypersensitivity Reaction, Starting on Sun05/22/24 at 1045, Until Sun05/23/24 at 1044, For 24 hoursIndications:Malignant neoplasm of upper-outer quadrant of left breast in female, estrogen receptor negative (HCC),Encounter for antineoplastic chemotherapy,Encounter for prevention of neutropenia due to chemotherapy Given 05/22/2024 11:45 AM EST 100 mg LORAzepam (Ativan) tab 0.5 mg 0.5 mg, Oral, ONCE PRN Anxiety, Nausea, Starting on Bibi 05/22/24 at 1200, Until DiscontinuedIndications:Nancy gnant neoplasm of upper-outer quadrant of left breast in female, estrogen receptor negative (HCC),Encounter for antineoplastic chemotherapy,Encounter for prevention of neutropenia due to chemotherapy meperidine (Demerol) 25 MG/ML inj 25 mg 25 mg, Intramuscular, ONCE PRN Shivering, Chills/Rigors from acute infusion reaction, Starting on Bibi 05/22/24 at 1045, Until Sun05/23/24 at 1044, For 24 hoursIndications:Malignant neoplasm of upper-outer quadrant of left breast in female, estrogen receptor negative (HCC),Encounter for antineoplastic chemotherapy,Encounter for prevention of neutropenia due to chemotherapy NSS infusion Intravenous, at 50 mL/hr, PRN, Starting on Bibi 05/22/24 at 1200, Until Discontinued, Maintenance lineIndications:Malignant neoplasm of upper-outer quadrant of left breast in female, estrogen receptor negative (HCC),Encounter for antineoplastic chemotherapy,Encounter for prevention of neutropenia due to chemotherapy Start Infusion 05/22/2024 11:01 AM EST 50 mL/hr oxygen GAS Inhalation, OXYGEN, First dose on Bibi 05/22/24 at 1130, Until Discontinued, Device/Managed by: Low [...] Push, PRN Other, IV Flush, Starting on Sun05/22/24 at 1045, Until Sun05/23/24 at 1044, For 24 hours, Do not flush if lock, PICC, or central line not in place; IV infusing or unable to flush.Indications:Malignant neoplasm of upper-outer quadrant of left breast in female, estrogen receptor negative (HCC),Encounter for antineoplastic chemotherapy,Encounter for prevention of neutropenia due to chemotherapy Given 05/22/2024 2:08 PM EST 10 mL Inactive Administered Medications - up to 3 most recent administrations Medication Order MAR Action Action Date Dose Rate Site CARBOplatin (Paraplatin) 183 mg in D5W 250 mL infusion 183 mg (rounded from 182.85 mg, Target AUC = 1.5), IV Piggyback, at 510 mL/hr Administer over 30 Minutes, PROTECT FROM LIGHT, ONCE, 1 dose, On Sun05/22/24 at 1400Indications:Malignant neoplasm of upper-outer quadrant of left breast in female, estrogen receptor negative (HCC),Encounter for antineoplastic chemotherapy,Encounter for prevention of neutropenia due to chemotherapy Start Infusion 05/22/2024 1:27 PM EST 183 mg 510 mL/hr dexAMETHasone (Decadron) tab 12 mg 12 mg, Oral, ONCE, On Sun05/22/24 at 1130, For 1 doseIndications:Malignant neoplasm of upper-outer quadrant of left breast in female, estrogen receptor negative (HCC),Encounter for antineoplastic chemotherapy,Encounter for prevention of neutropenia due to chemotherapy Given 05/22/2024 11:00 AM EST 12 mg diphenhydrAMINE (Benadryl) cap 50 mg 50 mg, Oral, ONCE, On Sun05/22/24 at 1200, For 1 doseIndications:Malignant neoplasm of upper-outer quadrant of left breast in female, estrogen receptor negative (HCC),Encounter for antineoplastic chemotherapy,Encounter for prevention of neutropenia due to chemotherapy Given 05/22/2024 11:00 AM EST 50 mg Famotidine (Pepcid) inj 20 mg 20 mg, IV Push, ONCE, On Sun05/22/24 at 1415, For 1 dose, Give IV push over 2 minutes.Indications:Malignan t neoplasm of upper-outer quadrant of left breast in female, estrogen receptor negative (HCC),Encounter for antineoplastic chemotherapy,Encounter for prevention of neutropenia due to chemotherapy Given 05/22/2024 12:05 PM EST 20 mg Famotidine (Pepcid) tab 20 mg 20 mg, Oral, ONCE, On Bibi 05/22/24 at 1200, For 1 doseIndications:Malignant neoplasm of upper-outer quadrant of left breast in female, estrogen receptor negative (HCC),Encounter for antineoplastic chemotherapy,Encounter for prevention of neutropenia due to chemotherapy Given 05/22/2024 11:00 AM EST 20 mg PACLitaxel (Taxol) 165 mg in NSS 250 mL infusion 165 mg (rounded from 164.8 mg = 80 mg/m2 2.06 m2 Treatment Plan BSA from Recorded weight), IV Piggyback, ONCE, 1 dose, On Bibi 05/22/24 at 1300, Administer over 60 Minutes, Administer through 0.22 micron low protein binding filter!Indications:Malignant neoplasm of upper-outer quadrant of left breast in female, estrogen receptor negative (HCC),Encounter for antineoplastic chemotherapy,Encounter for prevention of neutropenia due to chemotherapy Restarted 05/22/2024 12:29 PM EST 255 mL/hr Restarted 05/22/2024 12:27 PM EST 255 mL/hr Start Infusion 05/22/2024 11:37 AM EST 165 mg 255 mL/h r Palonosetron (Aloxi) inj SOLN 0.25 mg 0.25 mg, IV Push, ONCE, On Bibi 05/22/24 at 1130, For 1 dose, Restricted per [facility]HS antiemetic guidelinesIndications:Malignant neoplasm of upper-outer quadrant of left breast in female, estrogen receptor negative (HCC),Encounter for antineoplastic chemotherapy,Encounter for prevention of neutropenia due to chemotherapy Given 05/22/2024 11:00 AM EST 0.25 mg documented in this encounter Care Teams Boxing Promoter Relationship Specialty Start Date End Date Malinda Owens CRNP [address] [place] [address] PCP - General Nurse Practitioner 09/20/23 documented as of this encounter
--- OUTSIDE RECORDS SUMMARY | 2024-09-05 14:41 | External Medical Summary | Summary of Care ---
Author Name Unknown Organization [facility] Address [address] [facility] [place] [address] Phone [phone] Care Team Providers Care Insulation Nozzleman Name Role Phone Malinda Owens Primary Care Provider Reason for Visit * Reason Onset Date Comments Billing Questions 05/07/2024 Encounter Details Date Type Department Care Team (Late st Contact Info) Description 05/07/2024 Telephone [facility] [address] [place] [address] Lilia Marques PA-C [address] [facility] [place] [address] Billing Questions Allergies No known active allergiesdocumented as of this encounter (statuses as of 05/12/2024) Medications 19 29-1 MG Oral Tablet Chewable [...] as of this encounter (statuses as of 05/12/2024) Active Problems Problem Noted Date Diagnosed Date [...] class I obesity. Per review of REHABILITATION ASSISTANT documentation of 09/25/23, blood glucose values [...] Recommend nutrition consult with RDN (Registered Dietitian Senior Hr Business Partner). Lifestyle changes are also indicated including optimizing [...] folate levels and referral to a manager marketing communications. If hemoglobin levels are below 8 g/dl, we recommend Maternal Medicine ultrasound for growth every 4 weeks after 24 weeks. Consider a blood transfusion if hemoglobin levels fall below 6 g/dL. ([employer] [facility] Bulletin Number 95, December,). Consider Venofer [...] as of this encounter (statuses as of 05/12/2024) Resolved Problems Problem Noted Date Diagnosed Date Resolved Date Abnormal glucose tolerance i n mother complicating 04/19/2023 08/31/2023 Overview (04/19/2023): Failed early glucola. 3hr GTT ordered documented as of this encounter (statuses as of 05/12/2024) Immunizations Name Administration Dates Next Due DTP [...] money to get more. Never true 03/26/2024 Varney Depression Scale Answer Date Recorded Varney Depression Scale Total 6 12/11/2023 The thought [...] No 03/26/2024 Does the household have a up health systemr source of income? 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 Please contact pt & update notes in snapshot. Please sign encounter to close phone message. Copy in chart documented in this encounter Plan of Treatment Upcoming Encounters Date Type Department Care Team (Late st Contact Info) Description 05/16/2024 9:10 AM EST Laboratory Laboratory [address] [place] [address] [place] [phone] [place], Lab Scenery [address] [facility] [place], [place] [address] 05/16/2024 10:00 AM EST Hem/Onc Treatment Hematology/Oncology Treatment, [place] [address] [facility] [place], [place] [address] [place], Chair 2 Hem Onc Scenery [address] [place] [address] 05/22/2024 9:10 AM EST Laboratory Laboratory [facility] [place] [address] [place] [address] [place], Lab Scenery [address] [place], [place] [address] 05/22/2024 9:30 AM EST Office Visit Hematology/Oncology [facility] [place] [address] [place] [phone] Gabby Zavala [facility] [address] [facility] [address] 05/22/2024 10:00 AM EST Hem/Onc Treatment Hematology/Oncology Treatment, [place] [address] [facility], [place] [address] [place], Chair 4 Hem Onc Scenery [address] [place], [place] [address] 05/29/2024 9:30 AM EST Laboratory Laboratory [facility] [place] [address] [place] [phone] [place], Lab Scenery [address] [place] [address] 05/29/2024 10:30 AM EST Hem/Onc Treatment Hematology/Oncology Treatment, [place] [address] [place] [address] [place], Chair 9 Hem Onc Scenery [address] [place] [address] 08/06/2024 9:00 AM EST Telemedicine Genetics HemOnc, [facility] [address] [place] [address] Estephania Reyes, MS [address] [place] [address] Health Maintenance Due Date Last Done Comments [...] this encounter Medical Devices Implanted Type Area Embedded Software Manager Device Identifier Shelf Expiration Date Model / Serial / Lot Therese Angulo 4fr 11cm - [id number] Implanted:Qty : 1 on 02/08/2024 by Jeffrey Kerr [facility] [id number] 08/16/2028 [id number] / / [id number] Port Implant W8f Poly Cath - [id number] Implanted:Qty : 1 on 05/02/2024 by Iam Curry MD at [facility] Right: Chest CR BARD : PERIPHERAL VASCULAR [id number] 05/17/2025 [id number] / / [id number] documented as of this encounter Care Teams Insulation Nozzleman Relationship Specialty Start Date End Date Malinda Owens CRNP [address] [place] [address] PCP - General Nurse Practitioner 09/20/23 documented as of this encounter
--- OUTSIDE RECORDS SUMMARY | 2024-09-05 14:41 | External Medical Summary | Summary of Care ---
Author Name Unknown Organization [facility] Address [address] [place] [address] Phone [phone] Care Team Providers Care Principal Systems Architect Name Role Phone Malinda Owens Primary Care Provider [phone] Reason for Referral * Evaluate & Treat - Unlimited Visits (Within 24 hrs (call dept; emergent)) - Pending Review Specialty Diagnoses / Procedures Referred By Bennie gilliland Referred To Contact Obstetrics/Gynecology / Fertility Diagnoses Malignant neoplasm of upper-outer quadrant of left breast in female, estrogen receptor negative (HCC) Em Ng MD [address] [place] [address] [place] [address] Phone: tel: fax: Referral ID Status Reason Start Date Expiration Date Visits Requested Visits Authorized [id number] Pending Review Specialty Services Required 4 999 999 Question Answer Referral Priority Within 24 hrs (call dept; emergent) Where should this appointment be scheduled? [facility] Is patient trying to become ? No Has this patient had any prior fertility evaluations or treatment? No Comments Patient with breast cancer, to start chemotherapy, requesting urgent referral to fertility to discuss options for egg freezing Reason for Visit * Reason Onset Date Comments Referral 05/07/2024 Encounter Details Date Type Department Care Team (Late st Contact Info) Description 05/07/2024 Telephone Hematology/Oncology Treatment, [place] [address] [place] [address] Em Ng MD [address] [place] [address] [place] [phone] Referral Allergies No known active allergiesdocumented as of [...] Stable 10/23/23: RPM reviewed; Stable; diet controlled 05/15/24: RPM reviewed; Stable. Continue diet control. Assessment [...] and class I obesity. Per review of STORE CLERK CHECKER documentation of 09/25/23, blood glucose values [...] nutrition consult with RDN (Registered Dietitian Residential Support Specialist). Lifestyle changes are also indicated including [...] and folate levels and referral to a speech pathology supervisor. If hemoglobin levels are below 8 g/dl, we recommend Maternal Medicine ultrasound for growth every 4 weeks after 24 weeks. Consider a blood transfusion if hemoglobin levels fall below 6 g/dL. ([employer] Obstetricians and Animal Damage Control Agent Practice Bulletin Number 95, December,). Consider Venofer [...] money to get more. 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 * Telephone Encounter - Yuli Gallagher RN - 05/08/2024 4:22 PM EST Late entry. Dr Gurrola spoke to patient. Patient would like to proceed with chemo without egg freezing as she does not want to delay chemo starting. Lupron ordered, patient unsure if she wants this but would like to offer as an option. Asked precert for STAT auth. Auth cannot be obtained without completed office note. Discussed with Dr Ng, she is aware auth cannot be obtained without completed note. * Telephone Encounter - Yuli Gallagher RN - 05/07/2024 3:[address] Gurrola, would like to see patient tomorrow before treatment. Called patient. She states that her visit today went really well, she got a lot of useful information. She is not sure what she wants to do as she would need to delay chemo 3-4 weeks. She is agreeable to seeing Dr Gurrola tomorrow before moving forward with chemotherapy to discuss further. * Telephone Encounter - Yuli Gallagher RN - 05/07/2024 1:31 PM EST At education visit, patient asked about egg freezing- states that she discussed this with Dr Gurrola at office visit, but has not heard anything else about this since. Advised patient that egg freezing would need to occur before chemotherapy. Patient hesitant to start chemo tomorrow as she wants to ensure she has the option of future children. Reached out to Dulce Dye- opening at today at 2:30pm. Called patient, she accepted appt. Referral placed. TT sent to Dr Gurrola. Will need to follow up with patient after fertility appt to see what she wants to do about chemo. documented in this encounter Plan of Treatment Upcoming Encounters Date Type Department Care Team (Late st Contact Info) Description 05/16/2024 9:10 AM EST Laboratory Laboratory [facility] [place] [address] [place] [phone] [place] Lab Scenery [address] [place] [place] [address] 05/16/2024 10:00 AM EST Hem/Onc Treatment Hematology/Oncology Treatment, [place] [address] [place] [phone] [place], Chair 2 Hem Onc [facility] [address] [place] [address] 05/22/2024 9:10 AM EST Laboratory Laboratory [facility] [place] [address] [place] [address] [place], Lab [place] [address] [place] [address] [address] 05/22/2024 9:30 AM EST Office Visit Hematology/Oncology [facility] [place] [address] [place] [address] Gabby Zavala CRNP [address] [facility] [place] [address] 05/22/2024 10:00 AM EST Hem/Onc Treatment Hematology/Oncology Treatment, [place] 200 [place] [phone] [place], Chair 4 Hem Onc [place] [address] [place] [address] 05/29/2024 9:30 AM EST Laboratory Laboratory Scenery [place] 200 [facility] [place] [phone] [place], Lab Scenery 200 [facility] [place] [address] 05/29/2024 10:30 AM EST Hem[facility] 200 [facility], [place] [phone] [place], Chair 9 Hem Onc [place] [address] [place] [address] 08/06/2024 9:00 AM EST Telemedicine Genetics [facility], [facility] [address] [place] [address] Estephania Reyes, [place] [address] [place] [address] Scheduled Referrals Name Type Priority Associated Diagnoses Orde r Schedule FERTILITY REFERRAL OP Referral Within 24 hrs (call dept; emergent) Malignant neoplasm of upper-outer quadrant of left breast in female, estrogen receptor negative (HCC) Ordered: 05/07/2024 Health Maintenance Due Date Last Done Comments [...] this encounter Medical Devices Implanted Type Area Wafer Batter Mixer Device Identifier Shelf Expiration Date Model / Serial / Lot Stent Angulo 4fr 11cm - [id number] Implanted:Qty : 1 on 02/08/2024 by Jeffrey Kerr MD at OR [facility] [employer] [id number] 08/16/2028 [id number] / / [id number] Port Implant W8f Poly Cath - [id number] Implanted:Qty : 1 on 05/02/2024 by Iam Curry MD at OR [facility] Right: Chest CR BARD : PERIPHERAL VASCULAR [id number] 05/17/2025 [id number] / / [id number] documented as of this encounter Visit Diagnoses [...] Primary documented in this encounter Care Teams Principal Systems Architect Relationship Specialty Start Date End Date Malinda Owens CRNP [address] [place] [address] PCP - General Nurse Practitioner 09/20/23 documented as of this encounter
--- OUTSIDE RECORDS SUMMARY | 2024-09-05 14:41 | External Medical Summary | Summary of Care ---
Author Name Unknown Organization [facility] Address [address] [place] [address] Phone [phone] Care Team Providers Care Sap Sd Analyst Name Role Phone Malinda Owens Primary Care Provider [phone] Reason for Referral * Evaluate & Treat - Unlimited Visits (Within 24 hrs (call dept; emergent)) - Pending Review Specialty Diagnoses / Procedures Referred By Bennie gilliland Referred To Contact Obstetrics/Gynecology / Fertility Diagnoses Malignant neoplasm of upper-outer quadrant of left breast in female, estrogen receptor negative (HCC) Em Ng MD [address] [place] [address] [place] [address] Phone: tel: fax: Referral ID Status Reason Start Date Expiration Date Visits Requested Visits Authorized [id number] Pending Review Specialty Services Required 4 999 [...] Contact Info) Description 05/07/2024 Telephone Hematology/Oncology Treatment, [place] [address] [place] [address] Em Ng MD [address] [place] [address] [place] [phone] Referral Allergies No known active allergiesdocumented as of this encounter (statuses as of 05/13/2024) Medications 19 29-1 MG Oral Tablet Chewable [...] as of this encounter (statuses as of 05/13/2024) Active Problems Problem Noted Date Diagnosed Date [...] Current Health. Plans to pick and shovel worker meter from pharmacy today. Instructions provided [...] and class I obesity. Per review of RESEARCH AND DEVELOPMENT SPECIALIST documentation of 09/25/23, blood glucose values [...] Recommend nutrition consult with RDN (Registered Dietitian Gun Numberer). Lifestyle changes are also indicated including optimizing [...] and folate levels and referral to a gill box operator. If hemoglobin levels are below 8 g/dl, we recommend Maternal Medicine ultrasound for growth every 4 weeks after 24 weeks. Consider a blood transfusion if hemoglobin levels fall below 6 g/dL. ([employer] Obstetricians and Ecommerce Manager Practice Bulletin Number 95, December,). Consider [...] as of this encounter (statuses as of 05/13/2024) Resolved Problems Problem Noted Date Diagnosed Date Resolved Date Abnormal glucose tolerance i n mother complicating 04/19/2023 08/31/2023 Overview (04/19/2023): Failed early glucola. 3hr GTT ordered documented as of this encounter (statuses as of 05/13/2024) Immunizations Name Administration Dates Next Due DTP [...] money to get more. 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 Discussed with Dr Gurrola and Lilia Marques. Recommend patient get lupron YADI if she wants it. Called patient. She will think about it and decide when she comes in Sunday. * Telephone Encounter - Yuli Gallagher RN [...] Description 05/16/2024 9:10 AM EST Laboratory Laboratory [facility] [place] [address] [place] [phone] [place], Lab Scenery [address] [place] [address] 05/16/2024 10:00 AM EST Hem/Onc Treatment Hematology/Oncology Treatment, [place] [address] [place] [phone] [place], Chair 2 Hem Onc [address] [place] [address] 05/22/2024 9:10 AM EST Laboratory Laboratory Scenery [place] [address] [place] [address] [place], Lab Scenery [address] [place], [place] [address] 05/22/2024 9:30 AM EST Office Visit Hematology/Oncology [facility] [place] [address] [place] [address] Gabby Zavala CRNP [address] [place] [address] 05/22/2024 10:00 AM EST Hem/Onc Treatment Hematology/Oncology Treatment, [place] 200 [facility], [place] [phone] [place], Chair 4 Hem Onc [place] 200 [facility] [place] [address] 05/29/2024 9:30 AM EST Laboratory Laboratory Scenery [place] [address] [place], [place] [address] [place], Lab Scenery [address] [place], [place] [address] 05/29/2024 10:30 AM EST Hem/Onc Treatment Hematology/Oncology [address] [place] [address], [place] [phone] [place], Chair 9 Hem Onc Scenery 200 [facility] [place], [place] [address] 08/06/2024 9:00 AM EST Telemedicine Genetics [facility], [facility] [address] [place] [address] sEtephania Reyes, [place] [address] [place] [address] Scheduled Referrals Name Type Priority Associated Diagnoses [...] this encounter Medical Devices Implanted Type Area Facility Worker Device Identifier Shelf Expiration Date Model / Serial / Lot Stent Kev 4fr 11cm - [id number] Implanted:Qty : 1 on 02/08/2024 by Jeffrey Kerr MD at OR [facility] [employer] [id number] 08/16/2028 [id number] / / [id number] Port Implant W8f Poly Cath - [id number] Implanted:Qty : 1 on 05/02/2024 by Iam Curry MD at OR [facility] Right: Chest CR BARD : PERIPHERAL VASCULAR [id number] 05/17/2025 [id number] / / [id number] documented as of this encounter Visit Diagnoses [...] Primary documented in this encounter Care Teams Sap Sd Analyst Relationship Specialty Start Date End Date Malinda Owens CRNP [address] [place] [address] PCP - General Nurse Practitioner 09/20/23 documented as of this encounter
--- OUTSIDE RECORDS SUMMARY | 2024-09-05 14:41 | External Medical Summary | Summary of Care ---
Author Name Unknown Organization [facility] Address [address] [place] [address] Phone [phone] Care Team Providers Care Radiotelegrapher Name Role Phone Malinda Owens Primary Care Provider [phone] Reason for Visit * Reason Onset Date Comments Billing Questions 05/07/2024 Encounter Details Date Type Department Care Team (Late st Contact Info) Description 05/07/2024 Telephone [facility] [address] [place] [address] Lilia Marques PA-C [address] [place] [address] Billing Questions Allergies No known active allergiesdocumented [...] and class I obesity. Per review of HIGHWAY WORKER documentation of 09/25/23, blood glucose values [...] Recommend nutrition consult with RDN (Registered Dietitian Office Services Coordinator). Lifestyle changes are also indicated including [...] and folate levels and referral to a rug dyer. If hemoglobin levels are below 8 g/dl, we recommend Maternal Medicine ultrasound for growth every 4 weeks after 24 weeks. Consider a blood transfusion if hemoglobin levels fall below 6 g/dL. ([employer] Obstetricians and Wood Tile Installation Helper Practice Bulletin Number 95, December,). Consider Venofer [...] money to get more. Never true 03/26/2024 [place] Depression Scale Answer Date Recorded [place] Depression Scale Total 6 12/11/2023 The thought [...] No 03/26/2024 Does the household have a [facility] source of income? 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 Please contact pt & update notes in snapshot. Please sign encounter to close phone message. Copy in chart documented in this encounter Plan of Treatment Upcoming Encounters Date Type Department Care Team (Late st Contact Info) Description 05/16/2024 9:10 AM EST Laboratory Laboratory [place] [address] [place] [phone] [place], Lab Scenery [address] [facility] [place], [place] [address] 05/16/2024 10:00 AM EST Hem/Onc Treatment Hematology/Oncology Treatment, [place] 200 [facility] [place], [place] [address] [place], Chair 2 Hem Onc Scen[address] [place] [address] 05/22/2024 9:10 AM EST [facility] [place] [address] [place] [address] [place], Lab Scenery [address] [place], [place] [address] 05/22/2024 9:30 AM EST Office Visit Hematology/Oncology [facility] [place] [address] [place] [phone] Gabby [facility]avala CRNP [facility] [address] 05/22/2024 10:00 AM EST Hem/Onc Treatment Hematology/Oncology Treatment, [place] 200 [facility], [place] [address] [place], Chair 4 Hem Onc [address] [address] [place], [place] [address] 05/29/2024 9:30 AM EST Laboratory [facility] [place] [address] [place] [phone] [place], Lab Scenery [address] [place] [address] 05/29/2024 10:30 AM EST Hem/Onc Treatment Hematology/Oncology Treatment, [place] [address] [place] [address] [place], Chair 9 Hem Onc [place] [address] [place] [address] 08/06/2024 9:00 AM EST Telemedicine Genetics [facility]c, [facility] [address] [place] [address] Estephania Reyes, [place] [address] [place] [address] Health Maintenance Due Date Last Done Comments [...] this encounter Medical Devices Implanted Type Area Kit Planner Device Identifier Shelf Expiration Date Model / Serial / Lot Therese Angulo 4fr 11cm - [id number] Implanted:Qty : 1 on 02/08/2024 [facility] [id number] 08/16/2028 6546 / / [id number] Port Implant W8f Poly Cath - [id number] Implanted:Qty : 1 on 05/02/2024 by Iam Curry MD at [facility] Right: Chest CR BARD : PERIPHERAL VASCULAR [id number] 05/17/2025 [id number] / / [id number] documented as of this encounter Care Teams Radiotelegrapher Relationship Specialty Start Date End Date Malinda Owens CRNP [address] [place] [address] PCP - General Nurse Practitioner 09/20/23 documented as of this encounter
--- OUTSIDE RECORDS SUMMARY | 2024-09-05 14:41 | External Medical Summary | Summary of Care ---
Author Name Unknown Organization [facility] Address [address] [place] [address] Phone [phone] Care Team Providers Care Electronics Parts Sales Representative Name Role Phone Malinda Owens Primary Care Provider Reason for Referral * Evaluate & Treat - Unlimited Visits (Within 24 hrs (call dept; emergent)) - Pending Review Specialty Diagnoses / Procedures Referred By Bennie gilliland Referred To Contact Obstetrics/Gynecology / Fertility Diagnoses Malignant neoplasm of upper-outer quadrant of left breast in female, estrogen receptor negative (HCC) Em Ng MD [address] [place] [address] [place] [address] Phone: tel: fax: Referral ID Status Reason Start Date Expiration Date Visits Requested Visits Authorized [id number] Pending Review Specialty Services Required 4 999 [...] Contact Info) Description 05/07/2024 Telephone Hematology/Oncology Treatment, [place] [address] [place] [address] Em Ng MD [address] [place] [address] [place] [phone] Referral Allergies No known active allergiesdocumented as [...] and class I obesity. Per review of BEEF CATTLE SPECIALIST documentation of 09/25/23, blood glucose values [...] Recommend nutrition consult with RDN (Registered Dietitian Refrigerated National Truck Driver). Lifestyle changes are also indicated including [...] and folate levels and referral to a electrical assistant. If hemoglobin levels are below 8 g/dl, we recommend Maternal Medicine ultrasound for growth every 4 weeks after 24 weeks. Consider a blood transfusion if hemoglobin levels fall below 6 g/dL. ([employer] Obstetricians and Advertising Designer Practice Bulletin Number 95, December,). Consider [...] money to get more. 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 Released in plan for patient to receive today. * Telephone Encounter - Yuli Gallagher RN [...] future children. Reached out to Dulce Dye- b[place]non at today at 2:30pm. Called patient, she accepted appt. Referral placed. TT sent to Dr Gurrola. Will need to follow up with patient after fertility appt to see what she wants to do about chemo. documented in this encounter Plan of Treatment Upcoming Encounters Date Type Department Care Team (Late st Contact Info) Description 05/22/2024 9:10 AM EST Laboratory Laboratory [place] [address] [place] [phone] [place], Lab Scenery [address] [place] [address] 05/22/2024 9:30 AM EST Office Visit Hematology/Oncology [facility] [address] [place], [place] [phone] Gabby Zavala CRNP 400 [facility] [place] [address] 05/22/2024 10:00 AM EST Hem[facility] 200 [facility], [place] [address] [place], Chair 4 Hem Onc [facility] 200 [facility] [place], [place] [address] 05/29/2024 9:30 AM EST Laboratory Laboratory [facility] [address] [place] [phone] [place], Lab Scenery 200 [facility] [place], [place] [address] 05/29/2024 10:30 AM EST Hem[facility]c [facility] 200 [facility], [place] [phone] [place], Chair 9 Hem Onc [facility] 200 [facility] [place], [place] [address] 08/06/2024 9:00 AM EST Telemedicine Genetics [facility], [facility] [address] [place] [address] Estephania Reyes, [place] [address] [place] [address] Scheduled Referrals Name Type Priority Associated Diagnoses [...] this encounter Medical Devices Implanted Type Area Smelter Charger Device Identifier Shelf Expiration Date Model / Serial / Lot Stent Angulo 4fr 11cm - [id number] Implanted:Qty : 1 on 02/08/2024 by Jeffrey Kerr MD at OR [facility] [employer] [id number] 08/16/2028 6546 / / [id number] Port Implant W8f Poly Cath - [id number] Implanted:Qty : 1 on 05/02/2024 by Iam Curry MD at OR [facility] Right: Chest CR BARD : PERIPHERAL VASCULAR [id number] 05/17/2025 [id number] / / [id number] documented as of this encounter Visit Diagnoses [...] Primary documented in this encounter Care Teams Electronics Parts Sales Representative Relationship Specialty Start Date End Date Malinda Owens CRNP [address] [place] [address] PCP - General Nurse Practitioner 09/20/23 documented as of this encounter
--- OUTSIDE RECORDS SUMMARY | 2024-09-05 14:41 | External Medical Summary | Summary of Care ---
Author Name Unknown Organization [facility] Address [address] [place] [address] Phone [phone] Care Team Providers Care Health Information Specialist Name Role Phone Malinda Owens Primary Care Provider [phone] Reason for Visit * Reason Onset Date Comments Billing Questions 05/07/2024 Encounter Details Date Type Department Care Team (Late st Contact Info) Description 05/07/2024 Telephone [facility] [address] [place] [address] Lilia Marques PA-C [address] [facility] [place] [address] Billing Questions Allergies No known active allergiesdocumented [...] complete. Enrolled in Current Health. Plans to citrus picker meter from pharmacy today. Instructions provided [...] and class I obesity. Per review of 3D TECHNOLOGIST documentation of 09/25/23, blood glucose values have [...] Recommend nutrition consult with RDN (Registered Dietitian Ichthyologist). Lifestyle changes are also indicated including optimizing [...] and folate levels and referral to a toe laster. If hemoglobin levels are below 8 g/dl, we recommend Maternal Medicine ultrasound for growth every 4 weeks after 24 weeks. Consider a blood transfusion if hemoglobin levels fall below 6 g/dL. (Citizen Of [place] College Obstetricians and Electromechanical Assembly Technician Practice Bulletin Number 95, December,). Consider [...] money to get more. Never true 03/26/2024 Wood[place] Depression Scale Answer Date Recorded Wood[place] Depression Scale Total 6 12/11/2023 The thought [...] No 03/26/2024 Does the household have a scheurer hospitalr source of income? (Household - for [...] 1:39 PM EST Infertility WorkSheet sent to [facility]. Please contact pt & update notes in snapshot. Please sign encounter to close phone message. Copy in chart documented in this encounter Plan of Treatment Upcoming Encounters Date Type Department Care Team (Late st Contact Info) Description 05/16/2024 9:10 AM EST Laboratory Laboratory [facility] [place] [address] [place] [phone] [place], Lab Scenery [address] [facility] [place], [place] [address] 05/16/2024 10:00 AM EST Hem/Onc Treatment Hematology/Oncology Treatment, [place] [address] [facility] [place], [place] [phone] [place], Chair 2 Hem Onc Scenery [address] [place] [address] 05/22/2024 9:10 AM EST Laboratory Laboratory [facility] [place] [address] [place] [address] [place], Lab Scenery [address] [place], [place] [address] 05/22/2024 9:30 AM EST Office Visit Hematology/Oncology [facility] [place] [address] [place] [phone] Gabby [facility]avala [facility] [address] 05/22/2024 10:00 AM EST Hem/Onc Treatment Hematology/Oncology Treatment, [place] [address] [facility], [place] [phone] [place], Chair 4 Hem Onc Scenery [address] [place], [place] [address] 05/29/2024 9:30 AM EST Laboratory Laboratory [facility] [place] [address] [place] [phone] [place], Lab Scenery [address] [place] [address] 05/29/2024 10:30 AM EST Hem/Onc Treatment Hematology/Oncology Treatment, [place] [address] [place] [address] [place], Chair 9 Hem Onc Scenery [address] [place] [address] 08/06/2024 9:00 AM EST Telemedicine Genetics HemOnc, [facility] [address] [place] [address] Estephania Reyes, MS [address] [place] [address] Health Maintenance Due Date Last Done Comments [...] this encounter Medical Devices Implanted Type Area Sweater Operator Device Identifier Shelf Expiration Date Model / Serial / Lot Therese Angulo 4fr 11cm - [id number] Implanted:Qty : 1 on 02/08/2024 by [facility] [id number] 08/16/2028 [id number] / / [id number] Port Implant W8f Poly Cath - [id number] Implanted:Qty : 1 on 05/02/2024 by Iam Curry MD at [facility] Right: Chest CR BARD : PERIPHERAL VASCULAR [id number] 05/17/2025 [id number] / / [id number] documented as of this encounter Care Teams Health Information Specialist Relationship Specialty Start Date End Date Malinda Owens CRNP [address] [place] [address] PCP - General Nurse Practitioner 09/20/23 documented as of this encounter
--- OUTSIDE RECORDS SUMMARY | 2024-09-05 14:41 | External Medical Summary ---
Author Name Unknown Address Unknown Organization K09:[facility] [address] [place] [address] Laboratory Report Ordering Provider Test Date Status LISE JAVIER 05/16/2024 08:57:11 Final Observation Date Value Abnormality Reference (Units ) Status SYNC LEUKOCYTES IN BLOOD BY AUTOMATED COUNT 05/16/2024 08:57:11 4.71 4.00-10.80 (K/uL) Final Segs 05/16/2024 08:57:11 37.4 Below low normal 40.0-75.0 (%) Final Lymphs % 05/16/2024 08:57:11 47.8 Above high normal 18.0-42.0 (%) Final Monos 05/16/2024 08:57:11 9.1 1.0-11.0 (%) Final Eosinophils 05/16/2024 08:57:11 5.3 0.0-6.0 (%) Final Basos 05/16/2024 08:57:11 0.4 0.0-2.0 (%) Final Absolute Segs 05/16/2024 08:57:11 1.76 Below low normal 1.80-7.70 (K/uL) Final Lymphs, absolute 05/16/2024 08:57:11 2.25 1.00-4.80 (K/ul) Final Monos, Abs 05/16/2024 08:57:11 0.43 0.00-1.10 (K/uL) Final Eos, Abs 05/16/2024 08:57:11 0.25 0.00-0.70 (K/uL) Final Basos, Abs 05/16/2024 08:57:11 0.02 0.00-0.20 (K/uL) Final Performing Location [facility] [address] [place] [address]
--- OUTSIDE RECORDS SUMMARY | 2024-09-05 14:41 | External Medical Summary | Summary of Care ---
Author Name Unknown Organization [facility] Address [address] [facility] [place] [address] Phone [phone] Care Team Providers Care Associate Store Manager Name Role Phone Malinda Owens Primary Care Provider [phone] Reason for Visit * Reason Comments Chemotherapy Follow Up 1st treatment Encounter Details Date Type Department Care Team (Late st Contact Info) Description 05/08/2024 9:00 AM EST Office Visit Hematology/Oncology [facility] [place] [address] [place] [address] Sydnee Ng MD [address] [facility] [place] [address] Malignant neoplasm of upper-outer quadrant of left breast in female, estrogen receptor negative (HCC)* Allergies No known active allergiesdocumented as of this encounter (statuses as of 05/13/2024) Medications 29-1 MG Oral Tablet Chewable Take [...] and class I obesity. Per review of LOBSTER MAN documentation of 09/25/23, blood glucose values have [...] Recommend nutrition consult with RDN (Registered Dietitian Yard Goods Salesperson). Lifestyle changes are also indicated including optimizing [...] and folate levels and referral to a television news video editor. If hemoglobin levels are below 8 g/dl, we recommend Maternal Medicine ultrasound for growth every 4 weeks after 24 weeks. Consider a blood transfusion if hemoglobin levels fall below 6 g/dL. ([place] [employer] Obstetricians and Nurse Practitioner Home Assessments Practice Bulletin Number 95, December,). Consider Venofer [...] money to get more. 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 Date of visit: 05/08/2024 Chief Complaint Patient presents with Chemotherapy Follow Up 1st treatment Subjective Yuli Gutierrez is a 29 year old female with Left Breast Cancer Clinical Stage 1 - T1N0, triple negative HPI: Yuli Gutierrez is a 29 year [...] with bloody nipple discharge or skin changes. The patient presents with her , [id number] as well as her mother for today's Medical Oncology consultation appointment on 04/24/2024. She has not had any previous breast imaging studies. Family history of breast cancer in maternal grandmother's sister - in her 30s. No genetic testing done in family. No family history of ovarian cancer. GYNECOLOGIC HISTORY: LMP: No LMP recorded. Menarche [...] with a container labeled with "Yuli Gutierrez", "[id number]", "1995" and " left breast 2/three o'clock [...] 12 cm from nipple, core biopsy (block [id number]): Invasive mammary carcinoma of no special type, grade 3. Estrogen Receptor (ER) protein expression is NEGATIVE <1% nuclear positivity COMMENT: Assay internal and external control immunoreactivity is appropriate. Progesterone Receptor (NM) protein expression is NEGATIVE <1% nuclear positivity COMMENT: Assay internal and external control immunoreactivity is appropriate. HER2 oncoprotein expression is NEGATIVE ( 0 average membranous intensity) PMH: Patient Active Problem List Diagnosis Encounter [...] breast in female, estrogen receptor negative (HCC) Current Outpatient Medications Medication Sig Dispense Refill 19 29-1 MG Oral Tablet Chewable Take by mouth. (Patient not taking: Reported on 04/07/2024) Ibuprofen 600 MG Oral Tablet (Motrin) Take 1 Tablet by mouth every 6 hours as needed (pain). (Patient not taking: Reported on 04/07/2024) No current facility-administered medications for this visit. Review of patient's allergies indicates: No Known Allergies Review of Systems Constitutional: Negative. HENT: Negative. Eyes: Negative. Respiratory: Negative. Cardiovascular: Negative. Gastrointestinal: Negative. Endocrine: Negative. Genitourinary: Negative. Skin: Negative. Allergic/Immunologic: Negative. Neurological: Negative. Hematological: Negative. Objective BP 108/64 (BP Site: Left Arm, BP Position: Sitting, BP Cuff Size: Regular) | Pulse 60 | Temp 36.7 C (98 F) (Tympanic) | Resp 18 | Wt 87.1 kg (192 lb) | SpO2 98% | BMI 28.35 kg/m | BSA 2.06 m Physical Exam Constitutional: Appearance: Normal appearance. HENT: Head: Normocephalic and atraumatic. Eyes: General: No scleral icterus. Extraocular Movements: Extraocular movements intact. Conjunctiva/sclera: Conjunctivae normal. Pupils: Pupils are equal, round, and reactive to light. Cardiovascular: Rate and Rhythm: Normal rate and regular rhythm. Heart sounds: No murmur heard. Pulmonary: Effort: Pulmonary effort is normal. Breath sounds: Normal breath sounds. Abdominal: General: Abdomen is flat. Bowel sounds [...] Content: Thought content normal. Judgment: Judgment normal. 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 She is scheduled to undergo bilateral breast MRI on 05/07/2024. Malignant neoplasm of upper-outer quadrant of left breast in female, estrogen receptor negative (HCC) (Primary) - PET CT SKULL BASE TO MID-THIGH FDG; Future; Expected date: 04/24/2024 - HCG QUALITATIVE, URINE; Future; Expected date: 04/24/2024 - CBC WITH WBC DIFFERENTIAL; Future; Expected date: 04/24/2024 - PT INR - COMPREHENSIVE METABOLIC PANEL; Future; Expected date: 04/24/2024 - CEA; Future; Expected date: 04/24/2024 - CA 27.29; Future; Expected date: 04/24/2024 - ECHO, COMPLETE (2D), TRANS-THORACIC; Future; Expected date: 04/24/2024 - IR VENOUS ACCESS MEDIPORT Need for prophylactic vaccination and inoculation against influenza - INFLUENZA VAC, TRIVALENT, (IIV3), PF, 0.5 ML (FLUZONE) PLAN OF CARE DISCUSSED WITH PATIENT ON 04/24/2024 : Labs today PET scan Echocardiogram Chemo education MRI breasts Mediport Follow-up: Return in about 2 weeks (around 05/08/2024). Chemo consent signed on 04/24/2024: CONSENT FOR ADMINISTRATION OF CHEMOTHERAPY Protocol: Pembrolizumab 200 mg D1 + Paclitaxel 80 mg/m D1, 8, 15 + Carboplatin AUC=5 D1 q21 Days x 12 Weeks, Followed by Pembrolizumab 200 mg + Doxorubicin + Cyclophosphamide q21 Days x 12 Weeks, Followed by Surgery I hereby consent to and request SYDNEE Nguyen [[id number]] and whoever he/she may designate as his/her human services assistant to administer to me chemotherapy in the form of PKS032: Pembrolizumab 200 mg D1 + Paclitaxel 80 mg/m D1, 8, 15 + Carboplatin AUC=5 D1 q21 Days x 12 Weeks, Followed by Pembrolizumab 200 mg + Doxorubicin + Cyclophosphamide q21 Days x 12 Weeks, Followed by Surgery. In giving such authorization, I hereby acknowledge that my attending physician, SYDNEE Nguyen [[id number]] has fully explained to my satisfaction, the nature and purpose of my cancer treatment, possible alternative methods of treatment, the risks involved, and the possibility of complications. I recognize that the treatment involves calculated risks of injury or and other complications from both known and unknown causes and no guarantee has been made to me regarding the results of the treatment, or the cure of any existing conditions, disease or illness. I have understood the information provided by the doctor, and have had the opportunity to ask questions concerning the treatment, and any alternative treatment. I have been informed of the option of receiving no treatment and the potential outcomes associated with that option. The drugs used in the treatment programs may have any, all, or none of the following side effects: nausea and vomiting, lowering of the hemoglobin, white blood count and/or platelet count with an increased risk of infection or bleeding. In addition, any, all, or none of the following toxicities might be encountered: hair loss, sore mouth and throat, diarrhea, numbness and tingling of the fingers and feet, muscular weakness. Also, several of the agents used may cause pain and local swelling withinflammation at the site of injection if the medication leaks outside the vein. In addition, on very rare occasions, a patient may experience severe reactions to the drugs or damage to vital organs. The additional side effects that may be encountered with your specific treatment program are: Nausea/Vomiting, Fatigue, Risk of bleeding, Diarrhea, Skin effects, Nerve effects, Heart effects, Kidney/bladder effects, Lung effects, Mouth sores, Constipation, Risk of infection, Low red blood count/Anemia Also, there is always the risk of very uncommon and previously unknown side effects occurring. My physician will be monitoring me closely for any of the above side effects. Reproductive risks: Because the chemotherapy can affect an unborn baby, you should not become or father a child while on this treatment. You should not nurse your baby while on this treatment. All patients who can become or who are sexually active must use one of the following control measures while receiving chemotherapy or have their sexual partners use such measures: condoms, diaphragm, control pills, injections, intrauterine device (IUD), surgical sterilization, subcutaneous implants, and abstinence. The patient verbalized understanding and agreement with the above plan of care. Sydnee Ng MD Hematology/Oncology [address] [address] PAST MEDICAL HISTORY: Past Medical History: Diagnosis Date History of gestational diabetes Motion sickness Lap cholecystectomy with Dr. Jade followed by ERCP/ stent placed (which should pass on its own) PAST SURGICAL HISTORY: Past Surgical History: Procedure Laterality Date DENTAL SURGERY PROCEDURE NEC Age 12 ERCP, DIAGNOSTIC, SPECIMEN COLLECTION N/A 02/08/2024 choledocholithiasis, complete removal/one plastic pancreatic stent placed into ventral pancreatic duct/ENDOSCOPIC RETROGRADE CHOLANGIOPANCREATOGRAPHY (ERCP) DIAGNOSTIC performed by Jeffrey Kerr MD at OR [facility] US GUIDED BREAST BIOPSY LEFT Left 04/15/2024 CURRENT OUTPATIENT PRESCRIPTIONS: Current Outpatient Medications Medication Sig Dispense Refill 19 29-1 MG Oral Tablet Chewable Take by mouth. (Patient not taking: Reported on 04/07/2024) Ibuprofen 600 MG Oral Tablet (Motrin) Take 1 Tablet by mouth every 6 hours as needed (pain). (Patient not taking: Reported on 04/07/2024) No current facility-administered medications for this visit. ALLERGIES: Allergies as of 04/22/2024 (No Known Allergies) SOCIAL HISTORY: Social History Tobacco Use Smoking status: Never Smokeless tobacco: Never Substance Use Topics Alcohol use: Not Currently Vaping/E-Cigarette Use Vaping/E-Cigarette Substances Vaping/E-Cigarette Devices ROS: GEN: no weight loss, fever, fatigue HEENT: no changes in vision or hearing, no sinus problems, no sore throat, no hoarseness RESPIRATORY: no cough, wheezing, SOB or change in breathing CARDIOVASCULAR: no exertional chest pain, dyspnea, palpitations GI: no melena, hemetemesis, no vomiting or diarrhea : no dysuria, hematuria, frequency MUSCULOSKELETAL: no change in joint pains, no new arthritis PSYCHIATRIC: no significant anxiety or depression, unchanged sleep pattern HEME: no bleeding tendency, no clotting tendency NEURO: no significant headache, no seizures , no tremors SKIN: no new rashes, no itching Did have a series of CT scans of her chest at the time of her gallstone issues PHYSICAL EXAMINATION: Blood pressure 106/59, pulse 53, temperature 36.2 C (97.1 F), weight 87.7 kg (193 lb 4.8 oz), currently . Constitutional: alert, healthy Head: normocephalic, atraumatic Eyes: conjunctiva non-injected, sclera white Ears: pinna normal shape and color Neck: supple, no adenopathy Lungs: clear to auscultation, breath sounds are equal and symmetric Heart: regular rate & rhythm and no murmur, gallops or rubs Abdomen: soft, non-tender Back: normal curvature Extremities: no edema Neuro: alert, gait normal, motor normal BREAST EXAMINATION: Right Breast: Right Breast: Masses [...] supraclavicular adenopathy: No Previous axillary incision: No IMPRESSION: 29 yr old woman with newly diagnosed left 18 mm triple negative high grade invasive breast cancer found on self exam. Extremely dense tissue on mammography. We discussed the need for further imaging - MRI scan bilaterally given extremely dense breast tissue on mammogram and genetic testing to test for genetic mutation. Should she carry a genetic mutation, this can affect her risk of local recurrence and help desk team leader in the decision for breast conservation vs mastectomy. Given that this is a triple negative breast cancer, it is likely that she will require chemotherapy. Discussed the potential benefit of doing this in a neoadjuvant fashion - it will give more time toget the above testing completed, should allow for shrinkage of the tumor to improve cosmetic result, and allows for in vivo assessment of the tumor's response to chemotherapy. We also talked about surgical treatment options. She would be a candidate for a lumpectomy either pre or post chemotherapy depending on above testing. Reviewed that there is equivalent survival benefit between mastectomy and breast conservation. The largest difference is the risk of local recurrence - this is under 5% with mastectomy as some breast tissue is left to support the skin vs 10-15% with breast conserving therapy. Importance of radiation therapy to breast to complete local treatment discussed. Risks of bleeding, infection, cosmetic deformity of the breast, seroma formation, chronic discomfort, and scar all discussed. Should we proceed to surgery now, she would not need a marina awning spreader placement as the tumor is palpable (will do specimen radiograph). Should she undergo chemo upfront, will plan on marina awning spreader placement if the lesion is no longer palpable. We reviewed that bilateral mastectomies or unilateral mastectomy with or without reconstruction canalso be chosen depending on patient preference or can be recommended pending the above testing results. We discussed that reconstruction is generally done in two stages with a temporary tissue wire technician placed initially followed by a final reconstruction with implant or a flap based procedure later.Should she be thinking about this as an option, we discussed plastic surgery referral to help her know her reconstructive choices. We discussed sentinel lymph node biopsy with identification of the nodes with both blue dye (risks of tattooing of skin) and technetium sulfur colloid. Removal of 2-4 nodes with a small (<8%) riskof lymphedema was reviewed. This procedure would be done at the same time as the breast procedure. Expected same day nature of the surgery and 2 week recovery period discussed. As she is nursing, advised to pump/ dump from left cancerous side. OK to use vaginal estrogen creamas prescribed by medical billing manager for vaginal dryness/ dyspareunia. PLAN: Genetic counseling/ testing Medical oncology consult - scheduled for Bilateral breast MRI Pending above, tentative left lumpectomy and sln biopsy after neoadjuvant chemo. PMH: Patient Active Problem List Diagnosis Encounter [...] BMI 29.48 kg/m | BSA 2.1 m ASSESSMENT/PLAN: Malignant neoplasm of upper-outer quadrant of left breast in female, estrogen receptor negative (HCC) (Primary) - NEW SUPPORTIVE CARE PLAN Follow Up: Return in about 1 week (around 05/15/2024) for AUTOMOBILE SERVICE ADVISOR/PA/SHAYY follow up. | For: AUTOMOBILE SERVICE ADVISOR/PA/SHAYY follow up | Check-out note: Start chemo 05/08/2024 with Keytruda+carbo+Taxol Will try to get Lupron approved to be given today if possible Return to see AUTOMOBILE SERVICE ADVISOR in 1 week for post chemo follow up and to receive day 8 of cycle 1 chemo See me on day 1 cycle 2 chemo in 3 weeks Sydnee Ng MD documented in this encounter Nursing Notes * Em Caballero, BRIGHT ASSIST - 05/08/2024 8:59 AM EST Patient identifed [...] Description 05/16/2024 9:10 AM EST Laboratory Laboratory [facility] [place] [address] [place] [phone] [place], Lab Scenery [address] [place] [address] 05/16/2024 10:00 AM EST Hem/Onc Treatment Hematology/Oncology Treatment, [place] [address] [place] [phone] [place], Chair 2 Hem Onc Scenery [address] [place] [address] 05/22/2024 9:10 AM EST Laboratory Laboratory [facility] [place] [address] [place] [address] [place], Lab Scenery [address] [place] [address] 05/22/2024 9:30 AM EST Office Visit Hematology/Oncology [facility] [place] [address] [place] [phone] Gabby Zavala CRNP [address] [place], [place] [address] [address] 05/22/2024 10:00 AM EST Hem/Onc Treatment Hematology/Oncology Treatment, [place] 200 [place] [phone] [place], Chair 4 Hem Onc Scenery 200 [facility] [place] [address] 05/29/2024 9:30 AM EST Laboratory Laboratory [facility] 200 [facility] [place], [place] [phone] [place], Lab Scenery 200 [facility] [place] [facility] [place] [address] 05/29/2024 10:30 AM EST Hem/Onc Treatment Hematology/Oncology Treatment, [place] 200 [facility] [phone] [place], Chair 9 Hem Onc Scenery 200 [facility] [place] [address] 08/06/2024 9:00 AM EST Telemedicine Genetics [facility], [facility] [address] [place] [address] Estephania Reyes, CT [address] [place] [address] Health Maintenance Due Date Last [...] this encounter Medical Devices Implanted Type Area Sports Book Writer Device Identifier Shelf Expiration Date Model / Serial / Lot Stent Angulo 4fr 11cm - [id number] Implanted:Qty : 1 on 02/08/2024 by Jeffrey Kerr MD at OR [facility] [employer] [id number] 08/16/2028 [id number] / / [id number] Port Implant W8f Poly Cath - [id number] Implanted:Qty : 1 on 05/02/2024 by Iam Curry MD at OR [facility] Right: Chest CR BARD : PERIPHERAL VASCULAR [id number] 05/17/2025 [id number] / / [id number] documented as of this encounter Visit Diagnoses [...] Primary documented in this encounter Care Teams Associate Store Manager Relationship Specialty Start Date End Date Malinda Owens CRNP [address] [place] [address] PCP - General Nurse Practitioner 09/20/23 documented as of this encounter
--- OUTSIDE RECORDS SUMMARY | 2024-09-05 14:41 | External Medical Summary ---
Author Name Unknown Address Unknown Organization K09:[facility] [place] [address] Laboratory Report Ordering Provider Test Date Status LISE JAVIER 05/16/2024 08:57:28 Final Observation Date Value Abnormality Reference (Units ) Status Screen, Urine 05/16/2024 08:57:28 Negative Negative Final Performing Location [facility] [place] [address]
--- OUTSIDE RECORDS SUMMARY | 2024-09-05 14:41 | External Medical Summary ---
Author Name Unknown Address Unknown Organization K09:[facility] [address] [place] [address] Laboratory Report Ordering Provider Test Date Status LISE JAVIER 05/16/2024 08:57:11 Final Observation Date Value Abnormality Reference (Units ) Status BUN 05/16/2024 08:57:11 15 6-20 (mg/dL) Final Creatinine 05/16/2024 08:57:11 0.9 0.5-1.0 (mg/dL) Final Glomerular filtration rate/1.73 sq M.predicted [Volume Rate/Area] in Serum, Plasma or Blood by Creatinine-based formula (CKD-EPI) 05/16/2024 08:57:11 84 >=60 (mL/min) Final eGFR is calculated based on the CKD-EPI 2020 equation. Sodium 05/16/2024 08:57:11 142 135-146 (m mol/L) Final Potassium 05/16/2024 08:57:11 4.7 3.5-5.1 (m mol/L) Final Cl 05/16/2024 08:57:11 105 98-107 (mm ol/L) Final CO2 05/16/2024 08:57:11 24 22-32 (mmo l/L) Final Anion gap 05/16/2024 08:57:11 13 7-15 (mmol /L) Final Glucose 05/16/2024 08:57:11 79 70-120 (mg /dL) Final Albumin 05/16/2024 08:57:11 4.3 3.8-5.0 (g /dL) Final AST (Aspartate aminotransferase) 05/16/2024 08:57:11 13 10-35 (U/L) Final Alk Phos 05/16/2024 08:57:11 91 35-130 (U/ L) Final Bilirubin, Total 05/16/2024 08:57:11 0.4 <=1 .2 (mg/dL) Final Calcium 05/16/2024 08:57:11 9.5 8.4-10.2 ( mg/dL) Final Protein 05/16/2024 08:57:11 7.3 6.0-8.3 (g /dL) Final ALT (Alanine aminotransferase) 05/16/2024 08:57:11 16 10-35 (U/L) Final Performing Location [facility] [address] [place] [address]
--- OUTSIDE RECORDS SUMMARY | 2024-09-05 14:41 | External Medical Summary ---
Author Name Unknown Address Unknown Organization K09:[facility] [place] [address] Laboratory Report Ordering Provider Test Date Status LISE JAVIER 05/16/2024 08:57:11 Final Observation Date Value Abnormality Reference (Units ) Status Nucleated erythrocytes/100 leukocytes [Ratio] in Blood by Automated count 05/16/2024 08:57:11 Final Variant lymphocytes [Presence] in Blood by Light microscopy 05/16/2024 08:57:11 Present Abnormal None Seen Final Performing Location [facility] [place] [address]
--- OUTSIDE RECORDS SUMMARY | 2024-09-05 14:41 | External Medical Summary | Summary of Care ---
Author Name Unknown Organization [facility] Address [address] [place] [address] Phone [phone] Care Team Providers Care Pest Technician Name Role Phone OwensMalinda AD Primary Care Provider [phone] Encounter Details Date Type Department Care Team (Late st Contact Info) Description 05/13/2024 Orders Only Hematology/Oncology Treatment, [place] [address] [place] [address] Em Ng MD [address] [facility] [place] [address] Allergies No known active allergiesdocumented as of [...] in Current Health. 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 Instructions provided [...] and class I obesity. Per review of RIPSHEAR OPERATOR documentation of 09/25/23, blood glucose values [...] Recommend nutrition consult with RDN (Registered Dietitian Electrical Sign Wirer Helper). Lifestyle changes are also indicated including [...] folate levels and referral to a jewelry internship. If hemoglobin levels are below 8 g/dl, we recommend Maternal Medicine ultrasound for growth every 4 weeks after 24 weeks. Consider a blood transfusion if hemoglobin levels fall below 6 g/dL. ([employer] Rescue Instructor Practice Bulletin Number 95, December,). Consider [...] money to get more. Never true 03/26/2024 [place] Depression Scale Answer Date Recorded [place] Depression Scale Total 6 12/11/2023 The thought [...] Description 05/16/2024 9:10 AM EST Laboratory Laboratory [facility] [place] [address] [place] [phone] [place], Lab [facility] [address] [place] [address] 05/16/2024 10:00 AM EST Hem/Onc Treatment Hematology/Oncology Treatment, [place] [address] [place] [phone] [place], Chair 2 Hem Onc [place] [address] [place] [address] 05/22/2024 9:10 AM EST Laboratory Laboratory [facility] [address] [place], [place] [address] [place], Lab [address] [place], [place] [address] 05/22/2024 9:30 AM EST Office Visit Hematology/Oncology [facility] [address] [place], [place] [phone] Gabby Zavala CRNP [address] [place] [address] 05/22/2024 10:00 AM EST Hem/Onc Treatment Hematology/Oncology Treatment, [address], [place] [phone] [place], Chair 4 Hem Onc [address] [facility] [place], [place] [address] 05/29/2024 9:30 AM EST Laboratory Laboratory [facility] [address] [place], [place] [phone] [place], Lab [address] [facility] [place], [place] [address] 05/29/2024 10:30 AM EST Hem/Onc Treatment Hematology/Oncology Treatment, [address], [place] [phone] [place], Chair 9 Hem Onc [address] 200 [facility] [place], [place] [address] 08/06/2024 9:00 AM EST Telemedicine Genetics HemOnc, [facility] [address] [place] [address] Estephania Reyes, MS [address] [place] [address] Health Maintenance Due Date Last [...] this encounter Medical Devices Implanted Type Area International Nurse Device Identifier Shelf Expiration Date Model / Serial / Lot Stent Angulo 4fr 11cm - [id number] Implanted:Qty : 1 on 02/08/2024 by Jeffrey Kerr MD at OR [facility] [employer] [id number] 08/16/2028 [id number] / / [id number] Port Implant W8f Poly Cath - [id number] Implanted:Qty : 1 on 05/02/2024 by Iam Curry MD at OR [facility] Right: Chest CR BARD : PERIPHERAL VASCULAR [id number] 05/17/2025 [id number] / / [id number] documented as of this encounter Care Teams Pest Technician Relationship Specialty Start Date End Date Malinda Owens CRNP [address] [place] [address] PCP - General Nurse Practitioner 09/20/23 documented as of this encounter
--- OUTSIDE RECORDS SUMMARY | 2024-09-05 14:41 | External Medical Summary | Summary of Care ---
Author Name Unknown Organization [facility] Address [address] [place] [address] Phone [phone] Care Team Providers Care Shutdown Coordinator Name Role Phone Malinda Owens Primary Care Provider [phone] Reason for Visit * Reason Comments Outpatient Testing Encounter Details Date Type Department Care Team (Late st Contact Info) Description 05/16/2024 9:10 AM EST Laboratory Laboratory [facility] [address] [place] [phone] [facility] 200 [facility] [place] [address] Malignant neoplasm of upper-outer quadrant of left [...] Enrolled in Current Health. Plans to cotton picker meter from pharmacy today. Instructions provided [...] and class I obesity. Per review of TREATING PLANT PUMPER documentation of 09/25/23, blood glucose values have [...] Recommend nutrition consult with RDN (Registered Dietitian Mandarin Speaking Nanny). Lifestyle changes are also indicated including optimizing [...] and folate levels and referral to a parking enforcement technician. If hemoglobin levels are below 8 g/dl, we recommend Maternal Medicine ultrasound for growth every 4 weeks after 24 weeks. Consider a blood transfusion if hemoglobin levels fall below 6 g/dL. ([employer] and Television Service Engineer Practice Bulletin Number 95, December,). Consider [...] money to get more. Never true 03/26/2024 [place] Depression Scale Answer Date Recorded [place] Depression Scale Total 6 12/11/2023 The thought [...] Team (Late st Contact Info) Description 05/16/2024 10:00 AM EST Hem/Onc Treatment Hematology/Oncology Treatment, [place] [address] [place] [phone] [place], Chair 2 Hem Onc [address] [place] [address] Arrived 05/22/2024 9:10 AM EST Laboratory Laboratory [address] [place] [address] [place] [phone] [place], Lab [address] [place] [address] 05/22/2024 9:30 AM EST Office Visit Hematology/Oncology [facility] [address] [facility] [place], [place] [phone] Gabby Zavala CRNP [address] [facility] [place] [address] 05/22/2024 10:00 AM EST [facility] [address] [facility], [place] [address] [place], Chair 4 Hem Onc [facility] 200 [facility] [place], [place] [address] 05/29/2024 9:30 AM EST Laboratory Laboratory [facility] 200 [facility] [place], [place] [phone] [place], Lab [facility] [address] [facility] [place], [place] [address] 05/29/2024 10:30 AM EST [facility] 200 [facility], [place] [phone] [place], Chair 9 Hem Onc [facility] [address] [facility] [place], [place] [address] 08/06/2024 9:00 AM EST Telemedicine Genetics [facility], [facility] [address] [place] [address] Estephania Reyes, [place] [address] [place] [address] Pending Results Name Type Priority Associated Diagnoses Date /Time CBC WITH WBC DIFFERENTIAL Lab STAT Malignant neoplasm of upper-outer quadrant of left breast in female, estrogen receptor negative (HCC) 05/16/2024 8:57 AM EST COMPREHENSIVE METABOLIC PANEL Lab STAT Malignant neoplasm of upper-outer quadrant of left breast in female, estrogen receptor negative (HCC) 05/16/2024 8:57 AM EST CBC Lab STAT Malignant neoplasm of upper-outer quadrant of left breast in female, estrogen receptor negative (HCC) 05/16/2024 8:57 AM EST DIFFERENTIAL, AUTOMATED Lab STAT Malignant neoplasm of upper-outer quadrant of left breast in female, estrogen receptor negative (HCC) 05/16/2024 8:57 AM EST HCG QUALITATIVE, URINE Lab STAT Malignant neoplasm of upper-outer quadrant of left breast in female, estrogen receptor negative (HCC) 05/16/2024 8:57 AM EST Health Maintenance Due Date Last [...] this encounter Medical Devices Implanted Type Area Advertising Analyst Device Identifier Shelf Expiration Date Model / Serial / Lot Stent Angulo 4fr 11cm - [id number] Implanted:Qty : 1 on 02/08/2024 by Jeffrey Kerr MD at OR [facility] [employer] [id number] 08/16/2028 [id number] / / [id number] Port Implant W8f Poly Cath - [id number] Implanted:Qty : 1 on 05/02/2024 by Iam Curry MD at OR [facility] Right: Chest CR BARD : PERIPHERAL VASCULAR [id number] 05/17/2025 [id number] / / [id number] documented as of this encounter Visit Diagnoses [...] (HCC) documented in this encounter Care Teams Shutdown Coordinator Relationship Specialty Start Date End Date Malinda Owens CRNP [address] [place] [address] PCP - General Nurse Practitioner 09/20/23 documented as of this encounter
--- OUTSIDE RECORDS SUMMARY | 2024-09-05 14:41 | External Medical Summary ---
Author Name Unknown Address Unknown Organization K09:[facility] [place] [address] Laboratory Report Ordering Provider Test Date Status LISE JAVIER 05/16/2024 08:57:11 Final Observation Date Value Abnormality Reference (Units ) Status WBC, Total 05/16/2024 08:57:11 4.71 4.00-10.8 0 (K/uL) Final RBC 05/16/2024 08:57:11 3.58 3.85-5.15 (M/uL) Final Hemoglobin 05/16/2024 08:57:11 11.5 Below low normal 12 .0-15.3 (g/dL) Final HCT 05/16/2024 08:57:11 35.0 Below low normal 36. 0-45.2 (%) Final MCV 05/16/2024 08:57:11 97.8 81.5-97.5 (fL) Final MCH 05/16/2024 08:57:11 32.1 27.0-34.0 (pg) Final MCHC 05/16/2024 08:57:11 32.9 32.0-36.0 (g/dL) Final RDW 05/16/2024 08:57:11 11.9 11.5-15.5 (%) Final Platelets 05/16/2024 08:57:11 207 140-400 (K /uL) Final MPV 05/16/2024 08:57:11 9.8 6.6-11.1 ( fL) Final Performing Location [facility] [place] [address]
--- OUTSIDE RECORDS SUMMARY | 2024-09-05 14:42 | External Medical Summary | Summary of Care ---
Author Name Unknown Organization [facility] Address [address] [place] [address] Phone [phone] Care Team Providers Care Agent Licensing Clerk Name Role Phone Malinda Owens AD Primary Care Provider [phone] Reason for Visit * Reason Onset Date Comments Imaging Records Request 05/09/2024 Encounter Details Date Type Department Care Team (Late st Contact Info) Description 05/09/2024 Telephone Radiology Film File [address] [place] [address] Support, Imaging Radiology [address] [place] [address] Imaging Records Request Allergies No known active allergiesdocumented as of this encounter (statuses as of 05/09/2024) Medications 29-1 MG Oral Tablet Chewable Take [...] Additional Information Patient not taking.Reported on 05/02/2024 dexAMETHasone 4 MG Oral Tablet (Decadron)Indicati ons:Malignant [...] 07, 2024. 24 Tablet 05/07/20 24 024 Active Prochlorperazine Maleate 10 MG Oral Tablet (Compazine)Indicat ions:Malignant neoplasm of upper-outer quadrant of left breast in female, estrogen receptor negative (HCC),Encounter for antineoplastic chemotherapy,Encou nter for prevention of neutropenia due to chemotherapy Take 1 Tablet by mouth every 6 hours as needed for Nausea. Do not start before May 06, 2024. 30 Tablet 5 05/06/20 24 Active OLANZapine 10 MG Oral Tablet (zyPREXA)Indicatio ns:Malignant neoplasm of upper-outer quadrant of left breast in female, estrogen receptor negative (HCC),Encounter for antineoplastic chemotherapy,Encou nter for prevention of neutropenia due to chemotherapy Take 1 Tablet by mouth at bedtime for 4 days. On days 1, 2, 3, and 4 of chemo. Do not start before May 06, 2024. 16 Tablet 05/06/20 24 024 Active Lidocaine-Prilocai ne 2.5-2.5 % External Cream [...] as of this encounter (statuses as of 05/09/2024) Active Problems Problem Noted Date Diagnosed Date [...] and class I obesity. Per review of BLOCK SEALER documentation of 09/25/23, blood glucose values have [...] Recommend nutrition consult with RDN (Registered Dietitian Scraper Loader Operator). Lifestyle changes are also indicated including [...] and folate levels and referral to a specialized language instructor. If hemoglobin levels are below 8 g/dl, we recommend Maternal Medicine ultrasound for growth every 4 weeks after 24 weeks. Consider a blood transfusion if hemoglobin levels fall below 6 g/dL. ([employer]st[employer] and Fittings Tightener Practice Bulletin Number 95, December,). Consider Venofer [...] as of this encounter (statuses as of 05/09/2024) Resolved Problems Problem Noted Date Diagnosed Date Resolved Date Abnormal glucose tolerance i n mother complicating 04/19/2023 08/31/2023 Overview (04/19/2023): Failed early glucola. 3hr GTT ordered documented as of this encounter (statuses as of 05/09/2024) Immunizations Name Administration Dates Next Due DTP [...] money to get more. 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 [place] Authorization to Release on file. Images pushed to [facility] Life Image external connection through PACs Associated report(s) not needed. documented in this encounter Plan of Treatment Upcoming Encounters Date Type Department Care Team (Late st Contact Info) Description 05/12/2024 10:00 AM EST Office Visit [facility] [address] [place] [address] Malinda Owens CRNP [address] [place] [address] 05/16/2024 9:10 AM EST Laboratory Laboratory [facility] [place] [address] [place] [address] [place] Lab Scenery [address] [facility] [place] [address] 05/16/2024 10:00 AM EST Hem/Onc Treatment Hematology/Oncology Treatment, [place] [address] [place] [address] [place], Chair 2 Hem Onc [address] [place] [address] 05/22/2024 9:10 AM EST Laboratory Laboratory [facility] [place] [address] [place] [address] [place], Lab [address] [facility] [place] [address] 05/22/2024 9:30 AM EST Office Visit Hematology/Oncology [place] [address] [place] [phone] Gabby Zavala CRNP [address] [facility] [place] [address] 05/22/2024 10:00 AM EST Hem/Onc Treatment Hematology/Oncology Treatment, [place] [address] [place] [phone] [place], Chair 4 Hem Onc [address] 200 [facility] [place], [place] [address] 05/29/2024 9:30 AM EST Laboratory Laboratory [address]ery [place] 200 [facility] [place], [place] [phone] [place], Lab [address] 200 [facility] [place], [place] [address] 05/29/2024 10:30 AM EST Hem[facility] [address] [facility], [place] [phone] [place], Chair 9 Hem Onc [address] [facility] [place], [place] [address] 08/06/2024 9:00 AM EST Telemedicine Genetics [facility], [facility] [address] [place] [address] Estephania Reyes, MS [address] [place] [address] Health Maintenance Due Date Last [...] this encounter Medical Devices Implanted Type Area Clerical Clerk Device Identifier Shelf Expiration Date Model / Serial / Lot Stent Angulo 4fr 11cm - [id number] Implanted:Qty : 1 on 02/08/2024 by Jeffrey Kerr MD at OR [facility] [employer] [id number] 08/16/2028 [id number] / / [id number] Port Implant W8f Poly Cath - [id number] Implanted:Qty : 1 on 05/02/2024 by Iam Curry MD at OR [facility] Right: Chest CR BARD : PERIPHERAL VASCULAR [id number] 05/17/2025 [id number] / / [id number] documented as of this encounter Care Teams Agent Licensing Clerk Relationship Specialty Start Date End Date Malinda Owens CRNP [address] [facility] [place] [address] PCP - General Nurse Practitioner 09/20/23 documented as of this encounter
--- OUTSIDE RECORDS SUMMARY | 2024-09-05 14:42 | External Medical Summary | Summary of Care ---
Author Name Unknown Organization [facility] Address [address] [place] [address] Phone [phone] Care Team Providers Care Truck Body Builder Apprentice Name Role Phone Ridge Owensmargaret AD Primary Care Provider [phone] Reason for Visit * Reason Onset Date Comments Medication Refill 05/07/2024 Encounter Details Date Type Department Care Team (Late st Contact Info) Description 05/07/2024 Refill Hematology/Oncology Treatment, [place] [address] [place] [address] Em Ng MD [address] [place] [address] Malignant neoplasm of upper-outer quadrant of left breast in female, estrogen receptor negative (HCC)* Allergies No known active allergiesdocumented as of this encounter (statuses as of 05/08/2024) Medications 29-1 MG Oral Tablet Chewable Take [...] TO ACCESSING. 30 g 05/05/20 24 Active Ondansetron HCl 8 MG Oral Tablet (Zofran)Indication s:Malignant neoplasm of upper-outer quadrant of left breast in female, estrogen receptor negative (HCC) Take 1 Tablet by mouth every 8 hours as needed for Nausea. 30 Tablet 3 05/08/20 24 Active Loratadine 10 MG Oral Tablet (Claritin)Indicati ons:Malignant neoplasm of upper-outer quadrant of left breast in female, estrogen receptor negative (HCC) Take 1 tablet by mouth x5 days starting the day before fulphila injection 20 Tablet 05/08/20 24 Active documented as of this encounter (statuses as of 05/08/2024) Active Problems Problem Noted Date Diagnosed Date [...] complete. Enrolled in Current Health. Plans to scrap picker meter from pharmacy today. Instructions provided [...] and class I obesity. Per review of HR BUSINESS [employer]NER documentation of 09/25/23, blood glucose values have [...] Recommend nutrition consult with RDN (Registered Dietitian Cloth Weaver). Lifestyle changes are also indicated including optimizing [...] and folate levels and referral to a chauffeur. If hemoglobin levels are below 8 g/dl, we recommend Maternal Medicine ultrasound for growth every 4 weeks after 24 weeks. Consider a blood transfusion if hemoglobin levels fall below 6 g/dL. ([employer] Chief Cruiser Practice Bulletin Number 95, December,). Consider Venofer [...] as of this encounter (statuses as of 05/08/2024) Resolved Problems Problem Noted Date Diagnosed Date Resolved Date Abnormal glucose tolerance i n mother complicating 04/19/2023 08/31/2023 Overview (04/19/2023): Failed early glucola. 3hr GTT ordered documented as of this encounter (statuses as of 05/08/2024) Immunizations Name Administration Dates Next Due DTP [...] money to get more. 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 Not on file Not on file documented as of this encounter Miscellaneous Notes * Addendum Note - Flaco Gallagher RN - 05/08/2024 2:11 PM ESTAddended by: FLACO GALLAGHER on: 05/08/2024 02:11 PM Modules accepted: Orders * Telephone Encounter - Flaco Gallagher RN - 05/08/2024 2:10 PM EST Patient requesting these be resent to [facility] * Telephone Encounter - Flaco Gallagher RN - 05/07/2024 9:49 AM EST Pended maricel braga documented in this encounter Plan of Treatment Upcoming Encounters Date Type Department Care Team (Late st Contact Info) Description 05/12/2024 10:00 AM EST Office Visit Family Practice [facility] [place] [address] Malinda Owens CRNP [address] [place] [address] 05/16/2024 9:10 AM EST Laboratory Laboratory Rafael Amato [place] [address] [place] [address] Khris Amato [address] [facility] [place] [address] 05/16/2024 10:00 AM EST Hem/Onc Treatment Hematology/Oncology Treatment, [place] [address] [place] [address] [place], Chair 2 Hem Onc Scenery [address] [place], [place] [address] 05/22/2024 9:10 AM EST Laboratory Laboratory Scenery [facility] [address] [place], [place] [address] [place], Lab Scenery [address] [place], [place] [address] 05/22/2024 9:30 AM EST Office Visit Hematology/Oncology Scenery [place] [address] [place], [place] [address] Gabby Zavala CRNP 400 [place] [address] 05/22/2024 10:00 AM EST [facility] [address] [facility], [place] [address] [place], Chair 4 Hem Onc Scenery [address] [place], [place] [address] 05/29/2024 9:30 AM EST Laboratory [facility] [place] [address] [place], [place] [address] [place], Lab Scenery [address] [place] [address] 05/29/2024 10:30 AM EST [facility] [address] [facility] [place] [address] [place], Chair 9 Hem Onc Scenery [address] [place], [place] [address] 08/06/2024 9:00 AM EST Telemedicine Genetics HemOnc, [facility] [address] [place] [address] Estephania Reyes, MS [address] [place] [address] [phone] (work) Health Maintenance Due Date Last Done Comments [...] this encounter Medical Devices Implanted Type Area Triage Nurse Device Identifier Shelf Expiration Date Model / Serial / Lot Stent Angulo 4fr 11cm - [id number] Implanted:Qty : 1 on 02/08/2024 by Jeffrey Kerr MD at OR [facility] [employer] [id number] 08/16/2028 [id number] / / [id number] Port Implant W8f Poly Cath - [id number] Implanted:Qty : 1 on 05/02/2024 by Iam Curry MD at OR [facility] Right: Chest CR BARD : PERIPHERAL VASCULAR [id number] 05/17/2025 [id number] / / [id number] documented as of this encounter Visit Diagnoses [...] Primary documented in this encounter Care Teams Truck Body Builder Apprentice Relationship Specialty Start Date End Date Malinda Owens CRNP [address] [place] [address] PCP - General Nurse Practitioner 09/20/23 documented as of this encounter
--- OUTSIDE RECORDS SUMMARY | 2024-09-05 14:42 | External Medical Summary | Summary of Care ---
Author Name Unknown Organization [facility] Address [address] [facility] [address] Phone [phone] Care Team Providers Care Buffing Machine Operator Semiautomatic Name Role Phone Malinda Owens Primary Care Provider [phone] Reason for Visit * Reason Comments Education Encounter Details Date Type Department Care Team (Latest Contact Info) Description 05/07/2024 11:30 AM EST Pt Ed by Nurse [facility]ology[facility] [place] [address] [facility] [place] [address] Nurse [place] Hem Onc [facility] [address] [facility] [place] [address] Drug-related hair loss*; Malignant neoplasm of upper-outer quadrant of left [...] TO ACCESSING. 30 g 05/05/20 24 Active documented as of this encounter [...] Enrolled in Current Health. Plans to flower picker meter from pharmacy today. Instructions provided [...] and class I obesity. Per review of HELPER METAL [employer]ANGING documentation of 09/25/23, blood glucose values have [...] Recommend nutrition consult with RDN (Registered Dietitian Physical Education Specialist). Lifestyle changes are also indicated including [...] folate levels and referral to a manager adult. If hemoglobin levels are below 8 g/dl, we recommend Maternal Medicine ultrasound for growth every 4 weeks after 24 weeks. Consider a blood transfusion if hemoglobin levels fall below 6 g/dL. ([employer] Account Officer Practice Bulletin Number 95, December,). Consider [...] to get more. 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 documented in this encounter Plan of Treatment Upcoming Encounters Date Type Department Care Team (Late st Contact Info) Description 05/12/2024 10:00 AM EST Office Visit [facility] [address] [place] [address] Malinda Owens CRNP [address] [place] [address] 05/16/2024 9:10 AM EST Laboratory Laboratory [facility] [place] [address] [place] [address] [place], Lab Scenery [address] [place] [address] 05/16/2024 10:00 AM EST Hem[facility] 200 [facility], [place] [address] [place], Chair 2 Hem Onc Scenery [address] [place] [address] 05/22/2024 9:10 AM EST Laboratory Laboratory [facility] [place] [address] [place] [address] [place], Lab Scenery [address] [facility] [place], [place] [address] 05/22/2024 9:30 AM EST Office Visit Hematology/Oncology [facility] [place] [address] [place] [address] Gabby Zavala CRNP [address] [place] [address] 05/22/2024 10:00 AM EST Hem/Onc Treatment Hematology/Oncology Treatment, [place] [address] [facility], [place] [address] [place], Chair 4 Hem Onc Scenery [address] [place] [address] 05/29/2024 9:30 AM EST Laboratory Laboratory [address]ery [place] [address] [place], [place] [address] [place], Lab Scenery [address] [place], [place] [address] 05/29/2024 10:30 AM EST Hem/Onc Treatment Hematology/Oncology Treatment, [place] [address] [place], [place] [address] [place], Chair 9 Hem Onc Scenery [address] [place], [place] [address] 08/06/2024 9:00 AM EST Telemedicine Genetics HemOnc, [facility] [address] [place] [address] Estephania Reyes, [place] [address] [place] [address] Health Maintenance Due Date Last [...] this encounter Medical Devices Implanted Type Area Molasses Coloring Operator Device Identifier Shelf Expiration Date Model / Serial / Lot Stent Kev 4fr 11cm - [id number] Implanted:Qty : 1 on 02/08/2024 by Jeffrey Kerr MD at OR [facility] [employer] [id number] 08/16/2028 [id number] / / [id number] Port Implant W8f Poly Cath - [id number] Implanted:Qty : 1 on 05/02/2024 by Iam Curry MD at OR [facility] Right: Chest CR BARD : PERIPHERAL VASCULAR [id number] 05/17/2025 [id number] / / [id number] documented as of this encounter Visit Diagnoses [...] of , antepartum, single or unspecified fetus Drug-related hair loss- Primary Other alopecia Malignant neoplasm of upper-outer quadrant of left breast in female, estrogen receptor negative (HCC) documented in this encounter Care Teams Buffing Machine Operator Semiautomatic Relationship Specialty Start Date End Date Malinda Owens CRNP [address] [facility] [place] [address] PCP - General Nurse Practitioner 09/20/23 documented as of this encounter
--- OUTSIDE RECORDS SUMMARY | 2024-09-05 14:42 | External Medical Summary | Summary of Care ---
Author Name Unknown Organization [facility] Address [address] [place] [address] Phone [phone] Care Team Providers Care Corral Boss Name Role Phone OwensMalinda AD Primary Care Provider [phone] Reason for Visit * Reason Onset Date Comments Imaging Records Request 05/09/2024 Patient Access Records Request 05/09/2024 Encounter Details Date Type Department Care Team (Late st Contact Info) Description 05/09/2024 Telephone Radiology Film File [address] [place] [address] Support, Imaging Radiology [address] [place] [address] Imaging Records Request; Patient Access Re... Allergies No known active allergiesdocumented as of this encounter (statuses as of 05/09/2024) Medications 19 29-1 MG Oral Tablet Chewable [...] and class I obesity. Per review of BODY STRAIGHTENER documentation of 09/25/23, blood glucose values have [...] Recommend nutrition consult with RDN (Registered Dietitian Packing House Supervisor). Lifestyle changes are also indicated including [...] and folate levels and referral to a blocker and polisher. If hemoglobin levels are below 8 g/dl, we recommend Maternal Medicine ultrasound for growth every 4 weeks after 24 weeks. Consider a blood transfusion if hemoglobin levels fall below 6 g/dL. ([employer] and Planned Giving Officer Practice Bulletin Number 95, December,). Consider [...] money to get more. 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 on file Not on file documented as of this encounter Miscellaneous Notes * Telephone Encounter - Susan Banks OSA - 05/09/2024 12:02 PM EST Patient signed patient right of access form to release 10-17-23 to 04-23-24 image(s) to self via email [email or web address] pushed to patient/email [employer] account Job ID: [id number] documented in this encounter Plan of Treatment Upcoming Encounters Date Type Department Care Team (Late st Contact Info) Description 05/12/2024 10:00 AM EST Office Visit Family Practice [facility] [address] [place] [address] Malinda Owens CRNP [address] [place] [address] 05/16/2024 9:10 AM EST Laboratory Laboratory [facility] [place] [address] [place] [address] [place], Lab Scenery [address] [place] [address] 05/16/2024 10:00 AM EST Hem/Onc Treatment Hematology/Oncology Treatment, [place] [address] [place] [address] [place], Chair 2 Hem Onc Scenery [address] [place] [address] 05/22/2024 9:10 AM EST Laboratory Laboratory [facility] [place] [address] [place] [address] [place], Lab Scenery [address] [facility] [place] [address] 05/22/2024 9:30 AM EST Office Visit Hematology/Oncology [facility] [place] [address] [place], [place] [address] Gabby Zavala, BODY STRAIGHTENER 400 [facility] [place] [address] 05/22/2024 10:00 AM EST Hem/Onc Treatment Hematology/Oncology Treatment, [place] 200 [facility], [place] [address] [place], Chair 4 Hem Onc Scenery [address] [facility] [place], [place] [address] 05/29/2024 9:30 AM EST Laboratory Laboratory [facility] [place] 200 [facility] [place] [address] [place], Lab Scenery [address] [facility] [place] [address] 05/29/2024 10:30 AM EST [facility] 200 [facility], [place] [address] [place], Chair 9 Hem Onc Scenery 200 [facility] [place], [place] [address] 08/06/2024 9:00 AM EST Telemedicine Genetics HemOnc, [facility] [address] [place] [address] Estephania Reyes, [place] [address] [place] [address] Health Maintenance Due Date Last Done Comments Depression Screening 2006 HPV (Gardasil) Vaccine (3 - 3-dose series) 02/05/2013 11/13/2012, 03/21/2012 COVID-19 Vaccine (2023- season) 2024 HPV/Co-Test 2024 Cervical Cancer Screening 01/29/2026 Pap Smear 01/29/2026 01/29/2023, 06/11/2019, 07/17/2018, Additional history exists DTap/Tdap Vaccines (9 [...] this encounter Medical Devices Implanted Type Area Dog Bather Device Identifier Shelf Expiration Date Model / Serial / Lot Stent Angulo 4fr 11cm - [id number] Implanted:Qty : 1 on 02/08/2024 by Jeffrey Kerr MD at OR [facility] [employer] [id number] 08/16/2028 [id number] / / [id number] Port Implant W8f Poly Cath - [id number] Implanted:Qty : 1 on 05/02/2024 by Iam Curry MD at OR [facility] Right: Chest CR BARD : PERIPHERAL VASCULAR [id number] 05/17/2025 [id number] / / [id number] documented as of this encounter Care Teams Corral Boss Relationship Specialty Start Date End Date Malinda Owens CRNP [address] [place] [address] PCP - General Nurse Practitioner 09/20/23 documented as of this encounter
--- OUTSIDE RECORDS SUMMARY | 2024-09-05 14:42 | External Medical Summary | Summary of Care ---
Author Name Unknown Organization [facility] Address [address] [place] [address] Phone [phone] Care Team Providers Care Electronic Engraver Name Role Phone Malinda Owens Primary Care Provider [phone] Encounter Details Date Type Department Care Team (Late st Contact Info) Description 05/09/2024 Telephone General Surgery, [facility] [address] [place] [address] Danielle Sinha MD [address] [facility] [place] [address] Allergies No known active allergiesdocumented as of [...] MFM ADAPT consult complete. Enrolled in Current Mobile Experience. Plans to black pickler meter from pharmacy today. Instructions provided [...] class I obesity. Per review of MANAGER PROGRAMMING documentation of 09/25/23, blood glucose values have [...] Recommend nutrition consult with RDN (Registered Dietitian Toll Test Desk Worker). Lifestyle changes are also indicated including [...] and folate levels and referral to a work study student. If hemoglobin levels are below 8 g/dl, we recommend Maternal Medicine ultrasound for growth every 4 weeks after 24 weeks. Consider a blood transfusion if hemoglobin levels fall below 6 g/dL. ([employer] and Heavy Equipment Supervisor Practice Bulletin Number 95, December,). Consider [...] money to get more. 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 documented in this encounter Plan of Treatment Upcoming Encounters Date Type Department Care Team (Late st Contact Info) Description 05/12/2024 10:00 AM EST Office Visit [facility] [address] [place] [address] Malinda Owens CRNP [address] [place] [address] 05/16/2024 9:10 AM EST Laboratory Laboratory Scenery [facility] [address] [place] [address] [place], Lab Scenery [address] [place], [place] [address] 05/16/2024 10:00 AM EST Hem/Onc Treatment Hematology/Oncology Treatment, [place] [address] [place], [place] [address] [place], Chair 2 Hem Onc Scenery [address] [place], [place] [address] 05/22/2024 9:10 AM EST Laboratory Laboratory Scenery [facility] [address] [place] [address] [place], Lab Scenery [address] [place], [place] [address] 05/22/2024 9:30 AM EST Office Visit Hematology/Oncology [facility] [place] [address] [place] [address] Gabby Zavala CRNP [address] [place] [address] 05/22/2024 10:00 AM EST Hem/Onc Treatment Hematology/Oncology Treatment, [place] 200 [facility] [place] [address] [place], Chair 4 Hem Onc Scenery 200 [facility] [place], [place] [address] 05/29/2024 9:30 AM EST Laboratory Laboratory Scenery [facility] 200 [facility] [place], [place] [address] [place], Lab Scenery [address] [facility] [place], [place] [address] 05/29/2024 10:30 AM EST Hem/Onc Treatment Hematology/Oncology Treatment, [place] 200 [facility] [place] [address] [place], Chair 9 Hem Onc Scenery [address] [facility] [place], [place] [address] 08/06/2024 9:00 AM EST Telemedicine Genetics HemOnc, [facility] [address] [place] [address] Estephania Reyes, [place] [address] [place] [address] Health Maintenance Due Date Last Done Comments [...] this encounter Medical Devices Implanted Type Area Appraisal Specialist Device Identifier Shelf Expiration Date Model / Serial / Lot Stent Angulo 4fr 11cm - [id number] Implanted:Qty : 1 on 02/08/2024 by Jeffrey Kerr MD at OR [facility] [employer] [id number] 08/16/2028 [id number] / / [id number] Port Implant W8f Poly Cath - [id number] Implanted:Qty : 1 on 05/02/2024 by Iam Curry MD at OR [facility] Right: Chest CR BARD : PERIPHERAL VASCULAR [id number] 05/17/2025 [id number] / / [id number] documented as of this encounter Care Teams Electronic Engraver Relationship Specialty Start Date End Date Malinda Owens CRNP [address] [place] [address] PCP - General Nurse Practitioner 09/20/23 documented as of this encounter
--- OUTSIDE RECORDS SUMMARY | 2024-09-05 14:42 | External Medical Summary | Summary of Care ---
Author Name Unknown Organization [facility] Address [address] [place] [address] Phone [phone] Care Team Providers Care Cargo Operations Agent Name Role Phone Malinda Owens Primary Care Provider [phone] Reason for Referral * Evaluate & Treat - Unlimited Visits (Within 24 hrs (call dept; emergent)) - Pending Review Specialty Diagnoses / Procedures Referred By Bennie gilliland Referred To Contact Obstetrics/Gynecology / Fertility Diagnoses Malignant neoplasm of upper-outer quadrant of left breast in female, estrogen receptor negative (HCC) Em Ng MD [address] [place] [address] [place] [address] Phone: tel: fax: Referral ID Status Reason Start Date Expiration Date Visits Requested Visits Authorized [id number] Pending Review Specialty Services Required 4 999 [...] Contact Info) Description 05/07/2024 Telephone Hematology/Oncology Treatment, [place] [address] [place] [address] Em Ng MD [address] [place] [address] [place] [phone] Referral Allergies No known active allergiesdocumented as [...] and class I obesity. Per review of VENEER JOINTER HELPER documentation of 09/25/23, blood glucose values [...] Recommend nutrition consult with RDN (Registered Dietitian Medical Device Sales Representative). Lifestyle changes are also indicated [...] and folate levels and referral to a intelligence specialist. If hemoglobin levels are below 8 g/dl, we recommend Maternal Medicine ultrasound for growth every 4 weeks after 24 weeks. Consider a blood transfusion if hemoglobin levels fall below 6 g/dL. ([employer]st[employer]ians and Entry Level Sales Representative Practice Bulletin Number 95, December,). Consider [...] money to get more. 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 on file Not [...] 05/16/2024 9:10 AM EST Laboratory Laboratory [facility] [place] [address] [place] [address] [place] [facility] [address] [place] [place] [address] 05/16/2024 10:00 AM EST Hem/Onc Treatment Hematology/Oncology Treatment, [place] [address] [place] [address] [place], Chair 2 Hem Onc [facility] [address] [place] [address] 05/22/2024 9:10 AM EST Laboratory Laboratory [facility] [place] [address] [place] [address] [place], Lab [place] [address] [place] [address] [address] 05/22/2024 9:30 AM EST Office Visit Hematology/Oncology [facility] [place] [address] [place] [address] Gabby Zavala CRNP 400 [facility] [place] [address] 05/22/2024 10:00 AM EST Hem/Onc Treatment Hematology/Oncology Treatment, [place] [address] [place] [address] [place], Chair 4 Hem Onc [place] [address] [place] [address] 05/29/2024 9:30 AM EST Laboratory Laboratory Sc[place] 200 [facility] [place] [phone] [place], Lab Scenery 200 [facility] [place] [address] 05/29/2024 10:30 AM EST [facility] [address] [facility], [place] [address] [place], Chair 9 Hem Onc [place] [address] [place] [address] 08/06/2024 9:00 AM EST Telemedicine Genetics HemOnc, [facility] [address] [place] [address] Estephania Reyes, [place] [address] [place] [address] Scheduled Referrals Name Type Priority [...] this encounter Medical Devices Implanted Type Area Protection Engineer Device Identifier Shelf Expiration Date Model / Serial / Lot Stent Angulo 4fr 11cm - [id number] Implanted:Qty : 1 on 02/08/2024 by Jeffrey Kerr MD at OR [facility] [employer] [id number] 08/16/2028 [id number] / / [id number] Port Implant W8f Poly Cath - [id number] Implanted:Qty : 1 on 05/02/2024 by Iam Curry MD at OR [facility] Right: Chest CR BARD : PERIPHERAL VASCULAR [id number] 05/17/2025 [id number] / / [id number] documented as of this encounter Visit Diagnoses [...] Primary documented in this encounter Care Teams Cargo Operations Agent Relationship Specialty Start Date End Date Malinda Owens CRNP [address] [place] [address] PCP - General Nurse Practitioner 09/20/23 documented as of this encounter
--- OUTSIDE RECORDS SUMMARY | 2024-09-05 14:42 | External Medical Summary | Summary of Care ---
Author Name Unknown Organization [facility] Address [address] [place] [address] Phone [phone] Care Team Providers Care Commercial Instructor Supervisor Name Role Phone Malinda Owens Primary Care Provider [phone] Reason for Referral * Evaluate & Treat - Unlimited Visits (Within 24 hrs (call dept; emergent)) - Pending Review Specialty Diagnoses / Procedures Referred By Bennie gilliland Referred To Contact Obstetrics/Gynecology / Fertility Diagnoses Malignant neoplasm of upper-outer quadrant of left breast in female, estrogen receptor negative (HCC) Em Ng MD [address] [place] [address] [place] [address] Phone: tel: fax: Referral ID Status Reason Start Date Expiration Date Visits Requested Visits Authorized [id number] Pending Review Specialty Services Required 4 999 [...] Contact Info) Description 05/07/2024 Telephone Hematology/Oncology Treatment, [place] [address] [place] [address] Em Ng MD [address] [place] [address] [place] [phone] Referral Allergies No known active allergiesdocumented as of this encounter (statuses as of 05/08/2024) Medications 19 29-1 MG Oral Tablet Chewable [...] 1HR PRIOR TO ACCESSING. 30 g 05/05/20 Active documented as of this encounter (statuses [...] and class I obesity. Per review of THERMODYNAMICIST documentation of 09/25/23, blood glucose values have [...] nutrition consult with RDN (Registered Dietitian Auto Body Estimator). Lifestyle changes are also indicated including optimizing [...] and folate levels and referral to a sports trainer. If hemoglobin levels are below 8 g/dl, we recommend Maternal Medicine ultrasound for growth every 4 weeks after 24 weeks. Consider a blood transfusion if hemoglobin levels fall below 6 g/dL. ([employer] Obstetricians and Cleaner Assistant Practice Bulletin Number 95, December,). Consider [...] money to get more. 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 * Telephone Encounter - Yuli Gallahger RN - 05/07/2024 3:42 PM EST Per [...] 05/12/2024 10:00 AM EST Office Visit [facility] [place] [address] Malinda Owens CRNP [address] [place] [address] 05/16/2024 9:10 AM EST Laboratory Laboratory [facility] [place] [address] [place] [address] [place], Lab Scenery 200 [facility] [place] [address] 05/16/2024 10:00 AM EST Hem/Onc Treatment Hematology/Oncology Treatment, [place] [address] [place] [address] [place], Chair 2 Hem Onc [facility] [address] [place] [address] 05/22/2024 9:10 AM EST Laboratory Laboratory [facility] [place] [address] [place] [address] [place], Lab Scenery 200 [place] [facility] [place] [address] 05/22/2024 9:30 AM EST [facility] [address] [place] [phone] Gabby Zavala CRNP 400 [facility] [place] [facility] [place] [address] 05/22/2024 10:00 AM EST Hem/Onc Treatment Hematology/Oncology Treatment, [place] 200 [place] [address] [place], Chair 4 Hem Onc Sc[address] [place], [place] [address] 05/29/2024 9:30 AM EST Laboratory Laboratory [facility] [place] [address] [place] [phone] [place], Lab Scenery 200 [facility] [place], [place] [address] 05/29/2024 10:30 AM EST Hem/Onc Treatment Hematology/Oncology Treatment, [place] 200 [facility], [place] [address] [place], Chair 9 Hem Onc Scenery 200 [facility] [place], [place] [address] 08/06/2024 9:00 AM EST Telemedicine Genetics HemOnc, [facility] [address] [place] [address] Estephania Reyes, [place] [address] [place] [address] Scheduled Referrals Name Type Priority [...] this encounter Medical Devices Implanted Type Area Deli Department Manager Device Identifier Shelf Expiration Date Model / Serial / Lot Stent Angulo 4fr 11cm - [id number] Implanted:Qty : 1 on 02/08/2024 by Jeffrey Kerr MD at OR [facility] [employer] [id number] 08/16/2028 [id number] / / [id number] Port Implant W8f Poly Cath - [id number] Implanted:Qty : 1 on 05/02/2024 by Iam Curry MD at OR [facility] Right: Chest CR BARD : PERIPHERAL VASCULAR [id number] 05/17/2025 [id number] / / [id number] documented as of this encounter Visit Diagnoses [...] Primary documented in this encounter Care Teams Commercial Instructor Supervisor Relationship Specialty Start Date End Date Malinda Owens CRNP [address] [place] [address] PCP - General Nurse Practitioner 09/20/23 documented as of this encounter
--- OUTSIDE RECORDS SUMMARY | 2024-09-05 14:42 | External Medical Summary | Summary of Care ---
Author Name Unknown Organization [facility] Address [address] [place] [facility] [place] [address] Phone [phone] Care Team Providers Care Carpenter Foreman Name Role Phone Ridge Owensmargaret AD Primary Care Provider [phone] Reason for Visit * Reason Onset Date Comments Medication Refill 05/07/2024 Encounter Details Date Type Department Care Team (Late st Contact Info) Description 05/07/2024 Refill Hematology/Oncology Treatment, [place] [address] [place] [address] Em Ng MD [address] [place] [address] Malignant neoplasm of upper-outer quadrant [...] and class I obesity. Per review of PRECISION GRINDER documentation of 09/25/23, blood glucose values have [...] Recommend nutrition consult with RDN (Registered Dietitian Meteorology Faculty Member). Lifestyle changes are also indicated including optimizing [...] and folate levels and referral to a software tools engineer. If hemoglobin levels are below 8 g/dl, we recommend Maternal Medicine ultrasound for growth every 4 weeks after 24 weeks. Consider a blood transfusion if hemoglobin levels fall below 6 g/dL. ([employer] Obstetricians and Cloth Burler Practice Bulletin Number 95, December,). Consider Venofer [...] money to get more. 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 [address] Estephania Reyes, [place] [address] [place] [address] Health Maintenance Due Date Last [...] this encounter Medical Devices Implanted Type Area Internet Marketing Assistant Device Identifier Shelf Expiration Date Model / Serial / Lot Stent Angulo 4fr 11cm - [id number] Implanted:Qty : 1 on 02/08/2024 by Jeffrey Kerr MD at OR [facility] [employer] [id number] 08/16/2028 [id number] / / [id number] Port Implant W8f Poly Cath - [id number] Implanted:Qty : 1 on 05/02/2024 by Iam Curry MD at OR [facility] Right: Chest CR BARD : PERIPHERAL VASCULAR [id number] 05/17/2025 [id number] / / [id number] documented as of this encounter Visit Diagnoses [...] Primary documented in this encounter Care Teams Carpenter Foreman Relationship Specialty Start Date End Date Malinda Owens CRNP 132 [facility] [place] [address] PCP - General Nurse Practitioner 09/20/23 documented as of this encounter
--- OUTSIDE RECORDS SUMMARY | 2024-09-05 14:42 | External Medical Summary | Summary of Care ---
Author Name Unknown Organization [facility] Address [address] [place] [place] [facility] [place] [address] Phone [phone] Care Team Providers Care Test Preparation Tutor Name Role Phone Ridge Owensmargaret AD Primary Care Provider [phone] Reason for Visit * Reason Onset Date Comments Medication Refill 05/07/2024 Encounter Details Date Type Department Care Team (Late st Contact Info) Description 05/07/2024 Refill Hematology/Oncology Treatment, [place] [address] [place] [address] Em Ng MD [address] [place] [address] Malignant neoplasm of upper-outer quadrant [...] complete. Enrolled in Current Health. Plans to nut picker meter from pharmacy today. Instructions [...] and class I obesity. Per review of TAFE REGISTRAR documentation of 09/25/23, blood glucose values have [...] Recommend nutrition consult with RDN (Registered Dietitian Oxygen Equipment Preparer). Lifestyle changes are also indicated including optimizing [...] and folate levels and referral to a lawn mower sharpener. If hemoglobin levels are below 8 g/dl, we recommend Maternal Medicine ultrasound for growth every 4 weeks after 24 weeks. Consider a blood transfusion if hemoglobin levels fall below 6 g/dL. ([employer] Obstetricians and Line Cleaner Practice Bulletin Number 95, December,). Consider Venofer [...] money to get more. 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 file Not on file documented as of this encounter Miscellaneous Notes * Addendum Note - Flaco Gallagher RN - 05/08/2024 2:11 PM ESTAddended by: FLACO GALLAGHER on: 05/08/2024 02:11 PM Modules accepted: Orders * Telephone Encounter - Flaco Gallagher RN - 05/08/2024 2:10 PM EST Patient requesting these be resent to [facility] S Jed * Telephone Encounter - Flaco Gallagher RN - 05/07/2024 9:49 AM EST Pended maricel braga documented in this encounter Plan of Treatment Upcoming Encounters Date Type Department Care Team (Late st Contact Info) Description 05/12/2024 10:00 AM EST Office Visit Family [facility] [place] [address] Malinda Owens CRNP [address] [place] [address] 05/16/2024 9:10 AM EST Laboratory Laboratory Rafael Amato [place] [address] [place] [address] Khris Amato [address] [facility] [place] [address] 05/16/2024 10:00 AM EST Hem/Onc Treatment Hematology/Oncology Treatment, [place] [address] [place] [address] [place], Chair 2 Hem Onc [address] [address] [place], [place] [address] 05/22/2024 9:10 AM EST Laboratory Laboratory Scenery [facility] [address] [place], [place] [address] [place], Lab Scenery [address] [place], [place] [address] 05/22/2024 9:30 AM EST Office Visit Hematology/Oncology [facility] [place] [address] [place], [place] [address] Gabby Zavala CRNP 400 [place] [address] 05/22/2024 10:00 AM EST [facility] 200 [facility], [place] [address] [place], Chair 4 Hem Onc [place] [address] [place], [place] [address] 05/29/2024 9:30 AM EST Laboratory Laboratory [facility] [place] [address] [place], [place] [address] [place], Lab Scenery [address] [place] [address] 05/29/2024 10:30 AM EST Hem[facility] 200 [place] [address] [place], Chair 9 Hem Onc [address] [address] [place], [place] [address] 08/06/2024 9:00 AM EST Telemedicine Genetics HemOnc, [facility] [address] [place] [address] Estephania Reyes, [place] [address] [place] [address] [phone] (work) Health Maintenance Due Date Last Done [...] this encounter Medical Devices Implanted Type Area Credit Card Analyst Device Identifier Shelf Expiration Date Model / Serial / Lot Stent Angulo 4fr 11cm - [id number] Implanted:Qty : 1 on 02/08/2024 by Jeffrey Kerr MD at OR [facility] [employer] [id number] 08/16/2028 [id number] / / [id number] Port Implant W8f Poly Cath - [id number] Implanted:Qty : 1 on 05/02/2024 by Iam Curry MD at OR [facility] Right: Chest CR BARD : PERIPHERAL VASCULAR [id number] 05/17/2025 [id number] / / [id number] documented as of this encounter Visit Diagnoses [...] Primary documented in this encounter Care Teams Test Preparation Tutor Relationship Specialty Start Date End Date Malinda Owens CRNP [address] [place] [address] PCP - General Nurse Practitioner 09/20/23 documented as of this encounter
--- OUTSIDE RECORDS SUMMARY | 2024-09-05 14:42 | External Medical Summary | Summary of Care ---
Author Name Unknown Organization [facility] Address [address] [facility] [place] [address] Phone [phone] Care Team Providers Care Barge Master Name Role Phone Malinda Owens Primary Care Provider [phone] Reason for Visit * Reason Onset Date Comments Billing Questions 05/07/2024 Encounter Details Date Type Department Care Team (Late st Contact Info) Description 05/07/2024 Telephone [facility] [address] [employer] [address] [place] [address] Lilia Marques PA-C [address] [employer] [place] [address] Billing Questions Allergies No known active allergiesdocumented [...] Problem Noted Date Diagnosed Date Encounter for antineoplastic chemotherapy 2023 Encounter for [...] and class I obesity. Per review of HOME SUPERVISOR documentation of 09/25/23, blood glucose values [...] Recommend nutrition consult with RDN (Registered Dietitian Biophysics Professor). Lifestyle changes are also indicated including optimizing [...] and folate levels and referral to a corporate travel counselor. If hemoglobin levels are below 8 g/dl, we recommend Maternal Medicine ultrasound for growth every 4 weeks after 24 weeks. Consider a blood transfusion if hemoglobin levels fall below 6 g/dL. ([employer] Obstetricians and Nuclear Waste Process Operator Practice Bulletin Number 95, December,). [...] money to get more. Never true 03/26/2024 [place] Depression Scale Answer Date Recorded [place] Depression Scale Total 6 12/11/2023 The thought [...] No 03/26/2024 Does the household have a santa fe indian hospitallar source of income? 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 Please contact pt & update notes in snapshot. Please sign encounter to close phone message. Copy in chart documented in this encounter Plan of Treatment Upcoming Encounters Date Type Department Care Team (Late st Contact Info) Description 05/08/2024 9:00 AM EST Office Visit Hematology/Oncology [facility] [place] [address] [place] [phone] Em Ng MD [address] [facility] [place] [address] 05/08/2024 9:30 AM EST Hem/Onc Treatment Hematology/Oncology Treatment, [place] [address] [place] [address] [place], Chair 9 Hem Onc [facility] [address] 05/12/2024 10:00 AM EST Office Visit Family Practice [facility] [address] [facility] [facility] [address] Malinda Owens CRNP [address] [facility] [address] 08/06/2024 9:00 AM EST Telemedicine Genetics HemOnc, [place] [address] [place] [address] Estephania Reyes, [place] [address] [place] [address] Health Maintenance Due Date [...] this encounter Medical Devices Implanted Type Area Hot Braider Device Identifier Shelf Expiration Date Model / Serial / Lot Stent Angulo 4fr 11cm - [id number] Implanted:Qty : 1 on 02/08/2024 by Jeffrey Kerr MD at OR [facility] [employer] [id number] 08/16/2028 6546 / / [id number] Port Implant W8f Poly Cath - [id number] Implanted:Qty : 1 on 05/02/2024 by Iam Curry MD at OR [facility] Right: Chest CR BARD : PERIPHERAL VASCULAR [id number] 05/17/2025 [id number] / / [id number] documented as of this encounter Care Teams Barge Master Relationship Specialty Start Date End Date Malinda Owens CRNP 132 [facility] [place] [address] PCP - General Nurse Practitioner 09/20/23 documented as of this encounter
--- OUTSIDE RECORDS SUMMARY | 2024-09-05 14:42 | External Medical Summary | Summary of Care ---
Author Name Unknown Organization [facility] Address [address] [facility] [place] [address] Phone [phone] Care Team Providers Care Dietary Service Aide Name Role Phone Malinda Owens Primary Care Provider [phone] Reason for Visit * Reason Comments Chemotherapy [...] FULPHILA WY PACLITAXEL INJECTION WY INJ CYCLOPHOSPHAMD Em Bird MD [address] [facility] [place] [address] Phone: tel: fax: Hematology/Oncology Treatment, [address] [address] Phone: tel: fax: Referral ID Status Reason Start Date Expiration Date V isits Requested Visits Authorized [id number] Authorized 04/30/2024 07/07/2024 [id number] Encounter Details Date Type Department Care Team (Latest Contact Info) Description 05/08/2024 9:30 AM EST Hem/Onc Treatment Hematology/Oncolog y Treatment, [address] [address] [place], Chair 9 Hem Onc Scenery [address] [place] [address] Malignant neoplasm of upper-outer quadrant of left [...] Nausea. 30 Tablet 3 05/08/20 24 024 Discontin ued(Refil l) Loratadine 10 MG Oral Tablet (Claritin)Indicati ons:Malignant neoplasm of upper-outer quadrant of left breast in female, estrogen receptor negative (HCC) Take 1 tablet by mouth x5 days starting the day before fulphila injection 20 Tablet 05/08/20 24 024 Discontin ued(Refil l) documented as of this [...] and class I obesity. Per review of [employer] documentation of 09/25/23, blood glucose values have [...] Recommend nutrition consult with RDN (Registered Dietitian Rendering Equipment Tender). Lifestyle changes are also indicated including [...] and folate levels and referral to a time stamp assembler. If hemoglobin levels are below 8 g/dl, we recommend Maternal Medicine ultrasound for growth every 4 weeks after 24 weeks. Consider a blood transfusion if hemoglobin levels fall below 6 g/dL. ([employer] Bulletin Number 95, December,). Consider [...] money to get more. 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 on file [...] Description 05/12/2024 10:00 AM EST Office Visit [facility] [address] [facility] [place] [address] Malinda Owens CRNP [address] [facility] [place] [address] 05/16/2024 9:10 AM EST Laboratory Laboratory [facility] [address] [facility] [place] [id number] [place], Lab [address] [place] [address] 05/16/2024 10:00 AM EST [facility] [address] [place] [phone] [place], Chair 2 Hem Onc [facility] [address] [facility] [place] [address] 05/22/2024 9:10 AM EST Laboratory Laboratory [facility] [place] [address] [place] [phone] [place], Lab [facility] [address] [facility] [place] [address] 05/22/2024 9:30 AM EST Office Visit Hematology/Oncology [facility] [place] [address] [facility] [place] [id number] Gabby Zavala CRNP [address] [place] [address] 05/22/2024 10:00 AM EST Hem/Onc Treatment Hematology/Oncology Treatment, [place] [address] [facility] [place] [address] [place], Chair 4 Hem Onc Scenery [address] [facility] [place], [place] [address] 05/29/2024 9:30 AM EST Laboratory Laboratory [address] [place] [address] [facility] [place], [place] [phone] [place], Lab Scenery [address] [facility] [place] [address] 05/29/2024 10:30 AM EST [facility] [address] [facility] [place] [phone] [place], Chair 9 Hem Onc Scenery [address] [facility] [place], [place] [address] 08/06/2024 9:00 AM EST Telemedicine Genetics HemOnc, [facility] [address] [place] [address] Estephania Reyes, MS [address] [place] [address] Health Maintenance Due Date Last [...] this encounter Medical Devices Implanted Type Area Ncr Operator Device Identifier Shelf Expiration Date Model / Serial / Lot Stent Angulo 4fr 11cm - [id number] Implanted:Qty : 1 on 02/08/2024 by Jeffrey Kerr MD at OR [facility] [employer] [id number] 08/16/2028 [id number] / / [id number] Port Implant W8f Poly Cath - [id number] Implanted:Qty : 1 on 05/02/2024 by Iam Curry MD at OR [facility] Right: Chest CR BARD : PERIPHERAL VASCULAR [id number] 05/17/2025 [id number] / / [id number] documented as of this encounter Visit Diagnoses [...] PRN Other, Hypersensitivity Reaction, Starting on Bibi 05/08/24 at 1121, Until Sun05/09/24 at 1120, For 24 hoursIndications:Malignant neoplasm of upper-outer quadrant of left breast in female, estrogen receptor negative (HCC),Encounter for antineoplastic chemotherapy,Encounter for prevention of neutropenia due to chemotherapy EPINEPHrine 1 MG/ML inj 0.3 mg 0.3 mg, Intramuscular, ONCE PRN Other, Hypersensitivity Reaction or Anaphylaxis, Starting on Sun05/08/24 at 1121, Until Sun05/09/24 at 1120, For 24 hoursIndications:Malignant neoplasm of upper-outer quadrant of left breast in female, estrogen receptor negative (HCC),Encounter for antineoplastic chemotherapy,Encounter for prevention of neutropenia due to chemotherapy hEParin 100 UNIT/ML Lock Flush inj 500 Units 500 Units (5 mL), IV Lock, PRN Other, IV Flush, Starting on Sun05/08/24 at 1121, Until Sun05/09/24 at 1120, For 24 hours, Do not flush if lock, PICC, or central line not in place; IV infusing or unable to flush.Indications:Malignant neoplasm of upper-outer quadrant of left breast in female, estrogen receptor negative (HCC),Encounter for antineoplastic chemotherapy,Encounter for prevention of neutropenia due to chemotherapy Hydrocortisone Sod Suc (PF) (Solu-Cortef) inj 100 mg 100 mg, IV Push, ONCE PRN Other, Hypersensitivity Reaction, Starting on Sun05/08/24 at 1121, Until Sun05/09/24 at 1120, For 24 hoursIndications:Malignant neoplasm of upper-outer quadrant of left breast in female, estrogen receptor negative (HCC),Encounter for antineoplastic chemotherapy,Encounter for prevention of neutropenia due to chemotherapy LORAzepam (Ativan) tab 0.5 mg 0.5 mg, Oral, ONCE PRN Anxiety, Nausea, Starting on Sun05/08/24 at 1230, Until DiscontinuedIndications:Maligna nt neoplasm of upper-outer quadrant of left breast in female, estrogen receptor negative (HCC),Encounter for antineoplastic chemotherapy,Encounter for prevention of neutropenia due to chemotherapy meperidine (Demerol) 25 MG/ML inj 25 mg 25 mg, Intramuscular, ONCE PRN Shivering, Chills/Rigors from acute infusion reaction, Starting on Sun05/08/24 at 1121, Until Sun05/09/24 at 1120, For 24 hoursIndications:Malignant neoplasm of upper-outer quadrant of left breast in female, estrogen receptor negative (HCC),Encounter for antineoplastic chemotherapy,Encounter for prevention of neutropenia due to chemotherapy NSS infusion Intravenous, at 50 mL/hr, PRN, Starting on Sun05/08/24 at 1230, Until Discontinued, Maintenance lineIndications:Malignant neoplasm of upper-outer quadrant of left breast in female, estrogen receptor negative (HCC),Encounter for antineoplastic chemotherapy,Encounter for prevention of neutropenia due to chemotherapy Start Infusion 05/08/2024 11:21 AM EST 50 mL/hr oxygen GAS Inhalation, OXYGEN, First dose on Bibi 05/08/24 at 1600, Until Discontinued, Device/Managed by: Low [...] Push, PRN Other, IV Flush, Starting on Sun05/08/24 at 1121, Until Sun05/09/24 at 1120, For 24 hours, Do not flush if lock, PICC, or central line not in place; IV infusing or unable to flush.Indications:Malignant neoplasm of upper-outer quadrant of left breast in female, estrogen receptor negative (HCC),Encounter for antineoplastic chemotherapy,Encounter for prevention of neutropenia due to chemotherapy Inactive Administered Medications - up to 3 [...] Given 05/08/2024 11:29 AM EST 20 mg PACLitaxel (Taxol) 165 [...] at 1200, For 1 dose, Restricted per S antiemetic [...] mL/hr documented in this encounter Care Teams Dietary Service Aide Relationship Specialty Start Date End Date Malinda Owens CRNP [address] [facility] [place] [address] PCP - General Nurse Practitioner 09/20/23 documented as of this encounter
--- OUTSIDE RECORDS SUMMARY | 2024-09-05 14:43 | External Medical Summary | Summary of Care ---
Author Name Unknown Organization [facility] Address [address] [facility] [address] Phone [phone] Care Team Providers Care Airway Traffic Controller Name Role Phone Malinda Owens AD Primary Care Provider [phone] Reason for Referral * Precert (Within 24 hrs (call dept; emergent)) - Pending Review Specialty Diagnoses / Procedures Referred By Contac t Referred To Contact Radiology Diagnoses Malignant neoplasm of upper-outer quadrant of left breast in female, estrogen receptor negative (HCC) Procedures IR VENOUS ACCESS MEDIPORT Sydnee Ng MD [address] [place] [address] Phone: tel: fax: Referral ID Status Reason Start Date Expiration Date V isits Requested Visits Authorized [id number] Pending Review 04/24/2024 999 999 * Precert (Diagnostic Medical) (Within 10 days (routine)) - Authorized Specialty Diagnoses / Procedures Referred By Contac t Referred To Contact Cardiac Studies Diagnoses Malignant neoplasm of upper-outer quadrant of left breast in female, estrogen receptor negative (HCC) Procedures ECHO, COMPLETE (2D), TRANS-THORACIC Sydnee Ng MD [address] [place] [address] Phone: tel: fax: Referral ID Status Reason Start Date Expiration Date V isits Requested Visits Authorized [id number] Authorized Precert 04/24/2024 05/24/2024 999 999 * Precert (Within 24 hrs (call dept; emergent)) - Authorized Specialty Diagnoses / Procedures Referred By Contac t Referred To Contact Radiology Diagnoses Malignant neoplasm of upper-outer quadrant of left breast in female, estrogen receptor negative (HCC) Procedures PET CT SKULL BASE TO MID-THIGH FDG Sydnee Ng MD [address] [address] Phone: tel: fax: Referral ID Status Reason Start Date Expiration Date V isits Requested Visits Authorized [id number] Authorized Precert 05/01/2024 05/31/2024 999 999 Reason for Visit * Reason Onset Date Comments NEW PATIENT Oncology Medication Administration 04/24/2024 Flu an d/or Pneumo Inj * Evaluate & Treat - Unlimited Visits (Within 3 days (urgent)) - Pending Review Specialty Diagnoses / Procedures Referred By Bennie t Referred To Contact Hematology/Oncology / Hematology Oncology Diagnoses Malignant neoplasm of left female breast, unspecified estrogen receptor status, unspecified site of breast (HCC) Triple negative breast cancer (HCC) Kina Capps PA-C [address] [place] [address] Phone: tel: fax: Referral ID Status Reason Start Date Expiration Date Visits Requested Visits Authorized [id number] Pending Review Specialty Services Required 04/18/[phone] Encounter Details Date Type Department Care Team (Late st Contact Info) Description 04/24/2024 8:00 AM EST Office Visit Hematology/Oncology [facility] Quispe [address] [place] [address] Sydnee Ng MD [address] [address] Malignant neoplasm of upper-outer quadrant of left breast in female, estrogen receptor negative (HCC)*; Need for prophylactic vaccination and inoculation against influenza Allergies No known active allergiesdocumented as of this encounter (statuses as of 05/01/2024) Medications 19 29-1 MG Oral Tablet Chewable Take by mouth. Active Ibuprofen 600 MG Oral Tablet (Motrin) Take 1 Tablet by mouth every 6 hours as needed (pain). 11/02/2023 Active documented as of this encounter (statuses as of 05/01/2024) Active Problems Problem Noted Date Diagnosed Date [...] complete. Enrolled in Current Health. Plans to fern picker meter from pharmacy today. Instructions provided [...] and class I obesity. Per review of TELEVISION PRODUCER documentation of 09/25/23, blood glucose values have [...] Recommend nutrition consult with RDN (Registered Dietitian News Correspondent). Lifestyle changes are also indicated including optimizing [...] and folate levels and referral to a records manager. If hemoglobin levels are below 8 g/dl, we recommend Maternal Medicine ultrasound for growth every 4 weeks after 24 weeks. Consider a blood transfusion if hemoglobin levels fall below 6 g/dL. ([employer] Bulletin Number 95, December,). Consider Venofer [...] as of this encounter (statuses as of 05/01/2024) Resolved Problems Problem Noted Date Diagnosed Date Resolved Date Abnormal glucose tolerance i n mother complicating 04/19/2023 08/31/2023 Overview (04/19/2023): Failed early glucola. 3hr GTT ordered documented as of this encounter (statuses as of 05/01/2024) Immunizations Name Administration Dates Next Due DTP [...] money to get more. 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 Not on file Not on file Not on file documented as of this encounter Last Filed Vital Signs Vital Sign Reading Time Taken Comments Blood Pressure 108/64 04/24/2024 7:54 AM EST Pulse 60 04/24/2024 7:54 AM EST Temperature 36.7 C (98 F) 04/24/2024 7:54 AM EST Respiratory Rate 18 04/24/2024 7:54 AM EST Oxygen Saturation 98% 04/24/2024 7:54 AM EST Inhaled Oxygen Concentration - - Weight 87.1 kg (192 lb) 04/24/2024 7:54 AM EST Height - - Body Mass Index 28.35 02/08/2024 12:02 PM EDT documented in this encounter Patient Instructions * Patient Instructions* Em Mendoza LPN - 04/24/2024 8:03 AM EST ~~PATIENT INSTRUCTIONS FOR FLU SHOT~~ Possible side effects of influenza vaccine, (flu shot), are usually mild and include: 1. Soreness or redness at injection site 2. Low grade fever 3. Body aches You may use Tylenol/Acetaminophen as needed for these symptoms. LET YOUR DOCTOR KNOW IMMEDIATELY IF YOU HAVE DIFFICULTY BREATHING OR SWALLOWING, EXPERIENCE ITCHINGOF FEET OR HANDS, HAVE SWELLING OF EYES, FACE OR INSIDE OF NOSE. documented in this encounter Progress Notes * Sydnee Ng MD - 05/01/2024 3:04 PM EST Pembrolizumab D1 + Carboplatin AUC1.5 D1,8,15 + Paclitaxel 80 mg/m2 D1,8,15 q21 Days C1-4 followed by Pembrolizumab + AC q21 Days * Sydnee Ng MD - 04/24/2024 8:25 AM EST Images from the original note were not included. Date of visit: 04/24/2024 Chief Complaint Patient presents with NEW PATIENT Oncology Medication Administration Flu and/or Pneumo Inj REASON FOR CONSULTATION: Left Breast Cancer Clinical Stage 1 - [...] changes. The patient presents with her , [id number] as well as her mother for today's [...] with a container labeled with "Yuli Gutierrez", "[id number]", "1995" and " left breast 2/three o'clock [...] 12 cm from nipple, core biopsy (block [id number]): Invasive mammary carcinoma of no special type, grade 3. Estrogen Receptor (ER) protein expression is NEGATIVE <1% nuclear positivity COMMENT: Assay internal and external control immunoreactivity is appropriate. Progesterone Receptor (MS) protein expression is NEGATIVE <1% nuclear positivity [...] hereby consent to and request SYDNEE Nguyen [[id number]] and whoever he/she may designate as his/her licensed nursing assistant to administer to me chemotherapy in the form of [id number]: Pembrolizumab 200 mg D1 + Paclitaxel 80 mg/m D1, 8, 15 + Carboplatin AUC=5 D1 q21 Days x 12 Weeks, Followed by Pembrolizumab 200 mg + Doxorubicin + Cyclophosphamide q21 Days x 12 Weeks, Followed by Surgery. In giving such authorization, I hereby acknowledge that my attending physician, SYDNEE Nguyen [[id number]] has fully explained to my satisfaction, the [...] plan of care. Sydnee Ng MD Hematology/Oncology [address] [address] PAST MEDICAL HISTORY: Past Medical History: Diagnosis [...] performed by Jeffrey Kerr MD at OR [facility] US GUIDED BREAST BIOPSY LEFT Left [...] affect her risk of local recurrence and lead burner helper in the decision for breast conservation vs [...] now, she would not need a marina prosecuting attorney placement as the tumor is palpable (will do specimen radiograph). Should she undergo chemo upfront, will plan on marina prosecuting attorney placement if the lesion is no longer palpable. We reviewed that bilateral mastectomies or unilateral mastectomy with or without reconstruction canalso be chosen depending on patient preference or can be recommended pending the above testing results. We discussed that reconstruction is generally done in two stages with a temporary tissue small order cutter placed initially followed by a final reconstruction [...] to use vaginal estrogen creamas prescribed by bilingual customer service for vaginal dryness/ dyspareunia. PLAN: Genetic counseling/ testing Medical oncology consult - scheduled for Bilateral breast MRI Pending above, tentative left lumpectomy and sln biopsy after neoadjuvant chemo. * Em Mendoza LPN - 04/24/2024 8:03 AM EST PRE - ADMINISTRATION DOCUMENTATION Are you experiencing any cold symptoms or fever? No Have you had Guillain-Palm Syndrome (an illness that causes paralysis) within the last 6 weeks? No Have you had the flu shot in the past? YES Have you ever had a reaction to the flu shot? No Em Mendoza LPN, 04/24/2024 8:03 AM Immunization Administration Documentation Time Out Procedure Performed: Yes Patient Identified (Ask Name/Date of ): Yes Does the patient have a fever greater than 101 degrees today? No Patient allergic to latex? No VFC Stock: Yes, Does this patient qualify for immunization through the VFC program because he/she (check only one): Yes-is enrolled in Medicaid Immunization(s) verified: Yes, Immunization Name: Flu, VIS Sheet(s) given: Yes Verified Side and Site: Yes Verified Shot(s) with Parent(s)/Patient: Yes documented in this encounter Nursing Notes * Em Mendoza LPN - 04/24/2024 7:55 AM EST Patient identifed by name and birthdate Do you have any concerns about pain management for today's visit? No Living Will or Advance Directive for Health Care as noted on the problem list. [facility] is a way you can talk to your provider on line through e-mail. Would you like to sign up? I can activate it for you? NO Filed Vitals: 04/24/24 0754 BP: 108/64 Pulse: 60 Resp: 18 Temp: 36.7 C (98 F) TempSrc: Tympanic SpO2: 98% Weight: 87.1 kg (192 lb) Patient was [...] comprehension of instructions. documented in this encounter Miscellaneous Notes * Oncology Pathways Update - Sydnee Ng MD - 04/30/2024 1:41 AM EST START ON PATHWAY REGIMEN - Breast [id number]: Pembrolizumab 200 mg D1 + Paclitaxel 80 mg/m D1, 8, 15 + Carboplatin AUC=5 D1 q21 Days x 12 Weeks, Followed by Pembrolizumab 200 mg + Doxorubicin + Cyclophosphamide q21 Days x 12 Weeks, Followed by Surgery Cycles 1 through 4: A cycle is every 21 days: Pembrolizumab (Keytruda) 200 mg flat dose IV once on day 1 of cycles 1 through 4 Paclitaxel 80 mg/m IV once daily on days 1, 8, and 15 of cycles 1 through 4 Carboplatin AUC=5 IV once on day 1 of cycles 1 through 4 Filgrastim-xxxx 5 mcg/kg subcutaneously once daily on days 16, 17, and 18 of cycles 1 through 4 Cycles 5 through 8: A cycle is every 21 days: Pembrolizumab (Keytruda) 200 mg flat dose IV once on day 1 of cycles 5 through 8 Doxorubicin 60 mg/m IV once on day 1 of cycles 5 through 8 Cyclophosphamide 600 mg/m IV once on day 1 of cycles 5 through 8 Pegfilgrastim-xxxx 6 mg flat dose subcutaneously once on day 2 of cycles 5 through 8 Always confirm dose/schedule in your pharmacy ordering system Citations: -Radha P, Ankit J, Rick L, et al. Pembrolizumab for Early Triple-Negative Breast Cancer. N Engl J Med. 2020;382(9):810-821. doi:10.1056/[id number]. URL: https://pubmed.ncbi.nlm.nih.gov/54816424/ Patient Characteristics: Preoperative or Nonsurgical Candidate, M0 (Clinical Staging), Up to cT4c, Any N, M0, Neoadjuvant Therapy followed by Surgery, Invasive Disease, Chemotherapy, HER2 Negative, ER Negative, [place] Therapy Indicated and Candidate for Checkpoint Inhibitor Therapeutic Status: Preoperative or Nonsurgical Candidate, M0 (Clinical Staging) AJCC M Category: cM0 AJCC Grade: G3 ER Status: Negative (-) AJCC 8 Stage Grouping: IB HER2 Status: Negative (-) AJCC T Category: cT1c AJCC N Category: cN0 MS Status: Negative (-) Breast Surgical Plan: Neoadjuvant Therapy followed by Surgery Intent of Therapy: Curative Intent, Discussed with Patient * Oncology Pathways Notification - Sydnee Ng MD - 04/30/2024 1:41 AM EST A new patient decision has been made in ClinicalPath. Details of this patient have been provided below: Patient Information: Name: Yuli Gutierrez : 1995 Provider Name: Sydnee Cruz Disease: Breast Pathway Followed: Breast, Preoperative or Nonsurgical Candidate, M0 (Clinical Staging), Up to cT4c,Any N, M0, Neoadjuvant Therapy followed by Surgery, Invasive Disease, Chemotherapy, HER2 Negative, ER Negative, [place] Therapy Indicated and Candidate for Checkpoint Inhibitor Patient Characteristics: Preoperative or Nonsurgical Candidate, M0 (Clinical Staging), Up to cT4c, Any N, M0, Neoadjuvant Therapy followed by Surgery, Invasive Disease, Chemotherapy, HER2 Negative, ER Negative, [place] Therapy Indicated and Candidate for Checkpoint Inhibitor Therapeutic Status: Preoperative or Nonsurgical Candidate, M0 (Clinical Staging) AJCC M Category: cM0 AJCC Grade: G3 ER Status: Negative (-) AJCC 8 Stage Grouping: IB HER2 Status: Negative (-) AJCC T Category: cT1c AJCC N Category: cN0 MS Status: Negative (-) Breast Surgical Plan: Neoadjuvant Therapy followed by Surgery Intent of Therapy: Curative Intent, Discussed with PatientTreatment Details: START ON PATHWAY REGIMEN [id number]: Pembrolizumab 200 mg D1 + Paclitaxel 80 mg/m D1, 8, 15 + Carboplatin AUC=5 D1 q21 Days x 12 Weeks, Followed by Pembrolizumab 200 mg + Doxorubicin + Cyclophosphamide q21 Days x 12 Weeks, Followed by Surgery Cycles 1 through 4: A cycle is every 21 days: Pembrolizumab (Keytruda) 200 mg flat dose IV once on day 1 of cycles 1 through 4 Paclitaxel 80 mg/m IV once daily on days 1, 8, and 15 of cycles 1 through 4 Carboplatin AUC=5 IV once on day 1 of cycles 1 through 4 Filgrastim-xxxx 5 mcg/kg subcutaneously once daily on days 16, 17, and 18 of cycles 1 through 4 Cycles 5 through 8: A cycle is every 21 days: Pembrolizumab (Keytruda) 200 mg flat dose IV once on day 1 of cycles 5 through 8 Doxorubicin 60 mg/m IV once on day 1 of cycles 5 through 8 Cyclophosphamide 600 mg/m IV once on day 1 of cycles 5 through 8 Pegfilgrastim-xxxx 6 mg flat dose subcutaneously once on day 2 of cycles 5 through 8 Always confirm dose/schedule in your pharmacy ordering system Citations: -Radha P, Ankit J, Rick L, et al. Pembrolizumab for Early Triple-Negative Breast Cancer. N Engl J Med. 2020;382(9):810-821. doi:10.1056/[id number]. URL: https://pubmed.ncbi.nlm.nih.gov/86677294/ documented in this encounter Plan of Treatment Upcoming Encounters Date Type Department Care Team (Latest Contact Info) Description 05/02/2024 11:25 AM EST Hospital Encounter OR [facility], Operating Room, [facility] - 4th Floor [address] [address] Iam Curry MD [address] [address] 05/02/2024 11:25 AM EST - 05/02/2024 12:20 PM EST Surgery OR [facility], Operating Room, [facility] - 4th Floor [address] [address] Iam Curry MD [address] [address] INSERT TUNNELED CENTRAL VENOUS ACCESS WITH SUBQ PORT 05/07/2024 8:00 AM EST Imaging Radiology [facility], [address] [place] [address] 05/07/2024 11:30 AM EST Pt Ed by Nurse Hematology/Oncolog y Scenery [place] [address] [place], [place] [address] [place], Nurse Hem Onc Scenery [address] [place] [address] 05/07/2024 12:30 PM EST Laboratory Laboratory Scenery [place] [address] [place] [id number] [place], Lab Scenery [address] [facility] [place] [address] 05/08/2024 8:45 AM EST Hem/Onc Treatment Hematology/Oncolog y Treatment [place] [address] [place], [place] [phone] [place], Chair 9 Hem Onc Scenery [address] [place] [address] 05/12/2024 10:00 AM EST Office Visit Family Practice [facility] [address] [place] [address] Malinda Owens CRNP [address] [place] [address] 08/06/2024 9:00 AM EST Telemedicine Genetics HemOnc, [facility] [address] [place], [place] [id number] Estephania Re[place], [place] [address] [place] [address] Pending Results Name Type Priority Associated Diagnoses Date /Time CEA Lab Routine Malignant neoplasm of upper-outer quadrant of left breast in female, estrogen receptor negative (HCC) 05/01/2024 8:42 AM EST CA 27.29 Lab Routine Malignant neoplasm of upper-outer quadrant of left breast in female, estrogen receptor negative (HCC) 05/01/2024 8:42 AM EST Scheduled Orders Name Type Priority Associated Diagnoses Orde r Schedule HCG QUALITATIVE, URINE Lab Routine Malignant neoplasm of upper-outer quadrant of left breast in female, estrogen receptor negative (HCC) Expected: 04/24/2024, Expires: 04/24/2025 CEA Lab Routine Malignant neoplasm of upper-outer quadrant of left breast in female, estrogen receptor negative (HCC) Expected: 04/24/2024, Expires: 04/24/2025 CA 27.29 Lab Routine Malignant neoplasm of upper-outer quadrant of left breast in female, estrogen receptor negative (HCC) Expected: 04/24/2024, Expires: 04/24/2025 IR VENOUS ACCESS MEDIPORT Medical Imaging STAT Malignant neoplasm of upper-outer quadrant of left breast in female, estrogen receptor negative (HCC) Ordered: 04/24/2024 Scheduled Procedures Name Priority Associated Diagnoses Date/Ti me INSERT TUNNELED CENTRAL VENOUS ACCESS WITH SUBQ PORT Malignant neoplasm of upper-outer quadrant of left breast in female, estrogen receptor negative (HCC) 05/02/2024 11:25 AM EST Health Maintenance Due Date Last [...] this encounter Medical Devices Implanted Type Area V Belt Finisher Device Identifier Shelf Expiration Date Model / Serial / Lot Therese Angulo 4fr 11cm - [id number] Implanted:Qty: 1 on 02/08/2024 by Jeffrey Kerr MD at OR [facility] [employer] [facility] [id number] 08/16/2028 [id number] / / [id number] documented as of this encounter Procedures Procedure Name Priority Date/Time Associated Diagnosis Comments PT INR Routine 05/01/2024 8:42 AM EST Malignant neoplasm of upper-outer quadrant of left breast in female, estrogen receptor negative (HCC) documented in this encounter Results * PET CT SKULL BASE TO MID-THIGH FDG (05/01/2024 8:44 AM EST) Anatomical Region Laterality Modality Body, Chest, Abdomen, Pelvis Pos itron Emission Tomography (PET) 05/01/2024 10:1 1 AM EST Impressions 05/01/2024 1:32 PM EST IMPRESSION FDG avid left outer breast mass, consistent with biopsy-proven malignancy. No evidence of FDG avid locoregional or metastatic disease. I have personally reviewed this examination and agree with the resident/fellow physician's interpretation. Narrative 05/01/2024 1:32 PM EST EXAM PET CT SKULL BASE TO MID-THIGH FDG - 05/01/2024 8:44 am HISTORY TNBC. COMPARISON Mammogram and left breast ultrasound dated 04/09/2024. TECHNIQUE PET imaging was performed from the skull base to the mid thighs 66 minutes following the intravenous administration of 12.6 mCi of F-18 fluorodeoxyglucose (FDG). Low-dose CT was performed for anatomic localization and attenuation correction purposes and fused with the PET images on a separate workstation. The patient's glucose level at the time of radiotracer injection was 94 mg/dL. This is the initial PET/CT for the above indication. FINDINGS PET SCAN: Maximum blood pool SUV: 2.7 Maximum hepatic SUV: 3.1 Head/Neck: No metabolically active cervical lymphadenopathy. Physiologic activity is present within the visualized brain, salivary glands, and pharyngeal mucosa. Chest: FDG avid left outer breast mass measuring 2.1 x 2.2 cm, SUV 13.2. No metabolically active axillary, hilar, or mediastinal lymphadenopathy. No metabolically active pulmonary nodules Abdomen/Pelvis: No metabolically active intraperitoneal mass. No metabolically active abdominal or pelvic lymphadenopathy. Physiologic activity is present within the gastrointestinal and genitourinary system. Musculoskeletal: No abnormal focal activity localizes to the bones. Mild asymmetric sclerosis of the bilateral sacroiliac joints, left greater than right, without evidence of increased metabolic activity. ADDITIONAL CT FINDINGS: Lines/Devices: None. Head/Neck: Unremarkable Chest: Mild bibasilar atelectasis. Mild hypoattenuation of the intracardiac blood pool suggestive of anemia. Abdomen/Pelvis: Cholecystectomy. Musculoskeletal/Other: Scoliosis. Procedure Note Yanni Greenfield, DO - 05/01/[address] SKULL BASE TO MID-THIGH FDG - 05/01/2024 8:44 am HISTORY TNBC. COMPARISON Mammogram and left breast ultrasound dated 04/09/2024. TECHNIQUE PET imaging was performed from the skull base to the mid thighs 66 minutesfollowing the intravenous administration of 12.6 mCi of F-18fluorodeoxyglucose (FDG). Low- dose CT was performed for anatomiclocalization and attenuation correction purposes and fused with the PETimages on a separate workstation. The patient's glucose level at the timeof radiotracer injection was 94 mg/dL. This is the initial PET/CT for theabove indication. FINDINGS PET SCAN: Maximum blood pool SUV: 2.7 Maximum hepatic SUV: 3.1 Head/Neck: No metabolically active cervical lymphadenopathy. Physiologicactivity is present within the visualized brain, salivary glands, andpharyngeal mucosa. Chest: FDG avid left outer breast mass measuring 2.1 x 2.2 cm, SUV 13.2.No metabolically active axillary, hilar, or mediastinal lymphadenopathy.No metabolically active pulmonary nodules Abdomen/Pelvis: No metabolically active intraperitoneal mass. Nometabolically active abdominal or pelvic lymphadenopathy. Physiologicactivity is present within the gastrointestinal and genitourinarysystem. Musculoskeletal: No abnormal focal activity localizes to the bones. Mildasymmetric sclerosis of the bilateral sacroiliac joints, left greater thanright, without evidence of increased metabolic activity. ADDITIONAL CT FINDINGS: Lines/Devices: None. Head/Neck: Unremarkable Chest: Mild bibasilar atelectasis. Mild hypoattenuation of theintracardiac blood pool suggestive of anemia. Abdomen/Pelvis: Cholecystectomy. Musculoskeletal/Other: Scoliosis. IMPRESSION IMPRESSION FDG avid left outer breast mass, consistent with biopsy-proven malignancy.No evidence of FDG avid locoregional or metastatic disease. I have personally reviewed this examination and agree with the resident/fellow physician's interpretation. us Sydnee Ng MD [facility] NUCLEAR MED Final Result * COMPREHENSIVE METABOLIC PANEL (05/01/2024 8:42 AM EST) BUN 17 6 - 20 mg/dL 05/01/2024 9:30 AM EST LAB[facility]ATORY [facility] CREATININE 0.9 0.5 - 1.0 mg/dL 05/01/2024 9:30 AM EST [facility] EGFR >90 >=60 mL/min 05/01/2024 9:30 AM EST [facility] Comment:eGFR is calculated b ased on the CKD-EPI 2020 equation. SODIUM 138 135 - 146 mmol/L 05/01/2024 9:30 AM EST [facility] POTASSIUM 4.7 3.5 - 5.1 mmol/L 05/01/2024 9:30 AM EST [facility] CHLORIDE 102 98 - 107 mmol/L 05/01/2024 9:30 AM EST [facility] CO2 26 22 - 32 mmol/L 05/01/2024 9:30 AM EST [facility] ANION GAP 10 7 - 15 mmol/L 05/01/2024 9:30 AM EST [facility] GLUCOSE 81 70 - 120 mg/dL 05/01/2024 9:30 AM EST [facility] Albumin 4.5 3.8 - 5.0 g/dL 05/01/2024 9:30 AM EST [facility] AST 15 10 - 35 U/L 05/01/2024 9:30 AM EST [facility] Alkaline Phosphatase 104 35 - 130 U/L 05/01/2024 9:30 AM EST [facility] Bilirubin, Total 0.4 <=1.2 mg/dL 05/01/2024 9:30 AM EST [facility] CALCIUM 9.5 8.4 - 10.2 mg/dL 05/01/2024 9:30 AM EST [facility] Protein 7.3 6.0 - 8.3 g/dL 05/01/2024 9:30 AM EST [facility] ALT 19 10 - 35 U/L 05/01/2024 9:30 AM EST [facility] Blood Venous blood specimen / Unknown Venipuncture / Unknown 05/01/2024 8:42 AM EST 05/01/2024 8:43 AM EST Sydnee Ng MD LAB BLOOD OR DERABLES Final Result Performing Organization Address [facility] de Phone Number LABORATORY [address] [phone] * PT INR (05/01/2024 8:42 AM EST) Prothrombin Time 12.9 11.6 - 15.2 seconds 05/01/2024 9:04 AM EST LABORATORY [facility] INR 1.0 0.8 - 1.2 05/01/2024 9:04 AM EST LABORATORY [facility] Blood Venous blood specimen / Unknown Venipuncture / Unknown 05/01/2024 8:42 AM EST 05/01/2024 8:43 AM EST Narrative LABORATORY [facility] - 05/01/2024 9:04 AM EST Warfarin Therapy INR: 2.0-3.0 conventional anticoagulation INR: 2.5-3.5 high intensity anticoagulation Sydnee Ng MD LAB BLOOD OR DERABLES Final Result Performing Organization Address [facility] Co de Phone Number LABORATORY [address] [address] * ECHO, COMPLETE (2D), TRANS-THORACIC (04/30/2024 8:52 AM EST) Pathologist [facility] LEFT VENTRICULAR EJECTION FRACTION 55 % [facility] 04/30/2024 7:56 AM EST Sydnee Ng MD ECHOCARDIOLO GY Final Result Performing Organization Address [facility] Co de Phone Number [facility] documented in this encounter Visit Diagnoses Diagnosis [...] in female, estrogen receptor negative (HCC)- Primary Need for prophylactic vaccination and inoculation against influenza Malignant neoplasm of upper-outer quadrant of left breast in female, estrogen receptor negative (HCC) Malignant neoplasm of upper-outer quadrant of left breast in female, estrogen receptor negative (HCC) documented in this encounter Care Teams Airway Traffic Controller Relationship Specialty Start Date End Date Malinda Owens CRNP [address] [facility] [place] [id number] PCP - General Nurse Practitioner 09/20/23 documented as of this encounter
--- OUTSIDE RECORDS SUMMARY | 2024-09-05 14:43 | External Medical Summary | Summary of Care ---
Author Name Unknown Organization [facility] Address [address] [facility] [place] [address] Phone [phone] Care Team Providers Care Outboard Motorboat Operator Name Role Phone Malinda Oewns Primary Care Provider [phone] Encounter Details Date Type Department Care Team (Late st Contact Info) Description 05/07/2024 2:30 PM EST Office Visit Fertility [facility] [address] [place] [address] Lilia Marques PA-C [address] [place] [phone] Encounter for fertility preservation counseling prior to cancer therapy* Allergies No known active allergiesdocumented as of this encounter (statuses as of 05/07/2024) Medications 19 29-1 MG Oral Tablet Chewable [...] 06, 2024. 30 Tablet 5 05/06/20 Active OLANZapine 10 MG Oral Tablet (zyPREXA)Indicatio [...] as of this encounter (statuses as of 05/07/2024) Active Problems Problem Noted Date Diagnosed Date [...] and class I obesity. Per review of ACCOUNT RECEIVABLE ASSOCIATE documentation of 09/25/23, blood glucose values have [...] Recommend nutrition consult with RDN (Registered Dietitian Commercial Real Estate Paralegal). Lifestyle changes are also indicated including optimizing [...] and folate levels and referral to a shuttle car operator. If hemoglobin levels are below 8 g/dl, we recommend Maternal Medicine ultrasound for growth every 4 weeks after 24 weeks. Consider a blood transfusion if hemoglobin levels fall below 6 g/dL. ([employer] Medical Practice Bulletin Number 95, December,). Consider [...] as of this encounter (statuses as of 05/07/2024) Resolved Problems Problem Noted Date Diagnosed Date Resolved Date Abnormal glucose tolerance i n mother complicating 04/19/2023 08/31/2023 Overview (04/19/2023): Failed early glucola. 3hr GTT ordered documented as of this encounter (statuses as of 05/07/2024) Immunizations Name Administration Dates Next Due DTP [...] money to get more. 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 Chemotherapy is planned to start tomorrow. Had port placed last week. Would like to discuss fertility preservation options. Uncomplicated of daughter 10/2023. She had been but stopped about 2 weeks ago dueto cancer diagnosis. Patient was referred by Em Ng MD. 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 Age 30 (12/09/1993). He fathers their daughter, and fathered their loss. PMHx none. SurgHx none. Shx nonsmoker. STD none. Past Medical History: Diagnosis Date History of gestational diabetes Motion sickness Current Outpatient Medications Medication Sig Dispense Refill 19 29-1 MG Oral Tablet Chewable Take by mouth. (Patient not taking: Reported on 05/02/2024) Famotidine 20 MG Oral Tablet (Pepcid) Take by mouth 1 Tablet 12 hours prior to paclitaxel infusion.Do not start before May 06, 2024. (Patient not taking: Reported on 05/02/2024 Do not start before May 06, 2024.) 12 Tablet 0 dexAMETHasone 4 MG Oral Tablet (Decadron) Take 2 Tablets by mouth in the morning for 3 days. With food on days 2, 3, and 4 of chemo and as directed.. Do not start before May 07, 2024. 24 Tablet 0 Prochlorperazine Maleate 10 MG Oral Tablet (Compazine) Take 1 Tablet by mouth every 6 hours as needed for Nausea. Do not start before May 06, 2024. 30 Tablet 5 OLANZapine 10 MG Oral Tablet (zyPREXA) Take 1 Tablet by mouth at bedtime for 4 days. On days 1, 2, 3, and 4 of chemo. Do not start before May 06, 2024. 16 Tablet 0 Lidocaine-Prilocaine 2.5-2.5 % External Cream (Emla) APPLY TO SKIN OVER MEDIPORT & COVER 1HR PRIOR TO ACCESSING. 30 g 0 No current facility-administered medications for this visit. Past Surgical History: Procedure Laterality Date DENTAL SURGERY PROCEDURE NEC Age 12 ERCP, DIAGNOSTIC, SPECIMEN COLLECTION N/A 02/08/2024 choledocholithiasis, complete removal/one plastic pancreatic stent placed into ventral pancreatic duct/ENDOSCOPIC RETROGRADE CHOLANGIOPANCREATOGRAPHY (ERCP) DIAGNOSTIC performed by Jeffrey Kerr MD at OR [facility] INSER TUNN ACC DEV;5 YRS/OLDER Right 05/02/2024 INSERT TUNNELED CENTRAL VENOUS ACCESS WITH SUBQ PORT performed by Iam Curry MD at OR [facility] US GUIDED BREAST BIOPSY LEFT Left 04/15/2024 SHx: Tobacco: No Family History Problem Relation Name Age of Onset No Known Problems Mother Diabetes Father Colon cancer Grandmother (Maternal) Other (old age) Grandfather (Maternal) Heart attack Grandfather (Paternal) FHx: MGM colon ca. Mat great aunt breast ca. No family history of uterine or ovarian ca. No children born in the family with congenital anomalies or defects. ROS: ROS was performed. Pertinent positives and negatives are documented in the HPI. All others were negative or non contributory. Constitutional: no weight loss, weakness or fatigue Head: no headache Eyes: no worsening of vision ENT: no hearing loss, tinnitus, voice changes sinus congestion, sore throat Resp: no cough or SOB Cardiac: no chest pain, palpitations, dyspnea on exertion Breast: no breast lumps, masses, nipple discharge GI: no heartburn, diarrhea, constipation, nausea, vomiting, appetite OK Musculoskeletal: no significant joint/muscle pain or swelling Female : no dysuria and no incontinence Neuro: no weakness, numbness or tingling Psych: denies feeling down, depressed or hopeless in past month, denies being bothered by little interest or pleasure in doing things in past month and no insomnia Heme: no fever, no chills, no sweats and no bleeding/bruising Endo: no unplanned weight change, diaphoresis or hot/cold intolerance Skin: no rash, no itching and no new/changing skin lesion Ht: 5' 9" Wt: 195 lbs BMI: 28.8 GENERAL: alert, healthy, no distress, well nourished and well developed SKIN: Skin color, texture, and turgor normal. No rashes or significant lesions (Z31.62) Encounter for fertility preservation counseling prior to cancer therapy (primary encounterdiagnosis) Plan: Discussed oocyte cryopreservation and success with freezing oocytes, thawing and fertilization. Discussed oocyte cryopreservation process success and risks. Discussed if proceeds with oocyte cryopreservation, must delay chemotherapy start and need to discuss with oncologist. Discussed AMH as predictor of ovarian reserve with very low AMH poor predictor for response to fertility medications. Discussed inability to predict number of oocytes required to result in ongoing . Discussed creating embryos and option of PGT-A, intended as screening test and not definitive test of embryo; discussed may reduce incidence of failed embryo transfers but may not improve chance of ongoing in women < 35; Discussed freeze all cycles with subsequent FET; discussed improved implantation if known euploid embryo; discussed decision necessary for disposition of embryos anddiscarding. Discussed potential failures of IVF include inability to stimulate ovaries and cancellation, discussed no oocytes retrieved; discussed only mature oocytes able to be cryopreserved. Discussed financial considerations and that it needs to be paid in full prior to cycle start. Discussed option of GnRH agonist while undergoing chemotherapy to attempt preservation of ovarian function. Discussed risk of premature ovarian failure due to chemotherapy even with the use of GnRH agonist. Discussed would also have option of donor egg/IVF in the future. Reviewed donor egg/IVF process. Patient would like to discuss options tonight with her . At this time, she feels she does not want to delay chemotherapy any further, she would lean towards using GnRH agonist to attempt preservation of ovarian function and may be open to using donor egg in the future. She will contact the office with her decision. I spent a total of 40-54 minutes (exact time 40 mins) on the date of service in preparation, delivery, and documentation of the care provided to Yuli Gutierrez excluding any time spent in the performance of separately billed services. Lilia Marques PA-C 05/07/2024 3:07 PM Lilia Marques PA-C Fertility [address] [place] [id number] documented in this encounter Plan of Treatment Upcoming Encounters Date Type Department Care Team (Late st Contact Info) Description 05/08/2024 8:45 AM EST Hem/Onc Treatment Hematology/Oncology Treatment, [place] [address] [place] [phone] [place], Chair 9 Hem Onc [facility] [address] [facility] [place] [address] 05/08/2024 9:00 AM EST Office Visit Hematology/Oncology [facility] [address] [facility] [place] [phone] Em Ng MD [address] [facility] [place] [phone] 05/12/2024 10:00 AM EST Office Visit Family Practice [facility] [address] [facility] [place] [address] Malinda Owens CRNP [address] [place] [address] 08/06/2024 9:00 AM EST Telemedicine Genetics HemOnc, [facility] [address] [place] [address] Estephania Reyes, MS [address] [place] [address] Health Maintenance Due Date Last Done Comments [...] this encounter Medical Devices Implanted Type Area Play Writer Device Identifier Shelf Expiration Date Model / Serial / Lot Stent Kev 4fr 11cm - [id number] Implanted:Qty : 1 on 02/08/2024 by Jeffrey Kerr MD at OR [facility] [employer] [id number] 08/16/2028 [id number] / / [id number] Port Implant W8f Poly Cath - [id number] Implanted:Qty : 1 on 05/02/2024 by Iam Curry MD at OR [facility] Right: Chest CR BARD : PERIPHERAL VASCULAR [id number] 05/17/2025 [id number] / / [id number] documented as of this encounter Visit Diagnoses [...] antepartum, single or unspecified fetus Encounter for fertility preservation counseling prior to cancer therapy- Primary Encounter for fertility preservation counseling documented in this encounter Care Teams Outboard Motorboat Operator Relationship Specialty Start Date End Date Malinda Owens CRNP [address] [facility] [place] [address] PCP - General Nurse Practitioner 09/20/23 documented as of this encounter
--- OUTSIDE RECORDS SUMMARY | 2024-09-05 14:43 | External Medical Summary | Summary of Care ---
Author Name Unknown Organization [facility] Address [address] [place] [address] Phone [phone] Care Team Providers Care Business Analyst Sales Operations Name Role Phone Ridge Owensmargaret AD Primary Care Provider [phone] Reason for Visit * Auth/Cert Specialty Diagnoses / Procedures Referred By Contac t Referred To Contact Diagnoses Malignant neoplasm of upper-outer quadrant of left breast in female, estrogen receptor negative (HCC) Malignant neoplasm of upper-outer quadrant of left breast in female, estrogen receptor negative (HCC) [C50.412, Z17.1] Procedures INSER TUNN ACC DEV;5 YRS/OLDER INSERT TUNNELED CENTRAL VENOUS ACCESS WITH SUBQ PORT Iam Curry MD [address] [place] [address] Phone: tel: fax: OR [facility], Operating Room, [facility] - 4th Floor [address] [place] [address] Phone: tel: Referral ID Status Reason Start Date Expiration Date Visits Re quested Visits Authorized [id number] Encounter Details Date Type Department Care Team (Latest Contact Info) Description 05/02/2024 10:26 AM EST - 05/02/2024 1:45 PM EST Hospital Encounter OR [facility], Operating Room, [facility] - 4th Floor [address] [place] [address] Iam Curry MD [address] [place] [address] Discharge Disposition: Home - Self Care Allergies No known active allergiesdocumented as of this encounter (statuses as of 05/03/2024) Medications 19 29-1 MG Oral Tablet Chewable [...] 2024. 16 Tablet 05/06/20 24 024 Active Ibuprofen 600 MG Oral Tablet (Motrin) Take 1 Tablet by mouth every 6 hours as needed (pain). 11/02/19 024 Discontin ued(Medic ation List Clean Up) diphenhydrAMINE HCl 25 MG Oral Tablet (Benadryl)Indicati ons:Malignant neoplasm of upper-outer quadrant of left breast in female, estrogen receptor negative (HCC),Encounter for antineoplastic chemotherapy,Encou nter for prevention of neutropenia due to chemotherapy Take by mouth 1 Capsule 12 hours prior to paclitaxel infusion. Do not start before May 06, 2024. 12 Tablet 05/06/20 024 Discontin ued(Medic ation List Clean Up) documented as of this encounter (statuses as of 05/03/2024) Active Problems Problem Noted Date Diagnosed Date [...] and class I obesity. Per review of SENIOR SOFTWARE DEVELOPER documentation of 09/25/23, blood glucose values have [...] Recommend nutrition consult with RDN (Registered Dietitian Jointer Operator). Lifestyle changes are also indicated including [...] and folate levels and referral to a charter pilot. If hemoglobin levels are below 8 g/dl, we recommend Maternal Medicine ultrasound for growth every 4 weeks after 24 weeks. Consider a blood transfusion if hemoglobin levels fall below 6 g/dL. ([employer] Bulletin Number 95, December,). Consider [...] as of this encounter (statuses as of 05/03/2024) Resolved Problems Problem Noted Date Diagnosed Date Resolved Date Abnormal glucose tolerance i n mother complicating 04/19/2023 08/31/2023 Overview (04/19/2023): Failed early glucola. 3hr GTT ordered documented as of this encounter (statuses as of 05/03/2024) Immunizations Name Administration Dates Next Due DTP [...] money to get more. 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 Not on file Not on file Not on file documented as of this encounter Last Filed Vital Signs Vital Sign Reading Time Taken Comments Blood Pressure 108/58 05/02/2024 1:23 PM EST Pulse 54 05/02/2024 1:23 PM EST Temperature 36.2 C (97.2 F) 05/02/2024 1:23 PM ES T Respiratory Rate 16 05/02/2024 1:23 PM EST Oxygen Saturation 98% 05/02/2024 1:23 PM EST Inhaled Oxygen Concentration - - Weight 88.5 kg (195 lb) 05/02/2024 10:35 AM EST Height 175.3 cm (5' 9.02") 05/02/2024 10:[address] Body Mass Index 28.78 05/02/2024 10:35 AM EST documented in this encounter Discharge Instructions * Discharge Instr - AVS* Iam Curry MD - 05/02/2024 12:28 PM EST Discharge Date: 05/02/2024 Provider: Dr. Iam Curry If you are experiencing any problems related to your procedure, please contact Interventional Radiology at [phone] during normal business hours: Sunday- Sunday 7:30 am - 4 pm. If a problem occursoutside of normal business hours, please call the hospital directory assistance operator at [phone] and ask for theInterventional Radiologist alteration workroom supervisor. Contact scheduling for Interventional Radiology at [phone] during normal business hours: Sunday-Sunday, 7:30 am - 4 pm. The information below provides you with the instructions and the list of medications you need to betaking following discharge from the hospital. If you have any questions, please ask before leaving.Please carry this letter with you when you see your doctor in the clinic. If you have questions, you can reach us at the numbers above. SPECIAL INSTRUCTIONS Mediport Insertion (Implanted Central Venous Access) A Mediport is a sealed chamber covered by a silicone disc that is surgically placed in a pocket under the skin on the upper chest, just below the collarbone. This chamber connects to a flexible tube that goes into a large vein in the neck. The tip is near the heart. The port provides direct access to the bloodstream and can be used in drawing blood samples and giving intravenous fluids and medications. Some ports allow CT scan injections; these ports are referred to as "Power Ports." The port will be visible only as a small raised area beneath your skin. Home Care If you experience pain or discomfort at the site you may use a cold pack on the site and/or take acetaminophen (Tylenol) or your preferred pain medicine as directed. Avoid contact sports or any activity that may cause blunt force impact to the port area, as it may damage your port. Avoid strenuous activity for 24 to 48 hours after the procedure. Do not lift anything heavier than 10 pounds for 3 days after the procedure. Gradually increase your activity after 24 to 48 hours after the procedure. No dressing changes or wound care are needed at the insertion site. Your wound is closed with sutures on the inside and then sealed on the outside with a special "skin glue" called Dermabond (a surgical glue). Depending on your physician's preference, there may also be "steri strips" applied. It isvery important to let these special bandages fall off on their own. Please do not scrub or pull these bandages off. You may gently wash the area with soap and water. Depending on your physician's preference, there may also be gauze and Tegaderm (clear) bandage overthe Mediport insertion site. You may remove this bandage in 24 hours. You may shower in 24 hours. Gently wash the area and pat it dry. Please DO NOT take a bath, soak in a hot tub, or swim until the wound is completely healed. Your port must be accessed and flushed/heparinized every 30 days if it is not currently being used. When to Call Interventional Radiology Call Interventional Radiology right away if you have any of the following: Fever above 100 degrees Fahrenheit Increased bleeding, redness, swelling, warmth, or discharge at the incision site. Constant or increasing pain, numbness, coldness, or tingling around the incision area. Vomiting or nausea that does not go away If at any time you experience any of the following or feel you are having a medical emergency, [email or web address] for emergency assistance. Chest Pain Sudden, severe shortness of breath Rapid heart rate Sudden onset of weakness Do not smoke or use tobacco products in any way! If you feel suicidal or homicidal, please call the crisis hotline at [phone]-IQEL ([phone]) MODERATE SEDATION You may have received medication that made you comfortable/sedated you during your procedure. This is considered moderate sedation. This medication was given to relax you. You may also not remember having the procedure done. It may take up to 24 hours for this medication to be out of your system. Because of this, you should observe the following for the next 24 hours: Do not drink alcohol or take depressant drugs. Do not operate any type of machinery that requires hand-eye coordination. Do not sign any legal papers or documents. Do not make any financial decisions. You should be in the presence of an adult for the remainder of the day. If you are experiencing any problems related to your procedure, you should contact the Interventional Radiology physician unless otherwise directed. Driving: You may resume driving 1 day . Diet: You may resume your current diet as tolerated. Return to work or school: You may return to school or work 1 days after the procedure, unless otherwise instructed by the physician. documented in this encounter H&P Notes * Iam Curry MD - 05/02/2024 11:38 AM EST HISTORY & PHYSICAL - Interventional Radiology Service [facility]-[address] [address] Name: Yuli Gutierrez Location: OR [facility]/OR Date: 05/02/2024 Time: 11:39 AM CHIEF COMPLAINT: Port placement HISTORY OF PRESENT ILLNESS: Malignant neoplasm of upper-outer quadrant of left breast Past Medical History: Diagnosis Date History of gestational diabetes Motion sickness Past Surgical History: Procedure Laterality Date DENTAL SURGERY PROCEDURE NEC Age 12 ERCP, DIAGNOSTIC, SPECIMEN COLLECTION N/A 02/08/2024 choledocholithiasis, complete removal/one plastic pancreatic stent placed into ventral pancreatic duct/ENDOSCOPIC RETROGRADE CHOLANGIOPANCREATOGRAPHY (ERCP) DIAGNOSTIC performed by Jeffrey Kerr MD at OR [facility] US GUIDED BREAST BIOPSY LEFT Left 04/15/2024 Social History Socioeconomic History Marital status: Spouse name: Not on file Number of children: Not on file Years of education: Not on file Highest education level: Not on file Occupational History 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 Tobacco Use Smoking status: Never Smokeless tobacco: [...] Stability Do you currently live in a group home or have no steady place to sleep [...] - for ages0-17 years): Not on file Family History Problem Relation Name Age of Onset No Known Problems Mother Diabetes Father Colon cancer Grandmother (Maternal) Other (old age) Grandfather (Maternal) Heart attack Grandfather (Paternal) Review of patient's allergies indicates: No Known Allergies Current Facility-Administered Medications Medication Dose Route Frequency Provider Last Rate Last Admin Isolyte-S pH 7.4 infusion Intravenous Continuous Iam Curry MD 10 mL/hr at 05/02/24 1102 New Bag at 05/02/24 1102 REVIEW OF SYSTEMS: Constitutional: (-) fever chills sweats or weight loss Cardiovascular: (-) negative: no chest pain, dyspnea, syncope, or palpitations Pulmonary: (-) negative: no cough, wheezing, or shortness of breath Abdominal/GI: (-) negative: no pain, heartburn, dysphagia, bleeding, change in bowel habits, nauseaor vomiting OBJECTIVE: BP 109/60 | Pulse 50 | Temp 36.2 C (97.2 F) (Temporal Artery) | Ht 1.753 m (5' 9.02") | Wt 88.5kg (195 lb) | SpO2 100% | BMI 28.78 kg/m | BSA 2.08 m PHYSICAL EXAM: Constitutional: no acute distress CV: normal rate and rhythm, no murmur, gallops or rub Chest: normal respiratory effort, lungs clear to auscultation and percussion, breath sounds normal Abdomen: normal: soft, bowel sounds normal, no masses, tenderness or organomegaly LABS: CBC Results: PT INR Results: Results for orders placed or performed in visit on 04/24/24 PT INR Result Value Ref Range Prothrombin Time 12.9 11.6 - 15.2 seconds INR 1.0 0.8 - 1.2 Results for orders placed or performed in visit on 01/16/24 PT INR Result Value Ref Range Prothrombin Time 13.2 11.6 - 15.2 seconds INR 1.0 0.8 - 1.2 Results for orders placed or performed in visit on 12/31/23 PT INR Result Value Ref Range Prothrombin Time 12.7 11.6 - 15.2 seconds INR 1.0 0.8 - 1.2 BUN Results: Lab Results Component Value Date/Time BUN - [facility] 17 05/01/2024 08:42 AM BUN - [facility] 20 01/16/2024 02:58 PM BUN - [facility] 20 01/03/2024 08:07 AM Creatinine Results: Lab Results Component Value Date/Time CREATININE - [facility] 0.9 05/01/2024 08:42 AM CREATININE - [facility] 1.1 (H) 01/16/2024 02:58 PM CREATININE - [facility] 1.0 01/03/2024 08:07 AM CREATININE - [facility] 1.00 12/24/2023 12:00 AM CREATININE - [facility] 0.81 04/18/2023 12:00 AM Potassium Results: Lab Results Component Value Date/Time POTASSIUM - [facility] 4.7 05/01/2024 08:42 AM POTASSIUM - [facility] 4.8 01/16/2024 02:58 PM POTASSIUM - [facility] 4.1 01/03/2024 08:07 AM POTASSIUM - [facility] 3.8 12/24/2023 12:00 AM POTASSIUM - [facility] 3.9 04/18/2023 12:00 AM INFORMED CONSENT: Yes PRE-SEDATION ASSESSMENT IMPRESSION/PLAN: Port placement Iam Curry MD documented in this encounter Nursing Notes * Kolton Oliveros RN - 05/02/2024 12:01 PM EST Pt condition was reassessed by Dr. Iam Curry immediately prior to start of moderate sedation and procedure. * Candida Quinones RN - 05/02/2024 10:47 AM EST Patient or the Patients Legally Authorized Crust Sorter has been advised that (1) the Patient meets criteria for testing and (2) the administration of anesthesia, radiation or other imaging agents may have a harmful impact to an unborn child. The Patient or Patients Representativewere offered the opportunity to ask questions as to necessity of such testing and potential outcomes. Consent for testing has been given. documented in this encounter OR Notes * OR Surgeon - Iam Curry MD - 05/02/2024 1:45 PM EST Procedure: chest medical port placement 05/02/24 INDICATION: central intravenous access needed for chemotherapy.] ATTENDING (OPERATING PHYSICIAN): [Antoinette] CONSENT: After a detailed discussion of the procedure, risks, benefits and alternative treatment options, informed consent was obtained. TIME OUT: A time out procedure was performed. The patient's identification was verified. Informed consent with agreement of procedure, site and position was obtained. All necessary equipment was available prior to procedure. CONTRAST: No contrast was administered. COMPLICATIONS: None. ANESTHESIA: [Local lidocaine.] [IV Versed.] [IV Fentanyl.] SEDATION TIME: [Start to end: [id number]]. Qualified nurse sedation observer [harpster], RN.] MEDICATIONS: See MAR PROCEDURE DESCRIPTION: The [right] neck and chest were prepped and draped in the usual sterile fashion. After local anesthesia, a small incision was made at the site of venous access in the neck. Using real-time ultrasound guidance, the internal jugular vein was punctured with a micro puncture needle. Digital ultrasound images were acquired and digitally archived. A wire and sheath were used to secure access to the internal jugular vein access using fluoroscopic guidance. [A second incision was made in the upper chest and a pocket was created. The medical port catheter was tunneled from the pocket to the venotomy site. A peel- away sheath was placed through the venotomy over the wire and the catheter was advanced through a peel-away sheath and positioned under fluoroscopic guidance. The catheter was then measured to [23] cm, cut, and attached to a power injectable port.] Once the medical port and catheter were in satisfactory position, the medical port was accessed, had appropriate blood return, and easily flushed and was locked with dilute heparin. [The incision wasthen closed in layers with absorbable sutures and tissue adhesive.] The venotomy site was closed with [absorbable suture and] tissue adhesive. I personally performed the procedure. Findings: Ultrasound shows an anechoic and compressible [right] internal jugular vein. The medical port is inthe upper chest with the catheter tip at the [right atrium] Impression: Successful placement of a chest power injectable medical port. documented in this encounter Miscellaneous Notes * Postprocedure Note - Iam Curry MD - 05/02/2024 11:55 AM EST PROCEDURE NOTE - Interventional Radiology [facility]-[address] [address] Name: Ylui Gutierrez Location: [facility] Date: 05/02/2024 Time: 12:26 PM PROCEDURE: port placement LENS FABRICATING MACHINE TENDER: Dr. Iam Curry ASSISTANTS: none ANESTHESIA: local conscious sedation COMPLICATIONS: none SPECIMEN: none ESTIMATED BLOOD LOSS: negligible FINDINGS: right IJ patent * Pre-Sedation Assessment - Iam Curry MD - 05/02/2024 11:50 AM EST PRE-SEDATION ASSESSMENT PRE-SEDATION ASSESSMENT: Port Placement Level of sedation planned: Moderate Patient's allergies reviewed: Yes H&P Review / Interval Note Documentation: There is no H&P on file. Difficulty with sedation / anesthesia: No Sleep apnea: No History of snoring: No History of difficult intubation: No Decreased ROM neck flexion/extension: No Tracheal deviation: No Decreased ability to open mouth / TMJ: No Loose teeth / dentures / partial: No Congenital deformities / abnormalities: No Dysphagia: No Mallampati Classification: II - soft palate, uvula, fauces visible Chest: Clear Heart: Regular Rhythm Adequate Vascular Access: Yes ASA Risk Stratification (Select One): ASA 2 - Mild systemic disease, no functional limitations documented in this encounter Plan of Treatment Upcoming Encounters Date Type Department Care Team (Late st Contact Info) Description 05/07/2024 8:00 AM EST Imaging Radiology [facility] 1st [facility], [place] [address] [facility] [place] [address] 05/07/2024 11:30 AM EST Pt Ed by Nurse Hematology/Oncology Scenery [place] [address] [place] [id number] [place], Nurse Hem Onc Scenery [address] [place] [address] 05/07/2024 12:30 PM EST Laboratory Laboratory Scenery [place] [address] [place] [address] [place], Lab Scenery [address] [place] [address] 05/08/2024 8:45 AM EST Hem/Onc Treatment Hematology/Oncology Treatment, [place] [address] [place] [address] [place], Chair 9 Hem Onc Scenery [address] [place] [address] 05/12/2024 10:00 AM EST Office Visit Family Practice [facility] [address] [facility] [place] [address] [place] [address] [place] [address] 08/06/2024 9:00 AM EST Telemedicine Genetics HemOnc, [facility] [address] [place] [address] Estephania Reyes, [place] [address] [place] [address] Health Maintenance Due Date [...] this encounter Medical Devices Implanted Type Area Pediatrician Device Identifier Shelf Expiration Date Model / Serial / Lot Therese Angulo 4fr 11cm - [id number] Implanted:Qty : 1 on 02/08/2024 by Jeffrey Kerr MD at OR [facility] AC [employer] [id number] 08/16/2028 [id number] / / [id number] Port Implant W8f Poly Cath - [id number] Implanted:Qty : 1 on 05/02/2024 by Iam Curry MD at OR [facility] Right: Chest CR BARD : PERIPHERAL VASCULAR [id number] 05/17/2025 [id number] / / [id number] documented as of this encounter Procedures Procedure Name Priority Date/Time Associated Diagnosis Comments IR INTERVENTIONAL RADIOLOGY PROCEDURE IN OR Routine 05/02/2024 12:26 PM EST URINE SCREEN, POINT OF CARE (ENTER/EDIT) STAT 05/02/2024 10:48 AM EST documented in this encounter Results * IR INTERVENTIONAL RADIOLOGY PROCEDURE IN OR (05/02/2024 12:26 PM EST) 05/02/2024 2:41 PM EST Impressions [facility] RADIOLOGY - 05/02/2024 2:39 PM EST IMPRESSION: Successful placement of a chest power injectable medical port. Narrative [facility] RADIOLOGY - 05/02/2024 2:39 PM EST PROCEDURE: chest medical port placement 05/02/24 INDICATION: central intravenous access needed for chemotherapy. ATTENDING (OPERATING PHYSICIAN): Antoinette CONSENT: After a detailed discussion of the procedure, risks, benefits and alternative treatment options, informed consent was obtained. TIME OUT: A time out procedure was performed. The patient's identification was verified. Informed consent with agreement of procedure, site and position was obtained. All necessary equipment was available prior to procedure. CONTRAST: No contrast was administered. COMPLICATIONS: None. ANESTHESIA: Local lidocaine. IV Versed. IV Fentanyl. SEDATION TIME: Start to end: [id number]. Qualified nurse sedation observer TAMIKO ewing. MEDICATIONS: See MAR PROCEDURE DESCRIPTION: The right neck and chest were prepped and draped in the usual sterile fashion. After local anesthesia, a small incision was made at the site of venous access in the neck. Using real-time ultrasound guidance, the internal jugular vein was punctured with a micro puncture needle. Digital ultrasound images were acquired and digitally archived. A wire and sheath were used to secure access to the internal jugular vein access using fluoroscopic guidance. A second incision was made in the upper chest and a pocket was created. The medical port catheter was tunneled from the pocket to the venotomy site. A peel-away sheath was placed through the venotomy over the wire and the catheter was advanced through a peel-away sheath and positioned under fluoroscopic guidance. The catheter was then measured to 23 cm, cut, and attached to a power injectable port. Once the medical port and catheter were in satisfactory position, the medical port was accessed, had appropriate blood return, and easily flushed and was locked with dilute heparin. The incision was then closed in layers with absorbable sutures and tissue adhesive. The venotomy site was closed with absorbable suture and tissue adhesive. I personally performed the procedure. FINDINGS: Ultrasound shows an anechoic and compressible right internal jugular vein. The medical port is in the upper chest with the catheter tip at the right atrium Procedure Note Iam Curry MD - 05/02/2024 PROCEDURE: chest medical port placement 05/02/24 INDICATION: central intravenous access needed for chemotherapy. ATTENDING (OPERATING PHYSICIAN): Antoinette CONSENT: After a detailed discussion of the procedure, risks, benefits andalternative treatment options, informed consent was obtained. TIME OUT: A time out procedure was performed. The patient's identificationwas verified. Informed consent with agreement of procedure, site andposition was obtained. All necessary equipment was available prior toprocedure. CONTRAST: No contrast was administered. COMPLICATIONS: None. ANESTHESIA: Local lidocaine. IV Versed. IV Fentanyl. SEDATION TIME: Start to end: [id number]. Qualified nurse sedation TAMIKO bergman. MEDICATIONS: See MAR PROCEDURE DESCRIPTION: The right neck and chest were prepped and draped inthe usual sterile fashion. After local anesthesia, a small incision wasmade at the site of venous access in the neck. Using real-timeultrasound guidance, the internal jugular vein was punctured with a micropuncture needle. Digital ultrasound images were acquired and digitallyarchived. A wire and sheath were used to secure access to the internaljugular vein access using fluoroscopic guidance. A second incision was made in the upper chest and a pocket was created.The medical port catheter was tunneled from the pocket to the venotomysite. A peel-away sheath was placed through the venotomy over the wire andthe catheter was advanced through a peel-away sheath and positioned underfluoroscopic guidance. The catheter was then measured to 23 cm, cut, andattached to a power injectable port. Once the medical port and catheter were in satisfactory position, themedical port was accessed, had appropriate blood return, and easilyflushed and was locked with dilute heparin. The incision was then closedin layers with absorbable sutures and tissue adhesive. The venotomy sitewas closed with absorbable suture and tissue adhesive. I personally performed the procedure. FINDINGS: Ultrasound shows an anechoic and compressible right internal jugular vein.The medical port is in the upper chest with the catheter tip at the rightatrium IMPRESSION IMPRESSION: Successful placement of a chest power injectable medical port. Iam Curry MD RAD SPECIAL PROCEDURES Final Res ult [employer] RADIOLOGY * URINE SCREEN, POINT OF CARE (ENTER/EDIT) (05/02/2024 10:48 AM EST) hCG Beta, Urine Negative Negative Procedural Control Valid? Yes Lot Number [id number] Expiration Date 03/11/2025 Urine 05/02/2024 10:4 8 AM EST Iam Curry MD LAB POINT OF CARE TEST ENTER/DONNA T ORDERABLES Final Result documented in this encounter Administered Medications Inactive Administered Medications - up to 3 most recent administrations Medication Order MAR Action Action Date Dose Rate Site ceFAZolin in dextrose (Ancef) ivpb 2 g 2 g, IV Piggyback, ONCE, 1 dose, On Sun05/02/24 at 1215 New Bag 05/02/2024 12:07 PM EST 2 g 100 mL/hr Hand Left Isolyte-S pH 7.4 infusion Intravenous, at 10 mL/hr, Plasma-LYTE 148, isolyte-S, and isolyte-S pH 7.4 are considered equivalent - including for MAR barcode scanning., CONTINUOUS, Starting on Sun05/02/24 at 1100, Until Sun05/02/24 at 1745 New Bag 05/02/2024 11:02 AM EST 10 mL/hr ondansetron (Zofran) inj 4 mg 4 mg, IV Push, ONCE, On Sun05/02/24 at 1415, For 1 dose Given 05/02/2024 1:35 PM EST 4 mg Povidone-Iodine nasal swab 1 Swab 1 Swab, Nasal, ONCE, On Sun05/02/24 at 1100, For 1 dose, Administer as per sheet rock installation helper instructions unless contraindicated., Pre-Op Given 05/02/2024 11:00 AM EST 1 Swab documented in this encounter Active and Recently Administered Medications Times are shown in EST. Scheduled Medication Order 04/30/2024 05/01/2024 05/02/2024 ceFAZolin in dextrose (Ancef) ivpb 2 g (COMPLETED) 2 g, IV Piggyback, ONCE, 1 dose, On Sun05/02/24 at 1215 1207 (New Bag - Prov ider: Dean Ewing RN) ondansetron (Zofran) inj 4 mg (COMPLETED) 4 mg, IV Push, ONCE, On Sun05/02/24 at 1415, For 1 dose 1335 (Given - Provid er: Anai Aguillon RN) Povidone-Iodine nasal swab 1 Swab (COMPLETED) 1 Swab, Nasal, ONCE, On Sun05/02/24 at 1100, For 1 dose, Administer as per sheet rock installation helper instructions unless contraindicated., Pre-Op 1100 (Given - Provid er: Candida Quinones RN - Comment: both nares) Continuous Medication Order 04/30/2024 05/01/2024 05/02/2024 Isolyte-S pH 7.4 infusion Intravenous, at 10 mL/hr, Plasma-LYTE 148, isolyte-S, and isolyte-S pH 7.4 are considered equivalent - including for MAR barcode scanning., CONTINUOUS, Starting on Sun05/02/24 at 1100, Until Sun05/02/24 at 1745 1102 (New Bag - Prov ider: Candida Quinones RN) PRN Medication Order 04/30/2024 05/01/2024 05/02/2024 buffered lidocaine 1 % inj (CANCELED) ONCE PRN INTRA PROCEDURE, Starting on Sun05/02/24 at 1216, Until Sun05/02/24 at 1227, Intra-Op 1216 (Given - Provid er: Iam Curry MD) fentaNYL (PF) inj (CANCELED) ONCE PRN INTRA PROCEDURE, Starting on Sun05/02/24 at 1206, Until Sun05/02/24 at 1227, Intra-Op 1202 (Given - Provid er: Dean Ewing RN)1209 (Given - Provider: Dean Ewing RN) hEParin 100 UNIT/ML Lock Flush inj (CANCELED) ONCE PRN INTRA PROCEDURE, Starting on Sun05/02/24 at 1216, Until Sun05/02/24 at 1227, Intra-Op 1216 (Given - Provid er: Iam Curry MD) midazolam (Versed) 2 MG/2ML inj (CANCELED) ONCE PRN INTRA PROCEDURE, Starting on Sun05/02/24 at 1202, Until Sun05/02/24 at 1227, Intra-Op 1202 (Given - Provid er: Dean Ewing RN) documented in this encounter Care Teams Business Analyst Sales Operations Relationship Specialty Start Date End Date Malinda Owens CRNP [address] [place] [address] PCP - General Nurse Practitioner 09/20/23 documented as of this encounter
--- OUTSIDE RECORDS SUMMARY | 2024-09-05 14:43 | External Medical Summary | Summary of Care ---
Author Name Unknown Organization [facility] Address [address] [place] [address] Phone [phone] Care Team Providers Care Pharmaceutical Assistant Name Role Phone Malinda Owens Primary Care Provider [phone] Reason for Referral * Evaluate & Treat - Unlimited Visits (Within 24 hrs (call dept; emergent)) - Pending Review Specialty Diagnoses / Procedures Referred By Bennie gilliland Referred To Contact Obstetrics/Gynecology / Fertility Diagnoses Malignant neoplasm of upper-outer quadrant of left breast in female, estrogen receptor negative (HCC) Em Ng MD [address] [place] [address] [place] [address] Phone: tel: fax: Referral ID Status Reason Start Date Expiration Date Visits Requested Visits Authorized [id number] Pending Review Specialty Services Required 4 999 [...] Contact Info) Description 05/07/2024 Telephone Hematology/Oncology Treatment, [place] [address] [place] [address] Em Ng MD [address] [place] [address] [place] [phone] Referral Allergies No known active allergiesdocumented as [...] complete. Enrolled in Current Health. Plans to cloth picker meter from pharmacy today. Instructions provided [...] and class I obesity. Per review of STOCK GRADER documentation of 09/25/23, blood glucose values have [...] Recommend nutrition consult with RDN (Registered Dietitian Pump And Still Operator). Lifestyle changes are also indicated including [...] and folate levels and referral to a cosmetic sales consultant. If hemoglobin levels are below 8 g/dl, we recommend Maternal Medicine ultrasound for growth every 4 weeks after 24 weeks. Consider a blood transfusion if hemoglobin levels fall below 6 g/dL. ([employer] Practice Bulletin Number 95, December,). Consider [...] money to get more. 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 [address] Estephania Reyes, [place] [address] [place], [place] [id number] Scheduled Referrals Name Type Priority Associated Diagnoses [...] this encounter Medical Devices Implanted Type Area Grit Removal Operator Device Identifier Shelf Expiration Date Model / Serial / Lot Stent Kev 4fr 11cm - [id number] Implanted:Qty : 1 on 02/08/2024 by Jeffrey Kerr MD at OR [facility] [employer] [id number] 08/16/2028 [id number] / / [id number] Port Implant W8f Poly Cath - [id number] Implanted:Qty : 1 on 05/02/2024 by Iam Curry MD at OR [facility] Right: Chest CR BARD : PERIPHERAL VASCULAR [id number] 05/17/2025 [id number] / / [id number] documented as of this encounter Visit Diagnoses [...] Primary documented in this encounter Care Teams Pharmaceutical Assistant Relationship Specialty Start Date End Date Malinda Owens CRNP 132 [facility] [place] [address] PCP - General Nurse Practitioner 09/20/23 documented as of this encounter
--- OUTSIDE RECORDS SUMMARY | 2024-09-05 14:43 | External Medical Summary | Summary of Care ---
Author Name Unknown Organization [facility] Address [address] [facility] [place] [address] Phone [phone] Care Team Providers Care Filling Hauler Weaving Name Role Phone Malinda Owens Primary Care Provider [phone] Reason for Visit * Precert (Within 24 hrs (call dept; emergent)) - Authorized Specialty Diagnoses / Procedures Referred By Contac t Referred To Contact Radiology Diagnoses Malignant neoplasm of upper-outer quadrant of left breast in female, estrogen receptor negative (HCC) Procedures PET CT SKULL BASE TO MID-THIGH FDG Em Ng MD [address] [facility] [place] [address] Phone: tel: fax: Referral ID Status Reason Start Date Expiration Date V isits Requested Visits Authorized [id number] Authorized Precert 05/01/2024 05/31/2024 999 999 Encounter Details Date Type Department Care Team (Latest Contact Info) Description 05/01/2024 6:57 AM EST - 05/01/2024 11:59 PM EST Hospital Encounter Radiology, [facility] [address] [place] [address] Arrived Discharge Disposition: Home - Self Care Allergies No known active allergiesdocumented as of this encounter (statuses as of 05/02/2024) Medications 19 29-1 MG Oral Tablet Chewable Take by mouth. Suspended Ibuprofen 600 MG Oral Tablet (Motrin) Take 1 Tablet by mouth every 6 hours as needed (pain). 11/02/19 24 024 Discontinued (Medication List Clean Up) diphenhydrAMINE HCl 25 MG Oral Tablet (Benadryl)Indicat ions:Malignant neoplasm of upper-outer quadrant of left breast in female, estrogen receptor negative (HCC),Encounter for antineoplastic chemotherapy,Enco unter for prevention of neutropenia due to chemotherapy Take by mouth 1 Capsule 12 hours prior to paclitaxel infusion. Do not start before May 06, 2024. 12 Tablet 05/06/20 24 024 Discontinued (Medication List Clean Up) Famotidine 20 MG Oral Tablet (Pepcid)Indicatio ns:Malignant neoplasm of upper-outer quadrant of left breast in female, estrogen receptor negative (HCC),Encounter for antineoplastic chemotherapy,Enco unter for prevention of neutropenia due to chemotherapy Take by mouth 1 Tablet 12 hours prior to paclitaxel infusion. Do not start before May 06, 2024. 12 Tablet 05/06/20 24 Suspended dexAMETHasone 4 MG Oral Tablet (Decadron)Indicat ions:Malignant neoplasm of upper-outer quadrant of left breast in female, estrogen receptor negative (HCC),Encounter for antineoplastic chemotherapy,Enco unter for prevention of neutropenia due to chemotherapy Take 2 Tablets by mouth in the morning for 3 days. With food on days 2, 3, and 4 of chemo and as directed.. Do not start before May 07, 2024. 24 Tablet 05/07/20 24 024 Suspended Prochlorperazine Maleate 10 MG Oral Tablet (Compazine)Indica tions:Malignant neoplasm of upper-outer quadrant of left breast in female, estrogen receptor negative (HCC),Encounter for antineoplastic chemotherapy,Enco unter for prevention of neutropenia due to chemotherapy Take 1 Tablet by mouth every 6 hours as needed for Nausea. Do not start before May 06, 2024. 30 Tablet 5 05/06/20 24 Suspended OLANZapine 10 MG Oral Tablet (zyPREXA)Indicati ons:Malignant neoplasm of upper-outer quadrant of left breast in female, estrogen receptor negative (HCC),Encounter for antineoplastic chemotherapy,Enco unter for prevention of neutropenia due to chemotherapy Take 1 Tablet by mouth at bedtime for 4 days. On days 1, 2, 3, and 4 of chemo. Do not start before May 06, 2024. 16 Tablet 05/06/20 24 024 Suspended documented as of this encounter (statuses as of 05/02/2024) Active Problems Problem Noted Date Diagnosed Date [...] complete. Enrolled in Current Health. Plans to mixing picker tender meter from pharmacy today. Instructions [...] and class I obesity. Per review of PROCESS MOLD TECHNICIAN documentation of 09/25/23, blood glucose values [...] nutrition consult with RDN (Registered Dietitian Director Biomedical Engineering). Lifestyle changes are also indicated including [...] and folate levels and referral to a metal tile setter. If hemoglobin levels are below 8 g/dl, we recommend Maternal Medicine ultrasound for growth every 4 weeks after 24 weeks. Consider a blood transfusion if hemoglobin levels fall below 6 g/dL. ([employer]stetric[employer] and [employer] Frame Surgical Elastic Knitter Practice Bulletin Number 95, December,). Consider Venofer [...] as of this encounter (statuses as of 05/02/2024) Resolved Problems Problem Noted Date Diagnosed Date Resolved Date Abnormal glucose tolerance i n mother complicating 04/19/2023 08/31/2023 Overview (04/19/2023): Failed early glucola. 3hr GTT ordered documented as of this encounter (statuses as of 05/02/2024) Immunizations Name Administration Dates Next Due DTP [...] money to get more. 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 1st [facility] [address] [place] [address] 05/07/2024 11:30 AM EST Pt Ed by Nurse Hematology/Oncology [place] [address] [place] [phone] [place], Nurse Hem Onc Scenery [address] [place] [address] 05/07/2024 12:30 PM EST Laboratory Laboratory Scenery [place] [address] [place] [phone] [place], Lab Scenery [address] [facility] [place] [address] 05/08/2024 8:45 AM EST Hem/Onc Treatment Hematology/Oncology Treatment, [place] [address] [place] [phone] [place], Chair 9 Hem Onc Scenery [address] [place] [address] 05/12/2024 10:00 AM EST Office Visit Family Practice [facility] [address] [place] [address] Malinda Owens CRNP [address] [place] [address] 08/06/2024 9:00 AM EST Telemedicine Genetics HemOnc, [facility] [address] [place], [place] [phone] Estephania Reyes, [place] [address] [place] [address] Scheduled Procedures Name Priority Associated Diagnoses Date/Ti me INSERT TUNNELED CENTRAL VENOUS ACCESS WITH SUBQ PORT Malignant neoplasm of upper-outer quadrant of left breast in female, estrogen receptor negative (HCC) 05/02/2024 11:48 AM EST Health Maintenance Due Date Last [...] this encounter Medical Devices Implanted Type Area Bond Writer Device Identifier Shelf Expiration Date Model / Serial / Lot Stent eKv 4fr 11cm - [id number] Implanted:Qty: 1 on 02/08/2024 [facility] [id number] 08/16/2028 [id number] / / [id number] documented as of this encounter Procedures Procedure Name Priority Date/Time Associated Diagnosis Comments PET CT SKULL BASE TO MID-THIGH STAT 05/01/2024 8:44 AM EST Malignant neoplasm of upper-outer [...] agree with the resident/fellow physician's interpretation. us Em Ng MD [facility] NUCLEAR MED Final Result documented in this encounter Care Teams Filling Hauler Weaving Relationship Specialty Start Date End Date Malinda Owens CRNP 132 [facility] [place] [address] PCP - General Nurse Practitioner 09/20/23 documented as of this encounter
--- OUTSIDE RECORDS SUMMARY | 2024-09-05 14:43 | External Medical Summary | Summary of Care ---
Author Name Unknown Organization [facility] Address [address] [place] [address] Phone [phone] Care Team Providers Care Casket Inspector Name Role Phone Malinda Owens Primary Care Provider [phone] Reason for Visit * Reason Onset Date Comments Billing Questions 05/07/2024 Encounter Details Date Type Department Care Team (Late st Contact Info) Description 05/07/2024 Telephone [facility] [address] [place] [address] Lilia Marques PA-C [address] [facility] [place] [address] Billing Questions Allergies No known active allergiesdocumented [...] and class I obesity. Per review of COMPENSATION AND BENEFITS MANAGER documentation of 09/25/23, blood glucose values [...] Recommend nutrition consult with RDN (Registered Dietitian Tallow Maker). Lifestyle changes are also indicated including optimizing [...] and folate levels and referral to a claim benefit specialist. If hemoglobin levels are below 8 g/dl, we recommend Maternal Medicine ultrasound for growth every 4 weeks after 24 weeks. Consider a blood transfusion if hemoglobin levels fall below 6 g/dL. ([employer] Obstetricians and Scrubbing Machine Operator Practice Bulletin Number 95, December,). [...] money to get more. Never true 03/26/2024 [place] Depression Scale Answer Date Recorded [place] Depression Scale Total 6 12/11/2023 The thought [...] No 03/26/2024 Does the household have a [facility] hospitall[facility] source of income? 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 Please contact pt & update notes in snapshot. Please sign encounter to close phone message. Copy in chart documented in this encounter Plan of Treatment Upcoming Encounters Date Type Department Care Team (Late st Contact Info) Description 05/08/2024 9:00 AM EST Office Visit Hematology/Oncology [facility] [place] [address] [place] [phone] Em Ng MD [address] [facility] [address] 05/08/2024 9:30 AM EST Hem/Onc Treatment Hematology/Oncology Treatment, [place] [address] [place] [phone] [place], Chair 9 Hem Onc [facility] [address] [facility] [address] 05/12/2024 10:00 AM EST Office Visit Family Practice [facility] [address] [facility] [address] Malinda Owens CRNP [address] [facility] [address] 08/06/2024 9:00 AM EST Telemedicine Genetics HemOnc, [facility] [address] [place] [address] Estephania Reyes, [place] [address] [place] [address] Health Maintenance Due Date Last [...] this encounter Medical Devices Implanted Type Area Solution Lead Device Identifier Shelf Expiration Date Model / Serial / Lot Stent Angulo 4fr 11cm - [id number] Implanted:Qty : 1 on 02/08/2024 by Jeffrey Kerr MD at OR [facility] [employer] [id number] 08/16/2028 [id number] / / [id number] Port Implant W8f Poly Cath - [id number] Implanted:Qty : 1 on 05/02/2024 by Iam Curry MD at OR [facility] Right: Chest CR BARD : PERIPHERAL VASCULAR [id number] 05/17/2025 [id number] / / [id number] documented as of this encounter Care Teams Casket Inspector Relationship Specialty Start Date End Date Malinda Owens CRNP 132 [facility] [place] [address] PCP - General Nurse Practitioner 09/20/23 documented as of this encounter
--- OUTSIDE RECORDS SUMMARY | 2024-09-05 14:43 | External Medical Summary | Summary of Care ---
Author Name Unknown Organization [facility] Address [address] [facility] [place] [address] Phone [phone] Care Team Providers Care Commercial Real Estate Manager Name Role Phone Malinda Owens Primary Care Provider [phone] Reason for Visit * Reason Onset Date Comments Medication Refill 05/05/2024 Encounter Details Date Type Department Care Team (Late st Contact Info) Description 05/05/2024 Refill Hematology/Oncology [facility] [address] [place] [address] Em Ng MD [address] [facility] [place] [address] Malignant neoplasm of upper-outer quadrant of left breast in female, estrogen receptor negative (HCC)* Allergies No known active allergiesdocumented as of this encounter (statuses as of 05/05/2024) Medications 29-1 MG Oral Tablet Chewable Take [...] as of this encounter (statuses as of 05/05/2024) Active Problems Problem Noted Date Diagnosed Date [...] and class I obesity. Per review of MANUSCRIPT READER documentation of 09/25/23, blood glucose values have [...] Recommend nutrition consult with RDN (Registered Dietitian Cleaning Porter). Lifestyle changes are also indicated including optimizing [...] folate levels and referral to a business analyst sales operations. If hemoglobin levels are below 8 g/dl, we recommend Maternal Medicine ultrasound for growth every 4 weeks after 24 weeks. Consider a blood transfusion if hemoglobin levels fall below 6 g/dL. ([employer]st[employer]ians and [employer] Crimes Investigator Practice Bulletin Number 95, December,). Consider Venofer [...] as of this encounter (statuses as of 05/05/2024) Resolved Problems Problem Noted Date Diagnosed Date Resolved Date Abnormal glucose tolerance i n mother complicating 04/19/2023 08/31/2023 Overview (04/19/2023): Failed early glucola. 3hr GTT ordered documented as of this encounter (statuses as of 05/05/2024) Immunizations Name Administration Dates Next Due DTP [...] money to get more. Never true 03/26/2024 [place] Depression Scale Answer Date Recorded [place] Depression Scale Total 6 12/11/2023 The thought [...] No 03/26/2024 Does the household have a [facility] livon[facility] source of income? 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 documented in this encounter Plan of Treatment Upcoming Encounters Date Type Department Care Team (Late st Contact Info) Description 05/07/2024 8:00 AM EST Imaging Radiology [facility] 1st [facility] 132 [facility] [place] [address] 05/07/2024 11:30 AM EST Pt Ed by Nurse Hematology/Oncology [place] [address] [place] [phone] [place] Nurse Hem Onc Scenery [address] [place] [address] 05/07/2024 12:30 PM EST Laboratory Laboratory [facility] [place] [address] [place] [phone] [place], Lab Scenery [address] [facility] [place] [address] 05/08/2024 8:45 AM EST Hem/Onc Treatment Hematology/Oncology Treatment, [place] [address] [place] [phone] [place], Chair 9 Hem Onc Scenery [address] [place] [address] 05/12/2024 10:00 AM EST Office Visit Family Practice [facility] 132 [facility] [place] [address] Malinda Owens CRNP [address] [facility] [address] 08/06/2024 9:00 AM EST Telemedicine Genetics HemOnc, [facility] [address] [place] [address] Estephania Reyes, [place] [address] [place] [address] Health Maintenance Due Date Last [...] this encounter Medical Devices Implanted Type Area Disbursing Agent Device Identifier Shelf Expiration Date Model / Serial / Lot Stent Angulo 4fr 11cm - [id number] Implanted:Qty : 1 on 02/08/2024 by Jeffrey Kerr MD at OR [facility] [employer] [id number] 08/16/2028 [id number] / / [id number] Port Implant W8f Poly Cath - [id number] Implanted:Qty : 1 on 05/02/2024 by Iam Curry MD at OR [facility] Right: Chest CR BARD : PERIPHERAL VASCULAR [id number] 05/17/2025 [id number] / / [id number] documented as of this encounter Visit Diagnoses [...] documented in this encounter Care Teams Commercial Real Estate Manager Relationship Specialty Start Date End Date Malinda Owens CRNP [address] [place] [address] PCP - General Nurse Practitioner 09/20/23 documented as of this encounter
--- OUTSIDE RECORDS SUMMARY | 2024-09-05 14:43 | External Medical Summary | Summary of Care ---
Author Name Unknown Organization [facility] Address [address] [place] [address] Phone [phone] Care Team Providers Care Dean Of Admissions Name Role Phone Owens Ridgemargaret AD Primary Care Provider [phone] Encounter Details Date Type Department Care Team (Late st Contact Info) Description 05/01/2024 Orders Only Hematology/Oncology, [facility] [address] [place], [place] [phone] Em Ng MD [address] [place] [phone] Allergies No known active allergiesdocumented as of this encounter (statuses as of 05/02/2024) Medications 29-1 MG Oral Tablet Chewable Take by mouth. Suspe nded Famotidine 20 MG Oral Tablet (Pepcid)Indication s:Malignant neoplasm of upper-outer quadrant of left breast in female, estrogen receptor negative (HCC),Encounter for antineoplastic chemotherapy,Encou nter for prevention of neutropenia due to chemotherapy Take by mouth 1 Tablet 12 hours prior to paclitaxel infusion. Do not start before May 06, 2024. 12 Tablet 05/06/20 24 Suspended Additional Information Patient not taking.Reported on 05/02/2024 [...] Suspended Prochlorperazine Maleate 10 MG Oral Tablet (Compazine)Indicat ions:Malignant neoplasm of upper-outer quadrant of left breast in female, estrogen receptor negative (HCC),Encounter for antineoplastic chemotherapy,Encou nter for prevention of neutropenia due to chemotherapy Take 1 Tablet by mouth every 6 hours as needed for Nausea. Do not start before May 06, 2024. 30 Tablet 5 05/06/20 Suspended OLANZapine 10 MG Oral Tablet (zyPREXA)Indicatio ns:Malignant [...] complete. Enrolled in Current Health. Plans to draft roller picker meter from pharmacy today. Instructions provided [...] and class I obesity. Per review of MACHINE MAINTENANCE TECHNICIAN documentation of 09/25/23, blood glucose values [...] Recommend nutrition consult with RDN (Registered Dietitian Combine Inspector). Lifestyle changes are also indicated including [...] and folate levels and referral to a animal nurse. If hemoglobin levels are below 8 g/dl, we recommend Maternal Medicine ultrasound for growth every 4 weeks after 24 weeks. Consider a blood transfusion if hemoglobin levels fall below 6 g/dL. ([employer] Analyst Practice Bulletin Number 95, December,). Consider [...] money to get more. 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 on file Not on file documented as of this encounter Plan of Treatment Upcoming Encounters Date Type Department Care Team (Late st Contact Info) Description 05/07/2024 8:00 AM EST Imaging Radiology [address] [place] [address] 05/07/2024 11:30 AM EST Pt Ed by Nurse Hematology/Oncology [facility] [address] [place] [phone] Nurse [place] [address] 05/07/2024 12:30 PM EST Laboratory Laboratory [place] [facility] [address] [place] [address] Khris Amato Scenery [address] [place] [address] 05/08/2024 8:45 AM EST Hem/Onc Treatment Hematology/Oncology Treatment, [place] [address] [place] [phone] [place], Chair 9 Hem Onc Scenery [address] [place], [place] [address] 05/12/2024 10:00 AM EST Office Visit Family [facility] [address] [facility] [place] [address] Malinda Owens CRNP [address] [place] [address] 08/06/2024 9:00 AM EST Telemedicine Genetics HemOnc, [facility] [address] [place] [address] Estephania Reyes, PA [address] [place], [place] [phone] Scheduled Procedures Name Priority Associated Diagnoses Date/Ti me INSERT TUNNELED CENTRAL VENOUS ACCESS WITH SUBQ PORT Malignant neoplasm of upper-outer quadrant of left breast in female, estrogen receptor negative (HCC) 05/02/2024 11:41 AM EST Health Maintenance Due Date Last [...] this encounter Medical Devices Implanted Type Area Machine Or Machinery Mechanic Device Identifier Shelf Expiration Date Model / Serial / Lot Stent Kev 4fr 11cm - [id number] Implanted:Qty: 1 on 02/08/2024 by Jeffrey Kerr MD at OR [facility] [employer] [facility] [id number] 08/16/2028 [id number] / / [id number] documented as of this encounter Care Teams Dean Of Admissions Relationship Specialty Start Date End Date Malinda Oewns CRNP [address] [facility] [place] [address] PCP - General Nurse Practitioner 09/20/23 documented as of this encounter
--- OUTSIDE RECORDS SUMMARY | 2024-09-05 14:43 | External Medical Summary | Summary of Care ---
Author Name Unknown Organization [facility] Address [address] [place] [address] Phone [phone] Care Team Providers Care Timber Surveyor Name Role Phone Malinda Owens Primary Care Provider [phone] Reason for Referral * Evaluate & Treat - Unlimited Visits (Within 24 hrs (call dept; emergent)) - Pending Review Specialty Diagnoses / Procedures Referred By Bennie gilliland Referred To Contact Obstetrics/Gynecology / Fertility Diagnoses Malignant neoplasm of upper-outer quadrant of left breast in female, estrogen receptor negative (HCC) Em Ng MD [address] [place] [address] [place] [address] Phone: tel: fax: Referral ID Status Reason Start Date Expiration Date Visits Requested Visits Authorized [id number] Pending Review Specialty Services Required 4 999 [...] Contact Info) Description 05/07/2024 Telephone Hematology/Oncology Treatment, [place] [address] [place] [address] Em Ng MD [address] [place] [address] [place] [phone] Referral Allergies No known active allergiesdocumented as [...] and class I obesity. Per review of FOOT SPECIALIST documentation of 09/25/23, blood glucose values [...] Recommend nutrition consult with RDN (Registered Dietitian Roustabout Crew). Lifestyle changes are also indicated including optimizing [...] and folate levels and referral to a traffic supervisor. If hemoglobin levels are below 8 g/dl, we recommend Maternal Medicine ultrasound for growth every 4 weeks after 24 weeks. Consider a blood transfusion if hemoglobin levels fall below 6 g/dL. ([employer] Intern Practice Bulletin Number 95, December,). Consider Venofer [...] money to get more. 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 [address] Estephania Reyes, [place] [address] [place] [address] Scheduled Referrals Name Type Priority [...] Cancer Screening 01/29/2026 Pap Smear 01/29/2026 01/29/2023, 06/2 11/2019, 07/17/2018, Additional history exists DTap/Tdap Vaccines (9 [...] this encounter Medical Devices Implanted Type Area Trailer Steerer Device Identifier Shelf Expiration Date Model / Serial / Lot Stent Angulo 4fr 11cm - [id number] Implanted:Qty : 1 on 02/08/2024 by Jeffrey Kerr MD at OR [facility] [employer] [id number] 08/16/2028 [id number] / / [id number] Port Implant W8f Poly Cath - [id number] Implanted:Qty : 1 on 05/02/2024 by Iam Curry MD at OR [facility] Right: Chest CR BARD : PERIPHERAL VASCULAR [id number] 05/17/2025 [id number] / / [id number] documented as of this encounter Visit Diagnoses [...] Primary documented in this encounter Care Teams Timber Surveyor Relationship Specialty Start Date End Date Malinda Owens CRNP 132 [facility] [place] [address] PCP - General Nurse Practitioner 09/20/23 documented as of this encounter
--- OUTSIDE RECORDS SUMMARY | 2024-09-05 14:43 | External Medical Summary | Summary of Care ---
Author Name Unknown Organization [facility] Address [address] [place] [address] Phone [phone] Care Team Providers Care Glazing Superintendent Name Role Phone Malinda Owens Primary Care Provider [phone] Reason for Visit * Reason Onset Date Comments Medical Records Request 05/02/2024 Encounter Details Date Type Department Care Team (Late st Contact Info) Description 05/02/2024 Telephone Gynecology/Obstetrics [facility] [address] [place] [address] Praveen Carranza MD [address] [place] [address] Medical Records Request Allergies No known active allergiesdocumented as of this encounter (statuses as of 05/02/2024) Medications 19 29-1 MG Oral Tablet Chewable Take by mouth. Suspe nded Ibuprofen 600 MG Oral Tablet (Motrin) Take 1 Tablet by mouth every 6 hours as needed (pain). 11/02/19 24 Suspended diphenhydrAMINE HCl 25 MG Oral Tablet (Benadryl)Indicati ons:Malignant neoplasm of upper-outer quadrant of left breast in female, estrogen receptor negative (HCC),Encounter for antineoplastic chemotherapy,Encou nter for prevention of neutropenia due to chemotherapy Take by mouth 1 Capsule 12 hours prior to paclitaxel infusion. Do not start before May 06, 2024. 12 Tablet 05/06/20 24 Suspended Famotidine 20 MG Oral Tablet (Pepcid)Indication s:Malignant neoplasm of upper-outer quadrant of left breast in female, estrogen receptor negative (HCC),Encounter for antineoplastic chemotherapy,Encou nter for prevention of neutropenia due to chemotherapy Take by mouth 1 Tablet 12 hours prior to paclitaxel infusion. Do not start before May 06, 2024. 12 Tablet 05/06/20 24 Suspended dexAMETHasone 4 MG Oral Tablet (Decadron)Indicati ons:Malignant [...] 24 Suspended OLANZapine 10 MG Oral Tablet (zyPREXA)Indicatio [...] and class I obesity. Per review of PROFESSOR OF LEGAL STUDIES documentation of 09/25/23, blood glucose values have [...] Recommend nutrition consult with RDN (Registered Dietitian Asphalt Patcher). Lifestyle changes are also indicated including optimizing [...] and folate levels and referral to a tree expert. If hemoglobin levels are below 8 g/dl, we recommend Maternal Medicine ultrasound for growth every 4 weeks after 24 weeks. Consider a blood transfusion if hemoglobin levels fall below 6 g/dL. ([employer] and Epic Radiant Analyst Practice Bulletin Number 95, December,). Consider [...] to get more. 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 Forwarded to [facility] documented in this encounter Plan of Treatment Upcoming Encounters Date Type Department Care Team (Late st Contact Info) Description 05/07/2024 8:00 AM EST Imaging Radiology [address] 132 [facility] [place] [address] 05/07/2024 11:30 AM EST Pt Ed by Nurse Hematology/Oncology Scenery [facility] [address] [place] [phone] [place], Nurse Hem Onc Scenery [address] [place] [address] 05/07/2024 12:30 PM EST Laboratory Laboratory Scenery [place] [address] [place] [phone] [place], Lab Scenery [address] [facility] [place] [address] 05/08/2024 8:45 AM EST Hem/Onc Treatment Hematology/Oncology Treatment, [place] [address] [place] [phone] [place], Chair 9 Hem Onc Scenery [address] [place] [address] 05/12/2024 10:00 AM EST Office Visit Family Practice [facility] [address] [facility] [place] [address] Malinda Owens CRNP 132 [facility] [place] [address] 08/06/2024 9:00 AM EST Telemedicine Genetics HemOnc, [facility] [address] [place] [address] Estephania Reyes, MS [address] [place] [address] Scheduled Procedures Name Priority Associated Diagnoses Date/Ti me INSERT TUNNELED CENTRAL VENOUS ACCESS WITH SUBQ PORT Malignant neoplasm of upper-outer quadrant of left breast in female, estrogen receptor negative (HCC) 05/02/2024 11:26 AM EST Health Maintenance Due Date Last [...] this encounter Medical Devices Implanted Type Area Registered Dietitian Device Identifier Shelf Expiration Date Model / Serial / Lot Stent Kev 4fr 11cm - [id number] Implanted:Qty: 1 on 02/08/2024 by Jeffrey Kerr MD at OR [facility] [employer] [facility] [id number] 08/16/2028 [id number] / / [id number] documented as of this encounter Care Teams Glazing Superintendent Relationship Specialty Start Date End Date Malinda Owens CRNP [address] [place] [address] PCP - General Nurse Practitioner 09/20/23 documented as of this encounter
--- OUTSIDE RECORDS SUMMARY | 2024-09-05 14:43 | External Medical Summary | Summary of Care ---
Author Name Unknown Organization [facility] Address [address] [facility] [place] [address] Phone [phone] Care Team Providers Care Legal Billing Analyst Name Role Phone Ridge Owensmargaret AD Primary Care Provider [phone] Reason for Visit * Reason Onset Date Comments Information 05/01/2024 Encounter Details Date Type Department Care Team (Late st Contact Info) Description 05/01/2024 Telephone Hematology/Oncology Treatment, [place] [address] [place] [address] Sydnee Ng MD [address] [place] [address] Information Allergies No known active allergiesdocumented as of [...] and class I obesity. Per review of DANDY TENDER documentation of 09/25/23, blood glucose values [...] Recommend nutrition consult with RDN (Registered Dietitian Integrated Specialist). Lifestyle changes are also indicated including [...] and folate levels and referral to a horse show manager. If hemoglobin levels are below 8 g/dl, we recommend Maternal Medicine ultrasound for growth every 4 weeks after 24 weeks. Consider a blood transfusion if hemoglobin levels fall below 6 g/dL. ([employer] Disability Rater Practice Bulletin Number 95, December,). Consider Venofer [...] money to get more. 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 Changed premeds to aloxi/ dex instead of emend/ dex/ zofran as this dosing is moderate emetic risk. * Addendum Note - Sydnee Ng MD - 05/01/2024 3:03 PM EST Addended by: SYDNEE NG on: 05/01/2024 03:03 PM Modules accepted: Orders * Telephone Encounter - Sydnee Ng MD - 05/01/2024 3:03 PM EST Alteration to TP placed for: Pembrolizumab D1 + Carboplatin AUC1.5 D1,8,15 + Paclitaxel 80 mg/m2 D1,8,15 q21 Days C1-4 followed by Pembrolizumab + AC q21 Days * Telephone Encounter - Sydnee Ng MD - 05/01/2024 2:35 PM EST Pembrolizumab D1 + Carboplatin AUC1.5 D1,8,15 + Paclitaxel 80 mg/m2 D1,8,15 q21 Days C1-4 followed by Pembrolizumab + AC q21 Days C5-8 [id number] This is what I'm seeing on the [place] plan I had ordered and then put it on hold for you to review. Not sure if you are seeing a different order? * Telephone Encounter - Yuli Gallagher RN - 05/01/2024 1:18 PM EST Received recurring plan message from Dr Gurrola: "Karthik Roldan I'm not signing the plan as currently written because it has Carbo AUC 5 on D1 of each cycle. I requested for the chemo plan with carbo AUC 1.5 with Taxol 80 mg/m2 D1,8 and 15. Please send it abck to me fo signature after correction. Thanks" Via pathways order states carboplatin AUC=5 day 1 q21 days. [place] plan generated by via pathways protocol has carboplatin AUC 5 day [address] Gurrola: if patient is to receive carboplatin AUC 1.5 days 1, 8, 15 every 21 days cycles 1-4 instead of AUC 5 day 1 every 21 days cycles 1-4, please place alteration order specifying this. documented in this encounter Plan of Treatment Upcoming Encounters Date Type Department Care Team (Latest Contact Info) Description 05/02/2024 11:25 AM EST Hospital Encounter OR [facility], Operating Room, [facility] - [address] [place] [address] [address] [place] [phone] Iam Curry MD [address] [place] [address] 05/02/2024 11:25 AM EST - 05/02/2024 12:20 PM EST Surgery OR [facility], Operating Room, [facility] Floor [address] [place] [address] Iam Curry MD [address] [place] [address] [place] [address] INSERT TUNNELED CENTRAL VENOUS ACCESS WITH SUBQ PORT 05/07/2024 8:00 AM EST Imaging Radiology [facility] [address] [place] [address] 05/07/2024 11:30 AM EST Pt Ed by Nurse Hematology/Oncolog y Rafael Amato [place] [address] [place] [address] [place], Nurse Hem Onc Scenery [address] [place] [address] 05/07/2024 12:30 PM EST Laboratory Laboratory Scenery [facility] [address] [place], [place] [address] [place], Lab Scenery [address] [place], [place] [address] 05/08/2024 8:45 AM EST Hem/Onc Treatment Hematology/Oncolog y Treatment, [place] [address] [place], [place] [address] [place], Chair 9 Hem Onc Scenery [address] [place], [place] [address] 05/12/2024 10:00 AM EST Office Visit Family [facility] [address] [place] [address] Malinda Owens CRNP [address] [place] [address] 08/06/2024 9:00 AM EST Telemedicine Genetics HemOnc, [facility] [address] [place] [address] Estephania Reyes, MS [address] [place] [address] Scheduled Procedures Name Priority Associated [...] this encounter Medical Devices Implanted Type Area Information Systems Director Device Identifier Shelf Expiration Date Model / Serial / Lot Therese Angulo 4fr 11cm - [id number] Implanted:Qty: 1 on 02/08/2024 by Jeffrey Kerr MD at OR [facility] [employer] [facility] [id number] 08/16/2028 [id number] / / [id number] documented as of this encounter Visit Diagnoses [...] in female, estrogen receptor negative (HCC)- Primary Malignant neoplasm of upper-outer quadrant of left breast in female, estrogen receptor negative (HCC) documented in this encounter Care Teams Legal Billing Analyst Relationship Specialty Start Date End Date Malinda Owens CRNP [address] [place] [address] PCP - General Nurse Practitioner 09/20/23 documented as of this encounter
--- OUTSIDE RECORDS SUMMARY | 2024-09-05 14:43 | External Medical Summary | Summary of Care ---
Author Name Unknown Organization [facility] Address [address] [facility] [place] [address] Phone [phone] Care Team Providers Care Wildlife Refuge Manager Name Role Phone Malinda Owens AD Primary Care Provider [phone] Reason for Referral * Precert (Within 24 hrs (call dept; emergent)) - Authorized Specialty Diagnoses / Procedures Referred By Contac t Referred To Contact Radiology Diagnoses Malignant neoplasm of upper-outer quadrant of left breast in female, estrogen receptor negative (HCC) Procedures PET CT SKULL BASE TO MID-THIGH FDG Em Ng MD [address] [place] [address] Phone: tel: fax: Referral ID Status Reason Start Date Expiration Date V isits Requested Visits Authorized [id number] Authorized Precert 05/01/2024 05/31/2024 [id number] Reason for Visit * Precert (Within 24 hrs (call dept; emergent)) - Authorized Specialty Diagnoses / Procedures Referred By Contac t Referred To Contact Radiology Diagnoses Malignant neoplasm of upper-outer quadrant of left breast in female, estrogen receptor negative (HCC) Procedures PET CT SKULL BASE TO MID-THIGH FDG Em Ng MD [address] [facility] [place] [address] Phone: tel: fax: Referral ID Status Reason Start Date Expiration Date V isits Requested Visits Authorized [id number] Authorized Precert 05/01/2024 05/31/2024 999 [id number] Encounter Details Date Type Department Care Team (Latest Contact Info) Description 05/01/2024 6:56 AM EST Hospital Encounter Radiology, [facility] [address] [place] [address] Arrived Discharge Disposition: Home - Self Care Allergies No known active allergiesdocumented as of this encounter (statuses as of 05/02/2024) Medications 19 29-1 MG Oral Tablet Chewable Take by mouth. Suspended Ibuprofen 600 MG Oral Tablet (Motrin) Take 1 Tablet by mouth every 6 hours as needed (pain). 05/02/20 24 Discontinued( Medication List Clean Up) documented as of [...] and class I obesity. Per review of SNOWBLOWER MECHANIC documentation of 09/25/23, blood glucose values have [...] Recommend nutrition consult with RDN (Registered Dietitian Financial Systems Analyst). Lifestyle changes are also indicated including [...] and folate levels and referral to a eap clinician. If hemoglobin levels are below 8 g/dl, we recommend Maternal Medicine ultrasound for growth every 4 weeks after 24 weeks. Consider a blood transfusion if hemoglobin levels fall below 6 g/dL. ([employer] Obstetricians and Independent Trader Practice Bulletin Number 95, December,). Consider Venofer [...] money to get more. 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 Not on file documented as of this encounter Plan of Treatment Upcoming Encounters Date Type Department Care Team (Late st Contact Info) Description 05/07/2024 8:00 AM EST Imaging Radiology [address], [address] [place] [address] 05/07/2024 11:30 AM EST Pt Ed by Nurse Hematology/Oncology [address] [place] [address] [place] [phone] [place] Nurse [place] [address] 05/07/2024 12:30 PM EST Laboratory Laboratory [address] [place] [address] [place] [address] [address] [facility] [place] [address] 05/08/2024 8:45 AM EST Hem/Onc Treatment Hematology/Oncology Treatment, [place] [address] [place] [address] [place], Chair 9 Hem Onc Scenery [address] [place] [address] 05/12/2024 10:00 AM EST Office Visit Family [facility] [address] [facility] [place] [address] Malinda Owens CRNP [address] [place] [address] 08/06/2024 9:00 AM EST Telemedicine Genetics HemOnc, C [address] [place] [address] Estephania Reyes, [place] [address] [place] [address] Scheduled Procedures Name Priority Associated [...] this encounter Medical Devices Implanted Type Area Slab Polisher Device Identifier Shelf Expiration Date Model / Serial / Lot Stent Kev erickson 11cm - [id number] Implanted:Qty: 1 on 02/08/2024 by Jeffrey Kerr MD [facility] [id number] 08/16/2028 [id number] / / [id number] documented as of this encounter Procedures Procedure [...] resident/fellow physician's interpretation. us Em Ng MD [facility] NUCLEAR MED Final Result documented in this encounter Visit Diagnoses Diagnosis [...] (HCC) documented in this encounter Administered Medications Inactive Administered Medications - up to 3 most recent administrations Medication Order MAR Action Action Date Dose Rate Site fludeoxyglucose f-18 (Fdg) inj 12.3 millicurie 12.3 millicurie, Intravenous, ONCE, On Bibi 05/01/24 at 0722, For 1 dose, Radiology Medication Routing (Non-IR) Given 05/01/2024 7:14 AM EST 12.3 millicuries Antecubital Right documented in this encounter Care Teams Wildlife Refuge Manager Relationship Specialty Start Date End Date Malinda Owens CRNP [address] [place] [address] PCP - General Nurse Practitioner 09/20/23 documented as of this encounter
--- OUTSIDE RECORDS SUMMARY | 2024-09-05 14:44 | External Medical Summary | Summary of Care ---
Author Name Unknown Organization [facility] Address [address] [facility] [place] [address] Phone [phone] Care Team Providers Care Esters And Emulsifiers Supervisor Name Role Phone Malinda Owens Primary Care Provider Encounter Details Date Type Department Care Team (Late st Contact Info) Description 05/01/2024 Orders Only Hematology/Oncology, [facility] [address] [place] [address] Em Ng MD [address] [place] [phone] Malignant neoplasm of upper-outer quadrant of left [...] and class I obesity. Per review of PHYSICAL THERAPY INSTRUCTOR documentation of 09/25/23, blood glucose values [...] Recommend nutrition consult with RDN (Registered Dietitian Land Resource Specialist). Lifestyle changes are also indicated including [...] and folate levels and referral to a bulldozer engineer. If hemoglobin levels are below 8 g/dl, we recommend Maternal Medicine ultrasound for growth every 4 weeks after 24 weeks. Consider a blood transfusion if hemoglobin levels fall below 6 g/dL. ([employer] Obstetricians and Marketing Segment Manager Practice Bulletin Number 95, December,). Consider [...] money to get more. Never true 03/26/2024 [place] Depression Scale Answer Date Recorded [place] Depression Scale Total 6 12/11/2023 The thought [...] Progress Notes * Em Ng MD - 05/01/2024 12:03 PM EST Alteration to treatment plan entered. Please change the authorizing provider for future standing lab orders from Dr. Luna to me so that I get the results sent to me directly. Thanks documented in this encounter Plan of Treatment Upcoming Encounters Date Type Department Care Team (Latest Contact Info) Description 05/02/2024 11:25 AM EST Hospital Encounter OR [facility], Operating Room, [facility] - 4th Floor [address] [place] [address] Iam Curry MD 400 [facility] [address] 05/02/2024 11:25 AM EST - 05/02/2024 12:20 PM EST Surgery OR [facility], Operating Room, [facility] Floor [address] [place] [address] Iam Curry MD [address] [place] [address] INSERT TUNNELED CENTRAL VENOUS ACCESS WITH SUBQ PORT 05/07/2024 8:00 AM EST Imaging Radiology [facility] 1st [facility], [place] 132 [facility] [place] [address] 05/07/2024 11:30 AM EST Pt Ed by Nurse Hematology/Oncolog y Scenery [place] [address] [place] [phone] [place], Nurse Hem Onc Scenery [address] [place] [address] 05/07/2024 12:30 PM EST Laboratory Laboratory Scenery [place] [address] [place] [phone] [place], Lab Scenery [address] [place] [address] 05/08/2024 8:45 AM EST Hem/Onc Treatment Hematology/Oncolog y Treatment, [place] [address] [place] [address] [place], Chair 9 Hem Onc Scenery [address] [place] [address] 05/12/2024 10:00 AM EST Office Visit Family Practice [facility] [address] [facility] [address] Malinda Owens CRNP [address] [place] [address] 08/06/2024 9:00 AM EST Telemedicine Genetics HemOnc, [facility] [address] [place] [address] Estephania Reyes, [place] [address] [place] [address] Scheduled Procedures Name Priority Associated [...] this encounter Medical Devices Implanted Type Area Skoog Operator Device Identifier Shelf Expiration Date Model / Serial / Lot Stent Kev 4fr 11cm - [id number] Implanted:Qty: 1 on 02/08/2024 by Jeffrey Kerr MD at OR [facility] [employer] [facility] [id number] 08/16/2028 [id number] / / [id number] documented as of this encounter Visit Diagnoses [...] (HCC) documented in this encounter Care Teams Esters And Emulsifiers Supervisor Relationship Specialty Start Date End Date Malinda Owens CRNP [address] [facility] [place] [address] PCP - General Nurse Practitioner 09/20/23 documented as of this encounter
--- OUTSIDE RECORDS SUMMARY | 2024-09-05 14:44 | External Medical Summary | Summary of Care ---
Author Name Unknown Organization [facility] Address [address] [place] [facility] [place] [address] Phone [phone] Care Team Providers Care Elevators Inspector Name Role Phone Malinda Owens Primary Care Provider Reason for Visit * Reason Onset Date Comments Precert Future 04/30/2024 Keytruda/ carbo/ taxol--> keytruda/ AC Encounter Details Date Type Department Care Team (Late st Contact Info) Description 04/30/2024 Telephone Hematology/Oncology Treatment, [place] [address] [place] [address] Mandeep Luna MD 200 [place] [address] Precert Future (Keytruda/ carbo/ taxol--> ... Allergies No known active allergiesdocumented as [...] complete. Enrolled in Current Health. Plans to diamond picker meter from pharmacy today. Instructions provided [...] and class I obesity. Per review of PHARMACIST HELPER documentation of 09/25/23, blood glucose values [...] nutrition consult with RDN (Registered Dietitian Yard Engineer). Lifestyle changes are also indicated including [...] and folate levels and referral to a farm or ranch animal caretaker. If hemoglobin levels are below 8 g/dl, we recommend Maternal Medicine ultrasound for growth every 4 weeks after 24 weeks. Consider a blood transfusion if hemoglobin levels fall below 6 g/dL. ([employer] Obstetricians and Professional Skateboarder Practice Bulletin Number 95, December,). Consider Venofer [...] to get more. 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 * Telephone Encounter - Yuli Gallagher RN - 05/01/2024 12:03 PM EST Alteration received. * Telephone Encounter - Lisa Casillas OSA - 05/01/2024 10:35 AM EST Apts are updated and pt is aware Pt is wondering if she is able to get the names of the meds that she will be given during tx so that she can come up with any questions she might have when she does her edu Please advise she said she is ok with a my g with this info * Telephone Encounter - Yuli Gallagher RN - 05/01/2024 9:46 AM EST Referral entered. Called patient- she wants to get education sooner than treatment start, but if treatment cannot start until after 05/08 would like to leave this as scheduled. Hep B labs drawn today. Scheduling: please call patient to schedule - labs "CBCd, CMP, urine"- labs can be day of or day prior to treatment - 3 hour appt "C1D1 keytruda, carbo, taxol" ([place]) Patient wants to do education prior to day of treatment- if treatment is scheduled after 05/08, patient would like to leave education 05/08. If it can be scheduled 05/08 with office visit, would liketo move education visit up. Thanks! Dr Gurrola: please place alteration order per previous note. Also printed this encounter for you as a reminder. Thanks! * Telephone Encounter - Yuli Gallagher RN - 04/30/2024 12:28 PM EST Order received for keytruda/ carbo/ taxol--> keytruda/ AC. Per hold note: "Please remove Neupogen on day 16, 17 and 18 from cycles 1-4.) Since 04/30/2024 1:51 AM " Waiting for auth. Consent signed 04/24/24. Echo 04/30/24. Port placement 05/02/24. PET 05/01/24. Dr Ng: please place "alteration of treatment plan" order to remove neupogen from plan. Thanks! documented in this encounter Plan of Treatment Upcoming Encounters Date Type Department Care Team (Latest Contact Info) Description 05/02/2024 11:25 AM EST Hospital Encounter OR [facility], Operating Room, [facility] Floor [address] [place] [address] Iam Curry MD [address] [place] [address] 05/02/2024 11:25 AM EST - 05/02/2024 12:20 PM EST Surgery OR [facility], Operating Room, [facility] Floor [address] [place] [address] Iam Curry MD [address] [place] [address] INSERT TUNNELED CENTRAL VENOUS ACCESS WITH SUBQ PORT 05/07/2024 8:00 AM EST Imaging Radiology [facility] 1st [facility] [address] [place] [address] 05/07/2024 11:30 AM EST Pt Ed by Nurse Hematology/Oncolog y Scenery [place] [address] [place] [address] [place], Nurse Hem Onc Scenery [address] [place], [place] [address] 05/07/2024 12:30 PM EST Laboratory Laboratory Scenery [place] [address] [place], [place] [phone] [place], Lab Scenery [address] [place], [place] [address] 05/08/2024 8:45 AM EST Hem/Onc Treatment Hematology/Oncolog y Treatment, [place] [address] [place], [place] [phone] [place], Chair 9 Hem Onc Scenery [address] [place], [place] [address] 05/12/2024 10:00 AM EST Office Visit Family [facility] [address] [place] [address] Malinda Owens CRNP [address] [place] [address] 08/06/2024 9:00 AM EST Telemedicine Genetics HemOnc, [facility] [address] [place] [address] Estephania Reyes, [place] [address] [place] [address] Pending Results Name Type Priority Associated Diagnoses Date /Time HEPATITIS B SURFACE ANTIBODY Lab STAT Malignant neoplasm of upper-outer quadrant of left breast in female, estrogen receptor negative (HCC) 05/01/2024 8:42 AM EST HEPATITIS B SURFACE ANTIGEN Lab STAT Malignant neoplasm of upper-outer quadrant of left breast in female, estrogen receptor negative (HCC) 05/01/2024 8:42 AM EST HEPATITIS B CORE ANTIBODIES IGG AND IGM Lab STAT Malignant neoplasm of upper-outer quadrant of left breast in female, estrogen receptor negative (HCC) 05/01/2024 8:42 AM EST Scheduled Orders Name Type Priority Associated Diagnoses Orde r Schedule HEPATITIS B SURFACE ANTIBODY Lab STAT Malignant neoplasm of upper-outer quadrant of left breast in female, estrogen receptor negative (HCC) Expected: 04/30/2024 (Approximate), Expires: 04/30/2025 HEPATITIS B SURFACE ANTIGEN Lab STAT Malignant neoplasm of upper-outer quadrant of left breast in female, estrogen receptor negative (HCC) Expected: 04/30/2024 (Approximate), Expires: 04/30/2025 HEPATITIS B CORE ANTIBODIES IGG AND IGM Lab STAT Malignant neoplasm of upper-outer quadrant of left breast in female, estrogen receptor negative (HCC) Expected: 04/30/2024 (Approximate), Expires: 04/30/2025 CBC WITH WBC DIFFERENTIAL Lab STAT Malignant neoplasm of upper-outer quadrant of left breast in female, estrogen receptor negative (HCC) Every Week for 52 Occurrences starting 04/30/2024 until 04/30/2025, 1 completed COMPREHENSIVE METABOLIC PANEL Lab STAT Malignant neoplasm of upper-outer quadrant of left breast in female, estrogen receptor negative (HCC) Every Week for 52 Occurrences starting 04/30/2024 until 04/30/2025 HCG QUALITATIVE, URINE Lab STAT Malignant neoplasm of upper-outer quadrant of left breast in female, estrogen receptor negative (HCC) Every Week for 52 Occurrences starting 04/30/2024 until 04/30/2025 TSH WITH FREE T4 IF INDICATED Lab STAT Malignant neoplasm of upper-outer quadrant of left breast in female, estrogen receptor negative (HCC) Every 3 Weeks for 17 Occurrences starting 04/30/2024 until 04/30/2025, 1 completed Scheduled Procedures Name Priority Associated Diagnoses Date/Ti [...] this encounter Medical Devices Implanted Type Area Solar/Renewable Energy Sales Device Identifier Shelf Expiration Date Model / Serial / Lot Stent Kev 4fr 11cm - [id number] Implanted:Qty: 1 on 02/08/2024 by Jeffrey Kerr MD at OR [facility] [employer] [id number] 08/16/2028 [id number] / / [id number] documented as of this encounter Results * TSH WITH FREE T4 IF INDICATED (05/01/2024 8:42 AM EST) TSH 3.34 0.27 - 4.20 uIU/mL 05/01/2024 9:30 AM EST LABORATORY [facility] Blood Venous blood specimen / Unknown Venipuncture / Unknown 05/01/2024 8:42 AM EST 05/01/2024 8:43 AM EST Mandeep Luna MD LAB BLOOD ORDERABLES Fin al Result LABORATORY [address] [address] documented in this encounter Visit Diagnoses Diagnosis [...] (HCC) documented in this encounter Care Teams Elevators Inspector Relationship Specialty Start Date End Date Malinda Owens CRNP [address] [place] [address] PCP - General Nurse Practitioner 09/20/23 documented as of this encounter
--- OUTSIDE RECORDS SUMMARY | 2024-09-05 14:44 | External Medical Summary | Summary of Care ---
Author Name Unknown Organization [facility] Address [address] [facility] [place] [address] Phone [phone] Care Team Providers Care Hypoid Gear Tester Name Role Phone Malinda Owens Primary Care Provider [phone] Reason for Visit * Reason Onset Date Comments Precert Future 04/30/2024 Keytruda/ carbo/ taxol--> keytruda/ AC Encounter Details Date Type Department Care Team (Late st Contact Info) Description 04/30/2024 Telephone Hematology/Oncology Treatment, [place] [address] [place] [address] Mandeep Luna MD 200 [place] [address] Precert Future (Keytruda/ carbo/ taxol--> ... Allergies [...] and class I obesity. Per review of FUR REMODELER documentation of 09/25/23, blood glucose values have [...] Recommend nutrition consult with RDN (Registered Dietitian Wallboard Worker). Lifestyle changes are also indicated including [...] folate levels and referral to a data center solutions architect. If hemoglobin levels are below 8 g/dl, we recommend Maternal Medicine ultrasound for growth every 4 weeks after 24 weeks. Consider a blood transfusion if hemoglobin levels fall below 6 g/dL. ([employer] Obstetricians and Acid Tester Practice Bulletin Number 95, December,). Consider [...] money to get more. 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 If it can be scheduled 05/08 with office visit, would liketo move education visit up. Thanks! Dr Gurrola: please place alteration order per previous note. Thanks! * Telephone Encounter - Yuli Gallagher [...] 05/02/2024 11:25 AM EST Hospital Encounter [place] [facility], Operating Room, [facility] - 4th Floor [address] [place] [phone] Iam Curry MD [address] [place] [id number] 05/02/2024 11:25 AM EST - 05/02/2024 12:20 PM EST Surgery OR [facility], Operating Room, [facility] - 4th Floor [address] [place] [phone] Iam Curry MD [address] [place] [address] INSERT TUNNELED CENTRAL VENOUS ACCESS WITH SUBQ PORT 05/07/2024 8:00 AM EST Imaging Radiology [facility] 1st [facility] [address] [facility] [address] 05/08/2024 9:00 AM EST Office Visit Hematology/Oncolog y Scenery [facility] [address] [place] [phone] Em Ng MD [address] [place] [address] 05/08/2024 9:30 AM EST Pt Ed by Nurse Hematology/Oncolog y [facility] [place] [address] [place] [address] [place], Nurse Hem Onc Scenery [address] [place] [address] 05/12/2024 10:00 AM EST Office Visit Family Practice [facility] 132 [facility] [place] [address] Malinda Owens CRNP [facility] [place] [address] 08/06/2024 9:00 AM EST Telemedicine Genetics HemOnc, [facility] [address] [place] [address] Estephania Reyes, [place] [address] [place] [address] Pending Results Name Type Priority [...] this encounter Medical Devices Implanted Type Area Settlement Processor Device Identifier Shelf Expiration Date Model / Serial / Lot Therese Angulo 4fr 11cm - [id number] Implanted:Qty: 1 on 02/08/2024 by Jeffrey Kerr MD at OR [facility] [employer] [facility] [id number] 08/16/2028 [id number] / / [id number] documented as of this encounter Results * TSH WITH FREE T4 IF INDICATED (05/01/2024 8:42 AM EST) TSH 3.34 0.27 - 4.20 uIU/mL 05/01/2024 9:30 AM EST LABORATORY [facility] Blood Venous blood specimen / Unknown Venipuncture / Unknown 05/01/2024 8:42 AM EST 05/01/2024 8:43 AM EST Mandeep Luna MD LAB BLOOD ORDERABLES Fin al Result [address] [place] [id number] documented in this encounter Visit Diagnoses Diagnosis [...] (HCC) documented in this encounter Care Teams Hypoid Gear Tester Relationship Specialty Start Date End Date Malinda Owens CRNP [address] [place] [address] PCP - General Nurse Practitioner 09/20/23 documented as of this encounter
--- OUTSIDE RECORDS SUMMARY | 2024-09-05 14:44 | External Medical Summary | Summary of Care ---
Author Name Unknown Organization [facility] Address [address] [facility] [place] [address] Phone [phone] Care Team Providers Care Occupational Health Manager Name Role Phone Owens Ridgemargaret AD Primary Care Provider [phone] Encounter Details Date Type Department Care Team (Late st Contact Info) Description 05/01/2024 Orders Only Hematology/Oncology [facility] [place] [address] [place] [address] Em Ng MD 400 [facility] [place] [address] Allergies No known active allergiesdocumented as [...] Enrolled in Current Health. Plans to pickling tank operator meter from pharmacy today. Instructions provided [...] and class I obesity. Per review of JOINT CLEANING MACHINE OPERATOR documentation of 09/25/23, blood glucose [...] Recommend nutrition consult with RDN (Registered Dietitian Health Companion). Lifestyle changes are also indicated including optimizing [...] and folate levels and referral to a inventory administrator. If hemoglobin levels are below 8 g/dl, we recommend Maternal Medicine ultrasound for growth every 4 weeks after 24 weeks. Consider a blood transfusion if hemoglobin levels fall below 6 g/dL. ([employer] Professional Practice Bulletin Number 95, December,). Consider [...] money to get more. Never true 03/26/2024 [place] Depression Scale Answer Date Recorded [place] Depression Scale Total 6 12/11/2023 The [...] 05/02/2024 11:25 AM EST Hospital Encounter [facility] - 4th Floor [address] [place] [address], [place] [address] Iam Curry MD [address] [place] [address] 05/02/2024 11:25 AM EST - 05/02/2024 12:20 PM EST Surgery OR [facility], Operating Room, [facility] - 4th Floor [address] [place] [address] Iam Curry MD [address] [place] [address] INSERT TUNNELED CENTRAL VENOUS ACCESS WITH SUBQ PORT 05/07/2024 8:00 AM EST Imaging Radiology [facility] 1st [facility] [address] [place] [address] 05/07/2024 11:30 AM EST Pt Ed by Nurse Hematology/Oncolog y Scenery [place] [address] [place] [phone] [place] Nurse Hem Onc Scenery [address] [place] [address] 05/07/2024 12:30 PM EST Laboratory Laboratory Scenery [place] [address] [place] [phone] [place], Lab Scenery [address] [place] [address] 05/08/2024 8:45 AM EST Hem/Onc Treatment Hematology/Oncolog y Treatment, [place] [address] [place] [phone] [place], Chair 9 Hem Onc Scenery [address] [place] [address] 05/12/2024 10:00 AM EST Office Visit Family Practice [facility] [address] [place] [address] Malinda Owens CRNP [address] [place] [address] 08/06/2024 9:00 AM EST Telemedicine Genetics HemOnc, [facility] [address] [place] [address] Reyes Estephania Harrell, MS [address] [place], [place] [id number] Scheduled Procedures Name Priority Associated Diagnoses Date/Ti [...] this encounter Medical Devices Implanted Type Area Maintenance Of Way Superintendent Device Identifier Shelf Expiration Date Model / Serial / Lot Therese Angulo 4fr 11cm - [id number] Implanted:Qty: 1 on 02/08/2024 by Jeffrey Kerr [facility] [id number] 08/16/2028 [id number] / / [id number] documented as of this encounter Care Teams Occupational Health Manager Relationship Specialty Start Date End Date Malinda Owens CRNP 132 [place] [address] PCP - General Nurse Practitioner 09/20/23 documented as of this encounter
--- OUTSIDE RECORDS SUMMARY | 2024-09-05 14:44 | External Medical Summary | Summary of Care ---
Author Name Unknown Organization [facility] Address [address] [facility] [address] Phone [phone] Care Team Providers Care Precision Lathe Operator Name Role Phone Ridge Owensmargaret AD Primary Care Provider [phone] Reason for Visit * Reason Onset Date Comments Information 05/01/2024 Encounter Details Date Type Department Care Team (Late st Contact Info) Description 05/01/2024 Telephone Hematology/Oncology Treatment, [place] [address] [place] [address] Sydnee Ng MD 400 [place] [address] Information Allergies No known active [...] and class I obesity. Per review of SHOP TECHNICIAN documentation of 09/25/23, blood glucose values [...] Recommend nutrition consult with RDN (Registered Dietitian Beam Machine Operator). Lifestyle changes are also indicated [...] and folate levels and referral to a telecom engineer. If hemoglobin levels are below 8 g/dl, we recommend Maternal Medicine ultrasound for growth every 4 weeks after 24 weeks. Consider a blood transfusion if hemoglobin levels fall below 6 g/dL. ([employer] Obstetricians and Floor Technician Practice Bulletin Number 95, December,). Consider [...] money to get more. 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 Thanks" Via [employer] order states carboplatin AUC=5 day 1 q21 days. [place] plan generated by via [employer] protocol has carboplatin AUC 5 day 1 [...] 05/02/2024 11:25 AM EST Hospital Encounter OR [facility], Operating Room, [facility] - 4th Floor [address] [place] [address] Iam Curry MD 400 [facility] [place] [address] 05/02/2024 11:25 AM EST - 05/02/2024 12:20 PM EST Surgery OR [facility], Operating Room, [facility] Floor [address] [place] [address] Iam Curry MD [address] [place] [address] INSERT TUNNELED CENTRAL VENOUS ACCESS WITH SUBQ PORT 05/07/2024 8:00 AM EST Imaging Radiology [facility] 1st [facility] [address] 05/07/2024 11:30 AM EST Pt Ed by Nurse Hematology/Oncolog y Scenery [place] [address] [place] [phone] [place] Nurse Hem Onc Scenery [address] [place] [address] 05/07/2024 12:30 PM EST Laboratory [facility] [place] [address] [place] [phone] [place] Lab Scenery [address] [facility] [place] [address] 05/08/2024 8:45 AM EST Hem/Onc Treatment Hematology/Oncolog y Treatment, [place] [address] [place] [address] [place], Chair 9 Hem Onc Scenery [address] [place] [address] 05/12/2024 10:00 AM EST Office Visit Family [facility] [address] [place] [address] Malinda Owens CRNP [address] [place] [address] 08/06/2024 9:00 AM EST Telemedicine Genetics HemOnc, [facility] [address] [place] [address] Estephania Reyes, MS [address] [place] [address] Scheduled Procedures Name Priority Associated [...] this encounter Medical Devices Implanted Type Area Retort Cooler Device Identifier Shelf Expiration Date Model / Serial / Lot Stent Kev 4fr 11cm - [id number] Implanted:Qty: 1 on 02/08/2024 by Jeffrey Kerr MD at OR [facility] [employer] [facility] [id number] 08/16/2028 [id number] / / [id number] documented as of this encounter Visit Diagnoses [...] (HCC) documented in this encounter Care Teams Precision Lathe Operator Relationship Specialty Start Date End Date Malinda Owens CRNP 132 [facility] [place] [address] PCP - General Nurse Practitioner 09/20/23 documented as of this encounter
--- OUTSIDE RECORDS SUMMARY | 2024-09-05 14:44 | External Medical Summary | Summary of Care ---
Author Name Unknown Organization [facility] Address [address] [place] [facility] [place] [place] [address] Phone [phone] Care Team Providers Care Bunch Trimmer Mold Name Role Phone Ridge Owensmargaret AD Primary Care Provider [phone] Reason for Visit * Reason Onset Date Comments Information 05/01/2024 Encounter Details Date Type Department Care Team (Late st Contact Info) Description 05/01/2024 Telephone Hematology/Oncology Treatment, [place] [address] [place] [address] Em Ng MD 400 [place] [address] Information Allergies No known active [...] complete. Enrolled in Current Health. Plans to brain picker meter from pharmacy today. Instructions provided [...] and class I obesity. Per review of TRUST VAULT CLERK documentation of 09/25/23, blood glucose values [...] Recommend nutrition consult with RDN (Registered Dietitian Software Test Engineer). Lifestyle changes are also indicated including [...] and folate levels and referral to a peripheral edp equipment operator. If hemoglobin levels are below 8 g/dl, we recommend Maternal Medicine ultrasound for growth every 4 weeks after 24 weeks. Consider a blood transfusion if hemoglobin levels fall below 6 g/dL. ([employer] Obstetricians and Workers' Compensation Commissioner Practice Bulletin Number 95, December,). Consider Venofer [...] money to get more. 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 [place] plan generated by via pathways protocol has [...] EST Hospital Encounter OR [facility], Operating Room, [facility] - 4th Floor [address] [place] [address] Iam Curry MD [address] [place] [address] 05/02/2024 11:25 AM EST - 05/02/2024 12:20 PM EST Surgery OR [facility], Operating Room, [facility] - 4th Floor [address] [place] [address] Iam Curry MD [address] [place] [address] INSERT TUNNELED CENTRAL VENOUS ACCESS WITH SUBQ PORT 05/07/2024 8:00 AM EST Imaging Radiology [facility] 1st [facility], [place] 132 [facility] [place] [address] 05/07/2024 11:30 AM EST Pt Ed by Nurse Hematology/Oncolog y Scenery [place] [address] [place] [phone] [place] Nurse Hem Onc Scenery [address] [place] [address] 05/07/2024 12:30 PM EST Laboratory Laboratory Scenery [place] [address] [place] [phone] [place], Lab Scenery [address] [facility] [place] [address] 05/08/2024 8:45 AM EST Hem/Onc Treatment Hematology/Oncolog y Treatment, [place] [address] [place] [phone] [place], Chair 9 Hem Onc Scenery [address] [place] [address] 05/12/2024 10:00 AM EST Office Visit Family Practice [facility] 132 [facility] [place] [address] Malinda Owens CRNP 132 [facility] [place] [address] 08/06/2024 9:00 AM EST Telemedicine Genetics HemOnc, [facility] [address] [place] [address] Estephania Reyes, MS [address] [place] [address] Scheduled Procedures Name Priority Associated Diagnoses Date/Ti [...] encounter Medical Devices Implanted Type Area Senior Officer Device Identifier Shelf Expiration Date Model / Serial / Lot Stent Angulo 4fr 11cm - [id number] Implanted:Qty: 1 on 02/08/2024 by Jeffrey Kerr MD at OR [facility] [id number] 08/16/2028 6546 / / [id number] documented as of this encounter Care Teams Bunch Trimmer Mold Relationship Specialty Start Date End Date Malinda Owens CRNP [address] [place] [address] PCP - General Nurse Practitioner 09/20/23 documented as of this encounter
--- OUTSIDE RECORDS SUMMARY | 2024-09-05 14:44 | External Medical Summary | Summary of Care ---
Author Name Unknown Organization [facility] Address [address] [place] [address] Phone [phone] Care Team Providers Care Threader Name Role Phone Malinda Owens AD Primary Care Provider [phone] Reason for Referral * Precert (Diagnostic Medical) (Within 10 days (routine)) - Authorized Specialty Diagnoses / Procedures Referred By Contac t Referred To Contact Cardiac Studies Diagnoses Malignant neoplasm of upper-outer quadrant of left breast in female, estrogen receptor negative (HCC) Procedures ECHO, COMPLETE (2D), TRANS-THORACIC Em Ng MD 400 [place] [address] Phone: tel: fax: Referral ID Status Reason Start Date Expiration Date V isits Requested Visits Authorized [id number] Authorized Precert 04/24/2024 05/24/2024 999 999 Reason for Visit * Precert (Diagnostic Medical) (Within 10 days (routine)) - Authorized Specialty Diagnoses / Procedures Referred By Contac t Referred To Contact Cardiac Studies Diagnoses Malignant neoplasm of upper-outer quadrant of left breast in female, estrogen receptor negative (HCC) Procedures ECHO, COMPLETE (2D), TRANS-THORACIC Em Ng MD [address] [place] [address] Phone: tel: fax: Referral ID Status Reason Start Date Expiration Date V isits Requested Visits Authorized [id number] Authorized Precert 04/24/2024 05/24/[phone] Encounter Details Date Type Department Care Team (Latest Contact Info) Description 04/30/2024 7:45 AM EST - 04/30/2024 11:59 PM EST Hospital Encounter Cardiac Studies, [facility] 400 [facility] [place] [id number] Discharge Disposition: Home - Self Care Allergies [...] and class I obesity. Per review of FARM DEMONSTRATOR documentation of 09/25/23, blood glucose values have [...] Recommend nutrition consult with RDN (Registered Dietitian Skein Spooler). Lifestyle changes are also indicated including optimizing [...] folate levels and referral to a television production assistant. If hemoglobin levels are below 8 g/dl, we recommend Maternal Medicine ultrasound for growth every 4 weeks after 24 weeks. Consider a blood transfusion if hemoglobin levels fall below 6 g/dL. ([employer] [place] Obstetricians and Stress Analyst Practice Bulletin Number 95, December,). Consider [...] money to get more. Never true 03/26/2024 [place] Depression Scale Answer Date Recorded [place] Depression Scale Total 6 12/11/2023 The thought [...] EST Hospital Encounter OR [facility], Operating Room, [facility] - 4th Floor [address] [place] [address] Iam Curry MD [address] [place] [address] 05/02/2024 11:25 AM EST - 05/02/2024 12:20 PM EST Surgery OR [facility], Operating Room, [facility] - 4th Floor [address] [place] [address] Iam Curry MD [address] [place] [address] INSERT TUNNELED CENTRAL VENOUS ACCESS WITH SUBQ PORT 05/07/2024 8:00 AM EST Imaging Radiology [facility] [address] [facility] 132 [facility] [place] [address] 05/07/2024 11:30 AM EST Pt Ed by Nurse Hematology/Oncolog y Scenery [place] [address] [place] [phone] [place], Nurse Hem Onc Scenery [address] [place] [address] 05/07/2024 12:30 PM EST Laboratory Laboratory Scenery [place] [address] [place] [phone] [place], Lab Scenery [address] [facility] [place] [address] 05/08/2024 8:45 AM EST Hem/Onc Treatment Hematology/Oncolog y Treatment, [place] [address] [place] [phone] [place], Chair 9 Hem Onc Scenery [address] [place] [address] 05/12/2024 10:00 AM EST Office Visit Family Practice [facility] 132 [facility] [address] Malinda Owens CRNP 132 [place] [address] 08/06/2024 9:00 AM EST Telemedicine Genetics HemOnc, [facility] [address] [place] [address] Estephania Reyes, MS [address] [place] [address] Scheduled Procedures Name Priority Associated [...] this encounter Medical Devices Implanted Type Area Histologist Technologist Device Identifier Shelf Expiration Date Model / Serial / Lot Stent Angulo 4fr 11cm - [id number] Implanted:Qty: 1 on 02/08/2024 by Jeffrey Kerr MD at OR [facility] [employer] [facility] [id number] 08/16/2028 [id number] / / [id number] documented as of this encounter Procedures Procedure Name Priority Date/Time Associated Diagnosis Comments ECHO, COMPLETE (2D), TRANS-THORACIC Routine 04/30/2024 8:52 AM EST Malignant neoplasm of upper-outer quadrant of left breast in female, estrogen receptor negative (HCC) documented in this encounter Results * ECHO, COMPLETE (2D), TRANS-THORACIC (04/30/2024 8:52 AM EST) LEFT VENTRICULAR EJECTION FRACTION 55 % [facility] CARDIOLOGY 04/30/2024 7:56 AM EST us Em Ng MD ECHOCARDIOLO GY Final [facility] documented in this encounter Visit Diagnoses [...] (HCC) documented in this encounter Care Teams Threader Relationship Specialty Start Date End Date Malinda Owens CRNP [address] [place] [address] PCP - General Nurse Practitioner 09/20/23 documented as of this encounter
--- OUTSIDE RECORDS SUMMARY | 2024-09-05 14:44 | External Medical Summary | Summary of Care ---
Author Name Unknown Organization [facility] Address [address] [place] [address] Phone [phone] Care Team Providers Care Car Painter Name Role Phone Malinda Owens Primary Care Provider [phone] Encounter Details Date Type Department Care Team (Late st Contact Info) Description 05/01/2024 Orders Only Hematology/Oncology, [facility] 400 [place] [address] Em Ng MD 400 [place] [phone] Karthik Roldan Allergies No known active allergiesdocumented as of [...] complete. Enrolled in Current Health. Plans to lemon picker meter from pharmacy today. Instructions provided [...] and class I obesity. Per review of COFFIN MAKER documentation of 09/25/23, blood glucose values [...] Recommend nutrition consult with RDN (Registered Dietitian Etl Programmer). Lifestyle changes are also indicated including optimizing [...] and folate levels and referral to a travel service consultant. If hemoglobin levels are below 8 g/dl, we recommend Maternal Medicine ultrasound for growth every 4 weeks after 24 weeks. Consider a blood transfusion if hemoglobin levels fall below 6 g/dL. ([employer] Obstetricians and Prick Stitcher Practice Bulletin Number 95, December,). Consider Venofer [...] money to get more. 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 I requested for the chemo plan with carbo AUC 1.5 with Taxol 80 mg/m2 D1,8 and 15. Please send it abck to me fo signature after correction. Thanks documented in this encounter Plan of Treatment Upcoming Encounters Date Type Department Care Team (Latest Contact Info) Description 05/02/2024 11:25 AM EST Hospital Encounter OR [facility], Operating Room, [facility] - 4th Floor [address] [place] [address] Iam Curry MD [address] [place] [address] 05/02/2024 11:25 AM EST - 05/02/2024 12:20 PM EST Surgery OR [facility], Operating Room, [facility] - 4th Floor [address] [place] [address] Iam Curry MD [address] [place] [address] INSERT TUNNELED CENTRAL VENOUS ACCESS WITH SUBQ PORT 05/07/2024 8:00 AM EST Imaging Radiology [facility] 1st [facility], [place] 132 [facility] [place] [address] 05/07/2024 11:30 AM EST Pt Ed by Nurse Hematology/Oncolog y Scenery [place] [address] [place] [address] [place], Nurse Hem Onc Scenery [address] [place] [address] 05/07/2024 12:30 PM EST Laboratory Laboratory Scenery [place] [address] [place] [address] [place], Lab Scenery [address] [facility] [place] [address] 05/08/2024 8:45 AM EST Hem/Onc Treatment Hematology/Oncolog y Treatment, [place] [address] [place], [place] [phone] [place], Chair 9 Hem Onc Scenery [address] [place], [place] [address] 05/12/2024 10:00 AM EST Office Visit Family [facility] [address] [place] [address] Malinda Owens CRNP [address] [place] [address] 08/06/2024 9:00 AM EST Telemedicine Genetics HemOnc, [facility] [address] [place] [address] Estephania Reyes, MS [address] [place] [address] Scheduled Procedures Name Priority Associated [...] this encounter Medical Devices Implanted Type Area Mixer Attendant Device Identifier Shelf Expiration Date Model / Serial / Lot Stent Kev 4fr 11cm - [id number] Implanted:Qty: 1 on 02/08/2024 by Jeffrey Kerr MD at OR [facility] [employer] [facility] [id number] 08/16/2028 [id number] / / [id number] documented as of this encounter Care Teams Car Painter Relationship Specialty Start Date End Date Malinda Owens CRNP 132 [facility] [place] [address] PCP - General Nurse Practitioner 09/20/23 documented as of this encounter
--- OUTSIDE RECORDS SUMMARY | 2024-09-05 14:44 | External Medical Summary | Summary of Care ---
Author Name Unknown Organization [facility] Address [address] [facility] [place] [address] Phone [phone] Care Team Providers Care Chainstitch Tunnel Elastic Operator Name Role Phone Malinda Owens Primary Care Provider [phone] Reason for Visit * Reason Onset Date Comments Precert Future 04/30/2024 Keytruda/ carbo/ taxol--> keytruda/ AC Encounter Details Date Type Department Care Team (Late st Contact Info) Description 04/30/2024 Telephone Hematology/Oncology Treatment, [place] [address] [place] [address] Mandeep Luna MD 200 [place] [address] Precert Future (Keytruda/ carbo/ taxol--> ... Allergies [...] and class I obesity. Per review of CHAIR INSPECTOR documentation of 09/25/23, blood glucose values [...] Recommend nutrition consult with RDN (Registered Dietitian Grading Clerk). Lifestyle changes are also indicated including [...] and folate levels and referral to a reference assistant. If hemoglobin levels are below 8 g/dl, we recommend Maternal Medicine ultrasound for growth every 4 weeks after 24 weeks. Consider a blood transfusion if hemoglobin levels fall below 6 g/dL. ([employer]st[employer] and Double Needle Stitcher Practice Bulletin Number 95, December,). Consider [...] money to get more. 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 on [...] with this info * Telephone Encounter - Ylui Gallagher RN - 05/01/2024 9:46 AM EST [...] Encounter OR [facility], Operating Room, [facility] - 4th Floor [address] [place] [address] Iam Curry MD [address] [place] [address] 05/02/2024 11:25 AM EST - 05/02/2024 12:20 PM EST Surgery OR [facility], Operating Room, [facility] - 4th Floor [address] [place] [address] Iam Curry MD [address] [place] [address] INSERT TUNNELED CENTRAL VENOUS ACCESS WITH SUBQ PORT 05/07/2024 8:00 AM EST Imaging Radiology [facility] 1st [facility] [address] [facility] [place] [address] 05/07/2024 11:30 AM EST Pt Ed by Nurse Hematology/Oncolog y [place] Sharita Quispe [address] [place] [address] [place] Nurse Hem Onc Scenery [address] [place] [address] 05/07/2024 12:30 PM EST Laboratory Laboratory State Sharita Quispe [address] [place] [phone] Khris Amato Scenery [address] [place] [address] 05/08/2024 8:45 AM EST Hem/Onc Treatment Hematology/Oncolog y Treatment, [place] [address] [place] [phone] [place], Chair 9 Hem Onc Scenery [address] [place] [address] 05/12/2024 10:00 AM EST Office Visit Family [facility] [address] [facility] [place] [address] Malinda Owens CRNP [address] [place] [address] 08/06/2024 9:00 AM EST Telemedicine Genetics HemOnc, [facility] [address] [place] [address] Estephania Reyes, [place] [address] [place] [address] Pending Results Name Type Priority Associated Diagnoses [...] this encounter Medical Devices Implanted Type Area Painter Plate Device Identifier Shelf Expiration Date Model / Serial / Lot Stent Kev 4fr 11cm - [id number] Implanted:Qty: 1 on 02/08/2024 by Jeffrey Kerr MD at OR [facility] [id number] 08/16/2028 [id number] / / [id number] documented as of this encounter Results * TSH WITH FREE T4 IF INDICATED (05/01/2024 8:42 AM EST) TSH 3.34 0.27 - 4.20 uIU/mL 05/01/2024 9:30 AM EST LABORATORY [facility] Blood Venous blood specimen / Unknown Venipuncture / Unknown 05/01/2024 8:42 AM EST 05/01/2024 8:43 AM EST Mandeep Luna MD LAB BLOOD ORDERABLES Fin al Result LABORATORY [address] [address] documented in this encounter Visit [...] (HCC) documented in this encounter Care Teams Chainstitch Tunnel Elastic Operator Relationship Specialty Start Date End Date Malinda Owens CRNP [address] [facility] [place] [address] PCP - General Nurse Practitioner 09/20/23 documented as of this encounter
--- OUTSIDE RECORDS SUMMARY | 2024-09-05 14:44 | External Medical Summary | Summary of Care ---
Author Name Unknown Organization [facility] Address [address] [facility] [place] [address] Phone [phone] Care Team Providers Care Canvas Products Sales Representative Name Role Phone Ridge Owensmargaret AD Primary Care Provider [phone] Reason for Visit * Reason Onset Date Comments Information 05/01/2024 Encounter Details Date Type Department Care Team (Late st Contact Info) Description 05/01/2024 Telephone Hematology/Oncology Treatment, [place] [address] [place] [address] Em Ng MD 400 [place] [address] Information Allergies No known active [...] and class I obesity. Per review of OINTMENT MILL TENDER documentation of 09/25/23, blood glucose values [...] Recommend nutrition consult with RDN (Registered Dietitian Ict Help Desk Officer). Lifestyle changes are also indicated including [...] and folate levels and referral to a train gate attendant. If hemoglobin levels are below 8 g/dl, we recommend Maternal Medicine ultrasound for growth every 4 weeks after 24 weeks. Consider a blood transfusion if hemoglobin levels fall below 6 g/dL. ([employer]ians and Environmental Quality Analyst Practice Bulletin Number 95, December,). Consider [...] money to get more. 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 I requested for the chemo plan with carbo AUC 1.5 with Taxol 80 mg/m2 D1,8 and 15. Please send it abck to me fo signature after correction. Thanks" Via pathways order states carboplatin AUC=5 day 1 q21 days. [place] plan generated by via pathways protocol has [...] 05/02/2024 11:25 AM EST Hospital Encounter OR [facility], Operating Room, [facility] [address] [place] [address] [address] [address] Iam Curry MD [address] [place] [address] 05/02/2024 11:25 AM EST - 05/02/2024 12:20 PM EST Surgery OR [facility], Operating Room, [facility] - [address] [place] [address] [address] [place] [address] Iam Curry MD [address] [place] [address] INSERT TUNNELED CENTRAL VENOUS ACCESS WITH SUBQ PORT 05/07/2024 8:00 AM EST Imaging Radiology [facility] 1st [facility] [address] [place] [address] 05/07/2024 11:30 AM EST Pt Ed by Nurse Hematology/Oncolog y Rafael Amato [place] [address] [place] [phone] [place], Nurse Hem Onc Scenery [address] [place] [address] 05/07/2024 12:30 PM EST Laboratory Laboratory Scenery [place] [address] [place] [phone] [place], Lab Scenery [address] [place], [place] [address] 05/08/2024 8:45 AM EST Hem/Onc Treatment Hematology/Oncolog y Treatment, [place] [address] [place], [place] [phone] [place], Chair 9 Hem Onc Scenery [address] [place], [place] [address] 05/12/2024 10:00 AM EST Office Visit Family [facility] [address] [place] [address] Malinda Owens CRNP [address] [place] [address] 08/06/2024 9:00 AM EST Telemedicine Genetics HemOnc, [facility] [address] [place] [address] Estephania Reyes, [place] [address] [place] [address] Scheduled Procedures Name Priority Associated [...] this encounter Medical Devices Implanted Type Area Service Counter Cashier Device Identifier Shelf Expiration Date Model / Serial / Lot Stent Kev 4fr 11cm - [id number] Implanted:Qty: 1 on 02/08/2024 by Jeffrey Kerr MD at OR [facility] Share Practice [facility] [id number] 08/16/2028 [id number] / / [id number] documented as of this encounter Care Teams Canvas Products Sales Representative Relationship Specialty Start Date End Date Malinda Owens CRNP [address] [place] [address] PCP - General Nurse Practitioner 09/20/23 documented as of this encounter
--- OUTSIDE RECORDS SUMMARY | 2024-09-05 14:44 | External Medical Summary | Summary of Care ---
Author Name Unknown Organization [facility] Address [address] [place] [facility] [place] [place] [address] Phone [phone] Care Team Providers Care Master Cook Name Role Phone Malinda Owens Primary Care Provider [phone] Reason for Visit * Reason Onset Date Comments Precert Future 04/30/2024 Keytruda/ carbo/ taxol--> keytruda/ AC Encounter Details Date Type Department Care Team (Late st Contact Info) Description 04/30/2024 Telephone Hematology/Oncology Treatment, [place] [address] [place] [address] Mandeep Luna MD 200 [place] [address] Precert Future (Keytruda/ carbo/ taxol--> ... Allergies [...] and class I obesity. Per review of ELECTROPHYSIOLOGY TECHNICIAN documentation of 09/25/23, blood glucose values [...] Recommend nutrition consult with RDN (Registered Dietitian Didactic Program In Dietetics Director). Lifestyle changes are also indicated including [...] and folate levels and referral to a strategic marketing manager. If hemoglobin levels are below 8 g/dl, we recommend Maternal Medicine ultrasound for growth every 4 weeks after 24 weeks. Consider a blood transfusion if hemoglobin levels fall below 6 g/dL. ([employer] and Regional Branch Manager Practice Bulletin Number 95, December,). Consider [...] money to get more. 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, Operating Room, [facility] - 4th Floor [address] [place] [address] [place] [address] Iam Curry MD [address] [place] [address] 05/02/2024 11:25 AM EST - 05/02/2024 12:20 PM EST Surgery OR [facility], Operating Room, [facility] - 4th Floor [address] [place] [address] Iam Curry MD [address] [place] [address] INSERT TUNNELED CENTRAL VENOUS ACCESS WITH SUBQ PORT 05/07/2024 8:00 AM EST Imaging Radiology [facility] 1st [facility] [address] [facility] [place] [address] 05/08/2024 9:00 AM EST Office Visit Hematology/Oncolog y Scenery [facility] [address] [place] [address] Em Ng MD [address] [place] [phone] 05/08/2024 9:30 AM EST Pt Ed by Nurse [facility] [place] [address] [place] [phone] [place] Nurse Hem Onc Scenery [address] [place] [address] 05/12/2024 10:00 AM EST Office Visit Family Practice [facility] [address] [facility] [place] [address] Malinda Owens CRNP 132 [facility] [place] [address] 08/06/2024 9:00 AM EST Telemedicine Genetics HemOnc, [facility] [address] [place], [place] [id number] Estephania Reyes, [place] [address] [place] [address] Pending Results Name Type Priority Associated Diagnoses [...] encounter Medical Devices Implanted Type Area Software Intern Device Identifier Shelf Expiration Date Model / Serial / Lot Stent Kev 4fr 11cm - [id number] Implanted:Qty: 1 on 02/08/2024 by [facility] Kerr [facility] [id number] 08/16/2028 [id number] / / [id number] documented as of this encounter Results * TSH WITH FREE T4 IF INDICATED (05/01/2024 8:42 AM EST) TSH 3.34 0.27 - 4.20 uIU/mL 05/01/2024 9:30 AM EST LABORATORY [facility] Blood Venous blood specimen / Unknown Venipuncture / Unknown 05/01/2024 8:42 AM EST 05/01/2024 8:43 AM EST Mandeep Luna MD LAB BLOOD ORDERABLES Fin al Result LABORATORY [address] [place] [address] documented in this encounter Visit Diagnoses Diagnosis [...] (HCC) documented in this encounter Care Teams Master Cook Relationship Specialty Start Date End Date Malinda Owens CRNP [address] [facility] [place] [address] PCP - General Nurse Practitioner 09/20/23 documented as of this encounter
--- OUTSIDE RECORDS SUMMARY | 2024-09-05 14:44 | External Medical Summary | Summary of Care ---
Author Name Unknown Organization [facility] Address [address] [place] [facility] [place] [address] Phone [phone] Care Team Providers Care Human Resource Analyst Name Role Phone Malinda Owens Primary Care Provider [phone] Reason for Visit * Reason Onset Date Comments Precert Future 04/30/2024 Keytruda/ carbo/ taxol--> keytruda/ AC Encounter Details Date Type Department Care Team (Late st Contact Info) Description 04/30/2024 Telephone Hematology/Oncology Treatment, [place] [address] [place] [address] Mandeep Luna MD 200 [place] [address] Precert Future (Keytruda/ carbo/ taxol--> ... Allergies [...] complete. Enrolled in Current Health. Plans to potato picker meter from pharmacy today. Instructions provided [...] and class I obesity. Per review of MARKING MACHINE OPERATOR documentation of 09/25/23, blood glucose [...] nutrition consult with RDN (Registered Dietitian Marble Worker). Lifestyle changes are also indicated including [...] and folate levels and referral to a pre algebra teacher. If hemoglobin levels are below 8 g/dl, we recommend Maternal Medicine ultrasound for growth every 4 weeks after 24 weeks. Consider a blood transfusion if hemoglobin levels fall below 6 g/dL. ([employer]st[employer] and Irrigation System Installer Practice Bulletin Number 95, December,). Consider [...] money to get more. 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 Not on file [...] 05/02/2024 11:25 AM EST Hospital Encounter OR [facility], Operating Room, [facility] - 4th Floor [address] [address] Iam Curry MD [address] [place] [address] 05/02/2024 11:25 AM EST - 05/02/2024 12:20 PM EST Surgery OR [facility], Operating Room, [facility] - 4th Floor [address] [address] Iam Curry MD [address] [place] [address] INSERT TUNNELED CENTRAL VENOUS ACCESS WITH SUBQ PORT 05/07/2024 8:00 AM EST Imaging Radiology [facility] 1st [facility], [place] [address] [facility] [address] [facility] [place] [address] 05/07/2024 11:30 AM EST Pt Ed by Nurse Hematology/Oncolog y Scenery [place] [address] [place] [phone] [place] Nurse Hem Onc Scenery [address] [place] [address] 05/07/2024 12:30 PM EST Laboratory Laboratory Scenery [place] [address] [place] [phone] [place], Lab Scenery [address] [place] [address] 05/08/2024 8:45 AM EST Hem/Onc Treatment Hematology/Oncolog y Treatment, [place] [address] [place] [address] [place], Chair 9 Hem Onc Scenery [address] [place], [place] [address] 05/12/2024 10:00 AM EST Office Visit Family [facility] [address] [facility] [address] Malinda Owens CRNP [address] [place] [address] 08/06/2024 9:00 AM EST Telemedicine Genetics HemOnc, [facility] [address] [place] [address] Estephania Reyes, [place] [address] [place], [place] [address] Pending Results Name Type Priority Associated Diagnoses [...] this encounter Medical Devices Implanted Type Area Indigo Mixer Device Identifier Shelf Expiration Date Model / Serial / Lot Stent Kev montes de ocar 11cm - [id number] Implanted:Qty: 1 on 02/08/2024 by Jeffrey Kerr MD at OR [facility] [employer] [id number] 08/16/2028 [id number] / / [id number] documented as of this encounter Results * TSH WITH FREE T4 IF INDICATED (05/01/2024 8:42 AM EST) TSH 3.34 0.27 - 4.20 uIU/mL 05/01/2024 9:30 AM EST LABORATORY [facility] Blood Venous blood specimen / Unknown Venipuncture / Unknown 05/01/2024 8:42 AM EST 05/01/2024 8:43 AM EST Mandeep Luna MD LAB BLOOD ORDERABLES Fin al Result LABORATORY [address] [place] [address] documented in this encounter Visit Diagnoses [...] (HCC) documented in this encounter Care Teams Human Resource Analyst Relationship Specialty Start Date End Date Malinda Owens CRNP 132 [facility] [place] [address] PCP - General Nurse Practitioner 09/20/23 documented as of this encounter
--- OUTSIDE RECORDS SUMMARY | 2024-09-05 14:44 | External Medical Summary | Summary of Care ---
Author Name Unknown Organization [facility] Address [address] [place] [address] Phone [phone] Care Team Providers Care Production Recovery Operator Name Role Phone Malinda Owens Primary Care Provider [phone] Reason for Visit * Reason Comments Outpatient Testing Encounter Details Date Type Department Care Team (Late st Contact Info) Description 05/01/2024 8:45 AM EST Laboratory Laboratory, [facility] [address] [place] [phone] [facility], Lab [address] [place] [address] [id number] Malignant neoplasm of upper-outer quadrant of left female breast (HCC)*; Estrogen receptor negative status (ER-); Malignant neoplasm of upper-outer quadrant of left [...] and class I obesity. Per review of OCCUPATIONAL HEALTH PHYSIOTHERAPIST documentation of 4/9/24, blood glucose values have been well-controlled with [...] Recommend nutrition consult with RDN (Registered Dietitian Pinking Machine Operator). Lifestyle changes are also indicated [...] and folate levels and referral to a endless steamer tender. If hemoglobin levels are below 8 g/dl, we recommend Maternal Medicine ultrasound for growth every 4 weeks after 24 weeks. Consider a blood transfusion if hemoglobin levels fall below 6 g/dL. ([employer] and Road Passenger Firer Practice Bulletin Number 95, December,). Consider Venofer [...] to get more. 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 on file Not on file documented as of this encounter Plan of Treatment Upcoming Encounters Date Type Department Care Team (Latest Contact Info) Description 05/02/2024 11:25 AM EST Hospital Encounter OR [facility], Operating Room, [facility] - 4th Floor [address] [phone] Iam Curry MD [address] [address] 05/02/2024 11:25 AM EST - 05/02/2024 12:20 PM EST Surgery OR [facility], Operating Room, [facility] - 4th Floor [address] [phone] Iam Curry MD [address] [address] INSERT TUNNELED CENTRAL VENOUS ACCESS WITH SUBQ PORT 05/07/2024 8:00 AM EST Imaging Radiology [facility] 1st [facility] [address] [facility] [place] [address] 05/08/2024 9:00 AM EST Office Visit Hematology/Oncolog y [facility] [place] [address] [place] [phone] Em Ng MD [address] [phone] 05/08/2024 9:30 AM EST Pt Ed by Nurse Hematology/Oncolog y [facility] [place] [address] [place] [phone] [place], Nurse Hem Onc Scenery [address] [place] [address] 05/12/2024 10:00 AM EST Office Visit Family Practice [facility] [address] [place] [address] Malinda Owens CRNP [address] [place] [address] 08/06/2024 9:00 AM EST Telemedicine Genetics [facility], [facility] [address] [place] [address] Estephania Reyes, [place] [address] [place], [place] [phone] Pending Results Name Type Priority Associated Diagnoses Date /Time BETA-HCG, QUANTITATIVE Lab STAT Malignant neoplasm of upper-outer quadrant of left female breast (HCC) Estrogen receptor negative status (ER-) 05/01/2024 8:42 AM EST COMPREHENSIVE METABOLIC PANEL Lab STAT Malignant neoplasm of upper-outer quadrant of left breast in female, estrogen receptor negative (HCC) 05/01/2024 8:42 AM EST CEA Lab Routine Malignant neoplasm of upper-outer quadrant of left breast in female, estrogen receptor negative (HCC) 05/01/2024 8:42 AM EST CA 27.29 Lab Routine Malignant neoplasm of upper-outer quadrant of left breast in female, estrogen receptor negative (HCC) 05/01/2024 8:42 AM EST HEPATITIS B SURFACE ANTIBODY Lab STAT Malignant [...] receptor negative (HCC) 05/01/2024 8:42 AM EST TSH WITH FREE T4 IF INDICATED Lab STAT Malignant neoplasm of upper-outer quadrant of left breast in female, estrogen receptor negative (HCC) 05/01/2024 8:42 AM EST Scheduled Orders Name Type Priority Associated Diagnoses Orde r Schedule BETA-HCG, QUANTITATIVE Lab STAT Malignant neoplasm of upper-outer quadrant of left female breast (HCC) Estrogen receptor negative status (ER-) Expected: 05/01/2024, Expires: 05/01/2025 Scheduled Procedures Name Priority Associated Diagnoses Date/Ti [...] this encounter Medical Devices Implanted Type Area Welder Gas Automatic Device Identifier Shelf Expiration Date Model / Serial / Lot Therese Angulo 4fr 11cm - [id number] Implanted:Qty: 1 on 02/08/2024 by Jeffrey Kerr [facility] [id number] 08/16/2028 [id number] / / [id number] documented as of this encounter Procedures Procedure Name Priority Date/Time Associated Diagnosis Comments DIFFERENTIAL, AUTOMATED STAT 05/01/2024 8:42 AM EST Malignant neoplasm of upper-outer quadrant of left breast in female, estrogen receptor negative (HCC) CBC STAT 05/01/2024 8:42 AM EST Malignant neoplasm of upper-outer quadrant of left breast in female, estrogen receptor negative (HCC) CBC STAT 05/01/2024 8:42 AM EST Malignant neoplasm of upper-outer quadrant of left breast in female, estrogen receptor negative (HCC) documented in this encounter Results * (ABNORMAL) DIFFERENTIAL, AUTOMATED (05/01/2024 8:42 AM EST) WBC 4.85 4.00 - 10.80 K/uL 05/01/2024 8:50 AM EST [facility] Neutrophils % 35.5(L) 40.0 - 75.0 % 05/01/2024 8:50 AM EST [facility] Lymphocytes % 51.1(H) 18.0 - 42.0 % 05/01/2024 8:50 AM EST [facility] Monocytes % 8.7 1.0 - 11.0 % 05/01/2024 8:50 AM EST [facility] Eosinophils % 3.9 0.0 - 6.0 % 05/01/2024 8:50 AM EST [facility] Basophils % 0.8 0.0 - 2.0 % 05/01/2024 8:50 AM EST [facility] Immature Granulocytes % 0.0 0.0 - 2.0 % 05/01/2024 8:50 AM EST [facility] Absolute Neutrophils 1.72(L) 1.80 - 7.70 K/uL 05/01/2024 8:50 AM EST [facility] Absolute Lymphocytes 2.48 1.00 - 4.80 K/ul 05/01/2024 8:50 AM EST [facility] Absolute Monocytes 0.42 0.00 - 1.10 K/uL 05/01/2024 8:50 AM EST [facility] Absolute Eosinophils 0.19 0.00 - 0.70 K/uL 05/01/2024 8:50 AM EST [facility] Absolute Basophils 0.04 0.00 - 0.20 K/uL 05/01/2024 8:50 AM EST [facility] Absolute Immature Granulocytes 0.00 0.00 - 0.20 K/uL 05/01/2024 8:50 AM EST [facility] Blood Venous blood specimen / Unknown Venipuncture / Unknown 05/01/2024 8:42 AM EST 05/01/2024 8:43 AM EST Mandeep Luna MD LAB BLOOD ORDERABLES Fin al Result Performing Organization Address City/[facility]/ZIP Co de Phone Number LABORATORY [facility] [address] [place] [address] * CBC (05/01/2024 8:42 AM EST) WBC 4.85 4.00 - 10.80 K/uL 05/01/2024 8:50 AM EST [facility] RBC 3.86 3.85 - 5.15 M/uL 05/01/2024 8:50 AM EST [facility] HGB 12.3 12.0 - 15.3 g/dL 05/01/2024 8:50 AM EST [facility] HCT 37.6 36.0 - 45.2 % 05/01/2024 8:50 AM EST [facility] MCV 97.4 81.5 - 97.5 fL 05/01/2024 8:50 AM EST [facility] MCH 31.9 27.0 - 34.0 pg 05/01/2024 8:50 AM EST LABORATORY GL MCHC 32.7 32.0 - 36.0 g/dL 05/01/2024 8:50 AM EST LABORATORY [facility] RDW 12.0 11.5 - 15.5 % 05/01/2024 8:50 AM EST [facility] PLT 233 140 - 400 K/uL 05/01/2024 8:50 AM EST LABORATORY [facility] MPV 9.6 6.6 - 11.1 fL 05/01/2024 8:50 AM EST LABORATORY [facility] nRBCs 0 <=0 /100 WBCs 05/01/2024 8:50 AM EST [facility] Blood Venous blood specimen / Unknown Venipuncture / Unknown 05/01/2024 8:42 AM EST 05/01/2024 8:43 AM EST Mandeep Luna MD LAB BLOOD ORDERABLES Fin al Result Performing Organization Address City/[facility]/ZIP Co de Phone Number LABORATORY [facility] [address] [place] [address] documented in this encounter Visit [...] Malignant neoplasm of upper-outer quadrant of left female breast (HCC)- Primary Malignant neoplasm of upper-outer quadrant of female breast Estrogen receptor negative status (ER-) Estrogen receptor negative status [ER-] Malignant neoplasm of upper-outer quadrant of left breast in female, estrogen receptor negative (HCC) Malignant neoplasm of upper-outer quadrant of left breast in female, estrogen receptor negative (HCC) documented in this encounter Care Teams Production Recovery Operator Relationship Specialty Start Date End Date Malinda Owens CRNP [address] [place] [address] PCP - General Nurse Practitioner 09/20/23 documented as of this encounter
--- OUTSIDE RECORDS SUMMARY | 2024-09-05 14:45 | External Medical Summary ---
Author Name Unknown Address Unknown Organization K01:LABORATORY [facility] [place] - [facility] [place] [address] [place] [address] Laboratory Report Ordering Provider Test Date Status YAYALISE 05/01/2024 08:42:52 Final Observation Date Value Abnormality Reference (Units ) Status Hepatitis B virus core Ab [Presence] in Serum 05/01/2024 08:42:52 Negative Negative Final Performing Location LAB[facility]ATORY [facility] [place] - [address] [place] [address]
--- OUTSIDE RECORDS SUMMARY | 2024-09-05 14:45 | External Medical Summary ---
Author Name Unknown Address Unknown Organization K01:LABORATORY [place] [address] [place] [address] Laboratory Report Ordering Provider Test Date Status JAVIERLISE 05/01/2024 08:42:52 Final Observation Date Value Abnormality Reference (Units) Status Hepatitis B virus surface Ab [Units/volume] in Serum or Plasma by Immunoassay 05/01/2024 08:42:52 <3.5 (mIU/mL) Final Hepatitis B virus surface Ab [Presence] in Serum by Immunoassay 05/01/2024 08:42:52 Negative Final HEPATITIS B SURFACE ANTIBODY, INTERPRETATION 05/01/2024 08:42:52 NOT immune to Hepatitis B Virus Final POSITIVE: >=11.5 mIU/mL
INDETERMINATE: 8.5-<11.5 mIU/mL
NEGATIVE: <8.5 mIU/mL Performing Location LABORATORY [facility] [place] - [facility] [address] [place] [address]
--- OUTSIDE RECORDS SUMMARY | 2024-09-05 14:45 | External Medical Summary ---
Author Name Unknown Address Unknown Organization K1F:LABORATORY [facility] - [address] [place] [address] Laboratory Report Ordering Provider Test Date Status LISE JAVIER 05/01/2024 08:42:52 Final Observation Date Value Abnormality Reference (Units ) Status TSH 05/01/2024 08:42:52 3.34 0.27-4.20 (uIU/mL) Final Performing Location LABORATORY [facility] - [address] [place] [address]
--- OUTSIDE RECORDS SUMMARY | 2024-09-05 14:45 | External Medical Summary | Summary of Care ---
Author Name Unknown Organization [facility] Address [address] [place] [address] Phone [phone] Care Team Providers Care Accounts Officer Name Role Phone Malinda Owens AD Primary Care Provider [phone] Reason for Referral * Precert (Within 24 hrs (call dept; emergent)) - Pending Review Specialty Diagnoses / Procedures Referred By Contac t Referred To Contact Radiology Diagnoses Malignant neoplasm of upper-outer quadrant of left breast in female, estrogen receptor negative (HCC) Procedures IR VENOUS ACCESS MEDIPORT Sydnee Ng MD [address] [place] [address] Phone: tel: fax: Referral ID Status Reason Start Date Expiration Date V isits Requested Visits Authorized [id number] Pending Review 04/24/2024 999 999 * Precert (Diagnostic Medical) (Within 10 days (routine)) - Authorized Specialty Diagnoses / Procedures Referred By Contac t Referred To Contact Cardiac Studies Diagnoses Malignant neoplasm of upper-outer quadrant of left breast in female, estrogen receptor negative (HCC) Procedures ECHO, COMPLETE (2D), TRANS-THORACIC Sydnee Ng MD [address] [place] [address] Phone: tel: fax: Referral ID Status Reason Start Date Expiration Date V isits Requested Visits Authorized [id number] Authorized Precert 04/24/2024 05/24/2024 999 999 * Precert (Within 24 hrs (call dept; emergent)) - Authorized Specialty Diagnoses / Procedures Referred By Contac t Referred To Contact Radiology Diagnoses Malignant neoplasm of upper-outer quadrant of left breast in female, estrogen receptor negative (HCC) Procedures PET CT SKULL BASE TO MID-THIGH FDG Sydnee Ng MD [address] [address] Phone: tel: fax: Referral ID Status Reason Start Date Expiration Date V isits Requested Visits Authorized [id number] Authorized Precert 05/01/2024 05/31/2024 999 999 Reason [...] cancer (HCC) Kina Capps PA-C [address] [facility] [address] Phone: tel: fax: Referral ID Status Reason Start Date Expiration Date Visits Requested Visits Authorized [id number] Pending Review Specialty Services Required 04/18/[phone] Encounter Details Date Type Department Care Team (Late st Contact Info) Description 04/24/2024 8:00 AM EST Office Visit Hematology/Oncology [facility]is[facility] [address] [facility] [place] [address] Sydnee Ng MD [address] [address] Malignant neoplasm of upper-outer quadrant of left breast in female, estrogen receptor negative (HCC)*; Need for prophylactic vaccination and inoculation against influenza Allergies No known active allergiesdocumented as of this encounter (statuses as of 04/29/2024) Medications 19 29-1 MG Oral Tablet Chewable Take by mouth. Active Ibuprofen 600 MG Oral Tablet (Motrin) Take 1 Tablet by mouth every 6 hours as needed (pain). 11/02/2023 Active documented as of this encounter (statuses as of 04/29/2024) Active Problems Problem Noted Date Diagnosed Date Malignant neoplasm of upper- outer quadrant of [...] and class I obesity. Per review of SHANK FAKER documentation of 09/25/23, blood glucose values have [...] Recommend nutrition consult with RDN (Registered Dietitian Plastic Design Applier). Lifestyle changes are also indicated including optimizing [...] and folate levels and referral to a investigative shopper. If hemoglobin levels are below 8 g/dl, we recommend Maternal Medicine ultrasound for growth every 4 weeks after 24 weeks. Consider a blood transfusion if hemoglobin levels fall below 6 g/dL. ([employer] and Single Needle Operator Practice Bulletin Number 95, December,). Consider [...] as of this encounter (statuses as of 04/29/2024) Resolved Problems Problem Noted Date Diagnosed Date Resolved Date Abnormal glucose tolerance i n mother complicating 04/19/2023 08/31/2023 Overview (04/19/2023): Failed early glucola. 3hr GTT ordered documented as of this encounter (statuses as of 04/29/2024) Immunizations Name Administration Dates Next Due DTP [...] money to get more. Never true 03/26/2024 [place] Depression Scale Answer Date Recorded [place] Depression Scale Total 6 12/11/2023 The [...] Progress Notes * Sydnee Ng MD - 04/24/2024 8:25 [...] changes. The patient presents with her , [id number] as well as her mother for today's [...] formalin with a container labeled with "Yuli Matt", "[id number]", "1994" and " left breast 2/three o'clock [...] 12 cm from nipple, core biopsy (block [id number]): Invasive mammary carcinoma of no special type, grade 3. Estrogen Receptor (ER) protein expression is NEGATIVE <1% nuclear positivity COMMENT: Assay internal and external control immunoreactivity is appropriate. 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 She is scheduled to undergo bilateral breast MRI on [id number]. Malignant neoplasm of upper-outer quadrant of left [...] hereby consent to and request SYDNEE Nguyen [[id number]] and whoever he/she may designate as his/her medical library assistant to administer to me chemotherapy in the form of QGD104: Pembrolizumab 200 mg D1 + Paclitaxel 80 mg/m D1, 8, 15 + Carboplatin AUC=5 D1 q21 Days x 12 Weeks, Followed by Pembrolizumab 200 mg + Doxorubicin + Cyclophosphamide q21 Days x 12 Weeks, Followed by Surgery. In giving such authorization, I hereby acknowledge that my attending physician, SYDNEE Nguyen [[id number]] has fully explained to my satisfaction, the [...] plan of care. Sydnee Ng MD Hematology/Oncology [facility] [place] [address] [address] PAST MEDICAL HISTORY: Past Medical History: Diagnosis [...] performed by Jeffrey Kerr MD at OR [facility] US GUIDED BREAST BIOPSY LEFT Left [...] affect her risk of local recurrence and stone driller helper in the decision for breast conservation [...] now, she would not need a marina kiln maintenance placement as the tumor is palpable (will do specimen radiograph). Should she undergo chemo upfront, will plan on marina kiln maintenance placement if the lesion is no longer palpable. We reviewed that bilateral mastectomies or unilateral mastectomy with or without reconstruction canalso be chosen depending on patient preference or can be recommended pending the above testing results. We discussed that reconstruction is generally done in two stages with a temporary tissue icu rn placed initially followed by a final reconstruction [...] to use vaginal estrogen creamas prescribed by rn obgyn for vaginal dryness/ dyspareunia. PLAN: Genetic counseling/ testing Medical oncology consult - scheduled for Bilateral breast MRI Pending above, tentative left lumpectomy and sln biopsy after neoadjuvant chemo. * Em Mendoza LPN - 04/24/2024 8:03 AM EST PRE - ADMINISTRATION DOCUMENTATION Are you experiencing any cold symptoms or fever? No Have you had Guillain-Remer Syndrome (an illness that causes paralysis) within [...] Contact Info) Description 04/30/2024 7:45 AM EST Appointment Cardiac Studies, [address] [place] [address] 05/01/2024 7:00 AM EST Appointment Radiology, [address] [place] [address] 05/02/2024 11:25 AM EST Hospital Encounter OR [facility], Operating Room, [facility] - 4th Floor [address] [place], [place] [address] [address] Iam Curry MD [address] [place] [address] [place] [address] 05/02/2024 11:25 AM EST - 05/02/2024 12:20 PM EST Surgery OR [facility], Operating Room, [facility] - 4th Floor [address] [place] [address] [place] [address] Iam Curry MD [address] [place], [place] [address] [address] INSERT TUNNELED CENTRAL VENOUS ACCESS WITH SUBQ PORT 05/07/2024 8:00 AM EST Imaging Radiology [facility] [place] [address] [facility] [place] [address] 05/08/2024 9:00 AM EST Office Visit Hematology/Oncolog y [place] [facility] Quis[place] [address] [place] [address] Sydnee Ng MD [address] [place] [address] [place] [address] 05/08/2024 9:30 AM EST Pt Ed by Nurse Hematology/Oncolog y Rafael Amato [place] [address] [place] [address] Nurse Carloz Amato Onc Scenery [address] [place] [address] 05/12/2024 10:00 AM EST Office Visit Family Practice [facility] [address] [place] [address] Malinda Owens CRNP [address] [place] [address] 08/06/2024 9:00 AM EST Telemedicine Genetics Hem[facility]c, [facility] [address] [place] [address] Estephania Reyes, [place] [address] [place], [place] [phone] Scheduled Orders Name Type Priority Associated Diagnoses Orde r Schedule PET CT SKULL BASE TO MID-THIGH FDG Medical Imaging STAT Malignant neoplasm of upper-outer quadrant of left breast in female, estrogen receptor negative (HCC) Expected: 04/24/2024, Expires: 05/24/2025 HCG QUALITATIVE, URINE Lab Routine Malignant neoplasm of upper-outer quadrant of left breast in female, estrogen receptor negative (HCC) Expected: 04/24/2024, Expires: 04/24/2025 CBC WITH WBC DIFFERENTIAL Lab Routine Malignant neoplasm of upper-outer quadrant of left breast in female, estrogen receptor negative (HCC) Expected: 04/24/2024, Expires: 04/24/2025 PT INR Lab Routine Malignant neoplasm of upper-outer quadrant of left breast in female, estrogen receptor negative (HCC) Ordered: 04/24/2024 COMPREHENSIVE METABOLIC PANEL Lab STAT Malignant neoplasm [...] receptor negative (HCC) Expected: 04/24/2024, Expires: 04/24/2025 ECHO, COMPLETE (2D), TRANS-THORACIC Echocardiology Routine Malignant neoplasm of upper-outer quadrant of left breast in female, estrogen receptor negative (HCC) Expected: 04/24/2024 (Approximate), Expires: 05/24/2026 IR VENOUS ACCESS MEDIPORT Medical Imaging STAT [...] this encounter Medical Devices Implanted Type Area Leather Sprayer Device Identifier Shelf Expiration Date Model / Serial / Lot Therese montes de ocar 11cm - [id number] Implanted:Qty: 1 on 02/08/2024 by Jeffrey Kerr [facility] [id number] 08/16/2028 [id number] / / [id number] documented as of this encounter Visit Diagnoses [...] (HCC) documented in this encounter Care Teams Accounts Officer Relationship Specialty Start Date End Date Malinda Owens CRNP [address] [place] [address] PCP - General Nurse Practitioner 09/20/23 documented as of this encounter
--- OUTSIDE RECORDS SUMMARY | 2024-09-05 14:45 | External Medical Summary ---
Author Name Unknown Address Unknown Organization K1F:LABORATORY [facility] - [address] [facility]. [place] [address] Laboratory Report Ordering Provider Test Date Status LISE JAVIER 05/01/2024 08:42:52 Final Observation Date Value Abnormality Reference (Units ) Status SYNC LEUKOCYTES IN BLOOD BY AUTOMATED COUNT 05/01/2024 08:42:52 4.85 4.00-10.80 (K/uL) Final Segs 05/01/2024 08:42:52 35.5 Below low normal 40.0-75.0 (%) Final Lymphs % 05/01/2024 08:42:52 51.1 Above high normal 18.0-42.0 (%) Final Monos 05/01/2024 08:42:52 8.7 1.0-11.0 (%) Final Eosinophils 05/01/2024 08:42:52 3.9 0.0-6.0 (%) Final Basos 05/01/2024 08:42:52 0.8 0.0-2.0 (%) Final Immature Granulocyte, Percent 05/01/2024 08:42:52 0.0 0.0-2.0 (%) Final Absolute Segs 05/01/2024 08:42:52 1.72 Below low normal 1.80-7.70 (K/uL) Final Lymphs, absolute 05/01/2024 08:42:52 2.48 1.00-4.80 (K/ul) Final Monos, Abs 05/01/2024 08:42:52 0.42 0.00-1.10 (K/uL) Final Eos, Abs 05/01/2024 08:42:52 0.19 0.00-0.70 (K/uL) Final Basos, Abs 05/01/2024 08:42:52 0.04 0.00-0.20 (K/uL) Final Immature Granulocytes, Number 05/01/2024 08:42:52 0.00 0.00-0.20 (K/uL) Final Performing Location LABORATORY [facility] [place] [address]. [place] [address]
--- OUTSIDE RECORDS SUMMARY | 2024-09-05 14:45 | External Medical Summary | Summary of Care ---
Author Name Unknown Organization [facility] Address [address] [place] [address] Phone [phone] Care Team Providers Care Superintendent Generating Plant Name Role Phone Malinda Owens Primary Care Provider [phone] Reason for Visit * Reason Onset Date Comments Appointment 04/28/2024 IBETH Encounter Details Date Type Department Care Team (Late st Contact Info) Description 04/28/2024 Telephone Hematology/Oncology [facility] [place] [address] [facility] [address] Services, Scheduling [address] [place] [address] Appointment (IBETH) Allergies No known active allergiesdocumented as of this encounter (statuses as of 04/28/2024) Medications 19 29-1 MG Oral Tablet Chewable Take by mouth. Active Ibuprofen 600 MG Oral Tablet (Motrin) Take 1 Tablet by mouth every 6 hours as needed (pain). 11/02/2023 Active documented as of this encounter (statuses as of 04/28/2024) Active Problems Problem Noted Date Diagnosed Date [...] and class I obesity. Per review of [employer] documentation of 09/25/23, blood glucose values [...] Recommend nutrition consult with RDN (Registered Dietitian Tai Chi Instructor). Lifestyle changes are also indicated including [...] folate levels and referral to a hostess party sales representative. If hemoglobin levels are below 8 g/dl, we recommend Maternal Medicine ultrasound for growth every 4 weeks after 24 weeks. Consider a blood transfusion if hemoglobin levels fall below 6 g/dL. ([employer] Bulletin Number 95, December,). Consider Venofer [...] as of this encounter (statuses as of 04/28/2024) Resolved Problems Problem Noted Date Diagnosed Date Resolved Date Abnormal glucose tolerance i n mother complicating 04/19/2023 08/31/2023 Overview (04/19/2023): Failed early glucola. 3hr GTT ordered documented as of this encounter (statuses as of 04/28/2024) Immunizations Name Administration Dates Next Due DTP [...] money to get more. Never true 03/26/2024 [place] Depression Scale Answer Date Recorded [place] Depression Scale Total 6 12/11/2023 The thought [...] No 03/26/2024 Does the household have a [facility] source of income? 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 She verbalized understanding. * Telephone Encounter - Lorraine Ramírez OSA - 04/28/2024 12:14 PM EST Patient calling in- she would like to know if she will begin treatment on 05/[address] Gurrola's recommendation. documented in this encounter Plan of Treatment Upcoming Encounters Date Type Department Care Team (Latest Contact Info) Description 04/30/2024 7:45 AM EST Appointment Cardiac Studies, [address] [place] [address] 05/01/2024 7:00 AM EST Appointment Radiology, [address] [place] [address] 05/02/2024 11:25 AM EST Hospital Encounter OR GL, Operating Room, [facility] - 4th Floor [address] [place] [address] [place] [address] Iam Curry MD [address] [place] [address] 05/02/2024 11:25 AM EST - 05/02/2024 12:20 PM EST Surgery OR GL, Operating Room, [facility] - 4th [address] [place] [address] Iam Curry MD [address] [place] [address] [place] [address] INSERT TUNNELED CENTRAL VENOUS ACCESS WITH SUBQ PORT 05/07/2024 8:00 AM EST Imaging Radiology [facility] 1st [facility], [place] [address] [place] [address] 05/08/2024 9:00 AM EST Office Visit Hematology/Oncolog y [place] [address] [place] [phone] Em Ng MD [address] [facility] [place] [address] 05/08/2024 9:30 AM EST Pt Ed by Nurse Hematology/Oncolog y [facility] [address] [place] [phone] [place], Nurse Hem Onc Scenery [address] [place] [address] 05/12/2024 10:00 AM EST Office Visit [facility] [address] [facility] [address] Malinda Owens CRNP [address] [place] [address] 08/06/2024 9:00 AM EST Telemedicine Genetics HemOnc, [facility] [address] [place] [address] Estephania Reyes, MS [address] [place] [address] Scheduled Procedures Name Priority Associated Diagnoses Date/Ti [...] this encounter Medical Devices Implanted Type Area Veneer Sample Maker Device Identifier Shelf Expiration Date Model / Serial / Lot Stent Kev 4fr 11cm - [id number] Implanted:Qty: 1 on 02/08/2024 by Jeffrey Kerr MD at [facility] [id number] 08/16/2028 [id number] / / [id number] documented as of this encounter Care Teams Superintendent Generating Plant Relationship Specialty Start Date End Date Malinda Owens CRNP [address] [place] [address] PCP - General Nurse Practitioner 09/20/23 documented as of this encounter
--- OUTSIDE RECORDS SUMMARY | 2024-09-05 14:45 | External Medical Summary ---
Author Name Unknown Address Unknown Organization [id number]:[facility] - [address] [facility] [place] [address] Laboratory Report Ordering Provider Test Date Status LISE JAVIER 05/01/2024 08:42:52 Final hCG can serve as a screening assay for . However, early may not give a positive hCG test result. In addition, some non- women may have a hCG result slightly higher than the reference limit. Careful interpretation of the hCG with clinical history is required to determine whether the patient may be . Observation Date Value Abnormality Reference (Units ) Status Choriogonadotropin.intact +Beta subunit [Units/volume] in Serum or Plasma 05/01/2024 08:42:52 <0.3 <=1.0 (mIU/mL) Final Performing Location [facility] - [address] [facility] [place] [address]
--- OUTSIDE RECORDS SUMMARY | 2024-09-05 14:45 | External Medical Summary | Summary of Care ---
Author Name Unknown Organization [facility] Address [address] [place] [address] Phone [phone] Care Team Providers Care Special Distribution Clerk Name Role Phone Malinda Owens AD Primary Care Provider Reason for Referral * Precert (Within 24 hrs (call dept; emergent)) - Pending Review Specialty Diagnoses / Procedures Referred By Contac t Referred To Contact Radiology Diagnoses Malignant neoplasm of upper-outer quadrant of left breast in female, estrogen receptor negative (HCC) Procedures IR VENOUS ACCESS MEDIPORT Em Ng MD [address] [place] [address] Phone: tel: fax: Referral ID Status Reason Start Date Expiration Date V isits Requested Visits Authorized [id number] Pending Review 04/24/2024 999 999 * Precert (Diagnostic Medical) (Within 10 days (routine)) - Authorized Specialty Diagnoses / Procedures Referred By Contac t Referred To Contact Cardiac Studies Diagnoses Malignant neoplasm of upper-outer quadrant of left breast in female, estrogen receptor negative (HCC) Procedures ECHO, COMPLETE (2D), TRANS-THORACIC Em Ng MD [address] [place] [address] Phone: tel: fax: Referral ID Status Reason Start Date Expiration Date V isits Requested Visits Authorized [id number] Authorized Precert 04/24/2024 05/24/2024 999 999 * Precert (Within 24 hrs (call dept; emergent)) - Pending Review Specialty Diagnoses / Procedures Referred By Bennie gilliland Referred To Contact Radiology Diagnoses Malignant neoplasm of upper-outer quadrant of left breast in female, estrogen receptor negative (HCC) Procedures PET CT SKULL BASE TO MID-THIGH FDG Em Ng MD [address] [place] [address] Phone: tel: fax: Referral ID Status Reason Start Date Expiration Date Visits Requested Visits Authorized [id number] Pending Review Precert 04/28/2024 06/27/2024 999 999 Reason for Visit * Reason Onset Date Comments NEW PATIENT Oncology Medication Administration 04/24/2024 Flu an d/or Pneumo Inj * Evaluate & Treat - Unlimited Visits (Within 3 days (urgent)) - Pending Review Specialty Diagnoses / Procedures Referred By Bennie gilliland Referred To Contact Hematology/Oncology / Hematology Oncology Diagnoses Malignant neoplasm of left female breast, unspecified estrogen receptor status, unspecified site of breast (HCC) Triple negative breast cancer (HCC) Kina Capps PA-C [address] [place] [address] Phone: tel: fax: Referral ID Status Reason Start Date Expiration Date Visits Requested Visits Authorized [id number] Pending Review Specialty Services Required 04/18/[phone] Encounter Details Date Type Department Care Team (Late st Contact Info) Description 04/24/2024 8:00 AM EST Office Visit Hematology/Oncology Rafael Amato [place] [address] [place] [phone] Em Ng MD [address] [place] [address] Malignant neoplasm of upper-outer quadrant of [...] class I obesity. Per review of [facility] [employer] [facility] [facility] documentation of 09/25/23, blood glucose values have [...] Recommend nutrition consult with RDN (Registered Dietitian Folding Machine Tender). Lifestyle changes are also indicated [...] and folate levels and referral to a sql ssis developer. If hemoglobin levels are below 8 g/dl, we recommend Maternal Medicine ultrasound for growth every 4 weeks after 24 weeks. Consider a blood transfusion if hemoglobin levels fall below 6 g/dL. ([employer] [facility] Bulletin Number 95, December,). Consider Venofer [...] money to get more. 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 Date of visit: 04/24/2024 REASON FOR CONSULTATION: Left Breast Cancer Clinical Stage 1 - T1N0, triple negative HPI: Yuli Gutierrez is a 29 year old female who was referred by Kina Capps PA-C for evaluation and discussion of newly diagnosed breast cancer. This was found on self examination when she felt a breast mass. Diagnostic imaging was done and showed a 18 mm hypoechoic irregular mass at left 2:00 12 cm FN. Axillary US was negative. She is s/p core biopsy, left ultrasound guided demonstrating a high grade invasive ductal carcinoma. Estrogen receptor status is negative. Progesterone receptor status is negative. HER-2/trent receptors negative. / pumping for 5.5 months. Brushed over when pumping. Texture of the skin of the inner breast left side was different - not red, not thickened. Just looked different - more leathery texture. Lump is not tender. Family history of breast cancer in maternal grandmother's sister - in her 30s. No genetic testing done in family. No ovarian cancer. 04/15/24: A. Breast, left, 2:00 / 3:00 position, 12 cm from nipple, core biopsy: Invasive mammary carcinoma of no special type, grade 3. Comment: The lesion exhibits some medullary features; [...] with a container labeled with "Yuli Gutierrez", "[id number]", "1995" and " left breast 2/three o'clock [...] 12 cm from nipple, core biopsy (block [id number]): Invasive mammary carcinoma of no special type, grade 3. Estrogen Receptor (ER) protein expression is NEGATIVE <1% nuclear positivity COMMENT: Assay internal and external control immunoreactivity is appropriate. Progesterone Receptor (AL) protein expression is NEGATIVE <1% nuclear positivity COMMENT: Assay internal and external control immunoreactivity is appropriate. HER2 oncoprotein expression is NEGATIVE ( 0 average membranous intensity) BREAST ROS: No severe breast pain, No nipple discharge, and No recent change in shape/color GYNECOLOGIC HISTORY: LMP: No LMP recorded. Menarche at age: 12 Menopause at age: n/a Number of children: Patient's age at first live : 28 Did you breast feed any of your children: Yes Ever take oral contraceptives? No Ever take estrogen? No RADIOLOGIC INTERPRETATION: 04/09/24: Result MAMMOGRAM DIAGNOSTIC KARIN BILATERAL US BREAST LIMITED LEFT History Breast lump on left side at 3 o'clock position Family medical history includes colon cancer in grandmother (maternal). The patient is currently breast feeding. Films Compared This is the patient's baseline mammogram. Findings Left MAMMOGRAM DIAGNOSTIC AKRIN BILATERAL The left breast is heterogeneously dense, which may obscure small masses. In the area of the palpable abnormality there is an underlying mass measuring 1.8 cm in the posterior outer breast. US BREAST LIMITED LEFT The breast tissue has a homogeneous background echotexture - fibroglandular. At the 2-3 o'clock position 12 cm from the nipple there is an irregular hypoechoic mass measuring 1.8 x 1.1 x 1.7 cm. No axillary adenopathy is appreciated. Right MAMMOGRAM DIAGNOSTIC KARIN BILATERAL The right breast is heterogeneously dense, which may obscure small masses. There is no evidence of suspicious masses, calcifications, or other abnormal findings in the right breast. Impression Left breast: Hypoechoic irregular mass at the 2-3 o'clock position. Recommend ultrasound- guided core biopsy. Right breast: No evidence of malignancy. BI-RADS Category: 4 - Suspicious. Recommendation US guided breast core biopsy is recommended for the left breast. Screening mammography beginning at age 40, or sooner if clinically indicated, is recommended for the right breast. ADDENDUM: Received from the department of pathology is the histology diagnosis of invasive mammary carcinoma of no special type, grade 3. The histology diagnosis is concordant with imaging findings. Surgical consultation and follow-up isadvised. Patient is aware of the findings, the results have been communicated to the patient by thereferring clinical staff. Patient has been provided with a referral to see Dr. Sinha in the Department of surgery. Patient is scheduled for consultation with Dr. Sinha on 04/22/2024. Mammography Promotions Representative Amber Moran has been notified for scheduling and tracking purposes. Signed by Sherin Iraheta MD on 04/21/2024 13:46 Narrative & Impression EXAM US GUIDED BREAST BIOPSY LEFT; MAMMOGRAM POST BIOPSY CLIP PLACEMENT- 04/15/2024 11:11 am; 1:17 am HISTORY Referred for ultrasound guided core biopsy of an 18 x 17 x 11 mm hypoechoic mass at 2/3 o'clock 12 cm from nipple, left breast. COMPARISON Bilateral mammogram and left breast ultrasound 04/09/2024. TECHNIQUE ANESTHESIA: 1% lidocaine NEMATOLOGY TEACHER: Dr. Mulligan was present for and performed the entire procedure. The following procedure/examinations were performed: - Ultrasound guided core biopsy and tissue marker placement - Post clip/tissue marker placement unilateral mammogram Following a discussion of the risks and benefits of the procedure as well as a discussion of alternatives to this procedure, the patient was given the opportunity to ask questions. Once the patient'squestions were answered to her satisfaction, informed consent was signed by the patient. A timeout,with verification of patient name and site of procedure was performed by Dr. Mulligan in the presence of vascular ultrasound technologist and it was confirmed that procedure matches verbalized consent. FINDINGS Preliminary ultrasound demonstrates an 18 x 17 x 11 mm hypoechoic mass at 2/3 o'clock 12 cm from nipple, left breast. Using aseptic technique, local anesthesia with 1% buffered lidocaine, a small skin incision was made with a surgical blade to permit passage of the 14 gauge core biopsy needle. A spring activated/ automated Sertera biopsy device and introducer cannula were utilized. Under direct sonographic guidance and visualization, several passes were made through the target and core specimen obtained. The core specimen were placed in formalin and submitted for histopathologic analysis. Under direct sonographic guidance and visualization, a heart shaped tissue marker was placed within the lesion for futurereference. Post procedural mammogram verified tissue marker placement. The patient tolerated the procedure well and there were no complications. Written discharge instructions were given to the patient and also reviewed verbally with her. The patient expressed understanding of the instructions and was discharged from the department in stable condition. IMPRESSION IMPRESSION 1. Ultrasound guided core biopsy of an 18 x 17 x 11 mm hypoechoic mass at 2/312 cm from nipple, left breast followed by tissue marker placement. 2. Position of the tissue marker is confirmed on unilateral mammogram obtained following the ultrasound-guided core biopsy and tissue marker placement. 3. Core specimen submitted for histopathologic interpretation. 4. A supplement/addendum to this report will follow pending receipt of pathology results. 5. Further follow-up and management recommendations will be forthcoming once this has been accomplished. FAMILY HISTORY: Family history of breast cancer: Maternal great grandmother's sister with early onset breast cancer Family history of ovarian cancer: None Family History Problem Relation Name Age of Onset No Known Problems Mother Diabetes Father Colon cancer Grandmother (Maternal) Other (old age) Grandfather (Maternal) Heart attack Grandfather (Paternal) PAST MEDICAL HISTORY: Past Medical History: Diagnosis [...] performed by Jeffrey Kerr MD at OR [facility] US GUIDED BREAST BIOPSY LEFT [...] affect her risk of local recurrence and firebrick layer helper in the decision for breast conservation [...] now, she would not need a marina process camera operator placement as the tumor is palpable (will do specimen radiograph). Should she undergo chemo upfront, will plan on marina process camera operator placement if the lesion is no longer palpable. We reviewed that bilateral mastectomies or unilateral mastectomy with or without reconstruction canalso be chosen depending on patient preference or can be recommended pending the above testing results. We discussed that reconstruction is generally done in two stages with a temporary tissue recreation director placed initially followed by a final reconstruction [...] to use vaginal estrogen creamas prescribed by dope edger for vaginal dryness/ dyspareunia. PLAN: Genetic counseling/ testing Medical oncology consult - scheduled for Bilateral breast MRI Pending above, tentative left lumpectomy and sln biopsy after neoadjuvant chemo. I spent a total of Greater than 55 mins (exact time 63 mins) on the date of service in preparation,delivery, and documentation of the care provided to Yuli Gutierrez excluding any time spent in the performance of separately billed services or time spent by another provider/QHP. Danielle Sinha M.D. 04/22/2024 1:01 PM * Em Mendoza LPN - 04/24/2024 8:03 AM EST PRE - ADMINISTRATION DOCUMENTATION Are you experiencing any cold symptoms or fever? No Have you had Guillain-[place] Syndrome (an illness that causes paralysis) within the last 6 weeks? No Have you had the flu shot in the past? YES Have you ever had a reaction to the flu shot? Jessica Mendoza LPN, 04/24/2024 8:03 AM Immunization Administration [...] 04/30/2024 7:45 AM EST Appointment Cardiac Studies, [address] [place] [address] 05/01/2024 7:00 AM EST Appointment Radiology, [address] [place] [address] 05/02/2024 11:25 AM EST Hospital Encounter OR [facility], Operating Room, [facility] - 4th Floor [address] [place] [address] Iam Curry MD [address] [place] [address] 05/02/2024 11:25 AM EST - 05/02/2024 12:20 PM EST Surgery OR [facility], Operating Room, [facility] - 4th Floor [address] [place], [place] [address] [address] Iam Curry MD [address] [place] [address] [place] [address] INSERT TUNNELED CENTRAL VENOUS ACCESS WITH SUBQ PORT 05/07/2024 8:00 AM EST Imaging Radiology [facility] 1st [facility] [place] [address] [facility] [place] [address] 05/08/2024 9:00 AM EST Office Visit Hematology/Oncolog y [facility] [address] [place] [address] Em Ng MD [address] [place] [address] 05/08/2024 9:30 AM EST Pt Ed by Nurse Hematology/Oncolog y [place] [place] [address] [place] [phone] Nurse [place] Hem Onc Scenery [address] [place] [address] 05/12/2024 10:00 AM EST Office Visit Family Practice [facility] [address] [place] [address] Malinda Owens CRNP [address] [place] [address] 08/06/2024 9:00 AM EST Telemedicine Genetics [facility], [facility] [address] [place] [address] Estephania Reyes, MS [address] [place] [address] Scheduled Orders Name Type Priority Associated Diagnoses [...] encounter Medical Devices Implanted Type Area Job Order Clerk Device Identifier Shelf Expiration Date Model / Serial / Lot Stent Kev 4fr 11cm - [id number] Implanted:Qty: 1 on 02/08/2024 by Jeffrey Kerr MD at OR [facility] [employer] [facility] [id number] 08/16/2028 [id number] / / [id number] documented as of this encounter Visit Diagnoses [...] (HCC) documented in this encounter Care Teams Special Distribution Clerk Relationship Specialty Start Date End Date Malinda Owens CRNP [address] [facility] [place] [address] PCP - General Nurse Practitioner 09/20/23 documented as of this encounter
--- OUTSIDE RECORDS SUMMARY | 2024-09-05 14:45 | External Medical Summary ---
Author Name Unknown Address Unknown Organization K01:[facility] - [address] [place] [address] Laboratory Report Ordering Provider Test Date Status IBETH RANDHAWA 05/01/2024 08:42:52 Final Observation Date Value Abnormality Reference (Units ) Status CEA 05/01/2024 08:42:52 0.9 <=5.2 (ng/ mL) Final Performing Location [facility] - [address] [place] [address]
--- OUTSIDE RECORDS SUMMARY | 2024-09-05 14:45 | External Medical Summary | Summary of Care ---
Author Name Unknown Organization [facility] Address [address] [facility] [place] [address] Phone [phone] Care Team Providers Care Operations Developer Name Role Phone Malinda Owens AD Primary Care Provider [phone] Reason for Referral * Precert (Within 24 hrs (call dept; emergent)) - Pending Review Specialty Diagnoses / Procedures Referred By Contac t Referred To Contact Radiology Diagnoses Malignant neoplasm of upper-outer quadrant of left breast in female, estrogen receptor negative (HCC) Procedures IR VENOUS ACCESS MEDIPORT Sydnee Ng MD [address] [place] [address] Phone: tel: fax: Referral ID Status Reason Start Date Expiration Date V isits Requested Visits Authorized [id number] Pending Review 04/24/2024 999 999 * Precert (Diagnostic Medical) (Within 10 days (routine)) - Authorized Specialty Diagnoses / Procedures Referred By Contac t Referred To Contact Cardiac Studies Diagnoses Malignant neoplasm of upper-outer quadrant of left breast in female, estrogen receptor negative (HCC) Procedures ECHO, COMPLETE (2D), TRANS-THORACIC Sydnee Ng MD [address] [place] [address] Phone: tel: fax: Referral ID Status Reason Start Date Expiration Date V isits Requested Visits Authorized [id number] Authorized Precert 04/24/2024 05/24/2024 999 999 * Precert (Within 24 hrs (call dept; emergent)) - Authorized Specialty Diagnoses / Procedures Referred By Contac t Referred To Contact Radiology Diagnoses Malignant neoplasm of upper-outer quadrant of left breast in female, estrogen receptor negative (HCC) Procedures PET CT SKULL BASE TO MID-THIGH FDG Sydnee Ng MD [address] [place] [address] Phone: tel: fax: Referral ID Status Reason Start Date Expiration Date V isits Requested Visits Authorized [id number] Authorized Precert 05/01/2024 05/31/2024 999 999 Reason [...] cancer (HCC) Kina Capps PA-C [address] [facility] [place] [address] Phone: tel: fax: Referral ID Status Reason Start Date Expiration Date Visits Requested Visits Authorized [id number] Pending Review Specialty Services Required 04/18/2024 999 999 Encounter Details Date Type Department Care Team (Late st Contact Info) Description 04/24/2024 8:00 AM EST Office Visit Hematology/Oncology [facility] [address] [place] [address] Sydnee Ng MD [address] [place] [address] Malignant neoplasm of upper-outer quadrant of left breast in female, estrogen receptor negative (HCC)*; Need for prophylactic vaccination and inoculation against influenza Allergies No known active allergiesdocumented as of this encounter (statuses as of 04/30/2024) Medications 19 29-1 MG Oral Tablet Chewable Take by mouth. Active Ibuprofen 600 MG Oral Tablet (Motrin) Take 1 Tablet by mouth every 6 hours as needed (pain). 11/02/2023 Active documented as of this encounter (statuses as of 04/30/2024) Active Problems Problem Noted Date Diagnosed Date [...] and class I obesity. Per review of CARE MANAGEMENT ASSOCIATE documentation of 09/25/23, blood glucose values [...] Recommend nutrition consult with RDN (Registered Dietitian Registered Midwife). Lifestyle changes are also indicated including optimizing [...] and folate levels and referral to a foam cutting supervisor. If hemoglobin levels are below 8 g/dl, we recommend Maternal Medicine ultrasound for growth every 4 weeks after 24 weeks. Consider a blood transfusion if hemoglobin levels fall below 6 g/dL. ([employer] Service Learning Coordinator Practice Bulletin Number 95, December,). Consider [...] as of this encounter (statuses as of 04/30/2024) Resolved Problems Problem Noted Date Diagnosed Date Resolved Date Abnormal glucose tolerance i n mother complicating 04/19/2023 08/31/2023 Overview (04/19/2023): Failed early glucola. 3hr GTT ordered documented as of this encounter (statuses as of 04/30/2024) Immunizations Name Administration Dates Next Due DTP [...] money to get more. 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 The patient presents with her , [id number] as well as her mother for today's [...] with a container labeled with "Yuli Matt", "[id number]", "1995" and " left breast 2/three o'clock [...] 12 cm from nipple, core biopsy (block [id number]): Invasive mammary carcinoma of no special type, grade 3. Estrogen Receptor (ER) protein expression is NEGATIVE <1% nuclear positivity COMMENT: Assay internal and external control immunoreactivity is appropriate. Progesterone Receptor (MD) protein expression is NEGATIVE <1% nuclear positivity [...] I hereby consent to and request SYDNEE Ngueyn [[id number]] and whoever he/she may designate as his/her social human services assistants to administer to me chemotherapy in the form of [id number]: Pembrolizumab 200 mg D1 + Paclitaxel 80 mg/m D1, 8, 15 + Carboplatin AUC=5 D1 q21 Days x 12 Weeks, Followed by Pembrolizumab 200 mg + Doxorubicin + Cyclophosphamide q21 Days x 12 Weeks, Followed by Surgery. In giving such authorization, I hereby acknowledge that my attending physician, SYDNEE Nguyen [[id number]] has fully explained to my satisfaction, the [...] plan of care. Sydnee Ng MD Hematology/Oncology [address] [address] PAST MEDICAL HISTORY: Past Medical History: Diagnosis [...] performed by Jeffrey Kerr MD at OR [facility] US GUIDED BREAST BIOPSY LEFT Left [...] affect her risk of local recurrence and heater room helper in the decision for breast conservation [...] now, she would not need a marina tool technician placement as the tumor is palpable (will do specimen radiograph). Should she undergo chemo upfront, will plan on marina tool technician placement if the lesion is no longer palpable. We reviewed that bilateral mastectomies or unilateral mastectomy with or without reconstruction canalso be chosen depending on patient preference or can be recommended pending the above testing results. We discussed that reconstruction is generally done in two stages with a temporary tissue associate director of nursing placed initially followed by a final reconstruction [...] to use vaginal estrogen creamas prescribed by gun synchronizer for vaginal dryness/ dyspareunia. PLAN: Genetic counseling/ testing Medical oncology consult - scheduled for Bilateral breast MRI Pending above, tentative left lumpectomy and sln biopsy after neoadjuvant chemo. * Em Mendoza LPN - 04/24/2024 8:03 AM EST PRE - ADMINISTRATION DOCUMENTATION Are you experiencing any cold symptoms or fever? No Have you had Guillain-[place] Syndrome (an illness that causes paralysis) within [...] this patient qualify for immunization through the [facility] program because he/she (check only one): Yes-is [...] Care as noted on the problem list. [facility]er is a way you can talk to [...] EST START ON PATHWAY REGIMEN - Breast CUP467: Pembrolizumab 200 mg D1 + Paclitaxel 80 [...] Breast Cancer. N Engl J Med. 2020;382(9):810-821. doi:10.1056/[id number]. URL: https://pubmed.ncbi.nlm.nih.gov/09906090/ Patient Characteristics: Preoperative or Nonsurgical Candidate, M0 (Clinical Staging), Up to cT4c, Any N, M0, Neoadjuvant Therapy followed by Surgery, Invasive Disease, Chemotherapy, HER2 Negative, ER Negative, [place] Therapy Indicated and Candidate for Checkpoint Inhibitor Therapeutic Status: Preoperative or Nonsurgical Candidate, M0 (Clinical Staging) AJCC M Category: cM0 AJCC Grade: G3 ER Status: Negative (-) AJCC 8 Stage Grouping: IB HER2 Status: Negative (-) AJCC T Category: cT1c AJCC N Category: cN0 MD Status: Negative (-) Breast Surgical Plan: Neoadjuvant [...] Invasive Disease, Chemotherapy, HER2 Negative, ER Negative, [place] Therapy Indicated and Candidate for Checkpoint Inhibitor Patient Characteristics: Preoperative or Nonsurgical Candidate, M0 (Clinical Staging), Up to cT4c, Any N, M0, Neoadjuvant Therapy followed by Surgery, Invasive Disease, Chemotherapy, HER2 Negative, ER Negative, [place] Therapy Indicated and Candidate for Checkpoint Inhibitor Therapeutic Status: Preoperative or Nonsurgical Candidate, M0 (Clinical Staging) AJCC M Category: cM0 AJCC Grade: G3 ER Status: Negative (-) AJCC 8 Stage Grouping: IB HER2 Status: Negative (-) AJCC T Category: cT1c AJCC N Category: cN0 MD Status: Negative (-) Breast Surgical Plan: Neoadjuvant Therapy followed by Surgery Intent of Therapy: Curative Intent, Discussed with PatientTreatment Details: START ON PATHWAY REGIMEN [id number]: Pembrolizumab 200 mg D1 + Paclitaxel 80 [...] Breast Cancer. N Engl J Med. 2020;382(9):810-821. doi:10.1056/[id number]. URL: https://pubmed.ncbi.nlm.nih.gov/58904441/ documented in this encounter Plan of Treatment Upcoming Encounters Date Type Department Care Team (Latest Contact Info) Description 04/30/2024 7:45 AM EST Appointment Cardiac Studies, [address] [address] 05/01/2024 7:00 AM EST Appointment Radiology, [address] [place] [address] 05/02/2024 11:25 AM EST Hospital Encounter OR [facility], Operating Room, [facility] - 4th Floor [address] [place], [place] [address] [address] Iam Curry MD [address] [place] [address] [place] [address] 05/02/2024 11:25 AM EST - 05/02/2024 12:20 PM EST Surgery OR [facility], Operating Room, [facility] - 4th Floor [address] [place], [place] [address] [address] Iam Curry MD [address] [place] [address] [place] [address] INSERT TUNNELED CENTRAL VENOUS ACCESS WITH SUBQ PORT 05/07/2024 8:00 AM EST Imaging Radiology [facility] 1st Floor, [place] [address] [place] [address] 05/08/2024 9:00 AM EST Office Visit Hematology/Oncolog y Rafael Amato [place] [address] [place] [address] Sydnee Ng MD [address] [place] [address] 05/08/2024 9:30 AM EST Pt Ed by Nurse [facility] [place] [address] [place] [address] Nurse [place] Hem Onc [address] [place] [address] 05/12/2024 10:00 AM EST Office Visit Family [facility] [address] [place] [address] Malinda Owens CRNP [address] [place] [address] 08/06/2024 9:00 AM EST Telemedicine Genetics HemOnc, [facility] [address] [place] [address] Estephania Reyes, [place] [address] [place] [address] Scheduled Orders Name Type Priority Associated Diagnoses [...] 04/24/2024 (Approximate), Expires: 05/24/2026 IR VENOUS ACCESS [facility] Medical Imaging STAT Malignant neoplasm of upper-outer [...] this encounter Medical Devices Implanted Type Area Water Taxi Operator Device Identifier Shelf Expiration Date Model / Serial / Lot Stent Kev 4fr 11cm - [id number] Implanted:Qty: 1 on 02/08/2024 by Jeffrey Kerr MD at OR [facility] [employer] [facility] [id number] 08/16/2028 [id number] / / [id number] documented as of this encounter Visit Diagnoses [...] (HCC) documented in this encounter Care Teams Operations Developer Relationship Specialty Start Date End Date Malinda Owens CRNP [address] [facility] [place] [address] PCP - General Nurse Practitioner 09/20/23 documented as of this encounter
--- OUTSIDE RECORDS SUMMARY | 2024-09-05 14:45 | External Medical Summary | Summary of Care ---
Author Name Unknown Organization [facility] Address [address] [place] [address] Phone [phone] Care Team Providers Care Curriculum Development Specialist Name Role Phone OwensMalinda AD Primary Care Provider [phone] Reason for Visit * Reason Onset Date Comments Advice 04/29/2024 Dr. Gurrola Encounter Details Date Type Department Care Team (Late st Contact Info) Description 04/29/2024 Telephone Hematology/Oncology [facility] [place] [address] [facility] [place] [address] Services, Scheduling [address] [place] [address] Advice (Dr. Gurrola) Allergies No known active allergiesdocumented as of [...] and class I obesity. Per review of HEALTH CENTER ASSISTANT documentation of 09/25/23, blood glucose values [...] Recommend nutrition consult with RDN (Registered Dietitian Fish Seiner). Lifestyle changes are also indicated including optimizing [...] and folate levels and referral to a writer producer. If hemoglobin levels are below 8 g/dl, we recommend Maternal Medicine ultrasound for growth every 4 weeks after 24 weeks. Consider a blood transfusion if hemoglobin levels fall below 6 g/dL. ([employer] Cd Mixer Practice Bulletin Number 95, December,). Consider Venofer [...] money to get more. 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 Per office note she was at the time. I called to confirm with patient and she stated that she is no longer and has stopped pumping for 3-4 days. Reviewed her labs, LFT's remain elevated at this time, however, kidney function is normal. Pt denies any symptoms of bleeding at this time and denies any bruising left from her biopsy. I did inform her that some of the ache may be from swelling around the tumor from the biopsy she had completed that is still healing as she states its 5-6/10 intermittently, only for a few minutes. Advised her she can take Ibuprofen to help with pain but should use this sparingly, no more than twice a day as needed. She may also use warm compresses to help with pain management. She should call our office back if she notices any signs or symptoms of bleeding or if her pain becomes worse or more severe. * Telephone Encounter - Ami Kidd OSA - 04/29/2024 3:08 PM EST Patient has a dull aching pain near her tumor and wants to know what the doctor recommends. documented in this encounter Plan of Treatment Upcoming Encounters Date Type Department Care Team (Latest Contact Info) Description 04/30/2024 7:45 AM EST Appointment Cardiac Studies, [address] [address] 05/01/2024 7:00 AM EST Appointment Radiology, [address] [address] 05/02/2024 11:25 AM EST Hospital Encounter OR [facility], Operating Room, [facility] - 4th Floor [address] [address] Iam Curry MD [address] [place] [address] [place] [address] 05/02/2024 11:25 AM EST - 05/02/2024 12:20 PM EST Surgery OR [facility], Operating Room, [facility] - 4th Floor [address] [place] [phone] Iam Curry MD [address] [facility] [address] INSERT TUNNELED CENTRAL VENOUS ACCESS WITH SUBQ PORT 05/07/2024 8:00 AM EST Imaging Radiology [address] [place] [address] 05/08/2024 9:00 AM EST Office Visit Hematology/Oncolog y [facility] [address] [place] [phone] Em Ng MD [address] [facility] [address] 05/08/2024 9:30 AM EST Pt Ed by Nurse Hematology/Oncolog y [facility] [address] [place] [phone] [place] Nurse Hem Onc [address] [place] [address] 05/12/2024 10:00 AM EST Office Visit Family Practice [facility] [address] [place] [address] Malinda Owens CRNP [address] [place] [address] 08/06/2024 9:00 AM EST Telemedicine Genetics HemOnc, [facility] [address] [place] [address] Estephania Reyes, MS [facility] [place] [address] Scheduled Procedures Name Priority Associated [...] this encounter Medical Devices Implanted Type Area Garbage Truck Driver Device Identifier Shelf Expiration Date Model / Serial / Lot Stent Kev 4fr 11cm - [id number] Implanted:Qty: 1 on 02/08/2024 by Jeffrey Kerr MD at OR [facility] [employer] [facility] [id number] 08/16/2028 [id number] / / [id number] documented as of this encounter Care Teams Curriculum Development Specialist Relationship Specialty Start Date End Date Malinda Owens CRNP [address] [place] [address] PCP - General Nurse Practitioner 09/20/23 documented as of this encounter
--- OUTSIDE RECORDS SUMMARY | 2024-09-05 14:45 | External Medical Summary | Summary of Care ---
Author Name Unknown Organization [facility] Address [address] [place] [facility] [place] [address] Phone [phone] Care Team Providers Care Truck Driver Heavy Name Role Phone Malinda Owens Primary Care Provider [phone] Reason for Visit * Reason Onset Date Comments Precert Future 04/30/2024 Keytruda/ carbo/ taxol--> keytruda/ AC Encounter Details Date Type Department Care Team (Late st Contact Info) Description 04/30/2024 Telephone Hematology/Oncology Treatment, [place] [address] [place] [address] Mandeep Luna MD [address] [place] [address] Precert Future (Keytruda/ carbo/ taxol--> ... Allergies [...] and class I obesity. Per review of MACHINIST CLASS B documentation of 09/25/23, blood glucose values have [...] Recommend nutrition consult with RDN (Registered Dietitian Commutator Assembler). Lifestyle changes are also indicated including [...] and folate levels and referral to a electronic repair troubleshooter. If hemoglobin levels are below 8 g/dl, we recommend Maternal Medicine ultrasound for growth every 4 weeks after 24 weeks. Consider a blood transfusion if hemoglobin levels fall below 6 g/dL. ([employer] and Process Checker Practice Bulletin Number 95, December,). Consider [...] money to get more. 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 Not on [...] Care Team (Latest Contact Info) Description 05/01/2024 7:00 AM EST Appointment Radiology, [facility] [address] [place] [place] [address] 05/02/2024 11:25 AM EST Hospital Encounter OR [facility], Operating Room, [facility] - 4th Floor [address] [address] Iam Curry MD [address] [place] [address] 05/02/2024 11:25 AM EST - 05/02/2024 12:20 PM EST Surgery OR [facility], Operating Room, [facility] - 4th Floor [address] [place] [address] Iam Curry MD [address] [place] [address] INSERT TUNNELED CENTRAL VENOUS ACCESS WITH SUBQ PORT 05/07/2024 8:00 AM EST Imaging Radiology [facility] 1st [facility] [address] [place] [address] 05/08/2024 9:00 AM EST Office Visit Hematology/Oncolog y [facility] [address] [place] [phone] Em Ng MD [address] [place] [address] [place] [phone] 05/08/2024 9:30 AM EST Pt Ed by Nurse Hematology/Oncolog y [facility] [address] [place] [phone] [place], Nurse Hem Onc [facility] [address] [place] [address] 05/12/2024 10:00 AM EST Office Visit Family [facility] [address] [place] [address] Malinda Owens CRNP [address] [place] [address] 08/06/2024 9:00 AM EST Telemedicine Genetics HemOnc, [facility] [address] [place] [address] Estephania Reyes, [place] [address] [place] [address] Scheduled Orders Name Type Priority [...] for 52 Occurrences starting 04/30/2024 until 04/30/2025 COMPREHENSIVE METABOLIC PANEL Lab STAT Malignant neoplasm [...] Weeks for 17 Occurrences starting 04/30/2024 until 04/30/2025 Scheduled Procedures Name Priority Associated Diagnoses Date/Ti [...] this encounter Medical Devices Implanted Type Area Washcoat Wiper Device Identifier Shelf Expiration Date Model / Serial / Lot Stent Kev 4fr 11cm - [id number] Implanted:Qty: 1 on 02/08/2024 by Jeffrey Kerr MD at OR [facility] [employer] [facility] [id number] 08/16/2028 [id number] / / [id number] documented as of this encounter Visit Diagnoses [...] (HCC) documented in this encounter Care Teams Truck Driver Heavy Relationship Specialty Start Date End Date Malinda Owens CRNP [address] [facility] [place] [address] PCP - General Nurse Practitioner 09/20/23 documented as of this encounter
--- OUTSIDE RECORDS SUMMARY | 2024-09-05 14:45 | External Medical Summary | Summary of Care ---
Author Name Unknown Organization [facility] Address [address] [place] [address] Phone [phone] Care Team Providers Care Rehabilitation Case Coordinator Name Role Phone Malinda Owens Primary Care Provider Reason for Visit * Reason Onset Date Comments Appointment 04/30/2024 Encounter Details Date Type Department Care Team (Late st Contact Info) Description 04/30/2024 Telephone [address] [place] [address] Yuni Arguelles, RT (M) Appointment Allergies No known active allergiesdocumented as [...] class I obesity. Per review of WOOD EXPERIMENTAL MECHANIC documentation of 09/25/23, blood glucose values [...] Recommend nutrition consult with RDN (Registered Dietitian Wardrobe Coordinator). Lifestyle changes are also indicated including [...] and folate levels and referral to a welder setter electron beam machine. If hemoglobin levels are below 8 g/dl, we recommend Maternal Medicine ultrasound for growth every 4 weeks after 24 weeks. Consider a blood transfusion if hemoglobin levels fall below 6 g/dL. ([employer]st[employer] and Seo Team Lead Practice Bulletin Number 95, December,). Consider [...] money to get more. 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 No Have you ever worked with metal or have you ever gotten metal in your eyes? No Have you had a colonoscopy in the last 30 days? No On dialysis? No Do you have any dermals or body piercing's? No or ? No Do you wear an insulin pump or diabetic monitor? No Recent Covid Vaccine? No RT Paresh (M) documented in this encounter Plan of Treatment Upcoming Encounters Date Type Department Care Team (Latest Contact Info) Description 05/01/2024 7:00 AM EST Appointment Radiology, [address] [place] [address] 05/02/2024 11:25 AM EST Hospital Encounter OR [facility], Operating Room, [facility] [address] [place] [address] [place] [phone] Iam Curry MD [address] [place] [address] [place] [address] 05/02/2024 11:25 AM EST - 05/02/2024 12:20 PM EST Surgery OR [facility], Operating Room, [facility] [address] [place] [address] [place] [phone] Iam Curry MD [address] [place] [address] [place] [address] INSERT TUNNELED CENTRAL VENOUS ACCESS WITH SUBQ PORT 05/07/2024 8:00 AM EST Imaging Radiology [facility] [address] [facility] [place] [address] 05/08/2024 9:00 AM EST Office Visit Hematology/Oncolog y [facility] [facility] [place] [address] Em Ng MD [address] [place] [phone] 05/08/2024 9:30 AM EST Pt Ed by Nurse Hematology/Oncolog y [facility] [place] [address] [place], [place] [phone] Nurse [place] Hem Onc Scene [address] [place] [address] 05/12/2024 10:00 AM EST Office Visit [facility] [address] [place] [address] Malinda Owens CRNP [address] [place] [address] 08/06/2024 9:00 AM EST Telemedicine Genetics HemOnc, C [address] [place] [address] Estephania Reyes, [place] [address] [place] [address] Scheduled Procedures Name Priority Associated [...] this encounter Medical Devices Implanted Type Area Log Grader Device Identifier Shelf Expiration Date Model / Serial / Lot Stent Kev 4fr 11cm - [id number] Implanted:Qty: 1 on 02/08/2024 by Jeffrey Kerr [facility] [id number] 08/16/2028 [id number] / / [id number] documented as of this encounter Care Teams Rehabilitation Case Coordinator Relationship Specialty Start Date End Date Malinda Owens CRNP [facility] [place] [address] PCP - General Nurse Practitioner 09/20/23 documented as of this encounter
--- OUTSIDE RECORDS SUMMARY | 2024-09-05 14:45 | External Medical Summary ---
Author Name Unknown Address Unknown Organization K1F:LABORATORY [facility] - [address] [place] [address] Laboratory Report Ordering Provider Test Date Status LISE JAVIER 05/01/2024 08:42:52 Final Observation Date Value Abnormality Reference (Units ) Status WBC, Total 05/01/2024 08:42:52 4.85 4.00-10.80 (K/uL) Final RBC 05/01/2024 08:42:52 3.86 3.85-5.15 (M/uL) Final Hemoglobin 05/01/2024 08:42:52 12.3 12.0-15.3 (g/dL) Final HCT 05/01/2024 08:42:52 37.6 36.0-45.2 (%) Final MCV 05/01/2024 08:42:52 97.4 81.5-97.5 (fL) Final MCH 05/01/2024 08:42:52 31.9 27.0-34.0 (pg) Final MCHC 05/01/2024 08:42:52 32.7 32.0-36.0 (g/dL) Final RDW 05/01/2024 08:42:52 12.0 11.5-15.5 (%) Final Platelets 05/01/2024 08:42:52 233 140-400 (K/uL) Final MPV 05/01/2024 08:42:52 9.6 6.6-11.1 (fL) Final Nucleated erythrocytes/100 leukocytes [Ratio] in Blood by Automated count 05/01/2024 08:42:52 0 <=0 (/100 WBCs) Final Performing Location [facility] [place] [address]
--- OUTSIDE RECORDS SUMMARY | 2024-09-05 14:45 | External Medical Summary | Summary of Care ---
Author Name Unknown Organization [facility] Address [address] [place] [place] [address] Phone [phone] Care Team Providers Care Estate Agent Name Role Phone Ridge Owensmargaret AD Primary Care Provider [phone] Reason for Visit * Reason Onset Date Comments Order Request 04/25/2024 Encounter Details Date Type Department Care Team (Late st Contact Info) Description 04/25/2024 Telephone Hematology/Oncology Treatment, [place] [address] [place] [address] Em Ng MD [address] [place] [phone] Order Request Allergies No known active allergiesdocumented as [...] complete. Enrolled in Current Health. Plans to black pickler meter from pharmacy [...] and class I obesity. Per review of PELLETIZER OPERATOR documentation of 09/25/23, blood glucose values [...] Recommend nutrition consult with RDN (Registered Dietitian Automotive Metalsmith). Lifestyle changes are also indicated including optimizing [...] and folate levels and referral to a grades 7 8 tutor. If hemoglobin levels are below 8 g/dl, we recommend Maternal Medicine ultrasound for growth every 4 weeks after 24 weeks. Consider a blood transfusion if hemoglobin levels fall below 6 g/dL. ([employer] Obstetricians and Eyeglass Lens Generator Practice Bulletin Number 95, December,). Consider Venofer [...] money to get more. 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 Advised patient that once we have insurance authorization, will be able to schedule treatment. Reviewed that at this time, appts 05/[address] Gurrola and nurse education, but once we have plan in place can adjust appts/ schedule treatment. She verbalized understanding. * Telephone Encounter - Yuli Gallagher RN - 04/28/2024 7:41 AM EST Patient sent MyG in other encounter: "Dr.P Fermin let me know there was a chemo class. Could I get signed up for that before my first chemo on May 08?" Dr Gurrola: please place chemo order- if we have order/ auth, can potentially schedule first chemo 05/08 as patient is requesting. Thanks! * Telephone Encounter - Yuli Gallagher RN - 04/25/2024 3:13 PM EST Patient seen for new patient appt yesterday, consented for chemotherapy, mediport being placed 05/02/24, nurse education scheduled 05/08/24. Chemotherapy order has not been placed. Dr Gurrola: please place chemotherapy order so that precert can be initiated and we can work on getting treatment started. Thanks! documented in this encounter Plan of Treatment Upcoming Encounters Date Type Department Care Team (Latest Contact Info) Description 05/01/2024 7:00 AM EST Appointment Radiology, [address] [place] [address] 05/02/2024 11:25 AM EST Hospital Encounter OR [facility], Operating Room, [facility] - 4th Floor [address] [place] [address] [place] [phone] aIm Curry MD [address] [place] [address] 05/02/2024 11:25 AM EST - 05/02/2024 12:20 PM EST Surgery OR [facility], Operating Room, [facility] - 4th Floor [address] [place] [phone] Iam Curry MD [address] [place] [address] INSERT TUNNELED CENTRAL VENOUS ACCESS WITH SUBQ PORT 05/07/2024 8:00 AM EST Imaging Radiology [facility] 1st [facility] 132 [facility] [place] [address] 05/08/2024 9:00 AM EST Office Visit Hematology/Oncolog y [facility] [address] [place] [phone] Em Ng MD [address] [place] [phone] 05/08/2024 9:30 AM EST Pt Ed by Nurse Hematology/Oncolog y [facility] [place] [address] [place] [phone] [place], Nurse Hem Onc Scenery [address] [place] [address] 05/12/2024 10:00 AM EST Office Visit Family Practice [facility] 132 [facility] [place] [address] Malinda Owens CRNP 132 [facility] [place] [address] 08/06/2024 9:00 AM EST Telemedicine Genetics HemOnc, [facility] [address] [place], [place] [id number] Estephania Reyes, [place] [address] [place] [address] Scheduled Procedures Name Priority Associated Diagnoses Date/Ti [...] encounter Medical Devices Implanted Type Area Sales Representative Wire Rope Device Identifier Shelf Expiration Date Model / Serial / Lot Stent Kev 4fr 11cm - [id number] Implanted:Qty: 1 on 02/08/2024 by Jeffrey Kerr MD at OR [facility] [employer] Derivatives Tr[employer] [facility] [id number] 08/16/2028 [id number] / / [id number] documented as of this encounter Care Teams Estate Agent Relationship Specialty Start Date End Date Malinda Owens CRNP [address] [place] [address] PCP - General Nurse Practitioner 09/20/23 documented as of this encounter
--- OUTSIDE RECORDS SUMMARY | 2024-09-05 14:45 | External Medical Summary ---
Author Name Unknown Address Unknown Organization K1F:LABORATORY [facility] - [address] [facility]. [place] [address] Laboratory Report Ordering Provider Test Date Status IBETH RANDHAWA 05/01/2024 08:42:52 Final Observation Date Value Abnormality Reference (Units ) Status BUN 05/01/2024 08:42:52 17 6-20 (mg/dL) Final Creatinine 05/01/2024 08:42:52 0.9 0.5-1.0 (mg/dL) Final Glomerular filtration rate/1.73 sq M.predicted [Volume Rate/Area] in Serum, Plasma or Blood by Creatinine-based formula (CKD-EPI) 05/01/2024 08:42:52 >90 >=60 (mL/min) Final eGFR is calculated based on the CKD-EPI 2020 equation. Sodium 05/01/2024 08:42:52 138 135-146 (m mol/L) Final Potassium 05/01/2024 08:42:52 4.7 3.5-5.1 (m mol/L) Final Cl 05/01/2024 08:42:52 102 98-107 (mm ol/L) Final CO2 05/01/2024 08:42:52 26 22-32 (mmo l/L) Final Anion gap 05/01/2024 08:42:52 10 7-15 (mmol /L) Final Glucose 05/01/2024 08:42:52 81 70-120 (mg /dL) Final Albumin 05/01/2024 08:42:52 4.5 3.8-5.0 (g /dL) Final AST (Aspartate aminotransferase) 05/01/2024 08:42:52 15 10-35 (U/L) Final Alk Phos 05/01/2024 08:42:52 104 35-130 (U/ L) Final Bilirubin, Total 05/01/2024 08:42:52 0.4 <=1 .2 (mg/dL) Final Calcium 05/01/2024 08:42:52 9.5 8.4-10.2 ( mg/dL) Final Protein 05/01/2024 08:42:52 7.3 6.0-8.3 (g /dL) Final ALT (Alanine aminotransferase) 05/01/2024 08:42:52 19 10-35 (U/L) Final Performing Location LABORATORY [facility] - [facility] [place] [address]
--- OUTSIDE RECORDS SUMMARY | 2024-09-05 14:45 | External Medical Summary ---
Author Name Unknown Address Unknown Organization K1F:LABORATORY [facility] - [address] [place] [address] Laboratory Report Ordering Provider Test Date Status IBETH RANDHAWA 05/01/2024 08:42:52 Final Warfarin Therapy
INR: 2 .0-3.0 conventional anticoagulation
INR: 2.5- 3.5 high intensity anticoagulation Observation Date Value Abnormality Reference (Units ) Status PT 05/01/2024 08:42:52 12.9 11.6-15.2 (seconds) Final INR 05/01/2024 08:42:52 1.0 0.8-1.2 Final Performing Location LABORATORY [facility] - [address] [place] [address]
--- OUTSIDE RECORDS SUMMARY | 2024-09-05 14:45 | External Medical Summary ---
Author Name Unknown Address Unknown Organization : Laboratory Report Ordering Provider Test Date Status IBETH RANDHAWA 05/01/2024 08:42:52 Final Observation Date Value Abnormality Reference (Units ) Status Cancer Ag 27-29 05/01/2024 08:42:52 19 <38 (U/mL) Final The CA 27.29 result may be i ncreased on average
5-10%, relative to results previously obtained
with this method due to a recent calibrator
adjustment made in March 2024 by the reagent
electric motor rebuilder. In the low range for this assay
(<38 U/mL), this increase may be greater than
20%. Serially monitored results should always
be used in conjunction with other diagnostic
procedures, including clinical evaluation.
This test was performed using the Siemens chemilumi-
nescent method. Values obtained from different assay
methods cannot be used interchangeably. CA27.29
levels, regardless of value, should not be interpreted
as absolute evidence of the presence or absence of
disease.

Test Performed at:
[facility]
[address] [place] [address]
Laron Dawn M.D., Ph.D.,Director of Laboratories Performing Location
--- OUTSIDE RECORDS SUMMARY | 2024-09-05 14:45 | External Medical Summary ---
Author Name Unknown Address Unknown Organization K01:LABORATORY C - [address] [place] [address] [place] [address] Laboratory Report Ordering Provider Test Date Status LISE JAVIER 05/01/2024 08:42:52 Final Observation Date Value Abnormality Reference (Units ) Status Hep B surface Ag 05/01/2024 08:42:52 Negative Neg ative Final Performing Location LABORATORY [facility] - [address] [place] [address]
--- OUTSIDE RECORDS SUMMARY | 2024-09-05 14:46 | External Medical Summary | Summary of Care ---
Author Name Unknown Organization [facility] Address [address] [facility] [address] Phone [phone] Care Team Providers Care Blue Leather Sorter Name Role Phone Ridge Owensmargaret AD Primary Care Provider [phone] Reason for Visit * Reason Onset Date Comments Order Request 04/25/2024 Encounter Details Date Type Department Care Team (Late st Contact Info) Description 04/25/2024 Telephone Hematology/Oncology Treatment, [place] [address] [place] [address] Em Ng MD [address] [place] [phone] Order Request Allergies No known active [...] class I obesity. Per review of AIR BRUSH OPERATOR documentation of 09/25/23, blood glucose values [...] Recommend nutrition consult with RDN (Registered Dietitian Product Analyst). Lifestyle changes are also indicated including [...] and folate levels and referral to a plumbing inspector. If hemoglobin levels are below 8 g/dl, we recommend Maternal Medicine ultrasound for growth every 4 weeks after 24 weeks. Consider a blood transfusion if hemoglobin levels fall below 6 g/dL. ([employer] Obstetricians and Filter Changing Technician Practice Bulletin Number 95, December,). Consider [...] money to get more. 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 on file Not [...] 04/30/2024 7:45 AM EST Appointment Cardiac Studies, [address] [place] [address] 05/01/2024 7:00 AM EST Appointment Radiology, [address] [place] [address] 05/02/2024 11:25 AM EST Hospital Encounter OR [facility], Operating Room, [facility] - 4th Floor [address] [place], [place] [address] [phone] Iam Curry MD [address] [place] [address] [place] [address] 05/02/2024 11:25 AM EST - 05/02/2024 12:20 PM EST Surgery OR [facility], Operating Room, [facility] - 4th Floor [address] [place], [place] [address] [phone] Iam Curry MD [facility] [address] INSERT TUNNELED CENTRAL VENOUS ACCESS WITH SUBQ PORT 05/07/2024 8:00 AM EST Imaging Radiology [address] [place] [address] 05/08/2024 9:00 AM EST Office Visit [facility]ology[facility]olog [facility] [address] [place] [phone] Em Ng MD 400 [facility] [place] [phone] 05/08/2024 9:30 AM EST Pt Ed by Nurse Hematology[facility]Oncolog [facility] [address] [place] [phone] [place], Nurse Hem Onc Scenery [address] [place] [address] 05/12/2024 10:00 AM EST Office Visit Family Practice [facility] 132 [place] [address] Malinda Owens CRNP [address] [place] [address] 08/06/2024 9:00 AM EST Telemedicine Genetics HemOnc, [facility] [address] [place] [address] Estephania Reyes, [place] [address] [place] [address] Scheduled Procedures Name Priority Associated [...] this encounter Medical Devices Implanted Type Area Metal Gauge Maker Device Identifier Shelf Expiration Date Model / Serial / Lot Stent Kev 4fr 11cm - [id number] Implanted:Qty: 1 on 02/08/2024 by Jeffrey Kerr MD at OR [facility] [employer] [facility] [id number] 08/16/2028 [id number] / / [id number] documented as of this encounter Care Teams Blue Leather Sorter Relationship Specialty Start Date End Date Malinda Owens CRNP [address] [place] [address] PCP - General Nurse Practitioner 09/20/23 documented as of this encounter
--- OUTSIDE RECORDS SUMMARY | 2024-09-05 14:46 | External Medical Summary | Summary of Care ---
Author Name Unknown Organization [facility] Address [address] [place] [address] Phone [phone] Care Team Providers Care Heat Treat Supervisor Name Role Phone Malinda Owens Primary Care Provider [phone] Reason for Referral * Evaluate & Treat - Unlimited Visits (Within 3 days (urgent)) - Pending Review Specialty Diagnoses / Procedures Referred By Bennie gilliland Referred To Contact Hematology/Oncology / Hematology Oncology Diagnoses Malignant neoplasm of left female breast, unspecified estrogen receptor status, unspecified site of breast (HCC) Triple negative breast cancer (HCC) Kina Capps PA-C [address] [place] [address] Referral ID Status Reason Start Date Expiration Date Visits Requested Visits Authorized [id number] Pending Review Specialty Services Required 04/18/[phone] Question Answer Referral Priority Within 3 days (urgent) Where should this appointment be scheduled? ising Reason for Referral Malignant Oncology (Solid Organ Cancer) Comments Invasive breast cancer, grade 3. Triple negative. ER/ID/HER-2 negative. * Evaluate & Treat - Unlimited Visits (Within 3 days (urgent)) - Pending Review Specialty Diagnoses / Procedures Referred By Bennie t Referred To Contact General Surgery - Breast Surgery / Surgical Oncology Diagnoses Malignant neoplasm of left female breast, unspecified estrogen receptor status, unspecified site of breast (HCC) Triple negative breast cancer (HCC) Kina Capps PA-C [address] [place] [address] Referral ID Status Reason Start Date Expiration Date Visits Requested Visits Authorized [id number] Pending Review Specialty Services Required 04/18/[phone] Question Answer Referral Priority Within 3 days (urgent) Where should this appointment be scheduled? [facility] Is there suspicion that patient has Breast Cancer? Yes Comments Patient with invasive mammogram of no special type, grade 3. Tumor marker pending at time of referral. Reason for Visit * Reason Onset Date Comments Breast Cancer 04/18/2024 Encounter Details Date Type Department Care Team (Late st Contact Info) Description 04/18/2024 Telephone Gynecology/Obstetrics Shanna Topete [address] [place] [address] Kina Capps PA-C [address] [place] [phone] Breast Cancer Allergies No known active allergiesdocumented as of this encounter (statuses as of 04/18/2024) Medications Medication Sig Dispensed Refills Start Date End Date Status 19 29-1 MG Oral Tablet Chewable Take by mouth. Active Ibuprofen 600 MG Oral Tablet (Motrin) Take 1 Tablet by mouth every 6 hours as needed (pain). 11/02/2023 Active documented as of this encounter (statuses as of 04/18/2024) Active Problems Problem Noted Date Diagnosed Date [...] 10/31/23: RPM reviewed; Stable. Continue diet control. Last Assessment & Plan: She presents for [...] Iron deficiency anemia 08/21/2023 Antepartum anemia complicating 02/27/2 024 Overview: Receiving IV iron infusions Anemia [...] and folate levels and referral to a burglar alarm operator. If hemoglobin levels are below 8 g/dl, we recommend Maternal Medicine ultrasound for growth every 4 weeks after 24 weeks. Consider a blood transfusion if hemoglobin levels fall below 6 g/dL. ([employer] and Account Manager Practice Bulletin Number 95, December,). Consider [...] as of this encounter (statuses as of 04/18/2024) Resolved Problems Problem Noted Date Diagnosed Date Resolved Date Abnormal glucose tolerance i n mother complicating 04/19/2023 08/31/2023 Overview: Failed early glucola. 3hr GTT ordered documented as of this encounter (statuses as of 04/18/2024) Immunizations Name Administration Dates Next Due DTP [...] above, IM , (FluLaval or Fluzone) 05/17/2023,08/21/2019 TDAP (age 10 and older)(Boostrix) 08/13/2023,11/2019 TDAP, [...] money to get more. Never true 03/26/2024 [place] Depression Scale Answer Date Recorded [place] Depression Scale Total 6 12/11/2023 The thought [...] ages 0-17 years) Not on file 03/26/2024 Sex and Gender Information Value Date Recorded Sex Assigned at Female 01/19/2023 1:52 PM EDT Gender Identity Female 01/19/2023 1:52 PM EDT Sexual Orientation Straight 01/19/2023 1: 52 PM EDT Job Start Date Occupation Industry Not on file Not on file Not on file documented as of this encounter Miscellaneous Notes * Telephone Encounter - Kina Capps PA-C - 04/18/2024 2:03 PM EDT Called patient back to kotlik back with her regarding earlier phone call today. Has appointment scheduled with Gen Surgery 04/22 and Oncology 04/24. She asked reason for need for both visit. I did try to explain to her surgical aspect vs Oncology aspect with chemotherapy and othertreatment beyond surgery that Oncology will help manage. She voiced understanding. She did then ask if she would need to have her entire left breast removed. I advised I could not say with 100% certainty. Advised she would need to discuss with breast surgery when she meets with them. In some cases removal of entire breast is not necessary, but she would really need to discuss with surgeon. She voiced understanding. She asked if okay to breastfeed and pump given this diagnosis. I advised at present okay to continue. We discussed this may change with changes in treatment plan such as starting chemotherapy. She understands. She did state that she was made away through mother that her maternal grandmother's sister had breast cancer. Mom also told her dad's side has breast cancer. Not sure who or ages of those diagnosed. All questions answered to best of my abilities for her. Discussed with her that she is welcome to reach back out to our office if she has additional questions. Kina Capps PA-C * Telephone Encounter - Kina Capps PA-C - 04/18/2024 10:52 AM EDT Called and spoke with patient. Reviewed invasive breast cancer, grade 3. Triple negative. Discussed need for additional excision based on path report. Discussed Gen Surg and Oncology referral. Explained that they should be reaching out to her to schedule her. She asked if this is life threating. I did tell her that there is real concern given this cancer diagnosis that it could eventually be life threating and that this need to be address as quickly as possible. I told her will plan to call her back this afternoon to touch base with her and answer and questions she may have. Patient agreeable to this plan, and stated understanding of all. * Telephone Encounter - Kina Capps PA-C - 04/18/2024 10:34 AM EDT Phone call to patient. LMOM for patient to call back as no answer. Prefer to speak to patient directly if able. Her breast biopsy did return invasive breast cancer, grade 3. Tumor marker pending at time of referral. Breast surgery referral placed. Additional excisional specimens required per path report. Would like to try to get her set up with [facility]. Spoke with Zena to try to schedule. However, must be reviewed by Gen Surg department and scheduleddirectly through them. Tumor markers back upon finishing this note. Triple negative ER/ID/HER-2 negative. Oncology referral also placed. documented in this encounter Plan of Treatment Upcoming Encounters Date Type Department Care Team (Late st Contact Info) Description 04/22/2024 11:15 AM EST Office Visit General Surgery, [facility] [address] [place] [address] Danielle Sinha MD [address] [place] [address] 04/24/2024 8:00 AM EST Office Visit Hematology/Oncology [facility] [address] [facility] [address] [place] [address] Em Ng MD [address] [place], [place] [address] [phone] 05/12/2024 10:00 AM EST Office Visit Family [facility] [address] [place] [address] Roman MalindaAD [address] [place] [address] Scheduled Referrals Name Type Priority Associated Diagnoses Orde r Schedule HIGH RISK BREAST CLINIC, BREAST SURGERY REFERRAL OP Referral Within 3 days (urgent) Malignant neoplasm of left female breast, unspecified estrogen receptor status, unspecified site of breast (HCC) Triple negative breast cancer (HCC) Ordered: 04/18/2024 HEMATOLOGY/ONCOLOGY REFERRAL OP Referral Within 3 days (urgent) Malignant neoplasm of left female breast, unspecified estrogen receptor status, unspecified site of breast (HCC) Triple negative breast cancer (HCC) Ordered: 04/18/2024 Health Maintenance Due Date Last Done Comments Depression Screening 2006 HPV (Gardasil) Vaccine (3 - 3-dose series) 02/05/2013 11/13/2012, 03/21/2012 COVID-19 Vaccine ( season) 2024 Influenza Vaccine (FLU shot) (#1) 2024 05/17/2023, 08/21/2019, 04/08/2012, Additional history exists HPV/Co-Test 2024 Cervical Cancer Screening 01/29/2026 Pap Smear 01/29/2026 01/29/2023, 11/17, 07/17/2018, Additional history exists DTap/Tdap Vaccines (9 - Td or Tdap) 08/13/2033 08/13/2023, 08/22/2019, 09/17/2008, Additional history exists Hepatitis B Vaccine Completed 02/17/1995, 1994, 1994 MENINGOCOCCAL (MENACTRA/MENVEO) Completed 11/13/2012, 02/02/2010 Pneumococcal Vaccine: Pediatrics (0 to 5 Years) and At-Risk Patients (6 to 64 Years) Aged Out No longer eligible based on patient's age to complete this topic documented as of this encounter Medical Devices Implanted Type Area Breakdown Man Device Identifier Shelf Expiration Date Model / Serial / Lot Stent Kev 4fr 11cm - [id number] Implanted:Qty: 1 on 02/08/2024 by Jeffrey Kerr MD at OR [facility] [employer] [facility] [id number] 08/16/2028 [id number] / / [id number] documented as of this encounter Visit Diagnoses Diagnosis Malignant neoplasm of left female breast, unspecified estrogen receptor status, unspecified site of breast (HCC)- Primary Triple negative breast cancer (HCC) documented in this encounter Care Teams Heat Treat Supervisor Relationship Specialty Start Date End Date Malinda Owens CRNP [address] [facility] [place] [address] PCP - General Nurse Practitioner 09/20/23 documented as of this encounter
--- OUTSIDE RECORDS SUMMARY | 2024-09-05 14:46 | External Medical Summary | Summary of Care ---
Author Name Unknown Organization [facility] Address [address] [place] [facility] [place] [address] Phone [phone] Care Team Providers Care Material Lister Name Role Phone Ridge Owensmargaret AD Primary Care Provider [phone] Reason for Visit * Reason Onset Date Comments Order Request 04/25/2024 Encounter Details Date Type Department Care Team (Late st Contact Info) Description 04/25/2024 Telephone Hematology/Oncology Treatment, [place] [address] [place] [address] Em Ng MD [address] [place] [phone] Order Request Allergies No known active [...] and class I obesity. Per review of WAFFLE MACHINE OPERATOR documentation of 09/25/23, blood glucose [...] Recommend nutrition consult with RDN (Registered Dietitian Roll Coating Machine Operator). Lifestyle changes are also indicated [...] and folate levels and referral to a machine puller and laster. If hemoglobin levels are below 8 g/dl, we recommend Maternal Medicine ultrasound for growth every 4 weeks after 24 weeks. Consider a blood transfusion if hemoglobin levels fall below 6 g/dL. ([employer] and Ehs Engineer Practice Bulletin Number 95, December,). Consider [...] money to get more. 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 Thanks! * Telephone Encounter - Yuli Gallagher [...] 04/30/2024 7:45 AM EST Appointment Cardiac Studies, [address] [place] [address] 05/01/2024 7:00 AM EST Appointment Radiology, [address] [place] [address] 05/02/2024 11:25 AM EST Hospital Encounter OR [facility], Operating Room, [facility] - 4th Floor [address] [place] [address] [place] [phone] Iam Curry MD [address] [place], [place] [address] [address] 05/02/2024 11:25 AM EST - 05/02/2024 12:20 PM EST Surgery OR [facility], Operating Room, [facility] - 4th Floor [address] [place] [address] [place] [phone] Iam Curry MD [address] [place], [place] [address] [id number] INSERT TUNNELED CENTRAL VENOUS ACCESS WITH SUBQ PORT 05/07/2024 8:00 AM EST Imaging Radiology [address] [facility] [place] [address] 05/08/2024 9:00 AM EST Office Visit Hematology/Oncolog y [facility] [address] [place] [phone] Em Ng MD [address] [facility] [place] [phone] 05/08/2024 9:30 AM EST Pt Ed by Nurse Hematology/Oncolog y [facility] [place] [address] [place] [phone] [place], Nurse Hem Onc Scenery [address] [place] [address] 05/12/2024 10:00 AM EST Office Visit Family Practice [facility] [address] [place] [address] Malinda Owens CRNP [address] [place] [address] 08/06/2024 9:00 AM EST Telemedicine Genetics HemOnc, [facility] [address] [place] [address] Estephania Reyes, MS [address] [place] [address] Scheduled Procedures Name Priority Associated Diagnoses Date/Ti [...] this encounter Medical Devices Implanted Type Area Deputy Chief Magistrate Device Identifier Shelf Expiration Date Model / Serial / Lot Stent Kev 4fr 11cm - [id number] Implanted:Qty: 1 on 02/08/2024 by [facility] [id number] 08/16/2028 [id number] / / [id number] documented as of this encounter Care Teams Material Lister Relationship Specialty Start Date End Date Malinda Owens CRNP [address] [place] [address] PCP - General Nurse Practitioner 09/20/23 documented as of this encounter
--- OUTSIDE RECORDS SUMMARY | 2024-09-05 14:46 | External Medical Summary | Summary of Care ---
Author Name Unknown Organization [facility] Address [address] [place] [address] Phone [phone] Care Team Providers Care Pyrometer Temperature Regulator Name Role Phone Malinda Owens Primary Care Provider Reason for Visit * Reason Onset Date Comments Order Request 04/09/2024 Encounter Details Date Type Department Care Team (Late st Contact Info) Description 04/09/2024 Telephone Radiology [facility] [address] [place] [address] Kina Capps PA-C [address] [place] [place] [address] Order Request Allergies No known active allergiesdocumented as of this encounter (statuses as of 04/10/2024) Medications Medication Sig Dispensed Refills Start Date End Date Status 19 29-1 MG Oral Tablet Chewable Take by mouth. Active Ibuprofen 600 MG Oral Tablet (Motrin) Take 1 Tablet by mouth every 6 hours as needed (pain). 11/02/2023 Active documented as of this encounter (statuses as of 04/10/2024) Active Problems Problem Noted Date Diagnosed Date [...] folate levels and referral to a assembler truck trailer. If hemoglobin levels are below 8 g/dl, we recommend Maternal Medicine ultrasound for growth every 4 weeks after 24 weeks. Consider a blood transfusion if hemoglobin levels fall below 6 g/dL. ([employer]stetricians and Documentation Supervisor Practice Bulletin Number 95, December,). Consider [...] as of this encounter (statuses as of 04/10/2024) Resolved Problems Problem Noted Date Diagnosed Date Resolved Date Abnormal glucose tolerance i n mother complicating 04/19/2023 08/31/2023 Overview: Failed early glucola. 3hr GTT ordered documented as of this encounter (statuses as of 04/10/2024) Immunizations Name Administration Dates Next Due DTP [...] money to get more. Never true 03/26/2024 [place] Depression Scale Answer Date Recorded [place] Depression Scale Total 6 12/11/2023 The thought [...] Telephone Encounter - Ronda Turner LPN - 04/10/2024 3:49 PM EDT Patient is aware, I called her back yesterday after I originally spoke to her about they biopsy which was when she requested the cream. Then called her back and told her to await bx results first peryour message which she was agreeable to. * Telephone Encounter - Kina Capps PA-C - 04/10/2024 3:30 PM EDT Just wanted to double check. Would like to wait on starting estrogen cream until ensure breast biopsy benign. Can you please make sure patient is aware of this and holding off on script for now? * Telephone Encounter - Ronda Turner LPN - 04/09/2024 2:48 PM EDT Closing encounter, estrogen cream addressed in separate encounter. * Telephone Encounter - Ronda Turner LPN - 04/09/2024 2:30 PM EDT Spoke to patient, she was aware of biopsy. She saw negative vaginosis results. Pt would like to trial estrogen cream as recommended. If sent today [facility] [place], If tomorrow [facility] in [place]. * Telephone Encounter - Kina Capps PA-C - 04/09/2024 2:19 PM EDT Ordered signed. Can you please reach out to patient and ensure she is aware of needed breast biopsy in follow up ofimaging? Kina Capps PA-C * Telephone Encounter - Priscila Moran RDMS - 04/09/2024 11:41 AM EDT Order pended as recommended per 04.09.24 diagnostic work-up. Biopsy scheduled 04.15.24. documented in this encounter Plan of Treatment Upcoming Encounters Date Type Department Care Team (Late st Contact Info) Description 04/15/2024 10:30 AM EDT Imaging Radiology [facility] [place] [address] 04/15/2024 10:30 AM EDT Imaging Radiology [facility] 1st Floor, [place] [address] [place] [address] 05/12/2024 10:00 AM EST Office Visit Family Practice [facility] [address] [place] [address] Malinda wOens CRNP [address] [place] [address] Scheduled Orders Name Type Priority Associated Diagnoses Orde r Schedule US GUIDED BREAST BIOPSY LEFT Medical Imaging Routine Mass of left breast, unspecified quadrant Abnormal finding on breast imaging Expected: 04/09/2024, Expires: 05/10/2025 Health Maintenance Due Date Last Done Comments [...] this encounter Medical Devices Implanted Type Area Collections Officer Device Identifier Shelf Expiration Date Model / Serial / Lot Stent Kev 4fr 11cm - [id number] Implanted:Qty: 1 on 02/08/2024 by Jeffrey Kerr MD at OR [facility] [employer] [facility] [id number] 08/16/2028 [id number] / / [id number] documented as of this encounter Visit Diagnoses Diagnosis Mass of left breast, unspecified quadrant- Primary Abnormal finding on breast imaging Other (abnormal) findings on radiological examination of breast documented in this encounter Care Teams Pyrometer Temperature Regulator Relationship Specialty Start Date End Date Malinda Owens CRNP [address] [place] [address] PCP - General Nurse Practitioner 09/20/23 documented as of this encounter
--- OUTSIDE RECORDS SUMMARY | 2024-09-05 14:46 | External Medical Summary | Summary of Care ---
Author Name Unknown Organization [facility] Address [address] [place] [address] Phone [phone] Care Team Providers Care Rn Prior Authorization Name Role Phone Malinda Owens Primary Care Provider Reason for Visit * Reason Onset Date Comments Referral 04/18/2024 Encounter Details Date Type Department Care Team (Late st Contact Info) Description 04/18/2024 Telephone General Surgery, [place] [address] [place] [address] Services, [facility] [address] [place] [address] Referral Allergies No known active allergiesdocumented as [...] and folate levels and referral to a carton filling machine operator. If hemoglobin levels are below 8 g/dl, we recommend Maternal Medicine ultrasound for growth every 4 weeks after 24 weeks. Consider a blood transfusion if hemoglobin levels fall below 6 g/dL. ([employer] Obstetricians and Customer Service Sales Associate Practice Bulletin Number 95, December,). Consider [...] encounter Miscellaneous Notes * Telephone Encounter - [place] Colon OSA - 04/18/2024 11:21 AM EDT Spoke to patient. Patient accepted appointment with Dr. Sinha on 04/22 at 11am per nurse navigatorJen. [place] Patient Access Rental Car Deliverer [facility] * Telephone Encounter - Anai Young LPN - 04/18/2024 10:58 AM EDT Referral from: Melinda LOPES Consult: Breast Surgery For: IMC, triple neg Attempted to contact patient to schedule appointment - vmail is full, unable to leave message. MyG sent. Will offer appointment with first available provider - either Dr. Jade or Dr. Sinha. Brea Young LPN Intake Nurse Navigator General Surgery and Breast Clinic [facility] documented in this encounter Plan of Treatment Upcoming Encounters Date Type Department Care Team (Late st Contact Info) Description 05/12/2024 10:00 AM EST Office Visit [address] [place] [address] Malinda Owens CRNP [address] [place] [address] Health Maintenance Due Date Last Done Comments [...] this encounter Medical Devices Implanted Type Area Auto Driver Device Identifier Shelf Expiration Date Model / Serial / Lot Stent Kev 4fr 11cm - [id number] Implanted:Qty: 1 on 02/08/2024 by Jeffrey Kerr MD at OR [facility] [employer] [facility] [id number] 08/16/2028 [id number] / / [id number] documented as of this encounter Care Teams Rn Prior Authorization Relationship Specialty Start Date End Date Malinda Owens CRNP [address] [place] [address] PCP - General Nurse Practitioner 09/20/23 documented as of this encounter
--- OUTSIDE RECORDS SUMMARY | 2024-09-05 14:46 | External Medical Summary | Summary of Care ---
Author Name Unknown Organization [facility] Address [address] [place] [address] Phone [phone] Care Team Providers Care Agronomy Specialist Name Role Phone Malinda Owens Primary Care Provider [phone] Reason for Visit * Reason Onset Date Comments Referral 04/18/2024 Encounter Details Date Type Department Care Team (Late st Contact Info) Description 04/18/2024 Telephone General Surgery, [place] [address] [place] [address] Services, [facility] [address] [place] [address] Referral Allergies No known active allergiesdocumented as [...] and folate levels and referral to a human resources department supervisor. If hemoglobin levels are below 8 g/dl, we recommend Maternal Medicine ultrasound for growth every 4 weeks after 24 weeks. Consider a blood transfusion if hemoglobin levels fall below 6 g/dL. ([employer] Obstetricians and Student Success Counselor Practice Bulletin Number 95, December,). Consider Venofer [...] money to get more. Never true 03/26/2024 [place] Depression Scale Answer Date Recorded [place] Depression Scale Total 6 12/11/2023 The thought [...] Miscellaneous Notes * Telephone Encounter - Anai Young LPN [...] Nurse Navigator General Surgery and Breast Clinic [facility] documented in this encounter Plan of Treatment Upcoming Encounters Date Type Department Care Team (Late st Contact Info) Description 05/12/2024 10:00 AM EST Office Visit Family Practice [facility] [address] [place] [address] Malinda Owens CRNP [address] [place] [address] Health Maintenance Due Date Last Done Comments [...] this encounter Medical Devices Implanted Type Area Electronics Technician Device Identifier Shelf Expiration Date Model / Serial / Lot Stent Kev 4fr 11cm - [id number] Implanted:Qty: 1 on 02/08/2024 by Jefrfey Kerr MD at OR [facility] [employer] [facility] [id number] 08/16/2028 [id number] / / [id number] documented as of this encounter Care Teams Agronomy Specialist Relationship Specialty Start Date End Date Malinda Owens CRNP [address] [place] [address] PCP - General Nurse Practitioner 09/20/23 documented as of this encounter
--- OUTSIDE RECORDS SUMMARY | 2024-09-05 14:46 | External Medical Summary | Summary of Care ---
Author Name Unknown Organization [facility] Address [address] [place] [address] Phone [phone] Care Team Providers Care Marble Machine Tender Name Role Phone Malinda Owens Primary Care Provider [phone] Reason for Referral * Evaluate & Treat - Unlimited Visits (Within 3 days (urgent)) - Pending Review Specialty Diagnoses / Procedures Referred By Bennie gilliland Referred To Contact Hematology/Oncology / Hematology Oncology Diagnoses Malignant neoplasm of left female breast, unspecified estrogen receptor status, unspecified site of breast (HCC) Triple negative breast cancer (HCC) Kina Capps PA-C [address] [place] [address] Referral ID Status Reason Start Date Expiration Date Visits Requested Visits Authorized [id number] Pending Review Specialty Services Required 04/18/2024 999 999 Question Answer Referral Priority Within 3 days (urgent) Where should this appointment be scheduled? ising Reason for Referral Malignant Oncology (Solid Organ Cancer) Comments Invasive breast cancer, grade 3. Triple negative. ER/TN/HER-2 negative. * Evaluate & Treat - Unlimited Visits (Within 3 days (urgent)) - Pending Review Specialty Diagnoses / Procedures Referred By Bennie t Referred To Contact General Surgery - Breast Surgery / Surgical Oncology Diagnoses Malignant neoplasm of left female breast, unspecified estrogen receptor status, unspecified site of breast (HCC) Triple negative breast cancer (HCC) Kina Capps PA-C [address] [place] [address] Referral ID Status Reason Start Date Expiration Date Visits Requested Visits Authorized [id number] Pending Review Specialty Services Required 04/18/2024 999 [...] Shanna Topete [address] [place] [address] Kina Capps PA-C [address] [place] [address] Breast Cancer Allergies No known active allergiesdocumented [...] and folate levels and referral to a sharepoint manager. If hemoglobin levels are below 8 g/dl, we recommend Maternal Medicine ultrasound for growth every 4 weeks after 24 weeks. Consider a blood transfusion if hemoglobin levels fall below 6 g/dL. ([employer] and Chart Snatcher Practice Bulletin Number 95, December,). Consider Venofer [...] money to get more. Never true 03/26/2024 [place] Depression Scale Answer Date Recorded [place] Depression Scale Total 6 12/11/2023 The thought [...] 2:03 PM EDT Called patient back to wrangell back with her regarding earlier phone call [...] back upon finishing this note. Triple negative ER/TN/HER-2 negative. Oncology referral also placed. documented in this encounter Plan of Treatment Upcoming Encounters Date Type Department Care Team (Late st Contact Info) Description 04/22/2024 11:15 AM EST Office Visit General Surgery, [facility] [address] [place] [address] Danielle Sinha MD [address] [place] [address] 04/24/2024 8:00 AM EST Office Visit Hematology/Oncology [facility] [address] [facility] [address] [place] [address] Em Ng MD [address] [place], [place] [address] [address] 05/12/2024 10:00 AM EST Office Visit Family [facility] [address] [place] [address] Roman MalindaAD [address] [place] [address] Scheduled Referrals Name Type Priority Associated Diagnoses [...] encounter Medical Devices Implanted Type Area Java Security Engineer Device Identifier Shelf Expiration Date Model / Serial / Lot Stent Kev 4fr 11cm - [id number] Implanted:Qty: 1 on 02/08/2024 by Jeffrey Kerr MD at OR [facility] [employer] [facility] [id number] 08/16/2028 [id number] / / [id number] documented as of this encounter Visit Diagnoses Diagnosis Malignant neoplasm of left female breast, unspecified estrogen receptor status, unspecified site of breast (HCC)- Primary Triple negative breast cancer (HCC) documented in this encounter Care Teams Marble Machine Tender Relationship Specialty Start Date End Date Malinda Owens CRNP [address] [facility] [place] [address] PCP - General Nurse Practitioner 09/20/23 documented as of this encounter
--- OUTSIDE RECORDS SUMMARY | 2024-09-05 14:46 | External Medical Summary | Summary of Care ---
Author Name Unknown Organization [facility] Address [address] [place] [address] Phone [phone] Care Team Providers Care Senior Software Quality Analyst Name Role Phone Malinda Owens Primary Care Provider [phone] Reason for Visit * Reason Onset Date Comments Scheduling 04/25/2024 Encounter Details Date Type Department Care Team (Late st Contact Info) Description 04/25/2024 Telephone Hematology/Oncology, [facility] [address] [facility] [place] [id number] Em Ng MD [address] [place] [address] Scheduling Allergies No known active allergiesdocumented as of this encounter (statuses as of 04/25/2024) Medications 19 29-1 MG Oral Tablet Chewable Take by mouth. Active Ibuprofen 600 MG Oral Tablet (Motrin) Take 1 Tablet by mouth every 6 hours as needed (pain). 11/02/2023 Active documented as of this encounter (statuses as of 04/25/2024) Active Problems Problem Noted Date Diagnosed Date [...] and class I obesity. Per review of ACADEMIC ADMINISTRATOR documentation of 09/25/23, blood glucose values have [...] nutrition consult with RDN (Registered Dietitian Supervisor Sound Technician). Lifestyle changes are also indicated including [...] and folate levels and referral to a home therapy clinician. If hemoglobin levels are below 8 g/dl, we recommend Maternal Medicine ultrasound for growth every 4 weeks after 24 weeks. Consider a blood transfusion if hemoglobin levels fall below 6 g/dL. ([employer]st[employer] and Welding Machine Operator [employer] Practice Bulletin Number 95, December,). Consider Venofer [...] as of this encounter (statuses as of 04/25/2024) Resolved Problems Problem Noted Date Diagnosed Date Resolved Date Abnormal glucose tolerance i n mother complicating 04/19/2023 08/31/2023 Overview (04/19/2023): Failed early glucola. 3hr GTT ordered documented as of this encounter (statuses as of 04/25/2024) Immunizations Name Administration Dates Next Due DTP [...] money to get more. 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 -Community Arts Centre Manager required Location and check-in instructions Verbalizes understanding of education: Yes Procedure date at time of Imaging Encounter: 05/02 What procedure is patient having? Mediport Insertion Laterality confirmed as Not Applicable Does the patient have a yellow bar? did not The Patient was given the opportunity to ask questions concerning the procedure. Signature: THOMAS Newberry 04/25/2024 documented in this encounter Plan of Treatment Upcoming Encounters Date Type Department Care Team (Latest Contact Info) Description 04/30/2024 7:45 AM EST Appointment Cardiac Studies, [address] [place] [address] 05/01/2024 7:00 AM EST Appointment Radiology, [address] [place] [address] 05/02/2024 11:25 AM EST Hospital Encounter OR [facility], Operating Room, [facility] - [address] [place] [address] [address] [place] [phone] Iam Curry MD [facility] [place] [address] 05/02/2024 11:25 AM EST - 05/02/2024 12:20 PM EST Surgery OR [facility], Operating Room, [facility] - [address] [place] [address] [address] [place] [phone] Iam Curry MD [address] [place] [address] [place] [address] INSERT TUNNELED CENTRAL VENOUS ACCESS WITH SUBQ [place] 05/07/2024 8:00 AM EST Imaging Radiology [facility] [address] [place] [address] 05/08/2024 9:00 AM EST Office Visit Hematology/Oncolog y [facility] [address] [place] [phone] Em Ng MD [address] [facility] [place] [address] 05/08/2024 9:30 AM EST Pt Ed by Nurse Hematology/Oncolog y [facility] [place] [address] [place] [phone] [place] Nurse Hem Onc [facility] [address] [place] [address] 05/12/2024 10:00 AM EST Office Visit Family [facility] [address] [place] [address] Malinda Owens CRNP [address] [place] [address] 08/06/2024 9:00 AM EST Telemedicine Genetics HemOnc, [facility] [address] [place] [address] Estephania Reyes, [place] [address] [place] [address] Scheduled Procedures Name Priority Associated [...] encounter Medical Devices Implanted Type Area Sales Support Manager Device Identifier Shelf Expiration Date Model / Serial / Lot Stent Kev 4fr 11cm - [id number] Implanted:Qty: 1 on 02/08/2024 by Jeffrey Kerr MD at OR [facility] [employer] [facility] [id number] 08/16/2028 [id number] / / [id number] documented as of this encounter Care Teams Senior Software Quality Analyst Relationship Specialty Start Date End Date Malinda Owens CRNP [address] [place] [address] PCP - General Nurse Practitioner 09/20/23 documented as of this encounter
--- OUTSIDE RECORDS SUMMARY | 2024-09-05 14:46 | External Medical Summary | Summary of Care ---
Author Name Unknown Organization [facility] Address [address] [facility] [address] Phone [phone] Care Team Providers Care Mill Laborer Name Role Phone Malinda Owens Primary Care Provider [phone] Reason for Visit * Reason Onset Date Comments Order Request 04/09/2024 Encounter Details Date Type Department Care Team (Late st Contact Info) Description 04/09/2024 Telephone Radiology [facility] [address] [place] [address] Kina Capps PA-C [address] [place] [address] Order Request Allergies No known active allergiesdocumented [...] and folate levels and referral to a street department dispatcher. If hemoglobin levels are below 8 g/dl, we recommend Maternal Medicine ultrasound for growth every 4 weeks after 24 weeks. Consider a blood transfusion if hemoglobin levels fall below 6 g/dL. ([employer] Obst[employer]ians and Spider Assembler Practice Bulletin Number 95, December,). Consider [...] money to get more. Never true 03/26/2024 [place] Depression Scale Answer Date Recorded [place] Depression Scale Total 6 12/11/2023 The thought [...] in target, If tomorrow [facility] in [place]. * Telephone Encounter - Kina Capps PA-C [...] Description 04/15/2024 10:30 AM EDT Imaging Radiology [facility] 132 [facility] [place] [address] 04/15/2024 10:30 AM EDT Imaging Radiology [facility] 1st [facility] [address] [facility] [place] [address] 05/12/2024 10:00 AM EST Office Visit Family Practice [facility] [address] [facility] [place] [address] Malinda Owens CRNP 132 [facility] [place] [address] Scheduled Orders Name Type Priority Associated Diagnoses [...] this encounter Medical Devices Implanted Type Area Siderographer Device Identifier Shelf Expiration Date Model / Serial / Lot Stent Kev 4fr 11cm - [id number] Implanted:Qty: 1 on 02/08/2024 by Jeffrey Kerr MD at OR [facility] [employer] [facility] [id number] 08/16/2028 [id number] / / [id number] documented as of this encounter Visit Diagnoses Diagnosis Mass of left breast, unspecified quadrant- Primary Abnormal finding on breast imaging Other (abnormal) findings on radiological examination of breast documented in this encounter Care Teams Mill Laborer Relationship Specialty Start Date End Date Malinda Owens CRNP [address] [facility] [place] [address] PCP - General Nurse Practitioner 09/20/23 documented as of this encounter
--- OUTSIDE RECORDS SUMMARY | 2024-09-05 14:46 | External Medical Summary | Summary of Care ---
Author Name Unknown Organization [facility] Address [address] [place] [address] Phone [phone] Care Team Providers Care Slunk Skinner Name Role Phone Malinda Owens Primary Care Provider [phone] Reason for Referral * Evaluate & Treat - Unlimited Visits (Within 10 days (routine)) - Pending Review Specialty Diagnoses / Procedures Referred By Contac t Referred To Contact Medical Genetics / Hematology Oncology Diagnoses Malignant neoplasm of upper-outer quadrant of left breast in female, estrogen receptor negative (HCC) Danielle Sinha MD [address] [place] [address] Referral ID Status Reason Start Date Expiration Date Visits Requested Visits Authorized [id number] Pending Review Specialty Services Required 04/22/2024 999 999 Question Answer Referral Priority Within 10 days (routine) Where should this appointment be scheduled? [facility] Is this referral request related to one of the following genetics sub-specialties? If unsure of category, use Medical Genetics Ask-A-Doc. Cancer Personal history of cancer? Yes Type of cancer and age at diagnosis: breast age 29 Family history of cancer? Yes Describe family history of cancer: maternal great grandmother sister age 30s with breast cancer Has patient OR family member had genetic testing previously? No Comments Will affect surgical decision making, ideally need result by Raphael to give time for plastics consult if positive * Precert (Within 10 days (routine)) - Pending Review Specialty Diagnoses / Procedures Referred By Contac t Referred To Contact Radiology Diagnoses Malignant neoplasm of upper-outer quadrant of left breast in female, estrogen receptor negative (HCC) Procedures MRI BREAST BILATERAL W WO CONTRAST Danielle Sinha MD [address] [place] [address] Referral ID Status Reason Start Date Expiration Date V isits Requested Visits Authorized [id number] Pending Review 04/29/2024 999 999 Reason for Visit * Reason Comments NEW PATIENT IMC of left breast * Evaluate & Treat - Unlimited Visits (Within 3 days (urgent)) - Pending Review Specialty Diagnoses / Procedures Referred By Bennie gilliland Referred To Contact General Surgery - Breast Surgery / Surgical Oncology Diagnoses Malignant neoplasm of left female breast, unspecified estrogen receptor status, unspecified site of breast (HCC) Triple negative breast cancer (HCC) Kina Capps PA-C [address] [place] [address] Referral ID Status Reason Start Date Expiration Date Visits Requested Visits Authorized [id number] Pending Review Specialty Services Required 04/18/[phone] Encounter Details Date Type Department Care Team (Late st Contact Info) Description 04/22/2024 11:15 AM EST Office Visit General Surgery, [facility] [address] [place] [address] Danielle Sinha MD [address] [place] [address] Malignant neoplasm of upper-outer quadrant of left breast in female, estrogen receptor negative (HCC)* Allergies No known active allergiesdocumented as of this encounter (statuses as of 04/22/2024) Medications Medication Sig Dispensed Refills Start Date End Date Status 19 29-1 MG Oral Tablet Chewable Take by mouth. Active Ibuprofen 600 MG Oral Tablet (Motrin) Take 1 Tablet by mouth every 6 hours as needed (pain). 11/02/2023 Active documented as of this encounter (statuses as of 04/22/2024) Active Problems Problem Noted Date Diagnosed Date [...] and folate levels and referral to a wet suit gluer. If hemoglobin levels are below 8 g/dl, we recommend Maternal Medicine ultrasound for growth every 4 weeks after 24 weeks. Consider a blood transfusion if hemoglobin levels fall below 6 g/dL. ([employer] Obstetricians and Flight Crew Ordnanceman Practice Bulletin Number 95, December,). Consider Venofer [...] as of this encounter (statuses as of 04/22/2024) Resolved Problems Problem Noted Date Diagnosed Date Resolved Date Abnormal glucose tolerance i n mother complicating 04/19/2023 08/31/2023 Overview: Failed early glucola. 3hr GTT ordered documented as of this encounter (statuses as of 04/22/2024) Immunizations Name Administration Dates Next Due DTP [...] money to get more. Never true 03/26/2024 [place] Depression Scale Answer Date Recorded [place] Depression Scale Total 6 12/11/2023 The [...] No 03/26/2024 Does the household have a [facility] hospital[facility] source of income? (Household - for [...] Sign Reading Time Taken Comments Blood Pressure 106/59 04/22/2024 11:09 AM EST Pulse 53 04/22/2024 11:09 AM EST Temperature 36.2 C (97.1 F) 04/22/2024 11:[address] Respiratory Rate - - Oxygen Saturation - - Inhaled Oxygen Concentration - - Weight 87.7 kg (193 lb 4.8 oz) 04/22/2024 11:09 AM EST Height - - Body Mass Index 28.55 02/08/2024 12:02 PM EDT documented in this encounter Progress Notes * Danielle Sinha MD - 04/22/2024 11:17 AM EST Images from the original note were not included. [facility] NEW BREAST CANCER CLINIC NOTE Chief Complaint Patient presents with NEW PATIENT IM of left breast REASON FOR CONSULTATION: Left Breast Cancer Clinical [...] with a container labeled with "Yuli Gutierrez", "[id number]", "1994" and " left breast 2/three o'clock [...] 12 cm from nipple, core biopsy (block [id number]): Invasive mammary carcinoma of no special type, grade 3. Estrogen Receptor (ER) protein expression is NEGATIVE <1% nuclear positivity COMMENT: Assay internal and external control immunoreactivity is appropriate. Progesterone Receptor (TX) protein expression is NEGATIVE <1% nuclear positivity [...] patient's baseline mammogram. Findings Left MAMMOGRAM DIAGNOSTIC KARIN BILATERAL The left breast is heterogeneously dense, [...] consultation with Dr. Sinha on 04/22/2024. Mammography Sponge Press Operator Amber Moran has been notified for scheduling and tracking purposes. Signed by Sherin Iraheta MD on 04/21/2024 13:46 Narrative & Impression EXAM US GUIDED BREAST BIOPSY LEFT; MAMMOGRAM POST BIOPSY CLIP PLACEMENT- 04/15/2024 11:11 am; 411:17 am HISTORY Referred for ultrasound guided core biopsy of an 18 x 17 x 11 mm hypoechoic mass at 2/3 o'clock 12 cm from nipple, left breast. COMPARISON Bilateral mammogram and left breast ultrasound 04/09/2024. TECHNIQUE ANESTHESIA: 1% lidocaine TENANT RELATIONS COORDINATOR: Dr. Mulligan was present for and performed [...] by Dr. Mulligan in the presence of radiologic technologist mammogram and it was confirmed that procedure matches [...] performed by Jeffrey Kerr MD at OR [facility] US GUIDED BREAST BIOPSY LEFT Left 04/15/2024 [...] risk of local recurrence and help desk operator in the decision for breast conservation vs [...] now, she would not need a marina tree feller operator placement as the tumor is palpable (will do specimen radiograph). Should she undergo chemo upfront, will plan on marina tree feller operator placement if the lesion is no longer palpable. We reviewed that bilateral mastectomies or unilateral mastectomy with or without reconstruction canalso be chosen depending on patient preference or can be recommended pending the above testing results. We discussed that reconstruction is generally done in two stages with a temporary tissue search planner placed initially followed by a final reconstruction [...] to use vaginal estrogen creamas prescribed by obgyn nurse for vaginal dryness/ dyspareunia. PLAN: Genetic counseling/ [...] provider/QHP. Danielle Sinha M.D. 04/22/2024 1:01 PM documented in this encounter Nursing Notes * Clary Lares LPN - 04/22/2024 11:10 AM EST Chief Complaint Patient presents with NEW PATIENT IMC of left breast Patient presents today for evaluation of patient found a lump, then had a mammogram, then US then biopsy.. [facility] 04[facility]24. BREAST HISTORY: Mass: No Breast Pain: dull aching but is breast feeding Nipple discharge: No Previous problems/surgeries: None Breast Cancer: no Other Cancers: no GYNECOLOGIC HISTORY: LMP: No LMP recorded. Menarche at age: 12 Menopause at age: n/a Number of children: 1 Patient's age at first live : 28 Did you breast feed any of your children: Yes Ever take oral contraceptives? No Ever take estrogen? No Family History of Breast Cancer: Yes documented in this encounter Plan of Treatment Upcoming Encounters Date Type Department Care Team (Late st Contact Info) Description 04/24/2024 8:00 AM EST Office Visit Hematology/Oncology [facility] [place] [address] [facility] [address] Em Ng MD [address] [place] [address] [place] [phone] 05/07/2024 8:00 AM EST Imaging Radiology [facility] 1st [facility] [address] [facility] [place] [address] 05/12/2024 10:00 AM EST Office Visit Family Practice [facility] [address] [facility] [place] [address] Malinda Owens CRNP 132 [facility] [place] [address] Scheduled Orders Name Type Priority Associated Diagnoses Orde r Schedule MRI BREAST BILATERAL W WO CONTRAST Medical Imaging Routine Malignant neoplasm of upper-outer quadrant of left breast in female, estrogen receptor negative (HCC) Expected: 04/29/2024 (Approximate), Expires: 05/22/2025 Scheduled Referrals Name Type Priority Associated Diagnoses Orde r Schedule GENETICS REFERRAL OP Referral Within 10 days (routine) Malignant neoplasm of upper-outer quadrant of left breast in female, estrogen receptor negative (HCC) Ordered: 04/22/2024 Health Maintenance Due Date Last Done Comments [...] this encounter Medical Devices Implanted Type Area Enameler Device Identifier Shelf Expiration Date Model / Serial / Lot Stent Angulo 4fr 11cm - [id number] Implanted:Qty: 1 on 02/08/2024 by Jeffrey Kerr MD at OR [facility] [employer] [id number] 08/16/2028 [id number] / / [id number] documented as of this encounter Visit Diagnoses Diagnosis Malignant neoplasm of upper-outer quadrant of left breast in female, estrogen receptor negative (HCC)- Primary documented in this encounter Care Teams Slunk Skinner Relationship Specialty Start Date End Date Malinda Owens CRNP 132 [facility] [place] [address] PCP - General Nurse Practitioner 09/20/23 documented as of this encounter
--- OUTSIDE RECORDS SUMMARY | 2024-09-05 14:46 | External Medical Summary | Summary of Care ---
Author Name Unknown Organization [facility] Address [address] [facility] [place] [address] Phone [phone] Care Team Providers Care Sr Risk Management Consultant Name Role Phone Ridge Owensmargaret AD Primary Care Provider [phone] Reason for Visit * Reason Onset Date Comments Order Request 04/25/2024 Encounter Details Date Type Department Care Team (Late st Contact Info) Description 04/25/2024 Telephone Hematology/Oncology Treatment, [place] [address] [place] [address] Em Ng MD [address] [place] [phone] Order Request Allergies No known active [...] complete. Enrolled in Current Health. Plans to milk pickup driver meter from pharmacy today. Instructions [...] and class I obesity. Per review of BUILDING ASSOCIATE documentation of 09/25/23, blood glucose values [...] Recommend nutrition consult with RDN (Registered Dietitian Parking Line Painter). Lifestyle changes are also indicated including [...] and folate levels and referral to a slitting and shipping supervisor. If hemoglobin levels are below 8 g/dl, we recommend Maternal Medicine ultrasound for growth every 4 weeks after 24 weeks. Consider a blood transfusion if hemoglobin levels fall below 6 g/dL. (Citizen [employer] [place] Obstetricians and Technical Communication Teacher Practice Bulletin Number 95, December,). Consider [...] money to get more. 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 Thanks! [...] 04/30/2024 7:45 AM EST Appointment Cardiac Studies, [address] [address] 05/01/2024 7:00 AM EST Appointment Radiology, [address] [place] [address] 05/02/2024 11:25 AM EST Hospital Encounter OR [facility], Operating Room, [facility] - 4th Floor [address] [place] [address] [place] [phone] Iam Curry MD [address] [place] [address] [place] [address] 05/02/2024 11:25 AM EST - 05/02/2024 12:20 PM EST Surgery OR [facility], Operating Room, [facility] - 4th Floor [address] [place] [address] [place] [phone] Iam Curry MD [address] [place], [place] [address] [address] INSERT TUNNELED CENTRAL VENOUS ACCESS WITH SUBQ PORT 05/07/2024 8:00 AM EST Imaging Radiology [facility] 1st [facility], [address] [place] [address] 05/08/2024 9:00 AM EST Office Visit Hematology/Oncolog y [facility] [address] [place], [place] [phone] Em Ng MD 400 [facility] [place] [address] 05/08/2024 9:30 AM EST Pt Ed by Nurse Hematology/Oncolog y [facility] [address] [place] [phone] [place] Nurse Hem Onc [facility] [address] [place] [address] 05/12/2024 10:00 AM EST Office Visit Family Practice [facility] [address] [place] [address] Malinda Owens CRNP [address] [place] [address] 08/06/2024 9:00 AM EST Telemedicine Genetics HemOnc, [facility] [address] [place] [address] Estephania Reyes, MS [address] [place] [address] Scheduled Procedures Name Priority Associated Diagnoses Date/Ti [...] this encounter Medical Devices Implanted Type Area Pharmacist Aide Device Identifier Shelf Expiration Date Model / Serial / Lot Stent Kev 4fr 11cm - [id number] Implanted:Qty: 1 on 02/08/2024 by Jeffrey Kerr MD [facility] [id number] 08/16/2028 [id number] / / [id number] documented as of this encounter Care Teams Sr Risk Management Consultant Relationship Specialty Start Date End Date Malinda Owens CRNP [address] [place] [address] PCP - General Nurse Practitioner 09/20/23 documented as of this encounter
--- OUTSIDE RECORDS SUMMARY | 2024-09-05 14:46 | External Medical Summary | Summary of Care ---
Author Name Unknown Organization [facility] Address [address] [facility] [place] [address] Phone [phone] Care Team Providers Care Fund Raiser Name Role Phone Ridge Owensmargaret AD Primary Care Provider [phone] Reason for Visit * Reason Onset Date Comments Order Request 04/25/2024 Encounter Details Date Type Department Care Team (Late st Contact Info) Description 04/25/2024 Telephone Hematology/Oncology Treatment, [place] [address] [place] [address] Em Ng MD [address] [place] [phone] Order Request Allergies No known active [...] Enrolled in Current Health. Plans to picking crew supervisor meter from pharmacy today. Instructions provided [...] and class I obesity. Per review of BREAKER UNIT ASSEMBLER documentation of 09/25/23, blood glucose values [...] Recommend nutrition consult with RDN (Registered Dietitian Xerox Machine Operator). Lifestyle changes are also indicated [...] and folate levels and referral to a over the horizon targeting supervisor. If hemoglobin levels are below 8 g/dl, we recommend Maternal Medicine ultrasound for growth every 4 weeks after 24 weeks. Consider a blood transfusion if hemoglobin levels fall below 6 g/dL. ([employer] Obstetricians and Python Web Developer Practice Bulletin Number 95, December,). [...] money to get more. 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 on file [...] 04/30/2024 7:45 AM EST Appointment Cardiac Studies, [address] [address] 05/01/2024 7:00 AM EST Appointment Radiology, [address] [place] [address] 05/02/2024 11:25 AM EST Hospital Encounter OR [facility], Operating Room, [facility] - 4th [address] [place] [phone] Iam Curry MD [address] [place] [address] [place] [address] 05/02/2024 11:25 AM EST - 05/02/2024 12:20 PM EST Surgery OR [facility], Operating Room, [facility] [place] - [address] [place], [place] [address] [phone] Iam Curry MD [address] [place] [address] [place] [address] INSERT TUNNELED CENTRAL VENOUS ACCESS WITH SUBQ PORT 05/07/2024 8:00 AM EST Imaging Radiology [facility] 1st [facility] [address] [place] [address] 05/08/2024 9:00 AM EST Office Visit Hematology/Oncolog y [facility] [place] [address] [place] [phone] Em Ng MD [address] [place] [address] [place] [phone] 05/08/2024 9:30 AM EST Pt Ed by Nurse Hematology[facility]colog y [facility] [place] [address] [place] [address] [place] Nurse Hem Onc [place] [address] [place] [address] 05/12/2024 10:00 AM EST Office Visit Family [facility] [address] [facility] [address] Malinda Owens CRNP [address] [place] [address] 08/06/2024 9:00 AM EST Telemedicine Genetics HemOnc, [facility] [address] [place] [address] Estephania Reyes, MS [address] [place] [address] Scheduled Procedures Name Priority Associated [...] this encounter Medical Devices Implanted Type Area Winding Rack Operator Device Identifier Shelf Expiration Date Model / Serial / Lot Stent Kev 4fr 11cm - [id number] Implanted:Qty: 1 on 02/08/2024 by Jeffrey Kerr MD at OR [facility] [email or web address] [facility] [id number] 08/16/2028 [id number] / / [id number] documented as of this encounter Care Teams Fund Raiser Relationship Specialty Start Date End Date Malinda Owens CRNP [address] [place] [address] PCP - General Nurse Practitioner 09/20/23 documented as of this encounter
--- OUTSIDE RECORDS SUMMARY | 2024-09-05 14:46 | External Medical Summary | Summary of Care ---
Author Name Unknown Organization [facility] Address [address] [facility] [address] Phone [phone] Care Team Providers Care Musical Instrument Mechanic Name Role Phone Malinda Owens Primary Care Provider [phone] Reason for Visit * Reason Onset Date Comments Test Results 04/09/2024 Encounter Details Date Type Department Care Team (Late st Contact Info) Description 04/09/2024 Telephone Gynecology/Obstetrics [facility] [address] [place] [address] Kina Capps PA-C [address] [place] [address] Test Results Allergies No known active allergiesdocumented as of this encounter (statuses as of 04/09/2024) Medications Medication Sig Dispensed Refills Start Date End Date Status 19 29-1 MG Oral Tablet Chewable Take by mouth. Active Ibuprofen 600 MG Oral Tablet (Motrin) Take 1 Tablet by mouth every 6 hours as needed (pain). 11/02/2023 Active documented as of this encounter (statuses as of 04/09/2024) Active Problems Problem Noted Date Diagnosed Date Diet controlled gestational diabetes mellitus (GDM) in third trimester 09/20/2023 Overview: 09/20/23 Repeated 3hr GTT at 33w d/t LGA, failed. M referral placed for ADAPT. Diagnosed at 33 weeks Nutrition consult 09/24/23 Lab Results Component Value Date/Time 50-G GESTATIONAL GLUCOSE, 1 HOUR - ISINGER 169 (H) 04/19/2023 09:23 AM 100-G GESTATIONAL [...] and folate levels and referral to a calibration engineer. If hemoglobin levels are below 8 g/dl, we recommend Maternal Medicine ultrasound for growth every 4 weeks after 24 weeks. Consider a blood transfusion if hemoglobin levels fall below 6 g/dL. ([place] Obstetricians and Public Policy Analyst Practice Bulletin Number 95, December,). Consider [...] as of this encounter (statuses as of 04/09/2024) Resolved Problems Problem Noted Date Diagnosed Date Resolved Date Abnormal glucose tolerance i n mother complicating 04/19/2023 08/31/2023 Overview: Failed early glucola. 3hr GTT ordered documented as of this encounter (statuses as of 04/09/2024) Immunizations Name Administration Dates Next Due DTP [...] money to get more. Never true 03/26/2024 [place] Depression Scale Answer Date Recorded [place] Depression Scale Total 6 12/11/2023 The thought [...] Encounter - Ronda Turner LPN - 04/09/2024 2:45 PM EDT Spoke to patient, aware. * Telephone Encounter - Kina Capps PA-C - 04/09/2024 2:39 PM EDT Please also see separate encounter regarded needed breast biopsy. Her vaginosis panel returned negative. We had discussed trial of vaginal estrogen for vaginal irritation. Please let her know if still interested it is option -- however, would like to ensure breast biopsy is benign before starting her ontopical estrogen. Kina Capps PA-C documented in this encounter Plan of Treatment Upcoming Encounters Date Type Department Care Team (Late st Contact Info) Description 04/15/2024 10:30 AM EDT Imaging Radiology [facility] 132 [facility] [place] [address] 04/15/2024 10:30 AM EDT Imaging Radiology [address] 132 [facility] [place] [address] 05/12/2024 10:00 AM EST Office Visit Family [facility] [address] [place] [address] Malinda Owens CRNP [address] [place] [address] Health Maintenance Due Date Last Done Comments [...] this encounter Medical Devices Implanted Type Area Enterprise Mobility Architect Device Identifier Shelf Expiration Date Model / Serial / Lot Stent Kev 4fr 11cm - [id number] Implanted:Qty: 1 on 02/08/2024 by Jeffrey Kerr MD at OR [facility] [id number] 08/16/2028 [id number] / / [id number] documented as of this encounter Care Teams Musical Instrument Mechanic Relationship Specialty Start Date End Date Malinda Owens CRNP [address] [place] [address] PCP - General Nurse Practitioner 09/20/23 documented as of this encounter
--- OUTSIDE RECORDS SUMMARY | 2024-09-05 14:46 | External Medical Summary | Summary of Care ---
Author Name Unknown Organization [facility] Address [address] [facility] [place] [address] Phone [phone] Care Team Providers Care Paintings Conservator Name Role Phone Ridge Owensmargaret AD Primary Care Provider [phone] Reason for Visit * Reason Onset Date Comments Order Request 04/25/2024 Encounter Details Date Type Department Care Team (Late st Contact Info) Description 04/25/2024 Telephone Hematology/Oncology Treatment, [place] [address] [place] [address] Em Ng MD [address] [place] [phone] Order Request Allergies No known active [...] and class I obesity. Per review of STRIP MACHINE OPERATOR documentation of 09/25/23, blood glucose [...] Recommend nutrition consult with RDN (Registered Dietitian Javascript Web Developer). Lifestyle changes are also indicated including optimizing [...] and folate levels and referral to a relief man. If hemoglobin levels are below 8 g/dl, we recommend Maternal Medicine ultrasound for growth every 4 weeks after 24 weeks. Consider a blood transfusion if hemoglobin levels fall below 6 g/dL. ([employer] Obstetricians and Account Executive Metalworking Practice Bulletin Number 95, December,). Consider Venofer [...] money to get more. 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 on [...] 04/30/2024 7:45 AM EST Appointment Cardiac Studies, [address] [place] [address] 05/01/2024 7:00 AM EST Appointment Radiology, [address] [place] [address] 05/02/2024 11:25 AM EST Hospital Encounter OR [facility], Operating Room, [facility] - 4th Floor [address] [place] [address] Iam Curry MD [address] [place] [address] 05/02/2024 11:25 AM EST - 05/02/2024 12:20 PM EST Surgery OR [facility], Operating Room, [facility] - 4th Floor [address] [place] [phone] Iam Curry MD [address] [place] [address] INSERT TUNNELED CENTRAL VENOUS ACCESS WITH SUBQ PORT 05/07/2024 8:00 AM EST Imaging Radiology [facility] 1st [facility] 132 [facility] [place] [address] 05/08/2024 9:00 AM EST Office Visit Hematology/Oncolog y [place] [address] [place] [phone] Em Ng MD [address] [place] [phone] 05/08/2024 9:30 AM EST Pt Ed by Nurse Hematology/Oncolog y [place] [address] [place] [phone] [place], Nurse Hem Onc [place] [address] [place] [address] 05/12/2024 10:00 AM EST Office Visit Family Practice [facility] 132 [facility] [place] [address] Malinda Owens CRNP 132 [facility] [place] [address] 08/06/2024 9:00 AM EST Telemedicine Genetics HemOnc, [facility] [address] [place] [address] Estephania Reyes, MS [address] [place], [place] [id number] Scheduled Procedures Name Priority Associated Diagnoses Date/Ti [...] this encounter Medical Devices Implanted Type Area Guyline Operator Device Identifier Shelf Expiration Date Model / Serial / Lot Therese Angulo 4fr 11cm - [id number] Implanted:Qty: 1 on 02/08/2024 by Jeffrey Kerr MD at OR [facility] [employer] [facility] [id number] 08/16/2028 [id number] / / [id number] documented as of this encounter Care Teams Paintings Conservator Relationship Specialty Start Date End Date Malinda Owens CRNP [address] [place] [address] PCP - General Nurse Practitioner 09/20/23 documented as of this encounter
--- OUTSIDE RECORDS SUMMARY | 2024-09-05 14:47 | External Medical Summary ---
Author Name Unknown Address Unknown Organization K01:[facility] [place] [address] [facility] [address] [facility] [address] Laboratory Report Ordering Provider Test Date Status ANNAMARIEDAVID 04/07/2024 09:06:23 Final Observation Date Value Abnormality Reference (Units ) Status Bacterial vaginosis [Interpretation] in Vaginal fluid Qualitative 04/07/2024 09:06:23 Negative Negative Final Negative for Bacterial Vagin osis. Correlate results with other clinical findings. Lakisha sp DNA [Presence] in Vaginal fluid by Probe 04/07/2024 09:06:23 Negative Negative Final No Lakisha species group RNA detected. Correlate results with other clinical findings. Lakisha glabrata RNA [Presen ce] in Vaginal fluid by MOR with probe detection 04/07/2024 09:06:23 Negative Negative Final No Lakisha glabrata RNA dete cted. Correlate results with other clinical findings. Trichomonas vaginalis DNA [P resence] in Vaginal fluid by Probe 04/07/2024 09:06:23 Negative Negative Final No Trichomonas vaginalis RNA detected. Performing Location [facility] [place] [address] [facility] [address]
--- OUTSIDE RECORDS SUMMARY | 2024-09-05 14:47 | External Medical Summary | Summary of Care ---
Author Name Unknown Organization [facility] Address [address] [place] [address] Phone [phone] Care Team Providers Care Ambulance Mechanic Name Role Phone Malinda Owens Primary Care Provider [phone] Reason for Visit * Reason Onset Date Comments Advice 03/24/2024 Encounter Details Date Type Department Care Team (Late st Contact Info) Description 03/24/2024 Telephone Gynecology/Obstetrics [address] [place] [address] Services, Scheduling [address] [place] [address] Advice Allergies No known active allergiesdocumented as of this encounter (statuses as of 03/24/2024) Medications Medication Sig Dispensed Refills Start Date End Date Status 19 29-1 MG Oral Tablet Chewable Take by mouth. Active Ibuprofen 600 MG Oral Tablet (Motrin) Take 1 Tablet by mouth every 6 hours as needed (pain). 11/02/2023 Active documented as of this encounter (statuses as of 03/24/2024) Active Problems Problem Noted Date Diagnosed Date [...] Current Health. 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 [...] and folate levels and referral to a phlebotomy services technician. If hemoglobin levels are below 8 g/dl, we recommend Maternal Medicine ultrasound for growth every 4 weeks after 24 weeks. Consider a blood transfusion if hemoglobin levels fall below 6 g/dL. ([employer] Obstetricians and Motel Maid Practice Bulletin Number 95, December,). Consider Venofer [...] as of this encounter (statuses as of 03/24/2024) Resolved Problems Problem Noted Date Diagnosed Date Resolved Date Abnormal glucose tolerance i n mother complicating 04/19/2023 08/31/2023 Overview: Failed early glucola. 3hr GTT ordered documented as of this encounter (statuses as of 03/24/2024) Immunizations Name Administration Dates Next Due DTP [...] money to get more. Never true 01/19/2023 [place] Depression Scale Answer Date Recorded [place] Depression Scale Total 6 12/11/2023 The thought of harming myself has occurred to me . Never 12/11/2023 Childcare Answer Date Recorded Do you feel overwhelmed with taking care of a child, family member or friend? No 01/19/2023 Does your family need help f inding childcare? (Household - for ages 0-17 years) Not on file 01/19/2023 Clothing Answer Date Recorded Have you been unable to get clothing when it was really needed? No 01/19/2023 Is your family able to get c lothes or diapers when needed? (Household - for ages 0-17 years) Not on file 01/19/2023 Personal Safety Answer Date Recorded Do you feel unsafe or have concerns for your saf ety? No 01/19/2023 Do you have concerns for you r family's safety? (Household - for ages 0-17 years) Not on file 01/19/2023 Utilities Answer Date Recorded Do you have trouble paying y our heating, water, or electric bill? (Adult - for ages 18 years and over) Not on file 01/22/2024 Is your family able to pay t he heat, water, or electric bill? (Household - for ages 0-17 years) Not on file 01/22/2024 Does your family have access to good internet? (Household - for ages 0-17 years) Not on file 01/22/2024 Employment Status Answer Date Recorded Are you unemployed or without regular income? No 01/19/2023 Does the household have a re gular source of income? (Household - for ages 0-17 years) Not on file 01/19/2023 Social Connections Answer Date Recorded How often do you feel lonely or isolated from those around you? (Adult - for ages 18 years and over) Not on file 01/22/2024 Financial Resource Strain Answer Date R ecorded Do you have any trouble payi ng for your medications, or do you think you might in the future? No 01/19/2023 Does your family have troubl e paying for medicine? (Household - for ages 0-17 years) Not on file 01/19/2023 Transportation Needs Answer Date Record ed READ ONLY Do you have troubl e getting a ride to medical visits or work? Never True 01/19/2023 Does your family have a hard time getting a ride to doctors visits? (Household - for ages 0-17 years) Not on file 01/19/2023 Has lack of transportation k ept you from medical appointments, meetings, work, or from getting things needed for daily living? Check all that apply. (Adult - for ages 18 years and over) Not on file 01/19/2023 Do you (or your family) have trouble finding or paying for a ride (transportation)? (Household - for ages 0-17 years) Not on file 01/19/2023 Housing Stability Answer Date Recorded Do you currently live in a s helter or have no steady place to sleep at night? No 01/19/2023 READ ONLY Do you think you a re at risk of becoming homeless? No 01/19/2023 Does your family worry about paying for your home or becoming homeless? (Household - for ages 0-17 years) Not on file 0 01/19/2023 Are you homeless or worried that you might be in the future? (Adult - for ages 18 years and over) Not on file Are you (or your family) giuliano eless or worried that you might be in the future? (Household - for ages 0-17 years) Not on file Food Insecurity Answer Date Recorded Do you need food for this week? No 01/19/2023 Are you able to get enough f ood for your family? (Household - for ages 0-17 years) Not on file 01/19/2023 Does your family need food t his week? (Household - for ages 0-17 years) Not on file 01/19/2023 Do you always have enough fo od for your family? (Household - for ages 0-17 years) Not on file 01/19/2023 Sex and Gender Information Value Date Recorded Sex Assigned at Female 01/19/2023 1:52 PM EDT Gender Identity Female 01/19/2023 1:52 PM EDT Sexual Orientation Straight 01/19/2023 1: 52 PM EDT Job Start Date Occupation Industry Not on file Not on file Not on file documented as of this encounter Miscellaneous Notes * Telephone Encounter - Lolis Vasquez LPN - 03/24/2024 2:44 PM EDT Offer first available please * Telephone Encounter - Judy Mott OSA - 03/24/2024 2:28 PM EDT Pt calling about pain she is having since giving . Pt states she is having a stingy when having sex. Tried to schedule appt nothing searching Please assist Thank you. documented in this encounter Plan of Treatment Upcoming Encounters Date Type Department Care Team (Late st Contact Info) Description 04/07/2024 8:30 AM EDT Office Visit Gynecology/Obstetrics [facility] [address] [place] [address] Kina Capps PA-C 132 [place] [address] 05/12/2024 10:00 AM EST [facility] [address] [place] [address] Malinda Owens CRNP [address] [place] [address] Health Maintenance Due Date Last Done Comments [...] this encounter Medical Devices Implanted Type Area Distillery Miller Device Identifier Shelf Expiration Date Model / Serial / Lot Stent Kev 4fr 11cm - [id number] Implanted:Qty: 1 on 02/08/2024 by Jeffrey Kerr MD at OR [facility] [employer] [facility] [id number] 08/16/2028 [id number] / / [id number] documented as of this encounter Care Teams Ambulance Mechanic Relationship Specialty Start Date End Date Malinda Owens CRNP [address] [place] [address] PCP - General Nurse Practitioner 09/20/23 documented as of this encounter
--- OUTSIDE RECORDS SUMMARY | 2024-09-05 14:47 | External Medical Summary | Summary of Care ---
Author Name Unknown Organization [facility] Address [address] [place] [address] Phone [phone] Care Team Providers Care Life Science Teacher Name Role Phone Malinda Owens Primary Care Provider [phone] Reason for Visit * Reason Onset Date Comments Advice 12/27/2023 Encounter Details Date Type Department Care Team (Late st Contact Info) Description 12/27/2023 Telephone Family Practice [facility] [address] [place] [address] Malinda Owens CRNP [address] [place] [address] Advice Allergies No known active allergiesdocumented as of this encounter (statuses as of 03/27/2024) Medications Medication Sig Dispensed Refills Start Date End Date Status 19 29-1 MG Oral Tablet Chewable Take by mouth. Active Ibuprofen 600 MG Oral Tablet (Motrin) Take 1 Tablet by mouth every 6 hours as needed (pain). 11/02/2023 Active Ondansetron 4 MG Oral Tablet Disintegrating (Zofran) Place 1 Tablet on tongue every 6 hours as needed for Nausea. 12/25/2023 01/24/2024 Discontinued (End of Procedure) documented as of this encounter (statuses as of 03/27/2024) Active Problems Problem Noted Date Diagnosed Date [...] and folate levels and referral to a shoer. If hemoglobin levels are below 8 g/dl, we recommend Maternal Medicine ultrasound for growth every 4 weeks after 24 weeks. Consider a blood transfusion if hemoglobin levels fall below 6 g/dL. ([employer] Practice Bulletin Number 95, December,). Consider Venofer [...] as of this encounter (statuses as of 03/27/2024) Resolved Problems Problem Noted Date Diagnosed Date Resolved Date Abnormal glucose tolerance i n mother complicating 04/19/2023 08/31/2023 Overview: Failed early glucola. 3hr GTT ordered documented as of this encounter (statuses as of 03/27/2024) Immunizations Name Administration Dates Next Due DTP [...] encounter Miscellaneous Notes * Telephone Encounter - Jimmy Owusu OSA - 12/27/2023 5:59 PM EDT Please call patient back and review lab results with her. Thank you. documented in this encounter Plan of Treatment Upcoming Encounters Date Type Department Care Team (Late st Contact Info) Description 04/07/2024 8:30 AM EDT Office Visit Gynecology/Obstetrics [facility] [address] [place] [address] Kina Capps PA-C [address] [place] [address] 04/15/2024 10:00 AM EDT Telemedicine Eligio Olsen [address] [facility] [address] Lisa Acevedo LCSW [address] [place] [id number] 05/12/2024 10:00 AM EST Office Visit Family [facility] [address] [place] [address] Malinda Owens CRNP [address] [place] [address] Health Maintenance Due Date Last Done Comments [...] this encounter Medical Devices Implanted Type Area Newsagent Device Identifier Shelf Expiration Date Model / Serial / Lot Stent Kev 4fr 11cm - [id number] Implanted:Qty: 1 on 02/08/2024 by Jeffrey Kerr MD at OR [facility] [employer] [facility] [id number] 08/16/2028 [id number] / / [id number] documented as of this encounter Care Teams Life Science Teacher Relationship Specialty Start Date End Date Malinda Owens CRNP [address] [place] [address] PCP - General Nurse Practitioner 09/20/23 documented as of this encounter
--- OUTSIDE RECORDS SUMMARY | 2024-09-05 14:47 | External Medical Summary | Summary of Care ---
Author Name Unknown Organization [facility] Address [address] [place] [address] Phone [phone] Care Team Providers Care Software Engineer Sales Name Role Phone Malinda Owens Primary Care Provider [phone] Reason for Visit * Reason Onset Date Comments Order Request 04/09/2024 Encounter Details Date Type Department Care Team (Late st Contact Info) Description 04/09/2024 Telephone Radiology [facility] [address] [place] [address] Kina Capps PA-C [address] [place] [address] Order Request Allergies No known active allergiesdocumented [...] and folate levels and referral to a dough sheeter. If hemoglobin levels are below 8 g/dl, we recommend Maternal Medicine ultrasound for growth every 4 weeks after 24 weeks. Consider a blood transfusion if hemoglobin levels fall below 6 g/dL. ([employer] Field Processing Supervisor Practice Bulletin Number 95, December,). Consider [...] to get more. Never true 03/26/2024 [place] Depression Scale Answer Date Recorded [place] Depression Scale Total 6 12/11/2023 The thought [...] in target, If tomorrow [facility] in [place]. * Telephone Encounter - Kina Capps PA-C [...] Description 04/15/2024 10:30 AM EDT Imaging Radiology [facility] [address] [facility] [place] [address] 04/15/2024 10:30 AM EDT Imaging Radiology [facility] 1st Floor, [place] [address] [facility] [place] [address] 05/12/2024 10:00 AM EST Office Visit Family Practice [facility] [address] [facility] [place] [address] Malinda Owens CRNP [address] [place] [address] Scheduled Orders Name Type Priority Associated Diagnoses [...] this encounter Medical Devices Implanted Type Area Communications Media Professor Device Identifier Shelf Expiration Date Model / Serial / Lot Stent Kev 4fr 11cm - [id number] Implanted:Qty: 1 on 02/08/2024 by Jeffrey Kerr MD [facility] [id number] 08/16/2028 [id number] / / [id number] documented as of this encounter Visit Diagnoses Diagnosis Mass of left breast, unspecified quadrant- Primary Abnormal finding on breast imaging Other (abnormal) findings on radiological examination of breast documented in this encounter Care Teams Software Engineer Sales Relationship Specialty Start Date End Date Malinda Owens CRNP 132 [facility] [place] [address] PCP - General Nurse Practitioner 09/20/23 documented as of this encounter
--- OUTSIDE RECORDS SUMMARY | 2024-09-05 14:47 | External Medical Summary | Summary of Care ---
Author Name Unknown Organization [facility] Address [address] [facility] [place] [address] Phone [phone] Care Team Providers Care Mechanic'S Assistant Name Role Phone Malinda Owens Primary Care Provider [phone] Reason for Visit * Reason Comments NEW PATIENT Encounter Details Date Type Department Care Team (Late st Contact Info) Description 03/26/2024 9:00 AM EDT Telemedicine Psychology, [place] [address] [place] [address] Lisa Acevedo [facility] [address] [place], [place] [phone] Adjustment disorder with anxious mood* Allergies No known active allergiesdocumented as of this encounter (statuses as of 03/26/2024) Medications Medication Sig Dispensed Refills Start Date End Date Status 19 29-1 MG Oral Tablet Chewable Take by mouth. Active Ibuprofen 600 MG Oral Tablet (Motrin) Take 1 Tablet by mouth every 6 hours as needed (pain). 11/02/2023 Active documented as of this encounter (statuses as of 03/26/2024) Active Problems Problem Noted Date Diagnosed Date [...] and folate levels and referral to a document restorer. If hemoglobin levels are below 8 g/dl, we recommend Maternal Medicine ultrasound for growth every 4 weeks after 24 weeks. Consider a blood transfusion if hemoglobin levels fall below 6 g/dL. ([employer]ians [employer] Student Affairs Dean Practice Bulletin Number 95, December,). Consider Venofer [...] as of this encounter (statuses as of 03/26/2024) Resolved Problems Problem Noted Date Diagnosed Date Resolved Date Abnormal glucose tolerance i n mother complicating 04/19/2023 08/31/2023 Overview: Failed early glucola. 3hr GTT ordered documented as of this encounter (statuses as of 03/26/2024) Immunizations Name Administration Dates Next Due DTP [...] money to get more. Never true 03/26/2024 [place] Depression Scale Answer Date Recorded [place] Depression Scale Total 6 12/11/2023 The thought [...] as of this encounter Progress Notes * Lisa Acevedo, SOLE STAINER - 03/26/2024 9:19 AM EDT Primary Care Behavioral Health Evaluation [facility], [address] [address] Patient location: HOME. I was in a hospital or clinic location. After connecting through televideo,patient was verified with two unique identifiers. Patient (or authorized legal business services representative) was then informed that this was a Telemedicine visit and being conducted confidentially over secure lines. Methods to assure confidentiality were taken. Patient acknowledged consent and understanding of pr ivacy and security of the Telemedicine visit. The patient agreed to participate. Provider determined this patient has capacity to receive and benefit from telehealth services. Face to Face Start Time: 9:17am Face to Face Stop Time: 10:14am Referral Source: Self Risk Assessment: [place] Suicide Severity Rating Scale Results 03/26/2024 09:55 [place] SUICIDE SEVERITY RATING SCALE (C-SSRS) Have you wished you were or wished you could go to sleep and not wake up? (In the Past Month or Since Last Visit) No Have you had any actual thoughts of killing yourself? (In the Past Month or Since Last Visit) No Have you been thinking about how you might do this? (In the Past Month or Since Last Visit) No Have you had thoughts and had some intention of acting on them? (In the Past Month or Since Last Visit) No Have you started to work out or worked out the details of how to kill yourself? Do you intend to carry out this plan? (In the Past Month or Since Last Visit) No Have you ever done anything, started to do anything, or prepared to do anything to end your life? (Lifetime) No Was this within the past 3 months? No Level of Risk No Risk Identified History of Present Illness: Yuli Gutierrez is a 29 year old female who was referred for assessment and possible treatment of Anxiety ; behavioral health provider reviewed chart and coordinated care for this evaluation via the following methods: all [facility] providers have immediate access to information in the medical record to enable collaboration across the continuum. Yuli Gutierrez was identified by first and last name and date of . Primary language of patientwas Kazakh. Yuli Gutierrez arrived on time for her scheduled appointment. She was seen by herself throughout the duration of the evaluation. Informed consent, limits of confidentiality, the consultative nature of the first visit, and documentation in the electronic record were reviewed. Presenting Symptoms: Yuli reports that she is seeking treatment for intrusive thoughts about something happening to hernewborn daughter. Yuli reports that the thoughts involve someone else doing something to her daughter, something that is out of her control, and the thoughts come on out of no where. Yuli reports being a new mom and experiencing some general worries that are normal but these thoughts are described as "heavy". Thoughts are sudden and described as "very scary". Yuli reports having baby five months ago. Worries started within the first few weeks of babies' life. Intrusive thoughts and images started a couple weeks ago. Yuli reports that prior to baby she would describe herself as an over thinker but nothing that caused impairment or emotional distress. Yuli also was a worrier. During , Ylui was worried about losing baby because of a prior miscarriage. In the beginning of anxiety was high till she could feel baby move and then anxiety went down. Yuli identifies having mental exhaustion, having trouble concentrating, feeling nervious, anxious, has trouble relaxing, easily irritable and feeling afraid as if something awful might happen to the baby. Worries at this time include worries about the babies safety and getting sick. Yuli is currently and is not on any medications. Yuli denies any prior history of mental health treatment. Yuli statesthat she is not an immediate threat to herself or anyone else at this time. Began talking to Yuli about post anxiety- Provided a resource on it Provided education on CBT and how CBT works to address anxiety Provided education on mindfulness and grounding techniques. Provided education on worry and ways to challenge worry through asking self what facts and thinkingthrough to what Yuli has control over in response to anxiety thoughts. Symptoms: Onset: Duration: Frequency of symptoms: Additional Factors to Consider in Treatment: Exercise: none Eating behaviors/diet: no concerns Has been losing weight with breast feeding and gallstones Sleep: Good, no complaints Medication Adherence: NA Psychiatry Review of Systems: PSYCHIATRY REVIEW OF SYSTEMS Pain screening: Is patient experiencing any pain related to today's visit? No Nutritional Screening: No concerns Past Psychiatric History: Outpatient Treatment: None Inpatient Treatment: None Self injury and suicide attempts: None Prior psychotropic medical trials: None History of trauma, abuse, exploitation or trafficking: Physical Labour Significant tear and hemmoriging Substance Use History: Caffeinated beverages: Coffee daily- 2-3 cups Tobacco: Denied Vaping: Denied Alcoholic beverages: Once every couple weeks. Marijuana: Denied Illicit Drugs: Denied Family Psychiatric History: Psychiatric diagnoses: Dad Bipolar Depressed , Sister form of anxiety Attempted suicides/ by suicide:None Drug and alcohol abuse: Dad alcohol abuse Personal, Family and Social History: Living situation: and daughter. Relationship is described as "good". Growing up lived with biological mother. A sister who Yuli saw on the weekends. Childhood was good with mom and siblings.Dad was in and out of [facility] due to DUIs. Home life was really good. Interactions with dad were positive and good. Parents at one or 2 Education/Employment: Bachelors. Situational anxiety. Particularly with social situations, if people liked her or not, job performance and worries about mom History: None Legal History: None Intellectual Disability Diagnosis: No Activities of Daily Living: Good Additional community service involvement: None Leisure and recreational interest: Spending time with family, making jewelry, and playing guitar Samaritan/Spiritual Orientation: None Mental Status Evaluation: Appearance: Well groomed, casually dressed, appearing stated age Abnormal Movement: No abnormal movements noted Behavior: Calm, cooperative and appropriate Speech and Language: Normal in rate, rhythm, volume and tone Mood: Euthymic Affect: Appropriate to context and mood-congruent Thought Process: Logical, linear and goal directed Thought Content: No abnormal thought content Hallucinations: No perceptual disturbances Suicidality: No suicidal ideations, intent, method or plan or passive wish Homicidality: No homicidal ideations, intent, plan or target Orientation: Oriented to self, time, place and circumstances Attention: Intact Recent and Remote memory:Intact Insight: Good Judgement: Good Fund of Knowledge: Good Assessment/Formulation: Patient has been experiencing symptoms of anxiety, of note and is prescribed/taking NA, of note. Patient is seeking therapy services for anxiety and has identified therapy goals of managing and improving intrusive thoughts Relevant Stressors: current stressors include: financial, adjusting to becoming parents Diagnosis: ICD-10-CM 1. Adjustment disorder with anxious mood F43.22 Rule out of IGNACIO and or OCD Plan: Therapy: Patient will receive a brief course of behavioral health treatment with Primary Care Behavioral Health. Community Resources:NA Medication Management: NA Return in:2 weeks. Had to schedule three weeks out Scheduling Preference for Appointments: Video Adult [facility] Therapy Treatment Plan Treatment plan was developed on 03/26/2024, treatment will continue to focus on goals below; Treatment update will occur when clinically indicated or by 09/22/2024. Reasons for deferring a goal or the objectives leading toward or related to a goal are documented in the progress note. Patient received copy of treatment plan: Yes, sent via [email or web address] Patient's strengths and facilitating factors to care: Recognizes need for change, Goal Oriented, Has hobbies, Good support system, Steady employment, Cooperative, and Other: articulates well Individuals responsible for carrying out plan: Patient Expected family or significant other involvement: Not applicable Treatment Barriers: none identified Crisis planning: What I can do if I ever experience a crisis (much worse symptoms, severe distress or thoughts of self-harm): Playing guitar , Spending time with daughter People I can call in the event of a crisis: Parent: mom and Spouse/partner/significant other: Additional resources I can utilize if the previous steps are ineffective (e.g: ED, hotlines): [facility] Crisis Contact Estimated frequency of treatment Estimated duration Estimated Completion Type of Service Interventions approximately every 2-4 weeks 8-11 sessions 6 months Individual Cognitive Behavioral Therapy (CBT),which includes psychoeducation, cognitive restructuring, relaxation/diaphragmatic breathing, problem-solving, and behavioral activation and Acceptance & Commitment Therapy (ACT), including acceptance, cognitive defusion, being present, values, and committed action Patient was asked to rate how big of a problem each target symptom is, from 0 (not at all a problem) to 10 (a huge problem) Patient identified Goals/Needs "To have some coping mechanisms or medicine to help when these thoughts come" Objective/Discharge Criteria Need 1: Reduce symptoms of depression and anxiety as measured by the PHQ-9 and IGNACIO-7 (see below) IGNACIO<5 and reducing intrusive thoughts Please choose a method to track patient's improvement based on clinical assessment: Date 03/26/24 PHQ 4 IGNACIO-7 11 #9 0 Discharge Discussed with patient: Patient is not ready for discharge Is this the patients' initial treatment plan? Yes [facility] is committed to coordinated care through an integrated delivery system and shared medicalrecord. Since our patients are seen both in primary care and behavioral health (as well as other specialties), each provider has immediate access to information to enable collaboration across the continuum. Treatment options and recommendations/interventions reviewed. Patient and/or caregiver verbalize understanding and agrees to plan with explanation of risks/benefits, aware of how to contact clinic with questions. documented in this encounter Plan of Treatment Upcoming Encounters Date Type Department Care Team (Late st Contact Info) Description 04/07/2024 8:30 AM EDT Office Visit Gynecology/Obstetrics [facility] [address] [place] [address] Kina Capps PA-C [address] [place] [address] 04/15/2024 10:00 AM EDT Telemedicine Eligio Olsen [address] [place] [address] Lisa Acevedo LCSW 21 [facility] [place] [address] 05/12/2024 10:00 AM EST Office Visit Family [facility] [address] [place] [address] Malinda Owens CRNP [address] [place] [address] Health Maintenance Due Date Last Done Comments [...] this encounter Medical Devices Implanted Type Area Upper Leather Cutter Device Identifier Shelf Expiration Date Model / Serial / Lot Therese Angulo 4fr 11cm - [id number] Implanted:Qty: 1 on 02/08/2024 by Jeffrey Kerr MD at OR [facility] [employer] [facility] [id number] 08/16/2028 [id number] / / [id number] documented as of this encounter Visit Diagnoses Diagnosis Adjustment disorder with anxious mood- Primary Adjustment disorder with anxiety documented in this encounter Care Teams Mechanic'S Assistant Relationship Specialty Start Date End Date Malinda Owens CRNP [address] [place] [address] PCP - General Nurse Practitioner 09/20/23 documented as of this encounter
--- OUTSIDE RECORDS SUMMARY | 2024-09-05 14:47 | External Medical Summary | Summary of Care ---
Author Name Unknown Organization [facility] Address [address] [place] [facility] [place] [address] Phone [phone] Care Team Providers Care Knife Finisher Name Role Phone Malinda Owens Primary Care Provider [phone] Reason for Visit * Reason Onset Date Comments Test Results 12/28/2023 Encounter Details Date Type Department Care Team (Late st Contact Info) Description 12/28/2023 Telephone Family Practice [facility] [address] [place] [address] Malinda Owens CRNP [address] [place] [id number] Test Results Allergies No known active allergiesdocumented as of this encounter (statuses as of 03/28/2024) Medications Medication Sig Dispensed Refills Start Date [...] as of this encounter (statuses as of 03/28/2024) Active Problems Problem Noted Date Diagnosed Date [...] and folate levels and referral to a collections technician. If hemoglobin levels are below 8 g/dl, we recommend Maternal Medicine ultrasound for growth every 4 weeks after 24 weeks. Consider a blood transfusion if hemoglobin levels fall below 6 g/dL. ([employer] Obst[employer]ians and Chief Ultrasound Technologist Practice Bulletin Number 95, December,). Consider Venofer [...] as of this encounter (statuses as of 03/28/2024) Resolved Problems Problem Noted Date Diagnosed Date Resolved Date Abnormal glucose tolerance i n mother complicating 04/19/2023 08/31/2023 Overview: Failed early glucola. 3hr GTT ordered documented as of this encounter (statuses as of 03/28/2024) Immunizations Name Administration Dates Next Due DTP [...] money to get more. Never true 03/26/2024 [place] Depression Scale Answer Date Recorded [place] Depression Scale Total 6 12/11/2023 The thought [...] encounter Miscellaneous Notes * Telephone Encounter - Dorothy Botello MED ASSIST - 12/28/2023 12:38 PM EDT Please review other encounter -- Dr. Rodriguez waiting on records it looks like. * Telephone Encounter - Ofelia Michaud OSA - 12/28/2023 10:57 AM EDT Pt. Called and would like to know if a nurse can call her to discuss her Blood result. documented in this encounter Plan of Treatment Upcoming Encounters Date Type Department Care Team (Late st Contact Info) Description 04/07/2024 8:30 AM EDT [facility] [address] [place] [address] Kina Capps PA-C [address] [place] [address] 04/15/2024 10:00 AM EDT Telemedicine Psychology, [place] [address] [place] [address] Lisa Acevedo, CASSIE [address] [facility] [place] [id number] 05/12/2024 10:00 AM EST Office Visit [facility] [address] [facility] [place] [address] Malinda Owens CRNP [address] [place] [address] Health Maintenance Due Date Last Done Comments [...] this encounter Medical Devices Implanted Type Area Rubber Heel And Sole Press Tender Device Identifier Shelf Expiration Date Model / Serial / Lot Therese Angulo 4fr 11cm - [id number] Implanted:Qty: 1 on 02/08/2024 by Jeffrey Kerr MD at OR [facility] [employer] [facility] [id number] 08/16/2028 [id number] / / [id number] documented as of this encounter Care Teams Knife Finisher Relationship Specialty Start Date End Date Malinda Owens CRNP [address] [place] [address] PCP - General Nurse Practitioner 09/20/23 documented as of this encounter
--- OUTSIDE RECORDS SUMMARY | 2024-09-05 14:47 | External Medical Summary | Summary of Care ---
Author Name Unknown Organization [facility] Address [address] [place] [address] Phone [phone] Care Team Providers Care Oil Sprayer Name Role Phone Malinda Owens Primary Care Provider [phone] Reason for Visit * Reason Comments Car Varnisher Return Encounter Details Date Type Department Care Team (Late st Contact Info) Description 04/07/2024 8:30 AM EDT Office Visit Gynecology/Obstetric s Shanna Topete [address] [place] [address] Kina Capps PA-C [address] [place] [address] Vaginal irritation*; Breast lump on left side at 3 o'clock position Allergies No known active allergiesdocumented as of this encounter (statuses as of 04/07/2024) Medications Medication Sig Dispensed Refills Start Date End Date Status 19 29-1 MG Oral Tablet Chewable Take by mouth. Active Ibuprofen 600 MG Oral Tablet (Motrin) Take 1 Tablet by mouth every 6 hours as needed (pain). 11/02/2023 Active documented as of this encounter (statuses as of 04/07/2024) Active Problems Problem Noted Date Diagnosed Date [...] and folate levels and referral to a cpr instructor. If hemoglobin levels are below 8 g/dl, we recommend Maternal Medicine ultrasound for growth every 4 weeks after 24 weeks. Consider a blood transfusion if hemoglobin levels fall below 6 g/dL. ([employer] [facility] [facility] Bulletin Number 95, December,). Consider Venofer [...] as of this encounter (statuses as of 04/07/2024) Resolved Problems Problem Noted Date Diagnosed Date Resolved Date Abnormal glucose tolerance i n mother complicating 04/19/2023 08/31/2023 Overview: Failed early glucola. 3hr GTT ordered documented as of this encounter (statuses as of 04/07/2024) Immunizations Name Administration Dates Next Due DTP [...] money to get more. Never true 03/26/2024 [place] Depression Scale Answer Date Recorded [place] Depression Scale Total 6 12/11/2023 The thought [...] Sign Reading Time Taken Comments Blood Pressure 106/60 04/07/2024 8:39 AM EDT Pulse - - Temperature - - Respiratory Rate - - Oxygen Saturation - - Inhaled Oxygen Concentration - - Weight 86.7 kg (191 lb 3.2 oz) 04/07/2024 8:39 A M EDT Height - - Body Mass Index 28.24 02/08/2024 12:02 PM EDT documented in this encounter Progress Notes * Kina Capps PA-C - 04/07/2024 8:42 AM EDT SUBJECTIVE: Chief Complaint Patient presents with Car Varnisher Return HPI: 29 year old female here for vaginal pain with intercourse and left breast lump. Patient s/p on 10/30/2023. Had 3rd degree perineum laceration. Pain improved at time of PP appointment. Had resumed intercourse. Pt states since resuming intercourse having vaginal stinging sensation. Maybe worse the further partner penetrates. Denies vaginal itching, burning, or discharge. Denies fever, chills. Left breast lump on outside of breast noticed 1 days ago. Unsure how long present. Not painful, hasnot changed since first noticing it. No bloody nipple discharge or skin changes. Pt is . Pumps about 4 times a day. Pt states changed pump about 2 weeks ago. Her left breast generally generates about 2 ounces more of breastmilk compared to right in the morning. Medications: Current Outpatient Medications Medication Sig Dispense Refill 19 29-1 MG Oral Tablet Chewable Take by mouth. (Patient not taking: Reported on 04/07/2024) Ibuprofen 600 MG Oral Tablet (Motrin) Take 1 Tablet by mouth every 6 hours as needed (pain). (Patient not taking: Reported on 04/07/2024) No current facility-administered medications for this visit. Allergies: Review of patient's allergies indicates: No Known Allergies Patient Active Problem List Diagnosis Encounter for supervision of other normal , unspecified trimester Class 1 obesity due to excess calories without serious comorbidity with body mass index (BMI) of 33.0 to 33.9 in adult Antepartum anemia complicating Iron deficiency anemia Excessive growth affecting management of mother, antepartum Diet controlled gestational diabetes mellitus (GDM) in third trimester Past Medical History: Diagnosis Date History of gestational diabetes Motion sickness OB History Para Term AB Living 2 1 1 0 1 1 SAB IAB Ectopic Multiple Live Births 0 0 0 0 1 # Outcome Date GA Lbr Joe/2nd Weight Sex Type Anes PTL Lv 2 Term 10/30/23 39w4d 3.87 kg (8 lb 8.5 oz) F Vag-Spont N IMANI Comments: 3rd degree lac Complications: GDM (gestational diabetes mellitus), Excessive growth affecting management of mother in third trimester, antepartum 1 AB 01/20/23 SPONTANEOUS Past Surgical History: Procedure Laterality Date DENTAL SURGERY PROCEDURE NEC Age 12 ERCP, DIAGNOSTIC, SPECIMEN COLLECTION N/A 02/08/2024 ENDOSCOPIC RETROGRADE CHOLANGIOPANCREATOGRAPHY (ERCP) DIAGNOSTIC performed by Jeffrey Kerr MD at OR [facility] Family History Problem Relation Name Age of Onset No Known Problems Mother Diabetes Father Colon cancer Grandmother (Maternal) Other (old age) Grandfather (Maternal) Heart attack Grandfather (Paternal) Review of Systems: CONSTITUTIONAL ROS: No change in weight, No fevers, sweats, or chills CARDIOVASCULAR ROS: No chest pain, No shortness of breath BREAST ROS: See HPI GASTROINTESTINAL ROS: No abdominal pain, No change in bowel habits, No nausea, vomiting, diarrhea, or constipation. GENITO-URINARY FEMALE ROS: See HPI. No STDs, no dysuria, no irregular menstruation, No urgency and no vaginal discharge MSK/EXTREMITIES ROS: No pain, redness or swelling on the joints OBJECTIVE: BP 106/60 | Wt 86.7 kg (191 lb 3.2 oz) | Yes | BMI 28.24 kg/m | BSA 2.05 m General: awake, alert, and oriented x 3, normal affect, no acute distress Breasts: no skin changes, no nipple retraction or dimpling, no nipple discharge or bleeding, no axillary or supraclavicular lymphadenopathy, normal to palpation without dominant masses of right breast, left breast lump approx 3 oclock that is firm mobile, approx 1 inch round and non tender External Genitalia/Vulva: anatomy is normal, no significant redness of labia, no discharge on vulvar tissues, ulcers are absent, no condylomatous lesions Vagina: vaginal tissues are not inflamed, mild atrophy noted particularly in posterior portion of cervix, pt uncomfortable with stinging sensation with insertion of speculum, clear vaginal discharge present Cervix: without lesions, no cervicitis, no discharge from os, no cervical motion tenderness. Uterus: normal size, normal shape, mobile, non-tender. Adnexa: no adnexal masses, non-tender bilaterally Peritoneal Dialysis Registered Nurse Documentation Provider requested international project engineer. Name of international project engineer: Jessica Small MA ASSESSMENT/PLAN: Vaginal irritation (Primary) Reviewed if vaginosis positive with send treatment -- if symptoms persist after treatment advised trial of vaginal estrogen given exam and status. Pt agreeable to plan. - VAGINOSIS PANEL, PCR; Future; Expected date: 04/07/2024 - VAGINOSIS PANEL, PCR Breast lump on left side at 3 o'clock position New to patient in last day. Unsure how long present. She is , recently changed pump. Offered expectant management if doesn't resolve in next 2-3 days contact clinic vs imaging. Pt states prefers to start with imaging. As she can feel lump, if resolves completely -- pt states will likely not move forward with imaging. - US BREAST LIMITED LEFT; Future; Expected date: 04/07/2024 - MAMMOGRAM DIAGNOSTIC LEFT; Future; Expected date: 04/07/2024 Follow Up: Return if symptoms worsen or fail to improve, for Clinic Visit. | For: Clinic Visit | Check-out note: Please schedule breast imaging Kina Capps PA-C documented in this encounter Nursing Notes * Jessica Small CMA - 04/07/2024 8:39 AM EDT Patient present today for pain with intercourse since delivery and lump in left breast. Stinging feeling with intercourse. Since 8 weeks post . documented in this encounter Plan of Treatment Upcoming Encounters Date Type Department Care Team (Late st Contact Info) Description 04/09/2024 8:30 AM EDT Imaging Radiology [address] [facility] [place] [address] 04/09/2024 9:00 AM EDT Imaging Radiology [facility] [address] [facility] [place] [address] 04/15/2024 10:00 AM EDT Telemedicine [facility] [place] [address] [place] [id number] Lisa Acevedo LCSW [address] [place] [address] 05/12/2024 10:00 AM EST Office Visit Family Practice [facility] [address] [facility] [place] [address] Malinda Owens CRNP 132 [facility] [place] [address] Pending Results Name Type Priority Associated Diagnoses Date /Time VAGINOSIS PANEL, PCR Lab Routine Vaginal irritation 04/07/2024 9:06 AM EDT Scheduled Orders Name Type Priority Associated Diagnoses Orde r Schedule VAGINOSIS PANEL, PCR Lab Routine Vaginal irritation Expected: 04/07/2024, Expires: 04/07/2025 US BREAST LIMITED LEFT Medical Imaging Routine Breast lump on left side at 3 o'clock position Expected: 04/07/2024, Expires: 05/08/2025 MAMMOGRAM DIAGNOSTIC LEFT Medical Imaging Routine Breast lump on left side at 3 o'clock position Expected: 04/07/2024, Expires: 05/08/2025 Health Maintenance Due Date Last Done Comments [...] this encounter Medical Devices Implanted Type Area Scout Professional Sports Device Identifier Shelf Expiration Date Model / Serial / Lot Stent Kev 4fr 11cm - [id number] Implanted:Qty: 1 on 02/08/2024 by Jeffrey Kerr MD at OR [facility] [employer] [facility] [id number] 08/16/2028 [id number] / / [id number] documented as of this encounter Visit Diagnoses Diagnosis Vaginal irritation- Primary Unspecified noninflammatory disorder of vagina Breast lump on left side at 3 o'clock position Lump or mass in breast documented in this encounter Care Teams Oil Sprayer Relationship Specialty Start Date End Date Malinda Owens CRNP [address] [place] [address] PCP - General Nurse Practitioner 09/20/23 documented as of this encounter
--- OUTSIDE RECORDS SUMMARY | 2024-09-05 14:47 | External Medical Summary | Summary of Care ---
Author Name Unknown Organization [facility] Address [address] [place] [address] Phone [phone] Care Team Providers Care Sample Book Maker Name Role Phone Malinda Owens Primary Care Provider [phone] Reason for Visit * Reason Onset Date Comments Appointment 04/04/2024 Encounter Details Date Type Department Care Team (Late st Contact Info) Description 04/04/2024 Telephone Eligio Olsen [address] [employer] [address] [place] [address] Lisa Acevedo [facility] [address] [place] [address] Appointment Allergies No known active allergiesdocumented as of this encounter (statuses as of 04/04/2024) Medications Medication Sig Dispensed Refills Start Date End Date Status 19 29-1 MG Oral Tablet Chewable Take by mouth. Active Ibuprofen 600 MG Oral Tablet (Motrin) Take 1 Tablet by mouth every 6 hours as needed (pain). 11/02/2023 Active documented as of this encounter (statuses as of 04/04/2024) Active Problems Problem Noted Date Diagnosed Date Diet controlled gestational diabetes mellitus (GDM) in third trimester 09/20/2023 Overview: 09/20/23 Repeated 3hr GTT at 33w d/t LGA, failed. MFM referral placed for ADAPT. Diagnosed at 33 weeks Nutrition consult 09/24/23 Lab Results Component Value Date/Time 50-G GESTATIONAL GLUCOSE, 1 HOUR - [facility] 169 (H) 04/19/2023 09:23 AM 100-G GESTATIONAL GLUCOSE, 1 HOUR - [facility] 216 (H) 09/19/2023 01:52 PM 100-G GESTATIONAL GLUCOSE, 2 HOUR - [facility] 258 (H) 09/19/2023 02:54 PM 100-G GESTATIONAL GLUCOSE, 3 HOUR - [facility] 139 09/19/2023 03:51 PM 100-G GESTATIONAL GLUCOSE, FASTING - [facility] 74 09/19/2023 12:54 PM 09/21/23: MFM ADAPT consult complete. Enrolled in Current Health. Plans to clam picker meter from pharmacy today. Instructions provided [...] and folate levels and referral to a hairspring setter. If hemoglobin levels are below 8 g/dl, we recommend Maternal Medicine ultrasound for growth every 4 weeks after 24 weeks. Consider a blood transfusion if hemoglobin levels fall below 6 g/dL. ([employer] [facility] Bulletin Number 95, Martha, 2008). Consider Venofer transfusions if patient labs supportive [...] as of this encounter (statuses as of 04/04/2024) Resolved Problems Problem Noted Date Diagnosed Date Resolved Date Abnormal glucose tolerance i n mother complicating 04/19/2023 08/31/2023 Overview: Failed early glucola. 3hr GTT ordered documented as of this encounter (statuses as of 04/04/2024) Immunizations Name Administration Dates Next Due DTP [...] money to get more. Never true 03/26/2024 [place] Depression Scale Answer Date Recorded [place] Depression Scale Total 6 12/11/2023 The thought [...] Miscellaneous Notes * Telephone Encounter - Lisa Acevedo LCSW - 04/04/2024 1:07 PM EDT Therapist contacted patient offering a sooner appointment date and time for April 09 at 11:00m.Voicemail was left documented in this encounter Plan of Treatment Upcoming Encounters Date Type Department Care Team (Late st Contact Info) Description 04/07/2024 8:30 AM EDT Office Visit Gynecology/Obstetrics [facility] [address] [place] [address] Kina Capps PA-C 132 [facility] [place] [address] 04/15/2024 10:00 AM EDT [facility]medicine [facility] [address] Lisa Acevedo LCSW [address] [place] [address] 05/12/2024 10:00 AM EST Office Visit Family Practice [facility] [address] [place] [address] Malinda Owens CRNP [address] [place] [address] Health Maintenance Due Date Last Done Comments [...] this encounter Medical Devices Implanted Type Area Screen Printing Supervisor Device Identifier Shelf Expiration Date Model / Serial / Lot Stent Kev 4fr 11cm - [id number] Implanted:Qty: 1 on 02/08/2024 by Jeffrey Kerr MD at OR [facility] [email or web address] [facility] [id number] 08/16/2028 [id number] / / [id number] documented as of this encounter Care Teams Sample Book Maker Relationship Specialty Start Date End Date Malinda Owens CRNP [address] [place] [address] PCP - General Nurse Practitioner 09/20/23 documented as of this encounter
[2024-09-05] MEDS: ACETAMINOPHEN 325 MG TAB PO PRN (16:38)
[2024-09-05] MEDS: ONDANSETRON INJ 2 MG/ML 2 ML VIAL IV PRN (16:38)
--- NOTE | 2024-09-05 20:34 | Electrocardiogram Report ---
Test Reason : Blood Pressure : */* mmHG Vent. Rate : 117 BPM Atrial Rate : 117 BPM P-R Int : 158 ms QRS Dur : 84 ms QT Int : 340 ms P-R-T Axes : 49 32 68 degrees QTcB Int : 474 ms Sinus tachycardia Nonspecific ST abnormality Abnormal ECG No previous ECGs available Confirmed by Henry Romero ([id number]) on 09/05/2024 8:33:51 PM Referred By: Confirmed By: Henry Romero
[2024-09-05] MEDS: OLANZapine 5 MG TABLET PO SCH (21:28)
[2024-09-05] MEDS: VANCOMYCIN HCL 1,500 MG in SODIUM CHLORIDE 0.9% 500 ML IV SCH (23:53)
--- OUTSIDE RECORDS SUMMARY | 2024-09-06 05:40 | External Medical Summary ---
Author Name Unknown Address Unknown Organization K[facility] [place] [address] Laboratory Report Ordering Provider Test Date Status JASMINE JANSEN 09/05/2024 09:10:25 Final Observation Date Value Abnormality Reference (Units ) Status BUN 09/05/2024 09:10:25 11 6-20 (mg/dL) Final Creatinine 09/05/2024 09:10:25 0.9 0.5-1.0 (mg/dL) Final Glomerular filtration rate/1.73 sq M.predicted [Volume Rate/Area] in Serum, Plasma or Blood by Creatinine-based formula (CKD-EPI) 09/05/2024 09:10:25 89 >=60 (mL/min) Final eGFR is calculated based on the CKD-EPI 2020 equation. Sodium 09/05/2024 09:10:25 132 Below low normal 135 -146 (mmol/L) Final Potassium 09/05/2024 09:10:25 3.8 3.5-5.1 (m mol/L) Final Cl 09/05/2024 09:10:25 99 98-107 (mm ol/L) Final CO2 09/05/2024 09:10:25 20 Below low normal 22- 32 (mmol/L) Final Anion gap 09/05/2024 09:10:25 13 7-15 (mmol /L) Final Glucose 09/05/2024 09:10:25 92 70-120 (mg /dL) Final Albumin 09/05/2024 09:10:25 4.0 3.8-5.0 (g /dL) Final AST (Aspartate aminotransferase) 09/05/2024 09:10:25 14 10-35 (U/L) Fin al Alk Phos 09/05/2024 09:10:25 72 35-130 (U/ L) Final Bilirubin, Total 09/05/2024 09:10:25 0.7 <=1 .2 (mg/dL) Final Calcium 09/05/2024 09:10:25 9.2 8.4-10.2 ( mg/dL) Final Protein 09/05/2024 09:10:25 6.7 6.0-8.3 (g /dL) Final ALT (Alanine aminotransferase) 09/05/2024 09:10:25 13 10-35 (U/L) [facility]if[place] [email or web address] Performing Location [facility] [address] [place] [address]
--- OUTSIDE RECORDS SUMMARY | 2024-09-06 05:40 | External Medical Summary | Summary of Care ---
Author Name Unknown Organization [facility] Address [address] [place] [address] Phone [phone] Care Team Providers Care Universal Worker Assisted Living Name Role Phone Malinda Owens Primary Care Provider [phone] Reason for Visit * Reason Comments Medication Administration IV hydration/l abs Encounter Details Date Type Department Care Team (Latest Contact Info) Description 09/05/2024 9:00 AM EDT Hem/Onc Treatment Hematology/Oncology Treatment, [address] [phone] [place], Chair 3 Hem On[address] [address] Malignant neoplasm of upper-outer quadrant of left [...] and class I obesity. Per review of TRAP SETTER documentation of 09/25/23, blood glucose values [...] Recommend nutrition consult with RDN (Registered Dietitian Funnel Setter). Lifestyle changes are also indicated including [...] and folate levels and referral to a glove cuffer. If hemoglobin levels are below 8 g/dl, we recommend Maternal Medicine ultrasound for growth every 4 weeks after 24 weeks. Consider a blood transfusion if hemoglobin levels fall below 6 g/dL. ([employer] Practice Bulletin Number 95, December,). Consider [...] money to get more. 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 Patient pale, gait unsteady, weak and patient states she continues to have dizziness. Patient ambulated to chair 3, vitals obtained, temp 102.7 oral. HR 130, BP 86/40. Port accessed without difficulty, flushes easily, + blood return, labs drawn per Dr. Garvin request. Dressing applied. Alcohol cap applied. Dr. Maravilla assessed patient in treatment room, advised patient to go to the ERdue to fever. Patient agreeable, denies wanting to go by ambulance, [id number] with patient and states that she can drive her with assistance on getting patient in and out of the car with wheelchair. Charge Nurse at ER informed by Yuli Gallagher RN that patient was coming. Most recent labs and office note printed for patient. Assisted patient to car via wheelchair. documented in this encounter Plan of Treatment Upcoming Encounters Date Type Department Care Team (Late st Contact Info) Description 09/08/2024 9:30 AM EDT Imaging Radiology [address] [place] [address] 09/18/2024 11:00 AM EDT Nurse Only Hematology/[address], [address] [phone] [place], Chair 10 Hem Onc [address] [place] [address] 09/18/2024 12:00 PM EDT Office Visit Hematology/Oncology [address] [place] [phone] Gabby Zavala CRNP [address] [facility] [place] [address] 09/18/2024 12:30 PM EDT Hem/Onc Treatment Hematology/[address], [address] [phone] [place], Chair 6 Hem Onc [address] [place] [address] Pending Results Name Type Priority Associated Diagnoses Date /Time SOLUBLE TRANSFERRIN RECEPTOR Lab STAT Malignant neoplasm of upper-outer quadrant of left breast in female, estrogen receptor negative (HCC) 09/05/2024 9:10 AM EDT ADRENOCORTICOTROPIC HORMONE Lab STAT Malignant neoplasm of upper-outer quadrant of left breast in female, estrogen receptor negative (HCC) 09/05/2024 9:10 AM EDT CORTISOL Lab STAT Malignant neoplasm of upper-outer quadrant of left breast in female, estrogen receptor negative (HCC) 09/05/2024 9:10 AM EDT Health Maintenance Due Date Last Done [...] this encounter Medical Devices Implanted Type Area Solicitor Patent Device Identifier Shelf Expiration Date Model / Serial / Lot Stent Angulo 4fr 11cm - [id number] Implanted:Qty : 1 on 02/08/2024 by Jeffrey Kerr MD at OR [facility] [employer] [id number] 08/16/2028 [id number] / / [id number] Description:[email or web address]://www.doct [email or web address].biz/search/[email or web address]?[email or web address] JLS 09/04/2024 Non metallic Port Implant W8f Poly Cath - [id number] Implanted:Qty : 1 on 05/02/2024 by Iam Curry MD at OR [facility] Right: Chest CR BARD : PERIPHERAL VASCULAR [id number] 05/17/2025 [id number] / / [id number] documented as of this encounter Procedures Procedure Name Priority Date/Time Associated Diagnosis Comments DIFFERENTIAL, AUTOMATED STAT 09/05/2024 9:10 AM EDT Malignant neoplasm of upper-outer quadrant of left breast in female, estrogen receptor negative (HCC) COMPREHENSIVE METABOLIC PANEL STAT 09/05/2024 9:10 AM EDT Malignant neoplasm of upper-outer quadrant of left breast in female, estrogen receptor negative (HCC) CBC STAT 09/05/2024 9:10 AM EDT Malignant neoplasm of upper-outer quadrant of left breast in female, estrogen receptor negative (HCC) CBC STAT 09/05/2024 9:10 AM EDT Malignant neoplasm of upper-outer quadrant of left breast in female, estrogen receptor negative (HCC) DIFFERENTIAL, TECHNOLOGIST REVIEW Routine 09/05/2024 9:10 AM EDT Malignant neoplasm of upper-outer quadrant of left breast in female, estrogen receptor negative (HCC) documented in this encounter Results * (ABNORMAL) DIFFERENTIAL, TECHNOLOGIST REVIEW (09/05/2024 9:10 AM EDT) Pathologist [facility] nRBCs 09/05/2024 9:44 AM EDT [facility] 56-02 Reactive Lymphocytes Present(A ) None Seen 09/05/2024 9:44 AM EDT [facility] 56-02 Giant PLTs Present(A ) None Seen 09/05/2024 9:44 AM EDT [facility] 56-02 Blood Venous blood specimen / Unknown Venipuncture / Unknown 09/05/2024 9:10 AM EDT 09/05/2024 9:30 AM EDT Kanu Maravilla MD LAB BLOOD ORDERABLES Final Res ult [facility] 56-[address] [place] [address] * (ABNORMAL) DIFFERENTIAL, AUTOMATED (09/05/2024 9:10 AM EDT) Pathologist [facility] WBC 1.48(L) 4.00 - 10.80 K/uL 09/05/2024 9:44 AM EDT [facility] 56-02 Neutrophils % 0.6(L) 40.0 - 75.0 % 09/05/2024 9:44 AM EDT [facility] 56 Lymphocytes % 91.2(H) 18.0 - 42.0 % 09/05/2024 9:44 AM EDT [facility] 56 Monocytes % 4.1 1.0 - 11.0 % 09/05/2024 9:44 AM EDT [facility] 56 Eosinophils % 3.4 0.0 - 6.0 % 09/05/2024 9:44 AM EDT [facility] 56 Basophils % 0.7 0.0 - 2.0 % 09/05/2024 9:44 AM EDT [facility] 56 Absolute Neutrophils 0.01(L) 1.80 - 7.70 K/uL 09/05/2024 9:44 AM EDT [facility] Absolute Lymphocytes 1.35 1.00 - 4.80 K/ul 09/05/2024 9:44 AM EDT [facility] 56 Absolute Monocytes 0.06 0.00 - 1.10 K/uL 09/05/2024 9:44 AM EDT [facility] Absolute Eosinophils 0.05 0.00 - 0.70 K/uL 09/05/2024 9:44 AM EDT [facility] Absolute Basophils 0.01 0.00 - 0.20 K/uL 09/05/2024 9:44 AM EDT [facility] Blood Venous blood specimen / Unknown Venipuncture / Unknown 09/05/2024 9:10 AM EDT 09/05/2024 9:30 AM EDT us Kanu Maravilla MD LAB BLOOD ORDERABLES Final Res ult [facility] [address] [place] [address] * (ABNORMAL) CBC (09/05/2024 9:10 AM EDT) WBC 1.48(L) 4.00 - 10.80 K/uL 09/05/2024 9:44 AM EDT [facility] 56 Comment: Results rechecked. RBC 2.98 3.85 - 5.15 M/uL 09/05/2024 9:44 AM EDT [facility] 56 HGB 10.1(L) 12.0 - 15.3 g/dL 09/05/2024 9:44 AM EDT [facility] HCT 29.0(L) 36.0 - 45.2 % 09/05/2024 9:44 AM EDT [facility] MCV 97.3 81.5 - 97.5 fL 09/05/2024 9:44 AM EDT [facility] 56 MCH 33.9 27.0 - 34.0 pg 09/05/2024 9:44 AM EDT [facility] 56 MCHC 34.8 32.0 - 36.0 g/dL 09/05/2024 9:44 AM EDT [facility] RDW 10.8 11.5 - 15.5 % 09/05/2024 9:44 AM EDT [facility] PLT 38(L) 140 - 400 K/uL 09/05/2024 9:44 AM EDT [facility] 56 Comment: Results rechecked. MPV 10.7 6.6 - 11.1 fL 09/05/2024 9:44 AM EDT [facility] 56 Blood Venous blood specimen / Unknown Venipuncture / Unknown 09/05/2024 9:10 AM EDT 09/05/2024 9:30 AM EDT us Kanu Maravilla MD LAB BLOOD ORDERABLES Final Res ult [facility] [address] [place] [address] * (ABNORMAL) COMPREHENSIVE METABOLIC PANEL (09/05/2024 9:10 AM EDT) BUN 11 6 - 20 mg/dL 09/05/2024 10:02 AM EDT [facility] 56 CREATININE 0.9 0.5 - 1.0 mg/dL 09/05/2024 10:02 AM EDT [facility] 56 EGFR 89 >=60 mL/min 09/05/2024 10:02 AM [facility] 56 Comment:eGFR is calculated b ased on the CKD-EPI 2020 equation. SODIUM 132(L) 135 - 146 mmol/L 09/05/2024 10:02 AM [facility] 56- POTASSIUM 3.8 3.5 - 5.1 mmol/L 09/05/2024 10:02 AM [facility] 56- CHLORIDE 99 98 - 107 mmol/L 09/05/2024 10:02 AM [facility] 56- CO2 20(L) 22 - 32 mmol/L 09/05/2024 10:02 AM [facility] 56 ANION GAP 13 7 - 15 mmol/L 09/05/2024 10:02 AM [facility] 56- GLUCOSE 92 70 - 120 mg/dL 09/05/2024 10:02 AM [facility] 56- Albumin 4.0 3.8 - 5.0 g/dL 09/05/2024 10:02 AM [facility] 56- AST 14 10 - 35 U/L 09/05/2024 10:02 AM [facility] 56- Alkaline Phosphatase 72 35 - 130 U/L 09/05/2024 10:02 AM [facility] 56- Bilirubin, Total 0.7 <=1.2 mg/dL 09/05/2024 10:02 AM [facility] 56- CALCIUM 9.2 8.4 - 10.2 mg/dL 09/05/2024 10:02 AM [facility] 56- Protein 6.7 6.0 - 8.3 g/dL 09/05/2024 10:02 AM [facility] 56- ALT 13 10 - 35 U/L 09/05/2024 10:02 AM [facility] 56- Blood Venous blood specimen / Unknown Venipuncture / Unknown 09/05/2024 9:10 AM EDT 09/05/2024 9:31 AM EDT us Kanu Maravilla MD LAB BLOOD ORDERABLES Final Res ult [facility] [address] [place] [address] documented in this encounter Visit Diagnoses Diagnosis [...] Primary documented in this encounter Care Teams Universal Worker Assisted Living Relationship Specialty Start Date End Date Malinda Owens CRNP [address] [facility] [place] [address] PCP - General Nurse Practitioner 09/20/23 documented as of this encounter
[2024-09-06 08:24] LABS: Albumin Globulin Ratio 1.9 (0.9-2); Albumin Level 3.2 gm/dl (3.4-5.0); BUN Creatinine Ratio 7.8 (10-20); Bilirubin,Total 0.5 mg/dl (0.2-1.0); Calcium 7.7 mg/dl (8.6-10.3); Creatinine Clr Calc Pharmacy 153.9 ml/min; Globulin 1.7 gm/dl (2.5-4.0); Magnesium 1.5 mg/dl (1.7-2.4); Phosphorus 3.2 mg/dl (2.5-4.9); Potassium 3.8 mmol/L (3.5-5.1); Total Protein 4.9 gm/dl (6.0-8.3)
[2024-09-06 08:32] LABS: Hematocrit (blood only) 21.1 % (37.0-47.0); Hemoglobin 7.3 g/dl (12.0-16.0); Mean Corpuscular Hemoglobin 32.6 pg (25.0-34.0); Mean Corpuscular Hgb Conc 34.6 g/dL (32.0-36.0); Mean Corpuscular Volume 94.2 fL (80.0-100.0); RDW Coefficient of Variation 10.7 % (11.5-14.5); RDW Standard Deviation 36.7 fL (36.4-46.3); Red Blood Count 2.24 M/uL (4.20-5.40); White Blood Count 1.29 K/ul (4.8-10.8)
--- NOTE | 2024-09-06 08:33 | Oncology Consultation ---
Date of Consultation September 06, 2024 Assessment & Plan (1) Triple negative breast cancer: (2) Febrile neutropenia: (3) Immunosuppressed due to chemotherapy: Plan -She has pancytopenia due to chemotherapy and is currently in the mathew phase of treatment which is when counts are expected to be the lowest. Expect her counts to improve over the next 48 hours. Labs today show slight improvement in ANC since admission. Since she already received G-CSF on 08/29/2024, can hold off on further G-CSF for now. Would recommend considering G-CSF if ANC does not continue to improve over the next 24 hours. -Recommend transfusion with 1 unit PRBCs since she has symptomatic anemia -No indication at this time for platelet transfusion unless platelet count drops below 10,000 or she develops bleeding Thank you for this consult. Patient to continue follow-up with Dr. Maravilla at [facility] upon discharge from hospital. Please feel free to call if you have any further questions. History of Present Illness Reason for Consultation: Febrile neutropenia, pegfilgrastim recs Attending Physician: Nicolasa Vargas MD History of Present Illness Ms. Gutierrez is a 29 year old Female with history of triple negative breast cancer which was diagnosed in March,. Patient currently on chemoimmunotherapy treatment per keynote [phone] and recently received phase 2 of treatment with cycle 1 of pembrolizumab, doxorubicin and cyclophosphamide on 08/28/2024 followed by G-CSF on 08/29/2024 under the care of Dr. Maravilla of [facility] oncology. She presented to the ER with chills and fever. She was noted to be febrile in the ER with temperature of 39.5. Labs revealed leukopenia with white cell count of 1.2, ANC of 0.03. Infectious workup including blood cultures, chest x-ray, respiratory panel were obtained and was started on broad-spectrum antibiotics. So far, infectious workup has been negative. She complains of dizziness which she states started a couple of weeks ago. Allergies Allergy/AdvReac Type Severity Reaction Status Date / Time No Known Allergies Allergy Verified 09/05/24 13:34 Home Medications Medication Instructions Recorded Confirmed Type loratadine 10 mg tablet 10 mg PO DAILY PRN Allergy Symptoms 09/05/24 09/05/24 History olanzapine 5 mg tablet 5 mg PO BID 09/05/24 09/05/24 History ondansetron HCl 8 mg tablet 8 mg PO Q8H PRN Nausea And Vomiting 09/05/24 09/05/24 History Patient History Medical History (Updated 09/05/24 @ 16:51 by Julián aM MD) Bradycardia normally runs in 50's History of COVID-19 (2019) no hosp; resolved Hx gestational diabetes History of anemia Mother currently breast-feeding Surgical History Cooks teeth removed Family History Other No family history of adverse response to anesthesia Social History Smoking Status: Never smoker Second Hand Exposure: No; Do You Dip or Chew Tobacco: No; Hx Alcohol Use: No Hx Substance Use: No Preferred Language: Urdu Communication Ability: Effective Tattoo Technician Required: No Beliefs That Will Affect Care: None marital status: Current Living Situation: Spouse Other Information That Helps Us Care for You: No Feels Safe at Home: Yes Safety Concerns: Feels Safe At This Time Assistive Devices: None Results & Data Vital Signs (Past 12 Hours) Vital Signs Temp Pulse Pulse Resp BP BP Pulse Ox 09/06/24 07:53 37.1 C 95 H 16 91/62 L 97 09/06/24 07:00 91 H 09/06/24 03:58 96 09/06/24 03:22 37.9 C H 98 H 16 93/62 L 93 09/05/24 23:59 37.9 C H 99 H 17 98/63 L 95 09/05/24 22:33 38.2 C H 101 H 16 92/57 L 94 09/05/24 21:45 97 H O2 Del Method 09/06/24 07:53 Room Air 09/06/24 07:00 09/06/24 03:58 Room Air 09/06/24 03:22 Room Air 09/05/24 23:59 Room Air 09/05/24 22:33 Room Air 09/05/24 21:45
[2024-09-06 08:37] LABS: Basophils # (auto) 0.01 K/uL (0.00-0.20); Basophils % (auto) 0.8 %; Eosinophils # (auto) 0.04 K/uL (0.00-0.50); Eosinophils % (auto) 3.1 %; Immature Granulocytes # (auto) 0.01 K/uL (0.01-0.20); Immature Granulocytes % (auto) 0.8 %; Lymphocytes # (auto) 1.05 K/uL (1.20-3.40); Lymphocytes % (auto) 81.4 %; Monocytes # (auto) 0.11 K/uL (0.11-0.59); Monocytes % (auto) 8.5 %; Neutrophils # (auto) 0.07 K/uL (1.40-6.50); Neutrophils % (auto) 5.4 %
[2024-09-06 08:42] LABS: Mean Platelet Volume 11.1 fL (9.4-12.4); Platelet Count 25 K/uL (130-400); RBC Morphology Unremarkable
[2024-09-06] MEDS: ONDANSETRON 8MG OD TAB PO PRN (09:34)
[2024-09-06] MEDS: CEFEPIME 2000MG 2,000 MG/20 ML SYR IV SCH (10:07)
[2024-09-06] MEDS: VANCOMYCIN HCL 1,250 MG in SODIUM CHLORIDE 0.9% 250 ML IV SCH (10:07)
--- NOTE | 2024-09-06 10:16 | Hospitalist Progress Note ---
Date of Service September 06, 2024 Assessment & Plan (1) Febrile neutropenia: (2) Triple negative breast cancer: (3) Immunosuppressed due to chemotherapy: Plan: Febrile Neutropenia - Admit to med tele - maintain strict neutropenic precautions - Follow BC x 2, obtained 09/05 NGTD prelim - discussed with Micro as no site is identified on results, so difficult to determine at this point which is the port and which is culture. Will now repeat port culture to confirm no acute infection. - Add on stool culture, stool biofire, C.diff and hemocult with diarrhea noted today - Currently follows with [facility] oncology as outpatient - discussed with him via phone today. - Consulted oncology - Dr. Addison - discussed on phone - appreciate recs - Hgb 7.3, plt 25 dropped compared to 09/05-- pt is symptomatic with lightheadedness and HUFFMAN, Transfuse 1 U PRBC and will pretreat with benadryl and tylenol - BCx x 2, obtain BC from left chest wall port as well- follow - Cont cefepime and Vanc IV for empiric coverage at this time - biofire RVP is negative - She is on Lupron monthly per oncology Hypomagnesemia - Mag 1.5, will replace with 2 G IV, follow am labs - Add daily slow-mag PO Triple Negative Breast Cancer Immunosuppresion due to chemotherapy - T2 primary tumor, no axillary lymph node involvement on PET-CT, negative for distant metastatic disease - Neoadjuvant chemotherapy with Keynote 522 protocol. Currently completed phase 1 of the treatment, (Paclitaxel, carboplatin, Keytruda). - Current Regimen: Actively on Phase 2, Keytruda, Adriamycin, cyclophosphamide, started C1 day 8 on 08/14. Last round was on 08/28/24 and had pegfilgrastim (neulasta) dosed on 08/29 which will last for 14 days for the GCSF. - Currently NADAR with ANC count low as expected with timing of chemo. - ANC 70 today - MRI brain was scheduled outpatient on Sunday(pt will likely remain in hospital until Sunday and not make this appt time at 0930), will obtain MRI w/wo contrast today as no previous brain imaging for possible mets. No acute symtpoms. 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 Maravilla - Per Dr. Maravilla: For outpatient /on discharge consider hydrocortisone 20 mg PO QAM and 10 mg QPM DVT ppx: teds, scds Lines: PIV x 1, Mediport x 1 FEN/GI: Regular diet, neutropenic precautions, no fresh fruit or vegetable unless able to be peeled CODE: Full code Dispo: From home, likely to remain in the hospital x 1-2 days I spent a total of 57 minutes with greater than 50% of that time face to face with the patient, personally reviewing all current laboratories, imaging studies, past medication reconciliation, outpatient chart review, and discussion with specialists to collaborate care for the patient excluding time spent in the performance of separately billed services or time spent by another provider/QHP. Please see attending documentation for corrections and/or additions. Admission and Anticipated Discharge Date Admission Date: September 05, 2024 Supervising Physician Co-Signing Physician Notes Patient is seen and examined at bedside. States having significant diarrhea today. Also reports chronic dizziness. Reports nausea but no vomiting. Denies any chest pain, abdominal pain. Discussed with oncology today. On exam patient is moderately built and nourished, no apparent distress, normocephalic atraumatic, EOMI, normal breath sounds, clear to auscultation, S1-S2, no murmur, no pedal edema, abdomen soft, nontender, normal bowel sounds, alert, awake, oriented, grossly no focal deficits. Patient is currently being managed for febrile neutropenia. Likely due to chemotherapy. no obvious source of infection currently. Stool PCR, stool for C. difficile negative. Follow-up cultures. Empirically on vancomycin, cefepime. Monitor CBC closely. Isolation precautions. Continue IV fluids. Suspected adrenal insufficiency. Continue IV hydrocortisone. Transition to prednisone as able. Appreciate oncology input. Monitor electrolytes. I personally interviewed and examined the patient at bedside. I have reviewed the advanced practitioner's documentation on the date of service referred in note and agree with plan. Patient's care is coordinated with Jeanie Mckay PA-C. Please refer to the documentation above for details of patient's presentation and for discussion of other issues. I spent a total [id number] coordinating, documenting, and providing care for this patient excluding time spent in the performance of separately billed services or time spent by another provider/QHP. Subjective Patient seen and examined this morning, her Alessio and mother Shelia are present at bedside. She reports having lightheadedness, increased shortness of breath with exertion, also reports at least 3 soft diarrhea like bowel movements in the past few hours which appear yellow in color. Denies any bright red blood or dark tarry stools. She does not feel well this morning, was unable to tolerate breakfast. She is agreeable to trying a protein supplement. Also noted is low blood pressure, plans to start hydrocortisone IV for pituitary insufficiency with cortisol and a TCH levels low. Platelet count 25 today down from 40, hemoglobin 7.3, down from 9.9 overnight. ANC 70. Review of Systems Review of Systems: 10 point ROS reviewed and otherwise nega tive. Physical Exam Physical Exam: General: awake, alert, white female, pallor, alopecia Head: Normocephalic, atraumatic ENT: PERRL, EOMI, no pharyngeal exudate, mucous membranes moist Chest: Right Mediport, clear to auscultation, on room air, no adventitious breath sounds Cardiac: Sinus tachycardia, no murmur, no JVD, normal peripheral pulses, good capillary refill Abdominal: NABS x 4 quadrants, soft, nondistended, nontender to palpation, no rebound or guarding Extremities: Normal inspection, no peripheral edema or erythema, calfs nontender to palpation Psych: Normal mood and affect Neuro: AAO x 3, strength intact bilaterally and rated 5/5, no motor deficits, speech is clear, no peripheral sensory deficits Results & Data Results & Data Vital Signs (Past 12 Hours) Vital Signs Temp Pulse Pulse Resp BP BP Pulse Ox 09/06/24 07:53 37.1 C 95 H 16 91/62 L 97 09/06/24 07:00 91 H 09/06/24 03:58 96 09/06/24 03:22 37.9 C H 98 H 16 93/62 L 93 09/05/24 23:59 37.9 C H 99 H 17 98/63 L 95 09/05/24 22:33 38.2 C H 101 H 16 92/57 L 94 O2 Del Method 09/06/24 07:53 Room Air 09/06/24 07:00 09/06/24 03:58 Room Air 09/06/24 03:22 Room Air 09/05/24 23:59 Room Air 09/05/24 22:33 Room Air Laboratory Results 09/05/24 12:22 Urine Culture - Pending Urine,Clean Catch 09/05/24 11:09 Aerobic Blood Culture - Pending Blood Anaerobic Blood Culture - Pending 09/05/24 10:55 Aerobic Blood Culture - Pending Blood Anaerobic Blood Culture - Pending 09/06/24 09/05/24 09/05/24 07:27 12:22 10:55 WBC 1.29 L 1.29 L RBC 2.24 L 2.99 L Hgb 7.3 L 9.9 L Hct 21.1 L 27.8 L MCV 94.2 93.0 MCH 32.6 33.1 MCHC 34.6 35.6 RDW Std Deviation 36.7 35.8 L RDW Coeff of Karey 10.7 L 10.6 L Plt Count 25 L* 40 L MPV 11.1 10.6 Immature Gran % (Auto) 0.8 0.0 Neut % (Auto) 5.4 2.3 Lymph % (Auto) 81.4 87.6 [place] % (Auto) 8.5 7.8 Eos % (Auto) 3.1 2.3 Baso % (Auto) 0.8 0.0 Neut # (Auto) 0.07 L* 0.03 L* Lymph # (Auto) 1.05 L 1.13 L [place] # (Auto) 0.11 0.10 L Eos # (Auto) 0.04 0.03 Baso # (Auto) 0.01 0.00 Immature Gran # (Auto) 0.01 0.00 L RBC Morphology Unremarkable PT 11.7 INR 1.1 Sodium 131 L 130 L Potassium 3.8 3.6 Chloride 109 H 102 Carbon Dioxide 20 L 23 Anion Gap 2 L 5 BUN 5 L 11 Creatinine 0.64 0.82 Est Cr Clr Drug Dosing 153.9 119.5 eGFR 121.85 98.62 BUN/Creatinine Ratio 7.8 L 13.4 Glucose 81 93 Calcium 7.7 L 8.8 Phosphorus 3.2 Magnesium 1.5 L 1.5 L Total Bilirubin 0.5 0.8 Direct Bilirubin 0.1 AST 10 L 13 ALT 8 12 Alkaline Phosphatase 42 56 Troponin I High Sens 7.9 Total Protein 4.9 L D 6.4 Albumin 3.2 L 4.0 Globulin 1.7 L Albumin/Globulin Ratio 1.9 Vitamin B12 848 Folate > 22.30 Procalcitonin 0.11 HCG, Qual Negative Urine Color Yellow Urine Appearance Clear Urine pH 5.0 Ur Specific [place] 1.026 Urine Protein Negative Urine Glucose (UA) Negative Urine Ketones 1+ H Urine Blood Negative Urine Nitrite Negative Urine Bilirubin Negative Urine Urobilinogen Negative Ur Leukocyte Esterase Trace H Urine WBC (Auto) 0-5 Urine RBC (Auto) 0-2 U Hyaline Cast (Auto) 0-2 U Epithel Cells (Auto) 11-20 H Urine Bacteria (Auto) 2+ H Adenovirus (PCR) Not Detected B. pertussis DNA (PCR) Not Detected B.parapertussis DNA PCR Not Detected C. pneumoniae DNA (PCR) Not Detected Coronavirus OC43 (PCR) Not Detected Coronavirus HKU1 (PCR) Not Detected Coronavirus 229E (PCR) Not Detected SARS-CoV-2 (PCR) Not Detected Coronavirus NL63 (PCR) Not Detected Human Metapneumovir PCR Not Detected Influenza Type A (PCR) Not Detected Influenza Type B (PCR) Not Detected M. pneumoniae (PCR) Not Detected Parainfluenza 1 (PCR) Not Detected Parainfluenza 2 (PCR) Not Detected Parainfluenza 3 (PCR) Not Detected Parainfluenza 4 (PCR) Not Detected RSV (PCR) Not Detected Entero/Rhino (PCR) Not Detected Diagnostic Findings Chest X-Ray 09/05/24 10:08 XR chest 1V portable CLINICAL HISTORY: Sepsis COMPARISON STUDY: None FINDINGS: Right chest port tip is at the cavoatrial junction. Heart size and pulmonary vasculature are normal. No effusion, consolidation, or pneumothorax. IMPRESSION: No acute findings. ACT 112: Negative or not required by law. Electronically signed by: Shayan Gomez M.D. 09/05/2024 10:21 AM
[2024-09-06 10:23] LABS: Folate (Folic Acid),Ser orPlas > 22.30 ng/ml (>5.38)
[2024-09-06 10:24] LABS: Vitamin B12 848 pg/ml (180-914)
[2024-09-06] MEDS ORDERED: SODIUM CHLORIDE 0.9% 100 ML IV PRN (11:18)
--- NOTE | 2024-09-06 11:36 | Pharmacy Report ---
Pharmacy PK ABX Note - Date of Service September 06, 2024 - Assessment and Plan Assessment 29 year old F receiving VANCOMYCIN/CEFEPIME for treatment of neutropenic fever. Pertinent microbiologic data includes: Blood and urine cultures pending. Patient is immunocompromised on chemotherapy for hx of breast cancer. Procal 0.11, WBC 1.29, neutrophil # 70, Tmax 39.5. Plan Vancomycin * Loading dose: 2250 mg IV x 1 * Maintenance dose: 1250 mg IV every 8 hours * Regimen is predicted to achieve target AUC/IZABELLA of 400-600 mg/L.hr * Random level ordered for 09/07 @ 0900 Pharmacy will continue to follow and will adjust dose/frequency as necessary. Thank you. Pharmacy has transitioned to AUC monitoring for vancomycin. AUC/IZABELLA is the preferred PK/PD target and is associated with decreased risk of nephrotoxicity compared to traditional trough targets.
[2024-09-06] MEDS: HYDROCORTISONE SOD 100 MG in SYRINGE 0 ML IV STA (11:40)
[2024-09-06 14:01] LABS: Adenovirus F 40/41 PCR Not Detected (NotDetected); Astrovirus PCR Not Detected (NotDetected); Campylobacter PCR Not Detected (NotDetected); Cryptosporidium PCR Not Detected (NotDetected); Cyclospora cayetanensis PCR Not Detected (NotDetected); Entamoeba histolytica PCR Not Detected (NotDetected); Enteroaggregative E.coli(EAEC) Not Detected (NotDetected); Enteropathogenic E.coli (EPEC) Not Detected (NotDetected); Enterotoxigenic E.coli (ETEC) Not Detected (NotDetected); Giardia lamblia PCR Not Detected (NotDetected); Norovirus GI/GII PCR Not Detected (NotDetected); Plesiomonas shigelloides PCR Not Detected (NotDetected); Rotavirus A PCR Not Detected (NotDetected); Salmonella PCR Not Detected (NotDetected); Sapovirus PCR Not Detected (NotDetected); Shiga-like Toxin E.coli (STEC) Not Detected (NotDetected); Shigella/Enteroinvasive E.coli Not Detected (NotDetected); Vibrio cholerae PCR Not Detected (NotDetected); Vibrio species PCR Not Detected (NotDetected); Yersinia enterocolitica PCR Not Detected (NotDetected)
[2024-09-06] MEDS: ACETAMINOPHEN 325 MG TAB PO ONE (14:14)
[2024-09-06] MEDS: diphenhydrAMINE Capsule 25 MG CAP PO ONE (14:14)
[2024-09-06] MEDS: SODIUM CHLORIDE 0.9% 1,000 ML IV SCH (17:16)
[2024-09-06] MEDS: DIPHENOXYLATE/ATROPINE 2.5/0.025MG TAB PO ONE (17:24)
[2024-09-06] MEDS: HYDROCORTISONE SOD 50 MG in SYRINGE 0 ML IV SCH (18:04)
[2024-09-06] MEDS: MAGNESIUM SULFATE / D5W 1 GM/100 ML BAG IV SCH (18:29)
[2024-09-06] MEDS: MAGNESIUM CHLORIDE W/CALCIUM 64MG DELAYED REL TAB PO SCH (20:32)
--- NOTE | 2024-09-06 23:55 | Communication Note ---
Date of Service: September 06, 2024 Patient requesting for medication for restless leg syndrome as per RN. RLS possibly from chemotherapy Rx as per outpatient oncology note. Gabapentin trial
[2024-09-07] MEDS: GABAPENTIN 100 MG CAP PO SCH (00:04)
[2024-09-07] MEDS: MELATONIN 3 MG TAB PO PRN (00:04)
[2024-09-07] MEDS: DIPHENOXYLATE/ATROPINE 2.5/0.025MG TAB PO PRN (08:20)
[2024-09-07] MEDS: VANCOMYCIN LEVEL ONE (08:22)
[2024-09-07 09:10] LABS: Hematocrit (blood only) 25.6 % (37.0-47.0); Hemoglobin 8.9 g/dl (12.0-16.0); Mean Corpuscular Hemoglobin 31.6 pg (25.0-34.0); Mean Corpuscular Hgb Conc 34.8 g/dL (32.0-36.0); Mean Corpuscular Volume 90.8 fL (80.0-100.0); Mean Platelet Volume 11.9 fL (9.4-12.4); Platelet Count 33 K/uL (130-400); RDW Coefficient of Variation 11.9 % (11.5-14.5); RDW Standard Deviation 39.7 fL (36.4-46.3); Red Blood Count 2.82 M/uL (4.20-5.40); White Blood Count 2.05 K/ul (4.8-10.8)
[2024-09-07 09:28] LABS: Albumin Globulin Ratio 1.7 (0.9-2); Albumin Level 3.6 gm/dl (3.4-5.0); BUN Creatinine Ratio 10.6 (10-20); Bilirubin,Total 0.6 mg/dl (0.2-1.0); Calcium 8.5 mg/dl (8.6-10.3); Creatinine Clr Calc Pharmacy 209.3 ml/min; Globulin 2.1 gm/dl (2.5-4.0); Magnesium 1.8 mg/dl (1.7-2.4); Phosphorus 3.1 mg/dl (2.5-4.9); Potassium 3.5 mmol/L (3.5-5.1); Total Protein 5.7 gm/dl (6.0-8.3)
[2024-09-07 09:37] LABS: Basophils # (auto) 0.02 K/uL (0.00-0.20); Eosinophils # (auto) 0.02 K/uL (0.00-0.50); Immature Granulocytes # (auto) 0.02 K/uL (0.01-0.20); Lymphocytes # (auto) 1.13 K/uL (1.20-3.40); Lymphocytes % (auto) 55.1 %; Monocytes # (auto) 0.33 K/uL (0.11-0.59); Monocytes % (auto) 16.1 %; Neutrophils # (auto) 0.53 K/uL (1.40-6.50); Neutrophils % (auto) 25.8 %; Polychromasia 1+; Toxic Granulation 3+
[2024-09-07] MEDS: GADOBUTROL 65ML VIAL IV ONE (10:15)
--- NOTE | 2024-09-07 11:03 | Magnetic Resonance Report ---
MRI OF THE BRAIN WITHOUT AND WITH IV CONTRAST CLINICAL HISTORY: Breast cancer hx, eval for any met lesions COMPARISON STUDY: No previous studies for comparison. TECHNIQUE: Utilizing a 3 Liliana magnet and dedicated coil, multiplanar, multiecho imaging of the brai n was performed pre and postcontrast administration. IV administration of 9 mL of Gadavist contrast was uneventful. Thin cut T1 post contrast imaging was performed. FINDINGS: There are no foci of restricted diffusion to suggest acute infarct. No acute intracranial h emorrhage, midline shift or mass effect is present. Brain volume is normal. Ventricular system is nor mal. Basal cisterns are patent. Flow-voids for the major intracranial vessels are present. A 2.4 x 1. 9 cm CSF signal intensity focus along the medial aspect of the left cerebellar hemisphere represents an arachnoid cyst. No parenchymal signal abnormality is present. There is no intracranial mass or pat hologic enhancement. There are no calvarial lesions. A moderate sized left mastoid effusion is presen t. There is a small right mastoid effusion. IMPRESSION: 1. No acute intracranial findings. 2. No evidence for metastatic disease. 3. Bilateral mastoid effusions, left larger than right. ACT 112: Negative or not required by law. Electronically signed by: Curt Lema M.D. 09/07/2024 11:00 AM
--- NOTE | 2024-09-07 11:55 | Hospitalist Progress Note ---
Date of Service September 07, 2024 Assessment & Plan (1) Febrile neutropenia: (2) Triple negative breast cancer: (3) Immunosuppressed due to chemotherapy: Plan: Febrile Neutropenia - Admit to med tele - maintain strict neutropenic precautions - Follow BC x 2, obtained 09/05 NGTD prelim - discussed with Micro as no site is identified on results, Repeat port culture 09/06 pending - Negative stool culture, stool biofire, C.diff and hemmocult with diarrhea - immodium prn - Currently follows with [facility] oncology as outpatient - Consulted oncology - Dr. Addison - appreciate recs - Hgb 8.9, plt 33 s/p 1 U PRBC on 09/06 and had received pretreat with Benadryl and tylenol - Cont cefepime and Vanc IV (started 09/05) likely able to dc abx tomorrow pending negative Blood culture results. - biofire RVP is negative - She is on Lupron monthly per oncology Hypomagnesemia - Mag 1.8 today - Cont daily slow-mag PO Triple Negative Breast Cancer Immunosuppresion due to chemotherapy - T2 primary tumor, no axillary lymph node involvement on PET-CT, negative for distant metastatic disease - Neoadjuvant chemotherapy with Keynote 522 protocol. Currently completed phase 1 of the treatment, (Paclitaxel, carboplatin, Keytruda). - Current Regimen: Actively on Phase 2, Keytruda, Adriamycin, cyclophosphamide, started C1 day 8 on 08/14. Last round was on 08/28/24 and had pegfilgrastim (neulasta) dosed on 08/29 which will last for 14 days for the GCSF. - Reached NADAR with ANC count low as expected with timing of chemo. - ANC 30-->70-->530 today - MRI brain NEGATIVE for mets 09/07. Bilateral mastoid effusion, left larger than right present but not suspected as the cause of dizziness or lightheadedness. 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 - Reduce hydrocortisone 50 mg to Q8H dosing - Per Dr. Maravilla: For outpatient /on discharge consider hydrocortisone 20 mg PO QAM and 10 mg QPM DVT ppx: teds, scds Lines: PIV x 1, Mediport x 1 FEN/GI: Regular diet, neutropenic precautions, no fresh fruit or vegetable unless able to be peeled CODE: Full code Dispo: From home, likely to remain in the hospital x 1-2 days I spent a total of 57 minutes with greater than 50% of that time face to face with the patient, personally reviewing all current laboratories, imaging sara dies, past medication reconciliation, outpatient chart review, and discussion with specialists to collaborate care for the patient excluding time spent in the performance of separately billed services or time spent by another provider/QHP. Please see attending documentation for corrections and/or additions. Admission and Anticipated Discharge Date Admission Date: September 05, 2024 Supervising Physician Co-Signing Physician Notes Patient is seen and examined at bedside. States feeling a lot better today. Diarrhea improved. Still has some dizziness. Discussed with oncology today. Denies any chest pain, abdominal pain. Discussed with oncology today. On exam patient is moderately built and nourished, no apparent distress, normocephalic atraumatic, EOMI, normal breath sounds, clear to auscultation, S1-S2, no murmur, no pedal edema, abdomen soft, nontender, normal bowel sounds, alert, awake, oriented, grossly no focal deficits. Patient is currently being managed for febrile neutropenia. Likely due to chemotherapy. no obvious source of infection currently. Stool PCR, stool for C. difficile negative. Follow-up cultures. Empirically on vancomycin, cefepime. Continue current antibiotics. Isolation precautions. Continue IV fluids. Suspected adrenal insufficiency. Continue IV hydrocortisone. Titrate down IV hydrocortisone as able. Appreciate oncology input. Monitor electrolytes. Blood cultures negative to date. Urine culture negative. Leukopenia, thrombocytopenia improving. Monitor CBC closely. I personally interviewed and examined the patient at bedside. I have reviewed the advanced practitioner's documentation on the date of service referred in note and agree with plan. Patient's care is coordinated with Jeanie Yanez. Please refer to the documentation above for details of patient's presentation and for discussion of other issues. I spent a total [id number] coordinating, documenting, and providing care for this patient excluding time spent in the performance of separately billed services or time spent by another provider/QHP. Subjective Patient is seen and examined this morning, her Alessio is present at bedside. She had MRI of the brain completed this morning. Awaiting results. Patient still has complaints of feeling lightheaded but states that it is significantly improved compared to yesterday. Counts are improving appropriately. Responded appropriately to transfusion with 1 unit PRBC on 09/06. Will also plan to have her continue hydrocortisone today, reduced dose to every 8 dosing, give NS today with continued complaints of lightheadedness with walking/standing. Again discussed precautions with handwashing, mask wearing, prevention of possible sick contacts in her household upon discharge. Would also recommend reducing number of family members visiting whenever she has next cycle of chemotherapy. Review of Systems Review of Systems: Constitutional: Afebrile overnight, + lightheadedness as per HPI, no sweats or chills Eyes: No diplopia, no worsening or blurred vision ENT: normal hearing, no trouble swallowing Respiratory: No cough, sputum, dyspnea at rest or on exertion Cardiovascular: No chest pain, tightness or palpitations Abdomen: + Diarrhea is improving, no pain, nausea, vomiting, or constipation Musculoskeletal: No joint pain, calf pain, swelling Neurologic: No weakness, numbness/tingling, or balance problems Psychiatric: No anxiety or depression Skin: No rash or itch Physical Exam Physical Exam: General: awake, alert, white female, pallor but color appears improved, alopecia Head: Normocephalic, atraumatic ENT: PERRL, EOMI, no pharyngeal exudate, mucous membranes moist Chest: Right Mediport, clear to auscultation, on room air, no adventitious breath sounds Cardiac: NSR, no murmur, no JVD, normal peripheral pulses, good capillary refill Abdominal: NABS x 4 quadrants, soft, nondistended, nontender to palpation, no rebound or guarding Extremities: Normal inspection, no peripheral edema or erythema, calfs nontender to palpation Psych: Normal mood and affect Neuro: AAO x 3, strength intact bilaterally and rated 5/5, no motor deficits, speech is clear, no peripheral sensory deficits Results & Data Results & Data Vital Signs (Past 12 Hours) Vital Signs Temp Pulse Pulse Resp BP BP Pulse Ox 09/07/24 08:07 36.8 C 72 20 92/62 L 100 09/07/24 07:00 77 09/07/24 03:55 96/57 L 09/07/24 02:54 36.4 C L 64 16 90/52 L 98 O2 Del Method 09/07/24 08:07 Room Air 09/07/24 07:00 09/07/24 03:55 09/07/24 02:54 Room Air Laboratory Results 09/05/24 12:22 Urine Culture - Final Urine,Clean Catch Three types or organisms present, all moderate counts probable skin chelo. No further identifications or sensitivities to follow. 09/06/24 18:24 Aerobic Blood Culture - Pending Blood Anaerobic Blood Culture - Pending 09/06/24 18:24 Aerobic Blood Culture - Pending Blood Anaerobic Blood Culture - Pending 09/05/24 11:09 Aerobic Blood Culture - Preliminary Blood No growth in Aerobic bottle after 24 hours. Anaerobic Blood Culture - Preliminary No growth in Anaerobic bottle after 24 hours. 09/05/24 10:55 Aerobic Blood Culture - Preliminary Blood No growth in Aerobic bottle after 24 hours. Anaerobic Blood Culture - Preliminary No growth in Anaerobic bottle after 24 hours. 09/07/24 09/06/24 09/06/24 08:41 Unknown 11:52 WBC 2.05 L RBC 2.82 L Hgb 8.9 L Hct 25.6 L MCV 90.8 MCH 31.6 MCHC 34.8 RDW Std Deviation 39.7 RDW Coeff of Karey 11.9 Plt Count 33 L MPV 11.9 Immature Gran % (Auto) 1.0 Neut % (Auto) 25.8 Lymph % (Auto) 55.1 [place] % (Auto) 16.1 Eos % (Auto) 1.0 Baso % (Auto) 1.0 Neut # (Auto) 0.53 L* Lymph # (Auto) 1.13 L [place] # (Auto) 0.33 Eos # (Auto) 0.02 Baso # (Auto) 0.02 Immature Gran # (Auto) 0.02 Toxic Granulation 3+ Polychromasia 1+ Sodium 140 D Potassium 3.5 Chloride 114 H Carbon Dioxide 21 Anion Gap 5 BUN 5 L Creatinine 0.47 L Est Cr Clr Drug Dosing 209.3 eGFR 131.26 BUN/Creatinine Ratio 10.6 Glucose 95 Calcium 8.5 L Phosphorus 3.1 Magnesium 1.8 Total Bilirubin 0.6 AST 9 L ALT 9 Alkaline Phosphatase 44 Total Protein 5.7 L Albumin 3.6 Globulin 2.1 L Albumin/Globulin Ratio 1.7 Cortisol AM Sample > 60.00 H Nasal Screen MRSA (PCR) Stool Occult Bld Scrn Negative Stl C. cayetanensis PCR Not Detected Stool Rotavirus A PCR Not Detected Stl Adenov F 40/41 PCR Not Detected Stool Astrovirus (PCR) Not Detected Stool Campylobacter PCR Not Detected Stl C. diff Tox B Gene Negative Cdiff Gene Stool Cryptosporidium PCR Not Detected Stl E.coli Shiga Tox PCR Not Detected Stl Enterotoxigenic E PCR Not Detected Stool EPEC (PCR) Not Detected Stool EAEC (PCR) Not Detected Stl E. histolytica PCR Not Detected Stool Giardia Lamblia PCR Not Detected Stool Salmonella PCR Not Detected Stool Sapovirus (PCR) Not Detected Stl P. shigelloides PCR Not Detected Stl Shigella/EIEC PCR Not Detected St Y.enterocolitica PCR Not Detected Stool Vibrio (PCR) Not Detected Stl Vibrio cholerae PCR Not Detected Stl Norovirus GI/GII PCR Not Detected Random Vancomycin 16.3 Blood Type Antibody Screen Crossmatch 09/06/24 09/06/24 11:33 10:08 WBC RBC Hgb Hct MCV MCH MCHC RDW Std Deviation RDW Coeff of Karey Plt Count MPV Immature Gran % (Auto) Neut % (Auto) Lymph % (Auto) [place] % (Auto) Eos % (Auto) Baso % (Auto) Neut # (Auto) Lymph # (Auto) [place] # (Auto) Eos # (Auto) Baso # (Auto) Immature Gran # (Auto) Toxic Granulation Polychromasia Sodium Potassium Chloride Carbon Dioxide Anion Gap BUN Creatinine Est Cr Clr Drug Dosing eGFR BUN/Creatinine Ratio Glucose Calcium Phosphorus Magnesium Total Bilirubin AST ALT Alkaline Phosphatase Total Protein Albumin Globulin Albumin/Globulin Ratio Cortisol AM Sample Nasal Screen MRSA (PCR) Negative Stool Occult Bld Scrn Stl C. cayetanensis PCR Stool Rotavirus A PCR Stl Adenov F 40/41 PCR Stool Astrovirus (PCR) Stool Campylobacter PCR Stl C. diff Tox B Gene Stool Cryptosporidium PCR Stl E.coli Shiga Tox PCR Stl Enterotoxigenic E PCR Stool EPEC (PCR) Stool EAEC (PCR) Stl E. histolytica PCR Stool Giardia Lamblia PCR Stool Salmonella PCR Stool Sapovirus (PCR) Stl P. shigelloides PCR Stl Shigella/EIEC PCR St Y.enterocolitica PCR Stool Vibrio (PCR) Stl Vibrio cholerae PCR Stl Norovirus GI/GII PCR Random Vancomycin Blood Type A Positive Antibody Screen NEGATIVE Crossmatch See Detail
[2024-09-07] MEDS: SODIUM CHLORIDE 0.9% 500 ML IV SCH (12:43)
[2024-09-07] MEDS: HYDROCORTISONE SOD 50 MG in SYRINGE 0 ML IV SCH (17:34)
[2024-09-08 06:31] LABS: Hematocrit (blood only) 25.3 % (37.0-47.0); Hemoglobin 8.6 g/dl (12.0-16.0); Mean Corpuscular Hemoglobin 31.4 pg (25.0-34.0); Mean Corpuscular Volume 92.3 fL (80.0-100.0); Mean Platelet Volume 11.4 fL (9.4-12.4); Platelet Count 50 K/uL (130-400); RDW Coefficient of Variation 12.3 % (11.5-14.5); Red Blood Count 2.74 M/uL (4.20-5.40); White Blood Count 2.22 K/ul (4.8-10.8)
[2024-09-08 06:33] LABS: BUN Creatinine Ratio 10.3 (10-20); Calcium 8.2 mg/dl (8.6-10.3); Creatinine Clr Calc Pharmacy 169.6 ml/min; Magnesium 1.8 mg/dl (1.7-2.4); Potassium 3.7 mmol/L (3.5-5.1)
--- NOTE | 2024-09-08 07:09 | Hospitalist Progress Note ---
Date of Service September 08, 2024 Assessment & Plan (1) Febrile neutropenia: Plan: Yuli Gutierrez is a 29y/o F with PMHx significant for iron deficiency anemia and triple negative left breast cancer diagnosed in March 2024 currently undergoing neoadjuvant chemotherapy who presented to the ED (2) Triple negative breast cancer: (3) Immunosuppressed due to chemotherapy: Plan: Febrile Neutropenia - Admit to med tele - maintain strict neutropenic precautions - Follow BC x 2, obtained 09/05 NGTD prelim - discussed with Micro as no site is identified on results, Repeat port culture 09/06 pending - Negative stool culture, stool biofire, C.diff and hemmocult with diarrhea - immodium prn - Currently follows with [facility] oncology as outpatient - Consulted oncology - Dr. Addison - appreciate recs - Hgb 8.9, plt 33 s/p 1 U PRBC on 09/06 and had received pretreat with Benadryl and tylenol - Cont cefepime and Vanc IV (started 09/05) likely able to dc abx tomorrow pending negative Blood culture results. - biofire RVP is negative - She is on Lupron monthly per oncology Hypomagnesemia - Mag 1.8 today - Cont daily slow-mag PO Triple Negative Breast Cancer Immunosuppresion due to chemotherapy - T2 primary tumor, no axillary lymph node involvement on PET-CT, negative for distant metastatic disease - Neoadjuvant chemotherapy with Keynote 522 protocol. Currently completed phase 1 of the treatment, (Paclitaxel, carboplatin, Keytruda). - Current Regimen: Actively on Phase 2, Keytruda, Adriamycin, cyclophosphamide, started C1 day 8 on 08/14. Last round was on 08/28/24 and had pegfilgrastim (neulasta) dosed on 08/29 which will last for 14 days for the GCSF. - Reached NADAR with ANC count low as expected with timing of chemo. - ANC 30-->70-->530 today - MRI brain NEGATIVE for mets 09/07. Bilateral mastoid effusion, left larger than right present but not suspected as the cause of dizziness or lightheadedness. 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 Maravilla: For outpatient /on discharge consider hydrocortisone 20 mg PO QAM and 10 mg QPM DVT ppx: teds, scds Lines: PIV x 1, Mediport x 1 FEN/GI: Regular diet, neutropenic precautions, no fresh fruit or vegetable unless able to be peeled CODE: Full code Dispo: From home, likely to remain in the hospital x 1-2 days I spent a total of 57 minutes with greater than 50% of that time face to face with the patient, personally reviewing all current laboratories, imaging studies, past medication reconciliation, outpatient chart review, and discussion with specialists to collaborate care for the patient excluding time spent in the performance of separately billed services or time spent by another provider/QHP. Please see attending documentation for corrections and/or additions. Admission and Anticipated Discharge Date Admission Date: September 05, 2024 Results & Data Results & Data Vital Signs (Past 12 Hours) Vital Signs Temp Pulse Pulse Resp BP Pulse Ox O2 Del Method 09/08/24 05:01 62 97/64 L 09/08/24 02:54 36.8 C 72 18 85/53 L 95 Room Air 09/07/24 23:14 36.3 C L 62 17 93/56 L 95 Room Air 09/07/24 22:00 60 09/07/24 20:16 36.7 C 71 19 87/54 L 94 Room Air
[2024-09-08 07:24] VITALS: TEMP 97.7
--- NOTE | 2024-09-08 08:08 | Discharge Summary ---
Discharge Summary Date of Service September 08, 2024 Principal Dx & Hospital Course #1 = Principal Diagnosis (1) Febrile neutropenia: Yuli Gutierrez is a 29y/o F with PMHx significant for iron deficiency anemia and triple negative left breast cancer diagnosed in March 2024 currently receiving neoadjuvant chemotherapy who presented to the ED on 09/05/2024 via referral from hematology/oncology after she was discovered to be febrile and hypotensive at [facility]. Profoundly neutropenic with ANC of 30 and febrile with temperature of 39.5 C on admission. Was started on empiric IV vancomycin plus IV cefepime on admission. Blood (including draw from port site) cultures negative. CXR negative. Respiratory BioFire panel negative. Stool PCR (including C. diff testing) negative. UA with initial concern for infection given 2+ bacteria however suspect contamination given evidence of numerous epithelial cells and negative urine culture results. No identified source of infection. No recorded fever since 09/06/2024. ANC improved to 1119 at time of discharge. Close outpatient follow-up with Dr. Kanu Maravilla to be arranged. (2) Triple negative breast cancer: (3) Immunosuppressed due to chemotherapy: Follows with Dr. Kanu Maravilla of [facility]. Diagnosed with triple negative left breast cancer in March 2024. T2 primary tumor, no axillary lymph node involvement on PET-CT, negative for distant metastatic disease. Currently receiving neoadjuvant chemotherapy ([id number]). Already completed phase 1 of regimen which consisted of Keytruda 200mg every 3 weeks x 4, Paclitaxel 80mg/m2 weekly x 12 and Carboplatin at AUC of 1.5 every week x 12. Now on phase 2 which consists of Keytruda 200mg every 3 weeks x 4, Adriamycin 60mg/m2 every 3 weeks x 4 and Cyclophosphamide 600mg/m2 weekly x 4. Had first cycle of phase 2 on 08/14/2024. Also on Lupron monthly. Most recent round was on 08/28/2024. She received pegfilgrastim (Neulasta) dose on 08/29/2024 which will last for 14 days for the G-CSF. Reached mathew period with ANC count low as expected with timing of chemotherapy. ANC 1119 at time of discharge as per above. MRI brain on 09/07/2024 NEGATIVE for metastatic disease (was to have this done as an outpatient). Bilateral mastoid effusions, left > right, present but not suspected as the cause of dizziness or lightheadedness. (4) Anemia: Hgb downtrended to 7.3 on 09/06/2024 and she became symptomatic with associated lightheadedness and dizziness. Received 1U PRBCs on 09/06/2024. Hgb uptrending to 8.6 on discharge. Close outpatient follow-up with Dr. Kanu Maravilla to be arranged, as per above, to continue close lab monitoring regarding her pancytopenia. (5) Thrombocytopenia: Thrombocytopenic with platelet count of 40k on admission. Platelet count then d owntrended to 25k on 09/06/2024. No indication for platelet transfusion per discussion with Dr. Addison as patient had no signs/symptoms of bleeding and platelet count was >10k. Platelet count improved to 50k at time of discharge. Again, close outpatient follow-up with Dr. Kanu Maravilla to be arranged to continue close lab monitoring regarding her pancytopenia. (6) Hypotension: (7) Primary adrenal insufficiency: Notably hypotensive during admission due to primary adrenal insufficiency secondary to Keytruda use. ACTH and cortisol levels were low therefore indicating such on outpatient chart review through [facility]. She was started on IV hydrocortisone for her hypotension. Case discussed with Dr. Kanu Maravilla per prior hospitalist documentation. Patient is being discharged on hydrocortisone 20mg QAM and hydrocortisone 10mg QPM. (8) Restless leg syndrome: Suspect secondary to chemotherapy. Started on gabapentin 100mg HS and tolerating well, therefore will discharge her home on this. PCP: AD Lee Disposition: Patient is being discharged home in stable condition with close oncology follow-up with Dr. Kanu Maravilla and close PCP follow-up appointment. Above changes in medications discussed in length with the patient and her at bedside. All questions were answered to their satisfaction. Patient seen in collaboration with Dr. Robledo. Please see addendum. I spent a total of 70 minutes coordinating, documenting, and providing care for this patient excluding time spent in the performance of separately billed services or time spent by another provider/QHP. This included personally reviewing all current laboratories and imaging studies, medical reconciliation, outpatient chart review and discussion with specialists. This chart was completed in part utilizing Speech Voice Recognition Software. Grammatical errors, random word insertions, pronoun errors, and incomplete sentences are an occasional consequence of this system due to software limitations, ambient noise, and hardware issues. Any formal questions or concerns about the content, text, or information contained within the body of this dictation should be directly addressed to the provider for clarification. Notes For Next Care Provider Will need repeat labs including CBC with differential, BMP and magnesium at her PCP follow-up appointment. Medication Changes From Visit Gabapentin 100mg HS for RLS - likely secondary to chemotherapy. Hydrocortisone 20mg QAM and hydrocortisone 10mg QPM for hypotension in the setting of primary adrenal insufficiency due to Keytruda use. Admission HPI Per Admitting Provider This is a 29 yo F with PMHx of Left triple negative breast cancer, diagnosed Mar 2024, follows with Dr. Kanu Maravilla, currently receiving neoadjuvant chemotherapy and is on phase 2 which includes Keytruda 200 mg every 3 weeks x 4, Adriamycin every 3 weeks x 4, cyclophosphamide every 3 weeks x 4. She had cycle 1 day 8 on 08/14. Presented to the cancer center this morning however was found to be febrile with a Tmax of 39.3, BP 86/40. Here she is found to have WBC of 1.29, neutrophils 0, lymphs 1.13, ANC is 30, she was referred to the hospitalist team for admission for febrile neutropenia. Blood cultures have been obtained peripherally and through port in the left chest wall. She was started on cefepime and IV vancomycin. Currently has had 1 L normal saline so far, additional 1 L is ordered for hypotension. Magnesium 1.5 being replaced. BioFire respiratory viral panel is negative. Pt last round of chemotherapy was on 08/28 and had dose of pegfilgrastim on 08/29( this was the first time she required neupogen) Pt reports having chills and sweats last evening and reports being found to have fever this morning at the clinic. She admits to have a soft bowel movement this morning. Denies any abdominal complaints. Eating ok but reports the taste of food is not right. She does better with fluids. Multipls family members including , brother, sister, brother in law, mother in law and mother are all present at bedside. Education was provided for mask wearing, hand washing, and recommendations for NO hugging, kissing, other forms of physical contact with neutropenia at this time, and masks provided at bedside. Admission Exam Per Admitting Provider General: awake, alert, white female, pallor, alopecia Head: Normocephalic, atraumatic ENT: PERRL, EOMI, no pharyngeal exudate, mucous membranes moist Chest: Right Mediport, clear to auscultation, on room air, no adventitious breath sounds Cardiac: Sinus tachycardia, no murmur, no JVD, normal peripheral pulses, good capillary refill Abdominal: NABS x 4 quadrants, soft, nondistended, nontender to palpation, no rebound or guarding Extremities: Normal inspection, no peripheral edema or erythema, calfs nontender to palpation Psych: Normal mood and affect Neuro: AAO x 3, strength intact bilaterally and rated 5/5, no motor deficits, speech is clear, no peripheral sensory deficits Discharge Exam General: Afebrile overnight. A+Ox3. at bedside. + pallor. + alopecia. Chronically ill-appearing but nontoxic. HEENT: Normocephalic, atraumatic. Conjunctivae normal. External ear and nose n ormal, oropharynx somewhat dry. Respiratory: Normal respiratory effort,. Lungs clear to auscultation bilaterally. R upper chest port site without erythema or drainage. Cardiovascular: Bradycardic rate, regular rhythm. Normal peripheral pulses. No BLE edema. Abdomen/GI: Normal bowel sounds, soft. Nondistended. Nontender to palpation in all quadrants. No rebound or guarding. Extremities/Musculoskeletal: No cyanosis or clubbing. Extremities motor strength intact. Actively moves all extremities. Neurologic: No overt focal deficits. CN's II-XI not formally tested but appear grossly intact bilaterally. Updated Medication List Medication Instructions Recorded Confirmed Type loratadine 10 mg tablet 10 mg PO DAILY PRN Allergy Symptoms 09/05/24 09/05/24 History olanzapine 5 mg tablet 5 mg PO BID 09/05/24 09/05/24 History ondansetron HCl 8 mg tablet 8 mg PO Q8H PRN Nausea And Vomiting 09/05/24 09/05/24 History gabapentin 100 mg capsule 100 mg PO HS #30 caps 09/08/24 Rx hydrocortisone 10 mg tablet 10 mg PO HS #30 tabs 09/08/24 Rx hydrocortisone 20 mg tablet 20 mg PO QAM #30 tabs 09/08/24 Rx magnesium chloride 64 mg 64 mg PO BID #60 tabs 09/08/24 Rx (magnesium chloride) tablet,delayed release (Mag 64) Hospital Stay Data Consultations 09/05/24 12:13 ED Decision to Admit Stat 09/05/24 12:48 Consult Oncology Routine Diagnostic Imagining Performed 09/07/24 09:21 MR brain wo/w con Routine Discharge Instructions Given to Patient (Per Discharging Provider) chrystal Roldan were admitted to [facility] due a condition called febrile neutropenia. Febrile neutropenia is a condition that happens when someone has a fever and a low number of neutrophils, which are a type of white blood cell that helps fight infection. People with neutropenia have a weakened immune system, so they're more vulnerable to infections. The fever is a sign that your body might be fighting an infection, but since your immune system isn't working as well as it should, the infection can spread more easily. This condition is common in people who are undergoing cancer treatments like chemotherapy, as these treatments can reduce the number of neutrophils in the body. You underwent a thorough infectious workup including blood cultures, urine culture, respiratory viral swab testing, stool testing and chest x-ray imaging which thankfully were all NEGATIVE. You do NOT need to be discharged home on antibiotics. You were also found to be hypotensive while admitted, which simply means your blood pressure was LOW. It is suspected that your low blood pressure is being caused by a condition called primary adrenal insufficiency. Primary adrenal insufficiency, also known as Addisons disease, happens when the adrenal glands (located above your kidneys) don't make enough of the hormones cortisol and aldosterone. These hormones help control important functions like blood pressure and the bodys response to stress. Because the adrenal glands arent producing enough hormones, your blood pressure can drop, leading to hypotension. Therefore, you were started on a medication called HYDROCORTISONE. Hydrocortisone replaces the cortisol that your body is not making in order to INCREASE your blood pressure. Please take the HYDROCORTISONE as directed: 20mg by mouth IN THE MORNING AND 10mg by mouth IN THE EVENING. This medication, hydrocortisone, will help increase your blood pressure so that you do not become lightheaded or dizzy. You were also started on a medication called GABAPENTIN, which is used to treat conditions such as restless leg syndrome. Please continue to take this medication as prescribed to help with your restless leg syndrome! You were also started on a MAGNESIUM SUPPLEMENT as your magnesium level was discovered to be low. THE ABOVE PRESCRIPTIONS HAVE BEEN SENT TO [facility] ON [facility] IN [place]! RECOMMENDATIONS FOR FOLLOW-UP: Please attend your PCP follow-up appointment as outlined below! Date & Time: 09/12/2024 @ 11:00 AM Provider: AD Lee Location: [facility] You will be contacted very soon by Dr. Kanu Maravilla's office staff to schedule a follow-up appointment. Please ensure this follow-up appointment occurs within the next 1-2 weeks! Seek medical attention if you have: * temperature above 100.4F * chest pain or trouble breathing * abdominal pain, nausea, vomiting * diarrhea, dark stools or bloody stools * any unanswered questions or concerns Call 911 if symptoms are severe. Please take good care of yourself! It has been a pleasure taking care of you. If you have any questions regarding your recent hospitalization please contact [facility] and [facility] @ [phone]. Total Time Total Time Spent Total Time Spent (In Minutes): 70 Supervising Physician Co-Signing Physician Notes Patient is seen and examined at bedside. Eager to get discharged. Doing well today. Diarrhea much improved. No new complaints today. On exam patient is moderately built and nourished, no apparent distress, normocephalic atraumatic, EOMI, normal breath sounds, clear to auscultation, S1-S2, no murmur, no pedal edema, abdomen soft, nontender, normal bowel sounds, alert, awake, oriented, grossly no focal deficits. Patient is currently being managed for febrile neutropenia. Likely due to chemotherapy. no obvious source of infection currently. Stool PCR, stool for C. difficile negative. Cultures remain negative. Will discontinue empiric antibiotics. Continue Isolation precautions. received IV fluids. Suspected adrenal insufficiency. Continue IV hydrocortisone>> position to oral hydrocortisone. Blood cultures negative to date. Urine culture negative. Leukopenia, thrombocytopenia improving. Monitor CBC closely. Advised to follow-up with oncology on discharge with repeat blood work. I personally interviewed and examined the patient at bedside. I have reviewed the advanced practitioner's documentation on the date of service referred in note and agree with plan. Patient's care is coordinated with Marion zendejas PA-C. Please refer to the documentation above for details of patient's presentation and for discussion of other issues. I spent a total [id number] coordinating, documenting, and providing care for this patient excluding time spent in the performance of separately billed services or time spent by another provider/QHP.
[2024-09-08 08:55] LABS: Basophils # (auto) 0.02 K/uL (0.00-0.20); Basophils % (auto) 0.9 %; Eosinophils # (auto) 0.01 K/uL (0.00-0.50); Eosinophils % (auto) 0.5 %; Immature Granulocytes # (auto) 0.11 K/uL (0.01-0.20); Lymphocytes # (auto) 0.66 K/uL (1.20-3.40); Lymphocytes % (auto) 29.7 %; Monocytes # (auto) 0.41 K/uL (0.11-0.59); Monocytes % (auto) 18.5 %; Neutrophils # (auto) 1.01 K/uL (1.40-6.50); Neutrophils % (auto) 45.4 %
[2024-09-08 11:04] VITALS: PULSE 72; RESP 14; O2SAT 98
[2024-09-08 11:46] VITALS: BP 109/72
== END 2024-09-08 13:00 | disposition home or self-care (01) | DRG 809 ==
LOC: ED 09:52 → SUATTDRO 12:48 → 2W 12:48
DX: D70.1 Agranulocytosis secondary to cancer chemotherapy; G25.81 Restless legs syndrome; R00.0 Tachycardia, unspecified; C50.919 Malignant neoplasm of unspecified site of unspecified female breast; E23.0 Hypopituitarism; T45.1X5A Adverse effect of antineoplastic and immunosuppressive drugs, initial encounter; Y92.009 Unspecified place in unspecified non-institutional (private) residence as the place of occurrence of the external cause; D61.810 Antineoplastic chemotherapy induced pancytopenia; E27.1 Primary adrenocortical insufficiency; E83.42 Hypomagnesemia; Z17.421 Hormone receptor negative with human epidermal growth factor receptor 2 negative status; I95.2 Hypotension due to drugs; R50.81 Fever presenting with conditions classified elsewhere; D84.821 Immunodeficiency due to drugs; E87.1 Hypo-osmolality and hyponatremia

== ENCOUNTER 2024-10-31 13:43 | Inpatient (IN) ==
--- NOTE | 2024-10-31 14:25 | XRay Report ---
XR chest 1V portable CLINICAL HISTORY: Sepsis COMPARISON STUDY: 10/06/2024 FINDINGS: Stable right chest port. Heart size and pulmonary vasculature are normal. No effusion, cons olidation, or pneumothorax. IMPRESSION: No acute findings. ACT 112: Negative or not required by law. Electronically signed by: Shayan Gomez M.D. 10/31/2024 2:23 PM
[2024-10-31] MEDS: SODIUM CHLORIDE 0.9% 1,000 ML IV SCH ×2 (14:30→20:38)
[2024-10-31 14:42] LABS: Base Excess VBG -0.2 mEq/L; HCO3 VBG 23 mmol/L; Oxygen Saturation VBG 74.8 %; PCO2 VBG 31 mmHg (38-50); PO2 VBG 45 mmHg; pH VBG 7.47 (7.36-7.41)
[2024-10-31 14:48] LABS: Hematocrit (blood only) 23.9 % (37.0-47.0); Hemoglobin 8.3 g/dl (12.0-16.0); Mean Corpuscular Hemoglobin 32.3 pg (25.0-34.0); Mean Corpuscular Hgb Conc 34.7 g/dL (32.0-36.0); Mean Platelet Volume 10.9 fL (9.4-12.4); Platelet Count 25 K/uL (130-400); RDW Coefficient of Variation 12.3 % (11.5-14.5); RDW Standard Deviation 40.8 fL (36.4-46.3); Red Blood Count 2.57 M/uL (4.20-5.40); White Blood Count 0.74 K/ul (4.8-10.8)
[2024-10-31 15:02] LABS: Albumin Level 3.9 gm/dl (3.4-5.0); BUN Creatinine Ratio 15.5 (10-20); Bilirubin Direct 0.2 mg/dl (0-0.2); Bilirubin,Total 0.9 mg/dl (0.2-1.0); Calcium 8.9 mg/dl (8.6-10.3); Creatinine Clr Calc Pharmacy 126.7 ml/min; Magnesium 1.5 mg/dl (1.7-2.4); Total Protein 6.2 gm/dl (6.0-8.3)
--- NOTE | 2024-10-31 15:03 | Electrocardiogram Report ---
Test Reason : Blood Pressure : */* mmHG Vent. Rate : 93 BPM Atrial Rate : 93 BPM P-R Int : 196 ms QRS Dur : 72 ms QT Int : 352 ms P-R-T Axes : 46 28 33 degrees QTcB Int : 437 ms Normal sinus rhythm Nonspecific ST abnormality When compared with ECG of 05-Sep-2024 10:35, No significant change was found Confirmed by Henry Romero ([id number]) on 10/31/2024 3:03:32 PM Referred By: Confirmed By: Henry Romero
[2024-10-31 15:07] LABS: RBC Morphology Unremarkable; Troponin I High Sensitivity 9.7 pg/ml (0-14)
[2024-10-31] MEDS: CEFEPIME 2000MG 2,000 MG/20 ML SYR IV STA (15:08)
[2024-10-31 15:10] LABS: Basophils # (auto) 0.01 K/uL (0.00-0.20); Basophils % (auto) 1.4 %; Eosinophils # (auto) 0.07 K/uL (0.00-0.50); Eosinophils % (auto) 9.5 %; Lymphocytes % (auto) 81.1 %; Monocytes # (auto) 0.05 K/uL (0.11-0.59); Monocytes % (auto) 6.8 %; Neutrophils # (auto) 0.01 K/uL (1.40-6.50); Neutrophils % (auto) 1.2 %
[2024-10-31 15:14] LABS: Partial Thromboplastin Time 28 Seconds (21-31); Prothrombin Time 10.7 Seconds (9.0-12.0)
[2024-10-31 15:38] LABS: Adenovirus PCR Not Detected (NotDetected); Bordetella parapertussis PCR Not Detected (NotDetected); Bordetella pertussis PCR Not Detected (NotDetected); Chlamydia pneumoniae PCR Not Detected (NotDetected); Coronavirus 229E PCR Not Detected (NotDetected); Coronavirus CoV-2 (COVID19)PCR Not Detected (NotDetected); Coronavirus HKU1 PCR Not Detected (NotDetected); Coronavirus NL63 PCR Not Detected (NotDetected); Coronavirus OC43PCR Not Detected (NotDetected); Human Metapneumovirus PCR Not Detected (NotDetected); Influenza A PCR Not Detected (NotDetected); Influenza B PCR Not Detected (NotDetected); Mycoplasma pneumoniae PCR Not Detected (NotDetected); Parainfluenza Virus 1 PCR Not Detected (NotDetected); Parainfluenza Virus 2 PCR Not Detected (NotDetected); Parainfluenza Virus 3 PCR Not Detected (NotDetected); Parainfluenza Virus 4 PCR Not Detected (NotDetected); Respiratory Syncytial VirusPCR Not Detected (NotDetected); Rhinovirus/Enterovirus PCR Not Detected (NotDetected)
[2024-10-31] MEDS: OPTIRAY 320 125ml IV ONE (15:38)
[2024-10-31] MEDS: MAGNESIUM SULFATE / D5W 1 GM/100 ML BAG IV STA (15:47)
[2024-10-31 15:52] LABS: iSTAT Creatinine 0.8 mg/dl (0.6-1.3); iSTAT Hemoglobin 7.1 g/dl (12.0-16.0); iSTAT Ionized Calcium 1.23 mmol/l (1.12-1.32)
--- NOTE | 2024-10-31 16:05 | CT Scan Report ---
CT angio chest PE protocol CT DOSE: 509.61 mGy.cm HISTORY: ro pe. TECHNIQUE: Multiple CTA images of the chest were obtained after the intravenous administration of 150 ml Optiray. Coronal and sagittal MIPS were obtained from the axial data set and were submitted for review. All measurements were obtained according to NASCET criteria. A dose lowering technique was u tilized adhering to the principles of ALARA. COMPARISON STUDY: None FINDINGS: There is no pulmonary consolidation or pleural effusion. No pneumothorax. No thoracic aorti c dissection or aneurysm. No pulmonary embolism. No pericardial effusion. No enlarged adenopathy. No acute osseous findings. IMPRESSION: No pulmonary embolism or pneumonia seen. ACT 112: Negative or not required by law. The above report was generated using voice recognition software. It may contain grammatical, syntax o r spelling errors. Electronically signed by: Shayan Gomez M.D. 10/31/2024 4:03 PM
[2024-10-31 16:49] LABS: Appearance Urine Clear (Clear); Bilirubin Urine Negative (Negative); Blood Urine Negative (Negative); Color Urine Yellow; Glucose Urine UA Negative (Negative); Ketones Urine Negative (Negative); Leukocyte Esterase Urine Negative (Negative); Nitrite Urine Negative (Negative); Protein Urine Negative (Negative); Specific Gravity Urine 1.018 (1.000-1.030); Urobilinogen Urine Negative (Negative)
--- NOTE | 2024-10-31 16:59 | History & Physical Report ---
Date of Service October 31, 2024 Assessment & Plan (1) Immunosuppressed due to chemotherapy: (2) Triple negative breast cancer: (3) Primary adrenal insufficiency: (4) Hypomagnesemia: Plan Febrile Neutropenia - Admit to med tele - maintain strict neutropenic precautions - Follow BC x 2 peripheral obained, [facility] - Add on stool culture, stool biofire, C.diff and hemocult with diarrhea noted today - CT abd/pelvis to r/o intraabdominal process with diarrhea x 2 days - Left labia lesion/blister - allow vaseline for supportive care. Given 1 dose diflucan in the ER for possible yeast infection. Pt and deny STI/change in sexual partners. Appears to be Herpetic lesion? Pt reports initially was itchy. Current chemo immunosuppression and increased stress could cause outbreak. Check HSV 1 + 2, genital culture, chlamydia, GC, trichomonas, syphilis to r/o. - Suspected UTI, outpatient EPIC UA is positive for infection from this morning, urine culture pending. Here UA appears clean, have sent Urine for cu lture here as well. Follow outpatient UCx. Hypomagnesemia - Mag 1.5, will replace with 2 G IV, follow am labs - Add daily slow-mag PO Triple Negative Breast Cancer 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 Currently completed phase 1 of the treatment, (Paclitaxel, carboplatin, Keytruda). Keytruda stopped. One more round to go to complete phase 2. - Current Regimen: Actively on Phase 2, Adriamycin, cyclophosphamide. Last round completed on 10/23/24. Had pefilgrastim on 10/24 -- will last 14 days for the GCSF, - ANC 10 on admission, monitor - Last MRI on 09/07 was negative - Follow up with [facility] for surgical and plastics referral for possible left lumpectomy. Hypotension due to Primary pituitary insufficiency due to Keytruda - hydrocortisone 15 mg PO QAM and 5 mg QPM -- pt reports has reduced this to 10 +5 -- will need to further loan counselor prior to discharge - Monitor BP DVT ppx: teds, scds Lines: PIV x 1, Mediport x 1 FEN/GI: Regular diet, neutropenic precautions, no fresh fruit or vegetable unless able to be peeled CODE: Full code Dispo: From home, likely to remain in the hospital x 1-2 days I spent a total of 80 minutes with greater than 50% of that time face to face with the patient, personally reviewing all current laboratories, imaging studies, past medication reconciliation, outpatient chart review, and discussion with specialists to collaborate care for the patient excluding time spent in the performance of separately billed services or time spent by another provider/QHP. Please see attending documentation for corrections and/or additions. History of Present Illness Chief Complaint: Fever Primary Care Provider: AD Lee This is a 29 yo F with PMHx of Left triple negative breast cancer, diagnosed Mar 2024, follows with Dr. Kanu Maravilla, currently receiving neoadjuvant chemotherapy and is on phase 2 which includes Adriamycin + cyclophosphamide(cytoxan) 1240 mg every 3 weeks x 4. She tested positive for rhinovirus during last treatment cycle. Hydrocortisone for adrenal insufficiency is currently 15 mg QAM and +5 mg QPM due to anxiety (was tapered down). Pt states she is taking 10 +5 due to anxiety. Oncologist discontinued Keytruda from all future treatments earlier this month. Most recent cycle was on 10/24/24. She is getting pegfilgrastim on D2 s/p treatments and and hydration with 1 L NSS over two hours. Plan is for tentative left lumpectomy and biopsy after completion of neoadjuvant chemotherapy and is meeting with Surgery and Plastic consult scheduled at [facility] next week. She would finish phase 2 after next cycle tentatively scheduled on 11/13. Her genetics work up negative. She presented to the cancer center today for dehydration to have 1 L infusion of normal saline. She presumed that she was dehydrated. Patient reports that in the last week she has increasing fatigue, poor p.o. intake, disinterest in food and has not been able to tolerate much, She is also intermittently nauseous. Diarrhea occurring 3 times per day in the past 2 days. Today is the first that fever was noted with sweats/chills. She admits to having acute swelling of the labia (left inner) with a small blister area and burning of the skin when she urinates. No discharge, no hx of STI. No new sexual partners between her or . Denies dysuria, increase in frequency or hematuria. No bleeding in stool or when brushing teeth. She also admits to having a weight loss of approximately 15 pounds over the past 2 months going down from 200 to 185 pounds. She has not been using any protein supplements. We discussed this today and she is willing to try while here in the hospital. Her is present at bedside and supports the history. She does report her daughter turned 1 on 10/30 and they were planning on having a first birthday republican with family and friends tomorrow. We discussed moving this republican to the following weekend due to her current status and needing admission to the hospital. Allergies Allergy/AdvReac Type Severity Reaction Status Date / Time No Known Allergies Allergy Verified 10/06/24 12:13 Home Medications Medication Instructions Recorded Confirmed Type olanzapine 5 mg tablet 5 - 10 mg PO HS PRN Insomnia/Nausea 09/05/24 10/31/24 History ondansetron HCl 8 mg tablet 8 mg PO Q8H PRN Nausea And Vomiting 09/05/24 10/31/24 History gabapentin 100 mg capsule 100 mg PO HS #30 caps 09/08/24 10/31/24 Rx magnesium chloride 64 mg 64 mg PO BID #60 tabs 09/08/24 10/31/24 Rx (magnesium chloride) tablet,delayed release (Mag 64) fluoxetine 20 mg capsule 20 mg PO QAM 10/31/24 10/31/24 History hydrocortisone 10 mg tablet 15 mg PO QAM 10/31/24 10/31/24 History hydrocortisone 5 mg tablet 5 mg PO . EVERY AFTERNOON 10/31/24 10/31/24 History lorazepam 1 mg tablet 1 mg PO TID PRN Anxiety 10/31/24 10/31/24 History Past Med/Surg History Problem List (Updated 10/31/24 @ 17:56 by Andrea Mosley MD) Primary adrenal insufficiency Hypotension Anemia Thrombocytopenia Hypomagnesemia (Acute) Immunosuppressed due to chemotherapy (Acute) Triple negative breast cancer (Acute) Febrile neutropenia (Acute) Cholelithiasis Anemia, No significant past medical history Medical History Restless leg syndrome Bradycardia normally runs in 50's History of COVID-19 (2019) no hosp; resolved Hx gestational diabetes History of anemia Mother currently breast-feeding Surgical History [place] teeth removed Family History Other No family history of adverse response to anesthesia Social History Smoking Status: Never smoker Second Hand Exposure: No; Do You Dip or Chew Tobacco: No; Hx Alcohol Use: No Hx Substance Use: No Preferred Language: Irish Communication Ability: Effective Mill Roll Rewinder Required: No Beliefs That Will Affect Care: None marital status: Current Living Situation: Spouse Feels Safe at Home: Yes Assistive Devices: None Review of Systems Review of Systems: Constitutional: No fever, sweats or chills Eyes: No diplopia, no worsening or blurred vision ENT: normal hearing, no trouble swallowing Respiratory: No cough, sputum, dyspnea at rest or on exertion Cardiovascular: No chest pain, tightness or palpitations Abdomen: No pain, nausea, vomiting, diarrhea or constipation Musculoskeletal: No joint pain, calf pain, swelling Neurologic: No weakness, numbness/tingling, or balance problems Psychiatric: No anxiety or depression Skin: No rash or itch Physical Exam Physical Exam: General: awake, alert, no apparent distress, + alopecia, + young white female Head: Normocephalic, atraumatic ENT: PERRL, EOMI, no pharyngeal exudate, mucous membranes slightly dry Chest: Clear to auscultation, on room air, no adventitious breath sounds Cardiac: Regular rate and rhythm, no murmur, no JVD, normal peripheral pulses, good capillary refill Abdominal: NABS x 4 quadrants, soft, nondistended, nontender to palpation, no rebound or guarding : left inner labia with blister like lesion with mild surrounding erythema, no vaginal discharge Extremities: Normal inspection, no peripheral edema or erythema, calfs nontender to palpation Psych: Normal mood and affect Neuro: AAO x 3, strength intact bilaterally and rated 5/5, no motor deficits, speech is clear, no peripheral sensory deficits Results & Data Results & Data Vital Signs (Past 12 Hours) Vital Signs Temp Pulse Pulse Resp BP BP Pulse Ox 10/31/24 16:15 84 17 100/61 100 10/31/24 15:52 36.9 C 82 16 93/43 L 77 L 10/31/24 14:36 78 20 125/69 98 10/31/24 14:25 90 10/31/24 14:21 84 16 97/67 L 98 10/31/24 13:57 37.0 C 99 H 17 99/71 L 97 10/31/24 13:44 98 10/31/24 13:44 86 20 98/54 L 98 O2 Del Method 10/31/24 16:15 Room Air 10/31/24 15:52 Room Air 10/31/24 14:36 Room Air 10/31/24 14:25 10/31/24 14:21 Room Air 10/31/24 13:57 Room Air 10/31/24 13:44 Room Air 10/31/24 13:44 Room Air Laboratory Results 10/31/24 15:07 Aerobic Blood Culture - Pending Blood Anaerobic Blood Culture - Pending 10/31/24 14:22 Aerobic Blood Culture - Pending Blood Anaerobic Blood Culture - Pending 10/31/24 10/31/24 10/31/24 16:30 14:32 14:24 WBC RBC Hgb POC Hgb 7.1 L Hct POC Hct 21 L MCV MCH MCHC RDW Std Deviation RDW Coeff of Karey Plt Count MPV Immature Gran % (Auto) Neut % (Auto) Lymph % (Auto) [place] % (Auto) Eos % (Auto) Baso % (Auto) Neut # (Auto) Lymph # (Auto) [place] # (Auto) Eos # (Auto) Baso # (Auto) Immature Gran # (Auto) RBC Morphology PT INR APTT PTT Ratio VBG pH VBG pCO2 VBG pO2 VBG HCO3 VBG O2 Saturation VBG Base Excess POC Sodium 135 Sodium POC Potassium 4.0 Potassium POC Chloride 102 Chloride Carbon Dioxide POC Total CO2 21 L Anion Gap POC Anion Gap 17.0 POC BUN 9 BUN Creatinine POC Creatinine 0.8 Est Cr Clr Drug Dosing eGFR BUN/Creatinine Ratio Glucose POC Glucose (other) 91 Lactate 0.9 Calcium POC Ioniz Calcium Lilian 1.23 Magnesium Total Bilirubin Direct Bilirubin AST ALT Alkaline Phosphatase Troponin I High Sens Total Protein Albumin Procalcitonin Urine Color Yellow Urine Appearance Clear Urine pH 7.0 Ur Specific [place] 1.018 Urine Protein Negative Urine Glucose (UA) Negative Urine Ketones Negative Urine Blood Negative Urine Nitrite Negative Urine Bilirubin Negative Urine Urobilinogen Negative Ur Leukocyte Esterase Negative Urine Comment Adenovirus (PCR) B. pertussis DNA (PCR) B.parapertussis DNA PCR C. pneumoniae DNA (PCR) Coronavirus OC43 (PCR) Coronavirus HKU1 (PCR) Coronavirus 229E (PCR) SARS-CoV-2 (PCR) Coronavirus NL63 (PCR) Human Metapneumovir PCR Influenza Type A (PCR) Influenza Type B (PCR) M. pneumoniae (PCR) Parainfluenza 1 (PCR) Parainfluenza 2 (PCR) Parainfluenza 3 (PCR) Parainfluenza 4 (PCR) RSV (PCR) Entero/Rhino (PCR) 10/31/24 10/31/24 14:22 14:21 WBC 0.74 L* RBC 2.57 L Hgb 8.3 L POC Hgb Hct 23.9 L POC Hct MCV 93.0 MCH 32.3 MCHC 34.7 RDW Std Deviation 40.8 RDW Coeff of Karey 12.3 Plt Count 25 L* MPV 10.9 Immature Gran % (Auto) 0.0 Neut % (Auto) 1.2 Lymph % (Auto) 81.1 [place] % (Auto) 6.8 Eos % (Auto) 9.5 Baso % (Auto) 1.4 Neut # (Auto) 0.01 L* Lymph # (Auto) 0.60 L [place] # (Auto) 0.05 L Eos # (Auto) 0.07 Baso # (Auto) 0.01 Immature Gran # (Auto) 0.00 L RBC Morphology Unremarkable PT 10.7 INR 1.0 APTT 28 PTT Ratio 1.0 VBG pH 7.47 H VBG pCO2 31 L VBG pO2 45 VBG HCO3 23 VBG O2 Saturation 74.8 VBG Base Excess -0.2 POC Sodium Sodium 136 POC Potassium Potassium 4.0 POC Chloride Chloride 105 Carbon Dioxide 25 POC Total CO2 Anion Gap 6 POC Anion Gap POC BUN BUN 11 Creatinine 0.71 POC Creatinine Est Cr Clr Drug Dosing 126.7 eGFR 117.23 BUN/Creatinine Ratio 15.5 Glucose 92 POC Glucose (other) Lactate Calcium 8.9 POC Ioniz Calcium Lilian Magnesium 1.5 L Total Bilirubin 0.9 Direct Bilirubin 0.2 AST 9 L ALT 8 Alkaline Phosphatase 64 Troponin I High Sens 9.7 Total Protein 6.2 Albumin 3.9 Procalcitonin 0.07 Urine Color Urine Appearance Urine pH Ur Specific [place] Urine Protein Urine Glucose (UA) Urine Ketones Urine Blood Urine Nitrite Urine Bilirubin Urine Urobilinogen Ur Leukocyte Esterase Urine Comment Adenovirus (PCR) Not Detected B. pertussis DNA (PCR) Not Detected B.parapertussis DNA PCR Not Detected C. pneumoniae DNA (PCR) Not Detected Coronavirus OC43 (PCR) Not Detected Coronavirus HKU1 (PCR) Not Detected Coronavirus 229E (PCR) Not Detected SARS-CoV-2 (PCR) Not Detected Coronavirus NL63 (PCR) Not Detected Human Metapneumovir PCR Not Detected Influenza Type A (PCR) Not Detected Influenza Type B (PCR) Not Detected M. pneumoniae (PCR) Not Detected Parainfluenza 1 (PCR) Not Detected Parainfluenza 2 (PCR) Not Detected Parainfluenza 3 (PCR) Not Detected Parainfluenza 4 (PCR) Not Detected RSV (PCR) Not Detected Entero/Rhino (PCR) Not Detected Diagnostic Findings Chest CTA 10/31/24 14:06 CT angio chest PE protocol CT DOSE: 509.61 mGy.cm HISTORY: ro pe. TECHNIQUE: Multiple CTA images of the chest were obtained after the intravenous administration of 150 ml Optiray. Coronal and sagittal MIPS were obtained from the axial data set and were submitted for review. All measurements were obtained according to NASCET criteria. A dose lowering technique was utilized adhering to the principles of ALARA. COMPARISON STUDY: None FINDINGS: There is no pulmonary consolidation or pleural effusion. No pneumothorax. No thoracic aortic dissection or aneurysm. No pulmonary embolism. No pericardial effusion. No enlarged adenopathy. No acute osseous findings. IMPRESSION: No pulmonary embolism or pneumonia seen. ACT 112: Negative or not required by law. The above report was generated using voice recognition software. It may contain grammatical, syntax or spelling errors. Electronically signed by: Shayan Gomez M.D. 10/31/2024 4:03 PM Chest X-Ray 10/31/24 14:06 XR chest 1V portable CLINICAL HISTORY: Sepsis COMPARISON STUDY: 10/06/2024 FINDINGS: Stable right chest port. Heart size and pulmonary vasculature are normal. No effusion, consolidation, or pneumothorax. IMPRESSION: No acute findings. ACT 112: Negative or not required by law. Electronically signed by: Shayan Gomez M.D. 10/31/2024 2:23 PM Code Status & VTE Plan Code Status Full code Supervising Physician Co-Signing Physician Notes Patient seen and examined at bedside. Accompanied by and mother. Patient has not been feeling well for 5 days. On chemotherapy for triple negative breast cancer, last dose 1 week ago. Has been having diarrhea, several times per day. Otherwise slightly SOB along with fatigue and weakness as notable symptoms. Patient also has labial ulceration that is new. On exam, labial ulceration noted per Jeanie Mckay PA-C examination, trace nonpitting edema in legs bilaterally, otherwise unremarkable physical exam. Tachycardic, mildly hypotensive but per patient around baseline. Severe pancytopenia and neutropenia consistent with chemotherapy mathew. Mg of 1.5 and replenished. Patient has febrile neutropenia without clear source. Potential sources include diarrhea, labial sore, soft tissue infection (unlikely given no clear findings on exam), viral illness of chest (possible but less likely given Ct imaging showing no acute abnormality). Treat empirically with cefepime, f/u blood cultures, check stool biofire/respiratory biofire, swab labial lesion and do STD screen, check CT abdomen/pelvis with contrast. If no source found could possibly discharge on empiric augmentin/ciprofloxacin. Likely ID consult in morning unless clear source identified. Anticipate 1-3 day hospital stay pending above workup. I have seen and discussed the case with the collaborating advanced practitioner. I agree with the above H&P. I have reviewed and confirmed the patients medical history, the findings on physical examination, and the patients diagnosis and treatment plan with Jeanie Mckay PA-C and agree with the information documented. I spent a total of 20 minutes coordinating, documenting, and providing care for this patient excluding time spent in the performance of separately billed services. All of the aforementioned completed outside of collaborating with the assigned advanced practitioner for a full treatment plan. I have reviewed the advanced practitioner's documentation, and I agree with, and take responsibility for the plan of care
[2024-10-31] MEDS: FLUCONAZOLE 50 MG TAB PO ONE (17:07)
[2024-10-31] MEDS: MAGNESIUM SULFATE / D5W 1 GM/100 ML BAG IV ONE ×2 (17:55→23:42)
--- NOTE | 2024-10-31 17:56 | Emergency Department Note ---
History of Present Illness General Chief complaint: Fever Stated complaint: NEUTRPENIC FEVER Time Seen by Provider: 10/31/24 14:05 History of Present Illness Provider complaint: Fever 29-year-old female presents emergency department for fever. Patient has breast cancer and is under the care of Dr. Kanu Maravilla from [facility] oncology. She reports she had a fever of 101.5 today and has been having shortness of breath. No abdominal pain. No nausea vomiting diarrhea. No headache. Home Medications Medication Instructions Recorded Confirmed Type olanzapine 5 mg tablet 5 - 10 mg PO HS PRN Insomnia/Nausea 09/05/24 10/31/24 History ondansetron HCl 8 mg tablet 8 mg PO Q8H PRN Nausea And Vomiting 09/05/24 10/31/24 History gabapentin 100 mg capsule 100 mg PO HS #30 caps 09/08/24 10/31/24 Rx magnesium chloride 64 mg 64 mg PO BID #60 tabs 09/08/24 10/31/24 Rx (magnesium chloride) tablet,delayed release (Mag 64) fluoxetine 20 mg capsule 20 mg PO QAM 10/31/24 10/31/24 History hydrocortisone 10 mg tablet 10 mg PO QAM 10/31/24 10/31/24 History hydrocortisone 5 mg tablet 5 mg PO . EVERY AFTERNOON 10/31/24 10/31/24 History lorazepam 1 mg tablet 1 mg PO TID PRN Anxiety 10/31/24 10/31/24 History Allergies Allergy/AdvReac Type Severity Reaction Status Date / Time No Known Allergies Allergy Verified 10/06/24 12:13 Past Med/Surg History Problem List (Updated 10/31/24 @ 17:56 by Andrea Mosley MD) Primary adrenal insufficiency Hypotension Anemia Thrombocytopenia Hypomagnesemia (Acute) Immunosuppressed due to chemotherapy (Acute) Triple negative breast cancer (Acute) Febrile neutropenia (Acute) Cholelithiasis Anemia, No significant past medical history Medical History Restless leg syndrome Bradycardia normally runs in 50's History of COVID-19 (2019) no hosp; resolved Hx gestational diabetes History of anemia Mother currently breast-feeding Surgical History Nenzel teeth removed Family History Other No family history of adverse response to anesthesia Social History Smoking Status: Never smoker Second Hand Exposure: No; Do You Dip or Chew Tobacco: No; Hx Alcohol Use: No Hx Substance Use: No Preferred Language: Bengali Communication Ability: Effective Vice President Education Required: No Beliefs That Will Affect Care: None marital status: Current Living Situation: Spouse Feels Safe at Home: Yes Assistive Devices: None Physical Exam Vital Signs Vital Signs - 24 hr 10/31/24 13:44 10/31/24 13:44 10/31/24 13:57 Temperature 37.0 C Temperature Source Oral Pulse Rate 99 H Pulse Rate [Right Brachial] 86 Pulse Rhythm [Right Brachial] Regular Pulse Strength [Right Brachial] Normal Respiratory Rate 20 17 Respiratory Effort / Characteristics Non-Labored Non-Labored Spontaneous Respiratory Depth Normal Normal Respiratory Pattern Regular Blood Pressure 99/71 L Blood Pressure [Right Arm] 98/54 L Blood Pressure Mean 80 Blood Pressure Mean [Right Arm] 68 Blood Pressure Position Sitting Blood Pressure Position [Right Arm] Lying Pulse Oximetry 98 98 97 Oxygen Delivery Method Room Air Room Air Room Air Sepsis Recent Fever Within 48 Hours No Sepsis New/Unexplained Change in Mental Status N/A Sepsis Action Taken by Nursing No Action Required 10/31/24 14:21 10/31/24 14:25 10/31/24 14:36 Temperature Temperature Source Pulse Rate 90 Pulse Rate [Right Brachial] 84 78 Pulse Rhythm [Right Brachial] Regular Regular Pulse Strength [Right Brachial] Normal Normal Respiratory Rate 16 20 Respiratory Effort / Characteristics Non-Labored Non-Labored Respiratory Depth Normal Normal Respiratory Pattern Regular Regular Blood Pressure Blood Pressure [Right Arm] 97/67 L 125/69 Blood Pressure Mean Blood Pressure Mean [Right Arm] 77 87 Blood Pressure Position Blood Pressure Position [Right Arm] Sitting Sitting Pulse Oximetry 98 98 Oxygen Delivery Method Room Air Room Air Sepsis Recent Fever Within 48 Hours Sepsis New/Unexplained Change in Mental Status Sepsis Action Taken by Nursing 10/31/24 15:52 10/31/24 16:15 10/31/24 17:06 Temperature 36.9 C Temperature Source Oral Pulse Rate Pulse Rate [Right Brachial] 82 84 95 H Pulse Rhythm [Right Brachial] Regular Pulse Strength [Right Brachial] Normal Respiratory Rate 16 17 20 Respiratory Effort / Characteristics Non-Labored Spontaneous Non-Labored Spontaneous Non-Labored Spontaneous Respiratory Depth Normal Normal Normal Respiratory Pattern Regular Blood Pressure Blood Pressure [Right Arm] 93/43 L 100/61 99/56 L Blood Pressure Mean Blood Pressure Mean [Right Arm] 59 74 70 Blood Pressure Position Blood Pressure Position [Right Arm] Pulse Oximetry 77 L 100 100 Oxygen Delivery Method Room Air Room Air Room Air Sepsis Recent Fever Within 48 Hours Sepsis New/Unexplained Change in Mental Status Sepsis Action Taken by Nursing Physical Exam HENT: Exam performed. - Head: Normocephalic and atraumatic. EYES: Conjunctivae and EOM are normal. Right eye exhibits no discharge. Left eye exhibits no discharge. No scleral icterus. NECK: Normal range of motion. Neck supple. No JVD present. CV: Normal rate, regular rhythm, normal heart sounds and intact distal pulses. There is no peripheral edema. Palpable radial pulses bue. PULM/CHEST: Effort normal and breath sounds normal. No respiratory distress. No stridor. no wheezes. no rales. ABD: The abdomen is soft. There is no tenderness. NEURO: Motor and sensation grossly intact. SKIN: Skin is warm and dry. He is not diaphoretic. PSYCH: normal mood and affect. Behavior is normal. Judgment and thought content normal. Course Course 1405: The patient was evaluated in room C10. A complete history and physical exam was performed Cardiac monitoring: An order was placed for continuous cardiac monitoring. The monitor shows a rate of 90 with sinus rhythm interpreted by nv 1653: Vital signs stable. Labs show white blood cell count 0.74 hemoglobin 8.3 platelet count 25 neutrophil count 0.01. Imaging is unremarkable. Discussed the results with Dr. Maravilla, patient's oncologist. He and I both agree that the patient should be admitted and received cefepime and follow blood cultures. He states nothing needs to be done about the patient's platelet count at this time. [facility]. Administered Medications Discontinued Medications Fluconazole (Fluconazole 50 Mg Tab) 150 mg PO NOW ONE Stop: 10/31/24 16:49 Last Admin: 10/31/24 17:07 Dose: 150 mg Documented By: NRB Sodium Chloride (Nss) 1,000 mls @ 999 mls/hr IV .Q1H1M ADEOLA Stop: 10/31/24 15:15 Last Infusion: 10/31/24 16:45 Dose: Infused Documented By: Admin: 10/31/24 14:30 Dose: 999 mls/hr Documented By: PRAFUL Cefepime HCl (Maxipime 2000mg) 2,000 mg in 20 mls @ 5 mls/min IV NOW STA; Protocol Stop: 10/31/24 14:51 Last Admin: 10/31/24 15:08 Dose: 5 mls/min Documented By: PRAFUL Magnesium Sulfate/Dextrose (Magnesium Sulfate / D5w) 1 gm in 100 mls @ 100 mls/hr IV NOW STA Stop: 10/31/24 16:06 Last Infusion: 10/31/24 16:47 Dose: Infused Documented By: Admin: 10/31/24 15:47 Dose: 100 mls/hr Documented By: YU Ioversol (Optiray 320 125ml) 115 ml IV ONCE ONE Stop: 10/31/24 15:39 Last Admin: 10/31/24 15:38 Dose: 115 ml Documented By: BERT Medical Decision Making Laboratory Data Attestation: I reviewed the patient's lab results. 10/31/24 14:22 10/31/24 14:22 Lab Results 10/31/24 10/31/24 10/31/24 Range/Units 14:21 14:22 14:24 WBC 0.74 L* (4.8-10.8) K/ul RBC 2.57 L (4.20-5.40) M/uL Hgb 8.3 L (12.0-16.0) g/dl POC Hgb (12.0-16.0) g/dl Hct 23.9 L (37.0-47.0) % POC Hct (37-47) % MCV 93.0 (80.0-100.0) fL MCH 32.3 (25.0-34.0) pg MCHC 34.7 (32.0-36.0) g/dL RDW Std Deviation 40.8 (36.4-46.3) fL RDW Coeff of Karey 12.3 (11.5-14.5) % Plt Count 25 L* (130-400) K/uL MPV 10.9 (9.4-12.4) fL Immature Gran % (Auto) 0.0 % Neut % (Auto) 1.2 % Lymph % (Auto) 81.1 % [place] % (Auto) 6.8 % Eos % (Auto) 9.5 % Baso % (Auto) 1.4 % Neut # (Auto) 0.01 L* (1.40-6.50) K/uL Lymph # (Auto) 0.60 L (1.20-3.40) K/uL [place] # (Auto) 0.05 L (0.11-0.59) K/uL Eos # (Auto) 0.07 (0.00-0.50) K/uL Baso # (Auto) 0.01 (0.00-0.20) K/uL Immature Gran # (Auto) 0.00 L (0.01-0.20) K/uL RBC Morphology Unremarkable PT 10.7 (9.0-12.0) Seconds INR 1.0 (0.9-1.1) APTT 28 (21-31) Seconds PTT Ratio 1.0 VBG pH 7.47 H (7.36-7.41) VBG pCO2 31 L (38-50) mmHg VBG pO2 45 mmHg VBG HCO3 23 mmol/L VBG O2 Saturation 74.8 % VBG Base Excess -0.2 mEq/L POC Sodium (135-144) mmol/L Sodium 136 (136-145) mmol/L POC Potassium (3.3-5.0) mmol/L Potassium 4.0 (3.5-5.1) mmol/L POC Chloride (101-112) mmol/L Chloride 105 (98-107) mmol/L Carbon Dioxide 25 (21-32) mmol/L POC Total CO2 (24-31) mmol/L Anion Gap 6 (3-11) POC Anion Gap (16-25) mmol/L POC BUN (7-18) mg/dl BUN 11 (6-23) mg/dl Creatinine 0.71 (0.6-1.2) mg/dl POC Creatinine (0.6-1.3) mg/dl Est Cr Clr Drug Dosing 126.7 ml/min eGFR 117.23 BUN/Creatinine Ratio 15.5 (10-20) Glucose 92 (70-99(Fasting)) mg/dl POC Glucose (other) (70-99) mg/dl Lactate 0.9 (0.4-2.0) mmol/L Calcium 8.9 (8.6-10.3) mg/dl POC Ioniz Calcium Lilian (1.12-1.32) mmol/l Magnesium 1.5 L (1.7-2.4) mg/dl Total Bilirubin 0.9 (0.2-1.0) mg/dl Direct Bilirubin 0.2 (0-0.2) mg/dl AST 9 L (13-39) U/L ALT 8 (7-52) U/L Alkaline Phosphatase 64 (34-104) U/L Troponin I High Sens 9.7 (0-14) pg/ml Total Protein 6.2 (6.0-8.3) gm/dl Albumin 3.9 (3.4-5.0) gm/dl Procalcitonin 0.07 (0-0.5) ng/ml Urine Color Urine Appearance (Clear) Urine pH (4.5-7.5) Ur Specific [place] (1.000-1.030) Urine Protein (Negative) Urine Glucose (UA) (Negative) Urine Ketones (Negative) Urine Blood (Negative) Urine Nitrite (Negative) Urine Bilirubin (Negative) Urine Urobilinogen (Negative) Ur Leukocyte Esterase (Negative) Urine Comment Adenovirus (PCR) Not Detected (NotDetected) B. pertussis DNA (PCR) Not Detected (NotDetected) B.parapertussis DNA PCR Not Detected (NotDetected) C. pneumoniae DNA (PCR) Not Detected (NotDetected) Coronavirus OC43 (PCR) Not Detected (NotDetected) Coronavirus HKU1 (PCR) Not Detected (NotDetected) Coronavirus 229E (PCR) Not Detected (NotDetected) SARS-CoV-2 (PCR) Not Detected (NotDetected) Coronavirus NL63 (PCR) Not Detected (NotDetected) Human Metapneumovir PCR Not Detected (NotDetected) Influenza Type A (PCR) Not Detected (NotDetected) Influenza Type B (PCR) Not Detected (NotDetected) M. pneumoniae (PCR) Not Detected (NotDetected) Parainfluenza 1 (PCR) Not Detected (NotDetected) Parainfluenza 2 (PCR) Not Detected (NotDetected) Parainfluenza 3 (PCR) Not Detected (NotDetected) Parainfluenza 4 (PCR) Not Detected (NotDetected) RSV (PCR) Not Detected (NotDetected) Entero/Rhino (PCR) Not Detected (NotDetected) 10/31/24 10/31/24 Range/Units 14:32 16:30 WBC (4.8-10.8) K/ul RBC (4.20-5.40) M/uL Hgb (12.0-16.0) g/dl POC Hgb 7.1 L (12.0-16.0) g/dl Hct (37.0-47.0) % POC Hct 21 L (37-47) % MCV (80.0-100.0) fL MCH (25.0-34.0) pg MCHC (32.0-36.0) g/dL RDW Std Deviation (36.4-46.3) fL RDW Coeff of Karey (11.5-14.5) % Plt Count (130-400) K/uL MPV (9.4-12.4) fL Immature Gran % (Auto) % Neut % (Auto) % Lymph % (Auto) % [place] % (Auto) % Eos % (Auto) % Baso % (Auto) % Neut # (Auto) (1.40-6.50) K/uL Lymph # (Auto) (1.20-3.40) K/uL [place] # (Auto) (0.11-0.59) K/uL Eos # (Auto) (0.00-0.50) K/uL Baso # (Auto) (0.00-0.20) K/uL Immature Gran # (Auto) (0.01-0.20) K/uL RBC Morphology PT (9.0-12.0) Seconds INR (0.9-1.1) APTT (21-31) Seconds PTT Ratio VBG pH (7.36-7.41) VBG pCO2 (38-50) mmHg VBG pO2 mmHg VBG HCO3 mmol/L VBG O2 Saturation % VBG Base Excess mEq/L POC Sodium 135 (135-144) mmol/L Sodium (136-145) mmol/L POC Potassium 4.0 (3.3-5.0) mmol/L Potassium (3.5-5.1) mmol/L POC Chloride 102 (101-112) mmol/L Chloride (98-107) mmol/L Carbon Dioxide (21-32) mmol/L POC Total CO2 21 L (24-31) mmol/L Anion Gap (3-11) POC Anion Gap 17.0 (16-25) mmol/L POC BUN 9 (7-18) mg/dl BUN (6-23) mg/dl Creatinine (0.6-1.2) mg/dl POC Creatinine 0.8 (0.6-1.3) mg/dl Est Cr Clr Drug Dosing ml/min eGFR BUN/Creatinine Ratio (10-20) Glucose (70-99(Fasting)) mg/dl POC Glucose (other) 91 (70-99) mg/dl Lactate (0.4-2.0) mmol/L Calcium (8.6-10.3) mg/dl POC Ioniz Calcium Lilian 1.23 (1.12-1.32) mmol/l Magnesium (1.7-2.4) mg/dl Total Bilirubin (0.2-1.0) mg/dl Direct Bilirubin (0-0.2) mg/dl AST (13-39) U/L ALT (7-52) U/L Alkaline Phosphatase (34-104) U/L Troponin I High Sens (0-14) pg/ml Total Protein (6.0-8.3) gm/dl Albumin (3.4-5.0) gm/dl Procalcitonin (0-0.5) ng/ml Urine Color Yellow Urine Appearance Clear (Clear) Urine pH 7.0 (4.5-7.5) Ur Specific [place] 1.018 (1.000-1.030) Urine Protein Negative (Negative) Urine Glucose (UA) Negative (Negative) Urine Ketones Negative (Negative) Urine Blood Negative (Negative) Urine Nitrite Negative (Negative) Urine Bilirubin Negative (Negative) Urine Urobilinogen Negative (Negative) Ur Leukocyte Esterase Negative (Negative) Urine Comment Adenovirus (PCR) (NotDetected) B. pertussis DNA (PCR) (NotDetected) B.parapertussis DNA PCR (NotDetected) C. pneumoniae DNA (PCR) (NotDetected) Coronavirus OC43 (PCR) (NotDetected) Coronavirus HKU1 (PCR) (NotDetected) Coronavirus 229E (PCR) (NotDetected) SARS-CoV-2 (PCR) (NotDetected) Coronavirus NL63 (PCR) (NotDetected) Human Metapneumovir PCR (NotDetected) Influenza Type A (PCR) (NotDetected) Influenza Type B (PCR) (NotDetected) M. pneumoniae (PCR) (NotDetected) Parainfluenza 1 (PCR) (NotDetected) Parainfluenza 2 (PCR) (NotDetected) Parainfluenza 3 (PCR) (NotDetected) Parainfluenza 4 (PCR) (NotDetected) RSV (PCR) (NotDetected) Entero/Rhino (PCR) (NotDetected) Imaging Data Radiologist's Impression: Chest CTA 10/31/24 14:06 CT angio chest PE protocol CT DOSE: 509.61 mGy.cm HISTORY: ro pe. TECHNIQUE: Multiple CTA images of the chest were obtained after the intravenous administration of 150 ml Optiray. Coronal and sagittal MIPS were obtained from the axial data set and were submitted for review. All measurements were obtained according to NASCET criteria. A dose lowering technique was utilized adhering to the principles of ALARA. COMPARISON STUDY: None FINDINGS: There is no pulmonary consolidation or pleural effusion. No pneumothorax. No thoracic aortic dissection or aneurysm. No pulmonary embolism. No pericardial effusion. No enlarged adenopathy. No acute osseous findings. IMPRESSION: No pulmonary embolism or pneumonia seen. ACT 112: Negative or not required by law. The above report was generated using voice recognition software. It may contain grammatical, syntax or spelling errors. Electronically signed by: Shayan Gomez M.D. 10/31/2024 4:03 PM Chest X-Ray 10/31/24 14:06 XR chest 1V portable CLINICAL HISTORY: Sepsis COMPARISON STUDY: 10/06/2024 FINDINGS: Stable right chest port. Heart size and pulmonary vasculature are normal. No effusion, consolidation, or pneumothorax. IMPRESSION: No acute findings. ACT 112: Negative or not required by law. Electronically signed by: Shayan Gomez M.D. 10/31/2024 2:23 PM ECG Data Attestation: I personally reviewed and interpreted this ECG as follows: Rate (beats per minute): 93 Rhythm: + normal sinus ECG Intervals/blocks: + Normal MD and + Normal QT-c ECG ST segments: + Normal ST segments Additional Comments: QRS 72 MDM Narrative 1405: The patient was evaluated in room C10. A complete history and physical exam was performed Cardiac monitoring: An order was placed for continuous cardiac monitoring. The monitor shows a rate of 90 with sinus rhythm interpreted by me 1653: Vital signs stable. Labs show white blood cell count 0.74 hemoglobin 8.3 platelet count 25 neutrophil count 0.01. Imaging is unremarkable. Discussed the results with Dr. Maravilla, patient's oncologist. He and I both agree that the patient should be admitted and received cefepime and follow blood cultures. He states nothing needs to be done about the patient's platelet count at this time. [facility]. Impression & Plan Febrile neutropenia Discharge Plan Visit Data Chief Complaint: Fever Stated Complaint: NEUTRPENIC FEVER ED Provider: Andrea Mosley Discharge Problem: Febrile neutropenia Patient Disposition: Admitted As Inpatient Condition: Serious Forms Stand Alone Forms: My [facility] Prescriptions Prescriptions: No Action hydrocortisone 5 mg tablet 5 mg PO . EVERY AFTERNOON lorazepam 1 mg tablet 1 mg PO TID PRN (Reason: Anxiety) fluoxetine 20 mg capsule 20 mg PO QAM hydrocortisone 10 mg tablet 10 mg PO QAM ondansetron HCl 8 mg tablet 8 mg PO Q8H PRN (Reason: Nausea And Vomiting) olanzapine 5 mg tablet 5 - 10 mg PO HS PRN (Reason: Insomnia/Nausea) gabapentin 100 mg Capsule 100 mg PO HS Qty: 30 0RF magnesium chloride [Mag 64] 64 mg Tablet,Delayed Release (Dr/Ec) 64 mg PO BID Qty: 60 0RF Referrals Referrals: Malinda Owens CRNP [Primary Care Provider] -
[2024-10-31] MEDS: OPTIRAY 320 100ml IV ONE (19:45)
[2024-10-31] MEDS ORDERED: SODIUM CHLORIDE 0.9% 1,000 ML IV SCH (20:03)
--- NOTE | 2024-10-31 20:10 | CT Scan Report ---
EXAMINATION: CT of the abdomen and pelvis performed after the administration of IV contrast TECHNIQUE: Helical CT images from the lung bases through the symphysis pubis were obtained with contrast. Coronal and sagittal reformatted images were generated at a workstation for further assessment. Dose reduction techniques were achieved by using automatic exposure control and/or adjustment of mA and/or kV according to patient size and/or use of iterative reconstruction technique. COMPARISON: 02/10/2024 HISTORY: Abdominal pain FINDINGS: Lower chest: No consolidation. No pleural effusion or pneumothorax. Liver: No suspicious liver lesions. Portal veins appear patent. Gallbladder: Cholecystectomy. Spleen: Normal size. Pancreas: No suspicious pancreatic lesions. The pancreatic duct is not dilated. Adrenal glands: No adrenal nodules. Kidneys: No hydronephrosis or obstructing renal stones. Bladder / Pelvic organs: Unremarkable. Bowel: No bowel obstruction. No abnormal bowel wall thickening. The appendix is unremarkable. A small curvilinear area of material in the cecum, is very high in density, and is favored to represent medication. Diffusely fluid-filled large bowel and several loops of small bowel. Lymph nodes: No retroperitoneal, mesenteric, or pelvic lymphadenopathy. Peritoneum / Retroperitoneum: No free fluid or air within the abdomen. Vessels: No infrarenal aortic aneurysm. Bones and soft tissues: No suspicious lesion in the bones. IMPRESSION: Diffusely fluid-filled large bowel and several loops of small bowel compatible with enteritis and a diarrheal illness. No substantial bowel wall thickening. Electronically signed by Henry Parks 10-31-2024 8:10 PM
[2024-10-31] MEDS: ONDANSETRON INJ 2 MG/ML 2 ML VIAL IV PRN (20:35)
[2024-10-31] MEDS ORDERED: CEFEPIME 2000MG 2,000 MG/20 ML SYR IV SCH (22:00)
[2024-10-31] MEDS: PIPERACILLIN/TAZOBACTAM 4.5 GM/100 ML BAG IV ONE (22:18)
[2024-10-31] MEDS: MAGNESIUM CHLORIDE W/CALCIUM 64MG DELAYED REL TAB PO SCH (22:21)
[2024-10-31] MEDS: ACETAMINOPHEN 325 MG TAB PO PRN (22:21)
[2024-10-31] MEDS: GABAPENTIN 100 MG CAP PO SCH (22:22)
--- NOTE | 2024-10-31 23:21 | Communication Note ---
Date of Service: October 31, 2024 Patient still febrile despite ongoing Zosyn Rx. Tachycardic, SBP 90s-100s. Ongoing diarrhea AP Sepsis Neutropenic fever Immunocompromised patient Chronic steroid Rx Add daptomycin for MRSA coverage given [place] Flagyl 1 dose for presumptive C. difficile until stool C. difficile test Decadron 1 dose given borderline BP for possible adrenal insufficiency given chronic steroid Rx.
[2024-10-31] MEDS: KETOROLAC TROMETHAMINE 15 MG/ML VIAL IV ONE (23:41)
[2024-11-01] MEDS: DAPTOmycin 600 MG in SYRINGE 0 ML IV SCH (00:09)
[2024-11-01] MEDS: dexAMETHasone 4 MG in SYRINGE 0 ML IV ONE (00:09)
[2024-11-01] MEDS: metroNIDAZOLE 500 MG/100 ML BAG IV ONE (01:52)
--- OUTSIDE RECORDS SUMMARY | 2024-11-01 03:35 | External Medical Summary ---
Author Name Unknown Address Unknown Organization [id number]:[facility] [id number] [place] [address] Laboratory Report Ordering Provider Test Date Status JASMINE JANSEN 10/31/2024 12:13:07 Final Observation Date Value Abnormality Reference (Units ) Status SYNC LEUKOCYTES IN BLOOD BY AUTOMATED COUNT 10/31/2024 12:13:07 0.74 Below lower panic limits 4.00-10.80 (K/uL) Final Lymphocytes/100 leukocytes in Blood by Manual count 10/31/2024 12:13:07 78.0 Above high normal 18.0-42.0 (%) Final Monocytes/100 leukocytes in Blood by Manual count 10/31/2024 12:13:07 6.0 1.0-11.0 (%) Final Eosinophils/100 leukocytes in Blood by Manual count 10/31/2024 12:13:07 14.0 Above high normal 0.0-6.0 (%) Final Basophils/100 leukocytes in Blood by Manual count 10/31/2024 12:13:07 2.0 0.0-2.0 (%) Final Lymphocytes [#/volume] in Blood by Manual count 10/31/2024 12:13:07 0.58 Below low normal 1.00-4.80 (K/uL) Final Monocytes [#/volume] in Blood by Manual count 10/31/2024 12:13:07 0.04 0.00-1.10 (K/uL) Final Eosinophils [#/volume] in Blood by Manual count 10/31/2024 12:13:07 0.10 0.00-0.70 (K/uL) Final Basophils [#/volume] in Blood by Manual count 10/31/2024 12:13:07 0.01 0.00-0.20 (K/uL) Final Nucleated erythrocytes/100 leukocytes [Ratio] in Blood by Automated count 10/31/2024 12:13:07 Final Variant lymphocytes [Presence] in Blood by Light microscopy 10/31/2024 12:13:07 Present Abnormal None Seen Final Performing Location [facility] [address] [place] [address]
--- OUTSIDE RECORDS SUMMARY | 2024-11-01 03:35 | External Medical Summary | Summary of Care ---
Author Name Unknown Organization [facility] Address [address] [place] [address] Phone [phone] Care Team Providers Care Stereo Equipment Repairer Name Role Phone Owens Ridgemargaret AD Primary Care Provider [phone] Reason for Visit * Reason Comments Chemotherapy C6 D1 Keytruda, A/C and hydration * Episode Based Medications (Routine) - Authorized Specialty Diagnoses / Procedures Referred By Contjeffery t Referred To Contact Diagnoses Triple negative breast cancer (HCC) Encounter for antineoplastic chemotherapy Encounter for prevention of neutropenia due to chemotherapy Procedures IA DOXORUBIC HCL 10 MG VL CHEMO IA CARBOPLATIN INJECTION IA FOSAPREPITANT INJECTION IA INJ PEMBROLIZUMAB IA INJECTION, FULPHILA IA PACLITAXEL INJECTION IA INJ CYCLOPHOSPHAMD AUROMEDIC IA PALONOSETRON HCL Em Ng MD Hematology/Oncology Treatment, [address] [address] Phone: tel: fax: Referral ID Status Reason Start Date Expiration Date V isits Requested Visits Authorized [id number] Authorized 04/30/2024 06/17/2099 [id number] Encounter Details Date Type Department Care Team (Latest Contact Info) Description 09/18/2024 12:30 PM EDT Hem/Onc Treatment Hematology/Oncolog y Treatment, [address] [address] [place], Chair [address] [phone] Triple negative breast cancer (HCC)*; Encounter for antineoplastic chemotherapy; Encounter for prevention of neutropenia due to chemotherapy; Encounter for fertility preservation procedure; Suppression of ovarian secretion Allergies No known active allergiesdocumented as of this encounter (statuses as of 10/26/2024) Medications 19 29-1 MG Oral Tablet Chewable Take by mouth. Activ e Prochlorperazine Maleate 10 MG Oral Tablet (Compazine)Indica tions:Malignant neoplasm of upper-outer quadrant of left breast in female, estrogen receptor negative (HCC),Encounter for antineoplastic chemotherapy,Enco unter for prevention of neutropenia due to chemotherapy Take 1 Tablet by mouth every 6 hours as needed for Nausea. Do not start before May 06, 2024. 30 Tablet 5 Active Additional Information Patient not taking.Reported on 09/12/2024 Lidocaine-Priloca ine 2.5-2.5 % External Cream (Emla)Indications :Malignant neoplasm of upper-outer quadrant of left breast in female, estrogen receptor negative (HCC) APPLY TO SKIN OVER MEDIPORT & COVER 1HR PRIOR TO ACCESSING. 30 g 024 Active Loratadine 10 MG Oral Tablet (Claritin)Indicat ions:Malignant neoplasm of upper-outer quadrant of left breast in female, estrogen receptor negative (HCC) Take 1 tablet by mouth x5 days starting the day before fulphila injection 20 Tablet 024 Active Phenazopyridine HCl 200 MG Oral Tablet (Pyridium)Indicat ions:Dysuria Take 1 Tablet by mouth in the morning and 1 Tablet at noon and 1 Tablet before bedtime. After meals.. 6 Tablet 025 Active Additional Information Patient not taking.Reported on 09/12/2024 Diphenoxylate-Atr opine 2.5-0.025 MG Oral Tablet (Lomotil)Indicati ons:Chemotherapy induced diarrhea Take 1 Tablet by mouth 4 times a day as needed for Diarrhea. 30 Tablet 025 Active oxyBUTYnin Chloride 5 MG Oral Tablet (Ditropan)Indicat ions:Chemotherapy induced diarrhea,Bladder spasm Take 1 Tablet by mouth in the morning and 1 Tablet at noon and 1 Tablet before bedtime. 30 Tablet 025 Active Famotidine 20 MG Oral Tablet (Pepcid)Indicatio ns:Malignant neoplasm of upper-outer quadrant of left breast in female, estrogen receptor negative (HCC),Encounter for antineoplastic chemotherapy Take 1 Tablet by mouth in the morning. 30 Tablet 5 025 Active Ondansetron HCl 8 MG Oral Tablet (Zofran)Indicatio ns:Malignant neoplasm of upper-outer quadrant of left breast in female, estrogen receptor negative (HCC) Take 1 Tablet by mouth every 8 hours as needed for Nausea. 30 Tablet 3 025 2024 Discontinued(R efill) OLANZapine 5 MG Oral TabletIndications :Malignant neoplasm of upper-outer quadrant of left breast in female, estrogen receptor negative (HCC) Take 1-2 Tablets by mouth at bedtime as needed for Insomnia or Nausea. 60 Tablet 1 025 2024 Discontinued(R efill) Gabapentin 100 MG Oral Capsule (Neurontin) 025 2024 Discontinued(R efill) Mag64 64 MG Oral Tablet Delayed Release 025 2024 Discontinued(R efill) Hydrocortisone 10 MG Oral Tablet (Cortef)Indicatio ns:Malignant neoplasm of upper-outer quadrant of left breast in female, estrogen receptor negative (HCC),Encounter for antineoplastic chemotherapy Take 1 tablet in the early afternoon 30 Tablet 5 025 2024 Discontinued Hydrocortisone 20 MG Oral Tablet (Cortef)Indicatio ns:Malignant neoplasm of upper-outer quadrant of left breast in female, estrogen receptor negative (HCC),Encounter for antineoplastic chemotherapy Take 1 Tablet by mouth in the morning. 30 Tablet 5 025 2024 Discontinued documented as of this encounter (statuses as of 10/26/2024) Active Problems Problem Noted Date Diagnosed Date Primary adrenal insufficiency 09/15/2024 Anemia due to antineoplastic chemotherapy 2024 Arterial hypotension 09/15/2024 Dehydration 07/01/2024 Encounter for fertility preservation procedure 1 07/08/2023 Suppression of ovarian secretion 05/08/2024 Encounter for antineoplastic chemotherapy 2023 Encounter for prevention of neutropenia due to c hemotherapy 04/30/2024 Triple negative breast cancer 04/22/2024 Cancer Staging:Clinical: Unsigned Iron deficiency anemia 08/21/2023 Class 1 obesity due to exces s calories without serious comorbidity with body mass index (BMI) of 33.0 to 33.9 in adult 04/03/2023 Overview (04/03/2023): Early glucola documented as of this encounter (statuses as of 10/26/2024) Resolved Problems Problem Noted Date Diagnosed Date Resolved Date Diet controlled gestational diabetes mellitus (GDM) in third trimester 09/20/2023 09/15/2024 Overview (10/31/2023): 09/20/23 Repeated 3hr GTT at [...] and class I obesity. Per review of RUBBER PRESS TENDER documentation of 09/25/23, blood glucose values [...] Recommend nutrition consult with RDN (Registered Dietitian Box Spinner). Lifestyle changes are also indicated including optimizing [...] affec ting management of mother, antepartum 09/14/2023 09/15/2024 Assessment & Plan (10/19/2023 5:34 PM EDT): [...] delivery plan with her primary OB provider. Antepartum anemia complicating 08/14/2023 09/15/2024 Overview (09/20/2023): Receiving IV iron infusions Anemia [...] and folate levels and referral to a panel monitor. If hemoglobin levels are below 8 g/dl, we recommend Maternal Medicine ultrasound for growth every 4 weeks after 24 weeks. Consider a blood transfusion if hemoglobin levels fall below 6 g/dL. ([employer] [facility] Bulletin Number 95, December,). Consider Venofer transfusions if patient labs supportive of iron deficiency anemia with dosing of 300 mg IV weekly x 3 weeks Abnormal glucose tolerance i n mother complicating 04/19/2023 08/31/2023 Overview (04/19/2023): Failed early glucola. 3hr GTT ordered Encounter for supervision of other normal , unspecified trimester 04/03/2023 025 documented as of this encounter (statuses as of 10/26/2024) Immunizations Name Administration Dates Next Due DTP [...] money to get more. 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 Port needle [...] stable condition. * Jaqueline Arenas RN - 09/18/2024 3:33 PM EDT Chair 12 Patient here for treatment after appt with Gabby. Cathflo instilled into port . At 1400 removed 10 ml of blood from port. Treatment initiated. Chemotherapy/Immunotherapy agents: CYTOXAN, DOXORUBICIN, and KEYTRUDA Consent for chemotherapy drug treatment complete, dated, and signed? yes, date - 04/24/24 Treatment lab parameters met? Yes Has treatment weight changed > than 10%? No Treatment preauthorized? Yes VITALS Filed Vitals: BP Readings from Last 2 Encounters: 09/18/24 108/71 09/12/24 86/61 Pulse Readings from Last 2 Encounters: 09/18/24 83 09/12/24 73 Resp Readings from Last 2 Encounters: 09/05/24 22 09/04/24 18 SpO2 Readings from Last 2 Encounters: 09/18/24 98% 09/05/24 94% Temp Readings from Last 2 Encounters: 09/18/24 36.8 °C (98.3 °F) (Tympanic) 09/12/24 37.7 °C (99.8 °F) (Tympanic) Urine protein: N/A Patient education completed [...] Care Team (Late st Contact Info) Description 11/06/2024 10:40 AM EDT Office Visit [facility] [address] [facility] [place] [address] Malinda Owens CRNP [address] [facility] [place] [address] 11/13/2024 8:30 AM EDT Laboratory Laboratory [facility] [place] [address] [facility] [place] [phone] Khris Amato [facility] [address] [place] [address] [address] 11/13/2024 9:00 AM EDT Office Visit Hematology/Oncology [facility] [place] [address] [facility] [place] [phone] Kanu Maravilla MD [address] [facility] [place] [address] 11/13/2024 9:30 AM EDT Hem/Onc Treatment Hematology/Oncology Treatment, [place] [address] [place] [phone] [place], Chair 7 Hem Onc Scenery [address] [facility] [place] [address] 04/27/2025 2:40 PM EST Telemedicine Endocrinology [address] [place], [place] [address] Orlin Miranda MD [address] [place], [place] [address] Health Maintenance Due Date Last Done [...] this encounter Medical Devices Implanted Type Area Home Health Clinical Liaison Device Identifier Shelf Expiration Date Model / Serial / Lot Stent Kev 4fr 11cm - [id number] Implanted:Qty : 1 on 02/08/2024 by Jeffrey Kerr MD at OR [facility] [place] [id number] 08/16/2028 [id number] / / [id number] Description:https://www.doct ordoctor.biz/search/Detail.aspx?result=0 JLS 09/04/2024 Non metallic Port Implant W8f Poly Cath - [id number] Implanted:Qty : 1 on 05/02/2024 by Iam Curry MD at OR [facility] Right: Chest CR BARD : PERIPHERAL VASCULAR [id number] 05/17/2025 [id number] / / [id number] documented as of this encounter Visit Diagnoses Diagnosis Triple negative breast cancer (HCC)- Primary Encounter for antineoplastic chemotherapy Encounter for prevention of neutropenia due to chemotherapy Encounter for fertility preservation procedure 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 documented in this encounter Administered Medications Inactive Administered Medications - up to 3 most recent administrations Medication Order MAR Action Action Date Dose Rate Site Alteplase (Cathflo Activase) inj 2 mg 2 mg, IV Push, ONCE, On Bibi 09/18/24 at 1345, For 1 dose, *Obtain Alteplase (CathFlo Activase) *Reconstitute Alteplase (CathFlo Activase) 2 mg in 2.2 mL sterile water *Instill Alteplase (CathFlo Activase) into occluded lumen(s) *After 30 minutes dwell time in catheter, assess catheter patency by attempting to aspirate blood. If catheter is patent withdraw 3 mL of blood to remove Alteplase (CathFlo Activase) and residual clot. Flush lumen with 10 mL 0.9% normal saline *If catheter function is not restored allow for further dwell up to 120 minutes. *If catheter function is not restored, a second dose of Alteplase (CathFlo Activase) may be administered. *if catheter is still not restored call a physicianIndications:Triple negative breast cancer (HCC),Encounter for antineoplastic chemotherapy,Encounter for prevention of neutropenia due to chemotherapy Given 09/18/2024 1:11 PM EDT 2 mg cycloPHOSphamide (Cytoxan) 1,240 mg in NSS 500 mL infusion 1,240 mg (rounded from 1,236 mg = 600 mg/m2 2.06 m2 Treatment Plan BSA from Recorded weight), IV Piggyback, ONCE, On Sun09/18/24 at 1545, For 1 dose, Cyclophosphamide doses over 1g should be in 500 mL.May extend infusion to 1 hour if not tolerated.Indications:Tripl e negative breast cancer (HCC),Encounter for antineoplastic chemotherapy,Encounter for prevention of neutropenia due to chemotherapy Start Infusion 09/18/2024 4:05 PM EDT 1,240 mg 1032.4 mL/hr DOXOrubicin (Adriamycin) inj 124 mg 124 mg (rounded from 123.6 mg = 60 mg/m2 2.06 m2 Treatment Plan BSA from Recorded weight), IV Push, ONCE, On Sun09/18/24 at 1530, For 1 dose, Dispensed and administered in a syringe.Indications:Triple negative breast cancer (HCC),Encounter for antineoplastic chemotherapy,Encounter for prevention of neutropenia due to chemotherapy Given 09/18/2024 3:55 PM EDT 62 mg Given 09/18/2024 3:53 PM EDT 62 mg Fosaprepitant Dimeglumine (Emend) 150 mg, ondansetron (Zofran) 16 mg, dexamethasone sodium phosphate 12 mg in NSS 250 mL Infusion 150 mg, IV Piggyback, ONCE, 1 dose, On Sun09/18/24 at 1515, Administer over 30 Minutes, Infuse over 30 minutes. Give 30 minutes prior to chemotherapy.Indicatio ns:Triple negative breast cancer (HCC),Encounter for antineoplastic chemotherapy,Encounter for prevention of neutropenia due to chemotherapy Start Infusion 09/18/2024 2:14 PM EDT 150 mg 538.4 mL/hr Leuprolide Acetate (Lupron) inj 3.75 mg 3.75 mg, Intramuscular, ONCE, On Sun09/18/24 at 1530, For 1 doseIndications:Triple negative breast cancer (HCC),Encounter for fertility preservation procedure,Suppression of ovarian secretion Given 09/18/2024 2:30 PM EDT 3.75 mg Dorsogluteal Right NSS infusion FOR HYDRATION Intravenous, at 500 mL/hr Administer over 2 Hours, ONCE, 1 dose, On Sun09/18/24 at 1445Indications:Triple negative breast cancer (HCC),Encounter for antineoplastic chemotherapy,Encounter for prevention of neutropenia due to chemotherapy Start Infusion 09/18/2024 2:17 PM EDT 1,000 mL 500 mL/hr NSS infusion 500 mL, Intravenous, at 50 mL/hr, ONCE PRN, 1 dose, Starting on Bibi 09/18/24 at 1515, Until Bibi 09/18/24 at 1639, Other, maintain lineIndications:Triple negative breast cancer (HCC),Encounter for antineoplastic chemotherapy,Encounter for prevention of neutropenia due to chemotherapy Start Infusion 09/18/2024 2:13 PM EDT 500 mL 50 mL/hr Pembrolizumab (Keytruda) 200 mg in NSS 100 mL infusion 200 mg, IV Piggyback, ONCE, 1 dose, On Bibi 09/18/24 at 1545, Administer over 30 Minutes, Infuse through 0.2 micron filter.Indications:Tri ple negative breast cancer (HCC),Encounter for antineoplastic chemotherapy,Encounter for prevention of neutropenia due to chemotherapy Start Infusion 09/18/2024 3:02 PM EDT 200 mg 226 mL/hr sodium chloride 0.9 % flush/inj 20 mL 20 mL, IV Push, PRN IV Flush and Lock, Starting on Bibi 09/18/24 at 1411, Until Bibi 09/18/24 at 2107, Do not flush if lock, PICC, or central line not in place; IV infusing or unable to flush. For midlines and central lines. For IV Flush and Lock, IVAD is flushed with a total of 20 mL Normal Saline, 10 mL of Normal Saline Flush with 10 mL of Normal Saline acting as IV LOCK.Indications:Tripl e negative breast cancer (HCC),Encounter for antineoplastic chemotherapy,Encounter for prevention of neutropenia due to chemotherapy Given 09/18/2024 4:44 PM EDT 20 mL documented in this encounter Care Teams Stereo Equipment Repairer Relationship Specialty Start Date End Date Malinda Owens CRNP [address] [place] [address] PCP - General Nurse Practitioner 09/20/23 documented as of this encounter
--- OUTSIDE RECORDS SUMMARY | 2024-11-01 03:35 | External Medical Summary ---
Author Name Unknown Address Unknown Organization K09[facility] [place] [address] Laboratory Report Ordering Provider Test Date Status JASMINE JANSEN 10/31/2024 12:13:07 Final Observation Date Value Abnormality Reference (Units ) Status Magnesium 10/31/2024 12:13:07 1.6 1.5-2.6 (m g/dL) Final Performing Location [facility] [place] [address]
--- OUTSIDE RECORDS SUMMARY | 2024-11-01 03:35 | External Medical Summary ---
Author Name Unknown Address Unknown Organization K[facility] [place] [place] [address] Laboratory Report Ordering Provider Test Date Status JASMINE JANSEN 10/31/2024 12:13:07 Final Observation Date Value Abnormality Reference (Units ) Status WBC, Total 10/31/2024 12:13:07 0.74 Below lower panic limits 4.00-10.80 (K/uL) Final RBC 10/31/2024 12:13:07 2.64 3.85-5.15 (M/uL) Final Hemoglobin 10/31/2024 12:13:07 9.0 Below low normal 12.0-15.3 (g/dL) Final HCT 10/31/2024 12:13:07 26.0 Below low normal 36.0-45.2 (%) Final MCV 10/31/2024 12:13:07 98.5 81.5-97.5 (fL) Final MCH 10/31/2024 12:13:07 34.1 27.0-34.0 (pg) Final MCHC 10/31/2024 12:13:07 34.6 32.0-36.0 (g/dL) Final RDW 10/31/2024 12:13:07 12.3 11.5-15.5 (%) Final Platelets 10/31/2024 12:13:07 30 Below low normal 140-400 (K/uL) Final MPV 10/31/2024 12:13:07 11.0 6.6-11.1 (fL) Final Performing Location [facility] [place] [address]
--- OUTSIDE RECORDS SUMMARY | 2024-11-01 03:35 | External Medical Summary | Summary of Care ---
Author Name Unknown Organization [facility] Address [address] [place] [address] Phone [phone] Care Team Providers Care Log Skidder Name Role Phone Owens Ridgemargaret AD Primary Care Provider [phone] Reason for Visit * Reason Comments Chemotherapy [...] HCL Em Ng MD Hematology/Oncology Treatment, [address] [address] Phone: tel: fax: Referral ID Status Reason Start Date Expiration Date V isits Requested Visits Authorized [id number] Authorized 04/30/2024 06/17/[phone] Encounter Details Date Type Department Care Team (Latest Contact Info) Description 09/18/2024 12:30 PM EDT Hem/Onc Treatment Hematology/Oncolog y Treatment, [address] [address] [place], Chair [address] Hem On[address] [phone] Triple negative breast cancer (HCC)*; Encounter for [...] complete. Enrolled in Current Health. Plans to bulk picker meter from pharmacy today. Instructions provided [...] and class I obesity. Per review of SECURITY DIRECTOR documentation of 09/25/23, blood glucose values [...] Recommend nutrition consult with RDN (Registered Dietitian Ramp Jockey). Lifestyle changes are also indicated including optimizing [...] folate levels and referral to a car clerk pullman. If hemoglobin levels are below 8 g/dl, we recommend Maternal Medicine ultrasound for growth every 4 weeks after 24 weeks. Consider a blood transfusion if hemoglobin levels fall below 6 g/dL. ([employer] [facility] Bulletin Number 95, December,). Consider [...] money to get more. 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 [place] [address] 11/13/2024 8:30 AM EDT Laboratory Laboratory [facility] [place] [address] [facility] [place] [phone] Khris Amato [facility] [address] [place] [address] [address] 11/13/2024 9:00 AM EDT Office Visit Hematology/Oncology [facility] [place] [address] [facility] [place] [phone] Kanu Maravilla MD 200 [facility] [place] [address] 11/13/2024 9:30 AM EDT Hem/Onc Treatment Hematology/Oncology Treatment, [place] [address] [place] [phone] [place], Chair 7 Hem Onc Scenery [address] [address] 04/27/2025 2:40 PM EST Telemedicine Endocrinology [address] [place], [place] [address] Orlin Miranda MD 35 [...] this encounter Medical Devices Implanted Type Area Plug Sorter Device Identifier Shelf Expiration Date Model / Serial / Lot Stent Kev 4fr 11cm - [id number] Implanted:Qty : 1 on 02/08/2024 by Jeffrey Kerr MD at OR [facility] [email or web address] [id number] 08/16/2028 [id number] / / [id number] Description:https://www.doct ordoctor.biz/search/Detail.aspx?result=0 JLS 09/04/2024 Non metallic Port Implant W8f Poly Cath - [id number] Implanted:Qty : 1 on 05/02/2024 by Iam Curry MD at OR [facility] Right: Chest CR BARD : PERIPHERAL VASCULAR [id number] 05/17/2025 [id number] / / [id number] documented as of this encounter Visit Diagnoses [...] mL documented in this encounter Care Teams Log Skidder Relationship Specialty Start Date End Date Malinda Owens CRNP [address] [place] [address] PCP - General Nurse Practitioner 09/20/23 documented as of this encounter
--- OUTSIDE RECORDS SUMMARY | 2024-11-01 03:35 | External Medical Summary ---
Author Name Unknown Address Unknown Organization K09:[facility] [address] [place] [address] Laboratory Report Ordering Provider Test Date Status JASMINE JANSEN 10/31/2024 12:13:07 Final Observation Date Value Abnormality Reference (Units ) Status Color of Urine by Auto 10/31/2024 12:13:07 Yellow Light Yellow, Yellow, Dark Yellow Final Clarity, Urine 10/31/2024 12:13:07 Slightly Cloudy Abnormal Clear Final Glucose [Mass/volume] in Urine by Automated test strip 10/31/2024 12:13:07 Negative Negative (mg/dL) Final Bilirubin.total [Presence] in Urine by Automated test strip 10/31/2024 12:13:07 Negative Negative Final Ketones [Mass/volume] in Urine by Automated test strip 10/31/2024 12:13:07 Negative Negative (mg/dL) Final Specific gravity, Urine 10/31/2024 12:13:07 1.025 1.003-1.030 Final Hemoglobin [Presence] in Urine by Automated test strip 10/31/2024 12:13:07 Negative Negative Final pH, Urine 10/31/2024 12:13:07 7.0 5.0-7.5 (Units) Final Protein [Mass/volume] in Urine by Automated test strip 10/31/2024 12:13:07 Negative Negative (mg/dL) Final Urobilinogen [Mass/volume] in Urine by Automated test strip 10/31/2024 12:13:07 0.2 0.2, 1.0 (mg/dL) Final Nitrite [Presence] in Urine by Automated test strip 10/31/2024 12:13:07 Negative Negative Final Leukocyte esterase [Presence] in Urine by Automated test strip 10/31/2024 12:13:07 Negative Negative Final RBC, Urine 10/31/2024 12:13:07 0-2 0-2 (/HPF) Final WBC, Urine 10/31/2024 12:13:07 0-2 0-2 (/HPF) Final Bacteria [#/area] in Urine sediment by Microscopy high power field 10/31/2024 12:13:07 26-50 Abnormal 0-25 (/HPF) Final Transitional cells [#/area] in Urine sediment by Microscopy high power field 10/31/2024 12:13:07 1-4 Abnormal None (/HPF) Final Performing Location [facility] [address] [place] [address]
--- OUTSIDE RECORDS SUMMARY | 2024-11-01 03:36 | External Medical Summary | Summary of Care ---
Author Name Unknown Organization [facility] Address [address] [place] [address] Phone [phone] Care Team Providers Care Brazer Resistance Name Role Phone Owens Ridgemargaret AD Primary Care Provider [phone] Reason for Visit * Reason Comments Chemotherapy [...] HCL Em Ng MD Hematology/Oncology Treatment, [address] [address] Phone: tel: fax: Referral ID Status Reason Start Date Expiration Date V isits Requested Visits Authorized [id number] Authorized 04/30/2024 06/17/2099 999 [id number] Encounter Details Date Type Department Care Team (Latest Contact Info) Description 09/18/2024 12:30 PM EDT Hem/Onc Treatment Hematology/Oncolog y Treatment, [address] [address] [place], Chair 6 Hem On[address] [phone] Triple negative breast cancer (HCC)*; Encounter for antineoplastic chemotherapy; Encounter for prevention of neutropenia due to chemotherapy; Encounter for fertility preservation procedure; Suppression of ovarian secretion Allergies No known active allergiesdocumented as of this encounter (statuses as of 10/25/2024) Medications 19 29-1 MG Oral Tablet Chewable [...] as of this encounter (statuses as of 10/25/2024) Active Problems Problem Noted Date Diagnosed Date [...] as of this encounter (statuses as of 10/25/2024) Resolved Problems Problem Noted Date Diagnosed Date [...] in Current Health. Plans to fruit picker meter from pharmacy today. Instructions provided [...] and class I obesity. Per review of HYDROGEN POWER PLANT MANAGER documentation of 09/25/23, blood glucose values [...] nutrition consult with RDN (Registered Dietitian Automotive Project Engineer). Lifestyle changes are also indicated including [...] and folate levels and referral to a dtp operator. If hemoglobin levels are below 8 g/dl, we recommend Maternal Medicine ultrasound for growth every 4 weeks after 24 weeks. Consider a blood transfusion if hemoglobin levels fall below 6 g/dL. ([employer] Obstetricians and Staining Machine Operator Practice Bulletin Number 95, December,). [...] as of this encounter (statuses as of 10/25/2024) Immunizations Name Administration Dates Next Due DTP [...] money to get more. 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 [address] [facility] [place] [address] Malinda Owens CRNP 132 [facility] [place] [address] 11/13/2024 8:30 AM EDT Laboratory Laboratory [facility] [place] [address] [facility] [place] [phone] Khris Amato [facility] [address] [place] [address] 11/13/2024 9:00 AM EDT Office Visit Hematology/Oncology [facility] [place] 200 [facility] [place] [phone] Kanu Maravilla MD 200 [facility] [place] [address] 11/13/2024 9:30 AM EDT Hem/Onc Treatment Hematology/Oncology Treatment, [place] [address] [place] [address] [place], Chair 7 Hem Onc Scenery [address] [place] [place] [address] 04/27/2025 2:40 PM EST Telemedicine Endocrinology Kyrie [...] this encounter Medical Devices Implanted Type Area Cylinder Press Operator Device Identifier Shelf Expiration Date Model / Serial / Lot Stent Kev 4fr 11cm - [id number] Implanted:Qty : 1 on 02/08/2024 by Jeffrey Kerr MD at OR [facility] [employer] [id number] 08/16/2028 [id number] / / [id number] Description:https://www.doct ordoctor.biz/search/Detail.aspx?result=0 JLS 09/04/2024 Non metallic Port Implant W8f Poly Cath - [id number] Implanted:Qty : 1 on 05/02/2024 by Iam Curry MD at OR [facility] Right: Chest CR BARD : PERIPHERAL VASCULAR [id number] 05/17/2025 [id number] / / [id number] documented as of this encounter Visit Diagnoses [...] mL documented in this encounter Care Teams Brazer Resistance Relationship Specialty Start Date End Date Malinda Owens CRNP 132 [place] [address] PCP - General Nurse Practitioner 09/20/23 documented as of this encounter
--- OUTSIDE RECORDS SUMMARY | 2024-11-01 03:36 | External Medical Summary | Summary of Care ---
Author Name Unknown Organization [facility] Address [address] [place] [address] Phone [phone] Care Team Providers Care Customer Care Coordinator Name Role Phone Owens Ridgemargaret AD Primary Care Provider [phone] Reason for Visit * Reason Comments Chemotherapy [...] PALONOSETRON HCL Em Ng MD Hematology/Oncology Treatment, [address] [address] Phone: tel: fax: Referral ID Status Reason Start Date Expiration Date V isits Requested Visits Authorized [id number] Authorized 04/30/2024 06/17/2099 999 [id number] Encounter Details Date Type Department Care Team (Latest Contact Info) Description 09/18/2024 12:30 PM EDT Hem/Onc Treatment Hematology/Oncolog y Treatment, [address] [address] [place], Chair [address] Hem [address] [phone] Triple negative breast cancer (HCC)*; Encounter for [...] complete. Enrolled in Current Health. Plans to coal picker meter from pharmacy today. Instructions provided [...] and class I obesity. Per review of TAR POT MAN documentation of 09/25/23, blood glucose values [...] Recommend nutrition consult with RDN (Registered Dietitian Strategy Execution Consultant). Lifestyle changes are also indicated including optimizing [...] and folate levels and referral to a property administrator. If hemoglobin levels are below 8 g/dl, we recommend Maternal Medicine ultrasound for growth every 4 weeks after 24 weeks. Consider a blood transfusion if hemoglobin levels fall below 6 g/dL. ([employer] Obstetricians and Spark Tester Practice Bulletin Number 95, December,). Consider [...] money to get more. 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 [...] Description 11/06/2024 10:40 AM EDT Office Visit [facility] 132 [facility] [place] [address] Malinda Owens CRNP 132 [facility] [place] [address] 11/13/2024 8:30 AM EDT Laboratory Laboratory [facility] [place] 200 [facility] [place] [phone] Khris Amato [facility] [address] [place] [address] 11/13/2024 9:00 AM EDT Office Visit Hematology/Oncology [facility] [place] 200 [facility] [place] [phone] Kanu Maravilla MD 200 [facility] [place] [address] 11/13/2024 9:30 AM EDT Hem/Onc Treatment Hematology/Oncology Treatment, [place] [address] [place] [address] [place], Chair 7 Hem Onc Scenery [address] [place] [address] 04/27/2025 2:40 PM EST Telemedicine Endocrinology Kyrie [...] this encounter Medical Devices Implanted Type Area Clinical Writer Device Identifier Shelf Expiration Date Model / Serial / Lot Stent Kev 4fr 11cm - [id number] Implanted:Qty : 1 on 02/08/2024 by Jeffrey Kerr MD at OR [facility] [employer] [id number] 08/16/2028 [id number] / / [id number] Description:https://www.doct ordoctor.biz/search/Detail.aspx?result=0 JLS 09/04/2024 Non metallic Port Implant W8f Poly Cath - [id number] Implanted:Qty : 1 on 05/02/2024 by Iam Curry MD at OR [facility] Right: Chest CR BARD : PERIPHERAL VASCULAR [id number] 05/17/2025 [id number] / / [id number] documented as of this encounter Visit Diagnoses [...] mL documented in this encounter Care Teams Customer Care Coordinator Relationship Specialty Start Date End Date Malinda Owens CRNP 132 [place] [address] PCP - General Nurse Practitioner 09/20/23 documented as of this encounter
--- OUTSIDE RECORDS SUMMARY | 2024-11-01 03:36 | External Medical Summary | Summary of Care ---
Author Name Unknown Organization [facility] Address [address] [place] [address] Phone [phone] Care Team Providers Care Hand Spring Repairer Name Role Phone Owens iRdgemargaret AD Primary Care Provider [phone] Reason for Visit * Reason Comments Chemotherapy [...] HCL Em Ng MD Hematology/Oncology Treatment, [address] [address] Phone: tel: fax: Referral ID Status Reason Start Date Expiration Date V isits Requested Visits Authorized [id number] Authorized 04/30/2024 06/17/2099 999 999 Encounter Details Date Type Department Care Team (Latest Contact Info) Description 09/18/2024 12:30 PM EDT Hem/Onc Treatment Hematology/Oncolog y Treatment, [address] [address] [place], Chair [address] [phone] Triple negative breast cancer (HCC)*; Encounter for [...] and class I obesity. Per review of TOP AND TRIM WORKER documentation of 09/25/23, blood glucose values [...] nutrition consult with RDN (Registered Dietitian Health Care Legal Assistant). Lifestyle changes are also indicated including [...] and folate levels and referral to a anchorer. If hemoglobin levels are below 8 g/dl, we recommend Maternal Medicine ultrasound for growth every 4 weeks after 24 weeks. Consider a blood transfusion if hemoglobin levels fall below 6 g/dL. ([employer] Obstetricians and Automatic Coin Machine Mechanic Practice Bulletin Number 95, December,). Consider [...] money to get more. 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 [place] [address] Malinda Owens CRNP 132 [facility] [place] [address] 11/13/2024 8:30 AM EDT Laboratory Laboratory [facility] [place] [facility] [place] [phone] Khris Amato [facility] [address] [place] [address] 11/13/2024 9:00 AM EDT Office Visit Hematology/Oncology [facility] [place] [facility] [place] [phone] Kanu Maravilla MD 200 [facility] [place] [address] 11/13/2024 9:30 AM EDT Hem/Onc Treatment Hematology/Oncology Treatment, [place] [address] [place] [address] [place], Chair 7 Hem Onc Scenery [address] [place] [address] 04/27/2025 2:40 PM EST Telemedicine Endocrinology Kyrie [...] this encounter Medical Devices Implanted Type Area Collar Stay Fuser Tender Device Identifier Shelf Expiration Date Model / Serial / Lot Stent Kev 4fr 11cm - [id number] Implanted:Qty : 1 on 02/08/2024 by Jeffrey Kerr MD at OR [facility] [employer] [id number] 08/16/2028 6546 / / [id number] Description:https://www.doct ordoctor.biz/search/Detail.aspx?result=0 JLS 09/04/2024 Non metallic Port Implant W8f Poly Cath - [id number] Implanted:Qty : 1 on 05/02/2024 by Iam Curry MD at OR [facility] Right: Chest CR BARD : PERIPHERAL VASCULAR [id number] 05/17/2025 [id number] / / [id number] documented as of this encounter Visit Diagnoses [...] mL documented in this encounter Care Teams Hand Spring Repairer Relationship Specialty Start Date End Date Malinda Owens CRNP [address] [place] [address] PCP - General Nurse Practitioner 09/20/23 documented as of this encounter
--- OUTSIDE RECORDS SUMMARY | 2024-11-01 03:36 | External Medical Summary | Summary of Care ---
Author Name Unknown Organization [facility] Address [address] [place] [address] Phone [phone] Care Team Providers Care Billing Checker Name Role Phone Owens Ridgemargaret AD Primary Care Provider [phone] Reason for Visit * Reason Comments Chemotherapy [...] PALONOSETRON HCL Em Ng MD Hematology/Oncology Treatment, [address] [address] Phone: tel: fax: Referral ID Status Reason Start Date Expiration Date V isits Requested Visits Authorized [id number] Authorized 04/30/2024 06/17/2099 999 999 Encounter Details Date Type Department Care Team (Latest Contact Info) Description 09/18/2024 12:30 PM EDT Hem/Onc Treatment Hematology/Oncolog y Treatment, [address] [address] [place], Chair [address] Hem On[address] [phone] Triple negative breast cancer (HCC)*; Encounter for [...] and class I obesity. Per review of CRIBBER documentation of 09/25/23, blood glucose values have [...] Recommend nutrition consult with RDN (Registered Dietitian Bike Designer). Lifestyle changes are also indicated including [...] and folate levels and referral to a cooler conveyor loader. If hemoglobin levels are below 8 g/dl, we recommend Maternal Medicine ultrasound for growth every 4 weeks after 24 weeks. Consider a blood transfusion if hemoglobin levels fall below 6 g/dL. ([employer] Obstetricians and Clinic Physician Practice Bulletin Number 95, December,). Consider Venofer [...] money to get more. 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 [...] Description 11/06/2024 10:40 AM EDT Office Visit [facility] 132 [facility] [place] [address] Malinda Owens CRNP 132 [facility] [place] [address] 11/13/2024 8:30 AM EDT Laboratory Laboratory [facility] [place] 200 [facility] [place] [phone] Khris Amato [facility] [address] [place] [address] 11/13/2024 9:00 AM EDT Office Visit Hematology/Oncology [facility] [place] 200 [facility] [place] [phone] Kanu Maravilla MD 200 [facility] [place] [address] 11/13/2024 9:30 AM EDT Hem/Onc Treatment Hematology/Oncology Treatment, [place] [address] [place] [address] [place], Chair 7 Hem Onc Scenery [address] [facility] [place] [address] 04/27/2025 2:40 PM EST Telemedicine Endocrinology Kyrie [...] this encounter Medical Devices Implanted Type Area Work Over Rig Operator Device Identifier Shelf Expiration Date Model / Serial / Lot Stent Kev 4fr 11cm - [id number] Implanted:Qty : 1 on 02/08/2024 by Jeffrey Kerr MD at OR [facility] [employer] [id number] 08/16/2028 [id number] / / [id number] Description:https://www.doct ordoctor.biz/search/Detail.aspx?result=0 JLS 09/04/2024 Non metallic Port Implant W8f Poly Cath - [id number] Implanted:Qty : 1 on 05/02/2024 by Iam Curry MD at OR [facility] Right: Chest CR BARD : PERIPHERAL VASCULAR [id number] 05/17/2025 [id number] / / [id number] documented as of this encounter Visit Diagnoses [...] mL documented in this encounter Care Teams Billing Checker Relationship Specialty Start Date End Date Malinda Owens CRNP 132 [place] [address] PCP - General Nurse Practitioner 09/20/23 documented as of this encounter
--- OUTSIDE RECORDS SUMMARY | 2024-11-01 03:36 | External Medical Summary | Summary of Care ---
Author Name Unknown Organization [facility] Address [address] [place] [address] Phone [phone] Care Team Providers Care Image Scientist Name Role Phone Owens Ridgemargaret AD Primary Care Provider [phone] Reason for Visit * Reason Comments Chemotherapy [...] PALONOSETRON HCL Em Ng MD Hematology/Oncology Treatment, [address] [address] Phone: tel: fax: Referral ID Status Reason Start Date Expiration Date V isits Requested Visits Authorized [id number] Authorized 04/30/2024 06/17/2099 999 999 Encounter Details Date Type Department Care Team (Latest Contact Info) Description 09/18/2024 12:30 PM EDT Hem/Onc Treatment Hematology/Oncolog y Treatment, [address] [address] [place], Chair [address] Hem On[address] [phone] Triple negative breast cancer (HCC)*; Encounter for [...] class I obesity. Per review of MANAGER MINING documentation of 09/25/23, blood glucose values have [...] Recommend nutrition consult with RDN (Registered Dietitian Liquefied Petroleum Gasfitter). Lifestyle changes are also indicated including optimizing [...] and folate levels and referral to a campground cleaning attendant. If hemoglobin levels are below 8 g/dl, we recommend Maternal Medicine ultrasound for growth every 4 weeks after 24 weeks. Consider a blood transfusion if hemoglobin levels fall below 6 g/dL. ([employer] Obstetricians and Pharmacy Specialist Practice Bulletin Number 95, December,). Consider [...] to get more. 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 [...] Description 11/06/2024 10:40 AM EDT Office Visit [facility] 132 [facility] [place] [address] Mlainda Owens CRNP 132 [facility] [place] [address] 11/13/2024 8:30 AM EDT Laboratory Laboratory [facility] [place] 200 [facility] [place] [phone] Khris Amaot [facility] [address] [place] [address] 11/13/2024 9:00 AM EDT Office Visit Hematology/Oncology [facility] [place] 200 [facility] [place] [phone] Kanu Maravilla MD 200 [facility] [place] [address] 11/13/2024 9:30 AM EDT Hem/Onc Treatment Hematology/Oncology Treatment, [place] [address] [place] [address] [place], Chair 7 Hem Onc Scenery [address] [facility] [place] [address] 04/27/2025 2:40 PM EST Telemedicine Endocrinology Kyrie [...] this encounter Medical Devices Implanted Type Area Search And Rescue Officer Device Identifier Shelf Expiration Date Model / Serial / Lot Stent Kev 4fr 11cm - [id number] Implanted:Qty : 1 on 02/08/2024 by Jeffrey Kerr MD at OR [facility] [employer] [id number] 08/16/2028 [id number] / / [id number] Description:https://www.doct ordoctor.biz/search/Detail.aspx?result=0 JLS 09/04/2024 Non metallic Port Implant W8f Poly Cath - [id number] Implanted:Qty : 1 on 05/02/2024 by Iam Curry MD at OR [facility] Right: Chest CR BARD : PERIPHERAL VASCULAR [id number] 05/17/2025 [id number] / / [id number] documented as of this encounter Visit Diagnoses [...] mL documented in this encounter Care Teams Image Scientist Relationship Specialty Start Date End Date Malinda Owens CRNP 132 [place] [address] PCP - General Nurse Practitioner 09/20/23 documented as of this encounter
--- OUTSIDE RECORDS SUMMARY | 2024-11-01 03:36 | External Medical Summary | Summary of Care ---
Author Name Unknown Organization [facility] Address [address] [place] [address] Phone [phone] Care Team Providers Care Server Developer Name Role Phone Owens Ridgemargaret AD Primary Care Provider [phone] Reason for Visit * Reason Comments Chemotherapy [...] ND PACLITAXEL INJECTION ND INJ CYCLOPHOSPHAMD AUROMEDIC ND PALONOSETRON HCL Em Ng MD Hematology/Oncology Treatment, [address] [address] Phone: tel: fax: Referral ID Status Reason Start Date Expiration Date V isits Requested Visits Authorized [id number] Authorized 04/30/2024 06/17/2099 999 999 Encounter Details Date Type Department Care Team (Latest Contact Info) Description 09/18/2024 12:30 PM EDT Hem/Onc Treatment Hematology/Oncolog y Treatment, [address] [address] [place], Chair [address] [phone] Triple negative breast cancer (HCC)*; Encounter for [...] in Current Health. Plans to cotton picker operator meter from pharmacy today. Instructions [...] and class I obesity. Per review of METAL FENCE ERECTOR documentation of 09/25/23, blood glucose values have [...] Recommend nutrition consult with RDN (Registered Dietitian Pearl Glue Operator). Lifestyle changes are also indicated including [...] and folate levels and referral to a head of digital advertising & integration. If hemoglobin levels are below 8 g/dl, we recommend Maternal Medicine ultrasound for growth every 4 weeks after 24 weeks. Consider a blood transfusion if hemoglobin levels fall below 6 g/dL. ([employer] Obstetricians and Director Of Midwifery/Staff Midwife Practice Bulletin Number 95, December,). 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 [...] Description 11/06/2024 10:40 AM EDT Office Visit [facility] 132 [facility] [place] [address] Malinda Owens CRNP 132 [facility] [place] [address] 11/13/2024 8:30 AM EDT Laboratory Laboratory [facility] [place] 200 [facility] [place] [phone] Khris Amato [facility] [address] [place] [address] 11/13/2024 9:00 AM EDT Office Visit Hematology/Oncology [facility] [place] 200 [facility] [place] [phone] Kanu Maravilla MD 200 [facility] [place] [address] 11/13/2024 9:30 AM EDT Hem/Onc Treatment Hematology/Oncology Treatment, [place] [address] [place] [address] [place], Chair 7 Hem Onc Scenery [address] [facility] [place] [address] 04/27/2025 2:40 PM EST Telemedicine Endocrinology Kyrie [...] this encounter Medical Devices Implanted Type Area Director State Pharmacy Device Identifier Shelf Expiration Date Model / Serial / Lot Stent Kev 4fr 11cm - [id number] Implanted:Qty : 1 on 02/08/2024 by [facility] Kerr MD [facility] [employer] [id number] 08/16/2028 [id number] / / [id number] Description:https://www.doct ordoctor.biz/search/Detail.aspx?result=0 JLS 09/04/2024 Non metallic Port Implant W8f Poly Cath - [id number] Implanted:Qty : 1 on 05/02/2024 by Iam [facility] Right: Chest CR BARD : PERIPHERAL VASCULAR [id number] 05/17/2025 [id number] / / [id number] documented as of this encounter Visit Diagnoses [...] documented in this encounter Care Teams Server Developer Relationship Specialty Start Date End Date Malinda Owens CRNP [address] [place] [address] PCP - General Nurse Practitioner 09/20/23 documented as of this encounter
--- OUTSIDE RECORDS SUMMARY | 2024-11-01 03:37 | External Medical Summary | Summary of Care ---
Author Name Unknown Organization [facility] Address [address] [place] [address] Phone [phone] Care Team Providers Care Clinical Trial Associate Name Role Phone Malinda Owens Primary Care Provider [phone] Reason for Visit * Reason Comments Medication Administration IV hydration, Fulphila * Episode Based Medications (Routine) - Authorized Specialty Diagnoses / Procedures Referred By Contac t Referred To Contact Diagnoses Triple negative breast cancer (HCC) Encounter for antineoplastic chemotherapy Encounter for prevention of neutropenia due to chemotherapy Procedures RI DOXORUBIC HCL 10 MG VL CHEMO RI CARBOPLATIN INJECTION RI FOSAPREPITANT INJECTION RI INJ PEMBROLIZUMAB RI INJECTION, FULPHILA RI PACLITAXEL INJECTION RI INJ CYCLOPHOSPHAMD AUROMEDIC RI PALONOSETRON HCL Em Ng MD Hematology/Oncology Treatment, [address] [address] Phone: tel: fax: Referral ID Status Reason Start Date Expiration Date V isits Requested Visits Authorized [id number] Authorized 04/30/2024 06/17/2099 [id number] Encounter Details Date Type Department Care Team (Latest Contact Info) Description 09/19/2024 2:45 PM EDT Hem/Onc Treatment Hematology/Oncolog y Treatment, [address] [address] [place], Chair 11 Hem On[address] [address] Triple negative breast cancer (HCC)*; Encounter for antineoplastic chemotherapy; Encounter for prevention of neutropenia due to chemotherapy Allergies No known active allergiesdocumented as of this encounter (statuses as of 10/24/2024) Medications 19 29-1 MG Oral Tablet Chewable [...] before fulphila injection 20 Tablet 024 Active Ondansetron HCl 8 MG Oral Tablet (Zofran)Indicatio ns:Malignant neoplasm of upper-outer quadrant of left breast in female, estrogen receptor negative (HCC) Take 1 Tablet by mouth every 8 hours as needed for Nausea. 30 Tablet 3 025 Active Phenazopyridine HCl 200 MG Oral Tablet [...] the morning. 30 Tablet 5 025 Active OLANZapine 5 MG Oral TabletIndications :Malignant neoplasm [...] as of this encounter (statuses as of 10/24/2024) Active Problems Problem Noted Date Diagnosed Date [...] as of this encounter (statuses as of 10/24/2024) Resolved Problems Problem Noted Date Diagnosed Date [...] and class I obesity. Per review of TOLL MECHANIC documentation of 09/25/23, blood glucose values [...] Recommend nutrition consult with RDN (Registered Dietitian Survey Operations Director). Lifestyle changes are also indicated including [...] and folate levels and referral to a career development engineer. If hemoglobin levels are below 8 g/dl, we recommend Maternal Medicine ultrasound for growth every 4 weeks after 24 weeks. Consider a blood transfusion if hemoglobin levels fall below 6 g/dL. ([employer] and Director Of Land Acquisition Practice Bulletin Number 95, December,). Consider Venofer transfusions if patient labs supportive of iron deficiency anemia with dosing of 300 mg IV weekly x 3 weeks Abnormal glucose tolerance i n mother complicating 04/19/2023 08/31/2023 Overview (04/19/2023): Failed early glucola. 3hr GTT ordered Encounter for supervision of other normal , unspecified trimester 04/03/2023 025 documented as of this encounter (statuses as of 10/24/2024) Immunizations Name Administration Dates Next Due DTP [...] money to get more. 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 Port needle flushed with 10 ml NSS, blood return noted, and port locked with additional 10 ml NSS. Lopez needle removed, intact, gauze dressing applied. Fulphila administered per order; pt tolerated well. Goals: Pt will remain free from injury. Possible barriers to meeting goals: ambulation with IV pole Stability of the patient: Moderately stable - low risk of patient condition declining or worsening Summary regarding today's goals: Met: . Pt remained free from injury during treatment today. Discharged in stable condition. * Marilyn Burnett RN - 09/19/2024 3:50 PM EDT Chair 12, patient here for IV hydration, Fulphila injection. Patient states that she had a headachethis morning, took ibuprofen which "helped some" still "feels it in my head" VAD accessed without difficulty, + blood return, flushed with 10 ml NSS and dressing applied. IV fluids started. Safety and Risk for Injury Patient will [...] Care Team (Late st Contact Info) Description 10/24/2024 11:30 AM EDT [facility] [phone] [place], Chair 2 Hem Onc Scene [address] [facility] [place] [address] 11/06/2024 10:40 AM EDT Office Visit [facility] [address] [place] [address] Malinda Owens CRNP [address] [place] [place] [address] 11/13/2024 8:30 AM EDT Laboratory Laboratory [address] [place] [phone] [place], Lab [address] [place] [address] 11/13/2024 9:00 AM EDT Office Visit Hematology/Oncology [place] [address] [address] [place] [address] Kanu Maravilla MD [address] [facility] [address] 11/13/2024 9:30 AM EDT Hem[facility]Onc [facility] [address] [facility] [phone] [place], Chair 7 Hem Onc [place] [address] [address] [place] [address] 04/27/2025 2:40 PM EST Telemedicine Endocrinology [address] [place], [place] [address] Orlin Miranda MD [address] [place] [address] Health Maintenance Due Date Last Done [...] this encounter Medical Devices Implanted Type Area Neonatal Intensive Care Unit Nurse Device Identifier Shelf Expiration Date Model / Serial / Lot Stent Kev 4fr 11cm - [id number] Implanted:Qty : 1 on 02/08/2024 by [facility] [id number] 08/16/2028 [id number] / / [id number] Description:https://www.doct ordoctor.biz/search/Detail.aspx?result=0 JLS 09/04/2024 Non metallic Port Implant W8f Poly Cath - [id number] Implanted:Qty : 1 on 05/02/2024 by Iam Curry MD at OR [facility] Right: Chest CR BARD : PERIPHERAL VASCULAR [id number] 05/17/2025 [id number] / / [id number] documented as of this encounter Visit Diagnoses Diagnosis Triple negative breast cancer (HCC)- Primary Encounter for antineoplastic chemotherapy Encounter for prevention of neutropenia due to chemotherapy documented in this encounter Administered Medications Inactive Administered Medications - up to 3 most recent administrations Medication Order MAR Action Action Date Dose Rate Site Acetaminophen (Tylenol) tab 650 mg 650 mg, Oral, ONCE, On Sun09/19/24 at 1645, For 1 dose, Maximum of 4 grams (4000 mg) per day.Indications:Triple negative breast cancer (HCC),Encounter for antineoplastic chemotherapy,Encounter for prevention of neutropenia due to chemotherapy Given 09/19/2024 4:07 PM EDT 650 mg NSS infusion FOR HYDRATION Intravenous, at 500 mL/hr Administer over 2 Hours, ONCE, 1 dose, On Sun09/19/24 at 1530Indications:Triple negative breast cancer (HCC),Encounter for antineoplastic chemotherapy,Encounter for prevention of neutropenia due to chemotherapy Start Infusion 09/19/2024 2:50 PM EDT 1,000 mL 500 mL/hr Pegfilgrastim-jmdb (Fulphila) inj 6 mg 6 mg, Subcutaneous, ONCE, On Sun09/19/24 at 1530, For 1 doseIndications:Triple negative breast cancer (HCC),Encounter for antineoplastic chemotherapy,Encounter for prevention of neutropenia due to chemotherapy Given 09/19/2024 4:52 PM EDT 6 mg Arm Right Upper sodium chloride 0.9 % flush/inj 20 mL 20 mL, IV Push, PRN IV Flush and Lock, Starting on Sun09/19/24 at 1449, Until Sun09/19/24 at 2108, Do not flush if lock, PICC, or central line not in place; IV infusing or unable to flush. For midlines and central lines. For IV Flush and Lock, IVAD is flushed with a total of 20 mL Normal Saline, 10 mL of Normal Saline Flush with 10 mL of Normal Saline acting as IV LOCK.Indications:Triple negative breast cancer (HCC),Encounter for antineoplastic chemotherapy,Encounter for prevention of neutropenia due to chemotherapy Given 09/19/2024 4:52 PM EDT 20 mL documented in this encounter Care Teams Clinical Trial Associate Relationship Specialty Start Date End Date Malinda Owens CRNP [address] [place] [address] PCP - General Nurse Practitioner 09/20/23 documented as of this encounter
--- OUTSIDE RECORDS SUMMARY | 2024-11-01 03:37 | External Medical Summary | Summary of Care ---
Author Name Unknown Organization [facility] Address [address] [place] [address] Phone [phone] Care Team Providers Care Fast Food Delivery Driver Name Role Phone Malinad Owens Primary Care Provider [phone] Reason for Visit * Reason Comments Medication Administration IV hydration, Fulphila * Episode Based Medications (Routine) - Authorized Specialty Diagnoses / Procedures Referred By Contac t Referred To Contact Diagnoses Triple negative breast cancer (HCC) Encounter for antineoplastic chemotherapy Encounter for prevention of neutropenia due to chemotherapy Procedures NH DOXORUBIC HCL 10 MG VL CHEMO NH CARBOPLATIN INJECTION NH FOSAPREPITANT INJECTION NH INJ PEMBROLIZUMAB NH INJECTION, FULPHILA NH PACLITAXEL INJECTION NH INJ CYCLOPHOSPHAMD AUROMEDIC NH PALONOSETRON HCL Em Ng MD Hematology/Oncology Treatment, [address] [address] Phone: tel: fax: Referral ID Status Reason Start Date Expiration Date V isits Requested Visits Authorized [id number] Authorized 04/30/2024 06/17/2099 999 [id number] Encounter Details Date Type Department Care Team (Latest Contact Info) Description 09/19/2024 2:45 PM EDT Hem/Onc Treatment Hematology/Oncolog y Treatment, [address] [address] [place], Chair 11 Hem Onc [address] [address] Triple negative breast cancer (HCC)*; [...] and class I obesity. Per review of PUBLIC SPEAKING COACH documentation of 09/25/23, blood glucose values have [...] Recommend nutrition consult with RDN (Registered Dietitian Finishing Range Feeder). Lifestyle changes are also indicated including optimizing [...] and folate levels and referral to a fitness technician. If hemoglobin levels are below 8 g/dl, we recommend Maternal Medicine ultrasound for growth every 4 weeks after 24 weeks. Consider a blood transfusion if hemoglobin levels fall below 6 g/dL. ([employer] Bulletin Number 95, December,). Consider [...] money to get more. 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 [place] [address] 11/13/2024 8:30 AM EDT Laboratory Laboratory [address] [place] [phone] [place], Lab [address] [place] [address] 11/13/2024 9:00 AM EDT Office Visit Hematology/Oncology [place] [address] [address] [place] [address] Kanu Maravilla MD 200 [facility] [place] [address] 11/13/2024 9:30 AM EDT Hem[facility]Onc Treatment [facility] [address] [facility] [phone] [place], Chair 7 Hem Onc [place] [address] [address] [place] [address] 04/27/2025 2:40 PM EST Telemedicine Endocrinology Kyrie [...] Medical Devices Implanted Type Area Real Estate Listing Consultant Device Identifier Shelf Expiration Date Model / Serial / Lot Stent Kev 4fr 11cm - [id number] Implanted:Qty : 1 on 02/08/2024 by [facility] [id number] 08/16/2028 [id number] / / [id number] Description:https://www.doct ordoctor.biz/search/Detail.aspx?result=0 JLS 09/04/2024 Non metallic Port Implant W8f Poly Cath - [id number] Implanted:Qty : 1 on 05/02/2024 by Iam Curry MD at [facility] Right: Chest CR BARD : PERIPHERAL VASCULAR [id number] 05/17/2025 [id number] / / [id number] documented as of this encounter Visit Diagnoses [...] mL documented in this encounter Care Teams Fast Food Delivery Driver Relationship Specialty Start Date End Date Malinda Owens CRNP [address] [place] [address] PCP - General Nurse Practitioner 09/20/23 documented as of this encounter
--- OUTSIDE RECORDS SUMMARY | 2024-11-01 03:37 | External Medical Summary | Summary of Care ---
Author Name Unknown Organization [facility] Address [address] [place] [facility] [place] [address] Phone [phone] Care Team Providers Care Patient Account Analyst Name Role Phone Malinda Owens Primary Care Provider [phone] Reason for Visit * Reason Onset Date Comments Medication Refill 10/24/2024 Zofran refill Encounter Details Date Type Department Care Team (Late st Contact Info) Description 10/24/2024 Telephone Hematology/Oncology Treatment, [place] [address] [place] [phone] Kanu Maravilla MD [address] [place] [address] Medication Refill (Zofran refill) Allergies No known active allergiesdocumented as of this encounter (statuses as of 10/24/2024) Medications 29-1 MG Oral Tablet Chewable Take [...] 2024. 30 Tablet 5 05/06/20 24 Active Additional Information Patient not taking.Reported on 10/16/2024 Lidocaine-Priloca ine 2.5-2.5 % External Cream (Emla)Indications :Malignant neoplasm of upper-outer quadrant of left breast in female, estrogen receptor negative (HCC) APPLY TO SKIN OVER MEDIPORT & COVER 1HR PRIOR TO ACCESSING. 30 g 05/05/20 24 Active Loratadine 10 MG Oral Tablet (Claritin)Indicat ions:Malignant neoplasm of upper-outer quadrant of left breast in female, estrogen receptor negative (HCC) Take 1 tablet by mouth x5 days starting the day before fulphila injection 20 Tablet 05/08/20 24 Active Phenazopyridine HCl 200 MG Oral Tablet (Pyridium)Indicat ions:Dysuria Take 1 Tablet by mouth in the morning and 1 Tablet at noon and 1 Tablet before bedtime. After meals.. 6 Tablet 07/02/19 25 Active Additional Information Patient not taking.Reported on 10/16/2024 Diphenoxylate-Atr opine 2.5-0.025 MG Oral Tablet (Lomotil)Indicati ons:Chemotherapy induced diarrhea Take 1 Tablet by mouth 4 times a day as needed for Diarrhea. 30 Tablet 07/04/19 25 Active oxyBUTYnin Chloride 5 MG Oral Tablet (Ditropan)Indicat ions:Chemotherapy induced diarrhea,Bladder spasm Take 1 Tablet by mouth in the morning and 1 Tablet at noon and 1 Tablet before bedtime. 30 Tablet 07/07/19 25 Active Famotidine 20 MG Oral Tablet (Pepcid)Indicatio ns:Malignant neoplasm of upper-outer quadrant of left breast in female, estrogen receptor negative (HCC),Encounter for antineoplastic chemotherapy Take 1 Tablet by mouth in the morning. 30 Tablet 5 09/11/19 25 Active Hydrocortisone Sod Suc (PF) 100 MG Injection Solution Reconstituted (Solu-Cortef) Inject 100 mg into a large muscle once as needed for Other (Nausea, vomiting and inability to keep oral hydrocortisone down) for up to 1 dose. 2 mL 10/03/19 25 Active Gabapentin 100 MG Oral Capsule (Neurontin)Indica tions:Malignant neoplasm of upper-outer quadrant of left breast in female, estrogen receptor negative (HCC),Encounter for antineoplastic chemotherapy Take 1 Capsule by mouth at bedtime. 30 Capsule 1 10/07/19 25 Active Mag64 64 MG Oral Tablet Delayed ReleaseIndication s:Malignant neoplasm of upper-outer quadrant of left breast in female, estrogen receptor negative (HCC),Encounter for antineoplastic chemotherapy Take 1 Tablet by mouth in the morning and 1 Tablet before bedtime. 60 Tablet 10/07/19 25 Active LORazepam 1 MG Oral Tablet (Ativan)Indicatio ns:IGNACIO (generalized anxiety disorder),Panic attack Take 1 Tablet by mouth 3 times a day as needed for Anxiety. 30 Tablet 10/11/19 25 Active FLUoxetine HCl 20 MG Oral Capsule (PROzac)Indicatio ns:IGNACIO (generalized anxiety disorder),Panic attack,Adjustment disorder with anxious mood Take 1 Capsule by mouth in the morning. 30 Capsule 5 10/11/19 25 Active Hydrocortisone 10 MG Oral Tablet (Cortef)Indicatio ns:Malignant neoplasm of upper-outer quadrant of left breast in female, estrogen receptor negative (HCC),Encounter for antineoplastic chemotherapy Take 1 tablet in the morning 30 Tablet 5 10/17/19 25 Active Hydrocortisone 5 MG Oral Tablet (Cortef)Indicatio ns:Hypophysitis (HCC) Take 1 Tablet by mouth in the morning and 1 Tablet before bedtime. 60 Tablet 5 10/17/19 25 Active OLANZapine 5 MG Oral TabletIndications :Malignant neoplasm of upper-outer quadrant of left breast in female, estrogen receptor negative (HCC) Take 1-2 Tablets by mouth at bedtime as needed for Insomnia or Nausea. 180 Tablet 10/23/19 25 Active Ondansetron HCl 8 MG Oral Tablet (Zofran)Indicatio ns:Malignant neoplasm of upper-outer quadrant of left breast in female, estrogen receptor negative (HCC) Take 1 Tablet by mouth every 8 hours as needed for Nausea. 30 Tablet 3 10/25/19 25 Active Ondansetron HCl 8 MG Oral Tablet (Zofran)Indicatio ns:Malignant neoplasm of upper-outer quadrant of left breast in female, estrogen receptor negative (HCC) Take 1 Tablet by mouth every 8 hours as needed for Nausea. 30 Tablet 3 06/26/19 25 025 Disconti nued(Ref ill) documented as of this encounter (statuses as [...] and class I obesity. Per review of FLEXOGRAPHIC PRESS SET UP OPERATOR documentation of 09/25/23, blood [...] Recommend nutrition consult with RDN (Registered Dietitian Electro Mechanical Solar Technician). Lifestyle changes are also indicated including [...] folate levels and referral to a guest relations associate. If hemoglobin levels are below 8 g/dl, we recommend Maternal Medicine ultrasound for growth every 4 weeks after 24 weeks. Consider a blood transfusion if hemoglobin levels fall below 6 g/dL. ([employer] and Flour Tester Practice Bulletin Number 95, December,). Consider [...] money to get more. 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 * Telephone Encounter - Jaqueline Arenas RN - 10/24/2024 12:50 PM EDT Yuli is requesting a refill of Zofran as she is unable to find her current bottle. Please send to [facility] Michael Adkins. Nursing: HALEY Maravilla: HALEY Pierre: HALEY documented in this encounter Plan of Treatment Upcoming Encounters Date Type Department Care Team (Late st Contact Info) Description 11/06/2024 10:40 AM EDT Office Visit Family Practice [facility] [address] [place] [address] Malinda Owens CRNP [address] [place] [address] 11/13/2024 8:30 AM EDT Laboratory Laboratory [facility] [address] [place] [phone] Khris Amato [facility] [address] [place] [address] 11/13/2024 9:00 AM EDT Office Visit Hematology/Oncology [facility] 200 [place] [phone] Kanu Maravilla MD 200 [place] [address] 11/13/2024 9:30 AM EDT Hem/Onc Treatment Hematology/Oncology Treatment, [place] [address] [facility] [place] [place] [address] [place], Chair 7 Hem Onc [address] [place] [address] 04/27/2025 2:40 PM EST Telemedicine Endocrinology [address] [place] [address] Orlin Miranda MD [address] [place] [address] Health Maintenance Due Date Last [...] this encounter Medical Devices Implanted Type Area Head Of Loss Prevention Device Identifier Shelf Expiration Date Model / Serial / Lot Stent Kev 4fr 11cm - [id number] Implanted:Qty : 1 on 02/08/2024 by Jeffrey Kerr MD at OR [facility] [employer] [id number] 08/16/2028 [id number] / / [id number] Description:https://www.doct ordoctor.biz/search/Detail.aspx?result=0 JLS 09/04/2024 Non metallic Port Implant W8f Poly Cath - [id number] Implanted:Qty : 1 on 05/02/2024 by Iam Curry MD at OR [facility] Right: Chest CR BARD : PERIPHERAL VASCULAR [id number] 05/17/2025 [id number] / / [id number] documented as of this encounter Visit Diagnoses Diagnosis Malignant neoplasm of upper-outer quadrant of left breast in female, estrogen receptor negative (HCC) documented in this encounter Care Teams Patient Account Analyst Relationship Specialty Start Date End Date Malinda Owens CRNP [address] [place] [address] PCP - General Nurse Practitioner 09/20/23 documented as of this encounter
--- OUTSIDE RECORDS SUMMARY | 2024-11-01 03:37 | External Medical Summary | Summary of Care ---
Author Name Unknown Organization [facility] Address [address] [place] [address] Phone [phone] Care Team Providers Care Ballistics Tester Name Role Phone Malinda Owens Primary Care Provider [phone] Reason for Visit * Reason Comments Chemotherapy AC * Episode Based Medications (Routine) - Authorized Specialty Diagnoses / Procedures Referred By Contac t Referred To Contact Diagnoses Triple negative breast cancer (HCC) Encounter for antineoplastic chemotherapy Encounter for prevention of neutropenia due to chemotherapy Procedures UT DOXORUBIC HCL 10 MG VL CHEMO UT CARBOPLATIN INJECTION UT FOSAPREPITANT INJECTION UT INJ PEMBROLIZUMAB UT INJECTION, FULPHILA UT PACLITAXEL INJECTION UT INJ CYCLOPHOSPHAMD AUROMEDIC UT PALONOSETRON HCL Em Ng MD Hematology/Oncology Treatment, [address] [address] Phone: tel: fax: Referral ID Status Reason Start Date Expiration Date V isits Requested Visits Authorized [id number] Authorized 04/30/2024 06/17/2099 [id number] Encounter Details Date Type Department Care Team (Latest Contact Info) Description 10/23/2024 8:15 AM EDT Hem/Onc Treatment Hematology/Oncolog y Treatment, [address] [address] [place], Chair 9 Hem On[address] [address] Triple negative breast cancer (HCC)*; Malignant neoplasm of upper-outer quadrant of left breast in female, estrogen receptor negative (HCC); Encounter for antineoplastic chemotherapy; Encounter for prevention of neutropenia due to chemotherapy Allergies No known active allergiesdocumented as of this encounter (statuses as of 10/23/2024) Medications 19 29-1 MG Oral Tablet Chewable Take by mouth. Activ e Prochlorperazine Maleate 10 MG Oral Tablet (Compazine)Indicat [...] Additional Information Patient not taking.Reported on 10/16/2024 Lidocaine-Prilocai ne 2.5-2.5 % External Cream (Emla)Indications: [...] Additional Information Patient not taking.Reported on 10/16/2024 Diphenoxylate-Atro pine 2.5-0.025 MG Oral Tablet (Lomotil)Indicatio [...] 25 Active Famotidine 20 MG Oral Tablet (Pepcid)Indication s:Malignant [...] 25 Active Gabapentin 100 MG Oral Capsule (Neurontin)Indicat ions:Malignant neoplasm of upper-outer quadrant of left breast in female, estrogen receptor negative (HCC),Encounter for antineoplastic chemotherapy Take 1 Capsule by mouth at bedtime. 30 Capsule 1 10/07/19 25 Active Mag64 64 MG Oral Tablet Delayed ReleaseIndications :Malignant neoplasm of upper-outer quadrant of left breast in female, estrogen receptor negative (HCC),Encounter for antineoplastic chemotherapy Take 1 Tablet by mouth in the morning and 1 Tablet before bedtime. 60 Tablet 10/07/19 25 Active LORazepam 1 MG Oral Tablet (Ativan)Indication s:IGNACIO (generalized anxiety disorder),Panic attack Take 1 Tablet by mouth 3 times a day as needed for Anxiety. 30 Tablet 10/11/19 25 Active FLUoxetine HCl 20 MG Oral Capsule (PROzac)Indication s:IGNACIO (generalized anxiety disorder),Panic attack,Adjustment disorder with anxious mood Take 1 Capsule by mouth in the morning. 30 Capsule 5 10/11/19 25 Active Hydrocortisone 10 MG Oral Tablet (Cortef)Indication s:Malignant neoplasm of upper-outer quadrant of left breast in female, estrogen receptor negative (HCC),Encounter for antineoplastic chemotherapy Take 1 tablet in the morning 30 Tablet 5 10/17/19 25 Active Hydrocortisone 5 MG Oral Tablet (Cortef)Indication s:Hypophysitis (HCC) Take 1 Tablet by mouth in the morning and 1 Tablet before bedtime. 60 Tablet 5 10/17/19 25 Active OLANZapine 5 MG Oral TabletIndications: Malignant neoplasm of upper-outer quadrant of left breast in female, estrogen receptor negative (HCC) Take 1-2 Tablets by mouth at bedtime as needed for Insomnia or Nausea. 180 Tablet 10/23/19 25 Active documented as of this encounter (statuses as of 10/23/2024) Active Problems Problem Noted Date Diagnosed Date [...] as of this encounter (statuses as of 10/23/2024) Resolved Problems Problem Noted Date Diagnosed Date [...] in Current Health. Plans to pharmacy picking tech meter from pharmacy today. Instructions [...] and class I obesity. Per review of SECOND HELPER documentation of 09/25/23, blood glucose values [...] Recommend nutrition consult with RDN (Registered Dietitian Paper Goods Machine Set Up Operator). Lifestyle changes are also indicated including [...] and folate levels and referral to a blind teacher. If hemoglobin levels are below 8 g/dl, we recommend Maternal Medicine ultrasound for growth every 4 weeks after 24 weeks. Consider a blood transfusion if hemoglobin levels fall below 6 g/dL. ([employer] [facility] Paper [employer] Superintendent Practice Bulletin Number 95, December,). Consider Venofer transfusions if patient labs supportive of iron deficiency anemia with dosing of 300 mg IV weekly x 3 weeks Abnormal glucose tolerance i n mother complicating 04/19/2023 08/31/2023 Overview (04/19/2023): Failed early glucola. 3hr GTT ordered Encounter for supervision of other normal , unspecified trimester 04/03/2023 025 documented as of this encounter (statuses as of 10/23/2024) Immunizations Name Administration Dates Next Due DTP [...] money to get more. 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 Port needle flushed with 10 ml NSS, blood return noted, and port locked with additional 10 ml NSS. Lopez needle removed, intact, gauze dressing applied. Goals: Pt will remain free from injury. Possible barriers to meeting goals: ambulation with IV pole, possible weakness/fatigue from treatment Stability of the patient: Moderately stable - low risk of patient condition declining or worsening Summary regarding today's goals: Met: . Pt remained free from injury during treatment today. Discharged in stable condition. * Ava Pope RN - 10/23/2024 8:52 AM EDT Chair 12. Pt presents to clinic for labs from port, treatment pending lab results. Pt reports feeling "much better" than she did on Sunday. VAD accessed; flushed easily with brisk blood return. [place], specimen collected for ordered labs. VAD capped/clamped pending labs. Chemotherapy/Immunotherapy agents: LAURYN/CYTOXAN Consent for chemotherapy drug treatment complete, dated, and signed? yes, date - 04/24/24 Treatment lab parameters met? Yes ANC 1.[address] Maravilla; okay to proceed with treatment as ordered. Has treatment weight changed > than 10%? No Treatment preauthorized? Yes VITALS Filed Vitals: 10/23/24 0938 BP: 92/62 Pulse: 60 Resp: 16 Temp: 36.1 °C (97 °F) SpO2: 97% BP Readings from Last 2 Encounters: 10/23/24 92/62 10/20/24 92/54 Pulse Readings from Last 2 Encounters: 10/23/24 60 10/20/24 75 Resp Readings from Last 2 Encounters: 10/23/24 16 10/20/24 16 SpO2 Readings from Last 2 Encounters: 10/23/24 97% 10/20/24 97% Temp Readings from Last 2 Encounters: 10/23/24 36.1 °C (97 °F) 10/20/24 36.3 °C (97.4 °F) (Tympanic) Urine protein: N/A Patient education completed for treatment? Yes Blood transfusion consent signed and complete? NA Return appointment scheduled? Yes Patient had provider visit today? No - If no provider visit must complete Pretreatment Assessment PRE-TREATMENT ASSESSMENT: NEURO: changes in mood or behavior: pt reports anxiety has improved and fatigue:ongoing, improved in the last few days CV/RESP: denies symptoms GI/: denies symptoms OTHER: denies any additional symptoms PAIN: 0 NSS Infusing. Safety and Risk for Injury Patient will [...] 10/24/2024 11:30 AM EDT Hem/Onc Treatment Hematology/Oncology Treatment, [place] [address] [place] [address] [place], Chair 2 Hem Onc [address] [place] [address] 11/06/2024 10:40 AM EDT [facility] [address] [facility] [place] [address] Malinda Owens CRNP [address] [place] [address] 11/13/2024 8:30 AM EDT Laboratory Laboratory [facility] [place] [address] [place] [address] [place] [facility] [place] [address] [address] [facility] [place] [address] 11/13/2024 9:00 AM EDT Office Visit Hematology/Oncology [facility] [address] [place] [address] Kanu Maravilla MD [address] [facility] [place] [address] 11/13/2024 9:30 AM EDT Hem/Onc Treatment Hematology/Oncology Treatment, [place] [address] [place] [address] [place], Chair 7 Hem Onc [facility] [address] [place] [address] 04/27/2025 2:40 PM EST Telemedicine Endocrinology Kyrie [...] this encounter Medical Devices Implanted Type Area Shop Repairer Device Identifier Shelf Expiration Date Model / Serial / Lot Stent Kev 4fr 11cm - [id number] Implanted:Qty : 1 on 02/08/2024 by Jeffrey Kerr MD at OR [facility] [employer] [id number] 08/16/2028 [id number] / / [id number] Description:https://www.doct ordoctor.biz/search/Detail.aspx?result=0 JLS 09/04/2024 Non metallic Port Implant W8f Poly Cath - [id number] Implanted:Qty : 1 on 05/02/2024 by Iam Curyr MD at [facility] Right: Chest CR BARD : PERIPHERAL VASCULAR [id number] 05/17/2025 [id number] / / [id number] documented as of this encounter Procedures Procedure Name Priority Date/Time Associated Diagnosis Comments HCG QUALITATIVE, URINE STAT 8:57 AM EDT Malignant neoplasm of upper-outer quadrant of left breast in female, estrogen receptor negative (HCC) DIFFERENTIAL, AUTOMATED STAT 10/23/2024 8:39 AM EDT Malignant neoplasm of upper-outer quadrant of left breast in female, estrogen receptor negative (HCC) COMPREHENSIVE METABOLIC PANEL STAT 10/23/2024 8:39 AM EDT Malignant neoplasm of upper-outer quadrant of left breast in female, estrogen receptor negative (HCC) CBC STAT 10/23/2024 8:39 AM EDT Malignant neoplasm of upper-outer quadrant of left breast in female, estrogen receptor negative (HCC) CBC STAT 10/23/2024 8:39 AM EDT Malignant neoplasm of upper-outer quadrant of left breast in female, estrogen receptor negative (HCC) documented in this encounter Results * HCG QUALITATIVE, URINE (10/23/2024 8:57 AM EDT) HCG Qualitative, Urine Negative Negative 10/23/2024 9:08 AM EDT [facility] 56 Urine Urine specimen / Unknown Non-blood Collection / Unknown 10/23/2024 8:57 AM EDT 10/23/2024 9:00 AM EDT Kanu Maravilla MD LAB URINE ORDERABLES Final Res ult [facility] [address] [place], [place] [id number] * (ABNORMAL) DIFFERENTIAL, AUTOMATED (10/23/2024 8:39 AM EDT) WBC 4.40 4.00 - 10.80 K/uL 10/23/2024 8:50 AM EDT [facility] 56- Neutrophils % 23.9(L) 40.0 - 75.0 % 10/23/2024 8:50 AM EDT [facility] 56- Lymphocytes % 53.4(H) 18.0 - 42.0 % 10/23/2024 8:50 AM EDT [facility] 56-02 Monocytes % 12.7(H) 1.0 - 11.0 % 10/23/2024 8:50 AM EDT [facility] 56-02 Eosinophils % 9.5(H) 0.0 - 6.0 % 10/23/2024 8:50 AM EDT [facility] 56-02 Basophils % 0.5 0.0 - 2.0 % 10/23/2024 8:50 AM EDT [facility] 56-02 Absolute Neutrophils 1.05(L) 1.80 - 7.70 K/uL 10/23/2024 8:50 AM EDT [facility] 56-02 Absolute Lymphocytes 2.35 1.00 - 4.80 K/ul 10/23/2024 8:50 AM EDT [facility] 56-02 Absolute Monocytes 0.56 0.00 - 1.10 K/uL 10/23/2024 8:50 AM EDT [facility] 56-02 Absolute Eosinophils 0.42 0.00 - 0.70 K/uL 10/23/2024 8:50 AM EDT [facility] 56-02 Absolute Basophils 0.02 0.00 - 0.20 K/uL 10/23/2024 8:50 AM EDT [facility] 56 Blood Blood sample taken from central line / Unknown Central Line / Unknown 10/23/2024 8:39 AM EDT 10/23/2024 8:47 AM EDT us Kanu Maravilla MD LAB BLOOD ORDERABLES Final Res ult [facility] [address] [place], [place] [id number] * (ABNORMAL) CBC (10/23/2024 8:39 AM EDT) WBC 4.40 4.00 - 10.80 K/uL 10/23/2024 8:50 AM EDT [address] RBC 3.16 3.85 - 5.15 M/uL 10/23/2024 8:50 AM EDT [address] HGB 10.5(L) 12.0 - 15.3 g/dL 10/23/2024 8:50 AM EDT [facility] 56 HCT 31.5(L) 36.0 - 45.2 % 10/23/2024 8:50 AM EDT [facility] 56 MCV 99.7 81.5 - 97.5 fL 10/23/2024 8:50 AM EDT [facility] 56 MCH 33.2 27.0 - 34.0 pg 10/23/2024 8:50 AM EDT [facility] 56 MCHC 33.3 32.0 - 36.0 g/dL 10/23/2024 8:50 AM EDT [facility] 56 RDW 13.6 11.5 - 15.5 % 10/23/2024 8:50 AM EDT [facility] 56 PLT 133(L) 140 - 400 K/uL 10/23/2024 8:50 AM EDT [facility] 56 MPV 9.6 6.6 - 11.1 fL 10/23/2024 8:50 AM EDT [facility] 56 Blood Blood sample taken from central line / Unknown Central Line / Unknown 10/23/2024 8:39 AM EDT 10/23/2024 8:47 AM EDT us Kaun Maravilla MD LAB BLOOD ORDERABLES Final Res ult [facility] [address] [place] [address] * (ABNORMAL) COMPREHENSIVE METABOLIC PANEL (10/23/2024 8:39 AM EDT) BUN 13 6 - 20 mg/dL 10/23/2024 9:14 AM EDT [facility] CREATININE 0.8 0.5 - 1.0 mg/dL 10/23/2024 9:14 AM EDT [facility] EGFR >90 >=60 mL/min 10/23/2024 9:14 AM EDT [facility] Comment:eGFR is calculated b ased on the CKD-EPI 2020 equation. SODIUM 141 135 - 146 mmol/L 10/23/2024 9:14 AM EDT [facility] POTASSIUM 3.9 3.5 - 5.1 mmol/L 10/23/2024 9:14 AM EDT [facility] CHLORIDE 109(H) 98 - 107 mmol/L 10/23/2024 9:14 AM EDT [facility] CO2 21(L) 22 - 32 mmol/L 10/23/2024 9:14 AM EDT [facility] ANION GAP 11 7 - 15 mmol/L 10/23/2024 9:14 AM EDT [facility] GLUCOSE 98 70 - 120 mg/dL 10/23/2024 9:14 AM EDT [facility] Albumin 4.4 3.8 - 5.0 g/dL 10/23/2024 9:14 AM EDT [facility] 56 AST 18 10 - 35 U/L 10/23/2024 9:14 AM EDT [facility] 56 Alkaline Phosphatase 51 35 - 130 U/L 10/23/2024 9:14 AM EDT [facility] 56 Bilirubin, Total 0.6 <=1.2 mg/dL 10/23/2024 9:14 AM EDT [facility] 56- CALCIUM 9.4 8.4 - 10.2 mg/dL 10/23/2024 9:14 AM EDT [facility] 56- Protein 6.6 6.0 - 8.3 g/dL 10/23/2024 9:14 AM EDT [facility] 56- ALT 18 10 - 35 U/L 10/23/2024 9:14 AM EDT [facility] 56- Blood Blood sample taken from central line / Unknown Venipuncture / Unknown 10/23/2024 8:39 AM EDT 10/23/2024 8:47 AM EDT us Kanu Maravilla MD LAB BLOOD ORDERABLES Final Res ult [facility] [address] [place] [address] documented in this encounter Visit Diagnoses Diagnosis Triple negative breast cancer (HCC)- Primary Malignant neoplasm of upper-outer quadrant [...] Recorded weight), IV Piggyback, ONCE, On Bibi 10/23/24 at 1200, For 1 dose, Cyclophosphamide doses over 1g should be in 500 mL.May extend infusion to 1 hour if not tolerated.Indications:Tripl e negative breast cancer (HCC),Encounter for antineoplastic chemotherapy,Encounter for prevention of neutropenia due to chemotherapy Start Infusion 10/23/2024 10:55 AM EDT 1,240 mg 1032.4 mL/hr DOXOrubicin (Adriamycin) inj 124 mg 124 mg (rounded from 123.6 mg = 60 mg/m2 2.06 m2 Treatment Plan BSA from Recorded weight), IV Push, ONCE, On Bibi 10/23/24 at 1130, For 1 dose, Dispensed and administered in a syringe.Indications:Triple negative breast cancer (HCC),Encounter for antineoplastic chemotherapy,Encounter for prevention of neutropenia due to chemotherapy Given 10/23/2024 10:44 AM EDT 62 mg Subsq SYR 10/23/2024 10:41 AM EDT 62 mg Fosaprepitant Dimeglumine (Emend) 150 mg, ondansetron (Zofran) 16 mg, dexamethasone sodium phosphate 12 mg in NSS 250 mL Infusion 150 mg, IV Piggyback, ONCE, 1 dose, On Bibi 10/23/24 at 1030, Administer over 30 Minutes, Infuse over 30 minutes. Give 30 minutes prior to chemotherapy.Indications:Trip le negative breast cancer (HCC),Encounter for antineoplastic chemotherapy,Encounter for prevention of neutropenia due to chemotherapy Start Infusion 10/23/2024 9:50 AM EDT 150 mg 538.4 mL/hr NSS infusion FOR HYDRATION Intravenous, at 500 mL/hr Administer over 2 Hours, ONCE, 1 dose, On Bibi 10/23/24 at 1000Indications:Triple negative breast cancer (HCC),Encounter for antineoplastic chemotherapy,Encounter for prevention of neutropenia due to chemotherapy Start Infusion 10/23/2024 9:35 AM EDT 1,000 mL 500 mL/hr NSS infusion 500 mL, Intravenous, at 50 mL/hr, ONCE PRN, 1 dose, Starting on Bibi 10/23/24 at 1030, Until Bibi 10/23/24 at 1134, Other, maintain lineIndications:Triple negative breast cancer (HCC),Encounter for antineoplastic chemotherapy,Encounter for prevention of neutropenia due to chemotherapy Start Infusion 10/23/2024 9:30 AM EDT 500 mL 50 mL/hr sodium chloride 0.9 % flush/inj 10 mL 10 mL, IV Push, PRN line flush, Starting on Bibi 10/23/24 at 0927, Until Bibi 10/23/24 at 1942, Do not flush if lock, PICC, or central line not in place; IV infusing or unable to flush. For midlines and central lines.Indications:Triple negative breast cancer (HCC),Encounter for antineoplastic chemotherapy,Encounter for prevention of neutropenia due to chemotherapy Given 10/23/2024 10:40 AM EDT 10 mL sodium chloride 0.9 % flush/inj 20 mL 20 mL, IV Push, PRN IV Flush and Lock, Starting on Bibi 10/23/24 at 0853, Until Bibi 10/23/24 at 1942, Do not flush if lock, PICC, or central line not in place; IV infusing or unable to flush. For midlines and central lines. For IV Flush and Lock, IVAD is flushed with a total of 20 mL Normal Saline, 10 mL of Normal Saline Flush with 10 mL of Normal Saline acting as IV LOCK.Indications:Triple negative breast cancer (HCC) Given 10/23/2024 11:38 AM EDT 20 mL documented in this encounter Care Teams Ballistics Tester Relationship Specialty Start Date End Date Malinda Owens CRNP [address] [place] [address] PCP - General Nurse Practitioner 09/20/23 documented as of this encounter
--- OUTSIDE RECORDS SUMMARY | 2024-11-01 03:37 | External Medical Summary ---
Author Name Unknown Address Unknown Organization K09:[facility] [place] [address] Laboratory Report Ordering Provider Test Date Status JASMINE JANSEN 10/23/2024 08:39:27 Final Observation Date Value Abnormality Reference (Units ) Status WBC, Total 10/23/2024 08:39:27 4.40 4.00-10.8 0 (K/uL) Final RBC 10/23/2024 08:39:27 3.16 3.85-5.15 (M/uL) Final Hemoglobin 10/23/2024 08:39:27 10.5 Below low normal 12 .0-15.3 (g/dL) Final HCT 10/23/2024 08:39:27 31.5 Below low normal 36. 0-45.2 (%) Final MCV 10/23/2024 08:39:27 99.7 81.5-97.5 (fL) Final MCH 10/23/2024 08:39:27 33.2 27.0-34.0 (pg) Final MCHC 10/23/2024 08:39:27 33.3 32.0-36.0 (g/dL) Final RDW 10/23/2024 08:39:27 13.6 11.5-15.5 (%) Final Platelets 10/23/2024 08:39:27 133 Below low normal 140 -400 (K/uL) Final MPV 10/23/2024 08:39:27 9.6 6.6-11.1 ( fL) Final Performing Location [facility] [place] [address]
--- OUTSIDE RECORDS SUMMARY | 2024-11-01 03:37 | External Medical Summary | Summary of Care ---
Author Name Unknown Organization [facility] Address [address] [place] [address] Phone [phone] Care Team Providers Care Natural Resources Extension Educator Name Role Phone Owens Ridgemargaret AD Primary Care Provider [phone] Reason for Visit * Reason Comments Chemotherapy [...] HCL Em Ng MD Hematology/Oncology Treatment, [address] [address] Phone: tel: fax: Referral ID Status Reason Start Date Expiration Date V isits Requested Visits Authorized [id number] Authorized 04/30/2024 06/17/[phone] Encounter Details Date Type Department Care Team (Latest Contact Info) Description 09/18/2024 12:30 PM EDT Hem/Onc Treatment Hematology/Oncolog y Treatment, [address] [address] [place], Chair 6 Hem Onc [address] [id number] Triple negative breast cancer (HCC)*; Encounter for [...] complete. Enrolled in Current Health. Plans to metal pickling equipment operator meter from pharmacy today. Instructions provided [...] and class I obesity. Per review of TABLE RUNNER documentation of 09/25/23, blood glucose values have [...] Recommend nutrition consult with RDN (Registered Dietitian Social Media Senior Associate). Lifestyle changes are also indicated including optimizing [...] folate levels and referral to a charter driver. If hemoglobin levels are below 8 g/dl, we recommend Maternal Medicine ultrasound for growth every 4 weeks after 24 weeks. Consider a blood transfusion if hemoglobin levels fall below 6 g/dL. ([employer] [facility] [employer] Vice President Practice Bulletin Number 95, December,). Consider Venofer [...] money to get more. 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 Not on [...] Description 11/06/2024 10:40 AM EDT Office Visit [facility] [address] [facility] [place] [address] Malinda Owens CRNP [address] [facility] [place] [address] 11/13/2024 8:30 AM EDT Laboratory Laboratory [facility] [place] [address] [facility] [place] [phone] Khris Amato [facility] [address] [place] [address] 11/13/2024 9:00 AM EDT Office Visit Hematology/Oncology [facility] [place] [address] [facility] [place] [phone] Kanu Maravilla MD 200 [facility] [place] [address] 11/13/2024 9:30 AM EDT Hem/Onc Treatment Hematology/Oncology Treatment, [place] [address] [place] [address] [place], Chair 7 Hem Onc [address] [place] [address] 04/27/2025 2:40 PM EST Telemedicine Endocrinology [address] [place], [place] [address] Orlin Miranda MD [address], [...] this encounter Medical Devices Implanted Type Area Robotic Welding Operator Device Identifier Shelf Expiration Date Model / Serial / Lot Stent Kev 4fr 11cm - [id number] Implanted:Qty : 1 on 02/08/2024 by Jeffrey Kerr MD at OR [facility] [employer] [id number] 08/16/2028 [id number] / / [id number] Description:https://www.doct ordoctor.biz/search/Detail.aspx?result=0 JLS 09/04/2024 Non metallic Port Implant W8f Poly Cath - [id number] Implanted:Qty : 1 on 05/02/2024 by Iam Curry MD at OR [facility] Right: Chest CR BARD : PERIPHERAL VASCULAR [id number] 05/17/2025 [id number] / / [id number] documented as of this encounter Visit Diagnoses [...] mL documented in this encounter Care Teams Natural Resources Extension Educator Relationship Specialty Start Date End Date Malinda Owens CRNP [address] [place] [address] PCP - General Nurse Practitioner 09/20/23 documented as of this encounter
--- OUTSIDE RECORDS SUMMARY | 2024-11-01 03:37 | External Medical Summary | Summary of Care ---
Author Name Unknown Organization [facility] Address [address] [place] [address] Phone [phone] Care Team Providers Care Billing And Quality Technician Name Role Phone Owens Ridgemargaret AD Primary Care Provider Reason for Visit * Reason Comments Chemotherapy C6 D1 Keytruda, A/C and hydration * Episode Based Medications (Routine) - Authorized Specialty Diagnoses / Procedures Referred By Contjeffery t Referred To Contact Diagnoses Triple negative breast cancer (HCC) Encounter for antineoplastic chemotherapy Encounter for prevention of neutropenia due to chemotherapy Procedures WA DOXORUBIC HCL 10 MG VL CHEMO WA CARBOPLATIN INJECTION WA FOSAPREPITANT INJECTION WA INJ PEMBROLIZUMAB WA INJECTION, FULPHILA WA PACLITAXEL INJECTION WA INJ CYCLOPHOSPHAMD AUROMEDIC WA PALONOSETRON HCL Em Ng MD Hematology/Oncology Treatment, [address] [address] Phone: tel: fax: Referral ID Status Reason Start Date Expiration Date V isits Requested Visits Authorized [id number] Authorized 04/30/2024 06/17/2099 [id number] Encounter Details Date Type Department Care Team (Latest Contact Info) Description 09/18/2024 12:30 PM EDT Hem/Onc Treatment Hematology/Oncolog y Treatment, [address] [address] [place], Chair 6 Hem On[address] [id number] Triple negative breast cancer (HCC)*; Encounter for [...] and class I obesity. Per review of CORNER CUTTER MACHINE OPERATOR documentation of 09/25/23, blood glucose [...] Recommend nutrition consult with RDN (Registered Dietitian Engineering Psychologist). Lifestyle changes are also indicated including optimizing [...] folate levels and referral to a transmission repairer. If hemoglobin levels are below 8 g/dl, we recommend Maternal Medicine ultrasound for growth every 4 weeks after 24 weeks. Consider a blood transfusion if hemoglobin levels fall below 6 g/dL. ([employer] Bulletin Number 95, December,). Consider Venofer [...] money to get more. 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 on file [...] Description 11/06/2024 10:40 AM EDT Office Visit [facility] [address] [facility] [place] [address] Malinda Owens CRNP 132 [facility] [place] [address] 11/13/2024 8:30 AM EDT Laboratory Laboratory [facility] [place] [address] [facility] [place] [phone] Khris Amato [facility] [address] [place] [address] [address] 11/13/2024 9:00 AM EDT Office Visit Hematology/Oncology [facility] [place] [address] [facility] [place] [phone] Kanu Maravilla MD 200 [facility] [place] [address] 11/13/2024 9:30 AM EDT Hem/Onc Treatment Hematology/Oncology Treatment, [place] [address] [place] [address] [place], Chair 7 Hem Onc [address] [facility] [place] [address] 04/27/2025 2:40 PM EST Telemedicine Endocrinology Kyrie [...] this encounter Medical Devices Implanted Type Area Spool Cleaner Hand Device Identifier Shelf Expiration Date Model / Serial / Lot Stent Kev 4fr 11cm - [id number] Implanted:Qty : 1 on 02/08/2024 by Jeffrey Kerr MD at OR [facility] [employer] [id number] 08/16/2028 [id number] / / [id number] Description:https://www.doct ordoctor.biz/search/Detail.aspx?result=0 JLS 09/04/2024 Non metallic Port Implant W8f Poly Cath - [id number] Implanted:Qty : 1 on 05/02/2024 by Iam Curry MD at OR [facility] Right: Chest CR BARD : PERIPHERAL VASCULAR [id number] 05/17/2025 [id number] / / [id number] documented as of this encounter Visit Diagnoses [...] documented in this encounter Care Teams Billing And Quality Technician Relationship Specialty Start Date End Date Malinda Owens CRNP [address] [place] [address] PCP - General Nurse Practitioner 09/20/23 documented as of this encounter
--- OUTSIDE RECORDS SUMMARY | 2024-11-01 03:37 | External Medical Summary ---
Author Name Unknown Address Unknown Organization K09:[facility] [address] [place] [address] Laboratory Report Ordering Provider Test Date Status JASMINE JANSEN 10/23/2024 08:39:27 Final Observation Date Value Abnormality Reference (Units ) Status BUN 10/23/2024 08:39:27 13 6-20 (mg/dL) Final Creatinine 10/23/2024 08:39:27 0.8 0.5-1.0 (mg/dL) Final Glomerular filtration rate/1.73 sq M.predicted [Volume Rate/Area] in Serum, Plasma or Blood by Creatinine-based formula (CKD-EPI) 10/23/2024 08:39:27 >90 >=60 (mL/min) Final eGFR is calculated based on the CKD-EPI 2020 equation. Sodium 10/23/2024 08:39:27 141 135-146 (m mol/L) Final Potassium 10/23/2024 08:39:27 3.9 3.5-5.1 (m mol/L) Final Cl 10/23/2024 08:39:27 109 Above high normal 98 -107 (mmol/L) Final CO2 10/23/2024 08:39:27 21 Below low normal 22- 32 (mmol/L) Final Anion gap 10/23/2024 08:39:27 11 7-15 (mmol /L) Final Glucose 10/23/2024 08:39:27 98 70-120 (mg /dL) Final Albumin 10/23/2024 08:39:27 4.4 3.8-5.0 (g /dL) Final AST (Aspartate aminotransferase) 10/23/2024 08:39:27 18 10-35 (U/L) Fin al Alk Phos 10/23/2024 08:39:27 51 35-130 (U/ L) Final Bilirubin, Total 10/23/2024 08:39:27 0.6 <=1 .2 (mg/dL) Final Calcium 10/23/2024 08:39:27 9.4 8.4-10.2 ( mg/dL) Final Protein 10/23/2024 08:39:27 6.6 6.0-8.3 (g /dL) Final ALT (Alanine aminotransferase) 10/23/2024 08:39:27 18 10-35 (U/L) Clifton [email or web address] Performing Location [facility] [address] [place] [address]
--- OUTSIDE RECORDS SUMMARY | 2024-11-01 03:37 | External Medical Summary ---
Author Name Unknown Address Unknown Organization K[facility] [place] [place] [address] Laboratory Report Ordering Provider Test Date Status JASMINE JANSEN 10/23/2024 08:39:27 Final Observation Date Value Abnormality Reference (Units ) Status SYNC LEUKOCYTES IN BLOOD BY AUTOMATED COUNT 10/23/2024 08:39:27 4.40 4.00-10.80 (K/uL) Final Segs 10/23/2024 08:39:27 23.9 Below low normal 40.0-75.0 (%) Final Lymphs % 10/23/2024 08:39:27 53.4 Above high normal 18.0-42.0 (%) Final Monos 10/23/2024 08:39:27 12.7 Above high normal 1.0-11.0 (%) Final Eosinophils 10/23/2024 08:39:27 9.5 Above high normal 0.0-6.0 (%) Final Basos 10/23/2024 08:39:27 0.5 0.0-2.0 (%) Final Absolute Segs 10/23/2024 08:39:27 1.05 Below low normal 1.80-7.70 (K/uL) Final Lymphs, absolute 10/23/2024 08:39:27 2.35 1.00-4.80 (K/ul) Final Monos, Abs 10/23/2024 08:39:27 0.56 0.00-1.10 (K/uL) Final Eos, Abs 10/23/2024 08:39:27 0.42 0.00-0.70 (K/uL) Final Basos, Abs 10/23/2024 08:39:27 0.02 0.00-0.20 (K/uL) Final Performing Location [facility] [place] [address]
--- OUTSIDE RECORDS SUMMARY | 2024-11-01 03:37 | External Medical Summary ---
Author Name Unknown Address Unknown Organization K09[facility] [place] [address] Laboratory Report Ordering Provider Test Date Status JASMINE JANSEN 10/23/2024 08:57:58 Final Observation Date Value Abnormality Reference (Units ) Status Screen, Urine 10/23/2024 08:57:58 Negative Negative Final Performing Location [facility] [place] [address]
--- OUTSIDE RECORDS SUMMARY | 2024-11-01 03:37 | External Medical Summary | Summary of Care ---
Author Name Unknown Organization [facility] Address [address] [place] [address] Phone [phone] Care Team Providers Care Associate Music Professor Name Role Phone Malinda Owens Primary Care Provider [phone] Reason for Visit * Reason Comments Infusion C7 D2 Hydration Medication Administration Fulphila * Episode Based [...] HCL Em Ng MD Hematology/Oncology Treatment, [address] [address] Phone: tel: fax: Referral ID Status Reason Start Date Expiration Date V isits Requested Visits Authorized [id number] Authorized 04/30/2024 06/17/[phone] Encounter Details Date Type Department Care Team (Latest Contact Info) Description 10/24/2024 11:30 AM EDT Hem/Onc Treatment Hematology/Oncolog y Treatment, [address] [address] [place], Chair 2 Hem Onc [address] [address] Triple negative breast cancer (HCC)*; [...] and class I obesity. Per review of DOT NET ARCHITECT documentation of 09/25/23, blood glucose values [...] Recommend nutrition consult with RDN (Registered Dietitian Tar Boiler). Lifestyle changes are also indicated including optimizing [...] and folate levels and referral to a christmas bell ringer. If hemoglobin levels are below 8 g/dl, we recommend Maternal Medicine ultrasound for growth every 4 weeks after 24 weeks. Consider a blood transfusion if hemoglobin levels fall below 6 g/dL. ([employer] [facility] [employer]ard[employer] A[employer] Practice Bulletin Number 95, December,). Consider Venofer [...] to get more. 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 Port needle flushed with 10 ml NSS, blood return noted, and port locked with additional 10 ml NSS. Lopez needle removed, intact, gauze dressing applied. Goals: Patient will remain free from injury. Possible barriers to meeting goals: Ambulating with IV pole. Stability of the patient: Moderately stable - low risk of patient condition declining or worsening Summary regarding today's goals: Met: Patient remained free from harm. Pt discharged in stable condition. * Jaqueline Arenas RN - 10/24/2024 3:53 PM EDT Chair 12 Patient here for hydration and fulphila. Port accessed with brisk blood return. Patient request refill of zofran, request made. Patient continues to be pale but appears to have more energy. Patient instructed on use of heat in [...] Description 11/06/2024 10:40 AM EDT Office Visit [facility] [address] [place] [address] Malinda Owens CRNP [address] [place] [address] 11/13/2024 8:30 AM EDT Laboratory Laboratory [facility] [place] [address] [place] [place] [phone] [place] [facility] [address] [place] [address] 11/13/2024 9:00 AM EDT Office Visit Hematology/Oncology [facility] [place] [address] [place] [address] [phone] Kanu Maravilla MD [address] [place] [address] 11/13/2024 9:30 AM EDT [facility] [address] [place] [address] [place], Chair 7 Hem Onc [facility] 200 [facility], [place] [address] 04/27/2025 2:40 PM EST Telemedicine Endocrinology Kyrie Hi Dr [address] [place] [phone] Orlin Miranda MD [address], [...] encounter Medical Devices Implanted Type Area Insurance Defense Attorney Device Identifier Shelf Expiration Date Model / Serial / Lot Stent Kev 4fr 11cm - [id number] Implanted:Qty : 1 on 02/08/2024 by Jeffrye Kerr MD at OR [facility] [employer] [id number] 08/16/2028 6546 / / [id number] Description:https://www.doct ordoctor.biz/search/Detail.aspx?result=0 JLS 09/04/2024 Non metallic Port Implant W8f Poly Cath - [id number] Implanted:Qty : 1 on 05/02/2024 by Iam Curry MD at OR [facility] Right: Chest CR BARD : PERIPHERAL VASCULAR [id number] 05/17/2025 [id number] / / [id number] documented as of this encounter Visit Diagnoses [...] over 2 Hours, ONCE, 1 dose, On Sun10/24/24 at 1245Indications:Triple negative breast cancer (HCC),Encounter for antineoplastic chemotherapy,Encounter for prevention of neutropenia due to chemotherapy Start Infusion 10/24/2024 12:04 PM EDT 1,000 mL 500 mL/hr Pegfilgrastim-jmdb (Fulphila) inj 6 mg 6 mg, Subcutaneous, ONCE, On Sun10/24/24 at 1245, For 1 doseIndications:Triple negative breast cancer (HCC),Encounter for antineoplastic chemotherapy,Encounter for prevention of neutropenia due to chemotherapy Given 10/24/2024 12:04 PM EDT 6 mg Arm Left Upper sodium chloride 0.9 % flush/inj 20 mL 20 mL, IV Push, PRN IV Flush and Lock, Starting on Sun10/24/24 at 1203, Until Sun10/24/24 at 1958, Do not flush if lock, PICC, or [...] prevention of neutropenia due to chemotherapy Given 10/24/2024 2:04 PM EDT 20 mL documented in this encounter Care Teams Associate Music Professor Relationship Specialty Start Date End Date Malinda Owens CRNP [address] [place] [address] PCP - General Nurse Practitioner 09/20/23 documented as of this encounter
--- OUTSIDE RECORDS SUMMARY | 2024-11-01 03:38 | External Medical Summary | Summary of Care ---
Author Name Unknown Organization [facility] Address [address] [place] [facility] [address] Phone [phone] Care Team Providers Care Gas Producer Name Role Phone Malinda Owens Primary Care Provider [phone] Reason for Visit * Reason Comments Procedure Labs from port Encounter Details Date Type Department Care Team (Late st Contact Info) Description 10/20/2024 8:00 AM EDT Nurse Only Hematology/Oncology Treatment, [address] [address] [place], Chair 1 Hem Onc [address] [address] Procedure (Labs from port) Allergies No known active allergiesdocumented as of this encounter (statuses as of 10/20/2024) Medications 19 29-1 MG Oral Tablet Chewable [...] Nausea. 60 Tablet 1 09/03/19 25 Active Famotidine 20 MG Oral Tablet [...] bedtime. 60 Tablet 5 10/17/19 25 Active documented as of this encounter (statuses as of 10/20/2024) Active Problems Problem Noted Date Diagnosed Date [...] as of this encounter (statuses as of 10/20/2024) Resolved Problems Problem Noted Date Diagnosed Date [...] MFM ADAPT consult complete. Enrolled in [employer]. Plans to chart picker meter from pharmacy [...] and class I obesity. Per review of TRAMPOLINE TEAM COACH documentation of 09/25/23, blood glucose values [...] Recommend nutrition consult with RDN (Registered Dietitian Associate Professor Of English). Lifestyle changes are also indicated including optimizing [...] and folate levels and referral to a germination testing manager. If hemoglobin levels are below 8 g/dl, we recommend Maternal Medicine ultrasound for growth every 4 weeks after 24 weeks. Consider a blood transfusion if hemoglobin levels fall below 6 g/dL. ([employer] and Electric Freight Car Operator Practice Bulletin Number 95, December,). Consider Venofer transfusions if patient labs supportive of iron deficiency anemia with dosing of 300 mg IV weekly x 3 weeks Abnormal glucose tolerance i n mother complicating 04/19/2023 08/31/2023 Overview (04/19/2023): Failed early glucola. 3hr GTT ordered Encounter for supervision of other normal , unspecified trimester 04/03/2023 025 documented as of this encounter (statuses as of 10/20/2024) Immunizations Name Administration Dates Next Due DTP [...] money to get more. 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 Port accessed for treatment today and for labs draw via port beforehand. Patient is here to receiveAC treatment today, depending on labs. Labs drawn via port per protocol without difficulty. Transparent dressing applied. Port needle left in place for chemo today. Flushed and locked with total 20 ml NSS. Awaiting labs results. Patient is comfortable and denies further needs at this [...] Care Team (Late st Contact Info) Description 10/23/2024 8:15 AM EDT [facility] [phone] [place], Chair 9 Hem Onc [address] [place] [address] 10/30/2024 9:00 AM EDT Office Visit Hematology/Oncology [facility] [place] 200 [facility] [place] [phone] Kanu Maravilla MD 200 [facility] [place] [address] 11/06/2024 10:40 AM EDT Office Visit [facility] [address] [place] [address] Malinda Owens CRNP [address] [place] [address] 04/27/2025 2:40 PM EST Telemedicine Endocrinology Kyrie [address] Dr [address] [place] [phone] Orlin Miranda MD [address] [place] [address] [address] Pending Results Name Type Priority Associated Diagnoses Date /Time TSH WITH FREE T4 IF INDICATED Lab STAT Malignant neoplasm of upper-outer quadrant of left breast in female, estrogen receptor negative (HCC) 10/20/2024 8:46 AM EDT Health Maintenance Due Date Last [...] this encounter Medical Devices Implanted Type Area Regional Operations Manager Device Identifier Shelf Expiration Date Model / Serial / Lot Stent Kev 4fr 11cm - [id number] Implanted:Qty : 1 on 02/08/2024 by Jeffrey Kerr MD at OR [facility] [employer] [id number] 08/16/2028 [id number] / / [id number] Description:https://www.doct ordoctor.biz/search/Detail.aspx?result=0 JLS 09/04/2024 Non metallic Port Implant W8f Poly Cath - [id number] Implanted:Qty : 1 on 05/02/2024 by Iam Curry MD at OR [facility] Right: Chest CR BARD : PERIPHERAL VASCULAR [id number] 05/17/2025 [id number] / / [id number] documented as of this encounter Procedures Procedure Name Priority Date/Time Associated Diagnosis Comments DIFFERENTIAL, AUTOMATED STAT 10/20/2024 8:46 AM EDT Malignant neoplasm of upper-outer quadrant of left breast in female, estrogen receptor negative (HCC) COMPREHENSIVE METABOLIC PANEL STAT 10/20/2024 8:46 AM EDT Malignant neoplasm of upper-outer quadrant of left breast in female, estrogen receptor negative (HCC) CBC STAT 10/20/2024 8:46 AM EDT Malignant neoplasm of upper-outer quadrant of left breast in female, estrogen receptor negative (HCC) CBC STAT 10/20/2024 8:46 AM EDT Malignant neoplasm of upper-outer quadrant of left breast in female, estrogen receptor negative (HCC) HCG QUALITATIVE, URINE STAT 8:46 AM EDT Malignant neoplasm of upper-outer quadrant of left breast in female, estrogen receptor negative (HCC) documented in this encounter Results * (ABNORMAL) DIFFERENTIAL, AUTOMATED (10/20/2024 8:46 AM EDT) WBC 3.93(L) 4.00 - 10.80 K/uL 10/20/2024 8:56 AM EDT [facility] 56-02 Neutrophils % 17.5(L) 40.0 - 75.0 % 10/20/2024 8:56 AM EDT [facility] 56-02 Lymphocytes % 60.6(H) 18.0 - 42.0 % 10/20/2024 8:56 AM EDT [facility] Monocytes % 14.5(H) 1.0 - 11.0 % 10/20/2024 8:56 AM EDT [facility] Eosinophils % 7.1(H) 0.0 - 6.0 % 10/20/2024 8:56 AM EDT [facility] Basophils % 0.3 0.0 - 2.0 % 10/20/2024 8:56 AM EDT [facility] Absolute Neutrophils 0.69(L) 1.80 - 7.70 K/uL 10/20/2024 8:56 AM EDT [facility] Absolute Lymphocytes 2.38 1.00 - 4.80 K/ul 10/20/2024 8:56 AM EDT [facility] Absolute Monocytes 0.57 0.00 - 1.10 K/uL 10/20/2024 8:56 AM EDT [facility] Absolute Eosinophils 0.28 0.00 - 0.70 K/uL 10/20/2024 8:56 AM EDT [facility] Absolute Basophils 0.01 0.00 - 0.20 K/uL 10/20/2024 8:56 AM EDT [facility] Blood Venous blood specimen / Unknown Central Line / Unknown 10/20/2024 8:46 AM EDT 10/20/2024 8:50 AM EDT us Kanu Maravilla MD LAB BLOOD ORDERABLES Final Res ult [facility] [address] [place] [address] * (ABNORMAL) CBC (10/20/2024 8:46 AM EDT) WBC 3.93(L) 4.00 - 10.80 K/uL 10/20/2024 8:56 AM EDT [facility] RBC 3.10 3.85 - 5.15 M/uL 10/20/2024 8:56 AM EDT [facility] HGB 10.8(L) 12.0 - 15.3 g/dL 10/20/2024 8:56 AM EDT [facility] 56 HCT 31.6(L) 36.0 - 45.2 % 10/20/2024 8:56 AM EDT [facility] 56 MCV 101.9 81.5 - 97.5 fL 10/20/2024 8:56 AM EDT [facility] 56 MCH 34.8 27.0 - 34.0 pg 10/20/2024 8:56 AM EDT [facility] 56 MCHC 34.2 32.0 - 36.0 g/dL 10/20/2024 8:56 AM EDT [facility] 56 RDW 13.5 11.5 - 15.5 % 10/20/2024 8:56 AM EDT [facility] 56 PLT 165 140 - 400 K/uL 10/20/2024 8:56 AM EDT [facility] MPV 9.4 6.6 - 11.1 fL 10/20/2024 8:56 AM EDT [facility] Blood Venous blood specimen / Unknown Central Line / Unknown 10/20/2024 8:46 AM EDT 10/20/2024 8:50 AM EDT us Kanu Maravilla MD LAB BLOOD ORDERABLES Final Res ult [facility] [address] [place] [address] * HCG QUALITATIVE, URINE (10/20/2024 8:46 AM EDT) HCG Qualitative, Urine Negative Negative 10/20/2024 9:08 AM EDT [facility] Urine Urine specimen obtained by clean catch procedure / Unknown Non-blood Collection / Unknown 10/20/2024 8:46 AM EDT 10/20/2024 9:00 AM EDT us Kanu Maravilla MD LAB URINE ORDERABLES Final Res ult [facility] [address] [place] [address] * (ABNORMAL) COMPREHENSIVE METABOLIC PANEL (10/20/2024 8:46 AM EDT) BUN 11 6 - 20 mg/dL 10/20/2024 9:11 AM EDT [facility] CREATININE 0.8 0.5 - 1.0 mg/dL 10/20/2024 9:11 AM EDT [facility] EGFR >90 >=60 mL/min 10/20/2024 9:11 AM EDT [facility] Comment:eGFR is calculated b ased on the CKD-EPI 2020 equation. SODIUM 141 135 - 146 mmol/L 10/20/2024 9:11 AM T [facility] POTASSIUM 4.0 3.5 - 5.1 mmol/L 10/20/2024 9:11 AM T [facility] CHLORIDE 108(H) 98 - 107 mmol/L 10/20/2024 9:11 AM EDT [facility] CO2 22 22 - 32 mmol/L 10/20/2024 9:11 AM T [facility] ANION GAP 11 7 - 15 mmol/L 10/20/2024 9:11 AM T [facility] GLUCOSE 74 70 - 120 mg/dL 10/20/2024 9:11 AM T [facility] Albumin 4.4 3.8 - 5.0 g/dL 10/20/2024 9:11 AM T [facility] AST 22 10 - 35 U/L 10/20/2024 9:11 AM T [facility] Alkaline Phosphatase 54 35 - 130 U/L 10/20/2024 9:11 AM T [facility] Bilirubin, Total 0.6 <=1.2 mg/dL 10/20/2024 9:11 AM T [facility] CALCIUM 9.5 8.4 - 10.2 mg/dL 10/20/2024 9:11 AM T [facility] Protein 6.6 6.0 - 8.3 g/dL 10/20/2024 9:11 AM EDT [facility] 56 ALT 28 10 - 35 U/L 10/20/2024 9:11 AM EDT [facility] 56 Blood Venous blood specimen / Unknown Central Line / Unknown 10/20/2024 8:46 AM EDT 10/20/2024 8:50 AM EDT us Kanu Maravilla MD LAB BLOOD ORDERABLES Final Res ult [facility] [address] [place] [address] documented in this encounter Visit Diagnoses Diagnosis Triple negative breast cancer (HCC)- Primary Malignant neoplasm of upper-outer quadrant of left breast in female, estrogen receptor negative (HCC) Encounter for central line care Fitting and adjustment of vascular catheter documented in this encounter Administered Medications Inactive Administered Medications - up to 3 most recent administrations Medication Order MAR Action Action Date Dose Rate Site sodium chloride 0.9 % flush/inj 20 mL 20 mL, IV Push, PRN IV Flush and Lock, Starting on Sun10/20/24 at 0848, Until Sun10/20/24 at 0906, Do not flush if lock, PICC, or central line not in place; IV infusing or unable to flush. For midlines and central lines. For IV Flush and Lock, IVAD is flushed with a total of 20 mL Normal Saline, 10 mL of Normal Saline Flush with 10 mL of Normal Saline acting as IV LOCK.Indications:Triple negative breast cancer (HCC) Given 10/20/2024 8:49 AM EDT 20 mL documented in this encounter Care Teams Gas Producer Relationship Specialty Start Date End Date Malinda Owens CRNP 132 [facility] [place] [address] PCP - General Nurse Practitioner 09/20/23 documented as of this encounter
--- OUTSIDE RECORDS SUMMARY | 2024-11-01 03:38 | External Medical Summary | Summary of Care ---
Author Name Unknown Organization [facility] Address [address] [place] [address] Phone [phone] Care Team Providers Care Salesperson Men'S Hats Name Role Phone OwensMalinda AD Primary Care Provider Encounter Details Date Type Department Care Team (Late st Contact Info) Description 10/20/2024 Orders Only Hematology/Oncology [facility] [place] [address] [facility] [place] [address] Mandeep Luna MD [address] [facility] [place] [address] Triple negative breast cancer (HCC)* Allergies No known active allergiesdocumented as of this encounter (statuses as of 10/20/2024) Medications 29-1 MG Oral Tablet Chewable Take [...] complete. Enrolled in Current Health. Plans to roller picker meter from pharmacy today. Instructions [...] and class I obesity. Per review of WEATHER TEACHER documentation of 09/25/23, blood glucose values [...] Recommend nutrition consult with RDN (Registered Dietitian Solar System Designer). Lifestyle changes are also indicated including [...] and folate levels and referral to a salesforce developer. If hemoglobin levels are below 8 g/dl, we recommend Maternal Medicine ultrasound for growth every 4 weeks after 24 weeks. Consider a blood transfusion if hemoglobin levels fall below 6 g/dL. ([employer] Obstetricians and Automatic Packer Operator Practice Bulletin Number 95, December,). Consider [...] money to get more. 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 [address] [facility] [place] [address] 10/30/2024 9:00 AM EDT Office Visit Hematology/Oncology [facility] [place] [address] [facility] [place] [address] Kanu Maravilla MD [address] [facility] [place] [address] 11/06/2024 10:40 AM EDT Office Visit Family Practice [facility] [address] [place] [address] Malinda Owens CRNP [address] [place] [address] 04/27/2025 2:40 PM EST Telemedicine Endocrinology [address] [place] [phone] Orlin Miranda MD [address] [place] [address] Health Maintenance Due Date Last Done [...] this encounter Medical Devices Implanted Type Area Call Taker Device Identifier Shelf Expiration Date Model / Serial / Lot Stent Kev 4fr 11cm - [id number] Implanted:Qty : 1 on 02/08/2024 by Jeffrey Kerr MD at OR [facility] [employer] [id number] 08/16/2028 [id number] / / [id number] Description:https://www.doct ordoctor.biz/search/Detail.aspx?result=0 [facility] 09/04/2024 Non metallic Port Implant W8f Poly Cath - [id number] Implanted:Qty : 1 on 05/02/2024 by Iam Curry MD at OR [facility] Right: Chest CR BARD : PERIPHERAL VASCULAR [id number] 05/17/2025 [id number] / / [id number] documented as of this encounter Visit Diagnoses Diagnosis Triple negative breast cancer (HCC)- Primary documented in this encounter Care Teams Salesperson Men'S Hats Relationship Specialty Start Date End Date Malinda Owens CRNP [address] [place] [address] PCP - General Nurse Practitioner 09/20/23 documented as of this encounter
--- OUTSIDE RECORDS SUMMARY | 2024-11-01 03:38 | External Medical Summary ---
Author Name Unknown Address Unknown Organization K09:[facility] [place] [address] Laboratory Report Ordering Provider Test Date Status JASMINE JANSEN 10/20/2024 08:46:57 Final Observation Date Value Abnormality Reference (Units ) Status WBC, Total 10/20/2024 08:46:57 3.93 Below low normal 4. 00-10.80 (K/uL) Final RBC 10/20/2024 08:46:57 3.10 3.85-5.15 (M/uL) Final Hemoglobin 10/20/2024 08:46:57 10.8 Below low normal 12 .0-15.3 (g/dL) Final HCT 10/20/2024 08:46:57 31.6 Below low normal 36. 0-45.2 (%) Final MCV 10/20/2024 08:46:57 101.9 81.5-97.5 (fL) Final MCH 10/20/2024 08:46:57 34.8 27.0-34.0 (pg) Final MCHC 10/20/2024 08:46:57 34.2 32.0-36.0 (g/dL) Final RDW 10/20/2024 08:46:57 13.5 11.5-15.5 (%) Final Platelets 10/20/2024 08:46:57 165 140-400 (K /uL) Final MPV 10/20/2024 08:46:57 9.4 6.6-11.1 ( fL) Final Performing Location [facility] [address]
--- OUTSIDE RECORDS SUMMARY | 2024-11-01 03:38 | External Medical Summary ---
Author Name Unknown Address Unknown Organization K09:[facility] [address] [place] [address] Laboratory Report Ordering Provider Test Date Status JASMINE JANSEN 10/20/2024 08:46:57 Final Observation Date Value Abnormality Reference (Units ) Status BUN 10/20/2024 08:46:57 11 6-20 (mg/dL) Final Creatinine 10/20/2024 08:46:57 0.8 0.5-1.0 (mg/dL) Final Glomerular filtration rate/1.73 sq M.predicted [Volume Rate/Area] in Serum, Plasma or Blood by Creatinine-based formula (CKD-EPI) 10/20/2024 08:46:57 >90 >=60 (mL/min) Final eGFR is calculated based on the CKD-EPI 2020 equation. Sodium 10/20/2024 08:46:57 141 135-146 (m mol/L) Final Potassium 10/20/2024 08:46:57 4.0 3.5-5.1 (m mol/L) Final Cl 10/20/2024 08:46:57 108 Above high normal 98 -107 (mmol/L) Final CO2 10/20/2024 08:46:57 22 22-32 (mmo l/L) Final Anion gap 10/20/2024 08:46:57 11 7-15 (mmol /L) Final Glucose 10/20/2024 08:46:57 74 70-120 (mg /dL) Final Albumin 10/20/2024 08:46:57 4.4 3.8-5.0 (g /dL) Final AST (Aspartate aminotransferase) 10/20/2024 08:46:57 22 10-35 (U/L) Fin al Alk Phos 10/20/2024 08:46:57 54 35-130 (U/ L) Final Bilirubin, Total 10/20/2024 08:46:57 0.6 <=1 .2 (mg/dL) Final Calcium 10/20/2024 08:46:57 9.5 8.4-10.2 ( mg/dL) Final Protein 10/20/2024 08:46:57 6.6 6.0-8.3 (g /dL) Final ALT (Alanine aminotransferase) 10/20/2024 08:46:57 28 10-35 (U/L) Clifton [email or web address] Performing Location [facility] [address] [place] [address]
--- OUTSIDE RECORDS SUMMARY | 2024-11-01 03:38 | External Medical Summary | Summary of Care ---
Author Name Unknown Organization [facility] Address [address] [facility] [place] [address] Phone [phone] Care Team Providers Care Collection Systems Technician Name Role Phone Malinda Owens Primary Care Provider [phone] Reason for Visit * Reason Comments Procedure Labs from port Encounter Details Date Type Department Care Team (Late st Contact Info) Description 10/16/2024 8:30 AM EDT Nurse Only Hematology/Oncology Treatment, [address] [address] [place], Chair 5 Hem Onc [address] [address] Procedure (Labs from port) Allergies No known active allergiesdocumented as of this encounter (statuses as of 10/16/2024) Medications 19 29-1 MG Oral Tablet Chewable [...] 30 Tablet 5 09/11/19 25 Active Hydrocortisone 10 MG Oral Tablet (Cortef)Indication s:Malignant neoplasm of upper-outer quadrant of left breast in female, estrogen receptor negative (HCC),Encounter for antineoplastic chemotherapy Take 1 tablet in the early afternoon 30 Tablet 5 09/11/19 25 Active Hydrocortisone 20 MG Oral Tablet (Cortef)Indication s:Malignant neoplasm of [...] before bedtime. 60 Tablet 10/07/19 25 Active documented as of this encounter (statuses as of 10/16/2024) Active Problems Problem Noted Date Diagnosed Date [...] as of this encounter (statuses as of 10/16/2024) Resolved Problems Problem Noted Date Diagnosed Date [...] and class I obesity. Per review of GOAT HERDER documentation of 09/25/23, blood glucose values have [...] Recommend nutrition consult with RDN (Registered Dietitian Aoc Plans Intelligence Officer Chief). Lifestyle changes are also indicated including optimizing [...] and folate levels and referral to a author's agent. If hemoglobin levels are below 8 g/dl, we recommend Maternal Medicine ultrasound for growth every 4 weeks after 24 weeks. Consider a blood transfusion if hemoglobin levels fall below 6 g/dL. ([employer] Obstetricians and Manager Global Practice Bulletin Number 95, December,). Consider Venofer transfusions if patient labs supportive of iron deficiency anemia with dosing of 300 mg IV weekly x 3 weeks Abnormal glucose tolerance i n mother complicating 04/19/2023 08/31/2023 Overview (04/19/2023): Failed early glucola. 3hr GTT ordered Encounter for supervision of other normal , unspecified trimester 04/03/2023 025 documented as of this encounter (statuses as of 10/16/2024) Immunizations Name Administration Dates Next Due DTP [...] money to get more. Never true 03/26/2024 Gloucester Depression Scale Answer Date Recorded [place] Depression Scale Total 6 12/11/2023 The thought [...] No 03/26/2024 Does the household have a [facility] source of income? 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 Port accessed with 19G, 3/4". Port flushed with 10 ml NSS with positive blood return noted. Labs drawn via port per protocol. Urine hcg done as well while patient in tx room. Port flushed with 10 ml NSS. Port locked with an additional 10 ml NSS. Transparent dressing applied since patient going to see AD Elliott before coming back to tx room for treatment. Alcohol cap applied to end. Patient going to see AD at this time, denies further needs. documented in this encounter Plan of Treatment Upcoming Encounters Date Type Department Care Team (Late st Contact Info) Description 10/20/2024 8:00 AM EDT Nurse Only Hematology/Oncology [address] [place] [phone] [place], Chair 1 Hem Onc [address] [place] [address] 10/20/2024 8:45 AM EDT Hem/Onc Treatment Hematology/Oncology [address], [address] [address] [place], Chair 7 Hem Onc [address] [place] [address] 10/30/2024 9:00 AM EDT Office Visit Hematology/Oncology [facility] [address] [facility] [place] [phone] Kanu Maravilla MD [address] [facility] [place] [address] 11/06/2024 10:40 AM EDT Office Visit Family [facility] [address] [place] [address] Malinda Owens CRNP [address] [place] [address] 04/27/2025 2:40 PM EST Telemedicine Endocrinology [address] [place] [phone] Orlin Miranda MD [address] [place], [place] [address] Pending Results Name Type Priority Associated Diagnoses Date /Time TSH WITH FREE T4 IF INDICATED Lab STAT Malignant neoplasm of upper-outer quadrant of left breast in female, estrogen receptor negative (HCC) 10/16/2024 8:57 AM EDT Health Maintenance Due Date Last [...] encounter Medical Devices Implanted Type Area Supervisor Cigar Processing Device Identifier Shelf Expiration Date Model / Serial / Lot Therese Angulo 4fr 11cm - [id number] Implanted:Qty : 1 on 02/08/2024 by Jeffrey Kerr MD at OR [facility] [employer] [facility] [id number] 08/16/2028 [id number] / / [id number] Description:https://www.doct ordoctor.biz/search/Detail.aspx?result=0 J[facility] 09/04/2024 Non metallic Port Implant W8f Poly Cath - [id number] Implanted:Qty : 1 on 05/02/2024 by Iam Curry MD at OR [facility] Right: Chest CR BARD : PERIPHERAL VASCULAR [id number] 05/17/2025 [id number] / / [id number] documented as of this encounter Procedures Procedure Name Priority Date/Time Associated Diagnosis Comments DIFFERENTIAL, AUTOMATED STAT 10/16/2024 8:57 AM EDT Malignant neoplasm of upper-outer quadrant of left breast in female, estrogen receptor negative (HCC) COMPREHENSIVE METABOLIC PANEL STAT 10/16/2024 8:57 AM EDT Malignant neoplasm of upper-outer quadrant of left breast in female, estrogen receptor negative (HCC) CBC STAT 10/16/2024 8:57 AM EDT Malignant neoplasm of upper-outer quadrant of left breast in female, estrogen receptor negative (HCC) CBC STAT 10/16/2024 8:57 AM EDT Malignant neoplasm of upper-outer quadrant of left breast in female, estrogen receptor negative (HCC) HCG QUALITATIVE, URINE STAT 8:57 AM EDT Malignant neoplasm of upper-outer quadrant of left breast in female, estrogen receptor negative (HCC) documented in this encounter Results * (ABNORMAL) DIFFERENTIAL, AUTOMATED (10/16/2024 8:57 AM EDT) WBC 3.72(L) 4.00 - 10.80 K/uL 10/16/2024 9:08 AM EDT [facility] 56-02 Neutrophils % 11.1(L) 40.0 - 75.0 % 10/16/2024 9:08 AM EDT [facility] 56-02 Lymphocytes % 65.3(H) 18.0 - 42.0 % 10/16/2024 9:08 AM EDT [facility] 56-02 Monocytes % 21.2(H) 1.0 - 11.0 % 10/16/2024 9:08 AM EDT [facility] 56 Eosinophils % 1.9 0.0 - 6.0 % 10/16/2024 9:08 AM EDT [facility] 56 Basophils % 0.5 0.0 - 2.0 % 10/16/2024 9:08 AM EDT [facility] 56 Absolute Neutrophils 0.41(L) 1.80 - 7.70 K/uL 10/16/2024 9:08 AM EDT [facility] Absolute Lymphocytes 2.43 1.00 - 4.80 K/ul 10/16/2024 9:08 AM EDT [facility] Absolute Monocytes 0.79 0.00 - 1.10 K/uL 10/16/2024 9:08 AM EDT [facility] Absolute Eosinophils 0.07 0.00 - 0.70 K/uL 10/16/2024 9:08 AM EDT [facility] Absolute Basophils 0.02 0.00 - 0.20 K/uL 10/16/2024 9:08 AM EDT [facility] Blood Venous blood specimen / Unknown Central Line / Unknown 10/16/2024 8:57 AM EDT 10/16/2024 9:01 AM EDT us Kanu Maravilla MD LAB BLOOD ORDERABLES Final Res ult [facility] [address] [place] [address] * (ABNORMAL) CBC (10/16/2024 8:57 AM EDT) WBC 3.72(L) 4.00 - 10.80 K/uL 10/16/2024 9:08 AM EDT [facility] RBC 3.26 3.85 - 5.15 M/uL 10/16/2024 9:08 AM EDT [facility] HGB 10.7(L) 12.0 - 15.3 g/dL 10/16/2024 9:08 AM EDT [facility] HCT 32.9(L) 36.0 - 45.2 % 10/16/2024 9:08 AM EDT [facility] 56- MCV 100.9 81.5 - 97.5 fL 10/16/2024 9:08 AM EDT [facility] 56- MCH 32.8 27.0 - 34.0 pg 10/16/2024 9:08 AM EDT [facility] 56- MCHC 32.5 32.0 - 36.0 g/dL 10/16/2024 9:08 AM EDT [facility] 56- RDW 14.3 11.5 - 15.5 % 10/16/2024 9:08 AM EDT [facility] 56- PLT 215 140 - 400 K/uL 10/16/2024 9:08 AM EDT [facility] 56- MPV 9.1 6.6 - 11.1 fL 10/16/2024 9:08 AM EDT [facility] 56 Blood Venous blood specimen / Unknown Central Line / Unknown 10/16/2024 8:57 AM EDT 10/16/2024 9:01 AM EDT us Kanu Maravilla MD LAB BLOOD ORDERABLES Final Res ult [facility] [address] [place] [address] * HCG QUALITATIVE, URINE (10/16/2024 8:57 AM EDT) HCG Qualitative, Urine Negative Negative 10/16/2024 9:10 AM EDT [facility] 56 Urine Urine specimen obtained by clean catch procedure / Unknown Non-blood Collection / Unknown 10/16/2024 8:57 AM EDT 10/16/2024 9:03 AM EDT us Kanu Maravilla MD LAB URINE ORDERABLES Final Res ult [facility] 56 [address] [place] [address] * (ABNORMAL) COMPREHENSIVE METABOLIC PANEL (10/16/2024 8:57 AM EDT) [facility] BUN 7 6 - 20 mg/dL 10/16/2024 9:26 AM [facility] 56 CREATININE 0.8 0.5 - 1.0 mg/dL 10/16/2024 9:26 AM [facility] 56 EGFR >90 >=60 mL/min 10/16/2024 9:26 AM [facility] 56- Comment:eGFR is calculated b ased on the CKD-EPI 2020 equation. SODIUM 140 135 - 146 mmol/L 10/16/2024 9:26 AM [facility] 56 POTASSIUM 3.8 3.5 - 5.1 mmol/L 10/16/2024 9:26 AM [facility] 56 CHLORIDE 106 98 - 107 mmol/L 10/16/2024 9:26 AM [facility] 56 CO2 22 22 - 32 mmol/L 10/16/2024 9:26 AM [facility] 56 ANION GAP 12 7 - 15 mmol/L 10/16/2024 9:[address] GLUCOSE 79 70 - 120 mg/dL 10/16/2024 9:26 AM [facility] 56 Albumin 4.5 3.8 - 5.0 g/dL 10/16/2024 9:26 AM [facility] 56 AST 36(H) 10 - 35 U/L 10/16/2024 9:26 AM [facility] 56 Alkaline Phosphatase 60 35 - 130 U/L 10/16/2024 9:26 AM [facility] 56 Bilirubin, Total 0.6 <=1.2 mg/dL 10/16/2024 9:26 AM [facility] 56 CALCIUM 9.6 8.4 - 10.2 mg/dL 10/16/2024 9:26 AM [facility] 56- Protein 6.7 6.0 - 8.3 g/dL 10/16/2024 9:26 AM [facility] 56 ALT 48(H) 10 - 35 U/L 10/16/2024 9:26 AM [facility] 56 Blood Venous blood specimen / Unknown Central Line / Unknown 10/16/2024 8:57 AM EDT 10/16/2024 9:01 AM EDT Kanu Maravilla MD LAB BLOOD ORDERABLES Final Res ult [facility] 56-[address] [place] [address] documented in this encounter Visit Diagnoses Diagnosis Triple negative breast cancer (HCC)- Primary Malignant neoplasm of upper-outer quadrant of left breast in female, estrogen receptor negative (HCC) Encounter for central line care Fitting and adjustment of vascular catheter documented in this encounter Administered Medications Active Administered Medications - up to 3 most recent administrations Medication Order MAR Action Action Date Dose Rate Site sodium chloride 0.9 % flush/inj 10 mL 10 mL, IV Push, PRN line flush, Starting on Bibi 10/16/24 at 0849, Until Discontinued, Do not flush if lock, PICC, or central line not in place; IV infusing or unable to flush. For midlines and central lines.Indications:Triple negative breast cancer (HCC) sodium chloride 0.9 % flush/inj 20 mL 20 mL, IV Push, PRN IV Flush and Lock, Starting on Bibi 10/16/24 at 0849, Until Discontinued, Do not flush if lock, PICC, or central line not in place; IV infusing or unable to flush. For midlines and central lines. For IV Flush and Lock, IVAD is flushed with a total of 20 mL Normal Saline, 10 mL of Normal Saline Flush with 10 mL of Normal Saline acting as IV LOCK.Indications:Triple negative breast cancer (HCC) Given 10/16/2024 10:21 AM EDT 20 mL documented in this encounter Care Teams Collection Systems Technician Relationship Specialty Start Date End Date Malinda Owens CRNP [address] [facility] [place] [address] PCP - General Nurse Practitioner 09/20/23 documented as of this encounter
--- OUTSIDE RECORDS SUMMARY | 2024-11-01 03:38 | External Medical Summary ---
Author Name Unknown Address Unknown Organization K09:[facility] [place] [address] Laboratory Report Ordering Provider Test Date Status JASMINE JANSEN 10/20/2024 08:46:57 Final Observation Date Value Abnormality Reference (Units ) Status Screen, Urine 10/20/2024 08:46:57 Negative Negative Final Performing Location [facility] [place] [place] [address]
--- OUTSIDE RECORDS SUMMARY | 2024-11-01 03:38 | External Medical Summary | Summary of Care ---
Author Name Unknown Organization [facility] Address [address] [place] [facility] [place] [place] [address] Phone [phone] Care Team Providers Care Associate Professor Of Church Music Name Role Phone Malinda Owens Primary Care Provider [phone] Reason for Visit * Reason Onset Date Comments Advice 10/16/2024 Encounter Details Date Type Department Care Team (Late st Contact Info) Description 10/16/2024 Telephone Hematology/Oncology [facility] [place] [address] [facility] [address] Kanu Maravilla MD [address] [facility] [place] [address] Advice Allergies No known active allergiesdocumented as [...] morning. 30 Capsule 5 10/11/19 25 Active documented as of this encounter [...] and class I obesity. Per review of COMPUTER SOFTWARE ENGINEER documentation of 09/25/23, blood glucose [...] Recommend nutrition consult with RDN (Registered Dietitian Drug Purchaser). Lifestyle changes are also indicated including optimizing [...] and folate levels and referral to a commercial banker. If hemoglobin levels are below 8 g/dl, we recommend Maternal Medicine ultrasound for growth every 4 weeks after 24 weeks. Consider a blood transfusion if hemoglobin levels fall below 6 g/dL. ([employer] Obstetricians and Dumper Mold Cleaner Practice Bulletin Number 95, December,). Consider [...] money to get more. Never true 03/26/2024 [place] Depression Scale Answer Date Recorded [place] Depression Scale Total 6 12/11/2023 The thought [...] encounter Miscellaneous Notes * Addendum Note - Mason Garcia CRNP - 10/16/2024 10:05 AM EDTAddended by: MASON GARCIA on: 10/16/2024 10:05 AM Modules accepted: Orders * Telephone Encounter - Mason Garcia CRNP - 10/16/2024 10:05 AM EDT Alteration placed. * Telephone Encounter - Lisa Casillas OSA - 10/16/2024 10:01 AM EDT Pt is scheduled and is aware * Telephone Encounter - Laron Emerson RN - 10/16/2024 9:51 AM EDT Mason- please place alteration "Stop Keytruda for all future cycles" Scheduling- Please reschedule patients lab/treatments for Friday 10/20. - Labs " CBCD,CMP,TSH/T4, HCG" - 3HR treatment "C7,D1 "Cytoxan/Doxorubicin" documented in this encounter Plan of Treatment Upcoming Encounters Date Type Department Care Team (Late st Contact Info) Description 10/20/2024 8:00 AM EDT Nurse Only Hematology/Oncology Treatment, [place] [address] [place] [address] [place], Chair 1 Hem Onc [facility] [address] 10/20/2024 8:45 AM EDT Hem/Onc Treatment Hematology/Oncology Treatment, [place] [address] [place] [address] [place], Chair 7 Hem Onc [facility] [address] [facility] [place], [place] [address] 10/30/2024 9:00 AM EDT Office Visit Hematology/Oncology [facility] [place] [address] [place] [phone] Kanu Maravilla MD 200 [facility] [place] [address] 11/06/2024 10:40 AM EDT Office Visit Family Practice [facility] [address] [facility] [address] Malinda Owens CRNP [address] [facility] [address] 04/27/2025 2:40 PM EST Telemedicine Endocrinology [address] [place] [phone] Orlin Miranda MD [address] [place] [address] Health Maintenance Due Date Last [...] this encounter Medical Devices Implanted Type Area Riprap Placer Device Identifier Shelf Expiration Date Model / Serial / Lot Stent Angulo 4fr 11cm - [id number] Implanted:Qty : 1 on 02/08/2024 by Jeffrey Kerr MD at OR [facility] [employer] [id number] 08/16/2028 [id number] / / [id number] Description:https://www.doct ordoctor.biz/search/Detail.aspx?result=0 JLS 09/04/2024 Non metallic Port Implant W8f Poly Cath - [id number] Implanted:Qty : 1 on 05/02/2024 by Iam Curry MD at OR [facility] Right: Chest CR BARD : PERIPHERAL VASCULAR [id number] 05/17/2025 [id number] / / [id number] documented as of this encounter Visit Diagnoses Diagnosis 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
--- OUTSIDE RECORDS SUMMARY | 2024-11-01 03:38 | External Medical Summary | Summary of Care ---
Author Name Unknown Organization [facility] Address [address] [place] [facility] [place] [address] Phone [phone] Care Team Providers Care Lapel Stitcher Name Role Phone OwensMalinda AD Primary Care Provider [phone] Encounter Details Date Type Department Care Team (Late st Contact Info) Description 10/20/2024 Orders Only Hematology/Oncology [facility] [place] [address] [place] [phone] Mandeep Luna MD [address] [facility] [place] [address] Allergies No known active allergiesdocumented as of [...] and class I obesity. Per review of SOLUTION COORDINATOR documentation of 09/25/23, blood glucose values [...] Recommend nutrition consult with RDN (Registered Dietitian Potato Chip Processing Supervisor). Lifestyle changes are also indicated including [...] and folate levels and referral to a tile mechanic helper. If hemoglobin levels are below 8 g/dl, we recommend Maternal Medicine ultrasound for growth every 4 weeks after 24 weeks. Consider a blood transfusion if hemoglobin levels fall below 6 g/dL. ([employer] Ceo And President Practice Bulletin Number 95, December,). Consider [...] money to get more. Never true 03/26/2024 [place] Depression Scale Answer Date Recorded [place] Depression Scale Total 6 12/11/2023 The thought [...] No 03/26/2024 Does the household have a [facility] source of income? 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 file Not on file Not on file documented as of this encounter Plan of Treatment Upcoming Encounters Date Type Department Care Team (Late st Contact Info) Description 10/23/2024 8:15 AM EDT Hem/Onc Treatment Hematology/Oncology Treatment, [place] [address] [place], [place] [phone] L[place], Chair 9 Hem Onc [facility] [address] [facility] [place] [address] 10/30/2024 9:00 AM EDT Office Visit Hematology/Oncology [facility] [place] [address] [place] [phone] Kanu Maravilla MD [address] [place] [address] 11/06/2024 10:40 AM EDT Office Visit Family [facility] [address] [facility] [address] Malinda Owens CRNP [address] [facility] [address] 04/27/2025 2:40 PM EST Telemedicine Endocrinology [address] [place] [phone] Orlin Miranda MD [address] [place] [address] Health Maintenance Due Date Last Done Comments Depression Screening 2006 HPV (Gardasil) Vaccine (3 - 3-dose series) 02/05/2013 11/13/2012, 03/21/2012 Lipid Panel 2014 COVID-19 Vaccine ( season) 2024 HPV/Co-Test 2024 Cervical Cancer Screening 01/29/2026 Pap Smear 01/29/2026 01/29/2023, 0611/2019, 07/17/2018, Additional history exists DTap/Tdap Vaccines (9 [...] this encounter Medical Devices Implanted Type Area Publications Designer Device Identifier Shelf Expiration Date Model / Serial / Lot Stent Kev 4fr 11cm - [id number] Implanted:Qty : 1 on 02/08/2024 by Jeffrey Kerr MD at OR [facility] [employer] [id number] 08/16/2028 [id number] / / [id number] Description:https://www.doct ordoctor.biz/search/Detail.aspx?result=0 JLS 09/04/2024 Non metallic Port Implant W8f Poly Cath - [id number] Implanted:Qty : 1 on 05/02/2024 by Iam Curry MD at OR [facility] Right: Chest CR BARD : PERIPHERAL VASCULAR [id number] 05/17/2025 [id number] / / [id number] documented as of this encounter Care Teams Lapel Stitcher Relationship Specialty Start Date End Date Malinda Owens CRNP [address] [place] [address] PCP - General Nurse Practitioner 09/20/23 documented as of this encounter
--- OUTSIDE RECORDS SUMMARY | 2024-11-01 03:38 | External Medical Summary | Summary of Care ---
Author Name Unknown Organization [facility] Address [address] [place] [address] Phone [phone] Care Team Providers Care Nurse Orthopedic Name Role Phone Malinda Owens Primary Care Provider [phone] Encounter Details Date Type Department Care Team (Latest Contact Info) Description 10/20/2024 8:45 AM EDT Hem/Onc Treatment Hematology/Oncology Treatment, [address] [phone] [place], Chair 7 Hem On[address] [address] Triple negative breast cancer (HCC)*; Dehydration; Malignant neoplasm of upper-outer quadrant of left [...] complete. Enrolled in Current Health. Plans to pepper picker meter from pharmacy today. Instructions provided [...] and class I obesity. Per review of FINE GRADE BULLDOZER OPERATOR documentation of 09/25/23, blood glucose values [...] Recommend nutrition consult with RDN (Registered Dietitian Hydroelectric Station Chief). Lifestyle changes are also indicated including [...] and folate levels and referral to a doper operator. If hemoglobin levels are below 8 g/dl, we recommend Maternal Medicine ultrasound for growth every 4 weeks after 24 weeks. Consider a blood transfusion if hemoglobin levels fall below 6 g/dL. ([employer] and Lighting Equipment Operator Practice Bulletin Number 95, December,). Consider [...] money to get more. 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 Pt reports she is feeling "a little better but ready to go." BP manually rechecked - 92/54. Patient took steroids while in treatment room. Overall feeling well enough to head back home. Mother is still here and is driving patient back home. Patient will return on per preference for labs and hopefully next cycle of chemo if ANC isimproved. Goals: Patient will remain free from injury. [...] further needs. * Justine Cool RN - 10/20/2024 10:16 AM EDT 1L NSS started. Patient would like to return on to try and get chemo before her daughters birthday the following week. Patient was educated to now take her AM dose of steroids - she was told not to take steroids on thedays she comes for chemo because she would receive steroids here. Patient did not take AM dose of steroids today. Since tx is held today, will take her 15 mg hydrocortisone now. Patient was asked if she gets lightheaded at home when taking 1 mg Ativan along with her steroids in AM - she denies lightheadedness at home when taking both meds. Patient educated she could try taking 0.5 mg Ativan when coming here for treatment if she is not taking her AM dose of steroids to see if this could possibly help with BP slightly. Pt communicated understanding and may try doing this if able. Patient is comfortable and denies further needs at this time. Mother remains with patient. Patient instructed on use of heat and [...] safe environment. * Justine Cool RN - 10/20/2024 9:36 AM EDT Patient reported after having labs augie form port, she became lightheaded and started seeing "a bunch of lights." She went to do her urine hcg test and is now back in chair, which is when she reported feeling lightheaded. VS obtained - BP is low on machine 80/59. Manually obtained after and RN assess BP at 78/58. NSS started at 500 ml/hr with 500 ml flush bag via port. Call robledo within reach and mother at chair side with patient. 0934 - BP rechecked now that patient has been sitting and had IVF running - BP improved slightly to90/54. Pt reports she is feeling a bit better. Labs resulted and TT sent to Dr. Maravilla regarding hypotension and labs that have resulted including ANC of 0.69. Per Dr. Maravilla via TT - hold chemotherapy today d/t low ANC and will give 1 L NSS over 2 hours. documented in this encounter Plan of Treatment Upcoming Encounters Date Type Department Care Team (Late st Contact Info) Description 10/23/2024 8:15 AM EDT Hem/Onc Treatment Hematology/Oncology Treatment, [place] [address] [place] [phone] L[place], Chair [address] [facility] [address] [place] [address] 10/30/2024 9:00 AM EDT Office Visit Hematology/Oncology [facility] [address] [place] [phone] Kanu Maravilla MD [address] [place] [address] 11/06/2024 10:40 AM EDT Office Visit Family [facility] [address] [place] [address] Malinda Owens CRNP [address] [place] [address] 04/27/2025 2:40 PM EST Telemedicine Endocrinology Kyrie [...] this encounter Medical Devices Implanted Type Area Tools Administrator Device Identifier Shelf Expiration Date Model / Serial / Lot Stent Kev 4fr 11cm - [id number] Implanted:Qty : 1 on 02/08/2024 by Jeffrey Kerr MD at OR [facility] [employer] [id number] 08/16/2028 [id number] / / [id number] Description:https://www.doct ordoctor.biz/search/Detail.aspx?result=0 JLS 09/04/2024 Non metallic Port Implant W8f Poly Cath - [id number] Implanted:Qty : 1 on 05/02/2024 by Iam Curry MD at OR [facility] Right: Chest CR BARD : PERIPHERAL VASCULAR [id number] 05/17/2025 [id number] / / [id number] documented as of this encounter Visit Diagnoses Diagnosis Triple negative breast cancer (HCC)- Primary Dehydration Malignant neoplasm of upper-outer quadrant of left breast in female, estrogen receptor negative (HCC) documented in this encounter Administered Medications Inactive Administered Medications - up to 3 most recent administrations Medication Order MAR Action Action Date Dose Rate Site NSS infusion FOR HYDRATION Intravenous, at 500 mL/hr Administer over 2 Hours, ONCE, 1 dose, On 10/20/24 at 1115Indications:Dehydrati on,Malignant neoplasm of upper-outer quadrant of left breast in female, estrogen receptor negative (HCC) Start Infusion 10/20/2024 10:08 AM EDT 1,000 mL 500 mL/hr sodium chloride 0.9 % flush/inj 20 mL 20 mL, IV Push, PRN IV Flush and Lock, Starting on Sun10/20/24 at 1002, Until Sun10/20/24 at 1615, Do not flush if lock, PICC, or central line not in place; IV infusing or unable to flush. For midlines and central lines. For IV Flush and Lock, IVAD is flushed with a total of 20 mL Normal Saline, 10 mL of Normal Saline Flush with 10 mL of Normal Saline acting as IV LOCK.Indications:Triple negative breast cancer (HCC),Dehydration Given 10/20/2024 12:04 PM EDT 20 mL documented in this encounter Care Teams Nurse Orthopedic Relationship Specialty Start Date End Date Malinda Owens CRNP [address] [place] [address] PCP - General Nurse Practitioner 09/20/23 documented as of this encounter
--- OUTSIDE RECORDS SUMMARY | 2024-11-01 03:38 | External Medical Summary | Summary of Care ---
Author Name Unknown Organization [facility] Address [address] [facility] [facility] [place] [address] Phone [phone] Care Team Providers Care Countersinker Balance Screw Hole Name Role Phone Malinda Owens Primary Care Provider [phone] Reason for Visit * Reason Onset Date Comments Medication Refill 10/22/2024 Encounter Details Date Type Department Care Team (Late st Contact Info) Description 10/22/2024 Refill Hematology/Oncology [facility] [address] [facility] [place] [address] Gabby Zavala CRNP [address] [place] [address] Malignant neoplasm of upper-outer quadrant of left breast in female, estrogen receptor negative (HCC) Allergies No known active allergiesdocumented as of this encounter (statuses as of 10/22/2024) Medications 19 29-1 MG Oral Tablet Chewable [...] or Nausea. 180 Tablet 10/23/19 25 Active OLANZapine 5 MG Oral TabletIndications :Malignant neoplasm of upper-outer quadrant of left breast in female, estrogen receptor negative (HCC) Take 1-2 Tablets by mouth at bedtime as needed for Insomnia or Nausea. 60 Tablet 1 09/03/19 25 025 Disconti nued(Ref ill) documented as of this encounter (statuses as of 10/22/2024) Active Problems Problem Noted Date Diagnosed Date [...] as of this encounter (statuses as of 10/22/2024) Resolved Problems Problem Noted Date Diagnosed Date [...] complete. Enrolled in Current Health. Plans to steel pickler meter from pharmacy today. Instructions provided [...] and class I obesity. Per review of PROCUREMENT ENGINEER documentation of 09/25/23, blood glucose values [...] Recommend nutrition consult with RDN (Registered Dietitian Bellstand Attendant). Lifestyle changes are also indicated including [...] folate levels and referral to a fitness teacher. If hemoglobin levels are below 8 g/dl, we recommend Maternal Medicine ultrasound for growth every 4 weeks after 24 weeks. Consider a blood transfusion if hemoglobin levels fall below 6 g/dL. ([employer]st[employer] and Warehouse Administrator Practice Bulletin Number 95, December,). Consider Venofer transfusions if patient labs supportive of iron deficiency anemia with dosing of 300 mg IV weekly x 3 weeks Abnormal glucose tolerance i n mother complicating 04/19/2023 08/31/2023 Overview (04/19/2023): Failed early glucola. 3hr GTT ordered Encounter for supervision of other normal , unspecified trimester 04/03/2023 025 documented as of this encounter (statuses as of 10/22/2024) Immunizations Name Administration Dates Next Due DTP [...] money to get more. 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 Last filled 09/02/2024 Last seen: 10/16/2024 Script pended below for approval. documented in this encounter Plan of Treatment Upcoming Encounters Date Type Department Care Team (Late st Contact Info) Description 10/23/2024 8:15 AM EDT Hem/Onc Treatment [facility] [place] [address] [facility] [phone] [place], Chair 9 Hem Onc [address] [place] [address] 10/30/2024 9:00 AM EDT Office Visit Hematology/Oncology [address] [place] [phone] Kanu Maravilla MD [address] [facility] [place] [address] 11/06/2024 10:40 AM EDT Office Visit Family Practice [facility] [address] [place] [address] Malinda Owens CRNP [address] [place] [address] 04/27/2025 2:40 PM EST Telemedicine Endocrinology Kyrie [...] this encounter Medical Devices Implanted Type Area Client Resource Specialist Device Identifier Shelf Expiration Date Model / Serial / Lot Therese Angulo 4fr 11cm - [id number] Implanted:Qty : 1 on 02/08/2024 by Jeffrey Kerr MD at OR [facility] [employer] [facility] [id number] 08/16/2028 [id number] / / [id number] Description:https://www.doct ordoctor.biz/search/Detail.aspx?result=0 JLS 09/04/2024 Non metallic Port Implant W8f Poly Cath - [id number] Implanted:Qty : 1 on 05/02/2024 by Iam Curry MD at OR [facility] Right: Chest CR BARD : PERIPHERAL VASCULAR [id number] 05/17/2025 [id number] / / [id number] documented as of this encounter Visit Diagnoses Diagnosis Malignant neoplasm of upper-outer quadrant of left breast in female, estrogen receptor negative (HCC) documented in this encounter Care Teams Countersinker Balance Screw Hole Relationship Specialty Start Date End Date Malinda Owens CRNP [address] [place] [address] PCP - General Nurse Practitioner 09/20/23 documented as of this encounter
--- OUTSIDE RECORDS SUMMARY | 2024-11-01 03:38 | External Medical Summary ---
Author Name Unknown Address Unknown Organization K09:[facility] [place] [address] Laboratory Report Ordering Provider Test Date Status JASMINE JANESN 10/20/2024 08:46:57 Final Observation Date Value Abnormality Reference (Units ) Status SYNC LEUKOCYTES IN BLOOD BY AUTOMATED COUNT 10/20/2024 08:46:57 3.93 Below low normal 4.00-10.80 (K/uL) Final Segs 10/20/2024 08:46:57 17.5 Below low normal 40.0-75.0 (%) Final Lymphs % 10/20/2024 08:46:57 60.6 Above high normal 18.0-42.0 (%) Final Monos 10/20/2024 08:46:57 14.5 Above high normal 1.0-11.0 (%) Final Eosinophils 10/20/2024 08:46:57 7.1 Above high normal 0.0-6.0 (%) Final Basos 10/20/2024 08:46:57 0.3 0.0-2.0 (%) Final Absolute Segs 10/20/2024 08:46:57 0.69 Below low normal 1.80-7.70 (K/uL) Final Lymphs, absolute 10/20/2024 08:46:57 2.38 1.00-4.80 (K/ul) Final Monos, Abs 10/20/2024 08:46:57 0.57 0.00-1.10 (K/uL) Final Eos, Abs 10/20/2024 08:46:57 0.28 0.00-0.70 (K/uL) Final Basos, Abs 10/20/2024 08:46:57 0.01 0.00-0.20 (K/uL) Final Performing Location [facility] [place] [address]
--- OUTSIDE RECORDS SUMMARY | 2024-11-01 03:38 | External Medical Summary | Summary of Care ---
Author Name Unknown Organization [facility] Address [address] [facility] [place] [address] Phone [phone] Care Team Providers Care Waiter And Cashier Name Role Phone Malinda Owens Primary Care Provider [phone] Reason for Visit * Reason Comments Re-Check Chemo Encounter Details Date Type Department Care Team (Late st Contact Info) Description 10/16/2024 9:00 AM EDT Office Visit Hematology/Oncology [facility] [address] [place] [address] Gabby Zavala CRNP [address] [place] [address] Triple negative breast cancer (HCC)*; Malignant neoplasm of upper-outer quadrant of left breast in female, estrogen receptor negative (HCC); Encounter for prevention of neutropenia due to chemotherapy; Encounter for antineoplastic chemotherapy; Hypophysitis (HCC); Dehydration Allergies No known active allergiesdocumented as [...] before May 06, 2024. 30 Tablet 5 024 Active Additional Information Patient not taking.Reported on [...] Tablet before bedtime. 30 Tablet 025 Active OLANZapine 5 MG Oral TabletIndications :Malignant neoplasm of upper-outer quadrant of left breast in female, estrogen receptor negative (HCC) Take 1-2 Tablets by mouth at bedtime as needed for Insomnia or Nausea. 60 Tablet 1 025 Active Famotidine 20 MG Oral Tablet (Pepcid)Indicatio ns:Malignant neoplasm of upper-outer quadrant of left breast in female, estrogen receptor negative (HCC),Encounter for antineoplastic chemotherapy Take 1 Tablet by mouth in the morning. 30 Tablet 5 03/26/2 025 Active Hydrocortisone Sod Suc (PF) 100 MG Injection Solution Reconstituted (Solu-Cortef) Inject 100 mg into a large muscle once as needed for Other (Nausea, vomiting and inability to keep oral hydrocortisone down) for up to 1 dose. 2 mL Active Gabapentin 100 MG Oral Capsule (Neurontin)Indica tions:Malignant neoplasm of upper-outer quadrant of left breast in female, estrogen receptor negative (HCC),Encounter for antineoplastic chemotherapy Take 1 Capsule by mouth at bedtime. 30 Capsule 1 Active Mag64 64 MG Oral Tablet Delayed ReleaseIndication s:Malignant neoplasm of upper-outer quadrant of left breast in female, estrogen receptor negative (HCC),Encounter for antineoplastic chemotherapy Take 1 Tablet by mouth in the morning and 1 Tablet before bedtime. 60 Tablet Active LORazepam 1 MG Oral Tablet (Ativan)Indicatio ns:IGNACIO (generalized anxiety disorder),Panic attack Take 1 Tablet by mouth 3 times a day as needed for Anxiety. 30 Tablet Active FLUoxetine HCl 20 MG Oral Capsule (PROzac)Indicatio ns:IGNACIO (generalized anxiety disorder),Panic attack,Adjustment disorder with anxious mood Take 1 Capsule by mouth in the morning. 30 Capsule 5 025 Active Hydrocortisone 10 MG Oral Tablet (Cortef)Indicatio ns:Malignant neoplasm of upper-outer quadrant of left breast in female, estrogen receptor negative (HCC),Encounter for antineoplastic chemotherapy Take 1 tablet in the morning 30 Tablet 5 Active Hydrocortisone 5 MG Oral Tablet (Cortef)Indicatio ns:Hypophysitis (HCC) Take 1 Tablet by mouth in the morning and 1 Tablet before bedtime. 60 Tablet 5 025 Active Hydrocortisone 10 MG Oral Tablet (Cortef)Indicatio [...] and class I obesity. Per review of DOCUMENT MANAGEMENT CONSULTANT documentation of 09/25/23, blood glucose values [...] Recommend nutrition consult with RDN (Registered Dietitian Print Designer). Lifestyle changes are also indicated including [...] and folate levels and referral to a city planning teacher. If hemoglobin levels are below 8 g/dl, we recommend Maternal Medicine ultrasound for growth every 4 weeks after 24 weeks. Consider a blood transfusion if hemoglobin levels fall below 6 g/dL. ([employer] [facility] Practice Bulletin Number 95, December,). Consider [...] to get more. 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 Not on file Not on file documented as of this encounter Last Filed Vital Signs Vital Sign Reading Time Taken Comments Blood Pressure 97/64 10/16/2024 9:11 AM EDT Pulse 96 10/16/2024 9:11 AM EDT Temperature 36.9 °C (98.4 °F) 10/16/2024 9:11 AM ED T Respiratory Rate 16 10/16/2024 9:11 AM EDT Oxygen Saturation 95% 10/16/2024 9:11 AM EDT Inhaled Oxygen Concentration - - Weight 83.3 kg (183 lb 11.2 oz) 10/16/2024 9:11 AM EDT Height - - Body Mass Index 30.57 10/10/2024 9:23 AM EDT documented in this encounter Progress Notes * Yvrose Capps LPN - 10/16/2024 9:16 AM EDT Patient identifed by name and birthdate Do you have any concerns about pain management for today's visit? No Living Will or Advance Directive for Health Care as noted on the problem list. [facility] is a way you can talk to your provider on line through e-mail. Would you like to sign up? I can activate it for you? ALREADY ACTIVE Filed Vitals: 10/16/24 0911 BP: 97/64 Pulse: 96 Resp: 16 Temp: 36.9 °C (98.4 °F) TempSrc: Tympanic SpO2: 95% Weight: 83.3 kg (183 lb 11.2 oz) Patient was instructed to not get up on the exam table/exam chair until directed and assisted by their provider; patient is to remain seated in the chair/ wheelchair/ exam table/ exam chair for fall prevention and safety reasons. Patient is aware to have assistance to step down off exam table/exam chair with personnel. Patient voiced full comprehension of instructions. * Gabby Zavala CRNP - 10/16/2024 9:00 AM EDT Images from the original note were not included. Hematology/Oncology Outpatient Clinic [facility] [address] [facility] [place] [address] Name: Yuli Gutierrez Date: 10/15/2024 CHIEF COMPLAINT: Yuli Gutierrez is a 29 year old female here today for f/u visit today. Patient of Dr. Kanu Maravilla. From Patient chart confirmed with patient. HEMATOLOGY/ONCOLOGY DIAGNOSIS: Left Triple Negative Breast Cancer Genetic Clinic evaluation at [facility], as per the patient she is negative for the known mutations. Cancer Staging Clinical Stage 1 - T1N0 DATE OF DIAGNOSIS: 04/15/24 CURRENT TREATMENT: Currently receiving neoadjuvant chemotherapy KEYNOTE 522 as follows ( 05/08/2024 - ) Phase 1: - Keytruda 200 mg every 3 weekly x 4 - Paclitaxel 80 mg/m² weekly x 12 - Carboplatin at AUC of 1.5 every weekly x 12 Phase 2: -Keytruda 200 mg every 3 weekly x4 -Adriamycin 60 mg/m² every 3 weekly x4 - cyclophosphamide 600 mg/m² every 3 weekly x4. Surgery Phase 3: -Keytruda 200 mg every 3 weekly x 9 09/18/24: 1L NSS over two hours on day of Pegfilgrastim for all future treatment cycles -Lupron every month DIAGNOSTIC WORKUP: [place] lump in the left breast in 02/2024. [...] special type, grade 3. - ER and MD receptor negative, Her2/trent Negative by IHC. PET-CT [...] and early breast cancer (MGM sister, 35) Interval History: Patient was admitted to [facility] 09/05/24 - 09/08/24 for febrile neutropenia. Infectious work up unremarkable. Received empiric IV antibiotics. Also received 1 unit of PRBC for Hgb of 7.2. Hgb 8.6 on discharge. MRI Brain 09/07/24: Left Breast U/S 09/25/24: Impression MAMMOGRAM DIAGNOSTIC KARIN LEFT US BREAST LIMITED LEFT Findings are suggestive of response to neoadjuvant chemotherapy as discussed above. Continued surgical and oncologic surveillance is advised. Patient is advised to follow-up with surgeon. HISTORY OF PRESENT ILLNESS: Yuli Gutierrez is a 29 year old female with a history as outlined above. Currently here for f/u visit today and consideration for C7D1 of treatment. Patient contracted rhinovirus after last treatment. Symptoms continued up until last week. Anxiety really flared up during that time as well. Did increase her steroid use for a day or two. Now taking 10 mg in AM and 5 mg in PM due to not being able to take 15 mg in AM. Was very fatigued during that time. Also had no appetite and has not yet regained that back fully. Also feeling weak and dizzy. Has been taking Ativan 1 mg BID. Also was started onProzac by her PCP. Zyprexa and Zofran working for nausea. Denies further mouth sores or pain. Eating and drinking well. Content Savvy works for diarrhea. Denies any peripheral neuropathy. Past Medical History: Diagnosis Date Breast cancer (HCC) 04/15/2024 invasive mammary carcinoma of no special type, grade 3. Diet controlled gestational diabetes mellitus (GDM) in third trimester 09/20/2023 09/20/23 Repeated 3hr GTT at 33w d/t LGA, failed. MFM referral placed for ADAPT. Diagnosed at 33 weeks Nutrition consult 09/24/23 Lab Results Component Value Date/Time 50-G GESTATIONAL GLUCOSE, 1 HOUR - [facility] 169 (H) 04/19/2023 09:23 AM 100-G GESTATIONAL GLUCOSE, 1 HOUR - [facility] 216 (H) 09/19/2023 01:52 PM 100-G GESTATIONA History of gestational diabetes Motion sickness Past Surgical History: Procedure Laterality Date CHEMOTHERAPY Left 05/08/2024 DENTAL SURGERY PROCEDURE NEC Age 12 ERCP, DIAGNOSTIC, SPECIMEN COLLECTION N/A 02/08/2024 choledocholithiasis, complete removal/one plastic pancreatic stent placed into ventral pancreatic duct/ENDOSCOPIC RETROGRADE CHOLANGIOPANCREATOGRAPHY (ERCP) DIAGNOSTIC performed by Jeffrey Kerr MD at OR [facility] INSER TUNN ACC DEV;5 YRS/OLDER Right 05/02/2024 INSERT TUNNELED CENTRAL VENOUS ACCESS WITH SUBQ PORT performed by Iam Curry MD at OR [facility] MD CHOLECYSTECTOMY 02/04/2024 Dr. Jade US GUIDED BREAST BIOPSY LEFT Left 04/15/2024 invasive mammary carcinoma of no special type, grade 3. 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 (Household - for ages 0-17 years): [...] Stability Do you currently live in a snf or have no steady place to sleep [...] by mouth. (Patient not taking: Reported on 10/10/2024) Prochlorperazine Maleate 10 MG Oral Tablet (Compazine) Take 1 Tablet by mouth every 6 hours as needed for Nausea. Do not start before May 06, 2024. (Patient not taking: Reported on 10/10/2024) 30Tablet 5 Lidocaine-Prilocaine 2.5-2.5 % External Cream (Emla) [...] and 1 Tablet before bedtime. After meals.. (Patient not taking: Reported on 10/10/2024) 6 Tablet 0 Diphenoxylate-Atropine 2.5-0.025 MG Oral Tablet (Lomotil) Take 1 Tablet by mouth 4 times a day as needed for Diarrhea. 30 Tablet 0 oxyBUTYnin Chloride 5 MG Oral Tablet (Ditropan) Take 1 Tablet by mouth in the morning and 1 Tablet at noon and 1 Tablet before bedtime. 30 Tablet 0 OLANZapine 5 MG Oral Tablet Take 1-2 Tablets by mouth at bedtime as needed for Insomnia or Nausea. 60 Tablet 1 Famotidine 20 MG Oral Tablet (Pepcid) Take 1 Tablet by mouth in the morning. 30 Tablet 5 Hydrocortisone 10 MG Oral Tablet (Cortef) Take 1 tablet in the early afternoon 30 Tablet 5 Hydrocortisone 20 MG Oral Tablet (Cortef) Take 1 Tablet by mouth in the morning. 30 Tablet 5 Hydrocortisone Sod Suc (PF) 100 MG Injection Solution Reconstituted (Solu- Cortef) Inject 100 mg into a large muscle once as needed for Other (Nausea, vomiting and inability to keep oral hydrocortisone down) for up to 1 dose. 2 mL 0 Gabapentin 100 MG Oral Capsule (Neurontin) Take 1 Capsule by mouth at bedtime. 30 Capsule 1 Mag64 64 MG Oral Tablet Delayed Release Take 1 Tablet by mouth in the morning and 1 Tablet before bedtime. 60 Tablet 0 LORazepam 1 MG Oral Tablet (Ativan) Take 1 Tablet by mouth 3 times a day as needed for Anxiety. 30 Tablet 0 FLUoxetine HCl 20 MG Oral Capsule (PROzac) Take 1 Capsule by mouth in the morning. 30 Capsule 5 No current facility-administered medications for this visit. REVIEW OF SYSTEMS: See HPI - otherwise negative OBJECTIVE: Filed Vitals: 10/16/24 0911 BP: 97/64 Pulse: 96 Resp: 16 Temp: 36.9 °C (98.4 °F) TempSrc: Tympanic SpO2: 95% Weight: 83.3 kg (183 lb 11.2 oz) Wt Readings from Last 5 Encounters: 10/16/24 83.3 kg (183 lb 11.2 oz) 09/12/24 90.8 kg (200 lb 1.6 oz) 08/28/24 88.2 kg (194 lb 6.4 oz) 08/21/24 88.8 kg (195 lb 12.8 oz) 08/14/24 91 kg (200 lb 9.6 oz) PHYSICAL EXAM: ECOG: Performance Status 1 = 80-90% Symptoms but nearly ambulatory General Appearance: No acute distress, appears fatigued HEENT: +mild oral thrush Lymph Nodes: Normal - No palpable lymph nodes in the neck or supraclavicular areas Lungs/Thorax: Normal - Clear to auscultation Heart: Normal - Regular rate and rhythm, normal S1, S2, no appreciable murmurs Pulses/Extremities: Normal - 2+ throughout and symmetrical, no edema Neurologic: Normal - Grossly intact LABS: Results for orders placed or performed in visit on 10/16/24 COMPREHENSIVE METABOLIC PANEL Result Value Ref Range BUN 7 6 - 20 mg/dL CREATININE 0.8 0.5 - 1.0 mg/dL EGFR >90 >=60 mL/min SODIUM 140 135 - 146 mmol/L POTASSIUM 3.8 3.5 - 5.1 mmol/L CHLORIDE 106 98 - 107 mmol/L CO2 22 22 - 32 mmol/L ANION GAP 12 7 - 15 mmol/L GLUCOSE 79 70 - 120 mg/dL Albumin 4.5 3.8 - 5.0 g/dL AST 36 (H) 10 - 35 U/L Alkaline Phosphatase 60 35 - 130 U/L Bilirubin, Total 0.6 <=1.2 mg/dL CALCIUM 9.6 8.4 - 10.2 mg/dL Protein 6.7 6.0 - 8.3 g/dL ALT 48 (H) 10 - 35 U/L HCG QUALITATIVE, URINE Result Value Ref Range HCG Qualitative, Urine Negative Negative TSH WITH FREE T4 IF INDICATED Result Value Ref Range TSH 1.12 0.27 - 4.20 uIU/mL CBC Result Value Ref Range WBC 3.72 (L) 4.00 - 10.80 K/uL RBC 3.26 3.85 - 5.15 M/uL HGB 10.7 (L) 12.0 - 15.3 g/dL HCT 32.9 (L) 36.0 - 45.2 % MCV 100.9 81.5 - 97.5 fL MCH 32.8 27.0 - 34.0 pg MCHC 32.5 32.0 - 36.0 g/dL RDW 14.3 11.5 - 15.5 % PLT 215 140 - 400 K/uL MPV 9.1 6.6 - 11.1 fL DIFFERENTIAL, AUTOMATED Result Value Ref Range WBC 3.72 (L) 4.00 - 10.80 K/uL Neutrophils % 11.1 (L) 40.0 - 75.0 % Lymphocytes % 65.3 (H) 18.0 - 42.0 % Monocytes % 21.2 (H) 1.0 - 11.0 % Eosinophils % 1.9 0.0 - 6.0 % Basophils % 0.5 0.0 - 2.0 % Absolute Neutrophils 0.41 (L) 1.80 - 7.70 K/uL Absolute Lymphocytes 2.43 1.00 - 4.80 K/ul Absolute Monocytes 0.79 0.00 - 1.10 K/uL Absolute Eosinophils 0.07 0.00 - 0.70 K/uL Absolute Basophils 0.02 0.00 - 0.20 K/uL IMPRESSION/PLAN: Left Triple Negative Breast Cancer Prevention of chemotherapy induced neutropenia Hypophysitis Dehydration Completed first stage of neoadjuvant chemotherapy with Pembrolizumab D1 + Carboplatin AUC1.5 D1,8,15 + Paclitaxel 80 mg/m2 D1,8,15 q21 Days x 4 cycles. Is now completing second stage with Keytruda 200 mg + Adriamycin 60 mg/m² + cyclophosphamide 600 mg/m² every 3 weeks x4. Presents today for consideration of C7D1 of treatment. Patient developed rhinovirus after last treatment cycle. Continues to feel fatigued, weak and dizzytoday. BP mildly low today at 97/64. Due to flair up in anxiety patient recommended to taper down on hydrocortisone to 15+5 by endocrinology. Patient reports she has actually been taking 10+5. Lab results reviewed: Hgb stable at 10.7 ANC low at 0.41 LFTs mildly elevated with AST 36 and ALT 48 Will defer treatment x 1 week. Will administer 1L NSS over two hours today x [address] Kanu Maravilla: will discontinue Keytruda from all future treatment cycles. Ok for Lupron today Continue PO hydrocortisone- 15 mg in AM, 5mg at night. New prescription sent. Continue to follow with endocrinology to assist with management. Brain MRI completed 09/07/24 unremarkable. Patient will receive Pegfilgrastim support D2 d/t high risk for febrile neutropenia. Will also receive 1L NSS over two hours on D2 of treatment. Plan for tentative left lumpectomy and sln biopsy after completion of neoadjuvant chemo. Surgery and Plastics consult scheduled at [facility]. Genetics work up negative RTC as scheduled AD Montero documented in this encounter Plan of Treatment Upcoming Encounters Date Type Department Care Team (Late st Contact Info) Description 10/23/2024 8:15 AM EDT Hem/Onc Treatment Hematology/Oncology Treatment, [place] [address] [place] [phone] [place], Chair 9 Hem Onc [address] [place] [id number] 10/30/2024 9:00 AM EDT [facility] [place] [phone] Kanu Maravilla MD [address] [place] [id number] 11/06/2024 10:40 AM EDT Office Visit [facility] [address] [place] [address] [address] [place] [id number] 04/27/2025 2:40 PM EST Telemedicine Endocrinology Kyrie [...] this encounter Medical Devices Implanted Type Area Shaker Operator Device Identifier Shelf Expiration Date Model / Serial / Lot Stent Kev 4fr 11cm - [id number] Implanted:Qty : 1 on 02/08/2024 by Jeffrey Kerr MD at OR [facility] Bucky Box [id number] 08/16/2028 [id number] / / [id number] Description:[email or web address]/[email or web address] JLS 09/04/2024 Non metallic Port Implant W8f Poly Cath - [id number] Implanted:Qty : 1 on 05/02/2024 by Iam Curry MD at OR [facility] Right: Chest CR BARD : PERIPHERAL VASCULAR [id number] 05/17/2025 [id number] / / [id number] documented as of this encounter Visit Diagnoses Diagnosis Triple negative breast cancer (HCC)- Primary Malignant neoplasm of upper-outer quadrant of left breast in female, estrogen receptor negative (HCC) Encounter for prevention of neutropenia due to chemotherapy Encounter for antineoplastic chemotherapy Hypophysitis (HCC) Other disorders of the pituitary and other syndromes of diencephalohypophyseal origin Dehydration documented in this encounter Care Teams Waiter And Cashier Relationship Specialty Start Date End Date Malinda Owens CRNP [address] [id number] PCP - General Nurse Practitioner 09/20/23 documented as of this encounter
--- OUTSIDE RECORDS SUMMARY | 2024-11-01 03:38 | External Medical Summary | Summary of Care ---
Author Name Unknown Organization [facility] Address [address] [place] [address] Phone [phone] Care Team Providers Care Economic Specialist Name Role Phone Malinda Owens Primary Care Provider [phone] Reason for Visit * Reason Comments Chemotherapy Chemo held Medication Administration Lupron IV Therapy IV hydration * Episode Based Medications (Routine) - Authorized Specialty Diagnoses / Procedures Referred By Contac t Referred To Contact Diagnoses Triple negative breast cancer (HCC) Encounter for fertility preservation procedure Suppression of ovarian secretion Procedures PA LEUPROLIDE ACETATE /3.75 MG Kanu Maravilla MD 200 [facility] [place] [address] Phone: tel: fax: Hematology/Oncology Treatment, [address] [address] Phone: tel: fax: Referral ID Status Reason Start Date Expiration Date V isits Requested Visits Authorized [id number] Authorized 09/17/2024 06/16/2099 [id number] Encounter Details Date Type Department Care Team (Latest Contact Info) Description 10/16/2024 9:30 AM EDT Hem/Onc Treatment Hematology/Oncology Treatment, [address] [phone] [place] Chair 2 Hem Onc [address] [place] [address] Triple negative breast cancer (HCC)*; Encounter for fertility preservation procedure; Suppression of ovarian secretion; Dehydration; Malignant neoplasm of upper-outer quadrant of [...] by mouth in the morning. 30 Tablet 025 Active Hydrocortisone Sod Suc (PF) 100 MG Injection Solution Reconstituted (Solu-Cortef) Inject 100 mg into a large muscle once as needed for Other (Nausea, vomiting and inability to keep oral hydrocortisone down) for up to 1 dose. 2 mL 025 Active Gabapentin 100 MG Oral Capsule (Neurontin)Indica tions:Malignant neoplasm of upper-outer quadrant of left breast in female, estrogen receptor negative (HCC),Encounter for antineoplastic chemotherapy Take 1 Capsule by mouth at bedtime. 30 Capsule 025 Active Mag64 64 MG Oral Tablet Delayed ReleaseIndication s:Malignant neoplasm of upper-outer quadrant of left breast in female, estrogen receptor negative (HCC),Encounter for antineoplastic chemotherapy Take 1 Tablet by mouth in the morning and 1 Tablet before bedtime. 60 Tablet 025 Active LORazepam 1 MG Oral Tablet (Ativan)Indicatio ns:IGNACIO (generalized anxiety disorder),Panic attack Take 1 Tablet by mouth 3 times a day as needed for Anxiety. 30 Tablet 025 Active FLUoxetine HCl 20 MG Oral Capsule (PROzac)Indicatio ns:IGNACIO (generalized anxiety disorder),Panic attack,Adjustment disorder with anxious mood Take 1 Capsule by mouth in the morning. 30 Capsule 5 025 Active Hydrocortisone 10 MG Oral Tablet (Cortef)Indicatio ns:Malignant neoplasm of upper-outer quadrant of left breast in female, estrogen receptor negative (HCC),Encounter for antineoplastic chemotherapy Take 1 tablet in the early afternoon 30 Tablet 025 2024 Discontinued Hydrocortisone 20 MG Oral [...] class I obesity. Per review of SCIENTIFIC ASSOCIATE documentation of 09/25/23, blood glucose values [...] Recommend nutrition consult with RDN (Registered Dietitian Roving Tester Laboratory). Lifestyle changes are also indicated including optimizing [...] and folate levels and referral to a meter mechanic. If hemoglobin levels are below 8 g/dl, we recommend Maternal Medicine ultrasound for growth every 4 weeks after 24 weeks. Consider a blood transfusion if hemoglobin levels fall below 6 g/dL. ([employer] and Adjunct Professor Of Voice Practice Bulletin Number 95, December,). Consider Venofer [...] money to get more. 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 Port needle flushed with 10 ml NSS, blood return noted, and port locked with additional 10 ml NSS. Lopez needle removed, intact, gauze dressing applied. Patient returning Sunday10/20/24 for labs and treatment. Lupron injection given per order, patient tolerated well. Goals: Patient will remain free from injury. Possible barriers to meeting goals: ambulating with IV pole Stability of the patient: Moderately stable - low risk of patient condition declining or worsening Summary regarding today's goals: Met: Patient remained free from harm/injury during treatment. Patient left facility in stable condition. * Marilyn Burnett RN - 10/16/2024 10:07 AM EDT Chair 7, Patient saw Gabby DUONG, see visit note. Chemo held today, getting IV fluids and lupron injection today. Patient with complaints of fatigue, weakness. Denies nausea. Port was accessed prior to provider visit. IV fluids started. Safety and Risk for [...] 10/20/2024 8:00 AM EDT Nurse Only [address]ematology[address] [phone] [place], Chair 1 Hem Onc Scenery [address] [facility] [place] [address] 10/20/2024 8:45 AM EDT Hem/Onc Treatment Hematology/[address], [address] [phone] [place], Chair 7 [facility] [address] [place] [address] [place] [address] 10/30/2024 9:00 AM EDT Office Visit Hematology/Oncology [facility] 200 [facility] [place] [phone] Kanu Maravilla MD 200 [facility] [place], [place] [address] 11/06/2024 10:40 AM EDT Office Visit [facility] [address] [place] [address] Malinda Owens CRNP [address] [place] [address] 04/27/2025 2:40 PM EST Telemedicine Endocrinology [place] [...] this encounter Medical Devices Implanted Type Area Public Speaking Instructor Device Identifier Shelf Expiration Date Model / Serial / Lot Therese Angulo 4fr 11cm - [id number] Implanted:Qty : 1 on 02/08/2024 by Jeffrey Kerr MD at OR [facility] [facility] [id number] 08/16/2028 [id number] / / [id number] Description:https://www.doct ordoctor.biz/search/Detail.aspx?result=0 ELISE 09/04/2024 Non metallic Port Implant W8f Poly Cath - [id number] Implanted:Qty : 1 on 05/02/2024 by Iam Curry MD at OR [facility] Right: Chest CR BARD : PERIPHERAL VASCULAR [id number] 05/17/2025 [id number] / / [id number] documented as of this encounter Visit Diagnoses Diagnosis Triple negative breast cancer (HCC)- Primary Encounter for fertility preservation procedure 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 Dehydration Malignant neoplasm of upper-outer quadrant of left breast in female, estrogen receptor negative (HCC) documented in this encounter Administered Medications Inactive Administered Medications - up to 3 most recent administrations Medication Order MAR Action Action Date Dose Rate Site Leuprolide Acetate (Lupron) inj 3.75 mg 3.75 mg, Intramuscular, ONCE, On Sun10/16/24 at 1100, For 1 doseIndications:Trip le negative breast cancer (HCC),Encounter for fertility preservation procedure,Suppressio n of ovarian secretion Given 10/16/2024 12:07 PM EDT 3.75 mg Dorsogluteal Left NSS infusion FOR HYDRATION Intravenous, at 500 mL/hr Administer over 2 Hours, ONCE, 1 dose, On Sun10/16/24 at 1115Indications:Dehy dration,Malignant neoplasm of upper-outer quadrant of left breast in female, estrogen receptor negative (HCC) Start Infusion 10/16/2024 10:00 AM EDT 1,000 mL 500 mL/hr sodium chloride 0.9 % flush/inj 20 mL 20 mL, IV Push, PRN IV Flush and Lock, Starting on Sun10/16/24 at 1011, Until Sun10/16/24 at 1617, Do not flush if lock, PICC, or central line not in place; IV infusing or unable to flush. For midlines and central lines. For IV Flush and Lock, IVAD is flushed with a total of 20 mL Normal Saline, 10 mL of Normal Saline Flush with 10 mL of Normal Saline acting as IV LOCK.Indications:Tri ple negative breast cancer (HCC),Dehydration Given 10/16/2024 12:03 PM EDT 20 mL documented in this encounter Care Teams Economic Specialist Relationship Specialty Start Date End Date Malinda Owens CRNP [address] [place] [address] PCP - General Nurse Practitioner 09/20/23 documented as of this encounter
--- OUTSIDE RECORDS SUMMARY | 2024-11-01 03:38 | External Medical Summary ---
Author Name Unknown Address Unknown Organization [id number]:[facility] [place] [address] [place] [address] [place] [address] Laboratory Report Ordering Provider Test Date Status JASMINE JANSEN 10/20/2024 08:46:57 Final Observation Date Value Abnormality Reference (Units ) Status TSH 10/20/2024 08:46:57 0.62 0.27-4.20 (uIU/mL) Final Performing Location [facility] [place] - [address] [place] [address]
--- OUTSIDE RECORDS SUMMARY | 2024-11-01 03:39 | External Medical Summary | Summary of Care ---
Author Name Unknown Organization [facility] Address [address] [place] [facility] [place] [address] Phone [phone] Care Team Providers Care School Fundraising Director Name Role Phone Malinda Owens Primary Care Provider [phone] Reason for Visit * Reason Onset Date Comments Medication Refill 10/04/2024 Encounter Details Date Type Department Care Team (Late st Contact Info) Description 10/04/2024 Refill Hematology/Oncology [facility] [place] [address] [facility] [place] [place] [phone] Inderjit Maravilla MD 200 [facility] [place] [place] [address] Malignant neoplasm of upper-outer quadrant of left breast in female, estrogen receptor negative (HCC); Encounter for antineoplastic chemotherapy Allergies No known active allergiesdocumented as of this encounter (statuses as of 10/06/2024) Medications 19 29-1 MG Oral Tablet Chewable [...] 07/07/19 25 Active OLANZapine 5 MG Oral TabletIndications [...] 25 Active Hydrocortisone 20 MG Oral Tablet (Cortef)Indicatio ns:Malignant [...] before bedtime. 60 Tablet 10/07/19 25 Active Gabapentin 100 MG Oral Capsule (Neurontin) 09/09/19 25 025 Disconti nued(Ref ill) Mag64 64 MG Oral Tablet Delayed Release 09/09/19 25 025 Disconti nued(Ref ill) documented as of this encounter (statuses as of 10/06/2024) Active Problems Problem Noted Date Diagnosed Date [...] as of this encounter (statuses as of 10/06/2024) Resolved Problems Problem Noted Date Diagnosed Date [...] class I obesity. Per review of HEALTH ADMINISTRATOR documentation of 09/25/23, blood glucose values [...] Recommend nutrition consult with RDN (Registered Dietitian Mission Worker). Lifestyle changes are also indicated including [...] folate levels and referral to a dry plasterer helper. If hemoglobin levels are below 8 g/dl, we recommend Maternal Medicine ultrasound for growth every 4 weeks after 24 weeks. Consider a blood transfusion if hemoglobin levels fall below 6 g/dL. ([employer]st[employer] and Dress Cutter Practice Bulletin Number 95, December,). Consider Venofer transfusions if patient labs supportive of iron deficiency anemia with dosing of 300 mg IV weekly x 3 weeks Abnormal glucose tolerance i n mother complicating 04/19/2023 08/31/2023 Overview (04/19/2023): Failed early glucola. 3hr GTT ordered Encounter for supervision of other normal , unspecified trimester 04/03/2023 025 documented as of this encounter (statuses as of 10/06/2024) Immunizations Name Administration Dates Next Due DTP [...] to get more. 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 * Telephone Encounter - Yuli Gallagher, RN - 10/06/2024 12:00 PM EDTSigned Prescriptions: Disp Refills Gabapentin 100 MG Oral Capsule (Neurontin) 30 Cap*1 Sig: Take 1 Capsule by mouth at bedtime.Authorizing Provider: INDERJIT MARAVILLA Mag64 64 MG Oral Tablet Delayed Release 60 Tab*0 Sig: Take 1 Tablet by mouth in the morning and 1 Tablet before bedtime.Authorizing Provider: INDERJIT MARAVILLA * Telephone Encounter - Inderjit Maravilla MD - 10/06/2024 11:49 AM EDT E-prescribed Gabapentin and oral magnesium. She should continue both medications. Inderjit Maravilla MD Hem/Onc * Telephone Encounter - Yvrose Capps LPN - 10/06/2024 11:32 AM EDTPending Prescriptions: Disp Refills Gabapentin 100 MG Oral Capsule (Neurontin) 30 Cap*1 Sig: Take 1 Capsule by mouth at bedtime. Mag64 64 MG Oral Tablet Delayed Release 60 Tab*0 Sig: Take 1 Tablet by mouth in the morning and 1 Tablet before bedtime. * Telephone Encounter - Yvrose Capps LPN - 10/06/2024 11:25 AM EDT Refill request for Gabapentin 100 mg and Mag64 pended below: Last refill: Prescribed at discharge from [facility] 09/09/2024: Magnesium level: 1.8 Last seen: 09/18/2024 Patient was admitted to [facility] 09/05/24 - 09/08/24 for febrile neutropenia. Infectious work up unremarkable. Received empiric IV antibiotics. Also received 1 unit of PRBC for Hgb of 7.2. Hgb 8.6 on discharge. Next Appt.: 10/09/2024 Requesting: Patient * Telephone Encounter - Yvrose Capps LPN - 10/06/2024 11:14 AM EDT Spoke with patient, informed patient per her original request for the Hydrocortisone 10 mg and Hydrocortisone 20 mg both were sent to [facility] on [facility] with 5 refills for each prescription. She voiced understanding and will contact [facility] for the refills. She is requesting if Dr. Maravilla would refill her gabapentin 100 mg and Mag64 64 mg? She states she "only has one gabapentin left. She reports she has been taking the gabapentin since her discharge on 09/08/2024. She states it was prescribed for leg pain and is effective. She questions if she will still need the Mag64? She denies any complaints, her last Magnesium levelwas on 09/09/2024 at 1.8. * Telephone Encounter - Yvrose Capps LPN - 10/06/2024 7:25 AM EDTPending Prescriptions: Disp Refills Hydrocortisone 10 MG Oral Tablet (Cortef) 30 Tab*5 Sig: Take 1 tablet in the early afternoon Hydrocortisone 20 MG Oral Tablet (Cortef) 30 Tab*5 Sig: Take 1 Tablet by mouth in the morning. documented in this encounter Plan of Treatment Upcoming Encounters Date Type Department Care Team (Late st Contact Info) Description 10/09/2024 7:45 AM EDT Nurse Only Hematology/Oncology Treatment, [address] [place] [phone] [place], Chair 1 Hem Onc [address] [place] [address] 10/09/2024 8:00 AM EDT Office Visit Hematology/Oncology [facility] [address] [place] [phone] Gabby Zavala CRNP [address] [place] [address] 10/09/2024 8:30 AM EDT Hem/Onc Treatment Hematology/Oncology Treatment, [address] [place] [phone] [place], Chair 11 Hem Onc [address] [place] [address] 10/30/2024 9:00 AM EDT Office Visit Hematology/Oncology [facility] [place] [address] [place] [phone] Inderjit Maravilla MD 200 [facility] [place] [address] 04/27/2025 2:40 PM EST Telemedicine Endocrinology [place] [phone] Orlin Miranda MD [...] this encounter Medical Devices Implanted Type Area Drywall Finisher Device Identifier Shelf Expiration Date Model / Serial / Lot Stent Kev 4fr 11cm - [id number] Implanted:Qty : 1 on 02/08/2024 by Jeffrey Kerr MD at OR [facility] DLS [facility] [id number] 08/16/2028 [id number] / / [id number] Description:https://www.doct ordoctor.biz/search/Detail.aspx?result=0 JLS 09/04/2024 Non metallic Port Implant W8f Poly Cath - [id number] Implanted:Qty : 1 on 05/02/2024 by Iam Curry MD at OR [facility] Right: Chest CR BARD : PERIPHERAL VASCULAR [id number] 05/17/2025 [id number] / / [id number] documented as of this encounter Visit Diagnoses Diagnosis Malignant neoplasm of upper-outer quadrant of left breast in female, estrogen receptor negative (HCC) Encounter for antineoplastic chemotherapy documented in this encounter Care Teams School Fundraising Director Relationship Specialty Start Date End Date Malinda Owens CRNP [address] [facility] [place] [address] PCP - General Nurse Practitioner 09/20/23 documented as of this encounter
--- OUTSIDE RECORDS SUMMARY | 2024-11-01 03:39 | External Medical Summary ---
Author Name Unknown Address Unknown Organization K01:[facility] [place] [address] [facility] [address] Laboratory Report Ordering Provider Test Date Status AMALIA PETERS 10/09/2024 09:02:54 Final Observation Date Value Abnormality Reference (Units ) Status ACTH 10/09/2024 09:02:54 <3.0 Below low normal 7.2 -63.3 (pg/mL) Final Performing Location [facility] [place] [address] [facility] [address]
--- OUTSIDE RECORDS SUMMARY | 2024-11-01 03:39 | External Medical Summary ---
Author Name Unknown Address Unknown Organization K09:[facility] [place] [address] Laboratory Report Ordering Provider Test Date Status JASMINE JANSEN 10/16/2024 08:57:13 Final Observation Date Value Abnormality Reference (Units ) Status SYNC LEUKOCYTES IN BLOOD BY AUTOMATED COUNT 10/16/2024 08:57:13 3.72 Below low normal 4.00-10.80 (K/uL) Final Segs 10/16/2024 08:57:13 11.1 Below low normal 40.0-75.0 (%) Final Lymphs % 10/16/2024 08:57:13 65.3 Above high normal 18.0-42.0 (%) Final Monos 10/16/2024 08:57:13 21.2 Above high normal 1.0-11.0 (%) Final Eosinophils 10/16/2024 08:57:13 1.9 0.0-6.0 (%) Final Basos 10/16/2024 08:57:13 0.5 0.0-2.0 (%) Final Absolute Segs 10/16/2024 08:57:13 0.41 Below low normal 1.80-7.70 (K/uL) Final Lymphs, absolute 10/16/2024 08:57:13 2.43 1.00-4.80 (K/ul) Final Monos, Abs 10/16/2024 08:57:13 0.79 0.00-1.10 (K/uL) Final Eos, Abs 10/16/2024 08:57:13 0.07 0.00-0.70 (K/uL) Final Basos, Abs 10/16/2024 08:57:13 0.02 0.00-0.20 (K/uL) Final Performing Location LAB[facility]ATORY [facility] [place] [address]
--- OUTSIDE RECORDS SUMMARY | 2024-11-01 03:39 | External Medical Summary | Summary of Care ---
Author Name Unknown Organization [facility] Address [address] [place] [address] Phone [phone] Care Team Providers Care Saw Tailer Name Role Phone Malinda Owens Primary Care Provider [phone] Encounter Details Date Type Department Care Team (Late st Contact Info) Description 10/16/2024 Orders Only Hematology/Oncology [facility] [place] 200 [facility] [place] [phone] Gabby Zavala CRNP 400 [place] [address] Allergies No known active allergiesdocumented as of this encounter (statuses as of 10/16/2024) Medications 29-1 MG Oral Tablet Chewable Take [...] MFM ADAPT consult complete. Enrolled in [employer]. Plans to hop picker meter from pharmacy today. Instructions [...] and class I obesity. Per review of DRIVER EDUCATION ROAD INSTRUCTOR documentation of 09/25/23, blood glucose values [...] Recommend nutrition consult with RDN (Registered Dietitian Sand Temperer). Lifestyle changes are also indicated including optimizing [...] and folate levels and referral to a engineered wood designer. If hemoglobin levels are below 8 g/dl, we recommend Maternal Medicine ultrasound for growth every 4 weeks after 24 weeks. Consider a blood transfusion if hemoglobin levels fall below 6 g/dL. ([employer]st[employer]ians and Cloud Systems Architect Practice Bulletin Number 95, December,). Consider [...] money to get more. Never true 03/26/2024 [place] Depression Scale Answer Date Recorded [place] Depression Scale Total 6 12/11/2023 The thought [...] 8:00 AM EDT Nurse Only [facility]ematology[facility] [place] [facility] [phone] [place], Chair 1 Hem Onc [facility] 200 [facility] [place] [address] 10/20/2024 8:45 AM EDT Hem/Onc Treatment Hematology[facility]Oncology [facility], [place] [address] [facility] [phone] [place], Chair 7 Hem Onc [facility] 200 [facility] [place] [address] 10/30/2024 9:00 AM EDT Office Visit Hematology/Oncology [facility] 200 [facility] [place] [phone] Kanu Maravilla MD [address] [place] [address] 11/06/2024 10:40 AM EDT Office Visit [facility] [address] [facility] [address] [place] [address] Malinda Owens CRNP [address] [place] [address] 04/27/2025 2:40 PM EST Telemedicine Endocrinology [place] [address] [place] [address] Orlin Miranda MD [address] [place] [address] Health Maintenance Due Date Last Done Comments Depression Screening 2006 HPV (Gardasil) Vaccine (3 - 3-dose series) 02/05/2013 11/13/2012, 03/21/2012 Lipid Panel 2014 COVID-19 Vaccine (1 - 2024-25 season) 2024 HPV/Co-Test 2024 Cervical Cancer Screening [...] this encounter Medical Devices Implanted Type Area Crop Consultant Device Identifier Shelf Expiration Date Model / Serial / Lot Stent Angulo 4fr 11cm - [id number] Implanted:Qty : 1 on 02/08/2024 by Jeffrey Kerr MD at OR [facility] [employer] [id number] 08/16/2028 [id number] / / [id number] Description:https://www.doct ordoctor.biz/search/Detail.aspx?result=0 JLS 09/04/2024 Non metallic Port Implant W8f Poly Cath - [id number] Implanted:Qty : 1 on 05/02/2024 by Iam Curry MD at OR [facility] Right: Chest CR BARD : PERIPHERAL VASCULAR [id number] 05/17/2025 [id number] / / [id number] documented as of this encounter Care Teams Saw Tailer Relationship Specialty Start Date End Date Malinda Owens CRNP [address] [place] [address] PCP - General Nurse Practitioner 09/20/23 documented as of this encounter
--- OUTSIDE RECORDS SUMMARY | 2024-11-01 03:39 | External Medical Summary | Summary of Care ---
Author Name Unknown Organization [facility] Address [address] [place] [facility] [place] [address] Phone [phone] Care Team Providers Care Math Coach Name Role Phone Malinda Owens Primary Care Provider [phone] Reason for Visit * Reason Onset Date Comments Advice 10/16/2024 Encounter Details Date Type Department Care Team (Late st Contact Info) Description 10/16/2024 Telephone Hematology/Oncology [facility] [place] [address] [place] [address] Kanu Maravilla MD [address] [place] [address] Advice Allergies No known active allergiesdocumented as [...] Enrolled in Current Health. Plans to picking machine operator meter from pharmacy today. [...] and class I obesity. Per review of CANDY PULLER documentation of 09/25/23, blood glucose values have [...] nutrition consult with RDN (Registered Dietitian Guest Relations Officer). Lifestyle changes are also indicated including [...] and folate levels and referral to a rubber production machine operator. If hemoglobin levels are below 8 g/dl, we recommend Maternal Medicine ultrasound for growth every 4 weeks after 24 weeks. Consider a blood transfusion if hemoglobin levels fall below 6 g/dL. ([employer] Practice Bulletin Number 95, December,). Consider [...] money to get more. 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 [address] 10/20/2024 8:45 AM EDT Hem/Onc Treatment Hematology/Oncology Treatment, [place] [address] [place] [address] Park, Chair 7 Hem Onc [facility] [address] [facility] [place], [place] [address] 10/30/2024 9:00 AM EDT Office Visit Hematology/Oncology [facility] [place] [address] [place] [phone] Kanu Maravilla MD [address] [facility] [place] [address] 11/06/2024 10:40 AM EDT Office Visit [facility] [address] [facility] [address] Malinda [facility] CRNP [address] [facility] [address] 04/27/2025 2:40 PM EST Telemedicine Endocrinology [place] [...] encounter Medical Devices Implanted Type Area Metal Die Finisher Device Identifier Shelf Expiration Date Model / Serial / Lot Stent Angulo 4fr 11cm - [id number] Implanted:Qty : 1 on 02/08/2024 by Jeffrey Kerr MD at [facility] [employer] [id number] 08/16/2028 [id number] / / [id number] Description:https://www.doct ordoctor.biz/search/Detail.aspx?result=0 JLS 09/04/2024 Non metallic Port Implant W8f Poly Cath - [id number] Implanted:Qty : 1 on 05/02/2024 by Iam Curry MD at [facility] Right: Chest CR BARD : PERIPHERAL VASCULAR [id number] 05/17/2025 [id number] / / [id number] documented as of this encounter Visit Diagnoses Diagnosis 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
--- OUTSIDE RECORDS SUMMARY | 2024-11-01 03:39 | External Medical Summary | Summary of Care ---
Author Name Unknown Organization [facility] Address [address] [facility] [address] Phone [phone] Care Team Providers Care Vice President Of Communications Name Role Phone Malinda Owens Primary Care Provider [phone] Reason for Visit * Reason Comments Acute Patient presents in office today for concerns with Anxiety and medication review. Encounter Details Date Type Department Care Team (Late st Contact Info) Description 10/10/2024 9:20 AM EDT Office Visit [place] [address] [place] [address] Jorge Gerard MD [address] [place] [address] IGNACIO (generalized anxiety disorder)*; Panic attack; Adjustment disorder with anxious mood; Triple negative breast cancer (HCC) Allergies No known active allergiesdocumented as of this encounter (statuses as of 10/10/2024) Medications 19 29-1 MG Oral Tablet Chewable [...] Active Additional Information Patient not taking.Reported on 10/10/2024 Lidocaine-Priloca ine 2.5-2.5 % External Cream (Emla)Indications [...] Active Additional Information Patient not taking.Reported on 10/10/2024 Diphenoxylate-Atr opine 2.5-0.025 MG Oral Tablet (Lomotil)Indicati [...] morning. 30 Capsule 5 10/11/19 25 Active LORazepam 0.5 MG Oral Tablet (Ativan)Indicatio ns:Malignant neoplasm of upper-outer quadrant of left breast in female, estrogen receptor negative (HCC),Dehydration ,Anxiety Take 1 Tablet by mouth every 8 hours as needed for Anxiety. 30 Tablet 10/08/19 25 025 Disconti nued(Med ication/ Dose Changed) documented as of this encounter (statuses as of 10/10/2024) Active Problems Problem Noted Date Diagnosed Date [...] as of this encounter (statuses as of 10/10/2024) Resolved Problems Problem Noted Date Diagnosed Date [...] and class I obesity. Per review of BUSH REGENERATOR documentation of 09/25/23, blood glucose values have [...] Recommend nutrition consult with RDN (Registered Dietitian Security Administrator). Lifestyle changes are also indicated including optimizing [...] and folate levels and referral to a brainer. If hemoglobin levels are below 8 g/dl, we recommend Maternal Medicine ultrasound for growth every 4 weeks after 24 weeks. Consider a blood transfusion if hemoglobin levels fall below 6 g/dL. ([employer] Conditioning Coach Practice Bulletin Number 95, December,). Consider Venofer transfusions if patient labs supportive of iron deficiency anemia with dosing of 300 mg IV weekly x 3 weeks Abnormal glucose tolerance i n mother complicating 04/19/2023 08/31/2023 Overview (04/19/2023): Failed early glucola. 3hr GTT ordered Encounter for supervision of other normal , unspecified trimester 04/03/2023 025 documented as of this encounter (statuses as of 10/10/2024) Immunizations Name Administration Dates Next Due DTP [...] money to get more. 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 "I have reviewed the patient's controlled substance dispensing history in the Prescription Drug Monitoring Program in compliance with the [facility] regulations before prescribing a controlled substance." Subjective Yuli Gutierrez is a 29 year old female presenting for Acute (Patient presents in office today for concerns with Anxiety and medication review.) Here w/, Justin Gutierrez. History of Present Illness Yuli, a patient with a history of anxiety and currently undergoing breast cancer treatment, presents with worsening anxiety and panic attacks over the past month. She reports feeling "off" and experiencing episodes of crying, hyperventilation, and intrusive thoughts about her [id number] daughter, Ginger being taken from her. These symptoms have been disruptive to her daily life and have caused significant distress. She has been taking lorazepam proactively, 0.5mg BID from her oncologist, which she reports has helped to take the edge off her anxiety but has not eliminated her panicattacks. She is currently seeing a therapist, Em Kang, a couple of times a month, telemed. No prior dx IGNACIO or MDD. No preventive meds in past. Ongoing nausea, decreased taste. Smell ok per pt. Past Medical History: Diagnosis Date Breast cancer (HCC) 04/15/2024 invasive mammary carcinoma of no special type, grade 3. Diet controlled gestational diabetes mellitus (GDM) in third trimester 09/20/2023 09/20/23 Repeated 3hr GTT at 33w d/t LGA, failed. MFM referral placed for ADAPT. Diagnosed at 33 weeks Nutrition consult 09/24/23 Lab Results Component Value Date/Time 50-G GESTATIONAL GLUCOSE, 1 HOUR -[facility] 169 (H) 04/19/2023 09:23 AM 100-G GESTATIONAL GLUCOSE, 1 HOUR - [facility] 216 (H) 09/19/2023 01:52 PM 100-G GESTATIONA History of gestational diabetes Motion sickness not suicidal or homocidal, contracts for safety Current Outpatient Medications Medication Sig Dispense Refill LORazepam 1 MG Oral Tablet (Ativan) Take 1 Tablet by mouth 3 times a day as needed for Anxiety. 30 Tablet 0 FLUoxetine HCl 20 MG Oral Capsule (PROzac) Take 1 Capsule by mouth in the morning. 30 Capsule 5 19 29-1 MG Oral Tablet Chewable Take [...] 1 Tablet before bedtime. 60 Tablet 0 No current facility-administered medications for this visit. Objective BP 102/66 | Pulse 82 | Resp 16 | Ht 5' 5" (1.651 m) | SpO2 98% | BMI 33.30 kg/m² | BSA 2.04 m² Physical Exam Gen NAD Lungs CTA bl CV RRR +s1,2 no murmurs Port R upper chest Psych- as above-down mood normal affect, tearful at times, +anxiety no SIHI IJ good IGNACIO 17 PHQ9 10 Results Assessment and Plan Assessment & Plan Generalized anxiety disorder with panic attacks Increased anxiety and panic attacks, exacerbated by stressors including cancer treatment and medication side effects. Lorazepam provides partial relief. Discussed lorazepam's habit-forming potential and side effects. Discussed starting fluoxetine, noting delayed onset and potential side effects. - Increase lorazepam to 1 mg twice daily as needed. - Start fluoxetine 20 mg daily. - Encourage CBT with therapist. - Consider using apps like [employer] or Calm. Counseled on use, risk, benefits, and alternatives of medications. Questions answered, patient expressed understanding. Adjustment disorder with mixed anxiety and depressed mood Anxiety and depression symptoms likely related to cancer treatment and changes. Discussed benefits of combining medication with therapy. - Continue therapy with Brittanie Kang, increase to weekly sessions if possible. - Monitor mood and anxiety symptoms with therapy and medication adjustments. Use of hydrocortisone for adrenal insufficiency Hydrocortisone necessary to prevent adrenal crisis, especially during illness. - Double hydrocortisone dose for three days during illness or fever. Nausea due to chemotherapy Significant nausea from chemotherapy. Current management includes olanzapine, which may aid appetite. - Continue olanzapine regimen. - Encourage small, frequent meals and protein intake. Follow-up Follow-up needed to assess response to new medication regimen and therapy. - Schedule follow-up in one month to assess response to fluoxetine and symptom management. IGNACIO (generalized anxiety disorder) (Primary) - LORazepam 1 MG Oral Tablet (Ativan); Take 1 Tablet by mouth 3 times a day as needed for Anxiety. - FLUoxetine HCl 20 MG Oral Capsule (PROzac); Take 1 Capsule by mouth in the morning. Panic attack - LORazepam 1 MG Oral Tablet (Ativan); Take 1 Tablet by mouth 3 times a day as needed for Anxiety. - FLUoxetine HCl 20 MG Oral Capsule (PROzac); Take 1 Capsule by mouth in the morning. Adjustment disorder with anxious mood - FLUoxetine HCl 20 MG Oral Capsule (PROzac); Take 1 Capsule by mouth in the morning. Triple negative breast cancer (HCC) Wrap-Up Follow Up: Return in about 4 weeks (around 11/07/2024) for Return with AP. | For: Return with AP | Check-out note: Sanga med ck 1mo prozac I spent a total of 30-39 minutes (exact time 33 mins) on the date of service in preparation, delivery, and documentation of the care provided to Yuli Gutierrez excluding any time spent in the performance of separately billed services. Text in this note was generated using an ambient documentation service. I discussed the use of a device to record and summarize our discussion today. All persons present during the encounter consented to its use. Cc: PCP Dr Taiwo Miranda documented in this encounter Nursing Notes * Dorothy Botello MED ASSIST - 10/10/2024 9:22 AM EDT The patient has been properly identified by confirmation of name and date of . Chief Complaint Patient presents with Acute Patient presents in office today for concerns with Anxiety and medication review. documented in this encounter Plan of Treatment Upcoming Encounters Date Type Department Care Team (Late st Contact Info) Description 10/16/2024 8:30 AM EDT Nurse Only Hematology/Oncology Treatment, [address], [place] [phone] [place], Chair 5 Hem Onc Scene 200 [facility] [place] [address] 10/16/2024 9:00 AM EDT Office Visit Hematology/Oncology [facility] [address] [place] [phone] Gabby [facility]avala [facility] [address] [facility] [address] 10/16/2024 9:30 AM EDT Hem/Onc Treatment Hematology/Oncology Treatment, [place] [address] [facility], [place] [address] [place], Chair 2 Hem Onc [address] [place] [address] 10/30/2024 9:00 AM EDT Office Visit Hematology/Oncology [facility] [address] [facility] [place] [address] Kanu Maravilla MD [address] [place] [address] 11/06/2024 10:40 AM EDT Office Visit [place] [address] [place] [address] Malinda Owesn CRNP [address] [place] [address] 04/27/2025 2:40 PM EST Telemedicine Endocrinology [place] [...] this encounter Medical Devices Implanted Type Area Sap Specialist Device Identifier Shelf Expiration Date Model / Serial / Lot Therese Angulo 4fr 11cm - [id number] Implanted:Qty : 1 on 02/08/2024 [facility] [id number] 08/16/2028 [id number] / / [id number] Description:https://www.doct ordoctor.biz/search/Detail.aspx?result=0 JLS 09/04/2024 Non metallic Port Implant W8f Poly Cath - [id number] Implanted:Qty : 1 on 05/02/2024 by Iam Curry MD at [facility] Right: Chest CR BARD : PERIPHERAL VASCULAR [id number] 05/17/2025 [id number] / / [id number] documented as of this encounter Visit Diagnoses Diagnosis IGNACIO (generalized anxiety disorder)- Primary Generalized anxiety disorder Panic attack Panic disorder without agoraphobia Adjustment disorder with anxious mood Adjustment disorder with anxiety Triple negative breast cancer (HCC) documented in this encounter Care Teams Vice President Of Communications Relationship Specialty Start Date End Date Malinda Owens CRNP [address] [place] [address] PCP - General Nurse Practitioner 09/20/23 documented as of this encounter
--- OUTSIDE RECORDS SUMMARY | 2024-11-01 03:39 | External Medical Summary ---
Author Name Unknown Address Unknown Organization K09:[facility] [address] [place] [address] Laboratory Report Ordering Provider Test Date Status JASMINE JANSEN 10/16/2024 08:57:13 Final Observation Date Value Abnormality Reference (Units ) Status BUN 10/16/2024 08:57:13 7 6-20 (mg/dL) Final Creatinine 10/16/2024 08:57:13 0.8 0.5-1.0 (mg/dL) Final Glomerular filtration rate/1.73 sq M.predicted [Volume Rate/Area] in Serum, Plasma or Blood by Creatinine-based formula (CKD-EPI) 10/16/2024 08:57:13 >90 >=60 (mL/min) Final eGFR is calculated based on the CKD-EPI 2020 equation. Sodium 10/16/2024 08:57:13 140 135-146 (m mol/L) Final Potassium 10/16/2024 08:57:13 3.8 3.5-5.1 (m mol/L) Final Cl 10/16/2024 08:57:13 106 98-107 (mm ol/L) Final CO2 10/16/2024 08:57:13 22 22-32 (mmo l/L) Final Anion gap 10/16/2024 08:57:13 12 7-15 (mmol /L) Final Glucose 10/16/2024 08:57:13 79 70-120 (mg /dL) Final Albumin 10/16/2024 08:57:13 4.5 3.8-5.0 (g /dL) Final AST (Aspartate aminotransferase) 10/16/2024 08:57:13 36 Above high normal 10-35 (U/L) Final Alk Phos 10/16/2024 08:57:13 60 35-130 (U/ L) Final Bilirubin, Total 10/16/2024 08:57:13 0.6 <=1 .2 (mg/dL) Final Calcium 10/16/2024 08:57:13 9.6 8.4-10.2 ( mg/dL) Final Protein 10/16/2024 08:57:13 6.7 6.0-8.3 (g /dL) Final ALT (Alanine aminotransferase) 10/16/2024 08:57:13 48 Above high normal 10-35 (U/L) Final Performing Location [facility]- [address] [place] [address]
--- OUTSIDE RECORDS SUMMARY | 2024-11-01 03:39 | External Medical Summary ---
Author Name Unknown Address Unknown Organization [id number] [place] [address] [place] [address] Laboratory Report Ordering Provider Test Date Status JASMINE JANSEN 10/16/2024 08:57:13 Final Observation Date Value Abnormality Reference (Units ) Status TSH 10/16/2024 08:57:13 1.12 0.27-4.20 (uIU/mL) Final Performing Location [facility] [place] [address] [place] [address]
--- OUTSIDE RECORDS SUMMARY | 2024-11-01 03:39 | External Medical Summary | Summary of Care ---
Author Name Unknown Organization [facility] Address [address] [place] [facility] [place] [address] Phone [phone] Care Team Providers Care Infant Babysitter Name Role Phone Malinda Owens Primary Care Provider [phone] Reason for Visit * Reason Onset Date Comments Medication Refill 10/04/2024 Encounter Details Date Type Department Care Team (Late st Contact Info) Description 10/04/2024 Refill Hematology/Oncology [facility] [place] [address] [facility] [place] [phone] Inderjit Maravilla MD [address] [facility] [place] [address] Malignant neoplasm of upper-outer quadrant of left [...] class I obesity. Per review of MANAGER OF CLINICAL documentation of 09/25/23, blood glucose values have [...] Recommend nutrition consult with RDN (Registered Dietitian Human Resources Support Specialist). Lifestyle changes are also indicated [...] folate levels and referral to a electronic security specialist. If hemoglobin levels are below 8 g/dl, we recommend Maternal Medicine ultrasound for growth every 4 weeks after 24 weeks. Consider a blood transfusion if hemoglobin levels fall below 6 g/dL. ([employer] Manager [employer] Practice Bulletin Number 95, December,). Consider Venofer [...] money to get more. Never true 03/26/2024 [place] Depression Scale Answer Date Recorded [place] Depression Scale Total 6 12/11/2023 The [...] below: Last refill: Prescribed at discharge from [facility] 09/09/2024: Magnesium level: 1.8 Last seen: 09/18/2024 Patient was admitted to [facility] 09/05/24 - 09/08/24 for febrile neutropenia. [...] Hydrocortisone 20 mg both were sent to [facility] on [facility] with 5 refills for each prescription. She voiced understanding and will contact [facility] for the refills. She is requesting if [...] Oral Tablet (Cortef) 30 Tab*5 Sig: Take 1tablet in the early afternoon Hydrocortisone 20 MG Oral Tablet (Cortef) 30 Tab*5 Sig: Take 1 Tabletby mouth in the morning. documented in this encounter Plan of Treatment Upcoming Encounters Date Type Department Care Team (Late st Contact Info) Description 10/09/2024 7:45 AM EDT Nurse Only Hematology/Oncology Treatment, [address] [place] [phone] [place], Chair 1 Hem Onc [address] [place] [address] 10/09/2024 8:00 AM EDT Office Visit Hematology/Oncology [facility] [address] [place] [phone] Gabby Zavala CRNP [address] [place] [address] 10/09/2024 8:30 AM EDT Hem/Onc Treatment Hematology/Oncology Treatment, [address] [place] [phone] [place], Chair 11 Hem Onc [address] [place] [address] 10/30/2024 9:00 AM EDT Office Visit Hematology/Oncology [facility] [place] [address] [place] [phone] Inderjit Maravilla MD [address] [facility] [place] [place] [address] 04/27/2025 2:40 PM EST Telemedicine Endocrinology [place] [...] encounter Medical Devices Implanted Type Area Supervisor Concrete Block Plant Device Identifier Shelf Expiration Date Model / Serial / Lot Stent Kev 4fr 11cm - [id number] Implanted:Qty : 1 on 02/08/2024 by Jeffrey Kerr MD at [facility] DC [employer] [facility] [id number] 08/16/2028 [id number] / / [id number] Description:https://www.doct ordoctor.biz/search/Detail.aspx?result=0 JLS 09/04/2024 Non metallic Port Implant W8f Poly Cath - [id number] Implanted:Qty : 1 on 05/02/2024 by Iam Curry MD at [facility] Right: Chest CR BARD : PERIPHERAL VASCULAR [id number] 05/17/2025 [id number] / / [id number] documented as of this encounter Visit Diagnoses Diagnosis Malignant neoplasm of upper-outer quadrant of left breast in female, estrogen receptor negative (HCC) Encounter for antineoplastic chemotherapy documented in this encounter Care Teams Infant Babysitter Relationship Specialty Start Date End Date Malinda Owens CRNP [address] [facility] [place] [address] PCP - General Nurse Practitioner 09/20/23 documented as of this encounter
--- OUTSIDE RECORDS SUMMARY | 2024-11-01 03:39 | External Medical Summary ---
Author Name Unknown Address Unknown Organization K01:[facility] [place] [address] [facility] [address] [place] [address] Laboratory Report Ordering Provider Test Date Status PETERS,AMALIA 10/09/2024 09:02:54 Final Observation Date Value Abnormality Reference (Units ) Status TSH 10/09/2024 09:02:54 4.63 Above high normal 0. 27-4.20 (uIU/mL) Final Performing Location [facility] - [address] [place] [address]
--- OUTSIDE RECORDS SUMMARY | 2024-11-01 03:39 | External Medical Summary | Summary of Care ---
Author Name Unknown Organization [facility] Address [address] [place] [place] [address] Phone [phone] Care Team Providers Care Neonatal Nurse Name Role Phone Malinda Owens Primary Care Provider [phone] Reason for Visit * Reason Comments Outpatient Testing Encounter Details Date Type Department Care Team (Late st Contact Info) Description 10/09/2024 9:10 AM EDT Laboratory Laboratory, [facility] [place] [phone] [facility] 132 [place] [address] Adrenal insufficiency (HCC); Immunotherapy Allergies No known active allergiesdocumented as of this encounter (statuses as of 10/09/2024) Medications 19 29-1 MG Oral Tablet Chewable [...] Additional Information Patient not taking.Reported on 09/12/2024 Lidocaine-Prilocai ne 2.5-2.5 % External Cream (Emla)Indications: [...] Additional Information Patient not taking.Reported on 09/12/2024 Diphenoxylate-Atro pine 2.5-0.025 MG Oral Tablet (Lomotil)Indicatio [...] bedtime. 60 Tablet 10/07/19 25 Active LORazepam 0.5 MG Oral Tablet (Ativan)Indication s:Malignant neoplasm of upper-outer quadrant of left breast in female, estrogen receptor negative (HCC),Dehydration, Anxiety Take 1 Tablet by mouth every 8 hours as needed for Anxiety. 30 Tablet 10/08/19 25 Active documented as of this encounter (statuses as of 10/09/2024) Active Problems Problem Noted Date Diagnosed Date [...] as of this encounter (statuses as of 10/09/2024) Resolved Problems Problem Noted Date Diagnosed Date [...] and class I obesity. Per review of RIB CUTTER documentation of 09/25/23, blood glucose values [...] nutrition consult with RDN (Registered Dietitian Lead Applications Developer). Lifestyle changes are also indicated including [...] and folate levels and referral to a antique furniture restorer. If hemoglobin levels are below 8 g/dl, we recommend Maternal Medicine ultrasound for growth every 4 weeks after 24 weeks. Consider a blood transfusion if hemoglobin levels fall below 6 g/dL. ([employer] and Social Director Practice Bulletin Number 95, December,). Consider Venofer transfusions if patient labs supportive of iron deficiency anemia with dosing of 300 mg IV weekly x 3 weeks Abnormal glucose tolerance i n mother complicating 04/19/2023 08/31/2023 Overview (04/19/2023): Failed early glucola. 3hr GTT ordered Encounter for supervision of other normal , unspecified trimester 04/03/2023 025 documented as of this encounter (statuses as of 10/09/2024) Immunizations Name Administration Dates Next Due DTP [...] money to get more. Never true 03/26/2024 Senatobia Depression Scale Answer Date Recorded Senatobia Depression Scale Total 6 12/11/2023 The thought [...] No 03/26/2024 Does the household have a [facility] hospitallar source of income? 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 Not on file Not on file Not on file documented as of this encounter Plan of Treatment Upcoming Encounters Date Type Department Care Team (Late st Contact Info) Description 10/16/2024 8:30 AM EDT Nurse Only [facility]ology[facility] [place] [facility] [phone] [place], Chair 5 Hem [facility] 200 [facility] [place] [address] 10/16/2024 9:00 AM EDT Office Visit Hematology/Oncology [facility] [address] [facility] [place] [phone] Gabby Zavala CRNP [address] [place] [address] [place] [address] 10/16/2024 9:30 AM EDT Hem/Onc Treatment [facility]ematology[facility] [place] [facility] [phone] [place], Chair 2 Hem Onc [address] [place] [address] 10/30/2024 9:00 AM EDT Office Visit Hematology/Oncology [facility] [address] [facility] [place] [phone] Kanu Maravilla MD [address] [facility] [place] [address] 04/27/2025 2:40 PM EST Telemedicine Endocrinology [address] [place] [phone] Orlin Miranda MD [address] [place] [address] Pending Results Name Type Priority Associated Diagnoses Date /Time ADRENOCORTICOTROPIC HORMONE Lab Routine Adrenal insufficiency (HCC) 10/09/2024 9:02 AM EDT CORTISOL Lab Routine Adrenal insufficiency (HCC) 10/09/2024 9:02 AM EDT TSH Lab Routine Immunotherapy 10/09/2024 9:02 AM EDT T4, FREE Lab Routine Immunotherapy 10/09/2024 9:02 AM EDT IGF-1, LC/MS Lab Routine Immunotherapy 10/09/2024 9:02 AM EDT Health Maintenance Due Date Last [...] this encounter Medical Devices Implanted Type Area Hand Molder And Caster Device Identifier Shelf Expiration Date Model / Serial / Lot Stent Kev 4fr 11cm - [id number] Implanted:Qty : 1 on 02/08/2024 by [facility] [id number] 08/16/2028 [id number] / / [id number] Description:https://www.doct ordoctor.biz/search/Detail.aspx?result=0 JLS 09/04/2024 Non metallic Port Implant W8f Poly Cath - [id number] Implanted:Qty : 1 on 05/02/2024 by Iam Curry MD at OR [facility] Right: Chest CR BARD : PERIPHERAL VASCULAR [id number] 05/17/2025 [id number] / / [id number] documented as of this encounter Visit Diagnoses Diagnosis Adrenal insufficiency (HCC) Glucocorticoid deficiency Immunotherapy documented in this encounter Care Teams Neonatal Nurse Relationship Specialty Start Date End Date Malinda Owens CRNP [address] [facility] [place] [address] PCP - General Nurse Practitioner 09/20/23 documented as of this encounter
--- OUTSIDE RECORDS SUMMARY | 2024-11-01 03:39 | External Medical Summary ---
Author Name Unknown Address Unknown Organization : Laboratory Report Ordering Provider Test Date Status AMALIA PETERS 10/09/2024 09:02:54 Final Observation Date Value Abnormality Reference (Units ) Status IGF-1,LCMS 10/09/2024 09:02:54 137 53-331 (n g/mL) Final Z-SCORE (MALE) 10/09/2024 09:02:54 DNR (SD) Final Z-SCORE (FEMALE) 10/09/2024 09:02:54 -0.3 -2. 0 - +2.0 (SD) Final This test was developed and its analytical
performance characteristics have been determined
by [employer]. It has not been cleared or
approved by the FDA. This assay has been validated
pursuant to the CLIA regulations and is used for
clinical purposes.
Test performed by [email or web address]
[address],
[place] [address]

Continuous Process Machine Operator: Lauren Aguilar MD,PHD,SJ
Test Reported by [facility],
[place],
[address] [place], [place]
Laron Dawn M.D., Ph.D., Director of Laboratories
, CLIA [id number] Performing Location
--- OUTSIDE RECORDS SUMMARY | 2024-11-01 03:39 | External Medical Summary | Summary of Care ---
Author Name Unknown Organization [facility] Address [address] [place] [facility] [place] [address] Phone [phone] Care Team Providers Care Biztalk Architect Name Role Phone Malinda Owens Primary Care Provider [phone] Reason for Visit * Reason Onset Date Comments Medication Refill 10/04/2024 Encounter Details Date Type Department Care Team (Late st Contact Info) Description 10/04/2024 Refill Hematology/Oncology [facility] [place] [address] [place] [phone] Inderjit Maravilla MD [address] [place] [address] Malignant neoplasm of upper-outer quadrant of left [...] Enrolled in Current Health. Plans to pickle cutter meter from pharmacy today. Instructions provided to [...] and class I obesity. Per review of PROVIDER RELATIONS MANAGER documentation of 09/25/23, blood glucose values [...] Recommend nutrition consult with RDN (Registered Dietitian Printed Circuit Boards Contact Printer). Lifestyle changes are also indicated including optimizing [...] and folate levels and referral to a rotary dryer operator. If hemoglobin levels are below 8 g/dl, we recommend Maternal Medicine ultrasound for growth every 4 weeks after 24 weeks. Consider a blood transfusion if hemoglobin levels fall below 6 g/dL. ([employer] and [employer] W[employer] Practice Bulletin Number 95, December,). Consider [...] money to get more. Never true 03/26/2024 Stafford Depression Scale Answer Date Recorded Stafford Depression Scale Total 6 12/11/2023 The thought [...] below: Last refill: Prescribed at discharge from [facility] 09/09/2024: Magnesium level: 1.8 Last seen: 09/18/2024 Patient was admitted to [facility] 09/05/24 - 09/08/24 for febrile neutropenia. Infectious [...] Hydrocortisone 20 mg both were sent to [facility] on [address] [facility] with 5 refills for each prescription. She voiced understanding and will contact [facility] for the refills. She is requesting [...] 7:45 AM EDT Nurse Only Hematology/Oncology Treatment, [address] [place] [phone] L[place], Chair 1 Hem Onc [address] [place] [address] 10/09/2024 8:00 AM EDT Office Visit [facility] [address] [place] [phone] Gabby Zavala CRNP [address] [place] [address] 10/09/2024 8:30 AM EDT Hem/Onc Treatment Hematology/Oncology Treatment, [address] [place] [phone] [place], Chair 11 Hem Onc [address] [place] [address] 10/30/2024 9:00 AM EDT Office Visit Hematology/Oncology [facility] [place] [address] [place] [phone] Inderjit Maravilla MD [address] [facility] [place] [address] 04/27/2025 2:40 PM EST Telemedicine Endocrinology Kyrie [...] this encounter Medical Devices Implanted Type Area Surgical Services Coordinator Device Identifier Shelf Expiration Date Model / Serial / Lot Stent Kev 4fr 11cm - [id number] Implanted:Qty : 1 on 02/08/2024 by Jeffrey Kerr MD at OR [facility] [email or web address] [facility] [id number] 08/16/2028 [id number] / / [id number] Description:https://www.doct ordoctor.biz/search/Detail.aspx?result=0 JLS 09/04/2024 Non metallic Port Implant W8f Poly Cath - [id number] Implanted:Qty : 1 on 05/02/2024 by Iam Curry MD at OR [facility] Right: Chest CR BARD : PERIPHERAL VASCULAR [id number] 05/17/2025 [id number] / / [id number] documented as of this encounter Visit Diagnoses Diagnosis Malignant neoplasm of upper-outer quadrant of left breast in female, estrogen receptor negative (HCC) Encounter for antineoplastic chemotherapy documented in this encounter Care Teams Biztalk Architect Relationship Specialty Start Date End Date Malinda Owens CRNP 132 [facility] [place] [address] PCP - General Nurse Practitioner 09/20/23 documented as of this encounter
--- OUTSIDE RECORDS SUMMARY | 2024-11-01 03:39 | External Medical Summary | Summary of Care ---
Author Name Unknown Organization [facility] Address [address] [facility] [place] [address] Phone [phone] Care Team Providers Care Wiper Blender Name Role Phone Malinda Owens Primary Care Provider [phone] Reason for Visit * Reason Onset Date Comments Advice 10/16/2024 Encounter Details Date Type Department Care Team (Late st Contact Info) Description 10/16/2024 Telephone Hematology/Oncology [facility] [place] [address] [facility] [place] [phone] Kanu Maravilla MD 200 [facility] [place] [address] Advice Allergies No known active allergiesdocumented as [...] and class I obesity. Per review of FURNITURE TECHNICIAN documentation of 09/25/23, blood glucose values [...] Recommend nutrition consult with RDN (Registered Dietitian Warp Knitter Helper). Lifestyle changes are also indicated including [...] and folate levels and referral to a insurance claims adjuster. If hemoglobin levels are below 8 g/dl, we recommend Maternal Medicine ultrasound for growth every 4 weeks after 24 weeks. Consider a blood transfusion if hemoglobin levels fall below 6 g/dL. ([employer] and Electric Meter Reader Practice Bulletin Number 95, December,). Consider Venofer [...] money to get more. 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 Not on [...] 8:00 AM EDT Nurse Only Hematology/Oncology Treatment, [place] [address] [place] [phone] [place], Chair 1 Hem Onc [place] [facility] [address] 10/20/2024 8:45 AM EDT Hem/Onc Treatment Hematology/Oncology Treatment, [place] [address] [place] [address] Park, Chair 7 Hem Onc [facility] 200 [facility] [place], [place] [address] 10/30/2024 9:00 AM EDT Office Visit Hematology/Oncology [facility] [place] [address] [place] [phone] Kanu Maravilla MD 200 [facility] [place] [address] 11/06/2024 10:40 AM EDT Office Visit [facility] [address] [facility] [address] Malinda Owens CRNP [address] [facility] [address] 04/27/2025 2:40 PM EST Telemedicine Endocrinology Kyrie [...] this encounter Medical Devices Implanted Type Area Workforce Planner Device Identifier Shelf Expiration Date Model / Serial / Lot Stent Angulo 4fr 11cm - [id number] Implanted:Qty : 1 on 02/08/2024 by Jeffrey Kerr MD at OR [facility] [employer] [id number] 08/16/2028 [id number] / / [id number] Description:https://www.doct ordoctor.biz/search/Detail.aspx?result=0 JLS 09/04/2024 Non metallic Port Implant W8f Poly Cath - [id number] Implanted:Qty : 1 on 05/02/2024 by Iam Curry MD at OR [facility] Right: Chest CR BARD : PERIPHERAL VASCULAR [id number] 05/17/2025 [id number] / / [id number] documented as of this encounter Visit Diagnoses Diagnosis 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
--- OUTSIDE RECORDS SUMMARY | 2024-11-01 03:39 | External Medical Summary ---
Author Name Unknown Address Unknown Organization K09:[facility] [place] [address] Laboratory Report Ordering Provider Test Date Status JASMIEN JANSEN 10/16/2024 08:57:13 Final Observation Date Value Abnormality Reference (Units ) Status WBC, Total 10/16/2024 08:57:13 3.72 Below low normal 4. 00-10.80 (K/uL) Final RBC 10/16/2024 08:57:13 3.26 3.85-5.15 (M/uL) Final Hemoglobin 10/16/2024 08:57:13 10.7 Below low normal 12 .0-15.3 (g/dL) Final HCT 10/16/2024 08:57:13 32.9 Below low normal 36. 0-45.2 (%) Final MCV 10/16/2024 08:57:13 100.9 81.5-97.5 (fL) Final MCH 10/16/2024 08:57:13 32.8 27.0-34.0 (pg) Final MCHC 10/16/2024 08:57:13 32.5 32.0-36.0 (g/dL) Final RDW 10/16/2024 08:57:13 14.3 11.5-15.5 (%) Final Platelets 10/16/2024 08:57:13 215 140-400 (K /uL) Final MPV 10/16/2024 08:57:13 9.1 6.6-11.1 ( fL) Final Performing Location [facility] [place] [address]
[2024-11-01] MEDS: PIPERACILLIN/TAZOBACTAM 4.5 GM/100 ML BAG IV SCH (04:08)
[2024-11-01] MEDS: SODIUM CHLORIDE 0.9% 1,000 ML IV ONE (04:35)
[2024-11-01 07:41] LABS: Hematocrit (blood only) 24.4 % (37.0-47.0); Hemoglobin 8.6 g/dl (12.0-16.0); Mean Corpuscular Hemoglobin 32.6 pg (25.0-34.0); Mean Corpuscular Hgb Conc 35.2 g/dL (32.0-36.0); Mean Corpuscular Volume 92.4 fL (80.0-100.0); Mean Platelet Volume 11.2 fL (9.4-12.4); Neutrophils # (auto) < 0.50 K/uL (1.40-6.50); Platelet Count 24 K/uL (130-400); RDW Coefficient of Variation 12.2 % (11.5-14.5); RDW Standard Deviation 39.7 fL (36.4-46.3); Red Blood Count 2.64 M/uL (4.20-5.40); White Blood Count 0.31 K/ul (4.8-10.8)
[2024-11-01 07:48] LABS: BUN Creatinine Ratio 12.5 (10-20); Calcium 8.9 mg/dl (8.6-10.3); Creatinine Clr Calc Pharmacy 112.3 ml/min; Potassium 4.2 mmol/L (3.5-5.1)
[2024-11-01 07:57] LABS: Dohle Bodies 1+; Polychromasia 1+; Tear Drop Cells 1+
[2024-11-01] MEDS: SODIUM CHLORIDE 0.9% 1,000 ML IV SCH (08:14)
[2024-11-01] MEDS: OLANZapine 5 MG TABLET PO PRN (08:15)
[2024-11-01] MEDS: HYDROCORTISONE 10 MG TAB PO SCH (08:15)
[2024-11-01] MEDS: FLUoxetine HCL 20 MG CAP PO SCH (08:16)
[2024-11-01 12:18] LABS: Bacterial Vaginosis RNA POSITIVE (Negative)
[2024-11-01 12:28] LABS: Candida glabrata RNA Negative (Negative); Candida species group RNA Negative (Negative); Trichomonas vaginalis RNA Negative (Negative)
[2024-11-01 12:49] LABS: Mycoplasma Genitalium RNA Negative (Negative)
[2024-11-01 12:55] LABS: Chlam trach RNA(Genit,Ureth,Ur Not Detected (NotDetected); GC(Neis gon)RNA(Genit,Ureth,Ur Not Detected (NotDetected)
[2024-11-01] MEDS: HYDROCORTISONE SOD 50 MG in SYRINGE 0 ML IV SCH (13:06)
--- NOTE | 2024-11-01 13:56 | Hospitalist Progress Note ---
Date of Service November 01, 2024 Assessment & Plan (1) Immunosuppressed due to chemotherapy: (2) Triple negative breast cancer: (3) Primary adrenal insufficiency: (4) Hypomagnesemia: Plan Febrile Neutropenia Immunocompromise state Suspected sepsis Diarrhea/enteritis Left labial blister --Chest CTA:No pulmonary embolism or pneumonia seen. --CT ABD:Diffusely fluid-filled large bowel and several loops of small bowel compatible with enteritis and a diarrheal illness. No substantial bowel wall thickening. -- UA within normal limits --Respiratory panel negative --Blood, urine, labial culture pending --Will check stool studies if recurrence of diarrhea --Empirically on daptomycin, Zosyn Follow-up serological studies Monitor CBC closely Continue neutropenic precautions Will consider oncology evaluation if needed Adrenal insufficiency--POA Random cortisol level 0.49 Hold home oral hydrocortisone Continue IV hydrocortisone Will check a.m. 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 Currently completed phase 1 of the treatment, (Paclitaxel, carboplatin, Keytruda). Keytruda stopped. One more round to go to complete phase 2. - Current Regimen: Actively on Phase 2, Adriamycin, cyclophosphamide. Last round completed on 10/23/24. Had pefilgrastim on 10/24 -- will last 14 days for the GCSF - Last MRI on 09/07 was negative - Follow up with [facility] for surgical and plastics referral for possible left lumpectomy. DVT Px: teds, scds Re: Thrombocytopenia CODE STATUS: Full code Admission and Anticipated Discharge Date Admission Date: October 31, 2024 Subjective Patient is seen and examined at bedside States feeling better today Had 1 loose bowel movement today Also reports left labial blister Denies any chest pain, dyspnea, cough, dizziness, Abdominal pain Discussed with patient's family at bedside Review of Systems Review of Systems: All systems reviewed & are unremarkable except as noted in Subjective Physical Exam Physical Exam: Physical Exam: Vitals signs as noted above General Appearance:Moderately built and nourished, no apparent distress Head: normocephalic, Atraumatic Eyes: normal inspection, EOMI Neck: supple, Trachea midline Respiratory/Chest: Normal breath sounds, CTA, No accessory muscle use Cardiovascular: S1, S2, No murmur Abdomen/GI:Soft, Non tender, Bowel sounds present Extremities/Musculoskeletal:normal inspection, no edema Neurologic/Psych:AAOX3, grossly no focal neurological deficits Skin: normal color, warm Results & Data Results & Data Vital Signs (Past 12 Hours) Vital Signs Temp Pulse Pulse Pulse Resp BP Pulse Ox 11/01/24 11:30 36.3 C L 73 16 93/61 L 98 11/01/24 10:56 74 11/01/24 08:00 74 11/01/24 07:56 36.3 C L 62 16 91/56 L 96 11/01/24 03:34 36.3 C L 83 18 109/70 97 O2 Del Method 11/01/24 11:30 Room Air 11/01/24 10:56 11/01/24 08:00 11/01/24 07:56 Room Air 11/01/24 03:34 Room Air Laboratory Results Short CBC 10/31/24 11/01/24 Range/Units 14:22 07:05 WBC 0.74 L* 0.31 L* (4.8-10.8) K/ul Hgb 8.3 L 8.6 L (12.0-16.0) g/dl Hct 23.9 L 24.4 L (37.0-47.0) % Plt Count 25 L* 24 L* (130-400) K/uL BMP 10/31/24 11/01/24 14:22 07:05 Sodium 136 136 Potassium 4.0 4.2 Chloride 105 107 Carbon Dioxide 25 21 BUN 11 10 Creatinine 0.71 0.80 Glucose 92 172 H Calcium 8.9 8.9 Liver Function 10/31/24 Range/Units 14:22 Total Bilirubin 0.9 (0.2-1.0) mg/dl Direct Bilirubin 0.2 (0-0.2) mg/dl AST 9 L (13-39) U/L ALT 8 (7-52) U/L Alkaline Phosphatase 64 (34-104) U/L Albumin 3.9 (3.4-5.0) gm/dl Urine 10/31/24 Range/Units 16:30 Urine Color Yellow Urine Appearance Clear (Clear) Urine pH 7.0 (4.5-7.5) Ur Specific [place] 1.018 (1.000-1.030) Urine Protein Negative (Negative) Urine Glucose (UA) Negative (Negative)
[2024-11-01] MEDS ORDERED: HYDROCORTISONE 10 MG TAB PO SCH (14:00)
[2024-11-01 16:28] LABS: Adenovirus F 40/41 PCR Not Detected (NotDetected); Astrovirus PCR Not Detected (NotDetected); Campylobacter PCR Not Detected (NotDetected); Cryptosporidium PCR Not Detected (NotDetected); Cyclospora cayetanensis PCR Not Detected (NotDetected); Entamoeba histolytica PCR Not Detected (NotDetected); Enteroaggregative E.coli(EAEC) Not Detected (NotDetected); Enteropathogenic E.coli (EPEC) Not Detected (NotDetected); Enterotoxigenic E.coli (ETEC) Not Detected (NotDetected); Giardia lamblia PCR Not Detected (NotDetected); Norovirus GI/GII PCR Not Detected (NotDetected); Plesiomonas shigelloides PCR Not Detected (NotDetected); Rotavirus A PCR Not Detected (NotDetected); Salmonella PCR Not Detected (NotDetected); Sapovirus PCR Not Detected (NotDetected); Shiga-like Toxin E.coli (STEC) Not Detected (NotDetected); Shigella/Enteroinvasive E.coli Not Detected (NotDetected); Vibrio cholerae PCR Not Detected (NotDetected); Vibrio species PCR Not Detected (NotDetected); Yersinia enterocolitica PCR Not Detected (NotDetected)
[2024-11-01] MEDS: LOPERAMIDE HCL 2 MG CAP PO PRN (17:10)
[2024-11-01] MEDS ORDERED: PHENAZOPYRIDINE HCL 100 MG TAB PO PRN (21:27)
[2024-11-01 21:49] LABS: Appearance Urine Clear (Clear); Bilirubin Urine Negative (Negative); Blood Urine Negative (Negative); Color Urine Yellow; Glucose Urine UA Negative (Negative); Ketones Urine Negative (Negative); Leukocyte Esterase Urine Negative (Negative); Nitrite Urine Negative (Negative); Protein Urine Negative (Negative); Specific Gravity Urine 1.011 (1.000-1.030); Urobilinogen Urine Negative (Negative)
[2024-11-01] MEDS: FAMOTIDINE 20MG IV PUSH 20 MG/5 ML SYR IV STA (21:57)
[2024-11-02 08:29] LABS: Mean Corpuscular Hemoglobin 32.7 pg (25.0-34.0); Mean Corpuscular Hgb Conc 35.3 g/dL (32.0-36.0); Mean Corpuscular Volume 92.6 fL (80.0-100.0); Mean Platelet Volume 12.1 fL (9.4-12.4); Platelet Count 22 K/uL (130-400); RDW Standard Deviation 39.3 fL (36.4-46.3); Red Blood Count 2.02 M/uL (4.20-5.40)
[2024-11-02 08:30] LABS: Hematocrit (blood only) 18.7 % (37.0-47.0); Hemoglobin 6.6 g/dl (12.0-16.0); White Blood Count 1.25 K/ul (4.8-10.8)
[2024-11-02 08:47] LABS: Immature Granulocytes # (auto) 0.12 K/uL (0.01-0.20); Immature Granulocytes % (auto) 9.6 %; Monocytes # (auto) 0.13 K/uL (0.11-0.59); Monocytes % (auto) 10.4 %; Polychromasia 1+; Rouleaux 1+; Tear Drop Cells 1+
[2024-11-02 08:48] LABS: BUN Creatinine Ratio 11.5 (10-20); Calcium 8.7 mg/dl (8.6-10.3); Creatinine Clr Calc Pharmacy 147.8 ml/min; Magnesium 1.8 mg/dl (1.7-2.4); Potassium 3.7 mmol/L (3.5-5.1)
[2024-11-02] MEDS ORDERED: SODIUM CHLORIDE 0.9% 100 ML IV PRN ×2 (09:03→11:58)
[2024-11-02] MEDS: LORazepam 1 MG TAB PO PRN (09:43)
[2024-11-02 11:58] LABS: Hematocrit (blood only) 19.4 % (37.0-47.0); Hemoglobin 6.6 g/dl (12.0-16.0)
[2024-11-02] MEDS ORDERED: Nursing to Pharmacy Communication SCH (14:00)
--- NOTE | 2024-11-02 14:07 | Hospitalist Progress Note ---
Date of Service November 02, 2024 Assessment & Plan (1) Immunosuppressed due to chemotherapy: (2) Triple negative breast cancer: (3) Primary adrenal insufficiency: (4) Hypomagnesemia: Plan Febrile Neutropenia Immunocompromise state Suspected sepsis Diarrhea/enteritis Left labial blister --Chest CTA:No pulmonary embolism or pneumonia seen. --CT ABD:Diffusely fluid-filled large bowel and several loops of small bowel compatible with enteritis and a diarrheal illness. No substantial bowel wall thickening. -- UA within normal limits --Respiratory panel negative --Blood culture negative to date --Urine culture negative today --Vaginal culture growing Gardnerella vaginalis --Will check stool studies if recurrence of diarrhea --Empirically on daptomycin, Zosyn>> transition to cefepime, Flagyl Follow-up serological studies Monitor CBC closely Continue neutropenic precautions Discussed with oncology Dr. Addison on 11/02/2024: Agrees with current management Neutropenia slowly improving Adrenal insufficiency--POA Random cortisol level 0.49 Hold home oral hydrocortisone Continue IV hydrocortisone Titrate down IV hydrocortisone as able Pancytopenia--POA Secondary to chemotherapy Received full gastrin on 10/24/24 No acute bleeding issues currently Transfuse 1 unit PRBC today Oncology recommends to transfuse platelets only if less than 10K or active bleed Monitor CBC Left labial lesion Culture growing Gardnerella vaginosis Follow-up final culture Given immunocompromise state, will start on Flagyl Requested gynecology evaluation Hypomagnesemia Replace and monitor Triple Negative Breast Cancer 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 Currently completed phase 1 of the treatment, (Paclitaxel, carboplatin, Keytruda). Keytruda stopped. One more round to go to complete phase 2. - Current Regimen: Actively on Phase 2, Adriamycin, cyclophosphamide. Last round completed on 10/23/24. Had pefilgrastim on 10/24 -- will last 14 days for the GCSF - Last MRI on 09/07 was negative - Follow up with [facility] for surgical and plastics referral for possible left lumpectomy. DVT Px: teds, scds Re: Thrombocytopenia CODE STATUS: Full code Admission and Anticipated Discharge Date Admission Date: October 31, 2024 Subjective Patient is seen and examined at bedside Still has minimal intermittent diarrhea Left labial lesion slowly improving Denies any chest pain, dyspnea, cough, dizziness, Abdominal pain Discussed with patient's family at bedside Also discussed with oncology over the phone Review of Systems Review of Systems: All systems reviewed & are unremarkable except as noted in Subjective Physical Exam Physical Exam: Physical Exam: Vitals signs as noted above General Appearance:Moderately built and nourished, no apparent distress Head: normocephalic, Atraumatic Eyes: normal inspection, EOMI Neck: supple, Trachea midline Respiratory/Chest: Normal breath sounds, CTA, No accessory muscle use Cardiovascular: S1, S2, No murmur Abdomen/GI:Soft, Non tender, Bowel sounds present Extremities/Musculoskeletal:normal inspection, no edema Neurologic/Psych:AAOX3, grossly no focal neurological deficits Skin: normal color, warm Results & Data Results & Data Vital Signs (Past 12 Hours) Vital Signs Temp Pulse Pulse Resp BP BP Pulse Ox 11/02/24 13:58 36.4 C L 73 16 91/50 L 97 11/02/24 13:43 36.6 C 76 16 102/61 97 11/02/24 11:54 36.5 C 62 18 96/58 L 98 11/02/24 08:52 36.4 C L 91 H 18 105/60 96 11/02/24 02:46 36.4 C L 80 14 96/53 L 97 O2 Del Method 11/02/24 13:58 11/02/24 13:43 11/02/24 11:54 Room Air 11/02/24 08:52 Room Air 11/02/24 02:46 Room Air Laboratory Results Short CBC 11/02/24 11/02/24 Range/Units 07:39 11:21 WBC 1.25 L (4.8-10.8) K/ul Hgb 6.6 L* 6.6 L* (12.0-16.0) g/dl Hct 18.7 L* 19.4 L* (37.0-47.0) % Plt Count 22 L* (130-400) K/uL BMP 11/02/24 07:39 Sodium 142 Potassium 3.7 Chloride 113 H Carbon Dioxide 24 BUN 7 Creatinine 0.61 Glucose 114 H Calcium 8.7 Urine 11/01/24 Range/Units Unknown Urine Color Yellow Urine Appearance Clear (Clear) Urine pH 7.0 (4.5-7.5) Ur Specific [place] 1.011 (1.000-1.030) Urine Protein Negative (Negative) Urine Glucose (UA) Negative (Negative)
[2024-11-02] MEDS: metroNIDAZOLE 500 MG TAB PO SCH (16:56)
[2024-11-02] MEDS: CEFEPIME 2000MG 2,000 MG/20 ML SYR IV SCH (16:56)
[2024-11-03] MEDS: MELATONIN 3 MG TAB PO PRN (05:42)
[2024-11-03 07:55] VITALS: RESP 16; TEMP 97.9
[2024-11-03 09:12] LABS: BUN Creatinine Ratio 12.3 (10-20); Calcium 8.8 mg/dl (8.6-10.3); Creatinine Clr Calc Pharmacy 158.2 ml/min; Magnesium 1.6 mg/dl (1.7-2.4); Potassium 3.6 mmol/L (3.5-5.1)
[2024-11-03 09:39] LABS: Hematocrit (blood only) 21.5 % (37.0-47.0); Hemoglobin 7.8 g/dl (12.0-16.0); Mean Corpuscular Hemoglobin 32.5 pg (25.0-34.0); Mean Corpuscular Hgb Conc 36.3 g/dL (32.0-36.0); Mean Corpuscular Volume 89.6 fL (80.0-100.0); RDW Coefficient of Variation 14.2 % (11.5-14.5); RDW Standard Deviation 44.4 fL (36.4-46.3)
--- NOTE | 2024-11-03 09:51 | OB/GYN Consultation ---
Date of Consultation November 03, 2024 Assessment & Plan (1) Labial lesion: Zovirazx ointment to lesion atypical for Herpes lesion but given the fact that she is immunosuppressed and has neutropenia can not rule out Herpes History of Present Illness Reason for Consultation: labial lesion on left Requesting Physician: Dr. Robledo Attending Physician: Trent Robledo MD History of Present Illness 29 F P1001 who presents to the hospital with neutropenia secondary to chemotherapy for triple negative breast cancer. She developed a new lesion on the left labia this past Sunday with pain and burning with urination. Cultures done are still pending. Allergies Allergy/AdvReac Type Severity Reaction Status Date / Time No Known Allergies Allergy Verified 10/06/24 12:13 Home Medications Medication Instructions Recorded Confirmed Type olanzapine 5 mg tablet 5 - 10 mg PO HS PRN Insomnia/Nausea 09/05/24 10/31/24 History ondansetron HCl 8 mg tablet 8 mg PO Q8H PRN Nausea And Vomiting 09/05/24 10/31/24 History gabapentin 100 mg capsule 100 mg PO HS #30 caps 09/08/24 10/31/24 Rx magnesium chloride 64 mg 64 mg PO BID #60 tabs 09/08/24 10/31/24 Rx (magnesium chloride) tablet,delayed release (Mag 64) fluoxetine 20 mg capsule 20 mg PO QAM 10/31/24 10/31/24 History hydrocortisone 10 mg tablet 15 mg PO QAM 10/31/24 10/31/24 History hydrocortisone 5 mg tablet 5 mg PO . EVERY AFTERNOON 10/31/24 10/31/24 History lorazepam 1 mg tablet 1 mg PO TID PRN Anxiety 10/31/24 10/31/24 History Patient History Medical History Restless leg syndrome Bradycardia normally runs in 50's History of COVID-19 (2019) no hosp; resolved Hx gestational diabetes History of anemia Mother currently breast-feeding Surgical History [place] teeth removed Family History Other No family history of adverse response to anesthesia Social History Smoking Status: Never smoker Second Hand Exposure: No; Do You Dip or Chew Tobacco: No; Hx Alcohol Use: No Hx Substance Use: No Preferred Language: [place] Communication Ability: Effective Slag Dumper Required: No Beliefs That Will Affect Care: None marital status: Current Living Situation: Spouse Current Living Situation Comment: home with spouse and child Other Information That Helps Us Care for You: No Feels Safe at Home: Yes Safety Concerns: Feels Safe At This Time Assistive Devices: None Review of Systems Review of Systems: All systems reviewed & are unremarkable except as noted in Subjective Physical Exam Constitutional: WD/WN, vitals as above Genitourinary: normal external appearance left lesion erythematous and tender to touch on mid portion of labia minora. No active crusting or seepage of lesion noted. No bleeding noted. Results & Data Vital Signs (Past 12 Hours) Vital Signs Temp Pulse Pulse Resp BP Pulse Ox O2 Del Method 11/03/24 07:54 36.6 C 49 L 16 96/57 L 90 Room Air 11/03/24 07:11 41 L 11/03/24 04:00 36.5 C 58 L 18 98/54 L 93 Room Air 11/02/24 23:00 36.9 C 57 L 18 95/57 L 97 Room Air 11/02/24 22:45 48 L
[2024-11-03 09:52] LABS: White Blood Count 2.33 K/ul (4.8-10.8)
[2024-11-03 09:59] LABS: Platelet Count 14 K/uL (130-400); Schistocytes Occasional
[2024-11-03 10:09] LABS: Basophils # (auto) 0.01 K/uL (0.00-0.20); Basophils % (auto) 0.4 %; Eosinophils # (auto) 0.01 K/uL (0.00-0.50); Eosinophils % (auto) 0.4 %; Immature Granulocytes # (auto) 0.01 K/uL (0.01-0.20); Immature Granulocytes % (auto) 0.4 %; Lymphocytes # (auto) 0.87 K/uL (1.20-3.40); Lymphocytes % (auto) 37.3 %; Monocytes # (auto) 0.28 K/uL (0.11-0.59); Neutrophils # (auto) 1.15 K/uL (1.40-6.50); Neutrophils % (auto) 49.5 %
[2024-11-03 10:18] LABS: Platelet Estimate Signific. Decreased (Normal); Toxic Granulation 2+
[2024-11-03 11:03] VITALS: BP 101/67; O2SAT 96
[2024-11-03] MEDS ORDERED: HYDROCORTISONE 10 MG TAB PO SCH ×2 (11:15→14:00)
[2024-11-03] MEDS: HYDROCORTISONE SOD 50 MG in SYRINGE 0 ML IV SCH (11:23)
--- NOTE | 2024-11-03 11:36 | Hospitalist Progress Note ---
Date of Service November 03, 2024 Assessment & Plan (1) Immunosuppressed due to chemotherapy: (2) Triple negative breast cancer: (3) Primary adrenal insufficiency: (4) Hypomagnesemia: Plan Febrile Neutropenia Immunocompromise state Suspected sepsis--less likely Diarrhea/enteritis Left labial blister --Chest CTA:No pulmonary embolism or pneumonia seen. --CT ABD:Diffusely fluid-filled large bowel and several loops of small bowel compatible with enteritis and a diarrheal illness. No substantial bowel wall thickening. -- UA within normal limits --Respiratory panel negative --Blood culture negative to date --Urine culture negative today --Will check stool studies if recurrence of diarrhea --Empirically on daptomycin, Zosyn>> transition to cefepime, Flagyl Follow-up serological studies--pending Monitor CBC closely Continue neutropenic precautions Discussed with oncology Dr. Addison on 11/02/2024: Agrees with current management Neutropenia improving Advised to follow-up with oncology on discharge Adrenal insufficiency--POA Random cortisol level 0.49 Received IV hydrocortisone Increase oral hydrocortisone to 30 mg every morning, 10 mg every afternoon Advised to follow-up with endocrinology on discharge Pancytopenia--POA Secondary to chemotherapy Received full gastrin on 10/24/24 No acute bleeding issues currently S/P 1 unit PRBC Oncology recommends to transfuse platelets only if less than 10K or active bleed Monitor CBC Will need repeat blood work on discharge monitor WBC, thrombocytes Left labial lesion Culture growing Gardnerella vaginosis Serology for herpes pending Given immunocompromise state, will start on Flagyl Appreciate gynecology Input Started on Zovirax ointment per recommended by OBGYN Hypomagnesemia Replace and monitor Triple Negative Breast Cancer 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 Currently completed phase 1 of the treatment, (Paclitaxel, carboplatin, Keytruda). Keytruda stopped. One more round to go to complete phase 2. - Current Regimen: Actively on Phase 2, Adriamycin, cyclophosphamide. Last round completed on 10/23/24. Had pefilgrastim on 10/24 -- will last 14 days for the GCSF - Last MRI on 09/07 was negative - Follow up with [facility] for surgical and plastics referral for possible left lumpectomy. DVT Px: teds, scds Re: Thrombocytopenia CODE STATUS: Full code Disposition Home Admission and Anticipated Discharge Date Admission Date: October 31, 2024 Subjective Patient is seen and examined at bedside No new complaints today Diarrhea much improved Denies any chest pain, dyspnea, cough, dizziness, Abdominal pain Family at bedside Patient prefers to be discharged home today Review of Systems Review of Systems: All systems reviewed & are unremarkable except as noted in Subjective Physical Exam Physical Exam: Physical Exam: Vitals signs as noted above General Appearance:Moderately built and nourished, no apparent distress Head: normocephalic, Atraumatic Eyes: normal inspection, EOMI Neck: supple, Trachea midline Respiratory/Chest: Normal breath sounds, CTA, No accessory muscle use Cardiovascular: S1, S2, No murmur Abdomen/GI:Soft, Non tender, Bowel sounds present Extremities/Musculoskeletal:normal inspection, no edema Neurologic/Psych:AAOX3, grossly no focal neurological deficits Skin: normal color, warm Results & Data Results & Data Vital Signs (Past 12 Hours) Vital Signs Temp Pulse Pulse Resp BP Pulse Ox O2 Del Method 11/03/24 11:02 36.6 C 55 L 16 101/67 96 Room Air 11/03/24 07:54 36.6 C 49 L 16 96/57 L 90 Room Air 11/03/24 07:11 41 L 11/03/24 04:00 36.5 C 58 L 18 98/54 L 93 Room Air Laboratory Results Short CBC 11/02/24 11/03/24 Range/Units 11:21 08:27 WBC 2.33 L (4.8-10.8) K/ul Hgb 6.6 L* 7.8 L (12.0-16.0) g/dl Hct 19.4 L* 21.5 L (37.0-47.0) % Plt Count 14 L* (130-400) K/uL BMP 11/03/24 08:26 Sodium 142 Potassium 3.6 Chloride 113 H Carbon Dioxide 24 BUN 7 Creatinine 0.57 L Glucose 89 Calcium 8.8
[2024-11-03] MEDS ORDERED: ACYCLOVIR 5% OINT 15 GM TUBE EXT SCH (11:45)
[2024-11-03] MEDS: MAGNESIUM SULFATE / D5W 1 GM/100 ML BAG IV ONE (11:57)
--- NOTE | 2024-11-03 12:00 | Discharge Summary ---
Date of Service November 03, 2024 Admission HPI Per Admitting Provider This is a 29 yo F with PMHx of Left triple negative breast cancer, diagnosed Mar 2024, follows with Dr. Kanu Maravilla, currently receiving neoadjuvant chemotherapy and is on phase 2 which includes Adriamycin + cyclop hosphamide(cytoxan) 1240 mg every 3 weeks x 4. She tested positive for rhinovirus during last treatment cycle. Hydrocortisone for adrenal insufficiency is currently 15 mg QAM and +5 mg QPM due to anxiety (was tapered down). Pt states she is taking 10 +5 due to anxiety. Oncologist discontinued Keytruda from all future treatments earlier this month. Most recent cycle was on 10/24/24. She is getting pegfilgrastim on D2 s/p treatments and and hydration with 1 L NSS over two hours. Plan is for tentative left lumpectomy and biopsy after completion of neoadjuvant chemotherapy and is meeting with Surgery and Plastic consult scheduled at [facility] next week. She would finish phase 2 after next cycle tentatively scheduled on 11/13. Her genetics work up negative. She presented to the cancer center today for dehydration to have 1 L infusion of normal saline. She presumed that she was dehydrated. Patient reports that in the last week she has increasing fatigue, poor p.o. intake, disinterest in food and has not been able to tolerate much, She is also intermittently nauseous. Diarrhea occurring 3 times per day in the past 2 days. Today is the first that fever was noted with sweats/chills. She admits to having acute swelling of the labia (left inner) with a small blister area and burning of the skin when she urinates. No discharge, no hx of STI. No new sexual partners between her or . Denies dysuria, increase in frequency or hematuria. No bleeding in stool or when brushing teeth. She also admits to having a weight loss of approximately 15 pounds over the past 2 months going down from 200 to 185 pounds. She has not been using any protein supplements. We discussed this today and she is willing to try while here in the hospital. Her is present at bedside and supports the history. She does report her daughter turned 1 on 10/30 and they were planning on having a first birthday republican with family and friends tomorrow. We discussed moving this republican to the following weekend due to her current status and needing admission to the hospital. Admission Exam Per Admitting Provider General: awake, alert, no apparent distress, + alopecia, + young white female Head: Normocephalic, atraumatic ENT: PERRL, EOMI, no pharyngeal exudate, mucous membranes slightly dry Chest: Clear to auscultation, on room air, no adventitious breath sounds Cardiac: Regular rate and rhythm, no murmur, no JVD, normal peripheral pulses, good capillary refill Abdominal: NABS x 4 quadrants, soft, nondistended, nontender to palpation, no rebound or guarding : left inner labia with blister like lesion with mild surrounding erythema, no vaginal discharge Extremities: Normal inspection, no peripheral edema or erythema, calfs nontender to palpation Psych: Normal mood and affect Neuro: AAO x 3, strength intact bilaterally and rated 5/5, no motor deficits, speech is clear, no peripheral sensory deficits Principal Diagnosis Febrile Neutropenia Immunocompromise state Suspected sepsis Adrenal insufficiency Diarrhea/enteritis Left labial blister Pancytopenia Discharge Data Allergies Allergy/AdvReac Type Severity Reaction Status Date / Time No Known Allergies Allergy Verified 10/06/24 12:13 Consultations 10/31/24 16:32 ED Decision to Admit Stat 11/02/24 11:21 Consult Gynecology Routine Procedures Performed Laboratory Results WBC 2.33 K/ul (4.8-10.8) L 11/03/24 08: RBC 2.40 M/uL (4.20-5.40) L 11/03/24 08:27 Hgb 7.8 g/dl (12.0-16.0) L 11/03/24 08:27 POC Hgb 7.1 g/dl (12.0-16.0) L 10/31/24 14:32 Hct 21.5 % (37.0-47.0) L 11/03/24 08:27 POC Hct 21 % (37-47) L 10/31/24 14:32 MCV 89.6 fL (80.0-100.0) 11/03/24 08:27 MCH 32.5 pg (25.0-34.0) 11/03/24 08: MCHC 36.3 g/dL (32.0-36.0) H 11/03/24 08:27 RDW Std Deviation 44.4 fL (36.4-46.3) 11/03/24 08:27 RDW Coeff of Karey 14.2 % (11.5-14.5) 11/03/24 08:27 Plt Count 14 K/uL (130-400) L* 11/03/24 08:27 MPV 12.1 fL (9.4-12.4) 11/02/24 07:39 Immature Gran % (Auto) 0.4 % 11/03/24 08:27 Neut % (Auto) 49.5 % 11/03/24 08:27 Lymph % (Auto) 37.3 % 11/03/24 08:27 [place] % (Auto) 12.0 % 11/03/24 08:27 Eos % (Auto) 0.4 % 11/03/24 08:27 Baso % (Auto) 0.4 % 11/03/24 08:27 Neut # (Auto) 1.15 K/uL (1.40-6.50) L 11/03/24 08:27 Lymph # (Auto) 0.87 K/uL (1.20-3.40) L 11/03/24 08:27 [place] # (Auto) 0.28 K/uL (0.11-0.59) 11/03/24 08:27 Eos # (Auto) 0.01 K/uL (0.00-0.50) 11/03/24 08:27 Baso # (Auto) 0.01 K/uL (0.00-0.20) 11/03/24 08:27 Immature Gran # (Auto) 0.01 K/uL (0.01-0.20) 11/03/24 08:27 Toxic Granulation 2+ 11/03/24 08:27 Dohle Bodies 1+ 11/01/24 07:05 Platelet Estimate Signific. Decreased (Normal) L 11/03/24 08:27 RBC Morphology Unremarkable 10/31/24 14:22 Polychromasia 1+ 11/02/24 07:39 Tear Drop Cells 1+ 11/02/24 07:39 Rouleaux 1+ 11/02/24 07:39 Schistocytes Occasional 11/03/24 08:27 PT 10.7 Seconds (9.0-12.0) 10/31/24 14:22 INR 1.0 (0.9-1.1) 10/31/24 14:22 APTT 28 Seconds (21-31) 10/31/24 14:22 PTT Ratio 1.0 10/31/24 14:22 VBG pH 7.47 (7.36-7.41) H 10/31/24 14:22 VBG pCO2 31 mmHg (38-50) L 10/31/24 14:22 VBG pO2 45 mmHg 10/31/24 14:22 VBG HCO3 23 mmol/L 10/31/24 14:22 VBG O2 Saturation 74.8 % 10/31/24 14:22 VBG Base Excess -0.2 mEq/L 10/31/24 14:22 POC Sodium 135 mmol/L (135-144) 10/31/24 14:32 Sodium 142 mmol/L (136-145) 11/03/24 08:26 POC Potassium 4.0 mmol/L (3.3-5.0) 10/31/24 14:32 Potassium 3.6 mmol/L (3.5-5.1) 11/03/24 08:26 POC Chloride 102 mmol/L (101-112) 10/31/24 14:32 Chloride 113 mmol/L (98-107) H 11/03/24 08:26 Carbon Dioxide 24 mmol/L (21-32) 11/03/24 08:26 POC Total CO2 21 mmol/L (24-31) L 10/31/24 14:32 Anion Gap 5 (3-11) 11/03/24 08:26 POC Anion Gap 17.0 mmol/L (16-25) 10/31/24 14:32 POC BUN 9 mg/dl (7-18) 10/31/24 14:32 BUN 7 mg/dl (6-23) 11/03/24 08:26 Creatinine 0.57 mg/dl (0.6-1.2) L 11/03/24 08:26 POC Creatinine 0.8 mg/dl (0.6-1.3) 10/31/24 14:32 Est Cr Clr Drug Dosing 158.2 ml/min 11/03/24 08:26 eGFR 125.30 11/03/24 08:26 BUN/Creatinine Ratio 12.3 (10-20) 11/03/24 08:26 Glucose 89 mg/dl (70-99(Fasting)) 11/03/24 08:26 POC Glucose (other) 91 mg/dl (70-99) 10/31/24 14:32 Lactate 0.9 mmol/L (0.4-2.0) 10/31/24 14:24 Calcium 8.8 mg/dl (8.6-10.3) 11/03/24 08:26 POC Ioniz Calcium Lilian 1.23 mmol/l (1.12-1.32) 10/31/24 14:32 Magnesium 1.6 mg/dl (1.7-2.4) L 11/03/24 08:26 Total Bilirubin 0.9 mg/dl (0.2-1.0) 10/31/24 14:22 Direct Bilirubin 0.2 mg/dl (0-0.2) 10/31/24 14:22 AST 9 U/L (13-39) L 10/31/24 14:22 ALT 8 U/L (7-52) 10/31/24 14:22 Alkaline Phosphatase 64 U/L (34-104) 10/31/24 14:22 Troponin I High Sens 9.7 pg/ml (0-14) 10/31/24 14:22 Total Protein 6.2 gm/dl (6.0-8.3) 10/31/24 14:22 Albumin 3.9 gm/dl (3.4-5.0) 10/31/24 14:22 Procalcitonin 0.07 ng/ml (0-0.5) 10/31/24 14:22 Random Cortisol 0.49 mcg/dl 11/01/24 07:05 Cortisol AM Sample 12.28 mcg/dl (6.2-22.6) 11/02/24 07:39 Urine Color Yellow 11/01/24 Unknown Urine Appearance Clear (Clear) 11/01/24 Unknown Urine pH 7.0 (4.5-7.5) 11/01/24 Unknown Ur Specific Galt 1.011 (1.000-1.030) 11/01/24 Unknown Urine Protein Negative (Negative) 11/01/24 Unknown Urine Glucose (UA) Negative (Negative) 11/01/24 Unknown Urine Ketones Negative (Negative) 11/01/24 Unknown Urine Blood Negative (Negative) 11/01/24 Unknown Urine Nitrite Negative (Negative) 11/01/24 Unknown Urine Bilirubin Negative (Negative) 11/01/24 Unknown Urine Urobilinogen Negative (Negative) 11/01/24 Unknown Ur Leukocyte Esterase Negative (Negative) 11/01/24 Unknown Urine Comment 11/01/24 Unknown Stl C. cayetanensis PCR Not Detected (NotDetected) 11/01/24 15:00 Stool Rotavirus A PCR Not Detected (NotDetected) 11/01/24 15:00 Stl Adenov F 40/41 PCR Not Detected (NotDetected) 11/01/24 15:00 Stool Astrovirus (PCR) Not Detected (NotDetected) 11/01/24 15:00 Stool Campylobacter PCR Not Detected (NotDetected) 11/01/24 15:00 Stl C. diff Tox B Gene Negative Cdiff Gene (Neg) 11/01/24 15:00 Stool Cryptosporidium PCR Not Detected (NotDetected) 11/01/24 15:00 Stl E.coli Shiga Tox PCR Not Detected (NotDetected) 11/01/24 15:00 Stl Enterotoxigenic E PCR Not Detected (NotDetected) 11/01/24 15:00 Stool EPEC (PCR) Not Detected (NotDetected) 11/01/24 15:00 Stool EAEC (PCR) Not Detected (NotDetected) 11/01/24 15:00 Stl E. histolytica PCR Not Detected (NotDetected) 11/01/24 15:00 Stool Giardia Lamblia PCR Not Detected (NotDetected) 11/01/24 15:00 Stool Salmonella PCR Not Detected (NotDetected) 11/01/24 15:00 Stool Sapovirus (PCR) Not Detected (NotDetected) 11/01/24 15:00 Stl P. shigelloides PCR Not Detected (NotDetected) 11/01/24 15:00 Stl Shigella/EIEC PCR Not Detected (NotDetected) 11/01/24 15:00 St Y.enterocolitica PCR Not Detected (NotDetected) 11/01/24 15:00 Stool Vibrio (PCR) Not Detected (NotDetected) 11/01/24 15:00 Stl Vibrio cholerae PCR Not Detected (NotDetected) 11/01/24 15:00 Stl Norovirus GI/GII PCR Not Detected (NotDetected) 11/01/24 15:00 Vaginal Lakisha glabrata Negative (Negative) 10/31/24 18:53 Treponema pallidum Ab Negative (Negative) 10/31/24 14:22 Adenovirus (PCR) Not Detected (NotDetected) 10/31/24 14:21 B. pertussis DNA (PCR) Not Detected (NotDetected) 10/31/24 14:21 B.parapertussis DNA PCR Not Detected (NotDetected) 10/31/24 14:21 Lakisha species Negative (Negative) 10/31/24 18:53 C. pneumoniae DNA (PCR) Not Detected (NotDetected) 10/31/24 14:21 C.trachomatis RNA Not Detected (NotDetected) 10/31/24 18:53 Coronavirus OC43 (PCR) Not Detected (NotDetected) 10/31/24 14:21 Coronavirus HKU1 (PCR) Not Detected (NotDetected) 10/31/24 14:21 Coronavirus 229E (PCR) Not Detected (NotDetected) 10/31/24 14:21 SARS-CoV-2 (PCR) Not Detected (NotDetected) 10/31/24 14:21 Coronavirus NL63 (PCR) Not Detected (NotDetected) 10/31/24 14:21 Human Metapneumovir PCR Not Detected (NotDetected) 10/31/24 14:21 Influenza Type A (PCR) Not Detected (NotDetected) 10/31/24 14:21 Influenza Type B (PCR) Not Detected (NotDetected) 10/31/24 14:21 M. genitalium (MOR) Negative (Negative) 10/31/24 18:53 M. pneumoniae (PCR) Not Detected (NotDetected) 10/31/24 14:21 N.gonorrhoeae RNA Not Detected (NotDetected) 10/31/24 18:53 Parainfluenza 1 (PCR) Not Detected (NotDetected) 10/31/24 14:21 Parainfluenza 2 (PCR) Not Detected (NotDetected) 10/31/24 14:21 Parainfluenza 3 (PCR) Not Detected (NotDetected) 10/31/24 14:21 Parainfluenza 4 (PCR) Not Detected (NotDetected) 10/31/24 14:21 RSV (PCR) Not Detected (NotDetected) 10/31/24 14:21 Entero/Rhino (PCR) Not Detected (NotDetected) 10/31/24 14:21 Bact Vag MOR Interpr POSITIVE (Negative) A 10/31/24 18:53 T. vaginalis Amp RNA Negative (Negative) 10/31/24 18:53 Blood Type A Positive 11/02/24 11:21 Antibody Screen NEGATIVE 11/02/24 11:21 Crossmatch See Detail 11/02/24 11:21 Impressions Chest CTA 10/31/24 14:06 CT angio chest PE protocol CT DOSE: 509.61 mGy.cm HISTORY: ro pe. TECHNIQUE: Multiple CTA images of the chest were obtained after the intravenous administration of 150 ml Optiray. Coronal and sagittal MIPS were obtained from the axial data set and were submitted for review. All measurements were obtained according to NASCET criteria. A dose lowering technique was utilized adhering to the principles of ALARA. COMPARISON STUDY: None FINDINGS: There is no pulmonary consolidation or pleural effusion. No pneumothorax. No thoracic aortic dissection or aneurysm. No pulmonary embolism. No pericardial effusion. No enlarged adenopathy. No acute osseous findings. IMPRESSION: No pulmonary embolism or pneumonia seen. ACT 112: Negative or not required by law. The above report was generated using voice recognition software. It may contain grammatical, syntax or spelling errors. Electronically signed by: Shayan Gomez M.D. 10/31/2024 4:03 PM Chest X-Ray 10/31/24 14:06 XR chest 1V portable CLINICAL HISTORY: Sepsis COMPARISON STUDY: 10/06/2024 FINDINGS: Stable right chest port. Heart size and pulmonary vasculature are normal. No effusion, consolidation, or pneumothorax. IMPRESSION: No acute findings. ACT 112: Negative or not required by law. Electronically signed by: Shayan Gomez M.D. 10/31/2024 2:23 PM Abdomen/Pelvis CT 10/31/24 18:09 EXAMINATION: CT of the abdomen and pelvis performed after the administration of IV contrast TECHNIQUE: Helical CT images from the lung bases through the symphysis pubis were obtained with contrast. Coronal and sagittal reformatted images were generated at a workstation for further assessment. Dose reduction techniques were achieved by using automatic exposure control and/or adjustment of mA and/or kV according to patient size and/or use of iterative reconstruction technique. COMPARISON: 02/10/2024 HISTORY: Abdominal pain FINDINGS: Lower chest: No consolidation. No pleural effusion or pneumothorax. Liver: No suspicious liver lesions. Portal veins appear patent. Gallbladder: Cholecystectomy. Spleen: Normal size. Pancreas: No suspicious pancreatic lesions. The pancreatic duct is not dilated. Adrenal glands: No adrenal nodules. Kidneys: No hydronephrosis or obstructing renal stones. Bladder / Pelvic organs: Unremarkable. Bowel: No bowel obstruction. No abnormal bowel wall thickening. The appendix is unremarkable. A small curvilinear area of material in the cecum, is very high in density, and is favored to represent medication. Diffusely fluid-filled large bowel and several loops of small bowel. Lymph nodes: No retroperitoneal, mesenteric, or pelvic lymphadenopathy. Peritoneum / Retroperitoneum: No free fluid or air within the abdomen. Vessels: No infrarenal aortic aneurysm. Bones and soft tissues: No suspicious lesion in the bones. IMPRESSION: Diffusely fluid-filled large bowel and several loops of small bowel compatible with enteritis and a diarrheal illness. No substantial bowel wall thickening. Electronically signed by Henry Parks 10-31-2024 8:10 PM Ordered Studies 10/31/24 14:06 CT angio chest PE protocol Stat 10/31/24 18:09 CT abd pelvis IV con only Stat Hospital Course (1) Immunosuppressed due to chemotherapy: (2) Triple negative breast cancer: (3) Primary adrenal insufficiency: (4) Hypomagnesemia: Plan Febrile Neutropenia Immunocompromise state Suspected sepsis--less likely Diarrhea/enteritis Left labial blister --Chest CTA:No pulmonary embolism or pneumonia seen. --CT ABD:Diffusely fluid-filled large bowel and several loops of small bowel compatible with enteritis and a diarrheal illness. No substantial bowel wall thickening. -- UA within normal limits --Respiratory panel negative --Blood culture negative to date --Urine culture negative today --Will check stool studies if recurrence of diarrhea --Empirically on daptomycin, Zosyn>> transition to cefepime, Flagyl Follow-up serological studies--pending Monitor CBC closely Continue neutropenic precautions Discussed with oncology Dr. Addison on 11/02/2024: Agrees with current management Neutropenia improving Advised to follow-up with oncology on discharge Adrenal insufficiency--POA Random cortisol level 0.49 Received IV hydrocortisone Increase oral hydrocortisone to 30 mg every morning, 10 mg every afternoon Advised to follow-up with endocrinology on discharge Pancytopenia--POA Secondary to chemotherapy Received full gastrin on 10/24/24 No acute bleeding issues currently S/P 1 unit PRBC Oncology recommends to transfuse platelets only if less than 10K or active bleed Monitor CBC Will need repeat blood work on discharge monitor WBC, thrombocytes Left labial lesion Culture growing Gardnerella vaginosis Serology for herpes pending Given immunocompromise state, will start on Flagyl Appreciate gynecology Input Started on Zovirax ointment per recommended by OBGYN Hypomagnesemia Replace and monitor Triple Negative Breast Cancer 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 Currently completed phase 1 of the treatment, (Paclitaxel, carboplatin, Keytruda). Keytruda stopped. One more round to go to complete phase 2. - Current Regimen: Actively on Phase 2, Adriamycin, cyclophosphamide. Last round completed on 10/23/24. Had pefilgrastim on 10/24 -- will last 14 days for the GCSF - Last MRI on 09/07 was negative - Follow up with [facility] for surgical and plastics referral for possible left lumpectomy. DVT Px: teds, scds Re: Thrombocytopenia CODE STATUS: Full code Disposition Home Total Time Total Time Spent Total Time Spent (In Minutes): 45 Discharge Plan Discharge Items Patient Disposition: Home - Self-Care Reason For Visit: FEBRILE NEUTROPENIA Discharge Diagnosis: Febrile Neutropenia Immunocompromise state Suspected sepsis Adrenal insufficiency Diarrhea/enteritis Left labial blister Pancytopenia Condition on Discharge: Serious Activity: Per Instructions section Exercise/Sports: Gradually increase as tolerated Non-emergency contact: Primary Care Provider, Specialist and Oncologist Call non-emergency contact if: you have any medication questions, your symptoms worsen, your pain is concerning for you and you have a fever Follow-up/Referrals: Kanu Maravilla MD [Surgeon] - (Date & Time 11/13/2024 9:00 AM Provider: Kanu Maravilla MD Hematology/Oncology [facility] ) Orlin Miranda MD [Outside Practitioners] - Malinda Owens CRNP [Primary Care Provider] - (Date & Time 11/06/2024 10:40 AM Provider: Malinda Owens CRNP [facility] ) Diet: Regular Addtl Attending Provider Instructions: Follow-up with your primary care physician Dr. Miranda in 1 week Follow-up with your oncologist Dr. Kanu Maravilla on 11/13/2024 at 9 AM as scheduled Follow-up with your plate corrector Malinda DUONG on 11/06/2024 10:40 AM -- Your serological test for herpes send final blood cultures are pending at the time of discharge. Follow-up with your physician for results. -- Get blood work (complete blood count, basic metabolic panel and magnesium levels) in 3 days and follow-up with your primary care physician for further recommendations. --If your serological test for herpes is positive, you would need further treatment for herpes. Discuss with your PCP as recommended. -- Complete the antibiotic course metronidazole and use Acylovir ointment as prescribed. -- Your hydrocortisone dose is increased to 30 mg every morning and 10 mg every afternoon further instructions to be determined by your plate corrector on follow-up visit. Seek immediate medical attention if your symptoms reoccur or worsen Please review medication list provided on discharge for any medication changes as instructed. Please call if you have any questions or problems. You can reach a [facility] hospitalist on duty at [facility] 24 hours a day by calling [phone] Pending Studies at Discharge: Yes (Serological test for herpes, blood cultures) Stand-Alone Forms: My [facility] Health, Smoking Cessation Medications and DC Order Prescriptions: New loperamide 2 mg Capsule 2 mg PO Q6H PRN (Reason: loose stool) Qty: 30 0RF metronidazole 500 mg Tablet 500 mg PO BID Qty: 17 0RF acyclovir [Zovirax] 5 % Ointment 1 applic EXT Q4H 7 Days Qty: 30 0RF Continued lorazepam 1 mg tablet 1 mg PO TID PRN (Reason: Anxiety) fluoxetine 20 mg capsule 20 mg PO QAM ondansetron HCl 8 mg tablet 8 mg PO Q8H PRN (Reason: Nausea And Vomiting) olanzapine 5 mg tablet 5 - 10 mg PO HS PRN (Reason: Insomnia/Nausea) gabapentin 100 mg Capsule 100 mg PO HS Qty: 30 0RF magnesium chloride [Mag 64] 64 mg Tablet,Delayed Release (Dr/Ec) 64 mg PO BID Qty: 60 0RF Changed hydrocortisone 5 mg tablet 10 mg PO . EVERY AFTERNOON Qty: 60 0RF hydrocortisone 10 mg tablet 30 mg PO QAM Qty: 90 0RF Discharge Orders: Discharge Order (Routine); Ordered 11/03/24 Ordered By: Trent Robledo Admission Data Admit Date/Time: 10/31/24 17:31 Attending Provider: Trent Robledo Admit Provider: Jose Francisco Tsai Primary Care Provider: Malinda Owens Other Providers: Kanu Maravilla; Jose Francisco Tsai; Krishna Chaudhry; Jeni Goldstein; Dunia Fernandez; Praveen Carranza; Cleveland Tavarez; Fly Delgado; Edgar Stephens; Yaneth Boyce; Brittny Osullivan; Soo Parks; Rosmery Montemayor; Vidya Pavon; Kina Capps; Suha Rodriguez; Virgilio Burdick; Lilia Marques
[2024-11-03 14:04] VITALS: PULSE 83
[2024-11-03] MEDS: ACYCLOVIR 5% OINT 15 GM TUBE EXT SCH (14:18)
[2024-11-03] MEDS: HEPARIN 100 UNIT/ML 5ML FLUSH FLUSH PRN (14:22)
--- NOTE | 2024-11-04 08:38 | Coding Query ---
CODING QUERY To promote full compliance with coding requirements relating to patient care, provider participation is requested in all cases of guard chief uncertainty. Please assist us with the question(s) below: Coding Question(s): Pt diagnosed with labial ulcer with pathology/herpes testing. Please clarify if this is herpes or something else. Physician's Response(s):Although less likely, can not rule out Herpes. Serology pending. Unclear etiology Thank you Dominga Fam Principal Diagnosis: "that condition established after study, to be chiefly responsible for occasioning the admission of the patient to the hospital for care." Co-Existing Principal Diagnosis: "when two or more diagnoses equally meet the criteria for principal diagnosis as determined by the circumstances of admission, diagnostic work up, and/or therapy provided, and the Alphabetic Index, Tabular List, or another coding guideline does not provide sequencing direction, any one of the diagnoses may be sequenced first." "When the physician has documented what appears to be a current diagnosis in the body of the record, but has not included the diagnosis in the final diagnostic statement, the physician should be asked whether the diagnosis should be added." (Source Coding [facility] 2 QTR90. p3-4) ALBINO
--- NOTE | 2024-11-04 08:39 | Coding Query ---
SEPSIS To promote full compliance with coding requirements relating to patient care, physician participation is requested in all cases of vice president & general manager [employer] [place] uncertainty. Please assist us with the question(s) below: In responding to this query, please exercise your independent professional judgement. The fact that a question is asked does not imply that any particular answer is desired or expected. We appreciate your clarification on this issue. Throughout the medical record, you have clearly documented a localized infection and your patient has clinical evidence of a generalized sepsis or severe sepsis. The term urosepsis is a nonspecific entity and is coded as an UTI. If the patient has sepsis, severe sepsis, from an urinary source or some other source, please clarify in your response below. The medical record reflects the following clinical findings: (With dates as appropriate) (Body temperature of >38.3 C(101 F) or <36 C(96.8F), pulse >90/minute, respirations >20/minute, WBC count >12,000 or <4,000, altered mental status, significant edema or positive fluid balance, hyperglycemia without diabetes, hypotension, metabolic acidosis (elev. lactate level, anion gap or reduced blood pH), shock, positive blood culture (enter organism) ____ ()Bacteremia (Nonspecific laboratory finding of bacteria in the blood) Specify Organism () Present on Admission (x) Not present on admission () Unable to clinically determine () Septicemia (Systemic disease associated with the presence of pathogenic microorganisms in the blood): Specify Organism () Present on Admission (x) Not present on admission () Unable to clinically determine () Sepsis Specify Organism Specify Associated Condition/Diagnosis () Present on Admission (x) Not present on admission () Unable to clinically determine () Severe Sepsis (Sepsis associated with acute organ dysfunction) Specify Organism Specify Associated Condition/Diagnosis () Present on Admission (x) Not present on admission () Unable to clinically determine () Septic Shock (Severe sepsis with acute circulatory failure, unexplained by other causes) () Present on Admission (x) Not present on admission () Unable to clinically determine () Other, patient has: MTDD
[2024-11-05 13:32] LABS: HSV Type 1 DNA Not Detected (Not Detected); HSV Type 2 DNA Not Detected (Not Detected)
== END 2024-11-03 14:44 | disposition home or self-care (01) | DRG 808 ==
LOC: ED 13:43 → SUATTDRO 17:31 → 2W 17:31

== ENCOUNTER 2025-02-12 01:22 | Inpatient (IN) ==
[2025-02-12] MEDS ORDERED: VANCOMYCIN CONSULT ACTIVE PRN ×2 (01:52→06:22)
--- NOTE | 2025-02-12 01:53 | Emergency Department Note ---
History of Present Illness General Chief complaint: Fever Stated complaint: FEVER OF 103,CANCER PATIENT Time Seen by Provider: 02/12/25 01:46 History of Present Illness This 29-year-old female with a history of breast cancer who last got chemotherapy back in October presents the ER for fever, chills and generalized illness with headache today. Patient denies chest pain, dyspnea, neck pain, sore throat, cough, congestion, abdominal pain, vomiting, diarrhea, urinary symptoms. She took Tylenol just prior to arrival. Tmax 103 today. No tick bites. Home Medications Medication Instructions Recorded Confirmed Type olanzapine 5 mg tablet 5 - 10 mg PO HS PRN Insomnia/Nausea 09/05/24 10/31/24 History ondansetron HCl 8 mg tablet 8 mg PO Q8H PRN Nausea And Vomiting 09/05/24 10/31/24 History gabapentin 100 mg capsule 100 mg PO HS #30 caps 09/08/24 10/31/24 Rx magnesium chloride 64 mg 64 mg PO BID #60 tabs 09/08/24 10/31/24 Rx (magnesium chloride) tablet,delayed release (Mag 64) fluoxetine 20 mg capsule 20 mg PO QAM 10/31/24 10/31/24 History lorazepam 1 mg tablet 1 mg PO TID PRN Anxiety 10/31/24 10/31/24 History hydrocortisone 10 mg tablet 30 mg (3 x 10 mg) PO QAM #90 tabs 11/03/24 Rx hydrocortisone 5 mg tablet 10 mg (2 x 5 mg) PO . EVERY 11/03/24 Rx AFTERNOON #60 tabs loperamide 2 mg capsule 2 mg PO Q6H PRN loose stool #30 11/03/24 Rx caps metronidazole 500 mg tablet 500 mg PO BID #17 tabs 11/03/24 Rx Allergies Allergy/AdvReac Type Severity Reaction Status Date / Time No Known Allergies Allergy Verified 10/06/24 12:13 Past Med/Surg History Problem List (Updated 02/12/25 @ 03:54 by Anne Jaime PA-C) Breast cancer (Acute) Adrenal insufficiency (Acute) Hypomagnesemia (Acute) Fever (Acute) Labial lesion Primary adrenal insufficiency Hypotension Anemia Thrombocytopenia Hypomagnesemia (Acute) Immunosuppressed due to chemotherapy (Acute) Triple negative breast cancer (Acute) Febrile neutropenia (Acute) Cholelithiasis Anemia, No significant past medical history Medical History Restless leg syndrome Bradycardia normally runs in 50's History of COVID-19 (2019) no hosp; resolved Hx gestational diabetes History of anemia Mother currently breast-feeding Surgical History [place] teeth removed Family History Other No family history of adverse response to anesthesia Social History Smoking Status: Never smoker Second Hand Exposure: No; Do You Dip or Chew Tobacco: No; Hx Alcohol Use: No Hx Substance Use: No Preferred Language: Setswana Communication Ability: Effective Line Tender Flakeboard Required: No Beliefs That Will Affect Care: None marital status: Current Living Situation: Spouse Current Living Situation Comment: home with spouse and child Feels Safe at Home: Yes Assistive Devices: None Review of Systems A total of 10 systems reviewed and were otherwise negative Physical Exam Vital Signs Vital Signs - 24 hr 02/12/25 01:26 02/12/25 01:51 02/12/25 01:52 Temperature 36.9 C Temperature Source Oral Pulse Rate 117 H 91 H Pulse Rate [Apical] 102 H Respiratory Rate 24 21 Respiratory Effort / Characteristics Non-Labored Spontaneous Respiratory Depth Normal Respiratory Pattern Regular Blood Pressure [Right Arm] 97/76 L Blood Pressure Mean [Right Arm] 83 Blood Pressure Position [Right Arm] Right Lateral Pulse Oximetry 97 96 Oxygen Delivery Method Room Air Room Air Sepsis Recent Fever Within 48 Hours Yes Sepsis New/Unexplained Change in Mental Status No Sepsis Action Taken by Nursing No Action Required 02/12/25 03:15 Temperature Temperature Source Pulse Rate Pulse Rate [Apical] 103 H Respiratory Rate 24 Respiratory Effort / Characteristics Spontaneous Respiratory Depth Normal Respiratory Pattern Regular Blood Pressure [Right Arm] 111/68 Blood Pressure Mean [Right Arm] 82 Blood Pressure Position [Right Arm] Pulse Oximetry Oxygen Delivery Method Sepsis Recent Fever Within 48 Hours Sepsis New/Unexplained Change in Mental Status Sepsis Action Taken by Nursing VITALS: Vitals are noted on the nurse's note and reviewed by myself. Vital signs tachycardic and mildly hypotensive. GENERAL: Pleasant female ill-appearing, in no acute distress, nondiaphoretic, well-developed well-nourished. SKIN: The skin was without rashes, erythema, edema, or bruising. There is no tenting of the skin. Capillary reflex less than 2 seconds. HEAD: Normocephalic atraumatic. EARS: External auditory canals clear EYES: Pupils equal round and reactive to light and accommodation. Conjunctivae without injection, sclerae without icterus. Extraocular movements intact. NOSE: Patent, no discharge. MOUTH: Mucous membranes mildly dry. Pharynx without erythema or exudate. Uvula midline. Airway patent. Tongue does not deviate. NECK: Supple without nuchal rigidity. No lymphadenopathy. No thyromegaly. Cervical spine is nontender. No JVD. HEART: Mildly tachycardic rate and rhythm LUNGS: Clear to auscultation bilaterally without wheezes, rales or rhonchi. No retractions or accessory muscle use. ABDOMEN: Positive bowel sounds x 4. Normal tympanic percussion. Soft, nontender, without masses or organomegaly. Castro sign negative. No guarding or rebound tenderness. No CVA tenderness MUSCULOSKELETAL: No muscle atrophy, erythema, or edema noted. NEURO: Patient was alert and oriented to person place and time. Normal sensation to light and sharp touch. No focal neurological deficits. Course Administered Medications Vancomycin HCl 1,750 mg/ (Sodium Chloride) 535 mls @ 200 mls/hr IV NOW ONE Stop: 02/12/25 04:32 Last Admin: 02/12/25 03:27 Dose: 200 mls/hr Documented By: BRIGHT Discontinued Medications Piperacillin Sod/Tazobactam Sod (Zosyn) 4.5 gm in 100 mls @ 200 mls/hr IV NOW ONE; Protocol Stop: 02/12/25 02:16 Last Admin: 02/12/25 03:31 Dose: 200 mls/hr Documented By: BRIGHT Medical Decision Making Medical Records Attestation: I reviewed the patient's medical records. Home Medications Current Medication List: was personally reviewed by me Laboratory Data Attestation: I reviewed the patient's lab results. 02/12/25 02:03 02/12/25 02:03 Lab Results 02/12/25 02/12/25 Range/Units 02:03 03:33 WBC 3.73 L (4.8-10.8) K/ul RBC 3.27 L (4.20-5.40) M/uL Hgb 10.3 L (12.0-16.0) g/dl Hct 30.0 L (37.0-47.0) % MCV 91.7 (80.0-100.0) fL MCH 31.5 (25.0-34.0) pg MCHC 34.3 (32.0-36.0) g/dL RDW Std Deviation 37.9 (36.4-46.3) fL RDW Coeff of Kaery 11.2 L (11.5-14.5) % Plt Count 92 L (130-400) K/uL MPV 9.8 (9.4-12.4) fL Immature Gran % (Auto) 0.3 % Neut % (Auto) 62.7 % Lymph % (Auto) 17.2 % Murray % (Auto) 15.5 % Eos % (Auto) 4.0 % Baso % (Auto) 0.3 % Neut # (Auto) 2.34 (1.40-6.50) K/uL Lymph # (Auto) 0.64 L (1.20-3.40) K/uL Murray # (Auto) 0.58 (0.11-0.59) K/uL Eos # (Auto) 0.15 (0.00-0.50) K/uL Baso # (Auto) 0.01 (0.00-0.20) K/uL Immature Gran # (Auto) 0.01 (0.01-0.20) K/uL VBG pH 7.48 H (7.36-7.41) VBG pCO2 34 L (38-50) mmHg VBG pO2 47 mmHg VBG HCO3 25 mmol/L VBG O2 Saturation 80.1 % VBG Base Excess 2.2 mEq/L Sodium 134 L (136-145) mmol/L Potassium 3.3 L (3.5-5.1) mmol/L Chloride 103 (98-107) mmol/L Carbon Dioxide 23 (21-32) mmol/L Anion Gap 8 (3-11) BUN 11 (6-23) mg/dl Creatinine 0.89 (0.6-1.2) mg/dl Est Cr Clr Drug Dosing 108.7 ml/min eGFR 89.39 BUN/Creatinine Ratio 12.4 (10-20) Glucose 87 (70-99(Fasting)) mg/dl Lactate 0.3 L (0.4-2.0) mmol/L Calcium 8.8 (8.6-10.3) mg/dl Magnesium 1.3 L (1.7-2.4) mg/dl Total Bilirubin 0.6 (0.2-1.0) mg/dl Direct Bilirubin 0.1 (0-0.2) mg/dl AST 13 (13-39) U/L ALT 10 (7-52) U/L Alkaline Phosphatase 63 (34-104) U/L Troponin I High Sens 11.0 (0-14) pg/ml Total Protein 6.3 (6.0-8.3) gm/dl Albumin 3.8 (3.4-5.0) gm/dl HCG, Qual Negative (Negative) Adenovirus (PCR) Not Detected (NotDetected) B. pertussis DNA (PCR) Not Detected (NotDetected) B.parapertussis DNA PCR Not Detected (NotDetected) C. pneumoniae DNA (PCR) Not Detected (NotDetected) Coronavirus OC43 (PCR) Not Detected (NotDetected) Coronavirus HKU1 (PCR) Not Detected (NotDetected) Coronavirus 229E (PCR) Not Detected (NotDetected) SARS-CoV-2 (PCR) Not Detected (NotDetected) Coronavirus NL63 (PCR) Not Detected (NotDetected) Human Metapneumovir PCR Not Detected (NotDetected) Influenza Type A (PCR) Not Detected (NotDetected) Influenza Type B (PCR) Not Detected (NotDetected) M. pneumoniae (PCR) Not Detected (NotDetected) Parainfluenza 1 (PCR) Not Detected (NotDetected) Parainfluenza 2 (PCR) Not Detected (NotDetected) Parainfluenza 3 (PCR) Not Detected (NotDetected) Parainfluenza 4 (PCR) Not Detected (NotDetected) RSV (PCR) Not Detected (NotDetected) Entero/Rhino (PCR) Not Detected (NotDetected) Imaging Data Attestation: I personally reviewed and interpreted this imaging study as follows: Radiologist's Impression: Chest X-Ray 02/12/25 01:46 EXAM: XR chest 1V portable CLINICAL HISTORY: Sepsis. TECHNIQUE: An X-ray image of the chest is obtained in AP projection. COMPARISON: 10/31/2024, CT Chest. FINDINGS: Pulmonary Parenchyma: Chest leads are identified Port-A-Cath is identified with tip seen at the cavoatrial junction Lungs are clear bilaterally. No evidence of consolidation, collapse, or focal opacities. No pulmonary nodules are identified. No evidence of pleural effusion or pleural thickening. Heart and Mediastinum: Heart size and shape are normal. No mediastinal widening or masses. No hilar or mediastinal lymphadenopathy. Bony Thorax: Bony thorax appears intact without fractures or deformities. Soft Tissues: Soft tissues overlying the chest wall are unremarkable. A density is seen projecting over the thoracic spine likely artifact Bilateral rounded denisties projecting over lower film. IMPRESSION: 1. Port-A-Cath is in position 2. No evidence of consolidation/collapse 3. No pleural effusion is identified bilaterally. 4. No significant interval changes seen Electronically signed by Cale aFm 02-12-2025 02:44 AM MDM Narrative Prior records/ancillary studies reviewed. Triage Nursing notes reviewed. Additional history obtained from family. The patient's history was concerning for fever. Differential diagnosis: Etiologies such as viral syndrome, otitis, pharyngitis, pneumonia, influenza, meningitis, urinary tract infection, sepsis, bacteremia, as well as others were entertained. Physical examination: As above ER treatment provided: An order was placed for continuous cardiac monitoring. The monitor shows a rate of 60-1 20 with a sinus rhythm per my interpretation. IV fluids, Zosyn and vancomycin were ordered Solu-Cortef for adrenal insufficiency On reassessment the patient felt better. Diagnostics interpreted by me: ECG: Ordered for weakness EKG: Normal sinus, normal intervals, Q waves in the inferior leads, rate of 92. Impression normal sinus rhythm independently interpreted by myself The labs Independently Interpreted by myself revealed anemia, negative lactic. Blood cultures pending Imaging studies: Images reviewed and read by radiology Consultation: A consultation was placed with hospitalist. The case was discussed and diagnostics were reviewed. The patient was evaluated in the ER for further treatment. This appears to be consistent with fever in a patient with adrenal insufficiency and breast cancer. Patient started on broad-spectrum antibiotics. She was given Solu-Cortef. She was hydrated as above. Medicine was consulted case discussed. She will be evaluated for admission. By the evaluation outlined above emergent etiologies such as otitis, pharyngitis, pneumonia, meningitis, sepsis, bacteremia, as well as others were deemed relatively unlikely. The pt informed about the findings as listed above. All questions were answered and pleased with the treatment. The chart was completed utilizing [employer] Speech voice recognition software. Grammatical errors, random word insertions, pronoun errors, and incomplete sentences are an occassional consequence of this system due to software limitations, ambient noise, and hardware issues. Any formal questions or concerns about the content, text, or information contained within the body of this dictation should be directly addressed to the physician pediatric assistant for clarification. Impression & Plan Fever, Hypomagnesemia, Adrenal insufficiency, Breast cancer Discharge Plan Visit Data Chief Complaint: Fever Stated Complaint: FEVER OF 103,CANCER PATIENT ED Provider: Yara Miller ED Midlevel Provider: Anne Jaime Discharge Problem: Fever, Hypomagnesemia, Adrenal insufficiency, Breast cancer Patient Disposition: Admitted As Inpatient Condition: Good Forms Stand Alone Forms: NeurOp Prescriptions Prescriptions: No Action lorazepam 1 mg tablet 1 mg PO TID PRN (Reason: Anxiety) fluoxetine 20 mg capsule 20 mg PO QAM loperamide 2 mg Capsule 2 mg PO Q6H PRN (Reason: loose stool) Qty: 30 0RF metronidazole 500 mg Tablet 500 mg PO BID Qty: 17 0RF hydrocortisone 5 mg tablet 10 mg PO . EVERY AFTERNOON Qty: 60 0RF hydrocortisone 10 mg tablet 30 mg PO QAM Qty: 90 0RF ondansetron HCl 8 mg tablet 8 mg PO Q8H PRN (Reason: Nausea And Vomiting) olanzapine 5 mg tablet 5 - 10 mg PO HS PRN (Reason: Insomnia/Nausea) gabapentin 100 mg Capsule 100 mg PO HS Qty: 30 0RF magnesium chloride [Mag 64] 64 mg Tablet,Delayed Release (Dr/Ec) 64 mg PO BID Qty: 60 0RF Referrals Referrals: Malinda Owens CRNP [Primary Care Provider] - Discharge Problem: Fever Qualifiers: Fever type: unspecified Qualified Code(s): R50.9 - Fever, unspecified
[2025-02-12 03:23] LABS: Base Excess VBG 2.2 mEq/L; HCO3 VBG 25 mmol/L; Oxygen Saturation VBG 80.1 %; PCO2 VBG 34 mmHg (38-50); PO2 VBG 47 mmHg; pH VBG 7.48 (7.36-7.41)
[2025-02-12 03:27] LABS: Alanine Aminotransferase 10.0 U/L (7-52); Alkaline Phosphatase 63.0 U/L (34-104); Calcium 8.8 mg/dl (8.6-10.3); Creatinine Clr Calc Pharmacy 108.7 ml/min; Glucose 87.0 mg/dl (70-99(Fasting)); Magnesium 1.3 mg/dl (1.7-2.4); Potassium 3.3 mmol/L (3.5-5.1)
[2025-02-12] MEDS: VANCOMYCIN HCL 1,750 MG in SODIUM CHLORIDE 0.9% 500 ML IV ONE (03:27)
[2025-02-12 03:30] LABS: Pregnancy Test, Serum Negative (Negative)
[2025-02-12] MEDS: PIPERACILLIN/TAZOBACTAM 4.5 GM/100 ML BAG IV ONE (03:31)
[2025-02-12 03:33] LABS: Chlamydia pneumoniae PCR Not Detected (NotDetected); Coronavirus 229E PCR Not Detected (NotDetected); Coronavirus CoV-2 (COVID19)PCR Not Detected (NotDetected); Coronavirus HKU1 PCR Not Detected (NotDetected); Coronavirus NL63 PCR Not Detected (NotDetected); Coronavirus OC43PCR Not Detected (NotDetected); Human Metapneumovirus PCR Not Detected (NotDetected); Parainfluenza Virus 1 PCR Not Detected (NotDetected); Parainfluenza Virus 2 PCR Not Detected (NotDetected); Parainfluenza Virus 3 PCR Not Detected (NotDetected); Parainfluenza Virus 4 PCR Not Detected (NotDetected); Respiratory Syncytial VirusPCR Not Detected (NotDetected); Rhinovirus/Enterovirus PCR Not Detected (NotDetected)
--- NOTE | 2025-02-12 03:39 | XRay Report ---
EXAM: XR chest 1V portable CLINICAL HISTORY: Sepsis. TECHNIQUE: An X-ray image of the chest is obtained in AP projection. COMPARISON: 10/31/2024, CT Chest. FINDINGS: Pulmonary Parenchyma: Chest leads are identified Port-A-Cath is identified with tip seen at the cavoatrial junction Lungs are clear bilaterally. No evidence of consolidation, collapse, or focal opacities. No pulmonary nodules are identified. No evidence of pleural effusion or pleural thickening. Heart and Mediastinum: Heart size and shape are normal. No mediastinal widening or masses. No hilar or mediastinal lymphadenopathy. Bony Thorax: Bony thorax appears intact without fractures or deformities. Soft Tissues: Soft tissues overlying the chest wall are unremarkable. A density is seen projecting over the thoracic spine likely artifact Bilateral rounded denisties projecting over lower film. IMPRESSION: 1. Port-A-Cath is in position 2. No evidence of consolidation/collapse 3. No pleural effusion is identified bilaterally. 4. No significant interval changes seen Electronically signed by Cale Fam 02-12-2025 02:44 AM
[2025-02-12 03:42] LABS: Hematocrit (blood only) 30.0 % (37.0-47.0); Hemoglobin 10.3 g/dl (12.0-16.0); Immature Granulocytes # (auto) 0.01 K/uL (0.01-0.20); Immature Granulocytes % (auto) 0.3 %; Mean Corpuscular Hemoglobin 31.5 pg (25.0-34.0); Mean Corpuscular Volume 91.7 fL (80.0-100.0); Platelet Count 92 K/uL (130-400); RDW Standard Deviation 37.9 fL (36.4-46.3); Red Blood Count 3.27 M/uL (4.20-5.40); White Blood Count 3.73 K/ul (4.8-10.8)
[2025-02-12] MEDS: SODIUM CHLORIDE 0.9% 1,000 ML IV SCH ×2 (03:56→07:53)
[2025-02-12] MEDS: HYDROCORTISONE SOD SUCCINATE 100 MG/2 ML VIAL ONE (03:56)
[2025-02-12] MEDS: SODIUM CHLORIDE 0.9% 500 ML IV ONE (03:56)
[2025-02-12] MEDS: ONDANSETRON INJ 2 MG/ML 2 ML VIAL ONE (03:57)
[2025-02-12] MEDS: POTASSIUM CHLORIDE CRTAB 20 MEQ TABCR PO STA (04:24)
[2025-02-12] MEDS: MAGNESIUM SULFATE / D5W 1 GM/100 ML BAG IV SCH (04:25)
[2025-02-12 05:28] LABS: Anion Gap 10.0 (3-11); Bilirubin,Total 0.5 mg/dl (0.2-1.0); Blood Urea Nitrogen 12.0 mg/dl (6-23); Carbon Dioxide 21.0 mmol/L (21-32); Chloride 102.0 mmol/L (98-107); Sodium 133.0 mmol/L (136-145); Total Protein 6.4 gm/dl (6.0-8.3)
[2025-02-12] MEDS: MAGNESIUM SULFATE / D5W 1 GM/100 ML BAG IV ONE (05:34)
--- NOTE | 2025-02-12 05:47 | History & Physical Report ---
Date of Service February 12, 2025 Assessment & Plan (1) Fever: Plan: 29-year-old female with past medical history significant for left triple negative breast cancer diagnosed in March 2024 s/p chemo and bilateral mastectomy and last chemo was in October 2024, on hydrocortisone for adrenal insufficiency, depression and anxiety comes because of fevers. Patient started having fevers 103 F yesterday. Tonight night she also had some diarrhea with black stools. Micturating okay. When she came in she was nauseous and shortness of breath which have improved. Has some headache. No neck pain. No back pain. No chest pains. No cough. No runny nose or sore throat. No abdominal pain. Denies any tick bites. No rash. Currently resting comfortably and hemodynamically stable. Patient states recently she had breast reconstruction surgery at [place]. Fevers 103 F at home Will follow blood cultures Will follow UA Will follow tick studies ER empirically give Vanco and Zosyn which will be continued for now IV fluids Recently had a breast reconstruction surgery. No erythema seen Close monitor Triple negative breast cancer Left breast Status post neoadjuvant chemotherapy Last chemo was in October 2024 Was on Keytruda but was discontinued due to endocrinopathies and last treatment with Keytruda on 09/18/2024 Status post bilateral mastectomies and left sentinel node biopsy with complete pathological response, no residual malignancy, sentinel lymph node negative for metastatic disease. Surgery done at [facility] Currently under observation Recently had a breast reconstruction surgery at [place] per patient Follows with heme-onc Depression and anxiety Continue fluoxetine Adrenal insufficiency Will hold home p.o. hydrocortisone IV hydrocortisone 100 mg 3 times daily for now Pancytopenia WBC 3.7 Hemoglobin 10.3 Platelets 92 Possibly from cancer and chemo Will follow repeat labs Will follow stool for Hemoccult as patient complains of black stools and iv ppi for now Hypomagnesia and hypokalemia Will replace Follow repeat labs DVT prophylaxis SCDs Disposition Med/telemetry Full code. History of Present Illness Chief Complaint: Fevers Primary Care Provider: AD Lee 29-year-old female with past medical history significant for left triple negative breast cancer diagnosed in March 2024 s/p chemo and bilateral mastectomy and last chemo was in October 2024, on hydrocortisone for adrenal insufficiency, depression and anxiety comes because of fevers. Patient started having fevers 103 F yesterday. Tonight night she also had some diarrhea with black stools. Micturating okay. When she came in she was nauseous and shortness of breath which have improved. Has some headache. No neck pain. No back pain. No chest pains. No cough. No runny nose or sore throat. No abdominal pain. Denies any tick bites. No rash. Currently resting comfortably and hemodynamically stable. Patient states recently she had breast reconstruction surgery at [place]. Past medical history. As mentioned above. Past surgical history. Dental surgery. ERCP. Cholecystectomy. Left breast biopsy. Bilateral mastectomy. Social history. . No smoking. No alcohol use. No drug use. Family history. Father alcoholism. Diabetes. Paternal grandfather had heart attack. Maternal grandmother had colon cancer. Maternal aunt had breast cancer. Allergies Allergy/AdvReac Type Severity Reaction Status Date / Time No Known Allergies Allergy Verified 10/06/24 12:13 Home Medications Medication Instructions Recorded Confirmed Type fluoxetine 40 mg capsule 40 mg PO DAILY 02/12/25 02/12/25 History gabapentin 100 mg capsule 100 mg PO HS PRN Pain 02/12/25 02/12/25 History hydrocortisone 10 mg tablet 10 mg PO UD 02/12/25 02/12/25 History hydrocortisone 20 mg tablet 20 mg PO UD 02/12/25 02/12/25 History Past Med/Surg History Problem List (Updated 02/12/25 @ 03:54 by Anne Jaime PA-C) Breast cancer (Acute) Adrenal insufficiency (Acute) Hypomagnesemia (Acute) Fever (Acute) Labial lesion Primary adrenal insufficiency Hypotension Anemia Thrombocytopenia Hypomagnesemia (Acute) Immunosuppressed due to chemotherapy (Acute) Triple negative breast cancer (Acute) Febrile neutropenia (Acute) Cholelithiasis Anemia, No significant past medical history Medical History Restless leg syndrome Bradycardia normally runs in 50's History of COVID-19 (2019) no hosp; resolved Hx gestational diabetes History of anemia Mother currently breast-feeding Surgical History [place] teeth removed Family History Other No family history of adverse response to anesthesia Social History Smoking Status: Never smoker Second Hand Exposure: No; Do You Dip or Chew Tobacco: No; Hx Alcohol Use: No Hx Substance Use: No Preferred Language: Romansh Communication Ability: Effective 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 ENT- oropharynx clear Neck- supple, no JVD. Lungs- clear to auscultation no wheezing or crackles. Heart- regular rhythm; no murmur, no gallop. Breasts. No erythema seen Abdomen- normal bowel sounds, soft, nontender, no distension Extremities- no pretibial edema, no erythema seen Neuro- alert, oriented x 3; PERRL, no facial palsy; no dysarthria; moves extremities Results & Data Results & Data Vital Signs (Past 12 Hours) Vital Signs Temp Pulse Pulse Resp BP Pulse Ox O2 Del Method 02/12/25 04:31 102 H 23 104/59 L 95 Room Air 02/12/25 03:15 103 H 24 111/68 02/12/25 01:52 91 H 02/12/25 01:51 102 H 21 97/76 L 96 Room Air 02/12/25 01:26 36.9 C 117 H 24 97 Room Air Diagnostic Findings Laboratory Results WBC 3.73 K/ul (4.8-10.8) L 02/12/25 02:03 RBC 3.27 M/uL (4.20-5.40) L 02/12/25 02:03 Hgb 10.3 g/dl (12.0-16.0) L 02/12/25 02:03 Hct 30.0 % (37.0-47.0) L 02/12/25 02:03 MCV 91.7 fL (80.0-100.0) 02/12/25 02:03 MCH 31.5 pg (25.0-34.0) 02/12/25 02:03 MCHC 34.3 g/dL (32.0-36.0) 02/12/25 02:03 RDW Std Deviation 37.9 fL (36.4-46.3) 02/12/25 02:03 RDW Coeff of Karey 11.2 % (11.5-14.5) L 02/12/25 02:03 Plt Count 92 K/uL (130-400) L 02/12/25 02:03 MPV 9.8 fL (9.4-12.4) 02/12/25 02:03 Immature Gran % (Auto) 0.3 % 02/12/25 02:03 Neut % (Auto) 62.7 % 02/12/25 02:03 Lymph % (Auto) 17.2 % 02/12/25 02:03 Conway % (Auto) 15.5 % 02/12/25 02:03 Eos % (Auto) 4.0 % 02/12/25 02:03 Baso % (Auto) 0.3 % 02/12/25 02:03 Neut # (Auto) 2.34 K/uL (1.40-6.50) 02/12/25 02:03 Lymph # (Auto) 0.64 K/uL (1.20-3.40) L 02/12/25 02:03 Conway # (Auto) 0.58 K/uL (0.11-0.59) 02/12/25 02:03 Eos # (Auto) 0.15 K/uL (0.00-0.50) 02/12/25 02:03 Baso # (Auto) 0.01 K/uL (0.00-0.20) 02/12/25 02:03 Immature Gran # (Auto) 0.01 K/uL (0.01-0.20) 02/12/25 02:03 VBG pH 7.48 (7.36-7.41) H 02/12/25 02:03 VBG pCO2 34 mmHg (38-50) L 02/12/25 02:03 VBG pO2 47 mmHg 02/12/25 02:03 VBG HCO3 25 mmol/L 02/12/25 02:03 VBG O2 Saturation 80.1 % 02/12/25 02:03 VBG Base Excess 2.2 mEq/L 02/12/25 02:03 Sodium 133 mmol/L (136-145) L 02/12/25 02:03 Potassium 3.3 mmol/L (3.5-5.1) L 02/12/25 02:03 Chloride 102 mmol/L (98-107) 02/12/25 02:03 Carbon Dioxide 21 mmol/L (21-32) 02/12/25 02:03 Anion Gap 10 (3-11) 02/12/25 02:03 BUN 12 mg/dl (6-23) 02/12/25 02:03 Creatinine 0.86 mg/dl (0.6-1.2) 02/12/25 02:03 Est Cr Clr Drug Dosing 108.7 ml/min 02/12/25 02:03 eGFR 93.14 02/12/25 02:03 BUN/Creatinine Ratio 14.0 (10-20) 02/12/25 02:03 Glucose 87 mg/dl (70-99(Fasting)) 02/12/25 02:03 Lactate 0.3 mmol/L (0.4-2.0) L 02/12/25 02:03 Calcium 8.8 mg/dl (8.6-10.3) 02/12/25 02:03 Magnesium 1.3 mg/dl (1.7-2.4) L 02/12/25 02:03 Total Bilirubin 0.5 mg/dl (0.2-1.0) 02/12/25 02:03 Direct Bilirubin 0.1 mg/dl (0-0.2) 02/12/25 02:03 AST 13 U/L (13-39) 02/12/25 02:03 ALT 10 U/L (7-52) 02/12/25 02:03 Alkaline Phosphatase 63 U/L (34-104) 02/12/25 02:03 Troponin I High Sens 10.6 pg/ml (0-14) 02/12/25 02:03 Total Protein 6.4 gm/dl (6.0-8.3) 02/12/25 02:03 Albumin 3.9 gm/dl (3.4-5.0) 02/12/25 02:03 Procalcitonin 0.06 ng/ml (0-0.5) 02/12/25 02:03 HCG, Qual Negative (Negative) 02/12/25 02:03 Adenovirus (PCR) Not Detected (NotDetected) 02/12/25 03:33 B. pertussis DNA (PCR) Not Detected (NotDetected) 02/12/25 03:33 B.parapertussis DNA PCR Not Detected (NotDetected) 02/12/25 03:33 C. pneumoniae DNA (PCR) Not Detected (NotDetected) 02/12/25 03:33 Coronavirus OC43 (PCR) Not Detected (NotDetected) 02/12/25 03:33 Coronavirus HKU1 (PCR) Not Detected (NotDetected) 02/12/25 03:33 Coronavirus 229E (PCR) Not Detected (NotDetected) 02/12/25 03:33 SARS-CoV-2 (PCR) Not Detected (NotDetected) 02/12/25 03:33 Coronavirus NL63 (PCR) Not Detected (NotDetected) 02/12/25 03:33 Human Metapneumovir PCR Not Detected (NotDetected) 02/12/25 03:33 Influenza Type A (PCR) Not Detected (NotDetected) 02/12/25 03:33 Influenza Type B (PCR) Not Detected (NotDetected) 02/12/25 03:33 M. pneumoniae (PCR) Not Detected (NotDetected) 02/12/25 03:33 Parainfluenza 1 (PCR) Not Detected (NotDetected) 02/12/25 03:33 Parainfluenza 2 (PCR) Not Detected (NotDetected) 02/12/25 03:33 Parainfluenza 3 (PCR) Not Detected (NotDetected) 02/12/25 03:33 Parainfluenza 4 (PCR) Not Detected (NotDetected) 02/12/25 03:33 RSV (PCR) Not Detected (NotDetected) 02/12/25 03:33 Entero/Rhino (PCR) Not Detected (NotDetected) 02/12/25 03:33 Impressions Chest X-Ray 02/12/25 01:46 EXAM: XR chest 1V portable CLINICAL HISTORY: Sepsis. TECHNIQUE: An X-ray image of the chest is obtained in AP projection. COMPARISON: 10/31/2024, CT Chest. FINDINGS: Pulmonary Parenchyma: Chest leads are identified Port-A-Cath is identified with tip seen at the cavoatrial junction Lungs are clear bilaterally. No evidence of consolidation, collapse, or focal opacities. No pulmonary nodules are identified. No evidence of pleural effusion or pleural thickening. Heart and Mediastinum: Heart size and shape are normal. No mediastinal widening or masses. No hilar or mediastinal lymphadenopathy. Bony Thorax: Bony thorax appears intact without fractures or deformities. Soft Tissues: Soft tissues overlying the chest wall are unremarkable. A density is seen projecting over the thoracic spine likely artifact Bilateral rounded denisties projecting over lower film. IMPRESSION: 1. Port-A-Cath is in position 2. No evidence of consolidation/collapse 3. No pleural effusion is identified bilaterally. 4. No significant interval changes seen Electronically signed by Cale Fam 02-12-2025 02:44 AM Code Status & VTE Plan VTE Prophylaxis Plan VTE Prophylaxis will be ordered: Yes (1) Fever Fever type: unspecified Qualified Code(s): R50.9 - Fever, unspecified
[2025-02-12] MEDS ORDERED: ACETAMINOPHEN 325 MG TAB PO PRN (06:22)
[2025-02-12 06:25] LABS: Appearance Urine Clear (Clear); Bacteria Urine Automated 2+ (None Seen); Cast Urine Automated 0-2 /lpf (0-2); Epithelial Cell Urine Auto 0-2 /hpf (0-2); Glucose Urine UA Negative (Negative); RBC Urine Automated 0-2 /hpf (0-2)
[2025-02-12] MEDS: HYDROCORTISONE SOD 100 MG in SYRINGE 0 ML IV SCH (08:47)
[2025-02-12] MEDS: PIPERACILLIN/TAZOBACTAM 4.5 GM/100 ML BAG IV SCH (08:47)
[2025-02-12] MEDS: PANTOprazole 40 MG/10 ML SYR IV SCH (08:47)
[2025-02-12 08:57] LABS: Lyme Screen Rflx Confirmation Positive (Negative)
[2025-02-12] MEDS ORDERED: HYDROCORTISONE SOD SUCCINATE 100 MG/2 ML VIAL IV SCH (09:00)
--- NOTE | 2025-02-12 09:30 | Communication Note ---
Date of Service: February 12, 2025 Patient seen and examined this morning Reported fever of 103 and chills that started yesterday Reported one episode of diarrhea with black stool and some headache Reported recent breast procedure on Sunday and will like me to contact the plastic surgeon. Patient examined with RN at bedside. at beside as well No wounds/lesions noted on breast. Surgical site healed well. CTA b/l No abd tenderness RRR Continue broad spectrum antibiotics for now Infectious workup in lab Patient provided no for Dr Wood Aranda's office ([phone]) who performed procedure on and she wanted me to update them. I called Dr Aranda's office. He was not around but I spoke with his PA Ronda who reported that patient had breast reconstruction in January [address] Naranjo, Said and got initial breast expansion on Jan 22 Dr Aranda only performed second round of breast expansion on SunFeb 10 with each side now 220cc and no further plans for further expansion except if patient desires and then she can call them prn. They had no further concerns or recommendations from their end
[2025-02-12 09:50] LABS: Lyme Ab IgG 2nd Tier Confirm Positive (Negative)
[2025-02-12 09:51] LABS: Lyme Ab IgM 2nd Tier Confirm Negative (Negative)
--- NOTE | 2025-02-12 11:55 | Pharmacy Report ---
Pharmacy PK ABX Note - Date of Service February 12, 2025 - Assessment and Plan Assessment 29 year old F receiving vancomycin and piperacillin/tazobactam for empiric coverage, possible SSTI s/p breast reconstruction surgery. Pertinent microbiologic data includes: urine and blood cultures pending. Day # 1 of antimicrobial therapy. Plan Vancomycin * Loading dose: 1750 mg IV x 1 * Maintenance dose: 1250 mg IV every 12 hours * Regimen is predicted to achieve target AUC/IZABELLA of 400-600 mg/L.hr * Random level ordered for: 02/13/2025 @1200 Pharmacy will continue to follow and will adjust dose/frequency as necessary. Thank you. Pharmacy has transitioned to AUC monitoring for vancomycin. AUC/IZABELLA is the preferred PK/PD target and is associated with decreased risk of nephrotoxicity compared to traditional trough targets.
[2025-02-12] MEDS ORDERED: VANCOMYCIN HCL 1,000 MG/270 ML BAG IV SCH (12:00)
[2025-02-12] MEDS: VANCOMYCIN HCL 1,250 MG in SODIUM CHLORIDE 0.9% 250 ML IV SCH (14:07)
[2025-02-12] MEDS: DOXYCYCLINE HYCLATE 100 MG CAP PO SCH (21:13)
[2025-02-13 05:10] LABS: Hematocrit (blood only) 26.3 % (37.0-47.0); Hemoglobin 9.0 g/dl (12.0-16.0); Immature Granulocytes # (auto) 0.00 K/uL (0.01-0.20); Immature Granulocytes % (auto) 0.0 %; Mean Corpuscular Hemoglobin 32.3 pg (25.0-34.0); Mean Corpuscular Volume 94.3 fL (80.0-100.0); Platelet Count 86 K/uL (130-400); RDW Standard Deviation 38.2 fL (36.4-46.3); Red Blood Count 2.79 M/uL (4.20-5.40); White Blood Count 2.81 K/ul (4.8-10.8)
[2025-02-13 05:32] LABS: Anion Gap 4.0 (3-11); Blood Urea Nitrogen 7.0 mg/dl (6-23); Calcium 8.2 mg/dl (8.6-10.3); Carbon Dioxide 24.0 mmol/L (21-32); Chloride 112.0 mmol/L (98-107); Creatinine Clr Calc Pharmacy 144.4 ml/min; Glucose 155.0 mg/dl (70-99(Fasting)); Magnesium 1.7 mg/dl (1.7-2.4); Potassium 3.5 mmol/L (3.5-5.1); Sodium 140.0 mmol/L (136-145)
[2025-02-13] MEDS: ONDANSETRON INJ 2 MG/ML 2 ML VIAL IV PRN (10:46)
--- NOTE | 2025-02-13 13:03 | Pharmacy Report ---
Pharmacy PK ABX Note - Date of Service February 13, 2025 - Assessment and Plan Assessment 02/13: 02/12: 29 year old F receiving vancomycin and piperacillin/tazobactam for empiric coverage, possible SSTI s/p breast reconstruction surgery. Pertinent microbiologic data includes: urine and blood cultures pending. Day # 1 of antimicrobial therapy. Plan Vancomycin * Loading dose: 1750 mg IV x 1 * Maintenance dose: 1250 mg IV every 12 hours * Regimen is predicted to achieve target AUC/IZABELLA of 400-600 mg/L.hr * Random level ordered for: 02/13/2025 @1200 Pharmacy will continue to follow and will adjust dose/frequency as necessary. Thank you. Pharmacy has transitioned to AUC monitoring for vancomycin. AUC/IZABELLA is the preferred PK/PD target and is associated with decreased risk of nephrotoxicity compared to traditional trough targets.
[2025-02-13] MEDS: VANCOMYCIN HCL 1,500 MG in SODIUM CHLORIDE 0.9% 500 ML IV SCH (13:25)
[2025-02-13] MEDS: VANCOMYCIN LEVEL ONE (14:07)
--- NOTE | 2025-02-13 14:17 | Hospitalist Progress Note ---
Date of Service February 13, 2025 Assessment & Plan (1) Fever: Plan: 29-year-old female with PMH of left triple negative breast cancer diagnosed in March 2024 s/p chemo and bilateral mastectomy and last chemo was in October 2024, on hydrocortisone for adrenal insufficiency, depression and anxiety comes because of fevers. Patient started having fevers 103 F yesterday. Tonight night she also had some diarrhea with black stools. Micturating okay. When she came in she was nauseous and shortness of breath which have improved. Has some headache. No neck pain. No back pain. No chest pains. No cough. No runny nose or sore throat. No abdominal pain. Denies any tick bites. No rash. Currently resting comfortably and hemodynamically stable. Patient states recently she had breast reconstruction surgery at [place]. Fevers 103 F at home Blood culture negative so far Urine culture prelim growing Pseudomonas Lyme IgM negative but IgG positive Patient reports she had dysuria a week ago that had resolved. She also reported a rash in her left leg recently that had resolved. Will continue zosyn for UTI Lyme test likely exposure in the past or late stage infection Will continue doxycycline MRSA screen is negative. Vancomycin discontinued for now Recently had a breast reconstruction surgery and breast expansion procedures. No sign of infection. Left Triple negative breast cancer Status post neoadjuvant chemotherapy Last chemo was in October 2024 Was on Keytruda but was discontinued due to endocrinopathies and last treatment with Keytruda on 09/18/2024 Status post bilateral mastectomies and left sentinel node biopsy with complete pathological response, no residual malignancy, sentinel lymph node negative for metastatic disease. Surgery done at [facility] Currently under observation Recently had a breast reconstruction surgery at [place] per patient Follows with heme-onc Depression and anxiety Continue fluoxetine Adrenal insufficiency Home p.o. hydrocortisone on hold Continue stress dose IV hydrocortisone 100 mg 3 times daily for now Pancytopenia Possibly from cancer and chemo Monitor Currently on IV PPI for one episode of dark stool she reported prior to admission Hypophosphatemia Replete and monitor Bradycardia Patient's HR in 40-50s She reports that this is normal for her. That she had been diagnosed with Weckenbach and had been evaluated by Cardiology in [place] She is asymptomatic Will monitor. Keep on tele DVT prophylaxis ; SCDs Code status; Full Updated patient and at bedside I spent a total of 50 minutes coordinating, documenting and providing care for this patient excluding time spent in performance of separately billed services Admission and Anticipated Discharge Date Admission Date: February 12, 2025 Subjective Patient seen and examined Reports feeling better today No fevers since admission No chills Denied other complaints on ROS Physical Exam Constitutional: + well hydrated; no acute distress Eyes: PERRL, conjunctivae normal, anicteric sclerae ENMT: external ear and nose normal, oropharynx normal Respiratory: normal respiratory effort, lungs clear to auscultation Cardiovascular: Rate/Rhythm: regular rate and + bradycardic Gastrointestinal (Abdomen): normal bowel sounds, soft, nontender, no hepatosplenomegaly Musculoskeletal: no cyanosis or clubbing, extremities motor strength 5/5 Neurologic: PERRL, EOMI, accommodation nl, no face palsy, no dysarthria Psychiatric: A+Ox3, euthymic affect Results & Data Results & Data Vital Signs (Past 12 Hours) Vital Signs Temp Pulse Pulse Resp BP Pulse Ox O2 Del Method 02/13/25 11:43 42 L 18 85/56 L 97 Room Air 02/13/25 11:42 36.6 C 55 L 20 98 02/13/25 07:45 43 L 02/13/25 07:00 36.8 C 45 L 20 116/71 98 Room Air 02/13/25 03:36 51 L 18 109/65 98 Room Air Laboratory Results Abnormal lab results 02/13/25 Range/Units 04:30 WBC 2.81 L (4.8-10.8) K/ul RBC 2.79 L (4.20-5.40) M/uL Hgb 9.0 L (12.0-16.0) g/dl Hct 26.3 L (37.0-47.0) % RDW Coeff of Karey 11.1 L (11.5-14.5) % Plt Count 86 L (130-400) K/uL Lymph # (Auto) 0.69 L (1.20-3.40) K/uL Immature Gran # (Auto) 0.00 L (0.01-0.20) K/uL Chloride 112 H (98-107) mmol/L Glucose 155 H (70-99(Fasting)) mg/dl Calcium 8.2 L (8.6-10.3) mg/dl Phosphorus 2.3 L (2.5-4.9) mg/dl (1) Fever Fever type: unspecified Qualified Code(s): R50.9 - Fever, unspecified
[2025-02-13] MEDS: POT PHOSPHATE MONOBASIC W/ SOD TAB PO ONE (15:08)
--- NOTE | 2025-02-13 22:32 | Electrocardiogram Report ---
Test Reason : Blood Pressure : */* mmHG Vent. Rate : 92 BPM Atrial Rate : 92 BPM P-R Int : 208 ms QRS Dur : 82 ms QT Int : 332 ms P-R-T Axes : -19 -9 -21 degrees QTcB Int : 410 ms Normal sinus rhythm Inferior infarct , age undetermined Abnormal ECG When compared with ECG of 31-Oct-2024 14:18, Inferior infarct is now Present Nonspecific T wave abnormality, worse in Inferior leads Confirmed by Torey Rosas ([id number]) on 02/13/2025 10:32:14 PM Referred By: REFERRED SELF Confirmed By: Torey Rosas
[2025-02-14 06:24] LABS: Hematocrit (blood only) 27.4 % (37.0-47.0); Hemoglobin 9.2 g/dl (12.0-16.0); Mean Corpuscular Hemoglobin 31.8 pg (25.0-34.0); Mean Corpuscular Volume 94.8 fL (80.0-100.0); Platelet Count 114 K/uL (130-400); RDW Standard Deviation 38.1 fL (36.4-46.3); Red Blood Count 2.89 M/uL (4.20-5.40); White Blood Count 5.61 K/ul (4.8-10.8)
[2025-02-14 06:52] LABS: Anion Gap 6.0 (3-11); Blood Urea Nitrogen 8.0 mg/dl (6-23); Calcium 8.5 mg/dl (8.6-10.3); Carbon Dioxide 25.0 mmol/L (21-32); Chloride 110.0 mmol/L (98-107); Creatinine Clr Calc Pharmacy 149.3 ml/min; Glucose 113.0 mg/dl (70-99(Fasting)); Magnesium 1.5 mg/dl (1.7-2.4); Potassium 3.1 mmol/L (3.5-5.1); Sodium 141.0 mmol/L (136-145)
[2025-02-14] MEDS: POTASSIUM CHLORIDE CRTAB 20 MEQ TABCR PO STA (08:53)
[2025-02-14] MEDS: POTASSIUM CHLORIDE / WTR 10 MEQ/100 ML PLCT IV SCH (08:54)
[2025-02-14] MEDS: MAGNESIUM SULFATE / D5W 1 GM/100 ML BAG IV SCH (08:54)
[2025-02-14] MEDS: PROCHLORPERAZINE 5 MG in SYRINGE 4 ML IV PRN (10:41)
--- NOTE | 2025-02-14 11:54 | Hospitalist Progress Note ---
Date of Service February 14, 2025 Assessment & Plan (1) Fever: Plan: 29-year-old female with PMH of left triple negative breast cancer diagnosed in March 2024 s/p chemo and bilateral mastectomy and last chemo was in October 2024, on hydrocortisone for adrenal insufficiency, depression and anxiety comes because of fevers. Patient started having fevers 103 F yesterday. Tonight night she also had some diarrhea with black stools. Micturating okay. When she came in she was nauseous and shortness of breath which have improved. Has some headache. No neck pain. No back pain. No chest pains. No cough. No runny nose or sore throat. No abdominal pain. Denies any tick bites. No rash. Currently resting comfortably and hemodynamically stable. Patient states recently she had breast reconstruction surgery at [place]. Fevers 103 F at home Blood culture negative so far Urine culture growing Pseudomonas Lyme IgM negative but IgG positive Patient reports she had dysuria a week ago that had resolved. She also reported a rash in her left leg recently that had resolved. Lyme test likely exposure in the past or late stage infection Will continue doxycycline to complete 10 day treatment Considering patient's bradycardia, will avoid fluoroquinolones and continue zosyn to complete 5 day therapy for UTI prior to dc Left Triple negative breast cancer Status post neoadjuvant chemotherapy Last chemo was in October 2024 Was on Keytruda but was discontinued due to endocrinopathies and last treatment with Keytruda on 09/18/2024 Status post bilateral mastectomies and left sentinel node biopsy with complete pathological response, no residual malignancy, sentinel lymph node negative for metastatic disease. Surgery done at [facility] Recently had a breast reconstruction surgery at [facility] per patient Follows with heme-onc Depression and anxiety Continue fluoxetine Adrenal insufficiency Home p.o. hydrocortisone was initially on hold and patient was on stress dose steroid Resume home hydrocortisone Pancytopenia Possibly from cancer and chemo Monitor Currently on IV PPI for one episode of dark stool she reported prior to admission Hypokalemia Hypomagnesemia Replete and monitor Bradycardia Patient's HR in 40-50s She reports that this is normal for her. That she had been diagnosed with Wenckebach and had been evaluated by Cardiology in [place] She is asymptomatic Will monitor. Keep on tele DVT prophylaxis ; SCDs Code status; Full Updated patient and at bedside I spent a total of 50 minutes coordinating, documenting and providing care for this patient excluding time spent in performance of separately billed services Admission and Anticipated Discharge Date Admission Date: February 12, 2025 Subjective Patient seen and examined Reports nausea this AM Denied other complaints on ROS Physical Exam Constitutional: + well hydrated; no acute distress Eyes: PERRL, conjunctivae normal, anicteric sclerae ENMT: external ear and nose normal, oropharynx normal Respiratory: normal respiratory effort, lungs clear to auscultation Cardiovascular: Rate/Rhythm: regular rate and + bradycardic Gastrointestinal (Abdomen): normal bowel sounds, soft, nontender, no hepatosplenomegaly Musculoskeletal: no cyanosis or clubbing, extremities motor strength 5/5 Neurologic: PERRL, EOMI, accommodation nl, no face palsy, no dysarthria Psychiatric: A+Ox3, euthymic affect Results & Data Results & Data Vital Signs (Past 12 Hours) Vital Signs Temp Pulse Pulse Resp BP Pulse Ox O2 Del Method 02/14/25 08:15 36.9 C 40 L 18 123/69 97 Room Air 02/14/25 07:36 34 L 02/14/25 04:00 36.7 C 42 L 18 137/80 95 Room Air (1) Fever Fever type: unspecified Qualified Code(s): R50.9 - Fever, unspecified
[2025-02-14] MEDS: HYDROCORTISONE 10 MG TAB PO SCH (15:13)
[2025-02-14] MEDS: GABAPENTIN 100 MG CAP PO PRN (20:14)
[2025-02-15 05:56] LABS: Hematocrit (blood only) 28.0 % (37.0-47.0); Hemoglobin 9.6 g/dl (12.0-16.0); Mean Corpuscular Hemoglobin 32.2 pg (25.0-34.0); Mean Corpuscular Volume 94.0 fL (80.0-100.0); Platelet Count 109 K/uL (130-400); RDW Standard Deviation 37.5 fL (36.4-46.3); Red Blood Count 2.98 M/uL (4.20-5.40); White Blood Count 4.79 K/ul (4.8-10.8)
[2025-02-15 06:14] LABS: Anion Gap 6.0 (3-11); Blood Urea Nitrogen 6.0 mg/dl (6-23); Calcium 8.8 mg/dl (8.6-10.3); Carbon Dioxide 28.0 mmol/L (21-32); Chloride 106.0 mmol/L (98-107); Creatinine Clr Calc Pharmacy 131.1 ml/min; Glucose 87.0 mg/dl (70-99(Fasting)); Magnesium 1.5 mg/dl (1.7-2.4); Potassium 3.1 mmol/L (3.5-5.1); Sodium 140.0 mmol/L (136-145)
--- NOTE | 2025-02-15 09:16 | Hospitalist Progress Note ---
Date of Service February 15, 2025 Assessment & Plan (1) Fever: Plan: 29-year-old female with PMH of left triple negative breast cancer diagnosed in March 2024 s/p chemo and bilateral mastectomy and last chemo was in October 2024, on hydrocortisone for adrenal insufficiency, depression and anxiety comes because of fevers. Patient started having fevers 103 F yesterday. Tonight night she also had some diarrhea with black stools. Micturating okay. When she came in she was nauseous and shortness of breath which have improved. Has some headache. No neck pain. No back pain. No chest pains. No cough. No runny nose or sore throat. No abdominal pain. Denies any tick bites. No rash. Currently resting comfortably and hemodynamically stable. Patient states recently she had breast reconstruction surgery at [facility]. Fevers 103 F at home Blood culture negative so far Urine culture growing Pseudomonas Lyme IgM negative but IgG positive Patient reports she had dysuria a week ago that had resolved. She also reported a rash in her left leg recently that had resolved. Lyme test likely exposure in the past or late stage infection Will continue doxycycline to complete 10 day treatment Considering patient's bradycardia, will avoid fluoroquinolones and continue zosyn to complete 5 day therapy for UTI prior to dc Left Triple negative breast cancer Status post neoadjuvant chemotherapy Last chemo was in October 2024 Was on Keytruda but was discontinued due to endocrinopathies and last treatment with Keytruda on 09/18/2024 Status post bilateral mastectomies and left sentinel node biopsy with complete pathological response, no residual malignancy, sentinel lymph node negative for metastatic disease. Surgery done at [facility] Recently had a breast reconstruction surgery at [facility] per patient Follows with heme-onc Depression and anxiety Continue fluoxetine Adrenal insufficiency Home p.o. hydrocortisone was initially on hold and patient was on stress dose steroid Now back to home hydrocortisone dose Pancytopenia Possibly from cancer and chemo Monitor Hypokalemia Hypomagnesemia Replete and monitor Bradycardia Patient's HR in 40-50s She reports that this is normal for her. That she had been diagnosed with Wenckebach and had been evaluated by Cardiology in [place] She is asymptomatic Will continue to monitor DVT prophylaxis ; SCDs Code status; Full I spent a total of 40 minutes coordinating, documenting and providing care for this patient excluding time spent in performance of separately billed services Admission and Anticipated Discharge Date Admission Date: February 12, 2025 Subjective Patient seen and examined No new complaints today Physical Exam Constitutional: + well hydrated; no acute distress Eyes: PERRL, conjunctivae normal, anicteric sclerae ENMT: external ear and nose normal, oropharynx normal Respiratory: normal respiratory effort, lungs clear to auscultation Cardiovascular: Rate/Rhythm: regular rate and + bradycardic Gastrointestinal (Abdomen): normal bowel sounds, soft, nontender, no hepatosplenomegaly Musculoskeletal: no cyanosis or clubbing, extremities motor strength 5/5 Neurologic: PERRL, EOMI, accommodation nl, no face palsy, no dysarthria Psychiatric: A+Ox3, euthymic affect Results & Data Results & Data Vital Signs (Past 12 Hours) Vital Signs Temp Pulse Pulse Resp BP Pulse Ox O2 Del Method 02/15/25 08:32 36.8 C 52 L 16 109/72 95 Room Air 02/15/25 07:26 44 L 02/15/25 03:48 36.8 C 42 L 18 122/79 93 Room Air 02/14/25 22:59 36.8 C 49 L 18 134/75 97 Room Air 02/14/25 22:17 45 L Laboratory Results Abnormal lab results 02/15/25 Range/Units 05:31 WBC 4.79 L (4.8-10.8) K/ul RBC 2.98 L (4.20-5.40) M/uL Hgb 9.6 L (12.0-16.0) g/dl Hct 28.0 L (37.0-47.0) % RDW Coeff of Karey 11.1 L (11.5-14.5) % Plt Count 109 L (130-400) K/uL Potassium 3.1 L (3.5-5.1) mmol/L BUN/Creatinine Ratio 8.1 L (10-20) Magnesium 1.5 L (1.7-2.4) mg/dl (1) Fever Fever type: unspecified Qualified Code(s): R50.9 - Fever, unspecified
[2025-02-15] MEDS: MAGNESIUM SULFATE / D5W 1 GM/100 ML BAG IV SCH (09:32)
[2025-02-15] MEDS: POTASSIUM CHLORIDE / WTR 10 MEQ/100 ML PLCT IV SCH (09:33)
[2025-02-15] MEDS: HYDROCORTISONE 10 MG TAB PO SCH (09:33)
[2025-02-15] MEDS: POTASSIUM CHLORIDE CRTAB 20 MEQ TABCR PO STA (09:39)
[2025-02-16 04:47] VITALS: RESP 16
[2025-02-16 07:19] LABS: Hematocrit (blood only) 30.7 % (37.0-47.0); Hemoglobin 10.8 g/dl (12.0-16.0); Mean Corpuscular Hemoglobin 32.4 pg (25.0-34.0); Mean Corpuscular Volume 92.2 fL (80.0-100.0); Platelet Count 141 K/uL (130-400); RDW Standard Deviation 36.4 fL (36.4-46.3); Red Blood Count 3.33 M/uL (4.20-5.40); White Blood Count 4.24 K/ul (4.8-10.8)
[2025-02-16 07:38] LABS: Anion Gap 5.0 (3-11); Blood Urea Nitrogen 10.0 mg/dl (6-23); Calcium 9.2 mg/dl (8.6-10.3); Carbon Dioxide 28.0 mmol/L (21-32); Chloride 106.0 mmol/L (98-107); Creatinine Clr Calc Pharmacy 110.3 ml/min; Glucose 78.0 mg/dl (70-99(Fasting)); Magnesium 1.7 mg/dl (1.7-2.4); Potassium 3.6 mmol/L (3.5-5.1); Sodium 139.0 mmol/L (136-145)
[2025-02-16 08:22] VITALS: BP 110/71; PULSE 46; TEMP 98.4; O2SAT 96
--- NOTE | 2025-02-16 08:53 | Discharge Summary ---
Date of Service February 16, 2025 Admission HPI Per Admitting Provider 29-year-old female with past medical history significant for left triple negative breast cancer diagnosed in March 2024 s/p chemo and bilateral mastectomy and last chemo was in October 2024, on hydrocortisone for adrenal insufficiency, depression and anxiety comes because of fevers. Patient started having fevers 103 F yesterday. Tonight night she also had some diarrhea with black stools. Micturating okay. When she came in she was nauseous and shortness of breath which have improved. Has some headache. No neck pain. No back pain. No chest pains. No cough. No runny nose or sore throat. No abdominal pain. Denies any tick bites. No rash. Currently resting comfortably and hemodynamically stable. Patient states recently she had breast reconstruction surgery at [place]. Past medical history. As mentioned above. Past surgical history. Dental surgery. ERCP. Cholecystectomy. Left breast biopsy. Bilateral mastectomy. Social history. . No smoking. No alcohol use. No drug use. Family history. Father alcoholism. Diabetes. Paternal grandfather had heart attack. Maternal grandmother had colon cancer. Maternal aunt had breast cancer. Admission Exam Per Admitting Provider General- Not in distress Head- atraumatic Eyes- PERRL. ENT- oropharynx clear Neck- supple, no JVD. Lungs- clear to auscultation no wheezing or crackles. Heart- regular rhythm; no murmur, no gallop. Breasts. No erythema seen Abdomen- normal bowel sounds, soft, nontender, no distension Extremities- no pretibial edema, no erythema seen Neuro- alert, oriented x 3; PERRL, no facial palsy; no dysarthria; moves extremities Principal Diagnosis Urinary tract infection Bradycardia Electrolyte abnormalities Possible lyme Discharge Exam Constitutional + well hydrated; no acute distress Eyes PERRL, conjunctivae normal, anicteric sclerae ENMT external ear and nose normal, oropharynx normal Respiratory normal respiratory effort, lungs clear to auscultation Cardiovascular Rate/Rhythm: + bradycardic Gastrointestinal (Abdomen) normal bowel sounds, soft, nontender, no hepatosplenomegaly Musculoskeletal no cyanosis or clubbing, extremities motor strength 5/5 Neurologic PERRL, EOMI, accommodation nl, no face palsy, no dysarthria Psychiatric A+Ox3, euthymic affect Discharge Data Allergies Allergy/AdvReac Type Severity Reaction Status Date / Time No Known Allergies Allergy Verified 10/06/24 12:13 Consultations 02/12/25 03:52 ED Decision to Admit Stat Hospital Course (1) Fever: 29-year-old female with PMH of left triple negative breast cancer diagnosed in March 2024 s/p chemo and bilateral mastectomy and last chemo was in October 2024, on hydrocortisone for adrenal insufficiency, depression and anxiety comes because of fevers. Fevers UTI Possible lymes Had fever of 103 F at home Blood culture negative so far Urine culture grew Pseudomonas Lyme IgM negative but IgG positive Patient reports she had dysuria a week ago that had resolved. She also reported a rash in her left leg recently that had resolved. Lyme test likely exposure in the past or late stage infection Patient was treated with IV zosyn for 5 days for UTI Discharged on po doxycycline to complete 10 day treatment Left Triple negative breast cancer Status post neoadjuvant chemotherapy Last chemo was in October 2024 Was on Keytruda but was discontinued due to endocrinopathies and last treatment with Keytruda on 09/18/2024 Status post bilateral mastectomies and left sentinel node biopsy with complete pathological response, no residual malignancy, sentinel lymph node negative for metastatic disease. Surgery done at [facility] Recently had a breast reconstruction surgery at [place] per patient Follows with heme-onc Depression and anxiety Continue fluoxetine Adrenal insufficiency Home p.o. hydrocortisone was initially held and patient was on stress dose steroid Now back to home hydrocortisone dose Pancytopenia Possibly from cancer and chemo Bradycardia Patient's HR in 40-50s She reports that this is normal for her. That she had been diagnosed with Wenckebach and had been evaluated by Cardiology in [place] She is asymptomatic Total Time Total Time Spent Total Time Spent (In Minutes): 35 Total Time Includes: Examination of the Patient, Discharge Planning and Medication Reconciliation Discharge Plan Discharge Items Patient Disposition: Home - Self-Care Reason For Visit: FEVER, HYPOMAGNESIA Discharge Diagnosis: Urinary tract infection Bradycardia Electrolyte abnormalities Possible lyme Condition on Discharge: Good Activity: Resume your previous activity Non-emergency contact: Primary Care Provider Call non-emergency contact if: you have any medication questions Follow-up/Referrals: Malinda Owens CRNP [Primary Care Provider] - (Date & Time 02/18/2025 1:20 PM Provider: Malinda Owens CRNP [facility] ) Diet: Regular Addtl Attending Provider Instructions: Mrs Gutierrez You were presented to the hospital with fever and was managed for the above listed diagnoses. You were treated with IV antibiotics. You are being discharged on doxycycline to complete treatment. You are being discharged home. Please ensure follow up with your Primary Doctor. It was a pleasure taking care of you. Pending Studies at Discharge: No Stand-Alone Forms: My [facility] [employer], Smoking Cessation Medications and DC Order Prescriptions: New doxycycline hyclate 100 mg Capsule 100 mg PO BID 6 Days Qty: 12 0RF Continued fluoxetine 40 mg capsule 40 mg PO DAILY hydrocortisone 20 mg tablet 20 mg PO UD Rx Instructions: Daily in AM gabapentin 100 mg capsule 100 mg PO HS PRN (Reason: Pain) hydrocortisone 10 mg tablet 10 mg PO UD Rx Instructions: daily at 3pm Discharge Orders: Discharge Order (Routine); Ordered 02/16/25 Ordered By: Monica Faulkner Admission Data Admit Date/Time: 02/12/25 05:31 Attending Provider: Monica Faulkner I. Admit Provider: Tin Potter Primary Care Provider: Malinda Owens Other Providers: Tin Potter Other Interventions: Discharge Summary Assessment (RN) Last Done: 02/16/25 09:36
[2025-02-16] MEDS: HEPARIN 100 UNIT/ML 5ML FLUSH ONE (11:13)
== END 2025-02-16 11:12 | disposition home or self-care (01) | DRG 690 ==
LOC: ED 01:22 → EDINP 05:31 → 2W 02-13 13:36